=== PATIENT | female | born 1995 | race Caucasian/White ===

== ENCOUNTER 2017-03-30 09:00 | Outpatient (RCR) | payer MEDICAID, SELFPAY ==
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
--- NOTE | 2017-03-30 11:24 | BH.MTP_ITS ---
Master Treatment Plan - Patient Information Program Physician:: Elba Wong Primary Therapist:: Rachele Rehman - Psychiatric Diagnoses Psychiatric Diagnoses:: Bipolar disorder; PTSD; Anxiety unspecified Diagnosis Code(s):: F 31.9 - Estimated LOS Estimated LOS (in weeks):: 6 Problem/Goal #1 - Problem/Goal #1 Stated Goal:: Client will increase mood stability, decrease depressive symptoms , and agitation through Intensive Outpatient Program. Description of Barriers: Client reports low energy and motivation, difficulty concentrating, and anhedonia that impacts client's mood and engagement in activities client once enjoyed. Client reports multiple stressors such as her current living situation, , and unemployment which exacerbate anxiety and depression. Additionally, client is newly sober and reports few social supports-outside of her mother- and lack of transportation. Functional Impact: Client reports her symptoms are interfering with her ability to function at her baseline as client endorses a depressed which has gotten worse over the past month with anhedonia, decreased energy, difficulty concentrating. Client reports she experiences daily irritability and feels like she is in a fog. Client reports passive suicidal thoughts, with the most recent being about two weeks ago. Client endorses anxiety, ruminations, and panic attacks associated with PTSD. Client is currently unemployed and living at [facility]. Goal Relevant Strengths/Supports: Client is currently connected with numerous supports at [facility] and is activity seeking independent housing. 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 Client presents with good insight to warning signs and triggers for depression and brayan. Client identifies her mother as a positive support and protective factor. Client reports someday she would like to return to school to work with animals which demonstrates goal and future orientation. Therapist observed client to be resilient and intelligent. - Objectives Objective #1 Stated Objective: Client will identify and replace 2-3 negative thinking patterns that exacerbate depression. Interventions: Therapist will help client gain awareness of negative thinking patterns by teaching client the common types of cognitive distortions and basics of CBT. Therapist will assist client in challenging and reframing unhelpful thinking patterns to reduce depression. Discharge Criteria: Client will have accomplished this goal when can identify and replace at least 2 negative thinking patterns and report reduced depression. Target Date: 05/11/17 Review Date: 04/27/17 Status: open Objective #2 Stated Objective: Client will identify 2-3 physical warning signs of anger and 3 ways to calm and manage anger. Interventions: Therapist will help client gain awareness of anger warning signs and triggers by exploring physiological and psychological symptoms. Therapist will educate client on the connection between thoughts, emotions, and behaviors. Therapist will teach client coping strategies including thought challenge and calming techniques. Discharge Criteria: Client will have met this goal when can report at least 2 warning signs for anger and 3 coping skills to regulate anger. Target Date: 05/11/17 Review Date: 05/11/17 Status: open Problem/Goal #2 - Problem/Goal #2 Stated Goal:: Client will reduce overall frequency, intensity, and duration of anxiety so that daily functioning is not impaired. Description of Barriers: Client reports low energy and motivation, difficulty concentrating, and anhedonia that impacts client's mood and engagement in activities client once enjoyed. Client reports multiple stressors such as her current living situation, , and unemployment which exacerbate anxiety and depression. Additionally, client is newly sober and reports few social supports-outside of her mother- and lack of transportation. Functional Impact: Client reports her symptoms are interfering with her ability to function at her baseline as client endorses a depressed which has gotten worse over the past month with anhedonia, decreased energy, difficulty concentrating. Client reports she experiences daily irritability and feels like she is in a fog. Client reports passive suicidal thoughts, with the most recent being about two weeks ago. Client endorses anxiety, ruminations, and panic attacks associated with PTSD. Client is currently unemployed and living at [facility]. Goal Relevant Strengths/Supports: Client is currently connected with numerous supports at [facility] and is activity seeking independent housing. 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 Client presents with good insight to warning signs and triggers for depression and brayan. Client identifies her mother as a positive support and protective factor. Client reports someday she would like to return to school to work with animals which demonstrates goal and future orientation. Therapist observed client to be resilient and intelligent. - Objectives Objective #1 Stated Objective: Client will identify 2-3 anxiety triggers and warning signs and 2 coping skills to use when feeling anxious. Interventions: Therapist will encourage client to use self-awareness strategies to gain insight to warning signs and triggers. Therapist will teach client calming, CBT, and solution-focused strategies to reduce anxiety and challenge ruminative thoughts. Discharge Criteria: Client will have met this goal when can identify at least 2 triggers or warning signs and 2 ways to cope with anxiety Target Date: 05/11/17 Review Date: 04/27/17 Status: open
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
--- NOTE | 2017-03-30 15:13 | BH.SGPN ---
Service Group Progress Note - Session Psychotherapy Session #2 Date Open:: 03/30/17 Time Started:: 10:15 Time Stopped:: 11:10 Targeted Problem #:: 1 Type of Group:: Illness Management Goal of Group:: The goal of group was to identify a goal for the weekend, explore the potential barriers to achieving that set goal, and identify strategies to overcome barriers. Eye Contact:: Fair Motor Activity:: Restless Appearance:: Casual Speech:: Appropriate Mood:: Anxious, Irritable, Depressed Affect:: Constricted Thoughts:: Linear, Logical, No evidence of hallucinations/delusions noted Staff Interventions:: Therapist facilitated group activity in which group members identified a goal to work on over the next week. Therapist asked group members to identify barriers to achieving identified goal and strategies to help them achieve their goal. Therapist led group in processing their goal maps, assisting clients with establishing SMART goals. Therapist provided support by using reflective listening. Psychotherapy Session #3 Date Open:: 03/30/17 Time Started:: 11:20 Time Stopped:: 12:15 Targeted Problem #:: 1 Type of Group:: Functional Skills Development Goal of Group:: The goal of group was to identify a goal for the weekend, explore the potential barriers to achieving that set goal, and identify strategies to overcome barriers. Eye Contact:: Fair Motor Activity:: Appropriate Appearance:: Casual Speech:: Appropriate Mood:: Anxious, Irritable, Depressed Affect:: Constricted Thoughts:: Linear, Logical, No evidence of hallucinations/delusions noted Staff Interventions:: Therapist facilitated group activity in which group members identified a goal to work on over the next week. Therapist asked group members to identify barriers to achieving identified goal and strategies to help them achieve their goal. Therapist led group in processing their goal maps, assisting clients with establishing SMART goals. Therapist provided support by using reflective listening.
--- NOTE | 2017-03-31 10:35 | BH.COMM ---
Communication Note - Communication with Client Communication Note: This therapist received a return phone call from client as she no called no showed for IOP today. Client reported she missed group due to client oversleeping and feeling ill. Client stated she will be at [facility] on 03/31/17. Client unable to see [facility] psychiatrist today as client did not show for scheduled session.
--- NOTE | 2017-04-03 15:21 | BH.COMM ---
Communication Note - Communication with Client Communication Note: This therapist received a phone call from client in which client cancelled her IOP appointment today. Client reported she has pneumonia and will be spending the day resting. Client to follow up with therapist later this week to provide updates on client's well-being and scheduling for IOP.
--- NOTE | 2017-04-06 15:22 | BH.COMM ---
Communication Note - Communication with Client Communication Note: This therapist received a phone call from client in which client reported a new stressor which impacts client's treatment and medications. Therapist provided emotional validation and support and encouraged client to attend IOP tomorrow to meet with AC to follow up on medication issues and concerns. Client agreed to attend group on 04/07/17.
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
--- NOTE | 2017-04-07 14:06 | BH.DR.ITP ---
Initial Treatment Plan - Patient Information Visit Information: ADMISSION DATE: EXPECTED LOS: 4-6 weeks Diagnoses:: Bipolar disorder F 31.9 - Problems/Symptoms Symptom:: Mood instability Symptom:: Depression, decreased energy, biologic disruption of sleep and appetite, suicidal ideation Problem #2:: Anxiety Symptom:: Rumination, hypervigilance, intrusive traumatic memories,
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
--- NOTE | 2017-04-10 10:01 | BH.COMM ---
Communication Note - Communication with Client Communication Note: This therapist called client as she no called/no showed for IOP today. Client reported she went out of town this weekend and forgot to call to cancel for today. Client to follow up with therapist tomorrow on scheduling for the week.
--- NOTE | 2017-04-11 12:35 | BH.COMM ---
Communication Note - Communication with Client Communication Note: This therapist spoke with client on the phone to discuss IOP scheduling for the week. Client shared she plans to be back to IOP this and Monday04/13/17 and 04/14/17. Client reported she would like to touch base on community resources when she returns.
[2017-06-16 14:39] VITALS: BP 98/56; PULSE 62; RESP 14; TEMP 36.8
== END 2017-04-12 23:59 ==
LOC: BHIOP 09:00
PROVIDERS: Family Provider Internal Medicine; PCP Internal Medicine; Visit Provider Psychiatry & Neurology Psychiatry
DX: F31.9 Bipolar disorder, unspecified (principal); F43.10 Post-traumatic stress disorder, unspecified; F41.9 Anxiety disorder, unspecified; F11.21 Opioid dependence, in remission; F10.21 Alcohol dependence, in remission; F17.210 Nicotine dependence, cigarettes, uncomplicated; Z79.899 Other long term (current) drug therapy; R45.851 Suicidal ideations
CPT/HCPCS: 99204; H0035; H2012; T1002; 90834

== ENCOUNTER 2017-04-13 09:00 | Outpatient (RCR) | payer MEDICAID, SELFPAY ==
[2016-12-07 12:11] VITALS: BMI 20.4
[2016-12-07 17:06] VITALS: BP 104/66
--- NOTE | 2017-04-13 10:34 | BH.MDN ---
Multi-Disciplinary Note - Note 30-min Individual Time Started:: 10:07 Date: 04/13/17 Purpose of session/treatment goals addressed:: The purpose of this session was to address client's current stressors and provide resources to best support client as client reports multiple stressors. Another goal was to encourage self-determination, address substance use urges, and develop a plan for the week. Eye Contact:: Good Motor Activity:: Restless - Client reports stomach pains due to . Appearance:: Disheveled Speech:: Soft Mood:: Anxious, Irritable, Other - fatigued Affect:: Constricted Thoughts:: Linear, No evidence of hallucinations/delusions noted Staff Interventions:: Therapist used open-ended questions to explore client's current mood, stressors, and concerns. Therapist helped client process and explore ambivalence on decisions for using a pros and cons list and scaling questions. Therapist provided client with community and medical resources for , adaption, and raising a child while encouraging self-determination. Therapist helped client create a plan to manage substance use urges and encouraged client to follow up with her OB for pain concerns. Therapist used active-listening and emotional support as client expressed feeling overwhelmed and frustrated. Client Response:: Client responded well to session, open to meeting with therapist. Client reported she continues to have conflicting feeling about her as client shared I know I have more cons than pros, but I'm getting pressured. Client processed her conflicting emotions with therapist and identified additional supports client can utilize to process emotions such as supports at [facility] who listen to me without judging me. Client was receptive to the resources provided by therapist and stated she has an appointment with her OBGYN on Monday. Client expressed concerns that this is negatively impacting her mental and physical health. Client shared she has been having increased urges to use from the stress and pain. Client reported she has also been in a funk and having nightmares, and feeling agitated as client in unable to take her medications. Client and therapist discussed options for case management, housing, and employment services that may reduce some of clients stress and promote self-efficacy. Client reported she has a meeting with [facility] Monday04/17/17 to follow up with housing. Client explored strategies and supports to help client manage her urges to use substances. Client stated she wants to go to two meetings tomorrow as the meetings help client feel supported and motivated. Risks/Concerns:: Client denies suicidal ideation, plan, and intent as of 04/13/17. Client reports having increased urges to use due to , stress, and pain which presents as a risk for relapse. Client agreed to contact therapist should she have urges to use today. Client to attend an NA meeting tomorrow as well as a recovery meeting at [facility] to promote healthy coping and prevent relapse. Progress Toward Goals/Plan:: Client progress limited as clients current is creating increased anxiety, urges to use, pain, and internal conflict. Client acknowledges it is difficult for client to focus on improving coping skills and mental health during this time as clients main priority is crisis management and basic needs. However, client was receptive to resources provided and agreed to follow up with OB and housing services. Client agreed to call therapist should she get urges to use today and agreed to attend a NA meeting tomorrow. Therapist to contact clients outpatient provider for continuity of care. Time Stopped:: 10:30
--- NOTE | 2017-04-13 11:32 | BH.MDN_ITS ---
Multi-Disciplinary Note - Note 30-min Individual Time Started:: 10:07 Date: 04/13/17 Purpose of session/treatment goals addressed:: The purpose of this session was to address client's current stressors and provide resources to best support client as client reports multiple stressors. Another goal was to encourage self- determination, address substance use urges, and develop a plan for the week. Eye Contact:: Good Motor Activity:: Restless - Client reports stomach pains due to . Appearance:: Disheveled Speech:: Soft Mood:: Anxious, Irritable, Other - fatigued Affect:: Constricted Thoughts:: Linear, No evidence of hallucinations/delusions noted Staff Interventions:: Therapist used open-ended questions to explore client's current mood, stressors, and concerns. Therapist helped client process and explore ambivalence on decisions for using a pros and cons list and scaling questions. Therapist provided client with community and medical resources for , adaption, and raising a child while encouraging self- determination. Therapist helped client create a plan to manage substance use urges and encouraged client to follow up with her OB for pain concerns. Therapist used active-listening and emotional support as client expressed feeling overwhelmed and frustrated. Client Response:: Client responded well to session, open to meeting with therapist. Client reported she continues to have conflicting feeling about her as client shared I know I have more cons than pros, but I'm getting pressured. Client processed her conflicting emotions with therapist and identified additional supports client can utilize to process emotions such as supports at [facility] who listen to me without judging me. Client was receptive to the resources provided by therapist and stated she has an appointment with her OBGYN on Monday. Client expressed concerns that this is negatively impacting her mental and physical health. Client shared she has been having increased urges to use from the stress and pain. Client reported she has also been in a funk and having nightmares, and feeling agitated as client in unable to take her medications. Client and therapist discussed options for case management, housing, and employment services that may reduce some of client?s stress and promote self-efficacy. Client reported she has a meeting with [facility] Monday04/17/17 to follow up with housing. Client explored strategies and supports to help client manage her urges to use substances. Client stated she wants to go to two meetings tomorrow as the meetings help client feel supported and motivated. Risks/Concerns:: Client denies suicidal ideation, plan, and intent as of . Client reports having increased urges to use due to , stress, and pain which presents as a risk for relapse. Client agreed to contact therapist should she have urges to use today. Client to attend an NA meeting tomorrow as well as a recovery meeting at [facility] to promote healthy coping and prevent relapse. Progress Toward Goals/Plan:: Client progress limited as client?s current is creating increased anxiety, urges to use, pain, and internal conflict. Client acknowledges it is difficult for client to focus on improving coping skills and mental health during this time as client?s main priority is crisis management and basic needs. However, client was receptive to resources provided and agreed to follow up with OB and housing services. Client agreed to call therapist should she get urges to use today and agreed to attend a NA meeting tomorrow. Therapist to contact client?s outpatient provider for continuity of care. Time Stopped:: 10:30
--- NOTE | 2017-04-13 14:25 | BH.COMM ---
Communication Note - Communication with Client Communication Note: This therapist attempted to call client's outpatient provider to collaborate on client care and services. Therapist unable to reach outpatient provider and left a message.
--- NOTE | 2017-04-13 14:40 | BH.SGPN ---
Service Group Progress Note - Session Psychotherapy Session #1 Date Open:: 04/13/17 Time Started:: 09:00 Time Stopped:: 10:00 Type of Group:: Process - 5 group members Goal of Group:: The goal of today's group was to check-in with client's mood, stressors, and positives, review homework and introduce topic for the day. Client Response/Progress/Benefit:: Pt provided feedback at times to peers and engaged in group conversations, however declined to check-in. Was attentive during the group. Limited progress noted. Continued treatment to prevent decompensation, decrease depressive symptoms, and stabilize mood. Eye Contact:: Poor Motor Activity:: Appropriate Appearance:: Disheveled Speech:: Appropriate Mood:: Irritable, Depressed Affect:: Flat Thoughts:: Linear, Logical, No evidence of hallucinations/delusions noted Staff Interventions:: Therapist used open-ended questions to elicit information about client's current stressors and mood state. Therapist was supportive by using active listening and reflection
--- NOTE | 2017-04-13 15:47 | BH.SGPN ---
Service Group Progress Note - Session Psychotherapy Session #3 Date Open:: 04/13/17 Time Started:: 11:17 Time Stopped:: 12:07 Targeted Problem #:: 1 Type of Group:: Functional Skills Development - 5 participants Goal of Group:: The goal of group was to increase understanding of the different types of social support. Another goal was to identify one type of support the clients desire and establish one small step towards achieving that support. Client Response/Progress/Benefit:: Client willing to attend session in semi-attentive throughout. At various moments during discussion portion client appearing disengaged her distracted by herself and her own thoughts. Client indicated connecting with discussion reviewing potential barriers to utilizing social supports. She indicated that self judgment and side responsibilities have impacted her ability to utilize resources in the past and therefore makes her hesitant to do so moving forward. She appeared to benefit from identifying various ways to overcome some of these barriers. This was evidenced by client nodding her head and taking notes throughout as well as providing some input to discussion. Client displaying progress in her ability to make connections with treatment concepts discussed and beginning to open up and interact more in group setting. Client continues to struggle with managing her emotions and dealing with current stressors. Ongoing IOP is recommended to continue to work with client on identifying effective means for coping and challenging distorted thinking patterns. Eye Contact:: Fair Motor Activity:: Appropriate Appearance:: Casual Speech:: Appropriate Mood:: Anxious, Dysthymic Affect:: Constricted Thoughts:: Linear, Logical, No evidence of hallucinations/delusions noted Staff Interventions:: Therapist facilitated group discussion on the different types of social support and importance of each type of support. A worksheet titled Plan for Seeking Support, was utilized to give clients direction in identifying which type of support they desired and identifying the first small step towards the desired support. Therapist provided homework for each group member to try and accomplish the one small step each group member identified on the worksheet.
--- NOTE | 2017-04-14 11:18 | BH.COMM ---
Communication Note - Communication with Client Communication Note: Therapist called client as she no called/ no showed for scheduled IOP appointment today. Client cancelled and shared she is sick. Client stated she was unsure what days to schedule for next week. Therapist attempted to contact client this afternoon to follow up, but was unable to reach client. Therapist left a message.
--- NOTE | 2017-04-18 15:53 | BH.SGPN_ITS ---
Service Group Progress Note - Session Psychotherapy Session #3 Date Open:: 04/13/17 Time Started:: 11:17 Time Stopped:: 12:07 Targeted Problem #:: 1 Type of Group:: Functional Skills Development - 5 participants Goal of Group:: The goal of group was to increase understanding of the different types of social support. Another goal was to identify one type of support the client?s desire and establish one small step towards achieving that support. Client Response/Progress/Benefit:: Client willing to attend session in semi- attentive throughout. At various moments during discussion portion client appearing disengaged her distracted by herself and her own thoughts. Client indicated connecting with discussion reviewing potential barriers to utilizing social supports. She indicated that self judgment and side responsibilities have impacted her ability to utilize resources in the past and therefore makes her hesitant to do so moving forward. She appeared to benefit from identifying various ways to overcome some of these barriers. This was evidenced by client nodding her head and taking notes throughout as well as providing some input to discussion. Client displaying progress in her ability to make connections with treatment concepts discussed and beginning to open up and interact more in group setting. Client continues to struggle with managing her emotions and dealing with current stressors. Ongoing IOP is recommended to continue to work with client on identifying effective means for coping and challenging distorted thinking patterns. Eye Contact:: Fair Motor Activity:: Appropriate Appearance:: Casual Speech:: Appropriate Mood:: Anxious, Dysthymic Affect:: Constricted Thoughts:: Linear, Logical, No evidence of hallucinations/delusions noted Staff Interventions:: Therapist facilitated group discussion on the different types of social support and importance of each type of support. A worksheet titled ?Plan for Seeking Support?, was utilized to give clients direction in identifying which type of support they desired and identifying the first small step towards the desired support. Therapist provided homework for each group member to try and accomplish the one small step each group member identified on the worksheet.
--- NOTE | 2017-04-18 16:22 | BH.COMM ---
Communication Note - Communication with Client Communication Note: Therapist spoke with client on the phone to follow up as client has been sick and missed group her last scheduled day, 04/15/17. Client reported she plans to return to group this Monday04/21/17 as client is out of town until . Client agreed to call therapist should her schedule change. Therapist encouraged consistent attendance to promote most effective gains from the program
--- NOTE | 2017-04-21 14:29 | BH.COMM ---
Communication Note - Communication with Client Communication Note: Therapist called client to follow up on client's plan for participation in IOP as client has not been to group since 04/13/17. Client did not answer and therapist left a message explaining protocol for attendance and discharge. Therapist to discharge client Monday04/24/17 if no communication from client by then.
--- NOTE | 2017-04-24 12:10 | BH.MDN ---
Multi-Disciplinary Note - Note 30-min Individual Time Started:: 11:05 Date: 04/24/17 Purpose of session/treatment goals addressed:: The purpose of this session was to address client's current symptoms, stressors, conflicting emotions, and barriers. Another goal was to set small goals for the week to reduce isolation and depressive symptoms. Other topics included: grief and substance use urges. Eye Contact:: Fair Motor Activity:: Restless - playing with a tissue in her hand Appearance:: Casual Speech:: Appropriate Mood:: Irritable, Dysthymic Affect:: Constricted Thoughts:: Linear, No evidence of hallucinations/delusions noted Staff Interventions:: Therapist used active listening and open-ended questions to explore client's current stressors, barriers, and symptoms. Therapist helped client process and verbalize conflicting emotions brought on by current stressors. Therapist assisted client in setting small self-care goals for the week to reduce depression. Therapist assessed risk factors for substance use and encouraged client to continue attending NA meetings. Therapist used strengths perspective to empower client on her positive traits such as resiliency. Client Response:: Client open to meeting with therapist, tearful throughout. Client reported she feels conflicted about her recent . Client stated, I know it was probably the right thing to do, but I just felt so rushed. Client shared she felt pressured by her ex-boyfriend, her mother, and from outside providers as well. Per client's report she was told she could not receive the housing client was applying for if she had a child. Client processed her disappointment, grief, and anger towards her ex-boyfriend and the loss of her baby. Client stated she has been experiencing increased depressive symptoms and isolation. Client shared she is frustrated with being stuck in the [facility]ci all day which increases anxiety and depression. Client reported she has been having urges to use, but so far has been able to successfully manage the urges. Client shared she plans to attend NA meetings this week to gain additional support. Client was receptive to implementing small self-care goals this week as client shared I'm not doing the things I used to. Client and therapist discussed the benefits of self-care and physical regulation. Client agreed to put on makeup daily to increase self-confidence and promote self-care. Client to follow up with therapist on outpatient appointments and scheduling. Risks/Concerns:: Client denies suicidal ideation, plan, and intent as of 04/24/17. Client report her current pain levels are increasing urges to use substances. Client reports she has been able to talk myself out of it and plans to attend a recovery group tomorrow. Progress Toward Goals/Plan:: Client making limited progress towards treatment goals as client has had multiple external stressors, inconsistent attendance, and loss. However, client is demonstrating progress with maintaining sobriety and reaching out to professional supports. Client to continue IOP to prevent decompensation, increase mood stability, and develop social supports. Client to follow up with [facility] for housing and counseling appointments respectfully. Client agreed with plan to work on self-care strategies this week. Time Stopped:: 11:40
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
--- NOTE | 2017-04-26 14:43 | BH.COMM ---
Communication Note - Communication with Client Communication Note: Therapist received a phone call from client as client was feeling increased anxiety over a current housing stressor. Therapist used active-listening and helped client reframe negative thoughts. Client reported plan to attend group tomorrow 04/27/17.
--- NOTE | 2017-04-26 14:46 | BH.COMM_ITS ---
Communication Note - Communication with Client Communication Note: Therapist received a phone call from client as client was feeling increased anxiety over a current housing stressor. Therapist used active -listening and helped client reframe negative thoughts. Client reported plan to attend group tomorrow 04/27/17.
--- NOTE | 2017-04-27 14:36 | BH.TPR ---
Treatment Plan Review Date of Admission:: 03/30/17 Date of Treatment Plan Review:: 04/27/17 Admitting Diagnoses:: Bipolar disorder F31.9; PTSD; Anixety unspecified. Current Diagnoses:: Bipolar disorder F31.9; PTSD; Anixety unspecified. Patient's Response to Treatment:: Client appears to be responding somewhat well to IOP as she has had inconsistent attendance, but reports being in group is really good for me. Client continues to report barriers with implementation of healthy coping skills as well as maintaining changes. Client shared she enjoys meeting individually, but shared it is hard for client to open up during group as client reports belief people will think I'm crazy. Client was during her last appointment with [facility] which hindered client's ability to take medications. Client has demonstrated progress as she continues to show resiliency and determination to better her situation despite multiple hardships. Status of Current Problems and Symptoms: Client's recent psychosocial stressors significantly impacted her engagement in IOP and overall emotional well-being. Client continues to report a depressed mood, anhedonia, agitation, anger, low motivation, poor sleep, and negative thoughts. Client continues to struggle with maladaptive maintenance cycles and maintaining change. Client showing progress with increases communication with supports and utilizing self-care. Most importantly, client continues to demonstrate resiliency despite hardships and has been consistent with communicating to IOP therapist. Problem #1 Problem Name:: Client will increase mood stability and decrease depression Status of Goals:: Client has not yet accomplished this goal as she has had multiple stressors and barriers that have impacted client's ability to attend group, utilize medication, and implement healthy coping skills. Client has demonstrated progress with following up with medical appointments and challenging negative thinking. Client and therapist currently working on processing grief and identifying healthy ways to manage anger. Team Recommendations:: Client to continue working on treatment goal as some of her stressors have resolved which may positively impact client's engagement in treatment. Client showing progress with identifying warning signs and negative thoughts, but can continue to benefit from processing grief. Client encouraged to continue sobriety and attending NA. Client to follow up with outpatient provider and case management services for basic needs and employment. Problem #2 Problem Name:: Client will reduce overall frequency and intensity of anxiety Status of Goals:: Client has shown limited progress towards treatment goals as she continues to report anxiety, but has increased awareness of warning signs. Client reports she has been utilizing healthy coping skills such as self-care and talking to supports which demonstrates progress. Recent stressors have negatively impacted client's ability to implement skills and engage in treatment. Client and therapist currently working on identifying warning signs and implementing healthy coping skills. Team Recommendations:: Client to continue working on treatment goals as she has increased insight to warning signs, but continues to struggle with implementation. Client to continue with outpatient counseling and increase attendance in IOP and AOD support groups. Therapist to help client identify positive supports, coping skills, and warning signs for brayan as well.
--- NOTE | 2017-04-28 10:31 | BH.COMM ---
Communication Note - Communication with Client Communication Note: This therapist called client as she no called/no showed for her scheduled IOP appointment today. Client reported she was unable to get a ride this morning and forgot to cancel. Client was receptive to therapist connecting client to transportation services through the hospital. Client reports plan to attend IOP on 05/03/17.
--- NOTE | 2017-04-30 11:59 | BH.SGPN_ITS ---
Service Group Progress Note - Session Psychotherapy Session #3 Date Open:: 04/27/17 Time Started:: 11:13 Time Stopped:: 12:03 Targeted Problem #:: 1 Type of Group:: Functional Skills Development Goal of Group:: The goal of group was to identify a goal for the weekend, explore the potential barriers to achieving that set goal, and identify strategies to overcome barriers. Client Response/Progress/Benefit:: Pt contributed to discussion and listened attentively to others. Pt identified her goal is to attend AA meetings at least 3 times a wek and read her mediation book daily. Pt identified potential barriers include: not feeling well, negative thoughts, and toxic relationships. Pt identified things that can support her in accomplishing her goal include: calling support people, working the 12 steps, prayer, putting God first, and getitng a sponser. Pt shared this goal is important to her because she wants to maintain her sobriety and have mood stability. Seemed to benefit from identifying specific steps that will help her accomplish her goal. Eye Contact:: Fair Motor Activity:: Appropriate Appearance:: Casual Speech:: Appropriate Mood:: Irritable, Depressed Affect:: Constricted Thoughts:: Linear, Logical, No evidence of hallucinations/delusions noted Staff Interventions:: Therapist facilitated group activity in which group members identified a goal to work on over the next week. Therapist asked group members to identify barriers to achieving identified goal and strategies to help them achieve their goal. Therapist led group in processing their goal maps , assisting clients with establishing SMART goals. Therapist provided support by using reflective listening.
--- NOTE | 2017-05-01 14:29 | BH.COMM ---
Communication Note - Communication with Client Communication Note: This therapist sent client's outpatient provider, Dr. Anne Germain, a fax of client's release of information. Therapist also spoke on the phone with Dr. Germain for continuity of care purposes and to discuss scheduling.
--- NOTE | 2017-05-02 15:50 | BH.COMM ---
Communication Note - Communication with Client Communication Note: This therapist spoke on the phone with client to discuss updates, scheduling, and coordination of care. Client reported to therapist she has been feeling very overwhelmed and is no longer living at [facility]. Client is staying with her mother and reports feeling safe there. Client reported plan to attend group tomorrow 05/03/17 and 05/04/17. Therapist addressed client's treatment concerns as well as attendance for IOP.
--- NOTE | 2017-05-03 14:56 | BH.SGPN_ITS ---
Service Group Progress Note - Session Psychotherapy Session #2 Date Open:: 05/03/17 - 10 group members Time Started:: 10:25 Time Stopped:: 11:19 Targeted Problem #:: 1 Type of Group:: Illness Management Goal of Group:: To increase understanding of what conflict is and increase awareness of how group members manage conflict. Client Response/Progress/Benefit:: Client responded well to session, engaging in discussion occasionally. Client connected with the quote sharing ?there?s always conflict in life.? Client identified she utilizes the aggressive type when dealing with conflict. Client shared she often gets frustrated with people and ?blows up.? Client appeared to have awareness of how this type of style could be harmful to client?s mental health and relationships as she said ?I know I can?t be this way though because I will always have to work with people. ? Client appeared to benefit from increases awareness of ways to appropriately manage conflict. Client progressing as shown by her increased engagement in group, but continues to struggle with consistency in attendance which could hinder progress. Eye Contact:: Fair Motor Activity:: Appropriate Appearance:: Casual Speech:: Appropriate Mood:: Irritable Affect:: Constricted Thoughts:: Linear, No evidence of hallucinations/delusions noted Staff Interventions:: Therapist facilitated discussion about conflict and conflict resolution. Therapist led group in an activity in which group members had to identify their initial response to conflict and how their response changes based on different situations. Therapist assisted clients with connecting the impact current conflict style has on their mental health. Psychotherapy Session #3 Date Open:: 05/03/17 - 9 group members Time Started:: 11:25 Time Stopped:: 12:15 Targeted Problem #:: 1 Type of Group:: Functional Skills Development Goal of Group:: To identify what contributes positively and negatively to conflict and appropriate ways to manage conflict with others. Client Response/Progress/Benefit:: Client responded well to session, active participant in activity. Client reported the group was successful because ?we listened to each other and had a good time.? Client helped the group develop strategies to improve conflict resolution skills. Client stated it is important to know personal warning signs, know when to take a break, and remember to breathe. Client appeared to benefit from increased awareness of ways to effectively manage conflict. Client seems to be progressing with increasing insight to her warning signs and maladaptive coping skills, but can continue to benefit from implementing impulse control strategies to manage anger. Eye Contact:: Good Motor Activity:: Appropriate Appearance:: Casual Speech:: Appropriate Mood:: Euthymic Affect:: Full Thoughts:: Linear, No evidence of hallucinations/delusions noted Staff Interventions:: Therapist facilitated group activity in which group members were provided with materials and had to eliminate certain items with consensus from group. Therapist processed activity, helping clients connect throughout activity strategies each person used to manage conflict. Therapist led discussion about what contributes to conflict in a positive or negative manner. Therapist facilitated discussion about conflict resolution strategies and provided group member with a handout about effective ways to manage conflict.
--- NOTE | 2017-05-04 10:52 | BH.COMM ---
Communication Note - Communication with Client Communication Note: Therapist followed up with client to addressed current stressors and provide resources for case management in the area. Client reported belief case management would be beneficial for her at this time. Therapist also encouraged client to continue attending NA meetings for substance recovery support.
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
--- NOTE | 2017-05-05 12:28 | PCM.PN.BLA ---
Progress Note Patient is seen in follow-up for bipolar disorder of 31.9, PTSD, anxiety unspecified, and substance use by history. History is been obtained per interview with patient, discussion with staff, review of chart. Case discussed with treatment team. Chief complaint-been really depressed and tired. Interim history Status post 2 doses of misoprostol for EAB. Scheduled for D&C this morning for retained products. Increased depression and crying over the past 2 weeks. Port urges for reckless behavior including seeking sexual partners and consumption of alcohol. Irritable. Intermittent passive suicidal thoughts. No suicide plan or intent. Feels able to maintain safety. Remains forward thinking and applying for jobs. No homicidal ideation. No symptoms consistent with psychosis. Sleep disrupted. Sleeping from 3 AM to 8 AM. Appetite normal. Reports constipation. Notes nausea and vomiting associated with misoprostol. None since. Denies ingestion of alcohol. Smoking less than one half pack cigarettes per day. Denies illicit drug use. Has remained on Topamax 200 nightly, gabapentin 600 3 times daily, and clonidine 0.1 mg 3 times daily. Feels gabapentin and clonidine helpful. Uncertain of the effectiveness of Topamax. Reviewed psychiatric history. Side effects to multiple medications. Unable to tolerate Trileptal, lithium, Tegretol, Depakote, Seroquel, Abilify, Latuda, Risperdal, Prozac and Zoloft. Mental status exam Patient is a 22-year-old female who appears her stated age. She is alert and oriented in no acute distress. She is ambulatory with normal gait and station. She is casually dressed and groomed. Good hygiene. Cooperative with the interview. Good eye contact. Mild psychomotor retardation. Mood depressed. Affect congruent. Speech is clear and of regular rate and volume. Language fluent. Thought process organized. Associations logical. Thought content significant for ruminative anxiety. Passive intermittent thoughts of . No suicide plan or intent. Feels able to maintain safety. No homicidal ideation related to detected. No evidence of psychosis related to detected. Immediate recent and remote memory grossly intact. Attention and concentration are fair. Estimated intelligence and fund of knowledge average. Judgment and insight are fair. Diagnosis Bipolar disorder of 31.9 PTSD Anxiety unspecified Opiate use disorder in remission Alcohol use disorder remission Stimulant use disorder history 2014 remission Nicotine use disorder Status post EAB-scheduled for D&C today Plan Continue IOP as the structured setting is necessary to prevent decompensation. Patient has ongoing stressors and will likely benefit from ongoing IOP treatment. Risks benefits alternatives of medications discussed with patient. Patient acknowledges understanding. Start Lamictal 25 mg p.o. daily for 2 weeks increase to 50 mg p.o. daily for 2 weeks then 75 mg p.o. daily. Prescription provided. Continue Topamax 200 nightly. Continue gabapentin 600 mg p.o. 3 times daily. Continue clonidine 0.1 mg 3 times daily. Lab work will be obtained as needed. Encouraged to establish with outpatient psychiatric providers for when IOP complete. 20 minutes of Insight oriented and supportive psychotherapy provided. Allergies understanding and is in agreement with plan. She feels able to maintain safety. She agrees to seek help or emergency care if feeling unsafe to self or others.
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
--- NOTE | 2017-05-09 16:01 | BH.COMM ---
Communication Note - Communication with Client Communication Note: This therapist received a call from one of client's outpatient providers regarding medication management and updates. Therapist informed the provider of recent medication changes.
--- NOTE | 2017-05-10 10:58 | BH.COMM ---
Communication Note - Communication with Client Communication Note: Therapist attempted to contact client's mother to follow up on scheduling as client's phone is shut off. Therapist unable to reach mother and the voicemail was full so therapist could not leave a message.
== END 2017-05-10 23:59 ==
LOC: BHIOP 09:00
PROVIDERS: Family Provider Internal Medicine; PCP Internal Medicine; Visit Provider Psychiatry & Neurology Psychiatry
DX: F31.9 Bipolar disorder, unspecified (principal); F43.10 Post-traumatic stress disorder, unspecified; F41.9 Anxiety disorder, unspecified; F11.23 Opioid dependence with withdrawal; F17.210 Nicotine dependence, cigarettes, uncomplicated
CPT/HCPCS: 90833; 99214; H0035; H2012; 90832

== ENCOUNTER 2017-04-14 17:23 | Emergency (ER) | payer MEDICAID, SELFPAY ==
[2017-04-14 17:25] VITALS: BP 115/68; PULSE 88; RESP 16; TEMP 36.6; O2SAT 100; BMI 19.8
--- NOTE | 2017-04-14 17:54 | ED.DCSUM_ITS ---
- ER Visit Summary Date of Service: 04/14/17 Chief Complaint: [] Weakness History of Present Illness: The patient is a 22 F [] complaining of flulike symptoms during the peak of flu season. Patient reports she is 67 weeks . Patient reports waking from her nap with slight numbness to her face and upper extremities. She reports that feeling has resolved. She reports she is concerned why her flulike symptoms have lasted 3 weeks. Denies fevers. Denies dysuria. Denies vaginal bleeding. Denies abdominal pain. No other complaints at this time. Physical Examination: [] Afebrile, vital signs stable. Young female in no acute distress. Cardiovascular exam is regular rate and rhythm. Lungs are clear to auscultation. Abdomen is soft and nontender. Test Results: [] CBC, BMP reveals a potassium low at 3.2. Otherwise normal. Chest x-ray negative. Emergency Department Course and Treatment: [] Patient was given a KCl tablet for hypokalemia. Her hypokalemia may explain some of her numbness. She was given a short-term prescription for KCl tablets # 10. She was encouraged to follow-up with her PATIENT CASE MANAGER or PCP. Treatment Plan: [] Follow-up with primary care physician. Disposition: [] Discharge, stable. Impression: [] URI Hypokalemia This note was generated with [employer] dictation software. It may contain incorrect words, spelling, and punctuation that were not noted in review of the chart prior to signing ED Disposition - Plan for ED Patient: Chief Complaint: General Illness Referrals: Chantale Uriarte MD [Primary Care Provider] -
--- NOTE | 2017-04-14 18:11 | RAD_ITS ---
STUDY: X-RAY CHEST REASON FOR EXAM: Female, 22 years old. 2 symptoms. 6 week . TECHNIQUE: PA and lateral views of the chest. COMPARISON: November 15, 2013. FINDINGS: The lungs are clear and expanded. There is no demonstrated pleural abnormality. Normal size heart. Normal mediastinum and marjorie. Normal visualized pulmonary arteries. Normal visualized aortic arch and descending thoracic aorta. Normal visualized thoracic spine. Normal visualized ribs, clavicles, and shoulders. There is no demonstrated abnormality of the visualized soft tissue structures of the upper abdomen. RAD/Chest PA and Lateral IMPRESSION: Normal x-ray examination of the chest. There is no interval change. Electronically Signed: Sy Campoverde DO at 18:52 EST Tel [phone], Service support ,
[2017-04-14 18:13] LABS: Absolute Lymphocyte Count 2.33 X10^3/ul (0.83-4.51); Absolute Neutrophil Count 5.8 X10^3/uL (2.0-7.7); Basophil# 0.02 X10^3/uL; Basophil% 0.2 % (0-1); Eosinophil# 0.11 X10^3/uL; Eosinophils% 1.3 % (0-5); Hematocrit 35.1 % (37-47); Hemoglobin 11.9 g/dl (12.0-15.0); Lymphocyte # 2.33 X10^3/ul (4.0); Lymphocyte % 26.6 % (19-41); Mean Corp Hgb Conc 33.9 g/gl (32-36); Mean Corpuscular Hgb 31.6 pg (27.0-32.0); Mean Corpuscular Volume 93.4 fL (81-99); Mean Platelet Vol. 9.5 fl (6.2-12.0); Monocyte# 0.48 X10^3/uL; Monocyte% 5.5 % (0-10); Neutrophil # 5.81 X10^3/uL (2.7-7.7); Neutrophil % 66.2 % (47-70); Platelet Count 212 K/mm3 (150-450); RBC Distribution Width CV 13.2 % (11.6-14.6); RBC Distribution Width SD 44.7 fl (35.1-43.9); Red Blood Count 3.76 M/mm3 (4.2-5.4); White Blood Count 8.8 K/mm3 (4.4-11.0)
[2017-04-14 18:17] LABS: POSITIVE COUNT NO; POSITIVE DIFFERENTIAL NO; POSITIVE MORPHOLOGY NO
[2017-04-14 18:27] LABS: Anion Gap 8 (5-15); BUN 12 mg/dL (7-18); BUN/Creat Ratio 20.1 RATIO (10-20); Calcium,Total 8.5 mg/dL (8.5-10.1); Chloride 110 mmol/L (98-107); EST Glomerular Filtration Rate 131 mL/min (>60); Est Glom Filt Rate - Afr Amer 159 mL/min (>60); Estimated Creatinine Clearance 101.34 ml/min; Glucose 82 mg/dL (74-106); Potassium 3.2 mmol/L (3.5-5.1); Sodium Level 141 mmol/L (136-145)
--- NOTE | 2017-04-14 19:35 | ED.DEP ---
ED Disposition - Plan for ED Patient: Disposition: Home or Assisted Living Chief Complaint: General Illness Instructions: Discharge Instructions for Hypokalemia, ED Diet High Potassium Prescriptions: Potassium Chloride [K-Dur] 20 meq PO BID 10 Days #20 tab Referrals: Chantale Uriarte MD [Primary Care Provider] -
[2017-04-14 19:48] VITALS: BP 95/58; PULSE 75; O2SAT 100
== END 2017-04-14 19:52 | disposition home or self-care (01) ==
PROVIDERS: Emergency Provider Emergency Medicine; Family Provider Internal Medicine; PCP Internal Medicine
DX: O26.891 Other specified pregnancy related conditions, first trimester (principal); J06.9 Acute upper respiratory infection, unspecified; E87.6 Hypokalemia; O99.331 Smoking (tobacco) complicating pregnancy, first trimester; F17.200 Nicotine dependence, unspecified, uncomplicated; Z3A.00 Weeks of gestation of pregnancy not specified; Z90.89 Acquired absence of other organs
CPT/HCPCS: 71046; 80048; 85025; 99283; A4216

== ENCOUNTER 2017-05-04 14:00 | Outpatient (RCR) | payer MEDICAID, SELFPAY ==
--- NOTE | 2017-02-23 14:16 | HP.PTEVAL_ITS ---
Patient's Visit Information GINNY WYNNE is a 22 year old F referred to Physical Therapy by Shad Brown MD with a diagnosis of B shoulder instability, cervical spine strain. Date of Evaluation: 02/22/17 Physical Therapist: Lukas Baer - Visit Plan Frequency: 2-3x /Week Duration: 4-6 Weeks Plan: Start with scapular strengtheing exercises, GH stability exercises, soft tissue to bilateral UT and levator scapulea region, Postural awareness exercises. May use modalities to reduce symptoms. - Subjective Subjective: Pt. is here for her initial evalution with diagnosis of L and R shoulder instability and neck muscle strain. Pt. is a plesant 22 y.o. female who is known to this PT. She was evaluated ~5 months ago for similar symptoms, but had to go out of town. She was hopeful to be treated while there but was unfortunately not able. She continues to have similar issues. Pt. reports symptoms have not worsed, but are still there. She reports increased pain in all positions there is no position of relief. Increased pain: lifting, reaching , shoulder abduction (L side), reading, driving, and most ADLs. Decreases pain: heat, nothing else. Pt. did have recent injection in bilateral shoulders- pt. reports no relief yet. She reports self manipulating cervical spine frequently as well. Pt. denies N/T, but has pain generally throughout bilateral shoulders, UT and cervical spine. She has not had any recent imaging. She does have a history of L shoulder SAD, but reports no relief with this. She reports having grinding in bilateral shoulder with abduction and overhead motions. Pt. is hopeful to reduce symptoms in order to start working again and have improved quality of life. - Pain R shoulder Pain Intensity (Out of 10): 6 Pain Intensity Range: 5, 10 L shoulder Pain Intensity (Out of 10): 6 Pain Intensity Range: 6, 10 cervical spine Pain Intensity (Out of 10): 6 Pain Intensity Range: 6, 10 - Objective POSTURE: Pt. has overall flexed posture while sitting and standing. Pt. has rounded shoulders, protracted scapulea bilaterally. Pt. has symetrical AC joint height. Pt. has FH positioning. PALPATION: Pt. has increased pain with palpation of bilateral UT, bilateral cervical spine erector spinea, bilateral B shoulder subacromial space, bilateral levator scapulea, and along medial boards of scapulea bilaterally. NEUROLOGICAL: Pt. has normal sensation to light and sharp touch of bilateral LEs. Pt. has 2+ biceps and triceps DTR bilaterally. Pt. has no signs of upper limb tension testing. ROM: Pt. has full ROM of bilateral shoulders, but does report increased symptoms with all overhead motions, abd worse than flexion. Pt. does have grinding feeling, but appears to be scapular restriction. Pt. has full cervical spine ROM and did not increase symptoms with testing. MMT: RUE- wrist/elbow 5/5 throughout; shoulder- flexion 4/5, abd 4/5, ER 4/5, IR 4+/5, ext 4+/5. LUE- wrist elbow 5/5 throughout; shoulder- flexion 4/5, abd 4/5, ext 4/5, IR 5-/5, ER 4/5. Pt. had increased symptoms with shoulder ER/flexion/abd testing. CERVICAL SPINE: Pt. ahd 4+/5 cervical isometrics throughout, no increase in symptoms, execpt with resistance to cervical flexion. - Special Tests C/S Radiculapathy - Left Upper limb tension test: Negative C/S Radiculapathy - Right Upper limb tension test: Negative C/S Radiculapathy - Left Spurlings: Negative C/S Radiculapathy - Right Spurlings: Negative C/S Radiculapathy - Left Cervical distraction: Negative C/S Radiculapathy - Right Cervical distraction: Negative C/S Radiculapathy - Left Relief test: Negative C/S Radiculapathy - Right Relief test: Negative Cervical Sitting: Protrusion - Mechanical Response: No effect Cervical Sitting: Protrusion - Symptoms During Testing: No effect Cervical Sitting: Protrusion - Symptoms After Testing: No effect Cervical Sitting: Retraction - Mechanical Response: No effect Cervical Sitting: Retraction - Symptoms During Testing: Increases Cervical Sitting: Retraction - Symptoms After Testing: No worse Cervical Sitting: Retraction-Extension - Mechanical Response: No effect Cerv Sitting: Retraction-Extension - Symptoms During Testing: Increases Cerv Sitting: Retraction-Extension - Symptoms After Testing: No worse Cervical Sitting: Sidebend Right - Mechanical Response: No effect Cervical Sitting: Sidebend Right - Symptoms During Testing: No effect Cervical Sitting: Sidebend Right - Symptoms After Testing: No effect Cervical Sitting: Sidebend Left - Mechanical Response: No effect Cervical Sitting: Sidebend Left - Symptoms During Testing: No effect Cervical Sitting: Sidebend Left - Symptoms After Testing: No effect Cervical Sitting: Rotation Right - Mechanical Response: No effect Cervical Sitting: Rotation Right - Symptoms During Testing: No effect Cervical Sitting: Rotation Right - Symptoms After Testing: No effect Cervical Sitting: Rotation Left - Mechanical Response: No effect Cervical Sitting: Rotation Left - Symptoms During Testing: No effect Cervical Sitting: Rotation Left - Symptoms After Testing: No effect Cervical Sitting: Flexion - Mechanical Response: No effect Cervical Sitting: Flexion - Symptoms During Testing: No effect Cervical Sitting: Flexion - Symptoms After Testing: No effect Cervical Lying: Retraction - Mechanical Response: No effect Cervical Lying: Retraction - Symptoms During Testing: Increases Cervical Lying: Retraction - Symptoms After Testing: No worse R Shoulder External Rotation Lag Test - RC Tear: Negative R Shoulder Lift Off Test - Subscapular Tear: Negative R Shoulder Drop Sign - IS Test: Negative R Shoulder Empty Can - SS: Negative R Shoulder Neer - Impingement: Negative R Shoulder Evans Luis Carlos - Impingement: Negative R Shoulder Biceps Load Test - Labrum: Negative R Shoulder Yeargasons - SLAP: Negative R Shoulder Speeds Test - Labrum/Biceps: Negative L Shoulder External Rotation Lag Test - RC Tear: Negative L Shoulder Supine Impingement Test - RC Tear: Negative L Shoulder Empty Can - SS: Negative L Shoulder Belly Press - SupScap: Negative L Shoulder Neer - Impingement: Negative L Shoulder Evans Luis Carlos - Impingement: Negative L Shoulder Biceps Load Test - Labrum: Negative L Shoulder Yeargasons - SLAP: Negative - Goals Goal 1:: Pt. to be I with HEP. Goal Time Frame: 4-6 Weeks Goal 2:: Pt. to have 0-1/10 pain in bilateral shoulders with all ADLs and recreational activities. Goal Time Frame: 4-6 Weeks Goal 3:: Pt. to have 0-/10 pain in her cervical spine with sleeping and all ADLs. Goal Time Frame: 4-6 Weeks Goal 4:: Pt. to have increased B shoulder and postural strength by 1/2 grade reducing stress applied to cervical spine and B shoulders with all ADLs. Goal Time Frame: 4-6 Weeks Goal 5:: Pt. to demonstrate proper posture throughout therapy session indicating improved postural awareness. Goal Time Frame: 4-6 Weeks - Rehabilitation Potential Physical Therapy Diagnosis: Pt. has signs and symptoms consistent with B shoulder pain, weakness and cervical spine symptoms. She has full ROM of bilateral shoulders and neck, but has increased symptoms with all mobility. She would benefit from PT to increase B shoulder instability, postural strengthening and modalities to allow for increased tolerance to all mobility. Rehabilitation Potential: Good - Anticipated Interventions Patient/Client Instruction: Educate patient on: Condition, Plan of Care, Risk Factors, Benefits of Fitness Program For the Purpose of:: To foster healthy habits, To improve decision making, To facilitate caregiver knowledge, To improve self management, To prevent re-injury , To improve ability to perform tasks related to life management, To improve tolerance to ADL's Therapeutic Exercise to Include: Strength training, Power training, Endurance training, Postural training, Active ROM, Bill Exercises, Scapular Strength/ Stabilization For the Purpose of:: To decrease pain, To increase ROM, To improve nutrient delivery to tissue, To increase oxygenation perfusion, To improve muscle performance and motor function, To improve ability to perform ADL's, To decrease soft tissue restriction, To increase flexibility/ROM Manual Therapy Techniques to Include: Trigger point massage, Massage, Mobilization For the Purpose of:: To decrease pain, To increase ROM, To improve nutrient delivery to tissue, To increase oxygenation perfusion, To improve muscle performance and motor function IF ES: Yes Thermo therapy (hot pack): Yes Ultrasound (thermal/non thermal): Yes For the Purpose of:: To decrease pain, To decrease swelling/inflammation, To increase ROM Thank you for the opportunity to evaluate your patient. For Medicare and Medicare HMO plans, please review the plan of care and approve it. It will need to be FAXED BACK to us at [phone] for Medicare purposes. Please let me know if there are questions or concerns regarding this plan of care. Physician Signature: Date:
--- NOTE | 2017-10-11 18:58 | HP.PTDCNRP_ITS ---
HP - Discharge Summary (1) - Patient Information GINNY WYNNE was seen in my office for initial evaluation on 02/22/17. The following Plan of Care was established for this patient: Initial Frequency: 2-3x /Week Initial Duration: 4-6 Weeks - Anticipated Interventions Patient/Client Instruction: Educate patient on: Condition, Plan of Care, Risk Factors, Benefits of Fitness Program For the Purpose of:: To foster healthy habits, To improve decision making, To facilitate caregiver knowledge, To improve self management, To prevent re-injury , To improve ability to perform tasks related to life management, To improve tolerance to ADL's Therapeutic Exercise to Include: Strength training, Power training, Endurance training, Postural training, Active ROM, Bill Exercises, Scapular Strength/ Stabilization For the Purpose of:: To decrease pain, To increase ROM, To improve nutrient delivery to tissue, To increase oxygenation perfusion, To improve muscle performance and motor function, To improve ability to perform ADL's, To decrease soft tissue restriction, To increase flexibility/ROM Manual Therapy Techniques to Include: Trigger point massage, Massage, Mobilization For the Purpose of:: To decrease pain, To increase ROM, To improve nutrient delivery to tissue, To increase oxygenation perfusion, To improve muscle performance and motor function IF ES: Yes Thermo therapy (hot pack): Yes Ultrasound (thermal/non thermal): Yes For the Purpose of:: To decrease pain, To decrease swelling/inflammation, To increase ROM This patient was last seen in our office 05/04/17. Pertinent comments regarding their Physical therapy will appear below: Pt. was seen fof her neck pain in PT. Pt. reports making little gains with PT. She was on hold and instructed to follow up with physician then back to PT if needed. Pt. has not been seen in ~5 months and will be DC from PT at this point intime. At this point I will be discontinuing this patient from physical therapy. I would be happy to see this patient again in the future if found appropriate by the physician. Thank you! Lukas Baer
== END 2017-05-04 19:00 | disposition home or self-care (01) ==
LOC: PT 14:00
PROVIDERS: Family Provider Internal Medicine; PCP Internal Medicine; Visit Provider Specialist
DX: M25.311 Other instability, right shoulder (principal); M25.312 Other instability, left shoulder; S16.1XXD Strain of muscle, fascia and tendon at neck level, subsequent encounter
CPT/HCPCS: 97035; 97110; 97140; 97162

== ENCOUNTER 2017-05-05 10:56 | Day surgery (SDC) | payer MEDICAID, SELFPAY ==
--- NOTE | 2017-05-05 | POC_PTH ---
PATIENT: GINNY WYNNE LOC: [facility] [place] U#:[id number] AGE/SX: 22/F ROOM: RE05/05/[address]: Dr. Willa Stoddard, MDDOB: 1995 BED: DIS: 05/05/2017 SPEC #: [id number] RECD: 05/05/17 15:08 STATUS: KRISTAN NIKITA #: [id number] TONY: 05/05/17 00:[address]: Willa Stoddard DEPT: SURGICAL PATHOLOGY RECD BY: Oumar Pitts ENTERED: 05/05/17 15:08 SP TYPE: PROD CONC OTHR DR: Dr. Chantale Uriarte MD Tissues: Product of conception, NOS Procedures: Surgery Specimen Level IV HEADER OPERATION: Dilation and curettage, suction for incomplete PRE-OP DIAGNOSIS: Retained products from termination of TISSUE SUBMITTED: Retained products of conception MICROSCOPIC DIAGNOSIS Retained products of conception: Decidua, gestational endometrium and infarcted immature chorionic villi (products of conception). KAREN:alycia 05/08/17 MICROSCOPIC DESCRIPTION Slides are reviewed. GROSS DESCRIPTION Received in fixative is one container labeled with the patient's name and designated retained products of conception. The specimen consists of multiple pieces of pink-nunez soft tissue that in aggregate measure 4 x 4.5 x 1 cm. No tissue is identified. The entire specimen is submitted in four cassettes. / KAREN:alycia 05/05/17 TC:5 CPT: 77446
[2017-05-05 11:23] VITALS: BP 94/58; PULSE 63; RESP 16; TEMP 36.7; O2SAT 100; BMI 21.2
[2017-05-05 11:38] LABS: Hematocrit 34.9 % (37-47); Hemoglobin 11.6 g/dl (12.0-15.0); Mean Corp Hgb Conc 33.2 g/gl (32-36); Mean Corpuscular Hgb 31.6 pg (27.0-32.0); Mean Corpuscular Volume 95.1 fL (81-99); Mean Platelet Vol. 9.2 fl (6.2-12.0); Platelet Count 264 K/mm3 (150-450); RBC Distribution Width CV 12.5 % (11.6-14.6); RBC Distribution Width SD 42.9 fl (35.1-43.9); Red Blood Count 3.67 M/mm3 (4.2-5.4); White Blood Count 7.1 K/mm3 (4.4-11.0)
[2017-05-05 11:43] LABS: Scan Indicated on CBC? Y/N NO
--- NOTE | 2017-05-05 13:27 | PCM.DC.D&C ---
Discharge Diet: No Restrictions Discharge Activity: Return to Normal Activity, May Shower, May Take a Tub Bath - in 2 weeks. Allergies/Adverse Reactions: Allergies nickel [Nickel] Allergy (Verified 05/04/17 08:02) Unknown Penicillins Allergy (Verified 05/04/17 08:02) Shortness of breath doxycycline Adverse Reaction (Verified 05/04/17 08:02) Vomiting metronidazole [From Flagyl] Adverse Reaction (Verified 05/04/17 08:02) Upset Stomach sulfamethoxazole [From Bactrim] Adverse Reaction (Verified 05/04/17 08:02) Upset Stomach trimethoprim [From Bactrim] Adverse Reaction (Verified 05/04/17 08:02) Upset Stomach Medications to take at Discharge Polyethylene Glycol 3350 [Miralax] 17 gm PO DAILY PRN 11/15/13 Topiramate [Topamax] 200 mg PO QHS 09/16/16 Docusate Sodium [Colace] 100 mg PO BID PRN PRN #10 capsule 09/20/16 Acetaminophen [Tylenol Tablet] 650 mg PO Q4H PRN PRN tablet 12/07/16 Clonidine HCl 0.1 mg PO TID PRN PRN 12/07/16 Acyclovir [Zovirax] 400 mg PO BID 04/14/17 Gabapentin [Neurontin] 600 mg PO TIDCM 04/14/17 Pnv No.122/Iron/Folic Acid [ Multi Tablet] 1 each PO DAILY 04/14/17 Potassium Chloride [K-Dur] 20 meq PO BID 10 Days #20 tab 04/14/17 Ibuprofen 600 mg PO TID 05/04/17 Melatonin/Pyridoxine [Melatonin 5 mg Tablet] 2 each PO DAILY 05/04/17 Primary Care Physician: Chantale Uriarte MD [Primary Care Provider] -
--- NOTE | 2017-05-05 13:32 | OP.PCM_ITS ---
Operative Report Date of Procedure: 05/05/17 Surgeon: Dr. Willa Stoddard Pre[employer] Team Lead: None Pre op Diagnosis: retained products of conception after elective termination of Post OP Diagnosis: same Surgery Performed: suction dilation and curettage Findings: normal sized uterus with no adnexal masses on exam. 7mm suction catheter used, moderate amount of tissue expelled. Complications: none EBL: minimal <5cc implantable devices: none Anesthesia: MAC Operative Note: After informed consent was obtained patient was taken to OR and placed in supine position. Anesthesia was given. patient was placed in yellow fin stirrups and prepped and draped in normal sterile fashion. bladder was drained with straight catheter with approximately 75of clear yellow urine expelled. Exam under anesthesia reviewed normal sized uterus with no adnexal masses. Weighted speculum placed in posterior fornix of vaginal, single tooth tenaculum was used to gently grasped anterior lip of cervix. Cervix was then gently dilated in an incremental fashion. Was adequate dilation was achieved the 7mm suction catheter placed and suction started- tissue expelled, once suction tubing free of tissue the catheter was removed. The tissue was then sent to pathology for examination. Uterine cavity intact, no complications. At this time procedure was deemed complete and successful. Tenaculum removed, speculum removed. Good hemostasis appreciated. Vaginal sweep was negative. Instrument and lap count correct x 2. I anticipate normal postoperative course.
[2017-05-05 13:38] VITALS: BP 114/81; BP 94/58; PULSE 82; RESP 16; TEMP 36.4; O2SAT 95
[2017-05-05 13:45] VITALS: BP 94/58; BP 98/46; PULSE 84; RESP 16; O2SAT 95
[2017-05-05 14:00] VITALS: BP 91/59; BP 94/58; PULSE 69; RESP 16; O2SAT 100
[2017-05-05 14:05] VITALS: BP 91/59; BP 94/58; PULSE 63; RESP 16; TEMP 36.1; O2SAT 100
[2017-05-05 14:50] VITALS: BP 94/58
== END 2017-05-05 14:50 | disposition home or self-care (01) ==
LOC: SDC 10:57 → AC 10:59
PROVIDERS: Anesthesiology; Family Provider Internal Medicine; PCP Internal Medicine; Visit Provider Obstetrics & Gynecology
PROC: (CPT 59812; principal; 2017-05-05 12:15)
DX: O03.4 Incomplete spontaneous abortion without complication (principal); K58.9 Irritable bowel syndrome, unspecified; F31.2 Bipolar disorder, current episode manic severe with psychotic features; Z86.19 Personal history of other infectious and parasitic diseases; F17.210 Nicotine dependence, cigarettes, uncomplicated; A60.00 Herpesviral infection of urogenital system, unspecified; Z79.899 Other long term (current) drug therapy; F11.11 Opioid abuse, in remission
CPT/HCPCS: 01965; 59812; 36415; 85027; 86850; 86900; 88305; J7120; J2405

== ENCOUNTER 2017-05-11 09:00 | Outpatient (RCR) | payer MEDICAID, SELFPAY ==
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
--- NOTE | 2017-05-11 16:27 | BH.SGPN ---
Service Group Progress Note - Session Psychotherapy Session #2 Date Open:: 05/11/17 Time Started:: 10:21 Time Stopped:: 11:13 Targeted Problem #:: 1 Type of Group:: Illness Management - 8 participants Psychotherapy Session #3 Date Open:: 05/11/17 Time Started:: 11:24 Time Stopped:: 12:16
--- NOTE | 2017-05-12 15:30 | BH.SGPN ---
Service Group Progress Note - Session Psychotherapy Session #3 Date Open:: 05/12/17 - 9 group members Time Started:: 11:15 Time Stopped:: 12:10 Targeted Problem #:: 1 Type of Group:: Functional Skills Development Goal of Group:: To identify specific barriers to an identified change clients would want to make and identify ways to overcome those barriers. Client Response/Progress/Benefit:: Client responded well to session, active in problem-solving strategies. Client reported change is scary, but it's needed. Client identified her goal for the week as packing and organizing to prepare for her move. Client stated her anxiety, procrastination, and lack of motivation are barriers to client accomplishing this goal. Client helped the group develop strategies to overcome these barriers such as using relaxation coping skills before packing, setting small goals, and setting deadlines for herself. Client appeared to benefit from problem-solving strategies to overcome barriers. Client seems to be progressing as shown by her increased connection with area resources, but continues to struggle with managing anger. Eye Contact:: Good Motor Activity:: Appropriate Appearance:: Casual Speech:: Appropriate Mood:: Euthymic Affect:: Full - smiling and engaging with peers Thoughts:: Linear, No evidence of hallucinations/delusions noted Staff Interventions:: Therapist facilitated discussion about what helped the group overcome challenges that came about during the experiential activity. Therapist utilized the activity as a tool in relating those experiences to ways to overcome barriers with challenges in their life when trying to make change. Therapist group into smaller groups and had them brainstorm ways to overcome certain barriers to their identified change. Therapist provided support by using reflective listening and providing feedback.
--- NOTE | 2017-05-12 15:46 | BH.COMM ---
Communication Note - Communication with Client Communication Note: Therapist briefly touched base with client regarding medication questions and to establish a plan for the weekend. 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
--- NOTE | 2017-05-15 15:31 | BH.COMM ---
Communication Note - Communication with Client Communication Note: Therapist received a call from client in which client canceled her scheduled IOP session today. Client reported she was feeling very sore and tired from moving over the weekend which is why client could not make it today. Client reported plan to be at group 05/17/17.
--- NOTE | 2017-05-17 10:32 | BH.COMM ---
Communication Note - Communication with Client Communication Note: Therapist spoke on the phone with client as she cancelled for her IOP group and individual session today due to conflicting appointments. Client shared I forgot I scheduled with my manager case. Therapist addressed the attendance policy with client and informed client she may be discharged if client cannot attend at least two days a week. Therapist discussed the importance of attendance in maintaining and seeing progress. Client reported she understood the protocol and plans to come 05/19/17. Client shared she will make sure I come two days next week.
--- NOTE | 2017-05-17 10:40 | BH.COMM_ITS ---
Communication Note - Communication with Client Communication Note: Therapist spoke on the phone with client as she cancelled for her IOP group and individual session today due to conflicting appointments. Client shared I forgot I scheduled with my disease case manager. Therapist addressed the attendance policy with client and informed client she may be discharged if client cannot attend at least two days a week. Therapist discussed the importance of attendance in maintaining and seeing progress. Client reported she understood the protocol and plans to come 05/19/17. Client shared she will make sure I come two days next week.
--- NOTE | 2017-05-19 15:33 | BH.COMM ---
Communication Note - Communication with Client Communication Note: Therapist spoke with client on the phone this morning as client no showed/no called for group. Client reported she was up throwing up all night and the cable man was at her apartment this morning which was why client could not make group. Therapist called client back in the afternoon regarding attendance and client's thoughts about the program moving forward. Therapist unable to reach client and left a message asking for client to call back. In the message therapist brought up the topic of potential discharge should client miss any more days.
--- NOTE | 2017-05-22 16:48 | BH.COMM ---
Communication Note - Communication with Client Communication Note: This therapist spoke with client on the phone regarding IOP attendance. Client shared she acknowledges her attendance has been inconsistent. Client appeared frustrated as she reported the medication isn't working and no one is taking me seriously. Therapist validated client's emotions while reminding client of the IOP attendance policy as well as client's contribution to treatment. Therapist discussed discharge due to client's conflicting work schedule and absenteeism. Client agreed to come in on 05/24/17 to create an aftercare plan and discuss continuity of care.
--- NOTE | 2017-05-24 15:50 | BH.COMM_ITS ---
Communication Note - Communication with Client Communication Note: This therapist spoke with client on the phone regarding IOP attendance. Client shared she acknowledges her attendance has been inconsistent. Client appeared frustrated as she reported the medication isn't working and no one is taking me seriously. Therapist validated client's emotions while reminding client of the IOP attendance policy as well as client' s contribution to treatment. Therapist discussed discharge due to client's conflicting work schedule and absenteeism. Client agreed to come in on 05/24/17 to create an aftercare plan and discuss continuity of care.
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
--- NOTE | 2017-05-24 16:01 | BH.COMM ---
Communication Note - Communication with Client Communication Note: Client no called/no showed for her appointment today in which therapist and client were to discuss discharge and aftercare. Client to be discharged from [facility] 05/24/17.
--- NOTE | 2017-05-29 11:03 | BH.COMM_ITS ---
Communication Note - Communication with Client Communication Note: Client no called/no showed for her appointment today in which therapist and client were to discuss discharge and aftercare. Client to be discharged from [facility] 05/24/17.
== END 2017-05-24 14:00 | disposition home or self-care (01) ==
LOC: BHIOP 09:00
PROVIDERS: Family Provider Internal Medicine; PCP Internal Medicine; Visit Provider Psychiatry & Neurology Psychiatry
DX: F31.9 Bipolar disorder, unspecified (principal); F43.10 Post-traumatic stress disorder, unspecified; F41.9 Anxiety disorder, unspecified; F10.21 Alcohol dependence, in remission; F11.21 Opioid dependence, in remission
CPT/HCPCS: H0035; H2012; 90837

== ENCOUNTER 2017-05-22 01:15 | Emergency (ER) | payer MEDICAID, SELFPAY ==
[2017-05-22 01:18] VITALS: BP 128/81; PULSE 61; RESP 17; TEMP 37.2; O2SAT 99; BMI 21.1
--- NOTE | 2017-05-22 01:55 | ED.VISSUMM ---
- ER Visit Summary Date of Service: 05/22/17 Chief Complaint: Pelvic pain History of Present Illness: The patient is a 22 F history of depression and bipolar disorder. Patient recently states that she had a D&C done for elective AB. Since that time has had some intermittent bleeding and foul-smelling discharge and urine. She complains some lower pelvic pain and back pain. She denies any fever. States that the D&C was done by Dr. Mcguire approximately 3 weeks ago. She does have a history of gonorrhea in the past chlamydia and herpes. She is Ab2 with 1 elective AB and the other one being a miscarriage. Physical Examination: Well-appearing young female. Vital signs are stable afebrile. She does not look septic toxic. She is no acute distress. H EENT exam unremarkable. Neck nontender no lymphadenopathy. Lungs clear to auscultation bilaterally. Heart regular rate and rhythm no murmur. Abdomen is soft distended normal bowel sounds no peritoneal signs. Moving all 4 extremities. Neurologically she is awake and alert. Back exam is unremarkable. Test Results: Urinalysis no signs of urinary tract infection. No white cells. No bacteria no nitrates. Urine negative. Emergency Department Course and Treatment: M and urinalysis and urine will be obtained. Treatment Plan: A pelvic exam was done with female nurse present in the room around 0300. External exam is unremarkable. No bleeding or lesions. On speculum exam there was no blood or lesions. There is a small amount of white discharge at the cervix. There were no signs of gonorrhea chlamydia. No signs of bacterial vaginosis. No signs of a yeast infection. She stated she had mild but was very unimpressive uterine tenderness. Had no adnexal tenderness or adnexal masses. No cervical motion tenderness. The very benign-appearing pelvic exam. Patient will be discharged home to follow-up with her primary care physician Dr. Milka Mcguire. Disposition: Discharge Impression: Pelvic pain. Etiology Status post D&C for an elective This note was generated with [employer] dictation software. It may contain incorrect words, spelling, and punctuation that were not noted in review of the chart prior to signing ED Disposition - Plan for ED Patient: Chief Complaint: Female C/O Referrals: Chantale Uriarte MD [Primary Care Provider] -
[2017-05-22 02:29] LABS: Bacteria 0 SEEN /hpf (None Seen); Mucous, Urine 0 SEEN /hpf (<or=2+); Red Blood Cells-Urine 0 SEEN /hpf (0-5); White Blood Cells 0 SEEN /hpf (0-5)
[2017-05-22 02:30] LABS: Color, Urine Yellow (Yellow); Glucose, Dipstick Normal (Normal); Ketone-Dipstick Negative (Negative); Leukocyte Esterase-Dipstick Negative /ul (Negative); Nitrite-Dipstick Negative (Negative); Occult Blood-Urine Negative /ul (Negative); Protein-Dipstick Negative (Negative); Specific Gravity, Urine 1.015 (1.002-1.030); Urine Bilirubin Dipstick Negative (Negative); Urine Clarity Cloudy (Clear); Urine Urobilinogen Normal (Normal)
[2017-05-22 02:32] LABS: Internal QC Validated? YES +Cl - CLEAR BKGD; Pregnancy, Urine Negative Negative
[2017-05-22 02:35] LABS: Amorphous Sediment 3+; Squamous Epithelial Cells - UA 10-25 SEEN /hpf (5-10)
--- NOTE | 2017-05-22 03:06 | ED.DEP ---
ED Disposition - Plan for ED Patient: Disposition: Home or Assisted Living Chief Complaint: Female C/O Instructions: ED Pelvic Pain [facility] Referrals: Milka Mcguire MD [STAFF PHYSICIAN] - 1-2 Weeks Additional Instructions: Tylenol or Motrin for pain. Call and follow-up with Dr. Milka Mcguire for further evaluation. Your tests tonight are unremarkable and there is no specific cause for your pelvic pain.
== END 2017-05-22 03:12 | disposition home or self-care (01) ==
PROVIDERS: Emergency Provider Emergency Medicine; Family Provider Internal Medicine; PCP Internal Medicine
DX: R10.2 Pelvic and perineal pain (principal); Z98.890 Other specified postprocedural states; M54.9 Dorsalgia, unspecified; N89.8 Other specified noninflammatory disorders of vagina; R82.99 Other abnormal findings in urine; N93.9 Abnormal uterine and vaginal bleeding, unspecified; F32.9 Major depressive disorder, single episode, unspecified; F31.9 Bipolar disorder, unspecified; N83.209 Unspecified ovarian cyst, unspecified side; Z86.19 Personal history of other infectious and parasitic diseases; Z90.89 Acquired absence of other organs; Z79.899 Other long term (current) drug therapy; F11.90 Opioid use, unspecified, uncomplicated; Z72.0 Tobacco use
CPT/HCPCS: 81001; 81025; 99282

== ENCOUNTER 2017-07-07 14:18 | Emergency (ER) | payer MEDICAID, SELFPAY ==
[2017-07-07 14:19] VITALS: BP 95/55; PULSE 77; RESP 20; TEMP 37.2; O2SAT 99; BMI 21.0
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
[2017-07-07] MEDS: Diphth,Pertuss(Acell),Tet Vac 0.5 ML Vial IM (15:25)
[2017-07-07] MEDS: HYDROcodone Bitartrate/Apap 5/325 Tablet PO (15:25)
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
[2017-07-07 15:52] VITALS: BP 97/64; PULSE 69; RESP 16; O2SAT 100
== END 2017-07-07 15:54 | disposition home or self-care (01) ==
PROVIDERS: Emergency Provider Emergency Medicine; Family Provider Internal Medicine; PCP Internal Medicine
DX: T20.06XA Burn of unspecified degree of forehead and cheek, initial encounter (principal); T20.04XA Burn of unspecified degree of nose (septum), initial encounter; H53.8 Other visual disturbances; R11.2 Nausea with vomiting, unspecified; X15.8XXA Contact with other hot household appliances, initial encounter; Y93.9 Activity, unspecified; Y92.9 Unspecified place or not applicable; F17.200 Nicotine dependence, unspecified, uncomplicated; Z90.89 Acquired absence of other organs
CPT/HCPCS: 90471; 90715; 99283

== ENCOUNTER 2017-07-08 15:27 | Emergency (ER) | payer MEDICAID, SELFPAY ==
[2017-07-08 15:28] VITALS: BP 99/70; PULSE 81; RESP 14; TEMP 37.1; O2SAT 100; BMI 21.6
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
[2017-07-08 15:55] VITALS: PULSE 78; RESP 18; O2SAT 98
== END 2017-07-08 15:55 | disposition home or self-care (01) ==
LOC: ED 15:49
PROVIDERS: Emergency Provider Emergency Medicine; Family Provider Internal Medicine; PCP Internal Medicine
DX: I89.0 Lymphedema, not elsewhere classified (principal); T20.06XA Burn of unspecified degree of forehead and cheek, initial encounter; T20.04XA Burn of unspecified degree of nose (septum), initial encounter; T20.00XA Burn of unspecified degree of head, face, and neck, unspecified site, initial encounter; X08.8XXA Exposure to other specified smoke, fire and flames, initial encounter; Y93.9 Activity, unspecified; Y92.9 Unspecified place or not applicable; F32.9 Major depressive disorder, single episode, unspecified; Z79.899 Other long term (current) drug therapy; Z72.0 Tobacco use
CPT/HCPCS: 99282

== ENCOUNTER 2017-08-14 12:15 | Emergency (ER) | payer MEDICAID, SELFPAY ==
--- NOTE | 2017-08-14 12:15 | DT_ITS ---
This patient was seen during an EMR downtime August 14, 2017 - August 21, 2017. This patient may have a combination of paper and electronic documentation or all paper documentation. All documentation is viewable within the e-chart portion of [employer] for each patient visit.
[2017-08-17 11:00] LABS: Anion Gap 6 (5-15); BUN 13 mg/dL (7-18); BUN/Creat Ratio 18.1 RATIO (10-20); Calcium,Total 8.9 mg/dL (8.5-10.1); Chloride 105 mmol/L (98-107); Creatinine, Serum 0.72 mg/dL (0.55-1.02); EST Glomerular Filtration Rate 106 mL/min (>60); Est Glom Filt Rate - Afr Amer 128 mL/min (>60); Glucose 85 mg/dL (74-106); Potassium 3.5 mmol/L (3.5-5.1); Sodium Level 142 mmol/L (136-145)
[2017-08-17 11:01] LABS: Alcohol, Blood (Medical)-Serum < 3.0 mg/dL; Amphetamine Urine VISTA POSITIVE (<1000 ng/mL); Pregnancy, Serum, hCG Quali. NEGATIVE Negative (0-9 Nonpreg); Vista UDS pH Range 6
[2017-08-17 11:02] LABS: Barbiturate Urine VISTA POSITIVE (< 200 ng/mL); Benzodiazepine Urine VISTA NEGATIVE (< 200 ng/mL); Cocaine Urine VISTA NEGATIVE (< 300 ng/mL); Ecstacy Urine VISTA NEGATIVE (< 500 ng/mL); Methadone Urine VISTA NEGATIVE (< 300 ng/mL); PCP Urine VISTA NEGATIVE (< 25 ng/mL); THC Urine VISTA NEGATIVE (< 50 ng/mL)
[2017-08-17 16:04] LABS: Absolute Neutrophil Count 6.3 X10^3/uL (2.0-7.7); Basophil% 0.2 % (0-1); Eosinophils% 3.4 % (0-5); Hematocrit 36.8 % (37-47); Hemoglobin 12.1 g/dl (12.0-15.0); Lymphocyte # 2.39 X10^3/ul (4.0); Lymphocyte % 24.9 % (19-41); Mean Corp Hgb Conc 32.9 g/gl (32-36); Mean Corpuscular Hgb 30.4 pg (27.0-32.0); Mean Corpuscular Volume 92.5 fL (81-99); Mean Platelet Vol. 9.4 fl (6.2-12.0); Monocyte% 5.9 % (0-10); Neutrophil # 6.29 X10^3/uL (2.7-7.7); Neutrophil % 65.6 % (47-70); POSITIVE COUNT NO; POSITIVE DIFFERENTIAL NO; POSITIVE MORPHOLOGY NO; Platelet Count 294 K/mm3 (150-450); RBC Distribution Width CV 12.1 % (11.6-14.6); RBC Distribution Width SD 40.1 fl (35.1-43.9); Red Blood Count 3.98 M/mm3 (4.2-5.4); White Blood Count 9.6 K/mm3 (4.4-11.0)
[2017-08-17 16:05] LABS: Absolute Lymphocyte Count 2.39 X10^3/ul (0.83-4.51); Basophil# 0.02 X10^3/uL; Eosinophil# 0.33 X10^3/uL; Monocyte# 0.57 X10^3/uL
[2017-08-17 18:06] LABS: Bacteria 0 SEEN /hpf (None Seen); Mucous, Urine 0 SEEN /hpf (<or=2+); Red Blood Cells-Urine 0 SEEN /hpf (0-5)
[2017-08-17 18:21] LABS: Color, Urine Yellow (Yellow); Glucose, Dipstick NEGATIVE (Normal); Ketone-Dipstick Negative (Negative); Leukocyte Esterase-Dipstick 1+ /ul (Negative); Nitrite-Dipstick Negative (Negative); Occult Blood-Urine Negative /ul (Negative); Protein-Dipstick 30 mg/dl (Negative); Squamous Epithelial Cells - UA 5-10 SEEN /hpf (5-10); Urine Bilirubin Dipstick Negative (Negative); Urine Clarity Sl Cldy (Clear); Urine Urobilinogen Normal (Normal); White Blood Cells 0-5 SEEN /hpf (0-5)
--- NOTE | 2017-09-07 15:38 | ED.VISSUMM ---
- ER Visit Summary Date of Service: 09/07/17 Chief Complaint: [Depression and suicidal ideation] History of Present Illness: The patient is a 22 F [presents the emergency department with complaint of feeling depressed today. Patient states she has not slept the last 24 hours. Patient has been manic for weeks. Patient states that she starting to detox from opiates. Patient denies hallucinations. Patient states that she feels like she gets paranoid. Patient also cut her arms last night but did not do it an attempt to kill herself but rather than just to release stress. Patient has history of bipolar disorder.] Physical Examination: HEENT-PERRLA, EOMI. Cranial nerves II through XII grossly intact. TMs clear. Mucous membranes moist. No adenopathy. Cardiovascular-regular rate and rhythm without murmur or ectopy Lungs-clear to auscultation, chest wall stable without crepitus or subcu emphysema Abdomen-normoactive bowel sounds, soft, nontender, no rebound or rigidity, no peritoneal signs. Extremities-intact ?4, normal range of motion, normal pulses, atraumatic[] Test Results: [CBC with differential showed a white count of 9.6, hemoglobin 12, hematocrit 37, platelets 294. Chemistries unremarkable. Urinalysis was normal. HCG was negative. Toxicology screen was positive for amphetamines, barbiturates, and opiates. Alcohol level was negative.] Emergency Department Course and Treatment: [Patient will be evaluated by crisis] Treatment Plan: [Transfer to psychiatric facility of [facility] for further evaluation and treatment] Disposition: [Transfer] Impression: [Suicidal ideation Narcotic abuse Manic episode] This note was generated with Regalamos dictation software. It may contain incorrect words, spelling, and punctuation that were not noted in review of the chart prior to signing ED Disposition - Plan for ED Patient: Disposition: Psychiatric Hospital or Unit Referrals: Chantale Uriarte MD [Primary Care Provider] -
--- NOTE | 2017-09-07 15:43 | ED.DCSUM_ITS ---
- ER Visit Summary Date of Service: 09/07/17 Chief Complaint: [Depression and suicidal ideation] History of Present Illness: The patient is a 22 F [presents the emergency department with complaint of feeling depressed today. Patient states she has not slept the last 24 hours. Patient has been manic for weeks. Patient states that she starting to detox from opiates. Patient denies hallucinations. Patient states that she feels like she gets paranoid. Patient also cut her arms last night but did not do it an attempt to kill herself but rather than just to release stress. Patient has history of bipolar disorder.] Physical Examination: HEENT-PERRLA, EOMI. Cranial nerves II through XII grossly intact. TMs clear. Mucous membranes moist. No adenopathy. Cardiovascular-regular rate and rhythm without murmur or ectopy Lungs-clear to auscultation, chest wall stable without crepitus or subcu emphysema Abdomen-normoactive bowel sounds, soft, nontender, no rebound or rigidity, no peritoneal signs. Extremities-intact ?4, normal range of motion, normal pulses, atraumatic[] Test Results: [CBC with differential showed a white count of 9.6, hemoglobin 12 , hematocrit 37, platelets 294. Chemistries unremarkable. Urinalysis was normal. HCG was negative. Toxicology screen was positive for amphetamines, barbiturates, and opiates. Alcohol level was negative.] Emergency Department Course and Treatment: [Patient will be evaluated by crisis] Treatment Plan: [Transfer to psychiatric facility of [facility] for further evaluation and treatment] Disposition: [Transfer] Impression: [Suicidal ideation Narcotic abuse Manic episode] This note was generated with HitchedPic dictation software. It may contain incorrect words, spelling, and punctuation that were not noted in review of the chart prior to signing ED Disposition - Plan for ED Patient: Disposition: Psychiatric Hospital or Unit Referrals: Chantale Uriarte MD [Primary Care Provider] -
== END 2017-08-14 20:25 ==
LOC: ED 08-16 12:55
PROVIDERS: Emergency Provider Emergency Medicine; Family Provider Internal Medicine; PCP Internal Medicine
DX: R45.851 Suicidal ideations (principal); F30.9 Manic episode, unspecified; Z72.0 Tobacco use; F19.10 Other psychoactive substance abuse, uncomplicated
CPT/HCPCS: 36415; 80048; 80307; 80320; 81001; 84703; 85025; 93005; 96372; 99284; G0480

== ENCOUNTER 2017-08-29 06:05 | Emergency (ER) | payer MEDICAID, SELFPAY ==
[2017-08-29] VITALS (8 sets, daily range): BP systolic 95–127; BP diastolic 56–90; PULSE 78–121; RESP 14–18; TEMP 36.6; O2SAT 97–100; BMI 19.3
--- NOTE | 2017-08-29 06:14 | EKG12_ITS ---
Test Reason : SUBSTANCE ABUSE Blood Pressure : / mmHG Vent. Rate : 093 BPM Atrial Rate : 093 BPM P-R Int : 118 ms QRS Dur : 082 ms QT Int : 392 ms P-R-T Axes : 023 027 028 degrees QTc Int : 487 ms Normal sinus rhythm Prolonged QT Abnormal ECG Confirmed by CHRISTA FIGUEROA, BOGDAN ([id number]), staff editor YOBANI HURST ([id number]) on 08/31/2017 8:59:11 AM Referred By: MUNIRA Confirmed By:BOGDAN GOODWIN MD
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
[2017-08-29 06:58] LABS: Bacteria 0 SEEN /hpf (None Seen); Mucous, Urine 0 SEEN /hpf (<or=2+)
[2017-08-29 07:02] LABS: Color, Urine Yellow (Yellow); Glucose, Dipstick NEGATIVE (Normal); Ketone-Dipstick Negative (Negative); Leukocyte Esterase-Dipstick 500 /ul (Negative); Nitrite-Dipstick Negative (Negative); Occult Blood-Urine 250 /ul (Negative); Protein-Dipstick Negative (Negative); Urine Bilirubin Dipstick Negative (Negative); Urine Clarity Sl Cldy (Clear); Urine Urobilinogen Normal (Normal)
[2017-08-29 07:04] LABS: Red Blood Cells-Urine 25-50 SEEN /hpf (0-5); Squamous Epithelial Cells - UA 5-10 SEEN /hpf (5-10); White Blood Cells 25-50 SEEN /hpf (0-5)
[2017-08-29] MEDS: LORazepam 2 MG/ML Syringe 1 MG IV (07:04)
[2017-08-29] MEDS: Ondansetron 4 MG/2 ML Vial IV (07:04)
[2017-08-29 07:08] LABS: Absolute Lymphocyte Count 1.91 X10^3/ul (0.83-4.51); Absolute Neutrophil Count 8.7 X10^3/uL (2.0-7.7); Basophil# 0.06 X10^3/uL; Basophil% 0.5 % (0-1); Eosinophil# 0.25 X10^3/uL; Eosinophils% 2.1 % (0-5); Hematocrit 34.1 % (37-47); Hemoglobin 11.9 g/dl (12.0-15.0); Lymphocyte # 1.91 X10^3/ul (4.0); Lymphocyte % 16.2 % (19-41); Mean Corp Hgb Conc 34.9 g/gl (32-36); Mean Corpuscular Hgb 30.4 pg (27.0-32.0); Monocyte# 0.84 X10^3/uL; Monocyte% 7.1 % (0-10); Neutrophil # 8.67 X10^3/uL (2.7-7.7); Neutrophil % 73.8 % (47-70); POSITIVE COUNT NO; POSITIVE DIFFERENTIAL NO; POSITIVE MORPHOLOGY NO; Platelet Count 251 K/mm3 (150-450); RBC Distribution Width CV 11.9 % (11.6-14.6); RBC Distribution Width SD 37.5 fl (35.1-43.9); Red Blood Count 3.92 M/mm3 (4.2-5.4); White Blood Count 11.8 K/mm3 (4.4-11.0)
[2017-08-29 07:23] LABS: ALB/GLOB Ratio 0.9 RATIO (0.9-2.4); AST(SGOT) 19 U/L (15-37); Alanine Aminotransfer ALT/SGPT 24 U/L (13-56); Albumin, Serum 3.3 g/dL (3.2-5.0); Alkaline Phosphatase 64 U/L (45-117); Anion Gap 7 (5-15); BUN 13 mg/dL (7-18); BUN/Creat Ratio 17.3 RATIO (10-20); Calcium,Total 8.5 mg/dL (8.5-10.1); Chloride 103 mmol/L (98-107); Creatinine, Serum 0.75 mg/dL (0.55-1.02); EST Glomerular Filtration Rate 100 mL/min (>60); Est Glom Filt Rate - Afr Amer 121 mL/min (>60); Estimated Creatinine Clearance 81.98 ml/min; Globulin 3.6 g/dL (2.2-4.2); Glucose 96 mg/dL (74-106); Potassium 3.5 mmol/L (3.5-5.1); Protein, Total 6.9 g/dL (6.4-8.2); Sodium Level 137 mmol/L (136-145)
[2017-08-29 07:24] LABS: Amphetamine Urine VISTA POSITIVE (<1000 ng/mL); Barbiturate Urine VISTA NEGATIVE (< 200 ng/mL); Benzodiazepine Urine VISTA NEGATIVE (< 200 ng/mL); Cocaine Urine VISTA NEGATIVE (< 300 ng/mL); Ecstacy Urine VISTA NEGATIVE (< 500 ng/mL); Methadone Urine VISTA POSITIVE (< 300 ng/mL); PCP Urine VISTA NEGATIVE (< 25 ng/mL); THC Urine VISTA NEGATIVE (< 50 ng/mL); Vista UDS pH Range 5
[2017-08-29 07:30] LABS: Pregnancy, Serum, hCG Quali. NEGATIVE Negative (0-9 Nonpreg)
--- NOTE | 2017-08-29 08:43 | NURSING ---
BHUMIKA, CRISIS, CALLED BACK
--- NOTE | 2017-08-29 09:55 | NURSING ---
BHUMIKA , CRISIS, HERE
[2017-08-29] MEDS: LORazepam 2 MG/ML Syringe IM (13:52)
[2017-08-29] MEDS: Haloperidol Lactate 5 MG/ML Vial IM (13:52)
[2017-08-29] MEDS: DiphenhydrAMINE 50 MG/ML Syringe 25 MG IM (13:52)
--- NOTE | 2017-08-29 14:29 | ED.RN ---
pt had negative reaction to geodon. medication not given. alternative medications order by dr rosalba swan.
--- NOTE | 2017-08-29 15:56 | NURSING ---
CALLED [facility] FOR TRANSFER . ETA IS 20 MIN
== END 2017-08-29 16:50 | disposition short-term general hospital (02) ==
PROVIDERS: Emergency Provider Emergency Medicine; Family Provider Internal Medicine; PCP Internal Medicine
DX: F31.9 Bipolar disorder, unspecified (principal); F11.23 Opioid dependence with withdrawal; R45.851 Suicidal ideations; F60.3 Borderline personality disorder; F32.9 Major depressive disorder, single episode, unspecified; F19.10 Other psychoactive substance abuse, uncomplicated; Z79.899 Other long term (current) drug therapy; Z72.0 Tobacco use
CPT/HCPCS: 80053; 80307; 80320; 81001; 84703; 85025; 93005; 96372; 96374; 96375; 99284; G0480; J2405; J3486

== ENCOUNTER 2017-09-28 21:41 | Observation (INO) | payer MEDICAID, SELFPAY ==
[2017-09-28 21:42] VITALS: BP 129/101; PULSE 87; RESP 18; TEMP 36.9; O2SAT 99; BMI 19.8
--- NOTE | 2017-09-28 22:00 | ED.RN ---
pt arrives stating that she had a seizure earlier in the day. states it was witnessed by someone, but that person is not present. she does not know what happened during seizure and states that no one told her what her behaviors/symptoms were. states she has been doing uppers all night and has not been eating. states she has been using cocaine and has a hx of heroin use. pt noticeable agitated and upset.
--- NOTE | 2017-09-28 22:14 | ED.VISSUMM ---
- ER Visit Summary Date of Service: 09/28/17 Chief Complaint: Told I had a seizure History of Present Illness: The patient is a 22 F prior history of drug abuse. States she has been binging on drugs for last 2 days. She has IV cocaine. She is also done heroin in the past. She has been treated here several times for drug abuse. She states she has had very little sleep the last several days. And reportedly 1 of her friends that does drugs told her that she had a seizure today. She denies any headache. She states she has never happened before. She denies any recent head trauma. Physical Examination: Young female no acute distress. Vital signs are stable afebrile. Pulse ox 99% on room air no signs of hypoxia. HEENT exam unremarkable. Neck nontender. No meningismus. No lymphadenopathy. Lungs clear to auscultation bilaterally. Heart regular rhythm no murmur. Chest wall nontender. Abdomen soft nontender. Normal bowel sounds no peritoneal signs. She is moving all 4 extremities. They are neurovascularly intact. She is track stanford in her right antecubital area. There is no abscess or cellulitis. Back is nontender. Neurologically she is awake and alert. Pupils are round reactive light. No facial droop. Normal speech. Equal and symmetrical blueberry grower strength. Dorsi and plantar flexion are intact. Normal range of motion of both upper and lower extremities. Fingertip to nose is within normal limits. Her NIH score is 0. Test Results: A count of 15.7 H&H 12 and 37 no bands. Electrolytes unremarkable potassium of 3.3. Normal gap. Normal creatinine. Serum test is negative. Emergency Department Course and Treatment: Patient reportedly may have had a seizure. Her exam is unremarkable at this time. This may be secondary to sleep deprivation, could be secondary to withdrawal or drug abuse. She has had no head trauma and has a normal neurologic exam I Treatment Plan: Multiple repeat exams. Patient is resting more comfortably currently. She and I discussed and she would like to try detox again. She has been detoxed multiple times in the past. She does have a CIWA score of 25. I will speak to the hospitalist about admission. Disposition: Discharge Impression: Acute reported seizure Drug abuse Requesting detox for acute opiate withdrawal This note was generated with APTwateration software. It may contain incorrect words, spelling, and punctuation that were not noted in review of the chart prior to signing ED Disposition - Plan for ED Patient: Chief Complaint: Seizure Referrals: Chantale Uriarte MD [Primary Care Provider] -
--- NOTE | 2017-09-28 22:17 | ED.DCSUM_ITS ---
- ER Visit Summary Date of Service: 09/28/17 Chief Complaint: Told I had a seizure History of Present Illness: The patient is a 22 F prior history of drug abuse. States she has been binging on drugs for last 2 days. She has IV cocaine. She is also done heroin in the past. She has been treated here several times for drug abuse. She states she has had very little sleep the last several days. And reportedly 1 of her friends that does drugs told her that she had a seizure today. She denies any headache. She states she has never happened before. She denies any recent head trauma. Physical Examination: Young female no acute distress. Vital signs are stable afebrile. Pulse ox 99% on room air no signs of hypoxia. HEENT exam unremarkable. Neck nontender. No meningismus. No lymphadenopathy. Lungs clear to auscultation bilaterally. Heart regular rhythm no murmur. Chest wall nontender. Abdomen soft nontender. Normal bowel sounds no peritoneal signs. She is moving all 4 extremities. They are neurovascularly intact. She is track [place] in her right antecubital area. There is no abscess or cellulitis. Back is nontender. Neurologically she is awake and alert. Pupils are round reactive light. No facial droop. Normal speech. Equal and symmetrical internal consultant strength. Dorsi and plantar flexion are intact. Normal range of motion of both upper and lower extremities. Fingertip to nose is within normal limits. Her NIH score is 0. Test Results: A count of 15.7 H&H 12 and 37 no bands. Electrolytes unremarkable potassium of 3.3. Normal gap. Normal creatinine. Serum test is negative. Emergency Department Course and Treatment: Patient reportedly may have had a seizure. Her exam is unremarkable at this time. This may be secondary to sleep deprivation, could be secondary to withdrawal or drug abuse. She has had no head trauma and has a normal neurologic exam I Treatment Plan: Multiple repeat exams. Patient is resting more comfortably currently. She and I discussed and she would like to try detox again. She has been detoxed multiple times in the past. She does have a CIWA score of 25. I will speak to the hospitalist about admission. Disposition: Discharge Impression: Acute reported seizure Drug abuse Requesting detox for acute opiate withdrawal This note was generated with [employer] software. It may contain incorrect words, spelling, and punctuation that were not noted in review of the chart prior to signing ED Disposition - Plan for ED Patient: Chief Complaint: Seizure Referrals: Chantale Uriarte MD [Primary Care Provider] -
[2017-09-28] MEDS: Ondansetron 8 MG Tablet 4 MG PO (22:58)
[2017-09-28] MEDS: LORazepam 2 MG/ML Syringe 1 MG IM (22:58)
--- NOTE | 2017-09-28 23:01 | ED.RN ---
unable to obtain iv access. dr roy aware. med orders changed. lab called to attempt lab draw w/o iv access.
[2017-09-28 23:19] LABS: Absolute Lymphocyte Count 1.75 X10^3/ul (0.83-4.51); Basophil# 0.04 X10^3/uL; Basophil% 0.3 % (0-1); Eosinophil# 0.13 X10^3/uL; Eosinophils% 0.8 % (0-5); Hemoglobin 12.8 g/dl (12.0-15.0); Lymphocyte # 1.75 X10^3/ul (4.0); Lymphocyte % 11.2 % (19-41); Mean Corp Hgb Conc 34.6 g/gl (32-36); Mean Corpuscular Hgb 29.7 pg (27.0-32.0); Mean Corpuscular Volume 85.8 fL (81-99); Mean Platelet Vol. 9.7 fl (6.2-12.0); Monocyte# 0.75 X10^3/uL; Monocyte% 4.8 % (0-10); Neutrophil # 12.97 X10^3/uL (2.7-7.7); Neutrophil % 82.7 % (47-70); POSITIVE COUNT NO; POSITIVE DIFFERENTIAL NO; POSITIVE MORPHOLOGY NO; Platelet Count 220 K/mm3 (150-450); RBC Distribution Width CV 12.6 % (11.6-14.6); RBC Distribution Width SD 38.7 fl (35.1-43.9); Red Blood Count 4.31 M/mm3 (4.2-5.4); White Blood Count 15.7 K/mm3 (4.4-11.0)
[2017-09-28 23:31] LABS: Anion Gap 8 (5-15); BUN 4 mg/dL (7-18); BUN/Creat Ratio 6.2 RATIO (10-20); Calcium,Total 9.2 mg/dL (8.5-10.1); Chloride 107 mmol/L (98-107); Creatinine, Serum 0.64 mg/dL (0.55-1.02); EST Glomerular Filtration Rate 120 mL/min (>60); Est Glom Filt Rate - Afr Amer 145 mL/min (>60); Estimated Creatinine Clearance 97.36 ml/min; Glucose 85 mg/dL (74-106); Potassium 3.3 mmol/L (3.5-5.1); Sodium Level 140 mmol/L (136-145)
[2017-09-28 23:42] LABS: Pregnancy, Serum, hCG Quali. NEGATIVE Negative (0-9 Nonpreg)
[2017-09-28 23:58] VITALS: PULSE 68; RESP 17; O2SAT 100
[2017-09-29] VITALS (9 sets, daily range): BP systolic 97–130; BP diastolic 50–95; PULSE 54–91; RESP 14–19; TEMP 36.4–37.2; O2SAT 95–99; BMI 19.2
--- NOTE | 2017-09-29 00:07 | HP.PCM_ITS ---
Problem List (1) Borderline personality disorder Status: Chronic (2) Depression Status: Chronic (3) Drug abuse Status: Chronic Comment: heroin and cocaine (4) Bipolar disorder Status: Chronic Qualifiers: (5) Opiate withdrawal Status: Acute History of Present Illness Date of Admission: 09/29/17 Chief Complaint: Drug withdrawal and seizure. The patient is a 22 year old F with a significant history of borderline personality disorder, depression and IV drug use who has attempted multiple drug rehabilitation without success presenting with symptoms of drug withdrawal. The patient reports generalized body pain and restlessness. Also reportedly she had a seizure on the day of her presentation. Reportedly she used both IV cocaine and IV heroin within a day of her admission. Notably, patient was admitted in November of last year [facility] but did not complete the program. Past Medical History Past Medical History (Chronic Problems): Chronic Problems Borderline personality disorder (Chronic) Depression (Chronic) Drug abuse (Chronic) heroin and cocaine Bipolar disorder (Chronic) Allergies nickel [Nickel] Allergy (Verified 09/28/17 21:43) Unknown Penicillins Allergy (Verified 09/28/17 21:43) Shortness of breath doxycycline Adverse Reaction (Verified 09/28/17 21:43) Vomiting metronidazole [From Flagyl] Adverse Reaction (Verified 09/28/17 21:43) Upset Stomach sulfamethoxazole [From Bactrim] Adverse Reaction (Verified 09/28/17 21:43) Upset Stomach trimethoprim [From Bactrim] Adverse Reaction (Verified 09/28/17 21:43) Upset Stomach Home Medications: Ambulatory Orders Medication Instructions Recorded Acetaminophen [Tylenol Tablet] 650 mg PO Q4H PRN PRN tablet 12/07/16 Clonidine HCl 0.1 mg PO TID PRN PRN 12/07/16 Acyclovir [Zovirax] 400 mg PO BID 04/14/17 Ibuprofen 600 mg PO TID 05/04/17 Gabapentin [Neurontin] 600 mg PO TID 05/26/17 Surgical History: noncontributory Psychiatric History: Bipolar - maybe...there is a question zach after BPD on the notes from the counselling center. she carries a definite diagnosis of Borderline personality disorder., Depression ACCESS CONTROL OFFICER History: No pertinent ACCESS CONTROL OFFICER history Smoking Status: Current every day smoker Drugs: Cocaine, Heroin - *Family History Maternal History Items: No pertinent history Paternal History Items: No pertinent history Review of Systems Constitutional: Reports: - - Review of system difficult to obtain due to lack of cooperation from patient. Eyes: Reports: - - Review of system difficult to obtain due to lack of cooperation from patient. HEENT: Reports: - - Review of system difficult to obtain due to lack of cooperation from patient. Cardiovascular: Reports: - - Review of system difficult to obtain due to lack of cooperation from patient. Respiratory: Reports: Shortness of Breath, - Gastrointestinal: Reports: - - Review of system difficult to obtain due to lack of cooperation from patient. Genitourinary: Denies: Dysuria - Review of system difficult to obtain due to lack of cooperation from patient. Musculoskeletal: Reports: - - Generalized body pain Skin: Denies: Rash, Wounds Psychiatric: Reports: -. Denies: Homicidal Ideations, Suicidal Ideations Hematologic/ Lymphatic: Reports: - - Review of system difficult to obtain due to lack of cooperation from patient., - VTE Information - Inpt Only VTE Present on Admission: No VTE Mechan Device Prophylaxis: None VTE Pharm Prophylaxis ordered?: No Reason prophylaxis not ordered:: Treatment Not Indicated - Physical Exam General: Alert, Oriented x3, Cooperative HEENT: Atraumatic, PERRLA, EOMI, Normocephalic Neck: Supple, No JVD, Negative Carotid Bruits Lungs: Clear to auscultation, Normal air movement Cardiovascular: Regular rate, No murmurs Abdomen: Bowel Sounds Present, Soft, Non Tender Extremities: No edema, Capillary Refill Less than 3 Seconds Skin: No breakdown, - - Thorough skin examination could not be done due to uncooperativeness from patient. Musculoskeletal: - - Patient uncooperative for a thorough of musculoskeletal exams. Neurological: - - Uncooperative patient for a thorough exams. Psych/Mental Status: Agitated Vital Signs Temp Pulse Resp BP Pulse Ox 98.4 F 68 17 129/101 H 100 09/28/17 21:42 09/28/17 23:58 09/28/17 23:58 09/28/17 21:42 09/28/17 23:58 Oxygen Delivery Method Room Air Weight: 46.1 kg Body Mass Index (BMI) 19.8 Laboratory Tests Past 24 Hrs 09/28/17 09/28/17 09/28/17 23:08 23:08 23:08 WBC 15.7 H RBC 4.31 Hgb 12.8 Hct 37.0 MCV 85.8 MCH 29.7 MCHC 34.6 RDW 12.6 RDW Differential 38.7 Plt Count 220 MPV 9.7 Immature Gran % (Auto) 0.200 Neut % (Auto) 82.7 H Lymph % (Auto) 11.2 L Dubois % (Auto) 4.8 Eos % (Auto) 0.8 Baso % (Auto) 0.3 Absolute Neuts (auto) 13.0 H Absolute Lymphs (auto) 1.75 Total Counted Not Reportable Sodium 140 Potassium 3.3 L Chloride 107 Carbon Dioxide 25.0 Anion Gap 8 BUN 4 L Creatinine 0.64 Estim Creat Clear Calc 97.36 Est GFR (MDRD) Af Amer 145 Est GFR (MDRD) Non-Af 120 BUN/Creatinine Ratio 6.2 L Glucose 85 Calcium 9.2 Serum , Qual NEGATIVE Assessment/Plan All Active Problems Opiate withdrawal (Acute) Overdose (Resolved) The patient is a 22 year old F with a significant history of borderline personality disorder, depression and IV drug use who has attempted multiple drug rehabilitation without success presenting with symptoms of drug withdrawal and with a reported seizure activity. Acute drug withdrawal Reports seizure activity which may be attributed to drug withdrawal. Drug of choice cocaine and heroine which she uses both intravenously Urine drug screen and ethanol level ordered. Librium scheduled and as needed ordered. Gabapentin continued. Clonidine as needed. Antiemetics ordered as needed Mirapex. Case management consult. DVT prophylaxis Low risk Ambulation. Code Visit Inpatient E&M: 22918 Init Hosp L2
--- NOTE | 2017-09-29 00:07 | ED.RN ---
PT DOES NOT HAVE AN IV SEVERAL RNS WERE UNSUCCESSFUL IN ATTEMPTS TO PLACE ONE. DR. BLANCHARD AWARE AND STATES PT DOES NOT NEED IV FOR ADMISSION.
[2017-09-29] MEDS: chlordiazePOXIDE 25 MG Capsule PO ×2 (01:30→05:58)
[2017-09-29] MEDS: Pramipexole Di-HCl 0.25 MG Tablet PO ×2 (01:31→13:28)
[2017-09-29] MEDS: Ibuprofen 600 MG Tablet PO ×3 (01:31→20:04)
[2017-09-29 01:57] LABS: Mucous, Urine 0 SEEN /hpf (<or=2+); Red Blood Cells-Urine 0 SEEN /hpf (0-5)
[2017-09-29 01:59] LABS: Color, Urine Yellow (Yellow); Glucose, Dipstick Normal (Normal); Ketone-Dipstick Negative (Negative); Leukocyte Esterase-Dipstick Negative /ul (Negative); Nitrite-Dipstick Negative (Negative); Occult Blood-Urine Negative /ul (Negative); Protein-Dipstick Negative (Negative); Urine Bilirubin Dipstick Negative (Negative); Urine Clarity Clear (Clear); Urine Urobilinogen Normal (Normal)
[2017-09-29 02:05] LABS: Bacteria RARE /hpf (None Seen); Squamous Epithelial Cells - UA 0-5 SEEN /hpf (5-10); White Blood Cells 0-5 SEEN /hpf (0-5)
[2017-09-29 02:22] LABS: Amphetamine Urine VISTA NEGATIVE (<1000 ng/mL); Barbiturate Urine VISTA NEGATIVE (< 200 ng/mL); Benzodiazepine Urine VISTA NEGATIVE (< 200 ng/mL); Cocaine Urine VISTA POSITIVE (< 300 ng/mL); Ecstacy Urine VISTA NEGATIVE (< 500 ng/mL); Methadone Urine VISTA NEGATIVE (< 300 ng/mL); PCP Urine VISTA NEGATIVE (< 25 ng/mL); THC Urine VISTA NEGATIVE (< 50 ng/mL); Vista UDS pH Range 7
--- NOTE | 2017-09-29 02:24 | NURSING ---
left message for [facility] to evaluate pt today
[2017-09-29 04:24] LABS: Absolute Neutrophil Count 9.8 X10^3/uL (2.0-7.7); Basophil# 0.04 X10^3/uL; Basophil% 0.3 % (0-1); Eosinophil# 0.33 X10^3/uL; Eosinophils% 2.3 % (0-5); Hematocrit 34.8 % (37-47); Hemoglobin 11.7 g/dl (12.0-15.0); Lymphocyte % 21.8 % (19-41); Mean Corp Hgb Conc 33.6 g/gl (32-36); Mean Corpuscular Hgb 29.5 pg (27.0-32.0); Mean Corpuscular Volume 87.7 fL (81-99); Monocyte# 0.99 X10^3/uL; Monocyte% 6.9 % (0-10); Neutrophil # 9.76 X10^3/uL (2.7-7.7); Neutrophil % 68.5 % (47-70); Platelet Count 229 K/mm3 (150-450); RBC Distribution Width CV 12.5 % (11.6-14.6); RBC Distribution Width SD 39.3 fl (35.1-43.9); Red Blood Count 3.97 M/mm3 (4.2-5.4); White Blood Count 14.3 K/mm3 (4.4-11.0)
[2017-09-29 04:25] LABS: POSITIVE COUNT NO; POSITIVE DIFFERENTIAL NO; POSITIVE MORPHOLOGY NO
[2017-09-29 04:45] LABS: Alcohol, Blood (Medical)-Serum < 3.0 mg/dL
[2017-09-29 04:57] LABS: Anion Gap 8 (5-15); BUN 5 mg/dL (7-18); BUN/Creat Ratio 7.9 RATIO (10-20); Chloride 107 mmol/L (98-107); Creatinine, Serum 0.64 mg/dL (0.55-1.02); EST Glomerular Filtration Rate 121 mL/min (>60); Est Glom Filt Rate - Afr Amer 147 mL/min (>60); Estimated Creatinine Clearance 95.12 ml/min; Glucose 91 mg/dL (74-106); Potassium 3.9 mmol/L (3.5-5.1); Sodium Level 144 mmol/L (136-145)
[2017-09-29] MEDS: Acetaminophen 325 MG Tablet 650 MG PO ×2 (05:57→20:05)
[2017-09-29] MEDS: Ondansetron ODT 4 MG Tablet PO ×2 (05:58→20:05)
[2017-09-29] MEDS: BENZOCAINE/MENTHOL 1 LOZENGE MUCOUS MEM ×3 (05:58→23:19)
[2017-09-29] MEDS: Nicotine Polacrilex 2 MG GUM PO (05:58)
[2017-09-29] MEDS: cloNIDine HCl 0.1 MG Tablet PO ×3 (06:02→22:20)
[2017-09-29] MEDS: Gabapentin 600 MG Tablet PO (06:19)
--- NOTE | 2017-09-29 07:55 | CT_ITS ---
STUDY: CT BRAIN WITHOUT CONTRAST REASON FOR EXAM: Female, 22 years old. New onset of seizures and migraine headaches. RADIATION DOSAGE (If Supplied By Facility): CTDIvol = ( 44.99 ) mGy, DLP = ( 711.75 ) mGycm TECHNIQUE: Transaxial CT imaging of the brain was performed without administration of intravenous contrast material. Individualized dose optimization techniques were used for this CT. COMPARISON: Comparison is made with prior study dated May 06, 2013. FINDINGS: Normal soft tissue structures. Normal calvarium. Normal size ventricles and extra-axial spaces for the patient's age. Normal white matter tracts of the cerebral hemispheres. Normal basal ganglia and thalami. Normal brainstem. Normal cerebellum. There is no intracranial hemorrhage. There are no findings of an acute ischemic infarction. Normal visualized paranasal sinuses. CT/Brain/Head without Contrast IMPRESSION: Normal unenhanced CT scan of the brain. Electronically Signed: Jonathan Galvan MD at 8:46 EDT Tel [phone], Service support ,
--- NOTE | 2017-09-29 07:57 | PCM.PN.BLA ---
Progress Note Patient is a 22-year-old female with a past medical history of polydrug abuse, bipolar disorder, borderline personality disorder, hepatitis B, nicotine dependence and multiple drug overdoses in the past who presented to the emergency department at [facility] on 09/28/2017 that a friend she does drugs with told her she had a seizure. She admitted to using IV heroin and intravenous cocaine in the past few days. She has been in multiple drug rehab programs and failed. On her last admission to my service in November 2016 she left 4-5 hours after being admitted to the hospital. She became very agitated when I explained to her I would not be giving her prescriptions for controlled substances at discharge. Vital signs at presentation to the emergency room were temp 98.4, pulse rate 87, blood pressure 129/101, respiratory rate 18 and she was 99-100% saturated on room air. White blood cell count is elevated at 14.3 with a normal differential. Hemoglobin was 11.7 with normal RBC indices and a normal platelet count. Electrolytes were within normal limits and the BUN was 5 with a creatinine of 0.64. UA was negative for infection. Urine tox screen was positive for opiates and cocaine. No imaging of the head was done for reported seizure. She stated in the ER she wanted to be admitted for controlled withdrawal. She is afebrile, vital signs are stable and the current blood pressure is 119/80. She is 95-100% saturated on room air. She is foul mouthed and acting out. She has NOT been accepted into the [facility] because she was told in the past that she would not be accepted in the program after the last admission in November when the police had to be summoned to her room and escort her out for aggressive behavior....refused lab and medication. Has refused Seroquel today because she does not want to be doped up.......yet uses heroin/fentanyl/cocaine Alert, rude, yelling and profane Moving all extremities not tachypneic and no conversational dyspnea No edema ate the majority of her lunch and has been getting snacks. She has areas on her body where she has been picking and scratching her face is broken out. She looks as though she has been doing methamphetamine in addition to heroin, fentanyl and coke Impressions 1. Ongoing illicit drug use-presented to the emergency room complaining of a seizure and requesting detox 2. Reported seizure - she has no recollection - a friend she abuses drugs with told her she had a seizure 3. Bipolar disorder 4. Borderline personality disorder - she is very manipulative 5. Nicotine dependence 6. hx of Hepatitis B 7. Hx of genital herpes Discontinue benzodiazepines Start Seroquel 50 mg p.o. twice daily to control behavior - she refused. Start Suboxone taper The [facility] rep did assist her in arranging care post DC even though she is not on the [facility] program. CT brain was obtained today because of the reported seizure......it revealed no acute abnormalities She was told that if there is any aggressive behavior or she is verbally abusive and yelling she will be discharged No seizure activity since admission. There is evidence that she bit her tongue but she tells me she bites her tongue when she is sleeping and has nightmares
--- NOTE | 2017-09-29 08:05 | PN_ITS ---
Progress Note Patient is a 22-year-old female with a past medical history of polydrug abuse, bipolar disorder, borderline personality disorder, hepatitis B, nicotine dependence and multiple drug overdoses in the past who presented to the emergency department at [facility] on 09/28/2017 that a friend she does drugs with told her she had a seizure. She admitted to using IV heroin and intravenous cocaine in the past few days. She has been in multiple drug rehab programs and failed. On her last admission to my service in November 2016 she left 4-5 hours after being admitted to the hospital. She became very agitated when I explained to her I would not be giving her prescriptions for controlled substances at discharge. Vital signs at presentation to the emergency room were temp 98.4, pulse rate 87, blood pressure 129/101, respiratory rate 18 and she was 99-100% saturated on room air. White blood cell count is elevated at 14.3 with a normal differential. Hemoglobin was 11.7 with normal RBC indices and a normal platelet count. Electrolytes were within normal limits and the BUN was 5 with a creatinine of 0.64. UA was negative for infection. Urine tox screen was positive for opiates and cocaine. No imaging of the head was done for reported seizure. She stated in the ER she wanted to be admitted for controlled withdrawal. She is afebrile, vital signs are stable and the current blood pressure is 119/ 80. She is 95-100% saturated on room air. She is foul mouthed and acting out. She has NOT been accepted into the [facility] because she was told in the past that she would not be accepted in the program after the last admission in November when the police had to be summoned to her room and escort her out for aggressive behavior....refused lab and medication. Has refused Seroquel today because she does not want to be doped up.......yet uses heroin/fentanyl/ cocaine Alert, rude, yelling and profane Moving all extremities not tachypneic and no conversational dyspnea No edema ate the majority of her lunch and has been getting snacks. She has areas on her body where she has been picking and scratching her face is broken out. She looks as though she has been doing methamphetamine in addition to heroin, fentanyl and coke Impressions 1. Ongoing illicit drug use-presented to the emergency room complaining of a seizure and requesting detox 2. Reported seizure - she has no recollection - a friend she abuses drugs with told her she had a seizure 3. Bipolar disorder 4. Borderline personality disorder - she is very manipulative 5. Nicotine dependence 6. hx of Hepatitis B 7. Hx of genital herpes Discontinue benzodiazepines Start Seroquel 50 mg p.o. twice daily to control behavior - she refused. Start Suboxone taper The [facility] rep did assist her in arranging care post DC even though she is not on the [facility] program. CT brain was obtained today because of the reported seizure......it revealed no acute abnormalities She was told that if there is any aggressive behavior or she is verbally abusive and yelling she will be discharged No seizure activity since admission. There is evidence that she bit her tongue but she tells me she bites her tongue when she is sleeping and has nightmares
[2017-09-29] MEDS: Buprenorphine HCl 2 MG TAB.SUBL SL ×3 (08:32→23:16)
--- NOTE | 2017-09-29 09:32 | CASEMGMT ---
[place] spoke w/Donna from [facility]. It is not certain she will be part of the [facility] program, Donna will assist her however with aftercare plans. L[place]ON remains available for any discharge assistance. WENDY Ramirez, OFFICE MANAGER EXECUTIVE ASSISTANT
[2017-09-29] MEDS: Acyclovir 200 MG Capsule 400 MG PO ×2 (09:52→22:09)
--- NOTE | 2017-09-29 16:36 | CHAPLAIN ---
Type of Pastoral Visit _x__ Initial Visit ___ Follow-up Visit ___ On-call Visit ___ General Patient Visit ___ Spiritual Assessment ___ Family Conference ___ Bereavement ___ Rapid Response ___ Code Blue ___ Other (describe below) Pastoral Care Referral From _x__ Patient ___ Family ___ Nurse ___ Physician ___ Civil Manager ___ [employer] Medic ___ Other (describe below) Sacrament/Intervention _x__ Active listening ___ Anointing ___ Confucianist ___ Bereavement ___ Communion _x__ Stacy exploration ___ _x__ Life review _x__ Prayer ___ Reconciliation ___ Sacrament of Sick _x__ Supportive presence ___ Wedding ___ Other (describe below) Pastoral Comments patient made request to RN for visit by air press operator; gave pt opportunity to talk; pt has some supportive people in her life but has had relapses previously; pt made request for some coloring pages and pencils which I went to get for her and then returned; pt received prayer
[2017-09-29] MEDS: hydrOXYzine PAM 25 MG Capsule 50 MG PO (22:09)
[2017-09-30] MEDS: Pramipexole Di-HCl 0.25 MG Tablet PO ×2 (01:00→19:23)
[2017-09-30 02:00] VITALS: BP 95/58; PULSE 65; RESP 15; TEMP 36.4
[2017-09-30] MEDS: cloNIDine HCl 0.1 MG Tablet PO ×5 (02:55→21:36)
[2017-09-30 06:00] VITALS: RESP 15
[2017-09-30 08:15] VITALS: BP 104/53; PULSE 65; RESP 16; TEMP 36.7; O2SAT 100
[2017-09-30] MEDS: Buprenorphine HCl 2 MG TAB.SUBL SL ×2 (08:19→16:01)
[2017-09-30] MEDS: Ibuprofen 600 MG Tablet PO ×2 (08:29→16:01)
[2017-09-30] MEDS: BENZOCAINE/MENTHOL 1 LOZENGE MUCOUS MEM (08:34)
[2017-09-30] MEDS: Acetaminophen 325 MG Tablet 650 MG PO (10:04)
[2017-09-30] MEDS: Acyclovir 200 MG Capsule 400 MG PO ×2 (10:05→21:36)
--- NOTE | 2017-09-30 10:19 | PCM.PN.HOSP ---
Subjective: Is a 23-year-old female with a history of polysubstance abuse, bipolar borderline personality disorder, hepatitis B and nicotine dependence as well as multiple drug overdoses in the past. She is admitted on 09/28/2017 after she was told by a friend that she uses drugs with that she had a seizure. She admitted to using IV heroin and IV cocaine in the past few days. Urine tox was positive for opiates and cocaine. No imaging was done of the head at time of admission for reported seizure. She has had no seizures since admission. She has been managed for heroin and cocaine withdrawal. Next Patient seen and examined. Patient was agitated because she says she was started on Seroquel which she does not like she thinks he can give her psychotic episode. She was also unhappy with her nurse and did not want to be in the hospital because she said her medications have been changed. She also complained that she was not getting enough of the clonidine and Vistaril and as such was unable to sleep. She is looking forward to going to a rehab facility upon discharge in [place]. She says she is due to be admitted on Monday. Review of systems otherwise negative. Patient also wanted her nurse to be changed because she said the nurse was not being nice to her. Vitals/I&O's: Vital Signs Temp Pulse Resp BP Pulse Ox 98.1 F 65 16 104/53 L 100 09/30/17 08:15 09/30/17 08:15 09/30/17 08:15 09/30/17 08:15 09/30/17 08:15 Oxygen Delivery Method Room Air Weight: 97 lb 15.998 oz Body Mass Index (BMI) 19.2 Intake and Output for Last 24 Hours 09/28/17 09/29/17 09/30/17 23:59 23:59 23:59 Intake Total 1850 / 1850 1000 / 1000 Balance 1850 / 1850 1000 / 1000 General: Alert, Oriented x3, - - Agitated and not very cooperative. HEENT: Atraumatic, PERRLA, EOMI, Normocephalic Oral: Moist Mucosa Neck: Supple, No JVD, Negative Carotid Bruits Lungs: Clear to auscultation, Normal air movement, No rhonchi, No wheeze, No rales Cardiovascular: Regular rate, Regular Rhythm, Normal S1, Normal S2, No murmurs Abdomen: Bowel Sounds Present, Soft, Non Tender, Non-Distended, No Hepato-splenomegaly Extremities: No clubbing, No cyanosis, No edema, Capillary Refill Less than 3 Seconds Skin: - - Resolving scabs over her face Musculoskeletal: No Tenderness to Palpation of Joints or Extremities Lymphatic: No Cervical, Supraclavicular, or Inguinal Adenopathy Neurological: Cranial nerves II-XII grossly intact, Motor Exam 5/5 strength throughout Psych/Mental Status: Agitated, Impulsive, Alert and oriented to time, place, person, mood and affect Current Medications Acetaminophen (Tylenol) 650 mg PO Q4H PRN PRN PRN Reason: Temp>99.1F Last Admin: 09/30/17 10:04 Dose: 650 mg Acyclovir (Zovirax) 400 mg PO BID [facility] Last Admin: 09/30/17 10:05 Dose: 400 mg Bisacodyl (Dulcolax) 5 mg PO DAILY PRN PRN PRN Reason: Constipation Buprenorphine HCl (Buprenorphine Hcl) 2 mg SL Q8H [facility] PRN Reason: Taper Stop: 10/02/17 12:14 Last Admin: 09/30/17 08:19 Dose: 2 mg Clonidine (Catapres) 0.1 mg PO Q2H PRN PRN PRN Reason: Hot/Cold Sweats or Anxiety Last Admin: 09/30/17 10:05 Dose: 0.1 mg Hydroxyzine Pamoate (Vistaril Pamoate Capsule) 50 mg PO Q6H PRN PRN PRN Reason: Mild Anxiety Last Admin: 09/29/17 22:09 Dose: 50 mg Ibuprofen (Motrin) 600 mg PO TID PRN PRN PRN Reason: PAIN Last Admin: 09/30/17 08:29 Dose: 600 mg Magnesium Hydroxide (Milk Of Magnesia) 30 ml PO DAILY PRN PRN PRN Reason: Constipation Nicotine (Nicoderm Cq (Pbkc)) 14 mg TRANSDERM. DAILY [facility] Last Admin: 09/30/17 10:05 Dose: 14 mg Nicotine Polacrilex (Rugby Nicotine (Bkc)) 2 mg PO Q2H PRN PRN PRN Reason: Nicotine Craving Last Admin: 09/29/17 05:58 Dose: 2 mg Nutritional Formula (Lactose Free) (Ensure Clear) 120 ml PO 4X/DAY [facility] Last Admin: 09/30/17 08:35 Dose: 120 mls Ondansetron HCl (Zofran Odt) 4 mg PO Q6H PRN PRN PRN Reason: NAUSEA Last Admin: 09/29/17 20:05 Dose: 4 mg Pramipexole Dihydrochloride (Mirapex) 0.25 mg PO Q12H PRN PRN PRN Reason: Restless Legs Last Admin: 09/30/17 01:00 Dose: 0.25 mg Quetiapine Fumarate (Seroquel) 50 mg PO BID [facility] Last Admin: 09/30/17 08:36 Dose: Not Given Throat Lozenges (Cepacol Sore Throat Lozenge) 1 lozenge MUCOUS MEM Q4H PRN PRN PRN Reason: sore mouth Last Admin: 09/30/17 08:34 Dose: 1 lozenge Medical Necessity - Tobacco Use Smoking Status: Current every day smoker Tobacco Use: Cigarettes Assessment/Plan All Active Problems Opiate withdrawal (Acute) Overdose (Resolved) 22-year-old with history of polysubstance abuse, bipolar disorder, personality disorder, hepatitis B, nicotine dependence and multiple drug overdoses. She was admitted for chemical withdrawal 1. Polysubstance abuse Patient agitated because she was started on Seroquel yesterday she was read as stated. Patient refuses Seroquel. On cocaine and heroin withdrawal protocol per [facility] protocol due to be discharged to a rehab facility in [place] on Monday Benzodiazepines discontinued. On Suboxone taper. Was started on Seroquel 50 mg twice daily to control his behavior. However patient has refused to take it. 2. Reported seizure told by friend she had a seizure; no history of seizures. Has not had any seizures since admission. Will monitor. 3. Bipolar and borderline personality disorder: not currently seeing a psychiatrist as she says she doesnt like her current psychiatrist. Very agitated and aggressive. 4. Nicotine dependence: nicotine patch 5. History of hepatitis B: treatment naive. Counselled on quitting drugs so she can be referred for treatment. 7. DVT prophylaxis: Encourage ambulation Code Visit Inpatient E&M: 37456 Subs Hosp L2
--- NOTE | 2017-09-30 10:27 | PN_ITS ---
Subjective: Is a 23-year-old female with a history of polysubstance abuse, bipolar borderline personality disorder, hepatitis B and nicotine dependence as well as multiple drug overdoses in the past. She is admitted on 09/28/2017 after she was told by a friend that she uses drugs with that she had a seizure. She admitted to using IV heroin and IV cocaine in the past few days. Urine tox was positive for opiates and cocaine. No imaging was done of the head at time of admission for reported seizure. She has had no seizures since admission. She has been managed for heroin and cocaine withdrawal. Next Patient seen and examined. Patient was agitated because she says she was started on Seroquel which she does not like she thinks he can give her psychotic episode. She was also unhappy with her nurse and did not want to be in the hospital because she said her medications have been changed. She also complained that she was not getting enough of the clonidine and Vistaril and as such was unable to sleep. She is looking forward to going to a rehab facility upon discharge in [place]. She says she is due to be admitted on Monday. Review of systems otherwise negative. Patient also wanted her nurse to be changed because she said the nurse was not being nice to her. Vitals/I&O's: Vital Signs Temp Pulse Resp BP Pulse Ox 98.1 F 65 16 104/53 L 100 09/30/17 08:15 09/30/17 08:15 09/30/17 08:15 09/30/17 08:15 09/30/17 08:15 Oxygen Delivery Method Room Air Weight: 97 lb 15.998 oz Body Mass Index (BMI) 19.2 Intake and Output for Last 24 Hours 09/28/17 09/29/17 09/30/17 23:59 23:59 23:59 Intake Total 1850 / 1850 1000 / 1000 Balance 1850 / 1850 1000 / 1000 General: Alert, Oriented x3, - - Agitated and not very cooperative. HEENT: Atraumatic, PERRLA, EOMI, Normocephalic Oral: Moist Mucosa Neck: Supple, No JVD, Negative Carotid Bruits Lungs: Clear to auscultation, Normal air movement, No rhonchi, No wheeze, No rales Cardiovascular: Regular rate, Regular Rhythm, Normal S1, Normal S2, No murmurs Abdomen: Bowel Sounds Present, Soft, Non Tender, Non-Distended, No Hepato- splenomegaly Extremities: No clubbing, No cyanosis, No edema, Capillary Refill Less than 3 Seconds Skin: - - Resolving scabs over her face Musculoskeletal: No Tenderness to Palpation of Joints or Extremities Lymphatic: No Cervical, Supraclavicular, or Inguinal Adenopathy Neurological: Cranial nerves II-XII grossly intact, Motor Exam 5/5 strength throughout Psych/Mental Status: Agitated, Impulsive, Alert and oriented to time, place, person, mood and affect Current Medications Acetaminophen (Tylenol) 650 mg PO Q4H PRN PRN PRN Reason: Temp>99.1F Last Admin: 09/30/17 10:04 Dose: 650 mg Acyclovir (Zovirax) 400 mg PO BID [facility] Last Admin: 09/30/17 10:05 Dose: 400 mg Bisacodyl (Dulcolax) 5 mg PO DAILY PRN PRN PRN Reason: Constipation Buprenorphine HCl (Buprenorphine Hcl) 2 mg SL Q8H [facility] PRN Reason: Taper Stop: 10/02/17 12:14 Last Admin: 09/30/17 08:19 Dose: 2 mg Clonidine (Catapres) 0.1 mg PO Q2H PRN PRN PRN Reason: Hot/Cold Sweats or Anxiety Last Admin: 09/30/17 10:05 Dose: 0.1 mg Hydroxyzine Pamoate (Vistaril Pamoate Capsule) 50 mg PO Q6H PRN PRN PRN Reason: Mild Anxiety Last Admin: 09/29/17 22:09 Dose: 50 mg Ibuprofen (Motrin) 600 mg PO TID PRN PRN PRN Reason: PAIN Last Admin: 09/30/17 08:29 Dose: 600 mg Magnesium Hydroxide (Milk Of Magnesia) 30 ml PO DAILY PRN PRN PRN Reason: Constipation Nicotine (Nicoderm Cq (Pbkc)) 14 mg TRANSDERM. DAILY [facility] Last Admin: 09/30/17 10:05 Dose: 14 mg Nicotine Polacrilex (Rugby Nicotine (Bkc)) 2 mg PO Q2H PRN PRN PRN Reason: Nicotine Craving Last Admin: 09/29/17 05:58 Dose: 2 mg Nutritional Formula (Lactose Free) (Ensure Clear) 120 ml PO 4X/DAY [facility] Last Admin: 09/30/17 08:35 Dose: 120 mls Ondansetron HCl (Zofran Odt) 4 mg PO Q6H PRN PRN PRN Reason: NAUSEA Last Admin: 09/29/17 20:05 Dose: 4 mg Pramipexole Dihydrochloride (Mirapex) 0.25 mg PO Q12H PRN PRN PRN Reason: Restless Legs Last Admin: 09/30/17 01:00 Dose: 0.25 mg Quetiapine Fumarate (Seroquel) 50 mg PO BID [facility] Last Admin: 09/30/17 08:36 Dose: Not Given Throat Lozenges (Cepacol Sore Throat Lozenge) 1 lozenge MUCOUS MEM Q4H PRN PRN PRN Reason: sore mouth Last Admin: 09/30/17 08:34 Dose: 1 lozenge Medical Necessity - Tobacco Use Smoking Status: Current every day smoker Tobacco Use: Cigarettes Assessment/Plan All Active Problems Opiate withdrawal (Acute) Overdose (Resolved) 22-year-old with history of polysubstance abuse, bipolar disorder, personality disorder, hepatitis B, nicotine dependence and multiple drug overdoses. She was admitted for chemical withdrawal 1. Polysubstance abuse * Patient agitated because she was started on Seroquel yesterday she was read as stated. Patient refuses Seroquel. * On cocaine and heroin withdrawal protocol per [facility] protocol * due to be discharged to a rehab facility in [place] on Monday * Benzodiazepines discontinued. On Suboxone taper. Was started on Seroquel 50 mg twice daily to control his behavior. However patient has refused to take it. * 2. Reported seizure * told by friend she had a seizure; no history of seizures. Has not had any seizures since admission. Will monitor. * 3. Bipolar and borderline personality disorder: not currently seeing a psychiatrist as she says she doesnt like her current psychiatrist. Very agitated and aggressive. 4. Nicotine dependence: nicotine patch 5. History of hepatitis B: treatment naive. Counselled on quitting drugs so she can be referred for treatment. 7. DVT prophylaxis: Encourage ambulation Code Visit Inpatient E&M: 24901 [facility] Hosp L2
[2017-09-30 15:58] VITALS: BP 94/50; PULSE 75; RESP 14; TEMP 37
[2017-09-30 21:26] VITALS: BP 106/74; PULSE 71; RESP 16; TEMP 37.1; O2SAT 99
[2017-09-30 21:28] VITALS: BP 106/74; PULSE 71; RESP 16; TEMP 37.1
[2017-09-30] MEDS: Nicotine Polacrilex 2 MG GUM PO (21:36)
[2017-09-30] MEDS: hydrOXYzine PAM 25 MG Capsule 50 MG PO (21:36)
[2017-10-01] VITALS (7 sets, daily range): BP systolic 90–107; BP diastolic 49–68; PULSE 59–87; RESP 16–18; TEMP 36.6–36.9; O2SAT 95–96
[2017-10-01] MEDS: Ondansetron ODT 4 MG Tablet PO ×2 (00:17→12:21)
[2017-10-01] MEDS: Buprenorphine HCl 2 MG TAB.SUBL SL ×2 (00:17→11:57)
--- NOTE | 2017-10-01 09:01 | NURSING ---
This nurse attempted to do withdrawal assessment on pt, when asked what kind of symptoms pt was having and if she needed prn medications so help with anxiety ex, pt became belligerent started yelling curse words, stated the only think i want is clonidine explained to pt that her pulse and bp where to low at this time to take this medication. Pt then refused to take any am pills and then yelled then get the f out of my room.
--- NOTE | 2017-10-01 09:46 | PCM.PN.HOSP ---
Subjective: Is a 23-year-old female with a history of polysubstance abuse, bipolar borderline personality disorder, hepatitis B and nicotine dependence as well as multiple drug overdoses in the past. She is admitted on 09/28/2017 after she was told by a friend that she uses drugs with that she had a seizure. She admitted to using IV heroin and IV cocaine in the past few days. Urine tox was positive for opiates and cocaine. No imaging was done of the head at time of admission for reported seizure. She has had no seizures since admission. She has been managed for heroin and cocaine withdrawal. Patient seen and examined. Patient is very agitated and combative and was very aggressive. She thinks her caries been messed up in a slight her nurse earlier today and now has an S. She now states he does not want to go to the new facility in [place] that she had informed me she has been sent on Monday. Decision was to stay he had completed detox process. She thinks her medications are being messed up and had detox process has not been taken seriously by the staff and threatens to call her direct response consultant because she wants to fire the physician and nurses. According to patient [facility] is messed up to put it mildly, however she wants to stay here to complete her detox and does not want to leave. Vitals/I&O's: Vital Signs Temp Pulse Resp BP Pulse Ox 98.4 F 59 L 18 90/49 L 99 10/01/17 08:48 10/01/17 08:50 10/01/17 08:48 10/01/17 08:48 09/30/17 21:26 Oxygen Delivery Method Room Air Weight: 97 lb 15.998 oz Body Mass Index (BMI) 19.2 Intake and Output for Last 24 Hours 09/29/17 09/30/17 10/01/17 23:59 23:59 23:59 Intake Total 1849 / 0 1360 / 1360 474 / 474 Balance [id number] 1360 / 1360 474 / 474 General: Alert, Oriented x3, Non-Cooperative, - - Very agitated and combative; refuses any physical examination HEENT: PERRLA, EOMI, Normocephalic Psych/Mental Status: Agitated, Irrational Behavior, Manic Impressions Brain CT 09/29/17 07:55 IMPRESSION: Normal unenhanced CT scan of the brain. Electronically Signed: Jonathan Galvan MD at 8:46 EDT Tel [phone], Service support , Current Medications Acetaminophen (Tylenol) 650 mg PO Q4H PRN PRN PRN Reason: Temp>99.1F Last Admin: 09/30/17 10:04 Dose: 650 mg Acyclovir (Zovirax) 400 mg PO BID [facility] Last Admin: 10/01/17 08:55 Dose: Not Given Bisacodyl (Dulcolax) 5 mg PO DAILY PRN PRN PRN Reason: Constipation Buprenorphine HCl (Buprenorphine Hcl) 2 mg SL Q12H [facility] PRN Reason: Taper Stop: 10/02/17 12:14 Last Admin: 10/01/17 00:17 Dose: 2 mg Clonidine (Catapres) 0.1 mg PO Q2H PRN PRN PRN Reason: Hot/Cold Sweats or Anxiety Last Admin: 09/30/17 21:36 Dose: 0.1 mg Hydroxyzine Pamoate (Vistaril Pamoate Capsule) 50 mg PO Q6H PRN PRN PRN Reason: Mild Anxiety Last Admin: 09/30/17 21:36 Dose: 50 mg Ibuprofen (Motrin) 600 mg PO TID PRN PRN PRN Reason: PAIN Last Admin: 09/30/17 16:01 Dose: 600 mg Magnesium Hydroxide (Milk Of Magnesia) 30 ml PO DAILY PRN PRN PRN Reason: Constipation Nicotine (Nicoderm Cq (Pbkc)) 14 mg TRANSDERM. DAILY [facility] Last Admin: 10/01/17 08:54 Dose: Not Given Nicotine Polacrilex (Rugby Nicotine (Bkc)) 2 mg PO Q2H PRN PRN PRN Reason: Nicotine Craving Last Admin: 09/30/17 21:36 Dose: 2 mg Nutritional Formula (Lactose Free) (Ensure Clear) 120 ml PO 4X/DAY [facility] Last Admin: 10/01/17 08:54 Dose: Not Given Ondansetron HCl (Zofran Odt) 4 mg PO Q6H PRN PRN PRN Reason: NAUSEA Last Admin: 10/01/17 00:17 Dose: 4 mg Pramipexole Dihydrochloride (Mirapex) 0.25 mg PO Q12H PRN PRN PRN Reason: Restless Legs Last Admin: 09/30/17 19:23 Dose: 0.25 mg Quetiapine Fumarate (Seroquel) 50 mg PO BID [facility] Last Admin: 10/01/17 08:55 Dose: Not Given Throat Lozenges (Cepacol Sore Throat Lozenge) 1 lozenge MUCOUS MEM Q4H PRN PRN PRN Reason: sore mouth Last Admin: 09/30/17 08:34 Dose: 1 lozenge Medical Necessity - Tobacco Use Smoking Status: Current every day smoker Tobacco Use: Cigarettes Assessment/Plan All Active Problems Opiate withdrawal (Acute) Overdose (Resolved) 22-year-old with history of polysubstance abuse, bipolar disorder, personality disorder, hepatitis B, nicotine dependence and multiple drug overdoses. She was admitted for chemical withdrawal 1. Polysubstance abuse patient is very agitated and combative today. Says she doesnt want to go to the facility at [place], and wants to stay here to complete the inpatient detox. per documentation, patient is not being accepted by [facility], allegedly because of her behaviout. She is therefore to be sent to a new facility in [place] on Monday; patient however refuses to go, and is very aggressive. She fired her nurse this morning, and wants to fire me as well since she says we are not taking her detox seriously. currently on suboxone taper. Refused seroquel which was started because of her aggressive, psychotic behaviour patient counseled that upper caser will be here tomorrow, and will throw more light on the [facility] process and new admission in [place]. 2. Reported seizure told by friend she had a seizure; no history of seizures. Has not had any seizures since admission. Will monitor. CT head was negative. 3. Bipolar and borderline personality disorder: not currently seeing a psychiatrist as she says she doesnt like her current psychiatrist. Very agitated and aggressive. 4. Nicotine dependence: nicotine patch 5. History of hepatitis B: treatment naive. Counselled on quitting drugs so she can be referred for treatment. 7. DVT prophylaxis: Encourage ambulation Code Visit Inpatient E&M: 07842 [facility] Hosp L2
[2017-10-01] MEDS: Ibuprofen 600 MG Tablet PO (12:21)
[2017-10-01] MEDS: cloNIDine HCl 0.1 MG Tablet PO ×3 (12:21→18:58)
[2017-10-01] MEDS: Acyclovir 200 MG Capsule 400 MG PO (12:22)
[2017-10-01] MEDS: BENZOCAINE/MENTHOL 1 LOZENGE MUCOUS MEM (12:30)
[2017-10-01] MEDS: Nicotine Polacrilex 2 MG GUM PO (12:30)
[2017-10-01] MEDS: Pramipexole Di-HCl 0.25 MG Tablet PO (16:28)
[2017-10-01] MEDS: Acetaminophen 325 MG Tablet 650 MG PO (18:58)
[2017-10-01] MEDS: hydrOXYzine PAM 25 MG Capsule 50 MG PO (18:58)
[2017-10-02] MEDS: Acyclovir 200 MG Capsule 400 MG PO ×2 (00:50→09:57)
[2017-10-02] MEDS: hydrOXYzine PAM 25 MG Capsule 50 MG PO (00:51)
[2017-10-02] MEDS: Acetaminophen 325 MG Tablet 650 MG PO (00:51)
[2017-10-02] MEDS: cloNIDine HCl 0.1 MG Tablet PO ×2 (00:51→09:57)
[2017-10-02] MEDS: Buprenorphine HCl 2 MG TAB.SUBL SL (00:51)
[2017-10-02 00:55] VITALS: BP 91/53; PULSE 67; RESP 16; TEMP 36.9
[2017-10-02 00:56] VITALS: BP 91/53; PULSE 67; RESP 16; TEMP 36.9; O2SAT 99
[2017-10-02 07:10] VITALS: O2SAT 98
[2017-10-02] MEDS: Ondansetron ODT 4 MG Tablet PO (09:40)
--- NOTE | 2017-10-02 09:56 | CASEMGMT ---
Pt's mother came to the nurse's station asking to find out the plan for pt, and also expressing concern that pt has been off of her mental meds. She also asked where pt is going after here. SW called Donna, she states she does not have consent from pt to speak w/her mother. SW spoke w/pt, she gave SW permission to let pt's mother know where pt is going. SW did let pt's mother know where pt is going for detox. Dr. Mcnulty spoke w/pt and mother, he is prescribing meds for pt. Donna from [facility] checked with the facility where pt is going, she can be on these meds, she needs to bring them with her in the original bottles. SW let physician know this, he is sending the scripts to the hospital's retail pharmacy so pt can pick them up on her way out. SW let pt know, pt states understanding. SW remains available for any additional needs. WENDY Ramirez, TECHNICAL PROPOSAL WRITER
[2017-10-02 10:00] VITALS: BP 104/68; PULSE 62; RESP 18; TEMP 36.8
--- NOTE | 2017-10-02 10:00 | DCINST_ITS ---
You will use the following diet at home:: No restrictions Your food should be the consistency of: Regular Your liquids should be the consistency of: Regular/Thin Discharge Activity: Return to Normal Activity Weight Bearing Status: Full weight bearing Allergies/Adverse Reactions: Allergies nickel [Nickel] Allergy (Verified 09/28/17 21:43) Unknown Penicillins Allergy (Verified 09/28/17 21:43) Shortness of breath doxycycline Adverse Reaction (Verified 09/28/17 21:43) Vomiting metronidazole [From Flagyl] Adverse Reaction (Verified 09/28/17 21:43) Upset Stomach sulfamethoxazole [From Bactrim] Adverse Reaction (Verified 09/28/17 21:43) Upset Stomach trimethoprim [From Bactrim] Adverse Reaction (Verified 09/28/17 21:43) Upset Stomach Medications to take at Discharge Acetaminophen [Tylenol Tablet] 650 mg PO Q4H PRN PRN #100 tab 10/02/17 Acyclovir [Zovirax] 400 mg PO BID #60 tab 10/02/17 Clonidine HCl 0.05 mg PO TID PRN PRN #45 tab 10/02/17 Escitalopram Oxalate [Lexapro] 10 mg PO DAILY #30 tab 10/02/17 Gabapentin [Neurontin] 600 mg PO TID #90 tab 10/02/17 Ibuprofen 600 mg PO TID #90 tab 10/02/17 Lamotrigine [Lamictal] 25 mg PO DAILY #60 tab 10/02/17 The following prescriptions were given: Acetaminophen [Tylenol Tablet] 650 mg PO Q4H PRN PRN #100 tab PRN Reason: Temp>99.1F Clonidine HCl 0.05 mg PO TID PRN PRN #45 tab PRN Reason: Restlessness Escitalopram Oxalate [Lexapro] 10 mg PO DAILY #30 tab Lamotrigine [Lamictal] 25 mg PO DAILY #60 tab Acyclovir [Zovirax] 400 mg PO BID #60 tab Gabapentin [Neurontin] 600 mg PO TID #90 tab Ibuprofen 600 mg PO TID #90 tab Primary Care Physician: Chantale Uriarte MD [Primary Care Provider] - Please follow up with your Primary Care Physician in: when your detox program is finished Test Results: Test results from this visit will be discussed in further detail at your follow- up appointment, if applicable.
[2017-10-02 11:56] VITALS: BP 104/68; PULSE 62; RESP 18; TEMP 37.2; O2SAT 98
--- NOTE | 2017-10-05 10:29 | PCM.DC.SUM ---
Discharge Date and Diagnosis Date of Admission: 09/29/17 Date of Discharge: 10/02/17 - Primary Discharge Diagnosis #1 acute withdrawal from opiates #2 cocaine abuse #3 opiate abuse #4 bipolar disorder #5 possible seizure secondary to drug withdrawal - Secondary Discharge Diagnosis Chronic Problems Borderline personality disorder (Chronic) Depression (Chronic) Drug abuse (Chronic) heroin and cocaine Bipolar disorder (Chronic) Hospital Course and Treatment Operations: None Procedures: None Summary of Care Provided: The patient is a 22 year old F was seen in the emergency room at [facility] requesting detox from opiates, she had reported that she may have had a seizure at home. Patient also had psychiatric disorders including bipolar disorder and possible borderline personality disorder. Patient was agitated and in the emergency room, she was admitted to [place] [address] and placed on medications including Seroquel which she refused to take. Patient had no major complications during her hospital stay, arrangements were made for her to go to a inpatient drug rehab facility, she was not a medical stabilization patient during this hospital stay however. On 10/02/17, patient was seen and examined, I had a long conversation with her about medications and I decided to place her on several medications for bipolar disorder, patient states that she had been on Lamictal before and had had no problems with this medication. She also requested Lexapro which I agreed to place her on. Patient was discharged on 10/02/17 in stable condition Discharge Activity: Return to Normal Activity Weight Bearing Status: Full weight bearing Home Medications: Medications to take at Discharge Acetaminophen [Tylenol Tablet] 650 mg PO Q4H PRN PRN #100 tab 10/02/17 Acyclovir [Zovirax] 400 mg PO BID #60 tab 10/02/17 Clonidine HCl 0.05 mg PO TID PRN PRN #45 tab 10/02/17 Escitalopram Oxalate [Lexapro] 10 mg PO DAILY #30 tab 10/02/17 Gabapentin [Neurontin] 600 mg PO TID #90 tab 10/02/17 Ibuprofen 600 mg PO TID #90 tab 10/02/17 Lamotrigine [Lamictal] 25 mg PO DAILY #60 tab 10/02/17 Following Prescrptions Were Given to Patient: Acetaminophen [Tylenol Tablet] 650 mg PO Q4H PRN PRN #100 tab PRN Reason: Temp>99.1F Clonidine HCl 0.05 mg PO TID PRN PRN #45 tab PRN Reason: Restlessness Escitalopram Oxalate [Lexapro] 10 mg PO DAILY #30 tab Lamotrigine [Lamictal] 25 mg PO DAILY #60 tab Acyclovir [Zovirax] 400 mg PO BID #60 tab Gabapentin [Neurontin] 600 mg PO TID #90 tab Ibuprofen 600 mg PO TID #90 tab Primary Care Physician: Chantale Uriarte MD [Primary Care Provider] - Please follow up with your Primary Care Physician in: when your detox program is finished Disposition: Inpt Rehab Unit/Facility Minutes spent on discharge:: 32 Patient Condition:: Stable Medical Necessity - Tobacco Use Smoking Status: Current every day smoker Tobacco Use: Cigarettes Meaningful Use Info Meaningful Use Diagnoses (Choose all that apply): None applicable Code Visit Inpatient E&M: 47838 Disch Hosp
--- NOTE | 2017-10-05 10:41 | DS.PCM_ITS ---
Discharge Date and Diagnosis Date of Admission: 09/29/17 Date of Discharge: 10/02/17 - Primary Discharge Diagnosis #1 acute withdrawal from opiates #2 cocaine abuse #3 opiate abuse #4 bipolar disorder #5 possible seizure secondary to drug withdrawal - Secondary Discharge Diagnosis Chronic Problems Borderline personality disorder (Chronic) Depression (Chronic) Drug abuse (Chronic) heroin and cocaine Bipolar disorder (Chronic) Hospital Course and Treatment Operations: None Procedures: None Summary of Care Provided: The patient is a 22 year old F was seen in the emergency room at [facility] requesting detox from opiates, she had reported that she may have had a seizure at home. Patient also had psychiatric disorders including bipolar disorder and possible borderline personality disorder. Patient was agitated and in the emergency room, she was admitted to [place] [address] and placed on medications including Seroquel which she refused to take. Patient had no major complications during her hospital stay, arrangements were made for her to go to a inpatient drug rehab facility, she was not a medical stabilization patient during this hospital stay however. On 10/02/17, patient was seen and examined, I had a long conversation with her about medications and I decided to place her on several medications for bipolar disorder, patient states that she had been on Lamictal before and had had no problems with this medication. She also requested Lexapro which I agreed to place her on. Patient was discharged on in stable condition Discharge Activity: Return to Normal Activity Weight Bearing Status: Full weight bearing Home Medications: Medications to take at Discharge Acetaminophen [Tylenol Tablet] 650 mg PO Q4H PRN PRN #100 tab 10/02/17 Acyclovir [Zovirax] 400 mg PO BID #60 tab 10/02/17 Clonidine HCl 0.05 mg PO TID PRN PRN #45 tab 10/02/17 Escitalopram Oxalate [Lexapro] 10 mg PO DAILY #30 tab 10/02/17 Gabapentin [Neurontin] 600 mg PO TID #90 tab 10/02/17 Ibuprofen 600 mg PO TID #90 tab 10/02/17 Lamotrigine [Lamictal] 25 mg PO DAILY #60 tab 10/02/17 Following Prescrptions Were Given to Patient: Acetaminophen [Tylenol Tablet] 650 mg PO Q4H PRN PRN #100 tab PRN Reason: Temp>99.1F Clonidine HCl 0.05 mg PO TID PRN PRN #45 tab PRN Reason: Restlessness Escitalopram Oxalate [Lexapro] 10 mg PO DAILY #30 tab Lamotrigine [Lamictal] 25 mg PO DAILY #60 tab Acyclovir [Zovirax] 400 mg PO BID #60 tab Gabapentin [Neurontin] 600 mg PO TID #90 tab Ibuprofen 600 mg PO TID #90 tab Primary Care Physician: Chantale Uriarte MD [Primary Care Provider] - Please follow up with your Primary Care Physician in: when your detox program is finished Disposition: Inpt Rehab Unit/Facility Minutes spent on discharge:: 32 Patient Condition:: Stable Medical Necessity - Tobacco Use Smoking Status: Current every day smoker Tobacco Use: Cigarettes Meaningful Use Info Meaningful Use Diagnoses (Choose all that apply): None applicable Code Visit Inpatient E&M: 80183 Disch Hosp
== END 2017-10-02 11:48 | DRG 434 ==
LOC: ED 22:10 → MS2 09-29 06:19
PROVIDERS: Admitting Provider Hospitalist; Emergency Provider Emergency Medicine; Family Provider Internal Medicine; PCP Internal Medicine; Visit Provider Internal Medicine
DX: F11.23 Opioid dependence with withdrawal (principal); R56.9 Unspecified convulsions; F14.10 Cocaine abuse, uncomplicated; Z79.899 Other long term (current) drug therapy; F31.9 Bipolar disorder, unspecified; F60.3 Borderline personality disorder; F17.210 Nicotine dependence, cigarettes, uncomplicated; E87.6 Hypokalemia; D72.829 Elevated white blood cell count, unspecified; A60.00 Herpesviral infection of urogenital system, unspecified; Z22.4 Carrier of infections with a predominantly sexual mode of transmission; Z86.19 Personal history of other infectious and parasitic diseases; R45.1 Restlessness and agitation
CPT/HCPCS: 36415; 70450; 80048; 80307; 80320; 81001; 84703; 85025; 97802; 99218; 99282; G0378; G0480; J2405

== ENCOUNTER 2017-12-13 16:48 | Emergency (ER) | payer MEDICAID, SELFPAY ==
[2017-12-13 16:50] VITALS: BP 135/89; PULSE 111; RESP 18; TEMP 37.7; O2SAT 95; BMI 19.3
--- NOTE | 2017-12-13 18:05 | ED.RN ---
pt standing in hallway, asked pt how i could help. pt began cussing that she needed a new dr. walked with pt back to room to address concerns. pt c/o about dr not doing anything and demanding another dr. explained to pt that was against protocol, and she could not have another dr. pt upset b/c she wasn't having blood work done. pt states she refuses all care if she cannot get the care she wants. pt ambulated out of department without difficulty
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
== END 2017-12-13 18:08 | disposition left against medical advice (07) ==
PROVIDERS: Emergency Provider Emergency Medicine
DX: Z53.21 Procedure and treatment not carried out due to patient leaving prior to being seen by health care provider (principal); R10.2 Pelvic and perineal pain; R30.0 Dysuria; N89.8 Other specified noninflammatory disorders of vagina; L65.9 Nonscarring hair loss, unspecified; J02.9 Acute pharyngitis, unspecified; M79.10 Myalgia, unspecified site; Z86.14 Personal history of Methicillin resistant Staphylococcus aureus infection; Z86.19 Personal history of other infectious and parasitic diseases

== ENCOUNTER 2017-12-16 14:49 | Inpatient (IN) | payer MEDICAID, SELFPAY ==
[2017-12-16] VITALS (20 sets, daily range): BP systolic 105–165; BP diastolic 63–118; PULSE 111–142; RESP 14–23; TEMP 35.9–39.7; O2SAT 97–100; BMI 16.4; BMI 16.7
--- NOTE | 2017-12-16 15:02 | RAD_ITS ---
STUDY: X-RAY CHEST REASON FOR EXAM: Female, 22 years old. Confusion, drug abuse, manic behavior TECHNIQUE: Single S2 AP portable view of the chest. COMPARISON: April 14 2017 chest x-ray FINDINGS: The lungs are clear and expanded. There is no demonstrated pleural abnormality. Normal size heart. Normal mediastinum and marjorie. Normal visualized pulmonary arteries. Normal visualized aortic arch and descending thoracic aorta. Normal visualized thoracic spine. Normal visualized ribs, clavicles, and shoulders. There is no demonstrated abnormality of the visualized soft tissue structures of the upper abdomen. RAD/Chest 1 View (Portable) IMPRESSION: Normal x-ray examination of the chest. Electronically Signed: Leslie Orozco MD at 15:27 EDT Tel , Service support ,
--- NOTE | 2017-12-16 15:02 | EKG12_ITS ---
Test Reason : DYSRHYTHMIA Blood Pressure : / mmHG Vent. Rate : 126 BPM Atrial Rate : 126 BPM P-R Int : 142 ms QRS Dur : 082 ms QT Int : 342 ms P-R-T Axes : 081 068 057 degrees QTc Int : 495 ms Sinus tachycardia Right atrial enlargement Nonspecific ST abnormality Abnormal ECG Confirmed by CHRISTA FIGUEROA, BOGDAN ([id number]), editor at large YOBANI HURST ([id number]) on 12/18/2017 3:11:21 PM Referred By: PRAMOD Confirmed By:BOGDAN GOODWIN MD
--- NOTE | 2017-12-16 15:16 | ED.DCSUM_ITS ---
- ER Visit Summary Date of Service: 12/16/17 Chief Complaint: Triage chief complaint mental health History of Present Illness: The patient is a 22 F who has history of cocaine, heroin (IV drug use) who was brought to the emergency department because of her behavior. She is argumentative, there is paranoid ideation, speech is pressured and her thought process/reasoning is skewed. Patient states that the government wants you to . She was asked what she meant by this and she stated the government wants alcoholics and drug addicts to . Patient was redirected several times because she would refer to prior ER or hospital visits. Unable to obtain if this is secondary to drug use, infectious encephalopathy versus other reasons. She does admit to IV heroin use and has recent injection site right antecubital fossa. Physical Examination: Vital signs are abnormal. Blood pressure is 151/96, heart rate 142, respiratory rate 20 and temperature 101.5. Head is atraumatic normocephalic. There are wounds noted which appear to be self-inflicted i.e. picking. Pupils are dilated. They are reactive. TMs appear normal. Nares patent. Mucosa dry. Uvula midline. Trachea midline. There is no stridor. Heart is rapid and regular unable to determine if there is an obvious murmur since patient will not remain silent. Lungs have symmetric breath sounds with no egophony or increased vocal fremitus. Abdomen is soft. There is no evidence of cellulitis or decubiti. She is alert. She is agitated. She thought processes abnormal. She moves all extremities. DTRs are 2+ symmetric with no clonus. She withdraws when assessing for Babinski sign. Will not cooperate to perform finger-nose to finger. Test Results: EKG reveals a sinus tachycardia 126. There is no ossific ST-T wave changes noted. NM interval is normal. Respirations normal. QT interval is normal. [place] is normal. Portable chest x-ray reveals normal chronic silhouette, mediastinum, lung parenchyma and osseous structures. Repeat chest x-ray after intubation reveals proper position of endotracheal tube and orogastric tube. No interval change. Portable chest x-ray obtained after placement of right subclavian line which reveals no evidence of pneumothorax, hemothorax and proper position of line. White count is elevated 29.2 thousand with 91 segs. Electro lites panel is marked for sodium 133, potassium 2.8 and chloride of 95. Glucose is slightly elevated 126. Lactate is elevated 2.7. Urine is consistent with infection. Emergency Department Course and Treatment: Patient febrile with abnormal vital signs and abnormal thought process. This may represent psychosis secondary to heroin/cocaine use versus infectious encephalopathy. Need to evaluate for bacterial endocarditis. With change in mental status meningitis must be considered. Sepsis workup was undertaken and patient will need admission. 3 blood cultures were obtained. With history Andof IV drug use and patient's allergies recommended antibiotics f or treatment of endocarditis is vancomycin and daptomycin. Because there is concern for meningitis will add gentamicin 5 mg/kg. I was requested to go to radiology suite because patient became hypotensive. The propofol drip was discontinued. She was administered IV ketamine and an IV ketamine drip was ordered. Patient required multiple doses of propofol and ketamine by me since nursing staff is not permitted to give boluses of propofol or ketamine. Because patient was hypotensive she received 30 cc/kg bolus of normal saline. Procedure: 1. Patient was intubated by RSI technique. She was administered 20 mg of etomidate followed by 50 mg of rocuronium. She was administered propofol bolus by me and placed on a propofol drip to facilitate further testing and specifically CAT scan to evaluate for any contraindication performing lumbar puncture. 2. Right external jugular line was placed prior to intubation since patient peripheral line was dislodged and nonfunctional. This was placed by me. 3. Patient required boluses of ketamine. She was administered 200 mg of ketamine prior to placement of right subclavian line. The CMS guidelines were adhered to. The area was prepped draped sterile manner. The vessel was cannulated excessively on the way in on first attempt. Using Seldinger technique a 7.5 Kinyarwanda triple-lumen was placed. Chest x-ray was obtained and confirmed proper position with no evidence of pneumothorax or hemothorax 4. Lumbar puncture was performed. L3-4 interspace was cannulated on third attempt. Fluid was clear and colorless. Opening pressure was 17 cm. Appropriate studies were obtained and Dr. Alarcon will follow the results. 5. Critical care time 76 minutes, this excludes time for procedure i.e. intubation, external jugular line, subclavian and lumbar puncture. Treatment Plan: 1. Encephalopathy 2. Severe sepsis with hypotension 3. Urinary tract infection 4. Evaluate for endocarditis 5. Evaluate for meningitis 6. Hyponatremia 7. Hypokalemia 8. IV drug use, opiates and amphetamines Disposition: [] Impression: [] This note was generated with [employer] dictation software. It may contain incorrect words, spelling, and punctuation that were not noted in review of the chart prior to signing ED Disposition - Plan for ED Patient: Chief Complaint: Mental Health
[2017-12-16] MEDS: Etomidate 20 MG/10 ML Vial IV (15:38)
[2017-12-16] MEDS: Rocuronium Bromide 50 MG/5 ML Vial IV (15:44)
--- NOTE | 2017-12-16 15:48 | CT_ITS ---
STUDY: CT BRAIN WITHOUT CONTRAST REASON FOR EXAM: Female, 22 years old. Altered mental status RADIATION DOSAGE (If Supplied By Facility): CTDIvol = ( 44.99 ) mGy, DLP = ( 1558.47 ) mGycm TECHNIQUE: Transaxial CT imaging of the brain was performed without administration of intravenous contrast material. Individualized dose optimization techniques were used for this CT. COMPARISON: 09/29/2017 FINDINGS: There is no acute bleed or infarct. There are normal white matter tracts. The ventricles are normal in configuration. There is no hydrocephalus. The visualized paranasal sinuses are clear. The mastoid air cells are well aerated. There is no skull fracture. CT/Brain/Head without Contrast IMPRESSION: No acute intracranial abnormality. Electronically Signed: Shad Slade, at 17:21 EDT Tel , Service support ,
[2017-12-16] MEDS: Propofol 200 MG/20 ML Vial 40 MG IV BOLUS (15:50)
[2017-12-16] MEDS: 0.9% Normal Saline 1,000 ML 250 ML IV (15:55)
[2017-12-16] MEDS: Propofol 10MG/Ml 1,000 MG/100 ML Bottle 1.26 MG CONT INF ×3 (15:56→23:04)
--- NOTE | 2017-12-16 15:57 | NURSING ---
BLUE TOP HEMOLIZED
[2017-12-16 15:59] LABS: Absolute Lymphocyte Count 1.75 X10^3/ul (0.83-4.51); Absolute Neutrophil Count 26.5 X10^3/uL (2.0-7.7); Basophil# 0.03 X10^3/uL; Basophil% 0.1 % (0-1); Hematocrit 36.5 % (37-47); Hemoglobin 12.4 g/dl (12.0-15.0); Lymphocyte # 1.75 X10^3/ul (4.0); Mean Corpuscular Hgb 28.8 pg (27.0-32.0); Mean Corpuscular Volume 84.9 fL (81-99); Mean Platelet Vol. 10.1 fl (6.2-12.0); Monocyte# 0.85 X10^3/uL; Monocyte% 2.9 % (0-10); Neutrophil # 26.53 X10^3/uL (2.7-7.7); Neutrophil % 90.8 % (47-70); Platelet Count 293 K/mm3 (150-450); RBC Distribution Width CV 13.7 % (11.6-14.6); RBC Distribution Width SD 42.3 fl (35.1-43.9); White Blood Count 29.2 K/mm3 (4.4-11.0)
--- NOTE | 2017-12-16 16:00 | RAD_ITS ---
STUDY: X-RAY CHEST REASON FOR EXAM: Female, 22 years old. 2 placement TECHNIQUE: Frontal view of the chest COMPARISON: 12/16/2017 FINDINGS: There is an endotracheal tube noted with its tip approximately 1-2 cm above the kj. There is an enteric tube noted with its tip in the stomach. The lungs are clear. There are no pleural effusions. There is no pneumothorax. The heart is normal in size. The visualized osseous structures are within normal limits. RAD/Chest 1 View (Portable) IMPRESSION: Satisfactory position of the support lines and tubes. No acute thoracic pathology. Electronically Signed: Shad Slade, at 16:29 EDT Tel , Service support ,
[2017-12-16 16:01] LABS: Lactic Acid 2.7 mmol/L (0.4-2.0)
[2017-12-16 16:09] LABS: Differential Indicated SCAN CRITERIA MET; POSITIVE COUNT NO; POSITIVE DIFFERENTIAL YES; POSITIVE MORPHOLOGY NO
[2017-12-16 16:10] LABS: BUN 13 mg/dL (7-18); Creatinine, Serum 0.85 mg/dL (0.55-1.02); Estimated Creatinine Clearance 67.67 ml/min; Glucose 126 mg/dL (74-106)
[2017-12-16 16:11] LABS: ALB/GLOB Ratio 0.6 RATIO (0.9-2.4); AST(SGOT) 23 U/L (15-37); Alanine Aminotransfer ALT/SGPT 25 U/L (13-56); Alkaline Phosphatase 78 U/L (45-117); Anion Gap 13 (5-15); BUN/Creat Ratio 15.3 RATIO (10-20); Chloride 95 mmol/L (98-107); EST Glomerular Filtration Rate 87 mL/min (>60); Est Glom Filt Rate - Afr Amer 105 mL/min (>60); Potassium 2.8 mmol/L (3.5-5.1); Sodium Level 133 mmol/L (136-145)
[2017-12-16 16:18] LABS: Differential Comment SCANNED
[2017-12-16 16:26] LABS: Allen Test POS; Base Excess -1 mmol/L (-2 to +2); Bicarbonate 23.6 mmol/L (22-26); Blood Gas Specimen Type ART; FI02 50; Mode A-C; O2 Delivery Device Vent; PEEP 5; PO2 232 mmHG (75-100); RR 14; SITE R Radial; SO2 100 % (95-99); Time Given 1621; Total Carbon Dioxide 25 mmol/L; Vt 400; pCO2 37.3 mmHg (35-45); pH 7.41 (7.35-7.45)
[2017-12-16 16:27] LABS: Mucous, Urine 0 SEEN /hpf (<or=2+)
[2017-12-16 16:28] LABS: Color, Urine Yellow (Yellow); Glucose, Dipstick Normal (Normal); Leukocyte Esterase-Dipstick 500 /ul (Negative); Nitrite-Dipstick Positive (Negative); Occult Blood-Urine 25 /ul (Negative); Protein-Dipstick 100 mg/dl (Negative); Urine Bilirubin Dipstick Negative (Negative); Urine Clarity Sl. Cloudy (Clear); Urine Urobilinogen Normal (Normal)
[2017-12-16 16:31] LABS: Ketone-Dipstick 150 mg/dl (Negative)
--- NOTE | 2017-12-16 16:32 | ED.RN ---
notified urine ketones 150
[2017-12-16 16:34] LABS: White Blood Cells 10-25 SEEN /hpf (0-5)
[2017-12-16 16:35] LABS: Red Blood Cells-Urine 0-5 SEEN /hpf (0-5); Squamous Epithelial Cells - UA 0-5 SEEN /hpf (5-10)
[2017-12-16 16:36] LABS: Bacteria 1+ /hpf (None Seen)
[2017-12-16 16:37] LABS: Trichomonas 0-5 SEEN /hpf (None Seen)
[2017-12-16 16:46] LABS: Pregnancy, Serum, hCG Quali. NEGATIVE Negative (0-9 Nonpreg)
[2017-12-16 16:46] LABS: Amphetamine Urine VISTA POSITIVE (<1000 ng/mL); Barbiturate Urine VISTA NEGATIVE (< 200 ng/mL); Benzodiazepine Urine VISTA NEGATIVE (< 200 ng/mL); Cocaine Urine VISTA NEGATIVE (< 300 ng/mL); Ecstacy Urine VISTA NEGATIVE (< 500 ng/mL); Methadone Urine VISTA NEGATIVE (< 300 ng/mL); PCP Urine VISTA NEGATIVE (< 25 ng/mL); THC Urine VISTA NEGATIVE (< 50 ng/mL); Vista UDS pH Range 6
--- NOTE | 2017-12-16 17:50 | RAD_ITS ---
STUDY: X-RAY CHEST REASON FOR EXAM: Female, 22 years old. Line placement. TECHNIQUE: Frontal view of the chest COMPARISON: 12/16/2017 FINDINGS: There is a right-sided central line with its tip in the superior vena cava. There is an endotracheal tube with its tip approximately 1 cm above the kj. There is an enteric tube noted with its tip in the stomach. The lungs are clear. There are no pleural effusions. There is no pneumothorax. The heart is normal in size. The visualized osseous structures are within normal limits. RAD/CXR for Line Placement IMPRESSION: Satisfactory position of the support lines and tubes. No acute thoracic pathology. Electronically Signed: Shad Slade, at 18:56 EDT Tel , Service support ,
[2017-12-16 18:08] LABS: International Normalized Ratio 1.4; Prothrombin Time (Protime)PT. 17.5 SECONDS (11.7-14.9)
[2017-12-16 18:09] LABS: Partial Thromboplast Time 43.3 Seconds (24.1-36.2)
[2017-12-16] MEDS: 0.9% Normal Saline 1,000 ML 1250 ML IV (18:12)
--- NOTE | 2017-12-16 18:20 | NURSING ---
ICU 4
--- NOTE | 2017-12-16 18:49 | PCM.HP.STD ---
Problem List (1) Severe sepsis Status: Acute (2) UTI (urinary tract infection) Status: Acute (3) Toxic encephalopathy Status: Acute History of Present Illness Date of Admission: 12/16/17 Chief Complaint: confusion The patient is a 22 year old F presents from home with paranoid behavior. Patient was also having pressured speech. Patient was brought in by family to the emergency room and was having some paranoid delusions saying that garment when she did and wants alcoholics and drug addicts to . Patient was verbal and profoundly agitated. Patient was electively intubated this patient was a potential threat to herself as of the as well as others. Patient was put on propofol and then her blood pressure dropped down into the 70s. Patient then was started on ketamine. Patient had a central line placed in the emergency room and a lumbar puncture performed. Patient was having a fever and concern was for sepsis source. Patient was too confused initially to provide any history. [] Past Medical History Past Medical History (Chronic Problems): Chronic Problems Borderline personality disorder (Chronic) Depression (Chronic) Drug abuse (Chronic) heroin and cocaine Bipolar disorder (Chronic) Allergies nickel [Nickel] Allergy (Verified 12/16/17 14:55) Unknown Penicillins Allergy (Verified 12/16/17 14:55) Shortness of breath doxycycline Adverse Reaction (Verified 12/16/17 14:55) Vomiting metronidazole [From Flagyl] Adverse Reaction (Verified 12/16/17 14:55) Upset Stomach sulfamethoxazole [From Bactrim] Adverse Reaction (Verified 12/16/17 14:55) Upset Stomach trimethoprim [From Bactrim] Adverse Reaction (Verified 12/16/17 14:55) Upset Stomach Home Medications: Ambulatory Orders Medication Instructions Recorded Acetaminophen [Tylenol Tablet] 650 mg PO Q4H PRN PRN #100 tab 10/02/17 Acyclovir [Zovirax] 400 mg PO BID #60 tab 10/02/17 Clonidine HCl 0.05 mg PO TID PRN PRN #45 tab 10/02/17 Gabapentin [Neurontin] 600 mg PO TID #90 tab 10/02/17 Ibuprofen 600 mg PO TID #90 tab 10/02/17 Surgical History: noncontributory Psychiatric History: Bipolar - maybe...there is a question zach after BPD on the notes from the counselling center. she carries a definite diagnosis of Borderline personality disorder., Depression [employer] History: No pertinent [employer] history Smoking Status: Current every day smoker Drugs: Cocaine, Heroin - *Family History Maternal History Items: - - Drug abuse Paternal History Items: No pertinent history Review of Systems Unable to obtain accurate/complete ROS d/t: Unable to obtain at this time as patient is intubated and sedated. VTE Information - Inpt Only VTE Present on Admission: No VTE Mechan Device Prophylaxis: SCD's VTE Pharm Prophylaxis ordered?: Yes Patient Problems: Active and Suspected Problems Severe sepsis (Acute) UTI (urinary tract infection) (Acute) Toxic encephalopathy (Acute) - Physical Exam General: - - Debated and sedated. HEENT: Atraumatic, Normocephalic, - - Ecchymosis more prominently on the right. Oral: Moist Mucosa, No Gingival or Mucosal Lesions/ Ulcerations Neck: No Nodes, Thyroid Normal Size and Texture Lungs: Clear to auscultation, Normal air movement, No rhonchi, No wheeze Cardiovascular: Regular rate, Regular Rhythm, Normal S1, Normal S2, No murmurs Abdomen: Bowel Sounds Present, Soft, Non Tender, Non-Distended, No Hepato-splenomegaly Extremities: No edema, No Calf Tenderness Skin: No rashes, No breakdown Musculoskeletal: No Tenderness to Palpation of Joints or Extremities, No Muscle Wasting Neurological: Deep Tendon Reflexes 2+/4 and Symmetrical, - - No clonus. Psych/Mental Status: - - Intubated and sedated. Vital Signs Temp Pulse Resp BP Pulse Ox 35.9 C L 127 H 14 121/99 H 98 12/16/17 18:29 12/16/17 18:29 12/16/17 18:29 12/16/17 18:29 12/16/17 18:29 Oxygen Delivery Method Mechanical Ventilator Weight: 42 kg Body Mass Index (BMI) 16.4 Laboratory Tests Past 24 Hrs 12/16/17 12/16/17 12/16/17 15:15 15:15 15:15 WBC 29.2 H RBC 4.30 Hgb 12.4 Hct 36.5 L MCV 84.9 MCH 28.8 MCHC 34.0 RDW 13.7 RDW Differential 42.3 Plt Count 293 MPV 10.1 Immature Gran % (Auto) 0.200 Neut % (Auto) 90.8 H Lymph % (Auto) 6.0 L Hitchcock % (Auto) 2.9 Eos % (Auto) 0.0 Baso % (Auto) 0.1 Absolute Neuts (auto) 26.5 H Absolute Lymphs (auto) 1.75 Total Counted Not Reportable Differential Comment SCANNED PT Cancelled INR Cancelled APTT Cancelled Specimen Type Sample Site pH Bicarbonate Actual POC Total CO2 Base Excess O2 Saturation O2 % ABG pCO2 ABG pO2 Kevon Test Respiration Rate O2 Delivery Device Minute Volume Vent Mode Tidal Volume POC PEEP Blood Gas Notified Whom Blood Gas Notified Time Sodium 133 L Potassium 2.8 L Chloride 95 L Carbon Dioxide 25.0 Anion Gap 13 BUN 13 Creatinine 0.85 Estim Creat Clear Calc 67.67 Est GFR (MDRD) Af Amer 105 Est GFR (MDRD) Non-Af 87 BUN/Creatinine Ratio 15.3 Glucose 126 H Lactic Acid Calcium 9.0 Total Bilirubin 1.10 H AST 23 ALT 25 Alkaline Phosphatase 78 Total Protein 8.0 Albumin 3.0 L Globulin 5.0 H Albumin/Globulin Ratio 0.6 L Serum , Qual Urine Color Urine Clarity Urine pH Ur Specific [place] Urine Protein Urine Glucose (UA) Urine Ketones Urine Occult Blood Urine Nitrite Urine Bilirubin Urine Urobilinogen Ur Leukocyte Esterase Urine RBC Urine WBC Ur Squamous Epith Cells Urine Bacteria Urine Mucus Urine Trichomonas Urine Opiates Screen Urine Methadone Screen Ur Barbiturates Screen Ur Phencyclidine Scrn Ur Amphetamines Screen U Methamphetamin-MDMA U Benzodiazepines Scrn Urine Cocaine Screen U Cannabinoids Screen Ur Drug Screen Comment Hep Bs Antigen Hep Bs Antibody Hep B Core Total Ab Hepatitis C Ab (EIA) Herpes Simplex Culture HSV I DNA PCR HSV II DNA PCR HSV Final Result 12/16/17 12/16/17 12/16/17 15:15 16:20 16:20 WBC RBC Hgb Hct MCV MCH MCHC RDW RDW Differential Plt Count MPV Immature Gran % (Auto) Neut % (Auto) Lymph % (Auto) Hitchcock % (Auto) Eos % (Auto) Baso % (Auto) Absolute Neuts (auto) Absolute Lymphs (auto) Total Counted Differential Comment PT Cancelled INR Cancelled APTT Cancelled Specimen Type Sample Site pH Bicarbonate Actual POC Total CO2 Base Excess O2 Saturation O2 % ABG pCO2 ABG pO2 Kevon Test Respiration Rate O2 Delivery Device Minute Volume Vent Mode Tidal Volume POC PEEP Blood Gas Notified Whom Blood Gas Notified Time Sodium Potassium Chloride Carbon Dioxide Anion Gap BUN Creatinine Estim Creat Clear Calc Est GFR (MDRD) Af Amer Est GFR (MDRD) Non-Af BUN/Creatinine Ratio Glucose Lactic Acid 2.7 H Calcium Total Bilirubin AST ALT Alkaline Phosphatase Total Protein Albumin Globulin Albumin/Globulin Ratio Serum , Qual NEGATIVE Urine Color Urine Clarity Urine pH Ur Specific [place] Urine Protein Urine Glucose (UA) Urine Ketones Urine Occult Blood Urine Nitrite Urine Bilirubin Urine Urobilinogen Ur Leukocyte Esterase Urine RBC Urine WBC Ur Squamous Epith Cells Urine Bacteria Urine Mucus Urine Trichomonas Urine Opiates Screen Urine Methadone Screen Ur Barbiturates Screen Ur Phencyclidine Scrn Ur Amphetamines Screen U Methamphetamin-MDMA U Benzodiazepines Scrn Urine Cocaine Screen U Cannabinoids Screen Ur Drug Screen Comment Hep Bs Antigen Hep Bs Antibody Hep B Core Total Ab Hepatitis C Ab (EIA) Herpes Simplex Culture HSV I DNA PCR HSV II DNA PCR HSV Final Result 12/16/17 12/16/17 12/16/17 16:20 16:22 16:23 WBC RBC Hgb Hct MCV MCH MCHC RDW RDW Differential Plt Count MPV Immature Gran % (Auto) Neut % (Auto) Lymph % (Auto) Hitchcock % (Auto) Eos % (Auto) Baso % (Auto) Absolute Neuts (auto) Absolute Lymphs (auto) Total Counted Differential Comment PT INR APTT Specimen Type ART Sample Site R Radial pH 7.41 Bicarbonate Actual 23.6 POC Total CO2 25 Base Excess -1 O2 Saturation 100 H O2 % 50 ABG pCO2 37.3 ABG pO2 232 H Kevon Test POS Respiration Rate 14 O2 Delivery Device Vent Minute Volume 9.00 Vent Mode A-C Tidal Volume 400 POC PEEP 5 Blood Gas Notified Whom ED Blood Gas Notified Time 1621 Sodium Potassium Chloride Carbon Dioxide Anion Gap BUN Creatinine Estim Creat Clear Calc Est GFR (MDRD) Af Amer Est GFR (MDRD) Non-Af BUN/Creatinine Ratio Glucose Lactic Acid Calcium Total Bilirubin AST ALT Alkaline Phosphatase Total Protein Albumin Globulin Albumin/Globulin Ratio Serum , Qual Urine Color Yellow Urine Clarity Sl. Cloudy Urine pH 6.0 Ur Specific [place] 1.010 Urine Protein 100 H Urine Glucose (UA) Normal Urine Ketones 150 H Urine Occult Blood 25 H Urine Nitrite Positive H Urine Bilirubin Negative Urine Urobilinogen Normal Ur Leukocyte Esterase 500 H Urine RBC 0-5 SEEN Urine WBC 10-25 SEEN Ur Squamous Epith Cells 0-5 SEEN Urine Bacteria 1+ Urine Mucus 0 SEEN Urine Trichomonas 0-5 SEEN Urine Opiates Screen Urine Methadone Screen Ur Barbiturates Screen Ur Phencyclidine Scrn Ur Amphetamines Screen U Methamphetamin-MDMA U Benzodiazepines Scrn Urine Cocaine Screen U Cannabinoids Screen Ur Drug Screen Comment Hep Bs Antigen Pending Hep Bs Antibody Pending Hep B Core Total Ab Pending Hepatitis C Ab (EIA) Pending Herpes Simplex Culture Pending HSV I DNA PCR Pending HSV II DNA PCR Pending HSV Final Result Pending 12/16/17 12/16/17 16:23 17:50 WBC RBC Hgb Hct MCV MCH MCHC RDW RDW Differential Plt Count MPV Immature Gran % (Auto) Neut % (Auto) Lymph % (Auto) Hitchcock % (Auto) Eos % (Auto) Baso % (Auto) Absolute Neuts (auto) Absolute Lymphs (auto) Total Counted Differential Comment PT 17.5 H INR 1.4 APTT 43.3 H Specimen Type Sample Site pH Bicarbonate Actual POC Total CO2 Base Excess O2 Saturation O2 % ABG pCO2 ABG pO2 Kevon Test Respiration Rate O2 Delivery Device Minute Volume Vent Mode Tidal Volume POC PEEP Blood Gas Notified Whom Blood Gas Notified Time Sodium Potassium Chloride Carbon Dioxide Anion Gap BUN Creatinine Estim Creat Clear Calc Est GFR (MDRD) Af Amer Est GFR (MDRD) Non-Af BUN/Creatinine Ratio Glucose Lactic Acid Calcium Total Bilirubin AST ALT Alkaline Phosphatase Total Protein Albumin Globulin Albumin/Globulin Ratio Serum , Qual Urine Color Urine Clarity Urine pH Ur Specific [place] Urine Protein Urine Glucose (UA) Urine Ketones Urine Occult Blood Urine Nitrite Urine Bilirubin Urine Urobilinogen Ur Leukocyte Esterase Urine RBC Urine WBC Ur Squamous Epith Cells Urine Bacteria Urine Mucus Urine Trichomonas Urine Opiates Screen POSITIVE H Urine Methadone Screen NEGATIVE Ur Barbiturates Screen NEGATIVE Ur Phencyclidine Scrn NEGATIVE Ur Amphetamines Screen POSITIVE H U Methamphetamin-MDMA NEGATIVE U Benzodiazepines Scrn NEGATIVE Urine Cocaine Screen NEGATIVE U Cannabinoids Screen NEGATIVE Ur Drug Screen Comment Hep Bs Antigen Hep Bs Antibody Hep B Core Total Ab Hepatitis C Ab (EIA) Herpes Simplex Culture HSV I DNA PCR HSV II DNA PCR HSV Final Result Clinical Impression(s) from Imaging Studies Chest X-Ray 12/16/17 15:02 IMPRESSION: Normal x-ray examination of the chest. Electronically Signed: Leslie Orozco MD at 15:27 EDT Tel , Service support , Brain CT 12/16/17 15:48 IMPRESSION: No acute intracranial abnormality. Electronically Signed: Shad Slade, at 17:21 EDT Tel , Service support , Chest X-Ray 12/16/17 16:00 IMPRESSION: Satisfactory position of the support lines and tubes. No acute thoracic pathology. Electronically Signed: Shad Slade, at 16:29 EDT Tel , Service support , Assessment/Plan All Active Problems Severe sepsis (Acute) UTI (urinary tract infection) (Acute) Toxic encephalopathy (Acute) Opiate withdrawal (Acute) Overdose (Resolved) 1. Severe sepsis Present on admission Suspected UTI Lumbar puncture performed and preliminary results pending at this time Given there may be a possibility with meningitis with the patient's confusion will continue with vancomycin and ceftriaxone But if lumbar puncture appears negative then would discontinue the vancomycin. Follow-up blood, urine and spinal fluid cultures. IV fluids Reevaluate lactic acid 2. UTI As above 3. Toxic encephalopathy Drug screen positive for opiates and amphetamines Given the bizarre behavior would be concerned about synthetic drugs such as spice or bath salts which can cause paranoia but also not show up in a drug screen Need to rule out other metabolic causes such as meningitis, however. Patient intubated for was inconsolable. Critical care management's and to further facilitate care Continue with ketamine 4. Polysubstance abuse Complicates care Would not be an ideal candidate for Subutex given the patient's prior behavior and her current confusion at this time Patient would be a high risk for diversion of Subutex. 5. DVT prophylaxis with SCDs and Lovenox I attempted lumbar puncture under sterile procedures but was unable to assess any spinal fluid. Procedure was performed by Dr. Landaverde. Please refer to his Neer's note for further details. Opening pressure was around 15 mmHg and fluid was clear. Code Visit Inpatient E&M: 87112 Init Hosp L3
--- NOTE | 2017-12-16 18:53 | HP.PCM_ITS ---
Problem List (1) Severe sepsis Status: Acute (2) UTI (urinary tract infection) Status: Acute (3) Toxic encephalopathy Status: Acute History of Present Illness Date of Admission: 12/16/17 Chief Complaint: confusion The patient is a 22 year old F presents from home with paranoid behavior. Patient was also having pressured speech. Patient was brought in by family to the emergency room and was having some paranoid delusions saying that garment when she did and wants alcoholics and drug addicts to . Patient was verbal and profoundly agitated. Patient was electively intubated this patient was a potential threat to herself as of the as well as others. Patient was put on propofol and then her blood pressure dropped down into the 70s. Patient then was started on ketamine. Patient had a central line placed in the emergency room and a lumbar puncture performed. Patient was having a fever and concern was for sepsis source. Patient was too confused initially to provide any history. [] Past Medical History Past Medical History (Chronic Problems): Chronic Problems Borderline personality disorder (Chronic) Depression (Chronic) Drug abuse (Chronic) heroin and cocaine Bipolar disorder (Chronic) Allergies nickel [Nickel] Allergy (Verified 12/16/17 14:55) Unknown Penicillins Allergy (Verified 12/16/17 14:55) Shortness of breath doxycycline Adverse Reaction (Verified 12/16/17 14:55) Vomiting metronidazole [From Flagyl] Adverse Reaction (Verified 12/16/17 14:55) Upset Stomach sulfamethoxazole [From Bactrim] Adverse Reaction (Verified 12/16/17 14:55) Upset Stomach trimethoprim [From Bactrim] Adverse Reaction (Verified 12/16/17 14:55) Upset Stomach Home Medications: Ambulatory Orders Medication Instructions Recorded Acetaminophen [Tylenol Tablet] 650 mg PO Q4H PRN PRN #100 tab 10/02/17 Acyclovir [Zovirax] 400 mg PO BID #60 tab 10/02/17 Clonidine HCl 0.05 mg PO TID PRN PRN #45 tab 10/02/17 Gabapentin [Neurontin] 600 mg PO TID #90 tab 10/02/17 Ibuprofen 600 mg PO TID #90 tab 10/02/17 Surgical History: noncontributory Psychiatric History: Bipolar - maybe...there is a question zach after BPD on the notes from the counselling center. 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 VTE Information - Inpt Only VTE Present on Admission: No VTE Mechan Device Prophylaxis: SCD's VTE Pharm Prophylaxis ordered?: Yes Patient Problems: Active and Suspected Problems Severe sepsis (Acute) UTI (urinary tract infection) (Acute) Toxic encephalopathy (Acute) - Physical Exam General: - - Debated and sedated. HEENT: Atraumatic, Normocephalic, - - Ecchymosis more prominently on the right. Oral: Moist Mucosa, No Gingival or Mucosal Lesions/ Ulcerations Neck: No Nodes, Thyroid Normal Size and Texture Lungs: Clear to auscultation, Normal air movement, No rhonchi, No wheeze Cardiovascular: Regular rate, Regular Rhythm, Normal S1, Normal S2, No murmurs Abdomen: Bowel Sounds Present, Soft, Non Tender, Non-Distended, No Hepato- splenomegaly Extremities: No edema, No Calf Tenderness Skin: No rashes, No breakdown Musculoskeletal: No Tenderness to Palpation of Joints or Extremities, No Muscle Wasting Neurological: Deep Tendon Reflexes 2+/4 and Symmetrical, - - No clonus. Psych/Mental Status: - - Intubated and sedated. Vital Signs Temp Pulse Resp BP Pulse Ox 35.9 C L 127 H 14 121/99 H 98 12/16/17 18:29 12/16/17 18:29 12/16/17 18:29 12/16/17 18:29 12/16/17 18:29 Oxygen Delivery Method Mechanical Ventilator Weight: 42 kg Body Mass Index (BMI) 16.4 Laboratory Tests Past 24 Hrs 12/16/17 12/16/17 12/16/17 15:15 15:15 15:15 WBC 29.2 H RBC 4.30 Hgb 12.4 Hct 36.5 L MCV 84.9 MCH 28.8 MCHC 34.0 RDW 13.7 RDW Differential 42.3 Plt Count 293 MPV 10.1 Immature Gran % (Auto) 0.200 Neut % (Auto) 90.8 H Lymph % (Auto) 6.0 L [place] % (Auto) 2.9 Eos % (Auto) 0.0 Baso % (Auto) 0.1 Absolute Neuts (auto) 26.5 H Absolute Lymphs (auto) 1.75 Total Counted Not Reportable Differential Comment SCANNED PT Cancelled INR Cancelled APTT Cancelled Specimen Type Sample Site pH Bicarbonate Actual POC Total CO2 Base Excess O2 Saturation O2 % ABG pCO2 ABG pO2 Kevon Test Respiration Rate O2 Delivery Device Minute Volume Vent Mode Tidal Volume POC PEEP Blood Gas Notified Whom Blood Gas Notified Time Sodium 133 L Potassium 2.8 L Chloride 95 L Carbon Dioxide 25.0 Anion Gap 13 BUN 13 Creatinine 0.85 Estim Creat Clear Calc 67.67 Est GFR (MDRD) Af Amer 105 Est GFR (MDRD) Non-Af 87 BUN/Creatinine Ratio 15.3 Glucose 126 H Lactic Acid Calcium 9.0 Total Bilirubin 1.10 H AST 23 ALT 25 Alkaline Phosphatase 78 Total Protein 8.0 Albumin 3.0 L Globulin 5.0 H Albumin/Globulin Ratio 0.6 L Serum , Qual Urine Color Urine Clarity Urine pH Ur Specific [place] Urine Protein Urine Glucose (UA) Urine Ketones Urine Occult Blood Urine Nitrite Urine Bilirubin Urine Urobilinogen Ur Leukocyte Esterase Urine RBC Urine WBC Ur Squamous Epith Cells Urine Bacteria Urine Mucus Urine Trichomonas Urine Opiates Screen Urine Methadone Screen Ur Barbiturates Screen Ur Phencyclidine Scrn Ur Amphetamines Screen U Methamphetamin-MDMA U Benzodiazepines Scrn Urine Cocaine Screen U Cannabinoids Screen Ur Drug Screen Comment Hep Bs Antigen Hep Bs Antibody Hep B Core Total Ab Hepatitis C Ab (EIA) Herpes Simplex Culture HSV I DNA PCR HSV II DNA PCR HSV Final Result 12/16/17 12/16/17 12/16/17 15:15 16:20 16:20 WBC RBC Hgb Hct MCV MCH MCHC RDW RDW Differential Plt Count MPV Immature Gran % (Auto) Neut % (Auto) Lymph % (Auto) [place] % (Auto) Eos % (Auto) Baso % (Auto) Absolute Neuts (auto) Absolute Lymphs (auto) Total Counted Differential Comment PT Cancelled INR Cancelled APTT Cancelled Specimen Type Sample Site pH Bicarbonate Actual POC Total CO2 Base Excess O2 Saturation O2 % ABG pCO2 ABG pO2 Kevon Test Respiration Rate O2 Delivery Device Minute Volume Vent Mode Tidal Volume POC PEEP Blood Gas Notified Whom Blood Gas Notified Time Sodium Potassium Chloride Carbon Dioxide Anion Gap BUN Creatinine Estim Creat Clear Calc Est GFR (MDRD) Af Amer Est GFR (MDRD) Non-Af BUN/Creatinine Ratio Glucose Lactic Acid 2.7 H Calcium Total Bilirubin AST ALT Alkaline Phosphatase Total Protein Albumin Globulin Albumin/Globulin Ratio Serum , Qual NEGATIVE Urine Color Urine Clarity Urine pH Ur Specific [place] Urine Protein Urine Glucose (UA) Urine Ketones Urine Occult Blood Urine Nitrite Urine Bilirubin Urine Urobilinogen Ur Leukocyte Esterase Urine RBC Urine WBC Ur Squamous Epith Cells Urine Bacteria Urine Mucus Urine Trichomonas Urine Opiates Screen Urine Methadone Screen Ur Barbiturates Screen Ur Phencyclidine Scrn Ur Amphetamines Screen U Methamphetamin-MDMA U Benzodiazepines Scrn Urine Cocaine Screen U Cannabinoids Screen Ur Drug Screen Comment Hep Bs Antigen Hep Bs Antibody Hep B Core Total Ab Hepatitis C Ab (EIA) Herpes Simplex Culture HSV I DNA PCR HSV II DNA PCR HSV Final Result 12/16/17 12/16/17 12/16/17 16:20 16:22 16:23 WBC RBC Hgb Hct MCV MCH MCHC RDW RDW Differential Plt Count MPV Immature Gran % (Auto) Neut % (Auto) Lymph % (Auto) [place] % (Auto) Eos % (Auto) Baso % (Auto) Absolute Neuts (auto) Absolute Lymphs (auto) Total Counted Differential Comment PT INR APTT Specimen Type ART Sample Site R Radial pH 7.41 Bicarbonate Actual 23.6 POC Total CO2 25 Base Excess -1 O2 Saturation 100 H O2 % 50 ABG pCO2 37.3 ABG pO2 232 H Kevon Test POS Respiration Rate 14 O2 Delivery Device Vent Minute Volume 9.00 Vent Mode A-C Tidal Volume 400 POC PEEP 5 Blood Gas Notified Whom ED Blood Gas Notified Time 1621 Sodium Potassium Chloride Carbon Dioxide Anion Gap BUN Creatinine Estim Creat Clear Calc Est GFR (MDRD) Af Amer Est GFR (MDRD) Non-Af BUN/Creatinine Ratio Glucose Lactic Acid Calcium Total Bilirubin AST ALT Alkaline Phosphatase Total Protein Albumin Globulin Albumin/Globulin Ratio Serum , Qual Urine Color Yellow Urine Clarity Sl. Cloudy Urine pH 6.0 Ur Specific [place] 1.010 Urine Protein 100 H Urine Glucose (UA) Normal Urine Ketones 150 H Urine Occult Blood 25 H Urine Nitrite Positive H Urine Bilirubin Negative Urine Urobilinogen Normal Ur Leukocyte Esterase 500 H Urine RBC 0-5 SEEN Urine WBC 10-25 SEEN Ur Squamous Epith Cells 0-5 SEEN Urine Bacteria 1+ Urine Mucus 0 SEEN Urine Trichomonas 0-5 SEEN Urine Opiates Screen Urine Methadone Screen Ur Barbiturates Screen Ur Phencyclidine Scrn Ur Amphetamines Screen U Methamphetamin-MDMA U Benzodiazepines Scrn Urine Cocaine Screen U Cannabinoids Screen Ur Drug Screen Comment Hep Bs Antigen Pending Hep Bs Antibody Pending Hep B Core Total Ab Pending Hepatitis C Ab (EIA) Pending Herpes Simplex Culture Pending HSV I DNA PCR Pending HSV II DNA PCR Pending HSV Final Result Pending 12/16/17 12/16/17 16:23 17:50 WBC RBC Hgb Hct MCV MCH MCHC RDW RDW Differential Plt Count MPV Immature Gran % (Auto) Neut % (Auto) Lymph % (Auto) [place] % (Auto) Eos % (Auto) Baso % (Auto) Absolute Neuts (auto) Absolute Lymphs (auto) Total Counted Differential Comment PT 17.5 H INR 1.4 APTT 43.3 H Specimen Type Sample Site pH Bicarbonate Actual POC Total CO2 Base Excess O2 Saturation O2 % ABG pCO2 ABG pO2 Kevon Test Respiration Rate O2 Delivery Device Minute Volume Vent Mode Tidal Volume POC PEEP Blood Gas Notified Whom Blood Gas Notified Time Sodium Potassium Chloride Carbon Dioxide Anion Gap BUN Creatinine Estim Creat Clear Calc Est GFR (MDRD) Af Amer Est GFR (MDRD) Non-Af BUN/Creatinine Ratio Glucose Lactic Acid Calcium Total Bilirubin AST ALT Alkaline Phosphatase Total Protein Albumin Globulin Albumin/Globulin Ratio Serum , Qual Urine Color Urine Clarity Urine pH Ur Specific [place] Urine Protein Urine Glucose (UA) Urine Ketones Urine Occult Blood Urine Nitrite Urine Bilirubin Urine Urobilinogen Ur Leukocyte Esterase Urine RBC Urine WBC Ur Squamous Epith Cells Urine Bacteria Urine Mucus Urine Trichomonas Urine Opiates Screen POSITIVE H Urine Methadone Screen NEGATIVE Ur Barbiturates Screen NEGATIVE Ur Phencyclidine Scrn NEGATIVE Ur Amphetamines Screen POSITIVE H U Methamphetamin-MDMA NEGATIVE U Benzodiazepines Scrn NEGATIVE Urine Cocaine Screen NEGATIVE U Cannabinoids Screen NEGATIVE Ur Drug Screen Comment Hep Bs Antigen Hep Bs Antibody Hep B Core Total Ab Hepatitis C Ab (EIA) Herpes Simplex Culture HSV I DNA PCR HSV II DNA PCR HSV Final Result Clinical Impression(s) from Imaging Studies Chest X-Ray 12/16/17 15:02 IMPRESSION: Normal x-ray examination of the chest. Electronically Signed: Leslie Orozco MD at 15:27 EDT Tel , Service support , Brain CT 12/16/17 15:48 IMPRESSION: No acute intracranial abnormality. Electronically Signed: Shad Slade, at 17:21 EDT Tel , Service support , Chest X-Ray 12/16/17 16:00 IMPRESSION: Satisfactory position of the support lines and tubes. No acute thoracic pathology. Electronically Signed: Shad Slade, at 16:29 EDT Tel , Service support , Assessment/Plan All Active Problems Severe sepsis (Acute) UTI (urinary tract infection) (Acute) Toxic encephalopathy (Acute) Opiate withdrawal (Acute) Overdose (Resolved) 1. Severe sepsis * Present on admission * Suspected UTI * Lumbar puncture performed and preliminary results pending at this time * Given there may be a possibility with meningitis with the patient's confusion will continue with vancomycin and ceftriaxone * But if lumbar puncture appears negative then would discontinue the vancomycin. * Follow-up blood, urine and spinal fluid cultures. * IV fluids * Reevaluate lactic acid 2. UTI * As above 3. Toxic encephalopathy * Drug screen positive for opiates and amphetamines * Given the bizarre behavior would be concerned about synthetic drugs such as spice or bath salts which can cause paranoia but also not show up in a drug screen * Need to rule out other metabolic causes such as meningitis, however. * Patient intubated for was inconsolable. * Critical care management's and to further facilitate care * Continue with ketamine 4. Polysubstance abuse * Complicates care * Would not be an ideal candidate for Subutex given the patient's prior behavior and her current confusion at this time * Patient would be a high risk for diversion of Subutex. 5. DVT prophylaxis with SCDs and Lovenox I attempted lumbar puncture under sterile procedures but was unable to assess any spinal fluid. Procedure was performed by Dr. Landaverde. Please refer to his Neer's note for further details. Opening pressure was around 15 mmHg and fluid was clear. Code Visit Inpatient E&M: 90668 Init Hosp L3
[2017-12-16 19:16] LABS: Total Cell Count CSF 0.001 10^3/uL (0.000-0.000); White Count, CSF 0.001 10^3/uL (0.000-0.000)
[2017-12-16 19:17] LABS: Body Fluid Mononuclear WBC # 0.001 10^3/uL; Glucose Spinal Fluid 70 mg/dL (40-75)
[2017-12-16 19:23] LABS: Appearance CSF (character) CLEAR (Clear); Auto B Fluid Analyzer BKGD Ct COUNTS W/IN LIMITS (W/IN LIMITS); CSF Color COLORLESS (Colorless); RBC Count, Spinal Fluid 0 /mm-3 (None seen); Tested Tube # 4
[2017-12-16 19:28] LABS: Body Fluid QC Type(s) BF1
[2017-12-16] MEDS: 0.9% Normal Saline 1,000 ML 150 ML IV (19:42)
[2017-12-16 19:43] LABS: Reflex Lactate? Y
[2017-12-16] MEDS: fentaNYL drip 100 ML 5 MCG IV ×2 (19:43→23:49)
[2017-12-16 20:00] LABS: HIV - WCH Non-Reactive (Nonreactive)
--- NOTE | 2017-12-16 20:28 | ED.RN ---
pt became agitated and violent. she was placed in point soft restraints and sedated for intubation. she required multiple attempts for a line which delayed her blood cultures and antibiotics being given. EJ established by dr Landaverde and vancomycin was started. propofol was used for sedation. pt became hypotensive in CT. Dr. Landaverde called to CT to manage sedation due to being unable to push IV sedation medications. After scan pt brought back into department and central in was obtain and IV Ketamine drip was interchanged for propofol. Pt required multiple IV pushes of ketamine during wait for pharmacy to send IV drip. 1300 mg of Ketamine Pushed by MD until IV Drip was obtain. Additional antibiotics started after central line was obtained. Lumbar puncture was done short prior to transferred to ICU. Pt required 1:1 nursing care. Family informed of patients well being and given instructions to ICU waiting room. Brie Orozco RN
[2017-12-16 20:56] LABS: Lactic Acid 1.2 mmol/L (0.4-2.0)
[2017-12-16 22:04] LABS: CPK Total, Creatine Kinase 124 U/L (26-192); Triglycerides 79 mg/dL
[2017-12-16] MEDS: Chlorhexidine 15 ML PO (22:50)
[2017-12-16] MEDS: Acyclovir 200 MG Capsule 400 MG NG (22:50)
[2017-12-16] MEDS: Acetaminophen 650 MG/20 ML UDC GT (23:03)
[2017-12-17] VITALS (38 sets, daily range): BP systolic 91–115; BP diastolic 52–80; PULSE 58–124; RESP 14–15; TEMP 35.9–39; O2SAT 98–100
[2017-12-17] MEDS: 0.9% Normal Saline 1,000 ML 150 ML IV ×3 (02:06→20:20)
[2017-12-17] MEDS: 0.9% NaCl Peripheral Flush Adult/Peds IV ×5 (02:08→19:52)
[2017-12-17] MEDS: Propofol 10MG/Ml 1,000 MG/100 ML Bottle 1.26 MG CONT INF ×4 (03:42→23:49)
[2017-12-17 04:51] LABS: Hematocrit 26.7 % (37-47); Hemoglobin 9.1 g/dl (12.0-15.0); Mean Corp Hgb Conc 34.1 g/gl (32-36); Mean Corpuscular Hgb 29.1 pg (27.0-32.0); Mean Corpuscular Volume 85.3 fL (81-99); Mean Platelet Vol. 9.5 fl (6.2-12.0); Platelet Count 193 K/mm3 (150-450); RBC Distribution Width CV 14.1 % (11.6-14.6); RBC Distribution Width SD 44.1 fl (35.1-43.9); Red Blood Count 3.13 M/mm3 (4.2-5.4); White Blood Count 20.6 K/mm3 (4.4-11.0)
[2017-12-17 04:52] LABS: Scan Indicated on CBC? Y/N NO
[2017-12-17] MEDS: Vancomycin IV 500 MG/100 ML BAG 100 MG IV (04:56)
[2017-12-17 05:04] LABS: AST(SGOT) 19 U/L (15-37); Alanine Aminotransfer ALT/SGPT 19 U/L (13-56); Albumin, Serum 1.9 g/dL (3.2-5.0); Alkaline Phosphatase 58 U/L (45-117); Bilirubin, Direct 0.21 mg/dL (0.00-0.30); Globulin 3.5 g/dL (2.2-4.2); Magnesium 1.7 mg/dL (1.6-2.6); Phosphorus 2.1 mg/dL (2.5-4.9); Protein, Total 5.4 g/dL (6.4-8.2)
[2017-12-17 05:21] LABS: Anion Gap 11 (5-15); BUN 9 mg/dL (7-18); BUN/Creat Ratio 16.9 RATIO (10-20); Calcium,Total 6.7 mg/dL (8.5-10.1); Chloride 110 mmol/L (98-107); Creatinine, Serum 0.53 mg/dL (0.55-1.02); EST Glomerular Filtration Rate 149 mL/min (>60); Est Glom Filt Rate - Afr Amer 180 mL/min (>60); Glucose 82 mg/dL (74-106); Potassium 3.2 mmol/L (3.5-5.1); Sodium Level 144 mmol/L (136-145)
[2017-12-17] MEDS: fentaNYL drip 100 ML 5 MCG IV ×4 (06:05→21:24)
[2017-12-17] MEDS: CHLORHEXIDINE GLUC 2% CLOTH 1 EACH TOWELETTE TOPICAL (06:15)
--- NOTE | 2017-12-17 07:03 | CON.PCM_ITS ---
Reason for Consult Date of Consultation: 12/17/17 Reason for Consultation: Respiratory failure History of Present Illness: The patient is a 22-year-old female, with a history as outlined below, who presented to the emergency department on December 16 with altered mentation. Patient has a long-standing history of illicit drug use with exceedingly high medical resource utilization in the past. The patient was also just recently seen in the emergency department on December 13 with a multitude of complaints per documentation including pelvic pain, dysuria, vaginal discharge and hair loss. However, the patient became belligerent with the emergency provider and subsequently fired her, leaving the emergency department without any workup. On presentation to the emergency department, the patient was noted to be afebrile, tachycardic, and tachypneic. Laboratory evaluation revealed elevated white blood cell count to 30,000. Chemistry profile revealed a serum potassium of 2.8 with a chloride of 95. Lactate was elevated 2.7. ALT and AST were within normal limits. test was negative. Urinalysis was positive for nitrites and leukocyte esterase. 1+ urine bacteria was noted with 10-25 urine white blood cells. Toxicology screen was positive for both opiates and amphetamines. HIV and hepatitis panel are currently pending. Due to the patient's irrational behavior and belligerence, she was intubated. A right subclavian central line was also placed. Lumbar puncture was performed. Fluid was colorless with an opening pressure of 17 cm. No organisms were identified. The patient received supplemental IV fluid hydration and was laced on antibiotics. She was subsequently admitted to the medical intensive care unit for ongoing management. Past Medical History Past Medical History (Chronic Problems): Chronic Problems Borderline personality disorder (Chronic) Depression (Chronic) Drug abuse (Chronic) heroin and cocaine Bipolar disorder (Chronic) Allergies nickel [Nickel] Allergy (Verified 12/16/17 14:55) Unknown Penicillins Allergy (Verified 12/16/17 14:55) Shortness of breath doxycycline Adverse Reaction (Verified 12/16/17 14:55) Vomiting metronidazole [From Flagyl] Adverse Reaction (Verified 12/16/17 14:55) Upset Stomach sulfamethoxazole [From Bactrim] Adverse Reaction (Verified 12/16/17 14:55) Upset Stomach trimethoprim [From Bactrim] Adverse Reaction (Verified 12/16/17 14:55) Upset Stomach Home Medications: Ambulatory Orders Medication Instructions Recorded Acetaminophen [Tylenol Tablet] 650 mg PO Q4H PRN PRN #100 tab 10/02/17 Acyclovir [Zovirax] 400 mg PO BID #60 tab 10/02/17 Clonidine HCl 0.05 mg PO TID PRN PRN #45 tab 10/02/17 Gabapentin [Neurontin] 600 mg PO TID #90 tab 10/02/17 Ibuprofen 600 mg PO TID #90 tab 10/02/17 Surgical History: noncontributory Psychiatric History: Bipolar - maybe...there is a question zach after BPD on the notes from the counselling center. 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 Respiratory viral panel is pending. Preliminary CSF Gram stain revealed no organisms. Preliminary anaerobic blood culture revealed gram-negative rods. Urine culture is pending. Hepatitis and HIV panel are pending. CT head was negative. Plain film chest x-ray revealed no acute cardiopulmonary process. - Physical Exam General: - - Currently intubated, sedated and mechanically ventilated. HEENT: Atraumatic, PERRLA, Normocephalic Oral: No Gingival or Mucosal Lesions/ Ulcerations, - - Endotracheal and OG tubes in place Neck: Supple, No Nodes, Trachea Midline, - - Subclavian central venous catheter in place Lungs: No rhonchi, No wheeze, No rales, Diminished Cardiovascular: Regular rate, Regular Rhythm, Normal S1, Normal S2, No murmurs Abdomen: Bowel Sounds Present, Soft, Non Tender Extremities: No clubbing, No cyanosis, No edema Skin: - - No rashes or skin breakdown. Several presumptive needle tracks on forearm. Musculoskeletal: No Muscle Wasting Lymphatic: No Cervical, Supraclavicular, or Inguinal Adenopathy Neurological: - - No focal neurological deficits. Attempts to move extremities spontaneously. Currently sedated with a RASS of -2 Vital Signs Temp Pulse Resp BP Pulse Ox 102.2 F H 82 14 108/66 100 12/17/17 00:00 12/17/17 05:15 12/17/17 05:15 12/17/17 00:00 12/17/17 05:15 Oxygen Delivery Method Mechanical Ventilator Weight: 169 lb 8.568 oz Body Mass Index (BMI) 16.7 Intake and Output for Last 24 Hours 12/15/17 12/16/17 12/17/17 23:59 23:59 23:59 Intake Total 1578 / 1578 1602 / 1602 Output Total 750 / 750 1000 / 1000 Balance 828 / 828 602 / 602 Microbiology Past 72 Hours 12/16/17 16:33 Blood Culture - Preliminary Blood Culture (Wb) - Right Forearm 12/16/17 18:40 Gram Stain - Preliminary Csf, Spinal Fluid Laboratory Tests Past 24 Hrs 12/16/17 12/16/17 12/16/17 15:15 15:15 15:15 WBC 29.2 H RBC 4.30 Hgb 12.4 Hct 36.5 L MCV 84.9 MCH 28.8 MCHC 34.0 RDW 13.7 RDW Differential 42.3 Plt Count 293 MPV 10.1 Immature Gran % (Auto) 0.200 Neut % (Auto) 90.8 H Lymph % (Auto) 6.0 L Gordon % (Auto) 2.9 Eos % (Auto) 0.0 Baso % (Auto) 0.1 Absolute Neuts (auto) 26.5 H Absolute Lymphs (auto) 1.75 Total Counted Not Reportable Differential Comment SCANNED PT Cancelled INR Cancelled APTT Cancelled Specimen Type Sample Site pH Bicarbonate Actual POC Total CO2 Base Excess O2 Saturation O2 % ABG pCO2 ABG pO2 Kevon Test Respiration Rate O2 Delivery Device Minute Volume Vent Mode Tidal Volume POC PEEP Blood Gas Notified Whom Blood Gas Notified Time Sodium 133 L Potassium 2.8 L Chloride 95 L Carbon Dioxide 25.0 Anion Gap 13 BUN 13 Creatinine 0.85 Estim Creat Clear Calc 67.67 Est GFR (MDRD) Af Amer 105 Est GFR (MDRD) Non-Af 87 BUN/Creatinine Ratio 15.3 Glucose 126 H Lactic Acid Calcium 9.0 Phosphorus Magnesium Total Bilirubin 1.10 H Direct Bilirubin AST 23 ALT 25 Alkaline Phosphatase 78 Total Creatine Kinase Total Protein 8.0 Albumin 3.0 L Globulin 5.0 H Albumin/Globulin Ratio 0.6 L Triglycerides Serum , Qual Urine Color Urine Clarity Urine pH Ur Specific Bruning Urine Protein Urine Glucose (UA) Urine Ketones Urine Occult Blood Urine Nitrite Urine Bilirubin Urine Urobilinogen Ur Leukocyte Esterase Urine RBC Urine WBC Ur Squamous Epith Cells Urine Bacteria Urine Mucus Urine Trichomonas Fld Polynuclear WBCs # Fld Polynuclear WBCs % Fluid Mononuclear WBCs Fld Mononuclear WBCs % CSF Appearance CSF Color CSF WBC CSF RBC CSF Cell Count Tube # CSF Total Cell Counted CSF Comment CSF Glucose CSF Total Protein Urine Opiates Screen Urine Methadone Screen Ur Barbiturates Screen Ur Phencyclidine Scrn Ur Amphetamines Screen U Methamphetamin-MDMA U Benzodiazepines Scrn Urine Cocaine Screen U Cannabinoids Screen Ur Drug Screen Comment Hep Bs Antigen Hep Bs Antibody Hep B Core Total Ab Hepatitis C Ab (EIA) Herpes Simplex Culture HSV I DNA PCR HSV II DNA PCR HSV Final Result HIV 1&2 Antibody 12/16/17 12/16/17 12/16/17 15:15 16:20 16:20 WBC RBC Hgb Hct MCV MCH MCHC RDW RDW Differential Plt Count MPV Immature Gran % (Auto) Neut % (Auto) Lymph % (Auto) Gordon % (Auto) Eos % (Auto) Baso % (Auto) Absolute Neuts (auto) Absolute Lymphs (auto) Total Counted Differential Comment PT Cancelled INR Cancelled APTT Cancelled Specimen Type Sample Site pH Bicarbonate Actual POC Total CO2 Base Excess O2 Saturation O2 % ABG pCO2 ABG pO2 Kevon Test Respiration Rate O2 Delivery Device Minute Volume Vent Mode Tidal Volume POC PEEP Blood Gas Notified Whom Blood Gas Notified Time Sodium Potassium Chloride Carbon Dioxide Anion Gap BUN Creatinine Estim Creat Clear Calc Est GFR (MDRD) Af Amer Est GFR (MDRD) Non-Af BUN/Creatinine Ratio Glucose Lactic Acid 2.7 H Calcium Phosphorus Magnesium Total Bilirubin Direct Bilirubin AST ALT Alkaline Phosphatase Total Creatine Kinase Total Protein Albumin Globulin Albumin/Globulin Ratio Triglycerides Serum , Qual NEGATIVE Urine Color Urine Clarity Urine pH Ur Specific Bruning Urine Protein Urine Glucose (UA) Urine Ketones Urine Occult Blood Urine Nitrite Urine Bilirubin Urine Urobilinogen Ur Leukocyte Esterase Urine RBC Urine WBC Ur Squamous Epith Cells Urine Bacteria Urine Mucus Urine Trichomonas Fld Polynuclear WBCs # Fld Polynuclear WBCs % Fluid Mononuclear WBCs Fld Mononuclear WBCs % CSF Appearance CSF Color CSF WBC CSF RBC CSF Cell Count Tube # CSF Total Cell Counted CSF Comment CSF Glucose CSF Total Protein Urine Opiates Screen Urine Methadone Screen Ur Barbiturates Screen Ur Phencyclidine Scrn Ur Amphetamines Screen U Methamphetamin-MDMA U Benzodiazepines Scrn Urine Cocaine Screen U Cannabinoids Screen Ur Drug Screen Comment Hep Bs Antigen Hep Bs Antibody Hep B Core Total Ab Hepatitis C Ab (EIA) Herpes Simplex Culture HSV I DNA PCR HSV II DNA PCR HSV Final Result HIV 1&2 Antibody 12/16/17 12/16/17 12/16/17 16:20 16:20 16:22 WBC RBC Hgb Hct MCV MCH MCHC RDW RDW Differential Plt Count MPV Immature Gran % (Auto) Neut % (Auto) Lymph % (Auto) Gordon % (Auto) Eos % (Auto) Baso % (Auto) Absolute Neuts (auto) Absolute Lymphs (auto) Total Counted Differential Comment PT INR APTT Specimen Type ART Sample Site R Radial pH 7.41 Bicarbonate Actual 23.6 POC Total CO2 25 Base Excess -1 O2 Saturation 100 H O2 % 50 ABG pCO2 37.3 ABG pO2 232 H Kevon Test POS Respiration Rate 14 O2 Delivery Device Vent Minute Volume 9.00 Vent Mode A-C Tidal Volume 400 POC PEEP 5 Blood Gas Notified Whom ED Blood Gas Notified Time 1621 Sodium Potassium Chloride Carbon Dioxide Anion Gap BUN Creatinine Estim Creat Clear Calc Est GFR (MDRD) Af Amer Est GFR (MDRD) Non-Af BUN/Creatinine Ratio Glucose Lactic Acid Calcium Phosphorus Magnesium Total Bilirubin Direct Bilirubin AST ALT Alkaline Phosphatase Total Creatine Kinase Total Protein Albumin Globulin Albumin/Globulin Ratio Triglycerides Serum , Qual Urine Color Urine Clarity Urine pH Ur Specific Bruning Urine Protein Urine Glucose (UA) Urine Ketones Urine Occult Blood Urine Nitrite Urine Bilirubin Urine Urobilinogen Ur Leukocyte Esterase Urine RBC Urine WBC Ur Squamous Epith Cells Urine Bacteria Urine Mucus Urine Trichomonas Fld Polynuclear WBCs # Fld Polynuclear WBCs % Fluid Mononuclear WBCs Fld Mononuclear WBCs % CSF Appearance CSF Color CSF WBC CSF RBC CSF Cell Count Tube # CSF Total Cell Counted CSF Comment CSF Glucose CSF Total Protein Urine Opiates Screen Urine Methadone Screen Ur Barbiturates Screen Ur Phencyclidine Scrn Ur Amphetamines Screen U Methamphetamin-MDMA U Benzodiazepines Scrn Urine Cocaine Screen U Cannabinoids Screen Ur Drug Screen Comment Hep Bs Antigen Pending Hep Bs Antibody Pending Hep B Core Total Ab Pending Hepatitis C Ab (EIA) Pending Herpes Simplex Culture Pending HSV I DNA PCR Pending HSV II DNA PCR Pending HSV Final Result Pending HIV 1&2 Antibody Non-Reactive 12/16/17 12/16/17 12/16/17 16:23 16:23 17:50 WBC RBC Hgb Hct MCV MCH MCHC RDW RDW Differential Plt Count MPV Immature Gran % (Auto) Neut % (Auto) Lymph % (Auto) Gordon % (Auto) Eos % (Auto) Baso % (Auto) Absolute Neuts (auto) Absolute Lymphs (auto) Total Counted Differential Comment PT 17.5 H INR 1.4 APTT 43.3 H Specimen Type Sample Site pH Bicarbonate Actual POC Total CO2 Base Excess O2 Saturation O2 % ABG pCO2 ABG pO2 Kevon Test Respiration Rate O2 Delivery Device Minute Volume Vent Mode Tidal Volume POC PEEP Blood Gas Notified Whom Blood Gas Notified Time Sodium Potassium Chloride Carbon Dioxide Anion Gap BUN Creatinine Estim Creat Clear Calc Est GFR (MDRD) Af Amer Est GFR (MDRD) Non-Af BUN/Creatinine Ratio Glucose Lactic Acid Calcium Phosphorus Magnesium Total Bilirubin Direct Bilirubin AST ALT Alkaline Phosphatase Total Creatine Kinase Total Protein Albumin Globulin Albumin/Globulin Ratio Triglycerides Serum , Qual Urine Color Yellow Urine Clarity Sl. Cloudy Urine pH 6.0 Ur Specific Bruning 1.010 Urine Protein 100 H Urine Glucose (UA) Normal Urine Ketones 150 H Urine Occult Blood 25 H Urine Nitrite Positive H Urine Bilirubin Negative Urine Urobilinogen Normal Ur Leukocyte Esterase 500 H Urine RBC 0-5 SEEN Urine WBC 10-25 SEEN Ur Squamous Epith Cells 0-5 SEEN Urine Bacteria 1+ Urine Mucus 0 SEEN Urine Trichomonas 0-5 SEEN Fld Polynuclear WBCs # Fld Polynuclear WBCs % Fluid Mononuclear WBCs Fld Mononuclear WBCs % CSF Appearance CSF Color CSF WBC CSF RBC CSF Cell Count Tube # CSF Total Cell Counted CSF Comment CSF Glucose CSF Total Protein Urine Opiates Screen POSITIVE H Urine Methadone Screen NEGATIVE Ur Barbiturates Screen NEGATIVE Ur Phencyclidine Scrn NEGATIVE Ur Amphetamines Screen POSITIVE H U Methamphetamin-MDMA NEGATIVE U Benzodiazepines Scrn NEGATIVE Urine Cocaine Screen NEGATIVE U Cannabinoids Screen NEGATIVE Ur Drug Screen Comment Hep Bs Antigen Hep Bs Antibody Hep B Core Total Ab Hepatitis C Ab (EIA) Herpes Simplex Culture HSV I DNA PCR HSV II DNA PCR HSV Final Result HIV 1&2 Antibody 12/16/17 12/16/17 12/16/17 18:40 18:40 18:40 WBC RBC Hgb Hct MCV MCH MCHC RDW RDW Differential Plt Count MPV Immature Gran % (Auto) Neut % (Auto) Lymph % (Auto) Gordon % (Auto) Eos % (Auto) Baso % (Auto) Absolute Neuts (auto) Absolute Lymphs (auto) Total Counted Differential Comment PT INR APTT Specimen Type Sample Site pH Bicarbonate Actual POC Total CO2 Base Excess O2 Saturation O2 % ABG pCO2 ABG pO2 Kevon Test Respiration Rate O2 Delivery Device Minute Volume Vent Mode Tidal Volume POC PEEP Blood Gas Notified Whom Blood Gas Notified Time Sodium Potassium Chloride Carbon Dioxide Anion Gap BUN Creatinine Estim Creat Clear Calc Est GFR (MDRD) Af Amer Est GFR (MDRD) Non-Af BUN/Creatinine Ratio Glucose Lactic Acid Calcium Phosphorus Magnesium Total Bilirubin Direct Bilirubin AST ALT Alkaline Phosphatase Total Creatine Kinase Total Protein Albumin Globulin Albumin/Globulin Ratio Triglycerides Serum , Qual Urine Color Urine Clarity Urine pH Ur Specific Bruning Urine Protein Urine Glucose (UA) Urine Ketones Urine Occult Blood Urine Nitrite Urine Bilirubin Urine Urobilinogen Ur Leukocyte Esterase Urine RBC Urine WBC Ur Squamous Epith Cells Urine Bacteria Urine Mucus Urine Trichomonas Fld Polynuclear WBCs # 0.000 Fld Polynuclear WBCs % 0.0 Fluid Mononuclear WBCs 0.001 Fld Mononuclear WBCs % 100.0 CSF Appearance CLEAR CSF Color COLORLESS CSF WBC 0.001 H CSF RBC 0 CSF Cell Count Tube # 4 CSF Total Cell Counted 0.001 H CSF Comment May follow CSF Glucose 70 CSF Total Protein 23.0 Urine Opiates Screen Urine Methadone Screen Ur Barbiturates Screen Ur Phencyclidine Scrn Ur Amphetamines Screen U Methamphetamin-MDMA U Benzodiazepines Scrn Urine Cocaine Screen U Cannabinoids Screen Ur Drug Screen Comment Hep Bs Antigen Hep Bs Antibody Hep B Core Total Ab Hepatitis C Ab (EIA) Herpes Simplex Culture HSV I DNA PCR HSV II DNA PCR HSV Final Result HIV 1&2 Antibody 12/16/17 12/16/17 12/16/17 20:23 21:36 21:45 WBC RBC Hgb Hct MCV MCH MCHC RDW RDW Differential Plt Count MPV Immature Gran % (Auto) Neut % (Auto) Lymph % (Auto) Gordon % (Auto) Eos % (Auto) Baso % (Auto) Absolute Neuts (auto) Absolute Lymphs (auto) Total Counted Differential Comment PT INR APTT Specimen Type Sample Site pH Bicarbonate Actual POC Total CO2 Base Excess O2 Saturation O2 % ABG pCO2 ABG pO2 Kevon Test Respiration Rate O2 Delivery Device Minute Volume Vent Mode Tidal Volume POC PEEP Blood Gas Notified Whom Blood Gas Notified Time Sodium Potassium Chloride Carbon Dioxide Anion Gap BUN Creatinine Estim Creat Clear Calc Est GFR (MDRD) Af Amer Est GFR (MDRD) Non-Af BUN/Creatinine Ratio Glucose Lactic Acid 1.2 1.0 Calcium Phosphorus Magnesium Total Bilirubin Direct Bilirubin AST ALT Alkaline Phosphatase Total Creatine Kinase 124 Total Protein Albumin Globulin Albumin/Globulin Ratio Triglycerides 79 Serum , Qual Urine Color Urine Clarity Urine pH Ur Specific Bruning Urine Protein Urine Glucose (UA) Urine Ketones Urine Occult Blood Urine Nitrite Urine Bilirubin Urine Urobilinogen Ur Leukocyte Esterase Urine RBC Urine WBC Ur Squamous Epith Cells Urine Bacteria Urine Mucus Urine Trichomonas Fld Polynuclear WBCs # Fld Polynuclear WBCs % Fluid Mononuclear WBCs Fld Mononuclear WBCs % CSF Appearance CSF Color CSF WBC CSF RBC CSF Cell Count Tube # CSF Total Cell Counted CSF Comment CSF Glucose CSF Total Protein Urine Opiates Screen Urine Methadone Screen Ur Barbiturates Screen Ur Phencyclidine Scrn Ur Amphetamines Screen U Methamphetamin-MDMA U Benzodiazepines Scrn Urine Cocaine Screen U Cannabinoids Screen Ur Drug Screen Comment Hep Bs Antigen Hep Bs Antibody Hep B Core Total Ab Hepatitis C Ab (EIA) Herpes Simplex Culture HSV I DNA PCR HSV II DNA PCR HSV Final Result HIV 1&2 Antibody 12/17/17 12/17/17 12/17/17 04:35 04:35 04:35 WBC 20.6 H RBC 3.13 L Hgb 9.1 L Hct 26.7 L MCV 85.3 MCH 29.1 MCHC 34.1 RDW 14.1 RDW Differential 44.1 H Plt Count 193 MPV 9.5 Immature Gran % (Auto) Neut % (Auto) Lymph % (Auto) Gordon % (Auto) Eos % (Auto) Baso % (Auto) Absolute Neuts (auto) Absolute Lymphs (auto) Total Counted Differential Comment PT INR APTT Specimen Type Sample Site pH Bicarbonate Actual POC Total CO2 Base Excess O2 Saturation O2 % ABG pCO2 ABG pO2 Kevon Test Respiration Rate O2 Delivery Device Minute Volume Vent Mode Tidal Volume POC PEEP Blood Gas Notified Whom Blood Gas Notified Time Sodium 144 Potassium 3.2 L Chloride 110 H Carbon Dioxide 23.0 Anion Gap 11 BUN 9 Creatinine 0.53 L Estim Creat Clear Calc 121.70 Est GFR (MDRD) Af Amer 180 Est GFR (MDRD) Non-Af 149 BUN/Creatinine Ratio 16.9 Glucose 82 Lactic Acid Calcium 6.7 L Phosphorus 2.1 L Magnesium 1.7 Total Bilirubin 0.40 Direct Bilirubin 0.21 AST 19 ALT 19 Alkaline Phosphatase 58 Total Creatine Kinase Total Protein 5.4 L Albumin 1.9 L Globulin 3.5 Albumin/Globulin Ratio Triglycerides Serum , Qual Urine Color Urine Clarity Urine pH Ur Specific Bruning Urine Protein Urine Glucose (UA) Urine Ketones Urine Occult Blood Urine Nitrite Urine Bilirubin Urine Urobilinogen Ur Leukocyte Esterase Urine RBC Urine WBC Ur Squamous Epith Cells Urine Bacteria Urine Mucus Urine Trichomonas Fld Polynuclear WBCs # Fld Polynuclear WBCs % Fluid Mononuclear WBCs Fld Mononuclear WBCs % CSF Appearance CSF Color CSF WBC CSF RBC CSF Cell Count Tube # CSF Total Cell Counted CSF Comment CSF Glucose CSF Total Protein Urine Opiates Screen Urine Methadone Screen Ur Barbiturates Screen Ur Phencyclidine Scrn Ur Amphetamines Screen U Methamphetamin-MDMA U Benzodiazepines Scrn Urine Cocaine Screen U Cannabinoids Screen Ur Drug Screen Comment Hep Bs Antigen Hep Bs Antibody Hep B Core Total Ab Hepatitis C Ab (EIA) Herpes Simplex Culture HSV I DNA PCR HSV II DNA PCR HSV Final Result HIV 1&2 Antibody Clinical Impression(s) from Imaging Studies Chest X-Ray 12/16/17 15:02 IMPRESSION: Normal x-ray examination of the chest. Electronically Signed: Leslie Orozco MD at 15:27 EDT Tel , Service support , Brain CT 12/16/17 15:48 IMPRESSION: No acute intracranial abnormality. Electronically Signed: Shad Slade, at 17:21 EDT Tel , Service support , Chest X-Ray 12/16/17 16:00 IMPRESSION: Satisfactory position of the support lines and tubes. No acute thoracic pathology. Electronically Signed: Shad Slade, at 16:29 EDT Tel , Service support , Chest X-Ray 12/16/17 17:50 IMPRESSION: Satisfactory position of the support lines and tubes. No acute thoracic pathology. Electronically Signed: Shad Slade, at 18:56 EDT Tel , Service support , Assessment/Plan Active and Suspected Problems Severe sepsis (Acute) UTI (urinary tract infection) (Acute) Toxic encephalopathy (Acute) RECOMMENDATIONS: 1. Transition from ceftriaxone to Zosyn every 8 hours. 2. Obtain new set of blood cultures today. 3. Check respiratory viral panel 4. Start as needed aerosol treatments 5. Aggressive electrolyte repletion as indicated. 6. Wean the patient from ketamine and continue propofol and fentanyl for sedation. 7. Continue Lovenox and Protonix for ICU prophylaxis 8. Check MRSA screen. 9. Start tube feeds today IMPRESSIONS: 1. Acute respiratory failure The patient was initially intubated in the emergency department due to agitation. No acute underlying pulmonary infectious process was identified on chest imaging studies. Regardless, she will remain on empiric antibiotics, pending a finalized infectious workup. Her ventilator requirements are minimal. Continue propofol and fentanyl for sedation. The patient has been weaned from ketamine completely. Plan for daily paired spontaneous awakening and breathing trials. Obtain and send respiratory viral panel. Tube feeds can be initiated today. 2. Severe sepsis Concern for potential underlying urinary source of infection. The patient's anaerobic blood culture was also noted to have gram-negative rods. She is on appropriate antibiotics at the current time. We will plan to repeat her blood cultures today. She remains hemodynamically stable and has been adequately volume resuscitated. 3. Encephalopathy Likely multifactorial in etiology with underlying infectious process, substance abuse and mental health disorder contributing. Anticipate slow improvement as the patient's infectious process is treated. She will be continued on propofol and fentanyl for sedation. 4. Hypokalemia/hypophosphatemia Electrolyte repletion is underway. Recommend rechecking levels tomorrow morning. 5. History of polysubstance abuse/unspecified mental health disorder Complicates care, management, recovery and prognosis. Will ask social work/case management to assist. These issues will need to be addressed further once the patient has been successfully extubated. TIME: 45 minutes of critical care time, independent of procedures, was spent addressing the patient's acute respiratory failure, severe sepsis, encephalopathy, hypokalemia, hypophosphatemia, review of all data and collaboration with the care team. ([id number]) Code Visit [id number]: [id number] Critical care first hour
--- NOTE | 2017-12-17 07:27 | PN_ITS ---
Patient Problems: Active and Suspected Problems Severe sepsis (Acute) UTI (urinary tract infection) (Acute) Toxic encephalopathy (Acute) Subjective: The patient was admitted yesterday for abnormal behavior, with altered mental status, confusion, pressured speech and paranoid delusion. She has history of polysubstance use. She was very agitated and was electively intubated in ED and was determined to be threat to herself as well as others. Initially patient was put on propofol which was changed to ketamine because of drop in blood pressure. She had a central line placed in ED. LP was done in view of fever and concern for sepsis and unable to get history Currently, she is in ICU intubated, sedated on propofol and fentanyl drip. Vitals/I&O's: Vital Signs Temp Pulse Resp BP Pulse Ox 97 F L 78 14 92/67 100 12/17/17 06:00 12/17/17 06:00 12/17/17 06:00 12/17/17 06:00 12/17/17 06:00 Oxygen Delivery Method Mechanical Ventilator Weight: 169 lb 8.568 oz Body Mass Index (BMI) 16.7 Intake and Output for Last 24 Hours 12/15/17 12/16/17 12/17/17 23:59 23:59 23:59 Intake Total 1578 / 1578 1602 / 1602 Output Total 750 / 750 1000 / 1000 Balance 828 / 828 602 / 602 General: - - Sedated HEENT: - - Mild conjunctival edema Oral: - - ET and OG tube Neck: Supple, No JVD, Negative Carotid Bruits Lungs: Clear to auscultation, - - On vent support Cardiovascular: Regular rate, Regular Rhythm, Normal S1, Normal S2, No murmurs Abdomen: Bowel Sounds Present, Soft, Non Tender, Non-Distended Extremities: No edema, Capillary Refill Less than 3 Seconds Skin: - - Skin track [place] present over both forearms Musculoskeletal: No Tenderness to Palpation of Joints or Extremities Neurological: - - Neuro exam cannot be performed because she is sedated Microbiology Past 72 Hours 12/16/17 16:33 Blood Culture (Wb) - Right Forearm Blood Culture - Preliminary 12/16/17 18:40 Csf, Spinal Fluid Gram Stain - Preliminary Laboratory Results 12/16/17 15:15: WBC 29.2 H, RBC 4.30, Hgb 12.4, Hct 36.5 L, MCV 84.9, MCH 28.8, MCHC 34.0, RDW 13.7, RDW Differential 42.3, Plt Count 293, MPV 10.1, Immature Gran % (Auto) 0.200, Neut % (Auto) 90.8 H, Lymph % (Auto) 6.0 L, [place] % (Auto) 2.9, Eos % (Auto) 0.0, Baso % (Auto) 0.1, Absolute Neuts (auto) 26.5 H, Absolute Lymphs (auto) 1.75, Total Counted Not Reportable, Differential Comment SCANNED 12/16/17 15:15: PT Cancelled, INR Cancelled, APTT Cancelled 12/16/17 15:15: Sodium 133 L, Potassium 2.8 L, Chloride 95 L, Carbon Dioxide 25.0, Anion Gap 13, BUN 13, Creatinine 0.85, Estim Creat Clear Calc 67.67, Est GFR (MDRD) Af Amer 105, Est GFR (MDRD) Non-Af 87, BUN/Creatinine Ratio 15.3, Glucose 126 H, Calcium 9.0, Total Bilirubin 1.10 H, AST 23, ALT 25, Alkaline Phosphatase 78, Total Protein 8.0, Albumin 3.0 L, Globulin 5.0 H, Albumin/Globulin Ratio 0.6 L 12/16/17 15:15: Lactic Acid 2.7 H 12/16/17 16:20: Serum , Qual NEGATIVE 12/16/17 16:20: PT Cancelled, INR Cancelled, APTT Cancelled 12/16/17 16:20: Hep Bs Antigen Pending, Hep Bs Antibody Pending, Hep B Core Total Ab Pending, Hepatitis C Ab (EIA) Pending, Herpes Simplex Culture Pending, HSV I DNA PCR Pending, HSV II DNA PCR Pending, HSV Final Result Pending 12/16/17 16:20: HIV 1&2 Antibody Non-Reactive 12/16/17 16:22: Specimen Type ART, Sample Site R Radial, pH 7.41, Bicarbonate Actual 23.6, POC Total CO2 25, Base Excess -1, O2 Saturation 100 H, O2 % 50, ABG pCO2 37.3, ABG pO2 232 H, Kevon Test POS, Respiration Rate 14, O2 Delivery Device Vent, Minute Volume 9.00, Vent Mode A-C, Tidal Volume 400, POC PEEP 5, Blood Gas Notified Whom ED , Blood Gas Notified Time 1621 12/16/17 16:23: Urine Color Yellow, Urine Clarity Sl. Cloudy, Urine pH 6.0, Ur Specific Noti 1.010, Urine Protein 100 H, Urine Glucose (UA) Normal, Urine Ketones 150 H, Urine Occult Blood 25 H, Urine Nitrite Positive H, Urine Bilirubin Negative, Urine Urobilinogen Normal, Ur Leukocyte Esterase 500 H, Urine RBC 0-5 SEEN, Urine WBC 10-25 SEEN, Ur Squamous Epith Cells 0-5 SEEN, Urine Bacteria 1+, Urine Mucus 0 SEEN, Urine Trichomonas 0-5 SEEN 12/16/17 16:23: Urine Opiates Screen POSITIVE H, Urine Methadone Screen NEGATIVE, Ur Barbiturates Screen NEGATIVE, Ur Phencyclidine Scrn NEGATIVE, Ur Amphetamines Screen POSITIVE H, U Methamphetamin-MDMA NEGATIVE, U Benzodiazepines Scrn NEGATIVE, Urine Cocaine Screen NEGATIVE, U Cannabinoids Screen NEGATIVE, Ur Drug Screen Comment 12/16/17 17:50: PT 17.5 H, INR 1.4, APTT 43.3 H 12/16/17 18:40: CSF Glucose 70 12/16/17 18:40: CSF Total Protein 23.0 12/16/17 18:40: Fld Polynuclear WBCs # 0.000, Fld Polynuclear WBCs % 0.0, Fluid Mononuclear WBCs 0.001, Fld Mononuclear WBCs % 100.0, CSF Appearance CLEAR, CSF Color COLORLESS, CSF WBC 0.001 H, CSF RBC 0, CSF Cell Count Tube # 4, CSF Total Cell Counted 0.001 H, CSF Comment May follow 12/16/17 20:23: Lactic Acid 1.2 12/16/17 21:36: Total Creatine Kinase 124, Triglycerides 79 12/16/17 21:45: Lactic Acid 1.0 12/17/17 04:35: WBC 20.6 H, RBC 3.13 L, Hgb 9.1 L, Hct 26.7 L, MCV 85.3, MCH 29.1, MCHC 34.1, RDW 14.1, RDW Differential 44.1 H, Plt Count 193, MPV 9.5 12/17/17 04:35: Sodium 144, Potassium 3.2 L, Chloride 110 H, Carbon Dioxide 23.0, Anion Gap 11, BUN 9, Creatinine 0.53 L, Estim Creat Clear Calc 121.70, Est GFR (MDRD) Af Amer 180, Est GFR (MDRD) Non-Af 149, BUN/Creatinine Ratio 16.9, Glucose 82, Calcium 6.7 L 12/17/17 04:35: Phosphorus 2.1 L, Magnesium 1.7, Total Bilirubin 0.40, Direct Bilirubin 0.21, AST 19, ALT 19, Alkaline Phosphatase 58, Total Protein 5.4 L, Albumin 1.9 L, Globulin 3.5 Current Medications Acetaminophen (Tylenol Liquid) 650 mg GT Q6H PRN PRN PRN Reason: FEVER Last Admin: 12/16/17 23:03 Dose: 650 mg Acyclovir (Zovirax) 400 mg NG BID [facility] Last Admin: 12/16/17 22:50 Dose: 400 mg Albuterol Sulfate (Ventolin Aerosols) 2.5 mg INHALATION Q2H PRN PRN PRN Reason: SHORTNESS OF BREATH Albuterol Sulfate (Ventolin Aerosols) 2.5 mg INHALATION Q4H.RT [facility] Last Admin: 12/17/17 02:15 Dose: Not Given Chlorhexidine Gluconate () 15 ml PO BID [facility] Last Admin: 12/16/17 22:50 Dose: 15 ml Chlorhexidine Gluconate () 1 each TOPICAL DAILY [facility] Last Admin: 12/17/17 06:15 Dose: 1 each Dexamethasone Sodium Phosphate (Decadron) 6 mg IV Q6 [facility] Stop: 12/20/17 18:01 Last Admin: 12/17/17 06:06 Dose: 6 mg Enoxaparin Sodium (Lovenox) 40 mg SC DAILY@1000 [facility] Ketamine HCl 250 mg/ Sodium (Chloride) 255 mls @ 12.85 mls/hr IV .[id number] [facility] Last Admin: 12/16/17 17:36 Dose: 12.6 mls/hr Sodium Chloride () 1,000 mls @ 150 mls/hr IV .[id number] [facility] Last Admin: 12/17/17 02:06 Dose: 150 mls/hr Fentanyl () 100 mls @ 5 mls/hr IV .Q20H [facility] Last Admin: 12/17/17 06:05 Dose: 5 mls/hr Propofol (Diprivan) 1,000 mg in 100 mls @ 1.26 mls/hr CONT INF .Q12H [facility]; Protocol Last Admin: 12/17/17 03:42 Dose: 1.26 mls/hr Sodium Chloride () 250 mls @ 15 mls/hr IV .[id number] PRN PRN Reason: SALINE FLUSH Pantoprazole Sodium 40 mg/ (Sodium Chloride) 110 mls @ 330 mls/hr IV Q24 [facility] Last Admin: 12/17/17 04:28 Dose: 330 mls/hr Calcium Gluconate 2 gm/ (Dextrose) 120 mls @ 60 mls/hr IV X1 ONE Stop: 12/17/17 08:29 Sodium Phosphate 21 mm/ Sodium (Chloride) 257 mls @ 84 mls/hr IV X1 ONE Stop: 12/17/17 09:33 Piperacillin Sod/Tazobactam Sod (Zosyn) 3.375 gm in 50 mls @ 12.5 mls/hr IV Q8 [facility] Magnesium Hydroxide (Milk Of Magnesia) 30 ml PO DAILY PRN PRN PRN Reason: Constipation Sodium Chloride () 5 - 30 ml IV UD PRN PRN Reason: SALINE FLUSH Last Admin: 12/17/17 04:50 Dose: 20 ml Sodium Chloride () 10 - 40 ml IV UD PRN PRN Reason: MULTILUMEN/HICMAN CATH FLUSH Last Admin: 12/17/17 02:07 Dose: 40 ml Medical Necessity - Tobacco Use Smoking Status: Current every day smoker Assessment/Plan All Active Problems Severe sepsis (Acute) UTI (urinary tract infection) (Acute) Toxic encephalopathy (Acute) Opiate withdrawal (Acute) Overdose (Resolved) This is a 22-year-old female with history of borderline personality disorder, depression probably bipolar disorder, polysubstance use (heroin and cocaine use and dependence) was admitted on 12/16/2017 for paranoid delusion, confusion, agitation altered mental status consistent with acute encephalopathy probably related to polysubstance use. Patient was tachycardic, tachypneic, leukocytosis, lactic acidosis, was hypokalemic. UA was positive for nitrites and LE, 10-25 WBCs per HPF and 1+ bacteria. Patient was intubated on ventilator after sedation in ER. She had LP done. Opening pressure was 17 cm H2O. CSF fluid analysis is negative for bacterial meningitis. Patient has right subclavian central venous catheter. 1. Severe sepsis (tachycardia, tachypnea, leukocytosis with left shift), present on admission, exact etiology unclear suspect UTI: Currently on broad- spectrum antibiotic. Started on vancomycin and ceftriaxone. CSF Gram stain showed no organism. CSF WBC total 1. Glucose 70, total protein 23. Vancomycin was discontinued. Ceftriaxone was changed to Zosyn. On acyclovir. * Leukocytosis improving. Repeat lactic acid normal. * LFT shows hypoalbuminemia, hyperglobulinemia probably consistent with decreased synthetic function due to metabolic liver disease secondary to chronic polysubstance use 2. UTI * Blood cultures x2 was sent in ER. Respiratory panel pending. Urine culture pending. Follow-up cultures. Rest as mentioned above * 3. Toxic encephalopathy * Drug screen positive for opiates and amphetamines. There is concern for other synthetic drugs like spice or bath salts or mixed drug with amphetamine and opioids. CT brain does not show acute intracranial pathology. * [facility] consult when she is extubated later on. Electrolyte imbalance: Patient has hyponatremia, hypokalemia, hypochloremia. Electrolyte replacement and monitoring. 4. Polysubstance abuse * Complicates care * As mentioned above 5. DVT prophylaxis with SCDs and Lovenox Active Medications Acetaminophen (Tylenol Liquid) 650 mg GT Q6H PRN PRN PRN Reason: FEVER Last Admin: 12/16/17 23:03 Dose: 650 mg Acyclovir (Zovirax) 400 mg NG BID [facility] Last Admin: 12/16/17 22:50 Dose: 400 mg Albuterol Sulfate (Ventolin Aerosols) 2.5 mg INHALATION Q2H PRN PRN PRN Reason: SHORTNESS OF BREATH Albuterol Sulfate (Ventolin Aerosols) 2.5 mg INHALATION Q4H.RT [facility] Last Admin: 12/17/17 02:15 Dose: Not Given Chlorhexidine Gluconate () 15 ml PO BID [facility] Last Admin: 12/16/17 22:50 Dose: 15 ml Chlorhexidine Gluconate () 1 each TOPICAL DAILY [facility] Last Admin: 12/17/17 06:15 Dose: 1 each Dexamethasone Sodium Phosphate (Decadron) 6 mg IV Q6 [facility] Stop: 12/20/17 18:01 Last Admin: 12/17/17 06:06 Dose: 6 mg Enoxaparin Sodium (Lovenox) 40 mg SC DAILY@1000 [facility] Ketamine HCl 250 mg/ Sodium (Chloride) 255 mls @ 12.85 mls/hr IV .[id number] [facility] Last Admin: 12/16/17 17:36 Dose: 12.6 mls/hr Sodium Chloride () 1,000 mls @ 150 mls/hr IV .[id number] [facility] Last Admin: 12/17/17 02:06 Dose: 150 mls/hr Fentanyl () 100 mls @ 5 mls/hr IV .Q20H [facility] Last Admin: 12/17/17 06:05 Dose: 5 mls/hr Propofol (Diprivan) 1,000 mg in 100 mls @ 1.26 mls/hr CONT INF .Q12H [facility]; Protocol Last Admin: 12/17/17 03:42 Dose: 1.26 mls/hr Sodium Chloride () 250 mls @ 15 mls/hr IV .[id number] PRN PRN Reason: SALINE FLUSH Last Admin: 12/17/17 07:34 Dose: 15 mls/hr Pantoprazole Sodium 40 mg/ (Sodium Chloride) 110 mls @ 330 mls/hr IV Q24 [facility] Last Admin: 12/17/17 04:28 Dose: 330 mls/hr Sodium Phosphate 21 mm/ Sodium (Chloride) 257 mls @ 84 mls/hr IV X1 ONE Stop: 12/17/17 09:33 Last Admin: 12/17/17 07:33 Dose: 84 mls/hr Piperacillin Sod/Tazobactam Sod (Zosyn) 3.375 gm in 50 mls @ 12.5 mls/hr IV Q8 [facility] Magnesium Hydroxide (Milk Of Magnesia) 30 ml PO DAILY PRN PRN PRN Reason: Constipation Sodium Chloride () 5 - 30 ml IV UD PRN PRN Reason: SALINE FLUSH Last Admin: 12/17/17 04:50 Dose: 20 ml Sodium Chloride () 10 - 40 ml IV UD PRN PRN Reason: MULTILUMEN/HICMAN CATH FLUSH Last Admin: 12/17/17 02:07 Dose: 40 ml Microbiology Past 72 Hours 12/16/17 16:33 Blood Culture (Wb) - Right Forearm Blood Culture - Preliminary 12/16/17 18:40 Csf, Spinal Fluid Gram Stain - Preliminary Laboratory Results 12/16/17 21:45: Lactic Acid 1.0 12/17/17 04:35: WBC 20.6 H, RBC 3.13 L, Hgb 9.1 L, Hct 26.7 L, MCV 85.3, MCH 29.1, MCHC 34.1, RDW 14.1, RDW Differential 44.1 H, Plt Count 193, MPV 9.5 12/17/17 04:35: Sodium 144, Potassium 3.2 L, Chloride 110 H, Carbon Dioxide 23.0, Anion Gap 11, BUN 9, Creatinine 0.53 L, Estim Creat Clear Calc 121.70, Est GFR (MDRD) Af Amer 180, Est GFR (MDRD) Non-Af 149, BUN/Creatinine Ratio 16.9, Glucose 82, Calcium 6.7 L 12/17/17 04:35: Phosphorus 2.1 L, Magnesium 1.7, Total Bilirubin 0.40, Direct Bilirubin 0.21, AST 19, ALT 19, Alkaline Phosphatase 58, Total Protein 5.4 L, Albumin 1.9 L, Globulin 3.5 12/17/17 08:30: MRSA (PCR) Pending Code Visit Inpatient E&M: [id number] Subs Hosp L3
[2017-12-17] MEDS: 0.9% NaCl IVPB Med Flush (250 mL) 15 ML IV (07:34)
[2017-12-17] MEDS: Piperacil/Tazobactam 3.375 GM/50 ML ML IV ×3 (09:24→21:24)
[2017-12-17] MEDS: Enoxaparin 40 MG/0.4 ML Syringe SC (10:15)
[2017-12-17] MEDS: Chlorhexidine 15 ML PO ×2 (10:15→21:25)
[2017-12-17] MEDS: Acyclovir 200 MG Capsule 400 MG NG ×2 (10:16→21:24)
[2017-12-17 12:30] LABS: M R Staph aureus DNA By PCR Negative (Negative); Probe Check PASS; Specimen Processing Control PASS
--- NOTE | 2017-12-17 13:42 | ED.RN ---
pt required multiple IV boluses of Ketamine for sedation. 3 vials pulled. 1300mg used prior to arrival of IV Drip. Medication given by MD. 200 mg of Ketamine wasted in RX destroyer. Witnessed by ANA Mireles. Unable to document in accudose. Pharmacy notified. Brie Orozco RN 12/16/17 Entered in Documentation 12/17/17 [id number]
[2017-12-17 13:49] LABS: Anion Gap 10 (5-15); BUN 9 mg/dL (7-18); BUN/Creat Ratio 20.2 RATIO (10-20); Calcium,Total 7.4 mg/dL (8.5-10.1); Chloride 116 mmol/L (98-107); Creatinine, Serum 0.44 mg/dL (0.55-1.02); EST Glomerular Filtration Rate 183 mL/min (>60); Est Glom Filt Rate - Afr Amer 221 mL/min (>60); Estimated Creatinine Clearance 184.56 ml/min; Glucose 93 mg/dL (74-106); Potassium 3.9 mmol/L (3.5-5.1); Sodium Level 146 mmol/L (136-145)
[2017-12-17 13:50] LABS: Magnesium 1.8 mg/dL (1.6-2.6)
[2017-12-17 14:12] LABS: Phosphorus 3.3 mg/dL (2.5-4.9)
[2017-12-17] MEDS: Vital AF 1.2 Cal Liquid 1,000 ML 20 ML GT (17:05)
[2017-12-17 18:54] LABS: Anion Gap 7 (5-15); BUN 11 mg/dL (7-18); BUN/Creat Ratio 21.5 RATIO (10-20); Calcium,Total 7.3 mg/dL (8.5-10.1); Chloride 118 mmol/L (98-107); Creatinine, Serum 0.51 mg/dL (0.55-1.02); EST Glomerular Filtration Rate 156 mL/min (>60); Est Glom Filt Rate - Afr Amer 189 mL/min (>60); Estimated Creatinine Clearance 125.94 ml/min; Glucose 100 mg/dL (74-106); Sodium Level 146 mmol/L (136-145)
[2017-12-17 18:55] LABS: Magnesium 2.9 mg/dL (1.6-2.6)
[2017-12-17] MEDS: Haloperidol Lactate 5 MG/ML Vial IV (19:52)
[2017-12-18] VITALS (38 sets, daily range): BP systolic 99–116; BP diastolic 56–82; PULSE 55–83; RESP 14–16; TEMP 35.8–37.6; O2SAT 96–100
[2017-12-18] MEDS: fentaNYL drip 100 ML 5 MCG IV ×4 (03:14→20:04)
[2017-12-18] MEDS: 0.9% Normal Saline 1,000 ML 150 ML IV (03:14)
[2017-12-18 04:41] LABS: Absolute Lymphocyte Count 0.92 X10^3/ul (0.83-4.51); Basophil# 0.03 X10^3/uL; Basophil% 0.1 % (0-1); Eosinophil# 0.01 X10^3/uL; Hematocrit 26.7 % (37-47); Hemoglobin 9.1 g/dl (12.0-15.0); Lymphocyte # 0.92 X10^3/ul (4.0); Lymphocyte % 4.1 % (19-41); Mean Corp Hgb Conc 34.1 g/gl (32-36); Mean Corpuscular Hgb 29.7 pg (27.0-32.0); Mean Corpuscular Volume 87.3 fL (81-99); Mean Platelet Vol. 10.4 fl (6.2-12.0); Monocyte# 0.38 X10^3/uL; Monocyte% 1.7 % (0-10); Neutrophil # 20.96 X10^3/uL (2.7-7.7); Neutrophil % 93.7 % (47-70); Platelet Count 278 K/mm3 (150-450); RBC Distribution Width CV 14.7 % (11.6-14.6); RBC Distribution Width SD 45.4 fl (35.1-43.9); Red Blood Count 3.06 M/mm3 (4.2-5.4); White Blood Count 22.4 K/mm3 (4.4-11.0)
[2017-12-18 04:42] LABS: Anion Gap 10 (5-15); BUN 17 mg/dL (7-18); BUN/Creat Ratio 40.7 RATIO (10-20); Calcium,Total 7.3 mg/dL (8.5-10.1); Chloride 118 mmol/L (98-107); Creatinine, Serum 0.42 mg/dL (0.55-1.02); EST Glomerular Filtration Rate 197 mL/min (>60); Est Glom Filt Rate - Afr Amer 238 mL/min (>60); Estimated Creatinine Clearance 152.92 ml/min; Glucose 117 mg/dL (74-106); Magnesium 2.4 mg/dL (1.6-2.6); Phosphorus 2.5 mg/dL (2.5-4.9); Potassium 4.3 mmol/L (3.5-5.1); Sodium Level 148 mmol/L (136-145)
[2017-12-18 04:43] LABS: Differential Indicated SCAN CRITERIA MET; POSITIVE COUNT NO; POSITIVE DIFFERENTIAL YES; POSITIVE MORPHOLOGY NO
[2017-12-18 05:13] LABS: Differential Comment SCANNED
[2017-12-18] MEDS: CHLORHEXIDINE GLUC 2% CLOTH 1 EACH TOWELETTE TOPICAL (05:16)
[2017-12-18] MEDS: Piperacil/Tazobactam 3.375 GM/50 ML ML IV (05:17)
[2017-12-18] MEDS: Propofol 10MG/Ml 1,000 MG/100 ML Bottle 1.26 MG CONT INF ×3 (05:17→19:10)
--- NOTE | 2017-12-18 05:58 | NURSING ---
Patient's RASS will fluctuate between RASS -2 to RASS +3, with patient thrashing in bed, sitting up, very restless and agitated.
--- NOTE | 2017-12-18 06:48 | PN_ITS ---
Subjective: The patient was seen and examined at the bedside this morning. Events from the last 24 hours have been reviewed. The patient is currently afebrile, hemodynamically stable and maintaining appropriate oxygen saturations with an FiO2 requirement of 30%. The patient was noted to be agitated yet again overnight, for which she was administered 1 dose of IV Haldol. This worked well to control her agitation. She failed her spontaneous breathing trial this morning due to agitation and increased respiratory rate. She is currently tolerating tube feeds without issue. The patient is currently overall net +5.2 L for the admission. Objective: The patient's most recent lab work, culture data and imaging studies have all been personally reviewed. Preliminary anaerobic blood culture dated December 16 revealed gram-negative rods. Repeat blood cultures are currently pending. Respiratory viral panel was positive for rhinovirus. CSF Gram stain revealed no organisms. Urine culture was positive for the presence of a gram-negative terence. General: - - Intubated, sedated and mechanically ventilated. HEENT: Atraumatic, PERRLA, Normocephalic Oral: No Gingival or Mucosal Lesions/ Ulcerations, - - Endotracheal and OG tubes remain in place. Neck: Supple, No Nodes, Trachea Midline, - - Subclavian central venous catheter in place Lungs: No rhonchi, No wheeze, No rales, Diminished Cardiovascular: Normal S1, Normal S2, No murmurs, Bradycardic Abdomen: Bowel Sounds Present, Soft, Non Tender, Non-Distended Extremities: No clubbing, No cyanosis, No edema Skin: - - No significant change from previous. Musculoskeletal: No Tenderness to Palpation of Joints or Extremities Lymphatic: No Cervical, Supraclavicular, or Inguinal Adenopathy Neurological: - - No focal neurological deficits. Currently sedated. However, will attempt to move extremities spontaneously. Vital Signs Temp Pulse Resp BP Pulse Ox 96.4 F L 63 14 105/73 100 12/18/17 06:00 12/18/17 06:00 12/18/17 06:00 12/18/17 06:00 12/18/17 06:00 Oxygen Delivery Method Mechanical Ventilator Weight: 108 lb 11.006 oz Body Mass Index (BMI) 16.7 Intake and Output for Last 24 Hours 12/16/17 12/17/17 12/18/17 23:59 23:59 23:59 Intake Total 1578 / 1578 4722 / 4722 2978.3 / 2978.3 Output Total 750 / 750 2500 / 2500 750 / 750 Balance 828 / 828 2222 / 2222 2228.3 / 2228.3 Labs (Last 48 Hours) 12/16/17 12/16/17 12/16/17 15:15 15:15 15:15 WBC 29.2 H RBC 4.30 Hgb 12.4 Hct 36.5 L MCV 84.9 MCH 28.8 MCHC 34.0 RDW 13.7 RDW Differential 42.3 Plt Count 293 MPV 10.1 Immature Gran % (Auto) 0.200 Neut % (Auto) 90.8 H Lymph % (Auto) 6.0 L Edmunds % (Auto) 2.9 Eos % (Auto) 0.0 Baso % (Auto) 0.1 Absolute Neuts (auto) 26.5 H Absolute Lymphs (auto) 1.75 Total Counted Not Reportable Differential Comment SCANNED PT Cancelled INR Cancelled APTT Cancelled Specimen Type Sample Site pH Bicarbonate Actual POC Total CO2 Base Excess O2 Saturation O2 % ABG pCO2 ABG pO2 Kevon Test Respiration Rate O2 Delivery Device Minute Volume Vent Mode Tidal Volume POC PEEP Blood Gas Notified Whom Blood Gas Notified Time Sodium 133 L Potassium 2.8 L Chloride 95 L Carbon Dioxide 25.0 Anion Gap 13 BUN 13 Creatinine 0.85 Estim Creat Clear Calc 67.67 Est GFR (MDRD) Af Amer 105 Est GFR (MDRD) Non-Af 87 BUN/Creatinine Ratio 15.3 Glucose 126 H Lactic Acid Calcium 9.0 Phosphorus Magnesium Total Bilirubin 1.10 H Direct Bilirubin AST 23 ALT 25 Alkaline Phosphatase 78 Total Creatine Kinase Total Protein 8.0 Albumin 3.0 L Globulin 5.0 H Albumin/Globulin Ratio 0.6 L Triglycerides Serum , Qual Urine Color Urine Clarity Urine pH Ur Specific Bradford Urine Protein Urine Glucose (UA) Urine Ketones Urine Occult Blood Urine Nitrite Urine Bilirubin Urine Urobilinogen Ur Leukocyte Esterase Urine RBC Urine WBC Ur Squamous Epith Cells Urine Bacteria Urine Mucus Urine Trichomonas Fld Polynuclear WBCs # Fld Polynuclear WBCs % Fluid Mononuclear WBCs Fld Mononuclear WBCs % CSF Appearance CSF Color CSF WBC CSF RBC CSF Cell Count Tube # CSF Total Cell Counted CSF Comment CSF Glucose CSF Total Protein Urine Opiates Screen Urine Methadone Screen Ur Barbiturates Screen Ur Phencyclidine Scrn Ur Amphetamines Screen U Methamphetamin-MDMA U Benzodiazepines Scrn Urine Cocaine Screen U Cannabinoids Screen Ur Drug Screen Comment Hep Bs Antigen Hep Bs Antibody Hep B Core Total Ab Hepatitis C Ab (EIA) Herpes Simplex Culture HSV I DNA PCR HSV II DNA PCR HSV Final Result HIV 1&2 Antibody MRSA (PCR) 12/16/17 12/16/17 12/16/17 15:15 16:20 16:20 WBC RBC Hgb Hct MCV MCH MCHC RDW RDW Differential Plt Count MPV Immature Gran % (Auto) Neut % (Auto) Lymph % (Auto) Edmunds % (Auto) Eos % (Auto) Baso % (Auto) Absolute Neuts (auto) Absolute Lymphs (auto) Total Counted Differential Comment PT Cancelled INR Cancelled APTT Cancelled Specimen Type Sample Site pH Bicarbonate Actual POC Total CO2 Base Excess O2 Saturation O2 % ABG pCO2 ABG pO2 Kevon Test Respiration Rate O2 Delivery Device Minute Volume Vent Mode Tidal Volume POC PEEP Blood Gas Notified Whom Blood Gas Notified Time Sodium Potassium Chloride Carbon Dioxide Anion Gap BUN Creatinine Estim Creat Clear Calc Est GFR (MDRD) Af Amer Est GFR (MDRD) Non-Af BUN/Creatinine Ratio Glucose Lactic Acid 2.7 H Calcium Phosphorus Magnesium Total Bilirubin Direct Bilirubin AST ALT Alkaline Phosphatase Total Creatine Kinase Total Protein Albumin Globulin Albumin/Globulin Ratio Triglycerides Serum , Qual NEGATIVE Urine Color Urine Clarity Urine pH Ur Specific [place] Urine Protein Urine Glucose (UA) Urine Ketones Urine Occult Blood Urine Nitrite Urine Bilirubin Urine Urobilinogen Ur Leukocyte Esterase Urine RBC Urine WBC Ur Squamous Epith Cells Urine Bacteria Urine Mucus Urine Trichomonas Fld Polynuclear WBCs # Fld Polynuclear WBCs % Fluid Mononuclear WBCs Fld Mononuclear WBCs % CSF Appearance CSF Color CSF WBC CSF RBC CSF Cell Count Tube # CSF Total Cell Counted CSF Comment CSF Glucose CSF Total Protein Urine Opiates Screen Urine Methadone Screen Ur Barbiturates Screen Ur Phencyclidine Scrn Ur Amphetamines Screen U Methamphetamin-MDMA U Benzodiazepines Scrn Urine Cocaine Screen U Cannabinoids Screen Ur Drug Screen Comment Hep Bs Antigen Hep Bs Antibody Hep B Core Total Ab Hepatitis C Ab (EIA) Herpes Simplex Culture HSV I DNA PCR HSV II DNA PCR HSV Final Result HIV 1&2 Antibody MRSA (PCR) 12/16/17 12/16/17 12/16/17 16:20 16:20 16:22 WBC RBC Hgb Hct MCV MCH MCHC RDW RDW Differential Plt Count MPV Immature Gran % (Auto) Neut % (Auto) Lymph % (Auto) Edmunds % (Auto) Eos % (Auto) Baso % (Auto) Absolute Neuts (auto) Absolute Lymphs (auto) Total Counted Differential Comment PT INR APTT Specimen Type ART Sample Site R Radial pH 7.41 Bicarbonate Actual 23.6 POC Total CO2 25 Base Excess -1 O2 Saturation 100 H O2 % 50 ABG pCO2 37.3 ABG pO2 232 H Kevon Test POS Respiration Rate 14 O2 Delivery Device Vent Minute Volume 9.00 Vent Mode A-C Tidal Volume 400 POC PEEP 5 Blood Gas Notified Whom ED Blood Gas Notified Time 1621 Sodium Potassium Chloride Carbon Dioxide Anion Gap BUN Creatinine Estim Creat Clear Calc Est GFR (MDRD) Af Amer Est GFR (MDRD) Non-Af BUN/Creatinine Ratio Glucose Lactic Acid Calcium Phosphorus Magnesium Total Bilirubin Direct Bilirubin AST ALT Alkaline Phosphatase Total Creatine Kinase Total Protein Albumin Globulin Albumin/Globulin Ratio Triglycerides Serum , Qual Urine Color Urine Clarity Urine pH Ur Specific [place] Urine Protein Urine Glucose (UA) Urine Ketones Urine Occult Blood Urine Nitrite Urine Bilirubin Urine Urobilinogen Ur Leukocyte Esterase Urine RBC Urine WBC Ur Squamous Epith Cells Urine Bacteria Urine Mucus Urine Trichomonas Fld Polynuclear WBCs # Fld Polynuclear WBCs % Fluid Mononuclear WBCs Fld Mononuclear WBCs % CSF Appearance CSF Color CSF WBC CSF RBC CSF Cell Count Tube # CSF Total Cell Counted CSF Comment CSF Glucose CSF Total Protein Urine Opiates Screen Urine Methadone Screen Ur Barbiturates Screen Ur Phencyclidine Scrn Ur Amphetamines Screen U Methamphetamin-MDMA U Benzodiazepines Scrn Urine Cocaine Screen U Cannabinoids Screen Ur Drug Screen Comment Hep Bs Antigen Pending Hep Bs Antibody Pending Hep B Core Total Ab Pending Hepatitis C Ab (EIA) Pending Herpes Simplex Culture Pending HSV I DNA PCR Pending HSV II DNA PCR Pending HSV Final Result Pending HIV 1&2 Antibody Non-Reactive MRSA (PCR) 12/16/17 12/16/17 12/16/17 16:23 16:23 17:50 WBC RBC Hgb Hct MCV MCH MCHC RDW RDW Differential Plt Count MPV Immature Gran % (Auto) Neut % (Auto) Lymph % (Auto) Edmunds % (Auto) Eos % (Auto) Baso % (Auto) Absolute Neuts (auto) Absolute Lymphs (auto) Total Counted Differential Comment PT 17.5 H INR 1.4 APTT 43.3 H Specimen Type Sample Site pH Bicarbonate Actual POC Total CO2 Base Excess O2 Saturation O2 % ABG pCO2 ABG pO2 Kevon Test Respiration Rate O2 Delivery Device Minute Volume Vent Mode Tidal Volume POC PEEP Blood Gas Notified Whom Blood Gas Notified Time Sodium Potassium Chloride Carbon Dioxide Anion Gap BUN Creatinine Estim Creat Clear Calc Est GFR (MDRD) Af Amer Est GFR (MDRD) Non-Af BUN/Creatinine Ratio Glucose Lactic Acid Calcium Phosphorus Magnesium Total Bilirubin Direct Bilirubin AST ALT Alkaline Phosphatase Total Creatine Kinase Total Protein Albumin Globulin Albumin/Globulin Ratio Triglycerides Serum , Qual Urine Color Yellow Urine Clarity Sl. Cloudy Urine pH 6.0 Ur Specific Bradford 1.010 Urine Protein 100 H Urine Glucose (UA) Normal Urine Ketones 150 H Urine Occult Blood 25 H Urine Nitrite Positive H Urine Bilirubin Negative Urine Urobilinogen Normal Ur Leukocyte Esterase 500 H Urine RBC 0-5 SEEN Urine WBC 10-25 SEEN Ur Squamous Epith Cells 0-5 SEEN Urine Bacteria 1+ Urine Mucus 0 SEEN Urine Trichomonas 0-5 SEEN Fld Polynuclear WBCs # Fld Polynuclear WBCs % Fluid Mononuclear WBCs Fld Mononuclear WBCs % CSF Appearance CSF Color CSF WBC CSF RBC CSF Cell Count Tube # CSF Total Cell Counted CSF Comment CSF Glucose CSF Total Protein Urine Opiates Screen POSITIVE H Urine Methadone Screen NEGATIVE Ur Barbiturates Screen NEGATIVE Ur Phencyclidine Scrn NEGATIVE Ur Amphetamines Screen POSITIVE H U Methamphetamin-MDMA NEGATIVE U Benzodiazepines Scrn NEGATIVE Urine Cocaine Screen NEGATIVE U Cannabinoids Screen NEGATIVE Ur Drug Screen Comment Hep Bs Antigen Hep Bs Antibody Hep B Core Total Ab Hepatitis C Ab (EIA) Herpes Simplex Culture HSV I DNA PCR HSV II DNA PCR HSV Final Result HIV 1&2 Antibody MRSA (PCR) 12/16/17 12/16/17 12/16/17 18:40 18:40 18:40 WBC RBC Hgb Hct MCV MCH MCHC RDW RDW Differential Plt Count MPV Immature Gran % (Auto) Neut % (Auto) Lymph % (Auto) Edmunds % (Auto) Eos % (Auto) Baso % (Auto) Absolute Neuts (auto) Absolute Lymphs (auto) Total Counted Differential Comment PT INR APTT Specimen Type Sample Site pH Bicarbonate Actual POC Total CO2 Base Excess O2 Saturation O2 % ABG pCO2 ABG pO2 Kevon Test Respiration Rate O2 Delivery Device Minute Volume Vent Mode Tidal Volume POC PEEP Blood Gas Notified Whom Blood Gas Notified Time Sodium Potassium Chloride Carbon Dioxide Anion Gap BUN Creatinine Estim Creat Clear Calc Est GFR (MDRD) Af Amer Est GFR (MDRD) Non-Af BUN/Creatinine Ratio Glucose Lactic Acid Calcium Phosphorus Magnesium Total Bilirubin Direct Bilirubin AST ALT Alkaline Phosphatase Total Creatine Kinase Total Protein Albumin Globulin Albumin/Globulin Ratio Triglycerides Serum , Qual Urine Color Urine Clarity Urine pH Ur Specific [place] Urine Protein Urine Glucose (UA) Urine Ketones Urine Occult Blood Urine Nitrite Urine Bilirubin Urine Urobilinogen Ur Leukocyte Esterase Urine RBC Urine WBC Ur Squamous Epith Cells Urine Bacteria Urine Mucus Urine Trichomonas Fld Polynuclear WBCs # 0.000 Fld Polynuclear WBCs % 0.0 Fluid Mononuclear WBCs 0.001 Fld Mononuclear WBCs % 100.0 CSF Appearance CLEAR CSF Color COLORLESS CSF WBC 0.001 H CSF RBC 0 CSF Cell Count Tube # 4 CSF Total Cell Counted 0.001 H CSF Comment May follow CSF Glucose 70 CSF Total Protein 23.0 Urine Opiates Screen Urine Methadone Screen Ur Barbiturates Screen Ur Phencyclidine Scrn Ur Amphetamines Screen U Methamphetamin-MDMA U Benzodiazepines Scrn Urine Cocaine Screen U Cannabinoids Screen Ur Drug Screen Comment Hep Bs Antigen Hep Bs Antibody Hep B Core Total Ab Hepatitis C Ab (EIA) Herpes Simplex Culture HSV I DNA PCR HSV II DNA PCR HSV Final Result HIV 1&2 Antibody MRSA (PCR) 12/16/17 12/16/17 12/16/17 20:23 21:36 21:45 WBC RBC Hgb Hct MCV MCH MCHC RDW RDW Differential Plt Count MPV Immature Gran % (Auto) Neut % (Auto) Lymph % (Auto) Edmunds % (Auto) Eos % (Auto) Baso % (Auto) Absolute Neuts (auto) Absolute Lymphs (auto) Total Counted Differential Comment PT INR APTT Specimen Type Sample Site pH Bicarbonate Actual POC Total CO2 Base Excess O2 Saturation O2 % ABG pCO2 ABG pO2 Kevon Test Respiration Rate O2 Delivery Device Minute Volume Vent Mode Tidal Volume POC PEEP Blood Gas Notified Whom Blood Gas Notified Time Sodium Potassium Chloride Carbon Dioxide Anion Gap BUN Creatinine Estim Creat Clear Calc Est GFR (MDRD) Af Amer Est GFR (MDRD) Non-Af BUN/Creatinine Ratio Glucose Lactic Acid 1.2 1.0 Calcium Phosphorus Magnesium Total Bilirubin Direct Bilirubin AST ALT Alkaline Phosphatase Total Creatine Kinase 124 Total Protein Albumin Globulin Albumin/Globulin Ratio Triglycerides 79 Serum , Qual Urine Color Urine Clarity Urine pH Ur Specific [place] Urine Protein Urine Glucose (UA) Urine Ketones Urine Occult Blood Urine Nitrite Urine Bilirubin Urine Urobilinogen Ur Leukocyte Esterase Urine RBC Urine WBC Ur Squamous Epith Cells Urine Bacteria Urine Mucus Urine Trichomonas Fld Polynuclear WBCs # Fld Polynuclear WBCs % Fluid Mononuclear WBCs Fld Mononuclear WBCs % CSF Appearance CSF Color CSF WBC CSF RBC CSF Cell Count Tube # CSF Total Cell Counted CSF Comment CSF Glucose CSF Total Protein Urine Opiates Screen Urine Methadone Screen Ur Barbiturates Screen Ur Phencyclidine Scrn Ur Amphetamines Screen U Methamphetamin-MDMA U Benzodiazepines Scrn Urine Cocaine Screen U Cannabinoids Screen Ur Drug Screen Comment Hep Bs Antigen Hep Bs Antibody Hep B Core Total Ab Hepatitis C Ab (EIA) Herpes Simplex Culture HSV I DNA PCR HSV II DNA PCR HSV Final Result HIV 1&2 Antibody MRSA (PCR) 12/17/17 12/17/17 12/17/17 04:35 04:35 04:35 WBC 20.6 H RBC 3.13 L Hgb 9.1 L Hct 26.7 L MCV 85.3 MCH 29.1 MCHC 34.1 RDW 14.1 RDW Differential 44.1 H Plt Count 193 MPV 9.5 Immature Gran % (Auto) Neut % (Auto) Lymph % (Auto) Edmunds % (Auto) Eos % (Auto) Baso % (Auto) Absolute Neuts (auto) Absolute Lymphs (auto) Total Counted Differential Comment PT INR APTT Specimen Type Sample Site pH Bicarbonate Actual POC Total CO2 Base Excess O2 Saturation O2 % ABG pCO2 ABG pO2 Kevon Test Respiration Rate O2 Delivery Device Minute Volume Vent Mode Tidal Volume POC PEEP Blood Gas Notified Whom Blood Gas Notified Time Sodium 144 Potassium 3.2 L Chloride 110 H Carbon Dioxide 23.0 Anion Gap 11 BUN 9 Creatinine 0.53 L Estim Creat Clear Calc 121.70 Est GFR (MDRD) Af Amer 180 Est GFR (MDRD) Non-Af 149 BUN/Creatinine Ratio 16.9 Glucose 82 Lactic Acid Calcium 6.7 L Phosphorus 2.1 L Magnesium 1.7 Total Bilirubin 0.40 Direct Bilirubin 0.21 AST 19 ALT 19 Alkaline Phosphatase 58 Total Creatine Kinase Total Protein 5.4 L Albumin 1.9 L Globulin 3.5 Albumin/Globulin Ratio Triglycerides Serum , Qual Urine Color Urine Clarity Urine pH Ur Specific [place] Urine Protein Urine Glucose (UA) Urine Ketones Urine Occult Blood Urine Nitrite Urine Bilirubin Urine Urobilinogen Ur Leukocyte Esterase Urine RBC Urine WBC Ur Squamous Epith Cells Urine Bacteria Urine Mucus Urine Trichomonas Fld Polynuclear WBCs # Fld Polynuclear WBCs % Fluid Mononuclear WBCs Fld Mononuclear WBCs % CSF Appearance CSF Color CSF WBC CSF RBC CSF Cell Count Tube # CSF Total Cell Counted CSF Comment CSF Glucose CSF Total Protein Urine Opiates Screen Urine Methadone Screen Ur Barbiturates Screen Ur Phencyclidine Scrn Ur Amphetamines Screen U Methamphetamin-MDMA U Benzodiazepines Scrn Urine Cocaine Screen U Cannabinoids Screen Ur Drug Screen Comment Hep Bs Antigen Hep Bs Antibody Hep B Core Total Ab Hepatitis C Ab (EIA) Herpes Simplex Culture HSV I DNA PCR HSV II DNA PCR HSV Final Result HIV 1&2 Antibody MRSA (PCR) 12/17/17 12/17/17 12/17/17 08:30 13:00 13:00 WBC RBC Hgb Hct MCV MCH MCHC RDW RDW Differential Plt Count MPV Immature Gran % (Auto) Neut % (Auto) Lymph % (Auto) Edmunds % (Auto) Eos % (Auto) Baso % (Auto) Absolute Neuts (auto) Absolute Lymphs (auto) Total Counted Differential Comment PT INR APTT Specimen Type Sample Site pH Bicarbonate Actual POC Total CO2 Base Excess O2 Saturation O2 % ABG pCO2 ABG pO2 Kevon Test Respiration Rate O2 Delivery Device Minute Volume Vent Mode Tidal Volume POC PEEP Blood Gas Notified Whom Blood Gas Notified Time Sodium 146 H Potassium 3.9 Chloride 116 H Carbon Dioxide 20.0 L Anion Gap 10 BUN 9 Creatinine 0.44 L Estim Creat Clear Calc 184.56 Est GFR (MDRD) Af Amer 221 Est GFR (MDRD) Non-Af 183 BUN/Creatinine Ratio 20.2 H Glucose 93 Lactic Acid Calcium 7.4 L Phosphorus Magnesium 1.8 Total Bilirubin Direct Bilirubin AST ALT Alkaline Phosphatase Total Creatine Kinase Total Protein Albumin Globulin Albumin/Globulin Ratio Triglycerides Serum , Qual Urine Color Urine Clarity Urine pH Ur Specific [place] Urine Protein Urine Glucose (UA) Urine Ketones Urine Occult Blood Urine Nitrite Urine Bilirubin Urine Urobilinogen Ur Leukocyte Esterase Urine RBC Urine WBC Ur Squamous Epith Cells Urine Bacteria Urine Mucus Urine Trichomonas Fld Polynuclear WBCs # Fld Polynuclear WBCs % Fluid Mononuclear WBCs Fld Mononuclear WBCs % CSF Appearance CSF Color CSF WBC CSF RBC CSF Cell Count Tube # CSF Total Cell Counted CSF Comment CSF Glucose CSF Total Protein Urine Opiates Screen Urine Methadone Screen Ur Barbiturates Screen Ur Phencyclidine Scrn Ur Amphetamines Screen U Methamphetamin-MDMA U Benzodiazepines Scrn Urine Cocaine Screen U Cannabinoids Screen Ur Drug Screen Comment Hep Bs Antigen Hep Bs Antibody Hep B Core Total Ab Hepatitis C Ab (EIA) Herpes Simplex Culture HSV I DNA PCR HSV II DNA PCR HSV Final Result HIV 1&2 Antibody MRSA (PCR) Negative 12/17/17 12/17/17 12/17/17 13:00 18:30 18:30 WBC RBC Hgb Hct MCV MCH MCHC RDW RDW Differential Plt Count MPV Immature Gran % (Auto) Neut % (Auto) Lymph % (Auto) Edmunds % (Auto) Eos % (Auto) Baso % (Auto) Absolute Neuts (auto) Absolute Lymphs (auto) Total Counted Differential Comment PT INR APTT Specimen Type Sample Site pH Bicarbonate Actual POC Total CO2 Base Excess O2 Saturation O2 % ABG pCO2 ABG pO2 Kevon Test Respiration Rate O2 Delivery Device Minute Volume Vent Mode Tidal Volume POC PEEP Blood Gas Notified Whom Blood Gas Notified Time Sodium 146 H Potassium 5.0 Chloride 118 H Carbon Dioxide 21.0 Anion Gap 7 BUN 11 Creatinine 0.51 L Estim Creat Clear Calc 125.94 Est GFR (MDRD) Af Amer 189 Est GFR (MDRD) Non-Af 156 BUN/Creatinine Ratio 21.5 H Glucose 100 Lactic Acid Calcium 7.3 L Phosphorus 3.3 Magnesium 2.9 H Total Bilirubin Direct Bilirubin AST ALT Alkaline Phosphatase Total Creatine Kinase Total Protein Albumin Globulin Albumin/Globulin Ratio Triglycerides Serum , Qual Urine Color Urine Clarity Urine pH Ur Specific [place] Urine Protein Urine Glucose (UA) Urine Ketones Urine Occult Blood Urine Nitrite Urine Bilirubin Urine Urobilinogen Ur Leukocyte Esterase Urine RBC Urine WBC Ur Squamous Epith Cells Urine Bacteria Urine Mucus Urine Trichomonas Fld Polynuclear WBCs # Fld Polynuclear WBCs % Fluid Mononuclear WBCs Fld Mononuclear WBCs % CSF Appearance CSF Color CSF WBC CSF RBC CSF Cell Count Tube # CSF Total Cell Counted CSF Comment CSF Glucose CSF Total Protein Urine Opiates Screen Urine Methadone Screen Ur Barbiturates Screen Ur Phencyclidine Scrn Ur Amphetamines Screen U Methamphetamin-MDMA U Benzodiazepines Scrn Urine Cocaine Screen U Cannabinoids Screen Ur Drug Screen Comment Hep Bs Antigen Hep Bs Antibody Hep B Core Total Ab Hepatitis C Ab (EIA) Herpes Simplex Culture HSV I DNA PCR HSV II DNA PCR HSV Final Result HIV 1&2 Antibody MRSA (PCR) 12/18/17 12/18/17 04:05 04:05 WBC 22.4 H RBC 3.06 L Hgb 9.1 L Hct 26.7 L MCV 87.3 MCH 29.7 MCHC 34.1 RDW 14.7 H RDW Differential 45.4 H Plt Count 278 MPV 10.4 Immature Gran % (Auto) 0.400 Neut % (Auto) 93.7 H Lymph % (Auto) 4.1 L Edmunds % (Auto) 1.7 Eos % (Auto) 0.0 Baso % (Auto) 0.1 Absolute Neuts (auto) 21.0 H Absolute Lymphs (auto) 0.92 Total Counted Not Reportable Differential Comment SCANNED PT INR APTT Specimen Type Sample Site pH Bicarbonate Actual POC Total CO2 Base Excess O2 Saturation O2 % ABG pCO2 ABG pO2 Kevon Test Respiration Rate O2 Delivery Device Minute Volume Vent Mode Tidal Volume POC PEEP Blood Gas Notified Whom Blood Gas Notified Time Sodium 148 H Potassium 4.3 Chloride 118 H Carbon Dioxide 20.0 L Anion Gap 10 BUN 17 Creatinine 0.42 L Estim Creat Clear Calc 152.92 Est GFR (MDRD) Af Amer 238 Est GFR (MDRD) Non-Af 197 BUN/Creatinine Ratio 40.7 H Glucose 117 H Lactic Acid Calcium 7.3 L Phosphorus 2.5 Magnesium 2.4 Total Bilirubin Direct Bilirubin AST ALT Alkaline Phosphatase Total Creatine Kinase Total Protein Albumin Globulin Albumin/Globulin Ratio Triglycerides Serum , Qual Urine Color Urine Clarity Urine pH Ur Specific [place] Urine Protein Urine Glucose (UA) Urine Ketones Urine Occult Blood Urine Nitrite Urine Bilirubin Urine Urobilinogen Ur Leukocyte Esterase Urine RBC Urine WBC Ur Squamous Epith Cells Urine Bacteria Urine Mucus Urine Trichomonas Fld Polynuclear WBCs # Fld Polynuclear WBCs % Fluid Mononuclear WBCs Fld Mononuclear WBCs % CSF Appearance CSF Color CSF WBC CSF RBC CSF Cell Count Tube # CSF Total Cell Counted CSF Comment CSF Glucose CSF Total Protein Urine Opiates Screen Urine Methadone Screen Ur Barbiturates Screen Ur Phencyclidine Scrn Ur Amphetamines Screen U Methamphetamin-MDMA U Benzodiazepines Scrn Urine Cocaine Screen U Cannabinoids Screen Ur Drug Screen Comment Hep Bs Antigen Hep Bs Antibody Hep B Core Total Ab Hepatitis C Ab (EIA) Herpes Simplex Culture HSV I DNA PCR HSV II DNA PCR HSV Final Result HIV 1&2 Antibody MRSA (PCR) Microbiology 12/16/17 18:40 Csf, Spinal Fluid Gram Stain - Final 12/16/17 18:40 Csf, Spinal Fluid CSF Culture - Preliminary No growth in 24 hours. Final to follow. 12/17/17 06:50 Mucosa - Nose Respiratory Panel (PCR) - Final Rhinovirus 12/16/17 16:23 Urine Catheter - Catheter Urine Culture - Preliminary Gram negative terence 12/16/17 16:33 Blood Culture (Wb) - Right Forearm Blood Culture - Preliminary Clinical Impression(s) from Imaging Studies Chest X-Ray 12/16/17 15:02 IMPRESSION: Normal x-ray examination of the chest. Electronically Signed: Leslie Orozco MD at 15:27 EDT Tel , Service support , Brain CT 12/16/17 15:48 IMPRESSION: No acute intracranial abnormality. Electronically Signed: Shad Slade, at 17:21 EDT Tel , Service support , Chest X-Ray 12/16/17 16:00 IMPRESSION: Satisfactory position of the support lines and tubes. No acute thoracic pathology. Electronically Signed: Shad Slade, at 16:29 EDT Tel , Service support , Chest X-Ray 12/16/17 17:50 IMPRESSION: Satisfactory position of the support lines and tubes. No acute thoracic pathology. Electronically Signed: Shad Slade, at 18:56 EDT Tel , Service support , Medical Necessity - Tobacco Use Smoking Status: Current every day smoker Assessment/Plan All Active Problems Severe sepsis (Acute) UTI (urinary tract infection) (Acute) Toxic encephalopathy (Acute) Opiate withdrawal (Acute) Overdose (Resolved) RECOMMENDATIONS: 1. Continue antibiotics 2. Continue as needed aerosol treatments 3. Continue propofol and fentanyl for sedation. 4. Continue Lovenox and Protonix for ICU prophylaxis 5. Continue tube feeds as ordered. 6. Discontinue acyclovir and dexamethasone. 7. Consider starting scheduled Seroquel twice daily. IMPRESSIONS: 1. Acute respiratory failure The patient was initially intubated in the emergency department due to agitation. No acute underlying pulmonary infectious process was identified on chest imaging studies. Her ventilator requirements are minimal. Continue propofol and fentanyl for sedation. Her significant agitation will be a barrier to successful liberation from mechanical ventilation. She will be continued on propofol and fentanyl for now. We will also plan to add scheduled Seroquel to her regimen. Plan for daily paired spontaneous awakening and breathing trials. Continue tube feeds as ordered. 2. Severe sepsis secondary to E. coli cystitis and bacteremia Antibiotics can be de-escalated at this time. She remains hemodynamically stable. Repeat blood cultures are currently pending. 3. Encephalopathy Likely multifactorial in etiology with underlying infectious process, substance abuse and mental health disorder contributing. Anticipate slow improvement as the patient's infectious process is treated. She will be continued on propofol and fentanyl for sedation. 4. History of polysubstance abuse/unspecified mental health disorder Complicates care, management, recovery and prognosis. Will ask social work/case management to assist. These issues will need to be addressed further once the patient has been successfully extubated. TIME: 38 minutes of critical care time, independent of procedures, was spent addressing the patient's acute respiratory failure, severe sepsis, encephalopathy, review of all data and collaboration with the care team. (0700- 0800) Code Visit [id number]: [id number] Critical care first hour
--- NOTE | 2017-12-18 07:25 | PCM.PN.HOSP ---
Patient Problems: Active and Suspected Problems Severe sepsis (Acute) UTI (urinary tract infection) (Acute) Toxic encephalopathy (Acute) Subjective: Patient is a 22-year-old lady with history of polysubstance abuse who presented with altered mental status, paranoid delusions and agitation. An assessment of severe sepsis secondary to cystitis was made. Patient had to be intubated as a result of agitation Patient seen remains sedated on the vent blood cultures so far positive for gram-negative rods. She was also positive for rhinovirus Objective: GENERAL: Sedated on the vent HEENT: Atraumatic; EYES; Anicteric, Normal Conjunctiva NECK; supple, normal thyroid, no distended JVD. RESPIRATORY: Diminished to auscultation bilaterally, CARDIOVASCULAR: Regular S1 S2, no audible murmurs GI: soft, non-tender, normoactive bowel sounds, : No Renal angle tenderness; EXTREMITIES: No edema, no clubbing, no cyanosis. MUSCULOSKELTAL: No Joint Tenderness; no muscle waisting NEURO: Sedated on the vent SKIN: No Rash PSYCH;Sedated on the vent Vitals/I&O's: Vital Signs Temp Pulse Resp BP Pulse Ox 96.4 F L 55 L 14 108/76 100 12/18/17 07:00 12/18/17 07:00 12/18/17 07:00 12/18/17 07:00 12/18/17 07:00 Oxygen Delivery Method Mechanical Ventilator Weight: 49.3 kg Body Mass Index (BMI) 16.7 Intake and Output for Last 24 Hours 12/16/17 12/17/17 12/18/17 23:59 23:59 23:59 Intake Total 1578 / 1578 4722 / 4722 2978.3 / 2978.3 Output Total 750 / 750 2500 / 2500 750 / 750 Balance 828 / 828 2222 / 2222 2228.3 / 2228.3 Microbiology Past 72 Hours 12/16/17 18:40 Csf, Spinal Fluid Gram Stain - Final 12/16/17 18:40 Csf, Spinal Fluid CSF Culture - Preliminary No growth in 24 hours. Final to follow. 12/17/17 06:50 Mucosa - Nose Respiratory Panel (PCR) - Final Rhinovirus 12/16/17 16:23 Urine Catheter - Catheter Urine Culture - Preliminary Gram negative terence 12/16/17 16:33 Blood Culture (Wb) - Right Forearm Blood Culture - Preliminary Laboratory Results 12/17/17 08:30: MRSA (PCR) Negative 12/17/17 13:00: Sodium 146 H, Potassium 3.9, Chloride 116 H, Carbon Dioxide 20.0 L, Anion Gap 10, BUN 9, Creatinine 0.44 L, Estim Creat Clear Calc 184.56, Est GFR (MDRD) Af Amer 221, Est GFR (MDRD) Non-Af 183, BUN/Creatinine Ratio 20.2 H, Glucose 93, Calcium 7.4 L 12/17/17 13:00: Magnesium 1.8 12/17/17 13:00: Phosphorus 3.3 12/17/17 18:30: Sodium 146 H, Potassium 5.0, Chloride 118 H, Carbon Dioxide 21.0, Anion Gap 7, BUN 11, Creatinine 0.51 L, Estim Creat Clear Calc 125.94, Est GFR (MDRD) Af Amer 189, Est GFR (MDRD) Non-Af 156, BUN/Creatinine Ratio 21.5 H, Glucose 100, Calcium 7.3 L 12/17/17 18:30: Magnesium 2.9 H 12/18/17 04:05: Sodium 148 H, Potassium 4.3, Chloride 118 H, Carbon Dioxide 20.0 L, Anion Gap 10, BUN 17, Creatinine 0.42 L, Estim Creat Clear Calc 152.92, Est GFR (MDRD) Af Amer 238, Est GFR (MDRD) Non-Af 197, BUN/Creatinine Ratio 40.7 H, Glucose 117 H, Calcium 7.3 L, Phosphorus 2.5, Magnesium 2.4 12/18/17 04:05: WBC 22.4 H, RBC 3.06 L, Hgb 9.1 L, Hct 26.7 L, MCV 87.3, MCH 29.7, MCHC 34.1, RDW 14.7 H, RDW Differential 45.4 H, Plt Count 278, MPV 10.4, Immature Gran % (Auto) 0.400, Neut % (Auto) 93.7 H, Lymph % (Auto) 4.1 L, Cochran % (Auto) 1.7, Eos % (Auto) 0.0, Baso % (Auto) 0.1, Absolute Neuts (auto) 21.0 H, Absolute Lymphs (auto) 0.92, Total Counted Not Reportable, Differential Comment SCANNED Current Medications Acetaminophen (Tylenol Liquid) 650 mg GT Q6H PRN PRN PRN Reason: FEVER Last Admin: 12/16/17 23:03 Dose: 650 mg Acyclovir (Zovirax) 400 mg NG BID [facility] Last Admin: 12/17/17 21:24 Dose: 400 mg Albuterol Sulfate (Ventolin Aerosols) 2.5 mg INHALATION Q2H PRN PRN PRN Reason: SHORTNESS OF BREATH Chlorhexidine Gluconate () 15 ml PO BID [facility] Last Admin: 12/17/17 21:25 Dose: 15 ml Chlorhexidine Gluconate () 1 each TOPICAL DAILY [facility] Last Admin: 12/18/17 05:16 Dose: 1 each Dexamethasone Sodium Phosphate (Decadron) 6 mg IV Q6 [facility] Stop: 12/20/17 18:01 Last Admin: 12/18/17 05:16 Dose: 6 mg Enoxaparin Sodium (Lovenox) 40 mg SC DAILY@1000 [facility] Last Admin: 12/17/17 10:15 Dose: 40 mg Sodium Chloride () 1,000 mls @ 150 mls/hr IV .Q6H40M [facility] Last Admin: 12/18/17 03:14 Dose: 150 mls/hr Fentanyl () 100 mls @ 5 mls/hr IV .Q20H [facility] Last Admin: 12/18/17 03:14 Dose: 5 mls/hr Propofol (Diprivan) 1,000 mg in 100 mls @ 1.26 mls/hr CONT INF .Q12H [facility]; Protocol Last Admin: 12/18/17 05:17 Dose: 1.26 mls/hr Sodium Chloride () 250 mls @ 15 mls/hr IV .[id number] PRN PRN Reason: SALINE FLUSH Last Admin: 12/17/17 07:34 Dose: 15 mls/hr Pantoprazole Sodium 40 mg/ (Sodium Chloride) 110 mls @ 330 mls/hr IV Q24 [facility] Last Admin: 12/17/17 04:28 Dose: 330 mls/hr Piperacillin Sod/Tazobactam Sod (Zosyn) 3.375 gm in 50 mls @ 12.5 mls/hr IV Q8 [facility] Last Admin: 12/18/17 05:17 Dose: 12.5 mls/hr Enteral Nutritional Formula (Vital Af 1.2 Tony Liquid) 1,000 mls @ 20 mls/hr GT .Q48H [facility]; Protocol Last Admin: 12/17/17 17:05 Dose: 20 mls/hr Sodium Phosphate 30 mm/ Sodium (Chloride) 260 mls @ 62.5 mls/hr IV X1 ONE Stop: 12/18/17 09:01 Last Admin: 12/18/17 05:17 Dose: 62.5 mls/hr Magnesium Hydroxide (Milk Of Magnesia) 30 ml PO DAILY PRN PRN PRN Reason: Constipation Sodium Chloride () 5 - 30 ml IV UD PRN PRN Reason: SALINE FLUSH Last Admin: 12/17/17 19:52 Dose: 10 ml Sodium Chloride () 10 - 40 ml IV UD PRN PRN Reason: MULTILUMEN/HICMAN CATH FLUSH Last Admin: 12/17/17 02:07 Dose: 40 ml Medical Necessity - Tobacco Use Smoking Status: Current every day smoker Assessment/Plan All Active Problems Severe sepsis (Acute) UTI (urinary tract infection) (Acute) Toxic encephalopathy (Acute) Opiate withdrawal (Acute) Overdose (Resolved) Patient is a 22-year-old lady with history of polysubstance abuse who presented with altered mental status, paranoid delusions and agitation. An assessment of severe sepsis secondary to cystitis was made. Patient had to be intubated as a result of agitation 1. Severe sepsis with gram-negative bacteremia from UTI. Patient was initially managed with vancomycin and ceftriaxone discontinued after meningitis was ruled out subsequently started on Zosyn 2. Acute hypoxic respiratory failure following patient severe sepsis and agitation had to be electively vent vent management deferred to pulmonary/critical care 3. Acute cystitis cultures pending on Zosyn 4. Toxic encephalopathy secondary to polysubstance use including opiates and amphetamines 5. Hypernatremia: Adjusted patient IV fluids 6. Hypokalemia corrected per protocol 7. Polysubstance abuse do plan to credit support counselor patient on cessation once she is weaned off the vent 8. DVT prophylaxis SCDs and Lovenox Code Visit Inpatient E&M: [id number] [facility] Hosp L3
[2017-12-18] MEDS: 0.9% NaCl Peripheral Flush Adult/Peds IV ×2 (07:57→08:06)
[2017-12-18] MEDS: Dext 5%-0.45% NS 1,000 ML 150 ML IV (08:07)
[2017-12-18] MEDS: Polyethylene Glycol 3350 17 GM PACKET GT ×2 (10:17→21:22)
[2017-12-18] MEDS: QUEtiapine 25 MG Tablet 50 MG GT ×2 (10:17→22:39)
[2017-12-18] MEDS: Senna/Docusate Sodium 1 Tablet 2 TABLET GT ×2 (10:17→21:22)
[2017-12-18] MEDS: Ciprofloxacin 400 MG/200 ML BAG 200 MG IV ×2 (10:18→21:22)
[2017-12-18] MEDS: Enoxaparin 40 MG/0.4 ML Syringe SC (10:18)
[2017-12-18] MEDS: Chlorhexidine 15 ML PO ×2 (10:18→21:23)
[2017-12-18 12:40] LABS: Bedside Glucose 179 mg/dL (70-110)
[2017-12-18 12:51] LABS: Pathologist Review Reviewed
[2017-12-18 12:52] LABS: Pathologist Review Reviewed
[2017-12-18] MEDS: Insulin Lispro 100 UNIT/ML INSULN.PEN SC (13:20)
[2017-12-18 18:50] LABS: Bedside Glucose 121 mg/dL (70-110)
[2017-12-18] MEDS: Vital AF 1.2 Cal Liquid 1,000 ML 20 ML GT (22:28)
[2017-12-18 23:45] LABS: Bedside Glucose 124 mg/dL (70-110)
[2017-12-19] VITALS (19 sets, daily range): BP systolic 108–146; BP diastolic 62–101; PULSE 60–122; RESP 13–20; TEMP 36.7–37.8; O2SAT 96–100
[2017-12-19] MEDS: fentaNYL drip 100 ML 5 MCG IV (01:40)
[2017-12-19] MEDS: Propofol 10MG/Ml 1,000 MG/100 ML Bottle 1.26 MG CONT INF (02:04)
[2017-12-19 04:26] LABS: Calcium,Total 7.6 mg/dL (8.5-10.1); Magnesium 2.1 mg/dL (1.6-2.6); Phosphorus 1.6 mg/dL (2.5-4.9)
[2017-12-19 06:26] LABS: Bedside Glucose 115 mg/dL (70-110)
[2017-12-19 06:51] LABS: Absolute Lymphocyte Count 3.19 X10^3/ul (0.83-4.51); Basophil# 0.08 X10^3/uL; Basophil% 0.4 % (0-1); Eosinophil# 0.02 X10^3/uL; Eosinophils% 0.1 % (0-5); Hematocrit 30.5 % (37-47); Hemoglobin 10.1 g/dl (12.0-15.0); Lymphocyte # 3.19 X10^3/ul (4.0); Lymphocyte % 16.8 % (19-41); Mean Corp Hgb Conc 33.1 g/gl (32-36); Mean Corpuscular Hgb 29.1 pg (27.0-32.0); Mean Corpuscular Volume 87.9 fL (81-99); Mean Platelet Vol. 9.6 fl (6.2-12.0); Monocyte# 1.19 X10^3/uL; Monocyte% 6.3 % (0-10); Neutrophil # 13.97 X10^3/uL (2.7-7.7); Neutrophil % 73.7 % (47-70); Platelet Count 365 K/mm3 (150-450); RBC Distribution Width CV 15.2 % (11.6-14.6); RBC Distribution Width SD 48.1 fl (35.1-43.9); Red Blood Count 3.47 M/mm3 (4.2-5.4)
[2017-12-19 06:55] LABS: Differential Indicated SCAN CRITERIA MET; POSITIVE COUNT YES; POSITIVE DIFFERENTIAL NO; POSITIVE MORPHOLOGY YES
--- NOTE | 2017-12-19 06:56 | PN_ITS ---
Subjective: The patient was seen and examined at the bedside this morning. Events from the last 24 hours have been reviewed. The patient is currently febrile with a T-max of 100.1 ?F. She remains hemodynamically stable with minimal ventilatory requirements. She did pass her spontaneous breathing trial this morning. Her sedation has been on hold for several hours, as have her tube feeds. The patient is alert, cooperative and following commands appropriately. Objective: The patient's most recent lab work, culture data and imaging studies have all been personally reviewed. Blood culture x1 along with urine culture dated December 16 were positive for E. coli. Respiratory viral panel was positive for rhinovirus. Repeat blood cultures and CSF culture have not shown any growth to date. General: - - Remains intubated and mechanically ventilated. Currently tolerating CPAP mode mechanical ventilation without issue. HEENT: Atraumatic, PERRLA, Normocephalic Oral: No Gingival or Mucosal Lesions/ Ulcerations, - - Endotracheal and OG tubes remain in place. Neck: Supple, No Nodes, Trachea Midline Lungs: No rhonchi, No wheeze, No rales, Diminished Cardiovascular: Regular rate, Regular Rhythm, Normal S1, Normal S2, No murmurs Abdomen: Bowel Sounds Present, Soft, Non Tender, Non-Distended Extremities: No clubbing, No cyanosis, No edema Skin: No breakdown Musculoskeletal: No Tenderness to Palpation of Joints or Extremities Lymphatic: No Cervical, Supraclavicular, or Inguinal Adenopathy Neurological: Neuro grossly intact, - - The patient is alert, cooperative and following simple commands appropriately. Vital Signs Temp Pulse Resp BP Pulse Ox 100.1 F H 96 13 146/98 H 99 12/19/17 06:00 12/19/17 06:00 12/19/17 06:00 12/19/17 06:00 12/19/17 06:00 Oxygen Flow Rate (L/min) 30 Oxygen Delivery Method Mechanical Ventilator Weight: 114 lb 3.191 oz Body Mass Index (BMI) 16.7 Intake and Output for Last 24 Hours 12/17/17 12/18/17 12/19/17 23:59 23:59 23:59 Intake Total 4722 / 4722 7220.9 / 7220.9 687.5 / 687.5 Output Total 2500 / 2500 1800 / 1800 450 / 450 Balance 2222 / 2222 5420.9 / 5420.9 237.5 / 237.5 Labs (Last 48 Hours) 12/16/17 12/16/17 12/17/17 15:15 18:40 08:30 WBC RBC Hgb Hct MCV MCH MCHC RDW RDW Differential Plt Count MPV Immature Gran % (Auto) Neut % (Auto) Lymph % (Auto) Grayson % (Auto) Eos % (Auto) Baso % (Auto) Absolute Neuts (auto) Absolute Lymphs (auto) Total Counted Differential Comment Diff Path Review Reviewed Sodium Potassium Chloride Carbon Dioxide Anion Gap BUN Creatinine Estim Creat Clear Calc Est GFR (MDRD) Af Amer Est GFR (MDRD) Non-Af BUN/Creatinine Ratio Glucose Calcium Phosphorus Magnesium CSF Comment Reviewed MRSA (PCR) Negative POC Glucose 12/17/17 12/17/17 12/17/17 13:00 13:00 13:00 WBC RBC Hgb Hct MCV MCH MCHC RDW RDW Differential Plt Count MPV Immature Gran % (Auto) Neut % (Auto) Lymph % (Auto) Grayson % (Auto) Eos % (Auto) Baso % (Auto) Absolute Neuts (auto) Absolute Lymphs (auto) Total Counted Differential Comment Diff Path Review Sodium 146 H Potassium 3.9 Chloride 116 H Carbon Dioxide 20.0 L Anion Gap 10 BUN 9 Creatinine 0.44 L Estim Creat Clear Calc 184.56 Est GFR (MDRD) Af Amer 221 Est GFR (MDRD) Non-Af 183 BUN/Creatinine Ratio 20.2 H Glucose 93 Calcium 7.4 L Phosphorus 3.3 Magnesium 1.8 CSF Comment MRSA (PCR) POC Glucose 12/17/17 12/17/17 12/18/17 18:30 18:30 04:05 WBC RBC Hgb Hct MCV MCH MCHC RDW RDW Differential Plt Count MPV Immature Gran % (Auto) Neut % (Auto) Lymph % (Auto) Grayson % (Auto) Eos % (Auto) Baso % (Auto) Absolute Neuts (auto) Absolute Lymphs (auto) Total Counted Differential Comment Diff Path Review Sodium 146 H 148 H Potassium 5.0 4.3 Chloride 118 H 118 H Carbon Dioxide 21.0 20.0 L Anion Gap 7 10 BUN 11 17 Creatinine 0.51 L 0.42 L Estim Creat Clear Calc 125.94 152.92 Est GFR (MDRD) Af Amer 189 238 Est GFR (MDRD) Non-Af 156 197 BUN/Creatinine Ratio 21.5 H 40.7 H Glucose 100 117 H Calcium 7.3 L 7.3 L Phosphorus 2.5 Magnesium 2.9 H 2.4 CSF Comment MRSA (PCR) POC Glucose 12/18/17 12/18/17 12/18/17 04:05 12:35 18:29 WBC 22.4 H RBC 3.06 L Hgb 9.1 L Hct 26.7 L MCV 87.3 MCH 29.7 MCHC 34.1 RDW 14.7 H RDW Differential 45.4 H Plt Count 278 MPV 10.4 Immature Gran % (Auto) 0.400 Neut % (Auto) 93.7 H Lymph % (Auto) 4.1 L Grayson % (Auto) 1.7 Eos % (Auto) 0.0 Baso % (Auto) 0.1 Absolute Neuts (auto) 21.0 H Absolute Lymphs (auto) 0.92 Total Counted Not Reportable Differential Comment SCANNED Diff Path Review Sodium Potassium Chloride Carbon Dioxide Anion Gap BUN Creatinine Estim Creat Clear Calc Est GFR (MDRD) Af Amer Est GFR (MDRD) Non-Af BUN/Creatinine Ratio Glucose Calcium Phosphorus Magnesium CSF Comment MRSA (PCR) POC Glucose 179 H 121 H 12/18/17 12/19/17 12/19/17 23:39 04:00 04:00 WBC RBC Hgb Hct MCV MCH MCHC RDW RDW Differential Plt Count MPV Immature Gran % (Auto) Neut % (Auto) Lymph % (Auto) Grayson % (Auto) Eos % (Auto) Baso % (Auto) Absolute Neuts (auto) Absolute Lymphs (auto) Total Counted Differential Comment Diff Path Review Sodium Pending Potassium Pending Chloride Pending Carbon Dioxide Pending Anion Gap Pending BUN Pending Creatinine Pending Estim Creat Clear Calc Est GFR (MDRD) Af Amer Pending Est GFR (MDRD) Non-Af Pending BUN/Creatinine Ratio Pending Glucose Pending Calcium 7.6 L Pending Phosphorus 1.6 L Magnesium 2.1 CSF Comment MRSA (PCR) POC Glucose 124 H 12/19/17 12/19/17 05:12 06:40 WBC Pending RBC Pending Hgb Pending Hct Pending MCV Pending MCH Pending MCHC Pending RDW Pending RDW Differential Pending Plt Count Pending MPV Immature Gran % (Auto) Neut % (Auto) Pending Lymph % (Auto) Grayson % (Auto) Eos % (Auto) Baso % (Auto) Absolute Neuts (auto) Pending Absolute Lymphs (auto) Total Counted Pending Differential Comment Diff Path Review Sodium Potassium Chloride Carbon Dioxide Anion Gap BUN Creatinine Estim Creat Clear Calc Est GFR (MDRD) Af Amer Est GFR (MDRD) Non-Af BUN/Creatinine Ratio Glucose Calcium Phosphorus Magnesium CSF Comment MRSA (PCR) POC Glucose 115 H Microbiology 12/16/17 18:40 Csf, Spinal Fluid Gram Stain - Final 12/16/17 18:40 Csf, Spinal Fluid CSF Culture - Preliminary No growth in 48 hours. 12/16/17 16:23 Urine Catheter - Catheter Urine Culture - Final Escherichia coli 12/16/17 16:33 Blood Culture (Wb) - Right Forearm Blood Culture - Preliminary Escherichia coli 12/17/17 06:50 Mucosa - Nose Respiratory Panel (PCR) - Final Rhinovirus Medical Necessity - Tobacco Use Smoking Status: Current every day smoker Assessment/Plan All Active Problems Severe sepsis (Acute) UTI (urinary tract infection) (Acute) Toxic encephalopathy (Acute) Opiate withdrawal (Acute) Overdose (Resolved) RECOMMENDATIONS: 1. Continue antibiotics 2. Continue as needed aerosol treatments 3. Continue Lovenox and Protonix for ICU prophylaxis 4. Proceed with a trial of extubation this morning. 5. Once extubated, a bedside swallow evaluation can be completed and diet advanced accordingly. 6. Wean supplemental oxygen to maintain saturations at or above 90%. Encourage incentive spirometer use and mobilize patient as tolerated. IMPRESSIONS: 1. Acute respiratory failure The patient was initially intubated in the emergency department due to agitation. No acute underlying pulmonary infectious process was identified on chest imaging studies. Her ventilator requirements are minimal. The patient passed her spontaneous breathing trial this morning and is therefore appropriate for a trial of extubation. Once extubated, a bedside swallow evaluation can be completed and her diet advanced accordingly. Encourage incentive spirometer use and mobilize patient as tolerated. 2. Severe sepsis secondary to E. coli cystitis and bacteremia Continue antibiotics as ordered to complete treatment course. She remains hemodynamically stable. 3. Encephalopathy Resolved at this time. Likely multifactorial in etiology with underlying infectious process, substance abuse and mental health disorder contributing. 4. History of polysubstance abuse/unspecified mental health disorder Complicates care, management, recovery and prognosis. Will ask social work/case management to assist. These issues will need to be addressed further once the patient has been successfully extubated. TIME: 38 minutes of critical care time, independent of procedures, was spent addressing the patient's acute respiratory failure, severe sepsis, encephalopathy, review of all data and collaboration with the care team. (0700- 0800) Code Visit 9xxxx: [id number] Critical care first hour
[2017-12-19 06:58] LABS: Anion Gap 7 (5-15); BUN 19 mg/dL (7-18); BUN/Creat Ratio 37.2 RATIO (10-20); Calcium,Total 7.7 mg/dL (8.5-10.1); Chloride 114 mmol/L (98-107); Creatinine, Serum 0.51 mg/dL (0.55-1.02); EST Glomerular Filtration Rate 156 mL/min (>60); Est Glom Filt Rate - Afr Amer 189 mL/min (>60); Estimated Creatinine Clearance 139.09 ml/min; Glucose 108 mg/dL (74-106); Potassium 3.7 mmol/L (3.5-5.1); Sodium Level 145 mmol/L (136-145)
--- NOTE | 2017-12-19 07:13 | NURSING ---
Patient extubated at 0650 via respiratory therapist with this RN at bedside, restraints, propofol, fentanyl, and tube feed discontinued. Patient tolerated well.
--- NOTE | 2017-12-19 07:32 | PCM.PN.HOSP ---
Patient Problems: Active and Suspected Problems Severe sepsis (Acute) UTI (urinary tract infection) (Acute) Toxic encephalopathy (Acute) Subjective: Patient was weaned and extubated on the vent this a.m. Her urine and blood cultures came back positive for E. coli currently on appropriate antibiotic therapy Objective: GENERAL: In no distress HEENT: Atraumatic; EYES; Anicteric, Normal Conjunctiva NECK; supple, normal thyroid, no distended JVD. RESPIRATORY: Diminished to auscultation bilaterally, CARDIOVASCULAR: Regular S1 S2, no audible murmurs GI: soft, non-tender, normoactive bowel sounds, : No Renal angle tenderness; EXTREMITIES: No edema, no clubbing, no cyanosis. MUSCULOSKELTAL: No Joint Tenderness; no muscle waisting NEURO: Awake, no lateralizing signs SKIN: No Rash PSYCH; appropriate affect Vitals/I&O's: Vital Signs Temp Pulse Resp BP Pulse Ox 100.1 F H 122 H 18 146/98 H 96 12/19/17 06:00 12/19/17 06:50 12/19/17 06:50 12/19/17 06:00 12/19/17 06:50 Oxygen Flow Rate (L/min) 2 Oxygen Delivery Method Nasal Cannula Weight: 51.8 kg Body Mass Index (BMI) 16.7 Intake and Output for Last 24 Hours 12/17/17 12/18/17 12/19/17 23:59 23:59 23:59 Intake Total 4722 / 4722 7220.9 / 7220.9 687.5 / 687.5 Output Total 2500 / 2500 1800 / 1800 450 / 450 Balance 2222 / 2222 5420.9 / 5420.9 237.5 / 237.5 Microbiology Past 72 Hours 12/16/17 18:40 Csf, Spinal Fluid Gram Stain - Final 12/16/17 18:40 Csf, Spinal Fluid CSF Culture - Preliminary No growth in 48 hours. 12/16/17 16:23 Urine Catheter - Catheter Urine Culture - Final Escherichia coli 12/16/17 16:33 Blood Culture (Wb) - Right Forearm Blood Culture - Preliminary Escherichia coli 12/17/17 06:50 Mucosa - Nose Respiratory Panel (PCR) - Final Rhinovirus Laboratory Results 12/16/17 15:15: Diff Path Review Reviewed 12/16/17 18:40: CSF Comment Reviewed 12/18/17 12:35: POC Glucose 179 H 12/18/17 18:29: POC Glucose 121 H 12/18/17 23:39: POC Glucose 124 H 12/19/17 04:00: Calcium 7.6 L, Phosphorus 1.6 L, Magnesium 2.1 12/19/17 04:00: Sodium 145, Potassium 3.7, Chloride 114 H, Carbon Dioxide 24.0, Anion Gap 7, BUN 19 H, Creatinine 0.51 L, Estim Creat Clear Calc 139.09, Est GFR (MDRD) Af Amer 189, Est GFR (MDRD) Non-Af 156, BUN/Creatinine Ratio 37.2 H, Glucose 108 H, Calcium 7.7 L 12/19/17 05:12: POC Glucose 115 H 12/19/17 06:40: WBC 19.0 H, RBC 3.47 L, Hgb 10.1 L, Hct 30.5 L, MCV 87.9, MCH 29.1, MCHC 33.1, RDW 15.2 H, RDW Differential 48.1 H, Plt Count 365, MPV 9.6, Immature Gran % (Auto) 2.700 H, Neut % (Auto) 73.7 H, Lymph % (Auto) 16.8 L, Butler % (Auto) 6.3, Eos % (Auto) 0.1, Baso % (Auto) 0.4, Absolute Neuts (auto) 14.0 H, Absolute Lymphs (auto) 3.19, Total Counted Not Reportable, Diff Path Review May foll Current Medications Acetaminophen (Tylenol Liquid) 650 mg GT Q6H PRN PRN PRN Reason: FEVER Last Admin: 12/16/17 23:03 Dose: 650 mg Albuterol Sulfate (Ventolin Aerosols) 2.5 mg INHALATION Q2H PRN PRN PRN Reason: SHORTNESS OF BREATH Chlorhexidine Gluconate () 15 ml PO BID [facility] Last Admin: 12/18/17 21:23 Dose: 15 ml Chlorhexidine Gluconate () 1 each TOPICAL DAILY [facility] Last Admin: 12/18/17 05:16 Dose: 1 each Enoxaparin Sodium (Lovenox) 40 mg SC DAILY@1000 [facility] Last Admin: 12/18/17 10:18 Dose: 40 mg Sodium Chloride () 250 mls @ 15 mls/hr IV .[id number] PRN PRN Reason: SALINE FLUSH Last Admin: 12/17/17 07:34 Dose: 15 mls/hr Pantoprazole Sodium 40 mg/ (Sodium Chloride) 110 mls @ 330 mls/hr IV Q24 [facility] Last Admin: 12/18/17 10:23 Dose: 330 mls/hr Ciprofloxacin (Cipro) 400 mg in 200 mls @ 200 mls/hr IV Q12 [facility] Last Admin: 12/18/17 21:22 Dose: 200 mls/hr Insulin Human Lispro (Humalog Kwikpen (Bkc)) 0 unit SC Q6 [facility]; Protocol Last Admin: 12/19/17 05:13 Dose: Not Given Magnesium Hydroxide (Milk Of Magnesia) 30 ml PO DAILY PRN PRN PRN Reason: Constipation Polyethylene Glycol (Miralax) 17 gm GT BID [facility] Last Admin: 12/18/17 21:22 Dose: 17 gm Senna/Docusate Sodium (Senokot-S, Ines-Colace) 2 tablet GT BID [facility] Last Admin: 12/18/17 21:22 Dose: 2 tablet Sodium Chloride () 5 - 30 ml IV UD PRN PRN Reason: SALINE FLUSH Last Admin: 12/18/17 08:06 Dose: 20 ml Sodium Chloride () 10 - 40 ml IV UD PRN PRN Reason: MULTILUMEN/HICMAN CATH FLUSH Last Admin: 12/17/17 02:07 Dose: 40 ml Medical Necessity - Tobacco Use Smoking Status: Current every day smoker Assessment/Plan All Active Problems Severe sepsis (Acute) UTI (urinary tract infection) (Acute) Toxic encephalopathy (Acute) Opiate withdrawal (Acute) Overdose (Resolved) Patient is a 22-year-old lady with history of polysubstance abuse who presented with altered mental status, paranoid delusions and agitation. An assessment of severe sepsis secondary to cystitis was made. Patient had to be intubated as a result of agitation 1. Severe sepsis secondary to acute cystitis with E. coli with bacteremia. Patient was initially managed with vancomycin and ceftriaxone discontinued after meningitis was ruled out subsequently started on Zosyn patient antibiotics switched to p.o. ciprofloxacin 2. Acute hypoxic respiratory failure following patient severe sepsis and agitation had to be electively vent vent management deferred to pulmonary/critical care. Patient was weaned off the vent on 12/19/2017 3. Acute cystitis cultures pending on Zosyn; management as discussed above 4. Toxic encephalopathy secondary to polysubstance use including opiates and amphetamines 5. Hypernatremia: Adjusted patient IV fluids; improving 6. Hypokalemia corrected per protocol 7. Polysubstance abuse counseled on cessation 8. DVT prophylaxis SCDs and Lovenox Code Visit Inpatient E&M: [id number] Subs Hosp L3
--- NOTE | 2017-12-19 09:30 | CASEMGMT ---
SW spoke with patient after rounds. Her mom was also present. Her mom started off conversation by telling SW about patient's past involvement with [facility] and how she was in a long term. SW then talked directly to patient and asked her if she needed re-connected with mental health services. She was open to talking with someone from [facility] as long as it was a specific counselor she had previously. She could not remember her name, but she had long brown hair. SW asked patient if she was still at the long term. She then argued with her mom asking her why she had to bring up that past information. She said she is not at a long term, that was last year. She and her mom argued back and forth. SW then asked patient if she needed resources for drug treatment. She said she was confused and did not want to talk with SW anymore. She told her mom she ruined it. She told her mom she shouldn't have done that. LONDON told patient SW will check with Behavioral Health and get back with her later. LONDON will talk with patient a little later and if her mom is present SW will ask her to leave so SW can speak with patient alone. SW will also check with Behavioral Health. Blanca LYNCH MSW
[2017-12-19] MEDS: CHLORHEXIDINE GLUC 2% CLOTH 1 EACH TOWELETTE TOPICAL (10:16)
[2017-12-19] MEDS: Gabapentin 600 MG Tablet PO ×3 (10:16→22:12)
[2017-12-19] MEDS: cloNIDine HCl 0.1 MG Tablet PO ×3 (10:16→22:12)
[2017-12-19] MEDS: Ciprofloxacin 400 MG/200 ML BAG 200 MG IV (10:17)
--- NOTE | 2017-12-19 13:21 | CASEMGMT ---
SW called Arnol at [facility] and he said patient is probably talking about Rachele. He said he will see if Rachele can come and talk with patient. SW went to room to see patient, but she was sleeping and did not wake to SW calling her name. LONDON spoke with SW on MS3 and explained conversation SW had with patient earlier. SW told her about Rachele from [facility] coming to see patient. SW also told her SW was going to ask patient if she needed resources for substance abuse. Blanca LYNCH [employer]ATION [employer]
[2017-12-19] MEDS: proMETHazine 25 MG/ML Syringe 12.5 MG IM (17:25)
[2017-12-19] MEDS: Acetaminophen 325 MG Tablet 650 MG PO ×2 (17:26→22:12)
[2017-12-19] MEDS: Ciprofloxacin 500 MG Tablet PO (22:12)
[2017-12-19] MEDS: hydrOXYzine PAM 25 MG Capsule 50 MG PO (23:20)
[2017-12-19] MEDS: Pramipexole Di-HCl 0.125 MG Tablet PO (23:21)
[2017-12-20 04:02] VITALS: BP 110/75; PULSE 66; RESP 14; TEMP 36.8; O2SAT 98
[2017-12-20] MEDS: Acetaminophen 325 MG Tablet 650 MG PO ×2 (05:15→13:24)
[2017-12-20] MEDS: cloNIDine HCl 0.1 MG Tablet PO ×2 (05:15→13:23)
[2017-12-20] MEDS: Gabapentin 600 MG Tablet PO ×2 (05:15→13:23)
[2017-12-20] MEDS: LORazepam 1 MG Tablet PO (05:55)
[2017-12-20] MEDS: 0.9% NaCl Peripheral Flush Adult/Peds IV ×2 (06:12→13:23)
[2017-12-20 06:31] LABS: Hematocrit 29.9 % (37-47); Mean Corp Hgb Conc 33.4 g/gl (32-36); Mean Corpuscular Hgb 29.1 pg (27.0-32.0); Mean Corpuscular Volume 86.9 fL (81-99); Mean Platelet Vol. 9.5 fl (6.2-12.0); Platelet Count 377 K/mm3 (150-450); RBC Distribution Width CV 14.1 % (11.6-14.6); RBC Distribution Width SD 43.9 fl (35.1-43.9); Red Blood Count 3.44 M/mm3 (4.2-5.4); White Blood Count 12.9 K/mm3 (4.4-11.0)
[2017-12-20 06:35] LABS: Scan Indicated on CBC? Y/N NO
[2017-12-20 06:54] LABS: Anion Gap 9 (5-15); BUN 8 mg/dL (7-18); BUN/Creat Ratio 15.7 RATIO (10-20); Calcium,Total 8.4 mg/dL (8.5-10.1); Chloride 102 mmol/L (98-107); Creatinine, Serum 0.51 mg/dL (0.55-1.02); EST Glomerular Filtration Rate 156 mL/min (>60); Est Glom Filt Rate - Afr Amer 189 mL/min (>60); Estimated Creatinine Clearance 119.49 ml/min; Glucose 117 mg/dL (74-106); Magnesium 1.4 mg/dL (1.6-2.6); Phosphorus 3.8 mg/dL (2.5-4.9); Potassium 2.9 mmol/L (3.5-5.1); Sodium Level 143 mmol/L (136-145)
[2017-12-20 08:16] VITALS: O2SAT 96
--- NOTE | 2017-12-20 08:26 | DCINST_ITS ---
- Discharge Diagnoses Current Active Problems: Current Active and Chronic Problems Severe sepsis (Acute) UTI (urinary tract infection) (Acute) Toxic encephalopathy (Acute) You will use the following diet at home:: No restrictions Discharge Activity: Return to Normal Activity, May not drive while taking narcotic pain medications. Allergies/Adverse Reactions: Allergies nickel [Nickel] Allergy (Verified 12/16/17 14:55) Unknown Penicillins Allergy (Verified 12/16/17 14:55) Shortness of breath doxycycline Adverse Reaction (Verified 12/16/17 14:55) Vomiting metronidazole [From Flagyl] Adverse Reaction (Verified 12/16/17 14:55) Upset Stomach sulfamethoxazole [From Bactrim] Adverse Reaction (Verified 12/16/17 14:55) Upset Stomach trimethoprim [From Bactrim] Adverse Reaction (Verified 12/16/17 14:55) Upset Stomach Medications to take at Discharge Acetaminophen [Tylenol Tablet] 650 mg PO Q4H PRN PRN #100 tab 10/02/17 Clonidine HCl 0.05 mg PO TID PRN PRN #45 tab 10/02/17 Gabapentin [Neurontin] 600 mg PO TID #90 tab 10/02/17 Ibuprofen 600 mg PO TID #90 tab 18 Ciprofloxacin [Cipro] 500 mg PO BID #20 tablet 12/20/17 Magnesium Oxide [Mag-Ox 400] 400 mg PO BIDCM #20 tablet 12/20/17 Potassium Chloride [K-Dur] 40 meq PO BIDCM #28 tablet 12/20/17 The following prescriptions were given: Ciprofloxacin [Cipro] 500 mg PO BID #20 tablet Magnesium Oxide [Mag-Ox 400] 400 mg PO BIDCM #20 tablet Potassium Chloride [K-Dur] 40 meq PO BIDCM #28 tablet Primary Care Physician: Care Physician,No Primary [Primary Care Provider] - Please follow up with your Primary Care Physician in: in 5-7 days Test Results: Test results from this visit will be discussed in further detail at your follow- up appointment, if applicable. Proposed Discharge Date: 12/20/17
--- NOTE | 2017-12-20 08:27 | PCM.DC.SUM ---
Discharge Date and Diagnosis - Problem List Patient Problems: Active and Suspected Problems Severe sepsis (Acute) UTI (urinary tract infection) (Acute) Toxic encephalopathy (Acute) Date of Admission: 12/16/17 Date of Discharge: 12/20/17 - Primary Discharge Diagnosis Active and Suspected Problems Severe sepsis (Acute) UTI (urinary tract infection) (Acute) Toxic encephalopathy (Acute) - Secondary Discharge Diagnosis Chronic Problems Borderline personality disorder (Chronic) Depression (Chronic) Drug abuse (Chronic) heroin and cocaine Bipolar disorder (Chronic) Hospital Course and Treatment Imaging Results: Clinical Impression(s) from Imaging Studies Chest X-Ray 12/16/17 15:02 IMPRESSION: Normal x-ray examination of the chest. Electronically Signed: Leslie Orozco MD at 15:27 EDT Tel , Service support , Brain CT 12/16/17 15:48 IMPRESSION: No acute intracranial abnormality. Electronically Signed: Shad Slade, at 17:21 EDT Tel , Service support , Chest X-Ray 12/16/17 16:00 IMPRESSION: Satisfactory position of the support lines and tubes. No acute thoracic pathology. Electronically Signed: Shad Slade, at 16:29 EDT Tel , Service support , Chest X-Ray 12/16/17 17:50 IMPRESSION: Satisfactory position of the support lines and tubes. No acute thoracic pathology. Electronically Signed: Shad Slade, at 18:56 EDT Tel , Service support , Microbiology 12/16/17 18:40 Csf, Spinal Fluid Gram Stain - Final 12/16/17 18:40 Csf, Spinal Fluid CSF Culture - Final No growth in 72 hours. 12/16/17 15:15 Blood Culture (Wb)#3 - Right Forearm Blood Culture - Preliminary No growth in 48 hours. 12/16/17 16:23 Urine Catheter - Catheter Urine Culture - Final Escherichia coli 12/16/17 16:33 Blood Culture (Wb) - Right Forearm Blood Culture - Preliminary Escherichia coli 12/17/17 06:50 Mucosa - Nose Respiratory Panel (PCR) - Final Rhinovirus Operations: None Summary of Care Provided: Patient is a 22-year-old lady with history of polysubstance abuse who presented with altered mental status, paranoid delusions and agitation. An assessment of severe sepsis secondary to cystitis was made. Patient had to be intubated as a result of agitation 1. Severe sepsis secondary to acute cystitis with E. coli with bacteremia. Patient was initially managed with vancomycin and ceftriaxone discontinued after meningitis was ruled out subsequently started on Zosyn patient antibiotics switched to p.o. ciprofloxacin 2. Acute hypoxic respiratory failure following patient severe sepsis and agitation had to be electively vent vent management deferred to pulmonary/critical care. Patient was weaned off the vent on 12/19/2017 3. Acute cystitis cultures pending on Zosyn; management as discussed above 4. Toxic encephalopathy secondary to polysubstance use including opiates and amphetamines patient was counseled on cessation 5. Hypernatremia: Adjusted patient IV fluids; improving 6. Hypokalemia corrected per protocol 7. Polysubstance abuse counseled on cessation 8. DVT prophylaxis SCDs and Lovenox Patient Problems: Active and Suspected Problems Severe sepsis (Acute) UTI (urinary tract infection) (Acute) Toxic encephalopathy (Acute) - Physical Exam General: Alert HEENT: Atraumatic Oral: Moist Mucosa Neck: Supple Lungs: Clear to auscultation Cardiovascular: Regular rate Neurological: Neuro grossly intact Psych/Mental Status: Normal Affect Vital Signs Temp Pulse Resp BP Pulse Ox 98.3 F 66 14 110/75 96 12/20/17 04:02 12/20/17 04:02 12/20/17 04:02 12/20/17 04:02 12/20/17 08:16 Oxygen Flow Rate (L/min) 2 Oxygen Delivery Method Room Air Weight: 44.5 kg Body Mass Index (BMI) 16.7 Intake and Output for Last 24 Hours 12/18/17 12/19/17 12/20/17 23:59 23:59 23:59 Intake Total 7220.9 / 7220.9 1586.5 / 1586.5 440 / 440 Output Total 1800 / 1800 650 / 650 Balance 5420.9 / 5420.9 936.5 / 936.5 440 / 440 Microbiology Past 72 Hours 12/16/17 18:40 Gram Stain - Final Csf, Spinal Fluid CSF Culture - Final No growth in 72 hours. 12/16/17 15:15 Blood Culture - Preliminary Blood Culture (Wb)#3 - Right Forearm No growth in 48 hours. 12/16/17 16:23 Urine Culture - Final Urine Catheter - Catheter Escherichia coli 12/16/17 16:33 Blood Culture - Preliminary Blood Culture (Wb) - Right Forearm Escherichia coli 12/17/17 06:50 Respiratory Panel (PCR) - Final Mucosa - Nose Rhinovirus Laboratory Tests Past 24 Hrs 12/20/17 12/20/17 06:11 06:11 WBC 12.9 H RBC 3.44 L Hgb 10.0 L Hct 29.9 L MCV 86.9 MCH 29.1 MCHC 33.4 RDW 14.1 RDW Differential 43.9 Plt Count 377 MPV 9.5 Sodium 143 Potassium 2.9 L Chloride 102 Carbon Dioxide 32.0 Anion Gap 9 BUN 8 Creatinine 0.51 L Estim Creat Clear Calc 119.49 Est GFR (MDRD) Af Amer 189 Est GFR (MDRD) Non-Af 156 BUN/Creatinine Ratio 15.7 Glucose 117 H Calcium 8.4 L Phosphorus 3.8 Magnesium 1.4 L Discharge Diet: No Restrictions Discharge Activity: Return to Normal Activity, May not drive while taking narcotic pain medications. Home Medications: Medications to take at Discharge Acetaminophen [Tylenol Tablet] 650 mg PO Q4H PRN PRN #100 tab 10/02/17 Clonidine HCl 0.05 mg PO TID PRN PRN #45 tab 10/02/17 Gabapentin [Neurontin] 600 mg PO TID #90 tab 10/02/17 Ibuprofen 600 mg PO TID #90 tab 10/02/17 Ciprofloxacin [Cipro] 500 mg PO BID #20 tablet 12/20/17 Magnesium Oxide [Mag-Ox 400] 400 mg PO BIDCM #20 tablet 12/20/17 Potassium Chloride [K-Dur] 40 meq PO BIDCM #28 tablet 12/20/17 Following Prescrptions Were Given to Patient: Ciprofloxacin [Cipro] 500 mg PO BID #20 tablet Magnesium Oxide [Mag-Ox 400] 400 mg PO BIDCM #20 tablet Potassium Chloride [K-Dur] 40 meq PO BIDCM #28 tablet Primary Care Physician: Care Physician,No Primary [Primary Care Provider] - Please follow up with your Primary Care Physician in: in 5-7 days Disposition: Home Minutes spent on discharge:: 36 Patient Condition:: Stable Medical Necessity - Tobacco Use Smoking Status: Current every day smoker Meaningful Use Info Meaningful Use Diagnoses (Choose all that apply): None applicable Code Visit Inpatient E&M: 35597 Disch Hosp
--- NOTE | 2017-12-20 08:59 | CASEMGMT ---
Social Work Note SW met with pt to follow up on conversation pt had yesterday with SW on ICU. SW informed pt that Rachele from with be coming to talk to pt today. Pt states understanding. SW provided pt with additional mental health/substance abuse resources. Pt denied additional needs or concerns at this time. Lamar Jones [employer], CATTLE MANAGER
[2017-12-20 09:13] LABS: Pathologist Review Reviewed
[2017-12-20 10:04] VITALS: BP 127/77; PULSE 89; RESP 16; TEMP 36.7; O2SAT 99
[2017-12-20] MEDS: Ciprofloxacin 500 MG Tablet PO ×2 (10:17→10:21)
[2017-12-20] MEDS: Magnesium Oxide 400 MG Tablet PO (11:09)
[2017-12-20] MEDS: LORazepam 0.5 MG Tablet PO (11:09)
--- NOTE | 2017-12-20 12:21 | PCM.PROGNOTE ---
Patient Problems: Active and Suspected Problems Severe sepsis (Acute) UTI (urinary tract infection) (Acute) Toxic encephalopathy (Acute) Subjective: The patient was seen and examined at the bedside this morning. Events from the last 24 hours have been reviewed. The patient is currently afebrile, hemodynamically stable and maintaining appropriate oxygen saturations on room air. The patient has done well clinically following her transfer out of the intensive care unit yesterday. Objective: The patient's most recent lab work, culture data and imaging studies have all been personally reviewed. Blood culture x1 along with urine culture dated December 16 were positive for E. coli. Respiratory viral panel was positive for rhinovirus. Repeat blood cultures and CSF culture have not shown any growth to date. - Physical Exam General: Alert, Cooperative, No apparent distress HEENT: Atraumatic, PERRLA, Normocephalic Oral: No Gingival or Mucosal Lesions/ Ulcerations Neck: Supple, No Nodes, Trachea Midline Lungs: No rhonchi, No wheeze, No rales, Diminished Cardiovascular: Regular rate, Regular Rhythm, Normal S1, Normal S2, No murmurs Abdomen: Bowel Sounds Present, Soft, Non Tender Extremities: No clubbing, No cyanosis, No edema Skin: - - No significant change from previous. Musculoskeletal: No Tenderness to Palpation of Joints or Extremities Lymphatic: No Cervical, Supraclavicular, or Inguinal Adenopathy Neurological: Cranial nerves II-XII grossly intact, Neuro grossly intact Psych/Mental Status: Normal Affect, Appropriate Vital Signs Temp Pulse Resp BP Pulse Ox 98.0 F 89 16 127/77 H 99 12/20/17 10:04 12/20/17 10:04 12/20/17 10:04 12/20/17 10:04 12/20/17 10:04 Oxygen Flow Rate (L/min) 2 Oxygen Delivery Method Room Air Weight: 98 lb 1.691 oz Body Mass Index (BMI) 16.7 Intake and Output for Last 24 Hours 12/18/17 12/19/17 12/20/17 23:59 23:59 23:59 Intake Total 7220.9 / 7220.9 1586.5 / 1586.5 440 / 440 Output Total 1800 / 1800 650 / 650 Balance 5420.9 / 5420.9 936.5 / 936.5 440 / 440 Microbiology Past 72 Hours 12/16/17 18:40 Gram Stain - Final Csf, Spinal Fluid CSF Culture - Final No growth in 72 hours. 12/16/17 15:15 Blood Culture - Preliminary Blood Culture (Wb)#3 - Right Forearm No growth in 48 hours. 12/16/17 16:23 Urine Culture - Final Urine Catheter - Catheter Escherichia coli 12/16/17 16:33 Blood Culture - Preliminary Blood Culture (Wb) - Right Forearm Escherichia coli 12/17/17 06:50 Respiratory Panel (PCR) - Final Mucosa - Nose Rhinovirus Laboratory Tests Past 24 Hrs 12/19/17 12/20/17 12/20/17 06:40 06:11 06:11 WBC 12.9 H RBC 3.44 L Hgb 10.0 L Hct 29.9 L MCV 86.9 MCH 29.1 MCHC 33.4 RDW 14.1 RDW Differential 43.9 Plt Count 377 MPV 9.5 Diff Path Review Reviewed Sodium 143 Potassium 2.9 L Chloride 102 Carbon Dioxide 32.0 Anion Gap 9 BUN 8 Creatinine 0.51 L Estim Creat Clear Calc 119.49 Est GFR (MDRD) Af Amer 189 Est GFR (MDRD) Non-Af 156 BUN/Creatinine Ratio 15.7 Glucose 117 H Calcium 8.4 L Phosphorus 3.8 Magnesium 1.4 L Clinical Impression(s) from Imaging Studies Chest X-Ray 12/16/17 15:02 IMPRESSION: Normal x-ray examination of the chest. Electronically Signed: Leslie Orozco MD at 15:27 EDT Tel , Service support , Brain CT 12/16/17 15:48 IMPRESSION: No acute intracranial abnormality. Electronically Signed: Shad Slade, at 17:21 EDT Tel , Service support , Chest X-Ray 12/16/17 16:00 IMPRESSION: Satisfactory position of the support lines and tubes. No acute thoracic pathology. Electronically Signed: Shad Slade, at 16:29 EDT Tel , Service support , Chest X-Ray 12/16/17 17:50 IMPRESSION: Satisfactory position of the support lines and tubes. No acute thoracic pathology. Electronically Signed: Shad Slade, at 18:56 EDT Tel , Service support , Medical Necessity - Tobacco Use Smoking Status: Current every day smoker Assessment/Plan All Active Problems Severe sepsis (Acute) UTI (urinary tract infection) (Acute) Toxic encephalopathy (Acute) Opiate withdrawal (Acute) Overdose (Resolved) RECOMMENDATIONS: 1. Continue antibiotics 2. Continue as needed aerosol treatments 3. Encourage incentive spirometer use and mobilize patient as tolerated. IMPRESSIONS: 1. Acute respiratory failure The patient was initially intubated in the emergency department due to agitation. No acute underlying pulmonary infectious process was identified on chest imaging studies. The patient was able to be successfully extubated without any residual pulmonary sequelae. She is currently maintaining appropriate oxygen saturations on room air. Continue to encourage incentive spirometer use and mobilize patient as tolerated. 2. Severe sepsis secondary to E. coli cystitis and bacteremia Continue antibiotics as ordered to complete treatment course. She remains hemodynamically stable. 3. Encephalopathy Resolved at this time. Likely multifactorial in etiology with underlying infectious process, substance abuse and mental health disorder contributing. 4. History of polysubstance abuse/unspecified mental health disorder Complicates care, management, recovery and prognosis. This note was generated with [employer] dictation software. It may contain incorrect words, spelling, and punctuation that were not noted in checking the note before signing. DISPOSITION: Given the lack of ongoing ICU/pulmonary needs, will sign off. Please call with any additional questions. Code Visit Inpatient E&M: 26127 Subs Hosp L2
--- NOTE | 2017-12-20 12:24 | PN_ITS ---
Patient Problems: Active and Suspected Problems Severe sepsis (Acute) UTI (urinary tract infection) (Acute) Toxic encephalopathy (Acute) Subjective: The patient was seen and examined at the bedside this morning. Events from the last 24 hours have been reviewed. The patient is currently afebrile, hemodynamically stable and maintaining appropriate oxygen saturations on room air. The patient has done well clinically following her transfer out of the intensive care unit yesterday. Objective: The patient's most recent lab work, culture data and imaging studies have all been personally reviewed. Blood culture x1 along with urine culture dated December 16 were positive for E. coli. Respiratory viral panel was positive for rhinovirus. Repeat blood cultures and CSF culture have not shown any growth to date. - Physical Exam General: Alert, Cooperative, No apparent distress HEENT: Atraumatic, PERRLA, Normocephalic Oral: No Gingival or Mucosal Lesions/ Ulcerations Neck: Supple, No Nodes, Trachea Midline Lungs: No rhonchi, No wheeze, No rales, Diminished Cardiovascular: Regular rate, Regular Rhythm, Normal S1, Normal S2, No murmurs Abdomen: Bowel Sounds Present, Soft, Non Tender Extremities: No clubbing, No cyanosis, No edema Skin: - - No significant change from previous. Musculoskeletal: No Tenderness to Palpation of Joints or Extremities Lymphatic: No Cervical, Supraclavicular, or Inguinal Adenopathy Neurological: Cranial nerves II-XII grossly intact, Neuro grossly intact Psych/Mental Status: Normal Affect, Appropriate Vital Signs Temp Pulse Resp BP Pulse Ox 98.0 F 89 16 127/77 H 99 12/20/17 10:04 12/20/17 10:04 12/20/17 10:04 12/20/17 10:04 12/20/17 10:04 Oxygen Flow Rate (L/min) 2 Oxygen Delivery Method Room Air Weight: 98 lb 1.691 oz Body Mass Index (BMI) 16.7 Intake and Output for Last 24 Hours 12/18/17 12/19/17 12/20/17 23:59 23:59 23:59 Intake Total 7220.9 / 7220.9 1586.5 / 1586.5 440 / 440 Output Total 1800 / 1800 650 / 650 Balance 5420.9 / 5420.9 936.5 / 936.5 440 / 440 Microbiology Past 72 Hours 12/16/17 18:40 Gram Stain - Final Csf, Spinal Fluid CSF Culture - Final No growth in 72 hours. 12/16/17 15:15 Blood Culture - Preliminary Blood Culture (Wb)#3 - Right Forearm No growth in 48 hours. 12/16/17 16:23 Urine Culture - Final Urine Catheter - Catheter Escherichia coli 12/16/17 16:33 Blood Culture - Preliminary Blood Culture (Wb) - Right Forearm Escherichia coli 12/17/17 06:50 Respiratory Panel (PCR) - Final Mucosa - Nose Rhinovirus Laboratory Tests Past 24 Hrs 12/19/17 12/20/17 12/20/17 06:40 06:11 06:11 WBC 12.9 H RBC 3.44 L Hgb 10.0 L Hct 29.9 L MCV 86.9 MCH 29.1 MCHC 33.4 RDW 14.1 RDW Differential 43.9 Plt Count 377 MPV 9.5 Diff Path Review Reviewed Sodium 143 Potassium 2.9 L Chloride 102 Carbon Dioxide 32.0 Anion Gap 9 BUN 8 Creatinine 0.51 L Estim Creat Clear Calc 119.49 Est GFR (MDRD) Af Amer 189 Est GFR (MDRD) Non-Af 156 BUN/Creatinine Ratio 15.7 Glucose 117 H Calcium 8.4 L Phosphorus 3.8 Magnesium 1.4 L Clinical Impression(s) from Imaging Studies Chest X-Ray 12/16/17 15:02 IMPRESSION: Normal x-ray examination of the chest. Electronically Signed: Leslie Orozco MD at 15:27 EDT Tel , Service support , Brain CT 12/16/17 15:48 IMPRESSION: No acute intracranial abnormality. Electronically Signed: Shad Slade, at 17:21 EDT Tel , Service support , Chest X-Ray 12/16/17 16:00 IMPRESSION: Satisfactory position of the support lines and tubes. No acute thoracic pathology. Electronically Signed: Shad Slade, at 16:29 EDT Tel , Service support , Chest X-Ray 12/16/17 17:50 IMPRESSION: Satisfactory position of the support lines and tubes. No acute thoracic pathology. Electronically Signed: Shad Slade, at 18:56 EDT Tel , Service support , Medical Necessity - Tobacco Use Smoking Status: Current every day smoker Assessment/Plan All Active Problems Severe sepsis (Acute) UTI (urinary tract infection) (Acute) Toxic encephalopathy (Acute) Opiate withdrawal (Acute) Overdose (Resolved) RECOMMENDATIONS: 1. Continue antibiotics 2. Continue as needed aerosol treatments 3. Encourage incentive spirometer use and mobilize patient as tolerated. IMPRESSIONS: 1. Acute respiratory failure The patient was initially intubated in the emergency department due to agitation. No acute underlying pulmonary infectious process was identified on chest imaging studies. The patient was able to be successfully extubated without any residual pulmonary sequelae. She is currently maintaining appropriate oxygen saturations on room air. Continue to encourage incentive spirometer use and mobilize patient as tolerated. 2. Severe sepsis secondary to E. coli cystitis and bacteremia Continue antibiotics as ordered to complete treatment course. She remains hemodynamically stable. 3. Encephalopathy Resolved at this time. Likely multifactorial in etiology with underlying infectious process, substance abuse and mental health disorder contributing. 4. History of polysubstance abuse/unspecified mental health disorder Complicates care, management, recovery and prognosis. This note was generated with [employer] dictation software. It may contain incorrect words, spelling, and punctuation that were not noted in checking the note before signing. DISPOSITION: Given the lack of ongoing ICU/pulmonary needs, will sign off. Please call with any additional questions. Code Visit Inpatient E&M: 07450 Subs Hosp L2
[2017-12-20] MEDS: proMETHazine 25 MG/ML Syringe 12.5 MG IM (13:23)
--- NOTE | 2017-12-20 14:16 | BH.NOTE ---
BH: Inpatient Note - Notes Behavioral Health Inpatient Note: 12/20/17 14:16 Patient was alert and oriented x3. No evidence of psychosis or delusions. Referral to [facility] behavioral health due to history of mental health. Patient requested this therapist as patient was previously in [facility] IOP program. Patient was drowsy, reported not feeling well, and declined to provide detailed information. Patient declined to further discuss behavioral health recommendations as she reported feeling too tired and exhausted to talk about mental health and substance use. Patient remarked that she is no longer linked with [facility] for psychiatry due to conflicts which patient did not further discuss. Patient reported previously being linked with [facility] for counseling and case management, but she has not returned in over a month. Patient was vague about substance use, however, after reviewing patient's chart and discussing with social scientist it appears that patient is actively using as evidenced by patients drug screen at admission. Therapist discussed returning to behavioral health IOP program, however, due to active substance abuse patient is not appropriate for behavioral health IOP at this time. Patient would benefit more from a substance abuse IOP program to maintain sobriety. Patient receptive to referrals to [facility] in [place] for psychiatry and counseling as well as [facility] in [place]. Patient declined services from [facility]. Patient recommended to follow up with her outpatient counselor at [facility] for ongoing mental health treatment and case management services. Consulted with social scientist regarding assessment and recommendations. 12/20/17 14:26
--- NOTE | 2017-12-20 16:21 | NURSING ---
CENTERAL LINE D/C - NO SIGNS OF INFECTION- 17 CM OF LINE REMOVED- GAUZE WITH PETROLUM APPLIED WITH BRUCE AND OPSITE TO COVER - SITE HELD FOR 10 MIN- NO SIGNS OF BLEEDING AND PT INSTRUCTED TO LAY FLAT FOR 30 MIN- PT TOLERATED WELL
[2017-12-20 18:10] VITALS: BP 120/68; PULSE 90; RESP 16; TEMP 36.7; O2SAT 98
[2017-12-20 20:07] LABS: HEPATITIS B SURFACE AG Negative (Negative); HSV 1 By PCR Negative (Negative)
[2017-12-22 08:11] LABS: HSV 2 By PCR Negative (Negative); Hep B Surface Antibodies Reactive (.); Hep C Antibodies <0.1 s/co ratio (0.0-0.9); Hepatitis B Core Ab Total Positive (Negative)
== END 2017-12-20 18:00 | disposition home or self-care (01) | DRG 415 ==
LOC: ED 15:33 → ICU 18:06 → MS3 12-19 11:11
PROVIDERS: Family Medicine; Hospitalist; Internal Medicine Critical Care Medicine; Emergency Provider Emergency Medicine; Visit Provider Internal Medicine
DX: A41.51 Sepsis due to Escherichia coli [E. coli] (principal); N30.00 Acute cystitis without hematuria; J96.01 Acute respiratory failure with hypoxia; G92 Toxic encephalopathy; E87.0 Hyperosmolality and hypernatremia; E87.1 Hypo-osmolality and hyponatremia; R65.20 Severe sepsis without septic shock; F31.9 Bipolar disorder, unspecified; E87.6 Hypokalemia; F17.200 Nicotine dependence, unspecified, uncomplicated; F60.3 Borderline personality disorder; F19.10 Other psychoactive substance abuse, uncomplicated
CPT/HCPCS: 31500; 31720; 36556; 36600; 51702; 62270; 70450; 71045; 80048; 80053; 80076; 80307; 81001; 82310; 82550; 82803; 82945; 82962; 83605; 83735; 84100; 84157; 84478; 84703; 85025; 85027; 85610; 85730; 86703; 86704; 86706; 86803; 87040; 87070; 87077; 87086; 87088; 87186; 87205; 87340; 87529; 87633; 87641; 89050; 89051; 93005; 94002; 94003; 94660; 95831; 97161; 97166; 97802; 97803; 99251; 99285; J0878; J7030; J7040; J7050; A4216; C1751; G0463; J0610; J0696; J0744; J3490; J7799

== ENCOUNTER → 2018-02-21 15:26 | Outpatient (CLI) | payer MEDICAID, SELFPAY ==
[2018-02-21 15:26] VITALS: BMI 19.8
[2018-02-21 17:35] LABS: Absolute Lymphocyte Count 2.19 X10^3/ul (0.83-4.51); Basophil# 0.04 X10^3/uL; Basophil% 0.6 % (0-1); Eosinophil# 0.14 X10^3/uL; Hematocrit 38.8 % (37-47); Hemoglobin 12.8 g/dl (12.0-15.0); Lymphocyte # 2.19 X10^3/ul (4.0); Mean Corpuscular Hgb 29.8 pg (27.0-32.0); Mean Corpuscular Volume 90.4 fL (81-99); Mean Platelet Vol. 9.9 fl (6.2-12.0); Monocyte% 7.3 % (0-10); Neutrophil # 3.95 X10^3/uL (2.7-7.7); Neutrophil % 57.7 % (47-70); Platelet Count 324 K/mm3 (150-450); RBC Distribution Width CV 13.7 % (11.6-14.6); RBC Distribution Width SD 44.7 fl (35.1-43.9); Red Blood Count 4.29 M/mm3 (4.2-5.4); White Blood Count 6.9 K/mm3 (4.4-11.0)
[2018-02-21 17:37] LABS: POSITIVE COUNT NO; POSITIVE DIFFERENTIAL NO; POSITIVE MORPHOLOGY NO
[2018-02-21 17:55] LABS: ALB/GLOB Ratio 1.1 RATIO (0.9-2.4); AST(SGOT) 13 U/L (15-37); Alanine Aminotransfer ALT/SGPT 24 U/L (13-56); Albumin, Serum 3.6 g/dL (3.2-5.0); Alkaline Phosphatase 52 U/L (45-117); Anion Gap 9 (5-15); BUN 11 mg/dL (7-18); BUN/Creat Ratio 13.8 RATIO (10-20); CRP < 2.90 mg/L (0.0-3.0); Calcium,Total 8.7 mg/dL (8.5-10.1); Chloride 105 mmol/L (98-107); EST Glomerular Filtration Rate 93 mL/min (>60); Est Glom Filt Rate - Afr Amer 112 mL/min (>60); Globulin 3.4 g/dL (2.2-4.2); Glucose 85 mg/dL (74-106); Sodium Level 139 mmol/L (136-145); Thyroid Stim Hormone (TSH) 1.27 uIU/mL (0.358-3.74)
[2018-02-21 18:40] LABS: Amphetamine Urine VISTA NEGATIVE (<1000 ng/mL); Barbiturate Urine VISTA NEGATIVE (< 200 ng/mL); Benzodiazepine Urine VISTA NEGATIVE (< 200 ng/mL); Cocaine Urine VISTA NEGATIVE (< 300 ng/mL); Ecstacy Urine VISTA NEGATIVE (< 500 ng/mL); Methadone Urine VISTA POSITIVE (< 300 ng/mL); PCP Urine VISTA NEGATIVE (< 25 ng/mL); THC Urine VISTA NEGATIVE (< 50 ng/mL); Vista UDS pH Range 5
[2018-02-28 12:44] LABS: ANTINUCLEAR ANTIBODIES DIRECT NEGATIVE
--- OUTSIDE RECORDS SUMMARY | 2018-04-09 20:58 | XMS RPT_ITS ---
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 kidney. There is no dilatation of the collecting system in the left kidney. The stomach is unremarkable. The small bowel is unremarkable. The colon is unremarkable. There is non-visualization of the appendix. The aorta and branch vessels are unremarkable. The inferior vena cava is unremarkable. The retroperitoneum is unremarkable. There is no free fluid in the abdomen. The bladder is small with wall thickening. The uterus is normal in appearance. There are follicles in both ovaries. The soft tissues of the abdominal wall are unremarkable. The visualized bones are unremarkable. CT/Abdomen/Pelvis WITH Contrast IMPRESSION: There is subtle heterogeneity in the cortices of both kidneys, left more than right. This can be seen with pyelonephritis. Correlate clinically. There is no hydronephrosis bilaterally. The bladder is small with wall thickening, and cystitis cannot be excluded. There is heterogeneous enhancement of the spleen without a discrete mass. The spleen is normal in size. This is likely related to phase of contrast. There are no acute bowel abnormalities. There is no ascites, free air or significant lymphadenopathy. Electronically Signed: Neeru Woodruff MD at 18:34 EST Tel Direct: [phone], Service support , CC: Neeru Peters MD; Mayte Mann MD Cadet Deck: Signed URINE DRUG SCREEN Collected: 02/21/2018 Status: P Source: [place] (VISTA) 3:28 PM [facility] REPOSITORY Order Comment: List of Drugs Taken or Suspected? UNK TYPE CODE TESTS RESULT OUT OF RANGE REFERENCE UNITS LAB L505.0075 TO BE Normal CONFIRMED Result Comment: CONFIRMATORY TESTING FOR ALL POSITIVE URINE DRUG SCREEN RESULTS WILL ONLY BE SENT OUT UPON PHYSICIAN ORDER. VISTA Urine Drug Screen methods provide only preliminary analytical test results. A more specific alternate chemical method must be used in order to obtain a confirmed analytical result. Gas chromatography/mass spectrometery (GC/MS) is the preferred confirmatory method. Clinical consideration and professional judgement should be applied to any drug of abuse test result, particularly when preliminary positive results are used. URINE TCA TESTING MUST BE ORDERED SEPARATELY. USE TEST MNEMONIC: [facility] Performed By: #### L505.5000 #### [facility] [place], [address] CBC W/DIFF, AUTOMATED Collected: 02/21/2018 Status: F Source: [place] 3:28 PM [facility] REPOSITORY TYPE CODE TESTS RESULT OUT OF RANGE REFERENCE UNITS LAB L100.1000 4.4-11.0 K/mm3 Normal WBC 6.9 LAB L100.1200 4.2-5.4 M/mm3 Normal RBC 4.29 LAB L100.1300 12.0-15.0 g/dl Normal HGB 12.8 LAB L100.1400 37-47 % Normal HCT 38.8 LAB L100.1500 81-99 fL Normal MCV 90.4 LAB L100.1600 27.0-32.0 pg Normal MCH 29.8 LAB L100.1700 32-36 g/gl Normal MCHC 33.0 LAB L100.1810 11.6-14.6 % Normal RDW CV 13.7 LAB L100.1820 35.1-43.9 fl High RDW SD 44.7 LAB L100.1900 150-450 K/mm3 Normal PLT 324 LAB L100.2000 6.2-12.0 fl Normal MPV 9.9 LAB L100.2100 47-70 % Normal NEUT% 57.7 LAB L100.2200 19-41 % Normal LY% 32.0 LAB L100.2300 0-10 % Normal MONO% 7.3 LAB L100.2400 0-5 % Normal EO% 2.0 LAB L100.2500 0-1 % Normal BASO% 0.6 LAB L100.2550 0.0-0.9 % Normal IM GRAN % 0.400 Result Comment: IG% - Immature Granulocytes (promyelocytes, myelocytes and metamyelocytes) > 1% indicates that a LEFT SHIFT is Present. LAB L100.2620 2.0-7.7 X10 3/uL Normal Absolute Neut 4.0 LAB L100.2720 0.83-4.51 X10 3/ul Normal Absolute Lymph 2.19 Performed By: #### L100.0100, L500.4050, L501.9520 #### [facility] [address] [place], [place], [address] #### L3100.5475 #### [facility] (refer to report for specific site) refer to report for address and phone number COMPREHENSIVE METABOLIC Collected: 02/21/2018 Status: F Source: [facility] 3:28 PM [facility] REPOSITORY TYPE CODE TESTS RESULT OUT OF RANGE REFERENCE UNITS LAB L501.0100 74-106 mg/dL Normal GLU 85 Result Comment: Please note revised GLUCOSE reference range effective 2017. LAB L501.1000 7-18 mg/dL Normal BUN 11 LAB L501.1100 0.55-1.02 mg/dL Normal CREAT,SERUM 0.80 Result Comment: The validity of the calculated GFR AND GFRAA in patients over 70 years has not been determined. Clinical correlation is essential. LAB L501.1110 >60 mL/min Normal EST GFR 93 Result Comment: Non- GFR Calc LAB L501.1115 >60 mL/min Normal EST GFR - AA 112 Result Comment: GFR Calc LAB L501.1300 10-20 RATIO Normal BUN/CRE 13.8 LAB L501.1500 6.4-8.2 g/dL T Normal PROT 7.0 LAB L501.1800 3.2-5.0 g/dL Normal ALB 3.6 LAB L501.1950 2.2-4.2 g/dL Normal GLOB 3.4 LAB L501.2000 0.9-2.4 RATIO Normal A/G 1.1 LAB L501.2200 8.5-10.1 mg/dL CA Normal 8.7 LAB L501.4100 15-37 U/L Low AST 13 LAB L501.4305 45-117 U/L Normal ALK P 52 LAB L501.4405 13-56 U/L Normal ALT 24 LAB L501.4600 0.20-1.00 mg/dL T Normal BILI 0.60 LAB L501.5300 136-145 mmol/L NA Normal 139 LAB L501.5600 3.5-5.1 mmol/L K Normal 4.0 LAB L501.5900 98-107 mmol/L CL Normal 105 LAB L501.6100 21.0-32.0 mmol/L Normal CO2 25.0 LAB L501.6200 5-15 Normal GAP 9 Performed By: #### L100.0100, L500.4050, L501.9520 #### [facility] [address] [place], [address] #### L3100.5475 #### [facility] (refer to report for specific site) refer to report for address and phone number THYROID STIM HORMONE Collected: 02/21/2018 Status: F Source: [place] ([place]) 3:28 PM [facility] REPOSITORY TYPE CODE TESTS RESULT OUT OF RANGE REFERENCE UNITS LAB L501.9520 0.358-3.74 uIU/mL Normal TSH 1.27 Performed By: #### L100.0100, L500.4050, L501.9520 #### [facility] [address] [place], [address] #### L3100.5475 #### [facility] (refer to report for specific site) refer to report for address and phone number ANTINUCLEAR ANTIBODIES Collected: 02/21/2018 Status: F Source: [place] 3:28 PM [facility] REPOSITORY Order Comment: List of Drugs Taken or Suspected? UNK TYPE CODE TESTS RESULT OUT OF RANGE REFERENCE UNITS LAB L3100.5475 Normal NEGATIVE LUIS-DIRECT Result Comment: TEST RESULT UNITS REFERENCE INTERVAL NEGATIVE Performed By: #### L100.0100, L500.4050, L501.9520 #### [facility] [address] [place], [address] #### L3100.5475 #### [facility] (refer to report for specific site) refer to report for address and phone number CRP Collected: 02/21/2018 Status: F Source: [place] 3:28 PM [facility] REPOSITORY TYPE CODE TESTS RESULT OUT OF RANGE REFERENCE UNITS LAB L501.6710 0.0-3.0 mg/L Normal < 2.90 C-REACTIVE PROT Result Comment: C-Reactive Protein (CRP) provides useful information for the diagnosis, therapy and monitoring of inflammatory processes and associated diseases. For the evaluation of Relative Risk for Cardiovascular Disease, a High Sensitivity CRP (HSCRP) should be ordered. Performed By: #### L501.6710 #### [facility] [address] [place], [place], [address] URINE DRUG SCREEN Collected: 02/21/2018 Status: F Source: [place] ([place]IST[place]) 3:28 PM [facility] REPOSITORY Order Comment: List of Drugs Taken or Suspected? UNK TYPE CODE TESTS RESULT OUT OF RANGE REFERENCE UNITS LAB L505.0075 TO BE Normal CONFIRMED Result Comment: CONFIRMATORY TESTING FOR ALL POSITIVE URINE DRUG SCREEN RESULTS WILL ONLY BE SENT OUT UPON PHYSICIAN ORDER. VISTA Urine Drug Screen methods provide only preliminary analytical test results. A more specific alternate chemical method must be used in order to obtain a confirmed analytical result. Gas chromatography/mass spectrometery (GC/MS) is the preferred confirmatory method. Clinical consideration and professional judgement should be applied to any drug of abuse test result, particularly when preliminary positive results are used. URINE TCA TESTING MUST BE ORDERED SEPARATELY. USE TEST MNEMONIC: [facility] LAB L505.5005 VISTA UDS PH 5 Normal LAB L505.5015 <1000 ng/mL AMPHETAMINES Normal NEGATIVE LAB L505.5025 < 200 ng/mL BARBITIURATES Normal NEGATIVE LAB L505.5035 < 200 ng/mL BENZODIAZIPINE Normal NEGATIVE LAB L505.5045 < 300 ng/mL COCAINE Normal NEGATIVE LAB L505.5055 < 500 ng/mL ECSTACY Normal NEGATIVE LAB L505.5065 < 300 High ng/mL METHADONE POSITIVE LAB L505.5075 < 300 ng/mL OPIATES Normal NEGATIVE LAB L505.5085 < 25 ng/mL PCP Normal NEGATIVE LAB L505.5095 < 50 ng/mL THC Normal NEGATIVE Performed By: #### L505.5000 #### [facility] [address] [place], [address] Observed: 02/21/2018 Status: F Source: [place] CULTURE, URINE 3:28 PM [facility] REPOSITORY Urine Culture Culture exhibits no growth. Performed By: #### M100.0650 #### [facility] [address] [place], [address] METHADONE, UR CONF Collected: 02/21/2018 Status: F Source: [place] 3:28 PM [facility] REPOSITORY Order Comment: List of Drugs Taken or Suspected? UNK TYPE CODE TESTS RESULT OUT OF RANGE REFERENCE UNITS LAB L3391.0100 Normal METHADONE POSITIVE Result Comment: TEST RESULT UNITS REFERENCE INTERVAL METHADONE GC.MS CONF 2948 ug/mL cutoff = 100 TESTING PERFORMED AT [facility]. ORIGINAL REPORT ON FILE IN LAB CONTAINS ADDITIONAL TEST SITE INFORMATION. Performed By: #### L3391.0000 #### [facility] (refer to report for specific site) refer to report for address and phone number Observed: 02/20/2018 Status: F Source: [place] URINE CULTURE 11:[address] [facility] REPOSITORY Sp. Request/Comment: - Specimen received in preservative Culture Result - No growth (<1,000 CFU/ml) Performed By: #### URCUL #### [facility] [address] [place], [place] [address] PROGRESS Observed: 02/20/2018 Status: COMPLETED Source: [place] 11:[address] [facility] REPOSITORY HNO ID: [id number] Author: Leslie (Electrical Electronics Technician) Rolando Service: (none) Author Type: Nurse Specialist Type: Progress Notes Filed: 02/20/2018 1:06 PM Note Text: OUTPATIENT VISIT DATE February 20, 2018 OUTPATIENT VISIT TYPE ESTABLISHED PRIMARY CARE PHYSICIAN: No primary care provider on file. CHIEF COMPLAINT: Patient presents with: UTI History of Present Illness: Maria T Dallas is a 23 year old female who was last seen 11/2017. She has been seen in the past for ACTIVE PROBLEM LIST Contact Dermatitis and Other Eczema Due to Other Specified Agent EXCORIATION///SUPERFICIAL INJURY NEC XEROSIS///SEBACEOUS GLAND DIS NEC Rash and Other Nonspecific Skin Eruption Other Atopic Dermatitis and Related Conditions Genital Herpes Migraines Anxiety Back Ache Bipolar Affective Disorder (Hcc) Opioid Dependence With Withdrawal (Hcc) Fissure in Ano Opioid Abuse (Hcc) TMJ (Dislocation of Temporomandibular Joint) Axillary Abscess Unplanned Tobacco Use in History of Suicidal Ideation History of Herpes Genitalis Pelvic Pain in History of Drug Abuse Patient Requested Diagnostic Testing Review of outside records show admission to [facility] December 16 through December 20 for urinary tract infection, sepsis, toxic encephalopathy. See care everywhere for further details of this admission. Presents today with report of UTI symptoms.. Reports possible UTI, increased urgency, increased frequency, burning or discomfort with urination, suprapubic pain and back pain for several days. She reports recurrent UTIs since hospital admission December 2017. No current fever. S/P DISTANCE LEARNING PROGRAM COORDINATOR procedure earlier this year. No report of fever. She would like to resume gabapentin for RLS. Sleep study did not reveal, however has reported. History of polysubstance, bipolar has been advised at previous visits no further refills gabapentin. May consider alternate, consider discussion of symptoms of RLS with sleep medicine specialist who may have other recommendations. Has been referred to psychiatry, unclear if has appt upcoming at this time No recent hospital or ED visits. No new medical problems or medications. Able to obtain medications. No problems with taking medications or note side effects. PAST MEDICAL HISTORY Diagnosis Date - Axillary abscess - Bipolar I disorder, most recent episode (or current) manic, severe, specified as with psychotic behavior 03/13/08 Dr Coronado - Body piercing lower lip - Chlamydia age 14 and 15 - Constipation - Genital herpes 07/17/2012 - Hepatitis B - Infertility, female - Opioid abuse (HCC) Oxycodone/Roxicet. Pt states will have withdrawal if stops but only admits to two per day. - PID (acute pelvic inflammatory disease) - PMH - PAST MEDICAL HISTORY OF 07/11 23 hour observation for closed head injury - PMH - PAST MEDICAL HISTORY OF right eye - lazy eye - PMH - PAST MEDICAL HISTORY OF 08/2006 hospitalized [facility] for overdose - PMH - PAST MEDICAL HISTORY OF normal color vision - Restless leg - TMJ (dislocation of temporomandibular joint) - Varicella without mention of complication at age 2-3 years per mother PAST SURGICAL HISTORY Procedure Laterality Date - APPENDECTOMY 07/13 [facility] Colonoscopy - DANDC, DIAG AND/OR THERAPEUTIC 05/05/2017 Suction DANDC for Incomplete - EGD 01/2012 - PAST SURGICAL HISTORY OF Left shoulder surgery FAMILY HISTORY Problem Relation Age of Onset - None Mother - None Father - Allergies Paternal Grandmother allergic to Pcn - Diabetes Paternal Grandmother Also P-Aunts and Uncles - Hypertension Paternal Grandfather - Allergies Maternal Grandmother reaction to sugar in alcoholic beverages Social History Substance Use Topics - Smoking status: Current Every Day Smoker Packs/day: 1.00 Years: 2.00 Types: Cigarettes - Smokeless tobacco: Never Used - Alcohol use No ALLERGIES: ALLERGIES Allergen Reactions - Fragrance Mix [Othe* Rash - Amoxicillin Rash - Doxycycline GI Upset - Flagyl [Metronidazo* GI Upset Nausea - Metal [Other] Rash - Naproxen GI Upset Headache/GI upset - Trish [Other] Rash - Penicillins Hives - Ultram [Tramadol Hc* Other: See Comments Headache MEDICATIONS cloNIDine HCl (CATAPRES) 0.1 mg tablet Take 1 tablet by mouth three times daily as needed. gabapentin (NEURONTIN) 400 mg capsule 600 mg three times daily. ibuprofen (MOTRIN) 200 mg tablet Take 200 mg by mouth every 6 hours as needed. polyethylene glycol 3350 (MIRALAX, GLYCOLAX) 17 gram/dose powder Take 17 g by mouth once daily. acetaminophen (MAPAP) 325 mg tablet EVERY 4 HOURS NEEDED acyclovir (ZOVIRAX) 400 mg tablet take 1 tablet by mouth twice a day ciprofloxacin HCl (CIPRO) 500 mg tablet Take 1 tablet by mouth twice daily for 10 days. ibuprofen (MOTRIN) 600 mg tablet Take 1 tablet by mouth every 6 hours as needed. lamoTRIgine (LAMICTAL) 25 mg tablet topiramate (TOPAMAX) 200 mg tablet Take 1 tablet by mouth twice daily. REVIEW OF SYSTEMS: GENERAL: Negative for: Weight loss or gain, Fever or Chills, Weakness and Sleep difficulties. Physical Examination: BP 108/68 Pulse 68 Temp 99 Resp 16 Wt 105 lb (47.6kg) BP w/Orthostatic Vitals Date and Time Orthostatic BP Orthostatic Pulse BP Pulse BP Position BP Site BP Cuff Size 02/20/18 1135 -- -- 108/68 68 Sitting Right Arm Regular Adult Peak Flow Date and Time PF Resp 02/20/18 1135 -- 16 General appearance: Well appearing, alert, in no acute distress, well-hydrated, well nourished. Skin: Skin color, texture, turgor normal, no suspicious rashes or lesions Neuro: Gait normal. Sensation grossly intact. Reviewed chart, outside records, tests I personally interviewed, confirmed and edited the above information if obtained by others. TESTING: Glucose (mg/dL) Date Value 02/25/2015 79 Potassium (mmol/L) Date Value 02/25/2015 3.7 Sodium (mmol/L) Date Value 02/25/2015 139 Chloride (mmol/L) Date Value 02/25/2015 105 CO2 (mmol/L) Date Value 02/25/2015 20 Creatinine (mg/dL) Date Value 02/25/2015 0.85 BUN (mg/dL) Date Value 02/25/2015 9 Anion Gap (mmol/L) Date Value 02/25/2015 14 Calcium (mg/dL) Date Value 02/25/2015 9.5 Glucose (mg/dL) Date Value 02/25/2015 79 Potassium (mmol/L) Date Value 02/25/2015 3.7 Sodium (mmol/L) Date Value 02/25/2015 139 Chloride (mmol/L) Date Value 02/25/2015 105 CO2 (mmol/L) Date Value 02/25/2015 20 Creatinine (mg/dL) Date Value 02/25/2015 0.85 BUN (mg/dL) Date Value 02/25/2015 9 Anion Gap (mmol/L) Date Value 02/25/2015 14 Calcium (mg/dL) Date Value 02/25/2015 9.5 Protein, Total (g/dL) Date Value 02/25/2015 7.5 Albumin (g/dL) Date Value 02/25/2015 4.7 Bilirubin, Total (mg/dL) Date Value 02/25/2015 0.6 Alkaline Phosphatase (U/L) Date Value 02/25/2015 58 AST (U/L) Date Value 02/25/2015 16 ALT (U/L) Date Value 02/25/2015 8 Hemoglobin (g/dL) Date Value 04/26/2017 12.2 Hematocrit (%) Date Value 04/26/2017 36.9 WBC (k/uL) Date Value 04/26/2017 13.56 Cholesterol, Total (mg/dL) Date Value 08/22/2013 193 HDL Cholesterol (mg/dL) Date Value 08/22/2013 55 LDL Cholesterol (mg/dL) Date Value 08/22/2013 124 Triglyceride (mg/dL) Date Value 08/22/2013 70 No results found for: HBA1C Ejection Fraction: No results found IMPRESSION: Ms. Dallas is a 23 year old woman with history of of polysubstance and bipolar who presents with report recurrent UTI symptoms and concern about symptoms of restless leg After my examination and review of data, I make the following recommendations. PLAN AND RECOMMENDATIONS: 1. UTI symptoms - ICD9: 788.99, ICD10: R39.9 (primary diagnosis) - UA DIP B/O - URINE CULTURE - CONSULT TO UROLOGY - CIPROFLOXACIN 500 MG TABLET 2. Restless leg - ICD9: 333.94, ICD10: G25.81 Had taken gabapentin in the past Not documented on previous sleep study but reported symptom Would like discussion of options / further recommendations or evaluations that may help elucidate, relieve symptoms - CONSULT TO SLEEP MEDICINE - ADULT Offer of referral to psychiatry, deferred today Advised to go to ER if develops chest pain, shortness of breath, or severe worsening of symptoms. Discussed risks, benefits, alternatives, and potential side effects of medications. Ms. Dallas expressed understanding and agreed with the plan. Leslie Marshall APRN.POLARITY TESTER CNOV Observed: 02/20/2018 Status: COMPLETED Source: [place] 11:20 AM [facility] REPOSITORY Office Visit (INTMWS) MARIA T DALLAS ([id number]) 1995 F Date Time Provider Department 02/20/18 11:20 AM LESLIE MARSHALL (PIA) INTMWS During your visit today, we recorded the following information about you: Temperature Pulse Respiration Blood pressure 99 degrees 68/minute 16/minute 108/68 Weight 47.6 kg Leslie Marshall APRN.POLARITY TESTER 02/20/2018 1:06 PM Signed OUTPATIENT VISIT DATE February 20, 2018 OUTPATIENT VISIT TYPE ESTABLISHED PRIMARY CARE PHYSICIAN: No primary care provider on file. CHIEF COMPLAINT: Patient presents with: UTI History of Present Illness: Maria T Dallas is a 23 year old female who was last seen 11/2017. She has been seen in the past for ACTIVE PROBLEM LIST Contact Dermatitis and Other Eczema Due to Other Specified Agent EXCORIATION///SUPERFICIAL INJURY NEC XEROSIS///SEBACEOUS GLAND DIS NEC Rash and Other Nonspecific Skin Eruption Other Atopic Dermatitis and Related Conditions Genital Herpes Migraines Anxiety Back Ache Bipolar Affective Disorder (Hcc) Opioid Dependence With Withdrawal (Hcc) Fissure in Ano Opioid Abuse (Hcc) TMJ (Dislocation of Temporomandibular Joint) Axillary Abscess Unplanned Tobacco Use in History of Suicidal Ideation History of Herpes Genitalis Pelvic Pain in History of Drug Abuse Patient Requested Diagnostic Testing Review of outside records show admission to [facility] December 16 through December 20 for urinary tract infection, sepsis, toxic encephalopathy. See care everywhere for further details of this admission. Presents today with report of UTI symptoms.. Reports possible UTI, increased urgency, increased frequency, burning or discomfort with urination, suprapubic pain and back pain for several days. She reports recurrent UTIs since hospital admission December 2017. No current fever. S/P DISTANCE LEARNING PROGRAM COORDINATOR procedure earlier this year. No report of fever. She would like to resume gabapentin for RLS. Sleep study did not reveal, however has reported. History of polysubstance, bipolar has been advised at previous visits no further refills gabapentin. May consider alternate, consider discussion of symptoms of RLS with sleep medicine specialist who may have other recommendations. Has been referred to psychiatry, unclear if has appt upcoming at this time No recent hospital or ED visits. No new medical problems or medications. Able to obtain medications. No problems with taking medications or note side effects. PAST MEDICAL HISTORY Diagnosis Date - Axillary abscess - Bipolar I disorder, most recent episode (or current) manic, severe, specified as with psychotic behavior 03/13/08 Dr Coronado - Body piercing lower lip - Chlamydia age 14 and 15 - Constipation - Genital herpes 07/17/2012 - Hepatitis B - Infertility, female - Opioid abuse (HCC) Oxycodone/Roxicet. Pt states will have withdrawal if stops but only admits to two per day. - PID (acute pelvic inflammatory disease) - PMH - PAST MEDICAL HISTORY OF 07/11 23 hour observation for closed head injury - PMH - PAST MEDICAL HISTORY OF right eye - lazy eye - PMH - PAST MEDICAL HISTORY OF 08/2006 hospitalized [facility] for overdose - PMH - PAST MEDICAL HISTORY OF normal color vision - Restless leg - TMJ (dislocation of temporomandibular joint) - Varicella without mention of complication at age 2-3 years per mother PAST SURGICAL HISTORY Procedure Laterality Date - APPENDECTOMY 07/13 - COLONOSCOP W/ OR W/O [facility] SPEC 04/04/12 Colonoscopy - DANDC, DIAG AND/OR THERAPEUTIC 05/05/2017 Suction DANDC for Incomplete - EGD 01/2012 - PAST SURGICAL HISTORY OF Left shoulder surgery FAMILY HISTORY Problem Relation Age of Onset - None Mother - None Father - Allergies Paternal Grandmother allergic to Pcn - Diabetes Paternal Grandmother Also P-Aunts and Uncles - Hypertension Paternal Grandfather - Allergies Maternal Grandmother reaction to sugar in alcoholic beverages Social History Substance Use Topics - Smoking status: Current Every Day Smoker Packs/day: 1.00 Years: 2.00 Types: Cigarettes - Smokeless tobacco: Never Used - Alcohol use No ALLERGIES: ALLERGIES Allergen Reactions - Fragrance Mix [Othe* Rash - Amoxicillin Rash - Doxycycline GI Upset - Flagyl [Metronidazo* GI Upset Nausea - Metal [Other] Rash - Naproxen GI Upset Headache/GI upset - Trish [Other] Rash - Penicillins Hives - Ultram [Tramadol Hc* Other: See Comments Headache MEDICATIONS cloNIDine HCl (CATAPRES) 0.1 mg tablet Take 1 tablet by mouth three times daily as needed. gabapentin (NEURONTIN) 400 mg capsule 600 mg three times daily. ibuprofen (MOTRIN) 200 mg tablet Take 200 mg by mouth every 6 hours as needed. polyethylene glycol 3350 (MIRALAX, GLYCOLAX) 17 gram/dose powder Take 17 g by mouth once daily. acetaminophen (MAPAP) 325 mg tablet EVERY 4 HOURS NEEDED acyclovir (ZOVIRAX) 400 mg tablet take 1 tablet by mouth twice a day ciprofloxacin HCl (CIPRO) 500 mg tablet Take 1 tablet by mouth twice daily for 10 days. ibuprofen (MOTRIN) 600 mg tablet Take 1 tablet by mouth every 6 hours as needed. lamoTRIgine (LAMICTAL) 25 mg tablet topiramate (TOPAMAX) 200 mg tablet Take 1 tablet by mouth twice daily. REVIEW OF SYSTEMS: GENERAL: Negative for: Weight loss or gain, Fever or Chills, Weakness and Sleep difficulties. Physical Examination: BP 108/68 Pulse 68 Temp 99 Resp 16 Wt 105 lb (47.6kg) BP w/Orthostatic Vitals Date and Time Orthostatic BP Orthostatic Pulse BP Pulse BP Position BP Site BP Cuff Size 02/20/18 1135 -- -- 108/68 68 Sitting Right Arm Regular Adult Peak Flow Date and Time PF Resp 02/20/18 1135 -- 16 General appearance: Well appearing, alert, in no acute distress, well-hydrated, well nourished. Skin: Skin color, texture, turgor normal, no suspicious rashes or lesions Neuro: Gait normal. Sensation grossly intact. Reviewed chart, outside records, tests I personally interviewed, confirmed and edited the above information if obtained by others. TESTING: Glucose (mg/dL) Date Value 02/25/2015 79 Potassium (mmol/L) Date Value 02/25/2015 3.7 Sodium (mmol/L) Date Value 02/25/2015 139 Chloride (mmol/L) Date Value 02/25/2015 105 CO2 (mmol/L) Date Value 02/25/2015 20 Creatinine (mg/dL) Date Value 02/25/2015 0.85 BUN (mg/dL) Date Value 02/25/2015 9 Anion Gap (mmol/L) Date Value 02/25/2015 14 Calcium (mg/dL) Date Value 02/25/2015 9.5 Glucose (mg/dL) Date Value 02/25/2015 79 Potassium (mmol/L) Date Value 02/25/2015 3.7 Sodium (mmol/L) Date Value 02/25/2015 139 Chloride (mmol/L) Date Value 02/25/2015 105 CO2 (mmol/L) Date Value 02/25/2015 20 Creatinine (mg/dL) Date Value 02/25/2015 0.85 BUN (mg/dL) Date Value 02/25/2015 9 Anion Gap (mmol/L) Date Value 02/25/2015 14 Calcium (mg/dL) Date Value 02/25/2015 9.5 Protein, Total (g/dL) Date Value 02/25/2015 7.5 Albumin (g/dL) Date Value 02/25/2015 4.7 Bilirubin, Total (mg/dL) Date Value 02/25/2015 0.6 Alkaline Phosphatase (U/L) Date Value 02/25/2015 58 AST (U/L) Date Value 02/25/2015 16 ALT (U/L) Date Value 02/25/2015 8 Hemoglobin (g/dL) Date Value 04/26/2017 12.2 Hematocrit (%) Date Value 04/26/2017 36.9 WBC (k/uL) Date Value 04/26/2017 13.56 Cholesterol, Total (mg/dL) Date Value 08/22/2013 193 HDL Cholesterol (mg/dL) Date Value 08/22/2013 55 LDL Cholesterol (mg/dL) Date Value 08/22/2013 124 Triglyceride (mg/dL) Date Value 08/22/2013 70 No results found for: HBA1C Ejection Fraction: No results found IMPRESSION: Ms. Dallas is a 23 year old woman with history of of polysubstance and bipolar who presents with report recurrent UTI symptoms and concern about symptoms of restless leg After my examination and review of data, I make the following recommendations. PLAN AND RECOMMENDATIONS: 1. UTI symptoms - ICD9: 788.99, ICD10: R39.9 (primary diagnosis) - UA DIP B/O - URINE CULTURE - CONSULT TO UROLOGY - CIPROFLOXACIN 500 MG TABLET 2. Restless leg - ICD9: 333.94, ICD10: G25.81 Had taken gabapentin in the past Not documented on previous sleep study but reported symptom Would like discussion of options / further recommendations or evaluations that may help elucidate, relieve symptoms - CONSULT TO SLEEP MEDICINE - ADULT Offer of referral to psychiatry, deferred today Advised to go to ER if develops chest pain, shortness of breath, or severe worsening of symptoms. Discussed risks, benefits, alternatives, and potential side effects of medications. Ms. Dallas expressed understanding and agreed with the plan. Leslie Marshall APRN.POLARITY TESTER Leslie Marshall APRN.CNS 02/20/2018 12:06 PM Signed Take Cipro twice daily with food Make an appointment with urology for further workup for recurrent urinary tract infections Make an appointment with sleep medicine Dr. Damon Referring Provider: SELF [[id number]] Allergies As of Date: 02/20/2018 Noted Allergy Reaction fragrance mix [Other] 12/14/2007 2 - Rash AMOXICILLIN 04/06/2005 2 - Rash DOXYCYCLINE 06/25/2009 8 - GI Upset FLAGYL (METRONIDAZOLE HCL) 10/10/2011 8 - GI Upset Comments: Nausea metal [Other] 04/06/2005 2 - Rash NAPROXEN 01/31/2012 8 - GI Upset Comments: Headache/GI upset Trish [Other] 04/06/2005 2 - Rash PENICILLINS 04/06/2005 4 - Hives ULTRAM (TRAMADOL HCL) 10/10/2011 14 - Other: See Comments Comments: Headache Date Reviewed: 02/20/2018 Reviewed by: Leslie Newell LPN - Fully Assessed Reason for Visit: UTI [116] Primary Visit Diagnosis:UTI symptoms [R39.9] Other Visit Diagnosis:Restless leg [G25.81] Comment:reported symptom Order(s):UA DIP B/O [8627660] Order #: [id number] URINE CULTURE [SQURCUL] Order #: [id number] CONSULT TO UROLOGY [9071] Order #: [id number]: 1 ciprofloxacin HCl (CIPRO) 500 mg tabletTake 1 tablet by mouth twice daily for 10 days.Disp: 20 tabletRfl: 0 cloNIDine HCl (CATAPRES) 0.1 mg tabletTake 1 tablet by mouth three times daily as needed.Disp: 90 tabletRfl: 2 CONSULT TO SLEEP MEDICINE - ADULT [4330840] Order #: [id number]: 1 UA DIP, URINE (POC) [2417259] Order #: [id number]. #:[id number] Prescriptions as of 02/20/2018 Sig: CLONIDINE HCL 0.1 MG TABLET Take 1 tablet by mouth three * GABAPENTIN 400 MG CAPSULE 600 mg three times daily. IBUPROFEN 200 MG TABLET Take 200 mg by mouth every 6 * POLYETHYLENE GLYCOL 3350 17 G* Take 17 g by mouth once daily. 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] INVALID FOR*04/17/2017 Contact dermatitis and other eczema, due to uns*INVALID FOR*04/17/2017 Unspecified pruritic disorder [L29.9] INVALID FOR*04/17/2017 EXCORIATION///SUPERFICIAL INJURY NEC [T07.XXXA] INVALID FOR* XEROSIS///SEBACEOUS GLAND DIS NEC [L73.8] INVALID FOR* Insect bite NEC [W57.XXXA] INVALID FOR*03/03/2011 Scabies [B86] INVALID FOR*03/03/2011 NONSPECIF SKIN ERUPT NEC [R21] INVALID FOR* OTHER ATOPIC DERMATITIS [L20.89] INVALID FOR* Seborrheic dermatitis, unspecified [L21.9] INVALID FOR*12/16/2014 Ganglion, unspecified [M67.40] INVALID FOR*04/17/2017 Bipolar disorder, unspecified (HCC) [F31.9] INVALID FOR*04/17/2017 Genital herpes [A60.00] INVALID FOR* Migraines [G43.909] INVALID FOR* More... Anxiety [F41.9] INVALID FOR* More... Back ache [M54.9] INVALID FOR* Bipolar affective disorder (HCC) [F31.9] INVALID FOR* Opioid dependence with withdrawal (HCC) [F11.23]INVALID FOR* Fissure in ano [K60.2] INVALID FOR* Opioid abuse [F11.10] INVALID FOR* TMJ (dislocation of temporomandibular joint) [S*INVALID FOR* Axillary abscess [L02.419] INVALID FOR* Unplanned [Z34.90] INVALID FOR* More... Tobacco use in [O99.330] INVALID FOR* More... History of suicidal ideation [Z86.59] INVALID FOR* More... History of herpes genitalis [Z86.19] INVALID FOR* More... Pelvic pain in [O26.899, R10.2] INVALID FOR* More... History of drug abuse [Z87.898] INVALID FOR* More... Patient requested diagnostic testing [Z01.89] INVALID FOR* More... Other instructions from your clinician: Take Cipro twice daily with food Make an appointment with urology for further workup for recurrent urinary tract infections Make an appointment with sleep medicine Dr. Damon Prescriptions ordered this encounter Disp Refills Start End CIPROFLOXACIN 500 MG TABLET 20 t* 0 02/20/2018 03/02/2018 Route: ORAL Sig: Take 1 tablet by mouth twice daily for 10 days. CLONIDINE HCL 0.1 MG TABLET 90 t* 2 02/20/2018 Route: ORAL Sig: Take 1 tablet by mouth three times daily as needed. Medications Discontinued During This Encounter cloNIDine HCl (CATAPRES) 0.1 mg tabl* 90 t* 2 11/17/2017 02/20/2018 Route: ORAL Sig: Take 1 tablet by mouth three times daily as needed. Disc: Reason for discontinue is not on file. Follow-up and Disposition History Recorded Encounter Status:Closed by LESLIE MEREDITH on 02/20/18 CBC Collected: 01/20/2018 Status: F Source: [facility] 9:42 PM [facility] REPOSITORY TYPE CODE TESTS RESULT OUT OF REFERENCE UNITS RANGE LAB WBC(LOINC) 4.50-10.80 10 3/mcL WBC 7.10 LAB RBCCT(LOINC 4.10-5.30 10 6/mcL ) RBC 4.46 LAB HGB(LOINC) 12.0-16.0 G/dL Hgb 13.3 LAB HCT(LOINC) 34.0-46.0 % Hct 38.7 LAB MCV(LOINC) 80.0-99.0 fL MCV 86.8 LAB MCH(LOINC) 27.0-33.0 pg MCH 29.8 LAB MCHC(LOINC) 32.0-36.0 G/dL MCHC 34.3 LAB RDW(LOINC) 11.5-15.5 % RDW 14.4 LAB PLT(LOINC) 150-450 10 3/mcL Platelet 251 LAB MPV(LOINC) 6.6-10.5 fL MPV 7.1 Performed By: #### CBC, ADIFF, ANEU, BMP, GFR #### [place] [address] .AUTO DIFF Collected: 01/20/2018 Status: F Source: [facility] 9:42 [facility] REPOSITORY TYPE CODE TESTS RESULT OUT OF REFERENCE UNITS RANGE LAB KATIA(LOINC) 50.0-75.0 % Neutrophil % 51.7 LAB LYM(LOINC) 20.0-40.0 % Lymphocyte % 37.8 LAB MON(LOINC) 2.0-13.0 % Monocyte % 5.9 LAB EO(LOINC) 0.0-6.0 % Eosinophil % 4.1 LAB BAS(LOINC) 0.0-2.5 % Basophil % 0.5 LAB ABLYM(LOIN 0.90-4.32 10 3/mcL C) Lymphocyte, 2.70 Absolute LAB TAMMY(LOINC 0.09-1.40 10 3/mcL ) Monocyte, 0.40 Absolute LAB AEOS(LOINC 0.00-0.65 10 3/mcL ) Eosinophil, 0.30 Absolute LAB ABAS(LOINC 0.00-0.27 10 3/mcL ) Basophil, 0.00 Absolute Performed By: #### CBC, ADIFF, ANEU, BMP, GFR #### [address] [address] .NEUABS Collected: 01/20/2018 Status: F Source: [facility] 9:42 PM [facility] REPOSITORY TYPE CODE TESTS RESULT OUT OF REFERENCE UNITS RANGE LAB ANEU(LOINC) 2.25-8.10 10 3/mcL Neutrophil, 3.70 Absolute Performed By: #### CBC, ADIFF, ANEU, BMP, GFR #### [place] [address] BMP Collected: 01/20/2018 Status: F Source: [facility] 9:42 PM [facility] REPOSITORY TYPE CODE TESTS RESULT OUT OF REFERENCE UNITS RANGE LAB GLU(LOINC) 70-110 mg/dL Glucose Level 86 LAB NA(LOINC) 136-145 mEq/L Sodium Level 142 LAB K(LOINC) 3.5-5.0 mEq/L Potassium Level 4.1 LAB CL(LOINC) 98-110 mEq/L Chloride 105 LAB CO2(LOINC) 22-32 mEq/L CO2 30 LAB EBAL(LOINC 4.0-15.0 mEq/L ) Electrolyte Balance 7.0 LAB BUN(LOINC) 8.0-22.0 mg/dL BUN 12.0 LAB CRE(LOINC) 0.50-1.20 mg/dL Creatinine Lvl (s) 1.02 LAB BC(LOINC) 10.0-22.0 ratio BUN/Creatinine 11.8 Ratio LAB CA(LOINC) 8.4-10.1 mg/dL Calcium Lvl 8.6 Performed By: #### CBC, ADIFF, ANEU, BMP, GFR #### [address] [address] .GFR Collected: 01/20/2018 Status: F Source: [facility] 9:42 PM [facility] REPOSITORY TYPE CODE TESTS RESULT OUT OF REFERENCE UNITS RANGE LAB GFRAA(LOINC ml/min/1.73 ) sqm GFR >60 [place] Result Comment: GFR Population mean for , Non- Americans Ages 20-29 = 116 mL/min/1.73 sq.m. Ages 30-39 = 107 mL/min/1.73 sq.m. Ages 40-49 = 99 mL/min/1.73 sq.m. Ages 50-59 = 93 mL/min/1.73 sq.m. Ages 60-69 = 85 mL/min/1.73 sq.m. Ages 70+ = 75 mL/min/1.73 sq.m. Chronic Kidney Disease: Less than 60 mL/min/1.73 square meters End Stage Renal Disease: Less than 15 mL/min/1.73 square meters LAB GFRNO(LOINC) ml/min/1.73sqm GFR Non- >60 Result Comment: GFR Population mean for , Non- Americans Ages 20-29 = 116 mL/min/1.73 sq.m. Ages 30-39 = 107 mL/min/1.73 sq.m. Ages 40-49 = 99 mL/min/1.73 sq.m. Ages 50-59 = 93 mL/min/1.73 sq.m. Ages 60-69 = 85 mL/min/1.73 sq.m. Ages 70+ = 75 mL/min/1.73 sq.m. Chronic Kidney Disease: Less than 60 mL/min/1.73 square meters End Stage Renal Disease: Less than 15 mL/min/1.73 square meters Performed By: #### CBC, ADIFF, ANEU, BMP, GFR #### [address] [address] MG Collected: 01/20/2018 Status: F Source: [facility] 9:42 PM [facility] REPOSITORY TYPE CODE TESTS RESULT OUT OF REFERENCE UNITS RANGE LAB MG(LOINC) 1.6-2.4 mg/dL Magnesium Lvl 2.0 Performed By: #### MG #### [address] [address] UA Collected: 01/20/2018 Status: F Source: [facility] 8:21 PM [facility] REPOSITORY TYPE CODE TESTS RESULT OUT OF RANGE REFERENCE UNITS LAB SPCUA(ELLYN NC) UA Specimen Type Clean Catch LAB CLRUA(ELLYN NC) UA Color Yellow LAB APPUA(ELLYN NC) UA Appear Unknown Hazy LAB SGUA(LOIN C) UA Spec Grav 1.020 LAB GLUA(LOIN Negative mg/dL C) UA Glucose Negative LAB BILUA(ELLYN Neg-Trace NC) UA Bili Negative LAB KETUA(ELLYN Neg-Trace mg/dL NC) UA Ketones Negative LAB BLDUA(ELLYN Neg-Trace NC) UA Blood Negative LAB PHUA(LOIN 5.0 - 8.0 C) UA pH 7.0 LAB PROUA(ELLYN Negative mg/dL NC) UA Protein Negative LAB UROUA(ELLYN E.U./dL NC) UA Urobilinogen 0.2 LAB NITUA(ELLYN Negative NC) UA Nitrite Negative LAB LEUUA(LELYN Negative NC) UA Leuk Est Unknown Small Performed By: #### UA, UAMIC #### [place] [address] UAMIC Collected: 01/20/2018 Status: F Source: [facility] 8:21 PM [facility] REPOSITORY TYPE CODE TESTS RESULT OUT OF RANGE REFERENCE UNITS LAB RBCUA(LOIN 0-2 /hpf C) UA RBC Negative LAB WBCUA(LOIN 0-5 /hpf C) UA WBC 3-5 LAB EPIUA(LOIN 0-20 /hpf C) UA Squam Epithelial 3-5 LAB BACUA(LOIN Negative /hpf C) UA Unknown Bacteria 1+ Performed By: #### UA, UAMIC #### [place] [address] Observed: 01/20/2018 Status: F Source: [facility] 8:21 PM [facility] REPOSITORY . MICRO - Microbiology PROCEDURE: Urine Culture [*1] SOURCE: Urine, Clean Catch BODY SITE: COLLECTED DATE/TIME: 01/20/2018 20:21 EST RECEIVED DATE/TIME: 01/20/2018 22:28 EST START DATE/TIME: 01/20/2018 22:28 EST FREE TEXT SOURCE: FINAL REPORTS Final Report [] Verified Date/Time/Personnel: 01/22/2018 07:56 EST No growth at 48 hours. PRELIMINARY REPORTS Preliminary Report [] Verified Date/Time/Personnel: 2018 07:55 EST No growth to date Performing Locations *1: This test was performed at: [address], [facility] , [facility] Performed By: #### CUR #### [address], [place] [address] XR ABDOMEN SERIES Observed: 01/20/2018 Status: F Source: [facility] W/CHEST 1 VIEW 8:01 PM [facility] REPOSITORY ORIGINAL UPRIGHT AND SUPINE VIEWS OF THE ABDOMEN, 1 VIEW OF THE CHEST CLINICAL STATEMENT: Abdominal pain, constipation, recent appendectomy. COMPARISON: None FINDINGS: The cardiac silhouette is within normal limits. There is no pleural effusion, focal consolidation or vascular congestion. There is no pneumothorax seen. There is no evidence of pneumoperitoneum. There is a nonobstructive bowel gas pattern. There is a large amount stool throughout the colon. There are no air-fluid levels identified. There are no calculi referable to the urinary tract. There is no acute osseous finding. A well circumscribed 3 mm sclerotic focus in the T7 vertebral body is likely a bone island. IMPRESSION: There is a large amount stool throughout the colon consistent with constipation or possibly fecal impaction. REPORT CORRECTION CORRECTION: There is a large amount stool throughout the colon consistent with constipation or possibly fecal impaction. SPOKE TO EDGARDO NEGRON TIME: 10:22 pm I have personally reviewed the images of this examination and edited the preliminary report. Interpreted By: Phuc Pelayo MD Preliminary Report By: Jose Sanchez MD Electronically Signed By: Phuc Pelayo MD Dictated Date: 01/20/2018 10:15:06 PM Prelim Date: 01/20/2018 10:19:03 PM Sign Date: 01/20/2018 10:23:26 PM DISCHARGE SUMMARY Observed: 12/20/2017 Status: F Source: [place] 10:10 AM [facility] REPOSITORY [facility] Medical Records Department [address] [place] [address] Discharge Summary 12/20/17 0827 MR#: [id number] Acct: [id number] Name: SHERRELLMARIA T S Rep #: [id number] : 1995 22 From: Michael Hdez MD PCP: Care Physician, No Primary Status: ADM IN Location: [place] [address] Discharge Date and Diagnosis - Problem List Patient Problems: Active and Suspected Problems Severe sepsis (Acute) UTI (urinary tract infection) (Acute) Toxic encephalopathy (Acute) Date of Admission: 12/16/17 Date of Discharge: 12/20/17 - Primary Discharge Diagnosis Active and Suspected Problems Severe sepsis (Acute) UTI (urinary tract infection) (Acute) Toxic encephalopathy (Acute) - Secondary Discharge Diagnosis Chronic Problems Borderline personality disorder (Chronic) Depression (Chronic) Drug abuse (Chronic) heroin and cocaine Bipolar disorder (Chronic) Hospital Course and Treatment Imaging Results: Clinical Impression(s) from Imaging Studies Chest X-Ray 12/16/17 15:02 IMPRESSION: Normal x-ray examination of the chest. Electronically Signed: Leslie Orozco MD at 15:27 EDT Tel , Service support , Brain CT 12/16/17 15:48 IMPRESSION: No acute intracranial abnormality. Electronically Signed: Shad Slade, at 17:21 EDT Tel , Service support , Chest X-Ray 12/16/17 16:00 IMPRESSION: Satisfactory position of the support lines and tubes. No acute thoracic pathology. Electronically Signed: Shad Slade, at 16:29 EDT Tel , Service support , Chest X-Ray 12/16/17 17:50 IMPRESSION: Satisfactory position of the support lines and tubes. No acute thoracic pathology. Electronically Signed: Shad Slade, at 18:56 EDT Tel , Service support , Microbiology 12/16/17 18:40 Csf, Spinal Fluid Gram Stain - Final 12/16/17 18:40 Csf, Spinal Fluid CSF Culture - Final No growth in 72 hours. 12/16/17 15:15 Blood Culture (Wb)#3 - Right Forearm Blood Culture - Preliminary No growth in 48 hours. 12/16/17 16:23 Urine Catheter - Catheter Urine Culture - Final Escherichia coli 12/16/17 16:33 Blood Culture (Wb) - Right Forearm Blood Culture - Preliminary Escherichia coli 12/17/17 06:50 Mucosa - Nose Respiratory Panel (PCR) - Final Rhinovirus Operations: None Summary of Care Provided: Patient is a 22-year-old lady with history of polysubstance abuse who presented with altered mental status, paranoid delusions and agitation. An assessment of severe sepsis secondary to cystitis was made. Patient had to be intubated as a result of agitation 1. Severe sepsis secondary to acute cystitis with E. coli with bacteremia. Patient was initially managed with vancomycin and ceftriaxone discontinued after meningitis was ruled out subsequently started on Zosyn patient antibiotics switched to p.o. ciprofloxacin 2. Acute hypoxic respiratory failure following patient severe sepsis and agitation had to be electively vent vent management deferred to pulmonary/critical care. Patient was weaned off the vent on 12/19/2017 3. Acute cystitis cultures pending on Zosyn; management as discussed above 4. Toxic encephalopathy secondary to polysubstance use including opiates and amphetamines patient was counseled on cessation 5. Hypernatremia: Adjusted patient IV fluids; improving 6. Hypokalemia corrected per protocol 7. Polysubstance abuse counseled on cessation 8. DVT prophylaxis SCDs and Lovenox Patient Problems: Active and Suspected Problems Severe sepsis (Acute) UTI (urinary tract infection) (Acute) Toxic encephalopathy (Acute) - Physical Exam General: Alert HEENT: Atraumatic Oral: Moist Mucosa Neck: Supple Lungs: Clear to auscultation Cardiovascular: Regular rate Neurological: Neuro grossly intact Psych/Mental Status: Normal Affect Vital Signs Temp Pulse Resp BP Pulse Ox 98.3 F 66 14 110/75 96 12/20/17 04:02 12/20/17 04:02 12/20/17 04:02 12/20/17 04:02 12/20/17 08:16 Oxygen Flow Rate (L/min) 2 Oxygen Delivery Method Room Air Weight: 44.5 kg Body Mass Index (BMI) 16.7 Intake and Output for Last 24 Hours Intake Total 7220.9 / 7220.9 1586.5 / 1586.5 440 / 440 Output Total 1800 / 1800 650 / 650 Balance 5420.9 / 5420.9 936.5 / 936.5 440 / 440 Microbiology Past 72 Hours 12/16/17 18:40 Gram Stain - Final Csf, Spinal Fluid CSF Culture - Final Laboratory Tests Past 24 Hrs WBC 12.9 H RBC 3.44 L Hgb 10.0 L Hct 29.9 L MCV 86.9 MCH 29.1 MCHC 33.4 Discharge Diet: No Restrictions Discharge Activity: Return to Normal Activity, May not drive while taking narcotic pain medications. Home Medications: Medications to take at Discharge Acetaminophen [Tylenol Tablet] 650 mg PO Q4H PRN PRN #100 tab 10/02/17 Clonidine HCl 0.05 mg PO TID PRN PRN #45 tab 10/02/17 Gabapentin [Neurontin] 600 mg PO TID #90 tab 10/02/17 Ibuprofen 600 mg PO TID #90 tab 10/02/17 Ciprofloxacin [Cipro] 500 mg PO BID #20 tablet 12/20/17 Magnesium Oxide [Mag-Ox 400] 400 mg PO BIDCM #20 tablet 12/20/17 Potassium Chloride [K-Dur] 40 meq PO BIDCM #28 tablet 12/20/17 Following Prescrptions Were Given to Patient: Ciprofloxacin [Cipro] 500 mg PO BID #20 tablet Magnesium Oxide [Mag-Ox 400] 400 mg PO BIDCM #20 tablet Potassium Chloride [K-Dur] 40 meq PO BIDCM #28 tablet Primary Care Physician: Care Physician,No Primary [Primary Care Provider] - Please follow up with your Primary Care Physician in: in 5- 7 days Disposition: Home Minutes spent on discharge:: 36 Patient Condition:: Stable Medical Necessity - Tobacco Use Smoking Status: Current every day smoker Meaningful Use Info Meaningful Use Diagnoses (Choose all that apply): None applicable Code Visit Inpatient E AND M: 89961 Disch Hosp 12/20/17 1010 <Electronically signed by Michael Hdez MD> Date Michael Hdez MD Cosigner Signature (if applicable): Date CC: No Primary Care Physician; Michael Hdez MD Signed DISCHARGE INSTRUCTION Observed: 12/20/2017 Status: F Source: [place] 8:26 AM [facility] REPOSITORY [facility] Medical Records Department [address] [place] [address] Instructions for Home/Discharge Instructions 12/20/17 0825 MR#: [id number] Acct: [id number] Name: MARIA T DALLAS Rep #: [id number] : 1995 22 From: Michael Hdez MD PCP: Care Physician, No Primary Status: ADM IN - Discharge Diagnoses Current Active Problems: Current Active and Chronic Problems Severe sepsis (Acute) UTI (urinary tract infection) (Acute) Toxic encephalopathy (Acute) You will use the following diet at home:: No restrictions Discharge Activity: Return to Normal Activity, May not drive while taking narcotic pain medications. Allergies/Adverse Reactions: Allergies nickel [Nickel] Allergy (Verified 12/16/17 14:55) Unknown Penicillins Allergy (Verified 12/16/17 14:55) Shortness of breath doxycycline Adverse Reaction (Verified 12/16/17 14:55) Vomiting metronidazole [From Flagyl] Adverse Reaction (Verified 12/16/17 14:55) Upset Stomach sulfamethoxazole [From Bactrim] Adverse Reaction (Verified 12/16/17 14:55) Upset Stomach trimethoprim [From Bactrim] Adverse Reaction (Verified 12/16/17 14:55) Upset Stomach Medications to take at Discharge Acetaminophen [Tylenol Tablet] 650 mg PO Q4H PRN PRN #100 tab 10/02/17 Clonidine HCl 0.05 mg PO TID PRN PRN #45 tab 10/02/17 Gabapentin [Neurontin] 600 mg PO TID #90 tab 10/02/17 Ibuprofen 600 mg PO TID #90 tab 10/02/17 Ciprofloxacin [Cipro] 500 mg PO BID #20 tablet 12/20/17 Magnesium Oxide [Mag-Ox 400] 400 mg PO BIDCM #20 tablet 12/20/17 Potassium Chloride [K-Dur] 40 meq PO BIDCM #28 tablet 12/20/17 The following prescriptions were given: Ciprofloxacin [Cipro] 500 mg PO BID #20 tablet Magnesium Oxide [Mag-Ox 400] 400 mg PO BIDCM #20 tablet Potassium Chloride [K-Dur] 40 meq PO BIDCM #28 tablet Primary Care Physician: Care Physician,No Primary [Primary Care Provider] - Please follow up with your Primary Care Physician in: in 5- 7 days Test Results: Test results from this visit will be discussed in further detail at your follow-up appointment, if applicable. Proposed Discharge Date: 12/20/17 12/20/17 08 <Electronically signed by Michael Hdez MD> Date Michael Hdez MD CC: No Primary Care Physician; Kevin Chacko D.O. CBC-COMPLETE BLOOD CNT Collected: 12/20/2017 Status: F Source: [facility] NO DIFF 6:11 AM [facility] REPOSITORY Order Comment: SPECIMEN OBTAINED FROM LINE DRAW TYPE CODE TESTS RESULT OUT OF RANGE REFERENCE UNITS LAB L100.1000 4.4-11.0 K/mm3 High WBC 12.9 LAB L100.1200 4.2-5.4 M/mm3 Low RBC 3.44 LAB L100.1300 12.0-15.0 g/dl Low HGB 10.0 LAB L100.1400 37-47 % Low HCT 29.9 LAB L100.1500 81-99 fL Normal MCV 86.9 LAB L100.1600 27.0-32.0 pg Normal MCH 29.1 LAB L100.1700 32-36 g/gl Normal MCHC 33.4 LAB L100.1810 11.6-14.6 % Normal RDW CV 14.1 LAB L100.1820 35.1-43.9 fl Normal RDW SD 43.9 LAB L100.1900 150-450 K/mm3 Normal PLT 377 LAB L100.2000 6.2-12.0 fl Normal MPV 9.5 Performed By: #### L100.0500 #### [facility] [address] [place] [place], [address] BASIC METABOLIC Collected: 12/20/2017 Status: F Source: [place] PROFILE (BMP) 6:11 AM [facility] REPOSITORY Order Comment: SPECIMEN OBTAINED FROM LINE DRAW TYPE CODE TESTS RESULT OUT OF RANGE REFERENCE UNITS LAB L501.0100 74-106 mg/dL High GLU 117 Result Comment: Fasting Glucose result from 100 to 125 mg/dL suggests IMPAIRED HOMEOSTASIS per A.D.A. criteria. Please note revised GLUCOSE reference range effective 2017. LAB L501.1000 7-18 mg/dL Normal BUN 8 LAB L501.1100 0.55-1.02 mg/dL Low CREAT,SERUM 0.51 Result Comment: The validity of the calculated GFR AND GFRAA in patients over 70 years has not been determined. Clinical correlation is essential. LAB L501.1110 >60 mL/min Normal EST GFR 156 Result Comment: Non- GFR Calc LAB L501.1115 >60 mL/min Normal EST GFR - AA 189 Result Comment: GFR Calc LAB L501.1255 ml/min Normal Estimated CRCL 119.49 LAB L501.1300 10-20 RATIO BUN/CRE Normal 15.7 LAB L501.2200 8.5-10 mg/dL Low .1 CA 8.4 LAB L501.5300 136-14 mmol/L 5 NA Normal 143 LAB L501.5600 3.5-5. mmol/L Low 1 K 2.9 LAB L501.5900 98-107 mmol/L CL Normal 102 LAB L501.6100 21.0-3 mmol/L 2.0 CO2 Normal 32.0 LAB L501.6200 5-15 GAP Normal 9 Performed By: #### L500.2500, L501.2300, L501.5200 #### [facility] [address] [place], [place], [id number] PHOSPHORUS Collected: 12/20/2017 Status: F Source: [place] 6:11 AM [facility] REPOSITORY Order Comment: SPECIMEN OBTAINED FROM LINE DRAW TYPE CODE TESTS RESULT OUT OF RANGE REFERENCE UNITS LAB L501.2300 2.5-4.9 mg/dL Normal PHOS 3.8 Performed By: #### L500.2500, L501.2300, L501.5200 #### [facility] [address] [place], [place], [id number] MAGNESIUM Collected: 12/20/2017 Status: F Source: [place] 6:11 AM [facility] REPOSITORY Order Comment: SPECIMEN OBTAINED FROM LINE DRAW TYPE CODE TESTS RESULT OUT OF RANGE REFERENCE UNITS LAB L501.5200 1.6-2.6 mg/dL Low MG 1.4 Performed By: #### L500.2500, L501.2300, L501.5200 #### [facility] [place], [address] CBC W/DIFF, AUTOMATED Collected: 12/19/2017 Status: C Source: [place] 6:40 AM [facility] REPOSITORY TYPE CODE TESTS RESULT OUT OF RANGE REFERENCE UNITS LAB L100.1000 4.4-11.0 K/mm3 High WBC 19.0 LAB L100.1200 4.2-5.4 M/mm3 Low RBC 3.47 LAB L100.1300 12.0-15.0 g/dl Low HGB 10.1 LAB L100.1400 37-47 % Low HCT 30.5 LAB L100.1500 81-99 fL Normal MCV 87.9 LAB L100.1600 27.0-32.0 pg Normal MCH 29.1 LAB L100.1700 32-36 g/gl Normal MCHC 33.1 LAB L100.1810 11.6-14.6 % High RDW CV 15.2 LAB L100.1820 35.1-43.9 fl High RDW SD 48.1 LAB L100.1900 150-450 K/mm3 Normal PLT 365 LAB L100.2000 6.2-12.0 fl Normal MPV 9.6 LAB L100.2100 47-70 % High NEUT% 73.7 LAB L100.2200 19-41 % Low LY% 16.8 LAB L100.2300 0-10 % Normal MONO% 6.3 LAB L100.2400 0-5 % Normal EO% 0.1 LAB L100.2500 0-1 % Normal BASO% 0.4 LAB L100.2550 0.0-0.9 % High IM GRAN % 2.700 Result Comment: IG% - Immature Granulocytes (promyelocytes, myelocytes and metamyelocytes) > 1% indicates that a LEFT SHIFT is Present. LAB L100.2620 2.0-7.7 X10 3/uL High Absolute Neut 14.0 LAB L100.2720 0.83-4.51 X10 3/ul Normal Absolute Lymph 3.19 LAB L100.9900 Normal PATH REV Reviewed Result Comment: Neutrophilic leukocytosis with left shift. Normocytic anemia. Clinical correlation necessary. Carlos Malave M.D. 12/20/17 AMENDED REPORT 12/20/17912 PATH REV previously reported as: July Performed By: #### L100.0100 #### [facility] [address] [place], [address] BEDSIDE GLUCOSE Collected: 12/19/2017 Status: F Source: [place] 5:12 AM [facility] REPOSITORY TYPE CODE TESTS RESULT OUT OF REFERENCE UNITS RANGE LAB L501.080 70-110 mg/dL High BEDSIDE GLU 115 Result Comment: MANAGEMENT OF PATIENT CARE PER NURSING PROTOCOL Performed By: #### L501.080 #### [facility] Point of Care [address] [place] [address] CALCIUM,TOTAL Collected: 12/19/2017 Status: F Source: [place] 4:00 AM [facility] REPOSITORY TYPE CODE TESTS RESULT OUT OF RANGE REFERENCE UNITS LAB L501.2200 8.5-10.1 mg/dL Low CA 7.6 Performed By: #### L501.2200, L501.2300, L501.5200 #### [facility] [address] [place], [address] PHOSPHORUS Collected: 12/19/2017 Status: F Source: [place] 4:00 AM [facility] REPOSITORY TYPE CODE TESTS RESULT OUT OF RANGE REFERENCE UNITS LAB L501.2300 2.5-4.9 mg/dL Low PHOS 1.6 Performed By: #### L501.2200, L501.2300, L501.5200 #### [facility] [address] [place], [address] MAGNESIUM Collected: 12/19/2017 Status: F Source: [place] 4:00 AM [facility] REPOSITORY TYPE CODE TESTS RESULT OUT OF RANGE REFERENCE UNITS LAB L501.5200 1.6-2.6 mg/dL Normal MG 2.1 Performed By: #### L501.2200, L501.2300, L501.5200 #### [facility] [address] [place], [address] BASIC METABOLIC Collected: 12/19/2017 Status: F Source: [place] PROFILE (BMP) 4:00 AM [facility] REPOSITORY TYPE CODE TESTS RESULT OUT OF RANGE REFERENCE UNITS LAB L501.0100 74-106 mg/dL High GLU 108 Result Comment: Fasting Glucose result from 100 to 125 mg/dL suggests IMPAIRED HOMEOSTASIS per A.D.A. criteria. Please note revised GLUCOSE reference range effective 2017. LAB L501.1000 7-18 mg/dL High BUN 19 LAB L501.1100 0.55-1.02 mg/dL Low CREAT,SERUM 0.51 Result Comment: The validity of the calculated GFR AND GFRAA in patients over 70 years has not been determined. Clinical correlation is essential. LAB L501.1110 >60 mL/min Normal EST GFR 156 Result Comment: Non- GFR Calc LAB L501.1115 >60 mL/min Normal EST GFR - AA 189 Result Comment: GFR Calc LAB L501.1255 ml/min Normal Estimated CRCL 139.09 LAB L501.1300 10-20 RATIO High BUN/CRE 37.2 LAB L501.2200 8.5-10 mg/dL Low .1 CA 7.7 LAB L501.5300 136-14 mmol/L 5 NA Normal 145 LAB L501.5600 3.5-5. mmol/L 1 K Normal 3.7 LAB L501.5900 98-107 mmol/L High CL 114 LAB L501.6100 21.0-3 mmol/L 2.0 CO2 Normal 24.0 LAB L501.6200 5-15 GAP Normal 7 Performed By: #### L500.2500 #### [facility] [address] [place], [place], [address] BEDSIDE GLUCOSE Collected: 12/18/2017 Status: F Source: [place] 11:39 PM [facility] REPOSITORY TYPE CODE TESTS RESULT OUT OF REFERENCE UNITS RANGE LAB L501.080 70-110 mg/dL High BEDSIDE GLU 124 Result Comment: MANAGEMENT OF PATIENT CARE PER NURSING PROTOCOL Performed By: #### L501.080 #### [facility] Point of Care [address] [place], [place] [address] BEDSIDE GLUCOSE Collected: 12/18/2017 Status: F Source: [place] 6:29 PM [facility] REPOSITORY TYPE CODE TESTS RESULT OUT OF REFERENCE UNITS RANGE LAB L501.080 70-110 mg/dL High BEDSIDE GLU 121 Result Comment: MANAGEMENT OF PATIENT CARE PER NURSING PROTOCOL Performed By: #### L501.080 #### [facility] Point of Care [address] [place] [address] 12 LEAD ELECTROCARDIOGRAM Observed: 12/18/2017 Status: F Source: [place] 3:11 PM [facility] REPOSITORY [facility] Cardiovascular Services [address] [place] [address] 12 Lead EKG 12/16/17 1559 MR#: [id number] Acct: [id number] Name: MARIA T DALLAS Rep #: [id number] : 1995 22 From: Edu Wolfe MD Attending Dr: Michael Hdez MD Status: ADM IN Ordering Dr: Toby Landaverde MD Date: 12/16/17 Location: ICU Sex: F C Admitted: 12/16/17 Test Reason : DYSRHYTHMIA Blood Pressure : / mmHG Vent. Rate : 126 BPM Atrial Rate : 126 BPM P-R Int : 142 ms QRS Dur : 082 ms QT Int : 342 ms P-R-T Axes : 081 068 057 degrees QTc Int : 495 ms Sinus tachycardia Right atrial enlargement Nonspecific ST abnormality Abnormal ECG Confirmed by CHRISTA FIGUEROA, EDU ([id number]), research editor YOBANI HURST ([id number]) on 12/18/2017 3:11:21 PM Referred By: PRAMOD Confirmed By:EDU WOLFE MD 12/18/17 1511 Date Edu Wolfe MD CC: No Primary Care Physician; Michael Hdez MD; Toby Landaverde MD Signed BEDSIDE GLUCOSE Collected: 12/18/2017 Status: F Source: [place] 12:35 PM [facility] REPOSITORY TYPE CODE TESTS RESULT OUT OF REFERENCE UNITS RANGE LAB L501.080 70-110 mg/dL High BEDSIDE GLU 179 Result Comment: Orders Followed MANAGEMENT OF PATIENT CARE PER NURSING PROTOCOL Performed By: #### L501.080 #### [facility] Point of Care [address] [place] [address] CONSULTATION Observed: 12/18/2017 Status: F Source: [place] 6:43 AM [facility] REPOSITORY [facility] Medical Records Department [address] [place] [address] Consultation 12/17/17 0655 MR#: [id number] Acct: [id number] Name: MARIA T DALLAS Rep #: [id number] : 1995 22 From: Kevin Chacko DO PCP: Care Physician, No Primary Status: ADM IN Y Location: ICU ICU01-1 Reason for Consult Date of Consultation: 12/17/17 Reason for Consultation: Respiratory failure History of Present Illness: The patient is a 22-year-old female, with a history as outlined below, who presented to the emergency department on December 16 with altered mentation. Patient has a long-standing history of illicit drug use with exceedingly high medical resource utilization in the past. The patient was also just recently seen in the emergency department on December 13 with a multitude of complaints per documentation including pelvic pain, dysuria, vaginal discharge and hair loss. However, the patient became belligerent with the emergency provider and subsequently fired her, leaving the emergency department without any workup. On presentation to the emergency department, the patient was noted to be afebrile, tachycardic, and tachypneic. Laboratory evaluation revealed elevated white blood cell count to 30,000. Chemistry profile revealed a serum potassium of 2.8 with a chloride of 95. Lactate was elevated 2.7. ALT and AST were within normal limits. test was negative. Urinalysis was positive for nitrites and leukocyte esterase. 1+ urine bacteria was noted with 10-25 urine white blood cells. Toxicology screen was positive for both opiates and amphetamines. HIV and hepatitis panel are currently pending. Due to the patient's irrational behavior and belligerence, she was intubated. A right subclavian central line was also placed. Lumbar puncture was performed. Fluid was colorless with an opening pressure of 17 cm. No organisms were identified. The patient received supplemental IV fluid hydration and was laced on antibiotics. She was subsequently admitted to the medical intensive care unit for ongoing management. Past Medical History Past Medical History (Chronic Problems): Chronic Problems Borderline personality disorder (Chronic) Depression (Chronic) Drug abuse (Chronic) heroin and cocaine Bipolar disorder (Chronic) Allergies nickel [Nickel] Allergy (Verified 12/16/17 14:55) Unknown Penicillins Allergy (Verified 12/16/17 14:55) Shortness of breath doxycycline Adverse Reaction (Verified 12/16/17 14:55) Vomiting metronidazole [From Flagyl] Adverse Reaction (Verified 12/16/17 14:55) Upset Stomach sulfamethoxazole [From Bactrim] Adverse Reaction (Verified 12/16/17 14:55) Upset Stomach trimethoprim [From Bactrim] Adverse Reaction (Verified 12/16/17 14:55) Upset Stomach Home Medications: Ambulatory Orders Medication Instructions Recorded Acetaminophen [Tylenol Tablet] 650 mg PO Q4H PRN PRN #100 tab 10/02/17 Acyclovir [Zovirax] 400 mg PO BID #60 tab 10/02/17 Surgical History: noncontributory Psychiatric History: Bipolar - maybe...there is a question talon after BPD on the notes from the counselling center. 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 Respiratory viral panel is pending. Preliminary CSF Gram stain revealed no organisms. Preliminary anaerobic blood culture revealed gram- negative rods. Urine culture is pending. Hepatitis and HIV panel are pending. CT head was negative. Plain film chest x-ray revealed no acute cardiopulmonary process. - Physical Exam General: - - Currently intubated, sedated and mechanically ventilated. HEENT: Atraumatic, PERRLA, Normocephalic Oral: No Gingival or Mucosal Lesions/ Ulcerations, - - Endotracheal and OG tubes in place Neck: Supple, No Nodes, Trachea Midline, - - Subclavian central venous catheter in place Lungs: No rhonchi, No wheeze, No rales, Diminished Cardiovascular: Regular rate, Regular Rhythm, Normal S1, Normal S2, No murmurs Abdomen: Bowel Sounds Present, Soft, Non Tender Extremities: No clubbing, No cyanosis, No edema Skin: - - No rashes or skin breakdown. Several presumptive needle tracks on forearm. Musculoskeletal: No Muscle Wasting Lymphatic: No Cervical, Supraclavicular, or Inguinal Adenopathy Neurological: - - No focal neurological deficits. Attempts to move extremities spontaneously. Currently sedated with a RASS of -2 Vital Signs Temp Pulse Resp BP Pulse Ox 102.2 F H 82 14 108/66 100 12/17/17 00:00 12/17/17 05:15 12/17/17 05:15 12/17/17 00:00 12/17/17 05:15 Oxygen Delivery Method Mechanical Ventilator Weight: 169 lb 8.568 oz Body Mass Index (BMI) 16.7 Intake and Output for Last 24 Hours Intake Total 1578 / 1578 1602 / 1602 Output Total 750 / 750 1000 / 1000 Balance 828 / 828 602 / 602 Microbiology Past 72 Hours 12/16/17 16:33 Blood Culture - Preliminary Blood Culture (Wb) - Right Forearm 12/16/17 18:40 Gram Stain - Preliminary Csf, Spinal Fluid Laboratory Tests Past 24 Hrs WBC 29.2 H RBC 4.30 WBC RBC WBC RBC Hgb Hct MCV MCH MCHC RDW RDW Differential Plt Count MPV Immature Gran % (Auto) WBC WBC RBC Hgb Hct MCV WBC 20.6 H RBC 3.13 L Hgb 9.1 L Hct 26.7 L MCV 85.3 MCH 29.1 MCHC 34.1 RDW 14.1 RDW Differential 44.1 H Clinical Impression(s) from Imaging Studies Chest X-Ray 12/16/17 15:02 IMPRESSION: Normal x-ray examination of the chest. Electronically Signed: Leslie Orozco MD at 15:27 EDT Tel , Service support , Brain CT 12/16/17 15:48 IMPRESSION: No acute intracranial abnormality. Electronically Signed: Shad Slade at 17:21 EDT Tel , Service support , Chest X-Ray 12/16/17 16:00 IMPRESSION: Satisfactory position of the support lines and tubes. No acute thoracic pathology. Electronically Signed: Shad Slade, at 16:29 EDT Tel , Service support , Chest X-Ray 12/16/17 17:50 IMPRESSION: Satisfactory position of the support lines and tubes. No acute thoracic pathology. Electronically Signed: Shad Slade, at 18:56 EDT Tel , Service support , Assessment/Plan Active and Suspected Problems Severe sepsis (Acute) UTI (urinary tract infection) (Acute) Toxic encephalopathy (Acute) RECOMMENDATIONS: 1. Transition from ceftriaxone to Zosyn every 8 hours. 2. Obtain new set of blood cultures today. 3. Check respiratory viral panel 4. Start as needed aerosol treatments 5. Aggressive electrolyte repletion as indicated. 6. Wean the patient from ketamine and continue propofol and fentanyl for sedation. 7. Continue Lovenox and Protonix for ICU prophylaxis 8. Check MRSA screen. 9. Start tube feeds today IMPRESSIONS: 1. Acute respiratory failure The patient was initially intubated in the emergency department due to agitation. No acute underlying pulmonary infectious process was identified on chest imaging studies. Regardless, she will remain on empiric antibiotics, pending a finalized infectious workup. Her ventilator requirements are minimal. Continue propofol and fentanyl for sedation. The patient has been weaned from ketamine completely. Plan for daily paired spontaneous awakening and breathing trials. Obtain and send respiratory viral panel. Tube feeds can be initiated today. 2. Severe sepsis Concern for potential underlying urinary source of infection. The patient's anaerobic blood culture was also noted to have gram-negative rods. She is on appropriate antibiotics at the current time. We will plan to repeat her blood cultures today. She remains hemodynamically stable and has been adequately volume resuscitated. 3. Encephalopathy Likely multifactorial in etiology with underlying infectious process, substance abuse and mental health disorder contributing. Anticipate slow improvement as the patient's infectious process is treated. She will be continued on propofol and fentanyl for sedation. 4. Hypokalemia/hypophosphatemia Electrolyte repletion is underway. Recommend rechecking levels tomorrow morning. 5. History of polysubstance abuse/unspecified mental health disorder Complicates care, management, recovery and prognosis. Will ask social work/case management to assist. These issues will need to be addressed further once the patient has been successfully extubated. TIME: 45 minutes of critical care time, independent of procedures, was spent addressing the patient's acute respiratory failure, severe sepsis, encephalopathy, hypokalemia, hypophosphatemia, review of all data and collaboration with the care team. ([id number]) Code Visit 9xxxx: [id number] Critical care first hour 12/18/17 0643 <Electronically signed by Kevin Chacko DO> Date Kevin Chacko DO Cosigner Signature (if applicable): Date CC: No Primary Care Physician; Kevin Chacko D.O. Signed BASIC METABOLIC Collected: 12/18/2017 Status: F Source: [place] PROFILE (BMP) 4:05 AM [facility] REPOSITORY TYPE CODE TESTS RESULT OUT OF RANGE REFERENCE UNITS LAB L501.0100 74-106 mg/dL High GLU 117 Result Comment: Fasting Glucose result from 100 to 125 mg/dL suggests IMPAIRED HOMEOSTASIS per A.D.A. criteria. Please note revised GLUCOSE reference range effective 2017. LAB L501.1000 7-18 mg/dL Normal BUN 17 LAB L501.1100 0.55-1.02 mg/dL Low CREAT,SERUM 0.42 Result Comment: The validity of the calculated GFR AND GFRAA in patients over 70 years has not been determined. Clinical correlation is essential. LAB L501.1110 >60 mL/min Normal EST GFR 197 Result Comment: Non- GFR Calc LAB L501.1115 >60 mL/min Normal EST GFR - AA 238 Result Comment: GFR Calc LAB L501.1255 ml/min Normal Estimated CRCL 152.92 LAB L501.1300 10-20 RATIO High BUN/CRE 40.7 LAB L501.2200 8.5-10 mg/dL Low .1 CA 7.3 LAB L501.5300 136-14 mmol/L High 5 NA 148 LAB L501.5600 3.5-5. mmol/L 1 K Normal 4.3 LAB L501.5900 98-107 mmol/L High CL 118 LAB L501.6100 21.0-3 mmol/L Low 2.0 CO2 20.0 LAB L501.6200 5-15 GAP Normal 10 Performed By: #### L500.2500, L501.2300, L501.5200 #### [facility] [address] [place], [place], [id number] PHOSPHORUS Collected: 12/18/2017 Status: F Source: [place] 4:05 AM [facility] REPOSITORY TYPE CODE TESTS RESULT OUT OF RANGE REFERENCE UNITS LAB L501.2300 2.5-4.9 mg/dL Normal PHOS 2.5 Performed By: #### L500.2500, L501.2300, L501.5200 #### [facility] [address] [place], [place], [address] MAGNESIUM Collected: 12/18/2017 Status: F Source: [place] 4:05 AM [facility] REPOSITORY TYPE CODE TESTS RESULT OUT OF RANGE REFERENCE UNITS LAB L501.5200 1.6-2.6 mg/dL Normal MG 2.4 Performed By: #### L500.2500, L501.2300, L501.5200 #### [facility] [address] [place], [place], [address] CBC W/DIFF, AUTOMATED Collected: 12/18/2017 Status: F Source: [place] 4:05 AM [facility] REPOSITORY TYPE CODE TESTS RESULT OUT OF RANGE REFERENCE UNITS LAB L100.1000 4.4-11.0 K/mm3 High WBC 22.4 LAB L100.1200 4.2-5.4 M/mm3 Low RBC 3.06 LAB L100.1300 12.0-15.0 g/dl Low HGB 9.1 LAB L100.1400 37-47 % Low HCT 26.7 LAB L100.1500 81-99 fL Normal MCV 87.3 LAB L100.1600 27.0-32.0 pg Normal MCH 29.7 LAB L100.1700 32-36 g/gl Normal MCHC 34.1 LAB L100.1810 11.6-14.6 % High RDW CV 14.7 LAB L100.1820 35.1-43.9 fl High RDW SD 45.4 LAB L100.1900 150-450 K/mm3 Normal PLT 278 LAB L100.2000 6.2-12.0 fl Normal MPV 10.4 LAB L100.2100 47-70 % High NEUT% 93.7 LAB L100.2200 19-41 % Low LY% 4.1 LAB L100.2300 0-10 % Normal MONO% 1.7 LAB L100.2400 0-5 % Normal EO% 0.0 LAB L100.2500 0-1 % Normal BASO% 0.1 LAB L100.2550 0.0-0.9 % Normal IM GRAN % 0.400 Result Comment: IG% - Immature Granulocytes (promyelocytes, myelocytes and metamyelocytes) > 1% indicates that a LEFT SHIFT is Present. LAB L100.2620 2.0-7.7 X10 3/uL High Absolute Neut 21.0 LAB L100.2720 0.83-4.51 X10 3/ul Normal Absolute Lymph 0.92 LAB L100.4500 Normal SMEAR COMMENT SCANNED Result Comment: NEUTROPHILIA NOTED Performed By: #### L100.0100 #### [facility] [address] [place], [place], [address] BASIC METABOLIC Collected: 12/17/2017 Status: F Source: [place] PROFILE (BMP) 6:30 PM [facility] REPOSITORY TYPE CODE TESTS RESULT OUT OF RANGE REFERENCE UNITS LAB L501.0100 74-106 mg/dL Normal GLU 100 Result Comment: Fasting Glucose result from 100 to 125 mg/dL suggests IMPAIRED HOMEOSTASIS per A.D.A. criteria. Please note revised GLUCOSE reference range effective 2017. LAB L501.1000 7-18 mg/dL Normal BUN 11 LAB L501.1100 0.55-1.02 mg/dL Low CREAT,SERUM 0.51 Result Comment: The validity of the calculated GFR AND GFRAA in patients over 70 years has not been determined. Clinical correlation is essential. LAB L501.1110 >60 mL/min Normal EST GFR 156 Result Comment: Non- GFR Calc LAB L501.1115 >60 mL/min Normal EST GFR - AA 189 Result Comment: GFR Calc LAB L501.1255 ml/min Normal Estimated CRCL 125.94 LAB L501.1300 10-20 RATIO High BUN/CRE 21.5 LAB L501.2200 8.5-10 mg/dL Low .1 CA 7.3 LAB L501.5300 136-14 mmol/L High 5 NA 146 LAB L501.5600 3.5-5. mmol/L 1 K Normal 5.0 LAB L501.5900 98-107 mmol/L High CL 118 LAB L501.6100 21.0-3 mmol/L 2.0 CO2 Normal 21.0 LAB L501.6200 5-15 GAP Normal 7 Performed By: #### L500.2500 #### [facility] [address] [place], [address] MAGNESIUM Collected: 12/17/2017 Status: F Source: [place] 6:30 PM [facility] REPOSITORY TYPE CODE TESTS RESULT OUT OF RANGE REFERENCE UNITS LAB L501.5200 1.6-2.6 mg/dL High MG 2.9 Performed By: #### L501.5200 #### [facility] [address] [place], [address] BASIC METABOLIC Collected: 12/17/2017 Status: F Source: [place] PROFILE (BMP) 1:00 PM [facility] REPOSITORY TYPE CODE TESTS RESULT OUT OF RANGE REFERENCE UNITS LAB L501.0100 74-106 mg/dL Normal GLU 93 Result Comment: Please note revised GLUCOSE reference range effective 2017. LAB L501.1000 7-18 mg/dL Normal BUN 9 LAB L501.1100 0.55-1.02 mg/dL Low CREAT,SERUM 0.44 Result Comment: The validity of the calculated GFR AND GFRAA in patients over 70 years has not been determined. Clinical correlation is essential. LAB L501.1110 >60 mL/min Normal EST GFR 183 Result Comment: Non- GFR Calc LAB L501.1115 >60 mL/min Normal EST GFR - AA 221 Result Comment: GFR Calc LAB L501.1255 ml/min Normal Estimated CRCL 184.56 LAB L501.1300 10-20 RATIO High BUN/CRE 20.2 LAB L501.2200 8.5-10 mg/dL Low .1 CA 7.4 LAB L501.5300 136-14 mmol/L High 5 NA 146 LAB L501.5600 3.5-5. mmol/L 1 K Normal 3.9 LAB L501.5900 98-107 mmol/L High CL 116 LAB L501.6100 21.0-3 mmol/L Low 2.0 CO2 20.0 LAB L501.6200 5-15 GAP Normal 10 Performed By: #### L500.2500 #### [facility] [address] [place], [address] MAGNESIUM Collected: 12/17/2017 Status: F Source: [place] 1:00 PM [facility] REPOSITORY TYPE CODE TESTS RESULT OUT OF RANGE REFERENCE UNITS LAB L501.5200 1.6-2.6 mg/dL Normal MG 1.8 Performed By: #### L501.5200, L501.2300 #### [facility] [address] [place], [address] PHOSPHORUS Collected: 12/17/2017 Status: F Source: LIA 1:00 PM [facility] REPOSITORY TYPE CODE TESTS RESULT OUT OF RANGE REFERENCE UNITS LAB L501.2300 2.5-4.9 mg/dL Normal PHOS 3.3 Performed By: #### L501.5200, L501.2300 #### [facility] [address] [place], [address] Observed: 12/17/2017 Status: F Source: LIA CULTURE, BLOOD (WB) 9:40 AM [facility] REPOSITORY Has pt arrived? Y BC No growth in 5 days. Performed By: #### M200.1000 #### [facility] [address] [place], [address] Observed: 12/17/2017 Status: F Source: LIA CULTURE, BLOOD (WB) 9:35 AM [facility] REPOSITORY Has pt arrived? Y BC No growth in 5 days. Performed By: #### M200.1000 #### [facility] [address] [facility]. [place], [place], [address] M R STAPH AUREUS Collected: 12/17/2017 Status: F Source: LIA DNA BY PCR 8:30 AM [facility] REPOSITORY TYPE CODE TESTS RESULT OUT OF RANGE REFERENCE UNITS LAB L8200.1100 Negative Normal MRSA Negative RESULT Performed By: #### L8200.1000 #### [facility] [address] [facility]. [place], [place], [address] Observed: 12/17/2017 Status: F Source: LIA RESPIRATORY PANEL 6:50 AM [facility] MOLECULAR REPOSITORY RP PANEL Normal Reference Range = Not Detected RESULTS CALLED TO ASHA/ICU 12/17/17 1211 Celestina Trejo. Copy of report sent to Infection Control Printer MS#[id number] 12/17/17 1212 DCANNON. ADENOVIRUS Not Detected HUMAN METAPHNEUMO Not Detected INFLUENZA A Not Detected INFLUENZA A (SUBTYPE H1) Not Detected INFLUENZA A (SUBTYPE H3) Not Detected INFLUENZA B Not Detected PARAINFLUENZA 1 Not Detected PARAINFLUENZA 2 Not Detected PARAINFLUENZA 3 Not Detected PARAINFLUENZA 4 Not Detected RHINOVIRUS Positive for RHINOVIRUS by NAAT technology RSV A Not Detected RSV B Not Detected NAAT METHOD Testing was performed using nucleic acid amplification ORGANISM 1: RHINOVIRUS Performed By: #### M100.638 #### [facility] [facility]. [place], [place], [address] CBC-COMPLETE BLOOD CNT Collected: 12/17/2017 Status: F Source: LIA NO DIFF 4:35 AM [facility] REPOSITORY TYPE CODE TESTS RESULT OUT OF RANGE REFERENCE UNITS LAB L100.1000 4.4-11.0 K/mm3 High WBC 20.6 LAB L100.1200 4.2-5.4 M/mm3 Low RBC 3.13 LAB L100.1300 12.0-15.0 g/dl Low HGB 9.1 LAB L100.1400 37-47 % Low HCT 26.7 LAB L100.1500 81-99 fL Normal MCV 85.3 LAB L100.1600 27.0-32.0 pg Normal MCH 29.1 LAB L100.1700 32-36 g/gl Normal MCHC 34.1 LAB L100.1810 11.6-14.6 % Normal RDW CV 14.1 LAB L100.1820 35.1-43.9 fl High RDW SD 44.1 LAB L100.1900 150-450 K/mm3 Normal PLT 193 LAB L100.2000 6.2-12.0 fl Normal MPV 9.5 Performed By: #### L100.0500 #### [facility] [address] [facility]. [place], [place], [id number] LIVER PROFILE Collected: 12/17/2017 Status: F Source: [place] 4:35 AM [facility] REPOSITORY TYPE CODE TESTS RESULT OUT OF RANGE REFERENCE UNITS LAB L501.1500 6.4-8.2 g/dL Low T PROT 5.4 LAB L501.1800 3.2-5.0 g/dL Low ALB 1.9 LAB L501.1950 2.2-4.2 g/dL Normal GLOB 3.5 LAB L501.4100 15-37 U/L Normal AST 19 LAB L501.4305 45-117 U/L Normal ALK P 58 LAB L501.4405 13-56 U/L Normal ALT 19 LAB L501.4600 0.20-1.00 mg/dL Normal T BILI 0.40 LAB L501.4700 0.00-0.30 mg/dL Normal D BILI 0.21 Performed By: #### L500.3400, L501.2300, L501.5200 #### [facility] [address] [place], [place], [address] PHOSPHORUS Collected: 12/17/2017 Status: F Source: [place] 4:35 AM [facility] REPOSITORY TYPE CODE TESTS RESULT OUT OF RANGE REFERENCE UNITS LAB L501.2300 2.5-4.9 mg/dL Low PHOS 2.1 Performed By: #### L500.3400, L501.2300, L501.5200 #### [facility] [address] [place], [address] MAGNESIUM Collected: 12/17/2017 Status: F Source: LIA 4:35 AM [facility] REPOSITORY TYPE CODE TESTS RESULT OUT OF RANGE REFERENCE UNITS LAB L501.5200 1.6-2.6 mg/dL Normal MG 1.7 Performed By: #### L500.3400, L501.2300, L501.5200 #### [facility] [address] [place], [address] BASIC METABOLIC Collected: 12/17/2017 Status: F Source: LIA PROFILE (BMP) 4:35 AM [facility] REPOSITORY TYPE CODE TESTS RESULT OUT OF RANGE REFERENCE UNITS LAB L501.0100 74-106 mg/dL Normal GLU 82 Result Comment: Please note revised GLUCOSE reference range effective 2017. LAB L501.1000 7-18 mg/dL Normal BUN 9 LAB L501.1100 0.55-1.02 mg/dL Low CREAT,SERUM 0.53 Result Comment: The validity of the calculated GFR AND GFRAA in patients over 70 years has not been determined. Clinical correlation is essential. LAB L501.1110 >60 mL/min Normal EST GFR 149 Result Comment: Non- GFR Calc LAB L501.1115 >60 mL/min Normal EST GFR - AA 180 Result Comment: GFR Calc LAB L501.1255 ml/min Normal Estimated CRCL 121.70 LAB L501.1300 10-20 RATIO BUN/CRE Normal 16.9 LAB L501.2200 8.5-10 mg/dL Low .1 CA 6.7 LAB L501.5300 136-14 mmol/L 5 NA Normal 144 LAB L501.5600 3.5-5. mmol/L Low 1 K 3.2 LAB L501.5900 98-107 mmol/L High CL 110 LAB L501.6100 21.0-3 mmol/L 2.0 CO2 Normal 23.0 LAB L501.6200 5-15 GAP Normal 11 Performed By: #### L500.2500 #### [facility] [address] [place], [address] LACTIC ACID Collected: 12/16/2017 Status: F Source: [place] 9:45 PM [facility] REPOSITORY Order Comment: Yes/No query for Sepsis Lactate Rule Y TYPE CODE TESTS RESULT OUT OF RANGE REFERENCE UNITS LAB L503.6005 0.4-2.0 mmol/L Normal LACTIC ACID 1.0 Performed By: #### L503.6005 #### [facility] [address] [place], [address] CPK TOTAL, CREATINE Collected: 12/16/2017 Status: F Source: LIA KINASE 9:36 PM [facility] REPOSITORY Order Comment: Comments: DC when propofol is d/c'd Comments: DC when propofol is d/c'd TYPE CODE TESTS RESULT OUT OF RANGE REFERENCE UNITS LAB L501.3620 26-192 U/L Normal CPK TOTAL 124 Performed By: #### L501.3620, L501.5000 #### [facility] [address] [place], [address] TRIGLYCERIDES Collected: 12/16/2017 Status: F Source: [place]IA 9:36 PM [facility] REPOSITORY Order Comment: Comments: DC when propofol is d/c'd Comments: DC when propofol is d/c'd TYPE CODE TESTS RESULT OUT OF RANGE REFERENCE UNITS LAB L501.5000 mg/dL Normal TRIG 79 Result Comment: The drugs N-Acetylcysteine and Metamizole may falsely depress this assay. Serum Triglycerides Reference Interval Normal <150 mg/dL Borderline high 150 - 199 mg/dL High 200 - 499 mg/dL Very High > or = 500 mg/dL Performed By: #### L501.3620, L501.5000 #### [facility] [address] [place], [address] LACTIC ACID Collected: 12/16/2017 Status: F Source: LIA 8:23 PM [facility] REPOSITORY TYPE CODE TESTS RESULT OUT OF RANGE REFERENCE UNITS LAB L503.6005 0.4-2.0 mmol/L Normal LACTIC ACID 1.2 Performed By: #### L503.6005 #### [facility] [address] [place], [address] HISTORY AND PHYSICAL Observed: 12/16/2017 Status: F Source: [place] EXAM 6:58 PM [facility] REPOSITORY [facility] Medical Records Department [address] [place] [address] History and Physical 12/16/17 1849 MR#: [id number] Acct: [id number] Name: MARIA T DALLAS Rep #: [id number] : 1995 22 From: Cody Corey DO PCP: Care Physician, No Primary Status: ADM IN Y Location: ICU ICU-1 Problem List (1) Severe sepsis Status: Acute (2) UTI (urinary tract infection) Status: Acute (3) Toxic encephalopathy Status: Acute History of Present Illness Date of Admission: 12/16/17 Chief Complaint: confusion The patient is a 22 year old F presents from home with paranoid behavior. Patient was also having pressured speech. Patient was brought in by family to the emergency room and was having some paranoid delusions saying that garment when she did and wants alcoholics and drug addicts to . Patient was verbal and profoundly agitated. Patient was electively intubated this patient was a potential threat to herself as of the as well as others. Patient was put on propofol and then her blood pressure dropped down into the 70s. Patient then was started on ketamine. Patient had a central line placed in the emergency room and a lumbar puncture performed. Patient was having a fever and concern was for sepsis source. Patient was too confused initially to provide any history. [] Past Medical History Past Medical History (Chronic Problems): Chronic Problems Borderline personality disorder (Chronic) Depression (Chronic) Drug abuse (Chronic) heroin and cocaine Bipolar disorder (Chronic) Allergies nickel [Nickel] Allergy (Verified 12/16/17 14:55) Unknown Penicillins Allergy (Verified 12/16/17 14:55) Shortness of breath doxycycline Adverse Reaction (Verified 12/16/17 14:55) Vomiting metronidazole [From Flagyl] Adverse Reaction (Verified 12/16/17 14:55) Upset Stomach sulfamethoxazole [From Bactrim] Adverse Reaction (Verified 12/16/17 14:55) Upset Stomach trimethoprim [From Bactrim] Adverse Reaction (Verified 12/16/17 14:55) Upset Stomach Home Medications: Ambulatory Orders Medication Instructions Recorded Acetaminophen [Tylenol Tablet] 650 mg PO Q4H PRN PRN #100 tab 10/02/17 Acyclovir [Zovirax] 400 mg PO BID #60 tab 10/02/17 Surgical History: noncontributory Psychiatric History: Bipolar - maybe...there is a question talon after BPD on the notes from the counselling center. she carries a definite diagnosis of Borderline personality disorder., Depression DISTANCE LEARNING PROGRAM COORDINATOR History: No pertinent DISTANCE LEARNING PROGRAM COORDINATOR history Smoking Status: Current every day smoker Drugs: Cocaine, Heroin - *Family History Maternal History Items: - - Drug abuse Paternal History Items: No pertinent history Review of Systems Unable to obtain accurate/complete ROS d/t: Unable to obtain at this time as patient is intubated and sedated. VTE Information - Inpt Only VTE Present on Admission: No VTE Mechan Device Prophylaxis: SCD's VTE Pharm Prophylaxis ordered?: Yes Patient Problems: Active and Suspected Problems Severe sepsis (Acute) UTI (urinary tract infection) (Acute) Toxic encephalopathy (Acute) - Physical Exam General: - - Debated and sedated. HEENT: Atraumatic, Normocephalic, - - Ecchymosis more prominently on the right. Oral: Moist Mucosa, No Gingival or Mucosal Lesions/ Ulcerations Neck: No Nodes, Thyroid Normal Size and Texture Lungs: Clear to auscultation, Normal air movement, No rhonchi, No wheeze Cardiovascular: Regular rate, Regular Rhythm, Normal S1, Normal S2, No murmurs Abdomen: Bowel Sounds Present, Soft, Non Tender, Non-Distended, No Hepato-splenomegaly Extremities: No edema, No Calf Tenderness Skin: No rashes, No breakdown Musculoskeletal: No Tenderness to Palpation of Joints or Extremities, No Muscle Wasting Neurological: Deep Tendon Reflexes 2+/4 and Symmetrical, - - No clonus. Psych/Mental Status: - - Intubated and sedated. Vital Signs Temp Pulse Resp BP Pulse Ox 35.9 C L 127 H 14 121/99 H 98 12/16/17 18:29 12/16/17 18:29 12/16/17 18:29 12/16/17 18:29 12/16/17 18:29 Oxygen Delivery Method Mechanical Ventilator Weight: 42 kg Body Mass Index (BMI) 16.4 Laboratory Tests Past 24 Hrs WBC 29.2 H WBC WBC RBC Hgb Hct MCV WBC RBC Hgb Hct MCV MCH MCHC RDW RDW Differential Plt Count MPV Immature Gran % (Auto) Neut % (Auto) Lymph % (Auto) Clinical Impression(s) from Imaging Studies Chest X-Ray 12/16/17 15:02 IMPRESSION: Normal x-ray examination of the chest. Electronically Signed: Leslie Orozco MD at 15:27 EDT Tel , Service support , Brain CT 12/16/17 15:48 IMPRESSION: No acute intracranial abnormality. Electronically Signed: Shad Slade, at 17:21 EDT Tel , Service support , Chest X-Ray 12/16/17 16:00 IMPRESSION: Satisfactory position of the support lines and tubes. No acute thoracic pathology. Electronically Signed: Shad Slade, at 16:29 EDT Tel , Service support , Assessment/Plan All Active Problems Severe sepsis (Acute) UTI (urinary tract infection) (Acute) Toxic encephalopathy (Acute) Opiate withdrawal (Acute) Overdose (Resolved) 1. Severe sepsis * Present on admission * Suspected UTI * Lumbar puncture performed and preliminary results pending at this time * Given there may be a possibility with meningitis with the patient's confusion will continue with vancomycin and ceftriaxone * But if lumbar puncture appears negative then would discontinue the vancomycin. * Follow-up blood, urine and spinal fluid cultures. * IV fluids * Reevaluate lactic acid 2. UTI * As above 3. Toxic encephalopathy * Drug screen positive for opiates and amphetamines * Given the bizarre behavior would be concerned about synthetic drugs such as spice or bath salts which can cause paranoia but also not show up in a drug screen * Need to rule out other metabolic causes such as meningitis, however. * Patient intubated for was inconsolable. * Critical care management's and to further facilitate care * Continue with ketamine 4. Polysubstance abuse * Complicates care * Would not be an ideal candidate for Subutex given the patient's prior behavior and her current confusion at this time * Patient would be a high risk for diversion of Subutex. 5. DVT prophylaxis with SCDs and Lovenox I attempted lumbar puncture under sterile procedures but was unable to assess any spinal fluid. Procedure was performed by Dr. Landaverde. Please refer to his Neer's note for further details. Opening pressure was around 15 mmHg and fluid was clear. Code Visit Inpatient E AND M: [id number] Init Hosp L3 12/16/17 6828 <Electronically signed by Cody Corey DO> Date Cody Corey DO Cosigner Signature: Date (if applicable) CC: No Primary Care Physician; Cody Corey DO Signed SPINAL FLUID CELL Collected: 12/16/2017 Status: C Source: LIA COUNT+DIFF 6:40 PM [facility] REPOSITORY Order Comment: Order Date: 12/16/17 Specimen Source? Tube #1 Has pt arrived? Y TYPE CODE TESTS RESULT OUT OF RANGE REFERENCE UNITS LAB L200.2695 0.000-0.000 10 3/uL High TC CSF 0.001 Result Comment: This is the Total Number of Nucleated Cell Types in the Body Fluid. LAB L200.2750 0.000-0.000 10 3/uL High WBC,CSF 0.001 LAB L200.3000 Normal PATH REV Reviewed Result Comment: Acellular specimen. Carlos Malave M.D. 12/18/17 AMENDED REPORT 12/18/17 1250 PATH REV previously reported as: May follow LAB L200.3510 % BF Normal PMN WBC% 0.0 LAB L200.3515 % BF MN Normal WBC% 100.0 LAB L200.3520 10 3/uL BF MN Normal WBC# 0.001 LAB L200.3525 10 3/uL BF Normal PMN WBC# 0.000 LAB L200.2500 4 Normal TESTED TUBE # LAB L200.2600 Colorless CSF Normal Color COLORLESS LAB L200.2650 Clear Normal APPEARANCE CSF CLEAR LAB L200.2700 None seen /mm-3 0 Normal RBC,CSF Performed By: #### L200.0100 #### [facility] [address] [facility] [place], [address] GLUCOSE SPINAL FLUID Collected: 12/16/2017 Status: F Source: [place] 6:40 PM [facility] REPOSITORY Order Comment: Order Date: 12/16/17 Comments: Tube #2 Has pt arrived? Y TYPE CODE TESTS RESULT OUT OF RANGE REFERENCE UNITS LAB L501.0400 40-75 mg/dL Normal GLU SPINAL 70 FLD Performed By: #### L501.0400 #### [facility] [address] [facility] [place], [address] PROTEIN SPINAL FLUID Collected: 12/16/2017 Status: F Source: [place]IA 6:40 PM [facility] REPOSITORY Order Comment: Order Date: 12/16/17 Has pt arrived? Y Comments: Tube #2 TYPE CODE TESTS RESULT OUT OF RANGE REFERENCE UNITS LAB L501.1600 15.0-45.0 mg/dL Normal PROTEIN CSF 23.0 Performed By: #### L501.1600 #### [facility] [address] [facility] [place], [address] Observed: 12/16/2017 Status: F Source: LIA CULTURE, CSF 6:40 PM [facility] REPOSITORY Order Date: 12/16/17 Has pt arrived? Y Comments: Tube #3 Gram Stain Centrifuged Specimen? Culture performed on centrifuged specimen Gram Stain No organisms seen Rare White Blood Cells CSF Culture No growth in 72 hours. Performed By: #### M100.0700 #### [facility] [address] [facility] [place], [address] EMERGENCY DEPARTMENT Observed: 12/16/2017 Status: F Source: LIA SUMMARY 6:37 PM [facility] REPOSITORY [facility] Medical Records Department [address] [place] [id number] Emergency Department Summary 12/16/17 1509 MR#: [id number] Acct: [id number] Name: MARIA T DALLAS Rep #: [id number] : 1995 22 From: Toby Landaverde MD PCP: Care Physician, No Primary Status: ADM IN - ER Visit Summary Date of Service: 12/16/17 Chief Complaint: Triage chief complaint mental health History of Present Illness: The patient is a 22 F who has history of cocaine, heroin (IV drug use) who was brought to the emergency department because of her behavior. She is argumentative, there is paranoid ideation, speech is pressured and her thought process/reasoning is skewed. Patient states that the government wants you to . She was asked what she meant by this and she stated the government wants alcoholics and drug addicts to . Patient was redirected several times because she would refer to prior ER or hospital visits. Unable to obtain if this is secondary to drug use, infectious encephalopathy versus other reasons. She does admit to IV heroin use and has recent injection site right antecubital fossa. Physical Examination: Vital signs are abnormal. Blood pressure is 151/96, heart rate 142, respiratory rate 20 and temperature 101.5. Head is atraumatic normocephalic. There are wounds noted which appear to be self-inflicted i.e. picking. Pupils are dilated. They are reactive. TMs appear normal. Nares patent. Mucosa dry. Uvula midline. Trachea midline. There is no stridor. Heart is rapid and regular unable to determine if there is an obvious murmur since patient will not remain silent. Lungs have symmetric breath sounds with no egophony or increased vocal fremitus. Abdomen is soft. There is no evidence of cellulitis or decubiti. She is alert. She is agitated. She thought processes abnormal. She moves all extremities. DTRs are 2+ symmetric with no clonus. She withdraws when assessing for Babinski sign. Will not cooperate to perform finger-nose to finger. Test Results: EKG reveals a sinus tachycardia 126. There is no ossific ST-T wave changes noted. [place] interval is normal. Respirations normal. QT interval is normal. Poneto is normal. Portable chest x-ray reveals normal chronic silhouette, mediastinum, lung parenchyma and osseous structures. Repeat chest x-ray after intubation reveals proper position of endotracheal tube and orogastric tube. No interval change. Portable chest x-ray obtained after placement of right subclavian line which reveals no evidence of pneumothorax, hemothorax and proper position of line. White count is elevated 29.2 thousand with 91 segs. Electro lites panel is marked for sodium 133, potassium 2.8 and chloride of 95. Glucose is slightly elevated 126. Lactate is elevated 2.7. Urine is consistent with infection. Emergency Department Course and Treatment: Patient febrile with abnormal vital signs and abnormal thought process. This may represent psychosis secondary to heroin/cocaine use versus infectious encephalopathy. Need to evaluate for bacterial endocarditis. With change in mental status meningitis must be considered. Sepsis workup was undertaken and patient will need admission. 3 blood cultures were obtained. With history Andof IV drug use and patient's allergies recommended antibiotics for treatment of endocarditis is vancomycin and daptomycin. Because there is concern for meningitis will add gentamicin 5 mg/kg. I was requested to go to radiology suite because patient became hypotensive. The propofol drip was discontinued. She was administered IV ketamine and an IV ketamine drip was ordered. Patient required multiple doses of propofol and ketamine by me since nursing staff is not permitted to give boluses of propofol or ketamine. Because patient was hypotensive she received 30 cc/kg bolus of normal saline. Procedure: 1. Patient was intubated by RSI technique. She was administered 20 mg of etomidate followed by 50 mg of rocuronium. She was administered propofol bolus by me and placed on a propofol drip to facilitate further testing and specifically CAT scan to evaluate for any contraindication performing lumbar puncture. 2. Right external jugular line was placed prior to intubation since patient peripheral line was dislodged and nonfunctional. This was placed by me. 3. Patient required boluses of ketamine. She was administered 200 mg of ketamine prior to placement of right subclavian line. The CMS guidelines were adhered to. The area was prepped draped sterile manner. The vessel was cannulated excessively on the way in on first attempt. Using Seldinger technique a 7.5 [place] triple-lumen was placed. Chest x-ray was obtained and confirmed proper position with no evidence of pneumothorax or hemothorax 4. Lumbar puncture was performed. L3-4 interspace was cannulated on third attempt. Fluid was clear and colorless. Opening pressure was 17 cm. Appropriate studies were obtained and Dr. Alarcon will follow the results. 5. Critical care time 76 minutes, this excludes time for procedure i.e. intubation, external jugular line, subclavian and lumbar puncture. Treatment Plan: 1. Encephalopathy 2. Severe sepsis with hypotension 3. Urinary tract infection 4. Evaluate for endocarditis 5. Evaluate for meningitis 6. Hyponatremia 7. Hypokalemia 8. IV drug use, opiates and amphetamines Disposition: [] Impression: [] This note was generated with [employer] dictation software. It may contain incorrect words, spelling, and punctuation that were not noted in review of the chart prior to signing ED Disposition - Plan for ED Patient: Chief Complaint: Mental Health What to do if you have Problems For any increased pain, shortness of breath, bleeding, nausea or vomiting, chest pain, or any unexpected problems, contact your Primary Care Provider. Call [facility] ([phone]) or report to the closest Emergency Room. Call 911 if necessary. 12/16/171836 <Electronically signed by Toby Landaverde MD> Date Toby Landaverde MD Cosigner Signature (If Indicated): Date CC: No Primary Care Physician PROTHROMBIN TIME W/INR Collected: 12/16/2017 Status: F Source: [place] 5:50 PM [facility] REPOSITORY Order Comment: REDRAW. PREVIOUS SPECIMEN REJECTED DUE TO HEMOLYZED FOR SECOND TIME. 12/16/17 1631 TYPE CODE TESTS RESULT OUT OF RANGE REFERENCE UNITS LAB L300.4150 11.7-14.9 SECONDS High PROTIME 17.5 LAB L300.4200 Normal INR 1.4 Performed By: #### L300.3900, L300.4310 #### [facility] [address] [place], [place], [address] PARTIAL THROMBOPLAST Collected: 12/16/2017 Status: F Source: [place] TIME 5:50 PM [facility] REPOSITORY Order Comment: REDRAW. PREVIOUS SPECIMEN REJECTED DUE TO HEMOLYZED FOR SECOND TIME. 12/16/17 1631 TYPE CODE TESTS RESULT OUT OF REFERENCE UNITS RANGE LAB L300.4310 24.1-36.2 Seconds High PTT 43.3 Performed By: #### L300.3900, L300.4310 #### [facility] [address] [place], [address] CXR FOR LINE PLACEMENT Observed: 12/16/2017 Status: F Source: [place] 5:21 PM [facility] REPOSITORY [facility] Imaging Services [address] [place] [address] CXR for Line Placement MR#: [id number] Acct: [id number] Name: MARIA T DALLAS Rep #: [id number] : 1995 F 22 From: Shad Slade MD PCP: Care Physician, No Primary Status: ADM IN Study: CXR for Line Placement Date of Exam: 12/16/17 Exam# [id number] Ordering Dr: Toby Landaverde MD STUDY: X-RAY CHEST REASON FOR EXAM: Female, 22 years old. Line placement. TECHNIQUE: Frontal view of the chest COMPARISON: 12/16/2017 FINDINGS: There is a right-sided central line with its tip in the superior vena cava. There is an endotracheal tube with its tip approximately 1 cm above the kj. There is an enteric tube noted with its tip in the stomach. The lungs are clear. There are no pleural effusions. There is no pneumothorax. The heart is normal in size. The visualized osseous structures are within normal limits. RAD/CXR for Line Placement IMPRESSION: Satisfactory position of the support lines and tubes. No acute thoracic pathology. Electronically Signed: Shad Slade, at 18:56 EDT Tel , Service support , CC: No Primary Care Physician; Toby Landaverde MD Cadet Deck: Signed Observed: 12/16/2017 Status: C Source: [place] CULTURE, BLOOD (WB) 4:33 PM [facility] REPOSITORY BC ANAEROBIC BOTTLE GRAM STAIN= GRAM NEGATIVE RODS RESULTS CALLED TO ANA FERNANDEZ ICU 12/17/17 0415 Ayesha Evans. REPORT READ BACK BY SAME. ORGANISM 1: Escherichia coli Amount Growth Growth Escherichia coli: REACTION Amoxacillin/Clavulanic Acid $ >=32 R Ampicillin $ >=32 R Ampicillin/Sulbactam $ >=32 R Cefazolin $ <=4 S Cefepime $ <=1 S Ceftriaxone $ <=1 S Ciprofloxacin $ <=0.25 S ESBL - Ertapenim $$$ <=0.5 S Gentamicin $ <=1 S Imipenem *NF <=0.25 S Levofloxacin $ <=0.12 S Piperacillin/Tazobactam $$ 8 S Tobramycin $ <=1 S Trimethoprim/Sulfametho $ >=320 R (NF) indicates non-formulary drug at [facility]. Approval by Infectious Disease Specialist required before non-formulary drugs may be ordered and/or dispensed. Performed By: #### M200.1000 #### [facility] [address] [place], [address] URINE DRUG SCREEN Collected: 12/16/2017 Status: F Source: LIA (MUNA) 4:23 PM [facility] REPOSITORY Order Comment: Order Date: 12/16/17 Has pt arrived? Y TYPE CODE TESTS RESULT OUT OF RANGE REFERENCE UNITS LAB L505.0075 TO BE Normal CONFIRMED Result Comment: CONFIRMATORY TESTING FOR ALL POSITIVE URINE DRUG SCREEN RESULTS WILL ONLY BE SENT OUT UPON PHYSICIAN ORDER. [facility] Screen methods provide only preliminary analytical test results. A more specific alternate chemical method must be used in order to obtain a confirmed analytical result. Gas chromatography/mass spectrometery (GC/MS) is the preferred confirmatory method. Clinical consideration and professional judgement should be applied to any drug of abuse test result, particularly when preliminary positive results are used. URINE TCA TESTING MUST BE ORDERED SEPARATELY. USE TEST MNEMONIC: [facility] LAB L505.5005 VISTA UDS PH 6 Normal LAB L505.5015 <1000 High ng/mL AMPHETAMINES POSITIVE LAB L505.5025 < 200 ng/mL BARBITIURATES Normal NEGATIVE LAB L505.5035 < 200 ng/mL BENZODIAZIPINE Normal NEGATIVE LAB L505.5045 < 300 ng/mL COCAINE Normal NEGATIVE LAB L505.5055 < 500 ng/mL ECSTACY Normal NEGATIVE LAB L505.5065 < 300 ng/mL METHADONE Normal NEGATIVE LAB L505.5075 < 300 High ng/mL OPIATES POSITIVE LAB L505.5085 < 25 ng/mL PCP Normal NEGATIVE LAB L505.5095 < 50 ng/mL THC Normal NEGATIVE Performed By: #### L505.5000 #### [facility] [address] [place], [address] URINALYSIS, COMPLETE Collected: 12/16/2017 Status: F Source: [place] 4:23 PM [facility] REPOSITORY Order Comment: Order Date: 12/16/17 Has pt arrived? Y How was Urine Obtained? PANEL EDGE SEALER TO SPECIFY TYPE CODE TESTS RESULT OUT OF RANGE REFERENCE UNITS LAB L400.3000 Yellow COLOR Normal Yellow LAB L400.3050 Clear Normal CLARITY Sl. Cloudy LAB L400.3200 Normal mg/dl Normal GLUCOSE, UR Normal LAB L400.3300 Negative mg/dL Normal BILIRUBIN URINE Negative LAB L400.3400 Negative mg/dl High KETONE UR 150 Result Comment: CRITICAL VALUE *H RESULTS CALLED TO ESPERANZA 12/16/17 Dayne Gates. REPORT READ BACK BY SAME. LAB L400.3465 1.002-1.030 SP.GR. Normal DIPSTX 1.010 LAB L400.3550 5.0 - 8.0 pH UR Normal 6.0 LAB L400.3600 Negative mg/dl PROT High DIPSTX 100 LAB L400.3700 Normal mg/dl UROBILI Normal Normal LAB L400.3750 Negative NITRITE High UR Positive LAB L400.3780 Negative /ul OCCULT High BLOOD-UR 25 LAB L400.3800 Negative /ul LEUK High ESTERASE 500 LAB L400.4050 0-5 /hpf WBC Normal 10-25 SEEN LAB L400.4100 0-5 /hpf RBC-UA Normal 0-5 SEEN LAB L400.4150 5-10 /hpf SQUAM Normal EPI 0-5 SEEN LAB L400.4300 None Seen /hpf BACTERIA Normal 1+ LAB L400.4350 <or=2+ /hpf MUCUS, Normal URINE 0 SEEN LAB L400.5100 None Seen /hpf Normal TRICHOMONAS 0-5 SEEN Performed By: #### L400.0001 #### [facility] [address] [place], [address] Observed: 12/16/2017 Status: F Source: [place]IA CULTURE, URINE 4:23 PM [facility] REPOSITORY Order Date: 12/16/17 Has pt arrived? Y Urine Culture ORGANISM 1: Escherichia coli Celeste Count >100,000 Escherichia coli: REACTION Amoxacillin/Clavulanic Acid $ >=32 R Ampicillin $ >=32 R Ampicillin/Sulbactam $ >=32 R Cefazolin $ <=4 S Cefepime $ <=1 S Ceftriaxone $ <=1 S Ciprofloxacin $ <=0.25 S ESBL - Ertapenim $$$ <=0.5 S Gentamicin $ <=1 S Imipenem *NF <=0.25 S Levofloxacin $ <=0.12 S Nitrofurantoin $ <=16 S Piperacillin/Tazobactam $$ 8 S Tobramycin $ <=1 S Trimethoprim/Sulfametho $ >=320 R (NF) indicates non-formulary drug at [facility]. Approval by Infectious Disease Specialist required before non-formulary drugs may be ordered and/or dispensed. Performed By: #### M100.0650 #### [facility] [address] [place], [address] BLOOD GASES BY CPS Collected: 12/16/2017 Status: F Source: [place] 4:22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 3350 (MIRALAX, GLYCOLAX) 17 gram/dose powder Take 17 g by mouth once daily. gabapentin (NEURONTIN) 400 mg capsule 600 mg three times daily. topiramate (TOPAMAX) 200 mg tablet lamoTRIgine (LAMICTAL) 25 mg tablet cloNIDine-chlorthalidone (CLORPRES) 0.1-15 mg per tablet Take 1 tablet by mouth twice daily. FAMILY HISTORY Problem Relation Age of Onset - None Mother - None Father - Allergies Paternal Grandmother allergic to Pcn - Diabetes Paternal Grandmother Also P-Aunts and Uncles - Hypertension Paternal Grandfather - Allergies Maternal Grandmother reaction to sugar in alcoholic beverages Social History Substance Use Topics - Smoking status: Current Every Day Smoker Packs/day: 1.00 Years: 2.00 Types: Cigarettes - Smokeless tobacco: Never Used - Alcohol use No PHYSICAL EXAM BP 100/80 Pulse 86 Temp 36.8 ?C (98.3 ?F) (Temporal Artery) Wt 46.4 kg (102 lb 6.4 oz) SpO2 100% BMI 20.51 kg/m? Appearance: tense posture Mood: angry Affect: hostile Insight: poor Judgment: poor ASSESSMENT/PLAN: 1. Bipolar affective disorder, remission status unspecified (HCC) - ICD9: 296.80, ICD10: F31.9 (primary diagnosis) History of drug abuse and extensive psychiatric issues. Refills on Gabapentin and topamax have been managed by psychiatry who patient refuses to see any longer. Discussed refills with patient's PCP, advised will not refill Gabapentin and needs to come from psychiatry. Will refill Topamax and Clonidine for short term until patient finds psychiatrist. Patient initially patient was pleasant and cooperative, when she was advised that we would not be filling gabapentin she became irate and verbally abusive, using foul language. Explained to patient numerous times what the plan was and why, continues to argue about Gabapentin. Given list of names of psychiatrists, patient says they are all to far away. States she will just get the Gabapentin off the streets. Topamax and Clonidine refilled. Patient left the room, cussing and yelling. Proceeded to PSR desk and continued to be verbally abusive. Requested Ganta to be removed as her PCP. 2. Opioid abuse (HCC) - ICD9: 305.50, ICD10: F11.10 As above Prescription instructions reviewed with patient as applicable. Potential red flag symptoms discussed with the patient. Reviewed appropriate action plan to take if red flag symptoms occur. Patient agreeable to treatment plan. During this patient visit I have spent approximately 30 minutes in counseling regarding treatment options and medications. Aye Naylor APRN.QUALITY CHECKER Referring Provider: SELF [200] Allergies As of Date: 11/17/2017 Noted Allergy Reaction fragrance mix [Other] 12/14/2007 2 - Rash AMOXICILLIN 04/06/2005 2 - Rash DOXYCYCLINE 06/25/2009 8 - GI Upset FLAGYL (METRONIDAZOLE HCL) 10/10/2011 8 - GI Upset Comments: Nausea metal [Other] 04/06/2005 2 - Rash NAPROXEN 01/31/2012 8 - GI Upset Comments: Headache/GI upset Trish [Other] 04/06/2005 2 - Rash PENICILLINS 04/06/2005 4 - Hives ULTRAM (TRAMADOL HCL) 10/10/2011 14 - Other: See Comments Comments: Headache Date Reviewed: 11/17/2017 Reviewed by: Marla Solis Certified Hand Therapist - Fully Assessed Reason for Visit: Rx Refills [128] Reason For Visit History Recorded Primary Visit Diagnosis:Bipolar affective disorder, remission status unspecified (HCC) [F31.9] Other Visit Diagnosis:Opioid abuse (HCC) [F11.10] Order(s):polyethylene glycol 3350 (MIRALAX, GLYCOLAX) 17 gram/dose powderTake 17 g by mouth once daily.Disp: 1 BottleRfl: 0 cloNIDine HCl (CATAPRES) 0.1 mg tabletTake 1 tablet by mouth three times daily as needed.Disp: 90 tabletRfl: 2 topiramate (TOPAMAX) 200 mg tabletTake 1 tablet by mouth twice daily.Disp: 30 tabletRfl: 2 Prescriptions as of 11/17/2017 Sig: CLONIDINE HCL 0.1 MG TABLET Take 1 tablet by mouth three * IBUPROFEN 600 MG TABLET Take 1 tablet by mouth every * ACETAMINOPHEN 325 MG TABLET EVERY 4 HOURS NEEDED ACYCLOVIR 400 MG TABLET Take 1 tablet by mouth twice * GABAPENTIN 400 MG CAPSULE 600 mg three times daily. POLYETHYLENE GLYCOL 3350 17 G* Take 17 g by mouth once daily. 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] INVALID FOR*04/17/2017 Contact dermatitis and other eczema, due to uns*INVALID FOR*04/17/2017 Unspecified pruritic disorder [L29.9] INVALID FOR*04/17/2017 EXCORIATION///SUPERFICIAL INJURY NEC [T07.XXXA] INVALID FOR* XEROSIS///SEBACEOUS GLAND DIS NEC [L73.8] INVALID FOR* Insect bite NEC [W57.XXXA] INVALID FOR*03/03/2011 Scabies [B86] INVALID FOR*03/03/2011 NONSPECIF SKIN ERUPT NEC [R21] INVALID FOR* OTHER ATOPIC DERMATITIS [L20.89] INVALID FOR* Seborrheic dermatitis, unspecified [L21.9] INVALID FOR*12/16/2014 Ganglion, unspecified [M67.40] INVALID FOR*04/17/2017 Bipolar disorder, unspecified (HCC) [F31.9] INVALID FOR*04/17/2017 Genital herpes [A60.00] INVALID FOR* Migraines [G43.909] INVALID FOR* More... Anxiety [F41.9] INVALID FOR* More... Back ache [M54.9] INVALID FOR* Bipolar affective disorder (HCC) [F31.9] INVALID FOR* Opioid dependence with withdrawal (HCC) [F11.23]INVALID FOR* Fissure in ano [K60.2] INVALID FOR* Opioid abuse [F11.10] INVALID FOR* TMJ (dislocation of temporomandibular joint) [S*INVALID FOR* Axillary abscess [L02.419] INVALID FOR* Unplanned [Z34.90] INVALID FOR* More... Tobacco use in [O99.330] INVALID FOR* More... History of suicidal ideation [Z86.59] INVALID FOR* More... History of herpes genitalis [Z86.19] INVALID FOR* More... Pelvic pain in [O26.899, R10.2] INVALID FOR* More... History of drug abuse [Z87.898] INVALID FOR* More... Patient requested diagnostic testing [Z01.89] INVALID FOR* More... Prescriptions ordered this encounter Disp Refills Start End POLYETHYLENE GLYCOL 3350 17 GRAM/DOS* 1 Kalia* 0 11/17/2017 Route: ORAL Sig: Take 17 g by mouth once daily. CLONIDINE HCL 0.1 MG TABLET 90 t* 2 11/17/2017 Route: ORAL Sig: Take 1 tablet by mouth three times daily as needed. TOPIRAMATE 200 MG TABLET 30 t* 2 11/17/2017 Route: ORAL Sig: Take 1 tablet by mouth twice daily. Medications Discontinued During This Encounter prochlorperazine (COMPAZINE) 10 mg t* 30 t* 1 04/17/2017 11/17/2017 Route: ORAL Sig: Take 1 tablet by mouth every 6 hours as needed (nausea). Patient not taking: Reported on 09/11/2017 Disc: Discontinued by Patient Oyltvkik-Nh-Csl-Fe-FA (PREN* 30 t* 12 04/17/2017 11/17/2017 Route: ORAL Sig: Take 1 tablet by mouth once daily. Patient not taking: Reported on 09/11/2017 Disc: Discontinued by Patient Melatonin 5 mg cap 11/17/2017 Class: Historical Med Route: ORAL Sig: Take by mouth. Disc: Discontinued by Patient LYSINE ORAL 11/17/2017 Class: Historical Med Route: ORAL Sig: Take by mouth. Disc: Discontinued by Patient docusate sodium (COLACE) 100 mg caps* 30 c* 3 04/07/2017 11/17/2017 Route: ORAL Sig: Take 1 capsule by mouth once daily. Disc: Discontinued by Patient topiramate (TOPAMAX) 200 mg tablet 07/13/2015 11/17/2017 Class: Historical Med Sig: Disc: Reason for discontinue is not on file. cloNIDine-chlorthalidone (CLORPRES) * 11/17/2017 Class: Historical Med Route: ORAL Sig: Take 1 tablet by mouth twice daily. Disc: Reason for discontinue is not on file. polyethylene glycol 3350 (MIRALAX, G* 1 Kalia* 0 04/07/2017 11/17/2017 Route: ORAL Sig: Take 17 g by mouth once daily. Disc: Reason for discontinue is not on file. cloNIDine HCl (CATAPRES) 0.1 mg tabl* 90 t* 2 09/09/2017 11/17/2017 Route: ORAL Sig: Take 1 tablet by mouth three times daily as needed. Disc: Reason for discontinue is not on file. Encounter Status:Closed by AYE NAYLOR CNP on 11/20/17 DISCHARGE SUMMARY Observed: 10/05/2017 Status: F Source: [place] 10:41 AM [facility] REPOSITORY [facility] Medical Records Department [address] [place] [address] Discharge Summary 10/05/17 1029 MR#: [id number] Acct: [id number] Name: MARIA T DALLAS Rep #: [id number] : 1995 22 From: Talon Mcnulty DO PCP: Sean Franz MD Status: DIS IN Y [place] [facility] [id number] Discharge Date and Diagnosis Date of Admission: 09/29/17 Date of Discharge: 10/02/17 - Primary Discharge Diagnosis #1 acute withdrawal from opiates #2 cocaine abuse #3 opiate abuse #4 bipolar disorder #5 possible seizure secondary to drug withdrawal - Secondary Discharge Diagnosis Chronic Problems Borderline personality disorder (Chronic) Depression (Chronic) Drug abuse (Chronic) heroin and cocaine Bipolar disorder (Chronic) Hospital Course and Treatment Operations: None Procedures: None Summary of Care Provided: The patient is a 22 year old F was seen in the emergency room at [facility] requesting detox from opiates, she had reported that she may have had a seizure at home. Patient also had psychiatric disorders including bipolar disorder and possible borderline personality disorder. Patient was agitated and in the emergency room, she was admitted to [place] [address] and placed on medications including Seroquel which she refused to take. Patient had no major complications during her hospital stay, arrangements were made for her to go to a inpatient drug rehab facility, she was not a medical stabilization patient during this hospital stay however. On 10/02/17, patient was seen and examined, I had a long conversation with her about medications and I decided to place her on several medications for bipolar disorder, patient states that she had been on Lamictal before and had had no problems with this medication. She also requested Lexapro which I agreed to place her on. Patient was discharged on 10/02/17 in stable condition Discharge Activity: Return to Normal Activity Weight Bearing Status: Full weight bearing Home Medications: Medications to take at Discharge Acetaminophen [Tylenol Tablet] 650 mg PO Q4H PRN PRN #100 tab 10/02/17 Acyclovir [Zovirax] 400 mg PO BID #60 tab 10/02/17 Clonidine HCl 0.05 mg PO TID PRN PRN #45 tab 10/02/17 Escitalopram Oxalate [Lexapro] 10 mg PO DAILY #30 tab 10/02/17 Gabapentin [Neurontin] 600 mg PO TID #90 tab 10/02/17 Ibuprofen 600 mg PO TID #90 tab 10/02/17 Lamotrigine [Lamictal] 25 mg PO DAILY #60 tab 10/02/17 Following Prescrptions Were Given to Patient: Acetaminophen [Tylenol Tablet] 650 mg PO Q4H PRN PRN #100 tab PRN Reason: Temp>99.1F Clonidine HCl 0.05 mg PO TID PRN PRN #45 tab PRN Reason: Restlessness Escitalopram Oxalate [Lexapro] 10 mg PO DAILY #30 tab Lamotrigine [Lamictal] 25 mg PO DAILY #60 tab Acyclovir [Zovirax] 400 mg PO BID #60 tab Gabapentin [Neurontin] 600 mg PO TID #90 tab Ibuprofen 600 mg PO TID #90 tab Primary Care Physician: Sean Franz MD [Primary Care Provider] - Please follow up with your Primary Care Physician in: when your detox program is finished Disposition: Inpt Rehab Unit/Facility Minutes spent on discharge:: 32 Patient Condition:: Stable Medical Necessity - Tobacco Use Smoking Status: Current every day smoker Tobacco Use: Cigarettes Meaningful Use Info Meaningful Use Diagnoses (Choose all that apply): None applicable Code Visit Inpatient E AND M: 10935 Disch Hosp 10/05/17 1041 <Electronically signed by Talon Mcnulty DO> Date Talon Mcnulty DO Cosigner Signature (if applicable): Date CC: Sean Franz MD; Talon Mcnulty DO Signed DISCHARGE INSTRUCTION Observed: 10/02/2017 Status: F Source: [place] 10:00 AM [facility] REPOSITORY [facility] Medical Records Department [address] [place] [address] Instructions for Home/Discharge Instructions 10/02/17 0958 MR#: [id number] Acct: [id number] Name: MARIA T DALLAS Rep #: [id number] : 1995 22 From: Talon Mcnulty DO PCP: Sean Franz MD Status: ADM IN You will use the following diet at home:: No restrictions Your food should be the consistency of: Regular Your liquids should be the consistency of: Regular/Thin Discharge Activity: Return to Normal Activity Weight Bearing Status: Full weight bearing Allergies/Adverse Reactions: Allergies nickel [Nickel] Allergy (Verified 09/28/17 21:43) Unknown Penicillins Allergy (Verified 09/28/17 21:43) Shortness of breath doxycycline Adverse Reaction (Verified 09/28/17 21:43) Vomiting metronidazole [From Flagyl] Adverse Reaction (Verified 09/28/17 21:43) Upset Stomach sulfamethoxazole [From Bactrim] Adverse Reaction (Verified 09/28/17 21:43) Upset Stomach trimethoprim [From Bactrim] Adverse Reaction (Verified 09/28/17 21:43) Upset Stomach Medications to take at Discharge Acetaminophen [Tylenol Tablet] 650 mg PO Q4H PRN PRN #100 tab 10/02/17 Acyclovir [Zovirax] 400 mg PO BID #60 tab 10/02/17 Clonidine HCl 0.05 mg PO TID PRN PRN #45 tab 10/02/17 Escitalopram Oxalate [Lexapro] 10 mg PO DAILY #30 tab 10/02/17 Gabapentin [Neurontin] 600 mg PO TID #90 tab 10/02/17 Ibuprofen 600 mg PO TID #90 tab 10/02/17 Lamotrigine [Lamictal] 25 mg PO DAILY #60 tab 10/02/17 The following prescriptions were given: Acetaminophen [Tylenol Tablet] 650 mg PO Q4H PRN PRN #100 tab PRN Reason: Temp>99.1F Clonidine HCl 0.05 mg PO TID PRN PRN #45 tab PRN Reason: Restlessness Escitalopram Oxalate [Lexapro] 10 mg PO DAILY #30 tab Lamotrigine [Lamictal] 25 mg PO DAILY #60 tab Acyclovir [Zovirax] 400 mg PO BID #60 tab Gabapentin [Neurontin] 600 mg PO TID #90 tab Ibuprofen 600 mg PO TID #90 tab Primary Care Physician: Sean Franz MD [Primary Care Provider] - Please follow up with your Primary Care Physician in: when your detox program is finished Test Results: Test results from this visit will be discussed in further detail at your follow-up appointment, if applicable. 10/02/17 1000 <Electronically signed by Talon Mcnulty DO> Date Talon Mcnulty DO CC: Sean Franz MD BRAIN/HEAD WITHOUT Observed: 09/29/2017 Status: F Source: [place] CONTRAST 7:57 AM [facility] REPOSITORY [facility] Imaging Services [address] [place] [address] Brain/Head without Contrast MR#: [id number] Acct: [id number] Name: MARIA T DALLAS Rep #: [id number] : 1995 F 22 From: Jonathan Galvan MD PCP: Sean Franz MD Status: ADM IN Study: Brain/Head without Contrast Date of Exam: 09/29/17 Exam# [id number] Ordering Dr: Kalee Green DO STUDY: CT BRAIN WITHOUT CONTRAST REASON FOR EXAM: Female, 22 years old. New onset of seizures and migraine headaches. RADIATION DOSAGE (If Supplied By Facility): CTDIvol = ( 44.99 ) mGy, DLP = ( 711.75 ) mGycm TECHNIQUE: Transaxial CT imaging of the brain was performed without administration of intravenous contrast material. Individualized dose optimization techniques were used for this CT. COMPARISON: Comparison is made with prior study dated May 06, 2013. FINDINGS: Normal soft tissue structures. Normal calvarium. Normal size ventricles and extra-axial spaces for the patient's age. Normal white matter tracts of the cerebral hemispheres. Normal basal ganglia and thalami. Normal brainstem. Normal cerebellum. There is no intracranial hemorrhage. There are no findings of an acute ischemic infarction. Normal visualized paranasal sinuses. CT/Brain/Head without Contrast IMPRESSION: Normal unenhanced CT scan of the brain. Electronically Signed: Jonathan Galvan MD at 8:46 EDT Tel [phone], Service support , CC: Eugenia Green; Sean Franz MD Cadet Deck: Signed HISTORY AND PHYSICAL Observed: 09/29/2017 Status: F Source: [place] EXAM 5:10 AM [facility] REPOSITORY [facility] Medical Records Department [address] [place] [address] History and Physical 09/29/17 0007 MR#: [id number] Acct: [id number] Name: MARIA T DALLAS Rep #: [id number] : 1995 22 From: Kevon Gates MD PCP: Sean Franz MD Status: ADM IN [place] [facility] [id number] ADDENDUM by Kevon Gates MD on 09/29/17 at 0509 Code Visit Tobaaco abuse: Counselled Nicotine gum and nicotine patch ordered. Cepacol for sore tongue that patient attributes to biting tongue with seizure activity. 09/29/17 0510 <Electronically signed by Kevon Gates MD> Date Kevon Gates MD cc: Sean Franz MD; Kevon Gates MD * Signed ADDENDUM by Kevon Gates MD on 09/29/17 at 0139 Code Visit Her CIWA score at the emergency department was 25. 09/29/17 0139 <Electronically signed by Kevon Gates MD> Date Kevon Gates MD cc: Sena Franz MD; Kevon Gates MD * Signed ADDENDUM by Kevon Gates MD on 09/29/17 at 0111 Code Visit Hypokalemia Replaced. BMP in a.m. Leukocytosis- likely reactive. Urinalysis ordered. 09/29/17 0111 <Electronically signed by Kevon Gates MD> Date Kevon Gates MD cc: Sean Franz MD; Kevon Gates MD * Signed Problem List (1) Borderline personality disorder Status: Chronic (2) Depression Status: Chronic (3) Drug abuse Status: Chronic Comment: heroin and cocaine (4) Bipolar disorder Status: Chronic Qualifiers: (5) Opiate withdrawal Status: Acute History of Present Illness Date of Admission: 09/29/17 Chief Complaint: Drug withdrawal and seizure. The patient is a 22 year old F with a significant history of borderline personality disorder, depression and IV drug use who has attempted multiple drug rehabilitation without success presenting with symptoms of drug withdrawal. The patient reports generalized body pain and restlessness. Also reportedly she had a seizure on the day of her presentation. Reportedly she used both IV cocaine and IV heroin within a day of her admission. Notably, patient was admitted in November of last year under the new vision program but did not complete the program. Past Medical History Past Medical History (Chronic Problems): Chronic Problems Borderline personality disorder (Chronic) Depression (Chronic) Drug abuse (Chronic) heroin and cocaine Bipolar disorder (Chronic) Allergies nickel [Nickel] Allergy (Verified 09/28/17 21:43) Unknown Penicillins Allergy (Verified 09/28/17 21:43) Shortness of breath doxycycline Adverse Reaction (Verified 09/28/17 21:43) Vomiting metronidazole [From Flagyl] Adverse Reaction (Verified 09/28/17 21:43) Upset Stomach sulfamethoxazole [From Bactrim] Adverse Reaction (Verified 09/28/17 21:43) Upset Stomach trimethoprim [From Bactrim] Adverse Reaction (Verified 09/28/17 21:43) Upset Stomach Home Medications: Ambulatory Orders Medication Instructions Recorded Acetaminophen [Tylenol Tablet] 650 mg PO Q4H PRN PRN tablet 12/07/16 Surgical History: noncontributory Psychiatric History: Bipolar - maybe...there is a question talon after BPD on the notes from the counselling center. she carries a definite diagnosis of Borderline personality disorder., Depression DISTANCE LEARNING PROGRAM COORDINATOR History: No pertinent DISTANCE LEARNING PROGRAM COORDINATOR history Smoking Status: Current every day smoker Drugs: Cocaine, Heroin - *Family History Maternal History Items: No pertinent history Paternal History Items: No pertinent history Review of Systems Constitutional: Reports: - - Review of system difficult to obtain due to lack of cooperation from patient. Eyes: Reports: - - Review of system difficult to obtain due to lack of cooperation from patient. HEENT: Reports: - - Review of system difficult to obtain due to lack of cooperation from patient. Cardiovascular: Reports: - - Review of system difficult to obtain due to lack of cooperation from patient. Respiratory: Reports: Shortness of Breath, - Gastrointestinal: Reports: - - Review of system difficult to obtain due to lack of cooperation from patient. Genitourinary: Denies: Dysuria - Review of system difficult to obtain due to lack of cooperation from patient. Musculoskeletal: Reports: - - Generalized body pain Skin: Denies: Rash, Wounds Psychiatric: Reports: -. Denies: Homicidal Ideations, Suicidal Ideations Hematologic/ Lymphatic: Reports: - - Review of system difficult to obtain due to lack of cooperation from patient., - VTE Information - Inpt Only VTE Present on Admission: No VTE Mechan Device Prophylaxis: None VTE Pharm Prophylaxis ordered?: No Reason prophylaxis not ordered:: Treatment Not Indicated - Physical Exam General: Alert, Oriented x3, Cooperative HEENT: Atraumatic, PERRLA, EOMI, Normocephalic Neck: Supple, No JVD, Negative Carotid Bruits Lungs: Clear to auscultation, Normal air movement Cardiovascular: Regular rate, No murmurs Abdomen: Bowel Sounds Present, Soft, Non Tender Extremities: No edema, Capillary Refill Less than 3 Seconds Skin: No breakdown, - - Thorough skin examination could not be done due to uncooperativeness from patient. Musculoskeletal: - - Patient uncooperative for a thorough of musculoskeletal exams. Neurological: - - Uncooperative patient for a thorough exams. Psych/Mental Status: Agitated Vital Signs Temp Pulse Resp BP Pulse Ox 98.4 F 68 17 129/101 H 100 09/28/17 21:42 09/28/17 23:58 09/28/17 23:58 09/28/17 21:42 09/28/17 23:58 Oxygen Delivery Method Room Air Weight: 46.1 kg Body Mass Index (BMI) 19.8 Laboratory Tests Past 24 Hrs Assessment/Plan All Active Problems Opiate withdrawal (Acute) Overdose (Resolved) The patient is a 22 year old F with a significant history of borderline personality disorder, depression and IV drug use who has attempted multiple drug rehabilitation without success presenting with symptoms of drug withdrawal and with a reported seizure activity. Acute drug withdrawal Reports seizure activity which may be attributed to drug withdrawal. Drug of choice cocaine and heroine which she uses both intravenously Urine drug screen and ethanol level ordered. Librium scheduled and as needed ordered. Gabapentin continued. Clonidine as needed. Antiemetics ordered as needed Mirapex. Case management consult. DVT prophylaxis Low risk Ambulation. Code Visit Inpatient E AND M: 11752 Init Hosp L2 09/29/17 0107 <Electronically signed by Kevon Gates MD> Date Kevon Gates MD Cosigner Signature: Date (if applicable) CC: Sean Franz MD; Kevon Gates MD Signed CBC W/DIFF, AUTOMATED Collected: 09/29/2017 Status: F Source: [place]IA 4:03 AM [facility] REPOSITORY TYPE CODE TESTS RESULT OUT OF RANGE REFERENCE UNITS LAB L100.1000 4.4-11.0 K/mm3 High WBC 14.3 LAB L100.1200 4.2-5.4 M/mm3 Low RBC 3.97 LAB L100.1300 12.0-15.0 g/dl Low HGB 11.7 LAB L100.1400 37-47 % Low HCT 34.8 LAB L100.1500 81-99 fL Normal MCV 87.7 LAB L100.1600 27.0-32.0 pg Normal MCH 29.5 LAB L100.1700 32-36 g/gl Normal MCHC 33.6 LAB L100.1810 11.6-14.6 % Normal RDW CV 12.5 LAB L100.1820 35.1-43.9 fl Normal RDW SD 39.3 LAB L100.1900 150-450 K/mm3 Normal PLT 229 LAB L100.2000 6.2-12.0 fl Normal MPV 10.0 LAB L100.2100 47-70 % Normal NEUT% 68.5 LAB L100.2200 19-41 % Normal LY% 21.8 LAB L100.2300 0-10 % Normal MONO% 6.9 LAB L100.2400 0-5 % Normal EO% 2.3 LAB L100.2500 0-1 % Normal BASO% 0.3 LAB L100.2550 0.0-0.9 % Normal IM GRAN % 0.200 Result Comment: IG% - Immature Granulocytes (promyelocytes, myelocytes and metamyelocytes) > 1% indicates that a LEFT SHIFT is Present. LAB L100.2620 2.0-7.7 X10 3/uL High Absolute Neut 9.8 LAB L100.2720 0.83-4.51 X10 3/ul Normal Absolute Lymph 3.10 Performed By: #### L100.0100 #### [facility] [address] [place], [address] ALCOHOL, BLOOD Collected: 09/29/2017 Status: F Source: LIA (MEDICAL)-SERUM 4:03 AM [facility] REPOSITORY TYPE CODE TESTS RESULT OUT OF RANGE REFERENCE UNITS LAB L501.9100 mg/dL Normal SERUM < 3.0 ETOH Result Comment: The serum:whole blood ethanol ratio is approximately 1.14 and varies slightly with hematocrit. Medical Alcohol reference interval and critical value in non-tolerant individuals; 50 - 100 Impairment 100 Intoxication 100 - 250 Severe Poisoning 250 - 400 Deep/possible fatal coma Performed By: #### L501.9100 #### [facility] [address] [place], [place], [id number] BASIC METABOLIC Collected: 09/29/2017 Status: F Source: LIA PROFILE (BMP) 4:03 AM [facility] REPOSITORY TYPE CODE TESTS RESULT OUT OF RANGE REFERENCE UNITS LAB L501.0100 74-106 mg/dL Normal GLU 91 Result Comment: Please note revised GLUCOSE reference range effective 2017. LAB L501.1000 7-18 mg/dL Low BUN 5 LAB L501.1100 0.55-1.02 mg/dL Normal CREAT,SERUM 0.64 Result Comment: The validity of the calculated GFR AND GFRAA in patients over 70 years has not been determined. Clinical correlation is essential. LAB L501.1110 >60 mL/min Normal EST GFR 121 Result Comment: Non- GFR Calc LAB L501.1115 >60 mL/min Normal EST GFR - AA 147 Result Comment: GFR Calc LAB L501.1255 ml/min Normal Estimated CRCL 95.12 LAB L501.1300 10-20 RATIO Low BUN/CRE 7.9 LAB L501.2200 8.5-10 mg/dL Normal .1 CA 9.0 LAB L501.5300 136-14 mmol/L Normal 5 NA 144 LAB L501.5600 3.5-5. mmol/L Normal 1 K 3.9 LAB L501.5900 98-107 mmol/L Normal CL 107 LAB L501.6100 21.0-3 mmol/L Normal 2.0 CO2 29.0 LAB L501.6200 5-15 Normal GAP 8 Performed By: #### L500.2500 #### [facility] [address] [place], [place], [id number] URINE DRUG SCREEN Collected: 09/29/2017 Status: F Source: LIA (VISTA) 1:40 AM [facility] REPOSITORY Order Comment: List of Drugs Taken or Suspected? ? TYPE CODE TESTS RESULT OUT OF RANGE REFERENCE UNITS LAB L505.0075 TO BE Normal CONFIRMED Result Comment: CONFIRMATORY TESTING FOR ALL POSITIVE URINE DRUG SCREEN RESULTS WILL ONLY BE SENT OUT UPON PHYSICIAN ORDER. VISTA Urine Drug Screen methods provide only preliminary analytical test results. A more specific alternate chemical method must be used in order to obtain a confirmed analytical result. Gas chromatography/mass spectrometery (GC/MS) is the preferred confirmatory method. Clinical consideration and professional judgement should be applied to any drug of abuse test result, particularly when preliminary positive results are used. URINE TCA TESTING MUST BE ORDERED SEPARATELY. USE TEST MNEMONIC: [facility] LAB L505.5005 VISTA UDS PH 7 Normal LAB L505.5015 <1000 ng/mL AMPHETAMINES Normal NEGATIVE LAB L505.5025 < 200 ng/mL BARBITIURATES Normal NEGATIVE LAB L505.5035 < 200 ng/mL BENZODIAZIPINE Normal NEGATIVE LAB L505.5045 < 300 High ng/mL COCAINE POSITIVE LAB L505.5055 < 500 ng/mL ECSTACY Normal NEGATIVE LAB L505.5065 < 300 ng/mL METHADONE Normal NEGATIVE LAB L505.5075 < 300 High ng/mL OPIATES POSITIVE LAB L505.5085 < 25 ng/mL PCP Normal NEGATIVE LAB L505.5095 < 50 ng/mL THC Normal NEGATIVE Performed By: #### L505.5000 #### [facility] [place], [address] URINALYSIS, COMPLETE Collected: 09/29/2017 Status: F Source: LIA 1:40 AM [facility] REPOSITORY Order Comment: How was Urine Obtained? CLEAN CATCH TYPE CODE TESTS RESULT OUT OF RANGE REFERENCE UNITS LAB L400.3000 Yellow COLOR Normal Yellow LAB L400.3050 Clear Normal CLARITY Clear LAB L400.3200 Normal mg/dl Normal GLUCOSE, UR Normal LAB L400.3300 Negative mg/dL Normal BILIRUBIN URINE Negative LAB L400.3400 Negative mg/dl Normal KETONE UR Negative LAB L400.3465 1.002-1.030 Normal SP.GR. DIPSTX 1.010 LAB L400.3550 5.0 - 8.0 pH UR Normal 8.0 LAB L400.3600 Negative mg/dl PROT Normal DIPSTX Negative LAB L400.3700 Normal mg/dl Normal UROBILI Normal LAB L400.3750 Negative Normal NITRITE UR Negative LAB L400.3780 Negative /ul Normal OCCULT BLOOD-UR Negative LAB L400.3800 Negative /ul LEUK Normal ESTERASE Negative LAB L400.4050 0-5 /hpf WBC Normal 0-5 SEEN LAB L400.4100 0-5 /hpf 0 Normal RBC-UA SEEN LAB L400.4150 5-10 /hpf SQUAM Normal EPI 0-5 SEEN LAB L400.4300 None Seen /hpf Normal BACTERIA RARE LAB L400.4350 <or=2+ /hpf 0 Normal MUCUS, URINE SEEN Performed By: #### L400.0001 #### [facility] [address] [place], [address] EMERGENCY DEPARTMENT Observed: 09/29/2017 Status: F Source: [place] SUMMARY 12:06 AM [facility] REPOSITORY [facility] Medical Records Department [address] [facility] [place] [address] Emergency Department Summary 09/28/17 2214 MR#: [id number] Acct: [id number] Name: MARIA T DALLAS Rep #: [id number] : 1995 22 From: Dorian Paul MD PCP: Sean Franz MD Status: REG ER - ER Visit Summary Date of Service: 09/28/17 Chief Complaint: Told I had a seizure History of Present Illness: The patient is a 22 F prior history of drug abuse. States she has been binging on drugs for last 2 days. She has IV cocaine. She is also done heroin in the past. She has been treated here several times for drug abuse. She states she has had very little sleep the last several days. And reportedly 1 of her friends that does drugs told her that she had a seizure today. She denies any headache. She states she has never happened before. She denies any recent head trauma. Physical Examination: Young female no acute distress. Vital signs are stable afebrile. Pulse ox 99% on room air no signs of hypoxia. HEENT exam unremarkable. Neck nontender. No meningismus. No lymphadenopathy. Lungs clear to auscultation bilaterally. Heart regular rhythm no murmur. Chest wall nontender. Abdomen soft nontender. Normal bowel sounds no peritoneal signs. She is moving all 4 extremities. They are neurovascularly intact. She is track stanford in her right antecubital area. There is no abscess or cellulitis. Back is nontender. Neurologically she is awake and alert. Pupils are round reactive light. No facial droop. Normal speech. Equal and symmetrical caser strength. Dorsi and plantar flexion are intact. Normal range of motion of both upper and lower extremities. Fingertip to nose is within normal limits. Her NIH score is 0. Test Results: A count of 15.7 H AND H 12 and 37 no bands. Electrolytes unremarkable potassium of 3.3. Normal gap. Normal creatinine. Serum test is negative. Emergency Department Course and Treatment: Patient reportedly may have had a seizure. Her exam is unremarkable at this time. This may be secondary to sleep deprivation, could be secondary to withdrawal or drug abuse. She has had no head trauma and has a normal neurologic exam I Treatment Plan: Multiple repeat exams. Patient is resting more comfortably currently. She and I discussed and she would like to try detox again. She has been detoxed multiple times in the past. She does have a CIWA score of 25. I will speak to the hospitalist about admission. Disposition: Discharge Impression: Acute reported seizure Drug abuse Requesting detox for acute opiate withdrawal This note was generated with [employer] dictation software. It may contain incorrect words, spelling, and punctuation that were not noted in review of the chart prior to signing ED Disposition - Plan for ED Patient: Chief Complaint: Seizure Referrals: Sean Franz MD [Primary Care Provider] - What to do if you have Problems For any increased pain, shortness of breath, bleeding, nausea or vomiting, chest pain, or any unexpected problems, contact your Primary Care Provider. Call [facility] ([phone]) or report to the closest Emergency Room. Call 911 if necessary. 09/29/17 0006 <Electronically signed by Dorian Paul MD> Date Dorian Paul MD Cosigner Signature (If Indicated): Date CC: Sean Franz MD CBC W/DIFF, AUTOMATED Collected: 09/28/2017 Status: F Source: LIA 11:08 PM [facility] REPOSITORY TYPE CODE TESTS RESULT OUT OF RANGE REFERENCE UNITS LAB L100.1000 4.4-11.0 K/mm3 High WBC 15.7 LAB L100.1200 4.2-5.4 M/mm3 Normal RBC 4.31 LAB L100.1300 12.0-15.0 g/dl Normal HGB 12.8 LAB L100.1400 37-47 % Normal HCT 37.0 LAB L100.1500 81-99 fL Normal MCV 85.8 LAB L100.1600 27.0-32.0 pg Normal MCH 29.7 LAB L100.1700 32-36 g/gl Normal MCHC 34.6 LAB L100.1810 11.6-14.6 % Normal RDW CV 12.6 LAB L100.1820 35.1-43.9 fl Normal RDW SD 38.7 LAB L100.1900 150-450 K/mm3 Normal PLT 220 LAB L100.2000 6.2-12.0 fl Normal MPV 9.7 LAB L100.2100 47-70 % High NEUT% 82.7 LAB L100.2200 19-41 % Low LY% 11.2 LAB L100.2300 0-10 % Normal MONO% 4.8 LAB L100.2400 0-5 % Normal EO% 0.8 LAB L100.2500 0-1 % Normal BASO% 0.3 LAB L100.2550 0.0-0.9 % Normal IM GRAN % 0.200 Result Comment: IG% - Immature Granulocytes (promyelocytes, myelocytes and metamyelocytes) > 1% indicates that a LEFT SHIFT is Present. LAB L100.2620 2.0-7.7 X10 3/uL High Absolute Neut 13.0 LAB L100.2720 0.83-4.51 X10 3/ul Normal Absolute Lymph 1.75 Performed By: #### L100.0100 #### [facility] [place], [address] BASIC METABOLIC Collected: 09/28/2017 Status: F Source: LIA PROFILE (BMP) 11:08 PM [facility] REPOSITORY TYPE CODE TESTS RESULT OUT OF RANGE REFERENCE UNITS LAB L501.0100 74-106 mg/dL Normal GLU 85 Result Comment: Please note revised GLUCOSE reference range effective 2017. LAB L501.1000 7-18 mg/dL Low BUN 4 LAB L501.1100 0.55-1.02 mg/dL Normal CREAT,SERUM 0.64 Result Comment: The validity of the calculated GFR AND GFRAA in patients over 70 years has not been determined. Clinical correlation is essential. LAB L501.1110 >60 mL/min Normal EST GFR 120 Result Comment: Non- GFR Calc LAB L501.1115 >60 mL/min Normal EST GFR - AA 145 Result Comment: GFR Calc LAB L501.1255 ml/min Normal Estimated CRCL 97.36 LAB L501.1300 10-20 RATIO Low BUN/CRE 6.2 LAB L501.2200 8.5-10 mg/dL Normal .1 CA 9.2 LAB L501.5300 136-14 mmol/L Normal 5 NA 140 LAB L501.5600 3.5-5. mmol/L Low 1 K 3.3 LAB L501.5900 98-107 mmol/L Normal CL 107 LAB L501.6100 21.0-3 mmol/L Normal 2.0 CO2 25.0 LAB L501.6200 5-15 Normal GAP 8 Performed By: #### L500.2500 #### [facility] [address] [place], [place], [address] ,SERUM,HCG QUALI. Collected: Status: F Source: LIA 09/28/2017 11:08 PM [facility] REPOSITORY TYPE CODE TESTS RESULT OUT OF REFERENCE UNITS RANGE LAB L700.7000 0-9 Nonpreg Negative Normal HCGSQUAL NEGATIVE LAB L700.6700 =>Qualitative mIU/mL Normal HCG Qual < 1 triggr Performed By: #### L700.6800 #### [facility] [address] [place], [address] CNCO Observed: 09/15/2017 Status: COMPLETED Source: [place] 12:[address] [facility] REPOSITORY Letter Text . THE [facility] AUTHORIZATION FOR THE RELEASE OF MEDICAL INFORMATION FROM OTHER HEALTHCARE FACILITIES [facility] [address] [place], [place] [address] Name: Maria T Dallas Date of : 1995 [address] [facility] [place] [address] (home) Reason for Disclosure: Continuity of Care. Release Information From: Name of Provider/Facility: [facility] Street: City: State: Zip: Fax: Phone: Release Information To: Office Receiving: Aye Naylor APRN.CNP PLEASE FAX TO: [phone] I hereby authorize to release the health information indicated below that is contained in my patient records to the Recipient named above. I understand and acknowledge that this may include treatment for physical and mental illness, alcohol/drug abuse and or HIV/AIDS test results or diagnosis. This authorization does not include permission to release outpatient Psychotherapy Notes* as defined below. The release of Psychotherapy Notes requires a separate authorization. REPORTS REQUESTED: Recent hospital visit. Discharge summary, lab, imaging, etc This consent is subject to revocation at any time except to the extent the action has been taken thereon. This authorization and consent will in one year from the date of authorization written below. Your health care (or payment for care) will not be affected by whether or not you sign this authorization. Once your health care information is released, re-disclosure of your health care information by the Recipient my no longer be protected by law. Signature of Patient/Legal Guardian Printed Name Date Signed: ____/ / Relationship if not Patient If other than patient?s signature, a copy of the legal papers verifying authority (e.g. Power of Elevator Supervisor or Certificate) MUST accompany the authorization when presented. Exception: parent if signing for patient under age 18. *Psychotherapy Notes defined as notes that document private, joint, group or family counseling sessions that are from the rest of a patient?s medical record. PROGRESS Observed: 09/11/2017 Status: COMPLETED Source: [place] 1:39 PM [facility] REPOSITORY O ID: [id number] Author: Izzy Jean (Pa) Service: (none) Author Type: Physician Toe Laster Type: Progress Notes Filed: 09/11/2017 2:00 PM Note Text: Patient on phone upon entering exam room, after hanging up phone stated that we better give her something for pain today for her abscess and that no one is touching this, pointing to approximately 3.5 cm abscess right axilla, until she received something for pain. I discussed with patient that we utilize local anesthetic and then open and drain the abscess, removing pressure and this usually significantly relieves discomfort. Patient became extremely angry and then inquired as to what pain medication would be given after the procedure. I discussed that we have patients use conservative measures such as ice [id number] anti-inflammatories. Patient became even more irate at that point and stated that this is golf ball sized and I'm going to be in pain and again stated that she would not even let anyone touch the abscess without first receiving something for pain. She also stated you can at least write for tramadol after the procedure. Discussed again that we do not have capability for sedation in this office and that most patients tolerate the procedure well with local anesthetic and conservative measures following procedure. Patient then stated she no longer and wanted to see me and wanted to see a different provider in the office. Discussed case with Dr. Jackson. Patient was offered an appointment with Dr. Jackson by nursing staff, again it was discussed with patient that procedure regardless of provider is done only with local anesthesia, no sedation, and typically no prescription pain medication is given following this except in very rare cases and patients typically tolerate the procedure well. Patient declined appointment with Dr. Jacksno and left office. JENELLE Observed: 09/11/2017 Status: COMPLETED Source: [place] 1:00 PM [facility] REPOSITORY Office Visit (GENSWS) MARIA T DALLAS ([id number]) 1995 F Date Time Provider Department 09/11/17 1:00 PM IZZY JEAN) GENSWS During your visit today, we recorded the following information about you: Temperature Pulse Blood pressure Weight 98.3 degrees 90/minute 100/64 48.1 kg Donna Austin RN 09/11/2017 1:39 PM Signed I spoke with the patient and informed her that neither Izzy Jean or Dr. Jackson would give her pain medication prior to or after draining her axillary abscess. She became very angry and left the office cursing because she knew she would need pain medicine and this was ridiculous. We offered to drain the abscess as we would for any other patient but this was not acceptable to her. Donna Jean PA-C 09/11/2017 2:00 PM Signed Patient on phone upon entering exam room, after hanging up phone stated that we better give her something for pain today for her abscess and that no one is touching this, pointing to approximately 3.5 cm abscess right axilla, until she received something for pain. I discussed with patient that we utilize local anesthetic and then open and drain the abscess, removing pressure and this usually significantly relieves discomfort. Patient became extremely angry and then inquired as to what pain medication would be given after the procedure. I discussed that we have patients use conservative measures such as ice [id number]-[id number] anti-inflammatories. Patient became even more irate at that point and stated that this is golf ball sized and I'm going to be in pain and again stated that she would not even let anyone touch the abscess without first receiving something for pain. She also stated you can at least write for tramadol after the procedure. Discussed again that we do not have capability for sedation in this office and that most patients tolerate the procedure well with local anesthetic and conservative measures following procedure. Patient then stated she no longer and wanted to see me and wanted to see a different provider in the office. Discussed case with Dr. Jackson. Patient was offered an appointment with Dr. Jackson by nursing staff, again it was discussed with patient that procedure regardless of provider is done only with local anesthesia, no sedation, and typically no prescription pain medication is given following this except in very rare cases and patients typically tolerate the procedure well. Patient declined appointment with Dr. Jackson and left office. Donna Austin RN 09/11/2017 1:44 PM Signed REVIEW OF SYSTEMS: General: The patient denies fatigue, denies weight loss, denies weight gain, NOTES feeling hot, and NOTES feelings of cold. Eyes: The patient denies glaucoma, denies eye injury/surgery, wears glasses or contacts. Ear/Nose/Throat: The patient NOTES allergies, denies hayfever, denies ear infections, and denies bloody noses. Cardiovascular: The patient denies chest pain, denies heart disease, denies high blood pressure,denies cardiac stent, denies prior heart attack, denies irregular heart beat, denies high cholesterol, denies poor circulation, denies heart failure, other cardiac issues, denies claudication, denies cold feet, denies peripheral arterial stent. Respiratory: The patient denies tuberculosis, denies pneumonia, denies frequent cough, denies pulmonary embolism, denies shortness of breath, and denies coughing up blood. Gastrointestinal: The patient denies difficulty swallowing, NOTES acid reflux, denies ulcers, denies vomiting, denies jaundice/hepatitis, denies gallbladder problems, denies black or tarry stools, denies hemorrhoids, denies bleeding from rectum, denies diverticulitis, NOTES constipation, NOTES diarrhea, denies loss of stool control, and denies hernias. Kidney/Bladder: The patient denies kidney stones, denies urine infections, and denies bloody urine. Skin: The patient denies a history of skin cancer, denies bleeding/changing moles, and NOTES a history of skin rash. Neurologic: The patient denies a history of epilepsy/convulsions, NOTES headaches, denies head/spinal injuries, and denies stroke/TIA. Psychiatric: The patient denies psychiatric medications, NOTES depression, and denies voices, denies substance abuse. Endocrine: The patient denies thyroid disorders, denies diabetes, and denies hormonal problems. Hematologic: The patient denies a history of bruising, denies bleeding, and denies anemia, denies blood clots. Infections: The patient denies a history of measles and mumps, denies rheumatic fever, and denies sexually transmitted diseases. Musculoskeletal: The patient notes back pain/injury, NOTES back problems, denies sciatica, denies knee/foot trouble, denies arthritis, or denies gout. When was patient's last Mammogram screening? N/A Last Colonoscopy: no Donna Austin RN Referring Provider: SELF [200] Allergies As of Date: 09/11/2017 Noted Allergy Reaction fragrance mix [Other] 12/14/2007 2 - Rash AMOXICILLIN 04/06/2005 2 - Rash DOXYCYCLINE 06/25/2009 8 - GI Upset FLAGYL (METRONIDAZOLE HCL) 10/10/2011 8 - GI Upset Comments: Nausea metal [Other] 04/06/2005 2 - Rash NAPROXEN 01/31/2012 8 - GI Upset Comments: Headache/GI upset Trish [Other] 04/06/2005 2 - Rash PENICILLINS 04/06/2005 4 - Hives ULTRAM (TRAMADOL HCL) 10/10/2011 14 - Other: See Comments Comments: Headache Date Reviewed: 09/11/2017 Reviewed by: Izzy Randolph) - Fully Assessed Reason for Visit: Consult [173] Cmt: abscess Primary Visit Diagnosis:Patient left before treatment completed [Z91.19] Prescriptions as of 09/11/2017 Sig: CLONIDINE HCL 0.1 MG TABLET Take 1 tablet by mouth three * LAMOTRIGINE 25 MG TABLET IBUPROFEN 600 MG TABLET Take 1 tablet by mouth every * ACETAMINOPHEN 325 MG TABLET EVERY 4 HOURS NEEDED ACYCLOVIR 400 MG TABLET Take 1 tablet by mouth twice * POLYETHYLENE GLYCOL 3350 17 G* Take 17 g by mouth once daily. MELATONIN 5 MG CAPSULE Take by mouth. GABAPENTIN 400 MG CAPSULE 600 mg three times daily. PROCHLORPERAZINE MALEATE 10 M* Take 1 tablet by mouth every * Patient not taking: Reported on 09/11/2017 VITAMIN,CALCIUM,MINE* Take 1 tablet by mouth once d* Patient not taking: Reported on 09/11/2017 DOCUSATE SODIUM 100 MG CAPSULE Take 1 capsule by mouth once * Patient not taking: Reported on 09/11/2017 LYSINE ORAL Take by mouth. 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] INVALID FOR*04/17/2017 Contact dermatitis and other eczema, due to uns*INVALID FOR*04/17/2017 Unspecified pruritic disorder [L29.9] INVALID FOR*04/17/2017 EXCORIATION///SUPERFICIAL INJURY NEC [T07.XXXA] INVALID FOR* XEROSIS///SEBACEOUS GLAND DIS NEC [L73.8] INVALID FOR* Insect bite NEC [W57.XXXA] INVALID FOR*03/03/2011 Scabies [B86] INVALID FOR*03/03/2011 NONSPECIF SKIN ERUPT NEC [R21] INVALID FOR* OTHER ATOPIC DERMATITIS [L20.89] INVALID FOR* Seborrheic dermatitis, unspecified [L21.9] INVALID FOR*12/16/2014 Ganglion, unspecified [M67.40] INVALID FOR*04/17/2017 Bipolar disorder, unspecified (HCC) [F31.9] INVALID FOR*04/17/2017 Genital herpes [A60.00] INVALID FOR* Migraines [G43.909] INVALID FOR* More... Anxiety [F41.9] INVALID FOR* More... Back ache [M54.9] INVALID FOR* Bipolar affective disorder (HCC) [F31.9] INVALID FOR* Opioid dependence with withdrawal (HCC) [F11.23]INVALID FOR* Fissure in ano [K60.2] INVALID FOR* Opioid abuse [F11.10] INVALID FOR* TMJ (dislocation of temporomandibular joint) [S*INVALID FOR* Axillary abscess [L02.419] INVALID FOR* Unplanned [Z34.90] INVALID FOR* More... Tobacco use in [O99.330] INVALID FOR* More... History of suicidal ideation [Z86.59] INVALID FOR* More... History of herpes genitalis [Z86.19] INVALID FOR* More... Pelvic pain in [O26.899, R10.2] INVALID FOR* More... History of drug abuse [Z87.898] INVALID FOR* More... Patient requested diagnostic testing [Z01.89] INVALID FOR* More... Visit Notes: >> Donna Austin RN MonSep 11, 2017 1:36 PM Status: Signed I spoke with the patient and informed her that neither Izzy Jean or Dr. Jackson would give her pain medication prior to or after draining her axillary abscess. She became very angry and left the office cursing because she knew she would need pain medicine and this was ridiculous. We offered to drain the abscess as we would for any other patient but this was not acceptable to her. Donna Austin RN >> Donna Austin RN MonSep 11, 2017 1:41 PM Status: Signed REVIEW OF SYSTEMS: General: The patient denies fatigue, denies weight loss, denies weight gain, NOTES feeling hot, and NOTES feelings of cold. Eyes: The patient denies glaucoma, denies eye injury/surgery, wears glasses or contacts. Ear/Nose/Throat: The patient NOTES allergies, denies hayfever, denies ear infections, and denies bloody noses. Cardiovascular: The patient denies chest pain, denies heart disease, denies high blood pressure,denies cardiac stent, denies prior heart attack, denies irregular heart beat, denies high cholesterol, denies poor circulation, denies heart failure, other cardiac issues, denies claudication, denies cold feet, denies peripheral arterial stent. Respiratory: The patient denies tuberculosis, denies pneumonia, denies frequent cough, denies pulmonary embolism, denies shortness of breath, and denies coughing up blood. Gastrointestinal: The patient denies difficulty swallowing, NOTES acid reflux, denies ulcers, denies vomiting, denies jaundice/hepatitis, denies gallbladder problems, denies black or tarry stools, denies hemorrhoids, denies bleeding from rectum, denies diverticulitis, NOTES constipation, NOTES diarrhea, denies loss of stool control, and denies hernias. Kidney/Bladder: The patient denies kidney stones, denies urine infections, and denies bloody urine. Skin: The patient denies a history of skin cancer, denies bleeding/changing moles, and NOTES a history of skin rash. Neurologic: The patient denies a history of epilepsy/convulsions, NOTES headaches, denies head/spinal injuries, and denies stroke/TIA. Psychiatric: The patient denies psychiatric medications, NOTES depression, and denies voices, denies substance abuse. Endocrine: The patient denies thyroid disorders, denies diabetes, and denies hormonal problems. Hematologic: The patient denies a history of bruising, denies bleeding, and denies anemia, denies blood clots. Infections: The patient denies a history of measles and mumps, denies rheumatic fever, and denies sexually transmitted diseases. Musculoskeletal: The patient notes back pain/injury, NOTES back problems, denies sciatica, denies knee/foot trouble, denies arthritis, or denies gout. When was patient's last Mammogram screening? N/A Last Colonoscopy: no Donna Austin RN Follow-up and Disposition History Recorded Encounter Status:Closed by IZZY JEAN PA-C on 09/11/17 [place] Observed: 09/08/2017 Status: COMPLETED Source: [place] 12:00 AM [facility] REPOSITORY Telephone [facility] MARIA T DALLAS ([id number]) 1995 F Date Time Provider Department 09/08/17 SEAN FRANZ During your visit today, we recorded the following information about you: Leonid Rmaos Ma 09/08/2017 1:48 PM Addendum Patient came to office today and was told she had an appointment for her f/u from [facility] with A[facility]. However triage nurse mistold her appt. Date which was documented wrong in TE and date patient is really scheduled for is next Friday 09/15 with [employer] [employer]. No available openings today for patient to be booked. Patient is in need of medication refills. Patient requests an increase in Gabapentin 600 mg from TID to QID d/t difficulty with restless legs at night and worse during menses. Patient also states she's getting a boil under her right arm and it's getting worse. Pended medications. Pharmacy verified. Dr. Franz please review and advise of the above. SEAN FRANZ MD 09/09/2017 1:33 PM Signed Cannot increase gabapentin, refilled clonidine Patient's request for medication is as follows: Pending Prescriptions Disp Refills GABAPENTIN 600 MG TABLET Sig: Take 1 tablet by mouth three times daily. Signed Prescriptions Disp Refills cloNIDine HCl (CATAPRES) 0.1 mg tablet 90 tablet 2 Sig: Take 1 tablet by mouth three times daily as needed. CONOR: No Authorizing Provider: ESAN FRANZ Prescription(s) as above. Please process accordingly. MD Leonid MARTIN Ma 09/11/2017 11:54 AM Signed The following approved medication requests have been transmitted electronically. Signed Prescriptions Disp Refills cloNIDine HCl (CATAPRES) 0.1 mg tablet 90 tablet 2 Sig: Take 1 tablet by mouth three times daily as needed. CONOR: No Authorizing Provider: SEAN FRANZ Ma Allergies As of Date: 09/08/2017 Noted Allergy Reaction fragrance mix [Other] 12/14/2007 2 - Rash AMOXICILLIN 04/06/2005 2 - Rash DOXYCYCLINE 06/25/2009 8 - GI Upset FLAGYL (METRONIDAZOLE HCL) 10/10/2011 8 - GI Upset Comments: Nausea metal [Other] 04/06/2005 2 - Rash NAPROXEN 01/31/2012 8 - GI Upset Comments: Headache/GI upset Trish [Other] 04/06/2005 2 - Rash PENICILLINS 04/06/2005 4 - Hives ULTRAM (TRAMADOL HCL) 10/10/2011 14 - Other: See Comments Comments: Headache Date Reviewed: 05/26/2017 Reviewed by: Naomi Gutierrez Ma - Fully Assessed Reason for Visit: Medication Request [138] Order(s):cloNIDine HCl (CATAPRES) 0.1 mg tabletTake 1 tablet by mouth three times daily as needed.Disp: 90 tabletRfl: 2 Prescriptions as of 09/08/2017 Sig: CLONIDINE HCL 0.1 MG TABLET Take 1 tablet by mouth three * LAMOTRIGINE 25 MG TABLET IBUPROFEN 600 MG TABLET Take 1 tablet by mouth every * ACETAMINOPHEN 325 MG TABLET EVERY 4 HOURS NEEDED PROCHLORPERAZINE MALEATE 10 M* Take 1 tablet by mouth every * VITAMIN,CALCIUM,MINE* Take 1 tablet by mouth once d* ACYCLOVIR 400 MG TABLET Take 1 tablet by mouth twice * POLYETHYLENE GLYCOL 3350 17 G* Take 17 g by mouth once daily. DOCUSATE SODIUM 100 MG CAPSULE Take 1 capsule by mouth once * MELATONIN 5 MG CAPSULE Take by mouth. LYSINE ORAL Take by mouth. CLONIDINE 0.1 MG-CHLORTHALIDO* Take 1 tablet by mouth twice * GABAPENTIN 400 MG CAPSULE 600 mg three times daily. 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] INVALID FOR*04/17/2017 Contact dermatitis and other eczema, due to uns*INVALID FOR*04/17/2017 Unspecified pruritic disorder [L29.9] INVALID FOR*04/17/2017 EXCORIATION///SUPERFICIAL INJURY NEC [T07.XXXA] INVALID FOR* XEROSIS///SEBACEOUS GLAND DIS NEC [L73.8] INVALID FOR* Insect bite NEC [W57.XXXA] INVALID FOR*03/03/2011 Scabies [B86] INVALID FOR*03/03/2011 NONSPECIF SKIN ERUPT NEC [R21] INVALID FOR* OTHER ATOPIC DERMATITIS [L20.89] INVALID FOR* Seborrheic dermatitis, unspecified [L21.9] INVALID FOR*12/16/2014 Ganglion, unspecified [M67.40] INVALID FOR*04/17/2017 Bipolar disorder, unspecified (HCC) [F31.9] INVALID FOR*04/17/2017 Genital herpes [A60.00] INVALID FOR* Migraines [G43.909] INVALID FOR* More... Anxiety [F41.9] INVALID FOR* More... Back ache [M54.9] INVALID FOR* Bipolar affective disorder (HCC) [F31.9] INVALID FOR* Opioid dependence with withdrawal (HCC) [F11.23]INVALID FOR* Fissure in ano [K60.2] INVALID FOR* Opioid abuse [F11.10] INVALID FOR* TMJ (dislocation of temporomandibular joint) [S*INVALID FOR* Axillary abscess [L02.419] INVALID FOR* Unplanned [Z34.90] INVALID FOR* More... Tobacco use in [O99.330] INVALID FOR* More... History of suicidal ideation [Z86.59] INVALID FOR* More... History of herpes genitalis [Z86.19] INVALID FOR* More... Pelvic pain in [O26.899, R10.2] INVALID FOR* More... History of drug abuse [Z87.898] INVALID FOR* More... Patient requested diagnostic testing [Z01.89] INVALID FOR* More... Prescriptions ordered this encounter Disp Refills Start End CLONIDINE HCL 0.1 MG TABLET 90 t* 2 09/09/2017 Route: ORAL Sig: Take 1 tablet by mouth three times daily as needed. Medications Discontinued During This Encounter cloNIDine HCl (CATAPRES) 0.1 mg tabl* 0 03/23/2017 09/09/2017 Class: Historical Med Route: ORAL Sig: Take 0.1 mg by mouth three times daily as needed. Disc: Reason for discontinue is not on file. Encounter Status:Closed by LEONID RAMOS MA on 09/11/17 EMERGENCY DEPARTMENT Observed: 09/07/2017 Status: F Source: [place] SUMMARY 3:43 PM [facility] REPOSITORY [facility] Medical Records Department [address] [facility] [place] [address] Emergency Department Summary 09/07/17 1538 MR#: [id number] Acct: [id number] Name: MARIA T DALLAS Rep #: [id number] : 1995 22 From: Rd Reece DO PCP: Sean Franz MD Status: DEP ER - ER Visit Summary Date of Service: 09/07/17 Chief Complaint: [Depression and suicidal ideation] History of Present Illness: The patient is a 22 F [presents the emergency department with complaint of feeling depressed today. Patient states she has not slept the last 24 hours. Patient has been manic for weeks. Patient states that she starting to detox from opiates. Patient denies hallucinations. Patient states that she feels like she gets paranoid. Patient also cut her arms last night but did not do it an attempt to kill herself but rather than just to release stress. Patient has history of bipolar disorder.] Physical Examination: HEENT-PERRLA, EOMI. Cranial nerves II through XII grossly intact. TMs clear. Mucous membranes moist. No adenopathy. Cardiovascular-regular rate and rhythm without murmur or ectopy Lungs-clear to auscultation, chest wall stable without crepitus or subcu emphysema Abdomen-normoactive bowel sounds, soft, nontender, no rebound or rigidity, no peritoneal signs. Extremities-intact 4, normal range of motion, normal pulses, atraumatic[] Test Results: [CBC with differential showed a white count of 9.6, hemoglobin 12, hematocrit 37, platelets 294. Chemistries unremarkable. Urinalysis was normal. HCG was negative. Toxicology screen was positive for amphetamines, barbiturates, and opiates. Alcohol level was negative.] Emergency Department Course and Treatment: [Patient will be evaluated by crisis] Treatment Plan: [Transfer to psychiatric facility of [facility] for further evaluation and treatment] Disposition: [Transfer] Impression: [Suicidal ideation Narcotic abuse Manic episode] This note was generated with [employer] dictation software. It may contain incorrect words, spelling, and punctuation that were not noted in review of the chart prior to signing ED Disposition - Plan for ED Patient: Disposition: Psychiatric Hospital or Unit Referrals: Sean Franz MD [Primary Care Provider] - What to do if you have Problems For any increased pain, shortness of breath, bleeding, nausea or vomiting, chest pain, or any unexpected problems, contact your Primary Care Provider. Call [facility] ([phone]) or report to the closest Emergency Room. Call 911 if necessary. 09/07/17 1543 <Electronically signed by Rd Reece DO> Date Rd Reece DO Cosigner Signature (If Indicated): Date CC: Sean Franz MD 12 LEAD ELECTROCARDIOGRAM Observed: 08/31/2017 Status: F Source: [place] 8:59 AM [facility] Cardiovascular Services [address] [place] [id number] 12 Lead EKG 08/29/17 0657 MR#: [id number] Acct: [id number] Name: MARIA T DALLAS Rep #: [id number] : 1995 22 From: Edu Wolfe MD Attending Dr: Status: DEP ER Ordering Dr: Smith Garcia MD Date: 08/29/17 Location: ED Sex: F C Admitted: Test Reason : SUBSTANCE ABUSE Blood Pressure : / mmHG Vent. Rate : 093 BPM Atrial Rate : 093 BPM P-R Int : 118 ms QRS Dur : 082 ms QT Int : 392 ms P-R-T Axes : 023 027 028 degrees QTc Int : 487 ms Normal sinus rhythm Prolonged QT Abnormal ECG Confirmed by EDU WOLFE MD ([id number]), research editor YOBANI HURST ([id number]) on 08/31/2017 8:59:11 AM Referred By: MUNIRA Confirmed By:EDU WOLFE MD 08/31/17 0859 Date Edu Wolfe MD CC: Sean Franz MD; Smith Garcia MD Signed HEMOGLOBIN A1C Collected: 08/31/2017 Status: F Source: [facility] 6:59 AM SYSTEM REPOSITORY TYPE CODE TESTS RESULT OUT OF RANGE REFERENCE UNITS LAB A1C2 4.0-5.7 % Normal Hemoglobin A1C 5.1 Result Comment: --HgbA1C levels may not be accurate in patients who have renal disease, received recent blood transfusions, are anemic, or who have dyshemoglobinemia. LAB EAG2 mg/dL Estimated Avg Glucose 100 Performed By: #### HA1C2, LIPD2 #### [facility] [address] [place] [id number] LIPID PANEL Collected: 08/31/2017 Status: F Source: [facility] 6:59 AM SYSTEM REPOSITORY TYPE CODE TESTS RESULT OUT OF RANGE REFERENCE UNITS LAB 3CHOL < 200 mg/dL Normal Cholesterol 156 LAB 3TRIG <150 mg/dL Normal Triglyceride 118 LAB HDLC 40-60 mg/dL Low HDL Cholesterol 27 LAB LDL4 <100 mg/dL Low Density Abnormal Lipoprotein 105 LAB CHLHD NA Chol/HDL 6 Result Comment: Ref Range: < 3 Low Risk for CHD 3-6 Mod Risk for CHD > 6 High Risk for CHD Performed By: #### HA1C2, LIPD2 #### [facility] [address] [place] [phone] DOWNTIME REPORT Observed: 08/30/2017 Status: F Source: [place] 2:56 PM [facility] Medical Records Department [address] [place] [address] Downtime Report MR#: [id number] Acct: [id number] Name: MARIA T DALLAS Rep #: [id number] : 1995 22 From: Emmett Hurst MD PCP: Sean Franz MD Status: DEP ER This patient was seen during an EMR downtime August 14, 2017 - August 21, 2017. This patient may have a combination of paper and electronic documentation or all paper documentation. All documentation is viewable within the e-chart portion of [employer] for each patient visit. EMERGENCY DEPARTMENT Observed: 08/29/2017 Status: F Source: [place] SUMMARY 3:46 PM [facility] REPOSITORY [facility] Medical Records Department [address] [place] [address] Emergency Department Summary 08/29/17 0656 MR#: [id number] Acct: [id number] Name: MARIA T DALLAS Rep #: [id number] : 1995 22 From: Smith Garcia MD PCP: Sean Franz MD Status: REG ER ADDENDUM by Eugenio Barajas MD on 08/29/17 at 1546 Patient's labs have returned. Her CBC is more for white count 11.8 with 74 segmented neutrophils and 16 lymphocytes. H AND H 11 point and 34.1. Chem-7 is normal. LFTs are normal. UA is contaminated. test is negative. Alcohol level is negative. Tox screen shows opiates, methadone, and amphetamines. The patient was seen by the counseling center in the emergency department and she reports that she is worse off from a psychiatric perspective than she was previously. They contacted the patient's mother reports patient reported that she was suicidal multiple times this morning. Patient is not safe to go home. When we discussed this with her and she was pink slip she became combative and tried to leave. Patient was placed in four-point restraints for her own as well as staff safety. She was given Benadryl, Ativan, and Haldol IM. The counseling center has arranged for her to be admitted at [facility] where she will be transferred for further evaluation and treatment. Impression: 1. Bipolar disorder. 2. Suicidal ideation. Date Eugenio Barajas MD cc: Sean Franz MD * Signed - ER Visit Summary Date of Service: 08/29/17 Chief Complaint: Manic behavior History of Present Illness: The patient is a 22 F with abnormal behavior. She has a history of bipolar disorder and borderline personality. She has not been taking any of her medications. She does use opioids. She believes she might be withdrawing from opioids. She is not sleeping. She is restless and agitated. No suicidal or homicidal thoughts. No medical complaints. She was brought in by law enforcement for abnormal behavior. Physical Examination: Afebrile. Tachycardic. Patient is restless and mildly agitated. Labile affect. She has scabs on her face and is picking at her feet. Heart is tachycardic but regular. Lungs are clear. Abdomen soft. No focal or lateralizing neurologic abnormalities grossly. Test Results: EKG, laboratory studies, urinalysis, test, tox screen, and alcohol levels pending. Emergency Department Course and Treatment: Patient had psychiatric precautions. Patient has history of untreated bipolar disorder as well as polysubstance abuse. She was treated with Ativan and Zofran while awaiting results. I believe she will need inpatient care for brayan. The oncoming physician will check the results, and the patient will need evaluation by the crisis counselor. Treatment Plan: Medical clearance and then crisis evaluation. Disposition: Pending crisis evaluation Impression: 1. Bipolar disorder, manic episode 2. Opioid withdrawal This note was generated with [employer] dictation software. It may contain incorrect words, spelling, and punctuation that were not noted in review of the chart prior to signing ED Disposition - Plan for ED Patient: Chief Complaint: Substance Abuse Referrals: Sean Franz MD [Primary Care Provider] - What to do if you have Problems For any increased pain, shortness of breath, bleeding, nausea or vomiting, chest pain, or any unexpected problems, contact your Primary Care Provider. Call [facility] ([phone]) or report to the closest Emergency Room. Call 911 if necessary. 08/29/17 0731 <Electronically signed by Smith Garcia MD> Date Smith Garcia MD Cosigner Signature (If Indicated): Date CC: Sean Franz MD CBC W/DIFF, AUTOMATED Collected: 08/29/2017 Status: F Source: [place] 6:56 AM [facility] REPOSITORY TYPE CODE TESTS RESULT OUT OF RANGE REFERENCE UNITS LAB L100.1000 4.4-11.0 K/mm3 High WBC 11.8 LAB L100.1200 4.2-5.4 M/mm3 Low RBC 3.92 LAB L100.1300 12.0-15.0 g/dl Low HGB 11.9 LAB L100.1400 37-47 % Low HCT 34.1 LAB L100.1500 81-99 fL Normal MCV 87.0 LAB L100.1600 27.0-32.0 pg Normal MCH 30.4 LAB L100.1700 32-36 g/gl Normal MCHC 34.9 LAB L100.1810 11.6-14.6 % Normal RDW CV 11.9 LAB L100.1820 35.1-43.9 fl Normal RDW SD 37.5 LAB L100.1900 150-450 K/mm3 Normal PLT 251 LAB L100.2000 6.2-12.0 fl Normal MPV 9.0 LAB L100.2100 47-70 % High NEUT% 73.8 LAB L100.2200 19-41 % Low LY% 16.2 LAB L100.2300 0-10 % Normal MONO% 7.1 LAB L100.2400 0-5 % Normal EO% 2.1 LAB L100.2500 0-1 % Normal BASO% 0.5 LAB L100.2550 0.0-0.9 % Normal IM GRAN % 0.300 Result Comment: IG% - Immature Granulocytes (promyelocytes, myelocytes and metamyelocytes) > 1% indicates that a LEFT SHIFT is Present. LAB L100.2620 2.0-7.7 X10 3/uL High Absolute Neut 8.7 LAB L100.2720 0.83-4.51 X10 3/ul Normal Absolute Lymph 1.91 Performed By: #### L100.0100 #### [facility] [address] [place], [address] COMPREHENSIVE METABOLIC Collected: 08/29/2017 Status: F Source: [facility] 6:56 AM [facility] REPOSITORY TYPE CODE TESTS RESULT OUT OF RANGE REFERENCE UNITS LAB L501.0100 74-106 mg/dL Normal GLU 96 Result Comment: Please note revised GLUCOSE reference range effective 2017. LAB L501.1000 7-18 mg/dL Normal BUN 13 LAB L501.1100 0.55-1.02 mg/dL Normal CREAT,SERUM 0.75 Result Comment: The validity of the calculated GFR AND GFRAA in patients over 70 years has not been determined. Clinical correlation is essential. LAB L501.1110 >60 mL/min Normal EST GFR 100 Result Comment: Non- GFR Calc LAB L501.1115 >60 mL/min Normal EST GFR - AA 121 Result Comment: GFR Calc LAB L501.1255 ml/min Normal Estimated CRCL 81.98 LAB L501.1300 10-20 RATIO Normal BUN/CRE 17.3 LAB L501.1500 6.4-8. g/dL Normal 2 T PROT 6.9 LAB L501.1800 3.2-5. g/dL Normal 0 ALB 3.3 LAB L501.1950 2.2-4. g/dL Normal 2 GLOB 3.6 LAB L501.2000 0.9-2. RATIO Normal 4 A/G 0.9 LAB L501.2200 8.5-10 mg/dL Normal .1 CA 8.5 LAB L501.4100 15-37 U/L Normal AST 19 LAB L501.4305 45-117 U/L Normal ALK P 64 LAB L501.4405 13-56 U/L Normal ALT 24 LAB L501.4600 0.20-1 mg/dL Normal .00 T BILI 0.60 LAB L501.5300 136-14 mmol/L Normal 5 NA 137 LAB L501.5600 3.5-5. mmol/L Normal 1 K 3.5 LAB L501.5900 98-107 mmol/L Normal CL 103 LAB L501.6100 21.0-3 mmol/L Normal 2.0 CO2 27.0 LAB L501.6200 5-15 Normal GAP 7 Performed By: #### L500.4050 #### [facility] [address]. [place], [place], [address] ,SERUM,HCG QUALI. Collected: Status: F Source: [place] 08/29/2017 6:56 AM [facility] REPOSITORY TYPE CODE TESTS RESULT OUT OF REFERENCE UNITS RANGE LAB L700.6700 =>Qualitative mIU/mL Normal HCG Qual < 1 triggr LAB L700.7000 0-9 Nonpreg Negative Normal HCGSQUAL NEGATIVE Performed By: #### L700.6800 #### [facility] [address] [place], [address] ALCOHOL, BLOOD Collected: 08/29/2017 Status: F Source: [place] (MEDICAL)-SERUM 6:56 AM [facility] REPOSITORY TYPE CODE TESTS RESULT OUT OF RANGE REFERENCE UNITS LAB L501.9100 mg/dL Normal SERUM 5.0 ETOH Result Comment: The serum:whole blood ethanol ratio is approximately 1.14 and varies slightly with hematocrit. Medical Alcohol reference interval and critical value in non-tolerant individuals; 50 - 100 Impairment 100 Intoxication 100 - 250 Severe Poisoning 250 - 400 Deep/possible fatal coma Performed By: #### L501.9100 #### [facility] [address] [place], [address] URINE DRUG SCREEN Collected: 08/29/2017 Status: F Source: [place] (VISTA) 6:47 AM [facility] REPOSITORY TYPE CODE TESTS RESULT OUT OF RANGE REFERENCE UNITS LAB L505.0075 TO BE Normal CONFIRMED Result Comment: CONFIRMATORY TESTING FOR ALL POSITIVE URINE DRUG SCREEN RESULTS WILL ONLY BE SENT OUT UPON PHYSICIAN ORDER. VISTA Urine Drug Screen methods provide only preliminary analytical test results. A more specific alternate chemical method must be used in order to obtain a confirmed analytical result. Gas chromatography/mass spectrometery (GC/MS) is the preferred confirmatory method. Clinical consideration and professional judgement should be applied to any drug of abuse test result, particularly when preliminary positive results are used. URINE TCA TESTING MUST BE ORDERED SEPARATELY. USE TEST MNEMONIC: UTCA LAB L505.5005 VISTA UDS PH 5 Normal LAB L505.5015 <1000 High ng/mL AMPHETAMINES POSITIVE LAB L505.5025 < 200 ng/mL BARBITIURATES Normal NEGATIVE LAB L505.5035 < 200 ng/mL BENZODIAZIPINE Normal NEGATIVE LAB L505.5045 < 300 ng/mL COCAINE Normal NEGATIVE LAB L505.5055 < 500 ng/mL ECSTACY Normal NEGATIVE LAB L505.5065 < 300 High ng/mL METHADONE POSITIVE LAB L505.5075 < 300 High ng/mL OPIATES POSITIVE LAB L505.5085 < 25 ng/mL PCP Normal NEGATIVE LAB L505.5095 < 50 ng/mL THC Normal NEGATIVE Performed By: #### L505.5000 #### [facility] [address]. [place], [place], [address] URINALYSIS, COMPLETE Collected: 08/29/2017 Status: F Source: [place] 6:47 AM [facility] REPOSITORY Order Comment: Order Date: 08/29/17 How was Urine Obtained? CLEAN CATCH TYPE CODE TESTS RESULT OUT OF RANGE REFERENCE UNITS LAB L400.3000 Yellow COLOR Normal Yellow LAB L400.3050 Clear Sl Normal CLARITY Cldy LAB L400.3200 Normal mg/dl Normal GLUCOSE, UR NEGATIVE LAB L400.3300 Negative mg/dL Normal BILIRUBIN URINE Negative LAB L400.3400 Negative mg/dl Normal KETONE UR Negative LAB L400.3465 1.002-1.030 Normal SP.GR. DIPSTX 1.020 LAB L400.3550 5.0 - 8.0 pH UR Normal 5.0 LAB L400.3600 Negative mg/dl PROT Normal DIPSTX Negative LAB L400.3700 Normal mg/dl Normal UROBILI Normal LAB L400.3750 Negative Normal NITRITE UR Negative LAB L400.3780 Negative /ul High OCCULT BLOOD-UR 250 LAB L400.3800 Negative /ul High LEUK ESTERASE 500 LAB L400.4050 0-5 /hpf WBC Normal 25-50 SEEN LAB L400.4100 0-5 /hpf Normal RBC-UA 25-50 SEEN LAB L400.4150 5-10 /hpf SQUAM Normal EPI 5-10 SEEN LAB L400.4300 None Seen /hpf 0 Normal BACTERIA SEEN LAB L400.4350 <or=2+ /hpf 0 Normal MUCUS, URINE SEEN Performed By: #### L400.0001 #### [facility] [place], [address] BASIC METABOLIC Collected: 08/14/2017 Status: F Source: [place] PRO[place] (BMP) 12:50 PM [facility] REPOSITORY Order Comment: RESULT(S) PREVIOUSLY REPORTED ON MANUAL REQUISITION DURING DOWNTIME. TYPE CODE TESTS RESULT OUT OF RANGE REFERENCE UNITS LAB L501.0100 74-106 mg/dL Normal GLU 85 Result Comment: Please note revised GLUCOSE reference range effective 2017. LAB L501.1000 7-18 mg/dL Normal BUN 13 LAB L501.1100 0.55-1.02 mg/dL Normal CREAT,SERUM 0.72 Result Comment: The validity of the calculated GFR AND GFRAA in patients over 70 years has not been determined. Clinical correlation is essential. LAB L501.1110 >60 mL/min Normal EST GFR 106 LAB L501.1115 >60 mL/min Normal EST GFR - AA 128 LAB L501.1300 10-20 RATIO Normal BUN/CRE 18.1 LAB L501.2200 8.5-10.1 mg/dL Normal CA 8.9 LAB L501.5300 136-145 mmol/L Normal NA 142 LAB L501.5600 3.5-5.1 mmol/L Normal K 3.5 LAB L501.5900 98-107 mmol/L Normal CL 105 LAB L501.6100 21.0-32.0 mmol/L Normal CO2 31.0 LAB L501.6200 5-15 Normal GAP 6 Performed By: #### L500.2500 #### [facility] [address]. [place], [place], [address] ALCOHOL, BLOOD Collected: 08/14/2017 Status: F Source: [place] (MEDICAL)-SERUM 12:50 PM [facility] REPOSITORY Order Comment: RESULT(S) PREVIOUSLY REPORTED ON MANUAL REQUISITION DURING DOWNTIME. TYPE CODE TESTS RESULT OUT OF RANGE REFERENCE UNITS LAB L501.9100 mg/dL Normal SERUM < 3.0 ETOH Result Comment: The serum:whole blood ethanol ratio is approximately 1.14 and varies slightly with hematocrit. Medical Alcohol reference interval and critical value in non-tolerant individuals; 50 - 100 Impairment 100 Intoxication 100 - 250 Severe Poisoning 250 - 400 Deep/possible fatal coma Performed By: #### L501.9100 #### [facility] [address] [place], [place], [address] ,SERUM,HCG QUALI. Collected: Status: F Source: [place] 08/14/2017 12:50 PM [facility] REPOSITORY Order Comment: RESULT(S) PREVIOUSLY REPORTED ON MANUAL REQUISITION DURING DOWNTIME. TYPE CODE TESTS RESULT OUT OF REFERENCE UNITS RANGE LAB L700.6700 =>Qualitative mIU/mL Normal HCG Qual < 1 triggr LAB L700.7000 0-9 Nonpreg Negative Normal HCGSQUAL NEGATIVE Performed By: #### L700.6800 #### [facility] [address] [place], [address] URINE DRUG SCREEN Collected: 08/14/2017 Status: F Source: [place] (MUNA) 12:50 PM [facility] REPOSITORY Order Comment: RESULT(S) PREVIOUSLY REPORTED ON MANUAL REQUISITION DURING DOWNTIME. List of Drugs Taken or Suspected? . TYPE CODE TESTS RESULT OUT OF RANGE REFERENCE UNITS LAB L505.0075 TO BE Normal CONFIRMED Result Comment: CONFIRMATORY TESTING FOR ALL POSITIVE URINE DRUG SCREEN RESULTS WILL ONLY BE SENT OUT UPON PHYSICIAN ORDER. VISTA Urine Drug Screen methods provide only preliminary analytical test results. A more specific alternate chemical method must be used in order to obtain a confirmed analytical result. Gas chromatography/mass spectrometery (GC/MS) is the preferred confirmatory method. Clinical consideration and professional judgement should be applied to any drug of abuse test result, particularly when preliminary positive results are used. URINE TCA TESTING MUST BE ORDERED SEPARATELY. USE TEST MNEMONIC: UTCA LAB L505.5005 VISTA UDS PH 6 Normal LAB L505.5015 <1000 High ng/mL AMPHETAMINES POSITIVE LAB L505.5025 < 200 High ng/mL BARBITIURATES POSITIVE LAB L505.5035 < 200 ng/mL BENZODIAZIPINE Normal NEGATIVE LAB L505.5045 < 300 ng/mL COCAINE Normal NEGATIVE LAB L505.5055 < 500 ng/mL ECSTACY Normal NEGATIVE LAB L505.5065 < 300 ng/mL METHADONE Normal NEGATIVE LAB L505.5075 < 300 High ng/mL OPIATES POSITIVE LAB L505.5085 < 25 ng/mL PCP Normal NEGATIVE LAB L505.5095 < 50 ng/mL THC Normal NEGATIVE Performed By: #### L505.5000 #### [facility] [address] [place], [address] CBC W/DIFF, AUTOMATED Collected: 08/14/2017 Status: F Source: [place] 12:50 PM [facility] REPOSITORY Order Comment: RESULT(S) PREVIOUSLY REPORTED ON MANUAL REQUISITION DURING DOWNTIME. [facility]. TYPE CODE TESTS RESULT OUT OF RANGE REFERENCE UNITS LAB L100.1000 4.4-11.0 K/mm3 9.6 Normal WBC LAB L100.1200 4.2-5.4 M/mm3 Low 3.98 RBC LAB L100.1300 12.0-15.0 g/dl 12.1 Normal HGB LAB L100.1400 37-47 % Low 36.8 HCT LAB L100.1500 81-99 fL 92.5 Normal MCV LAB L100.1600 27.0-32.0 pg 30.4 Normal MCH LAB L100.1700 32-36 g/gl 32.9 Normal MCHC LAB L100.1810 11.6-14.6 % 12.1 Normal RDW CV LAB L100.1820 35.1-43.9 fl 40.1 Normal RDW SD LAB L100.1900 150-450 K/mm3 294 Normal PLT LAB L100.2000 6.2-12.0 fl 9.4 Normal MPV LAB L100.2100 47-70 % 65.6 Normal NEUT% LAB L100.2200 19-41 % 24.9 Normal LY% LAB L100.2300 0-10 % 5.9 Normal MONO% LAB L100.2400 0-5 % 3.4 Normal EO% LAB L100.2500 0-1 % 0.2 Normal BASO% LAB L100.2550 0.0-0.9 %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 age 14 and 15 - Constipation - Genital herpes 07/17/2012 - Hepatitis B - Infertility, female - Opioid abuse Oxycodone/Roxicet. Pt states will have withdrawal if stops but only admits to two per day. - PID (acute pelvic inflammatory disease) - PMH - PAST MEDICAL HISTORY OF 07/11 23 hour observation for closed head injury - PMH - PAST MEDICAL HISTORY OF right eye - lazy eye - PMH - PAST MEDICAL HISTORY OF 08/2006 hospitalized [facility] for overdose - PMH - PAST MEDICAL HISTORY OF normal color vision - Restless leg - TMJ (dislocation of temporomandibular joint) - Varicella without mention of complication at age 2-3 years per mother PAST SURGICAL HISTORY Procedure Laterality Date - APPENDECTOMY 07/13 - COLONOSCOP W/ OR W/O BRSH SPEC 04/04/12 Colonoscopy - DANDC, DIAG AND/OR THERAPEUTIC 05/05/2017 Suction DANDC for Incomplete - EGD 01/2012 - PAST SURGICAL HISTORY OF Left shoulder surgery FAMILY HISTORY Problem Relation Age of Onset - None Mother - None Father - Allergies Paternal Grandmother allergic to Pcn - Diabetes Paternal Grandmother Also P-Aunts and Uncles - Hypertension Paternal Grandfather - Allergies Maternal Grandmother reaction to sugar in alcoholic beverages Social History Marital status: Single Spouse name: Years of education: 13 Number of children: 0 Occupational History Occupation Employer Comment unemployed Social History Main Topics Smoking status: Current Every Day Smoker Packs/day: 1.00 Years: 2.00 Types: Cigarettes Smokeless status: Never Used Alcohol use: No Drug use: No Comment: former opioid user sober 01/11/15 Sexual activity: Yes Partners with: Male control/protection: Condom Current Outpatient Prescriptions: lamoTRIgine (LAMICTAL) 25 mg tablet ibuprofen (MOTRIN) 600 mg tablet Take 1 tablet by mouth every 6 hours as needed. acetaminophen (MAPAP) 325 mg tablet EVERY 4 HOURS NEEDED cloNIDine HCl (CATAPRES) 0.1 mg tablet Take 0.1 mg by mouth three times daily as needed. prochlorperazine (COMPAZINE) 10 mg tablet Take 1 tablet by mouth every 6 hours as needed (nausea). Cdleeyit-Ad-Ssq-Fe-FA ( VITAMIN) tab Take 1 tablet by mouth once daily. acyclovir (ZOVIRAX) 400 mg tablet Take 1 tablet by mouth twice daily. polyethylene glycol 3350 (MIRALAX, GLYCOLAX) 17 gram/dose powder Take 17 g by mouth once daily. docusate sodium (COLACE) 100 mg capsule Take 1 capsule by mouth once daily. Melatonin 5 mg cap Take by mouth. LYSINE ORAL Take by mouth. cloNIDine-chlorthalidone (CLORPRES) 0.1-15 mg per tablet Take 1 tablet by mouth twice daily. gabapentin (NEURONTIN) 400 mg capsule 600 mg three times daily. topiramate (TOPAMAX) 200 mg tablet No current facility-administered medications for this visit. Allergies As of Date: 05/26/2017 Allergen Noted Reaction FRAGRANCE MIX [OTHER] 12/14/2007 Rash AMOXICILLIN 04/06/2005 Rash DOXYCYCLINE 06/25/2009 GI Upset FLAGYL [METRONIDAZOLE HCL] 10/10/2011 GI Upset NAPROXEN 01/31/2012 GI Upset TRISH [OTHER] 04/06/2005 Rash PENICILLINS 04/06/2005 Hives ULTRAM [TRAMADOL HCL] 10/10/2011 Other: See Comments METAL [OTHER] 04/06/2005 Rash Fully Assessed 05/26/2017 REVIEW OF SYSTEMS Abdomen: No bloating, early satiety, indigestion, or increased flatulence. No abdominal pain, nausea, vomiting, diarrhea, or constipation. Bladder: No dysuria, gross hematuria, urinary frequency, urinary urgency, or incontinence. Breast: No breast lumps, nipple d/c, overlying skin changes, redness or skin retraction. Expanded ROS: N/A Allergies and current medication updated:Yes EXAM: BP 94/60 Wt 102 lb (46.3kg) GENERAL: pleasant, female in no apparent distress HEENT: Normocephalic and atraumatic NECK: Supple and full range of motion DERMATOLOGY: Normal and without lesions ABDOMEN: soft, non-tender and no masses PELVIC: external genitalia normal, normal Bartholin's glands, urethra, [place]'s glands, no vulvar lesions, no cervical lesions, good vaginal support, physiologic discharge present, normal appearing perineal body and perianal region BIMANUAL: uterus normal size, shape and consistency, no adnexal masses and non-tender NEURO: alert and oriented x3,exam grossly non-focal EXTREMITIES: normal ASSESSMENT AND PLAN: 1. High risk sexual behavior - ICD9: V69.2, ICD10: Z72.51 (primary diagnosis) - TRICHOMONAS PREP - GC/CHLAMYDIA DNA DET - HCG QUANTITATIVE - HIV 1,2 COMBO (AG/AB) - HCV QUANT RNA BY PCR - HEP B SURF AG SCRN - SYPHILIS IGG WITH CONF 2. Vaginal odor - ICD9: 625.8, ICD10: N89.8 - BACT/YANG VAG GRAM STAIN - GC/CHLAMYDIA DNA DET 3. Pelvic pain in female - ICD9: 625.9, ICD10: R10.2 - TRICHOMONAS PREP - GC/CHLAMYDIA DNA DET Savannah Sanchez APRN.CNM CNOV Observed: 05/26/2017 Status: COMPLETED Source: [place] 4:15 PM [facility] REPOSITORY Office Visit (WOOB) MARIA T DALLAS ([id number]) 1995 F Date Time Provider Department 05/26/17 4:15 PM SAVANNAH SANCHEZ (MARTINA) WOOB During your visit today, we recorded the following information about you: Blood pressure Weight 94/60 46.3 kg Savannah Sanchez APRN.CNM, APRN.CNM 06/05/2017 6:32 PM Signed Control Panel Builder offered: Patient declines. Maria T Leon Sandyjosue is a 22 year old female who presents for problem visit Pelvic pain HPI: Patient presents today for pain following DANDamp;C. Was instructed to not having intercourse following DANDamp;C and had intercourse with new partner. Denies any increased vaginal discharge or bleeding. Strong vaginal odor. Rating pain 7/10. Nothing effective for pain. PAST MEDICAL HISTORY Diagnosis Date - Axillary abscess - Bipolar I disorder, most recent episode (or current) manic, severe, specified as with psychotic behavior 03/13/08 Dr Coronado - Body piercing lower lip - Chlamydia age 14 and 15 - Constipation - Genital herpes 07/17/2012 - Hepatitis B - Infertility, female - Opioid abuse Oxycodone/Roxicet. Pt states will have withdrawal if stops but only admits to two per day. - PID (acute pelvic inflammatory disease) - PMH - PAST MEDICAL HISTORY OF 07/11 23 hour observation for closed head injury - PMH - PAST MEDICAL HISTORY OF right eye - lazy eye - PMH - PAST MEDICAL HISTORY OF 08/2006 hospitalized [facility] for overdose - PMH - PAST MEDICAL HISTORY OF normal color vision - Restless leg - TMJ (dislocation of temporomandibular joint) - Varicella without mention of complication at age 2-3 years per mother PAST SURGICAL HISTORY Procedure Laterality Date - APPENDECTOMY 07/13 - COLONOSCOP W/ OR W/O BRSH SPEC 04/04/12 Colonoscopy - DANDamp;C, DIAG AND/OR THERAPEUTIC 05/05/2017 Suction DANDamp;C for Incomplete - EGD 01/2012 - PAST SURGICAL HISTORY OF Left shoulder surgery FAMILY HISTORY Problem Relation Age of Onset - None Mother - None Father - Allergies Paternal Grandmother allergic to Pcn - Diabetes Paternal Grandmother Also P-Aunts and Uncles - Hypertension Paternal Grandfather - Allergies Maternal Grandmother reaction to sugar in alcoholic beverages Social History Marital status: Single Spouse name: Years of education: 13 Number of children: 0 Occupational History Occupation Employer Comment unemployed Social History Main Topics Smoking status: Current Every Day Smoker Packs/day: 1.00 Years: 2.00 Types: Cigarettes Smokeless status: Never Used Alcohol use: No Drug use: No Comment: former opioid user sober 01/11/15 Sexual activity: Yes Partners with: Male control/protection: Condom Current Outpatient Prescriptions: lamoTRIgine (LAMICTAL) 25 mg tablet ibuprofen (MOTRIN) 600 mg tablet Take 1 tablet by mouth every 6 hours as needed. acetaminophen (MAPAP) 325 mg tablet EVERY 4 HOURS NEEDED cloNIDine HCl (CATAPRES) 0.1 mg tablet Take 0.1 mg by mouth three times daily as needed. prochlorperazine (COMPAZINE) 10 mg tablet Take 1 tablet by mouth every 6 hours as needed (nausea). Erokijtq-Vk-Cug-Fe-FA ( VITAMIN) tab Take 1 tablet by mouth once daily. acyclovir (ZOVIRAX) 400 mg tablet Take 1 tablet by mouth twice daily. polyethylene glycol 3350 (MIRALAX, GLYCOLAX) 17 gram/dose powder Take 17 g by mouth once daily. docusate sodium (COLACE) 100 mg capsule Take 1 capsule by mouth once daily. Melatonin 5 mg cap Take by mouth. LYSINE ORAL Take by mouth. cloNIDine-chlorthalidone (CLORPRES) 0.1-15 mg per tablet Take 1 tablet by mouth twice daily. gabapentin (NEURONTIN) 400 mg capsule 600 mg three times daily. topiramate (TOPAMAX) 200 mg tablet No current facility-administered medications for this visit. Allergies As of Date: 05/26/2017 Allergen Noted Reaction FRAGRANCE MIX [OTHER] 12/14/2007 Rash AMOXICILLIN 04/06/2005 Rash DOXYCYCLINE 06/25/2009 GI Upset FLAGYL [METRONIDAZOLE HCL] 10/10/2011 GI Upset NAPROXEN 01/31/2012 GI Upset TRISH [OTHER] 04/06/2005 Rash PENICILLINS 04/06/2005 Hives ULTRAM [TRAMADOL HCL] 10/10/2011 Other: See Comments METAL [OTHER] 04/06/2005 Rash Fully Assessed 05/26/2017 REVIEW OF SYSTEMS Abdomen: No bloating, early satiety, indigestion, or increased flatulence. No abdominal pain, nausea, vomiting, diarrhea, or constipation. Bladder: No dysuria, gross hematuria, urinary frequency, urinary urgency, or incontinence. Breast: No breast lumps, nipple d/c, overlying skin changes, redness or skin retraction. Expanded ROS: N/A Allergies and current medication updated:Yes EXAM: BP 94/60 Wt 102 lb (46.3kg) GENERAL: pleasant, female in no apparent distress HEENT: Normocephalic and atraumatic NECK: Supple and full range of motion DERMATOLOGY: Normal and without lesions ABDOMEN: soft, non-tender and no masses PELVIC: external genitalia normal, normal Bartholin's glands, urethra, [place]'s glands, no vulvar lesions, no cervical lesions, good vaginal support, physiologic discharge present, normal appearing perineal body and perianal region BIMANUAL: uterus normal size, shape and consistency, no adnexal masses and non-tender NEURO: alert and oriented x3,exam grossly non-focal EXTREMITIES: normal ASSESSMENT AND PLAN: 1. High risk sexual behavior - ICD9: V69.2, ICD10: Z72.51 (primary diagnosis) - TRICHOMONAS PREP - GC/CHLAMYDIA DNA DET - HCG QUANTITATIVE - HIV 1,2 COMBO (AG/AB) - HCV QUANT RNA BY PCR - HEP B SURF AG SCRN - SYPHILIS IGG WITH CONF 2. Vaginal odor - ICD9: 625.8, ICD10: N89.8 - BACT/YANG VAG GRAM STAIN - GC/CHLAMYDIA DNA DET 3. Pelvic pain in female - ICD9: 625.9, ICD10: R10.2 - TRICHOMONAS PREP - GC/CHLAMYDIA DNA DET Savannah Sanchez APRN.CNM Referring Provider: SELF [200] Allergies As of Date: 05/26/2017 Noted Allergy Reaction fragrance mix [Other] 12/14/2007 2 - Rash AMOXICILLIN 04/06/2005 2 - Rash DOXYCYCLINE 06/25/2009 8 - GI Upset FLAGYL (METRONIDAZOLE HCL) 10/10/2011 8 - GI Upset Comments: Nausea NAPROXEN 01/31/2012 8 - GI Upset Comments: Headache/GI upset Trish [Other] 04/06/2005 2 - Rash PENICILLINS 04/06/2005 4 - Hives ULTRAM (TRAMADOL HCL) 10/10/2011 14 - Other: See Comments Comments: Headache metal [Other] 04/06/2005 2 - Rash Date Reviewed: 05/26/2017 Reviewed by: Naomi Gutierrez Ma - Fully Assessed Reason for Visit: Vaginal Problem [117] Cmt: Discharge and Pain Primary Visit Diagnosis:High risk sexual behavior [Z72.51] Other Visit Diagnoses:Vaginal odor [N89.8] Pelvic pain in female [R10.2] Order(s):BACT/YANG VAG GRAM STAIN [SQBVCNSM] Order #: [id number] FUTURE TRICHOMONAS PREP [SQTRICHO] Order #: [id number]. #:[id number] GC/CHLAMYDIA DNA DET [SQGCCAMP] Order #: [id number]. #:[id number] HCG QUANTITATIVE [SQHCGQT] Order #: [id number] FUTURE HIV 1,2 COMBO (AG/AB) [SQHIV12] Order #: [id number] FUTURE HCV QUANT RNA BY PCR [SQHCQPCR] Order #: [id number] FUTURE HEP B SURF AG SCRN [SQHBSAG] Order #: [id number] FUTURE SYPHILIS IGG WITH CONF [SQSYPHGX] Order #: [id number] FUTURE BACT/YANG VAG GRAM STAIN [SQBVCNSM] Order #: [id number]. #:[id number] Prescriptions as of 05/26/2017 Sig: LAMOTRIGINE 25 MG TABLET IBUPROFEN 600 MG TABLET Take 1 tablet by mouth every * ACETAMINOPHEN 325 MG TABLET EVERY 4 HOURS NEEDED CLONIDINE HCL 0.1 MG TABLET Take 0.1 mg by mouth three ti* PROCHLORPERAZINE MALEATE 10 M* Take 1 tablet by mouth every * VITAMIN,CALCIUM,MINE* Take 1 tablet by mouth once d* ACYCLOVIR 400 MG TABLET Take 1 tablet by mouth twice * POLYETHYLENE GLYCOL 3350 17 G* Take 17 g by mouth once daily. DOCUSATE SODIUM 100 MG CAPSULE Take 1 capsule by mouth once * MELATONIN 5 MG CAPSULE Take by mouth. LYSINE ORAL Take by mouth. CLONIDINE 0.1 MG-CHLORTHALIDO* Take 1 tablet by mouth twice * GABAPENTIN 400 MG CAPSULE 600 mg three times daily. 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] INVALID FOR*04/17/2017 Contact dermatitis and other eczema, due to uns*INVALID FOR*04/17/2017 Unspecified pruritic disorder [L29.9] INVALID FOR*04/17/2017 EXCORIATION///SUPERFICIAL INJURY NEC [T07.XXXA] INVALID FOR* XEROSIS///SEBACEOUS GLAND DIS NEC [L73.8] INVALID FOR* Insect bite NEC [W57.XXXA] INVALID FOR*03/03/2011 Scabies [B86] INVALID FOR*03/03/2011 NONSPECIF SKIN ERUPT NEC [R21] INVALID FOR* OTHER ATOPIC DERMATITIS [L20.89] INVALID FOR* Seborrheic dermatitis, unspecified [L21.9] INVALID FOR*12/16/2014 Ganglion, unspecified [M67.40] INVALID FOR*04/17/2017 Bipolar disorder, unspecified (HCC) [F31.9] INVALID FOR*04/17/2017 Genital herpes [A60.00] INVALID FOR* Migraines [G43.909] INVALID FOR* More... Anxiety [F41.9] INVALID FOR* More... Back ache [M54.9] INVALID FOR* Bipolar affective disorder (HCC) [F31.9] INVALID FOR* Opioid dependence with withdrawal (HCC) [F11.23]INVALID FOR* Fissure in ano [K60.2] INVALID FOR* Opioid abuse [F11.10] INVALID FOR* TMJ (dislocation of temporomandibular joint) [S*INVALID FOR* Axillary abscess [L02.419] INVALID FOR* Unplanned [Z34.90] INVALID FOR* More... Tobacco use in [O99.330] INVALID FOR* More... History of suicidal ideation [Z86.59] INVALID FOR* More... History of herpes genitalis [Z86.19] INVALID FOR* More... Pelvic pain in [O26.899, R10.2] INVALID FOR* More... History of drug abuse [Z87.898] INVALID FOR* More... Patient requested diagnostic testing [Z01.89] INVALID FOR* More... Disposition: Return if symptoms worsen or fail to improve. Follow-up and Disposition History Recorded Encounter Status:Closed by SAVANNAH SANCHEZ on 06/05/17 EMERGENCY DEPARTMENT Observed: 05/22/2017 Status: F Source: [place] SUMMARY 3:56 AM [facility] REPOSITORY [facility] Medical Records Department [address] [place] [id number] Emergency Department Summary 05/22/17 0155 MR#: [id number] Acct: [id number] Name: MARIA T DALLAS Rep #: [id number] : 1995 22 From: Dorian Paul MD PCP: Sean Franz MD Status: DEP ER - ER Visit Summary Date of Service: 05/22/17 Chief Complaint: Pelvic pain History of Present Illness: The patient is a 22 F history of depression and bipolar disorder. Patient recently states that she had a D AND C done for elective AB. Since that time has had some intermittent bleeding and foul-smelling discharge and urine. She complains some lower pelvic pain and back pain. She denies any fever. States that the D AND C was done by Dr. Rojas approximately 3 weeks ago. She does have a history of gonorrhea in the past chlamydia and herpes. She is Ab2 with 1 elective AB and the other one being a miscarriage. Physical Examination: Well-appearing young female. Vital signs are stable afebrile. She does not look septic toxic. She is no acute distress. H EENT exam unremarkable. Neck nontender no lymphadenopathy. Lungs clear to auscultation bilaterally. Heart regular rate and rhythm no murmur. Abdomen is soft distended normal bowel sounds no peritoneal signs. Moving all 4 extremities. Neurologically she is awake and alert. Back exam is unremarkable. Test Results: Urinalysis no signs of urinary tract infection. No white cells. No bacteria no nitrates. Urine negative. Emergency Department Course and Treatment: M and urinalysis and urine will be obtained. Treatment Plan: A pelvic exam was done with female nurse present in the room around 0300. External exam is unremarkable. No bleeding or lesions. On speculum exam there was no blood or lesions. There is a small amount of white discharge at the cervix. There were no signs of gonorrhea chlamydia. No signs of bacterial vaginosis. No signs of a yeast infection. She stated she had mild but was very unimpressive uterine tenderness. Had no adnexal tenderness or adnexal masses. No cervical motion tenderness. The very benign-appearing pelvic exam. Patient will be discharged home to follow-up with her primary care physician Dr. Francisco Rojas. Disposition: Discharge Impression: Pelvic pain. Etiology Status post D AND C for an elective This note was generated with [employer] dictation software. It may contain incorrect words, spelling, and punctuation that were not noted in review of the chart prior to signing ED Disposition - Plan for ED Patient: Chief Complaint: Female C/O Referrals: Sean Franz MD [Primary Care Provider] - What to do if you have Problems For any increased pain, shortness of breath, bleeding, nausea or vomiting, chest pain, or any unexpected problems, contact your Primary Care Provider. Call [facility] ([phone]) or report to the closest Emergency Room. Call 911 if necessary. 05/22/17 0354 <Electronically signed by Dorian Paul MD> Date Dorian Paul MD Cosigner Signature (If Indicated): Date CC: Sean Franz MD ,URINE Collected: 05/22/2017 Status: F Source: [place] 2:20 AM [facility] REPOSITORY TYPE CODE TESTS RESULT OUT OF REFERENCE UNITS RANGE LAB L400.8000 Negative Normal HCGUQUAL Negative Result Comment: Very dilute urine specimens, as indicated by a low specific gravity, may not contain wholesale representative levels of hCG. If is still suspected, a first morning urine specimen should be collected 48 hours later and tested. Performed By: #### L400.7600 #### [facility] [address] [place], [address] URINALYSIS, COMPLETE Collected: 05/22/2017 Status: F Source: [place] 2:20 AM [facility] REPOSITORY Order Comment: How was Urine Obtained? PANEL EDGE SEALER TO SPECIFY TYPE CODE TESTS RESULT OUT OF RANGE REFERENCE UNITS LAB L400.3000 Yellow COLOR Normal Yellow LAB L400.3050 Clear Normal CLARITY Cloudy LAB L400.3200 Normal mg/dl Normal GLUCOSE, UR Normal LAB L400.3300 Negative mg/dL Normal BILIRUBIN URINE Negative LAB L400.3400 Negative mg/dl Normal KETONE UR Negative LAB L400.3465 1.002-1.030 Normal SP.GR. DIPSTX 1.015 LAB L400.3550 5.0 - 8.0 pH UR Normal 7.0 LAB L400.3600 Negative mg/dl PROT Normal DIPSTX Negative LAB L400.3700 Normal mg/dl Normal UROBILI Normal LAB L400.3750 Negative Normal NITRITE UR Negative LAB L400.3780 Negative /ul Normal OCCULT BLOOD-UR Negative LAB L400.3800 Negative /ul LEUK Normal ESTERASE Negative LAB L400.4050 0-5 /hpf WBC 0 Normal SEEN LAB L400.4100 0-5 /hpf 0 Normal RBC-UA SEEN LAB L400.4150 5-10 /hpf SQUAM Normal EPI 10-25 SEEN LAB L400.4300 None Seen /hpf 0 Normal BACTERIA SEEN LAB L400.4350 <or=2+ /hpf 0 Normal MUCUS, URINE SEEN LAB L400.4900 3+ Normal AMORPHOUS Performed By: #### L400.0001 #### [facility] [address] [place], [address] OPERATIVE REPORT Observed: 05/05/2017 Status: F Source: [place] 1:32 PM [facility] REPOSITORY [facility] Medical Records Department [address] [place] [address] Operative Report 05/05/17 1328 MR#: [id number] Acct: [id number] Name: MARIA T DALLAS Rep #: [id number] : 1995 22 From: Willa Toledo MD PCP: Sean Franz MD Status: REG [facility] Y Location: [place] [address] Operative Report Date of Procedure: 05/05/17 Surgeon: Dr. Willa Stoddard Toe Laster: None Pre op Diagnosis: retained products of conception after elective termination of Post OP Diagnosis: same Surgery Performed: suction dilation and curettage Findings: normal sized uterus with no adnexal masses on exam. 7mm suction catheter used, moderate amount of tissue expelled. Complications: none EBL: minimal <5cc implantable devices: none Anesthesia: MAC Operative Note: After informed consent was obtained patient was taken to OR and placed in supine position. Anesthesia was given. patient was placed in yellow [facility] stirrups and prepped and draped in normal sterile fashion. bladder was drained with straight catheter with approximately 75of clear yellow urine expelled. Exam under anesthesia reviewed normal sized uterus with no adnexal masses. Weighted speculum placed in posterior fornix of vaginal, single tooth tenaculum was used to gently grasped anterior lip of cervix. Cervix was then gently dilated in an incremental fashion. Was adequate dilation was achieved the 7mm suction catheter placed and suction started- tissue expelled, once suction tubing free of tissue the catheter was removed. The tissue was then sent to pathology for examination. Uterine cavity intact, no complications. At this time procedure was deemed complete and successful. Tenaculum removed, speculum removed. Good hemostasis appreciated. Vaginal sweep was negative. Instrument and lap count correct x 2. I anticipate normal postoperative course. 05/05/17 1332 <Electronically signed by Willa Toledo MD> Date Willa Stoddard MD CC: Sean Franz MD; Willa Stoddard MD Signed DISCHARGE INSTRUCTION Observed: 05/05/2017 Status: F Source: [place] 1:28 PM [facility] REPOSITORY [facility] Medical Records Department [address] [place] [address] [place] [address] Instructions for Home/Discharge Instructions 05/05/17 1327 MR#: [id number] Acct: [id number] Name: MARIA T DALLAS Rep #: [id number] : 1995 22 From: Willa Toledo MD PCP: Sean Franz MD Status: REG SDC Discharge Diet: No Restrictions Discharge Activity: Return to Normal Activity, May Shower, May Take a Tub Bath - in 2 weeks. Allergies/Adverse Reactions: Allergies nickel [Nickel] Allergy (Verified 05/04/17 08:02) Unknown Penicillins Allergy (Verified 05/04/17 08:02) Shortness of breath doxycycline Adverse Reaction (Verified 05/04/17 08:02) Vomiting metronidazole [From Flagyl] Adverse Reaction (Verified 05/04/17 08:02) Upset Stomach sulfamethoxazole [From Bactrim] Adverse Reaction (Verified 05/04/17 08:02) Upset Stomach trimethoprim [From Bactrim] Adverse Reaction (Verified 05/04/17 08:02) Upset Stomach Medications to take at Discharge Polyethylene Glycol 3350 [Miralax] 17 gm PO DAILY PRN 11/15/13 Topiramate [Topamax] 200 mg PO QHS 09/16/16 Docusate Sodium [Colace] 100 mg PO BID PRN PRN #10 capsule 09/20/16 Acetaminophen [Tylenol Tablet] 650 mg PO Q4H PRN PRN tablet 12/07/16 Clonidine HCl 0.1 mg PO TID PRN PRN 12/07/16 Acyclovir [Zovirax] 400 mg PO BID 04/14/17 Gabapentin [Neurontin] 600 mg PO TIDCM 04/14/17 Pnv No.122/Iron/Folic Acid [ Multi Tablet] 1 each PO DAILY 04/14/17 Potassium Chloride [K-Dur] 20 meq PO BID 10 Days #20 tab 04/14/17 Ibuprofen 600 mg PO TID 05/04/17 Melatonin/Pyridoxine [Melatonin 5 mg Tablet] 2 each PO DAILY 05/04/17 Primary Care Physician: Sean Franz MD [Primary Care Provider] - 05/05/17 5667 <Electronically signed by Willa Toledo MD> Date Willa Stoddard MD CC: Sean Franz MD CBC-COMPLETE BLOOD CNT Collected: 05/05/2017 Status: F Source: [place] NO DIFF 11:20 AM [facility] REPOSITORY TYPE CODE TESTS RESULT OUT OF RANGE REFERENCE UNITS LAB L100.1000 4.4-11.0 K/mm3 Normal WBC 7.1 LAB L100.1200 4.2-5.4 M/mm3 Low RBC 3.67 LAB L100.1300 12.0-15.0 g/dl Low HGB 11.6 LAB L100.1400 37-47 % Low HCT 34.9 LAB L100.1500 81-99 fL Normal MCV 95.1 LAB L100.1600 27.0-32.0 pg Normal MCH 31.6 LAB L100.1700 32-36 g/gl Normal MCHC 33.2 LAB L100.1810 11.6-14.6 % Normal RDW CV 12.5 LAB L100.1820 35.1-43.9 fl Normal RDW SD 42.9 LAB L100.1900 150-450 K/mm3 Normal PLT 264 LAB L100.2000 6.2-12.0 fl Normal MPV 9.2 Performed By: #### L100.0500, B101.7450 #### [facility] [address] [place], [address] TYPE AND SCREEN Collected: 05/05/2017 Status: F Source: [place] 11:20 AM [facility] REPOSITORY Order Comment: Reason for Type AND Screen/Red Cells: SURGERY TYPE CODE TESTS RESULT OUT OF RANGE REFERENCE UNITS LAB B10.0800 O Normal BLOOD TYPE GEL POSITIVE LAB B100.4000 Normal Antibody NEGATIVE Screen Performed By: #### L100.0500, B101.7450 #### [facility] [address] [place], [address] PRODUCTS OF CONCEPTION Observed: 05/05/2017 Status: F Source: [place] 12:00 AM [facility] REPOSITORY Patient: MARIA T DALLAS : 1995 () Acct Num: [id number] Phys: Richi FIGUEROA,Willa Unit Num: [id number] Loc: [facility] Specimen: [id number] Received: 05/05/17 - 1508 Spec Type: PROD CONC TISSUES TISSUES: Product of conception, NOS GROSS DESCRIPTION Received in fixative is one container labeled with the patient's name and designated retained products of conception. The specimen consists of multiple pieces of pink-nunez soft tissue that in aggregate measure 4 x 4.5 x 1 cm. No tissue is identified. The entire specimen is submitted in four cassettes. / KAREN:alycia 05/05/17 TC:5 CPT: 86631 HEADER OPERATION: Dilation and curettage, suction for incomplete PRE-OP DIAGNOSIS: Retained products from termination of TISSUE SUBMITTED: Retained products of conception MICROSCOPIC DESCRIPTION Slides are reviewed. MICROSCOPIC DIAGNOSIS Retained products of conception: [place]id[place], gestational endometrium and infarcted immature chorionic villi ( products of conception). KAREN:alycia 05/08/17 Signed Carlos Malave 05/08/17 <signature on file> Performed By: #### PPOC #### [facility] [address] [place], [address] PROGRESS Observed: 05/02/2017 Status: COMPLETED Source: [place] 11:[address] [facility] REPOSITORY O ID: [id number] Author: Willa Toledo Service: (none) Author Type: Physician Type: Progress Notes Filed: 05/02/2017 12:09 PM Note Text: Control Panel Builder offered: Patient declines. HISTORY and PHYSICAL: Maria T Dallas is a 22 year old female who presents for follow up for incomplete termination of . Pt had Misoprostol given by PP in [facility], last week was seen by [facility] and has U/S which showed Retained POC. Pt was given second dose of cytotec without any bleeding or passage of tissue/clots. Pt reports minimal bleeding now but still with back pain. Pt denies fevers. Pt reports increased depression but denies SI or HI. Pt reports does see multiple counselors but feels like no one is taking her seriously. PAST MEDICAL HISTORY Diagnosis Date - Axillary abscess - Bipolar I disorder, most recent episode (or current) manic, severe, specified as with psychotic behavior 03/13/08 Dr Coronado - Body piercing lower lip - Chlamydia age 14 and 15 - Constipation - Genital herpes 07/17/2012 - Hepatitis B - Infertility, female - Opioid abuse Oxycodone/Roxicet. Pt states will have withdrawal if stops but only admits to two per day. - PID (acute pelvic inflammatory disease) - PMH - PAST MEDICAL HISTORY OF 07/11 23 hour observation for closed head injury - PMH - PAST MEDICAL HISTORY OF right eye - lazy eye - PMH - PAST MEDICAL HISTORY OF 08/2006 hospitalized [facility] for overdose - PMH - PAST MEDICAL HISTORY OF normal color vision - Restless leg - TMJ (dislocation of temporomandibular joint) - Varicella without mention of complication at age 2-3 years per mother PAST SURGICAL HISTORY Procedure Laterality Date - APPENDECTOMY 07/13 - COLONOSCOP W/ OR W/O [facility] SPEC 04/04/12 Colonoscopy - EGD 01/2012 - PAST SURGICAL HISTORY OF Left shoulder surgery FAMILY HISTORY Problem Relation Age of Onset - None Mother - None Father - Allergies Paternal Grandmother allergic to Pcn - Diabetes Paternal Grandmother Also P-Aunts and Uncles - Hypertension Paternal Grandfather - Allergies Maternal Grandmother reaction to sugar in alcoholic beverages Social History Marital status: Single Spouse name: Years of education: 13 Number of children: 0 Occupational History Occupation Employer Comment unemployed Social History Main Topics Smoking status: Current Every Day Smoker Packs/day: 1.00 Years: 2.00 Types: Cigarettes Smokeless status: Never Used Alcohol use: No Drug use: No Comment: former opioid user sober 01/11/15 Sexual activity: Yes Partners with: Male control/protection: Condom Current Outpatient Prescriptions: acetaminophen (MAPAP) 325 mg tablet EVERY 4 HOURS NEEDED cloNIDine HCl (CATAPRES) 0.1 mg tablet Take 0.1 mg by mouth three times daily as needed. prochlorperazine (COMPAZINE) 10 mg tablet Take 1 tablet by mouth every 6 hours as needed (nausea). Jeyzhekd-Ky-Esc-Fe-FA ( VITAMIN) tab Take 1 tablet by mouth once daily. acyclovir (ZOVIRAX) 400 mg tablet Take 1 tablet by mouth twice daily. polyethylene glycol 3350 (MIRALAX, GLYCOLAX) 17 gram/dose powder Take 17 g by mouth once daily. docusate sodium (COLACE) 100 mg capsule Take 1 capsule by mouth once daily. Melatonin 5 mg cap Take by mouth. LYSINE ORAL Take by mouth. cloNIDine-chlorthalidone (CLORPRES) 0.1-15 mg per tablet Take 1 tablet by mouth twice daily. gabapentin (NEURONTIN) 400 mg capsule 600 mg three times daily. topiramate (TOPAMAX) 200 mg tablet No current facility-administered medications for this visit. Allergies As of Date: 05/02/2017 Allergen Noted Reaction FRAGRANCE MIX [OTHER] 12/14/2007 Rash AMOXICILLIN 04/06/2005 Rash DOXYCYCLINE 06/25/2009 GI Upset FLAGYL [METRONIDAZOLE HCL] 10/10/2011 GI Upset NAPROXEN 01/31/2012 GI Upset TRISH [OTHER] 04/06/2005 Rash PENICILLINS 04/06/2005 Hives ULTRAM [TRAMADOL HCL] 10/10/2011 Other: See Comments METAL [OTHER] 04/06/2005 Rash Fully Assessed 05/02/2017 REVIEW OF SYSTEMS Abdomen: No abdominal pain, nausea, vomiting, diarrhea, or constipation. Bladder: no dysuria .. Expanded ROS: GENERAL: No weight loss, malaise or fevers Allergies and current medication updated:Yes EXAM: BP 98/60 Wt 101 lb (45.8kg) GENERAL: pleasant, female in no apparent distress HEENT: Normocephalic, mucus membranes moist and no lesions ABDOMEN: soft, non-tender and no masses PELVIC: external genitalia normal, normal Bartholin's glands, urethra, [place]'s glands, no vulvar lesions, no cervical lesions, good vaginal support, normal appearing perineal body and perianal region, minimal brown blood in vault, cervix closed. BIMANUAL: uterus normal size, shape and consistency, no adnexal masses and non-tender NEURO: alert and oriented x3,exam grossly non-focal EXTREMITIES: normal Limited TV US: lining 1.6cm still with Retained POC. ASSESSMENT AND PLAN: 22yo with retained POC after Termination of 1) Repeat cytotec reviewed but recommend Suction DANDC at this time based on trial of cytotec recently. 2) blood type O+ from previous labs studies with [facility] 3) PRE OP TODAY- consent was obtained- pt was counseled on risks and benefits of surgery including but not limited to bleeding, infection, injury to pelvic structures. 4) ROSALIE to be placed At 4 wks post op Willa Stoddard MD CBC AND DIFFERENTIAL Collected: 04/26/2017 Status: F Source: [place] 4:[address] [facility] REPOSITORY TYPE CODE TESTS RESULT OUT OF REFERENCE UNITS RANGE LAB WBC 3.70-11.00 k/uL WBC High 13.56 LAB RBC 3.90-5.20 m/uL Low RBC 3.83 LAB HGB 11.5-15.5 g/dL Hemoglobin 12.2 LAB HCT 36.0-46.0 % Hematocrit 36.9 LAB MCV 80.0-100.0 fL MCV 96.3 LAB MCH 26.0-34.0 pG MCH 31.9 LAB MCHC 30.5-36.0 g/dL MCHC 33.1 LAB RDWCV 11.5-15.0 % RDW-CV 12.4 LAB PLTCT 150-400 k/uL Platelet Count 264 LAB MPV 9.0-12.7 fL MPV 10.6 LAB ANEUT % Neut% 70.4 LAB AANEUT 1.45-7.50 k/uL Abs Neut High 9.55 LAB ALYMP % Lymph% 21.4 LAB AALYMP 1.00-4.00 k/uL Abs Lymph 2.90 LAB AMONO % Rhea% 6.0 LAB AAMONO <0.87 k/uL Abs Rhea 0.81 LAB AEOS % Eosin% 1.5 LAB AAEOS <0.46 k/uL Abs Eosin 0.21 LAB ABASO % Baso% 0.7 LAB AABASO <0.11 k/uL Abs Baso 0.09 LAB AUNRBC 0 /100 WBC NRBCs 0.0 LAB ABNRBC <0.01 k/uL Absolute nRBC <0.01 LAB DTYP DTYPE Auto Diff Performed By: #### CBCDIF, HCGQT #### [facility] [address] [place], [place] [address] HCG, QUANTITATIVE BL Collected: 04/26/2017 Status: F Source: [place] 4:12 PM [facility] REPOSITORY TYPE CODE TESTS RESULT OUT OF REFERENCE UNITS RANGE LAB HCGQT <5.0 mU/mL HCG, High Quantitative Bl 2719.0 Result Comment: QUANTITATIVE HCG NORMAL RANGES Weeks of Gestation (Weeks Since LMP) 3 Weeks (5.8-71.2 mIU/mL) 4 Weeks (9.5-750 mIU/mL) 5 Weeks (217-7138 mIU/mL) 6 Weeks (158-36648 mIU/mL) 7 Weeks (3697-487929 mIU/mL) 8 Weeks (82334-045389 mIU/mL) 9 Weeks (14105-674624 mIU/mL) 10 Weeks (14684-693201 mIU/mL) 12 Weeks (08749-755417 mIU/mL) Referenced to 4th IS of [facility] Performed By: #### CBCDIF, HCGQT #### [facility] [address] [place], [place] [address] PROGRESS Observed: 04/24/2017 Status: COMPLETED Source: [place] 10:15 AM [facility] REPOSITORY HNO ID: [id number] Author: Savannah Sanchez Service: (none) Author Type: Business Computers Teacher Type: Progress Notes Filed: 04/24/2017 4:06 PM Note Text: Maria T Dallas is a 22 year old female who presents for problem visit. HPI: Was seen in [place], [place] at [facility] for induced .Took Misoprostol on 04/20/17 at 7w5d EGA, passed tissue the next day. Complaint of increased pain, pain on left side and radiating down left leg. Changing pads every 1-2 hours. LMP 02/24/17, Took [place] on 04/21/17, was given 4 tablets. Taking Ibuprofen 800mg PO q8hr. Patient is upset due to increased pain and discomfort. No new sexual partners. PAST MEDICAL HISTORY Diagnosis Date - Axillary abscess - Bipolar I disorder, most recent episode (or current) manic, severe, specified as with psychotic behavior 03/13/08 Dr Coronado - Body piercing lower lip - Chlamydia age 14 and 15 - Constipation - Genital herpes 07/17/2012 - Hepatitis B - Infertility, female - Opioid abuse Oxycodone/Roxicet. Pt states will have withdrawal if stops but only admits to two per day. - PID (acute pelvic inflammatory disease) - PMH - PAST MEDICAL HISTORY OF 07/11 23 hour observation for closed head injury - PMH - PAST MEDICAL HISTORY OF right eye - lazy eye - PMH - PAST MEDICAL HISTORY OF 08/2006 hospitalized [facility] for overdose - PMH - PAST MEDICAL HISTORY OF normal color vision - Restless leg - TMJ (dislocation of temporomandibular joint) - Varicella without mention of complication at age 2-3 years per mother PAST SURGICAL HISTORY Procedure Laterality Date - APPENDECTOMY 07/13 [facility]12 Colonoscopy - EGD 01/2012 - PAST SURGICAL HISTORY OF Left shoulder surgery FAMILY HISTORY Problem Relation Age of Onset - None Mother - None Father - Allergies Paternal Grandmother allergic to Pcn - Diabetes Paternal Grandmother Also P-Aunts and Uncles - Hypertension Paternal Grandfather - Allergies Maternal Grandmother reaction to sugar in alcoholic beverages Social History Marital status: Single Spouse name: Years of education: 13 Number of children: 0 Occupational History Occupation Employer Comment unemployed Social History Main Topics Smoking status: Current Every Day Smoker Packs/day: 1.00 Years: 2.00 Types: Cigarettes Smokeless status: Never Used Alcohol use: No Drug use: No Comment: former opioid user sober 01/11/15 Sexual activity: Yes Partners with: Male control/protection: Condom Current Outpatient Prescriptions: acetaminophen (MAPAP) 325 mg tablet EVERY 4 HOURS NEEDED cloNIDine HCl (CATAPRES) 0.1 mg tablet Take 0.1 mg by mouth three times daily as needed. prochlorperazine (COMPAZINE) 10 mg tablet Take 1 tablet by mouth every 6 hours as needed (nausea). Tpfdvpiq-Be-Ika-Fe-FA ( VITAMIN) tab Take 1 tablet by mouth once daily. acyclovir (ZOVIRAX) 400 mg tablet Take 1 tablet by mouth twice daily. polyethylene glycol 3350 (MIRALAX, GLYCOLAX) 17 gram/dose powder Take 17 g by mouth once daily. docusate sodium (COLACE) 100 mg capsule Take 1 capsule by mouth once daily. Melatonin 5 mg cap Take by mouth. LYSINE ORAL Take by mouth. cloNIDine-chlorthalidone (CLORPRES) 0.1-15 mg per tablet Take 1 tablet by mouth twice daily. gabapentin (NEURONTIN) 400 mg capsule 600 mg three times daily. topiramate (TOPAMAX) 200 mg tablet No current facility-administered medications for this visit. Allergies As of Date: 04/24/2017 Allergen Noted Reaction FRAGRANCE MIX [OTHER] 12/14/2007 Rash AMOXICILLIN 04/06/2005 Rash DOXYCYCLINE 06/25/2009 GI Upset FLAGYL [METRONIDAZOLE HCL] 10/10/2011 GI Upset NAPROXEN 01/31/2012 GI Upset TRISH [OTHER] 04/06/2005 Rash PENICILLINS 04/06/2005 Hives ULTRAM [TRAMADOL HCL] 10/10/2011 Other: See Comments METAL [OTHER] 04/06/2005 Rash Fully Assessed 04/24/2017 REVIEW OF SYSTEMS Abdomen: No bloating, early satiety, indigestion, or increased flatulence. No nausea, vomiting, diarrhea, or constipation. Bladder: No dysuria, gross hematuria, urinary frequency, urinary urgency, or incontinence. Breast: No breast lumps, nipple d/c, overlying skin changes, redness or skin retraction. Expanded ROS: N/A Allergies and current medication updated:Yes EXAM: BP 94/52 Wt 105 lb (47.6kg) GENERAL: pleasant, female in no apparent distress, in mild distress HEENT: Normocephalic and atraumatic NECK: Supple and full range of motion CHEST: Clear to auscultation Normal inspiratory effort Regular rate and rhythm No murmurs, clicks, rubs or gallops ABDOMEN: soft, non-tender and no masses PELVIC: external genitalia normal, normal Bartholin's glands, urethra, [place]'s glands, no vulvar lesions, no cervical lesions, good vaginal support, Small amount of vaginal bleeding present, normal appearing perineal body and perianal region BIMANUAL: uterus normal size, shape and consistency, no adnexal masses and non-tender NEURO: alert and oriented x3,exam grossly non-focal EXTREMITIES: normal U/S today showed thickened endometrium 16mm and left ovarian cyst 3cm, preliminary report ASSESSMENT AND PLAN: 1. in first trimester - ICD9: 637.90, ICD10: Z33.2 -Consulted due to Induced AB. Agrees with plan and would like to see patient back in 48hrs. - PELVIC US WHI - CBC + DIFF - HCG QUANTITATIVE -Cytotec 800mcg intravaginally once. - Ibuprofen for pain -Bleeding precautions given and when to call. Savannah Sanchez CNM Observed: 04/17/2017 Status: F Source: [place] URINE CULTURE 4:04 PM [facility] REPOSITORY Sp. Request/Comment: - Specimen received in preservative Culture Result - 10,000 - <50,000 CFU/ml Normal urogenital lev Performed By: #### URCUL #### [facility] [address] [id number] GC/CHLAMYDIA AMPLIF Collected: 04/17/2017 Status: F Source: [place] 2:56 PM [facility] REPOSITORY TYPE CODE TESTS RESULT OUT OF REFERENCE UNITS RANGE LAB GCCTSR GC/Chlam Amp Cervix Source LAB GCAMPL GC Negative Amplification for Neisseria gonorrhoeae by amplification. LAB CLAMPL Chlamydia Negative Amplif for Chlamydia trachomatis by amplification. Performed By: #### GCCT #### [facility] [address] [place], [place] [address] PROGRESS Observed: 04/17/2017 Status: COMPLETED Source: [place] 2:09 PM [facility] REPOSITORY HNO ID: [id number] Author: Francisco Rojas Service: (none) Author Type: Physician Type: Progress Notes Filed: 04/17/2017 5:25 PM Note Text: INITIAL OB ASSESSMENT OB Provider: Salma Reeves Ma HPI: Maria T Dallas is a 22 year old female here to establish Obstetrical Care. Patient's last menstrual period was 02/24/2017 (exact date). from OB Dating Form. Cycle length: 28-30 days Complaints: pelvic pain, states she has had flu and viral illness, pelvic pain since finding out she is was unplanned, mixed feelings. Obstetric History T0 L0 SAB1 TAB0 Ectopic0 Multiple0 Live Births0 Prior : never History of 4th degree laceration: No Patient's Risk Screening for delivery: Marital Status:Single Partner: Name: n/a PAST MEDICAL HISTORY Diagnosis Date - Axillary abscess - Bipolar I disorder, most recent episode (or current) manic, severe, specified as with psychotic behavior 03/13/08 Dr Coronado - Body piercing lower lip - Chlamydia age 14 and 15 - Constipation - Genital herpes 07/17/2012 - Hepatitis B - Infertility, female - Opioid abuse Oxycodone/Roxicet. Pt states will have withdrawal if stops but only admits to two per day. - PID (acute pelvic inflammatory disease) - PMH - PAST MEDICAL HISTORY OF 07/11 23 hour observation for closed head injury - PMH - PAST MEDICAL HISTORY OF right eye - lazy eye - PMH - PAST MEDICAL HISTORY OF 08/2006 hospitalized Ach for overdose - PMH - PAST MEDICAL HISTORY OF normal color vision - Restless leg - TMJ (dislocation of temporomandibular joint) - Varicella without mention of complication at age 2-3 years per mother PAST SURGICAL HISTORY Procedure Laterality Date - APPENDECTOMY 07/13 - COLONOSCOP W/ OR W/O [facility] SPEC 04/04/12 Colonoscopy - EGD 01/2012 - PAST SURGICAL HISTORY OF Left shoulder surgery Current Outpatient Prescriptions on File Prior to Visit: polyethylene glycol 3350 (MIRALAX, GLYCOLAX) 17 gram/dose powder Take 17 g by mouth once daily. docusate sodium (COLACE) 100 mg capsule Take 1 capsule by mouth once daily. Melatonin 5 mg cap Take by mouth. LYSINE ORAL Take by mouth. cloNIDine-chlorthalidone (CLORPRES) 0.1-15 mg per tablet Take 1 tablet by mouth twice daily. gabapentin (NEURONTIN) 400 mg capsule 600 mg three times daily. topiramate (TOPAMAX) 200 mg tablet nystatin (MYCOSTATIN) 100,000 unit/mL suspension Take 5 mL by mouth four times daily. 1tsp swish in mouth for several minutes, then swallow (or expectorate) 4 times daily until gone. Erythromycin-Benzoyl Peroxide gel ketoconazole (NIZORAL) 2 % cream lithium carbonate 300 mg tablet Take 300 mg by mouth three times daily. traMADol (ULTRAM) 50 mg tablet Take 50 mg by mouth every 6 hours as needed. acyclovir (ZOVIRAX) 400 mg tablet take 1 tablet by mouth three times a day for 10 days fluticasone (FLONASE) 50 mcg/actuation nasal spray Use 2 Sprays in each nostril once daily. Rinse mouth after use. hydrOXYzine pamoate (VISTARIL) 50 mg capsule Take 100 mg by mouth once daily. Pt is taking 2 capsules at bedtime. lidocaine (XYLOCAINE) 2 % jelly Apply 1 application to affected area as needed. No current facility-administered medications on file prior to visit. Review of Systems: GENERAL: intermittent HEENT: Negative for: Headache, Impaired Vision, Ringing in Ears, Nosebleeds NECK: Negative for: Swelling, Pain, Stiffness RESPIRATORY: intermittently GASTROINTESTINAL: Positive for: Constipation MUSCULOSKELETAL: Negative for: Muscle or joint pain, stiffness, Joint swelling NEUROLOGIC/PSYCHIATRIC: Negative for: Weakness, Paralysis, Numbness, Tingling, Tremor, Anxiety, Depression, Memory loss SKIN: Negative for: Rash, Itching GENITOURINARY: Negative for: vaginal itching, vaginal discharge, hematuria or dysuria PHYSICAL EXAM: LMP 02/24/2017 GENERAL: pleasant female in no apparent distress DERMATOLOGY: Normal, without lesions, non-icteric and non-hirsute NECK: Supple, full range of motion, no adenopathy and thyroid normal CHEST: Normal inspiratory effort BREAST: soft, non-tender, symmetric, no dominant mass, normal nipple-areolar complex, no lymphadenopathy and no nipple discharge ABDOMEN: soft, non-tender and no masses NEURO: alert and oriented x3,exam grossly non-focal PELVIS: External genitalia normal without lesions. Perineal body intact. No vaginal or cervical lesions. Cervix closed. No adnexal masses or tenderness. Clinical Pelvimetry: Pelvimetry clinically assessed as adequate Limited OB ultrasound exam: single intrauterine , positive cardiac activity and normal bilateral adnexa ASSESSMENT: 22 year old at 7w3d wks gestational age PLAN: 1) Patient oriented to practice. Discussed nutrition, folic acid supplementation, dietary guidelines, exercise, smoking, alcohol, caffeine, and drug use. Discussed routine OB labs including STD/HIV. Discussed aneuploidy screening options including serum screening and nuchal translucency. CF carrier screening discussed and declined. uncertain of if she is keeping d/w her if she does, we can discuss options for treating her bipolar w/ her psychiatrist pelvic pain- reassured Intermittent viral illnesses, patient does not appear ill today, no congestion or cough Follow up in 3 weeks or sooner prn. Francisco Rojas MD TOXICOLOGY SCREEN,UR Collected: 04/17/2017 Status: F Source: [place] 9:35 AM [facility] REPOSITORY TYPE CODE TESTS RESULT OUT OF REFERENCE UNITS RANGE LAB UPCP2 Negative Negative Phencyclidin e, Urine Result Comment: Cutoff threshold at 25 ng/mL. Cross reactivity with other substances can occur with immunoassay screening. In house validation testing showed 80% of preliminary positive samples were confirmed by mass spectrometry (high specificity, quantitative) testing. Greater than 99% of negative screen results were confirmed by mass spectrometry (high specificity, quantitative) testing. LAB UBENZ2 Negative Benzodiazepines, Ur Negative Result Comment: Cutoff threshold at 200 ng/mL. Cross reactivity with other substances can occur with immunoassay screening. In house validation testing showed 90% of preliminary positive samples were confirmed by mass spectrometry (high specificity, quantitative) testing. 80% of negative screen results were confirmed by mass spectrometry (high specificity, quantitative) testing. LAB UCOC2 Negative Cocaine, Negative Urine Result Comment: Cutoff threshold at 300 ng/mL. Cross reactivity with other substances can occur with immunoassay screening. In house validation testing showed greater than 99% of preliminary positive samples were confirmed by mass spectrometry (high specificity, quantitative) testing. Greater than 99% of negative screen results were confirmed by mass spectrometry (high specificity, quantitative) testing. LAB UAMPH2 Negative Amphetamines, Urine Negative Result Comment: Cutoff threshold at 1000 ng/mL. Cross reactivity with other substances can occur with immunoassay screening. In house validation testing showed 70% of preliminary positive samples were confirmed by mass spectrometry (high specificity, quantitative) testing. Greater than 99% of negative screen results were confirmed by mass spectrometry (high specificity, quantitative) testing. LAB UTHC2 Negative Cannabinoids, Urine Negative Result Comment: Cutoff threshold at 50 ng/mL. Cross reactivity with other substances can occur wtih immunoassay screening. In house validation testing showed 80% of preliminary positive samples were confirmed by mass spectrometry (high specificity, quantitative) testing. Greater than 99% of negative screen results were confirmed by mass spectrometry (high specificity, quantitative) testing. LAB UOPI2 Negative Opiates, Negative Urine Result Comment: Cutoff threshold at 300 ng/mL. Cross reactivity with other substances can occur wtih immunoassay screening. In house validation testing showed greater than 99% of preliminary positive samples were confirmed by mass spectrometry (high specificity, quantitative) testing. 90% of negative screen results were confirmed by mass spectrometry (high specificity, quantitative) testing. LAB UBARB2 Negative Barbiturates, Urine Negative Result Comment: Cutoff threshold at 200 ng/mL. Cross reactivity with other substances can occur with immunoassay screening. In house validation testing showed greater than 99% of preliminary positive samples were confirmed by mass spectrometry (high specificity, quantitative) testing. Greater than 99% of negative screen results were confirmed by mass spectrometry (high specificity, quantitative) testing. LAB UETOH <11 mg/dL <11 Ethanol, Urine LAB UOXYC Negative Oxycodone, Negative Urine Result Comment: Cutoff threshold at 100 ng/mL. Cross reactivity with other substances can occur with immunoassay screening. In house validation testing showed greater than 99% of preliminary positive samples were confirmed by mass spectrometry (high specificity, quantitative) testing. Greater than 99% of negative screen results were confirmed by mass spectrometry (high specificity, quantitative) testing. Comment: Immunoassay screen only. Detection of any drug(s) in this urine toxicology panel is presumptive only. Intended use is for evaluation of suspected acute overdose. These tests are for medical purposes onl y and should not be used for compliance monitoring, legal, or forensic use. If clinically indicated, confirmation by high specificity, quantitative methodology may be requested on the same specimen through Client Services ([phone]) if contacted within 48 hours of initial testing. These tests were developed and their performance characteristics determined by [facility]'s [facility] [place] ([facility]). They have not been cleared or a pproved by the FDA. [facility] is regulated under CLIA as qualified to perform high complexity testing. These tests are used for clinical purposes. They should not be regarded as investigational or for research. Performed By: #### UTOX2 #### [facility] [address] [place], [place] [address] EMERGENCY DEPARTMENT Observed: 04/14/2017 Status: F Source: [place] SUMMARY 10:34 PM [facility] REPOSITORY [facility] Medical Records Department [address] [place] [address] Emergency Department Summary 04/14/17 1753 MR#: [id number] Acct: [id number] Name: MARIA T DALLAS Rep #: [id number] : 1995 22 From: Ramesh Spicer DO PCP: Sean Franz MD Status: DEP ER - ER Visit Summary Date of Service: 04/14/17 Chief Complaint: [] Weakness History of Present Illness: The patient is a 22 F [] complaining of flulike symptoms during the peak of flu season. Patient reports she is 67 weeks . Patient reports waking from her nap with slight numbness to her face and upper extremities. She reports that feeling has resolved. She reports she is concerned why her flulike symptoms have lasted 3 weeks. Denies fevers. Denies dysuria. Denies vaginal bleeding. Denies abdominal pain. No other complaints at this time. Physical Examination: [] Afebrile, vital signs stable. Young female in no acute distress. Cardiovascular exam is regular rate and rhythm. Lungs are clear to auscultation. Abdomen is soft and nontender. Test Results: [] CBC, BMP reveals a potassium low at 3.2. Otherwise normal. Chest x-ray negative. Emergency Department Course and Treatment: [] Patient was given a KCl tablet for hypokalemia. Her hypokalemia may explain some of her numbness. She was given a short-term prescription for KCl tablets #10. She was encouraged to follow-up with her [facility] or PCP. Treatment Plan: [] Follow-up with primary care physician. Disposition: [] Discharge, stable. Impression: [] URI Hypokalemia This note was generated with [employer] dictation software. It may contain incorrect words, spelling, and punctuation that were not noted in review of the chart prior to signing ED Disposition - Plan for ED Patient: Chief Complaint: General Illness Referrals: Sean Franz MD [Primary Care Provider] - What to do if you have Problems For any increased pain, shortness of breath, bleeding, nausea or vomiting, chest pain, or any unexpected problems, contact your Primary Care Provider. Call [facility] ([phone]) or report to the closest Emergency Room. Call 911 if necessary. 04/14/172233 <Electronically signed by Ramesh Spicer DO> Date Ramesh Spicer DO Cosigner Signature (If Indicated): Date CC: Sean Franz MD DISCHARGE INSTRUCTION Observed: 04/14/2017 Status: F Source: [place] 7:37 PM [facility] REPOSITORY [facility] Medical Records Department [address] [place] [address] Discharge Instruction 04/14/171934 MR#: [id number] Acct: [id number] Name: MARIA T DALLAS Rep #: [id number] : 1995 22 From: Ramesh Spicer DO PCP: Sean Franz MD Status: REG ER ED Disposition - Plan for ED Patient: Disposition: Home or Assisted Living Chief Complaint: General Illness Instructions: Discharge Instructions for Hypokalemia, ED Diet High Potassium Prescriptions: Potassium Chloride [K-Dur] 20 meq PO BID 10 Days #20 tab Referrals: Sean Franz MD [Primary Care Provider] - What to do if you have Problems For any increased pain, shortness of breath, bleeding, nausea or vomiting, chest pain, or any unexpected problems, contact your Primary Care Provider. Call [facility] ([phone]) or report to the closest Emergency Room. Call 911 if necessary. 04/14/171936 <Electronically signed by Ramesh Spicer DO> Date Ramesh Spicer DO Cosigner Signature (If Indicated): Date CC: Sean Franz MD CBC W/DIFF, AUTOMATED Collected: 04/14/2017 Status: F Source: [place] 6:05 PM [facility] REPOSITORY TYPE CODE TESTS RESULT OUT OF RANGE REFERENCE UNITS LAB L100.1000 4.4-11.0 K/mm3 Normal WBC 8.8 LAB L100.1200 4.2-5.4 M/mm3 Low RBC 3.76 LAB L100.1300 12.0-15.0 g/dl Low HGB 11.9 LAB L100.1400 37-47 % Low HCT 35.1 LAB L100.1500 81-99 fL Normal MCV 93.4 LAB L100.1600 27.0-32.0 pg Normal MCH 31.6 LAB L100.1700 32-36 g/gl Normal MCHC 33.9 LAB L100.1810 11.6-14.6 % Normal RDW CV 13.2 LAB L100.1820 35.1-43.9 fl High RDW SD 44.7 LAB L100.1900 150-450 K/mm3 Normal PLT 212 LAB L100.2000 6.2-12.0 fl Normal MPV 9.5 LAB L100.2100 47-70 % Normal NEUT% 66.2 LAB L100.2200 19-41 % Normal LY% 26.6 LAB L100.2300 0-10 % Normal MONO% 5.5 LAB L100.2400 0-5 % Normal EO% 1.3 LAB L100.2500 0-1 % Normal BASO% 0.2 LAB L100.2550 0.0-0.9 % Normal IM GRAN % 0.200 Result Comment: IG% - Immature Granulocytes (promyelocytes, myelocytes and metamyelocytes) > 1% indicates that a LEFT SHIFT is Present. LAB L100.2620 2.0-7.7 X10 3/uL Normal Absolute Neut 5.8 LAB L100.2720 0.83-4.51 X10 3/ul Normal Absolute Lymph 2.33 Performed By: #### L100.0100 #### [facility] [address] [place], [place], [id number] BASIC METABOLIC Collected: 04/14/2017 Status: F Source: [place] PROFILE (BMP) 6:05 PM [facility] REPOSITORY TYPE CODE TESTS RESULT OUT OF RANGE REFERENCE UNITS LAB L501.0100 74-106 mg/dL Normal GLU 82 LAB L501.1000 7-18 mg/dL Normal BUN 12 LAB L501.1100 0.55-1.02 mg/dL Normal 0.60 CREAT,SERUM Result Comment: The validity of the calculated GFR AND GFRAA in patients over 70 years has not been determined. Clinical correlation is essential. LAB L501.1110 >60 mL/min Normal EST GFR 131 Result Comment: Non- GFR Calc LAB L501.1115 >60 mL/min Normal EST GFR - AA 159 Result Comment: GFR Calc LAB L501.1255 ml/min Normal Estimated CRCL 101.34 LAB L501.1300 10-20 RATIO High BUN/CRE 20.1 LAB L501.2200 8.5-10 mg/dL .1 CA Normal 8.5 LAB L501.5300 136-14 mmol/L 5 NA Normal 141 LAB L501.5600 3.5-5. mmol/L Low 1 K 3.2 LAB L501.5900 98-107 mmol/L High CL 110 LAB L501.6100 21.0-3 mmol/L 2.0 CO2 Normal 23.0 LAB L501.6200 5-15 GAP Normal 8 Performed By: #### L500.2500 #### [facility] [address] [place], [place], [address] CHEST PA AND LATERAL Observed: 04/14/2017 Status: F Source: [place] 5:53 PM [facility] REPOSITORY [facility] Imaging Services [address] [address] Chest PA and Lateral MR#: [id number] Acct: [id number] Name: MARIA T DALLAS Rep #: [id number] : 1995 F 22 From: Sy Campoverde DO PCP: Sean Franz MD Status: REG ER Study: Chest PA and Lateral Date of Exam: 04/14/17 Exam# [id number] Ordering Dr: Ramesh Spicer DO STUDY: X-RAY CHEST REASON FOR EXAM: Female, 22 years old. 2 symptoms. 6 week . TECHNIQUE: PA and lateral views of the chest. COMPARISON: November 15, 2013. FINDINGS: The lungs are clear and expanded. There is no demonstrated pleural abnormality. Normal size heart. Normal mediastinum and marjorie. Normal visualized pulmonary arteries. Normal visualized aortic arch and descending thoracic aorta. Normal visualized thoracic spine. Normal visualized ribs, clavicles, and shoulders. There is no demonstrated abnormality of the visualized soft tissue structures of the upper abdomen. RAD/Chest PA and Lateral IMPRESSION: Normal x-ray examination of the chest. There is no interval change. Electronically Signed: Sy Campoverde DO at 18:52 EST Tel [phone], Service support , CC: Sean Franz MD; Ramesh Spicer DO Cadet Deck: Signed HCG, QUANTITATIVE BL Collected: 04/13/2017 Status: F Source: [place] 12:[address] [facility] REPOSITORY TYPE CODE TESTS RESULT OUT OF REFERENCE UNITS RANGE LAB HCGQT <5.0 mU/mL [place], [place] [address].0 Result Comment: QUANTITATIVE HCG NORMAL RANGES Weeks of Gestation (Weeks Since LMP) 3 Weeks (5.8-71.2 mIU/mL) 4 Weeks (9.5-750 mIU/mL) 5 Weeks (217-7138 mIU/mL) 6 Weeks (158-60057 mIU/mL) 7 Weeks (3697-465338 mIU/mL) 8 Weeks (37679-726651 mIU/mL) 9 Weeks (97558-133689 mIU/mL) 10 Weeks (27840-254685 mIU/mL) 12 Weeks (24147-589718 mIU/mL) Referenced to 4th IS of [facility] Performed By: #### HCGQT #### [facility] [address] [place], [place] [address] OBSOLETE Observed: 04/07/2017 Status: COMPLETED Source: [place] 12:00 AM [facility] REPOSITORY Refill (INTMWS) MARIA T DALLAS Edward ([id number]) 1995 F Date Time Provider Department 04/07/17 SEAN FRANZ INTKaleeWS During your visit today, we recorded the following information about you: Marcio Almodovar LPN 04/07/2017 12:31 PM Signed Patient walked into [facility] today. Patient stated that she is and is c/o severe constipation. Patient stated that she seen the [facility] nurse yesterday. She was given the list of meds that she is able to take while . Advised patient that she needs to go by that list. Patient stated that the list said she can take Miralax. Patient was on this in the past and is needing a refill. Med is pending. Please review and advise. Marcio Almodovar LPN 04/07/2017 2:41 PM Signed The following approved medication requests have been transmitted electronically. Signed Prescriptions Disp Refills polyethylene glycol 3350 (MIRALAX, GLYCOLAX) 17 gram/dose powder 1 Bottle 0 Sig: Take 17 g by mouth once daily. CONOR: No Authorizing Provider: SEAN FRANZ LPN Allergies As of Date: 04/07/2017 Noted Allergy Reaction fragrance mix [Other] 12/14/2007 2 - Rash AMOXICILLIN 04/06/2005 2 - Rash DOXYCYCLINE 06/25/2009 8 - GI Upset FLAGYL (METRONIDAZOLE HCL) 10/10/2011 8 - GI Upset Comments: Nausea NAPROXEN 01/31/2012 8 - GI Upset Comments: Headache/GI upset Trish [Other] 04/06/2005 2 - Rash PENICILLINS 04/06/2005 4 - Hives ULTRAM (TRAMADOL HCL) 10/10/2011 14 - Other: See Comments Comments: Headache metal [Other] 04/06/2005 2 - Rash Date Reviewed: 04/06/2017 Reviewed by: Deirdre Johnson RN - Fully Assessed Reason for Visit: Refill Request [94] Cmt: miralax Visit Diagnosis:Constipation, unspecified constipation type [K59.00] Order(s):polyethylene glycol 3350 (MIRALAX, GLYCOLAX) 17 gram/dose powderTake 17 g by mouth once daily.Disp: 1 BottleRfl: 0 Prescriptions as of 04/07/2017 Sig: POLYETHYLENE GLYCOL 3350 17 G* Take 17 g by mouth once daily. MELATONIN 5 MG CAPSULE Take by mouth. LYSINE ORAL Take by mouth. AZITHROMYCIN 250 MG TABLET Take 2 tablets day one, then,* NYSTATIN 100,000 UNIT/ML ORAL* Take 5 mL by mouth four times* ERYTHROMYCIN-BENZOYL PEROXIDE* KETOCONAZOLE 2 % TOPICAL CREAM LITHIUM CARBONATE 300 MG TABL* Take 300 mg by mouth three ti* TRAMADOL 50 MG TABLET Take 50 mg by mouth every 6 h* CLONIDINE 0.1 MG-CHLORTHALIDO* Take 1 tablet by mouth twice * ACYCLOVIR 400 MG TABLET take 1 tablet by mouth three * FLUTICASONE 50 MCG/ACTUATION * Use 2 Sprays in each nostril * HYDROXYZINE PAMOATE 50 MG CAP* Take 100 mg by mouth once cliff* GABAPENTIN 400 MG CAPSULE 600 mg three times daily. LIDOCAINE 2 % MUCOSAL JELLY Apply 1 application to affect* TOPIRAMATE 200 MG TABLET Problem List As Of Date 04/07/2017 Noted Resolved DERMATITIS NEC [L25.8] INVALID FOR* DERMATITIS DUE TO METALS [L23.0] INVALID FOR* DERMATITIS NOS [L25.9] INVALID FOR* PRURITIC DISORDER NOS [L29.9] INVALID FOR* EXCORIATION///SUPERFICIAL INJURY NEC [T07.XXXA] INVALID FOR* XEROSIS///SEBACEOUS GLAND DIS NEC [L73.8] INVALID FOR* Insect bite NEC [W57.XXXA] INVALID FOR*03/03/2011 Scabies [B86] INVALID FOR*03/03/2011 NONSPECIF SKIN ERUPT NEC [R21] INVALID FOR* OTHER ATOPIC DERMATITIS [L20.89] INVALID FOR* Seborrheic dermatitis, unspecified [L21.9] INVALID FOR*12/16/2014 GANGLION NOS [M67.40] INVALID FOR* BIPOLAR DISORDER NOS [F31.9] INVALID FOR* Genital herpes [A60.00] INVALID FOR* Migraines [G43.909] INVALID FOR* More... Anxiety [F41.9] INVALID FOR* More... Back ache [M54.9] INVALID FOR* Bipolar affective disorder (HCC) [F31.9] INVALID FOR* Opioid dependence with withdrawal (HCC) [F11.23]INVALID FOR* Fissure in ano [K60.2] INVALID FOR* Opioid abuse [F11.10] INVALID FOR* TMJ (dislocation of temporomandibular joint) [S*INVALID FOR* Axillary abscess [L02.419] INVALID FOR* Unplanned [Z34.90] INVALID FOR* More... Tobacco use in [O99.330] INVALID FOR* More... History of suicidal ideation [Z86.59] INVALID FOR* More... History of herpes genitalis [Z86.19] INVALID FOR* More... Pelvic pain in [O26.899, R10.2] INVALID FOR* More... History of drug abuse [Z87.898] INVALID FOR* More... Patient requested diagnostic testing [Z01.89] INVALID FOR* More... Prescriptions ordered this encounter Disp Refills Start End POLYETHYLENE GLYCOL 3350 17 GRAM/DOS* 1 Kalia* 0 04/07/2017 Route: ORAL Sig: Take 17 g by mouth once daily. Medications Discontinued During This Encounter polyethylene glycol 3350 (MIRALAX, G* 1 Kalia* 0 07/27/2016 04/07/2017 Route: ORAL Sig: Take 17 g by mouth once daily. Disc: Reason for discontinue is not on file. Encounter Status:Closed by MARCIO ALMODOVAR LPN on 04/07/17 PROGRESS Observed: 04/06/2017 Status: COMPLETED Source: [place] 5:[address] [facility] REPOSITORY [facility] ID: [id number] Author: Deirdre Johnson RN Service: (none) Author Type: (none) Type: Progress Notes Filed: 04/06/2017 5:17 PM Note Text: #: 1, Date: 02/25/11, Sex: None, Weight: None, GA: None, Delivery: None, Apgar1: None, Apgar5: None, Living: None, Comments: None #: 2, Date: None, Sex: None, Weight: None, GA: None, Delivery: None, Apgar1: None, Apgar5: None, Living: None, Comments: None HCG, QUANTITATIVE BL Collected: 04/06/2017 Status: F Source: [place] 10:59 AM [facility] REPOSITORY TYPE CODE TESTS RESULT OUT OF REFERENCE UNITS RANGE LAB HCGQT <5.0 mU/mL [place], [place] 24376.0 Result Comment: QUANTITATIVE HCG NORMAL RANGES Weeks of Gestation (Weeks Since LMP) 3 Weeks (5.8-71.2 mIU/mL) 4 Weeks (9.5-750 mIU/mL) 5 Weeks (217-7138 mIU/mL) 6 Weeks (158-01407 mIU/mL) 7 Weeks (3697-429182 mIU/mL) 8 Weeks (54456-780107 mIU/mL) 9 Weeks (26601-743773 mIU/mL) 10 Weeks (72152-621292 mIU/mL) 12 Weeks (40184-969628 mIU/mL) Referenced to 4th IS of [facility] Performed By: #### HCGQT #### [facility] [address] [place] [address] CNNURSE Observed: 04/06/2017 Status: COMPLETED Source: [place] 9:30 AM [facility] REPOSITORY Nurse Visit (WOOB) MARIA T DALLAS ([id number]) 1995 F Date Time Provider Department 04/06/17 9:30 AM NURSE PNOB [facility] WOOB During your visit today, we recorded the following information about you: Last Period 02/24/17 Deirdre Johnson RN 04/06/2017 10:23 AM Signed SEQUENTIAL SCREENINGS The [facility] offers sequential screenings for women who are interested in screenings for chromosomal abnormalities and certain defects during a . The sequential screen combines ultrasound and blood tests to determine the risk of chromosomal abnormalities, including Down's Syndrome (Trisomy 21) and Trisomy 18, as well as open neural tube defects including spina bifida. Ultrasound examination is performed between 11 weeks and 13 weeks gestational age. Blood tests are drawn after the ultrasound and again later in the between 15 and 21 weeks gestational age. Please let your physician know if you are interested in this testing. It will require an appointment with our switch technician. This is not an ultrasound performed by a physician in our office during a routine visit. SIGNS AND SYMPTOMS OF LABOR 1. Contractions every 10 minutes or more often 2. Clear, pink, or brownish fluid (water) leaking from vagina 3. Feeling that baby is pushing down, pressure 4. Low, dull backache 5. Cramps that feel like a period 6. Cramps with or without diarrhea If you notice any of the above symptoms, contact our office at [phone] and ask to speak with a nurse. After hours, you can call doctors registry at [phone] OR call [facility] at [phone] and ask to have the doctor auction clerk paged. If you consider this an emergency, dial 9-1-1 or go to your nearest emergency department. Cord-Blood Banking Up until recently, the umbilical cord--along with the blood that remained in it after a baby was born and the cord cut--was simply discarded by the hospital. Then, in the late 1980s, researchers discovered that cord blood possessed unusual properties that made it useful in the treatment of patients with some cancers and other illnesses. While the actual process of collecting cord blood is straightforward, many parents are not even aware that this option now exists, much less familiar with all the issues involved. The case for saving your baby's cord blood The blood running back and forth between your baby and the placenta is full of immature cells called stem cells. Unlike embryonic stem cells, which have the ability to develop into any type of body cell, cord-blood stem cells already are locked into a certain, vital function: making all the different components of the blood, such as platelets, white blood cells, and red blood cells-serving, in effect, like bone marrow. When transfused into a patient whose own blood cells have faulty genetic coding or have been destroyed by chemotherapy or other cancer treatments, the cord-blood cells can implant themselves in the bone marrow and generate legions of new, healthy cells. These days, cord-blood transplants most commonly are used in cancer patients when a donor can't be found for a bone-marrow transplant. The treatment is particularly effective in young patients-the [facility] reports a 70 percent success rate in children, but only 20 to 40 percent in adults. Researchers envision improving those odds and see many future applications as well, such as curing sickle cell disease and other blood-related genetic illnesses. So there is a possibility that your child, or someone else, may need these super-healthy and versatile cells one day. The drawbacks Aside from not knowing about this medical option, the main reason most people do not save their baby's stem cells is cost. In a private blood bank, the initial costs run from $275 to $1,500. Most also charge a yearly storage fee of $50 to $95. The advantage of using a private bank is that your sample is saved for only you to use. An alternative to private banking Public cord-blood aaron are an alternative. These cost no money to use, but your sample is not specifically saved for you. Another person with a more immediate need may use it. If the time should come that you need stem cells, yours may still be available, or you may use donations from other people without charge. You also can direct your sample to go to a relative with an immediate need if the blood type matches. Anyone else needing to use stem cells from a public bank who has not been a donor must pay for it, sometimes tens of thousands of dollars. Will my family benefit from saving stem cells? Right now, situations in which stem cells would be helpful are quite rare. As mentioned earlier, stem-cell transplants are most commonly used for rare genetic conditions and for some types of cancer, including leukemia and lymphoma. And even with these present uses, many questions remain. In cancer treatment, for example, some researchers are concerned about the wisdom of transplanting back into the child the same cells that already showed a propensity to become malignant. Doctors also aren't sure if the number of cells taken at the time of would be enough to treat a full-grown 16-year-old. It is also not completely clear how active the cells would be after years of being stored. The treatment is so new and rare, we just don't have the data yet to resolve these important issues. What do the experts say? The [employer] encourages philanthropic blood banking in public aaron, but only for families with a current or potential need. Blood-bank proponents encourage any kind of banking, pointing out that research is getting closer and closer to many diverse, live-saving applications. How do I decide? Each family must weigh the pros and cons for themselves. Some families say that any cost is worth their peace of mind. Others say that in the face of uncertainty about the effectiveness of the treatment, they will use their resources elsewhere. Some choose the middle ground of donating publicly, knowing that their sample might benefit another family, if not themselves. For more information, ask your doctor or nurse, and be sure to check out our article on the technical aspects of cord-blood banking. Technical Aspects of Cord-Blood Banking If you are interested in storing your baby's umbilical-cord blood because of its possible use in emerging medical treatments, you must make arrangements with a blood bank before your child is born. The collection procedure is quite simple: After delivery of the baby, the umbilical cord is clamped and cut in the usual way. The blood that remains in the umbilical-cord vessels is then collected in sterile containers. The blood may be removed from the cord with a large needle or allowed to flow freely, depending on the company's collection system. The containers may look like large test tubes or like the plastic bags used in a blood bank. It does not cause the mother or the baby any pain to collect the blood, and no blood is taken that the baby needs at the moment. The nurse, greige goods marker, or physician will then label the samples, check them over with you, and package them for a special pickup arranged with a commercial carrier. When the blood arrives at the blood-bank facility, it is processed and the parents are notified. It is then kept in an advanced storage system for years. How do I know that my sample is safe? Power outages and bankruptcies potentially could threaten any organization, but so far none have been reported. It is to be hoped that the scientists in these aaron would arrange for safe transfer to another facility if the need arose. YOU MUST MAKE ARRANGEMENTS AHEAD OF TIME! Public cord-blood aaron--DONATION: [employer] [phone] [facility]'s Placental Blood Program, [facility] Umbilical Cord Blood Bank, Private cord-blood aaron--SAVING FOR YOUR OWN USE: [employer], (I think this is the least expensive) [employer] [phone] [employer], ([phone]) [employer] [place] [facility], [phone]-CORD Cells, [phone] [place] [facility], Cord Blood Registry, (234) C[employer]BLOOD [employer], An Internet search may provide you with additional listings. Deirdre Johnson RN 04/06/2017 5:17 PM Signed #: 1, Date: [birth year], Sex: None, Weight: None, GA: None, Delivery: None, Apgar1: None, Apgar5: None, Living: None, Comments: None #: 2, Date: None, Sex: None, Weight: None, GA: None, Delivery: None, Apgar1: None, Apgar5: None, Living: None, Comments: None Referring Provider: SELF [200] Allergies As of Date: 04/06/2017 Noted Allergy Reaction fragrance mix [Other] 12/14/2007 2 - Rash AMOXICILLIN 04/06/2005 2 - Rash DOXYCYCLINE 06/25/2009 8 - GI Upset FLAGYL (METRONIDAZOLE HCL) 10/10/2011 8 - GI Upset Comments: Nausea NAPROXEN 01/31/2012 8 - GI Upset Comments: Headache/GI upset Trish [Other] 04/06/2005 2 - Rash PENICILLINS 04/06/2005 4 - Hives ULTRAM (TRAMADOL HCL) 10/10/2011 14 - Other: See Comments Comments: Headache metal [Other] 04/06/2005 2 - Rash Date Reviewed: 04/06/2017 Reviewed by: Deirdre Johnson RN - Fully Assessed Reason for Visit: Care [86] Cmt: Pre-New OB Primary Visit Diagnosis:High risk , antepartum [O09.90] Other Visit Diagnoses:Unplanned [Z34.90] Tobacco use during , antepartum [O99.330] History of suicidal ideation [Z86.59] History of herpes genitalis [Z86.19] Pelvic pain in [O26.899, R10.2] History of drug abuse [Z87.898] Patient requested diagnostic testing [Z01.89] Prescriptions as of 04/06/2017 Sig: MELATONIN 5 MG CAPSULE Take by mouth. LYSINE ORAL Take by mouth. AZITHROMYCIN 250 MG TABLET Take 2 tablets day one, then,* CLONIDINE 0.1 MG-CHLORTHALIDO* Take 1 tablet by mouth twice * ACYCLOVIR 400 MG TABLET take 1 tablet by mouth three * POLYETHYLENE GLYCOL 3350 17 G* Take 17 g by mouth once daily. GABAPENTIN 400 MG CAPSULE 600 mg three times daily. TOPIRAMATE 200 MG TABLET NYSTATIN 100,000 UNIT/ML ORAL* Take 5 mL by mouth four times* ERYTHROMYCIN-BENZOYL PEROXIDE* KETOCONAZOLE 2 % TOPICAL CREAM LITHIUM CARBONATE 300 MG TABL* Take 300 mg by mouth three ti* TRAMADOL 50 MG TABLET Take 50 mg by mouth every 6 h* FLUTICASONE 50 MCG/ACTUATION * Use 2 Sprays in each nostril * HYDROXYZINE PAMOATE 50 MG CAP* Take 100 mg by mouth once cliff* LIDOCAINE 2 % MUCOSAL JELLY Apply 1 application to affect* Medication notes this encounter NYSTATIN 100,000 UNIT/ML ORAL SUSPENSION >> Deirdre Johnson RN 04/06/2017 10:04 AM >> DEIRDRE JOHNSON RN [facility] Apr 06, 2017 10:04 AM Pt no longer using ERYTHROMYCIN-BENZOYL PEROXIDE 3 %-5 % TOPICAL GEL >> Deirdre Johnson RN 04/06/2017 10:01 AM >> DEIRDRE JOHNSON RN [facility] Apr 06, 2017 10:01 AM Pt no longer using KETOCONAZOLE 2 % TOPICAL CREAM >> Deirdre Johnson RN 04/06/2017 10:04 AM >> DEIRDRE JOHNSON RN [facility] Apr 06, 2017 10:04 AM Pt no longer using FLUTICASONE 50 MCG/ACTUATION NASAL SPRAY,SUSPENSION >> Deirdre Johnson RN 04/06/2017 10:01 AM >> DEIRDRE JOHNSON RN [facility] Apr 06, 2017 10:01 AM Pt no longer using HYDROXYZINE PAMOATE 50 MG CAPSULE >> Deirdre Johnson RN 04/06/2017 10:03 AM >> DEIRDRE JOHNSON RN [facility] Apr 06, 2017 10:03 AM Pt no longer using LIDOCAINE 2 % MUCOSAL JELLY >> Deirdre Johnson RN 04/06/2017 10:04 AM >> DEIRDRE JOHNSON RN [facility] Apr 06, 2017 10:04 AM Pt no longer using Problem List As Of Date 04/06/2017 Noted Resolved DERMATITIS NEC [L25.8] INVALID FOR* DERMATITIS DUE TO METALS [L23.0] INVALID FOR* DERMATITIS NOS [L25.9] INVALID FOR* PRURITIC DISORDER NOS [L29.9] INVALID FOR* EXCORIATION///SUPERFICIAL INJURY NEC [T07.XXXA] INVALID FOR* XEROSIS///SEBACEOUS GLAND DIS NEC [L73.8] INVALID FOR* Insect bite NEC [W57.XXXA] INVALID FOR*03/03/2011 Scabies [B86] INVALID FOR*03/03/2011 NONSPECIF SKIN ERUPT NEC [R21] INVALID FOR* OTHER ATOPIC DERMATITIS [L20.89] INVALID FOR* Seborrheic dermatitis, unspecified [L21.9] INVALID FOR*12/16/2014 GANGLION NOS [M67.40] INVALID FOR* BIPOLAR DISORDER NOS [F31.9] INVALID FOR* Genital herpes [A60.00] INVALID FOR* Migraines [G43.909] INVALID FOR* More... Anxiety [F41.9] INVALID FOR* More... Back ache [M54.9] INVALID FOR* Bipolar affective disorder (HCC) [F31.9] INVALID FOR* Opioid dependence with withdrawal (HCC) [F11.23]INVALID FOR* Fissure in ano [K60.2] INVALID FOR* Opioid abuse [F11.10] INVALID FOR* TMJ (dislocation of temporomandibular joint) [S*INVALID FOR* Axillary abscess [L02.419] INVALID FOR* Unplanned [Z34.90] INVALID FOR* More... Tobacco use in [O99.330] INVALID FOR* More... History of suicidal ideation [Z86.59] INVALID FOR* More... History of herpes genitalis [Z86.19] INVALID FOR* More... Pelvic pain in [O26.899, R10.2] INVALID FOR* More... History of drug abuse [Z87.898] INVALID FOR* More... Patient requested diagnostic testing [Z01.89] INVALID FOR* More... Other instructions from your clinician: SEQUENTIAL SCREENINGS The [facility] offers sequential screenings for women who are interested in screenings for chromosomal abnormalities and certain defects during a . The sequential screen combines ultrasound and blood tests to determine the risk of chromosomal abnormalities, including Down's Syndrome (Trisomy 21) and Trisomy 18, as well as open neural tube defects including spina bifida. Ultrasound examination is performed between 11 weeks and 13 weeks gestational age. Blood tests are drawn after the ultrasound and again later in the between 15 and 21 weeks gestational age. Please let your physician know if you are interested in this testing. It will require an appointment with our switch technician. This is not an ultrasound performed by a physician in our office during a routine visit. SIGNS AND SYMPTOMS OF LABOR 1. Contractions every 10 minutes or more often 2. Clear, pink, or brownish fluid (water) leaking from vagina 3. Feeling that baby is pushing down, pressure 4. Low, dull backache 5. Cramps that feel like a period 6. Cramps with or without diarrhea If you notice any of the above symptoms, contact our office at [phone] and ask to speak with a nurse. After hours, you can call doctors registry at [phone] OR call [facility] at [phone] and ask to have the doctor auction clerk paged. If you consider this an emergency, dial 9-1-1 or go to your nearest emergency department. Cord-Blood Banking Up until recently, the umbilical cord--along with the blood that remained in it after a baby was born and the cord cut--was simply discarded by the hospital. Then, in the late , researchers discovered that cord blood possessed unusual properties that made it useful in the treatment of patients with some cancers and other illnesses. While the actual process of collecting cord blood is straightforward, many parents are not even aware that this option now exists, much less familiar with all the issues involved. The case for saving your baby's cord blood The blood running back and forth between your baby and the placenta is full of immature cells called stem cells. Unlike embryonic stem cells, which have the ability to develop into any type of body cell, cord-blood stem cells already are locked into a certain, vital function: making all the different components of the blood, such as platelets, white blood cells, and red blood cells-serving, in effect, like bone marrow. When transfused into a patient whose own blood cells have faulty genetic coding or have been destroyed by chemotherapy or other cancer treatments, the cord-blood cells can implant themselves in the bone marrow and generate legions of new, healthy cells. These days, cord-blood transplants most commonly are used in cancer patients when a donor can't be found for a bone-marrow transplant. The treatment is particularly effective in young patients- the [facility] reports a 70 percent success rate in children, but only 20 to 40 percent in adults. Researchers envision improving those odds and see many future applications as well, such as curing sickle cell disease and other blood-related genetic illnesses. So there is a possibility that your child, or someone else, may need these super-healthy and versatile cells one day. The drawbacks Aside from not knowing about this medical option, the main reason most people do not save their baby's stem cells is cost. In a private blood bank, the initial costs run from $275 to $1,500. Most also charge a yearly storage fee of $50 to $95. The advantage of using a private bank is that your sample is saved for only you to use. An alternative to private banking Public cord-blood aaron are an alternative. These cost no money to use, but your sample is not specifically saved for you. Another person with a more immediate need may use it. If the time should come that you need stem cells, yours may still be available, or you may use donations from other people without charge. You also can direct your sample to go to a relative with an immediate need if the blood type matches. Anyone else needing to use stem cells from a public bank who has not been a donor must pay for it, sometimes tens of thousands of dollars. Will my family benefit from saving stem cells? Right now, situations in which stem cells would be helpful are quite rare. As mentioned earlier, stem-cell transplants are most commonly used for rare genetic conditions and for some types of cancer, including leukemia and lymphoma. And even with these present uses, many questions remain. In cancer treatment, for example, some researchers are concerned about the wisdom of transplanting back into the child the same cells that already showed a propensity to become malignant. Doctors also aren't sure if the number of cells taken at the time of would be enough to treat a full-grown 16-year-old. It is also not completely clear how active the cells would be after years of being stored. The treatment is so new and rare, we just don't have the data yet to resolve these important issues. What do the experts say? The [employer] encourages philanthropic blood banking in public aaron, but only for families with a current or potential need. Blood-bank proponents encourage any kind of banking, pointing out that research is getting closer and closer to many diverse, live-saving applications. How do I decide? Each family must weigh the pros and cons for themselves. Some families say that any cost is worth their peace of mind. Others say that in the face of uncertainty about the effectiveness of the treatment, they will use their resources elsewhere. Some choose the middle ground of donating publicly, knowing that their sample might benefit another family, if not themselves. For more information, ask your doctor or nurse, and be sure to check out our article on the technical aspects of cord-blood banking. Technical Aspects of Cord-Blood Banking If you are interested in storing your baby's umbilical- cord blood because of its possible use in emerging medical treatments, you must make arrangements with a blood bank before your child is born. The collection procedure is quite simple: After delivery of the baby, the umbilical cord is clamped and cut in the usual way. The blood that remains in the umbilical-cord vessels is then collected in sterile containers. The blood may be removed from the cord with a large needle or allowed to flow freely, depending on the company's collection system. The containers may look like large test tubes or like the plastic bags used in a blood bank. It does not cause the mother or the baby any pain to collect the blood, and no blood is taken that the baby needs at the moment. The nurse, greige goods marker, or physician will then label the samples, check them over with you, and package them for a special pickup arranged with a commercial carrier. When the blood arrives at the blood- bank facility, it is processed and the parents are notified. It is then kept in an advanced storage system for years. How do I know that my sample is safe? Power outages and bankruptcies potentially could threaten any organization, but so far none have been reported. It is to be hoped that the scientists in these aaron would arrange for safe transfer to another facility if the need arose. YOU MUST MAKE ARRANGEMENTS AHEAD OF TIME! Public cord-blood aaron--DONATION: [employer] [phone] [facility]'s Placental Blood Program, [facility] Umbilical Cord Blood Bank, Private cord-blood aaron--SAVING FOR YOUR OWN USE: [employer], (I think this is the least expensive) [employer] [phone] [employer], (307) [employer] [place] [facility], [phone] 700-CORD Cells, [phone] [place] [facility], Cord Blood Registry, (019) C[employer]OOD [employer], An Internet search may provide you with additional listings. Disposition: Return in 11 days (on 04/17/2017) for New OB with Dr Rojas. Follow-up and Disposition History Recorded Letter Text Dear Maria T Dallas: How to activate your [facility] rumr Account 1. Visit the rumr Signup page at [email or web address] 2. Identify yourself using your one-time use activation code: [email or web address] 3. Follow the on-screen prompts to choose your own secure username and password The following information will be necessary to access your account for the first time: Information needed for sign-up: Your custom activation code used one-time only for the initial account set-up. Your date of The last 4 digits of your social security number What to do next: Fill in the requested information on the Identify Yourself Form at [email or web address] , click Next. Create your login and password, choose a rumr ID and password that will be easy for you to use, but impossible for anyone else to guess. Pick a security question that will assist you in the event you forget your password the next time you log-on. If you have difficulty activating your account, please call our rumr helpline at [phone] or toll free at . We hope you enjoy using MyChart! Kindest Regards, [facility] MyChart Team Encounter Status:Closed by DEIRDRE JOHNSON RN on 04/06/17 ALLERGIES ALLERGIES DATE TYPE / CODE NAME / CODE REACTION SEVERITY SOURCE Drug Penicillins/[id number] Shortness of Unknown [place] 8 Allergy/[id number]( 0476(RXNORM) breath [facility] Repository Drug doxycycline/M58246 Vomiting Unknown [place] 8 Allergy/690985755( 2748(RXNORM) [facility] Repository Drug sulfamethoxazole/F Upset Stomach Unknown [place] 8 Allergy/658827035( [id number](RXNORM) [facility] Repository Drug trimethoprim/F0060 Upset Stomach Unknown [place] 8 Allergy/791884482( 63177(RXNORM) [facility] Repository Drug metronidazole/F006 Upset Stomach Unknown [place] 8 Allergy/560857102( 688819(RXNORM) [facility] Repository Drug nickel/[id number]( Unknown Unknown [place] 8 Allergy/991372731( RXNORM) [facility] Hospital Repository DRUG/[id number](SNO SULFAMETHOXAZOLE-T [place] [address]) [facility] DR[facility] DOXYCYCLINE [place] 8 INGREDI/[id number]( [facility] Repository DRUG/[id number](SNO METRONIDAZOLE [place] [address]) [facility] PENICILLINS Patient states [place] 8 Class/[id number](SN she gets [facility] OMED CT) [facility] Repository DRUG NAPROXEN GI UPSET [place] 2 INGREDI/[id number]( Clinic Main SNOMED CT) [place] Repository DRUG METRONIDAZOLE HCL GI UPSET [place] 2 INGREDI/[id number]( [facility] Main SNOMED CT) [place] Repository DRUG TRAMADOL HCL OTHER: SEE C [place] 2 INGREDI/624261169( [facility] Main SNOMED CT) [place] Repository DRUG DOXYCYCLINE GI UPSET [place] 0 INGREDI/705190465( Clinic Main SNOMED CT) [place] Repository Miscellaneous OTHER RASH [place] 8 Allergy/[id number]( Clinic Main SNOMED CT) [place] Repository DRUG AMOXICILLIN RASH [place] 6 INGREDI/124006117( Clinic Main SNOMED CT) [place] Repository Miscellaneous OTHER RASH [place] 6 Allergy/132032815( Clinic Main SNOMED CT) [place] Repository Drug PENICILLINS HIVES [place] 6 Class/971464980(SN [facility] Main OMED CT) [place] Repository ENCOUNTERS ENCOUNTERS ADMIT/DISCHARGE ACCOUNT NUMBER ADMITTING ENCOUNTER LOCATION SOURCE CLASS 02/23/2018/02/24/20 [id number] Emergency [address] ding:ED Repository 02/21/2018 [id number] Ambulatory [facility] ding:MFPLAB Repository 02/20/2018/02/22/20 [id number] Ambulatory [address] [place] Repository 01/20/2018/01/21/20 [id number] Emergency ABuilding:ER [address] Repository 12/16/2017 [id number] Ambulatory [facility] ding:ED Repository 12/16/2017/12/21/19 [id number] Madhav Inpatient [address] ding:SC1Fjoz Repository : EQ531Ibj: 1 12/16/2017 [id number] Madhav Ambulatory BMSBuilding: Lia Cody BMS.[facility] Repository 12/16/2017 [id number] Madhav Ambulatory BMSBuilding: [place] Cody BMS.[facility] Repository 12/16/2017 [id number] Madhav Ambulatory BMSBuilding[facility] [place] [facility] 12/16/2017 [id number] Madhav Ambulatory BMSBuilding: [place] BMS.[facility] Repository 12/16/2017 [id number] Madhav Ambulatory BMSBuilding: [place] Coyd BMS.CF.[facility] Repository 12/16/2017 [id number] Jopperi, Ambulatory BMSBuilding: [place] Cody BMS.[facility] Repository 12/16/2017 [id number] Madhav Ambulatory BMSBuilding: [place] BMS.[facility] Repository 12/16/2017 [id number] Madhav, Ambulatory BMSBuilding: [place] Cody BMS.[facility] Repository 12/16/2017 [id number] Madhav Ambulatory BMSBuilding: [place] Cody BMS.CF.[facility] Repository 12/13/2017/12/14/19 [id number] Emergency [address] ding:ED Repository 11/17/2017/11/22/19 [id number] Ambulatory [address] Repository 09/29/2017/10/03/19 [id number] Agbinag, Ambulatory [address] ding:LN1Lgnp Repository : SY533Ghk: 1 09/29/2017 [id number] Agyelinetteg, Ambulatory BMSBuilding: Lia Kevon BMS.[facility] Repository 09/29/2017/10/03/19 [id number] Ambulatory BMSBuilding: [place] [facility] Repository 09/29/2017 [id number] Agyearya, Ambulatory BMSBuilding: Lia Kevon BMS.[facility] Repository 09/11/2017 [id number] Ambulatory [facility] Repository 08/29/2017/08/30/19 [id number] Emergency [address] ding:ED Repository 08/14/2017/08/15/19 [id number] Emergency [address] ding:ED Repository 08/04/2017/08/06/19 [id number] Emergency ABuilding:[address] Repository 07/19/2017/07/20/19 [id number] Ambulatory Building:OUT [place] [address] PATIENT BURN [facility] Repository 07/14/2017/07/15/19 [id number] Ambulatory Building:OUT [place] [address] PATIENT BURN [facility] Repository 07/10/2017/07/11/19 [id number] Ambulatory Building:OUT [place] 18 PATIENT BURN [facility] Hospital Repository 07/08/2017/07/09/19 [id number] Emergency Lia [place] 18 [facility] ding:ED Repository 07/07/2017/07/08/19 [id number] Emergency [place] Lia 18 [facility] ding:ED Repository 05/26/2017/06/07/19 [id number] Ambulatory [address] Repository 05/22/2017/05/23/19 [id number] Emergency Lia [place] 18 [facility] ding:ED Repository 05/11/2017/05/25/19 [id number] Ambulatory Lia Lia 18 [facility] ding:BHIOP Repository 05/05/2017/05/05/19 [id number] Ambulatory [place] Lia 18 [facility] ding:SDC Repository 05/04/2017/05/04/19 [id number] Ambulatory [place] Lia 18 [facility] ding:PT Repository 05/02/2017/05/02/19 [id number] Ambulatory [address] Repository 04/26/2017 [id number] Ambulatory [facility] Repository 04/24/2017/01/27/20 [id number] Ambulatory [address] Repository 04/24/2017/04/25/19 [id number] Ambulatory [address] Repository 04/17/2017/04/18/19 [id number] Ambulatory [address] Repository 04/14/2017/04/14/19 [id number] Emergency Lia [place] 18 [facility] ding:ED Repository 04/13/2017/04/13/19 [id number] Ambulatory [address] Repository 04/13/2017/05/10/19 [id number] Ambulatory [place] [address] [place] [address] ding:BHIOP Repository 04/06/2017/04/06/19 [id number] Ambulatory [address] Repository 04/06/2017/04/07/19 [id number] Ambulatory [address] Repository PAYERS PAYERS ENCOUNTER GUARANTOR PAYER SUBSCRIBER SOURCE 02/23/2018 MARIA T Leon Primary MARIA T [id number] Insurance:CARESOURCE SPEEGLEDOB: Community [place] Policy Number: [id number] Hospital RDAPT [id number], [id number] [place]ository [place] [address]Qxw: (330) Date:2018-02-23P O [phone] () [address]ATTN: [place] [address]UJ: 02/23/2018 Secondary NOT GIVENUNK Lia Insurance:SELF PAY [facility] Number: Effective Repository Date:2018-02-23 02/21/2018 MARIA T S Primary NOT GIVENUNK Lia [id number] Insurance:SELF PAY [facility] RD[address] [id number], Number: [place]ository [place] [address]Fjf: (330) Date:2018-02-21 [phone] () 01/20/2018 MARIA T S Primary MARIA T S [facility] SPEEGLEDOB: Insurance:CARESOURCE SPEEGLEDOB: [facility] [id number] MEDICAIDPolicy [id number] [address]ository [place] [address] Number: [facility] [address], [place] [id number] [address] [address]Bzk: ([phone]) Date:2018-01-20 36015Uao: () [phone] [phone] ()Tel: Name:[address] [place] [address] () [address]HY: 12/16/2017 TELSA S Primary NOT GIVENUNK Lia [id number] [place] Insurance:SELF PAY [facility]ATHLE[address] [facility] [address]Ywj: NONE Number: Effective Repository (HP) Date:2017-12-16 12/16/2017 MARIA T S Primary MARIA T S [place] [id number] [place] Insurance:CARESOURCE SPEEGLEDOB: [facility] [address]ATH[address] Policy Number: [id number] Hospital [address]Okk: . () [id number] Repository Date:2017-12-16 [address]ATTN: [place] [address]PW: 12/16/2017 Secondary NOT GIVENUNK [place] Insurance:SELF PAY [facility] Number: Effective Repository Date:2017-12-16 12/16/2017 TELSA S Primary TELSA S Lia [id number] [place] Insurance:CARESOURCE SPEEGLEDOB: Community [address] [facility] Policy Number: [id number] Hospital [address]Kej: NONE [id number] Repository (HP) Date:2017-12-16 [address]ATTN: [place] [address]RO: 12/16/2017 Secondary NOT GIVENUNK [place] Insurance:SELF PAY [facility] Number: Effective Repository Date:2017-12-16 12/16/2017 TELSA S Primary TELSA S [place] [id number] [place] Insurance:CARESOURCE SPEEGLEDOB: Community [address] [place] [address] Policy Number: [id number] Hospital [address]Qbv: NONE [id number] Repository (HP) Date:2017-12-16 [address]ATTN: [place] [address]TM: 12/16/2017 Secondary NOT GIVENUNK [place] Insurance:SELF PAY [facility] Number: Effective Repository Date:2017-12-16 12/16/2017 TELSA S Primary TELSA S [place] [id number] [place] Insurance:CARESOURCE SPEEGLEDOB: Community [address] [facility] Policy Number: [id number] Hospital [address]Tmx: NONE [id number] Repository (HP) Date:2017-12-16 [address]ATTN: [place] [address]DI: 12/16/2017 Secondary NOT GIVENUNK Lia Insurance:SELF PAY [facility] Number: Effective Repository Date:2017-12-16 12/16/2017 TELSA S Primary TELSA S [place] [id number] [place] Insurance:CARESOURCE SPEEGLEDOB: Community [address] Policy Number: [id number] Hospital [address]Hjt: NONE [id number] Repository () Date:2017-12-16 [address]ATTN: [place] [address]FP: 12/16/2017 Secondary NOT GIVENUNK Lia Insurance:SELF PAY [facility] Number: Effective Repository Date:2017-12-16 12/16/2017 TELSA S Primary TELSA S [place] [id number] [place] Insurance:CARESOURCE SPEEGLEDOB: Community [address] Policy Number: [id number] Hospital [address]Ufw: NONE [id number] Repository () Date:2017-12-16P [address]ATTN: [place] [address]KJ: 12/16/2017 Secondary NOT GIVENUNK Lia Insurance:SELF PAY [facility] Number: Effective Repository Date:2017-12-16 12/16/2017 MARIA T S Primary MARIA T S Lia [id number] [place] Insurance:CARESOURCE SPEEGLEDOB: Community [address] Policy Number: [id number] Hospital [address]Fxi: . () [id number] Repository Date:2017-12-16 [address]ATTN: [place] [address]GN: 12/16/2017 Secondary NOT GIVENUNK [place] Insurance:SELF PAY [facility] Number: Effective Repository Date:2017-12-16 12/16/2017 MARIA T S Primary MARIA T S [place] [id number] [place] Insurance:CARESOURCE SPEEGLEDOB: Community [address] Policy Number: [id number] Hospital [address]Suz: . () [id number] Repository Date:2017-12-16 [address]ATTN: [place] [address]YA: 12/16/2017 Secondary NOT GIVENUNK [place] Insurance:SELF PAY [facility] Number: Effective Repository Date:2017-12-16 12/16/2017 MARIA T S Primary MARIA T S [place] [id number] [facility] Insurance:CARESOURCE SPEEGLEDOB: Community [address] Policy Number: [id number] Hospital [address]Kih: . () [id number] Repository Date:2017-12-16P [address]ATTN: [place] [address]TO: 12/16/2017 Secondary NOT GIVENUNK Lia Insurance:SELF PAY [facility] Number: Effective Repository Date:2017-12-16 12/16/2017 MARIA T S Primary MARIA T S Lia [id number] [facility] Insurance:CARESOURCE SPEEGLEDOB: [facility] [address] Policy Number: [id number] Hospital 112[address]Xpg: . () [id number] Repository Date:2017-12-[address]ATTN: [place] [address]IR: 12/16/2017 Secondary NOT GIVENUNK [place] Insurance:SELF PAY [facility] Number: Effective Repository Date:2017-12-16 12/13/2017 Maria T S Primary Maria T S [place] Speegle.LIA, Insurance:CARESOURCE SpeegleDOB: [facility] [address]Twc: NONE Policy Number: [id number] Hospital () [id number] Repository Date:2017-12-13P [address]ATTN: [place] [address]HE: 12/13/2017 Secondary NOT GIVENUNK Lia Insurance:SELF PAY [facility] Number: Effective Repository Date:2017-12-13 09/29/2017 MARIA T S Primary MARIA T S Lia [id number] Insurance:CARESOURCE SPEEGLEDOB: [facility] Policy Number: [id number] Hospital RD[address] [id number], [id number] [place]ository [place] [address]Doi: (330) Date:2017-09-28 O [phone] (HP) [address]ATTN: [place] [address]EK: 09/29/2017 Secondary NOT GIVENUNK [place] Insurance:SELF PAY [facility] Number: Effective Repository Date:2017-09-28 09/29/2017 Maria T S Primary Maria T S [place] [id number] [place] Insurance:CARESOURCE SpeegleDOB: Community [id number], Policy Number: [id number] [facility] [place] [address]Rno: NONE [id number] Repository (HP) Date:2017-09-28 [address]ATTN: [place] [address]CS: 09/29/2017 Secondary NOT GIVENUNK Lia Insurance:SELF PAY [facility] Number: Effective Repository Date:2017-09-29 09/29/2017 Maria T S Primary Maria T S [place] [id number] [place] Insurance:CARESOURCE SpeegleDOB: Community [address] [id number], Policy Number: [id number] Hospital of [facility] [place] [address]Tnw: NONE [id number] Repository (HP) Date:2017-09-28 [address]ATTN: [place] [address]LK: 09/29/2017 Secondary NOT GIVENUNK [place] Insurance:SELF PAY [facility] Number: Effective Repository Date:2017-09-29 09/29/2017 Maria T S Primary Maria T S Lia [id number] [place] Insurance:CARESOURCE SpeegleDOB: Community [address] [id number], Policy Number: [id number] Hospital of [facility] [place] [address]Hdw: NONE [id number] Repository (HP) Date:2017-09-28 [address]ATTN: [place] [address]AT: 09/29/2017 Secondary NOT GIVENUNK Lia Insurance:SELF PAY [facility] Number: Effective Repository Date:2017-09-29 08/29/2017 Maria T Leon Primary Maria T Leon Lia [id number] [facility] Insurance:CARESOURCE SpeegleDOB: Community [address] [id number], Policy Number: [id number] Hospital of [facility] [place] [address]Phf: NONE [id number] Repository () Date:2017-08-29P [address]ATTN: [place] [address]XN: 08/29/2017 Secondary NOT GIVENUNK Lia Insurance:SELF PAY [facility] Number: Effective Repository Date:2017-08-29 08/14/2017 Maria T S Primary Maria T Leon Lia [id number] [facility] Insurance:CARESOURCE SpeegleDOB: Community [address] [id number], Policy Number: [id number] Hospital of [facility] [place] [address]Hxr: NONE [id number] Repository () Date:2017-08-14P [address]ATTN: [place] [address]QQ: 08/14/2017 Secondary NOT GIVENUNK [place] Insurance:SELF PAY [facility] Number: Effective Repository Date:2017-08-14 08/04/2017 MARIA T [facility] MARIA T Leon [facility] SPEEGLEDOB: Insurance:CARESOURCE SPEEGLEDOB: [facility] [id number] MEDICAIDPolicy [id number] Repository [facility] Number: [place] [address]GJNHD[address], [place] [id number] [address]AIXMPFD, [place] [address]Gbi: (330) Date:2017-08-04 938[address]Uzl: () [phone] [phone] ()Tel: Name:FABIANOO Alfred [address] [place] [address] () [address]FD: 07/19/2017 [facility] Hospitalron SPEEGLEDOB: Insurance:CARESOURCE SPEEGLEDOB: Children's Policy Number: [id number] [facility] [id number] [facility] Repository [id number], [place] Date: [address]UDNCYUF, [place] [address]Jsh: [phone] (HP) 07/14/2017 MARIA T MEENAKSHI Primary MARIA T Pleitez SPEEGLEDOB: Insurance:CARESOURCE SPEEGLEDOB: Children's Policy Number: [id number] [facility] [id number] [facility] Repository [id number], [place] Date: [address]BNZSUNH, [place] [address]Prq: [phone]) [phone] (HP) 07/10/2017 MARIA T MEENAKSHI Primary MARIA T Pleitez SPEEGLEDOB: Insurance:CARESOURCE SPEEGLEDOB: Children's Policy Number: [id number] [facility] [id number] [address] Repository [address]OWKXFX[address], [place] Date: [address]1VAQSDZL, [place] [address]Aec: [phone]) [phone] (HP) 07/08/2017 Maria T S Primary Maria T S [place] [id number] [facility] Insurance:CARESOURCE SpeegleDOB: Community [address] [id number], Policy Number: [id number] [facility] [place] [address]Gpz: NONE [id number] Repository (HP) Date:2017-07-08 [address]ATTN: [place] [address]UW: 07/08/2017 Secondary NOT GIVENUNK Lia Insurance:SELF PAY Community [facility] Number: Effective Repository Date:2017-07-08 07/07/2017 Maria T S Primary Maria T S Lia [id number] [facility] Insurance:CARESOURCE SpeegleDOB: Community [address] [id number], Policy Number: [id number] [facility] [place] [address]Tle: NONE [id number] Repository (HP) Date:2017-07-07P [address]ATTN: [place] [address]IN: 07/07/2017 Secondary NOT GIVENUNK [place] Insurance:SELF PAY [facility] Number: Effective Repository Date:2017-07-07 05/22/2017 Maria T S Primary Maria T S [place] [id number] [place] Insurance:CARESOURCE SpeegleDOB: Community [address] [id number], Policy Number: [id number] Hospital of Southern [place] [address]Jdh: NONE [id number] Repository (HP) Date:2017-05-22 [address]ATTN: [place] [address]OB: 05/22/2017 Secondary NOT GIVENUNK Lia Insurance:SELF PAY [facility] Number: Effective Repository Date:2017-05-22 05/11/2017 Maria T S Primary Maria T S Lia [id number] [place] Insurance:CARESOURCE SpeegleDOB: Community [address] [place] Policy Number: [id number] Hospital [address]Wxl: (393) [id number] Repository [phone] () Date:2017-03-28P [address]ATTN: [place] [address]KY: 05/11/2017 Secondary Maria T S [place] Insurance:MEDICAIDPo SpeegleDOB: [facility] Number: [id number] Hospital Effective Repository Date:2017-05-11 05/11/2017 Tertiary NOT GIVENUNK Lia Insurance:SELF PAY [facility] Number: Effective Repository Date:2017-05-11 05/05/2017 Maria T S Primary Maria T S Lia [id number] Insurance:CARESOURCE SpeegleDOB: Community [place] [address], Policy Number: [id number] Hospital of Southern [place] [address]Jtw: (130) [id number] Repository [phone] (HP) Date:2017-05-02P [address]ATTN: [place] [address]OS: 05/05/2017 Secondary NOT GIVENUNK Lia Insurance:SELF PAY [facility] Number: Effective Repository Date:2017-05-02 05/04/2017 Maria T S Primary Maria T S [place] SpeegleEVERY Insurance:CARESOURCE SpeegleDOB: Community WOMENS Policy Number: [id number] [id number] Repository [address]Kis: (234) Date:2017-01-11P O [phone] () [address]ATTN: [place] [address]AE: 05/04/2017 Secondary NOT GIVENUNK Lia Insurance:SELF PAY [facility] Number: Effective Repository Date:2017-02-22 04/14/2017 Maria T S Primary Maria T S Lia [id number] [place] Insurance:CARESOURCE SpeegleDOB: Community [address] [id number], Policy Number: [id number] Hospital of [facility] [place] [address]Ftm: NONE [id number] Repository () Date:2017-04-14P [address]ATTN: [place] [address]KL: 04/14/2017 Secondary NOT GIVENUNK [place] Insurance:SELF PAY [facility] Number: Effective Repository Date:2017-04-14 04/13/2017 Maria T S Primary Maria T S Lia [id number] [place] Insurance:CARESOURCE SpeegleDOB: Community [address] Policy Number: [id number] Hospital [address]Flo: (605) [id number] Repository [phone] () Date:2017-03-28P [address]ATTN: [place] [address]NJ: 04/13/2017 Secondary Maria T S Lia Insurance:MEDICAIDPo SpeegleDOB: Community licy Number: [id number] Hospital Effective Repository Date:2017-04-13 04/13/2017 Tertiary NOT GIVENUNK Lia Insurance:SELF PAY [facility] Number: Effective Repository Date:2017-04-13
== END ==
PROVIDERS: Family Provider Family Medicine; PCP Family Medicine; Visit Provider Family Medicine
DX: Z02.9 Encounter for administrative examinations, unspecified (principal); G89.4 Chronic pain syndrome; A41.9 Sepsis, unspecified organism; F31.9 Bipolar disorder, unspecified; N39.0 Urinary tract infection, site not specified; Z87.898 Personal history of other specified conditions
CPT/HCPCS: 36415; 80053; 80307; 84443; 85025; 86038; 86140; 87086; G0480

== ENCOUNTER 2018-02-23 14:20 | Emergency (ER) | payer MEDICAID, SELFPAY ==
[2018-02-21 15:26] VITALS: BMI 19.8
[2018-02-23 14:21] VITALS: BP 98/68; PULSE 87; RESP 14; TEMP 36.8; O2SAT 99; BMI 21.2
--- NOTE | 2018-02-23 15:12 | CT_ITS ---
STUDY: CT BRAIN WITHOUT CONTRAST REASON FOR EXAM: Female, 23 years old. Migraine headaches, falls fever RADIATION DOSAGE (If Supplied By Facility): CTDIvol = ( 44.99 ) mGy, DLP = ( 745.49 ) mGycm TECHNIQUE: Transaxial CT imaging of the brain was performed without administration of intravenous contrast material. Individualized dose optimization techniques were used for this CT. COMPARISON: April 18, 2017 CT head FINDINGS: Normal soft tissue structures. Normal calvarium. Normal size ventricles and extra-axial spaces for the patient's age. Normal white matter tracts of the cerebral hemispheres. Normal basal ganglia and thalami. Normal brainstem. Normal cerebellum. There is no intracranial hemorrhage. There are no findings of an acute ischemic infarction. Normal visualized paranasal sinuses. CT/Brain/Head without Contrast IMPRESSION: Normal unenhanced CT scan of the brain. Electronically Signed: Leslie Orozco MD at 17:46 EST Tel , Service support ,
--- NOTE | 2018-02-23 15:12 | CT_ITS ---
STUDY: CT ABDOMEN AND PELVIS WITH CONTRAST REASON FOR EXAM: Female, 23 years old. Abdominal pain, fever RADIATION DOSAGE (If Supplied By Facility): CTDIvol = ( 9.63 ) mGy, DLP = ( 309.65 ) mGycm TECHNIQUE: Transaxial images were obtained from the lower chest to the upper thighs with oral contrast. 100 ml of Isovue 300 contrast was administered. Sagittal and coronal images were reconstructed. Individualized dose optimization techniques were used for this CT. COMPARISON: None. FINDINGS: The visualized lung bases are unremarkable. There is no pleural effusion. The heart is normal in size. The liver is unremarkable. The gallbladder is contracted. The spleen is diffusely heterogeneous without a discrete mass. The spleen measures about 10 cm in the sagittal plane. The pancreas is unremarkable. The adrenal glands are unremarkable. There is subtle heterogeneity in the cortex of the right kidney. There is no dilatation of the collecting system in the right kidney. There is subtle heterogeneity in the cortex of the left kidney. There is no dilatation of the collecting system in the left kidney. The stomach is unremarkable. The small bowel is unremarkable. The colon is unremarkable. There is non-visualization of the appendix. The aorta and branch vessels are unremarkable. The inferior vena cava is unremarkable. The retroperitoneum is unremarkable. There is no free fluid in the abdomen. The bladder is small with wall thickening. The uterus is normal in appearance. There are follicles in both ovaries. The soft tissues of the abdominal wall are unremarkable. The visualized bones are unremarkable. CT/Abdomen/Pelvis WITH Contrast IMPRESSION: There is subtle heterogeneity in the cortices of both kidneys, left more than right. This can be seen with pyelonephritis. Correlate clinically. There is no hydronephrosis bilaterally. The bladder is small with wall thickening, and cystitis cannot be excluded. There is heterogeneous enhancement of the spleen without a discrete mass. The spleen is normal in size. This is likely related to phase of contrast. There are no acute bowel abnormalities. There is no ascites, free air or significant lymphadenopathy. Electronically Signed: Neeru Woodruff MD at 18:34 EST Tel Direct: [phone], Service support ,
--- NOTE | 2018-02-23 15:18 | ED.VISSUMM ---
- ER Visit Summary Date of Service: 02/23/18 Chief Complaint: Abdominal pain and migraine History of Present Illness: The patient is a 23 F admitted in December with E. coli sepsis. The patient presents today with continued abdominal pain and abdominal bloating. She states she has been told that she still has a UTI and has been on 4 different courses of antibiotics. She was seen by PCP 2 days ago and had blood and urine test done but has not received any results. She also reports having migraines for the past 4 months. Physical Examination: Vital signs are unremarkable. Patient is afebrile. Patient sitting upright in bed no acute distress. She is nontoxic appearing. Head neck examination reveals a few scabs on her forehead with no sign of secondary infection. Heart is regular rate and rhythm. Lungs sounds are clear. Abdomen is soft and mildly distended. There is no focal tenderness. Active bowel sounds are noted throughout. Test Results: CBC and chemistry studies normal. LFTs normal. Urinalysis shows no bacteria. There is 0-5 white cells and 0-5 epithelial cells. Patency test is negative. Tox screen is negative. CT head is normal. CT abdomen pelvis shows stable heterogeneity of the cortices of both kidneys, left greater than right. There is no evidence of hydronephrosis. The bladder is small with wall thickening. Emergency Department Course and Treatment: Patient was given Toradol, Reglan, Benadryl, and IV. Test results were discussed with her. At this time I see no sign of acute urinary infection. Urine and blood cultures were sent. She is to follow-up with her primary care physician for the remainder of her test results. I also referred her to nephrology for follow-up to ensure her kidneys heal from her previous severe infection. Treatment Plan: [] Disposition: Discharge Impression: 1. Migraine, improved 2. Myalgias This note was generated with [employer] dictation software. It may contain incorrect words, spelling, and punctuation that were not noted in review of the chart prior to signing ED Disposition - Plan for ED Patient: Disposition: Home or Assisted Living Chief Complaint: Abd Pain Instructions: ED Headache Migraine, ED Muscle Aching Prescriptions: DiphenhydrAMINE [Benadryl] 25 mg PO TID PRN PRN #14 capsule PRN Reason: Headache Ketorolac [Toradol] 10 mg PO Q6H PRN #14 tablet PRN Reason: Pain Metoclopramide [Reglan] 10 mg PO 4X/DAY PRN #20 tablet PRN Reason: Headache Referrals: Avelina Morris DO [STAFF PHYSICIAN] - As Needed Skinny Mann MD [Primary Care Provider] - Keep Chip appointment
[2018-02-23 16:04] LABS: Bacteria 0 SEEN /hpf (None Seen); Mucous, Urine 0 SEEN /hpf (<or=2+); Red Blood Cells-Urine 0 SEEN /hpf (0-5)
[2018-02-23] MEDS: Ketorolac 30 MG/ML Syringe IV (16:07)
[2018-02-23] MEDS: 0.9% Normal Saline 1,000 ML 150 ML IV (16:07)
[2018-02-23] MEDS: Metoclopramide 10 MG/2 ML Vial 5 MG IV (16:08)
[2018-02-23] MEDS: DiphenhydrAMINE 50 MG/ML Syringe 12.5 MG IV (16:08)
[2018-02-23 16:24] LABS: Amphetamine Urine VISTA NEGATIVE (<1000 ng/mL); Barbiturate Urine VISTA NEGATIVE (< 200 ng/mL); Benzodiazepine Urine VISTA NEGATIVE (< 200 ng/mL); Cocaine Urine VISTA NEGATIVE (< 300 ng/mL); Ecstacy Urine VISTA NEGATIVE (< 500 ng/mL); Methadone Urine VISTA NEGATIVE (< 300 ng/mL); PCP Urine VISTA NEGATIVE (< 25 ng/mL); THC Urine VISTA NEGATIVE (< 50 ng/mL); Vista UDS pH Range 6
[2018-02-23 16:29] LABS: Color, Urine Yellow (Yellow); Glucose, Dipstick Normal (Normal); Ketone-Dipstick Negative (Negative); Leukocyte Esterase-Dipstick 25 /ul (Negative); Nitrite-Dipstick Negative (Negative); Occult Blood-Urine Negative /ul (Negative); Protein-Dipstick Negative (Negative); Urine Bilirubin Dipstick Negative (Negative); Urine Clarity Sl. Cloudy (Clear); Urine Urobilinogen Normal (Normal)
[2018-02-23 16:32] VITALS: BP 94/56; PULSE 70; RESP 14
[2018-02-23 16:34] LABS: Absolute Lymphocyte Count 2.14 X10^3/ul (0.83-4.51); Basophil# 0.03 X10^3/uL; Basophil% 0.4 % (0-1); Eosinophil# 0.14 X10^3/uL; Hematocrit 40.9 % (37-47); Hemoglobin 13.5 g/dl (12.0-15.0); Lymphocyte # 2.14 X10^3/ul (4.0); Lymphocyte % 31.2 % (19-41); Mean Corpuscular Hgb 29.9 pg (27.0-32.0); Mean Corpuscular Volume 90.7 fL (81-99); Mean Platelet Vol. 9.3 fl (6.2-12.0); Monocyte# 0.53 X10^3/uL; Monocyte% 7.7 % (0-10); Neutrophil # 3.99 X10^3/uL (2.7-7.7); Neutrophil % 58.4 % (47-70); POSITIVE COUNT NO; POSITIVE DIFFERENTIAL NO; POSITIVE MORPHOLOGY NO; Platelet Count 291 K/mm3 (150-450); RBC Distribution Width CV 13.6 % (11.6-14.6); RBC Distribution Width SD 45.2 fl (35.1-43.9); Red Blood Count 4.51 M/mm3 (4.2-5.4); White Blood Count 6.9 K/mm3 (4.4-11.0)
[2018-02-23 16:42] LABS: Squamous Epithelial Cells - UA 0-5 SEEN /hpf (5-10); White Blood Cells 0-5 SEEN /hpf (0-5)
[2018-02-23 16:52] LABS: AST(SGOT) 12 U/L (15-37); Alanine Aminotransfer ALT/SGPT 19 U/L (13-56); Albumin, Serum 3.6 g/dL (3.2-5.0); Alkaline Phosphatase 57 U/L (45-117); Anion Gap 7 (5-15); BUN 9 mg/dL (7-18); BUN/Creat Ratio 11.8 RATIO (10-20); Calcium,Total 8.4 mg/dL (8.5-10.1); Chloride 105 mmol/L (98-107); Creatinine, Serum 0.76 mg/dL (0.55-1.02); EST Glomerular Filtration Rate 98 mL/min (>60); Est Glom Filt Rate - Afr Amer 118 mL/min (>60); Estimated Creatinine Clearance 85.08 ml/min; Globulin 3.4 g/dL (2.2-4.2); Glucose 82 mg/dL (74-106); Potassium 3.5 mmol/L (3.5-5.1); Sodium Level 141 mmol/L (136-145)
[2018-02-23 17:13] LABS: Pregnancy, Serum, hCG Quali. NEGATIVE Negative (0-9 Nonpreg)
--- NOTE | 2018-02-23 18:53 | ED.DEP ---
ED Disposition - Plan for ED Patient: Disposition: Home or Assisted Living Chief Complaint: Abd Pain Instructions: ED Muscle Aching, ED Headache Migraine Prescriptions: DiphenhydrAMINE [Benadryl] 25 mg PO TID PRN PRN #14 capsule PRN Reason: Headache Ketorolac [Toradol] 10 mg PO Q6H PRN #14 tablet PRN Reason: Pain Metoclopramide [Reglan] 10 mg PO 4X/DAY PRN #20 tablet PRN Reason: Headache Referrals: Skinny Mann MD [Primary Care Provider] - Keep Chip appointment Avelina Morris DO [STAFF PHYSICIAN] - As Needed
[2018-02-23 19:16] VITALS: BP 118/67; PULSE 77; O2SAT 99
--- OUTSIDE RECORDS SUMMARY | 2018-05-30 06:23 | XMS RPT_ITS ---
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 for Home/Discharge Instructions 12/20/17 0825 MR#: [id number] Acct: [id number] Name: MARIA T DALLAS Rep #: [id number] : 1995 22 From: Michael Hdez MD [...] F Source: [place] NO DIFF 6:11 AM [facility] Order Comment: SPECIMEN OBTAINED FROM LINE [...] MPV 9.5 Performed By: #### L100.0500 #### [facility] [address] [place], [address] BASIC METABOLIC Collected: 12/20/2017 Status: F Source: [place] PROFILE (BMP) 6:11 AM [facility] Order Comment: SPECIMEN OBTAINED FROM LINE [...] Performed By: #### L500.2500, L501.2300, L501.5200 #### [facility] [address], [place], [id number] PHOSPHORUS Collected: 12/20/2017 Status: F Source: [place] 6:11 AM [facility] Order Comment: SPECIMEN OBTAINED FROM LINE DRAW TYPE CODE TESTS RESULT OUT OF RANGE REFERENCE UNITS LAB L501.2300 2.5-4.9 mg/dL Normal PHOS 3.8 Performed By: #### L500.2500, L501.2300, L501.5200 #### [facility] [address] [facility] [address] [facility] [address] [place], [place], [id number] MAGNESIUM Collected: 12/20/2017 Status: F Source: [place] 6:11 AM [facility] Order Comment: SPECIMEN OBTAINED FROM LINE DRAW TYPE CODE TESTS RESULT OUT OF RANGE REFERENCE UNITS LAB L501.5200 1.6-2.6 mg/dL Low MG 1.4 Performed By: #### L500.2500, L501.2300, L501.5200 #### [facility] [place], [address] CBC W/DIFF, AUTOMATED Collected: 12/19/2017 Status: C Source: [place] 6:40 AM [facility] TYPE CODE TESTS RESULT OUT OF [...] as: July Performed By: #### L100.0100 #### [facility] [address] [place], [address] BEDSIDE GLUCOSE Collected: 12/19/2017 Status: F Source: [place] 5:12 AM [facility] TYPE CODE TESTS RESULT OUT OF REFERENCE UNITS RANGE LAB L501.080 70-110 mg/dL High BEDSIDE GLU 115 Result Comment: MANAGEMENT OF PATIENT CARE PER NURSING PROTOCOL Performed By: #### L501.080 #### [facility] Point of Care [address] [place] [address] CALCIUM,TOTAL Collected: 12/19/2017 Status: F Source: [place] 4:00 AM [facility] TYPE CODE TESTS RESULT OUT OF RANGE REFERENCE UNITS LAB L501.2200 8.5-10.1 mg/dL Low CA 7.6 Performed By: #### L501.2200, L501.2300, L501.5200 #### [facility] [address] [place], [address] PHOSPHORUS Collected: 12/19/2017 Status: F Source: [place] 4:00 AM [facility] TYPE CODE TESTS RESULT OUT OF RANGE REFERENCE UNITS LAB L501.2300 2.5-4.9 mg/dL Low PHOS 1.6 Performed By: #### L501.2200, L501.2300, L501.5200 #### [facility] [address] [place], [address] MAGNESIUM Collected: 12/19/2017 Status: F Source: [place] 4:00 AM [facility] TYPE CODE TESTS RESULT OUT OF RANGE REFERENCE UNITS LAB L501.5200 1.6-2.6 mg/dL Normal MG 2.1 Performed By: #### L501.2200, L501.2300, L501.5200 #### [facility] [address] [place], [address] BASIC METABOLIC Collected: 12/19/2017 Status: F Source: [place] PROFILE (BMP) 4:00 AM [facility] TYPE CODE TESTS RESULT OUT OF [...] Normal 7 Performed By: #### L500.2500 #### [facility] [address] [place], [place], [address] BEDSIDE GLUCOSE Collected: 12/18/2017 Status: F Source: [place] 11:39 PM [facility] TYPE CODE TESTS RESULT OUT OF REFERENCE UNITS RANGE LAB L501.080 70-110 mg/dL High BEDSIDE GLU 124 Result Comment: MANAGEMENT OF PATIENT CARE PER NURSING PROTOCOL Performed By: #### L501.080 #### [facility] Point of Care [address] [place], [place] [address] BEDSIDE GLUCOSE Collected: 12/18/2017 Status: F Source: [place] 6:29 PM [facility] TYPE CODE TESTS RESULT OUT OF REFERENCE UNITS RANGE LAB L501.080 70-110 mg/dL High BEDSIDE GLU 121 Result Comment: MANAGEMENT OF PATIENT CARE PER NURSING PROTOCOL Performed By: #### L501.080 #### [facility] Point of Care [address] [place] [address] 12 LEAD ELECTROCARDIOGRAM Observed: 12/18/2017 Status: F Source: [place] 3:11 PM [facility] Cardiovascular Services [address] [place] [address] 12 Lead EKG 12/16/17 1559 MR#: [id number] Acct: [id number] Name: MARIA T DALLAS Rep #: [id number] : 1995 22 From: Edu Wolfe MD [...] ECG Confirmed by CHRISTA FIGUEROA, EDU ([id number]), dictionary editor YOBANI HURST ([id number]) on 12/18/2017 3:11:21 PM Referred By: PRAMOD Confirmed By:EDU WOLFE MD 12/18/17 1511 Date Edu Wolfe MD CC: No Primary Care Physician; Michael Hdez MD; Toby Landaverde MD Signed BEDSIDE GLUCOSE Collected: 12/18/2017 Status: F Source: [place] 12:35 PM [facility] TYPE CODE TESTS RESULT OUT OF REFERENCE UNITS RANGE LAB L501.080 70-110 mg/dL High BEDSIDE GLU 179 Result Comment: Orders Followed MANAGEMENT OF PATIENT CARE PER NURSING PROTOCOL Performed By: #### L501.080 #### [facility] Point of Care [address] 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 ([id number]) Code Visit 9xxxx: [id number] Critical care first hour 12/18/17 0643 <Electronically signed by Kevin Chacko DO> Date Kevin Chacko DO Cosigner Signature (if applicable): Date CC: No Primary Care Physician; Kevin Chacko D.O. Signed BASIC METABOLIC Collected: 12/18/2017 Status: F Source: [place] PROFILE (BMP) 4:05 AM [facility] TYPE CODE TESTS RESULT OUT OF [...] Performed By: #### L500.2500, L501.2300, L501.5200 #### [facility] [address] [facility] [address] [place], [place], [id number] PHOSPHORUS Collected: 12/18/2017 Status: F Source: [place] 4:05 AM [facility] TYPE CODE TESTS RESULT OUT OF RANGE REFERENCE UNITS LAB L501.2300 2.5-4.9 mg/dL Normal PHOS 2.5 Performed By: #### L500.2500, L501.2300, L501.5200 #### [facility] [address] [place], [place], [address] MAGNESIUM Collected: 12/18/2017 Status: F Source: [place] 4:05 AM [facility] TYPE CODE TESTS RESULT OUT OF RANGE REFERENCE UNITS LAB L501.5200 1.6-2.6 mg/dL Normal MG 2.4 Performed By: #### L500.2500, L501.2300, L501.5200 #### [facility] [address] [place], [place], [address] CBC W/DIFF, AUTOMATED Collected: 12/18/2017 Status: F Source: [place] 4:05 AM [facility] TYPE CODE TESTS RESULT OUT OF [...] NEUTROPHILIA NOTED Performed By: #### L100.0100 #### [facility] [address] [place], [place], [address] BASIC METABOLIC Collected: 12/17/2017 Status: F Source: [place] PROFILE (BMP) 6:30 PM [facility] TYPE CODE TESTS RESULT OUT OF [...] Normal 7 Performed By: #### L500.2500 #### [facility] [address] [facility] [place], [address] MAGNESIUM Collected: 12/17/2017 Status: F Source: [place] 6:30 PM [facility] TYPE CODE TESTS RESULT OUT OF RANGE REFERENCE UNITS LAB L501.5200 1.6-2.6 mg/dL High MG 2.9 Performed By: #### L501.5200 #### [facility] [address] [facility] [place], [address] BASIC METABOLIC Collected: 12/17/2017 Status: F Source: [place] PROFILE (BMP) 1:00 PM [facility] TYPE CODE TESTS RESULT OUT OF [...] Normal 10 Performed By: #### L500.2500 #### [facility] [address] [facility] [place], [address] MAGNESIUM Collected: 12/17/2017 Status: F Source: [place] 1:00 PM [facility] TYPE CODE TESTS RESULT OUT OF RANGE REFERENCE UNITS LAB L501.5200 1.6-2.6 mg/dL Normal MG 1.8 Performed By: #### L501.5200, L501.2300 #### [facility] [address] [place], [address] PHOSPHORUS Collected: 12/17/2017 Status: F Source: [place] 1:00 PM [facility] TYPE CODE TESTS RESULT OUT OF RANGE REFERENCE UNITS LAB L501.2300 2.5-4.9 mg/dL Normal PHOS 3.3 Performed By: #### L501.5200, L501.2300 #### [facility] [address] [place], [address] Observed: 12/17/2017 Status: F Source: [place] CULTURE, BLOOD (WB) 9:40 AM [facility] Has pt arrived? Y BC No growth in 5 days. Performed By: #### M200.1000 #### [facility] [address] [place], [address] Observed: 12/17/2017 Status: F Source: [place] CULTURE, BLOOD (WB) 9:35 AM [facility] Has pt arrived? Y BC No growth in 5 days. Performed By: #### M200.1000 #### [facility] [address] [facility] [place], [place], [address] M R STAPH AUREUS Collected: 12/17/2017 Status: F Source: [place] DNA BY PCR 8:30 AM [facility] TYPE CODE TESTS RESULT OUT OF RANGE REFERENCE UNITS LAB L8200.1100 Negative Normal MRSA Negative RESULT Performed By: #### L8200.1000 #### [facility] [address] [facility] [place], [place], [address] Observed: 12/17/2017 Status: F Source: [place] RESPIRATORY PANEL 6:50 AM [facility] RP PANEL Normal Reference Range = Not Detected RESULTS CALLED TO ASHA/ICU 12/17/17 1211 eClestina Trejo. Copy of report sent to Infection [...] 1: RHINOVIRUS Performed By: #### M100.638 #### [facility] [place], [place], [address] CBC-COMPLETE BLOOD CNT Collected: 12/17/2017 Status: F Source: [place] NO DIFF 4:35 AM [facility] TYPE CODE TESTS RESULT OUT OF [...] MPV 9.5 Performed By: #### L100.0500 #### [facility] [address] [facility] [place], [place], [address] LIVER PROFILE Collected: 12/17/2017 Status: F Source: [place] 4:35 AM [facility] TYPE CODE TESTS RESULT OUT OF [...] Performed By: #### L500.3400, L501.2300, L501.5200 #### [facility] [address] [place], [place], [address] PHOSPHORUS Collected: 12/17/2017 Status: F Source: [place] 4:35 AM [facility] TYPE CODE TESTS RESULT OUT OF RANGE REFERENCE UNITS LAB L501.2300 2.5-4.9 mg/dL Low PHOS 2.1 Performed By: #### L500.3400, L501.2300, L501.5200 #### [facility] [address] [place], [address] MAGNESIUM Collected: 12/17/2017 Status: F Source: [place] 4:35 AM [facility] TYPE CODE TESTS RESULT OUT OF RANGE REFERENCE UNITS LAB L501.5200 1.6-2.6 mg/dL Normal MG 1.7 Performed By: #### L500.3400, L501.2300, L501.5200 #### [facility] [address] [place], [address] BASIC METABOLIC Collected: 12/17/2017 Status: F Source: [place] PROFILE (BMP) 4:35 AM [facility] TYPE CODE TESTS RESULT OUT OF [...] Normal 11 Performed By: #### L500.2500 #### [facility] [address] [place], [address] LACTIC ACID Collected: 12/16/2017 Status: F Source: [place] 9:45 PM [facility] Order Comment: Yes/No query for Sepsis Lactate Rule Y TYPE CODE TESTS RESULT OUT OF RANGE REFERENCE UNITS LAB L503.6005 0.4-2.0 mmol/L Normal LACTIC ACID 1.0 Performed By: #### L503.6005 #### [facility] [address] [place], [address] CPK TOTAL, CREATINE Collected: 12/16/2017 Status: F Source: [place] KINASE 9:36 PM [facility] Order Comment: Comments: DC when propofol is d/c'd Comments: DC when propofol is d/c'd TYPE CODE TESTS RESULT OUT OF RANGE REFERENCE UNITS LAB L501.3620 26-192 U/L Normal CPK TOTAL 124 Performed By: #### L501.3620, L501.5000 #### [facility] [address] [facility] [place], [address] TRIGLYCERIDES Collected: 12/16/2017 Status: F Source: [place] 9:36 PM [facility] Order Comment: Comments: DC when propofol [...] mg/dL Performed By: #### L501.3620, L501.5000 #### [facility] [address] [place], [address] LACTIC ACID Collected: 12/16/2017 Status: F Source: [place] 8:23 PM [facility] TYPE CODE TESTS RESULT OUT OF RANGE REFERENCE UNITS LAB L503.6005 0.4-2.0 mmol/L Normal LACTIC ACID 1.2 Performed By: #### L503.6005 #### [facility] [address] 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 Code Visit Inpatient E AND M: 22709 Init Hosp L3 12/16/17 9768 <Electronically signed by Cody Corey DO> Date Cody Corey DO Cosigner Signature: Date (if applicable) CC: No Primary Care Physician; Cody Corey DO Signed SPINAL FLUID CELL Collected: 12/16/2017 Status: C Source: [place] COUNT+DIFF 6:40 PM [facility] Order Comment: Order Date: 12/16/17 Specimen [...] Normal RBC,CSF Performed By: #### L200.0100 #### [facility] [address] [facility] [place], [address] GLUCOSE SPINAL FLUID Collected: 12/16/2017 Status: F Source: [place] 6:40 PM [facility] Order Comment: Order Date: 12/16/17 Comments: Tube #2 Has pt arrived? Y TYPE CODE TESTS RESULT OUT OF RANGE REFERENCE UNITS LAB L501.0400 40-75 mg/dL Normal GLU SPINAL 70 FLD Performed By: #### L501.0400 #### [facility] [address] [facility] [place], [address] PROTEIN SPINAL FLUID Collected: 12/16/2017 Status: F Source: [place] 6:40 PM [facility] Order Comment: Order Date: 12/16/17 Has pt arrived? Y Comments: Tube #2 TYPE CODE TESTS RESULT OUT OF RANGE REFERENCE UNITS LAB L501.1600 15.0-45.0 mg/dL Normal PROTEIN CSF 23.0 Performed By: #### L501.1600 #### [facility] [address] [facility] [place], [address] Observed: 12/16/2017 Status: F Source: [place] CULTURE, CSF 6:40 PM [facility] Order Date: 12/16/17 Has pt arrived? Y Comments: Tube #3 Gram Stain Centrifuged Specimen? Culture performed on centrifuged specimen Gram Stain No organisms seen Rare White Blood Cells CSF Culture No growth in 72 hours. Performed By: #### M100.0700 #### [facility] [address] [facility] [place], [address] EMERGENCY DEPARTMENT Observed: 12/16/2017 Status: F Source: [place] SUMMARY 6:37 PM [facility] Medical Records Department [address] [place] [address] Emergency Department Summary 12/16/17 1509 MR#: [id number] Acct: [id number] Name: MARIA T DALLAS Rep #: [id number] : 1995 22 From: Toby Landaverde MD [...] is no ossific ST-T wave changes noted. ND interval is normal. Respirations normal. QT interval is normal. [place] is normal. Portable chest x-ray reveals normal [...] first attempt. Using Seldinger technique a 7.5 Argentine triple-lumen was placed. Chest x-ray was obtained [...] Impression: [] This note was generated with Central Desktop dictation software. It may contain incorrect words, [...] your Primary Care Provider. Call [facility] ([phone]) or report to the closest Emergency Room. Call 911 if necessary. 12/16/171836 <Electronically signed by Toby Landaverde MD> Date Toby Landaverde MD Cosigner Signature (If Indicated): Date CC: No Primary Care Physician PROTHROMBIN TIME W/INR Collected: 12/16/2017 Status: F Source: [place] 5:50 PM [facility] Order Comment: REDRAW. PREVIOUS SPECIMEN REJECTED DUE TO HEMOLYZED FOR SECOND TIME. 12/16/17 1631 TYPE CODE TESTS RESULT OUT OF RANGE REFERENCE UNITS LAB L300.4150 11.7-14.9 SECONDS High PROTIME 17.5 LAB L300.4200 Normal INR 1.4 Performed By: #### L300.3900, L300.4310 #### [facility] [address] [place], [place], [address] PARTIAL THROMBOPLAST Collected: 12/16/2017 Status: F Source: [place] TIME 5:50 PM [facility] Order Comment: REDRAW. PREVIOUS SPECIMEN REJECTED DUE TO HEMOLYZED FOR SECOND TIME. 12/16/17 1631 TYPE CODE TESTS RESULT OUT OF REFERENCE UNITS RANGE LAB L300.4310 24.1-36.2 Seconds High PTT 43.3 Performed By: #### L300.3900, L300.4310 #### [facility] [address] [place], [address] CXR FOR LINE PLACEMENT Observed: 12/16/2017 Status: F Source: [place] 5:21 PM [facility] Imaging Services [address] [place] [address] CXR for Line Placement MR#: [id number] Acct: [id number] Name: MARIA T DALLAS Rep #: [id number] : 1995 F 22 From: Shad Slade MD PCP: Care Physician, No Primary Status: ADM IN Study: CXR for Line Placement Date of Exam: 12/16/17 Exam# [id number] Ordering Dr: Toby Landaverde MD STUDY: X-RAY [...] No Primary Care Physician; Toby Landaverde MD Vulnerability Assessment Analyst: Signed Observed: 12/16/2017 Status: C Source: [place] CULTURE, BLOOD (WB) 4:33 PM [facility] BC ANAEROBIC BOTTLE GRAM STAIN= GRAM [...] >=320 R (NF) indicates non-formulary drug at [facility]. Approval by Infectious Disease Specialist required before non-formulary drugs may be ordered and/or dispensed. Performed By: #### M200.1000 #### [facility] [address] [place], [address] URINE DRUG SCREEN Collected: 12/16/2017 Status: F Source: LIA (MUNA) 4:23 PM [facility] Order Comment: Order Date: 12/16/17 Has pt arrived? Y TYPE CODE TESTS RESULT OUT OF RANGE REFERENCE UNITS LAB L505.0075 TO BE Normal CONFIRMED Result Comment: CONFIRMATORY TESTING FOR ALL POSITIVE URINE DRUG SCREEN RESULTS WILL ONLY BE SENT OUT UPON PHYSICIAN ORDER. [facility] methods provide [...] Normal NEGATIVE Performed By: #### L505.5000 #### [facility] [address] [place], [address] URINALYSIS, COMPLETE Collected: 12/16/2017 Status: F Source: [place] 4:23 PM [facility] Order Comment: Order Date: 12/16/17 Has pt arrived? Y How was Urine Obtained? VERIFIER OPERATOR TO SPECIFY TYPE CODE TESTS RESULT OUT [...] 0-5 SEEN Performed By: #### L400.0001 #### [facility] [address] [place], [address] Observed: 12/16/2017 Status: F Source: [place] CULTURE, URINE 4:23 PM [facility] Order Date: 12/16/17 Has pt arrived? Y Urine Culture ORGANISM 1: Escherichia coli [place] Count >100,000 Escherichia coli: REACTION Amoxacillin/Clavulanic Acid [...] >=320 R (NF) indicates non-formulary drug at [facility]. Approval by Infectious Disease Specialist required before non-formulary drugs may be ordered and/or dispensed. Performed By: #### M100.0650 #### [facility] [address] [place], [address] BLOOD GASES BY CPS Collected: 12/16/2017 Status: F Source: [place] 4:22 PM [facility] TYPE CODE TESTS RESULT OUT OF [...] ISTAT 100 Performed By: #### L9000.0800 #### [facility] Point of Care [address] [facility] [place] [place] [address] ,SERUM,HCG QUALI. Collected: Status: F Source: [place] 12/16/2017 4:20 PM [facility] TYPE CODE TESTS RESULT OUT OF REFERENCE UNITS RANGE LAB L700.7000 0-9 Nonpreg Negative Normal HCGSQUAL NEGATIVE LAB L700.6700 =>Qualitative mIU/mL Normal HCG Qual < 1 triggr Performed By: #### L700.6800 #### [facility] [facility] [place] [place], [address] HIV - [facility] Collected: 12/16/2017 Status: F Source: [place] 4:20 PM [facility] Order Comment: Has pt arrived? Y TYPE CODE TESTS RESULT OUT OF RANGE REFERENCE UNITS LAB L3890.6005 Nonreactive Normal HIV - [facility] Non-Reactive Performed By: #### L3890.6005 #### [facility] [address] [place] [address], [address] HEPATITIS B SURFACE Collected: 12/16/2017 Status: F Source: [place] AG 4:20 PM [facility] Order Comment: Has pt arrived? Y [...] Status: F Source: [place] TOTAL 4:20 PM [facility] Order Comment: Has pt arrived? Y Has pt arrived? Y Has pt arrived? Y Has pt arrived? Y TYPE CODE TESTS RESULT OUT OF REFERENCE UNITS RANGE LAB L3100.0460 Negative High HEP B Positive CORE,TOT Result Comment: Performed at: - [facility] [address] [id number] Mechanical Specialist: Jayce Jin MD, Phone: [phone] Performed at: - [facility] [address] [id number] Mechanical Specialist: Tony Nguyen PhD, Phone: [phone] Performed By: #### L3100.0390, L3100.0460, L3100.0528, L3100.0625, L3400.1645 #### [facility] (refer to report for specific site) refer to report for address and phone number HEP B SURFACE Collected: 12/16/2017 Status: F Source: [place] ANTIBODIES 4:20 PM [facility] Order Comment: Has pt arrived? Y [...] 12/16/2017 Status: F Source: [place] 4:20 PM [facility] Order Comment: Has pt arrived? Y [...] with a HCV Nucleic Acid Amplification test (010145). Performed By: #### L3100.0390, L3100.0460, L3100.0528, L3100.0625, L3400.1645 #### [facility] (refer to report for specific site) refer to report for address and phone number HSV 1/2 BY PCR Collected: 12/16/2017 Status: F Source: [place] 4:20 PM [facility] Order Comment: Has pt arrived? Y Has pt arrived? Y Has pt arrived? Y Has pt arrived? Y TYPE CODE TESTS RESULT OUT OF RANGE REFERENCE UNITS LAB L3400.1650 Negative Normal HSV 1 Negative BY PCR LAB L3400.1655 Negative Normal HSV 2 Negative BY PCR Result Comment: This test was developed and its performance characteristics determined by [employer]. It has not been cleared or approved [...] 1 VIEW Observed: 12/16/2017 Status: F Source: [place] (PORTABLE) 3:49 PM [facility] Imaging Services [address] [place] [address] Chest 1 View (Portable) MR#: [id number] Acct: [id number] Name: MARIA T DALLAS Rep #: [id number] : 1995 F 22 From: Shad Slade MD PCP: Care Physician, No Primary Status: REG ER Study: Chest 1 View (Portable) Date of Exam: 12/16/17 Exam# [id number] Ordering Dr: Toby Landaverde MD STUDY: X-RAY [...] No Primary Care Physician; Toby Landaverde MD Vulnerability Assessment Analyst: Signed BRAIN/HEAD WITHOUT Observed: 12/16/2017 Status: F Source: [place] CONTRAST 3:49 PM [facility] Imaging Services [address] [place] [address] Brain/Head without Contrast MR#: [id number] Acct: [id number] Name: MARIA T DALLAS Rep #: [id number] : 1995 F 22 From: Shad Slade MD PCP: Care Physician, No Primary Status: REG ER Study: Brain/Head without Contrast Date of Exam: 12/16/17 Exam# [id number] Ordering Dr: Toby Landaverde MD STUDY: CT [...] No Primary Care Physician; Toby Landaverde MD Vulnerability Assessment Analyst: Signed LACTIC ACID Collected: 12/16/2017 Status: F Source: [place] 3:15 PM [facility] Order Comment: Yes/No query for Sepsis Lactate Rule Y TYPE CODE TESTS RESULT OUT OF REFERENCE UNITS RANGE LAB L503.6005 0.4-2.0 mmol/L High LACTIC ACID 2.7 Result Comment: Critical Result(s) Called at: 16:00:19 12/16/2017 by: LAYA GONZALES Performed By: #### L503.6005 #### [facility] [address] [facility] [place], [address] CBC W/DIFF, AUTOMATED Collected: 12/16/2017 Status: F Source: [place] 3:15 PM [facility] TYPE CODE TESTS RESULT OUT OF [...] M.D. 12/18/17 Performed By: #### L100.0100 #### [facility] [place], [address] COMPREHENSIVE METABOLIC Collected: 12/16/2017 Status: F Source: [facility] 3:15 PM [facility] TYPE CODE TESTS RESULT OUT OF [...] GAP 13 Performed By: #### L500.4050 #### [facility] [address] [place], [address] Observed: 12/16/2017 Status: F Source: [place] CULTURE, BLOOD (WB) 3:15 PM [facility] BC No growth in 5 days. Performed By: #### M200.1000 #### [facility] [address] [place], [address] CHEST 1 VIEW Observed: 12/16/2017 Status: F Source: [place] (PORTABLE) 3:05 PM [facility] Imaging Services [address] [place] [address] Chest 1 View (Portable) MR#: [id number] Acct: [id number] Name: MARIA T DALLAS Rep #: [id number] : 1995 F 22 From: Leslie Orozco MD PCP: Care Physician, No Primary Status: PRE ER Study: Chest 1 View (Portable) Date of Exam: 12/16/17 Exam# [id number] Ordering Dr: Toby Landaverde MD STUDY: X-RAY [...] No Primary Care Physician; Toby Landaverde MD Vulnerability Assessment Analyst: Signed EMERGENCY DEPARTMENT Observed: 12/14/2017 Status: F Source: [place] SUMMARY 12:25 AM [facility] Medical Records Department [address] [place] [address] Emergency Department Summary 12/13/17 1830 MR#: [id number] Acct: [id number] Name: MARIA T DALLAS Rep #: [id number] : 1995 22 From: Cori Medel MD [...] Impression: eloped This note was generated with Central Desktop dictation software. It may contain incorrect words, [...] your Primary Care Provider. Call [facility] ([phone]) or report to the closest Emergency Room. Call 911 if necessary. 12/14/17 0025 <Electronically signed by Cori Medel MD> Date Cori Medel MD Cosigner Signature (If Indicated): Date CC: No Primary Care Physician PROGRESS Observed: 11/17/2017 Status: COMPLETED Source: [place] 2:50 PM [facility] [place] REPOSITORY [facility] ID: [id number] Author: Aye (Scar) Older Service: (none) Author [...] under the care of psychiatry at [facility] who were managing these medications. She stopped [...] APRN.SCAR ALMANZAR Observed: 11/17/2017 Status: COMPLETED Source: [place] 2:40 PM [facility] REPOSITORY Office Visit (INTMWS) MARIA T DALLAS ([id number]) 1995 F Date Time Provider Department 11/17/17 2:40 PM AYE NAYLOR (SCAR) INTMWS During your visit today, we recorded the following information about you: Temperature Pulse Blood pressure Weight 98.3 degrees 86/minute 100/80 46.4 kg Aye Naylor, COUNTER WEIGHER.SCAR 11/20/2017 7:13 AM Signed CC: Patient presents with: Rx Refills HPI Maria T Dallas is a 22 year old female who presents today for medication refills. Requesting refills on Clonidine, Gabapentin and Topamax which she takes for psychiatric illness. Patient has an extensive history of drug abuse, suicide attempts and psychiatric hospital admissions. She was under the care of psychiatry at [facility] who were managing these medications. She stopped seeing psychiatry a few months ago and won't go back because they tried to kill me with medications. Has not been able to find a new psychiatrist close to her. REVIEW OF SYSTEMS See [facility] PAST MEDICAL HISTORY Diagnosis Date [...] OR W/O BRSH SPEC 04/04/12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 hours as needed (nausea). [place]-Zq-Wdl-Fe-FA ( VITAMIN) tab Take 1 tablet by [...] external genitalia normal, normal Bartholin's glands, urethra, [place]'s glands, no vulvar lesions, no cervical lesions, [...] Order(s):BACT/YANG VAG GRAM STAIN [SQBVCNSM] Order #: [id number] FUTURE TRICHOMONAS PREP [SQTRICHO] Order #: [id number]. #:[id number] GC/CHLAMYDIA DNA DET [SQGCCAMP] Order #: [id number]. #:[id number] HCG QUANTITATIVE [SQHCGQT] Order #: [id number] FUTURE HIV 1,2 COMBO (AG/AB) [SQHIV12] Order #: [id number] FUTURE HCV QUANT RNA BY PCR [SQHCQPCR] Order #: [id number] FUTURE HEP B SURF AG SCRN [SQHBSAG] Order #: [id number] FUTURE SYPHILIS IGG WITH CONF [SQSYPHGX] Order #: [id number] FUTURE BACT/YANG VAG GRAM STAIN [SQBVCNSM] Order #: [id number]. #:[id number] Prescriptions as of 05/26/2017 Sig: LAMOTRIGINE 25 [...] EMERGENCY DEPARTMENT Observed: 05/22/2017 Status: F Source: [place] SUMMARY 3:56 AM [facility] Medical Records Department [address] [place] [address] Emergency Department Summary 05/22/17 0155 MR#: [id number] Acct: [id number] Name: MARIA T DALLAS Rep #: [id number] : 1995 22 From: Dorian Paul MD [...] an elective This note was generated with Central Desktop dictation software. It may contain incorrect words, [...] problems, contact your Primary Care Provider. Call [employer] [facility] ([phone]) or report to the closest Emergency Room. Call 911 if necessary. 05/22/17 0354 <Electronically signed by Dorian Paul MD> Date Dorian Paul MD Cosigner Signature (If Indicated): Date CC: Sean Franz MD ,URINE Collected: 05/22/2017 Status: F Source: [place] 2:20 AM [facility] TYPE CODE TESTS RESULT OUT OF REFERENCE UNITS RANGE LAB L400.8000 Negative Normal HCGUQUAL Negative Result Comment: Very dilute urine specimens, as indicated by a low specific gravity, may not contain medical device sales representative levels of hCG. If is still suspected, a first morning urine specimen should be collected 48 hours later and tested. Performed By: #### L400.7600 #### [facility] [address] [place], [address] URINALYSIS, COMPLETE Collected: 05/22/2017 Status: F Source: [place] 2:20 AM [facility] Order Comment: How was Urine Obtained? VERIFIER OPERATOR TO SPECIFY TYPE CODE TESTS RESULT OUT [...] Normal AMORPHOUS Performed By: #### L400.0001 #### [facility] [address] [place], [address] OPERATIVE REPORT Observed: 05/05/2017 Status: F Source: [place] 1:32 PM [facility] Medical Records Department [address] [place] [address] Operative Report 05/05/17 1328 MR#: [id number] Acct: [id number] Name: MARIA T DALLAS Rep #: [id number] : 1995 22 From: Willa Lau MD PCP: Sean Franz MD Status: REG [facility] Y Location: [place] [address] Operative Report Date of Procedure: 05/05/17 Surgeon: Dr. Willa Stoddard Tester Compressed Gases: None Pre op Diagnosis: retained products of [...] was given. patient was placed in yellow [facility] stirrups and prepped and draped in normal [...] course. 05/05/17 1332 <Electronically signed by Willa Lau MD> Date Willa Stoddard MD CC: Sean Franz MD; Willa Stoddard MD Signed DISCHARGE INSTRUCTION Observed: 05/05/2017 Status: F Source: [place] 1:28 PM [facility] Medical Records Department [address] [place] [address] [place] [address] Instructions for Home/Discharge Instructions 05/05/17 1327 MR#: [id number] Acct: [id number] Name: MARIA T DALLAS Rep #: [id number] : 1995 22 From: Willa Lau MD PCP: Sean Franz MD Status: REG [...] Franz MD [Primary Care Provider] - 05/05/17 4024 <Electronically signed by Willa Lau MD> Date Willa Stoddard MD CC: Sean Franz MD CBC-COMPLETE BLOOD CNT Collected: 05/05/2017 Status: F Source: [place] NO DIFF 11:20 AM [facility] TYPE CODE TESTS RESULT OUT OF [...] 9.2 Performed By: #### L100.0500, B101.7450 #### [facility] [address] [place], [address] TYPE AND SCREEN Collected: 05/05/2017 Status: F Source: [place] 11:20 AM [facility] Order Comment: Reason for Type AND Screen/Red Cells: SURGERY TYPE CODE TESTS RESULT OUT OF RANGE REFERENCE UNITS LAB B10.0800 O Normal BLOOD TYPE GEL POSITIVE LAB B100.4000 Normal Antibody NEGATIVE Screen Performed By: #### L100.0500, B101.7450 #### [facility] [address] [place], [address] PRODUCTS OF CONCEPTION Observed: 05/05/2017 Status: F Source: [place] 12:00 AM [facility] Patient: MARIA T DALLAS : 1995 () Acct Num: [id number] Phys: Richi FIGUEROA,Willa Unit Num: [id number] Loc: [facility] Specimen: [id number] Received: 05/05/17 - 1508 Spec [...] four cassettes. / KAREN:alycia 05/05/17 TC:5 CPT: 17915 HEADER OPERATION: Dilation and curettage, suction for incomplete PRE-OP DIAGNOSIS: Retained products from termination of TISSUE SUBMITTED: Retained products of conception MICROSCOPIC DESCRIPTION Slides are reviewed. MICROSCOPIC DIAGNOSIS Retained products of conception: [place]id[place], gestational endometrium and infarcted immature chorionic villi ( products of conception). KAREN:alycia 05/08/17 Signed Carlos Malave 05/08/17 <signature on file> Performed By: #### PPOC #### [facility] [address] [place], [address] PROGRESS Observed: 05/02/2017 Status: COMPLETED Source: [place] 11:14 AM [facility] REPOSITORY O ID: [id number] Author: Willa Lau Service: (none) Author Type: Physician Type: Progress Notes Filed: 05/02/2017 12:09 PM Note Text: Flasher Adjuster offered: Patient declines. HISTORY and PHYSICAL: Maria T Dallas is a 22 year old female who presents for follow up for incomplete termination of . Pt had Misoprostol given by PP in [facility], last week was seen by CC[facility] [...] - PAST MEDICAL HISTORY OF 08/2006 hospitalized [facility] for overdose - PMH - PAST MEDICAL HISTORY OF normal color vision - Restless leg - TMJ (dislocation of temporomandibular joint) - Varicella without mention of complication at age 2-3 years per mother PAST SURGICAL HISTORY Procedure Laterality Date - APPENDECTOMY 07/13 - COLONOSCOP W/ OR W/O [facility] SPEC 04/04/12 Colonoscopy - EGD 01/2012 [...] mouth every 6 hours as needed (nausea). Ffbdvrdk-Wi-Ibw-Fe-FA ( VITAMIN) tab Take 1 tablet by [...] 10/10/2011 GI Upset NAPROXEN 01/31/2012 GI Upset RTISH [OTHER] 04/06/2005 Rash PENICILLINS 04/06/2005 Hives ULTRAM [...] external genitalia normal, normal Bartholin's glands, urethra, [place]'s glands, no vulvar lesions, no cervical lesions, [...] AND DIFFERENTIAL Collected: 04/26/2017 Status: F Source: [place] 4:12 PM [facility] REPOSITORY TYPE CODE TESTS [...] k/uL Abs Lymph 2.90 LAB AMONO % [place]% 6.0 LAB AAMONO <0.87 k/uL Abs [place] 0.81 LAB AEOS % Eosin% 1.5 LAB AAEOS <0.46 k/uL Abs Eosin 0.21 LAB ABASO % Baso% 0.7 LAB AABASO <0.11 k/uL Abs Baso 0.09 LAB AUNRBC 0 /100 WBC NRBCs 0.0 LAB ABNRBC <0.01 k/uL Absolute nRBC <0.01 LAB DTYP DTYPE Auto Diff Performed By: #### CBCDIF, HCGQT #### [facility] [address] [place], [place] [address] HCG, QUANTITATIVE BL Collected: 04/26/2017 Status: F Source: [place] 4:12 PM [facility] REPOSITORY TYPE CODE TESTS RESULT OUT OF REFERENCE UNITS RANGE LAB HCGQT <5.0 mU/mL HCG, High Quantitative Bl 2719.0 Result Comment: QUANTITATIVE HCG NORMAL RANGES Weeks of Gestation (Weeks Since LMP) 3 Weeks (5.8-71.2 mIU/mL) 4 Weeks (9.5-750 mIU/mL) 5 Weeks (217-7138 mIU/mL) 6 Weeks (158-83603 mIU/mL) 7 Weeks (3697-562506 mIU/mL) 8 Weeks (06011-567058 mIU/mL) 9 Weeks (83064-841199 mIU/mL) 10 Weeks (42179-689808 mIU/mL) 12 Weeks (72735-244755 mIU/mL) Referenced to 4th IS of [facility] Performed By: #### CBCDIF, HCGQT #### [facility] [address] [place], [place] [address] PROGRESS Observed: 04/24/2017 Status: COMPLETED Source: [place] 10:15 AM [facility] REPOSITORY HNO ID: [id number] Author: Savannah Sanchez Service: (none) Author Type: Principal Military Analyst Type: Progress Notes Filed: 04/24/2017 4:06 PM Note Text: Maria T Dallas is a 22 year old female who presents for problem visit. HPI: Was seen in [place] [place] at [facility] for induced .Took Misoprostol on 04/20/17 at 7w5d EGA, passed tissue the next day. Complaint of increased pain, pain on left side and radiating down left leg. Changing pads every 1-2 hours. LMP 02/24/17, Took Sandy on 04/21/17, was given 4 tablets. Taking [...] - PAST MEDICAL HISTORY OF 08/2006 hospitalized [facility] for overdose - PMH - PAST MEDICAL HISTORY OF normal color vision - Restless leg - TMJ (dislocation of temporomandibular joint) - Varicella without mention of complication at age 2-3 years per mother PAST SURGICAL HISTORY Procedure Laterality Date - APPENDECTOMY 07/13 - [facility] 04/04[facility]12 Colonoscopy - EGD 01/2012 [...] mouth every 6 hours as needed (nausea). Uahsfeiv-Ll-Nys-Fe-FA ( VITAMIN) tab Take 1 tablet by [...] external genitalia normal, normal Bartholin's glands, urethra, [place]'s glands, no vulvar lesions, no cervical lesions, [...] Sanchez CNM Observed: 04/17/2017 Status: F Source: [place] URINE CULTURE 4:04 PM [facility] REPOSITORY Sp. Request/Comment: - Specimen received in preservative Culture Result - 10,000 - <50,000 CFU/ml Normal urogenital lev Performed By: #### URCUL #### [facility] [address] [place] [place] [id number] GC/CHLAMYDIA AMPLIF Collected: 04/17/2017 Status: F Source: [place] 2:56 PM [facility] REPOSITORY TYPE CODE TESTS RESULT OUT OF REFERENCE UNITS RANGE LAB GCCTSR GC/Chlam Amp Cervix Source LAB GCAMPL GC Negative Amplification for Neisseria gonorrhoeae by amplification. LAB CLAMPL Chlamydia Negative Amplif for Chlamydia trachomatis by amplification. Performed By: #### GCCT #### [facility] [address] [place], [place] [address] PROGRESS Observed: 04/17/2017 Status: COMPLETED Source: [place] 2:09 PM [facility] REPOSITORY HNO ID: [id number] Author: Francisco Rojas Service: (none) Author Type: [...] APPENDECTOMY 07/13 - COLONOSCOP W/ OR W/O [facility] SPEC 04/04/12 Colonoscopy - EGD 01/2012 [...] TOXICOLOGY SCREEN,UR Collected: 04/17/2017 Status: F Source: [place] 9:35 AM [facility] REPOSITORY TYPE CODE TESTS RESULT [...] on the same specimen through Client Services ([phone]) if contacted within 48 hours of initial testing. These tests were developed and their performance characteristics determined by [facility] ([facility]). They have not been cleared or a pproved by the FDA. [facility] is regulated under CLIA as qualified to perform high complexity testing. These tests are used for clinical purposes. They should not be regarded as investigational or for research. Performed By: #### UTOX2 #### [facility] [address] [place], [place] [address] EMERGENCY DEPARTMENT Observed: 04/14/2017 Status: F Source: [place] SUMMARY 10:34 PM [facility] [facility] Medical Records Department [address] [place] [address] Emergency Department Summary 04/14/17 1753 MR#: [id number] Acct: [id number] Name: MARIA T DALLAS Rep #: [id number] : 1995 22 From: Ramesh Spicer DO [...] She was encouraged to follow-up with her BILINGUAL MANAGER or PCP. Treatment Plan: [] Follow-up with primary care physician. Disposition: [] Discharge, stable. Impression: [] URI Hypokalemia This note was generated with Central Desktop dictation software. It may contain incorrect words, [...] your Primary Care Provider. Call Doctors Registry ([phone]) or report to the closest Emergency Room. Call 911 if necessary. 04/14/172233 <Electronically signed by Ramesh Spicer DO> Date Ramesh Spicer DO Cosigner Signature (If Indicated): Date CC: Sean Franz MD DISCHARGE INSTRUCTION Observed: 04/14/2017 Status: F Source: [place] 7:37 PM [facility] [place] [facility] Medical Records Department [address] [place] [address] Discharge Instruction 04/14/171934 MR#: [id number] Acct: [id number] Name: MARIA T DALLAS Rep #: [id number] : 1995 22 From: Ramesh Spicer DO [...] your Primary Care Provider. Call [facility] ([phone]) or report to the closest Emergency Room. Call 911 if necessary. 04/14/171936 <Electronically signed by Ramesh Spicer DO> Date Ramesh Spicer DO Cosigner Signature (If Indicated): Date CC: Sean Franz MD CBC W/DIFF, AUTOMATED Collected: 04/14/2017 Status: F Source: [place] 6:05 PM [facility] [place] TYPE CODE TESTS RESULT OUT OF [...] Lymph 2.33 Performed By: #### L100.0100 #### [facility] [address] [place], [place], [id number] BASIC METABOLIC Collected: 04/14/2017 Status: F Source: LIA PROFILE (BMP) 6:05 PM [facility] [place] TYPE CODE TESTS RESULT OUT OF [...] Normal 8 Performed By: #### L500.2500 #### [facility] [address] [facility] [facility] [place], [place], [address] CHEST PA AND LATERAL Observed: 04/14/2017 Status: F Source: LIA 5:53 PM [facility] [place] [facility] Imaging Services [address] [facility] [address] Chest PA and Lateral MR#: [id number] Acct: [id number] Name: MARIA T DALLAS Rep #: [id number] : 1995 F 22 From: Sy Campoverde DO PCP: Sean Franz MD Status: REG ER Study: Chest PA and Lateral Date of Exam: 04/14/17 Exam# [id number] Ordering Dr: Ramesh Spicer DO STUDY: X-RAY [...] Sy Campoverde DO at 18:52 EST Tel [phone], Service support , CC: Sean Franz MD; Ramesh Spicer DO Vulnerability Assessment Analyst: Signed HCG, QUANTITATIVE BL Collected: 04/13/2017 Status: F Source: [place] 12:37 PM [facility] REPOSITORY TYPE CODE TESTS RESULT OUT OF REFERENCE UNITS RANGE LAB HCGQT <5.0 mU/mL HCG, High Quantitative Bl 41905.0 Result Comment: QUANTITATIVE HCG NORMAL RANGES Weeks of Gestation (Weeks Since LMP) 3 Weeks (5.8-71.2 mIU/mL) 4 Weeks (9.5-750 mIU/mL) 5 Weeks (217-7138 mIU/mL) 6 Weeks (158-24853 mIU/mL) 7 Weeks (3697-046143 mIU/mL) 8 Weeks (16392-607059 mIU/mL) 9 Weeks (33830-877152 mIU/mL) 10 Weeks (08572-829475 mIU/mL) 12 Weeks (45611-231490 mIU/mL) Referenced to 4th IS of [facility] Performed By: #### HCGQT #### [facility] [address] [place], [place] [address] OBSOLETE Observed: 04/07/2017 Status: COMPLETED Source: [place] 12:00 AM [facility] REPOSITORY Refill (INTMWS) MARIA T DALLAS Edward ([id number]) 1995 F Date Time Provider Department 04/07/17 SEAN FRANZ INTKaleeWS During your visit today, we recorded the following information about you: Marcio Almodovar LPN 04/07/2017 12:31 PM Signed Patient walked into [email or web address] today. Patient stated that she is and [...] 04/07/17 PROGRESS Observed: 04/06/2017 Status: COMPLETED Source: [place] 5:16 PM [facility] [place] REPOSITORY [facility] ID: [id number] Author: Deirdre Johnson RN Service: (none) Author [...] QUANTITATIVE BL Collected: 04/06/2017 Status: F Source: [place] 10:59 AM [facility] REPOSITORY TYPE CODE TESTS RESULT OUT OF REFERENCE UNITS RANGE LAB HCGQT <5.0 mU/mL HCG, [place] [address]14.0 Result Comment: QUANTITATIVE HCG NORMAL RANGES Weeks of Gestation (Weeks Since LMP) 3 Weeks (5.8-71.2 mIU/mL) 4 Weeks (9.5-750 mIU/mL) 5 Weeks (217-7138 mIU/mL) 6 Weeks (158-29188 mIU/mL) 7 Weeks (3697-370293 mIU/mL) 8 Weeks (82466-787284 mIU/mL) 9 Weeks (79967-696297 mIU/mL) 10 Weeks (04098-506822 mIU/mL) 12 Weeks (02076-587264 mIU/mL) Referenced to 4th IS of [facility] Performed By: #### HCGQT #### [facility] [address] [place] [address] CNNURSE Observed: 04/06/2017 Status: COMPLETED Source: [place] 9:30 AM [facility] REPOSITORY Nurse Visit (WOOB) MARIA T DALLAS ([id number]) 1995 F Date Time Provider Department 04/06/17 9:30 AM NURSE PNOB [facility] WSTR WOOB During your visit today, we recorded the following information about you: Last Period 02/24/17 Deirdre Johnson RN 04/06/2017 10:23 AM Signed SEQUENTIAL SCREENINGS The [facility] offers sequential screenings for women who are [...] It will require an appointment with our control technician. This is not an ultrasound performed [...] the above symptoms, contact our office at [phone] and ask to speak with a nurse. After hours, you can call doctors registry at [phone] OR call [facility] at [phone] and ask to have the doctor field identification specialist paged. If you consider this an emergency, [...] treatment is particularly effective in young patients-the [facility] Cord Blood Bank reports a 70 percent [...] issues. What do the experts say? The [employer] [employer] encourages philanthropic blood banking [...] baby needs at the moment. The nurse, animal care attendant, or physician will then label the samples, [...] AHEAD OF TIME! Public cord-blood aaron--DONATION: [employer] [phone] [facility]'s Placental Blood Program, [facility] Umbilical Cord Blood Bank, Private cord-blood aaron--SAVING FOR YOUR OWN USE: [employer], (I think this is the least expensive) [employer] [phone] [employer], (616) [employer] [place] Cord Blood Bank, [phone]) 700-CORD Cells, [phone]-BABY [place] Cry[employer], Cord Blood Registry, (638) CORDBLOOD [employer], An Internet search may provide [...] 04/06/2017 10:04 AM >> DEIRDRE JOHNSON RN [facility] Apr 06, 2017 10:04 AM Pt no longer using ERYTHROMYCIN-BENZOYL PEROXIDE 3 %-5 % TOPICAL GEL >> Deirdre Johnson RN 04/06/2017 10:01 AM >> DEIRDRE JOHNSON RN [facility] Apr 06, 2017 10:01 AM Pt no longer using KETOCONAZOLE 2 % TOPICAL CREAM >> Deirdre Johnson RN 04/06/2017 10:04 AM >> DEIRDRE JOHNSON RN [facility] Apr 06, 2017 10:04 AM Pt no longer using FLUTICASONE 50 MCG/ACTUATION NASAL SPRAY,SUSPENSION >> Deirdre Johnson RN 04/06/2017 10:01 AM >> DEIRDRE JOHNSON RN [facility] Apr 06, 2017 10:01 AM Pt no longer using HYDROXYZINE PAMOATE 50 MG CAPSULE >> Deirdre Johnson RN 04/06/2017 10:03 AM >> DEIRDRE JOHNSON RN [facility] Apr 06, 2017 10:03 AM Pt no longer using LIDOCAINE 2 % MUCOSAL JELLY >> Deirdre Johnson RN 04/06/2017 10:04 AM >> DEIRDRE JOHNSON RN [facility] Apr 06, 2017 10:04 AM Pt [...] instructions from your clinician: SEQUENTIAL SCREENINGS The [facility] offers sequential screenings for women who are [...] It will require an appointment with our control technician. This is not an ultrasound performed [...] the above symptoms, contact our office at [phone] and ask to speak with a nurse. After hours, you can call doctors registry at [phone] OR call [facility] at [phone] and ask to have the doctor field identification specialist paged. If you consider this an emergency, [...] is particularly effective in young patients- the [facility] Cord Blood Bank reports a 70 percent [...] issues. What do the experts say? The [employer] encourages philanthropic blood banking [...] baby needs at the moment. The nurse, animal care attendant, or physician will then label the samples, [...] AHEAD OF TIME! Public cord-blood aaron--DONATION: [employer] [phone] [facility]'s Placental Blood Program, [facility] Umbilical Cord Blood Bank, Private cord-blood aaron--SAVING FOR YOUR OWN USE: [employer], (I think this is the least expensive) [employer] [phone] [employer], (538) [employer] [place] Cord Blood Bank, (251) 700-CORD Cells, [phone] 162-BABY [place] [employer], Cord Blood Registry, (010) CORDBLOOD [employer], An Internet search may provide you with additional listings. Disposition: Return in 11 days (on 04/17/2017) for New OB with Dr Rojas. Follow-up and Disposition History Recorded Letter Text Dear Maria T Dallas: How to activate your [facility]EL Account 1. Visit the VONTRAVEL Signup page at [email or web address] 2. Identify yourself using your one-time use activation code: [email or web address] 3. Follow the on-screen prompts to choose [...] information on the Identify Yourself Form at [email or web address] , click Next. Create your login and password, choose a VONTRAVEL ID and password that will be easy for you to use, but impossible for anyone else to guess. Pick a security question that will assist you in the event you forget your password the next time you log-on. If you have difficulty activating your account, please call our VONTRAVEL helpline at [phone] or toll free at . We hope you enjoy using MyChart! Kindest Regards, [facility] MyChart Team Encounter Status:Closed by DEIRDRE JOHNSON RN on 04/06/17 ALLERGIES ALLERGIES DATE TYPE / CODE NAME / CODE REACTION SEVERITY SOURCE Drug Penicillins/T73837 Shortness of Unknown Tow 8 Allergy/108210779( 0476(RXNORM) breath [facility] SNOM[facility]) Hospital Repository Drug doxycycline/U71301 Vomiting Unknown Lia 8 Allergy/096848084( 2748(RXNORM) Community SNOMED CT) Hospital Repository Drug sulfamethoxazole/F Upset Stomach Unknown Lia 8 Allergy/448341997( 456810170(RXNORM) Community SN[facility]) Hospital Repository Drug trimethoprim/F0060 Upset Stomach Unknown Tow 8 Allergy/589188285( 58360(RXNORM) Community SNOM[facility]) Hospital Repository Drug metronidazole/F006 Upset Stomach Unknown Lia 8 Allergy/353131136( 609299(RXNORM) Community [facility]) Hospital Repository Drug nickel/N765387434( Unknown Unknown Lia 8 Allergy/321331381( RXNORM) Community [facility]) Hospital Repository DRUG/968738052(SNO SULFAMETHOXAZOLE-T [place] [address]) RIMETHOPRIM [facility] Repository DRUG DOXYCYCLINE [place] 8 INGREDI/967078467( Children's SNOMED [facility]) Hospital Repository DRUG/808879527(SNO METRONIDAZOLE [place] [address]) [facility] Repository Drug PENICILLINS Patient states [place] 8 Class/831865363(SN she gets Children's OMED CT) [facility] [place] Repository DRUG NAPROXEN GI UPSET [place] INGREDI/527858712( Clinic Main SNOMED CT) [place] Repository DRUG METRONIDAZOLE HCL GI UPSET [place] INGREDI/158954467( [facility] Main SNOMED CT) [place] Repository DRUG TRAMADOL HCL OTHER: SEE C [place] 2 INGREDI/727583040( [facility] Main SNOMED CT) [place] Repository DRUG DOXYCYCLINE GI UPSET [place] 0 INGREDI/549319569( Clinic Main SNOMED CT) [place] Repository Miscellaneous OTHER RASH [place] 8 Allergy/804838992( Clinic Main SNOMED CT) [place] Repository DRUG AMOXICILLIN RASH [place] 6 INGREDI/215953433( Clinic Main SNOMED CT) [place] Repository Miscellaneous OTHER RASH [place] 6 Allergy/565141721( Clinic Main SNOMED CT) [place] Repository Drug PENICILLINS HIVES [place] 6 Class/800676488(SN [facility] Main OMED CT) [place] Repository ENCOUNTERS ENCOUNTERS ADMIT/DISCHARGE ACCOUNT NUMBER ADMITTING ENCOUNTER LOCATION SOURCE CLASS 02/23/2018/02/24/20 [id number] Emergency [address] ding:ED Repository 02/21/2018 [id number] Ambulatory [facility] ding:MFPLAB Repository 02/20/2018/02/22/20 [id number] Ambulatory [address] [place] Repository 01/20/2018/01/21/20 [id number] Emergency ABuilding:[address] Repository 12/16/2017 [id number] Ambulatory [facility] ding:ED Repository 12/16/2017 [id number] Madhav Ambulatory BMSBuilding: Tow [place] [facility] [place] 12/16/2017 [id number] Madhav Ambulatory BMSBuilding: [place] [facility] [place] 12/16/2017 [id number] Madhav Ambulatory BMSBuilding: [place] BMS.formerly [facility] Repository 12/16/2017 [id number] Madhav Ambulatory BMSBuilding: [place] BMS.[facility] [place] 12/16/2017 [id number] Madhav Ambulatory BMSBuilding: Lia [place] BMS.formerly [facility] Repository 12/16/2017 [id number] Madhav Ambulatory BMSBuilding: Lia [place] BMS.formerly [facility] Repository 12/16/2017/12/21/19 [id number] Madhav Inpatient Tow [place] [address] [facility] ding:[id number] Repository : FJ356Ykr: 1 12/16/2017 [id number] Madhav Ambulatory BMSBuilding: Tow [place] BMS.formerly [facility] Repository 12/16/2017 [id number] Madhav Ambulatory BMSBuilding: Lia [place] BMS..[facility] [place] 12/16/2017 [id number] Madhav Ambulatory BMSBuilding: Lia [place] BMS.formerly [facility] Repository 12/13/2017/12/14/19 [id number] Emergency [address] ding:ED Repository 11/17/2017/11/22/19 [id number] Ambulatory [address] Repository 09/29/2017 [id number] Agyelinetteg, Ambulatory BMSBuilding: Tow [place] BMS.formerly [facility] Repository 09/29/2017/10/03/19 [id number] Ambulatory BMSBuilding: Tow [facility] Repository 09/29/2017 [id number] Agyelinetteg, Ambulatory BMSBuilding: Lia [place] BMS.formerly [facility] Repository 09/29/2017/10/03/19 [id number] Agyelinetteg, Ambulatory [address] ding:RX2Icrz Repository : RN614Vfe: 1 09/11/2017 [id number] Ambulatory [facility] Repository 08/29/2017/08/30/19 [id number] Emergency [address] ding:ED Repository 08/14/2017/08/15/19 [id number] Emergency [address] ding:ED Repository 08/04/2017/08/06/19 [id number] Emergency ABuilding:[address] Repository 07/19/2017/07/20/19 [id number] Ambulatory Building:[place] [address] PATIENT BURN [facility] Repository 07/14/2017/07/15/19 [id number] Ambulatory Building:OUT [place] [address] PATIENT BURN [facility] Repository 07/10/2017/07/11/19 [id number] Ambulatory Building:OUT [place] 18 PATIENT BURN [facility] Hospital Repository 07/08/2017/07/09/19 [id number] Emergency Lia Tow [address] Hospital ding:ED Repository 07/07/2017/07/08/19 [id number] Emergency Tow Lia [address] Hospital ding:ED Repository 05/26/2017/06/07/19 [id number] Ambulatory [address] Repository 05/22/2017/05/23/19 [id number] Emergency Lia Tow [address] Hospital ding:ED Repository 05/11/2017/05/25/19 [id number] Ambulatory Lia Lia [address] Hospital ding:BHIOP Repository 05/05/2017/05/05/19 [id number] Ambulatory Tow Lia [address] Hospital ding:SDC Repository 05/04/2017/05/04/19 [id number] Ambulatory Tow Lia [address] Hospital ding:PT Repository 05/02/2017/05/02/19 [id number] Ambulatory [address] Repository 04/26/2017 [id number] Ambulatory [facility] Repository 04/24/2017/01/27/20 [id number] Ambulatory [address] Repository 04/24/2017/04/25/19 [id number] Ambulatory [address] Repository 04/17/2017/04/18/19 [id number] Ambulatory [address] Repository 04/14/2017/04/14/19 [id number] Emergency Lia Tow [address] Hospital ding:ED Repository 04/13/2017/04/13/19 [id number] Ambulatory [address] Repository 04/13/2017/05/10/19 [id number] Ambulatory Tow Tow [address] [place] [address] ding:BHIOP Repository 04/06/2017/04/06/19 [id number] Ambulatory [address] Repository 04/06/2017/04/07/19 [id number] Ambulatory [address] Repository PAYERS PAYERS ENCOUNTER GUARANTOR PAYER SUBSCRIBER SOURCE 02/23/2018 MARIA T Leon Primary MARIA T [id number] Insurance:CARESOURCE SPEEGLEDOB: Community [place] Policy Number: [id number] Hospital RDAPT [id number], [id number] Repository [place] [address]Duy: (330) Date:2018-02-23P O [phone] () [address]ATTN: [place]S [place] [address]NN: 02/23/2018 Secondary NOT GIVENUNK Lia Insurance:SELF PAY [facility] Number: Effective Repository Date:2018-02-23 02/21/2018 MARIA T S Primary NOT GIVENUNK Lia [id number] Insurance:SELF PAY [facility] [place] [address] [id number], Number: Effective Repository [place] [address]Isd: (330) Date:2018-02-21 [phone] () 01/20/2018 MARIA T S Primary MARIA T S [facility] SPEEGLEDOB: Insurance:CARESOURCE SPEEGLEDOB: [facility] [id number] MEDICAIDPolicy [id number] Repository [address] [address] Number: [facility] [address], [place] [id number] [address] [address]Bly: (770) Date:2018-01-20 72500Eih: () [phone] [phone] ()Tel: Name:[address] [place] [address] () [address]GG: 12/16/2017 TELSA S Primary NOT GIVENUNK Lia [id number] [place] Insurance:SELF PAY [facility] DRCATHLEEN 3WBURKEShriners Children's [address]Cmy: NONE Number: Effective Repository (HP) Date:2017-12-16 12/16/2017 MARIA T S Primary MARIA T S Tow [id number] [place] Insurance:CARESOURCE SPEEGLEDOB: [facility] [address]ATHLE[address], [place] Policy Number: [id number] Hospital [address]Zii: . () [id number] Repository Date:2017-12-16 [address]ATTN: [place] [address]ZW: 12/16/2017 Secondary NOT GIVENUNK Tow Insurance:SELF PAY [facility] Number: Effective Repository Date:2017-12-16 12/16/2017 MARIA T S Primary MARIA T S Lia [id number] [place] Insurance:CARESOURCE SPEEGLEDOB: Community [address] [place] [address] Policy Number: [id number] Hospital [address]Koe: . () [id number] Repository Date:2017-12-16 [address]ATTN: [place] [address]FX: 12/16/2017 Secondary NOT GIVENUNK Lia Insurance:SELF PAY [facility] Number: Effective Repository Date:2017-12-16 12/16/2017 MARIA T S Primary MARIA T S Tow [id number] [place] Insurance:CARESOURCE SPEEGLEDOB: Community [address] [place] [address] Policy Number: [id number] Hospital [address]Nue: . () [id number] Repository Date:2017-12-16 [address]ATTN: [place] [address]CD: 12/16/2017 Secondary NOT GIVENUNK Tow Insurance:SELF PAY [facility] Number: Effective Repository Date:2017-12-16 12/16/2017 TELSA S Primary TELSA S Lia [id number] [place] Insurance:CARESOURCE SPEEGLEDOB: Community [address] Policy Number: [id number] Hospital [address]Rch: NONE [id number] Repository () Date:2017-12-16 [address]ATTN: [place] [address]VJ: 12/16/2017 Secondary NOT GIVENUNK Tow Insurance:SELF PAY [facility] Number: Effective Repository Date:2017-12-16 12/16/2017 TELSA S Primary TELSA S Lia [id number] [place] Insurance:CARESOURCE SPEEGLEDOB: Community [address] Policy Number: [id number] Hospital [address]Mlv: NONE [id number] Repository (HP) Date:2017-12-16 [address]ATTN: [place] [address]MP: 12/16/2017 Secondary NOT GIVENUNK Lia Insurance:SELF PAY [facility] Number: Effective Repository Date:2017-12-16 12/16/2017 TELSA S Primary TELSA S Tow [id number] [place] Insurance:CARESOURCE SPEEGLEDOB: Community [address], [place] Policy Number: [id number] Hospital [address]Xzu: NONE [id number] Repository (HP) Date:2017-12-16 [address]ATTN: [place] [address]EU: 12/16/2017 Secondary NOT GIVENUNK Tow Insurance:SELF PAY [facility] Number: Effective Repository Date:2017-12-16 12/16/2017 MARIA T S Primary MARIA T S Lia [id number] [place] Insurance:CARESOURCE SPEEGLEDOB: Community [address], [place] Policy Number: [id number] Hospital [address]Tjz: . (HP) [id number] Repository Date:2017-12-16 [address]ATTN: [place] [address]HW: 12/16/2017 Secondary NOT GIVENUNK Lia Insurance:SELF PAY [facility] Number: Effective Repository Date:2017-12-16 12/16/2017 TELSA S Primary TELSA S Lia [id number] [place] Insurance:CARESOURCE SPEEGLEDOB: Community [address] Policy Number: [id number] Hospital [address]Hsv: NONE [id number] Repository (HP) Date:2017-12-16 [address]ATTN: [place] [address]RM: 12/16/2017 Secondary NOT GIVENUNK Tow Insurance:SELF PAY [facility] Hospital Number: Effective Repository Date:2017-12-16 12/16/2017 TELSA S Primary TELSA S Tow [id number] [place] Insurance:CARESOURCE SPEEGLEDOB: Community [address] Policy Number: [id number] Hospital [address]Diz: NONE [id number] Repository () Date:2017-12-16P [address]ATTN: [place] [address]QP: 12/16/2017 Secondary NOT GIVENUNK Lia Insurance:SELF PAY [facility] Number: Effective Repository Date:2017-12-16 12/16/2017 MARIA T S Primary MARIA T S Lia [id number] [place] Insurance:CARESOURCE SPEEGLEDOB: Community [address] [place] Policy Number: [id number] Hospital [address]Itf: . () [id number] Repository Date:2017-12-16 [address]ATTN: [place] [address]IN: 12/16/2017 Secondary NOT GIVENUNK Tow Insurance:SELF PAY [facility] Number: Effective Repository Date:2017-12-16 12/13/2017 Maria T S Primary Maria T S Tow [place]IA, Insurance:CARESOURCE SpeegleDOB: Community [place] [address]Nzl: NONE Policy Number: [id number] Hospital () [id number] Repository Date:2017-12-13P [address]ATTN: [place] [address]XB: 12/13/2017 Secondary NOT GIVENUNK Lia Insurance:SELF PAY [facility] Number: Effective Repository Date:2017-12-13 09/29/2017 Maria T S Primary Maria T S Lia [id number] [place] Insurance:CARESOURCE SpeegleDOB: Community [address] [id number], Policy Number: [id number] [address]Dun: NONE [id number] Repository (HP) Date:2017-09-28 [address]ATTN: [place] [address]AN: 09/29/2017 Secondary NOT GIVENUNK Lia Insurance:SELF PAY [facility] Number: Effective Repository Date:2017-09-29 09/29/2017 Maria T S Primary Maria T S Lia [id number] BEND Insurance:CARESOURCE SpeegleDOB: Community [address] [id number], Policy Number: [id number] [address]Nuw: NONE [id number] Repository (HP) Date:2017-09-28 [address]ATTN: [place] [address]XQ: 09/29/2017 Secondary NOT GIVENUNK Lia Insurance:SELF PAY [facility] Number: Effective Repository Date:2017-09-29 09/29/2017 Maria T S Primary Maria T S Tow [id number] BEND Insurance:CARESOURCE SpeegleDOB: Community [address] [id number], Policy Number: [id number] General Hospital [address]Nht: NONE [id number] Repository (HP) Date:2017-09-28 [address]ATTN: [place] [address]GL: 09/29/2017 Secondary NOT GIVENUNK Tow Insurance:SELF PAY [facility] Number: Effective Repository Date:2017-09-29 09/29/2017 MARIA T S Primary MARIA T S Lia [id number] Insurance:CARESOURCE SPEEGLEDOB: [facility] Policy Number: [id number] Hospital RDAPT [id number], [id number] [place]ository [place] [address]Yqa: [phone] Date:2017-09-28 O [phone] () [address]ATTN[place] [address]AS: 09/29/2017 Secondary NOT GIVENUNK Lia Insurance:SELF PAY [facility] Number: Effective Repository Date:2017-09-28 08/29/2017 Maria T Leon Primary Maria T Leon Lia [id number] [facility] Insurance:CARESOURCE SpeegleDOB: Community DRAPT [id number], Policy Number: [id number] General Hospital [address]Ymc: NONE [id number] Repository () Date:2017-08-29P [address]ATTN: [place] [address]IJ: 08/29/2017 Secondary NOT GIVENUNK Lia Insurance:SELF PAY [facility]: Effective Repository Date:2017-08-29 08/14/2017 Maria T S Primary Maria T Leon Lia [id number] [facility] Insurance:CARESOURCE SpeegleDOB: Community DRAPT [id number], Policy Number: [id number] General Hospital [address]Tbd: NONE [id number] Repository () Date:2017-08-14P [address]ATTN: [place] [address]FZ: 08/14/2017 Secondary NOT GIVENUNK Tow Insurance:SELF PAY [facility] Number: Effective Repository Date:2017-08-14 08/04/2017 MARIA T [facility] MARIA T Leon [facility] SPEEGLEDOB: Insurance:CARESOURCE SPEEGLEDOB: [facility] [id number] MEDICAIDPolicy [id number] Repository [facility] Number: [id number], [place] [id number] [id number], [place] [address]Las: [phone]) Date:2017-08-04 [id number]: () [id number] [phone] ()Tel: Name:FABIANOO Alfred [address] [place] [address] () [address]LM: 07/19/2017 [facility] SPEEGLEDOB: Insurance:CARESOURCE SPEEGLEDOB: Children's Policy Number: [id number] [facility] [id number] [facility] Repository [id number], [place] Date: [id number], [place] [address]Zwl: [phone] (HP) 07/14/2017 MARIA T MEENAKSHI Primary MARIA T Pleitez SPEEGLEDOB: Insurance:CARESOURCE SPEEGLEDOB: Children's Policy Number: [id number] [facility] [id number] [facility] Repository [id number], [place] Date: [id number], [place] [address]Aub: [phone] (HP) 07/10/2017 MARIA T MEENAKSHI Primary MARIA T Pleitez SPEEGLEDOB: Insurance:CARESOURCE SPEEGLEDOB: Children's Policy Number: [id number] [facility] [id number] Repository [id number], [place] Date: [id number], [place] [address]Owy: [phone] (HP) 07/08/2017 Maria T S Primary Maria T S Tow [id number] [facility] Insurance:CARESOURCE SpeegleDOB: Community DRAPT [id number], Policy Number: [id number] [facility] [place] [address]Qla: NONE [id number] Repository (HP) Date:2017-07-08 [address]ATTN: [place] [address]TQ: 07/08/2017 Secondary NOT GIVENUNK Lia Insurance:SELF PAY [facility] Number: Effective Repository Date:2017-07-08 07/07/2017 Maria T S Primary Maria T S Lia [id number] [facility] Insurance:CARESOURCE SpeegleDOB: Community DRAPT [id number], Policy Number: [id number] [facility] [place] [address]Hdz: NONE [id number] Repository (HP) Date:2017-07-07P [address]ATTN: [place] [address]YA: 07/07/2017 Secondary NOT GIVENUNK Tow Insurance:SELF PAY [facility] Number: Effective Repository Date:2017-07-07 05/22/2017 Maria T S Primary Maria T S Tow [id number] [place] Insurance:CARESOURCE SpeegleDOB: Community DRAPT [id number], Policy Number: [id number] General Hospital [address]Irp: NONE [id number] Repository (HP) Date:2017-05-22 [address]ATTN: [place] [address]VS: 05/22/2017 Secondary NOT GIVENUNK Lia Insurance:SELF PAY [facility] Number: Effective Repository Date:2017-05-22 05/11/2017 Maria T S Primary Maria T S Lia [id number] [place] Insurance:CARESOURCE SpeegleDOB: [place] [address] Policy Number: [id number] Hospital [address]Rul: [phone] [id number] Repository [phone] () Date:2017-03-28P [address]ATTN: [place] [address]YP: 05/11/2017 Secondary Maria T S Tow Insurance:MEDICAIDPo SpeegleDOB: [facility] Number: [id number] [facility] Effective Repository Date:2017-05-11 05/11/2017 Tertiary NOT GIVENUNK Lia Insurance:SELF PAY [facility] Number: Effective Repository Date:2017-05-11 05/05/2017 Maria T S Primary Maria T S Lia [id number] Insurance:CARESOURCE SpeegleDOB: Community [address], Policy Number: [id number] General Hospital [address]Pxy: [phone] [id number] Repository [phone] (HP) Date:2017-05-02P [address]ATTN: [place] [address]KB: 05/05/2017 Secondary NOT GIVENUNK Lia Insurance:SELF PAY [facility] Number: Effective Repository Date:2017-05-02 05/04/2017 Maria T S Primary Maria T S Tow SpeegleEVERY Insurance:CARESOURCE SpeegleDOB: Community WOMENS Policy [place]: [id number] [id number] Repository [address]Kwo: [phone]) Date:2017-01-11P O [phone] () [address]ATTN: [place] [address]IU: 05/04/2017 Secondary NOT GIVENUNK Lia Insurance:SELF PAY [facility] Number: Effective Repository Date:2017-02-22 04/14/2017 Maria T S Primary Maria T S Lia [id number] [place] Insurance:CARESOURCE SpeegleDOB: Community DRAPT [id number], Policy Number: [id number] General Hospital [address]Bkd: NONE [id number] Repository () Date:2017-04-14P [address]ATTN: [place] [address]BI: 04/14/2017 Secondary NOT GIVENUNK Tow Insurance:SELF PAY [facility] Number: Effective Repository Date:2017-04-14 04/13/2017 Maria T S Primary Maria T S Lia [id number] [place] Insurance:CARESOURCE SpeegleDOB: [place] [address] [place] Policy Number: [id number] [address]Laa: [phone] [id number] Repository [phone] () Date:2017-03-28P [address]ATTN: [place] [address]XB: 04/13/2017 Secondary Maria T S Lia Insurance:MEDICAIDPo SpeegleDOB: Community licy Number: [id number] Hospital Effective Repository Date:2017-04-13 04/13/2017 Tertiary NOT GIVENUNK Lia Insurance:SELF PAY [facility] Number: Effective Repository Date:2017-04-13
== END 2018-02-23 19:16 | disposition home or self-care (01) ==
PROVIDERS: Emergency Provider Emergency Medicine; Family Provider Family Medicine; PCP Family Medicine
DX: G43.909 Migraine, unspecified, not intractable, without status migrainosus (principal); M79.10 Myalgia, unspecified site; R10.9 Unspecified abdominal pain; R14.0 Abdominal distension (gaseous); R30.0 Dysuria; R68.83 Chills (without fever); R23.4 Changes in skin texture; F31.9 Bipolar disorder, unspecified; Z86.19 Personal history of other infectious and parasitic diseases; Z79.899 Other long term (current) drug therapy; Z72.0 Tobacco use
CPT/HCPCS: 36415; 70450; 74177; 80048; 80076; 80307; 81001; 84703; 85025; 87040; 87086; 96361; 96374; 96375; 99283; J7030; Q9967

== ENCOUNTER 2018-04-07 22:00 | Emergency (ER) | payer MEDICAID, SELFPAY ==
[2018-04-07 22:01] VITALS: BP 128/91; PULSE 104; RESP 14; TEMP 36.9; O2SAT 100; BMI 19.8
--- NOTE | 2018-04-07 22:49 | ED.RN ---
pt refused tylenol order. pt states she has nausea. dr. hernandez notified.
[2018-04-07] MEDS: Ondansetron ODT 4 MG Tablet PO (22:54)
--- NOTE | 2018-04-07 23:14 | ED.VISSUMM ---
- ER Visit Summary Date of Service: 04/07/18 Chief Complaint: Opiate overdose History of Present Illness: The patient is a 23 F presenting secondary to an opiate overdose. Patient reports that she was starting to feel sick from withdrawal so she took both oral and injection opiates as well as clonidine. Patient's mom states that she collapsed and she only responded after 8 mg of Narcan were administered. Patient denies being suicidal. Physical Examination: Vital signs are within normal limits, patient is afebrile. General: Patient is well-nourished well-developed and in no acute distress. Head: Normocephalic, atraumatic Eyes: Pupils equal round and reactive bilaterally, extra occular motion intact bialterally ENT: Moist mucous membranes Neck: Supple, no lymphadenopathy, no JVD, no meningismus CVS: Heart regular rate and rhythm, no murmurs, rubs or gallops, radial pulses 2+ bilaterally Resp: Respirations nondistressed, lung sounds clear bilaterally Abdomen: Soft, nontender, nondistended, no palpable masses, normal bowel sounds Back: Nontender Extremities: Nontender, atraumatic, active full range of motion, no peripheral edema Skin: warm, no rashes, no petechia Neuro: Alert and oriented x 4, CN 2-12 intact, no lateralizing neurological defecits Psyc: Normal affect Test Results: None indicated Emergency Department Course and Treatment: Patient presented secondary to an opiate overdose. I informed the patient that she needs to seek help otherwise she will kill herself from her addiction. She voiced understanding of this. Patient was observed for 90 minutes, did not have any desaturation on room air, and the patient was discharged in stable condition. Disposition: Discharge Impression: 1. Accidental opiate overdose This note was generated with [employer] dictation software. It may contain incorrect words, spelling, and punctuation that were not noted in review of the chart prior to signing ED Disposition - Plan for ED Patient: Disposition: Home or Assisted Living Chief Complaint: Overdose Diagnosis: Opiate overdose Instructions: ED Overdose Opiate Referrals: Skinny Mann MD [Primary Care Provider] -
[2018-04-07 23:35] VITALS: BP 104/78; PULSE 89; RESP 16; O2SAT 100
== END 2018-04-07 23:36 | disposition home or self-care (01) ==
PROVIDERS: Emergency Provider Emergency Medicine; Family Provider Family Medicine; PCP Family Medicine
DX: T40.601A Poisoning by unspecified narcotics, accidental (unintentional), initial encounter (principal); Y92.9 Unspecified place or not applicable
CPT/HCPCS: 99284

== ENCOUNTER → 2018-06-27 10:21 | Outpatient (CLI) | payer MEDICAID, SELFPAY ==
--- NOTE | 2018-06-27 10:27 | RAD_ITS ---
STUDY: X-RAY - LUMBAR SPINE REASON FOR EXAM: Female, 23 years old. Pain TECHNIQUE: 3 view(s) of the lumbar spine were obtained. COMPARISON: 2012 FINDINGS: Normal lumbar lordosis. There is no substantial scoliosis. There is a normal alignment of the vertebrae. Normal vertebral bodies and endplates. Normal disc space heights. The soft tissue structures are unremarkable. RAD/Lumbar Spine 2 or 3 Views IMPRESSION: Normal x-ray examination of the lumbar spine. Electronically Signed: Per Govea MD at 15:56 EDT , Service support ,
--- NOTE | 2018-06-27 10:33 | RAD_ITS ---
STUDY: X-RAY - CERVICAL SPINE REASON FOR EXAM: Female, 23 years old. pain. TECHNIQUE: 3 view(s) of the cervical spine were obtained. COMPARISON: None FINDINGS: Normal anterior atlantoaxial articulation. Normal odontoid process. Normal cervical lordosis. Normal vertebral bodies and endplates. Normal disc space heights. Normal visualized intervertebral neuroforamina. The soft tissue structures are unremarkable. RAD/Cerv Spine 2 or 3 Views IMPRESSION: Normal x-ray examination of the visualized cervical spine. Electronically Signed: René Winters MD at 8:38 EDT Tel , Service support ,
== END ==
PROVIDERS: Family Provider Physician Assistant; PCP Physician Assistant; Referring Provider Anesthesiology Pain Medicine; Visit Provider Anesthesiology Pain Medicine
DX: M54.2 Cervicalgia (principal); M54.9 Dorsalgia, unspecified
CPT/HCPCS: 72040; 72100

== ENCOUNTER 2018-07-22 14:12 | Emergency (ER) | payer MEDICAID, SELFPAY ==
[2018-07-22 14:14] VITALS: BP 110/80; PULSE 104; RESP 18; TEMP 36.4; O2SAT 97; BMI 21.4
[2018-07-22 14:50] LABS: Color, Urine Yellow (Yellow); Glucose, Dipstick Normal (Normal); Ketone-Dipstick 5 mg/dl (Negative); Leukocyte Esterase-Dipstick 500 /ul (Negative); Nitrite-Dipstick Negative (Negative); Occult Blood-Urine 10 /ul (Negative); Protein-Dipstick 30 mg/dl (Negative); Urine Bilirubin Dipstick Negative (Negative); Urine Clarity Cloudy (Clear); Urine Urobilinogen 1 mg/dl (Normal)
[2018-07-22 14:51] LABS: Internal QC Validated? YES +Cl - CLEAR BKGD
[2018-07-22 14:52] LABS: Pregnancy, Urine Negative Negative
[2018-07-22 14:56] LABS: Bacteria 1+ /hpf (None Seen); Mucous, Urine 2+ /hpf (<or=2+); Red Blood Cells-Urine 0-5 SEEN /hpf (0-5); Squamous Epithelial Cells - UA 5-10 SEEN /hpf (5-10); Trichomonas 0-5 SEEN /hpf (None Seen); White Blood Cells 10-25 SEEN /hpf (0-5)
--- NOTE | 2018-07-22 15:30 | RAD_ITS ---
STUDY: X-RAY CHEST REASON FOR EXAM: Female, 23 years old. Cough TECHNIQUE: Frontal and lateral views of the chest COMPARISON: 12/16/2017. FINDINGS: The lungs are clear. There are no pleural effusions. There is no pneumothorax. The heart is normal in size. The visualized osseous structures are within normal limits. RAD/Chest PA and Lateral IMPRESSION: No acute thoracic pathology. Electronically Signed: Shad Slade, at 16:33 EDT Tel , Service support ,
--- NOTE | 2018-07-22 16:43 | ED.DEP ---
ED Disposition - Plan for ED Patient: Instructions: ED UTI Cystitis Female Prescriptions: Nitrofurantoin Macrocrystals [Macrobid] 100 mg PO Q12 #14 capsule Referrals: Care Physician,No Primary [Primary Care Provider] - Dorian Davies MD [NON-STAFF] -
[2018-07-22] MEDS: Nitrofurantoin Macrocrystals 100 MG Capsule PO (16:52)
[2018-07-22 16:53] VITALS: BP 118/68; PULSE 76; RESP 16; O2SAT 98
--- NOTE | 2018-07-22 17:47 | ED.VISSUMM ---
- ER Visit Summary Date of Service: 07/22/18 Chief Complaint: Dysuria History of Present Illness: The patient is a 23 F presenting with dysuria. Patient states this has been ongoing for months. She states that she has been treated with several rounds of antibiotics. She has not had antibiotics in the last couple of months. She says her last courses of treatment were with Diflucan. She had antibiotics prior to that. She has been seeing [facility]. She is waiting to see a primary care physician. She complains of intermittent low back pain. She has had subjective fever at home. She denies abdominal pain, nausea, vomiting. Denies vaginal itching or discharge. Denies possibility of . She also complains of cough. She states this has been ongoing for quite awhile as well. Physical Examination: Vitals are stable. Patient is afebrile. Alert no acute distress. Nontoxic-appearing HEENT exam is unremarkable. Neck is supple. Lungs are clear and equal bilaterally. Heart is regular rate and rhythm. Abdomen is soft nontender nondistended. No guarding or rebound Back is nontender Extremities are unremarkable. Skin is warm and dry. No focal neurologic deficit. Remainder of exam is unremarkable. Emergency Department Course and Treatment: Chest x-ray shows no acute process. Urinalysis shows 10-25 white blood cells, 0-5 red blood cells, 5-10 epithelial cells, 1+ bacteria. hCG negative. Urine culture was sent. Patient is concerned because she has history of previous urosepsis. Her urine is contaminated therefore urine culture was sent. She was started on Macrobid due to multiple allergies. She is advised to follow-up with her primary care physician. Advised return ED if worsening complaints. Disposition: Discharge home Impression: UTI This note was generated with [employer] dictation software. It may contain incorrect words, spelling, and punctuation that were not noted in review of the chart prior to signing ED Disposition - Plan for ED Patient: Instructions: ED UTI Cystitis Female Prescriptions: Nitrofurantoin Macrocrystals [Macrobid] 100 mg PO Q12 #14 capsule Referrals: Marla Hwang MD [STAFF PHYSICIAN] - Dorian Davies MD [NON-STAFF] -
--- NOTE | 2018-07-22 17:51 | ED.DCSUM_ITS ---
- ER Visit Summary Date of Service: 07/22/18 Chief Complaint: Dysuria History of Present Illness: The patient is a 23 F presenting with dysuria. Patient states this has been ongoing for months. She states that she has been treated with several rounds of antibiotics. She has not had antibiotics in the last couple of months. She says her last courses of treatment were with Diflucan. She had antibiotics prior to that. She has been seeing [facility]. She is waiting to see a primary care physician. She complains of intermittent low back pain. She has had subjective fever at home. She denies abdominal pain, nausea, vomiting. Denies vaginal itching or discharge. Denies possibility of . She also complains of cough. She states this has been ongoing for quite awhile as well. Physical Examination: Vitals are stable. Patient is afebrile. Alert no acute distress. Nontoxic-appearing HEENT exam is unremarkable. Neck is supple. Lungs are clear and equal bilaterally. Heart is regular rate and rhythm. Abdomen is soft nontender nondistended. No guarding or rebound Back is nontender Extremities are unremarkable. Skin is warm and dry. No focal neurologic deficit. Remainder of exam is unremarkable. Emergency Department Course and Treatment: Chest x-ray shows no acute process. Urinalysis shows 10-25 white blood cells, 0-5 red blood cells, 5-10 epithelial cells, 1+ bacteria. hCG negative. Urine culture was sent. Patient is concerned because she has history of previous urosepsis. Her urine is contaminated therefore urine culture was sent. She was started on Macrobid due to multiple allergies. She is advised to follow-up with her primary care physician. Advised return ED if worsening complaints. Disposition: Discharge home Impression: UTI This note was generated with [employer] dictation software. It may contain incorrect words, spelling, and punctuation that were not noted in review of the chart prior to signing ED Disposition - Plan for ED Patient: Instructions: ED UTI Cystitis Female Prescriptions: Nitrofurantoin Macrocrystals [Macrobid] 100 mg PO Q12 #14 capsule Referrals: Marla Hwang MD [STAFF PHYSICIAN] - Dorian Davies MD [NON-STAFF] -
[2018-07-22 17:52] VITALS: BP 117/72; PULSE 68; RESP 16; O2SAT 98
--- NOTE | 2018-07-22 17:53 | ED.DEP ---
ED Disposition - Plan for ED Patient: Instructions: ED UTI Cystitis Female Prescriptions: Nitrofurantoin Macrocrystals [Macrobid] 100 mg PO Q12 #14 capsule Referrals: Dorian Davies MD [NON-STAFF] - Marla Hwang MD [STAFF PHYSICIAN] -
== END 2018-07-22 18:05 | disposition home or self-care (01) ==
PROVIDERS: Emergency Provider Emergency Medicine
DX: N39.0 Urinary tract infection, site not specified (principal); R05 Cough; M79.7 Fibromyalgia; Z79.899 Other long term (current) drug therapy; Z72.0 Tobacco use
CPT/HCPCS: 71046; 81001; 81025; 87086; 87088; 99283

== ENCOUNTER → 2018-07-31 | Outpatient (CLI) | payer MEDICAID, SELFPAY ==
[2018-07-22 14:14] VITALS: BMI 21.4
[2018-07-31 15:45] LABS: Color, Urine Yellow (Yellow); Glucose, Dipstick Normal (Normal); Ketone-Dipstick 5 mg/dl (Negative); Leukocyte Esterase-Dipstick 500 /ul (Negative); Nitrite-Dipstick Negative (Negative); Occult Blood-Urine 10 /ul (Negative); Protein-Dipstick 15 mg/dl (Negative); Urine Bilirubin Dipstick Negative (Negative); Urine Clarity Sl. Cloudy (Clear); Urine Urobilinogen Normal (Normal)
== END | disposition home or self-care (01) ==
PROVIDERS: Referring Provider Urology; Visit Provider Urology
DX: N39.0 Urinary tract infection, site not specified (principal)
CPT/HCPCS: 81002; 87086

== ENCOUNTER → 2018-08-01 | Outpatient (CLI) | payer MEDICAID, SELFPAY ==
[2018-07-22 14:14] VITALS: BMI 21.4
--- NOTE | 2018-08-01 16:31 | US_ITS ---
STUDY: RENAL ULTRASOUND - COMPLETE REASON FOR EXAM: Female, 23 years old. Recurring urinary tract infections TECHNIQUE: Ultrasound evaluation of the kidneys was performed with real-time and static piaz-scale imaging. COMPARISON: None. FINDINGS: RIGHT KIDNEY: Normal location of the right kidney, which is normal in size. The right kidney measures 10.2 x 4.5 x 4.5 cm. There is a normal cortex of the right kidney. The renal cortex measures 1.3 cm. There is no right renal mass or cyst. There are no right renal calculi. There is no right hydronephrosis. DISTAL RIGHT URETER: There is non-visualization of the distal right ureter. There is no demonstrated right ureterovesical junction calculus. There is a visualized right ureteral jet. LEFT KIDNEY: Normal location of the left kidney, which is normal in size. The left kidney measures 10.1 x 4.5 x 4.1 cm. There is a normal cortex of the left kidney. The renal cortex measures 1.2 cm. There is no left renal mass or cyst. There are no left renal calculi. There is no left hydronephrosis. DISTAL LEFT URETER: There is non-visualization of the distal left ureter. There is no demonstrated left ureterovesical junction calculus. There is a visualized left ureteral jet. BLADDER: The distended urinary bladder has a volume of 46 ml. The empty urinary bladder has a volume of 8 ml. There is a normal wall thickness of the distended urinary bladder. There is no demonstrated mass within the urinary bladder. There are no demonstrated bladder calculi. US/Kidney and Bladder IMPRESSION: Normal ultrasound of the kidneys and urinary bladder. Electronically Signed: Oumar Andrews MD at 4:10 EDT Tel , Service support ,
== END | disposition home or self-care (01) ==
LOC: US 16:21
PROVIDERS: Referring Provider Urology; Visit Provider Urology
DX: Z87.440 Personal history of urinary (tract) infections (principal)
CPT/HCPCS: 76770

== ENCOUNTER 2018-12-17 16:13 | Emergency (ER) | payer MEDICAID, SELFPAY ==
[2018-12-17 16:15] VITALS: BP 129/88; PULSE 88; RESP 18; TEMP 35.5; O2SAT 97; BMI 23.6
--- NOTE | 2018-12-17 16:39 | RAD_ITS ---
STUDY: X-RAY - THORACIC SPINE REASON FOR EXAM: Female, 23 years old. Injury. TECHNIQUE: 3 view(s) of the thoracic spine were obtained. COMPARISON: None. FINDINGS: Normal kyphosis of the thoracic spine. There is no substantial scoliosis. Normal thoracic vertebrae and endplates. Normal disc space heights. No fractures. No dislocations. The soft tissue structures are unremarkable. RAD/Thoracic Spine 3 Views IMPRESSION: Normal x-ray examination of the thoracic spine. Electronically Signed: Yared Chaudhary MD at 17:01 EDT , Service support ,
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
--- NOTE | 2018-12-17 17:25 | ED.RN ---
DISCHARGE INSTRUCTIONS GIVEN TO AND REVIEWED WITH PATIENT, PATIENT DENIES QUESTIONS OR CONCERNS AND VOICES UNDERSTANDING OF DISCHARGE INSTRUCTIONS. PT AMBULATES OUT OF ROOM WITHOUT DIFFICULTY.
== END 2018-12-17 17:25 | disposition home or self-care (01) ==
PROVIDERS: Emergency Provider Emergency Medicine; Family Provider Family Medicine; PCP Family Medicine
DX: S20.212A Contusion of left front wall of thorax, initial encounter (principal); S20.222A Contusion of left back wall of thorax, initial encounter; S50.312A Abrasion of left elbow, initial encounter; S50.311A Abrasion of right elbow, initial encounter; S80.211A Abrasion, right knee, initial encounter; Y08.89XA Assault by other specified means, initial encounter; Y93.9 Activity, unspecified; Y92.9 Unspecified place or not applicable; F17.200 Nicotine dependence, unspecified, uncomplicated
CPT/HCPCS: 71046; 72072; 99282

== ENCOUNTER 2019-01-10 15:26 | Emergency (ER) | payer MEDICAID, SELFPAY ==
[2019-01-10 15:27] VITALS: BP 132/91; PULSE 97; RESP 17; TEMP 36.9; O2SAT 100; BMI 24.0
--- NOTE | 2019-01-10 15:51 | ED.DCSUM_ITS ---
- ER Visit Summary Date of Service: 01/10/19 Chief Complaint: Fever History of Present Illness: The patient is a 23 F who presents with a fever that his been waxing and waning over the past week. Patient states her thermometer is broken at home and she has not been able to check her temperature. Patient s tates she has just felt warm. Patient admits to some blurred vision and bilateral eye pain. Patient also admits to some nausea and vomiting. Patient admits to some cough and some shortness of breath. Patient also admits to some dysuria. Patient states she is concerned because she has a history of sepsis from urinary tract infection. Patient states she is also been feeling lightheaded and fatigued over the past week. Patient states that today while she was at work she went outside and felt tingly all over and then passed out. Physical Examination: Vital signs are stable. Patient is afebrile here. Patient is in no acute distress. Tympanic membranes are clear bilaterally. Oral mucosa is pink and moist. Oropharynx is clear. Neck is supple. Trachea is midline. There is no JVD noted. Heart was regular rate and rhythm. Lungs are clear and equal bilaterally. Abdomen is soft. Bowel sounds are normal. There is mild lower abdominal tenderness. There is no rebound or guarding noted. Patient was able to sit up and lie flat without assistance without difficulty. Cranial nerves II through XII are intact. There are no focal motor or sensory deficits noted. Test Results: CBC, basic metabolic profile, urinalysis, hCG were obtained and were all within normal limits. Orthostatic vital signs were obtained and were normal. Emergency Department Course and Treatment: Patient was given IV fluids. Patient was feeling better on reevaluation. Patient was instructed to follow-up with her primary care physician in 5 to 7 days. Patient was instructed to drink plenty of fluids. Patient understood and was agreeable with the plan. All questions were answered. Disposition: Discharge home Impression: Viral syndrome This note was generated with [employer] dictation software. It may contain incorrect words, spelling, and punctuation that were not noted in review of the chart prior to signing ED Disposition - Plan for ED Patient: Disposition: Home or Assisted Living Diagnosis: Viral syndrome Instructions: VIRAL SYNDROME (Adult) Prescriptions: Ondansetron [Zofran Odt] 4 mg PO Q8H PRN PRN #10 tab PRN Reason: Nausea Prescription Printed Referrals: Antione Carney MD [Primary Care Provider] -
[2019-01-10 16:05] LABS: Absolute Lymphocyte Count 2.99 X10^3/uL (0.83-4.51); Basophil# 0.03 X10^3/uL; Basophil% 0.4 % (0-1); Eosinophil# 0.18 X10^3/uL; Eosinophils% 2.3 % (0-5); Hematocrit 46.4 % (37-47); Hemoglobin 15.5 g/dL (12.0-15.0); Lymphocyte # 2.99 X10^3/ul (4.0); Lymphocyte % 38.4 % (19-41); Mean Corp Hgb Conc 33.4 g/dL (32-36); Mean Corpuscular Hgb 30.4 pg (27.0-32.0); Mean Platelet Vol. 9.5 fl (6.2-12.0); Monocyte# 0.53 X10^3/uL; Monocyte% 6.8 % (0-10); NRBC Flagged by Analyzer 0 % (0-5); Neutrophil # 4.02 X10^3/uL (2.7-7.7); Neutrophil % 51.7 % (47-70); Platelet Count 247 K/mm3 (150-450); RBC Distribution Width CV 12.2 % (11.6-14.6); RBC Distribution Width SD 40.7 fl (35.1-43.9); White Blood Count 7.8 K/mm3 (4.4-11.0)
[2019-01-10 16:28] LABS: Anion Gap 9 (5-15); BUN 11 mg/dL (7-18); BUN/Creat Ratio 15.2 RATIO (10-20); Calcium,Total 8.7 mg/dL (8.5-10.1); Chloride 106 mmol/L (98-107); Creatinine, Serum 0.72 mg/dL (0.55-1.02); EST Glomerular Filtration Rate 104 mL/min (>60); Est Glom Filt Rate - Afr Amer 126 mL/min (>60); Estimated Creatinine Clearance 102.01 ml/min; Glucose 83 mg/dL (74-106); Potassium 3.6 mmol/L (3.5-5.1); Sodium Level 142 mmol/L (136-145)
[2019-01-10 16:29] VITALS: BP 115/80; BP 119/97; PULSE 81; PULSE 85
--- NOTE | 2019-01-10 16:35 | RAD_ITS ---
STUDY: X-RAY CHEST REASON FOR EXAM: Female, 23 years old. Fever, headache and nausea x1 week TECHNIQUE: PA and lateral views of the chest. COMPARISON: None. FINDINGS: The lungs are clear and expanded. There is no demonstrated pleural abnormality. Normal size heart. Normal mediastinum and marjorie. Normal visualized pulmonary arteries. Normal visualized aortic arch and descending thoracic aorta. Normal visualized thoracic spine. Normal visualized ribs, clavicles, and shoulders. There is no demonstrated abnormality of the visualized soft tissue structures of the upper abdomen. RAD/Chest PA and Lateral IMPRESSION: Normal x-ray examination of the chest. Electronically Signed: Chai John DO at 16:53 EDT Tel , Service support ,
[2019-01-10 16:46] LABS: Internal QC Validated? YES +Cl - CLEAR BKGD; Pregnancy, Serum, hCG Quali. NEGATIVE Negative
[2019-01-10 17:06] LABS: Mucous, Urine 0 SEEN /hpf (<or=2+); Red Blood Cells-Urine 0 SEEN /hpf (0-5); White Blood Cells 0 SEEN /hpf (0-5)
[2019-01-10 17:15] LABS: Color, Urine Yellow (Yellow); Glucose, Dipstick Normal (Normal); Ketone-Dipstick Negative (Negative); Leukocyte Esterase-Dipstick Negative /ul (Negative); Nitrite-Dipstick Negative (Negative); Occult Blood-Urine 10 /ul (Negative); Protein-Dipstick Negative (Negative); Specific Gravity, Urine 1.015 (1.002-1.030); Urine Bilirubin Dipstick Negative (Negative); Urine Clarity Clear (Clear); Urine Urobilinogen Normal (Normal); Urine pH 6.5 (5.0 - 8.0)
[2019-01-10 17:44] LABS: Bacteria RARE /hpf (None Seen); Squamous Epithelial Cells - UA 0-5 SEEN /hpf (5-10)
[2019-01-10 18:08] VITALS: RESP 16
[2019-01-10 19:37] VITALS: PULSE 74; RESP 16; O2SAT 97
== END 2019-01-10 19:38 | disposition home or self-care (01) ==
PROVIDERS: Emergency Provider Emergency Medicine; Family Provider Family Medicine; PCP Family Medicine
DX: B34.9 Viral infection, unspecified (principal); R55 Syncope and collapse; H57.13 Ocular pain, bilateral; R30.0 Dysuria; R05 Cough; R06.00 Dyspnea, unspecified; R53.83 Other fatigue; M54.2 Cervicalgia; M54.9 Dorsalgia, unspecified; R10.30 Lower abdominal pain, unspecified; R51 Headache; M79.7 Fibromyalgia; Z86.19 Personal history of other infectious and parasitic diseases; Z87.440 Personal history of urinary (tract) infections; Z79.899 Other long term (current) drug therapy; Z72.0 Tobacco use
CPT/HCPCS: 71046; 80048; 81001; 84703; 85025; 99284

== ENCOUNTER → 2019-01-28 11:26 | Outpatient (CLI) | payer MEDICAID, SELFPAY ==
[2019-01-11 13:31] VITALS: BMI 24.0
--- NOTE | 2019-01-28 11:29 | US_ITS ---
STUDY: ULTRASOUND OF THE FEMALE PELVIS - COMPLETE REASON FOR EXAM: Female, 24 years old. Pelvic pain and bloating. LMP: Unknown. TECHNIQUE: Transabdominal and Transvaginal TECHNICAL QUALITY: Adequate. COMPARISON: CT dated 02/23/2018. FINDINGS: The uterus is anteverted and is tilted to the left side of the pelvis. The uterus measures 5.6 x 3.8 x 2.1 cm. Normal uterine cervix. The endometrium measures 5.0 mm in thickness, and is hyperechoic. There is no demonstrated endometrial mass. There is no demonstrated myometrial mass. I.U.D. - The patient does not have an I.U.D. The right ovary is visualized. The right ovary measures 3.6 x 2.8 x 3.0 cm. There are multiple follicles of the right ovary without a dominant cyst. There is no visualized right adnexal mass or complex lesion. There is normal arterial and normal venous vascularity. The left ovary is visualized. The left ovary measures 2.5 x 2.2 x 1.2 cm. There are multiple follicles of the left ovary without a dominant cyst. There is no visualized left adnexal mass or complex lesion. There is normal arterial and normal venous vascularity. There is mild to moderate fluid in the cul-de-sac. The volume of the bladder was 100.7 ml. Polycystic ovary disease: No. US/Pelvic (Non ) IMPRESSION: Unremarkable female pelvis ultrasound. Electronically Signed: Ml Prieto MD at 5:36 EST , Service support ,
--- NOTE | 2019-01-28 11:50 | US_ITS ---
STUDY: ULTRASOUND OF THE FEMALE PELVIS - COMPLETE REASON FOR EXAM: Female, 24 years old. Pelvic pain and bloating. LMP: Unknown. TECHNIQUE: Transabdominal and Transvaginal TECHNICAL QUALITY: Adequate. COMPARISON: CT dated 02/23/2018. FINDINGS: The uterus is anteverted and is tilted to the left side of the pelvis. The uterus measures 5.6 x 3.8 x 2.1 cm. Normal uterine cervix. The endometrium measures 5.0 mm in thickness, and is hyperechoic. There is no demonstrated endometrial mass. There is no demonstrated myometrial mass. I.U.D. - The patient does not have an I.U.D. The right ovary is visualized. The right ovary measures 3.6 x 2.8 x 3.0 cm. There are multiple follicles of the right ovary without a dominant cyst. There is no visualized right adnexal mass or complex lesion. There is normal arterial and normal venous vascularity. The left ovary is visualized. The left ovary measures 2.5 x 2.2 x 1.2 cm. There are multiple follicles of the left ovary without a dominant cyst. There is no visualized left adnexal mass or complex lesion. There is normal arterial and normal venous vascularity. There is mild to moderate fluid in the cul-de-sac. The volume of the bladder was 100.7 ml. Polycystic ovary disease: No. US/Transvaginal Non- IMPRESSION: Unremarkable female pelvis ultrasound. Electronically Signed: Ml Prieto MD at 5:36 EST , Service support ,
== END ==
PROVIDERS: Referring Provider Urology; Visit Provider Urology
DX: R10.2 Pelvic and perineal pain (principal); N94.10 Unspecified dyspareunia; G89.4 Chronic pain syndrome; M54.2 Cervicalgia
CPT/HCPCS: 76830; 76856; 93976; 97161

== ENCOUNTER → 2019-02-01 16:04 | Outpatient (CLI) | payer MEDICAID, SELFPAY ==
[2019-01-11 13:31] VITALS: BMI 24.0
[2019-02-01 17:03] LABS: Hematocrit 43.8 % (37-47); Hemoglobin 14.6 g/dL (12.0-15.0); Mean Corp Hgb Conc 33.3 g/dL (32-36); Mean Corpuscular Hgb 29.6 pg (27.0-32.0); Mean Corpuscular Volume 88.7 fL (81-99); Mean Platelet Vol. 9.8 fl (6.2-12.0); Platelet Count 313 K/mm3 (150-450); RBC Distribution Width CV 12.4 % (11.6-14.6); RBC Distribution Width SD 40.2 fl (35.1-43.9); Red Blood Count 4.94 M/mm3 (4.2-5.4); White Blood Count 10.3 K/mm3 (4.4-11.0)
[2019-02-01 17:43] LABS: AST(SGOT) 39 U/L (15-37); Alanine Aminotransfer ALT/SGPT 66 U/L (13-56); Albumin, Serum 3.6 g/dL (3.2-5.0); Alkaline Phosphatase 70 U/L (45-117); Anion Gap 7 (5-15); BUN 8 mg/dL (7-18); Calcium,Total 8.9 mg/dL (8.5-10.1); Chloride 104 mmol/L (98-107); Creatinine, Serum 0.72 mg/dL (0.55-1.02); EST Glomerular Filtration Rate 103 mL/min (>60); Est Glom Filt Rate - Afr Amer 125 mL/min (>60); Globulin 3.6 g/dL (2.2-4.2); Glucose 69 mg/dL (74-106); Potassium 3.8 mmol/L (3.5-5.1); Protein, Total 7.2 g/dL (6.4-8.2); Sodium Level 138 mmol/L (136-145); Thyroid Stim Hormone (TSH) 0.77 uIU/mL (0.358-3.74); Vitamin B12 398 pg/mL (211-911); Vitamin D,25 Hydroxy 43.7 ng/mL (29.95-100.01)
== END ==
PROVIDERS: Referring Provider Family Medicine; Visit Provider Family Medicine
DX: R53.82 Chronic fatigue, unspecified (principal); E55.9 Vitamin D deficiency, unspecified
CPT/HCPCS: 36415; 80053; 82306; 82607; 84443; 85027

== ENCOUNTER 2019-02-22 11:30 | Outpatient (RCR) | payer MEDICAID, SELFPAY ==
[2019-01-11 13:31] VITALS: BMI 24.0
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
== END 2019-02-22 19:00 | disposition home or self-care (01) ==
LOC: PT 11:30
DX: G89.4 Chronic pain syndrome (principal); M54.2 Cervicalgia
CPT/HCPCS: 97113; 97161; 97164

== ENCOUNTER → 2019-02-28 09:19 | Outpatient (CLI) | payer MEDICAID, SELFPAY ==
[2019-02-14 10:01] VITALS: BMI 24.0
[2019-02-26 13:39] VITALS: BMI 25.2
--- NOTE | 2019-02-28 09:22 | BI_ITS ---
MAMMOGRAPHY - BILATERAL DIAGNOSTIC REASON FOR EXAM: Female, 24 years old. Bilateral breast pain worse along the lateral aspect of the left breast. PERTINENT HISTORY: Non-contributory. TECHNIQUE: Digital bilateral breast jasmin (3D mammographic acquisition) in the CC and MLO projections. 2-D mediolateral oblique (MLO) and craniocaudad (CC) views of both breasts were obtained. CAD: Full Field Digital Mammography with Computer Added Detection was performed. COMPARISON: None. Baseline examination. FINDINGS: Breast Composition: The breasts are extremely dense, which lowers the sensitivity of mammography. There are no dominant masses or suspicious calcifications. Small benign-appearing bilateral axillary lymph nodes. Metallic piercing is seen in the region of the cleavage. No other significant abnormalities are identified. BI/DIAG MAMM W/CAD, BILAT IMPRESSION: Negative diagnostic mammogram. With the patient''s history of left lateral breast pain, correlation with ultrasound is recommended. ASSESSMENT CATEGORY: BIRADS Category 0: Incomplete. Need additional imaging evaluation. A letter regarding these results will be sent to the patient by the facility within 30 days. Approximately 10% of breast cancers are not detected by mammography. A normal mammogram should not delay biopsy of a clinically suspicious abnormality. Electronically Signed: Jonathan Galvan, at 12:31 EST , Service support ,
--- NOTE | 2019-02-28 09:22 | US_ITS ---
STUDY: ULTRASOUND BREAST - LEFT REASON FOR EXAM: Female, 24 years old. Pain in the left breast. TECHNIQUE: Axial and longitudinal images of the LEFT breast were performed with a high resolution ultrasound transducer. # OF IMAGES: 59 COMPARISON: Comparison is made with prior mammogram done earlier in the day. FINDINGS: LEFT Breast: The entire left breast was examined by ultrasound. There is a 4 mm x 4 mm x 2 mm cyst at the 2:00 position of the breast at 2 cm from nipple. A 4 mm x 3 mm x 2 mm cyst is also seen at the 2:00 position of the breast at 3 cm from the nipple. US/Breast Complete Unilateral IMPRESSION: 2 small cysts are seen at the 2:00 radiant. ASSESSMENT CATEGORY: BIRADS Category 2: Benign. A letter regarding these results will be sent to the patient by the facility within 30 days. Electronically Signed: Jonathan Galvan, at 10:48 EST , Service support ,
== END ==
PROVIDERS: Referring Provider Nurse Practitioner Family; Visit Provider Nurse Practitioner Family
DX: N64.4 Mastodynia (principal)
CPT/HCPCS: 76641; 77062; 77066; G0279

== ENCOUNTER 2019-03-02 18:17 | Emergency (ER) | payer MEDICAID, SELFPAY ==
[2019-02-26 13:39] VITALS: BMI 25.2
[2019-03-02 18:17] VITALS: BP 127/82; PULSE 99; RESP 16; TEMP 36.6; O2SAT 96; BMI 25.2
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
[2019-03-02 18:34] VITALS: RESP 18
--- NOTE | 2019-03-02 18:35 | ED.DCSUM_ITS ---
History of Present Illness Chief Complaint: Fall Detail of Chief Complaint: Back and abdominal pain Informant: Patient Onset: Today Context: Sudden Onset Current Severity: Severe Maximum Severity: Severe Narrative: Patient presents after a fall at work. She presents for evaluation at 6:30 PM and states that she fell sometime between 3 and 4 PM. 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 She states she walked into the dish room and fell on a wet floor, landing on her buttocks. She states she somehow struck the front of her right lower leg. She is complaining of pain throughout her back and abdomen. She states she was forced to stay and finish her shift before going to the nurse. She states that the nurse did collect a urine sample for drug screen and patient noted hematuria. - Past Medical History (1) Fibromyalgia Status: Chronic (2) Seizures Status: Chronic (3) Neuropathy Status: Chronic (4) Arthritis Status: Chronic (5) Borderline personality disorder Status: Chronic (6) Depression Status: Chronic (7) Bipolar disorder Status: Chronic Past Medical History - Allergies and Home Meds Allergies/Adverse Reactions: Allergies nickel [Nickel] Allergy (Verified 03/02/19 18:18) Unknown Penicillins Allergy (Verified 03/02/19 18:18) Shortness of breath doxycycline Adverse Reaction (Verified 03/02/19 18:18) Vomiting metronidazole [From Flagyl] Adverse Reaction (Verified 03/02/19 18:18) Upset Stomach sulfamethoxazole [From Bactrim] Adverse Reaction (Verified 03/02/19 18:18) Upset Stomach trimethoprim [From Bactrim] Adverse Reaction (Verified 03/02/19 18:18) Upset Stomach Primary Care Physician: [facility] [GROUP OF PHYSICIANS] - 3-5 Days Surgical History: noncontributory Smoking Status: Current every day smoker - Family History Maternal Family History: Family History (Last Reviewed 02/26/19 @ 14:09 by Chayito Andrea) Father Diabetes Grandfather Diabetes Grandmother Diabetes Other Alcoholism Allergies Anxiety Anxiety and depression Arthritis Asthma defect Bowel disease CVA (cerebral vascular accident) Heart disease High cholesterol Hypertension Kidney disease Liver disease Mental disorder Myocardial infarction Psychiatric care Family History: Reports: - - Drug abuse Paternal Family History: Family History (Last Reviewed 02/26/19 @ 14:09 by Chayito Andrea) Father Diabetes Grandfather Diabetes Grandmother Diabetes Other Alcoholism Allergies Anxiety Anxiety and depression Arthritis Asthma defect Bowel disease CVA (cerebral vascular accident) Heart disease High cholesterol Hypertension Kidney disease Liver disease Mental disorder Myocardial infarction Psychiatric care Family History: Reports: No pertinent history Review of Systems General: Denies: Chills, Fever Eyes: Denies: Visual changes - bilaterally ENT: Denies: Bilateral ear pain Cardiovascular: Denies: Chest pain Respiratory: Denies: Dyspnea, Cough Gastrointestinal: Reports: Abdominal pain. Denies: Vomiting, Diarrhea Genitourinary: Reports: Hematuria Musculoskeletal: Reports: Back pain, Extremity Pain Skin: Denies: Rash Neurological: Denies: Headache Allergy: Denies: Uticaria Physical Exam Vital Signs/Narrative: Vital Signs Temp Pulse Resp BP Pulse Ox 03/02/19 18:17 97.9 F 99 16 127/82 H 96 Inital Vital Signs reviewed: Yes General: Well nourished, Well developed Head: Normocephalic ENT: Moist mucous membranes Neck: Supple Cardiovascular: Tachycardia Respiratory: No distress, CTA bilaterally Abdomen: Soft, Tender - Mild diffuse tenderness palpation.. Negative for: Guarding, Rebound tenderness Back: - - Tenderness throughout the lumbar paraspinal region. Extremities: Tenderness - Mild tenderness over the anterior right lower leg. Full range of motion. Skin: Normal color Neurological: Alert, Oriented x3 Psychological: Tearful Diagnostic/Tx/Re-eval Impressions Abdomen/Pelvis CT 03/02/19 18:33 IMPRESSION: No acute abdominal or pelvic abnormality. Normal lumbar spine, pelvis, hips, sacrum and coccyx. Negative for soft tissue hematoma. Electronically Signed: Maricruz Lnadis MD at 20:07 EST , Service support , 03/02/19 18:33 Abdomen/Pelvis W IV Cont ONLY [CT] Stat Laboratory Results 03/02/19 03/02/19 03/02/19 19:10 19:10 19:10 WBC 9.5 RBC 4.27 Hgb 12.9 Hct 37.7 MCV 88.3 MCH 30.2 MCHC 34.2 RDW Std Deviation 39.9 RDW Coeff of [place] 12.4 Plt Count 290 MPV 9.6 Immature Gran % (Auto) 0.300 Neut % (Auto) 62.2 Lymph % (Auto) 28.6 [place] % (Auto) 7.2 Eos % (Auto) 1.2 Baso % (Auto) 0.5 Absolute Neuts (auto) 5.9 Absolute Lymphs (auto) 2.71 Nucleated RBC % 0 Sodium 139 Potassium 4.0 Chloride 110 H Carbon Dioxide 22.0 Anion Gap 7 BUN 25 H Creatinine 0.81 Estim Creat Clear Calc 94.04 Est GFR (MDRD) Af Amer 109 Est GFR (MDRD) Non-Af 90 BUN/Creatinine Ratio 30.8 H Glucose 95 Calcium 8.9 Serum , Qual NEGATIVE Urine Color Urine Clarity Urine pH Ur Specific [place] Urine Protein Urine Glucose (UA) Urine Ketones Urine Occult Blood Urine Nitrite Urine Bilirubin Urine Urobilinogen Ur Leukocyte Esterase Urine RBC Urine WBC Ur Squamous Epith Cells Urine Bacteria Urine Mucus 03/02/19 20:30 WBC RBC Hgb Hct MCV MCH MCHC RDW Std Deviation RDW Coeff of [place] Plt Count MPV Immature Gran % (Auto) Neut % (Auto) Lymph % (Auto) [place] % (Auto) Eos % (Auto) Baso % (Auto) Absolute Neuts (auto) Absolute Lymphs (auto) Nucleated RBC % Sodium Potassium Chloride Carbon Dioxide Anion Gap BUN Creatinine Estim Creat Clear Calc Est GFR (MDRD) Af Amer Est GFR (MDRD) Non-Af BUN/Creatinine Ratio Glucose Calcium Serum , Qual Urine Color Yellow Urine Clarity Sl. Cloudy Urine pH 6.0 Ur Specific [place] 1.015 Urine Protein Negative Urine Glucose (UA) Normal Urine Ketones Negative Urine Occult Blood Negative Urine Nitrite Negative Urine Bilirubin Negative Urine Urobilinogen Normal Ur Leukocyte Esterase Negative Urine RBC 0 SEEN Urine WBC 0 SEEN Ur Squamous Epith Cells 0-5 SEEN Urine Bacteria 0 SEEN Urine Mucus 0 SEEN - Medical Decision Making Patient was initially ordered morphine and Zofran but did tell nursing staff that she is currently on Suboxone. This was canceled and patient was given a dose of Toradol. Because the patient reports falling directly on her buttocks and having severe back pain with blood in her urine a CT was obtained. This reveals no acute abnormalities. Blood counts are normal and there is no blood in her urine on urinalysis here. Patient will be discharged to take anti- inflammatories or Tylenol. ED Disposition - Plan for ED Patient: Disposition: Home or Assisted Living Diagnosis: Fall, Back strain Instructions: FALL, Mechanical Referrals: [facility] [GROUP OF PHYSICIANS] - 3-5 Days
[2019-03-02] MEDS: 0.9% Normal Saline 1,000 ML 150 ML IV (19:13)
[2019-03-02 19:19] LABS: Absolute Lymphocyte Count 2.71 X10^3/uL (0.83-4.51); Absolute Neutrophil Count 5.9 X10^3/uL (2.0-7.7); Basophil# 0.05 X10^3/uL; Basophil% 0.5 % (0-1); Eosinophil# 0.11 X10^3/uL; Eosinophils% 1.2 % (0-5); Hematocrit 37.7 % (37-47); Hemoglobin 12.9 g/dL (12.0-15.0); Lymphocyte # 2.71 X10^3/ul (4.0); Lymphocyte % 28.6 % (19-41); Mean Corp Hgb Conc 34.2 g/dL (32-36); Mean Corpuscular Hgb 30.2 pg (27.0-32.0); Mean Corpuscular Volume 88.3 fL (81-99); Mean Platelet Vol. 9.6 fl (6.2-12.0); Monocyte# 0.68 X10^3/uL; Monocyte% 7.2 % (0-10); NRBC Flagged by Analyzer 0 % (0-5); Neutrophil % 62.2 % (47-70); Platelet Count 290 K/mm3 (150-450); RBC Distribution Width CV 12.4 % (11.6-14.6); RBC Distribution Width SD 39.9 fl (35.1-43.9); Red Blood Count 4.27 M/mm3 (4.2-5.4); White Blood Count 9.5 K/mm3 (4.4-11.0)
[2019-03-02 19:31] LABS: Internal QC Validated? YES +Cl - CLEAR BKGD; Pregnancy, Serum, hCG Quali. NEGATIVE Negative
[2019-03-02 19:35] LABS: Anion Gap 7 (5-15); BUN 25 mg/dL (7-18); BUN/Creat Ratio 30.8 RATIO (10-20); Calcium,Total 8.9 mg/dL (8.5-10.1); Chloride 110 mmol/L (98-107); Creatinine, Serum 0.81 mg/dL (0.55-1.02); EST Glomerular Filtration Rate 90 mL/min (>60); Est Glom Filt Rate - Afr Amer 109 mL/min (>60); Estimated Creatinine Clearance 94.04 ml/min; Glucose 95 mg/dL (74-106); Sodium Level 139 mmol/L (136-145)
[2019-03-02 20:37] LABS: Bacteria 0 SEEN /hpf (None Seen); Mucous, Urine 0 SEEN /hpf (<or=2+); Red Blood Cells-Urine 0 SEEN /hpf (0-5); White Blood Cells 0 SEEN /hpf (0-5)
[2019-03-02] MEDS: Ketorolac 30 MG/ML Syringe IV (20:41)
[2019-03-02 20:44] VITALS: BP 148/98; PULSE 87; RESP 18; O2SAT 97
[2019-03-02 20:47] LABS: Color, Urine Yellow (Yellow); Glucose, Dipstick Normal (Normal); Ketone-Dipstick Negative (Negative); Leukocyte Esterase-Dipstick Negative /ul (Negative); Nitrite-Dipstick Negative (Negative); Occult Blood-Urine Negative /ul (Negative); Protein-Dipstick Negative (Negative); Specific Gravity, Urine 1.015 (1.002-1.030); Urine Bilirubin Dipstick Negative (Negative); Urine Clarity Sl. Cloudy (Clear); Urine Urobilinogen Normal (Normal)
[2019-03-02 20:48] LABS: Squamous Epithelial Cells - UA 0-5 SEEN /hpf (5-10)
== END 2019-03-02 21:17 | disposition home or self-care (01) ==
PROVIDERS: Emergency Provider Emergency Medicine
DX: S39.012A Strain of muscle, fascia and tendon of lower back, initial encounter (principal); R31.9 Hematuria, unspecified; W01.0XXA Fall on same level from slipping, tripping and stumbling without subsequent striking against object, initial encounter; Y93.01 Activity, walking, marching and hiking; Y92.9 Unspecified place or not applicable; M79.7 Fibromyalgia; G40.909 Epilepsy, unspecified, not intractable, without status epilepticus; G62.9 Polyneuropathy, unspecified; M19.90 Unspecified osteoarthritis, unspecified site; F60.3 Borderline personality disorder; F31.9 Bipolar disorder, unspecified; Z79.899 Other long term (current) drug therapy; F17.200 Nicotine dependence, unspecified, uncomplicated
CPT/HCPCS: 74177; 80048; 81001; 84703; 85025; 96361; 96374; 99283; J7030; Q9967; A4216

== ENCOUNTER → 2019-03-04 10:59 | Outpatient (CLI) | payer MEDICAID, SELFPAY ==
[2019-03-02 18:17] VITALS: BMI 25.2
--- NOTE | 2019-03-04 10:59 | RAD_ITS ---
STUDY: X-RAY - RIGHT KNEE REASON FOR EXAM: Female, 24 years old. RECENT FALL, PAIN TECHNIQUE: 4 view(s) of the knee. COMPARISON: None. FINDINGS: Normal visualized distal femur. Normal visualized proximal tibia and fibula. Normal proximal tibiofibular articulation. There is no demonstrated fracture. Normal medial femorotibial compartment. Normal lateral femorotibial compartment. Normal patellofemoral articulation. There is no demonstrated joint effusion. The soft tissue structures are unremarkable. RAD/Knee 4 or More Views IMPRESSION: Normal x-ray examination of the knee. Electronically Signed: Ml Prieto MD at 1:38 EST , Service support ,
--- NOTE | 2019-03-04 10:59 | RAD_ITS ---
STUDY: X-RAY - LUMBAR SPINE REASON FOR EXAM: Female, 24 years old. RECENT FALL, PAIN TECHNIQUE: 3 view(s) of the lumbar spine were obtained. COMPARISON: None FINDINGS: Normal lumbar lordosis. There is no substantial scoliosis. There is a normal alignment of the vertebrae. Normal vertebral bodies and endplates. Normal disc space heights. There is no demonstrated fracture. The soft tissue structures are unremarkable. RAD/Lumbar Spine 2 or 3 Views IMPRESSION: Normal x-ray examination of the lumbar spine. Electronically Signed: Ml Prieto MD at 1:41 EST , Service support ,
--- NOTE | 2019-03-04 10:59 | RAD_ITS ---
STUDY: X-RAY CHEST REASON FOR EXAM: Female, 24 years old. RECENT FALL, PAIN ANTERIOR RADIATES INTO BILAT RIBS. PT HAS A DERMAL PIERCING WHICH COULDN''T BE REMOVED FOR XRAYS TECHNIQUE: PA and lateral views of the chest. COMPARISON: 01/10/2019. FINDINGS: The lungs are clear and expanded. There is no demonstrated pleural abnormality. Normal size heart. Normal mediastinum and marjorie. Normal visualized pulmonary arteries. Normal visualized aortic arch and descending thoracic aorta. Normal visualized thoracic spine. Normal visualized ribs, clavicles, and shoulders. There is no demonstrated abnormality of the visualized soft tissue structures of the upper abdomen. RAD/Chest PA and Lateral IMPRESSION: Normal x-ray examination of the chest. Electronically Signed: Ml Prieto MD at 0:58 EST , Service support ,
== END ==
PROVIDERS: Referring Provider Physician Assistant; Visit Provider Physician Assistant
DX: M54.5 Low back pain (principal); M25.561 Pain in right knee; R07.9 Chest pain, unspecified
CPT/HCPCS: 71046; 72100; 73564

== ENCOUNTER → 2019-03-19 14:36 | Outpatient (CLI) | payer OTHER, MEDICAID, SELFPAY ==
[2019-03-19 13:53] VITALS: BMI 25.2
--- NOTE | 2019-03-19 14:37 | RAD_ITS ---
STUDY: X-RAY - LUMBAR SPINE REASON FOR EXAM: Female, 24 years old. Low back pain. TECHNIQUE: 4 view(s) of the lumbar spine including lateral flexion and extension views were obtained. COMPARISON: March 04, 2019 FINDINGS: Normal lumbar lordosis. There is no substantial scoliosis. There is a normal alignment of the vertebrae. Limited flexion and extension with no abnormal motion. Normal vertebral bodies and endplates. Normal disc space heights. The soft tissue structures are unremarkable. RAD/Lumbar Spine 2 or 3 Views IMPRESSION: Limited flexion and extension with no abnormal motion. Otherwise normal lumbar spine. Electronically Signed: Feliz Joseph MD at 14:19 EST , Service support ,
== END ==
PROVIDERS: PCP Internal Medicine; Referring Provider Orthopaedic Surgery; Visit Provider Orthopaedic Surgery
DX: S39.012A Strain of muscle, fascia and tendon of lower back, initial encounter (principal); X58.XXXA Exposure to other specified factors, initial encounter; Y93.9 Activity, unspecified; Y92.9 Unspecified place or not applicable; Y99.9 Unspecified external cause status
CPT/HCPCS: 72100

== ENCOUNTER → 2019-04-10 10:03 | Outpatient (CLI) | payer MEDICAID, SELFPAY ==
[2019-01-11 13:31] VITALS: BMI 24.0
[2019-03-29 08:37] VITALS: BMI 25.2
--- NOTE | 2019-04-10 13:03 | NEURO ---
NCS and/or EMG Patient Report Ordering Doctor: Gilmer Lee DATE OF SERVICE: 04/10/19 Maria T Dallas is a 24-year-old female presents for electrodiagnostic testing of the upper limbs. She reports numbness and tingling in both hands. She reports neck pain. Electrodiagnostic findings: Median motor nerve demonstrates normal distal latency, amplitude and conduction velocity bilaterally. Normal ulnar motor response bilaterally. Normal median ulnar F waves. Sensory responses are within normal limits. On needle EMG, all muscles tested in the upper limb showed no evidence of denervation with normal motor unit action potentials. Electrodiagnostic impression: This is a normal electrodiagnostic study of the upper limbs. There is no electrodiagnostic evidence for peripheral neuropathy or cervical radiculopathy. If there are any further questions, please do not hesitate to contact me.
== END ==
PROVIDERS: Family Provider Family Medicine; Referring Provider Physician Assistant; Visit Provider Physician Assistant
DX: M54.12 Radiculopathy, cervical region (principal)
CPT/HCPCS: 95886; 95912

== ENCOUNTER 2019-04-24 13:00 | Outpatient (RCR) | payer MEDICAID, SELFPAY ==
[2019-03-29 08:37] VITALS: BMI 25.2
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
--- NOTE | 2019-04-25 10:25 | HP.PT.NRP ---
HP - Discharge Summary (1) - Patient Information GINNY WYNNE was seen in my office for initial evaluation on 04/18/19. The following Plan of Care was established for this patient: Initial Frequency: 2x /Week Initial Duration: 4-6 Weeks - Anticipated Interventions Patient/Client Instruction: Educate patient on: Condition, Plan of Care For the Purpose of:: To decrease pain, To improve muscle performance and motor function, To increase tolerance to activity/condition/position, To improve ability of physical actions for home/community/work/leisure Therapeutic Exercise to Include: Strength training, Flexibilty training For the Purpose of:: To decrease pain, To improve muscle performance and motor function, To increase tolerance to activity/condition/position Manual Therapy Techniques to Include: Soft tissue mobilization For the Purpose of:: To decrease pain, To improve muscle performance and motor function, To increase tolerance to activity/condition/position This patient was last seen in our office 04/24/19. Pertinent comments regarding their Physical therapy will appear below: Pt seen eval and one treatment. she has now stated that she does not wish to continue her treatment here. She cancelled all visits adn I will discontinue her from my care. At this point I will be discontinuing this patient from physical therapy. I would be happy to see this patient again in the future if found appropriate by the physician. Thank you! Cody Dee, DPT, OCS, CSCS
== END 2019-04-24 19:00 | disposition home or self-care (01) ==
LOC: PT 13:00
PROVIDERS: Visit Provider Nurse Practitioner Family
DX: M54.2 Cervicalgia (principal); M54.12 Radiculopathy, cervical region; M25.519 Pain in unspecified shoulder
CPT/HCPCS: 97110; 97140; 97162

== ENCOUNTER → 2019-05-17 15:19 | Outpatient (CLI) | payer MEDICAID, SELFPAY ==
[2019-04-30 09:24] VITALS: BMI 25.2
== END ==
PROVIDERS: Referring Provider Urology; Visit Provider Urology
DX: R30.0 Dysuria (principal)
CPT/HCPCS: 87086

== ENCOUNTER 2019-09-18 14:22 | Emergency (ER) | payer MEDICAID, SELFPAY ==
[2019-07-10 13:53] VITALS: BMI 25.2
[2019-09-18 14:24] VITALS: BP 118/79; PULSE 82; RESP 16; TEMP 36.7; O2SAT 96; BMI 29.5
--- NOTE | 2019-09-18 15:03 | ED.RN ---
pt walked out of room and stated that she couldnt be here
--- NOTE | 2019-09-18 17:18 | ED.VISSUMM ---
- ER Visit Summary Date of Service: 09/18/19 Chief Complaint: Dysuria and urinary frequency History of Present Illness: The patient is a 24 F who presents with dysuria and urinary frequency that has been constant for the past 1 to 2 months. Patient states she has some aching in her low back. Patient states this is worse when she sits or lays flat. Patient admits to subjective fevers and chills. Patient also admits to a sore throat. Patient admits to some nausea and vomiting. Patient states the pain radiates into her low back. Patient states she is having difficulty sitting on her tailbone due to the pain. Physical Examination: Vital signs are stable. Patient is afebrile. Patient is in no acute distress. Oral mucosa is pink and moist. Neck is supple. Trachea is midline. There is no JVD. Heart was regular rate and rhythm. Lungs are clear and equal bilaterally. Abdomen is soft. Bowel sounds are normal. There is some mild suprapubic tenderness. There is no rebound or guarding noted. Extremities are intact. There is no calf tenderness or edema. Cranial nerves II through XII are intact. There are no focal motor or sensory deficits noted. Emergency Department Course and Treatment: Labs were ordered. Patient did not want to have lab testing done. Patient left prior to completing treatment. Patient did not sign AGAINST MEDICAL ADVICE. Disposition: Eloped Impression: 1. Dysuria This note was generated with [employer] dictation software. It may contain incorrect words, spelling, and punctuation that were not noted in review of the chart prior to signing ED Disposition - Plan for ED Patient: Disposition: Home or Assisted Living Diagnosis: Dysuria Referrals: Care Physician,No Primary [Primary Care Provider] -
== END 2019-09-18 15:36 | disposition home or self-care (01) ==
LOC: ED 15:33
PROVIDERS: Emergency Provider Emergency Medicine
DX: R30.0 Dysuria (principal); R35.0 Frequency of micturition; J02.9 Acute pharyngitis, unspecified; R11.2 Nausea with vomiting, unspecified; R05 Cough; R51 Headache; Z72.0 Tobacco use
CPT/HCPCS: 99281

== ENCOUNTER → 2019-10-08 16:35 | Outpatient (CLI) | payer MEDICAID, SELFPAY ==
[2019-09-18 14:24] VITALS: BMI 29.5
--- NOTE | 2019-10-08 17:06 | US_ITS ---
STUDY: RENAL ULTRASOUND - COMPLETE REASON FOR EXAM: Female, 24 years old. FLANK PAIN,PROTEINURIA TECHNIQUE: Ultrasound evaluation of the kidneys was performed with real-time and static paiz-scale imaging. COMPARISON: CT abdomen and pelvis 03/02/2019 and renal ultrasound 08/01/2018 FINDINGS: RIGHT KIDNEY: Normal location of the right kidney, which is normal in size. The right kidney measures 9.5 cm. There is a normal cortex of the right kidney. The renal cortex measures 1.6 cm. There is no right renal mass or cyst. There are no right renal calculi. There is no right hydronephrosis. DISTAL RIGHT URETER: There is non-visualization of the distal right ureter. There is no demonstrated right ureterovesical junction calculus. There is a visualized right ureteral jet. LEFT KIDNEY: Normal location of the left kidney, which is normal in size. The left kidney measures 10.6 cm. There is a normal cortex of the left kidney. The renal cortex measures 1.6 cm. There is no left renal mass or cyst. There are no left renal calculi. There is no left hydronephrosis. DISTAL LEFT URETER: There is non-visualization of the distal left ureter. There is no demonstrated left ureterovesical junction calculus. There is a visualized left ureteral jet. There is no demonstrated aneurysm.. I.V.C.: The IVC is patent. BLADDER: There is a normal wall thickness of the distended urinary bladder. There is no demonstrated mass within the urinary bladder. There are no demonstrated bladder calculi. US/Kidney and Bladder IMPRESSION: Normal ultrasound of the kidneys and urinary bladder. Electronically Signed: Delmar Vega MD at 19:07 EDT , Service support ,
== END ==
PROVIDERS: Referring Provider Urology; Visit Provider Urology
DX: R10.9 Unspecified abdominal pain (principal); R80.9 Proteinuria, unspecified
CPT/HCPCS: 76770

== ENCOUNTER → 2019-10-10 14:15 | Outpatient (CLI) | payer MEDICAID, SELFPAY ==
[2019-09-18 14:24] VITALS: BMI 29.5
[2019-10-10 18:23] LABS: Anion Gap 4 (5-15); BUN 7 mg/dL (7-18); BUN/Creat Ratio 8.3 RATIO (10-20); Calcium,Total 9.3 mg/dL (8.5-10.1); Chloride 111 mmol/L (98-107); Creatinine, Serum 0.84 mg/dL (0.55-1.02); EST Glomerular Filtration Rate 86 mL/min (>60); Est Glom Filt Rate - Afr Amer 104 mL/min (>60); Glucose 106 mg/dL (74-106); Potassium 4.2 mmol/L (3.5-5.1); Sodium Level 140 mmol/L (136-145)
== END ==
PROVIDERS: Referring Provider Urology; Visit Provider Urology
DX: R10.9 Unspecified abdominal pain (principal); R80.9 Proteinuria, unspecified
CPT/HCPCS: 36415; 80048

== ENCOUNTER 2020-04-15 08:22 | Inpatient (IN) | payer MEDICAID, SELFPAY ==
[2020-04-15 08:23] VITALS: BP 157/99; PULSE 97; RESP 19; TEMP 36.4; O2SAT 98; BMI 26.2
--- NOTE | 2020-04-15 08:55 | ED.VIS.GEN ---
History of Present Illness Chief Complaint: Substance Abuse Informant: Patient Narrative: 25-year-old female states that she would like to get detox from heroin, methamphetamines, and Suboxone. She tells me she was going to call the ambulance earlier because she is dying. Tells me she cannot breathe, her hands are tingling and her stomach hurts. I asked her what makes today the day that she would like to get clean and she cannot provide any answer. She tells me that she is a drug addict because the hospital sent her home on Suboxone. She cannot clarify more of that. The patient moans screams and yells continuously but she can stop and speak normally when she chooses. I think this is in large part due to her personality disorder. 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 (2) Borderline personality disorder Status: Chronic (3) Chronic bronchitis Status: Chronic (4) Fibromyalgia Status: Chronic (5) Neuropathy Status: Chronic (6) Seizures Status: Chronic Past Medical History - Allergies and Home Meds Allergies/Adverse Reactions: Allergies clindamycin Allergy (Mild, Verified 04/15/20 08:23) Unknown nickel [Nickel] Allergy (Verified 04/15/20 08:23) Unknown Penicillins Allergy (Verified 04/15/20 08:23) Shortness of breath doxycycline Adverse Reaction (Verified 04/15/20 08:23) Vomiting metronidazole [From Flagyl] Adverse Reaction (Verified 04/15/20 08:23) Upset Stomach sulfamethoxazole [From Bactrim] Adverse Reaction (Verified 04/15/20 08:23) Upset Stomach trimethoprim [From Bactrim] Adverse Reaction (Verified 04/15/20 08:23) Upset Stomach Primary Care Physician: Care Physician,No Primary [Primary Care Provider] - Surgical History: noncontributory Smoking Status: Current every day smoker Alcohol: Occasional Drugs: Heroin, - - Methamphetamines - Family History Maternal Family History: Family History (Last Reviewed 07/10/19 @ 13:[address] Smith Magdaleno MD) Father Diabetes Grandfather Diabetes Grandmother Diabetes Other Alcoholism Allergies Anxiety Anxiety and depression Arthritis Asthma defect Bowel disease CVA (cerebral vascular accident) Heart disease High cholesterol Hypertension Kidney disease Liver disease Mental disorder Myocardial infarction Psychiatric care Family History: Reports: - - Drug abuse Paternal Family History: Family History (Last Reviewed 07/10/19 @ 13:[address] Smith Magdaleno MD) Father Diabetes Grandfather Diabetes Grandmother Diabetes Other Alcoholism Allergies Anxiety Anxiety and depression Arthritis Asthma defect Bowel disease CVA (cerebral vascular accident) Heart disease High cholesterol Hypertension Kidney disease Liver disease Mental disorder Myocardial infarction Psychiatric care Family History: Reports: No pertinent history Review of Systems General: Reports: Malaise. Denies: Chills, Fever, Sweats Eyes: Denies: Visual changes - bilaterally, Diplopia ENT: Denies: Rhinorrhea, Sore throat Cardiovascular: Denies: Chest pain, Palpitations Respiratory: Denies: Dyspnea, Cough, Dyspnea on exertion Gastrointestinal: Reports: Abdominal pain, Nausea. Denies: Vomiting, Diarrhea, Melena, Hematochezia Genitourinary: Denies: Dysuria, Hematuria, Frequency Musculoskeletal: Reports: Myalgias, Arthralgias. Denies: Back pain, Extremity Pain Skin: Denies: Rash, Wounds Neurological: Reports: Headache, Parasthesia. Denies: Weakness, Numbness Physical Exam Vital Signs/Narrative: Vital Signs Temp Pulse Resp BP Pulse Ox 04/15/20 08:23 97.6 F L 97 19 H 157/99 H 98 Inital Vital Signs reviewed: Yes General: Well nourished, Well developed, - - Patient is lying in the bed holding her stomach rocking back and forth flailing around. She can stop and speak when she chooses. Head: Normocephalic, Atraumatic Eyes: Perrl, EOMI ENT: Moist mucous membranes, No rhinorrhea Neck: Supple, Nontender Cardiovascular: Regular rate, Regular rhythm, No murmurs Respiratory: No distress, CTA bilaterally, Chest nontender Abdomen: Soft, Nondistended, Normal bowel sounds, Tender - Out of proportion to examination Back: Nontender, Normal Inspection Extremities: Nontender, No edema Skin: Normal color, No rash Neurological: Alert, Oriented x3, Cranial nerves II-XII grossly intact, Normal Strength, Normal Sensation Psychological: Agitated Diagnostic/Tx/Re-eval - Medical Decision Making Addiction order set was ordered. Patient received Zofran and Bentyl. She does not understand why she is not receiving something stronger for pain. The patient states that she is agreeable to the rules of the program. I will contact the hospitalist. ED Disposition - Plan for ED Patient: Disposition: Acute Care Hospital [facility] Diagnosis: Opiate withdrawal, Borderline personality disorder, Methamphetamine abuse Referrals: Care Physician,No Primary [Primary Care Provider] -
[2020-04-15] MEDS: Dicyclomine 20 MG/2 ML Vial IM (09:04)
--- NOTE | 2020-04-15 09:27 | NURSING ---
DR BOSS FOR DR DENISE
--- NOTE | 2020-04-15 09:29 | ED.RN ---
pt states she is unable to be at this time. PT CONTNUES TO REQUEST PAIN MEDICINE. PT CONINUES TO FLAIL AROUND THE BED. PT REQUEST PAIN MEDS OR DETOX MEDS FOR THE PAIN.
[2020-04-15] MEDS: Ondansetron ODT 4 MG Tablet PO (09:35)
--- NOTE | 2020-04-15 09:35 | NURSING ---
MED SURG BENS OPIATE WITHDRAWAL
--- NOTE | 2020-04-15 09:35 | NURSING ---
DR BOSS IN ER
[2020-04-15 09:43] VITALS: BP 143/70; PULSE 90; RESP 19; TEMP 36.2; O2SAT 96
[2020-04-15 10:10] LABS: Absolute Lymphocyte Count 2.42 X10^3/uL (0.83-4.51); Absolute Neutrophil Count 7.8 X10^3/uL (2.0-7.7); Basophil# 0.06 X10^3/uL; Basophil% 0.5 % (0-1); Eosinophil# 0.03 X10^3/uL; Eosinophils% 0.3 % (0-5); Hematocrit 43.9 % (37-47); Hemoglobin 15.5 g/dL (12.0-15.0); Lymphocyte # 2.42 X10^3/ul (4.0); Lymphocyte % 21.5 % (19-41); Mean Corp Hgb Conc 35.3 g/dL (32-36); Mean Corpuscular Hgb 29.2 pg (27.0-32.0); Mean Corpuscular Volume 82.7 fL (81-99); Mean Platelet Vol. 9.8 fl (6.2-12.0); Monocyte# 0.93 X10^3/uL; Monocyte% 8.2 % (0-10); NRBC Flagged by Analyzer 0 % (0-5); Neutrophil # 7.79 X10^3/uL (2.7-7.7); Neutrophil % 69.1 % (47-70); Platelet Count 296 K/mm3 (150-450); RBC Distribution Width CV 11.9 % (11.6-14.6); RBC Distribution Width SD 35.8 fl (35.1-43.9); Red Blood Count 5.31 M/mm3 (4.2-5.4); White Blood Count 11.3 K/mm3 (4.4-11.0)
--- NOTE | 2020-04-15 10:20 | PCM.HP.STD ---
History of Present Illness Date of Admission: 04/15/20 Chief Complaint: Opiate detox The patient is a 25 year old F with a PMH as below who presents to the hospital requesting opiate detox. She says that she is gone through detox so many times and she cannot remember how many times that is been. When she presented to the ER she felt like she could not breathe and that she was dying per the report despite vital signs being normal. She goes from periods of thrashing on the bed and screaming to periods of having completely normal speech and normal behavior and then she returns to thrashing and screaming. She states that she had been addicted to Suboxone that she was discharged from the hospital on previously though the last time she was in this hospital for detox was about 6 years ago and she left [facility]. Past Medical History Past Medical History (Chronic Problems): Chronic Problems (Last Reviewed 07/10/19 @ 13:[address] Smith Magdaleno MD) HPV (human papilloma virus) infection (Chronic) Fibromyalgia (Chronic) Hypotension (Chronic) Low potassium syndrome (Chronic) Vitamin deficiency (Chronic) Vision problem (Chronic) Seizures (Chronic) Neuropathy (Chronic) Frequent headaches (Chronic) Gastrointestinal problem (Chronic) Chronic bronchitis (Chronic) Back problem (Chronic) Arthritis (Chronic) Seasonal allergies (Chronic) Borderline personality disorder (Chronic) Depression (Chronic) Drug abuse (Chronic) heroin and cocaine Bipolar disorder (Chronic) Medical History: Medical History (Last Reviewed 07/10/19 @ 13:[address] Smith Magdaleno MD) HPV (human papilloma virus) infection (Chronic) B97.7 Fibromyalgia (Chronic) M79.7 Bursitis of shoulder, left (Acute) M75.52 Hypotension (Chronic) I95.9 Low potassium syndrome (Chronic) E87.6 Vitamin deficiency (Chronic) E56.9 Vision problem (Chronic) H54.7 Seizures (Chronic) R56.9 Neuropathy (Chronic) G62.9 Recurrent infections (Resolved) B99.9 Hives (Resolved) L50.9 Frequent headaches (Chronic) R51 Gastrointestinal problem (Chronic) R19.8 Drug abuse (Acute) F19.10 Chronic bronchitis (Chronic) J42 Carpal tunnel syndrome (Acute) G56.00 UTI (urinary tract infection) (Resolved) N39.0 Severe Septis Ecoli & UTI Back problem (Chronic) M53.9 Arthritis (Chronic) M19.90 Seasonal allergies (Chronic) J30.2 Allergies clindamycin Allergy (Mild, Verified 04/15/20 08:23) Unknown nickel [Nickel] Allergy (Verified 04/15/20 08:23) Unknown Penicillins Allergy (Verified 04/15/20 08:23) Shortness of breath doxycycline Adverse Reaction (Verified 04/15/20 08:23) Vomiting metronidazole [From Flagyl] Adverse Reaction (Verified 04/15/20 08:23) Upset Stomach sulfamethoxazole [From Bactrim] Adverse Reaction (Verified 04/15/20 08:23) Upset Stomach trimethoprim [From Bactrim] Adverse Reaction (Verified 04/15/20 08:23) Upset Stomach Home Medications: Ambulatory Orders Medication Instructions Recorded Clonidine HCl 0.1 mg PO TID PRN PRN 04/07/18 acetaminophen 650 mg 650 mg PO ONCE 02/26/19 tablet,extended release acyclovir 400 mg tablet 400 mg PO BID PRN 02/26/19 lactulose PO HS 02/26/19 norethindrone 1 mg-ethinyl 1 tab PO DAILY 02/26/19 estradiol 20 mcg (24)-iron 75 mg (4) tablet polyethylene glycol 3350 17 17 g PO BID 02/26/19 gram/dose oral powder albuterol sulfate 90 mcg/actuation 1 - 2 puff INHALATION Q6H PRN #8.5 03/07/19 aerosol inhaler g buprenorphine 2 mg-naloxone 0.5 mg 1 tab SUBLINGUAL DAILY 03/29/19 sublingual tablet Surgical History: Surgical History (Last Reviewed 07/10/19 @ 13:[address] Smith Magdaleno MD) HISTORY NECK INJECTIONS History of Z87.59 2017 - d & c History of appendectomy Z90.49 1999 History of colonoscopy Z98.890 History of shoulder surgery Z98.890 2016 Surgical History: noncontributory Psychiatric History: Bipolar - maybe...there is a question zach after BPD on the notes from the counselling center. 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 Smith Magdaleno MD) Father Diabetes Grandfather Diabetes Grandmother Diabetes Other Alcoholism Allergies Anxiety Anxiety and depression Arthritis Asthma defect Bowel disease CVA (cerebral vascular accident) Heart disease High cholesterol Hypertension Kidney disease Liver disease Mental disorder Myocardial infarction Psychiatric care History Items: - - Drug abuse Paternal Family History: Family History (Last Reviewed 07/10/19 @ 13:[address] Smith Magdaleno MD) Father Diabetes Grandfather Diabetes Grandmother Diabetes Other Alcoholism Allergies Anxiety Anxiety and depression Arthritis Asthma defect Bowel disease CVA (cerebral vascular accident) Heart disease High cholesterol Hypertension Kidney disease Liver disease Mental disorder Myocardial infarction Psychiatric care History Items: No pertinent history Review of Systems Constitutional: Reports: Malaise. Denies: Chills, Fever, Weight Change HEENT: Denies: Head Aches, Sinus Congestion, Sinus Drainage Cardiovascular: Denies: Chest Pain, Palpitations Respiratory: Denies: Cough, Shortness of breath at rest, Sputum production Gastrointestinal: Reports: Abdominal Pain, Nausea. Denies: Vomiting Genitourinary: Denies: Dysuria Musculoskeletal: Reports: Muscle pain. Denies: Joint Pain, Joint Tenderness Skin: Denies: Rash, Wounds Neurological: Denies: Numbness, Tingling, Focal weakness Psychiatric: Denies: Anxiety, Depression Hematologic/ Lymphatic: Denies: Easy Bruising, Easy Bleeding VTE Information - Inpt Only VTE Present on Admission: No Patient Problems: Active and Suspected Problems (Last Reviewed 07/10/19 @ 13:[address] Smith Magdaleno MD) Methamphetamine abuse (Acute) Opiate withdrawal (Acute) - Physical Exam Vitals/I&O's: Vital Signs Temp Pulse Resp BP Pulse Ox 97.1 F L 90 19 H 143/70 H 96 04/15/20 09:43 04/15/20 09:43 04/15/20 09:43 04/15/20 09:43 04/15/20 09:43 Oxygen Delivery Method Room Air Weight: 130 lb Body Mass Index (BMI) 26.2 General: Alert, Oriented x3, Cooperative, No apparent distress, - - Except for times where she is purposely thrashing HEENT: Atraumatic, PERRLA, EOMI, Normocephalic Oral: Moist Mucosa Neck: Supple, No JVD Lungs: Clear to auscultation, Normal air movement, No rhonchi, No wheeze, No rales Cardiovascular: Regular rate, Regular Rhythm, Normal S1, Normal S2, No murmurs Abdomen: Soft, Non Tender, Non-Distended, No Hepato-splenomegaly Extremities: No edema, Capillary Refill Less than 3 Seconds Skin: No rashes, No breakdown Neurological: Neuro grossly intact, Sensory exam intact to light touch and pain Psych/Mental Status: Agitated, Impulsive, Irrational Behavior, Restless Laboratory Results 04/15/20 10:00: WBC 11.3 H, RBC 5.31, Hgb 15.5 H, Hct 43.9, MCV 82.7, MCH 29.2, MCHC 35.3, RDW Std Deviation 35.8, RDW Coeff of [place] 11.9, Plt Count 296, MPV 9.8, Immature Gran % (Auto) 0.400, Neut % (Auto) 69.1, Lymph % (Auto) 21.5, Reagan % (Auto) 8.2, Eos % (Auto) 0.3, Baso % (Auto) 0.5, Absolute Neuts (auto) 7.8 H, Absolute Lymphs (auto) 2.42, Nucleated RBC % 0 04/15/20 10:00: Sodium Pending, Potassium Pending, Chloride Pending, Carbon Dioxide Pending, Anion Gap Pending, BUN Pending, Creatinine Pending, Est GFR (MDRD) Af Amer Pending, Est GFR (MDRD) Non-Af Pending, BUN/Creatinine Ratio Pending, Glucose Pending, Calcium Pending, Total Bilirubin Pending, AST Pending, ALT Pending, Alkaline Phosphatase Pending, Total Protein Pending, Albumin Pending 04/15/20 10:00: Ethyl Alcohol Pending 04/15/20 10:00: Serum , Qual Pending Current Medications Buprenorphine HCl (Buprenorphine Hcl 2 Mg Tab.Subl) 0 mg SL Q8H AUSTYN; Taper Stop: 04/18/20 10:15 Clonidine (Clonidine Hcl 0.1 Mg Tablet) 0.1 mg PO Q8H PRN PRN PRN Reason: RESTLESSNESS Dicyclomine HCl (Dicyclomine 10 Mg Capsule) 20 mg PO Q6H PRN PRN PRN Reason: Abdominal Discomfort Gabapentin (Gabapentin 300 Mg Capsule) 300 mg PO Q8H PRN PRN PRN Reason: moderate to severe anxiety Hydroxyzine Pamoate (Hydroxyzine Elizabeth 25 Mg Capsule) 50 mg PO Q6H PRN PRN PRN Reason: mild anxiety Loperamide HCl (Loperamide 2 Mg Capsule) 2 mg PO Q4H PRN PRN PRN Reason: LOOSE STOOLS Melatonin (Melatonin 3 Mg Tablet) 3 mg PO QHS PRN PRN PRN Reason: INSOMNIA Methocarbamol (Methocarbamol 750 Mg Tablet) 1,500 mg PO Q6H PRN PRN PRN Reason: MUSCLE SPASM Ondansetron HCl (Ondansetron 8 Mg Tablet) 8 mg PO Q8H PRN PRN PRN Reason: NAUSEA Ondansetron HCl (Ondansetron 4 Mg/2 Ml Vial) 4 mg IV Q8H PRN PRN PRN Reason: NAUSEA/VOMITING Trazodone HCl (Trazodone 100 Mg Tablet) 100 mg PO QHS PRN PRN PRN Reason: INSOMNIA Assessment/Plan All Active Problems (Last Reviewed 07/10/19 @ 13:[address] Smith Magdaleno MD) Methamphetamine abuse (Acute) Bursitis of shoulder, left (Acute) Recurrent infections (Resolved) Hives (Resolved) Drug abuse (Acute) Carpal tunnel syndrome (Acute) UTI (urinary tract infection) (Resolved) Severe sepsis (Acute) UTI (urinary tract infection) (Acute) Toxic encephalopathy (Acute) Opiate withdrawal (Acute) Overdose (Resolved) 1. 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, meth and Suboxone/borderline personality disorder -We will continue with the opiate withdrawal protocol -She did agree to the rules of the program therefore she will be admitted and have outpatient follow-up with 180 -She will likely need to follow-up as an outpatient with psychiatry for her personality disorder as this is a significant barrier to appropriate care -We will continue to monitor however vital signs are stable and there is no indication that she has anything more going on other than detox in her personality disorder DVT: Low risk Inpatient E&M: 60364 Init Hosp L2
--- NOTE | 2020-04-15 10:40 | NURSING ---
Patient states I want to kill myself. Dr. Nunez notifed. Room cleared of potential items that may assist suicide and sitter placed at bedside.
[2020-04-15 10:42] LABS: Alcohol, Blood (Medical)-Serum < 3.0 mg/dL
[2020-04-15 10:45] LABS: ALB/GLOB Ratio 1.1 RATIO (0.9-2.4); AST(SGOT) 85 U/L (15-37); Alanine Aminotransfer ALT/SGPT 125 U/L (13-56); Albumin, Serum 4.2 g/dL (3.2-5.0); Alkaline Phosphatase 92 U/L (45-117); Anion Gap 14 (5-15); BUN 13 mg/dL (7-18); BUN/Creat Ratio 19.6 RATIO (10-20); Calcium,Total 9.9 mg/dL (8.5-10.1); Chloride 103 mmol/L (98-107); Creatinine, Serum 0.66 mg/dL (0.55-1.02); EST Glomerular Filtration Rate 113 mL/min (>60); Est Glom Filt Rate - Afr Amer 137 mL/min (>60); Estimated Creatinine Clearance 119.19 ml/min; Globulin 3.9 g/dL (2.2-4.2); Glucose 65 mg/dL (74-106); Potassium 3.4 mmol/L (3.5-5.1); Protein, Total 8.1 g/dL (6.4-8.2); Sodium Level 137 mmol/L (136-145)
[2020-04-15 10:46] LABS: Internal QC Validated? YES +Cl - CLEAR BKGD; Pregnancy, Serum, hCG Quali. NEGATIVE Negative
[2020-04-15 10:57] VITALS: BP 141/120; PULSE 105; RESP 16; TEMP 36.3; O2SAT 100
[2020-04-15 11:08] VITALS: BMI 21.9
[2020-04-15 11:21] VITALS: BMI 21.9
[2020-04-15] MEDS: Buprenorphine HCl 2 MG TAB.SUBL SL ×2 (11:25→22:39)
[2020-04-15] MEDS: hydrOXYzine PAM 25 MG Capsule 50 MG PO (11:26)
--- NOTE | 2020-04-15 11:32 | CASEMGMT ---
[place] called Neeru López with [facility] to make her aware of pt's admission for the [facility] program. She will come see pt tomorrow. WENDY Ramirez
[2020-04-15] MEDS: Methocarbamol 750 MG Tablet 1500 MG PO ×2 (12:12→22:39)
[2020-04-15] MEDS: Gabapentin 300 MG Capsule PO ×2 (12:12→22:39)
[2020-04-15 15:05] VITALS: BP 131/70; PULSE 97; RESP 16; TEMP 36.1; O2SAT 99
[2020-04-15] MEDS: Ondansetron 8 MG Tablet PO (15:18)
[2020-04-15 18:57] VITALS: BP 120/92; PULSE 108; RESP 20; TEMP 36.3; O2SAT 100
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
[2020-04-15] MEDS: cloNIDine HCl 0.1 MG Tablet PO (22:39)
[2020-04-15 23:00] VITALS: BP 95/67; PULSE 72; RESP 18; TEMP 37.1; O2SAT 96
[2020-04-16] MEDS: Acetaminophen 500 MG Tablet PO ×2 (00:40→23:20)
[2020-04-16] MEDS: Nicotine Polacrilex 2 MG GUM PO ×2 (00:40→03:32)
--- NOTE | 2020-04-16 01:06 | PCS.PANDOC ---
PANDEMIC DOCUMENTATION INITIATED: Date: 04/15/20 Time: 1024
[2020-04-16 01:57] LABS: Bacteria 0 SEEN /hpf (None Seen); Mucous, Urine 0 SEEN /hpf (<or=2+)
[2020-04-16 02:00] LABS: Color, Urine Yellow (Yellow); Glucose, Dipstick Normal (Normal); Leukocyte Esterase-Dipstick 25 /ul (Negative); Nitrite-Dipstick Positive (Negative); Occult Blood-Urine 250 /ul (Negative); Protein-Dipstick 30 mg/dl (Negative); Specific Gravity, Urine 1.025 (1.002-1.030); Urine Clarity Cloudy (Clear); Urine Urobilinogen 1 mg/dl (Normal)
[2020-04-16 02:01] LABS: Urine Bilirubin Dipstick 1 mg/dL (Negative)
[2020-04-16 02:02] LABS: Ketone-Dipstick 150 mg/dl (Negative)
[2020-04-16 02:06] LABS: Red Blood Cells-Urine 10-25 SEEN /hpf (0-5); Squamous Epithelial Cells - UA 0-5 SEEN /hpf (5-10); White Blood Cells 5-10 SEEN /hpf (0-5)
--- NOTE | 2020-04-16 02:09 | PCM.PN.BLA ---
Progress Note Urinalysis is abnormal. Because of multiple allergies will start on Macrodantin. STROKE Vital Signs/Narrative: Vital Signs Temp Pulse Resp BP Pulse Ox 04/15/20 23:00 98.7 F 72 18 95/67 96
[2020-04-16 02:32] LABS: Amphetamine Urine VISTA POSITIVE (<1000 ng/mL); Barbiturate Urine VISTA NEGATIVE (< 200 ng/mL); Benzodiazepine Urine VISTA POSITIVE (< 200 ng/mL); Cocaine Urine VISTA NEGATIVE (< 300 ng/mL); Ecstacy Urine VISTA POSITIVE (< 500 ng/mL); Methadone Urine VISTA NEGATIVE (< 300 ng/mL); PCP Urine VISTA NEGATIVE (< 25 ng/mL); THC Urine VISTA NEGATIVE (< 50 ng/mL); Vista UDS pH Range 6
--- NOTE | 2020-04-16 02:40 | NURSING ---
Pt. offered prn medications through most of shift. Pt. continues to refuse most stating they wont work or that she does not want to take all these different medications because they will hurt my body. or that she has been taking them all day and they do not work. Pt. educated that she has only taken several medications in the morning of 04/15/19 but pt. refuses to listen to response. Pt. has been offered other nonpharmacological methods to help with back pain but patient refuses.
[2020-04-16] MEDS: Buprenorphine HCl 2 MG TAB.SUBL SL ×3 (03:28→20:52)
[2020-04-16] MEDS: hydrOXYzine PAM 25 MG Capsule 50 MG PO ×3 (03:28→23:20)
[2020-04-16] MEDS: Nitrofurantoin Macrocrystals 100 MG Capsule PO ×2 (03:28→12:58)
[2020-04-16] MEDS: Ibuprofen 400 MG Tablet PO ×2 (03:29→12:58)
[2020-04-16] MEDS: Ondansetron 8 MG Tablet PO ×2 (03:32→13:28)
[2020-04-16 03:54] VITALS: BP 95/49; PULSE 117; RESP 18; TEMP 36.8; O2SAT 100
[2020-04-16] MEDS: Methocarbamol 750 MG Tablet 1500 MG PO ×3 (04:47→23:20)
[2020-04-16] MEDS: Gabapentin 300 MG Capsule PO ×3 (06:40→23:21)
[2020-04-16] MEDS: cloNIDine HCl 0.1 MG Tablet PO ×3 (06:40→23:20)
--- NOTE | 2020-04-16 08:22 | NURSING ---
This RN spoke with crisis claims service representative and was told they are unable to evaluate patient until no longer receiving withdrawl treatment. I then reached out to our in house behavioral health department and spoke with Rachele. She stated that unfortunately due to staff availablility no one would be able to come over until tomorrow.
[2020-04-16 09:35] VITALS: BP 124/62; PULSE 109; RESP 18; TEMP 36.6; O2SAT 99
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
--- NOTE | 2020-04-16 11:36 | PCM.PN.HOSP ---
Patient Problems: Active and Suspected Problems (Last Reviewed 07/10/19 @ 13:[address] Smith Magdaleno MD) Methamphetamine abuse (Acute) Opiate withdrawal (Acute) Subjective: Continues with her erratic behavior overnight. This morning she was evaluated in resting comfortably Vitals/I&O's: Vital Signs Temp Pulse Resp BP Pulse Ox 97.9 F 109 H 18 124/62 H 99 04/16/20 09:35 04/16/20 09:35 04/16/20 09:35 04/16/20 09:35 04/16/20 09:35 Oxygen Delivery Method Room Air Weight: 108 lb 11.006 oz Body Mass Index (BMI) 21.9 Intake and Output for Last 24 Hours 04/14/20 04/15/20 04/16/20 23:59 23:59 23:59 Intake Total 240 / 240 480 / 480 Balance 240 / 240 480 / 480 General: Alert, Oriented x3, Cooperative, No apparent distress HEENT: Atraumatic, PERRLA, EOMI, Normocephalic Oral: Moist Mucosa Neck: Supple, No JVD Lungs: Clear to auscultation, Normal air movement, No rhonchi, No wheeze, No rales Cardiovascular: Regular rate, Regular Rhythm, Normal S1, Normal S2, No murmurs Abdomen: Soft, Non Tender, Non-Distended, No Hepato-splenomegaly Extremities: No edema, Capillary Refill Less than 3 Seconds Skin: No rashes, No breakdown Neurological: Neuro grossly intact, Sensory exam intact to light touch and pain Psych/Mental Status: Agitated, Impulsive, Irrational Behavior, Restless Laboratory Results 04/16/20 00:30: Urine Opiates Screen NEGATIVE, Urine Methadone Screen NEGATIVE, Ur Barbiturates Screen NEGATIVE, Ur Phencyclidine Scrn NEGATIVE, Ur Amphetamines Screen POSITIVE H, U Methamphetamin-MDMA POSITIVE H, U Benzodiazepines Scrn POSITIVE H, Urine Cocaine Screen NEGATIVE, U Cannabinoids Screen NEGATIVE, Ur Drug Screen Comment 04/16/20 00:30: Urine Color Yellow, Urine Clarity Cloudy, Urine pH 6.0, Ur Specific [place] 1.025, Urine Protein 30 H, Urine Glucose (UA) Normal, Urine Ketones 150 H, Urine Occult Blood 250 H, Urine Nitrite Positive H, Urine Bilirubin 1 H, Urine Urobilinogen 1 H, Ur Leukocyte Esterase 25 H, Urine RBC 10-25 SEEN, Urine WBC 5-10 SEEN, Ur Squamous Epith Cells 0-5 SEEN, Urine Bacteria 0 SEEN, Urine Mucus 0 SEEN 04/16/20 09:45: Hepatitis A IgM Ab Pending, Hepatitis A Ab Total Pending, Hep Bs Antigen Pending, Hep B Core Total Ab Pending, Hep B Core IgM Ab Pending Current Medications Acetaminophen (Acetaminophen 500 Mg Tablet) 500 mg PO Q6H PRN PRN PRN Reason: pain 1-10/fever >=100.4F Last Admin: 04/16/20 00:40 Dose: 500 mg Documented by: Buprenorphine HCl (Buprenorphine Hcl 2 Mg Tab.Subl) 4 mg SL Q8H AUSTYN; Taper Stop: 04/18/20 11:59 Last Admin: 04/16/20 03:28 Dose: 4 mg Documented by: Clonidine (Clonidine Hcl 0.1 Mg Tablet) 0.1 mg PO Q8H PRN PRN PRN Reason: RESTLESSNESS Last Admin: 04/16/20 06:40 Dose: 0.1 mg Documented by: Dicyclomine HCl (Dicyclomine 10 Mg Capsule) 20 mg PO Q6H PRN PRN PRN Reason: Abdominal Discomfort Gabapentin (Gabapentin 300 Mg Capsule) 300 mg PO Q8H PRN PRN PRN Reason: moderate to severe anxiety Last Admin: 04/16/20 06:40 Dose: 300 mg Documented by: Hydroxyzine Pamoate (Hydroxyzine Elizabeth 25 Mg Capsule) 50 mg PO Q6H PRN PRN PRN Reason: mild anxiety Last Admin: 04/16/20 03:28 Dose: 50 mg Documented by: Ibuprofen (Ibuprofen 400 Mg Tablet) 400 mg PO Q6H PRN PRN PRN Reason: Pain 1-10 or Fever Last Admin: 04/16/20 03:29 Dose: 400 mg Documented by: Loperamide HCl (Loperamide 2 Mg Capsule) 2 mg PO Q4H PRN PRN PRN Reason: LOOSE STOOLS Melatonin (Melatonin 3 Mg Tablet) 3 mg PO QHS PRN PRN PRN Reason: INSOMNIA Methocarbamol (Methocarbamol 750 Mg Tablet) 1,500 mg PO Q6H PRN PRN PRN Reason: MUSCLE SPASM Last Admin: 04/16/20 04:47 Dose: 1,500 mg Documented by: Nicotine (Nicotine 21 Mg Patch) 21 mg TD DAILY AUSTYN Last Admin: 04/16/20 04:47 Dose: 21 mg Documented by: Nitrofurantoin Macrocrystals (Nitrofurantoin Macrocrystals 100 Mg Capsule) 100 mg PO BID [facility] Last Admin: 04/16/20 03:28 Dose: 100 mg Documented by: Ondansetron HCl (Ondansetron 8 Mg Tablet) 8 mg PO Q8H PRN PRN PRN Reason: NAUSEA Last Admin: 04/16/20 03:32 Dose: 8 mg Documented by: Ondansetron HCl (Ondansetron 4 Mg/2 Ml Vial) 4 mg IV Q8H PRN PRN PRN Reason: NAUSEA/VOMITING Sodium Chloride (0.9% Saline Lock 10 Ml Syringe) 10 - 40 ml IV UD PRN PRN Reason: SALINE FLUSH Trazodone HCl (Trazodone 100 Mg Tablet) 100 mg PO QHS PRN PRN PRN Reason: INSOMNIA STROKE Vital Signs/Narrative: Vital Signs Temp Pulse Resp BP Pulse Ox 04/16/20 09:35 97.9 F 109 H 18 124/62 H 99 Medical Necessity - Tobacco Use Smoking Status: Current every day smoker Tobacco Use: Cigarettes Assessment/Plan All Active Problems (Last Reviewed 07/10/19 @ 13:[address] Smith Magdaleno MD) Methamphetamine abuse (Acute) Bursitis of shoulder, left (Acute) Recurrent infections (Resolved) Hives (Resolved) Drug abuse (Acute) Carpal tunnel syndrome (Acute) UTI (urinary tract infection) (Resolved) Severe sepsis (Acute) UTI (urinary tract infection) (Acute) Toxic encephalopathy (Acute) Opiate withdrawal (Acute) Overdose (Resolved) 1. 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, meth and Suboxone/borderline personality disorder -We will continue with the opiate withdrawal protocol -She did agree to the rules of the program therefore she will be admitted and have outpatient follow-up with 180 -She will likely need to follow-up as an outpatient with psychiatry for her personality disorder as this is a significant barrier to appropriate care -We will continue to monitor however vital signs are stable and there is no indication that she has anything more going on other than detox in her personality disorder -UA with no bacteria, 25 leukocyte esterase and positive nitrates. She was started on Macrobid overnight by the night physician. We will continue and monitor urine culture. Remains afebrile -She was cleared of her suicidal ideation today by social work DVT: Low risk Inpatient E&M: 42539 Subs Hosp L2
[2020-04-16 15:01] VITALS: BP 100/49; PULSE 98; RESP 16; TEMP 36.6; O2SAT 98
[2020-04-16 20:48] VITALS: BP 100/60; PULSE 78; RESP 18; TEMP 36.6; O2SAT 98
[2020-04-16] MEDS: Polyethylene Glycol 3350 17 GM PACKET PO (23:21)
[2020-04-16 23:33] VITALS: BP 94/59; PULSE 77; RESP 18; TEMP 36.6; O2SAT 100
[2020-04-17] MEDS: Nitrofurantoin Macrocrystals 100 MG Capsule PO ×3 (00:05→22:25)
[2020-04-17] MEDS: Ibuprofen 400 MG Tablet PO ×3 (04:05→17:12)
[2020-04-17] MEDS: Buprenorphine HCl 2 MG TAB.SUBL SL ×3 (04:05→23:34)
[2020-04-17 04:24] VITALS: BP 97/56; PULSE 76; RESP 16; TEMP 36.4; O2SAT 98
[2020-04-17 08:09] LABS: HEPATITIS B SURFACE AG Negative (Negative); Hepatitis A AB, Total Positive (Negative); Hepatitis B Core AB IgM Negative (Negative); Hepatitis C Ab >11.0 s/co ratio (0.0-0.9)
[2020-04-17 09:05] VITALS: BP 115/48; PULSE 62; RESP 18; TEMP 36.7; O2SAT 95
[2020-04-17] MEDS: Polyethylene Glycol 3350 17 GM PACKET PO ×2 (09:29→22:24)
[2020-04-17] MEDS: Acyclovir 200 MG Capsule 400 MG PO ×2 (09:30→22:24)
[2020-04-17] MEDS: cloNIDine HCl 0.1 MG Tablet PO (09:31)
[2020-04-17] MEDS: Gabapentin 300 MG Capsule PO ×2 (09:31→22:33)
[2020-04-17] MEDS: Acetaminophen 500 MG Tablet PO ×2 (09:31→22:33)
[2020-04-17 09:55] LABS: Absolute Neutrophil Count 2.6 X10^3/uL (2.0-7.7); Basophil# 0.07 X10^3/uL; Basophil% 0.9 % (0-1); Eosinophil# 0.31 X10^3/uL; Eosinophils% 4.1 % (0-5); Hematocrit 45.6 % (37-47); Hemoglobin 14.7 g/dL (12.0-15.0); Lymphocyte % 53.4 % (19-41); Mean Corp Hgb Conc 32.2 g/dL (32-36); Mean Corpuscular Hgb 28.4 pg (27.0-32.0); Mean Corpuscular Volume 88.2 fL (81-99); Mean Platelet Vol. 9.6 fl (6.2-12.0); Monocyte# 0.54 X10^3/uL; Monocyte% 7.2 % (0-10); NRBC Flagged by Analyzer 0 % (0-5); Neutrophil # 2.55 X10^3/uL (2.7-7.7); Neutrophil % 34.1 % (47-70); Platelet Count 275 K/mm3 (150-450); RBC Distribution Width CV 12.6 % (11.6-14.6); RBC Distribution Width SD 41.3 fl (35.1-43.9); Red Blood Count 5.17 M/mm3 (4.2-5.4); White Blood Count 7.5 K/mm3 (4.4-11.0)
[2020-04-17 10:25] LABS: ALB/GLOB Ratio 1.1 RATIO (0.9-2.4); AST(SGOT) 46 U/L (15-37); Alanine Aminotransfer ALT/SGPT 91 U/L (13-56); Albumin, Serum 3.5 g/dL (3.2-5.0); Alkaline Phosphatase 76 U/L (45-117); Anion Gap 11 (5-15); BUN 16 mg/dL (7-18); BUN/Creat Ratio 15.2 RATIO (10-20); Chloride 102 mmol/L (98-107); Creatinine, Serum 1.05 mg/dL (0.55-1.02); EST Glomerular Filtration Rate 67 mL/min (>60); Est Glom Filt Rate - Afr Amer 81 mL/min (>60); Estimated Creatinine Clearance 62.64 ml/min; Globulin 3.3 g/dL (2.2-4.2); Glucose 126 mg/dL (74-106); Potassium 3.4 mmol/L (3.5-5.1); Protein, Total 6.8 g/dL (6.4-8.2); Sodium Level 138 mmol/L (136-145)
[2020-04-17] MEDS: hydrOXYzine PAM 25 MG Capsule 50 MG PO ×2 (10:27→22:33)
[2020-04-17] MEDS: Methocarbamol 750 MG Tablet 1500 MG PO ×2 (10:27→17:12)
--- NOTE | 2020-04-17 11:19 | PCM.PN.HOSP ---
Patient Problems: Active and Suspected Problems (Last Reviewed 07/10/19 @ 13:[address] Smith Magdaleno MD) Methamphetamine abuse (Acute) Opiate withdrawal (Acute) Subjective: No issues overnight, seems to be little more compliant with the withdrawal regimen. She will meet with one eighty today as she has been cleared from her suicidal ideation by social work. Vitals/I&O's: Vital Signs Temp Pulse Resp BP Pulse Ox 98.1 F 62 18 115/48 L 95 04/17/20 09:05 04/17/20 09:05 04/17/20 09:05 04/17/20 09:05 04/17/20 09:05 Oxygen Delivery Method Room Air Weight: 108 lb 11.006 oz Body Mass Index (BMI) 21.9 Intake and Output for Last 24 Hours 04/15/20 04/16/20 04/17/20 23:59 23:59 23:59 Intake Total 240 / 240 480 / 960 720 / 720 Output Total 0 / 0 Balance 240 / 240 480 / 960 720 / 720 General: Alert, Oriented x3, Cooperative, No apparent distress HEENT: Atraumatic, PERRLA, EOMI, Normocephalic Oral: Moist Mucosa Neck: Supple, No JVD Lungs: Clear to auscultation, Normal air movement, No rhonchi, No wheeze, No rales Cardiovascular: Regular rate, Regular Rhythm, Normal S1, Normal S2, No murmurs Abdomen: Soft, Non Tender, Non-Distended, No Hepato-splenomegaly Extremities: No edema, Capillary Refill Less than 3 Seconds Skin: No rashes, No breakdown Neurological: Neuro grossly intact, Sensory exam intact to light touch and pain Psych/Mental Status: Irrational Behavior Laboratory Results 04/17/20 09:45: WBC 7.5, RBC 5.17, Hgb 14.7, Hct 45.6, MCV 88.2 D, MCH 28.4, MCHC 32.2 D, RDW Std Deviation 41.3, RDW Coeff of [place] 12.6, Plt Count 275, MPV 9.6, Immature Gran % (Auto) 0.300, Neut % (Auto) 34.1 L, Lymph % (Auto) 53.4 H, Coos % (Auto) 7.2, Eos % (Auto) 4.1, Baso % (Auto) 0.9, Absolute Neuts (auto) 2.6, Absolute Lymphs (auto) 4.00, Nucleated RBC % 0 04/17/20 09:45: Sodium 138, Potassium 3.4 L, Chloride 102, Carbon Dioxide 25.0, Anion Gap 11, BUN 16, Creatinine 1.05 H, Estim Creat Clear Calc 62.64, Est GFR (MDRD) Af Amer 81, Est GFR (MDRD) Non-Af 67, BUN/Creatinine Ratio 15.2, Glucose 126 H, Calcium 9.0, Total Bilirubin 0.60, AST 46 H, ALT 91 H, Alkaline Phosphatase 76, Total Protein 6.8, Albumin 3.5, Globulin 3.3, Albumin/Globulin Ratio 1.1 Current Medications Acetaminophen (Acetaminophen 500 Mg Tablet) 500 mg PO Q6H PRN PRN PRN Reason: pain 1-10/fever >=100.4F Last Admin: 04/17/20 09:31 Dose: 500 mg Documented by: Acyclovir (Acyclovir 200 Mg Capsule) 400 mg PO BID AUSTYN Last Admin: 04/17/20 09:30 Dose: 400 mg Documented by: Buprenorphine HCl (Buprenorphine Hcl 2 Mg Tab.Subl) 2 mg SL Q8H AUSTYN; Taper Stop: 04/18/20 11:59 Last Admin: 04/17/20 04:05 Dose: 2 mg Documented by: Clonidine (Clonidine Hcl 0.1 Mg Tablet) 0.1 mg PO Q8H PRN PRN PRN Reason: RESTLESSNESS Last Admin: 04/17/20 09:31 Dose: 0.1 mg Documented by: Dicyclomine HCl (Dicyclomine 10 Mg Capsule) 20 mg PO Q6H PRN PRN PRN Reason: Abdominal Discomfort Gabapentin (Gabapentin 300 Mg Capsule) 300 mg PO Q8H PRN PRN PRN Reason: moderate to severe anxiety Last Admin: 04/17/20 09:31 Dose: 300 mg Documented by: Hydroxyzine Pamoate (Hydroxyzine Elizabeth 25 Mg Capsule) 50 mg PO Q6H PRN PRN PRN Reason: mild anxiety Last Admin: 04/16/20 23:20 Dose: 50 mg Documented by: Ibuprofen (Ibuprofen 400 Mg Tablet) 400 mg PO Q6H PRN PRN PRN Reason: Pain 1-10 or Fever Last Admin: 04/17/20 04:05 Dose: 400 mg Documented by: Loperamide HCl (Loperamide 2 Mg Capsule) 2 mg PO Q4H PRN PRN PRN Reason: LOOSE STOOLS Melatonin (Melatonin 3 Mg Tablet) 3 mg PO QHS PRN PRN PRN Reason: INSOMNIA Methocarbamol (Methocarbamol 750 Mg Tablet) 1,500 mg PO Q6H PRN PRN PRN Reason: MUSCLE SPASM Last Admin: 04/17/20 10:27 Dose: 1,500 mg Documented by: Nicotine (Nicotine 21 Mg Patch) 21 mg TD DAILY [facility] Last Admin: 04/17/20 09:31 Dose: 21 mg Documented by: Nitrofurantoin Macrocrystals (Nitrofurantoin Macrocrystals 100 Mg Capsule) 100 mg PO BID [facility] Last Admin: 04/17/20 09:29 Dose: 100 mg Documented by: Ondansetron HCl (Ondansetron 8 Mg Tablet) 8 mg PO Q8H PRN PRN PRN Reason: NAUSEA Last Admin: 04/16/20 13:28 Dose: 8 mg Documented by: Ondansetron HCl (Ondansetron 4 Mg/2 Ml Vial) 4 mg IV Q8H PRN PRN PRN Reason: NAUSEA/VOMITING Polyethylene Glycol (Polyethylene Glycol 3350 17 Gm Packet) 17 gm PO BID [facility] Last Admin: 04/17/20 09:29 Dose: 17 gm Documented by: Sodium Chloride (0.9% Saline Lock 10 Ml Syringe) 10 - 40 ml IV UD PRN PRN Reason: SALINE FLUSH Trazodone HCl (Trazodone 100 Mg Tablet) 100 mg PO QHS PRN PRN PRN Reason: INSOMNIA STROKE Vital Signs/Narrative: Vital Signs Temp Pulse Resp BP Pulse Ox 04/17/20 09:05 98.1 F 62 18 115/48 L 95 Medical Necessity - Tobacco Use Smoking Status: Current every day smoker Tobacco Use: Cigarettes Assessment/Plan All Active Problems (Last Reviewed 07/10/19 @ 13:[address] Smith Magdaleno MD) Methamphetamine abuse (Acute) Bursitis of shoulder, left (Acute) Recurrent infections (Resolved) Hives (Resolved) Drug abuse (Acute) Carpal tunnel syndrome (Acute) UTI (urinary tract infection) (Resolved) Severe sepsis (Acute) UTI (urinary tract infection) (Acute) Toxic encephalopathy (Acute) Opiate withdrawal (Acute) Overdose (Resolved) 1. 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, meth and Suboxone/borderline personality disorder -We will continue with the opiate withdrawal protocol, will meet with one eighty today -She did agree to the rules of the program -She will likely need to follow-up as an outpatient with psychiatry for her personality disorder as this is a significant barrier to appropriate care -We will continue to monitor however vital signs are stable and there is no indication that she has anything more going on other than detox in her personality disorder -UA with no bacteria, 25 leukocyte esterase and positive nitrates. She was started on Macrobid overnight by the night physician. We will continue and monitor urine culture. Remains afebrile -She was cleared of her suicidal ideation by social work DVT: Low risk Inpatient E&M: 11686 Subs Hosp L2
[2020-04-17 12:44] LABS: Hep B Surface Antibodies Reactive (.); Hepatitis B Core Ab Total Positive (Negative)
[2020-04-17 13:03] LABS: Hepatitis A IgM Antibody Negative (Negative)
[2020-04-17 15:05] VITALS: BP 89/48; PULSE 73; RESP 18; TEMP 36.7; O2SAT 100
[2020-04-17 17:05] VITALS: BP 97/52; PULSE 80; RESP 18; TEMP 36.3; O2SAT 95
[2020-04-17 22:35] VITALS: BP 96/75; PULSE 84; RESP 18; TEMP 36.6; O2SAT 97
[2020-04-17] MEDS: Nicotine Polacrilex 2 MG GUM PO (23:42)
[2020-04-18] MEDS: cloNIDine HCl 0.1 MG Tablet PO ×2 (00:02→21:01)
[2020-04-18 00:04] VITALS: BP 113/84; PULSE 84; RESP 18; TEMP 36.5; O2SAT 97
[2020-04-18 05:00] VITALS: BP 107/65; PULSE 81; RESP 18; TEMP 36.4; O2SAT 96
[2020-04-18 07:59] VITALS: BP 122/62; PULSE 75; RESP 14; TEMP 36.4; O2SAT 98
[2020-04-18] MEDS: Ibuprofen 400 MG Tablet PO (08:00)
[2020-04-18] MEDS: Nitrofurantoin Macrocrystals 100 MG Capsule PO (08:10)
[2020-04-18] MEDS: Polyethylene Glycol 3350 17 GM PACKET PO ×2 (08:10→21:01)
[2020-04-18] MEDS: Acyclovir 200 MG Capsule 400 MG PO ×2 (08:11→21:01)
--- NOTE | 2020-04-18 08:32 | NURSING ---
pt roused from sleep for assess by this RN. pt immediately began screaming for prn medications. When this RN asked re s/s, pt cont yelling I have them all, every one. Just give them all to me. She resisted this RNs attempt to complete physical assess. This RN explained necessity for assess and VS in order for meds. When she cont screaming obscenities, this RN notified pt to turn separations scientist light when she was prepared to cooperate w/care and then exited room. The pt followed RN into the lipscomb cont to yell obscenities. She then returned to room. AFter several minutes she turned on her call light. since then she has been cooperative w/care, polite. She indicates understanding that another outburst like above will result in her discharge from the hospital.
[2020-04-18] MEDS: Methocarbamol 750 MG Tablet 1500 MG PO ×3 (08:58→22:54)
[2020-04-18] MEDS: Phenobarbital 32.4 MG Tablet PO ×3 (11:55→21:01)
[2020-04-18] MEDS: Gabapentin 600 MG Tablet PO ×3 (11:55→21:00)
--- NOTE | 2020-04-18 12:47 | PN_ITS ---
Patient Problems: Active and Suspected Problems (Last Reviewed 07/10/19 @ 13:[address] Smith Magdaleno MD) Methamphetamine abuse (Acute) Opiate withdrawal (Acute) Subjective: No issues overnight. Tolerating the withdrawal protocol. Aware that she has chronic hep C and she cannot get treatment until she stops using drugs. She a lso tested positive for hepatitis A antibodies Vitals/I&O's: Vital Signs Temp Pulse Resp BP Pulse Ox 97.6 F L 75 14 122/62 H 98 04/18/20 07:59 04/18/20 07:59 04/18/20 07:59 04/18/20 07:59 04/18/20 07:59 Oxygen Delivery Method Room Air Weight: 108 lb 11.006 oz Body Mass Index (BMI) 21.9 Intake and Output for Last 24 Hours 04/16/20 04/17/20 04/18/20 23:59 23:59 23:59 Intake Total 480 / 960 1920 / 1920 600 / 600 Output Total 0 / 0 Balance 480 / 960 1920 / 1920 600 / 600 General: Alert, Oriented x3, Cooperative, No apparent distress HEENT: Atraumatic, PERRLA, EOMI, Normocephalic Oral: Moist Mucosa Neck: Supple, No JVD Lungs: Clear to auscultation, Normal air movement, No rhonchi, No wheeze, No rales Cardiovascular: Regular rate, Regular Rhythm, Normal S1, Normal S2, No murmurs Abdomen: Soft, Non Tender, Non-Distended, No Hepato-splenomegaly Extremities: No edema, Capillary Refill Less than 3 Seconds Skin: No rashes, No breakdown Neurological: Neuro grossly intact, Sensory exam intact to light touch and pain Psych/Mental Status: Erratic behavior at times, normal affect Microbiology Past 72 Hours 04/16/20 00:30 Urine, Clean Catch Urine Culture - Preliminary Culture exhibits no growth. Laboratory Results 04/16/20 09:45: Hepatitis A IgM Ab Negative Current Medications Acetaminophen (Acetaminophen 500 Mg Tablet) 500 mg PO Q6H PRN PRN PRN Reason: pain 1-10/fever >=100.4F Last Admin: 04/17/20 22:33 Dose: 500 mg Documented by: Acyclovir (Acyclovir 200 Mg Capsule) 400 mg PO BID AUSTYN Last Admin: 04/18/20 08:11 Dose: 400 mg Documented by: Clonidine (Clonidine Hcl 0.1 Mg Tablet) 0.1 mg PO Q8H PRN PRN PRN Reason: RESTLESSNESS Last Admin: 04/18/20 00:02 Dose: 0.1 mg Documented by: Dicyclomine HCl (Dicyclomine 10 Mg Capsule) 20 mg PO Q6H PRN PRN PRN Reason: Abdominal Discomfort Gabapentin (Gabapentin 600 Mg Tablet) 600 mg PO Q8 [facility] Last Admin: 04/18/20 11:55 Dose: 600 mg Documented by: Hydroxyzine Pamoate (Hydroxyzine Elizabeth 25 Mg Capsule) 50 mg PO Q6H PRN PRN PRN Reason: mild anxiety Last Admin: 04/17/20 22:33 Dose: 50 mg Documented by: Ibuprofen (Ibuprofen 400 Mg Tablet) 400 mg PO Q6H PRN PRN PRN Reason: Pain 1-10 or Fever Last Admin: 04/17/20 17:12 Dose: 400 mg Documented by: Loperamide HCl (Loperamide 2 Mg Capsule) 2 mg PO Q4H PRN PRN PRN Reason: LOOSE STOOLS Melatonin (Melatonin 3 Mg Tablet) 3 mg PO QHS PRN PRN PRN Reason: INSOMNIA Methocarbamol (Methocarbamol 750 Mg Tablet) 1,500 mg PO Q6H PRN PRN PRN Reason: MUSCLE SPASM Last Admin: 04/18/20 08:58 Dose: 1,500 mg Documented by: Nicotine (Nicotine 21 Mg Patch) 21 mg TD DAILY [facility] Last Admin: 04/18/20 08:12 Dose: 21 mg Documented by: Nicotine Polacrilex (Nicotine Polacrilex 2 Mg Gum) 2 mg PO Q2H PRN PRN PRN Reason: nicotine cravings Last Admin: 04/17/20 23:42 Dose: 2 mg Documented by: Nitrofurantoin Macrocrystals (Nitrofurantoin Macrocrystals 100 Mg Capsule) 100 mg PO BID [facility] Last Admin: 04/18/20 08:10 Dose: 100 mg Documented by: Ondansetron HCl (Ondansetron 8 Mg Tablet) 8 mg PO Q8H PRN PRN PRN Reason: NAUSEA Last Admin: 04/16/20 13:28 Dose: 8 mg Documented by: Ondansetron HCl (Ondansetron 4 Mg/2 Ml Vial) 4 mg IV Q8H PRN PRN PRN Reason: NAUSEA/VOMITING Phenobarbital (Phenobarbital 32.4 Mg Tablet) 32.4 mg PO TID [facility] Last Admin: 04/18/20 11:55 Dose: 32.4 mg Documented by: Polyethylene Glycol (Polyethylene Glycol 3350 17 Gm Packet) 17 gm PO BID [facility] Last Admin: 04/18/20 08:10 Dose: 17 gm Documented by: Sodium Chloride (0.9% Saline Lock 10 Ml Syringe) 10 - 40 ml IV UD PRN PRN Reason: SALINE FLUSH Trazodone HCl (Trazodone 100 Mg Tablet) 100 mg PO QHS PRN PRN PRN Reason: INSOMNIA Medical Necessity - Tobacco Use Smoking Status: Current every day smoker Tobacco Use: Cigarettes Assessment/Plan All Active Problems (Last Reviewed 07/10/19 @ 13:[address] Smith Magdaleno MD) Methamphetamine abuse (Acute) Bursitis of shoulder, left (Acute) Recurrent infections (Resolved) Hives (Resolved) Drug abuse (Acute) Carpal tunnel syndrome (Acute) UTI (urinary tract infection) (Resolved) Severe sepsis (Acute) UTI (urinary tract infection) (Acute) Toxic encephalopathy (Acute) Opiate withdrawal (Acute) Overdose (Resolved) 1. 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, meth and Suboxone/borderline personality disorder/chronic hepatitis C -We will continue with the opiate withdrawal protocol, will meet with one eighty today -She did agree to the rules of the program -She will likely need to follow-up as an outpatient with psychiatry for her personality disorder as this is a significant barrier to appropriate care -She understands she will need to quit IV drug use if she wants to get treatment for chronic hepatitis -Plan for outpatient 180 on Monday, she request to stay until then. -UA with no bacteria, 25 leukocyte esterase and positive nitrates. She was started on Macrobid. Urine culture with no growth therefore discontinue antibiotics -She was cleared of her suicidal ideation by social work DVT: Low risk Inpatient E&M: [id number] Subs Hosp L2
[2020-04-18 14:23] VITALS: BP 101/57; PULSE 76; RESP 16; TEMP 37; O2SAT 97
[2020-04-18] MEDS: Acetaminophen 500 MG Tablet PO (14:33)
[2020-04-18 20:53] VITALS: BP 113/64; PULSE 85; RESP 20; TEMP 35.9; O2SAT 97
[2020-04-18] MEDS: Nicotine Polacrilex 2 MG GUM PO ×2 (21:00→22:54)
[2020-04-18] MEDS: hydrOXYzine PAM 25 MG Capsule 50 MG PO (22:56)
[2020-04-19 04:00] VITALS: BP 93/54; PULSE 85; RESP 16; TEMP 35.8; O2SAT 97
[2020-04-19] MEDS: Nicotine Polacrilex 2 MG GUM PO (04:15)
[2020-04-19] MEDS: Phenobarbital 32.4 MG Tablet PO (05:09)
[2020-04-19] MEDS: Gabapentin 600 MG Tablet PO (05:09)
[2020-04-19] MEDS: Methocarbamol 750 MG Tablet 1500 MG PO (05:10)
[2020-04-19] MEDS: Polyethylene Glycol 3350 17 GM PACKET PO (08:43)
[2020-04-19] MEDS: Acyclovir 200 MG Capsule 400 MG PO (08:44)
[2020-04-19] MEDS: Acetaminophen 500 MG Tablet PO (08:51)
[2020-04-19] MEDS: hydrOXYzine PAM 25 MG Capsule 50 MG PO (08:52)
[2020-04-19] MEDS: cloNIDine HCl 0.1 MG Tablet PO (08:52)
[2020-04-19 09:16] VITALS: BP 127/75; PULSE 76; RESP 18; TEMP 36.9; O2SAT 96
--- NOTE | 2020-04-19 09:17 | NURSING ---
@9am, pt belligerant about going home. unwilling to stay until d/c home tomorow for 180 outpt Rx, signed AMA form, screaming from pt in room 114 heard at desk by other staff and patients on unit, pt dressed peacefully when informed that we would call for a police escort if needed, pt proceeded to main desk, awaiting ride, pt has her phone also along w/ belongings that were locked in box
--- NOTE | 2020-04-19 11:51 | PCM.PN.HOSP ---
Patient Problems: Active and Suspected Problems (Last Reviewed 07/10/19 @ 13:[address] Smith Magdaleno MD) Methamphetamine abuse (Acute) Opiate withdrawal (Acute) Subjective: She has had multiple outbursts over the last 24 to 48hours this morning she was upset because he would not let her use her phone Vitals/I&O's: Vital Signs Temp Pulse Resp BP Pulse Ox 98.4 F 76 18 127/75 H 96 04/19/20 09:16 04/19/20 09:16 04/19/20 09:16 04/19/20 09:16 04/19/20 09:16 Oxygen Delivery Method Room Air Weight: 108 lb 11.006 oz Body Mass Index (BMI) 21.9 Intake and Output for Last 24 Hours 04/17/20 04/18/20 04/19/20 23:59 23:59 23:59 Intake Total 1919 / 1859 120 / 120 Balance 1919 120 / 120 General: Alert, Oriented x3, Cooperative, No apparent distress HEENT: Atraumatic, PERRLA, EOMI, Normocephalic Oral: Moist Mucosa Neck: Supple, No JVD Lungs: Clear to auscultation, Normal air movement, No rhonchi, No wheeze, No rales Cardiovascular: Regular rate, Regular Rhythm, Normal S1, Normal S2, No murmurs Abdomen: Soft, Non Tender, Non-Distended, No Hepato-splenomegaly Extremities: No edema, Capillary Refill Less than 3 Seconds Skin: No rashes, No breakdown Neurological: Neuro grossly intact, Sensory exam intact to light touch and pain Psych/Mental Status: Erratic behavior at times, normal affect Microbiology Past 72 Hours 04/16/20 00:30 Urine, Clean Catch Urine Culture - Final Culture exhibits no growth. STROKE Vital Signs/Narrative: Vital Signs Temp Pulse Resp BP Pulse Ox 04/19/20 09:16 98.4 F 76 18 127/75 H 96 Medical Necessity - Tobacco Use Smoking Status: Current every day smoker Tobacco Use: Cigarettes Assessment/Plan All Active Problems (Last Reviewed 07/10/19 @ 13:[address] Smith Magdaleno MD) Methamphetamine abuse (Acute) Bursitis of shoulder, left (Acute) Recurrent infections (Resolved) Hives (Resolved) Drug abuse (Acute) Carpal tunnel syndrome (Acute) UTI (urinary tract infection) (Resolved) Severe sepsis (Acute) UTI (urinary tract infection) (Acute) Toxic encephalopathy (Acute) Opiate withdrawal (Acute) Overdose (Resolved) 1. 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, meth and Suboxone/borderline personality disorder/chronic hepatitis C -We will continue with the opiate withdrawal protocol, will meet with one eighty today -She did agree to the rules of the program -She will likely need to follow-up as an outpatient with psychiatry for her personality disorder as this is a significant barrier to appropriate care -She understands she will need to quit IV drug use if she wants to get treatment for chronic hepatitis -Plan for outpatient 180 on Monday, she request to stay until then. -UA with no bacteria, 25 leukocyte esterase and positive nitrates. She was started on Macrobid. Urine culture with no growth therefore discontinue antibiotics -She was cleared of her suicidal ideation by social work DVT: Low risk Inpatient E&M: [id number] Subs Hosp L2
== END 2020-04-19 09:17 | disposition left against medical advice (07) | DRG 770 ==
LOC: ED 09:12 → PCU 09:44
PROVIDERS: Admitting Provider Family Medicine; Emergency Provider Emergency Medicine; Visit Provider Family Medicine
DX: F11.23 Opioid dependence with withdrawal (principal); F15.10 Other stimulant abuse, uncomplicated; B18.2 Chronic viral hepatitis C; F23 Brief psychotic disorder; R45.851 Suicidal ideations; M79.7 Fibromyalgia; J42 Unspecified chronic bronchitis; R56.9 Unspecified convulsions; M19.90 Unspecified osteoarthritis, unspecified site; F60.3 Borderline personality disorder; F31.9 Bipolar disorder, unspecified; F17.210 Nicotine dependence, cigarettes, uncomplicated; Z79.899 Other long term (current) drug therapy
CPT/HCPCS: 36415; 80053; 80307; 81001; 82077; 84703; 85025; 86704; 86705; 86706; 86708; 86709; 86803; 87086; 87340; 99283

== ENCOUNTER 2020-06-07 21:06 | Emergency (ER) | payer MEDICAID, SELFPAY ==
[2020-06-07 21:09] VITALS: BP 105/82; PULSE 94; RESP 17; TEMP 35.5; O2SAT 94; BMI 25.4
[2020-06-07 22:05] LABS: Absolute Lymphocyte Count 3.41 X10^3/uL (0.83-4.51); Absolute Neutrophil Count 7.1 X10^3/uL (2.0-7.7); Basophil# 0.06 X10^3/uL; Basophil% 0.5 % (0-1); Eosinophil# 0.05 X10^3/uL; Eosinophils% 0.4 % (0-5); Hematocrit 38.1 % (37-47); Hemoglobin 12.5 g/dL (12.0-15.0); Lymphocyte # 3.41 X10^3/ul (4.0); Lymphocyte % 29.9 % (19-41); Mean Corp Hgb Conc 32.8 g/dL (32-36); Mean Corpuscular Hgb 29.3 pg (27.0-32.0); Mean Corpuscular Volume 89.2 fL (81-99); Mean Platelet Vol. 9.5 fl (6.2-12.0); Monocyte# 0.71 X10^3/uL; Monocyte% 6.2 % (0-10); NRBC Flagged by Analyzer 0 % (0-5); Neutrophil # 7.14 X10^3/uL (2.7-7.7); Neutrophil % 62.6 % (47-70); Platelet Count 309 K/mm3 (150-450); RBC Distribution Width CV 12.5 % (11.6-14.6); RBC Distribution Width SD 40.8 fl (35.1-43.9); Red Blood Count 4.27 M/mm3 (4.2-5.4); White Blood Count 11.4 K/mm3 (4.4-11.0)
--- NOTE | 2020-06-07 22:12 | ED.VISSUMM ---
- ER Visit Summary Date of Service: 06/07/20 Chief Complaint: Abnormal behavior History of Present Illness: The patient is a 25 F with no primary care physician. Per EMS they were called to a hotel because the patient was screaming in her room you killed my baby. The neighbors room actually called the police. Patient reports that she has vaginal bleeding that began today. I am unable to ascertain how much she has bleeding. She is uncooperative and clearly under the influence of some drug. Physical Examination: Vitals: Stable. Afebrile. General: Well-nourished and well-developed. Head: Normocephalic atraumatic. Neck: Supple, no lymphadenopathy. No JVD. Nontender. Cardiovascular: Regular rate and rhythm. No murmurs. Respiratory: No respiratory distress. Clear to auscultation bilaterally. Abdominal: Soft, nontender, nondistended, normal bowel sounds. No guarding, rebound, or peritoneal signs. Back: Nontender. Extremities: Nontender, no edema. Skin: Normal color, no rash. Neurologic: Alternates between alert and agitated and nodding off. She arouses to voice. Normal strength and sensation. Normal gait. Psych: Unable to assess. She does have flight of ideas and tangential thought. Test Results: CBC shows a white count of 11.4. Chem-7 is normal. LFTs are normal. test is negative. Tox panel shows opiates. Alcohol is negative. Emergency Department Course and Treatment: Chart review shows the patient was admitted last month for detox from heroin and methamphetamine. During that stay she complained of suicidal ideation. However, she was seen by social work and not felt to need hospitalization for this. Patient was observed over the course of 2 hours in the emergency department. Is now alert and agitated. She called the hotel who will not allow her to return there. Once she is more alert she adamantly denies any suicidal ideation. Treatment Plan: Patient is adamant that she wants to leave. She denies drug abuse. She does not want detox. She will be discharged instructions follow-up 180 soon as possible. Return to the emergency department for any worsening symptoms. Disposition: To home in improved and stable condition. Impression: 1. Polysubstance abuse. This note was generated with [employer] dictation software. It may contain incorrect words, spelling, and punctuation that were not noted in review of the chart prior to signing ED Disposition - Plan for ED Patient: Instructions: ED Drug Abuse Referrals: [facility] [STAFF PHYSICIAN] - As soon as possible
[2020-06-07 22:20] LABS: ALB/GLOB Ratio 1.1 RATIO (0.9-2.4); AST(SGOT) 31 U/L (15-37); Alanine Aminotransfer ALT/SGPT 53 U/L (13-56); Albumin, Serum 4.2 g/dL (3.2-5.0); Alkaline Phosphatase 72 U/L (45-117); Anion Gap 7 (5-15); BUN 7 mg/dL (7-18); Chloride 105 mmol/L (98-107); Creatinine, Serum 0.78 mg/dL (0.55-1.02); EST Glomerular Filtration Rate 94 mL/min (>60); Est Glom Filt Rate - Afr Amer 114 mL/min (>60); Estimated Creatinine Clearance 97.66 ml/min; Globulin 3.8 g/dL (2.2-4.2); Glucose 102 mg/dL (74-106); Potassium 3.5 mmol/L (3.5-5.1); Sodium Level 139 mmol/L (136-145)
[2020-06-07 22:22] LABS: Amphetamine Urine VISTA NEGATIVE (<1000 ng/mL); Barbiturate Urine VISTA NEGATIVE (< 200 ng/mL); Benzodiazepine Urine VISTA NEGATIVE (< 200 ng/mL); Cocaine Urine VISTA NEGATIVE (< 300 ng/mL); Ecstacy Urine VISTA NEGATIVE (< 500 ng/mL); Methadone Urine VISTA NEGATIVE (< 300 ng/mL); PCP Urine VISTA NEGATIVE (< 25 ng/mL); THC Urine VISTA NEGATIVE (< 50 ng/mL); Vista UDS pH Range 6
[2020-06-07 22:23] LABS: Internal QC Validated? YES +Cl - CLEAR BKGD; Pregnancy, Serum, hCG Quali. NEGATIVE Negative
[2020-06-07 22:38] LABS: Alcohol, Blood (Medical)-Serum < 3.0 mg/dL
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
--- NOTE | 2020-06-07 22:59 | NURSING ---
Patient states she cannot wait for her papers and wants to leave and is leaving now without papers. Dr Barajas is aware patient is leaving.
[2020-06-07 23:00] VITALS: PULSE 78; RESP 18
== END 2020-06-07 23:03 | disposition home or self-care (01) ==
PROVIDERS: Emergency Provider Emergency Medicine
DX: F19.10 Other psychoactive substance abuse, uncomplicated (principal); R45.1 Restlessness and agitation; N93.9 Abnormal uterine and vaginal bleeding, unspecified; M79.7 Fibromyalgia; Z72.0 Tobacco use; Z79.899 Other long term (current) drug therapy
CPT/HCPCS: 80053; 80307; 82077; 84703; 85025; 99284

== ENCOUNTER 2020-06-08 09:22 | Observation (INO) | payer MEDICAID, SELFPAY ==
[2020-06-07 21:09] VITALS: BMI 25.4
[2020-06-08 09:24] VITALS: BP 91/61; PULSE 93; RESP 24; TEMP 36; O2SAT 99; BMI 24.0
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
--- NOTE | 2020-06-08 14:00 | CM.ED ---
SOCIAL WORK Referral Source: Dr. Hubbard Reason for Consult: Substance Abuse Met with patient and patient's significant other in room. Introduced role and reason for referral. Patient here due to overdose. Patient laying in bed with head covered by blankets. Patient open to talking with this worker. Patient requesting detox. Patient states has been here for detox in the past. Reviewed [facility] and informed of agreement that will need signed. Informed belongings will be locked up and no visitors. Patient in agreement and verbalized understanding. Dr. Hubbard updated on the above. Serene Calixto, SENIOR MORTGAGE UNDERWRITER, WIRE DRAWING DIE MAKER
[2020-06-08 14:57] VITALS: BP 78/54; PULSE 66; RESP 16; TEMP 36.7; O2SAT 98
[2020-06-08 15:10] LABS: Absolute Lymphocyte Count 1.53 X10^3/uL (0.83-4.51); Absolute Neutrophil Count 9.5 X10^3/uL (2.0-7.7); Basophil# 0.03 X10^3/uL; Basophil% 0.3 % (0-1); Eosinophil# 0.01 X10^3/uL; Eosinophils% 0.1 % (0-5); Hemoglobin 11.9 g/dL (12.0-15.0); Lymphocyte # 1.53 X10^3/ul (4.0); Mean Corp Hgb Conc 33.1 g/dL (32-36); Mean Corpuscular Hgb 29.6 pg (27.0-32.0); Mean Corpuscular Volume 89.6 fL (81-99); Mean Platelet Vol. 9.4 fl (6.2-12.0); Monocyte# 0.65 X10^3/uL; Monocyte% 5.5 % (0-10); NRBC Flagged by Analyzer 0 % (0-5); Neutrophil # 9.53 X10^3/uL (2.7-7.7); Neutrophil % 80.8 % (47-70); Platelet Count 271 K/mm3 (150-450); RBC Distribution Width CV 12.6 % (11.6-14.6); RBC Distribution Width SD 41.5 fl (35.1-43.9); Red Blood Count 4.02 M/mm3 (4.2-5.4); White Blood Count 11.8 K/mm3 (4.4-11.0)
[2020-06-08 15:27] LABS: Alcohol, Blood (Medical)-Serum < 3.0 mg/dL
[2020-06-08 15:31] LABS: ALB/GLOB Ratio 1.1 RATIO (0.9-2.4); AST(SGOT) 39 U/L (15-37); Alanine Aminotransfer ALT/SGPT 60 U/L (13-56); Albumin, Serum 3.7 g/dL (3.2-5.0); Alkaline Phosphatase 68 U/L (45-117); Anion Gap 6 (5-15); BUN 9 mg/dL (7-18); BUN/Creat Ratio 11.8 RATIO (10-20); Calcium,Total 8.7 mg/dL (8.5-10.1); Chloride 103 mmol/L (98-107); Creatinine, Serum 0.76 mg/dL (0.55-1.02); EST Glomerular Filtration Rate 97 mL/min (>60); Est Glom Filt Rate - Afr Amer 117 mL/min (>60); Estimated Creatinine Clearance 94.96 ml/min; Globulin 3.4 g/dL (2.2-4.2); Glucose 147 mg/dL (74-106); Internal QC Validated? YES +Cl - CLEAR BKGD; Potassium 3.2 mmol/L (3.5-5.1); Pregnancy, Serum, hCG Quali. NEGATIVE Negative; Protein, Total 7.1 g/dL (6.4-8.2); Sodium Level 137 mmol/L (136-145)
[2020-06-08 16:17] VITALS: BMI 24.1
--- NOTE | 2020-06-08 16:36 | HP.PCM_ITS ---
Problem List (1) Depression Status: Chronic (2) Drug abuse Status: Chronic Comment: heroin and cocaine (3) Bipolar disorder Status: Chronic Qualifiers: (4) Opiate withdrawal Status: Acute (5) Borderline personality disorder Status: Chronic (6) Fibromyalgia Status: Chronic History of Present Illness Date of Admission: 06/08/20 Chief Complaint: Drug overdose. The patient is a 25 year old F with past medical history as mentioned above presented to the emergency room because of drug overdose. Reportedly, patient was at a hotel where patient was found unresponsive and EMS was called. She was given Narcan and she woke up. During the encounter, patient was very rude. I mentioned to her that she left AGAINST MEDICAL ADVICE last time when she was in the hospital on April,. She stated that she snorted mixture of fentanyl and heroin today morning. She stated that she stayed supple for 2 weeks after she left the hospital AMA on April 19, 2020. She relapsed using heroin and fentanyl for the last couple of days. She did complain of being anxious, complains of abdominal cramps with nausea. In the emergency department, she was afebrile, blood pressure was borderline, other vital signs were stable. Routine blood work was remarkable for minimal leukocytosis, hemoglobin of 11.9 g/dL which is chronic, potassium is 3.2. LFT revealed slightly elevated liver transaminases, bilirubin and alk phos were normal. Serum test was negative. Blood alcohol level was less than 3. Urine drug screen was ordered but not done yet. She is being admitted for acute opioid withdrawal for medical stabilization. Past Medical History Past Medical History (Chronic Problems): Chronic Problems (Last Updated 06/08/20 @ 16:[address] Bharathi Cole MD) Depression (Chronic) Drug abuse (Chronic) heroin and cocaine Bipolar disorder (Chronic) Borderline personality disorder (Chronic) HPV (human papilloma virus) infection (Chronic) Fibromyalgia (Chronic) Hypotension (Chronic) Low potassium syndrome (Chronic) Vitamin deficiency (Chronic) Seizures (Chronic) Carpal tunnel syndrome (Chronic) Seasonal allergies (Chronic) Medical History: Medical History (Last Updated 06/08/20 @ 16:[address] Bharathi Cole MD) HPV (human papilloma virus) infection (Chronic) B97.7 Fibromyalgia (Chronic) M79.7 Low potassium syndrome (Chronic) E87.6 Vitamin deficiency (Chronic) E56.9 Seizures (Chronic) R56.9 Carpal tunnel syndrome (Chronic) G56.00 Seasonal allergies (Chronic) J30.2 Allergies clindamycin Allergy (Mild, Verified 06/08/20 09:23) Unknown nickel [Nickel] Allergy (Verified 06/08/20 09:23) Unknown Penicillins Allergy (Verified 06/08/20 09:23) Shortness of breath dicyclomine [From Bentyl] Adverse Reaction (Verified 06/08/20 16:30) cramps, constipation, chest pain doxycycline Adverse Reaction (Verified 06/08/20 09:23) Vomiting metronidazole [From Flagyl] Adverse Reaction (Verified 06/08/20 09:23) Upset Stomach sulfamethoxazole [From Bactrim] Adverse Reaction (Verified 06/08/20 09:23) Upset Stomach trimethoprim [From Bactrim] Adverse Reaction (Verified 06/08/20 09:23) Upset Stomach Home Medications: Ambulatory Orders Medication Instructions Recorded acyclovir 400 mg tablet 400 mg PO BID PRN 02/26/19 polyethylene glycol 3350 17 17 g PO BID PRN 02/26/19 gram/dose oral powder Baclofen [Lioresal] 10 mg PO TIDCM PRN 06/08/20 Gabapentin [Neurontin] 400 mg PO BIDCM 06/08/20 Gabapentin [Neurontin] 800 mg PO QHS 06/08/20 Norethindrone-E.estradiol-Iron 1 each PO DAILY 06/08/20 [Arian Fe 1-20 Tablet] Pregabalin [Lyrica] 75 mg PO BID 06/08/20 Surgical History: Surgical History (Last Reviewed 07/10/19 @ 13:[address] Smith Magdaleno MD) HISTORY NECK INJECTIONS History of Z87.59 2017 - d & c History of appendectomy Z90.49 1999 History of colonoscopy Z98.890 History of shoulder surgery Z98.890 2016 Psychiatric History: Bipolar - maybe...there is a question zach after BPD on the notes from the counselling center. she carries a definite diagnosis of Borderline personality disorder., Depression AUTOMATION APPLICATION ENGINEER History: No pertinent AUTOMATION APPLICATION ENGINEER history Smoking Status: Current every day smoker Tobacco Use: Cigarettes Drugs: Heroin, - - Fentanyl. - *Family History Maternal Family History: Family History (Last Reviewed 07/10/19 @ 13:[address] Smith Magdaleno MD) Father Diabetes Grandfather Diabetes Grandmother Diabetes Other Alcoholism Allergies Anxiety Anxiety and depression Arthritis Asthma defect Bowel disease CVA (cerebral vascular accident) Heart disease High cholesterol Hypertension Kidney disease Liver disease Mental disorder Myocardial infarction Psychiatric care History Items: - - Drug abuse Paternal Family History: Family History (Last Reviewed 07/10/19 @ 13:[address] Smith Magdaleno MD) Father Diabetes Grandfather Diabetes Grandmother Diabetes Other Alcoholism Allergies Anxiety Anxiety and depression Arthritis Asthma defect Bowel disease CVA (cerebral vascular accident) Heart disease High cholesterol Hypertension Kidney disease Liver disease Mental disorder Myocardial infarction Psychiatric care Review of Systems Constitutional: Reports: Malaise. Denies: Anorexia, Chills, Fever, Weakness Eyes: Denies: Blurred vision, Double vision, Drainage, Redness HEENT: Denies: Difficulty Hearing, Ear Pain, Eye Pain, Nasal Congestion, Sore Throat Cardiovascular: Denies: Chest Pain, Claudication, Chest Pressure, Edema, Heaviness, Palpitations, Syncope Respiratory: Denies: Cough, Pleuritic Pain, Shortness of Breath, Sputum production, Wheezing Gastrointestinal: Reports: Abdominal Pain, Nausea. Denies: Constipation, Diarrhea, Vomiting Genitourinary: Denies: Dysuria, Frequency, Hematuria Musculoskeletal: Denies: Arm Pain, Back Pain, Foot Pain Skin: Denies: Dryness, Rash Neurological: Denies: Balance problems, Double vision, Change in Speech, Slurred speech, Confusion, Headaches, Incoordination, Numbness Psychiatric: Reports: Anxiety, Depression Endocrine: Denies: Change in Body Habitus, Polydipsia, Polyuria VTE Information - Inpt Only VTE Present on Admission: No VTE Mechan Device Prophylaxis: None VTE Pharm Prophylaxis ordered?: No Patient Problems: Active and Suspected Problems (Last Updated 06/08/20 @ 16:[address] Bharathi Cole MD) Opiate withdrawal (Acute) - Physical Exam Vitals/I&O's: Vital Signs Temp Pulse Resp BP Pulse Ox 98.1 F 66 16 78/54 L 98 06/08/20 14:57 06/08/20 14:57 06/08/20 14:57 06/08/20 14:57 06/08/20 14:57 Oxygen Delivery Method Room Air Weight: 119 lb 4.321 oz Body Mass Index (BMI) 24.0 General: Alert, Oriented x3, Cooperative, - - Argumentative. HEENT: Atraumatic, PERRLA, EOMI, Normocephalic Oral: Moist Mucosa, No Gingival or Mucosal Lesions/ Ulcerations Neck: Supple, No JVD, Negative Carotid Bruits, Trachea Midline, Thyroid Normal Size and Texture Lungs: Clear to auscultation, Normal air movement, No rhonchi, No wheeze, No rales Cardiovascular: Regular rate, Regular Rhythm, Normal S1, Normal S2, PMI Normal Abdomen: Bowel Sounds Present, Soft, Non Tender, Non-Distended, No Hepato- splenomegaly Extremities: No clubbing, No cyanosis, No edema Skin: No rashes, No breakdown Lymphatic: No Cervical, Supraclavicular, or Inguinal Adenopathy Neurological: Cranial nerves II-XII grossly intact, Motor Exam 5/5 strength throughout Psych/Mental Status: Anxious, Impulsive, Alert and oriented to time, place, person, mood and affect Laboratory Results 06/08/20 15:00: WBC 11.8 H, RBC 4.02 L, Hgb 11.9 L, Hct 36.0 L, MCV 89.6, MCH 29.6, MCHC 33.1, RDW Std Deviation 41.5, RDW Coeff of Cayden 12.6, Plt Count 271, MPV 9.4, Immature Gran % (Auto) 0.300, Neut % (Auto) 80.8 H, Lymph % (Auto) 13.0 L, Jasper % (Auto) 5.5, Eos % (Auto) 0.1, Baso % (Auto) 0.3, Absolute Neuts (auto) 9.5 H, Absolute Lymphs (auto) 1.53, Nucleated RBC % 0 06/08/20 15:00: Sodium 137, Potassium 3.2 L, Chloride 103, Carbon Dioxide 28.0, Anion Gap 6, BUN 9, Creatinine 0.76, Estim Creat Clear Calc 94.96, Est GFR (MDRD) Af Amer 117, Est GFR (MDRD) Non-Af 97, BUN/Creatinine Ratio 11.8, Glucose 147 H, Calcium 8.7, Total Bilirubin 0.50, AST 39 H, ALT 60 H, Alkaline Phosphatase 68, Total Protein 7.1, Albumin 3.7, Globulin 3.4, Albumin/Globulin Ratio 1.1 06/08/20 15:00: Ethyl Alcohol < 3.0 06/08/20 15:00: Serum , Qual NEGATIVE Assessment/Plan All Active Problems (Last Updated 06/08/20 @ 16:[address] Bharathi Cole MD) Opiate withdrawal (Acute) This is a 25 years old female patient presented to the emergency room because of drug overdose, was given IV Narcan by squad and patient is interested for admission for acute opioid withdrawal for medical stabilization. #1 acute opiate withdrawal: Patient has been snorting heroin and fentanyl. She left AGAINST MEDICAL ADVICE on April 19, 2020. She claimed that she almost finished the program. I explained to the patient that if she is interested in going through medical stabilization again, she needs to follow the protocols. She is agreeable. I explained to her that Subutex will be started once her COWS score for opioid withdrawal is above 8. [facility], initiate opioid withdrawal protocol with tapering Subutex sublingually, as needed Catapres, Neurontin, Vistaril, Imodium, methocarbamol, Zofran and trazodone, replace potassium with p.o. K. Dur 40 mEq x 1, consult 180 program. #2 depression/bipolar disorder: Currently, she is not on any medications. #3 fibromyalgia: Continue baclofen as needed, gabapentin and Lyrica. #4 tobacco abuse: NicoDerm patch. #5 DVT prophylaxis: Low risk patient, no prophylaxis indicated. This note was generated with [employer] dictation software. It may contain incorrect words, spelling, and punctuation that were not noted in checking the note before signing. Inpatient E&M: [id number] Init Hosp L2
--- NOTE | 2020-06-08 16:47 | CM.ED ---
SOCIAL WORK Patient admitted to [facility]. [facility] Treatment Navigator[facility]mero to update on patient's admission. Mary to be in tomorrow to complete assessment. Plan: Admit to [facility]. MS DurgaW, FORESTRY FIRE AID
[2020-06-08 17:00] VITALS: BP 112/74; PULSE 82; RESP 16; O2SAT 99
--- NOTE | 2020-06-08 17:05 | CM.ED ---
SOCIAL WORK Met with patient in room. Patient states wants detox but all my stuff will be thrown out. Patient was staying at [place] [address] with significant other. Patient called the [place] [address] requesting boyfriend come up to obtain belongings. Per patient, they will only let me get it. Informed patient this worker could call and speak with staff at [place] [address], patient states it's fine. I will just go, smoke my cigarette and come back for detox. Nursing and Dr. Hubbard updated. Call to [facility] Treatment NavigatorOmero to update on the above. Serene Calixto, ANIMATION CAMERA OPERATOR, GROUP CONTROLLER
[2020-06-08 17:08] VITALS: BP 112/78; PULSE 82; RESP 16; TEMP 36.7; O2SAT 99
--- NOTE | 2020-06-08 17:15 | ED.RN ---
pt now wanting to leave and not agreeing to stay. pt up in room and fussing about needing a cigarrette and to go and make sure all my stuff isint thrown away and breakfast supervisor for house aware
== END 2020-06-08 17:15 | disposition left against medical advice (07) ==
LOC: ED 14:20 → MS3 17:12
PROVIDERS: Admitting Provider Hospitalist; Emergency Provider Emergency Medicine; Visit Provider Hospitalist
DX: T40.1X1A Poisoning by heroin, accidental (unintentional), initial encounter (principal); Y92.59 Other trade areas as the place of occurrence of the external cause; F11.23 Opioid dependence with withdrawal; M79.7 Fibromyalgia; R23.0 Cyanosis; F60.3 Borderline personality disorder; F31.9 Bipolar disorder, unspecified; R56.9 Unspecified convulsions; Z79.899 Other long term (current) drug therapy; F17.210 Nicotine dependence, cigarettes, uncomplicated
CPT/HCPCS: 80053; 82077; 84703; 85025

== ENCOUNTER 2020-06-08 19:36 | Observation (INO) | payer MEDICAID, SELFPAY ==
[2020-06-08 09:24] VITALS: BMI 24.0
[2020-06-08 19:37] VITALS: BP 133/90; PULSE 94; RESP 18; TEMP 36.1; O2SAT 97; BMI 23.2
[2020-06-08 20:33] LABS: Amphetamine Urine VISTA NEGATIVE (<1000 ng/mL); Barbiturate Urine VISTA NEGATIVE (< 200 ng/mL); Benzodiazepine Urine VISTA NEGATIVE (< 200 ng/mL); Cocaine Urine VISTA NEGATIVE (< 300 ng/mL); Ecstacy Urine VISTA NEGATIVE (< 500 ng/mL); Methadone Urine VISTA NEGATIVE (< 300 ng/mL); PCP Urine VISTA NEGATIVE (< 25 ng/mL); THC Urine VISTA NEGATIVE (< 50 ng/mL); Vista UDS pH Range 6
--- NOTE | 2020-06-08 20:46 | ED.VISSUMM ---
- ER Visit Summary Date of Service: 06/08/20 Chief Complaint: [facility] detox for fentanyl and heroin abuse History of Present Illness: The patient is a 25 F drug abuse, bipolar fibromyalgia and prior appendectomy. Patient was a seen here earlier today and basically negative labs was going to be admitted and had to go back to the hotel get her belongings. She returns to be admitted. She is currently abusing fentanyl and heroin. She has a history of IV drug abuse. Currently she is snorting the drugs. Physical Examination: Well-appearing 25-year-old female no acute distress vital signs stable afebrile. HEENT exam unremarkable. Neck nontender no lymphadenopathy. Lungs clear to auscultation bilaterally. Heart regular rhythm rate about 90 no murmur. Abdomen soft nontender normal bowel sounds no peritoneal signs. Patient moving all 4 extremities. No edema. No cellulitis. No abscesses. Track stanford in both antecubital areas. Back nontender. Neurologically she is awake alert with no focal motor deficits. Test Results: Labs were done earlier today white count of 11. Hemoglobin 11. No bands. Chemistries unremarkable potassium 3.2. Normal gap. Normal creatinine. Liver enzymes basically unremarkable. Emergency Department Course and Treatment: Patient returns for detox. Medically cleared. I spoke to the hospitalist and the patient will be admitted. Treatment Plan: Detox. Disposition: Admission. Impression: [facility] for heroin and fentanyl abuse History of the same This note was generated with [employer] dictation software. It may contain incorrect words, spelling, and punctuation that were not noted in review of the chart prior to signing ED Disposition - Plan for ED Patient: Referrals: Care Physician,No Primary [Primary Care Provider] -
--- NOTE | 2020-06-08 20:51 | CM.ED ---
SOCIAL WORK Call to [facility] Treatment Navigator to update patient returned to ER for detox. [facility] states [facility] will follow up with patient tomorrow. Plan: Admit to [facility] MSW, SHOE STICKS REPAIRER
--- NOTE | 2020-06-08 21:27 | HP.PCM_ITS ---
<Celestina Jansen - Last Filed: 06/08/20 21:27> Problem List (1) Opiate withdrawal Status: Acute (2) Fibromyalgia Status: Chronic (3) Low potassium syndrome Status: Chronic (4) Tobacco abuse Status: Chronic History of Present Illness Date of Admission: 06/08/20 Chief Complaint: Desire for detoxification from opioids The patient is a 25 year old F who presents for detoxification from opioids. Patient was seen in the ER this day after being brought in by ambulance for overdose where she received Narcan. Patient left AMA initially because she had to get her stuff from [facility] before they threw it out and she has now returned. Patient has a history of fibromyalgia, bipolar and hypokalemia. Pat ient tox screen positive for opiates, which she reports she snorts but has a history of IV drug use. Patient denies symptoms at this time, however she reports a history of having diarrhea and vomiting with withdrawal Past Medical History Past Medical History (Chronic Problems): Chronic Problems (Last Reviewed 06/08/20 @ 21:32 by Celestina Jansen, DECORATING INSPECTOR-C) Tobacco abuse (Chronic) Depression (Chronic) Drug abuse (Chronic) heroin and cocaine Bipolar disorder (Chronic) Borderline personality disorder (Chronic) HPV (human papilloma virus) infection (Chronic) Fibromyalgia (Chronic) Hypotension (Chronic) Low potassium syndrome (Chronic) Vitamin deficiency (Chronic) Seizures (Chronic) Carpal tunnel syndrome (Chronic) Seasonal allergies (Chronic) Medical History: Medical History (Last Reviewed 06/08/20 @ 21:32 by Celestina Jansen, DECORATING INSPECTOR-C) HPV (human papilloma virus) infection (Chronic) B97.7 Fibromyalgia (Chronic) M79.7 Low potassium syndrome (Chronic) E87.6 Vitamin deficiency (Chronic) E56.9 Seizures (Chronic) R56.9 Carpal tunnel syndrome (Chronic) G56.00 Seasonal allergies (Chronic) J30.2 Allergies clindamycin Allergy (Mild, Verified 06/08/20 19:39) Unknown nickel [Nickel] Allergy (Verified 06/08/20 19:39) Unknown Penicillins Allergy (Verified 06/08/20 19:39) Shortness of breath dicyclomine [From Bentyl] Adverse Reaction (Verified 06/08/20 19:39) cramps, constipation, chest pain doxycycline Adverse Reaction (Verified 06/08/20 19:39) Vomiting metronidazole [From Flagyl] Adverse Reaction (Verified 06/08/20 19:39) Upset Stomach sulfamethoxazole [From Bactrim] Adverse Reaction (Verified 06/08/20 19:39) Upset Stomach trimethoprim [From Bactrim] Adverse Reaction (Verified 06/08/20 19:39) Upset Stomach Home Medications: Ambulatory Orders Medication Instructions Recorded acyclovir 400 mg tablet 400 mg PO BID PRN 02/26/19 polyethylene glycol 3350 17 17 g PO BID 02/26/19 gram/dose oral powder Baclofen [Lioresal] 10 mg PO TIDCM PRN 06/08/20 Gabapentin [Neurontin] 400 mg PO BIDCM 06/08/20 Gabapentin [Neurontin] 800 mg PO QHS 06/08/20 Norethindrone-E.estradiol-Iron 1 each PO DAILY 06/08/20 [Arian Fe 1-20 Tablet] Pregabalin [Lyrica] 75 mg PO BID 06/08/20 Surgical History: Surgical History (Last Reviewed 06/08/20 @ 21:32 by Celestina Jansen, DECORATING INSPECTOR-C) HISTORY NECK INJECTIONS History of Z87.59 2017 - d & c History of appendectomy Z90.49 1999 History of colonoscopy Z98.890 History of shoulder surgery Z98.890 2016 Surgical History: noncontributory, appendectomy Psychiatric History: Bipolar - maybe...there is a question zach after BPD on the notes from the counselling center. 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 Smith Magdaleno MD) Father Diabetes Grandfather Diabetes Grandmother Diabetes Other Alcoholism Allergies Anxiety Anxiety and depression Arthritis Asthma defect Bowel disease CVA (cerebral vascular accident) Heart disease High cholesterol Hypertension Kidney disease Liver disease Mental disorder Myocardial infarction Psychiatric care History Items: - - Drug abuse Paternal Family History: Family History (Last Reviewed 07/10/19 @ 13:[address] Smith Magdaleno MD) Father Diabetes Grandfather Diabetes Grandmother Diabetes Other Alcoholism Allergies Anxiety Anxiety and depression Arthritis Asthma defect Bowel disease CVA (cerebral vascular accident) Heart disease High cholesterol Hypertension Kidney disease Liver disease Mental disorder Myocardial infarction Psychiatric care History Items: No pertinent history Review of Systems Constitutional: Denies: Chills, Fever, Weight Change HEENT: Denies: Head Aches, Sinus Congestion, Sinus Drainage Cardiovascular: Denies: Chest Pain, Palpitations Respiratory: Denies: Cough, Shortness of breath at rest, Sputum production Gastrointestinal: Denies: Abdominal Pain, Nausea, Vomiting Genitourinary: Denies: Dysuria Musculoskeletal: Denies: Joint Pain, Joint Tenderness Skin: Denies: Rash, Wounds Neurological: Denies: Numbness, Tingling, Focal weakness Psychiatric: Denies: Anxiety, Depression, Homicidal Ideations, Suicidal Idea tions Hematologic/ Lymphatic: Denies: Easy Bruising, Easy Bleeding VTE Information - Inpt Only VTE Present on Admission: No VTE Mechan Device Prophylaxis: None VTE Pharm Prophylaxis ordered?: No Patient Problems: Active and Suspected Problems (Last Reviewed 06/08/20 @ 21:32 by Celestina Jansen NP-C) Opiate withdrawal (Acute) - Physical Exam Vitals/I&O's: Vital Signs Temp Pulse Resp BP Pulse Ox 96.9 F L 94 18 133/90 H 97 06/08/20 19:37 06/08/20 19:37 06/08/20 19:37 06/08/20 19:37 06/08/20 19:37 Oxygen Delivery Method Room Air Weight: 115 lb Body Mass Index (BMI) 23.2 General: Alert, Oriented x3, Cooperative HEENT: Atraumatic, PERRLA, EOMI, Normocephalic Neck: Supple, No JVD, Negative Carotid Bruits Lungs: Clear to auscultation, Normal air movement Cardiovascular: Regular rate, Regular Rhythm, Normal S1, Normal S2, No murmurs Abdomen: Bowel Sounds Present, Soft, Non Tender Extremities: No edema, Capillary Refill Less than 3 Seconds Skin: No rashes, No breakdown Musculoskeletal: No Tenderness to Palpation of Joints or Extremities Neurological: Cranial nerves II-XII grossly intact Psych/Mental Status: Normal Affect, Appropriate, Anxious, Restless Laboratory Results 06/08/20 19:50: Urine Opiates Screen POSITIVE H, Urine Methadone Screen NEGATIVE, Ur Barbiturates Screen NEGATIVE, Ur Phencyclidine Scrn NEGATIVE, Ur Amphetamines Screen NEGATIVE, U Methamphetamin-MDMA NEGATIVE, U Benzodiazepines Scrn NEGATIVE, Urine Cocaine Screen NEGATIVE, U Cannabinoids Screen NEGATIVE, Ur Drug Screen Comment Assessment/Plan All Active Problems (Last Reviewed 06/08/20 @ 21:32 by ELIANA Guidry) Opiate overdose (Acute) Opiate withdrawal (Acute) 1. Opiate withdrawal -Buprenorphine taper ordered per protocol. -Supportive medications ordered per protocol as well. 2. Fibromyalgia -Continue home regimen of gabapentin, Lyrica and baclofen. 3. Hyperkalemia -Potassium chloride 40 mEq p.o. x1. 4. Tobacco abuse -Patient denies need for NicoDerm patch at this time DVT prophylaxis-not indicated This patient was seen by ELIANA Guidry under the supervision of Dr. Blanche devlin. <Kevon Gates - Last Filed: 06/08/20 23:40> History of Present Illness The patient is a 25 year old F [] Past Medical History Medical History: Medical History (Last Reviewed 06/08/20 @ 21:32 by ELIANA Guidry) HPV (human papilloma virus) infection (Chronic) B97.7 Fibromyalgia (Chronic) M79.7 Low potassium syndrome (Chronic) E87.6 Vitamin deficiency (Chronic) E56.9 Seizures (Chronic) R56.9 Carpal tunnel syndrome (Chronic) G56.00 Seasonal allergies (Chronic) J30.2 Allergies clindamycin Allergy (Mild, Verified 06/08/20 19:39) Unknown nickel [Nickel] Allergy (Verified 06/08/20 19:39) Unknown Penicillins Allergy (Verified 06/08/20 19:39) Shortness of breath dicyclomine [From Bentyl] Adverse Reaction (Verified 06/08/20 19:39) cramps, constipation, chest pain doxycycline Adverse Reaction (Verified 06/08/20 19:39) Vomiting metronidazole [From Flagyl] Adverse Reaction (Verified 06/08/20 19:39) Upset Stomach sulfamethoxazole [From Bactrim] Adverse Reaction (Verified 06/08/20 19:39) Upset Stomach trimethoprim [From Bactrim] Adverse Reaction (Verified 06/08/20 19:39) Upset Stomach Surgical History: Surgical History (Last Reviewed 06/08/20 @ 21:32 by ELIANA Guidry) HISTORY NECK INJECTIONS History of Z87.59 2017 - d & c History of appendectomy Z90.49 2000 History of colonoscopy Z98.890 History of shoulder surgery Z98.890 2017 - *Family History Maternal Family History: Family History (Last Reviewed 07/10/19 @ 13:[address] Smith Magdaleno MD) Father Diabetes Grandfather Diabetes Grandmother Diabetes Other Alcoholism Allergies Anxiety Anxiety and depression Arthritis Asthma defect Bowel disease CVA (cerebral vascular accident) Heart disease High cholesterol Hypertension Kidney disease Liver disease Mental disorder Myocardial infarction Psychiatric care Paternal Family History: Family History (Last Reviewed 07/10/19 @ 13:[address] Smith Magdaleno MD) Father Diabetes Grandfather Diabetes Grandmother Diabetes Other Alcoholism Allergies Anxiety Anxiety and depression Arthritis Asthma defect Bowel disease CVA (cerebral vascular accident) Heart disease High cholesterol Hypertension Kidney disease Liver disease Mental disorder Myocardial infarction Psychiatric care - Physical Exam Vitals/I&O's: Vital Signs Temp Pulse Resp BP Pulse Ox 97.9 F 74 18 103/65 94 06/08/20 22:51 06/08/20 22:51 06/08/20 22:51 06/08/20 22:51 06/08/20 22:51 Oxygen Delivery Method Room Air Weight: 49.7 kg Body Mass Index (BMI) 22.1 Laboratory Results 06/08/20 19:50: Urine Opiates Screen POSITIVE H, Urine Methadone Screen NEGATIVE, Ur Barbiturates Screen NEGATIVE, Ur Phencyclidine Scrn NEGATIVE, Ur Amphetamines Screen NEGATIVE, U Methamphetamin-MDMA NEGATIVE, U Benzodiazepines Scrn NEGATIVE, Urine Cocaine Screen NEGATIVE, U Cannabinoids Screen NEGATIVE, Ur Drug Screen Comment Current Medications Baclofen (Baclofen 10 Mg Tablet) 10 mg PO TIDCM PRN PRN Reason: muscle spasms Buprenorphine HCl (Buprenorphine Hcl 2 Mg Tab.Subl) 0 mg SL Q8H AUSTYN; Taper Stop: 06/11/20 21:39 Clonidine (Clonidine Hcl 0.1 Mg Tablet) 0.1 mg PO Q8H PRN PRN PRN Reason: RESTLESSNESS Gabapentin (Gabapentin 400 Mg Capsule) 400 mg PO BIDCM AUSTYN Gabapentin (Gabapentin 800 Mg Tablet) 800 mg PO QHS AUSTYN Last Admin: 06/08/20 22:42 Dose: 800 mg Documented by: Hydroxyzine Pamoate (Hydroxyzine Elizabeth 25 Mg Capsule) 50 mg PO Q6H PRN PRN PRN Reason: mild anxiety Loperamide HCl (Loperamide 2 Mg Capsule) 2 mg PO Q4H PRN PRN PRN Reason: LOOSE STOOLS Methocarbamol (Methocarbamol 750 Mg Tablet) 1,500 mg PO Q6H PRN PRN PRN Reason: MUSCLE SPASM Non-Formulary Medication (Norethindrone-E.Estradiol-Iron [Arian Fe 1-20 Tablet]) 1 each PO DAILY [facility] Nutritional Formula (Lactose Free) (Ensure Enlive 120 Ml Liquid) 120 ml PO 4X/DAY [facility] Ondansetron HCl (Ondansetron 8 Mg Tablet) 8 mg PO Q8H PRN PRN PRN Reason: NAUSEA Polyethylene Glycol (Polyethylene Glycol 3350 17 Gm Packet) 17 gm PO BID [facility] Last Admin: 06/08/20 22:42 Dose: 17 gm Documented by: Pregabalin (Pregabalin 75 Mg Capsule) 75 mg PO BID [facility] Last Admin: 06/08/20 22:47 Dose: 75 mg Documented by: Sodium Chloride (0.9% Saline Lock 10 Ml Syringe) 10 - 40 ml IV UD PRN PRN Reason: SALINE FLUSH Trazodone HCl (Trazodone 100 Mg Tablet) 100 mg PO QHS PRN PRN PRN Reason: INSOMNIA Assessment/Plan Patient was seen and examined. I agree with assessment and plan by Celestina Jansen NP Patient is here for detoxification from heroin and fentanyl. Previously she used to shoot but now she snorts. She has been clean for a while but she relapsed. Reportedly she received Narcan in a.m. of the same day of presentation because of overdose. Alert and oriented x3. Heart sounds S1-S2 present Lung clear to auscultate Abdomen: bowel sounds present, soft nontender nondistended Extremities no edema Desire for detoxification Started on Subutex taper with other adjunctive medications. Inpatient E&M: 07004 Init Hosp L3
[2020-06-08 21:41] VITALS: BMI 22.1
[2020-06-08 22:04] VITALS: BP 136/80; PULSE 96; RESP 18; TEMP 36.1; O2SAT 97
[2020-06-08] MEDS: Potassium Chloride Oral Tablet 20 MEQ 40 MEQ PO (22:41)
[2020-06-08] MEDS: Gabapentin 800 MG Tablet PO (22:42)
[2020-06-08] MEDS: Polyethylene Glycol 3350 17 GM PACKET PO (22:42)
[2020-06-08] MEDS: Pregabalin 75 MG Capsule PO (22:47)
[2020-06-08 22:51] VITALS: BP 103/65; PULSE 74; RESP 18; TEMP 36.6; O2SAT 94
[2020-06-09] MEDS: Methocarbamol 750 MG Tablet 1500 MG PO ×4 (00:04→21:02)
[2020-06-09] MEDS: hydrOXYzine PAM 25 MG Capsule 50 MG PO ×4 (00:05→21:02)
[2020-06-09] MEDS: Baclofen 10 MG Tablet PO ×4 (00:05→22:47)
[2020-06-09 04:21] VITALS: BP 94/57; PULSE 87; RESP 18; TEMP 36.7; O2SAT 100
[2020-06-09] MEDS: Acetaminophen 325 MG Tablet 650 MG PO (04:25)
[2020-06-09] MEDS: Mag Hydrox/Al Hydrox/Simeth 30 ML UDC PO (05:09)
[2020-06-09] MEDS: Buprenorphine HCl 2 MG TAB.SUBL 4 MG SL (06:06)
[2020-06-09 06:37] LABS: Absolute Lymphocyte Count 3.62 X10^3/uL (0.83-4.51); Absolute Neutrophil Count 3.7 X10^3/uL (2.0-7.7); Basophil# 0.04 X10^3/uL; Basophil% 0.5 % (0-1); Eosinophil# 0.21 X10^3/uL; Eosinophils% 2.6 % (0-5); Hematocrit 35.6 % (37-47); Hemoglobin 11.7 g/dL (12.0-15.0); Lymphocyte # 3.62 X10^3/ul (4.0); Lymphocyte % 44.6 % (19-41); Mean Corp Hgb Conc 32.9 g/dL (32-36); Mean Corpuscular Hgb 28.9 pg (27.0-32.0); Mean Corpuscular Volume 87.9 fL (81-99); Mean Platelet Vol. 9.5 fl (6.2-12.0); Monocyte# 0.53 X10^3/uL; Monocyte% 6.5 % (0-10); NRBC Flagged by Analyzer 0 % (0-5); Neutrophil % 45.6 % (47-70); Platelet Count 264 K/mm3 (150-450); RBC Distribution Width CV 12.7 % (11.6-14.6); RBC Distribution Width SD 41.1 fl (35.1-43.9); Red Blood Count 4.05 M/mm3 (4.2-5.4); White Blood Count 8.1 K/mm3 (4.4-11.0)
[2020-06-09 07:08] LABS: AST(SGOT) 36 U/L (15-37); Alanine Aminotransfer ALT/SGPT 59 U/L (13-56); Albumin, Serum 3.3 g/dL (3.2-5.0); Alkaline Phosphatase 64 U/L (45-117); Anion Gap 5 (5-15); BUN 9 mg/dL (7-18); BUN/Creat Ratio 11.7 RATIO (10-20); Calcium,Total 8.8 mg/dL (8.5-10.1); Chloride 106 mmol/L (98-107); Creatinine, Serum 0.77 mg/dL (0.55-1.02); EST Glomerular Filtration Rate 95 mL/min (>60); Est Glom Filt Rate - Afr Amer 115 mL/min (>60); Estimated Creatinine Clearance 86.11 ml/min; Globulin 3.3 g/dL (2.2-4.2); Glucose 114 mg/dL (74-106); Potassium 3.2 mmol/L (3.5-5.1); Protein, Total 6.6 g/dL (6.4-8.2); Sodium Level 139 mmol/L (136-145)
[2020-06-09] MEDS: Neomycin/Bacitracin/Polymyxin Ointment 1 APPLIC TOPICAL ×2 (08:08→21:02)
[2020-06-09] MEDS: Polyethylene Glycol 3350 17 GM PACKET PO ×2 (08:25→21:01)
[2020-06-09] MEDS: Ondansetron 8 MG Tablet PO (08:26)
[2020-06-09] MEDS: Pregabalin 75 MG Capsule PO ×2 (08:26→21:01)
--- NOTE | 2020-06-09 09:25 | ADDICTION ---
This development writer met with PT to complete ASAM, MSE, DUDIT assessments and to plan for d/c. All assessments completed, faxed to [facility] and placed in PT's chart. PT plans to f/u with [facility] for individual counseling and plans to attend AA meetings. No transportation needs noted.
[2020-06-09 10:21] VITALS: BP 110/68; PULSE 88; RESP 18; TEMP 36.6; O2SAT 99
--- NOTE | 2020-06-09 10:40 | PN_ITS ---
Patient Problems: Active and Suspected Problems (Last Reviewed 06/08/20 @ 21:32 by Celestina Jansen, NORAH-C) Opiate withdrawal (Acute) Subjective: Complains about myriad of somatic plaints related with injury, shoulder pain, back pain. States that she is on pregabalin, which is verified through OARRS, and as well as gabapentin. I reviewed the patient's OARRS with her and told her that she has not received gabapentin since July 2019. She did state that she gets it off the street. Told her that since she is on pregabalin that I would not have her on gabapentin. She expressed that is what she got last night and that that is part of our order set for withdrawal. I again informed her that I would not be prescribing gabapentin while someone is already on pregabalin. Told her would not stop repeat gabapentin as she has already been prescribed that by a physician, Dr. Talon Cabral, who she sees for her fibromyalgia. Shows that he has pain management doctor in [place]. She states that she wants to be on a slow taper of Suboxone here. I told her that she is on Subutex. She states that she is not sure if she wants to be on Suboxone. I told her that I can discontinue the Subutex altogether. She then became confrontational saying that we are not treating her addiction by not giving her gabapentin in addition to her pregabalin. She stated that I wanted to put on her another physician service. I never said that I was going to put her on another service but the patient was stating that I was telling her that. I told her that I would transfer her to another physician service starting the if that is what she would prefer. Vitals/I&O's: Vital Signs Temp Pulse Resp BP Pulse Ox 36.7 C 87 18 94/57 L 100 06/09/20 04:21 06/09/20 04:21 06/09/20 04:21 06/09/20 04:06/09/20 04:21 Oxygen Delivery Method Room Air Weight: 49.7 kg Body Mass Index (BMI) 22.1 Intake and Output for Last 24 Hours 06/07/20 06/08/20 06/09/20 23:59 23:59 23:59 Intake Total 200 / 200 Balance 200 / 200 General: Alert, No apparent distress, - - Appears older than stated age HEENT: Atraumatic, Normocephalic Psych/Mental Status: Agitated, Anxious Laboratory Results 06/08/20 19:50: Urine Opiates Screen POSITIVE H, Urine Methadone Screen NEGATIVE, Ur Barbiturates Screen NEGATIVE, Ur Phencyclidine Scrn NEGATIVE, Ur Amphetamines Screen NEGATIVE, U Methamphetamin-MDMA NEGATIVE, U Benzodiazepines Scrn NEGATIVE, Urine Cocaine Screen NEGATIVE, U Cannabinoids Screen NEGATIVE, Ur Drug Screen Comment 06/09/20 06:15: WBC 8.1, RBC 4.05 L, Hgb 11.7 L, Hct 35.6 L, MCV 87.9, MCH 28.9, MCHC 32.9, RDW Std Deviation 41.1, RDW Coeff of [place] 12.7, Plt Count 264, MPV 9.5, Immature Gran % (Auto) 0.200, Neut % (Auto) 45.6 L, Lymph % (Auto) 44.6 H, Dale % (Auto) 6.5, Eos % (Auto) 2.6, Baso % (Auto) 0.5, Absolute Neuts (auto) 3.7, Absolute Lymphs (auto) 3.62, Nucleated RBC % 0 06/09/20 06:15: Sodium 139, Potassium 3.2 L, Chloride 106, Carbon Dioxide 28.0, Anion Gap 5, BUN 9, Creatinine 0.77, Estim Creat Clear Calc 86.11, Est GFR (MDRD) Af Amer 115, Est GFR (MDRD) Non-Af 95, BUN/Creatinine Ratio 11.7, Glucose 114 H, Calcium 8.8, Total Bilirubin 0.50, AST 36, ALT 59 H, Alkaline Phosphatase 64, Total Protein 6.6, Albumin 3.3, Globulin 3.3, Albumin/Globulin Ratio 1.0 Current Medications Acetaminophen (Acetaminophen 325 Mg Tablet) 650 mg PO Q6H PRN PRN PRN Reason: Pain 1-10 or Fever Last Admin: 06/09/20 04:25 Dose: 650 mg Documented by: Al Hydroxide/Mg Hydroxide (Mag Hydrox/Al Hydrox/Simeth 30 Ml Udc) 30 ml PO Q6H PRN PRN PRN Reason: DYSPEPSIA Last Admin: 06/09/20 05:09 Dose: 30 ml Documented by: Baclofen (Baclofen 10 Mg Tablet) 10 mg PO TIDCM PRN PRN Reason: muscle spasms Last Admin: 06/09/20 08:25 Dose: 10 mg Documented by: Buprenorphine HCl (Buprenorphine Hcl 2 Mg Tab.Subl) 4 mg SL Q8H AUSTYN; Taper Stop: 06/12/20 06:44 Last Admin: 06/09/20 06:39 Dose: Not Given Documented by: Clonidine (Clonidine Hcl 0.1 Mg Tablet) 0.1 mg PO Q8H PRN PRN PRN Reason: RESTLESSNESS Hydroxyzine Pamoate (Hydroxyzine Elizabeth 25 Mg Capsule) 50 mg PO Q6H PRN PRN PRN Reason: mild anxiety Last Admin: 06/09/20 06:05 Dose: 50 mg Documented by: Ibuprofen (Ibuprofen 600 Mg Tablet) 600 mg PO Q6H PRN PRN PRN Reason: pain 1-12/20 Loperamide HCl (Loperamide 2 Mg Capsule) 2 mg PO Q4H PRN PRN PRN Reason: LOOSE STOOLS Methocarbamol (Methocarbamol 750 Mg Tablet) 1,500 mg PO Q6H PRN PRN PRN Reason: MUSCLE SPASM Last Admin: 06/09/20 06:05 Dose: 1,500 mg Documented by: Neomycin/Polymyxin/Bacitracin (Neomycin/Bacitracin/Polymyxin Ointment) 1 applic TOPICAL BID PRN; Protocol PRN Reason: abrasion Last Admin: 06/09/20 08:08 Dose: 1 applic Documented by: Nicotine (Nicotine 21 Mg Patch) 21 mg TD DAILY [facility] Last Admin: 06/09/20 01:05 Dose: 21 mg Documented by: Nicotine Polacrilex (Nicotine Polacrilex 4 Mg Gum) 4 mg PO Q2H PRN PRN PRN Reason: nicotine Non-Formulary Medication (Norethindrone-E.Estradiol-Iron [Arian Fe 1-20 Tablet]) 1 each PO DAILY [facility] Nutritional Formula (Lactose Free) (Ensure Enlive 120 Ml Liquid) 120 ml PO 4X/DAY [facility] Last Admin: 06/09/20 08:26 Dose: Not Given Documented by: Ondansetron HCl (Ondansetron 8 Mg Tablet) 8 mg PO Q8H PRN PRN PRN Reason: NAUSEA Last Admin: 06/09/20 08:26 Dose: 8 mg Documented by: Polyethylene Glycol (Polyethylene Glycol 3350 17 Gm Packet) 17 gm PO BID [facility] Last Admin: 06/09/20 08:25 Dose: 17 gm Documented by: Pregabalin (Pregabalin 75 Mg Capsule) 75 mg PO BID [facility] Last Admin: 06/09/20 08:26 Dose: 75 mg Documented by: Sodium Chloride (0.9% Saline Lock 10 Ml Syringe) 10 - 40 ml IV UD PRN PRN Reason: SALINE FLUSH Trazodone HCl (Trazodone 100 Mg Tablet) 100 mg PO QHS PRN PRN PRN Reason: INSOMNIA Medical Necessity - Tobacco Use Smoking Status: Current every day smoker Tobacco Use: Cigarettes Assessment/Plan All Active Problems (Last Reviewed 06/08/20 @ 21:32 by Celestina Jansen, NORAH-C) Opiate overdose (Acute) Opiate withdrawal (Acute) 1. Acute opiate withdrawal: For now, the patient is on the buprenorphine taper as well as other agents to help with other somatic complaints. I am concerned for manipulative behavior guards to obtain other substance such as gabapentin. After exhaustive conversation with her about not giving her pregabalin and gabapentin patient was unsatisfied still continue to demand gabapentin and that we are not adequately treating her withdrawal symptoms.. Patient is giving mix messages about buprenorphine taper stating that she would not want to be slowly tapered. When I stated that I could just completely stop it she medially pivoted to saying that I want to put on her another physician service. I did not state that I was going to put her under another service until patient continued to state that I did. I told her that I would do so on the . So patient will not receive any gabapentin since she is already on pregabalin. I am very concerned that this patient is going to leave AGAINST MEDICAL ADVICE. She I think patient has limited insight in regards to her addiction and I am very concerned the patient has very little interest in actually becoming sober at this time. The patient is to leave AGAINST MEDICAL ADVICE, I discussed with addiction medicine there should be a moratorium before this patient becomes readmitted. Is no formal plan on the inpatient side but since patient left AGAINST MEDICAL ADVICE in April but also on the and there should be at least a 30- day moratorium before this patient can be voluntarily readmitted for the [facility] program, that is not since the patient could not be readmitted for medical or psychiatric necessity. 2. Chronic pain Patient was asking for ibuprofen, to which I ordered. Patient sees pain management in [place] and recently prescribed pregabalin. Once again we will not be prescribing the patient any gabapentin while she is here while taking pregabalin. Once again, I am concerned for manipulative behavior. Discussed with addiction medicine, charge nurse and case management. Then 35 minutes of which greater than for present time was discussing with patient about her treatment for opiate withdrawal, gabapentin, pregabalin, reviewing her OARRS report with her in the room. Inpatient E&M: [id number] [facility] Hosp L3
--- NOTE | 2020-06-09 11:18 | CASEMGMT ---
Social Work Note SW reviewed chart. Pt was living at [address] with significant other. Per Mary with [facility] assessment, pt stated that she was living with her mother in [place]. SW attempted to meet with pt. Pt currently in bathroom. SW did leave housing resources in pt's room. SW will follow up with pt as time allows to discuss housing. Pt does plan on following up with [facility] at discharge and [facility] does have housing resources as well for pt's. Lamar Jones SUPPORT TEACHER, VIRTUAL CLASSROOM MANAGER
--- NOTE | 2020-06-09 14:09 | CASEMGMT ---
Social Work Note LONDON spoke with RN. RN states received call from pt's counselor Johanny at [facility] stating she thinks pt's substance use is Suicide attempt. LONDON reviewed assessment completed by Mary with [facility], pt stated no Suicidal ideations at that time. LONDON in to speak with pt. SW introduced self and role at [facility]. Pt is alert and orientated but sleeping when this worker entered the room. Pt woke up but didn't open eyes during conversation. Pt denied any history of suicidal thoughts/plans/ideations. Pt denied any current suicidal thoughts/plans/ideations. Pt states she was not living at [address] and she will have a home to return to at discharge. LONDON updated RN. Lamar Jones SHINGLER, LEAD TECHNICAL ARCHITECT
[2020-06-09 14:33] VITALS: BP 102/60; PULSE 93; RESP 18; TEMP 36.7; O2SAT 99
[2020-06-09] MEDS: Ibuprofen 600 MG Tablet PO ×2 (14:47→21:01)
[2020-06-09] MEDS: Buprenorphine HCl 2 MG TAB.SUBL SL ×2 (14:48→22:47)
[2020-06-09] MEDS: cloNIDine HCl 0.1 MG Tablet PO (14:48)
--- NOTE | 2020-06-09 19:42 | NURSING ---
This RN received a call from pt's counselor Johanny at [facility] stating she thinks pt's overdose may have been a Suicide attempt. Upon assessment with patient, this patient denies any suicidal ideations.
[2020-06-09 21:09] VITALS: BP 91/59; PULSE 88; RESP 16; TEMP 36.5; O2SAT 97
[2020-06-10 03:43] VITALS: BP 81/46; PULSE 82; RESP 16; TEMP 36.9; O2SAT 97
[2020-06-10 06:45] VITALS: BP 90/59; PULSE 63; RESP 18; TEMP 37; O2SAT 98
[2020-06-10] MEDS: Buprenorphine HCl 2 MG TAB.SUBL SL (06:46)
[2020-06-10] MEDS: Baclofen 10 MG Tablet PO (06:46)
[2020-06-10] MEDS: Methocarbamol 750 MG Tablet 1500 MG PO (06:46)
[2020-06-10] MEDS: Ibuprofen 600 MG Tablet PO (06:46)
--- NOTE | 2020-06-10 07:34 | PN_ITS ---
Patient Problems: Active and Suspected Problems (Last Reviewed 06/08/20 @ 21:32 by Celestina Jansen NP-C) Opiate withdrawal (Acute) Vitals/I&O's: Vital Signs Temp Pulse Resp BP Pulse Ox 98.6 F 63 18 90/59 L 98 06/10/20 06:45 06/10/20 06:45 06/10/20 06:45 06/10/20 06:45 06/10/20 06:45 Oxygen Delivery Method Room Air Weight: 49.7 kg Body Mass Index (BMI) 22.1 Intake and Output for Last 24 Hours 06/08/20 06/09/20 06/10/20 23:59 23:59 23:59 Intake Total 200 / 640 1000 / 1000 Balance 200 / 640 1000 / 1000 Current Medications Acetaminophen (Acetaminophen 325 Mg Tablet) 650 mg PO Q6H PRN PRN PRN Reason: Pain 1-10 or Fever Last Admin: 06/09/20 04:25 Dose: 650 mg Documented by: Al Hydroxide/Mg Hydroxide (Mag Hydrox/Al Hydrox/Simeth 30 Ml Udc) 30 ml PO Q6H PRN PRN PRN Reason: DYSPEPSIA Last Admin: 06/09/20 05:09 Dose: 30 ml Documented by: Baclofen (Baclofen 10 Mg Tablet) 10 mg PO TIDCM PRN PRN Reason: muscle spasms Last Admin: 06/10/20 06:46 Dose: 10 mg Documented by: Buprenorphine HCl (Buprenorphine Hcl 2 Mg Tab.Subl) 2 mg SL Q8H AUSTYN; Taper Stop: 06/12/20 06:44 Last Admin: 06/10/20 06:46 Dose: 2 mg Documented by: Clonidine (Clonidine Hcl 0.1 Mg Tablet) 0.1 mg PO Q8H PRN PRN PRN Reason: RESTLESSNESS Last Admin: 06/09/20 14:48 Dose: 0.1 mg Documented by: Hydroxyzine Pamoate (Hydroxyzine Elizabeth 25 Mg Capsule) 50 mg PO Q6H PRN PRN PRN Reason: mild anxiety Last Admin: 06/09/20 21:02 Dose: 50 mg Documented by: Ibuprofen (Ibuprofen 600 Mg Tablet) 600 mg PO Q6H PRN PRN PRN Reason: pain 1-10/10 Last Admin: 06/10/20 06:46 Dose: 600 mg Documented by: Loperamide HCl (Loperamide 2 Mg Capsule) 2 mg PO Q4H PRN PRN PRN Reason: LOOSE STOOLS Methocarbamol (Methocarbamol 750 Mg Tablet) 1,500 mg PO Q6H PRN PRN PRN Reason: MUSCLE SPASM Last Admin: 06/10/20 06:46 Dose: 1,500 mg Documented by: Neomycin/Polymyxin/Bacitracin (Neomycin/Bacitracin/Polymyxin Ointment) 1 applic TOPICAL BID PRN; Protocol PRN Reason: abrasion Last Admin: 06/09/20 21:02 Dose: 1 applic Documented by: Nicotine (Nicotine 21 Mg Patch) 21 mg TD DAILY [facility] Last Admin: 06/09/20 14:59 Dose: 21 mg Documented by: Nicotine Polacrilex (Nicotine Polacrilex 4 Mg Gum) 4 mg PO Q2H PRN PRN PRN Reason: nicotine Last Admin: 06/09/20 19:49 Dose: 4 mg Documented by: Nutritional Formula (Lactose Free) (Ensure Enlive 120 Ml Liquid) 120 ml PO 4X/DAY [facility] Last Admin: 06/09/20 21:01 Dose: Not Given Documented by: Ondansetron HCl (Ondansetron 8 Mg Tablet) 8 mg PO Q8H PRN PRN PRN Reason: NAUSEA Last Admin: 06/09/20 08:26 Dose: 8 mg Documented by: Polyethylene Glycol (Polyethylene Glycol 3350 17 Gm Packet) 17 gm PO BID [facility] Last Admin: 06/09/20 21:01 Dose: 17 gm Documented by: Pregabalin (Pregabalin 75 Mg Capsule) 75 mg PO BID [facility] Last Admin: 06/09/20 21:01 Dose: 75 mg Documented by: Sodium Chloride (0.9% Saline Lock 10 Ml Syringe) 10 - 40 ml IV UD PRN PRN Reason: SALINE FLUSH Trazodone HCl (Trazodone 100 Mg Tablet) 100 mg PO QHS PRN PRN PRN Reason: INSOMNIA STROKE Vital Signs/Narrative: Vital Signs Temp Pulse Resp BP Pulse Ox 06/10/20 06:45 98.6 F 63 18 90/59 L 98 06/10/20 03:43 98.5 F 82 16 81/46 L 97 Medical Necessity - Tobacco Use Smoking Status: Current every day smoker Tobacco Use: Cigarettes Assessment/Plan All Active Problems (Last Reviewed 06/08/20 @ 21:32 by GERALDINE GuidryC) Opiate overdose (Acute) Opiate withdrawal (Acute)
[2020-06-10 08:17] LABS: Anion Gap 2 (5-15); BUN 11 mg/dL (7-18); BUN/Creat Ratio 16.3 RATIO (10-20); Calcium,Total 8.5 mg/dL (8.5-10.1); Chloride 109 mmol/L (98-107); Creatinine, Serum 0.67 mg/dL (0.55-1.02); EST Glomerular Filtration Rate 111 mL/min (>60); Est Glom Filt Rate - Afr Amer 135 mL/min (>60); Estimated Creatinine Clearance 98.96 ml/min; Glucose 84 mg/dL (74-106); Potassium 3.8 mmol/L (3.5-5.1); Sodium Level 139 mmol/L (136-145)
[2020-06-10 09:55] VITALS: BP 107/83; PULSE 63; RESP 16; TEMP 37.1; O2SAT 98
--- NOTE | 2020-06-10 15:37 | CASEMGMT ---
Social Work Note Pt left AMA this morning, SW was unable to meet with pt today. SW reviewed chart. Pt's RN yesterday had charted at 19:42 about the phone call he received from pt's counselor Johanny having concerns that pt's recent substance use/abuse/OD was a suicide attempt. This worker was made aware of that RN's conversation at 14:09 when this worker had seen pt and put note in that pt had denied any history of suicide thoughts/plans/ideations and denied any current suicidal thoughts/plans/ideations.This worker's note at 14:09 was in relation/in response to RN note's at 19:42. SW spoke with Charge Nurse who was Charge Nurse yesterday who stated no additional concerns came up last night after this worker had met with pt. Lamar Jones [employer], [employer]
--- NOTE | 2020-06-10 16:42 | DS.PCM_ITS ---
Discharge Date and Diagnosis - Problem List Patient Problems: Active and Suspected Problems (Last Reviewed 06/08/20 @ 21:32 by ELIANA Guidry) Opiate withdrawal (Acute) Date of Admission: 06/08/20 Date of Discharge: 06/10/20 - Primary Discharge Diagnosis Acute Problems: Active Problems (Last Reviewed 06/08/20 @ 21:32 by ELIANA Guidry) Opiate withdrawal (Acute) Nicotine dependence - Secondary Discharge Diagnosis Chronic Problems: Chronic Problems (Last Reviewed 06/08/20 @ 21:32 by ELIANA Guidry) Tobacco abuse (Chronic) Depression (Chronic) Drug abuse (Chronic) heroin and cocaine Bipolar disorder (Chronic) Borderline personality disorder (Chronic) HPV (human papilloma virus) infection (Chronic) Fibromyalgia (Chronic) Hypotension (Chronic) Low potassium syndrome (Chronic) Vitamin deficiency (Chronic) Seizures (Chronic) Carpal tunnel syndrome (Chronic) Seasonal allergies (Chronic) Hospital Course and Treatment Operations: None Procedures: None Summary of Care Provided: The patient is a 25 year old F has medical history of polysubstance use dis order, depression, fibromyalgia, who was initially seen in the emergency room for an overdose. Patient left AMA because she had to get her stuff from the [facility]. She contacted emergency room oxygen for medical stabilization from opioid. She was admitted to the MedSurg floor, managed on the buprenorphine withdrawal protocol. On the MedSurg floor, she complained of pain in her shoulder, back. She is on Lyrica. She insisted on being put on gabapentin. Patient was upset that her physician will not give her both Lyrica and gabapentin. The previous hospitalist was fired. On the day of discharge, patient was seen and examined. She was woken up from sleep. She complains of pain in her back as soon as she woke up. She insisted on being given Lyrica with gabapentin. I encouraged her to take 1. I have recommended to have her on gabapentin and discontinue her Lyrica. She insisted on having high doses of gabapentin. I told her that we will have to be careful not to overly sedate her. Patient soon after that signed out AGAINST MEDICAL ADVICE. Patient Problems: Active and Suspected Problems (Last Reviewed 06/08/20 @ 21:32 by ELIANA Guidry) Opiate withdrawal (Acute) Subjective: Patient was seen and examined. Complains of multiple complaints including back, neck, shoulder, generalized pain. - Physical Exam Vitals/I&O's: Vital Signs Temp Pulse Resp BP Pulse Ox 98.7 F 63 16 107/83 H 98 06/10/20 09:55 06/10/20 09:55 06/10/20 09:55 06/10/20 09:55 06/10/20 09:55 Oxygen Delivery Method Room Air Weight: 49.7 kg Body Mass Index (BMI) 22.1 Intake and Output for Last 24 Hours 06/08/20 06/09/20 06/10/20 23:59 23:59 23:59 Intake Total 200 / 640 1000 / 1000 Balance 200 / 640 1000 / 1000 General: Alert, Oriented x3, Cooperative, No apparent distress HEENT: Atraumatic, PERRLA, EOMI, Normocephalic Oral: Moist Mucosa Neck: Supple Lungs: Clear to auscultation, Normal air movement Cardiovascular: Regular rate, Regular Rhythm, Normal S1, Normal S2, No murmurs Abdomen: Bowel Sounds Present, Soft, Non Tender, Non-Distended Extremities: No edema Skin: No rashes Musculoskeletal: No Tenderness to Palpation of Joints or Extremities Lymphatic: No Cervical, Supraclavicular, or Inguinal Adenopathy Neurological: Cranial nerves II-XII grossly intact, Neuro grossly intact Psych/Mental Status: Normal Affect, Appropriate Laboratory Results 06/10/20 07:50: Sodium 139, Potassium 3.8, Chloride 109 H, Carbon Dioxide 28.0, Anion Gap 2 L, BUN 11, Creatinine 0.67, Estim Creat Clear Calc 98.96, Est GFR (MDRD) Af Amer 135, Est GFR (MDRD) Non-Af 111, BUN/Creatinine Ratio 16.3, Glucose 84, Calcium 8.5 Discharge Diet: No Restrictions Discharge Activity: Return to Normal Activity Home Medications: Medications to take at Discharge acyclovir 400 mg tablet 400 mg PO BID PRN 02/26/19 polyethylene glycol 3350 17 gram/dose oral powder 17 g PO BID 02/26/19 Baclofen [Lioresal] 10 mg PO TIDCM PRN 06/08/20 Gabapentin [Neurontin] 400 mg PO BIDCM 06/08/20 Gabapentin [Neurontin] 800 mg PO QHS 06/08/20 Norethindrone-E.estradiol-Iron [Arian Fe 1-20 Tablet] 1 each PO DAILY 06/08/20 Pregabalin [Lyrica] 75 mg PO BID 06/08/20 Primary Care Physician: Care Physician,No Primary [Primary Care Provider] - Disposition: Against Medical Advice Minutes spent on discharge:: 25 Patient Condition:: Stable Medical Necessity - Tobacco Use Smoking Status: Current every day smoker Tobacco Use: Cigarettes Meaningful Use Info Meaningful Use Diagnoses (Choose all that apply): None applicable Inpatient E&M: [id number] [facility]
== END 2020-06-10 10:15 | disposition left against medical advice (07) ==
LOC: ED 20:37 → MS3 06-09 05:24
PROVIDERS: Nurse Practitioner Family; Admitting Provider Hospitalist; Emergency Provider Emergency Medicine; Visit Provider Internal Medicine
DX: F11.23 Opioid dependence with withdrawal (principal); F19.10 Other psychoactive substance abuse, uncomplicated; R45.1 Restlessness and agitation; N93.9 Abnormal uterine and vaginal bleeding, unspecified; M79.7 Fibromyalgia; F17.210 Nicotine dependence, cigarettes, uncomplicated; Z79.899 Other long term (current) drug therapy; T40.1X1A Poisoning by heroin, accidental (unintentional), initial encounter; Y92.59 Other trade areas as the place of occurrence of the external cause; R56.9 Unspecified convulsions; F31.9 Bipolar disorder, unspecified; F60.3 Borderline personality disorder; R23.0 Cyanosis; E87.6 Hypokalemia; M25.519 Pain in unspecified shoulder; M54.9 Dorsalgia, unspecified; G89.29 Other chronic pain
CPT/HCPCS: 36415; 80048; 80053; 80307; 82077; 84703; 85025; 97802; 99284; 99285; 99406; H0012

== ENCOUNTER 2020-06-15 10:04 | Emergency (ER) | payer MEDICAID, SELFPAY ==
[2020-06-08 21:41] VITALS: BMI 22.1
--- NOTE | 2020-06-15 10:05 | ED.RN ---
PT ARRIVED WITH POLICE AND EMS. PT AGITATED, HITTING, YELLING AND KICKING. NOT ABLE TO REDIRECT PT. PT WAS HANDCUFFED ON ARRIVAL. RESTRAINTS APPLIED ON ARRIVAL WHEN HANDCUFFS REMOVED.
[2020-06-15] MEDS: Ziprasidone IM 20 MG/ML VIAL IM (10:08)
[2020-06-15 10:09] VITALS: RESP 30; TEMP 36.7; BMI 20.2
[2020-06-15 10:17] VITALS: PULSE 144; RESP 32; O2SAT 94
[2020-06-15 12:52] VITALS: BP 100/60; PULSE 100; RESP 12; O2SAT 100
--- NOTE | 2020-06-15 13:52 | ED.RN ---
pt sitting up in bed with eyes closed. 2 more restraints removed at this time- pt out of restraints.
[2020-06-15 14:07] VITALS: BP 109/77; PULSE 94; RESP 12; O2SAT 100
--- NOTE | 2020-06-15 14:16 | ED.VISSUMM ---
- ER Visit Summary Date of Service: 06/15/20 Chief Complaint: Agitation History of Present Illness: The patient is a 25 F with no primary care physician. She is brought in by EMS and police acutely agitated after methamphetamine use. Patient is uncooperative I am unable to obtain any other history or review of systems. Physical Examination: Vitals: Stable. Afebrile. General: Well-nourished and well-developed. Head: Normocephalic atraumatic. Neck: Supple, no lymphadenopathy. No JVD. Nontender. Cardiovascular: Regular rate and rhythm. No murmurs. Respiratory: No respiratory distress. Clear to auscultation bilaterally. Abdominal: Soft, nontender, nondistended, normal bowel sounds. No guarding, rebound, or peritoneal signs. Back: Nontender. Extremities: Nontender, no edema. Skin: Normal color, no rash. Track st[place] in her antecubital fossa bilaterally with no evidence of infection. There are bruises scattered over her upper extremities. Neurologic: Alert moves all extremities well. Psych: Agitated. Emergency Department Course and Treatment: Patient is agitated and combative upon arrival. She was placed in four-point restraints and given Geodon IM. She has been observed over the course of 4 hours and is back to her baseline. Vital signs at this time are 98.1, 109/77, 94, 12, 100% on room air which not hypoxic. Patient does not want help with her substance abuse. Treatment Plan: Patient will be discharged instructions to follow-up with 180 soon as possible. Return to the emergency department for any worsening symptoms. Disposition:To home in improved and stable condition. Impression: 1. Polysubstance abuse. This note was generated with [employer] dictation software. It may contain incorrect words, spelling, and punctuation that were not noted in review of the chart prior to signing ED Disposition - Plan for ED Patient: Instructions: ED Drug Abuse Referrals: [facility] [STAFF PHYSICIAN] - As soon as possible
--- NOTE | 2020-06-15 14:57 | ED.RN ---
attempted to call mother back with no answer. had previously stated that there is no ride home for pt.
== END 2020-06-15 16:21 | disposition home or self-care (01) ==
PROVIDERS: Emergency Provider Emergency Medicine
DX: F15.10 Other stimulant abuse, uncomplicated (principal); F19.10 Other psychoactive substance abuse, uncomplicated; F31.9 Bipolar disorder, unspecified; F20.9 Schizophrenia, unspecified; M79.7 Fibromyalgia; Z78.1 Physical restraint status; Z72.0 Tobacco use; Z79.899 Other long term (current) drug therapy
CPT/HCPCS: 96372; 99285; J3486

== ENCOUNTER 2020-07-24 17:43 | Observation (INO) | payer MEDICAID, SELFPAY ==
[2020-07-24 17:44] VITALS: BP 119/68; PULSE 98; RESP 17; TEMP 37.1; O2SAT 96; BMI 24.5
--- NOTE | 2020-07-24 18:37 | RAD_ITS ---
INDICATION: pain EXAMINATION/TECHNIQUE: X-RAY - LEFT XR Hand Min 3 Views COMPARISON: None. FINDINGS: No acute fracture or malalignment. No blastic or lytic lesions. No degenerative changes are seen. The soft tissues are unremarkable. RAD/Hand Min 3 Views IMPRESSION: No acute radiographic abnormalities. Electronically Signed: Bernabe Infante MD at 19:17 EDT Tel , Service support ,
--- NOTE | 2020-07-24 18:53 | EX.ED.DYSGE1 ---
HPI History of Present Illness Chief Complaint: Substance Abuse Narrative Narrative: 25-year-old female presenting requesting detox from heroin. Patient states her last use was last night. She uses 1 to 2 g of heroin per day. She is unsure how long she was sober after her last detox admission. She also complains of dysuria and symptoms similar to her previous UTIs. She also complains of left hand pain and swelling. She states this has been ongoing for the past week. She states it is starting to improve. She denies injury. She does inject into that hand. [facility] Medical History (Updated 07/24/20 @ 20:[address] Mary Garcia MD) Carpal tunnel syndrome Fibromyalgia GERD (gastroesophageal reflux disease) Hepatitis Low potassium syndrome Migraines Seasonal allergies Seizures Substance abuse Vitamin deficiency Home Medications acyclovir 400 mg tablet 400 mg PO BID PRN 02/26/19 [History Last Taken 06/06/20] polyethylene glycol 3350 17 gram/dose oral powder 17 g PO BID 02/26/19 [History Last Taken 06/05/20] baclofen 10 mg PO TIDCM PRN 06/08/20 [History Last Taken 06/08/20] gabapentin 400 mg PO BIDCM 06/08/20 [History Last Taken 06/08/20] norethindrone-e.estradiol-iron 1 each PO DAILY 06/08/20 [History Last Taken 06/07/20] pregabalin 75 mg PO BID 06/08/20 [History Last Taken Unknown] Allergy/AdvReac Type Severity Reaction Status Date / Time clindamycin Allergy Mild Unknown Verified 07/24/20 17:44 nickel [Nickel] Allergy Unknown Verified 07/24/20 17:44 Penicillins Allergy Shortness Verified 07/24/20 17:44 of breath dicyclomine [From Bentyl] AdvReac cramps, Verified 07/24/20 17:44 constipation, chest pain doxycycline AdvReac Vomiting Verified 07/24/20 17:44 metronidazole [From Flagyl] AdvReac Upset Verified 07/24/20 17:44 Stomach sulfamethoxazole AdvReac Upset Verified 07/24/20 17:44 [From Bactrim] Stomach trimethoprim [From Bactrim] AdvReac Upset Verified 07/24/20 17:44 Stomach Family History Father Diabetes Grandfather Diabetes Grandmother Diabetes Other Alcoholism Allergies Anxiety Anxiety and depression Arthritis Asthma defect Bowel disease CVA (cerebral vascular accident) Heart disease High cholesterol Hypertension Kidney disease Liver disease Mental disorder Myocardial infarction Psychiatric care Surgical History HISTORY NECK INJECTIONS History of History of appendectomy History of colonoscopy History of shoulder surgery Social History (Updated 07/10/19 @ 14:[address] Smith Magdaleno MD) Smoking Status: Current every day smoker alcohol intake: never substance use type: former substance user what type of physical activity do you participate in: none ROS ROS ED Constitutional Constitutional ED: Denies fever(s) Eyes Eyes: Denies change in vision ENT ENT ED: Denies rhinorrhea or sore throat Cardiovascular Cardiovascular: Denies chest pain or palpitations Respiratory/Chest Respiratory/Chest: Denies cough or dyspnea Gastrointestinal Gastrointestinal: Denies abdominal pain, diarrhea, nausea or vomiting Genitourinary Genitourinary ED: Reports dysuria; Denies hematuria Musculoskeletal Musculoskeletal: Reports other Details: Left hand pain Integumentary Denies rash Neurologic Neurologic: Denies headache(s) Psychiatric Psychiatric: Denies suicidal thoughts EXAM Physical Exam Const Vital Signs: 07/24/20 17:44 Temperature 98.8 F Temperature Source Temporal Pulse Rate 98 Respiratory Rate 17 Blood Pressure 119/68 Blood Pressure Mean 85 Pulse Ox 96 Oxygen Delivery Method Room Air Positive well nourished and well developed General Appearance ED: well developed HEENT Reports normocephalic and head/scalp atraumatic Eyes PERRL and EOMs intact bilaterally Neck supple General: Negative for tenderness Chest Wall inspection of chest normal Resp normal respiratory effort and clear to auscultation bilaterally Cardio regular rate and regular rhythm GI non-tender and non-distended Palpation: soft; Negative for guarding or rebound tenderness present no CVA tenderness Back/Spine no CVA tenderness Extremity Extremity Narrative: Left dorsal hand swelling and ecchymosis. Active full range of motion. No erythema or warmth. Normal cap refill. Neuro oriented x3 Sensorium / Orientation: alert Psych mental status grossly normal MDM MDM MDM Narrative Medical decision making narrative: Left hand x-ray read by myself and radiology shows no acute process. Urinalysis is unremarkable. Tox positive for opiates and benzos. negative. Discussed with hospitalist for admission. Lab Data Attestation: I reviewed the patient's lab results. Labs: Laboratory Results - last 24 hr 07/24/20 07/24/20 07/24/20 16:45 18:45 19:07 WBC 8.8 RBC 4.74 Hgb 13.7 Hct 41.4 MCV 87.3 MCH 28.9 MCHC 33.1 RDW Std Deviation 38.9 RDW Coeff of [place] 12.1 Plt Count 321 MPV 9.2 Immature Gran % (Auto) 0.500 Neut % (Auto) 55.4 Lymph % (Auto) 30.6 [place] % (Auto) 9.0 Eos % (Auto) 3.8 Baso % (Auto) 0.7 Absolute Neuts (auto) 4.9 Absolute Lymphs (auto) 2.68 Nucleated RBC % 0 Serum , Qual Urine Color Yellow Urine Clarity Clear Urine pH 7.0 Ur Specific [place] 1.010 Urine Protein Negative Urine Glucose (UA) Normal Urine Ketones Negative Urine Occult Blood Negative Urine Nitrite Negative Urine Bilirubin Negative Urine Urobilinogen Normal Ur Leukocyte Esterase Negative Urine RBC 0 SEEN Urine WBC 0 SEEN Ur Squamous Epith Cells 0-5 SEEN Urine Bacteria 0 SEEN Urine Mucus 0 SEEN Urine Opiates Screen POSITIVE H Urine Methadone Screen NEGATIVE Ur Barbiturates Screen NEGATIVE Ur Phencyclidine Scrn NEGATIVE Ur Amphetamines Screen NEGATIVE U Methamphetamin-MDMA NEGATIVE U Benzodiazepines Scrn POSITIVE H Urine Cocaine Screen NEGATIVE U Cannabinoids Screen NEGATIVE Ur Drug Screen Comment Ethyl Alcohol 07/24/20 07/24/20 19:07 19:07 WBC RBC Hgb Hct MCV MCH MCHC RDW Std Deviation RDW Coeff of [place] Plt Count MPV Immature Gran % (Auto) Neut % (Auto) Lymph % (Auto) [place] % (Auto) Eos % (Auto) Baso % (Auto) Absolute Neuts (auto) Absolute Lymphs (auto) Nucleated RBC % Serum , Qual NEGATIVE Urine Color Urine Clarity Urine pH Ur Specific [place] Urine Protein Urine Glucose (UA) Urine Ketones Urine Occult Blood Urine Nitrite Urine Bilirubin Urine Urobilinogen Ur Leukocyte Esterase Urine RBC Urine WBC Ur Squamous Epith Cells Urine Bacteria Urine Mucus Urine Opiates Screen Urine Methadone Screen Ur Barbiturates Screen Ur Phencyclidine Scrn Ur Amphetamines Screen U Methamphetamin-MDMA U Benzodiazepines Scrn Urine Cocaine Screen U Cannabinoids Screen Ur Drug Screen Comment Ethyl Alcohol < 3.0 Radiography Diagnostic Testing: Radiology Impression Hand X-Ray 07/24/20 18:37 IMPRESSION: No acute radiographic abnormalities. Electronically Signed: Bernabe Infante MD at 19:17 EDT Tel , Service support , Discharge Plan Triage Chief Complaint: Substance Abuse ED Provider: Mary Garcia Dx/Rx/DC Orders Clinical Impression: Heroin dependence Prescriptions: No Action polyethylene glycol 3350 [Miralax] 17 gram/dose powder 17 g PO BID PRN (Reason: Constipation) RF: 0 acyclovir 400 mg tablet 400 mg PO BID PRN (Reason: Not Specified) RF: 0 gabapentin 400 MG capsule 600 mg PO TIDCM RF: 0 norethindrone-e.estradiol-iron 1 EACH tablet 1 each PO DAILY RF: 0 baclofen 10 MG tablet 10 mg PO TIDCM PRN (Reason: muscle spasms) RF: 0 pregabalin 75 MG capsule 75 mg PO BID RF: 0 Primary Care Provider: Care Physician,No Primary Referrals: Care Physician,No Primary [Primary Care Provider] - Disposition Disposition: Acute Care Hospital [facility]
[2020-07-24 19:08] LABS: Bacteria 0 SEEN /hpf (None Seen); Mucous, Urine 0 SEEN /hpf (<or=2+); Red Blood Cells-Urine 0 SEEN /hpf (0-5); White Blood Cells 0 SEEN /hpf (0-5)
[2020-07-24 19:12] LABS: Absolute Lymphocyte Count 2.68 X10^3/uL (0.83-4.51); Absolute Neutrophil Count 4.9 X10^3/uL (2.0-7.7); Basophil# 0.06 X10^3/uL; Basophil% 0.7 % (0-1); Eosinophil# 0.33 X10^3/uL; Eosinophils% 3.8 % (0-5); Hematocrit 41.4 % (37-47); Hemoglobin 13.7 g/dL (12.0-15.0); Lymphocyte # 2.68 X10^3/ul (0.83-4.51); Lymphocyte % 30.6 % (19-41); Mean Corp Hgb Conc 33.1 g/dL (32-36); Mean Corpuscular Hgb 28.9 pg (27.0-32.0); Mean Corpuscular Volume 87.3 fL (81-99); Mean Platelet Vol. 9.2 fl (6.2-12.0); Monocyte# 0.79 X10^3/uL; NRBC Flagged by Analyzer 0 % (0-5); Neutrophil # 4.87 X10^3/uL (2.7-7.7); Neutrophil % 55.4 % (47-70); Platelet Count 321 K/mm3 (150-450); RBC Distribution Width CV 12.1 % (11.6-14.6); RBC Distribution Width SD 38.9 fl (35.1-43.9); Red Blood Count 4.74 M/mm3 (4.2-5.4); White Blood Count 8.8 K/mm3 (4.4-11.0)
[2020-07-24 19:13] LABS: Color, Urine Yellow (Yellow); Glucose, Dipstick Normal (Normal); Ketone-Dipstick Negative (Negative); Leukocyte Esterase-Dipstick Negative /ul (Negative); Nitrite-Dipstick Negative (Negative); Occult Blood-Urine Negative /ul (Negative); Protein-Dipstick Negative (Negative); Urine Bilirubin Dipstick Negative (Negative); Urine Clarity Clear (Clear); Urine Urobilinogen Normal (Normal)
--- NOTE | 2020-07-24 19:20 | CM.ED ---
SOCIAL WORK Referral Source: Self-referral Reason for Consult: Substance Abuse Met with patient in room. Patient requesting detox from heroin, fentanyl, Suboxone and benzos. Patient reports last use was last night. Patient reports is connected with [facility] and informed counselor she would be coming in for detox. Call to [facility] Treatment NavigatorOmero and updated on admission. Serene Calixto, [employer] MECH[employer]IC, [employer] PARAPROFESSIONAL
[2020-07-24 19:25] LABS: Squamous Epithelial Cells - UA 0-5 SEEN /hpf (5-10)
[2020-07-24 19:30] LABS: Internal QC Validated? YES +Cl - CLEAR BKGD; Pregnancy, Serum, hCG Quali. NEGATIVE Negative
[2020-07-24 19:39] LABS: Alcohol, Blood (Medical)-Serum < 3.0 mg/dL
[2020-07-24 19:41] LABS: Amphetamine Urine VISTA NEGATIVE (<1000 ng/mL); Barbiturate Urine VISTA NEGATIVE (< 200 ng/mL); Benzodiazepine Urine VISTA POSITIVE (< 200 ng/mL); Cocaine Urine VISTA NEGATIVE (< 300 ng/mL); Ecstacy Urine VISTA NEGATIVE (< 500 ng/mL); Methadone Urine VISTA NEGATIVE (< 300 ng/mL); PCP Urine VISTA NEGATIVE (< 25 ng/mL); THC Urine VISTA NEGATIVE (< 50 ng/mL); Vista UDS pH Range 6
[2020-07-24 20:04] LABS: ALB/GLOB Ratio 0.9 RATIO (0.9-2.4); AST(SGOT) 50 U/L (15-37); Alanine Aminotransfer ALT/SGPT 75 U/L (13-56); Albumin, Serum 3.5 g/dL (3.2-5.0); Alkaline Phosphatase 107 U/L (45-117); Anion Gap 7 (5-15); BUN 4 mg/dL (7-18); BUN/Creat Ratio 5.2 RATIO (10-20); Chloride 102 mmol/L (98-107); Creatinine, Serum 0.77 mg/dL (0.55-1.02); EST Glomerular Filtration Rate 96 mL/min (>60); Est Glom Filt Rate - Afr Amer 116 mL/min (>60); Estimated Creatinine Clearance 95.29 ml/min; Glucose 86 mg/dL (74-106); Potassium 3.7 mmol/L (3.5-5.1); Protein, Total 7.5 g/dL (6.4-8.2); Sodium Level 140 mmol/L (136-145)
--- NOTE | 2020-07-24 20:11 | HP.PCM.HOS_ITS ---
HPI - General General Date of Admission: 07/24/20 HPI Narrative GINNY WYNNE, is a 25 F with a significant history of fibromyalgia; and IV drug use with multiple hospitalization and AMA's who presents to emergency department for help with drug detoxification. Patient been shooting heroin and fentanyl. Last time she shot heroin and fentanyl was several hours on the day of presentation. Reportedly she did not use much on her last use so she developed withdrawal symptoms quickly. She reported withdrawal symptoms as muscle aches; muscle spasms and anxiety. Also she abuses benzos. Last time she used benzo was about a day before presentation. Further she complains of urinary symptoms of urgency and burning with urination. Also she complains of left forearm and left hand swelling and pain that began about a week ago. She remembers shooting drugs in her left arm. [facility] Medical History Carpal tunnel syndrome Fibromyalgia GERD (gastroesophageal reflux disease) Hepatitis Low potassium syndrome Migraines Seasonal allergies Seizures Substance abuse Vitamin deficiency Home Medications acyclovir 400 mg tablet 400 mg PO BID PRN 02/26/19 [History Last Taken 07/23/20] polyethylene glycol 3350 17 gram/dose oral powder 17 g PO BID PRN 02/26/19 [History Last Taken 07/23/20] baclofen 10 mg PO TIDCM PRN 06/08/20 [History Last Taken 07/17/20] gabapentin 600 mg PO TIDCM 06/08/20 [History Last Taken 07/23/20] norethindrone-e.estradiol-iron 1 each PO DAILY 06/08/20 [History Last Taken 07/23/20] pregabalin 75 mg PO BID 06/08/20 [History Last Taken 07/23/20] Allergy/AdvReac Type Severity Reaction Status Date / Time clindamycin Allergy Mild Unknown Verified 07/24/20 17:44 nickel [Nickel] Allergy Unknown Verified 07/24/20 17:44 Penicillins Allergy Shortness Verified 07/24/20 17:44 of breath dicyclomine [From Bentyl] AdvReac cramps, Verified 07/24/20 17:44 constipation, chest pain doxycycline AdvReac Vomiting Verified 07/24/20 17:44 metronidazole [From Flagyl] AdvReac Upset Verified 07/24/20 17:44 Stomach sulfamethoxazole AdvReac Upset Verified 07/24/20 17:44 [From Bactrim] Stomach trimethoprim [From Bactrim] AdvReac Upset Verified 07/24/20 17:44 Stomach Family History Father Diabetes Grandfather Diabetes Grandmother Diabetes Other Alcoholism Allergies Anxiety Anxiety and depression Arthritis Asthma defect Bowel disease CVA (cerebral vascular accident) Heart disease High cholesterol Hypertension Kidney disease Liver disease Mental disorder Myocardial infarction Psychiatric care Surgical History HISTORY NECK INJECTIONS History of History of appendectomy History of colonoscopy History of shoulder surgery Social History Smoking Status: Current every day smoker alcohol intake: never substance use type: former substance user what type of physical activity do you participate in: none ROS ROS Narrative 12 points review of systems is negative except as stated in HPI Vital Signs Vital Signs Vital Signs: 07/24/20 17:44 Temperature 98.8 F Temperature Source Temporal Pulse Rate 98 Respiratory Rate 17 Blood Pressure 119/68 Blood Pressure Mean 85 Pulse Ox 96 Oxygen Delivery Method Room Air Lab / Micro Data Result Diagrams: 07/24/20 19:07 07/24/20 19:07 Labs: Laboratory Results - last 24 hr 07/24/20 07/24/20 07/24/20 16:45 18:45 19:07 WBC 8.8 RBC 4.74 Hgb 13.7 Hct 41.4 MCV 87.3 MCH 28.9 MCHC 33.1 RDW Std Deviation 38.9 RDW Coeff of [place] 12.1 Plt Count 321 MPV 9.2 Immature Gran % (Auto) 0.500 Neut % (Auto) 55.4 Lymph % (Auto) 30.6 [place] % (Auto) 9.0 Eos % (Auto) 3.8 Baso % (Auto) 0.7 Absolute Neuts (auto) 4.9 Absolute Lymphs (auto) 2.68 Nucleated RBC % 0 Sodium Potassium Chloride Carbon Dioxide Anion Gap BUN Creatinine Estim Creat Clear Calc Est GFR (MDRD) Af Amer Est GFR (MDRD) Non-Af BUN/Creatinine Ratio Glucose Calcium Total Bilirubin AST ALT Alkaline Phosphatase Total Protein Albumin Globulin Albumin/Globulin Ratio Serum , Qual Urine Color Yellow Urine Clarity Clear Urine pH 7.0 Ur Specific [place] 1.010 Urine Protein Negative Urine Glucose (UA) Normal Urine Ketones Negative Urine Occult Blood Negative Urine Nitrite Negative Urine Bilirubin Negative Urine Urobilinogen Normal Ur Leukocyte Esterase Negative Urine RBC 0 SEEN Urine WBC 0 SEEN Ur Squamous Epith Cells 0-5 SEEN Urine Bacteria 0 SEEN Urine Mucus 0 SEEN Urine Opiates Screen POSITIVE H Urine Methadone Screen NEGATIVE Ur Barbiturates Screen NEGATIVE Ur Phencyclidine Scrn NEGATIVE Ur Amphetamines Screen NEGATIVE U Methamphetamin-MDMA NEGATIVE U Benzodiazepines Scrn POSITIVE H Urine Cocaine Screen NEGATIVE U Cannabinoids Screen NEGATIVE Ur Drug Screen Comment Ethyl Alcohol 07/24/20 07/24/20 07/24/20 19:07 19:07 19:07 WBC RBC Hgb Hct MCV MCH MCHC RDW Std Deviation RDW Coeff of [place] Plt Count MPV Immature Gran % (Auto) Neut % (Auto) Lymph % (Auto) [place] % (Auto) Eos % (Auto) Baso % (Auto) Absolute Neuts (auto) Absolute Lymphs (auto) Nucleated RBC % Sodium 140 Potassium 3.7 Chloride 102 Carbon Dioxide 31.0 Anion Gap 7 BUN 4 L Creatinine 0.77 Estim Creat Clear Calc 95.29 Est GFR (MDRD) Af Amer 116 Est GFR (MDRD) Non-Af 96 BUN/Creatinine Ratio 5.2 L Glucose 86 Calcium 9.0 Total Bilirubin 0.70 AST 50 H ALT 75 H Alkaline Phosphatase 107 Total Protein 7.5 Albumin 3.5 Globulin 4.0 Albumin/Globulin Ratio 0.9 Serum , Qual NEGATIVE Urine Color Urine Clarity Urine pH Ur Specific [place] Urine Protein Urine Glucose (UA) Urine Ketones Urine Occult Blood Urine Nitrite Urine Bilirubin Urine Urobilinogen Ur Leukocyte Esterase Urine RBC Urine WBC Ur Squamous Epith Cells Urine Bacteria Urine Mucus Urine Opiates Screen Urine Methadone Screen Ur Barbiturates Screen Ur Phencyclidine Scrn Ur Amphetamines Screen U Methamphetamin-MDMA U Benzodiazepines Scrn Urine Cocaine Screen U Cannabinoids Screen Ur Drug Screen Comment Ethyl Alcohol < 3.0 Radiology Impression Hand X-Ray 07/24/20 18:37 IMPRESSION: No acute radiographic abnormalities. Electronically Signed: Bernabe Infante MD at 19:17 EDT Tel , Service support , Assessment & Plan Assessment/Plan (1) IV drug abuse: (2) Thrombophlebitis arm: (3) Dysuria: (4) Tobacco abuse: PLAN: GINNY WYNNE, is a 25 F with a significant history of fibromyalgia; and IV drug use with multiple hospitalization and AMA's who presents to emergency department for help with drug detoxification; and with swelling of her left forearm and left hand; and also with dysuria. Opioid dependence and withdrawal Patient be started on Subutex and other adjunctive medications: Gabapentin as needed; dicyclomine as needed; Vistaril as needed; methocarbamol as needed; clonidine as needed; Imodium as needed; trazodone as needed and Zofran as needed. Monitor COWS and CINA score Tobacco abuse Counseled Nicotine patch and gum prn ordered. Dysuria Urinalysis negative. In my presence patient reported urinary urgency with need to void urgently. Will order urine culture. DVT prophylaxis DVT Prophylaxis Low risk Encourage to ambulate Visit Charges Inpatient E&M: 58183 Init Hosp L3
[2020-07-24 20:24] VITALS: BP 113/76; PULSE 84; PULSE 99; RESP 15; RESP 16; TEMP 36.6; O2SAT 98; O2SAT 99
[2020-07-24 20:59] VITALS: BP 111/86; PULSE 79; RESP 18; TEMP 36.9; O2SAT 98
[2020-07-24 21:08] VITALS: BMI 23.9
[2020-07-24] MEDS: Methocarbamol 750 MG Tablet 1500 MG PO (22:02)
[2020-07-24] MEDS: hydrOXYzine PAM 25 MG Capsule 50 MG PO (22:02)
[2020-07-24] MEDS: Gabapentin 300 MG Capsule PO (22:04)
[2020-07-24] MEDS: Buprenorphine HCl 2 MG TAB.SUBL SL (22:18)
[2020-07-24] MEDS: cloNIDine HCl 0.1 MG Tablet PO (22:21)
[2020-07-24] MEDS: traZODone 100 MG Tablet PO (23:24)
[2020-07-25] MEDS: hydrOXYzine PAM 25 MG Capsule 50 MG PO ×3 (05:58→22:17)
[2020-07-25] MEDS: Methocarbamol 750 MG Tablet 1500 MG PO ×3 (05:59→22:17)
[2020-07-25] MEDS: Buprenorphine HCl 2 MG TAB.SUBL SL ×3 (05:59→22:17)
--- NOTE | 2020-07-25 07:24 | NURSING ---
this nurse went in to obtain vitals, pt yelled at nurse and stated get out of my room, I want to be left alone, I don't want breakfast, I am going back to sleep. Turned light off and left room, door closed.
[2020-07-25 09:25] VITALS: BP 114/64; PULSE 101; RESP 16; TEMP 37.1; O2SAT 97
[2020-07-25] MEDS: Gabapentin 300 MG Capsule PO ×2 (09:27→17:35)
[2020-07-25] MEDS: cloNIDine HCl 0.1 MG Tablet PO ×2 (09:27→17:35)
--- NOTE | 2020-07-25 09:32 | NURSING ---
Pt restless in bed, blankets pulled over her head. Allowed RN to get vitals and listen to lung sounds, but refused further assessment. C/o restlessness, anxiety, and hot/cold sweats. Medicated per PRN orders.
--- NOTE | 2020-07-25 11:24 | PCM.PN.HOSP ---
Documented by User: Skinny ESQUIVEL 07/25/20 11:37 Subjective Subjective Patient is a 25-year-old female lying in bed, alert and oriented x3. On my examination, patient was writhing in pain in bed complaining of pain and tingling in the upper and lower extremities. Patient states that pain is unresponsive to current pain regimen. Patient did not want this provider to conduct a physical examination of her. Objective Data Objective Data Vital Signs: Vital Signs Temp Pulse Resp BP Pulse Ox 98.7 F 101 H 16 114/64 97 07/25/20 09:25 07/25/20 09:25 07/25/20 09:25 07/25/20 09:25 07/25/20 09:25 Oxygen Delivery Method Room Air Weight: 118 lb 7.492 oz Body Mass Index (BMI) 23.9 Lab / Micro Data Result Diagrams: 07/24/20 19:07 07/24/20 19:07 Labs: Laboratory Results - last 24 hr 07/24/20 07/24/20 07/24/20 16:45 18:45 19:07 WBC 8.8 RBC 4.74 Hgb 13.7 Hct 41.4 MCV 87.3 MCH 28.9 MCHC 33.1 RDW Std Deviation 38.9 RDW Coeff of [place] 12.1 Plt Count 321 MPV 9.2 Immature Gran % (Auto) 0.500 Neut % (Auto) 55.4 Lymph % (Auto) 30.6 [place] % (Auto) 9.0 Eos % (Auto) 3.8 Baso % (Auto) 0.7 Absolute Neuts (auto) 4.9 Absolute Lymphs (auto) 2.68 Nucleated RBC % 0 Sodium Potassium Chloride Carbon Dioxide Anion Gap BUN Creatinine Estim Creat Clear Calc Est GFR (MDRD) Af Amer Est GFR (MDRD) Non-Af BUN/Creatinine Ratio Glucose Calcium Total Bilirubin AST ALT Alkaline Phosphatase Total Protein Albumin Globulin Albumin/Globulin Ratio Serum , Qual Urine Color Yellow Urine Clarity Clear Urine pH 7.0 Ur Specific [place] 1.010 Urine Protein Negative Urine Glucose (UA) Normal Urine Ketones Negative Urine Occult Blood Negative Urine Nitrite Negative Urine Bilirubin Negative Urine Urobilinogen Normal Ur Leukocyte Esterase Negative Urine RBC 0 SEEN Urine WBC 0 SEEN Ur Squamous Epith Cells 0-5 SEEN Urine Bacteria 0 SEEN Urine Mucus 0 SEEN Urine Opiates Screen POSITIVE H Urine Methadone Screen NEGATIVE Ur Barbiturates Screen NEGATIVE Ur Phencyclidine Scrn NEGATIVE Ur Amphetamines Screen NEGATIVE U Methamphetamin-MDMA NEGATIVE U Benzodiazepines Scrn POSITIVE H Urine Cocaine Screen NEGATIVE U Cannabinoids Screen NEGATIVE Ur Drug Screen Comment Ethyl Alcohol 07/24/20 07/24/20 07/24/20 19:07 19:07 19:07 WBC RBC Hgb Hct MCV MCH MCHC RDW Std Deviation RDW Coeff of [place] Plt Count MPV Immature Gran % (Auto) Neut % (Auto) Lymph % (Auto) [place] % (Auto) Eos % (Auto) Baso % (Auto) Absolute Neuts (auto) Absolute Lymphs (auto) Nucleated RBC % Sodium 140 Potassium 3.7 Chloride 102 Carbon Dioxide 31.0 Anion Gap 7 BUN 4 L Creatinine 0.77 Estim Creat Clear Calc 95.29 Est GFR (MDRD) Af Amer 116 Est GFR (MDRD) Non-Af 96 BUN/Creatinine Ratio 5.2 L Glucose 86 Calcium 9.0 Total Bilirubin 0.70 AST 50 H ALT 75 H Alkaline Phosphatase 107 Total Protein 7.5 Albumin 3.5 Globulin 4.0 Albumin/Globulin Ratio 0.9 Serum , Qual NEGATIVE Urine Color Urine Clarity Urine pH Ur Specific [place] Urine Protein Urine Glucose (UA) Urine Ketones Urine Occult Blood Urine Nitrite Urine Bilirubin Urine Urobilinogen Ur Leukocyte Esterase Urine RBC Urine WBC Ur Squamous Epith Cells Urine Bacteria Urine Mucus Urine Opiates Screen Urine Methadone Screen Ur Barbiturates Screen Ur Phencyclidine Scrn Ur Amphetamines Screen U Methamphetamin-MDMA U Benzodiazepines Scrn Urine Cocaine Screen U Cannabinoids Screen Ur Drug Screen Comment Ethyl Alcohol < 3.0 Radiography Diagnostic Testing: Radiology Impression Hand X-Ray 07/24/20 18:37 IMPRESSION: No acute radiographic abnormalities. Electronically Signed: Bernabe Infante MD at 19:17 EDT Tel , Service support , Physical Exam Narrative Physical exam extremely limited due to lack of patient cooperation. Const alert Constitutional Narrative: Patient extremely agitated on my examination. General Appearance: uncooperative HEENT head/scalp atraumatic Head and Scalp: normocephalic Eyes Eyes Narrative: Unable to examine. Neck no lymphadenopathy, supple and no JVD Resp normal respiratory effort, no retractions and no use of accessory muscles Cardio regular rate and regular rhythm GI GI Narrative: Unable to examine. Extremity Extremity Narrative: LUE showed no erythema, swelling or tenderness. Skin Skin Narrative: LUE showed no erythema, swelling or tenderness. Neuro Neuro Narrative: Unable to examine. Psych Appearance: bizarre Attitude: uncooperative, guarded, agitated, aggressive and hostile Assessment & Plan Assessment/Plan (1) IV drug abuse: (2) Dysuria: (3) Thrombophlebitis arm: (4) Tobacco abuse: PLAN: See subjective/PE for patient presentation. Physical exam extremely limited due to lack of patient cooperation and agitation. 1) Opioid abuse and withdrawal Continue subutex, gabapentin as needed, dicyclomine as needed Vistaril as needed methocarbamol as needed, clonidine as needed, Imodium as needed, trazodone as needed and Zofran as needed. Continue to monitor COWS and CINA score. 2) Tobacco abuse Continue nicotine patch and gum (PRN). 3) Dysuria CBC, BMP and UA unremarkable. Vital signs stable. Plan; urine culture pending. DVT prophylaxis -low risk, not indicated Patient seen by Skinny Jones PA-C, under the supervision of Dr. Krause. Documented by User: Dr. Fatimah Krause MD 07/25/20 13:43 Objective Data Lab / Micro Data Result Diagrams: 07/24/20 19:07 07/24/20 19:07 Addendum Addendum: This patient was seen in conjunction with ALVIN Price. I have independently interviewed and examined the patient and reviewed pertinent historical, laboratory, and other data. Please refer to ALVIN Price's note for his patient's presentation, findings, and recommendations. I have reviewed and his note and concur with his documentation Patient was seen and examined. She was irritable and did not want to speak to me. She stated that she was trying to sleep. Discussed with nursing staff, no acute events. Chart reviewed. Meds reviewed ASSESSMENT: 1. Acute opioid withdrawal 2. Nicotine dependence Plan: Continue on Subutex withdrawal Visit Charges Inpatient E&M: 71252 Subs Hosp L2
[2020-07-25 13:00] VITALS: BP 94/65; PULSE 84; RESP 16; TEMP 37.1; O2SAT 95
[2020-07-25 13:32] VITALS: O2SAT 96
[2020-07-25] MEDS: Ibuprofen 600 MG Tablet PO (15:53)
[2020-07-25 17:33] VITALS: BP 108/79; PULSE 101; RESP 16; TEMP 36.8; O2SAT 98
[2020-07-25 22:08] VITALS: BP 96/66; PULSE 80; RESP 16; TEMP 37.4; O2SAT 95
[2020-07-25] MEDS: Ondansetron 8 MG Tablet PO (22:17)
[2020-07-25] MEDS: traZODone 100 MG Tablet PO (22:17)
[2020-07-26 01:30] VITALS: BP 92/60
[2020-07-26] MEDS: Gabapentin 300 MG Capsule PO ×2 (01:31→09:18)
[2020-07-26 03:37] VITALS: BP 107/73; PULSE 102; RESP 16; TEMP 37.6; O2SAT 98
[2020-07-26] MEDS: Nicotine Polacrilex 2 MG GUM PO (03:47)
[2020-07-26] MEDS: cloNIDine HCl 0.1 MG Tablet PO ×2 (03:47→11:27)
[2020-07-26] MEDS: hydrOXYzine PAM 25 MG Capsule 50 MG PO ×2 (05:23→11:26)
[2020-07-26] MEDS: Buprenorphine HCl 2 MG TAB.SUBL SL ×2 (05:23→12:31)
[2020-07-26] MEDS: Methocarbamol 750 MG Tablet 1500 MG PO ×2 (05:23→11:27)
[2020-07-26 07:43] VITALS: O2SAT 97
[2020-07-26 09:14] VITALS: BP 92/52; PULSE 70; RESP 16; TEMP 37; O2SAT 97
[2020-07-26] MEDS: Enoxaparin 40 MG/0.4 ML Syringe SC (09:17)
[2020-07-26] MEDS: Docusate Sodium 100 MG Capsule PO (11:27)
[2020-07-26 11:28] VITALS: BP 122/71; PULSE 89
--- NOTE | 2020-07-26 13:23 | PN.HOSP_ITS ---
Documented by User: Skinny ESQUIVEL 07/26/20 13:31 Subjective Subjective Patient is a 25-year-old female lying in bed, alert and oriented x3. Patient reports feeling pain and restlessness throughout her body. Continues to ask for additional pain meds. Denies being able to eat much. Objective Data Objective Data Vital Signs: Vital Signs Temp Pulse Resp BP Pulse Ox 98.6 F 89 16 122/71 H 97 07/26/20 09:14 07/26/20 11:28 07/26/20 09:14 07/26/20 11:28 07/26/20 09:14 Oxygen Delivery Method Room Air Weight: 118 lb 7.492 oz Body Mass Index (BMI) 23.9 Intake & Output: Intake and Output for Last 24 Hours 07/24/20 07/25/20 07/26/20 23:59 23:59 23:59 Intake Total 420 / 1080 1940 / 1940 Balance 420 / 1080 1940 / 1940 Lab / Micro Data Result Diagrams: 07/24/20 19:07 07/24/20 19:07 Micro: Microbiology 07/24/20 16:45 Urine, Clean Catch Urine Culture - Preliminary Culture exhibits no growth. Physical Exam Narrative See subjective. Const alert and oriented x3 General Appearance: uncooperative Orientation / Consciousness: lethargic Nutritional Appearance: thin HEENT head/scalp atraumatic and moist oral mucous membranes Head and Scalp: normocephalic Eyes PERRL, EOMs intact bilaterally and conjunctivae normal Neck no lymphadenopathy, supple and no JVD Resp normal respiratory effort, no retractions, no use of accessory muscles and clear to auscultation bilaterally Cardio regular rate, regular rhythm, no murmurs and no JVD GI normal to inspection, nondistended, normoactive bowel sounds, soft to palpation and non-distended Extremity normal to inspection, full ROM and no clubbing, cyanosis or edema Skin no rashes or lesions noted, no wounds and skin turgor normal Neuro CN's II-XII intact bilaterally Psych affect normal Assessment & Plan Assessment/Plan (1) Drug abuse: (2) Dysuria: (3) Thrombophlebitis arm: (4) Tobacco abuse: PLAN: Patient continues to complain of of pain and restlessness throughout her body. Patient also continues to ask for additional medications to help control her discomfort. Was explained to the patient that she is on the appropriate dose of medications given her diagnoses. Patient proceeded to rollover in bed and cover herself with a blanket. 1) Opioid abuse and withdrawal Most recent MILAGROS a score 7. Patient already sees a counselor at [address] [place] [address] services, counselor contacted in regards to patient admission. Continue subutex, gabapentin as needed, dicyclomine as needed Vistaril as needed methocarbamol as needed, clonidine as needed, Imodium as needed, trazodone as needed and Zofran as needed. Continue to monitor COWS and CINA score. 2) Tobacco abuse Continue nicotine patch and gum (PRN). 3) Dysuria CBC, BMP and UA unremarkable. Vital signs stable. Urine culture demonstrates no growth. Plan; continue to monitor. DVT prophylaxis -low risk, not indicated Patient seen by Skinny Jones PA-C, under the supervision of Dr. Krause. Documented by User: Dr. Fatimah Krause MD 07/26/20 13:39 Objective Data Lab / Micro Data Result Diagrams: 07/24/20 19:07 07/24/20 19:07 Addendum Addendum: This patient was seen in conjunction with ALVIN Price. I have independently interviewed and examined the patient and reviewed pertinent historical, laboratory, and other data. Please refer to ALVIN Price's note for his patient's presentation, findings, and recommendations. I have reviewed and his note and concur with his documentation Patient was seen and examined. No new complaints. Physical exam: General: Alert, Oriented x3, Cooperative, No apparent distress, Well developed HEENT: Atraumatic Oral: Moist Mucosa Neck: Supple Lungs: Clear to auscultation Cardiovascular: HS I+II, regular, no murmurs Abdomen: Bowel Sounds Present, Soft, Non Tender Extremities: No edema Skin: No rashes, No breakdown Neurological: Grossly intact Psych/Mental Status: Appropriate ASSESSMENT: 1. Acute opioid withdrawal 2. Nicotine dependence Plan: Continue on Subutex withdrawal Visit Charges Inpatient E&M: 74208 Subs Hosp L2
--- NOTE | 2020-07-26 14:55 | NURSING ---
Pt calls RN to room-states she's requesting to leave. Pt encouraged to stay to finish the program. Pt continues to ask to leave AMA, states she doesn't get enough meds and her hair is a mess. Offered pt comb and assisted with hair, but pt continues to insist on leaving. AMA paper signed, copy given to pt. Dr. Pennington notified.
--- NOTE | 2020-07-26 16:46 | DS.PCM_ITS ---
Documented by User: Skinny ESQUIVEL 07/26/20 16:57 Providers Date of Admission: 07/24/20 Primary Care Physician: Bethany Primary Care Phys Reason For Visit: OPIOID ABUSE Diagnosis Discharge Diagnosis (1) Drug abuse: Status: Chronic (2) Dysuria: Status: Acute Code(s): R30.0 - Dysuria (3) Thrombophlebitis arm: Status: Acute Code(s): I80.8 - Phlebitis and thrombophlebitis of other sites (4) Tobacco abuse: Status: Chronic Code(s): Z72.0 - Tobacco use Medications at Discharge Home Medications acyclovir 400 mg tablet 400 mg PO BID PRN 02/26/19 polyethylene glycol 3350 17 gram/dose oral powder 17 g PO BID PRN 02/26/19 baclofen 10 mg PO TIDCM PRN 06/08/20 gabapentin 600 mg PO TIDCM 06/08/20 norethindrone-e.estradiol-iron 1 each PO DAILY 06/08/20 pregabalin 75 mg PO BID 06/08/20 Hospital Course Summary of Care Provided Hospital Course: Patient left AGAINST MEDICAL ADVICE. Please see progress note from today for full hospital course from today. Patient left on day 2 of her a dmission for opioid detoxification. Physical Exam Narrative Please see progress note from today for full physical exam. ABG / Lab / Microbiology Data Result Diagrams: 07/24/20 19:07 07/24/20 19:07 Microbiology: Microbiology 07/24/20 16:45 Urine Culture - Preliminary Urine, Clean Catch Culture exhibits no growth. Microbiology 07/24/20 16:45 Urine, Clean Catch Urine Culture - Preliminary Culture exhibits no growth. Meaningful Use Info Meaningful Use Diagnoses (Choose all that apply): None applicable Discharge Plan Admission Admit Date/Time: 07/24/20 20:11 Attending Provider: Fatimah Krause Primary Care Provider: Care Physician,Bethany Primary Discharge Orders/Prescriptions Prescriptions: No Action polyethylene glycol 3350 [Miralax] 17 gram/dose powder 17 g PO BID PRN (Reason: Constipation) RF: 0 acyclovir 400 mg tablet 400 mg PO BID PRN (Reason: Not Specified) RF: 0 gabapentin 400 MG capsule 600 mg PO TIDCM RF: 0 norethindrone-e.estradiol-iron 1 EACH tablet 1 each PO DAILY RF: 0 baclofen 10 MG tablet 10 mg PO TIDCM PRN (Reason: muscle spasms) RF: 0 pregabalin 75 MG capsule 75 mg PO BID RF: 0 Referrals / Follow Up: Care Physician,No Primary [Primary Care Provider] - Disposition Disposition (needs filled in before D/C Order can be placed): Against Medical Advice Documented by User: Dr. Fatimah Krause MD 07/26/20 17:43 Providers Date of Admission: 07/24/20 Reason For Visit: OPIOID ABUSE Medications at Discharge Home Medications acyclovir 400 mg tablet 400 mg PO BID PRN 02/26/19 polyethylene glycol 3350 17 gram/dose oral powder 17 g PO BID PRN 02/26/19 baclofen 10 mg PO TIDCM PRN 06/08/20 gabapentin 600 mg PO TIDCM 06/08/20 norethindrone-e.estradiol-iron 1 each PO DAILY 06/08/20 pregabalin 75 mg PO BID 06/08/20 ABG / Lab / Microbiology Data Result Diagrams: 07/24/20 19:07 07/24/20 19:07 Discharge Plan Admission Admit Date/Time: 07/24/20 20:11 Attending Provider: Fatimah Krause Primary Care Provider: Care Physician,Bethany Primary Discharge Orders/Prescriptions Prescriptions: No Action polyethylene glycol 3350 [Miralax] 17 gram/dose powder 17 g PO BID PRN (Reason: Constipation) RF: 0 acyclovir 400 mg tablet 400 mg PO BID PRN (Reason: Not Specified) RF: 0 gabapentin 400 MG capsule 600 mg PO TIDCM RF: 0 norethindrone-e.estradiol-iron 1 EACH tablet 1 each PO DAILY RF: 0 baclofen 10 MG tablet 10 mg PO TIDCM PRN (Reason: muscle spasms) RF: 0 pregabalin 75 MG capsule 75 mg PO BID RF: 0 Referrals / Follow Up: Care Physician,No Primary [Primary Care Provider] - Disposition Disposition (needs filled in before D/C Order can be placed): Against Medical Advice Addendum Addendum: This patient was seen in conjunction with ALVIN Price. I have independently interviewed and examined the patient and reviewed pertinent historical, laboratory, and other data. Please refer to ALVIN Price's note for his patient's presentation, findings, and recommendations. I have reviewed and his note and concur with his documentation 25-year-old female past medical history of heroin use disorder, history of recurrent discharge AGAINST MEDICAL ADVICE comes in requesting for medical st abilization. Patient was admitted to the [facility] floor and managed on the Subutex withdrawal protocol. Patient wanted an increase in her Subutex dose. She signed out AGAINST MEDICAL ADVICE again this afternoon. Refer to physical exam of the day. Visit Charges Inpatient E&M: 30581 Disch Hosp
== END 2020-07-26 14:55 | disposition left against medical advice (07) ==
LOC: ED 20:04 → MS3 20:15
PROVIDERS: Admitting Provider Hospitalist; Emergency Provider Emergency Medicine; Visit Provider Internal Medicine
DX: F11.23 Opioid dependence with withdrawal (principal); R30.0 Dysuria; K21.9 Gastro-esophageal reflux disease without esophagitis; M79.7 Fibromyalgia; Z86.19 Personal history of other infectious and parasitic diseases; Z79.899 Other long term (current) drug therapy; R56.9 Unspecified convulsions; G43.909 Migraine, unspecified, not intractable, without status migrainosus; F17.200 Nicotine dependence, unspecified, uncomplicated; I80.8 Phlebitis and thrombophlebitis of other sites; R39.15 Urgency of urination
CPT/HCPCS: 73130; 80053; 80307; 81001; 82077; 84703; 85025; 87086; 99284; H0012

== ENCOUNTER 2020-09-19 10:41 | Emergency (ER) | payer MEDICAID, SELFPAY ==
[2020-09-19] VITALS (12 sets, daily range): BP systolic 119–165; BP diastolic 80–107; PULSE 72–138; RESP 14–22; TEMP 35.9; O2SAT 95–100; BMI 25.0
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
[2020-09-19] MEDS: Ziprasidone IM 20 MG/ML VIAL IM (10:51)
[2020-09-19] MEDS: LORazepam 2 MG/ML Syringe IM ×2 (10:51→12:54)
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
[2020-09-19] MEDS: LORazepam 2 MG/ML Syringe 1 MG IM (12:12)
[2020-09-19] MEDS: Haloperidol Lactate 5 MG/ML Vial IM ×2 (12:12→12:54)
[2020-09-19 13:06] LABS: Bedside Glucose 112 mg/dL (70-110)
--- NOTE | 2020-09-19 13:18 | ED.RN ---
Jose Manuel attempted iv access/blood draw x3 without success. 1 tube sent to lab from attempts. Pt continues to thrash and will not follow commands or cooperate with care.
[2020-09-19 13:42] LABS: Alcohol, Blood (Medical)-Serum < 3.0 mg/dL; Anion Gap 9 (5-15); BUN 6 mg/dL (7-18); BUN/Creat Ratio 7.6 RATIO (10-20); Calcium,Total 8.8 mg/dL (8.5-10.1); Chloride 106 mmol/L (98-107); Creatinine, Serum 0.79 mg/dL (0.55-1.02); EST Glomerular Filtration Rate 92 mL/min (>60); Est Glom Filt Rate - Afr Amer 111 mL/min (>60); Estimated Creatinine Clearance 94.73 ml/min; Glucose 102 mg/dL (74-106); Internal QC Validated? YES +Cl - CLEAR BKGD; Potassium 4.4 mmol/L (3.5-5.1); Pregnancy, Serum, hCG Quali. NEGATIVE Negative; Sodium Level 140 mmol/L (136-145)
[2020-09-19 13:57] LABS: Absolute Lymphocyte Count 0.83 X10^3/uL (0.83-4.51); Absolute Neutrophil Count 7.1 X10^3/uL (2.0-7.7); Basophil# 0.02 X10^3/uL; Basophil% 0.2 % (0-1); Eosinophil# 0.01 X10^3/uL; Eosinophils% 0.1 % (0-5); Hemoglobin 12.1 g/dL (12.0-15.0); Lymphocyte # 0.83 X10^3/ul (0.83-4.51); Mean Corp Hgb Conc 32.7 g/dL (32-36); Mean Corpuscular Hgb 28.2 pg (27.0-32.0); Mean Corpuscular Volume 86.2 fL (81-99); Mean Platelet Vol. 9.7 fl (6.2-12.0); Monocyte% 3.6 % (0-10); NRBC Flagged by Analyzer 0 % (0-5); Neutrophil % 85.7 % (47-70); Platelet Count 247 K/mm3 (150-450); RBC Distribution Width CV 12.3 % (11.6-14.6); RBC Distribution Width SD 38.6 fl (35.1-43.9); Red Blood Count 4.29 M/mm3 (4.2-5.4); White Blood Count 8.3 K/mm3 (4.4-11.0)
[2020-09-19 14:20] LABS: Amphetamine Urine VISTA POSITIVE (<1000 ng/mL); Barbiturate Urine VISTA NEGATIVE (< 200 ng/mL); Benzodiazepine Urine VISTA NEGATIVE (< 200 ng/mL); Cocaine Urine VISTA NEGATIVE (< 300 ng/mL); Ecstacy Urine VISTA POSITIVE (< 500 ng/mL); Methadone Urine VISTA NEGATIVE (< 300 ng/mL); PCP Urine VISTA NEGATIVE (< 25 ng/mL); THC Urine VISTA NEGATIVE (< 50 ng/mL); Vista UDS pH Range 6
[2020-09-19] MEDS: 0.9% Normal Saline 1,000 ML 150 ML IV (14:34)
[2020-09-20 00:30] VITALS: BP 128/74; PULSE 78; RESP 14; O2SAT 98
[2020-09-20 03:19] VITALS: BP 107/74; PULSE 78; RESP 13; O2SAT 99
[2020-09-20 05:04] VITALS: RESP 17
[2020-09-20 05:29] VITALS: BP 119/67; PULSE 74; RESP 13; O2SAT 98
--- NOTE | 2020-09-20 06:07 | ED.RN ---
Called Radha, , and LMOM to let know patient needs a ride home and asked her to come get her or call us back if calling around for someone else to get her, cannot come, etc. Will make second attempt before leaving at 7am today.
--- NOTE | 2020-09-20 06:10 | ED.RN ---
Mom calls back and reports patient has been out of the house and is not allowed back and states she cannot handle her anymore. She wants the patient to go to treatment and states if she declines, she needs to call someone else to come and get her.
--- NOTE | 2020-09-20 06:38 | ED.RN ---
patient decline detox and asks this nurse to call [facility] to come get her. States she does not have money for a cab. [facility]'s number os [phone] per the patient. Ca..ed [facility] and tiburcio munoz to call back regarding the patient.
== END 2020-09-20 06:48 | disposition home or self-care (01) ==
PROVIDERS: Emergency Medicine; Emergency Provider Emergency Medicine
DX: F15.10 Other stimulant abuse, uncomplicated (principal); R45.1 Restlessness and agitation; Z78.1 Physical restraint status; G43.909 Migraine, unspecified, not intractable, without status migrainosus; R56.9 Unspecified convulsions; K21.9 Gastro-esophageal reflux disease without esophagitis; F17.210 Nicotine dependence, cigarettes, uncomplicated; Z79.899 Other long term (current) drug therapy
CPT/HCPCS: 80048; 80307; 82077; 82962; 84703; 85025; 96360; 96361; 96372; 99285; P9612; A4216; J3486

== ENCOUNTER 2020-10-22 22:46 | Emergency (ER) | payer MEDICAID, SELFPAY ==
[2020-09-19 10:42] VITALS: BMI 25.0
[2020-10-22 22:48] VITALS: BP 119/88; PULSE 108; RESP 20; TEMP 36.7; O2SAT 95; BMI 23.2
--- NOTE | 2020-10-22 23:44 | CCN.REFER ---
PT STATES SHE JUST TALKED TO HER MOM AND HER MOM STATED SHE IS BEING DISCHARGED. PT STATES SHE IS READY TO GO HOME AND GO TO BED. PT THEN AMBULATED FROM ER WITH A OLDER GENTLEMAN.
== END 2020-10-22 23:48 | disposition left against medical advice (07) ==
LOC: ED 23:51
DX: F19.10 Other psychoactive substance abuse, uncomplicated (principal); Z53.29 Procedure and treatment not carried out because of patient's decision for other reasons

== ENCOUNTER 2020-11-12 01:18 | Emergency (ER) | payer MEDICAID, SELFPAY ==
[2020-11-12 01:18] VITALS: BP 104/67; PULSE 64; RESP 18; TEMP 36.8; O2SAT 98; BMI 21.3
[2020-11-12 01:21] VITALS: BP 104/67; PULSE 64; RESP 18; TEMP 36.8; O2SAT 98
--- NOTE | 2020-11-12 02:01 | EDS_ITS ---
HPI History of Present Illness Chief Complaint: Wound Informant: patient and parent Onset/Context/Timing Onset: Days (2) Context: Gradual Onset Timing: Continuous Quality of Pain: Throbbing Location: left forearm Current Severity: Severe Maximum Severity: Severe Worsened by: moving elbow, palpatino Relieved by: nothing Associated Symptoms Associated Symptoms: Negative for Parasthesia and Weakness Narrative Narrative: IV drug abuser, she states she developed an infection she thinks is related to injecting methamphetamine. [id number], complaining of pain, redness, infection right forearm/elbow area. Hurts a lot to try to straighten her arm out which she is unwilling to do. She denies any systemic symptoms other than her normal malaise and jitteriness, and also states she has had sore throat, cough, congestion for over a month. She states she was at [facility] and had a negative Covid test recently for this. The patient does not know what part of her left forearm rash started first, and where it spread from/to. [facility] Medical History Carpal tunnel syndrome Fibromyalgia GERD (gastroesophageal reflux disease) Hepatitis Low potassium syndrome Migraines Seasonal allergies Seizures Substance abuse Vitamin deficiency Home Medications cephalexin 500 mg PO Q6 #40 capsule 11/12/20 [Rx Last Taken Unknown] Allergy/AdvReac Type Severity Reaction Status Date / Time clindamycin Allergy Mild Unknown Verified 11/12/20 01:22 nickel [Nickel] Allergy Unknown Verified 11/12/20 01:22 Penicillins Allergy Shortness Verified 11/12/20 01:22 of breath dicyclomine [From Bentyl] AdvReac cramps, Verified 11/12/20 01:22 constipation, chest pain doxycycline AdvReac Vomiting Verified 11/12/20 01:22 metronidazole [From Flagyl] AdvReac Upset Verified 11/12/20 01:22 Stomach sulfamethoxazole AdvReac Upset Verified 11/12/20 01:22 [From Bactrim] Stomach trimethoprim [From Bactrim] AdvReac Upset Verified 11/12/20 01:22 Stomach Family History Father Diabetes Grandfather Diabetes Grandmother Diabetes Other Alcoholism Allergies Anxiety Anxiety and depression Arthritis Asthma defect Bowel disease CVA (cerebral vascular accident) Heart disease High cholesterol Hypertension Kidney disease Liver disease Mental disorder Myocardial infarction Psychiatric care Surgical History HISTORY NECK INJECTIONS History of History of appendectomy History of colonoscopy History of shoulder surgery Social History (Updated 11/12/20 @ 02:[address] Shamir Morris MD) Smoking Status: Current every day smoker tobacco type: cigarettes alcohol intake: never substance use type: IV drugs and methamphetamine what type of physical activity do you participate in: none ROS ROS ED Constitutional Constitutional ED: Denies chills or fever(s) ENT ENT ED: Reports nasal congestion and sore throat Respiratory/Chest Respiratory/Chest: Reports cough; Denies dyspnea Genitourinary Genitourinary ED: Reports other Details: History of UTIs, no urinary symptoms but having vaginal discomfort and a nasty discharge. Musculoskeletal Musculoskeletal: Reports extremity pain; Denies neck pain Integumentary Reports as per HPI, rash, wounds and other Details: no discharge from any LUE wounds ; Denies Abrasions Neurologic Neurologic: Denies paresthesias or weakness EXAM Physical Exam Const Vital Signs: 11/12/20 01:18 11/12/20 01:21 Temperature 98.3 F 98.3 F Temperature Source Temporal Temporal Pulse Rate 64 64 Respiratory Rate 18 18 Blood Pressure 104/67 104/67 Blood Pressure Mean 79 79 Pulse Ox 98 98 Oxygen Delivery Method Room Air Room Air Positive well nourished and well developed General Appearance ED: well developed and NAD HEENT HEENT Narrative: No trismus. Unable to evaluate posterior oropharynx due to agitation and the patient unable to sit still. Neck full ROM and supple Back/Spine normal ROM and normal to inspection Neuro oriented x3, no focal motor deficits and no sensory deficits noted Sensorium / Orientation: alert Psych thought process normal Psych Narrative: Very agitated. Continuous purposeful movements of extremities such as grabbing the bed rail and pulling herself around the bed. Skin Skin Narrative: Indurated very tender erythema left forearm. Does not involve any joints, but goes up to the elbow from the medial aspect of the antecubital fossa down and around towards the ulnar aspect, involving more medial soft tissues than anything. I do not palpate an abscess, however exam is extremely limited due to the patient with drawling and biting that the examiner's hand during my attempt to examine her, as well as jumping around the bed. There is no fluctuance or pointing for an obvious abscess, nor is there any evidence of discharge from any lesions. No lymphangitis. MDM MDM MDM Narrative Medical decision making narrative: Nurses were able to get a Hep-Lock in her hand. I do not think getting labs are is necessarily going to be helpful here. Her vital signs are normal, this clearly appears to be infectious, and I do not think she is septic. I do not think she would tolerate incision and drainage without sedation, and I am not confident that there is definitely an abscess here. Therefore at this time, I recommend antibiotics and the patient wants that as well, she does not want me to attempt incision and drainage. She has multiple medication allergies, she was given a dose of vancomycin 15 mg/kg. Prior to discharge she states she is having vaginal pain and discharge without abdominal pain and she has been having this for a week or 2, she was seen at [facility] but they did not give me any information. She is wondering if the antibiotics we prescribe her will help with this. She is unclear if she could have been exposed to an STD recently. She is allergic to the medications we use to treat bacterial vaginosis so in all honesty I do not think a pelvic exam to do a swab will necessarily be helpful, since I can test for gonorrhea and chlamydia with a urine specimen which she was amenable to. That will not come back tonight. I discussed several of her medication allergies with her. She states with clindamycin, Flagyl, doxycycline, and Bactrim she gets the same symptoms which are basically flulike symptoms and she absolutely refuses to take any of them because she absolutely cannot tolerate any of them. She understands that these are going to be much better at covering MRSA which this probably is. She asked for something for pain, so she was given Toradol as I am not comfortable giving her narcotics given her history, and later asked for something for nausea and wanted it given in the IV so she was given Reglan (after pt pulled her IV out and RNs placed a 2nd). Lab Data Attestation: I reviewed the patient's lab results. Lab results narrative: Urinalysis negative for acute infection. GC and chlamydia sent and pending. Discharge Plan Triage Chief Complaint: Wound ED Provider: Shamir Morris Dx/Rx/DC Orders Clinical Impression: Cellulitis of forearm, left, IV drug abuse Instructions: ED Cellulitis Prescriptions: New cephalexin [cephalexin] 500 MG capsule 500 mg PO Q6 Qty: 40 RF: 0 Primary Care Provider: Care Physician,No Primary Referrals: Dora Sebastian [NON-STAFF] - 3-5 Days if not improving Care Physician,No Primary [Primary Care Provider] - Disposition Disposition: Home, Self Care
[2020-11-12] MEDS: Ketorolac 30 MG/ML Syringe IV (02:46)
[2020-11-12 02:47] VITALS: BP 142/78; PULSE 74; RESP 16; TEMP 36.9; O2SAT 97
[2020-11-12] MEDS: Metoclopramide 10 MG/2 ML Vial 5 MG IV (02:59)
[2020-11-12 03:00] VITALS: BP 93/68; PULSE 80; RESP 19; TEMP 36.9; O2SAT 98
[2020-11-12 03:01] LABS: Mucous, Urine 0 SEEN /hpf (<or=2+); Red Blood Cells-Urine 0 SEEN /hpf (0-5)
[2020-11-12 03:08] LABS: Color, Urine Yellow (Yellow); Glucose, Dipstick Normal (Normal); Ketone-Dipstick Negative (Negative); Leukocyte Esterase-Dipstick Negative /ul (Negative); Nitrite-Dipstick Negative (Negative); Occult Blood-Urine 25 /ul (Negative); Protein-Dipstick 15 mg/dl (Negative); Specific Gravity, Urine 1.005 (1.002-1.030); Urine Bilirubin Dipstick Negative (Negative); Urine Clarity Sl. Cloudy (Clear); Urine Urobilinogen 1 mg/dl (Normal); Urine pH 6.5 (5.0 - 8.0)
[2020-11-12 03:16] LABS: Bacteria 1+ /hpf (None Seen); Squamous Epithelial Cells - UA 0-5 SEEN /hpf (5-10); White Blood Cells 0-5 SEEN /hpf (0-5)
[2020-11-12 03:31] VITALS: PULSE 80
[2020-11-12 04:07] VITALS: BP 100/64; PULSE 80; RESP 14; TEMP 36.6; O2SAT 98
[2020-11-12 10:25] LABS: Chlamydia Trachomatis by PCR Negative (Negative); Neisserai gonorrhoeae by PCR Negative (Negative); Probe Check PASS; Sample Adequacy Control PASS; Specimen Processing Control PASS
== END 2020-11-12 04:37 | disposition home or self-care (01) ==
LOC: ED 02:23
PROVIDERS: Emergency Provider Emergency Medicine
DX: L03.114 Cellulitis of left upper limb (principal); F19.10 Other psychoactive substance abuse, uncomplicated; F17.210 Nicotine dependence, cigarettes, uncomplicated
CPT/HCPCS: 81001; 87491; 87591; 96365; 96366; 96375; 99283; J7050; A4216

== ENCOUNTER 2020-11-13 11:12 | Emergency (ER) | payer MEDICAID, SELFPAY ==
[2020-11-13 11:12] VITALS: BP 121/85; PULSE 15; RESP 16; TEMP 36.9; O2SAT 100; BMI 20.6
--- NOTE | 2020-11-13 11:21 | ED.RN ---
Pt annoyed that she has to go to the waiting room. Pt stated that the last time they took her straight back. This nurse explained to pt that all of the room in the back were full. Pt stated well arent some things more important than others? urgent care said that if I didnt come here I was going to lose my arm. Pt advised that she would have to have a seat in the waiting room and we would get her back as soon as we can.
== END 2020-11-13 13:00 | disposition home or self-care (01) ==
LOC: ED 13:41
DX: Z00.00 Encounter for general adult medical examination without abnormal findings (principal)

== ENCOUNTER 2020-11-14 04:58 | Emergency (ER) | payer MEDICAID, SELFPAY ==
[2020-11-14 04:58] VITALS: BP 133/102; PULSE 106; RESP 16; TEMP 36.8; O2SAT 99; BMI 22.4
[2020-11-14 05:01] VITALS: BP 133/102; PULSE 106; RESP 16; TEMP 36.8; O2SAT 99
--- NOTE | 2020-11-14 05:11 | EDS_ITS ---
HPI History of Present Illness Chief Complaint: Cellulitis Informant: patient Narrative Narrative: Patient presents with erythema of her left arm. She states is not getting better. She was seen here about a day and a half ago. She was given IV vancomycin. She was given a prescription for cephalexin. She states she did fill it and has taken either 2 or 3 doses. Nothing makes her symptoms better or worse. She would like something for pain. No nausea vomiting. No fevers. I had read prior dictation. There were some concerns about reactions to multiple antibiotics. She refused to take many antibiotics. When I asked her about the she can tell me specifically Bactrim and penicillin. But if I ask about doxycycline or clindamycin she says all of that. I cannot get her to tell me exactly what antibiotics she has a reaction to or what the reactions are. I think this patient could benefit from the addition of Bactrim, Doxy or clindamycin. PFSH PFS Medical History Carpal tunnel syndrome Fibromyalgia GERD (gastroesophageal reflux disease) Hepatitis Low potassium syndrome Migraines Seasonal allergies Seizures Substance abuse Vitamin deficiency Home Medications cephalexin 500 mg PO Q6 #40 capsule 11/12/20 [Rx Last Taken Unknown] clindamycin HCl [Cleocin HCl] 300 mg PO Q6H #40 cap 11/14/20 [Rx Last Taken Unknown] ondansetron 4 mg PO Q8H PRN #10 tab 11/14/20 [Rx Last Taken Unknown] Allergy/AdvReac Type Severity Reaction Status Date / Time clindamycin Allergy Mild Unknown Verified 11/13/20 11:14 nickel [Nickel] Allergy Unknown Verified 11/13/20 11:14 Penicillins Allergy Shortness Verified 11/13/20 11:14 of breath dicyclomine [From Bentyl] AdvReac cramps, Verified 11/13/20 11:14 constipation, chest pain doxycycline AdvReac Vomiting Verified 11/13/20 11:14 metronidazole [From Flagyl] AdvReac Upset Verified 11/13/20 11:14 Stomach sulfamethoxazole AdvReac Upset Verified 11/13/20 11:14 [From Bactrim] Stomach trimethoprim [From Bactrim] AdvReac Upset Verified 11/13/20 11:14 Stomach Family History Father Diabetes Grandfather Diabetes Grandmother Diabetes Other Alcoholism Allergies Anxiety Anxiety and depression Arthritis Asthma defect Bowel disease CVA (cerebral vascular accident) Heart disease High cholesterol Hypertension Kidney disease Liver disease Mental disorder Myocardial infarction Psychiatric care Surgical History HISTORY NECK INJECTIONS History of History of appendectomy History of colonoscopy History of shoulder surgery Social History Smoking Status: Current every day smoker tobacco type: cigarettes alcohol intake: never substance use type: IV drugs and methamphetamine what type of physical activity do you participate in: none ROS ROS ED Constitutional Constitutional ED: Denies chills or fever(s) ENT ENT ED: Denies rhinorrhea Cardiovascular Cardiovascular: Denies chest pain or palpitations Respiratory/Chest Respiratory/Chest: Denies cough or dyspnea Gastrointestinal Gastrointestinal: Denies abdominal pain, diarrhea, nausea or vomiting Musculoskeletal Musculoskeletal: Reports other Details: Erythema to left arm near elbow. See history of present illness ; Denies back pain Integumentary Reports other Details: See above, erythema left arm Neurologic Neurologic: Denies headache(s) Endocrine Endocrinology: Denies polydipsia or polyuria Allergic/Immunologic Allergic/Immunologic ED: Denies urticaria EXAM Physical Exam Const Vital Signs: 11/14/20 04:58 11/14/20 05:01 11/14/20 06:15 Temperature 98.3 F 98.3 F 98.4 F Temperature Source Temporal Temporal Oral Pulse Rate 106 H 106 H 108 H Respiratory Rate 16 16 19 H Blood Pressure 133/102 H 133/102 H 104/74 Blood Pressure Mean 112 112 84 Pulse Ox 99 99 97 Oxygen Delivery Method Room Air Room Air Room Air Positive well nourished and well developed Constitutional Narrative: Patient has trouble sitting still. She sits up and lays back down she is moving all over the bed. General Appearance ED: well developed HEENT Negative for trauma or tenderness Neck no JVD Resp normal respiratory effort and clear to auscultation bilaterally Auscultation: Negative for wheezes Cardio regular rate and regular rhythm Rate: other Other Details: Rate is about 100. I hear no murmurs. No Osler or Janeway's. GI normal to inspection, nondistended, normoactive bowel sounds and non-tender Palpation: soft Back/Spine no CVA tenderness Extremity Extremity Narrative: Patient does have erythema and some mild swelling to the left arm. It is from just above the left elbow to the proximal third of the left forearm. Mostly medial. She is moving the arm back and forth frequently. No indication whatsoever of joint involvement. There is no abscess. This is smooth generalized swelling. I feel no swollen or focal tender spot. Neuro oriented x3 Sensorium / Orientation: alert Psych Attitude: agitated Mood & Affect: anxious Skin Skin Narrative: Erythema as above. MDM MDM MDM Narrative Medical decision making narrative: Patient she decided she did not want to be here. An IV had just been placed and blood work was drawn. We had not gotten results back yet. The clip vancomycin was about to be hung but she did not get much sure any of this of significance in. I was able to talk to the patient before she walked out. She is not stating why she wants to leave. We did talk about infection and getting further antibiotics. She is able to understand the need for this. I think she has the capacity to make her own decisions. I do not agree with her decisions but she does have capacity. I asked her about adding another antibiotic. She states doxycycline is the worst. Bactrim causes a lot of vomiting. Clindamycin's usually causes nausea vomiting or a flulike syndrome. She said clindamycin is the least problematic. She has no true allergy to it. I explained that I can help her with the nausea and vomiting. I will write for some clindamycin and some Zofran. I told her to take clindamycin and cephalexin together. Hopefully this will get her cellulitis under control. Patient also requested that we give the Toradol IM since she wanted the IV out and pulled it. We did give her Toradol IM. We are trying to help her within the bounds that she creates for us. Lab Data Attestation: I reviewed the patient's lab results. Labs: Laboratory Results - last 24 hr 11/14/20 06:03 WBC 14.6 H RBC 3.96 L Hgb 11.1 L Hct 33.9 L MCV 85.6 MCH 28.0 MCHC 32.7 RDW Std Deviation 41.1 RDW Coeff of [place] 13.2 Plt Count 368 MPV 9.4 Immature Gran % (Auto) 1.500 H Neut % (Auto) 64.7 Lymph % (Auto) 25.1 [place] % (Auto) 7.0 Eos % (Auto) 1.2 Baso % (Auto) 0.5 Absolute Neuts (auto) 9.4 H Absolute Lymphs (auto) 3.65 Nucleated RBC % 0 Discharge Plan Triage Chief Complaint: Cellulitis ED Provider: Wagner Ruiz Dx/Rx/DC Orders Clinical Impression: Cellulitis of forearm, left Instructions: ED Cellulitis Prescriptions: New clindamycin HCl [Cleocin HCl] 300 MG capsule 300 mg PO Q6H Qty: 40 RF: 0 ondansetron 4 mg tablet,disintegrating 4 mg PO Q8H PRN (Reason: nausea and vomiting) Qty: 10 RF: 0 No Action cephalexin [cephalexin] 500 MG capsule 500 mg PO Q6 Qty: 40 RF: 0 Primary Care Provider: Care Physician,No Primary Referrals: Skinny Mann MD [STAFF PHYSICIAN] - 3-5 Days if not improving Care Physician,No Primary [Primary Care Provider] - Disposition Disposition: Against Medical Advice Discharge Date/Time: 11/14/20 06:25
[2020-11-14 06:10] LABS: Absolute Lymphocyte Count 3.65 X10^3/uL (0.83-4.51); Absolute Neutrophil Count 9.4 X10^3/uL (2.0-7.7); Basophil# 0.07 X10^3/uL; Basophil% 0.5 % (0-1); Eosinophil# 0.18 X10^3/uL; Eosinophils% 1.2 % (0-5); Hematocrit 33.9 % (37-47); Hemoglobin 11.1 g/dL (12.0-15.0); Lymphocyte # 3.65 X10^3/ul (0.83-4.51); Lymphocyte % 25.1 % (19-41); Mean Corp Hgb Conc 32.7 g/dL (32-36); Mean Corpuscular Volume 85.6 fL (81-99); Mean Platelet Vol. 9.4 fl (6.2-12.0); Monocyte# 1.02 X10^3/uL; NRBC Flagged by Analyzer 0 % (0-5); Neutrophil # 9.42 X10^3/uL (2.7-7.7); Neutrophil % 64.7 % (47-70); Platelet Count 368 K/mm3 (150-450); RBC Distribution Width CV 13.2 % (11.6-14.6); RBC Distribution Width SD 41.1 fl (35.1-43.9); Red Blood Count 3.96 M/mm3 (4.2-5.4); White Blood Count 14.6 K/mm3 (4.4-11.0)
[2020-11-14] MEDS: Ketorolac 15 MG/ML Vial IM (06:11)
[2020-11-14 06:15] VITALS: BP 104/74; PULSE 108; RESP 19; TEMP 36.9; O2SAT 97
--- NOTE | 2020-11-14 06:17 | ED.RN ---
IV was started and bkood drawn. NS flushed well with good blood return. Patient states it elizondo and asked for it to be removed. Removed and ice pack applied. The other two nurses on the floor had already attempted and missed their attempts at blood draw and IV. 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 She declined and states she will take the toradol. Okay from Dr Ruiz and patient given med. She states she is leaving and not trying and is leaving. Told her I would get the papers to sign but she states she is not signing papers because she is leaving now and does not have time. She walked past the papers. She did accept discharge papers as the Dr was aware of patient leaving AMA. She states she is going to another ER.
[2020-11-14 07:09] LABS: Anion Gap 3 (5-15); BUN 1 mg/dL (7-18); BUN/Creat Ratio 1.9 RATIO (10-20); Calcium,Total 8.6 mg/dL (8.5-10.1); Chloride 107 mmol/L (98-107); Creatinine, Serum 0.53 mg/dL (0.55-1.02); EST Glomerular Filtration Rate 147 mL/min (>60); Est Glom Filt Rate - Afr Amer 177 mL/min (>60); Estimated Creatinine Clearance 127.11 ml/min; Glucose 87 mg/dL (74-106); Lactic Acid 1.3 mmol/L (0.4-1.9); Potassium 3.3 mmol/L (3.5-5.1); Sodium Level 140 mmol/L (136-145)
== END 2020-11-14 06:25 | disposition left against medical advice (07) ==
PROVIDERS: Emergency Provider Emergency Medicine
DX: L03.114 Cellulitis of left upper limb (principal); F17.210 Nicotine dependence, cigarettes, uncomplicated
CPT/HCPCS: 80048; 83605; 85025; 87040; 96372; 99285; J7030; J7050; A4216

== ENCOUNTER 2020-12-27 23:20 | Inpatient (IN) | payer MEDICAID, SELFPAY ==
[2020-12-27 23:22] VITALS: BP 124/60; PULSE 98; RESP 18; TEMP 36.6; O2SAT 100; BMI 20.2
--- NOTE | 2020-12-27 23:45 | EX.ED.SAOD ---
HPI History of Present Illness Chief Complaint: Substance Abuse Narrative Narrative: 25-year-old female with history of drug abuse presenting for detox. She states she will do what ever drugs she can get her hands on. She admits to using fentanyl, heroin, methamphetamine. She states she will take opiate pills. She states she was recently kicked out of pain management for missing her appointment. Patient also relates that she was recently at [facility] for detox and was there for about a week. They wanted to transfer her to inpatient but she felt like she was too sick to go to the inpatient side of the house. Therefore she was discharged home. She has been doing drugs this week. Patient relates a history of seizure disorder but her significant other with her states that this was likely withdrawal induced secondary to benzos or alcohol. She has not had a seizure in a year and a half. She is not on any medications for seizure. Patient also states that she is concerned for STDs as she intermittently has discharge vaginally. She denies a fever, chills, abdominal pain. She does not have nausea or vomiting. She states her last use was a few hours ago. [facility] Medical History Carpal tunnel syndrome Fibromyalgia GERD (gastroesophageal reflux disease) Hepatitis Low potassium syndrome Migraines Seasonal allergies Seizures Substance abuse Vitamin deficiency Home Medications acyclovir 800 mg PO DAILY 12/27/20 [History Last Taken Unknown] Allergy/AdvReac Type Severity Reaction Status Date / Time clindamycin Allergy Mild Unknown Verified 12/27/20 23:26 nickel [Nickel] Allergy Unknown Verified 12/27/20 23:26 Penicillins Allergy Shortness Verified 12/27/20 23:26 of breath dicyclomine [From Bentyl] AdvReac cramps, Verified 12/27/20 23:26 constipation, chest pain doxycycline AdvReac Vomiting Verified 12/27/20 23:26 metronidazole [From Flagyl] AdvReac Upset Verified 12/27/20 23:26 Stomach sulfamethoxazole AdvReac Upset Verified 12/27/20 23:26 [From Bactrim] Stomach trimethoprim [From Bactrim] AdvReac Upset Verified 12/27/20 23:26 Stomach Family History Father Diabetes Grandfather Diabetes Grandmother Diabetes Other Alcoholism Allergies Anxiety Anxiety and depression Arthritis Asthma defect Bowel disease CVA (cerebral vascular accident) Heart disease High cholesterol Hypertension Kidney disease Liver disease Mental disorder Myocardial infarction Psychiatric care Surgical History HISTORY NECK INJECTIONS History of History of appendectomy History of colonoscopy History of shoulder surgery Social History Smoking Status: Current every day smoker tobacco type: cigarettes alcohol intake: never substance use type: IV drugs and methamphetamine what type of physical activity do you participate in: none ROS ROS ED Constitutional Constitutional ED: Denies chills or fever(s) Eyes Eyes: Denies blurry vision or change in vision ENT ENT ED: Denies rhinorrhea or sore throat Cardiovascular Cardiovascular: Denies chest pain or palpitations Respiratory/Chest Respiratory/Chest: Denies cough, dyspnea or sputum Gastrointestinal Gastrointestinal: Denies abdominal pain, nausea or vomiting Genitourinary Genitourinary ED: Reports dysuria and other Musculoskeletal Musculoskeletal: Denies arthralgias or myalgias Integumentary Reports rash Neurologic Neurologic: Denies headache(s) or paresthesias Psychiatric Psychiatric: Denies suicidal thoughts EXAM Physical Exam Const Vital Signs: 12/27/20 23:22 12/28/20 00:21 Temperature 97.9 F Temperature Source Temporal Pulse Rate 98 Respiratory Rate 18 Blood Pressure 124/60 H Blood Pressure Mean 81 Pulse Ox 100 Oxygen Delivery Method Room Air Room Air Positive well nourished General Appearance ED: NAD; Negative for pallor HEENT Reports moist mucous membranes Negative for atraumatic Eyes PERRL and EOMs intact bilaterally Chest Wall inspection of chest normal and palpation of chest normal Resp normal respiratory effort and clear to auscultation bilaterally Cardio regular rate and regular rhythm GI soft to palpation, non-tender and non-distended Extremity General Extremety ED: Yes tenderness; Negative for edema General Extremity: Negative for edema Neuro oriented x3 and CN's II-XII intact bilaterally Sensorium / Orientation: alert Psych Psych Narrative: Patient appears agitated is hard to redirect. Skin General Skin Exam: Negative for jaundice or pallor Rashes: no rashes MDM MDM MDM Narrative Medical decision making narrative: Patient presenting for detox. She states she last used prior to arrival. Does admit to using fentanyl, methamphetamine, opioids. She also admits she will do anything she can get her hands on including benzodiazepines. Patient's vital signs are stable and she is afebrile. Patient's blood work shows a slight leukocytosis of 12.5 without a left shift. Hemoglobin medic are stable. Renal function electrolytes are normal with exception of potassium which can be repleted orally. Magnesium is normal. hCG is negative. Urinalysis is negative. GC and Chlamydia testing are negative. I do not see any trichomonas in the urinalysis. Patient's drug screen is positive for methamphetamines. She does do fentanyl which may not show up on drug testing. Patient discussed with hospitalist for admission for detox. Impression: 1. Dysuria 2. Opiate detox Lab Data Attestation: I reviewed the patient's lab results. Labs: Laboratory Results - last 24 hr 12/27/20 12/27/20 12/27/20 23:31 23:31 23:31 WBC RBC Hgb Hct MCV MCH MCHC RDW Std Deviation RDW Coeff of [place] Plt Count MPV Immature Gran % (Auto) Neut % (Auto) Lymph % (Auto) [place] % (Auto) Eos % (Auto) Baso % (Auto) Absolute Neuts (auto) Absolute Lymphs (auto) Nucleated RBC % Sodium Potassium Chloride Carbon Dioxide Anion Gap BUN Creatinine Estim Creat Clear Calc Est GFR (MDRD) Af Amer Est GFR (MDRD) Non-Af BUN/Creatinine Ratio Glucose Calcium Magnesium Serum , Qual Urine Color Yellow Urine Clarity Clear Urine pH 6.0 Ur Specific [place] 1.025 Urine Protein 15 H Urine Glucose (UA) Normal Urine Ketones Negative Urine Occult Blood Negative Urine Nitrite Negative Urine Bilirubin Negative Urine Urobilinogen Normal Ur Leukocyte Esterase Negative Urine RBC 0 SEEN Urine WBC 0 SEEN Ur Squamous Epith Cells 0 SEEN Urine Bacteria RARE Urine Mucus 1+ Urine Opiates Screen NEGATIVE Urine Methadone Screen NEGATIVE Ur Barbiturates Screen NEGATIVE Ur Phencyclidine Scrn NEGATIVE Ur Amphetamines Screen POSITIVE H U Methamphetamin-MDMA POSITIVE H U Benzodiazepines Scrn NEGATIVE Urine Cocaine Screen NEGATIVE U Cannabinoids Screen NEGATIVE Ur Drug Screen Comment Ethyl Alcohol Chlam trachomat DNA PCR Negative N.gonorrhoeae DNA (PCR) Negative 12/27/20 12/27/20 12/27/20 23:40 23:40 23:40 WBC 12.5 H RBC 4.77 Hgb 13.3 Hct 41.3 MCV 86.6 MCH 27.9 MCHC 32.2 RDW Std Deviation 44.3 H RDW Coeff of [place] 14.2 Plt Count 393 MPV 9.0 Immature Gran % (Auto) 0.500 Neut % (Auto) 54.6 Lymph % (Auto) 36.9 [place] % (Auto) 5.3 Eos % (Auto) 2.2 Baso % (Auto) 0.5 Absolute Neuts (auto) 6.8 Absolute Lymphs (auto) 4.60 H Nucleated RBC % 0 Sodium 136 Potassium 3.1 L Chloride 99 Carbon Dioxide 32.0 Anion Gap 5 BUN 7 Creatinine 0.70 Estim Creat Clear Calc 86.44 Est GFR (MDRD) Af Amer 128 Est GFR (MDRD) Non-Af 106 BUN/Creatinine Ratio 10.0 Glucose 89 Calcium 9.1 Magnesium 2.0 Serum , Qual Urine Color Urine Clarity Urine pH Ur Specific [place] Urine Protein Urine Glucose (UA) Urine Ketones Urine Occult Blood Urine Nitrite Urine Bilirubin Urine Urobilinogen Ur Leukocyte Esterase Urine RBC Urine WBC Ur Squamous Epith Cells Urine Bacteria Urine Mucus Urine Opiates Screen Urine Methadone Screen Ur Barbiturates Screen Ur Phencyclidine Scrn Ur Amphetamines Screen U Methamphetamin-MDMA U Benzodiazepines Scrn Urine Cocaine Screen U Cannabinoids Screen Ur Drug Screen Comment Ethyl Alcohol < 3.0 Chlam trachomat DNA PCR N.gonorrhoeae DNA (PCR) 12/27/20 23:40 WBC RBC Hgb Hct MCV MCH MCHC RDW Std Deviation RDW Coeff of [place] Plt Count MPV Immature Gran % (Auto) Neut % (Auto) Lymph % (Auto) [place] % (Auto) Eos % (Auto) Baso % (Auto) Absolute Neuts (auto) Absolute Lymphs (auto) Nucleated RBC % Sodium Potassium Chloride Carbon Dioxide Anion Gap BUN Creatinine Estim Creat Clear Calc Est GFR (MDRD) Af Amer Est GFR (MDRD) Non-Af BUN/Creatinine Ratio Glucose Calcium Magnesium Serum , Qual NEGATIVE Urine Color Urine Clarity Urine pH Ur Specific [place] Urine Protein Urine Glucose (UA) Urine Ketones Urine Occult Blood Urine Nitrite Urine Bilirubin Urine Urobilinogen Ur Leukocyte Esterase Urine RBC Urine WBC Ur Squamous Epith Cells Urine Bacteria Urine Mucus Urine Opiates Screen Urine Methadone Screen Ur Barbiturates Screen Ur Phencyclidine Scrn Ur Amphetamines Screen U Methamphetamin-MDMA U Benzodiazepines Scrn Urine Cocaine Screen U Cannabinoids Screen Ur Drug Screen Comment Ethyl Alcohol Chlam trachomat DNA PCR N.gonorrhoeae DNA (PCR) Discharge Plan Disposition Disposition: Acute Care [facility] Discharge Date/Time: 12/28/20 02:38
[2020-12-27 23:50] LABS: Absolute Neutrophil Count 6.8 X10^3/uL (2.0-7.7); Basophil# 0.06 X10^3/uL; Basophil% 0.5 % (0-1); Eosinophil# 0.27 X10^3/uL; Eosinophils% 2.2 % (0-5); Hematocrit 41.3 % (37-47); Hemoglobin 13.3 g/dL (12.0-15.0); Lymphocyte % 36.9 % (19-41); Mean Corp Hgb Conc 32.2 g/dL (32-36); Mean Corpuscular Hgb 27.9 pg (27.0-32.0); Mean Corpuscular Volume 86.6 fL (81-99); Monocyte# 0.66 X10^3/uL; Monocyte% 5.3 % (0-10); NRBC Flagged by Analyzer 0 % (0-5); Neutrophil % 54.6 % (47-70); POSITIVE MORPHOLOGY YES; Platelet Count 393 K/mm3 (150-450); RBC Distribution Width CV 14.2 % (11.6-14.6); RBC Distribution Width SD 44.3 fl (35.1-43.9); Red Blood Count 4.77 M/mm3 (4.2-5.4); White Blood Count 12.5 K/mm3 (4.4-11.0)
[2020-12-27 23:51] LABS: Differential Indicated SCAN CRITERIA MET
[2020-12-28 00:06] LABS: Anion Gap 5 (5-15); BUN 7 mg/dL (7-18); Calcium,Total 9.1 mg/dL (8.5-10.1); Chloride 99 mmol/L (98-107); EST Glomerular Filtration Rate 106 mL/min (>60); Est Glom Filt Rate - Afr Amer 128 mL/min (>60); Estimated Creatinine Clearance 86.44 ml/min; Glucose 89 mg/dL (74-106); Potassium 3.1 mmol/L (3.5-5.1); Sodium Level 136 mmol/L (136-145)
[2020-12-28 00:11] LABS: Amphetamine Urine VISTA POSITIVE (<1000 ng/mL); Barbiturate Urine VISTA NEGATIVE (< 200 ng/mL); Benzodiazepine Urine VISTA NEGATIVE (< 200 ng/mL); Cocaine Urine VISTA NEGATIVE (< 300 ng/mL); Ecstacy Urine VISTA POSITIVE (< 500 ng/mL); Methadone Urine VISTA NEGATIVE (< 300 ng/mL); PCP Urine VISTA NEGATIVE (< 25 ng/mL); THC Urine VISTA NEGATIVE (< 50 ng/mL); Vista UDS pH Range 4
[2020-12-28 00:12] LABS: Alcohol, Blood (Medical)-Serum < 3.0 mg/dL; Internal QC Validated? YES +Cl - CLEAR BKGD; Pregnancy, Serum, hCG Quali. NEGATIVE Negative
[2020-12-28 01:16] LABS: Red Blood Cells-Urine 0 SEEN /hpf (0-5); Squamous Epithelial Cells - UA 0 SEEN /hpf (5-10); White Blood Cells 0 SEEN /hpf (0-5)
[2020-12-28 01:27] LABS: Color, Urine Yellow (Yellow); Glucose, Dipstick Normal (Normal); Ketone-Dipstick Negative (Negative); Leukocyte Esterase-Dipstick Negative /ul (Negative); Nitrite-Dipstick Negative (Negative); Occult Blood-Urine Negative /ul (Negative); Protein-Dipstick 15 mg/dl (Negative); Specific Gravity, Urine 1.025 (1.002-1.030); Urine Bilirubin Dipstick Negative (Negative); Urine Clarity Clear (Clear); Urine Urobilinogen Normal (Normal)
[2020-12-28 01:49] LABS: Bacteria RARE /hpf (None Seen); Mucous, Urine 1+ /hpf (<or=2+)
[2020-12-28 01:53] LABS: Chlamydia Trachomatis by PCR Negative (Negative); Neisserai gonorrhoeae by PCR Negative (Negative); Probe Check PASS; Sample Adequacy Control PASS; Specimen Processing Control PASS
--- NOTE | 2020-12-28 02:17 | HP.PCM.HOS_ITS ---
HPI - General General Date of Admission: 12/28/20 Date of Service: 12/28/20 Chief Complaint: Desire for detoxification HPI Narrative GINNY WYNNE, is a 25 F with a significant history of fibromyalgia who presents to the emergency department with desire for detoxification. Patient reports using every substance that she can lay hands on. She reports shooting methamphetamine and shooting fentanyl. Last time she used was on the same day of presentation. She reports using at least a gram to a gram and a half of fentanyl daily. She does not specify exactly how much of methamphetamine she uses. She started using fentanyl when she was age 14 and methamphetamine when she was age 16. She reports itchiness. She reports vaginal malodorous secretions itching. She reports constipation. [facility] Medical History (Updated 12/28/20 @ 03:[address] Kevon Gates MD) Carpal tunnel syndrome Fibromyalgia GERD (gastroesophageal reflux disease) Hepatitis Low potassium syndrome Migraines Seasonal allergies Seizures Substance abuse Vitamin deficiency Home Medications acyclovir 800 mg PO DAILY 12/27/20 [History Last Taken Unknown] Arian Fe 04/01 (28) 1 tab PO/SL DAILY 12/28/20 [History Last Taken Unknown] polyethylene glycol 3350 [Miralax] 17 g PO BID 12/28/20 [History Last Taken Unknown] pregabalin 100 mg PO TID 12/28/20 [History Last Taken Unknown] Allergy/AdvReac Type Severity Reaction Status Date / Time clindamycin Allergy Mild Unknown Verified 12/27/20 23:26 nickel [Nickel] Allergy Unknown Verified 12/27/20 23:26 Penicillins Allergy Shortness Verified 12/27/20 23:26 of breath dicyclomine [From Bentyl] AdvReac cramps, Verified 12/27/20 23:26 constipation, chest pain doxycycline AdvReac Vomiting Verified 12/27/20 23:26 metronidazole [From Flagyl] AdvReac Upset Verified 12/27/20 23:26 Stomach sulfamethoxazole AdvReac Upset Verified 12/27/20 23:26 [From Bactrim] Stomach trimethoprim [From Bactrim] AdvReac Upset Verified 12/27/20 23:26 Stomach Family History Father Diabetes Grandfather Diabetes Grandmother Diabetes Other Alcoholism Allergies Anxiety Anxiety and depression Arthritis Asthma defect Bowel disease CVA (cerebral vascular accident) Heart disease High cholesterol Hypertension Kidney disease Liver disease Mental disorder Myocardial infarction Psychiatric care Surgical History HISTORY NECK INJECTIONS History of History of appendectomy History of colonoscopy History of shoulder surgery Social History Smoking Status: Current every day smoker tobacco type: cigarettes alcohol intake: never substance use type: IV drugs and methamphetamine what type of physical activity do you participate in: none ROS ROS Narrative Constitutional: Reports weight loss. Denies fever, chills, fatigue, anorexia. Eyes: Denies blurry vision, change in eye color, change in vision, discharge from eye(s), double vision, erythema, eye pain, loss of vision or other HEENT: Denies abnormal hearing, dysphagia, ear pain, epistaxis, headache(s), hearing loss, nasal congestion, nasal discharge, post nasal drip, sinus pressure, sore throat or other Cardiovascular: Denies chest pain or palpitations. Denies dyspnea on exertion, orthopnea and paroxysmal nocturnal dyspnea Respiratory/Chest: Denies cough, excessive phlegm production, shortness of breath with exertion and wheezing Gastrointestinal: Denies abdominal pain, coffee ground emesis, constipation, diarrhea, dyspepsia, hematemesis, hematochezia, loose stools, melena, nausea, vomiting or other Genitourinary: Denies burning urination, difficulty urinating, dysuria, hematuria, nocturia, urinary frequency, urinary hesitancy, urinary incontinence, urinary urgency or other Musculoskeletal: Denies arthralgias, back pain, joint pain, joint stiffness, joint swelling, myalgias, neck pain or other Neurologic: Denies abnormal gait, abnormal speech, confusion, disequilibrium, dizziness, focal weakness, headache(s), numbness, paresthesias, seizure-like activity, seizures, syncope, tingling, tremor(s) or other Psychiatric: Denies homicidal ideation, suicidal ideation or other Endocrinology: Denies change in body appearance, cold intolerance, excessive sweating, heat intolerance, polydipsia, polyuria or other Hematologic/Lymphatic: Denies anemia, easy bleeding, easy bruising, lymphadenopathy or other Integumentary: Denies rashes Allergic/Immunologic: Denies rhinitis, hives, eczema, asthma or other Vital Signs Vital Signs Vital Signs: 12/27/20 23:22 12/28/20 00:21 Temperature 97.9 F Temperature Source Temporal Pulse Rate 98 Respiratory Rate 18 Blood Pressure 124/60 H Blood Pressure Mean 81 Pulse Ox 100 Oxygen Delivery Method Room Air Room Air Weight Weight: 45.359 kg Body Mass Index (BMI) 20.2 Physical Exam Narrative Physical exam: General: Well-nourished, well-developed. Head: Normocephalic, atraumatic, no tenderness Eyes: PERRLA, EOMI ENT, no trauma, moist mucous membranes, no rhinorrhea Neck: Nontender, full range of motion, no spinal tenderness, deformities, step- off CVS: Regular rate and rhythm. S1-S2 present. No murmur, gallop or rub. Respiratory : clear to auscultation bilaterally, chest wall nontender, no wheezing Abdomen: Soft, nontender, nondistended, normal bowel sounds, no masses : Deferred Back: Nontender, no CVA tenderness, no midline spinal tenderness, deformities, step-offs Extremities: Nontender full range of motion, no trauma Skin: Normal color, no trauma, abrasions Neuro: Alert, oriented, cranial nerves II through XII grossly intact. Psychiatry: Patient agitated and pacing room. . Results Lab / Micro Data Result Diagrams: 12/27/20 23:40 12/27/20 23:40 Labs: Laboratory Results - last 24 hr 12/27/20 23:31: Urine Opiates Screen NEGATIVE, Urine Methadone Screen NEGATIVE, Ur Barbiturates Screen NEGATIVE, Ur Phencyclidine Scrn NEGATIVE, Ur Amphetamines Screen POSITIVE H, U Methamphetamin-MDMA POSITIVE H, U Benzodiazepines Scrn NEGATIVE, Urine Cocaine Screen NEGATIVE, U Cannabinoids Screen NEGATIVE, Ur Drug Screen Comment 12/27/20 23:31: Chlam trachomat DNA PCR Negative, N.gonorrhoeae DNA (PCR) N egative 12/27/20 23:31: Urine Color Yellow, Urine Clarity Clear, Urine pH 6.0, Ur Specific Sellers 1.025, Urine Protein 15 H, Urine Glucose (UA) Normal, Urine Ketones Negative, Urine Occult Blood Negative, Urine Nitrite Negative, Urine Bilirubin Negative, Urine Urobilinogen Normal, Ur Leukocyte Esterase Negative, Urine RBC 0 SEEN, Urine WBC 0 SEEN, Ur Squamous Epith Cells 0 SEEN, Urine Bacteria RARE, Urine Mucus 1+ 12/27/20 23:40: WBC 12.5 H, RBC 4.77, Hgb 13.3, Hct 41.3, MCV 86.6, MCH 27.9, MCHC 32.2, RDW Std Deviation 44.3 H, RDW Coeff of Cayden 14.2, Plt Count 393, MPV 9.0, Immature Gran % (Auto) 0.500, Neut % (Auto) 54.6, Lymph % (Auto) 36.9, Brooke % (Auto) 5.3, Eos % (Auto) 2.2, Baso % (Auto) 0.5, Absolute Neuts (auto) 6.8, Absolute Lymphs (auto) 4.60 H, Nucleated RBC % 0 12/27/20 23:40: Sodium 136, Potassium 3.1 L, Chloride 99, Carbon Dioxide 32.0, Anion Gap 5, BUN 7, Creatinine 0.70, Estim Creat Clear Calc 86.44, Est GFR (MDRD) Af Amer 128, Est GFR (MDRD) Non-Af 106, BUN/Creatinine Ratio 10.0, Gluc ose 89, Calcium 9.1, Magnesium 2.0 12/27/20 23:40: Ethyl Alcohol < 3.0 12/27/20 23:40: Serum , Qual NEGATIVE Assessment & Plan Assessment/Plan (1) Desire for detoxification: (2) Foul smelling vaginal discharge: PLAN: Opioid dependence and withdrawal Patient be started on Subutex and other adjunctive medications: Gabapentin as needed; dicyclomine as needed; Vistaril as needed; methocarbamol as needed; clonidine as needed; Imodium as needed; trazodone as needed and Zofran as needed. Monitor COWS and CINA score Tobacco abuse Counseled Nicotine patch and nicotine gum prescribed per patient request. Foul-smelling vaginal discharge Chlamydia and gonococcal PCR is negative. Review of labs showed white count of 12.5; trend. Patient is allergic to metronidazole which gives stomach upset. Metronidazole vaginal cream ordered. Hypokalemia Review of ED labs showed potassium of 3.1. Replace. Trend BMP. Check magnesium. DVT prophylaxis Low risk Encourage to ambulate Charges/Coding Visit Charges Inpatient E&M: 74056 Init Hosp L2
[2020-12-28 02:30] VITALS: BP 102/71; PULSE 114; RESP 18; TEMP 36.2; O2SAT 99
[2020-12-28 03:04] VITALS: BP 121/60; PULSE 71; RESP 18; TEMP 36.4; O2SAT 99
--- NOTE | 2020-12-28 03:08 | NURSING ---
pt got paid to get the covid vaccine - had done at [facility] in [place]. approx 1 to 1.5 weeks ago
[2020-12-28] MEDS: Acyclovir 800 MG Tablet PO (03:13)
[2020-12-28] MEDS: Methocarbamol 750 MG Tablet 1500 MG PO ×3 (03:21→20:43)
[2020-12-28] MEDS: hydrOXYzine PAM 25 MG Capsule 50 MG PO (03:22)
[2020-12-28] MEDS: cloNIDine HCl 0.1 MG Tablet PO ×2 (03:22→15:27)
--- NOTE | 2020-12-28 03:42 | PCS.PANDOC ---
PANDEMIC DOCUMENTATION INITIATED: Date: 10/26/2020 Time: 190
[2020-12-28] MEDS: Acetaminophen 325 MG Tablet 650 MG PO ×2 (04:08→15:26)
[2020-12-28] MEDS: Gabapentin 300 MG Capsule PO ×2 (04:08→20:42)
[2020-12-28 09:44] VITALS: BP 115/86; PULSE 83; RESP 16; TEMP 36.4; O2SAT 99
[2020-12-28] MEDS: Polyethylene Glycol 3350 17 GM PACKET PO ×2 (10:03→20:28)
[2020-12-28] MEDS: Ibuprofen 400 MG Tablet PO ×2 (10:04→20:43)
--- NOTE | 2020-12-28 12:03 | NURSING ---
Pt had requested prn meds for anxiety; but upon entering her room, pt was found to be asleep and not appearing in any distress. Meds not given and returned to [facility].
--- NOTE | 2020-12-28 12:25 | PCM.HOSP.N ---
Hospitalist Note Patient was admitted early this morning for opiate detox. She is on a buprenorphine taper. No issues over the night. She is requesting NSAIDs be initiated and since her renal function is normalized we will go ahead and start ibuprofen 400 mg every 6 hours as needed for pain. Potassium was noted to be low at 3.1. Replace with 40 mEq of p.o. potassium and recheck in the a.m. Patient to be seen by addiction medicine today to come up with a plan of care discharge.
--- NOTE | 2020-12-28 12:29 | ADDICTION ---
This race and sports book writer met with PT to conduct ASAM, MSE, AUDIT, DUDIT assessments and to plan for d/c. PT A+Ox4 and participated actively. All assessments completed, faxed to [facility] and placed in PT's chart. PT plans to f/u with [facility] in [place] for residential treatment and follow-up counseling services if admitted. PT did indicate a need for transportation post d/c from [facility].
[2020-12-28] MEDS: Potassium Chloride Oral Tablet 20 MEQ 40 MEQ PO (15:06)
[2020-12-28 15:08] VITALS: BP 120/82; PULSE 82; RESP 16; TEMP 36.6; O2SAT 97
[2020-12-28] MEDS: METRONIDAZOLE 0.75% VAGINAL (20:28)
[2020-12-28] MEDS: Buprenorphine HCl 2 MG TAB.SUBL SL (20:42)
[2020-12-28 20:50] VITALS: BP 112/71; PULSE 79; RESP 18; TEMP 36.6; O2SAT 95
[2020-12-29] MEDS: Acetaminophen 325 MG Tablet 650 MG PO ×2 (02:24→14:08)
[2020-12-29] MEDS: hydrOXYzine PAM 25 MG Capsule 50 MG PO ×3 (02:25→21:25)
[2020-12-29] MEDS: Methocarbamol 750 MG Tablet 1500 MG PO ×3 (02:47→18:44)
[2020-12-29] MEDS: cloNIDine HCl 0.1 MG Tablet PO ×3 (02:47→21:25)
[2020-12-29 02:50] VITALS: BP 110/67; PULSE 100; RESP 16; TEMP 36.9; O2SAT 97
[2020-12-29] MEDS: Gabapentin 300 MG Capsule PO ×2 (04:16→13:57)
[2020-12-29] MEDS: Buprenorphine HCl 2 MG TAB.SUBL SL (04:16)
--- NOTE | 2020-12-29 04:53 | NURSING ---
pt refused assessments overnight
[2020-12-29 08:00] VITALS: BP 107/66; PULSE 94; RESP 14; TEMP 36.8; O2SAT 98
[2020-12-29 08:16] LABS: Absolute Lymphocyte Count 4.58 X10^3/uL (0.83-4.51); Absolute Neutrophil Count 6.3 X10^3/uL (2.0-7.7); Basophil# 0.07 X10^3/uL; Basophil% 0.6 % (0-1); Eosinophil# 0.31 X10^3/uL; Eosinophils% 2.6 % (0-5); Hematocrit 40.5 % (37-47); Hemoglobin 12.9 g/dL (12.0-15.0); Lymphocyte # 4.58 X10^3/ul (0.83-4.51); Lymphocyte % 38.7 % (19-41); Mean Corp Hgb Conc 31.9 g/dL (32-36); Mean Platelet Vol. 10.5 fl (6.2-12.0); Monocyte# 0.53 X10^3/uL; Monocyte% 4.5 % (0-10); NRBC Flagged by Analyzer 0 % (0-5); Neutrophil # 6.31 X10^3/uL (2.7-7.7); Neutrophil % 53.3 % (47-70); POSITIVE MORPHOLOGY YES; Platelet Count 373 K/mm3 (150-450); RBC Distribution Width CV 14.3 % (11.6-14.6); RBC Distribution Width SD 45.1 fl (35.1-43.9); White Blood Count 11.8 K/mm3 (4.4-11.0)
[2020-12-29 08:17] LABS: Differential Indicated SCAN CRITERIA MET
[2020-12-29] MEDS: Ibuprofen 400 MG Tablet PO ×2 (09:20→18:45)
[2020-12-29] MEDS: Polyethylene Glycol 3350 17 GM PACKET PO ×2 (09:20→21:06)
[2020-12-29] MEDS: Acyclovir 800 MG Tablet PO (09:20)
[2020-12-29 09:30] LABS: Anion Gap 10 (5-15); BUN 8 mg/dL (7-18); BUN/Creat Ratio 11.5 RATIO (10-20); Chloride 97 mmol/L (98-107); EST Glomerular Filtration Rate 107 mL/min (>60); Est Glom Filt Rate - Afr Amer 129 mL/min (>60); Estimated Creatinine Clearance 86.44 ml/min; Glucose 43 mg/dL (74-106); Magnesium 2.2 mg/dL (1.6-2.6); Potassium 5.9 mmol/L (3.5-5.1); Sodium Level 134 mmol/L (136-145)
[2020-12-29 09:45] LABS: Bedside Glucose 91 mg/dL (70-110)
--- NOTE | 2020-12-29 10:38 | ADDICTION ---
This grant writer met with PT to plan for d/c. PT declined treatment at [facility] in [place] and reports she would only like [facility] in [place]. Clinician got place the referral.
[2020-12-29] MEDS: Sodium Polystyrene Sulfonate 15 GM/60 ML UDC PO (11:03)
--- NOTE | 2020-12-29 11:06 | ADDICTION ---
Pt was denied admission at [facility] due to previous behaviors and MH issues. Dr. Lawrence has referred her to [facility] dual diagnosis facility for residential treatment.
[2020-12-29 11:45] VITALS: BP 106/71
[2020-12-29] MEDS: Buprenorphine HCl 2 MG TAB.SUBL 4 MG SL ×2 (11:46→21:06)
--- NOTE | 2020-12-29 12:34 | PCM.PN.HOSP ---
Subjective Subjective Patient has multiple complaints this morning. Most of it with regards to the lack and consistency of her getting her medications. I did discuss that her nurse was with a ill patient and would be in to get her medications as soon as possible but she did not seem to understand. She evidently, per discussion with Dr. Lawrence, has been abusive to staff and manipulative in the past. Objective Data Objective Data Vital Signs: Vital Signs Temp Pulse Resp BP Pulse Ox 98.2 F 94 14 106/71 98 12/29/20 08:00 12/29/20 08:00 12/29/20 08:00 12/29/20 11:45 12/29/20 08:00 Oxygen Delivery Method Room Air Weight: 45.359 kg Body Mass Index (BMI) 20.2 Lab / Micro Data Result Diagrams: 12/29/20 08:00 12/29/20 08:00 Labs: Laboratory Results - last 24 hr 12/29/20 08:00: WBC 11.8 H, RBC 4.60, Hgb 12.9, Hct 40.5, MCV 88.0, MCH 28.0, MCHC 31.9 L, RDW Std Deviation 45.1 H, RDW Coeff of Cayden 14.3, Plt Count 373, MPV 10.5, Immature Gran % (Auto) 0.300, Neut % (Auto) 53.3, Lymph % (Auto) 38.7, [place] % (Auto) 4.5, Eos % (Auto) 2.6, Baso % (Auto) 0.6, Absolute Neuts (auto) 6.3, Absolute Lymphs (auto) 4.58 H, Nucleated RBC % 0 12/29/20 08:00: Sodium 134 L, Potassium 5.9 H, Chloride 97 L, Carbon Dioxide 27.0, Anion Gap 10, BUN 8, Creatinine 0.70, Estim Creat Clear Calc 86.44, Est GFR (MDRD) Af Amer 129, Est GFR (MDRD) Non-Af 107, BUN/Creatinine Ratio 11.5, Glucose 43 L*, Calcium 9.0, Magnesium 2.2 12/29/20 09:37: POC Glucose 91 Physical Exam Const alert, oriented x3 and no apparent distress Constitutional Narrative: Thin young white female sitting up in bed, fidgeting, nontoxic, argumentative with staff Exam Limitations: no limitations HEENT head/scalp atraumatic and moist oral mucous membranes Head and Scalp: normocephalic Resp normal respiratory effort, no retractions, no use of accessory muscles and clear to auscultation bilaterally Auscultation: Negative for crackles, rales, rhonchi or wheezes Cardio regular rate, regular rhythm, S1 normal heart sound, S2 normal heart sound, no murmurs, no rub, no gallops, no clicks and no JVD GI normal to inspection, nondistended, normoactive bowel sounds, soft to palpation, non-tender and non-distended Extremity normal to inspection and no clubbing, cyanosis or edema Peripheral Pulses: Yes pulses 2+ throughout Neuro oriented x3 and moves all extremities Sensorium / Orientation: awake and alert Speech: speech normal Assessment & Plan Assessment/Plan (1) Opiate withdrawal: (2) Foul smelling vaginal discharge: (3) Tobacco abuse: (4) Drug abuse: (5) Bipolar disorder: (6) Borderline personality disorder: PLAN: Acute opiate withdrawal -Per discussion with Dr. Lawrence will extend Suboxone taper 2 days and add phenobarbital with intent to taper in the next 48 hours -Continue supportive medications -Patient plans on inpatient admission after discharge -Per discussion with Dr. Lawrence she does not intend to treat her unless she is on Vivitrol she has had multiple run-ins with her and lack of adherence/compliance with treatment regimen -Dr. Lawrence also indicates that she is not to be admitted any further for acute opiate withdrawal Foul-smelling vaginal discharge -Chlamydia and gonococcal PCR was negative -Metronidazole vaginal cream ordered and will continue for complete treatment Hypokalemia -Potassium is now elevated although this was hemolyzed -Patient with constipation so we will give 1 dose of Kayexalate -Repeat BMP in a.m. Tobacco abuse -Recommend cessation -Nicotine replacement therapy ordered DVT prophylaxis -Low risk -Early ambulation protocol CODE STATUS -Full code Charges/Coding Visit Charges Inpatient E&M: 30065 Subs Hosp L2
--- NOTE | 2020-12-29 13:14 | NURSING ---
ATTEMPTED TO CALL PTS SIG OTHER, PER HER REQUEST, TO CHECK ON COURT STATUS. UNABLE OT REACH HIM
--- NOTE | 2020-12-29 13:44 | ADDICTION ---
Pt agreed to go to [facility] residential facility in [place], [place]. [facility] will provide transport on 12/31.
[2020-12-29] MEDS: Phenobarbital 32.4 MG Tablet PO ×2 (13:57→21:06)
[2020-12-29] MEDS: traZODone 100 MG Tablet PO (21:25)
[2020-12-29 21:32] VITALS: BP 105/64; PULSE 90; RESP 18; TEMP 36.8; O2SAT 100
[2020-12-30] MEDS: Buprenorphine HCl 2 MG TAB.SUBL 4 MG SL ×3 (05:03→21:53)
[2020-12-30] MEDS: Ibuprofen 400 MG Tablet PO (05:03)
[2020-12-30] MEDS: Phenobarbital 32.4 MG Tablet PO ×3 (05:03→21:53)
[2020-12-30 05:04] VITALS: BP 96/57; PULSE 78; RESP 18; TEMP 36.6; O2SAT 97
[2020-12-30] MEDS: Acyclovir 800 MG Tablet PO (10:19)
[2020-12-30] MEDS: hydrOXYzine PAM 25 MG Capsule 50 MG PO (10:23)
[2020-12-30] MEDS: cloNIDine HCl 0.1 MG Tablet PO ×2 (10:23→18:39)
[2020-12-30] MEDS: Acetaminophen 325 MG Tablet 650 MG PO (10:24)
[2020-12-30] MEDS: Gabapentin 300 MG Capsule PO ×2 (10:24→18:39)
[2020-12-30] MEDS: Methocarbamol 750 MG Tablet 1500 MG PO (10:24)
--- NOTE | 2020-12-30 11:00 | NURSING ---
pt 1000 meds given and pt throwing a fit and cussing upon awakening saying that she better have people read the f-ing sign on the door and not waking me up for dumb shit!! upon awakening however pt wanting clonodine,vistaril,muscle relaxant,tylenol,neurontin and wanting pads and underwear for starting my f-ing period! attempts made to tell pt that behavior toward staff written on contract that would be dc'd from program if continues. stated, they told me that f-ing dayshift would be worse! pt told when meds would be given and that would be woken up when due and that vital signs mandatory. pt aware and somewhat cooperative with poc.
[2020-12-30 12:19] VITALS: BP 87/54; PULSE 91; RESP 16; TEMP 36.7; O2SAT 99
--- NOTE | 2020-12-30 12:38 | NURSING ---
pt requesting subutex and lunch tray to room. pt took subutex meds and placed directly under tongue while vs taken. after nurse left room and to nurses desk to chart pt called out and c/o 'being nauseated and only could take one of the subutex and points to white pill on lunch tray. pt told that could not get another one and to put that back in mouth when nausea passes.
--- NOTE | 2020-12-30 14:44 | PCM.PN.HOSP ---
Subjective Subjective Patient refusing to talk to me this morning. Objective Data Objective Data Vital Signs: Vital Signs Temp Pulse Resp BP Pulse Ox 98.1 F 91 16 87/54 L 99 12/30/20 12:19 12/30/20 12:19 12/30/20 12:19 12/30/20 12:19 12/30/20 12:19 Oxygen Delivery Method Room Air Weight: 45.359 kg Body Mass Index (BMI) 20.2 Lab / Micro Data Result Diagrams: 12/29/20 08:00 12/29/20 08:00 Physical Exam Const Constitutional Narrative: Young white female lying in bed, sleeping, reacts with my exam and yells out but refuses to participate with conversation Exam Limitations: other limitations HEENT head/scalp atraumatic and moist oral mucous membranes Head and Scalp: normocephalic Resp normal respiratory effort, no retractions, no use of accessory muscles and clear to auscultation bilaterally Auscultation: Negative for crackles, rales, rhonchi or wheezes Cardio regular rate, regular rhythm, S1 normal heart sound, S2 normal heart sound, no murmurs, no rub, no gallops, no clicks and no JVD GI normal to inspection, nondistended, normoactive bowel sounds, soft to palpation, non-tender and non-distended Extremity normal to inspection and no clubbing, cyanosis or edema Peripheral Pulses: Yes pulses 2+ throughout Neuro Neuro Narrative: Uncooperative with exam Psych Psych Narrative: Communication today Assessment & Plan Assessment/Plan (1) Opiate withdrawal: (2) Foul smelling vaginal discharge: (3) Tobacco abuse: (4) Drug abuse: (5) Bipolar disorder: (6) Borderline personality disorder: PLAN: Acute opiate withdrawal -Per discussion with Dr. Lawrence will extend Suboxone taper extended -Phenobarb added -Plan is for discharge tomorrow to [facility] residential treatment facility in [facility] -Per discussion with Dr. Lawrence she does not intend to treat her unless she is on Vivitrol she has had multiple run-ins with her and lack of adherence/compliance with treatment regimen -Dr. Lawrence also indicates that she is not to be admitted any further for acute opiate withdrawal Foul-smelling vaginal discharge -Chlamydia and gonococcal PCR was negative -Metronidazole vaginal cream ordered and will continue for complete treatment Hypokalemia -Patient refused a.m. lab Tobacco abuse -Recommend cessation -Nicotine replacement therapy ordered DVT prophylaxis -Low risk -Early ambulation protocol CODE STATUS -Full code Charges/Coding Visit Charges Inpatient E&M: 90780 Subs Hosp L2
--- NOTE | 2020-12-30 17:41 | NURSING ---
pt crying now and stated, i dont feel good. i dont want to eat. i keep thinking about using! i need meds and i want to talk to my mom tray left and fan turned on pt. pt aware that not due till 1829 for any meds rt now. support given as best as could.
[2020-12-30] MEDS: Ondansetron 8 MG Tablet PO (18:39)
[2020-12-30 18:58] VITALS: BP 116/68; PULSE 102; RESP 16; TEMP 36.7; O2SAT 99
[2020-12-30] MEDS: traZODone 100 MG Tablet PO (21:53)
[2020-12-31] MEDS: Buprenorphine HCl 2 MG TAB.SUBL 4 MG SL (05:10)
[2020-12-31] MEDS: Phenobarbital 32.4 MG Tablet PO (05:10)
[2020-12-31] MEDS: Gabapentin 300 MG Capsule PO (05:10)
[2020-12-31 05:18] VITALS: BP 91/57; PULSE 69; RESP 16; TEMP 36.7; O2SAT 98
[2020-12-31] MEDS: cloNIDine HCl 0.1 MG Tablet PO (08:02)
[2020-12-31] MEDS: Ondansetron 8 MG Tablet PO (08:02)
[2020-12-31] MEDS: Methocarbamol 750 MG Tablet 1500 MG PO (08:03)
[2020-12-31] MEDS: hydrOXYzine PAM 25 MG Capsule 50 MG PO (08:03)
--- NOTE | 2020-12-31 08:09 | PCM.DC.SUM ---
Providers Date of Admission: 12/28/20 Primary Care Physician: No Primary Care Phys Reason For Visit: DESIRE FOR DETOXIFICATIONS Diagnosis Discharge Diagnosis (1) Opiate withdrawal: Status: Acute Code(s): F11.23 - Opioid dependence with withdrawal (2) Foul smelling vaginal discharge: Status: Acute Code(s): N89.8 - Other specified noninflammatory disorders of vagina (3) Tobacco abuse: Status: Chronic Code(s): Z72.0 - Tobacco use (4) Drug abuse: Status: Chronic (5) Bipolar disorder: Status: Chronic Code(s): F31.9 - Bipolar disorder, unspecified (6) Borderline personality disorder: Status: Chronic Code(s): F60.3 - Borderline personality disorder Medications at Discharge Home Medications acyclovir 800 mg PO DAILY 12/27/20 Arian Fe 04/01 (28) 1 tab PO/SL DAILY 12/28/20 polyethylene glycol 3350 [Miralax] 17 g PO BID 12/28/20 pregabalin 100 mg PO TID 12/28/20 Hospital Course Operations None Procedures None Summary of Care Provided Minutes Spent on Discharge: 25 Hospital Course: Maria T Dallas is a 25-year-old white female who presented to the emergency department at [facility] on 12/28/2020 with request for opiate detox. She has had multiple such admissions in the past and per discussion with Dr. Lawrence during her hospitalization she will no longer see her there and less she wants Vivitrol. She evidently has a significant psychiatric history which Dr. Lawrence feels is the predominant issue and she refuses to be treated for this. On admission she indicated that she uses any substances she can lay her hands on. Her most recent use prior to admission was shooting up methamphetamines and fentanyl. The last use was the same day as presentation. She indicates using at least 1g to 1-1/2 g of fentanyl daily. She was unclear exactly on how much methamphetamine she uses. She started using fentanyl when she was 14 and meth when she was 16. On admission she reported some itchiness, constipation, and diffuse body pain. She also complained of vaginal malodorous secretions with itching. She was admitted to the medical floor and started on a buprenorphine taper. She refused her first dose indicating that would throw her into withdrawal since she had just use prior to admission. She did not take the second dose when it was given. Throughout her course she has been very argumentative with staff and rude. She was placed on vaginal metronidazole cream for her vaginal itching. Chlamydia and gonococcal PCR's were done on admission and were negative. She had some hypokalemia during her hospitalization which was treated with p.o. supplementation. For her tobacco abuse nicotine replacement therapy was ordered. She was able to meet with addiction medicine and was denied treatment here in [place] as she has been there before and had issues with being rude and manipulative and refusing issues for her psychiatric illnesses. She was accepted for [facility] at [facility] in [facility] and transportation was set up for 9 AM on 12/31/2020. She was discharged in stable condition. Of note, we are no longer to admit her here for detox per discussion with Dr. Lawrence. Discharge diagnoses: Acute opiate withdrawal Polysubstance abuse IVDU Vaginal discharge Hypokalemia Tobacco abuse Bipolar disorder Borderline personality disorder History of HPV infection Physical Exam Const alert, oriented x3 and no apparent distress Constitutional Narrative: Young white female lying in bed, sleeping, does not awake for my exam General Appearance: well developed Exam Limitations: other limitations HEENT normocephalic, head/scalp atraumatic and moist oral mucous membranes Resp normal respiratory effort, no retractions, no use of accessory muscles and clear to auscultation bilaterally Auscultation: Negative for crackles, rales, rhonchi or wheezes Cardio regular rate, regular rhythm, S1 normal heart sound, S2 normal heart sound, no murmurs, no rub, no gallops, no clicks and no JVD GI normal to inspection, nondistended, normoactive bowel sounds, soft to palpation, non-tender and non-distended Extremity normal to inspection and no clubbing, cyanosis or edema Weight / BMI Weight Weight: 45.359 kg Body Mass Index (BMI) 20.2 ABG / Lab / Microbiology Data Result Diagrams: 12/29/20 08:00 12/29/20 08:00 D/C Instructions Discharge Diet: No restrictions Discharge Activity: Return to Normal Activity Meaningful Use Info Meaningful Use Diagnoses (Choose all that apply): None applicable Discharge Plan Admission Admit Date/Time: 12/28/20 02:02 Primary Reason for Your Visit: Acute Opiate Detox Attending Provider: Arturo,Keila Primary Care Provider: Care Physician,No Primary Discharge Orders/Prescriptions Prescriptions: Continued acyclovir 800 mg Tablet 800 mg PO DAILY RF: 0 pregabalin 100 mg capsule 100 mg PO TID RF: 0 polyethylene glycol 3350 [Miralax] 17 gram Powder In Packet 17 g PO BID RF: 0 Arian Fe 04/01 (28) 1 tab PO/SL DAILY RF: 0 Referrals / Follow Up: Care Physician,No Primary [Primary Care Provider] - Charges/Coding Visit Charges Inpatient E&M: 74361 Disch Hosp
[2020-12-31 08:45] VITALS: BP 91/57; PULSE 69; RESP 16; TEMP 36.7; O2SAT 98
== END 2020-12-31 09:00 | disposition other institution (70) | DRG 773 ==
LOC: ED 12-28 00:15 → MS2 12-28 02:34
PROVIDERS: Admitting Provider Hospitalist; Emergency Provider Student in an Organized Health Care Education/Training Program; Visit Provider Internal Medicine
DX: F11.23 Opioid dependence with withdrawal (principal); E87.6 Hypokalemia; N89.8 Other specified noninflammatory disorders of vagina; R30.0 Dysuria; K59.00 Constipation, unspecified; M79.7 Fibromyalgia; F60.3 Borderline personality disorder; F31.9 Bipolar disorder, unspecified; K21.9 Gastro-esophageal reflux disease without esophagitis; F17.210 Nicotine dependence, cigarettes, uncomplicated
CPT/HCPCS: 36415; 80048; 80307; 81001; 82077; 82962; 83735; 84703; 85025; 87491; 87591; 99283; 99406

== ENCOUNTER 2021-10-19 11:38 | Outpatient (RCR) | payer MEDICAID, SELFPAY | END 2021-11-10 23:59 | LOC: NS 11:38 | PROVIDERS: Referring Provider Nurse Practitioner Primary Care; Visit Provider Nurse Practitioner Primary Care | DX: Z71.3 Dietary counseling and surveillance (principal); R63.5 Abnormal weight gain; Z68.35 Body mass index [BMI] 35.0-35.9, adult | CPT/HCPCS: 97802 ==

== ENCOUNTER → 2022-02-11 | Outpatient (CLI) | payer MEDICAID, SELFPAY ==
[2022-02-11 10:03] LABS: D-Dimer Quantitative (DVT/PE) 0.43 FEU/ug/m (0.27-0.49)
[2022-02-11 10:19] LABS: Cholesterol 251 mg/dL (200); High Density Lipoprotein 44 mg/dL; T4 Free Direct 1.01 ng/dL (0.76-1.46); Thyroid Stim Hormone (TSH) 2.15 uIU/mL (0.358-3.74); Triglycerides 235 mg/dL; Very Low Density Lipoprotein 47 mg/dL (5-40)
[2022-02-11 10:27] LABS: Hemoglobin A1c 5.5 % (3.8-5.6)
== END | disposition home or self-care (01) ==
LOC: LAB 09:25
PROVIDERS: PCP Nurse Practitioner Primary Care; Visit Provider Nurse Practitioner Primary Care
DX: R63.5 Abnormal weight gain (principal); R06.02 Shortness of breath
CPT/HCPCS: 36415; 80061; 82533; 83036; 84439; 84443; 85379

== ENCOUNTER → 2022-03-02 | Outpatient (CLI) | payer MEDICAID, SELFPAY ==
[2022-03-05 17:07] LABS: Cortisol, Urinary Free 5 ug/L (Undefined)
[2022-03-06 09:40] LABS: Cortisol, Free 24Ur 9 ug/24 hr (6-42)
== END | disposition home or self-care (01) ==
LOC: LABSPEC 15:25
PROVIDERS: PCP Nurse Practitioner Primary Care; Visit Provider Nurse Practitioner Primary Care
DX: R79.89 Other specified abnormal findings of blood chemistry (principal); R63.5 Abnormal weight gain
CPT/HCPCS: 81050; 82530

== ENCOUNTER 2022-10-05 13:38 | Outpatient (RCR) | payer MEDICAID, SELFPAY | END 2022-10-10 23:59 | LOC: NS 13:38 | PROVIDERS: PCP Nurse Practitioner Primary Care | DX: Z71.3 Dietary counseling and surveillance (principal); E66.9 Obesity, unspecified; Z68.35 Body mass index [BMI] 35.0-35.9, adult | CPT/HCPCS: 97802 ==

== ENCOUNTER → 2023-07-01 | Outpatient (CLI) | payer MEDICAID, SELFPAY ==
[2023-07-01 19:06] LABS: Absolute Lymphocyte Count 3.95 X10^3/uL (0.83-4.51); Absolute Neutrophil Count 7.6 X10^3/uL (2.0-7.7); Basophil# 0.06 X10^3/uL; Basophil% 0.5 % (0-1); Eosinophil# 0.12 X10^3/uL; Hemoglobin 13.1 g/dL (12.0-15.0); Lymphocyte # 3.95 X10^3/ul (0.83-4.51); Lymphocyte % 31.7 % (19-41); Mean Corp Hgb Conc 33.6 g/dL (32-36); Mean Corpuscular Hgb 26.3 pg (27.0-32.0); Mean Corpuscular Volume 78.3 fL (81-99); Mean Platelet Vol. 9.3 fl (6.2-12.0); Monocyte# 0.68 X10^3/uL; Monocyte% 5.4 % (0-10); NRBC Flagged by Analyzer 0 % (0-5); Neutrophil % 60.8 % (47-70); Platelet Count 365 K/mm3 (150-450); RBC Distribution Width CV 13.1 % (11.6-14.6); RBC Distribution Width SD 36.7 fl (35.1-43.9); Red Blood Count 4.98 M/mm3 (4.2-5.4); White Blood Count 12.5 K/mm3 (4.4-11.0)
[2023-07-01 19:25] LABS: Internal QC Validated? YES +Cl - CLEAR BKGD; Pregnancy, Serum, hCG Quali. NEGATIVE Negative; Record Kit Lot#, Serum Preg. HCG0000718086
[2023-07-01 19:32] LABS: ALB/GLOB Ratio 0.7 RATIO (0.9-2.4); AST(SGOT) 21 U/L (15-37); Alanine Aminotransfer ALT/SGPT 28 U/L (13-56); Albumin, Serum 3.2 g/dL (3.2-5.0); Alkaline Phosphatase 109 U/L (45-117); Anion Gap 9 (5-15); BUN 5 mg/dL (7-18); BUN/Creat Ratio 6.2 RATIO (10-20); Calcium,Total 8.9 mg/dL (8.5-10.1); Chloride 100 mmol/L (98-107); Cholesterol 232 mg/dL (200); EST Glomerular Filtration Rate 89 mL/min (>60); Est Glom Filt Rate - Afr Amer 108 mL/min (>60); Globulin 4.6 g/dL (2.2-4.2); Glucose 98 mg/dL (74-106); High Density Lipoprotein 43 mg/dL; Potassium 2.5 mmol/L (3.5-5.1); Protein, Total 7.8 g/dL (6.4-8.2); Sodium Level 136 mmol/L (136-145); Triglycerides 225 mg/dL; Very Low Density Lipoprotein 45 mg/dL (5-40)
== END | disposition home or self-care (01) ==
LOC: LAB 18:35
PROVIDERS: PCP Nurse Practitioner Primary Care
DX: Z79.899 Other long term (current) drug therapy (principal)
CPT/HCPCS: 36415; 80053; 80061; 84703; 85025

== ENCOUNTER → 2024-04-15 | Outpatient (CLI) | payer MEDICAID, SELFPAY ==
--- NOTE | 2024-04-15 10:00 | RAD_ITS ---
EXAM: UPPER GI DUAL CONTRAST CLINICAL HISTORY: Acid reflux. COMPARISON: None. TECHNIQUE: The patient ingested barium. Multiple images of the esophagus, stomach and duodenum were obtained. FINDINGS: The esophagus is unremarkable. No evidence of gastroesophageal reflux. No evidence of hiatal hernia. No evidence obstruction. The stomach and duodenum are unremarkable. No evidence of ulceration or mass lesion. RAD/Upper GI Dual Contrast IMPRESSION: Unremarkable air contrast upper GI series. Reading Location: [facility]
== END | disposition home or self-care (01) ==
PROVIDERS: PCP Nurse Practitioner Primary Care; Referring Provider Nurse Practitioner Acute Care; Visit Provider Nurse Practitioner Acute Care
DX: R33.9 Retention of urine, unspecified (principal); R30.0 Dysuria; K59.00 Constipation, unspecified; K76.0 Fatty (change of) liver, not elsewhere classified
CPT/HCPCS: 74246; 87522

== ENCOUNTER → 2024-04-16 | Outpatient (CLI) | payer MEDICAID, SELFPAY ==
--- NOTE | 2024-04-16 09:19 | US_ITS ---
EXAM: US Abdomen Complete CLINICAL INDICATION: TECHNIQUE: Real-time ultrasound of the abdomen with image documentation. COMPARISON: No relevant prior studies available. FINDINGS: LIVER: Hepatopetal blood flow in the main portal vein. Fatty infiltration of the liver. Liver measures up to 15.3 cm. No intrahepatic bile duct dilation. GALLBLADDER: Gallbladder calculus measuring up to 0.6 cm. COMMON BILE DUCT: Unremarkable as visualized. No stones. No dilation. Common bile duct measures 0.3 cm in diameter. PANCREAS: Unremarkable as visualized. KIDNEYS: Unremarkable. No stones. No hydronephrosis. The right kidney measures 11.0 x 6.0 x 4.5 cm. The left kidney measures 11.3 x 4.5 x 4.5 cm. SPLEEN: Spleen measures up to 10.6 cm. AORTA: Unremarkable. No aneurysm. INFERIOR VENA CAVA: Unremarkable. US/Abdomen Complete IMPRESSION: 1. Fatty infiltration of the liver. 2. Cholelithiasis. Reading Location[facility]
== END | disposition home or self-care (01) ==
LOC: OPUS 09:18
PROVIDERS: PCP Nurse Practitioner Primary Care; Referring Provider Nurse Practitioner Acute Care; Visit Provider Nurse Practitioner Acute Care
DX: R33.9 Retention of urine, unspecified (principal); K59.00 Constipation, unspecified; R30.0 Dysuria; K76.0 Fatty (change of) liver, not elsewhere classified
CPT/HCPCS: 76700

== ENCOUNTER → 2024-04-24 | Outpatient (CLI) | payer MEDICAID, SELFPAY ==
[2024-04-24 14:56] LABS: Absolute Neutrophil Count 3.8 X10^3/uL (2.0-7.7); Basophil# 0.03 X10^3/uL; Basophil% 0.4 % (0-1); Eosinophil# 0.11 X10^3/uL; Eosinophils% 1.5 % (0-5); Hematocrit 36.6 % (37-47); Lymphocyte % 39.7 % (19-41); Mean Corp Hgb Conc 32.8 g/dL (32-36); Mean Corpuscular Hgb 25.1 pg (27.0-32.0); Mean Corpuscular Volume 76.6 fL (81-99); Mean Platelet Vol. 9.2 fl (6.2-12.0); Monocyte# 0.56 X10^3/uL; Monocyte% 7.4 % (0-10); NRBC Flagged by Analyzer 0 % (0-5); Neutrophil # 3.81 X10^3/uL (2.7-7.7); Neutrophil % 50.5 % (47-70); Platelet Count 377 K/mm3 (150-450); RBC Distribution Width CV 14.2 % (11.6-14.6); RBC Distribution Width SD 39.2 fl (35.1-43.9); Red Blood Count 4.78 M/mm3 (4.2-5.4); White Blood Count 7.6 K/mm3 (4.4-11.0)
[2024-04-24 16:45] LABS: Hepatitis B Surface Antibody Reactive; Hepatitis B Surface Antigen Non-Reactive (Nonreactive)
[2024-04-24 17:13] LABS: ALB/GLOB Ratio 0.7 RATIO (0.9-2.4); AST(SGOT) 34 U/L (15-37); Alanine Aminotransfer ALT/SGPT 40 U/L (13-56); Albumin, Serum 3.2 g/dL (3.2-5.0); Alkaline Phosphatase 104 U/L (45-117); Anion Gap 12 (5-15); BUN 7 mg/dL (7-18); Calcium,Total 9.1 mg/dL (8.5-10.1); Chloride 99 mmol/L (98-107); Creatinine, Serum 0.78 mg/dL (0.55-1.02); EST Glomerular Filtration Rate 92 mL/min (>60); Est Glom Filt Rate - Afr Amer 111 mL/min (>60); Globulin 4.3 g/dL (2.2-4.2); Glucose 85 mg/dL (74-106); Protein, Total 7.5 g/dL (6.4-8.2); Sodium Level 135 mmol/L (136-145)
[2024-04-26 05:07] LABS: Hepatitis A AB, Total Positive (Negative); Hepatitis B Core Ab Total Positive (Negative)
== END | disposition home or self-care (01) ==
PROVIDERS: Referring Provider Nurse Practitioner Acute Care; Visit Provider Nurse Practitioner Acute Care
DX: R68.81 Early satiety (principal); K76.0 Fatty (change of) liver, not elsewhere classified; R33.9 Retention of urine, unspecified
CPT/HCPCS: 36415; 80053; 84443; 85025; 86704; 86706; 86708; 87340

== ENCOUNTER → 2024-05-16 | Outpatient (CLI) | payer MEDICAID, SELFPAY ==
--- NOTE | 2024-05-16 22:00 | RAD_ITS ---
PROCEDURE: ABDOMEN SINGLE VIEW REASON FOR EXAM: SITZ marker study. TECHNIQUE: Single view abdomen. COMPARISON: None FINDINGS: Large amount of fecal material is seen in the colon. The majority of the ingested markers are in the distal descending colon as well as the sigmoid colon. No suspicious calcifications. The bones are unremarkable. RAD/Abdomen Single View IMPRESSION: The ingested markers are seen in the distal descending colon as well as the sig moid colon. Reading Location: [facility]
== END | disposition home or self-care (01) ==
LOC: RAD 21:56
PROVIDERS: Visit Provider Nurse Practitioner Acute Care
DX: K59.00 Constipation, unspecified (principal); R33.9 Retention of urine, unspecified; R30.0 Dysuria; K76.0 Fatty (change of) liver, not elsewhere classified
CPT/HCPCS: 74018

== ENCOUNTER → 2024-05-18 | Outpatient (CLI) | payer MEDICAID, SELFPAY ==
--- NOTE | 2024-05-18 13:13 | RAD_ITS ---
PROCEDURE: ABDOMEN SINGLE VIEW REASON FOR EXAM: Sitz marker TECHNIQUE: Supine and upright views of the abdomen. COMPARISON: Radiograph of the abdomen dated 05/16/2024 FINDINGS: Ingested markers are no longer visualized. Mild stool burden is demonstrated within the large bowel. Nonobstructive bowel gas pattern. No free air. No suspicious calcifications. The bones are unremarkable. RAD/Abdomen Single View IMPRESSION: Ingested markers are no longer visualized. Mild stool burden within the large bowel. Reading Location: [facility]
== END | disposition home or self-care (01) ==
LOC: RAD 13:08
PROVIDERS: Visit Provider Nurse Practitioner Acute Care
DX: K76.0 Fatty (change of) liver, not elsewhere classified (principal); R68.81 Early satiety; R33.9 Retention of urine, unspecified
CPT/HCPCS: 74018

== ENCOUNTER → 2024-06-11 | Outpatient (CLI) | payer MEDICAID, SELFPAY ==
--- NOTE | 2024-06-11 19:30 | CT_ITS ---
PROCEDURE: ABDOMEN/PELVIS WITH CONTRAST 06/11/2024 REASON FOR EXAM: ABDOMINAL PAIN, DISTENSION TECHNIQUE: CT abdomen and pelvis was performed with IV contrast. Multiplanar reformats were generated. PATIENT PREPARATION: Per protocol ORAL CONTRAST TYPE: Administered however type and volume information was not provided. CONTRAST: Isovue 370 VOLUME: 98mL One or more dose reduction techniques were used (e.g., Automated exposure control, adjustment of the mA and/or kV according to patient size, use of iterative reconstruction technique. RADIATION DOSE SUMMARY: CTDlvol: 6.65+ 18.16 mGy DLP: 994.57 mGycm COMPARISON: 05/18/2024 and prior FINDINGS: Mild motion limitation through the lung bases. Lung bases: 4 mm LEFT lower lobe nodule (series 2, image 21). Liver: Unremarkable. Spleen: Unremarkable. Gallbladder: Unremarkable. Pancreas: Unremarkable. Adrenals: Unremarkable. Kidneys: Unremarkable. Bowel: Unremarkable. Appendix is not identified. No convincing inflammation in the region. Lymph nodes: Unremarkable. Vasculature: Unremarkable. Peritoneum: Unremarkable. Bladder: Unremarkable. Reproductive Organs: Unremarkable. Body Wall: Tiny fat containing umbilical hernia. Minute fat containing midline supraumbilical hernia also suspected, neck measuring 5 mm. Bones: Unremarkable. CT/Abdomen/Pelvis WITH Contrast IMPRESSION: 1. No acute findings. Appendix is not identified. No convincing inflammation in the region. 2. 4 mm LEFT lower lobe nodule, statistically benign and requiring no specific follow-up in a low risk patient. Otherwise, recommend follow-up CT chest in one year per the Fleischner society recommendat ions for pulmonary nodule follow-up, presuming no history of malignancy or known immunosuppression. 3. Additional description as above. Reading Location: [id number]
== END | disposition home or self-care (01) ==
LOC: CT 17:16
PROVIDERS: Referring Provider Nurse Practitioner Acute Care; Visit Provider Nurse Practitioner Acute Care
DX: R68.81 Early satiety (principal); K76.0 Fatty (change of) liver, not elsewhere classified; R33.9 Retention of urine, unspecified
CPT/HCPCS: 74177; Q9967; A4216

== ENCOUNTER 2024-07-08 15:25 | Emergency (ER) | payer MEDICAID, SELFPAY ==
[2024-07-08 15:27] VITALS: BP 147/77; PULSE 110; RESP 15; TEMP 36; O2SAT 97; BMI 36.9
[2024-07-08 16:51] LABS: Absolute Lymphocyte Count 3.83 X10^3/uL (0.83-4.51); Absolute Neutrophil Count 9.1 X10^3/uL (2.0-7.7); Basophil# 0.06 X10^3/uL; Basophil% 0.4 % (0-1); Eosinophil# 0.06 X10^3/uL; Eosinophils% 0.4 % (0-5); Hematocrit 34.2 % (37-47); Hemoglobin 12.1 g/dL (12.0-15.0); Lymphocyte # 3.83 X10^3/ul (0.83-4.51); Lymphocyte % 27.5 % (19-41); Mean Corp Hgb Conc 35.4 g/dL (32-36); Mean Corpuscular Hgb 27.1 pg (27.0-32.0); Mean Corpuscular Volume 76.7 fL (81-99); Monocyte# 0.81 X10^3/uL; Monocyte% 5.8 % (0-10); NRBC Flagged by Analyzer 0 % (0-5); Neutrophil # 9.07 X10^3/uL (2.7-7.7); Neutrophil % 65.3 % (47-70); Platelet Count 405 K/mm3 (150-450); RBC Distribution Width CV 13.8 % (11.6-14.6); RBC Distribution Width SD 38.1 fl (35.1-43.9); Red Blood Count 4.46 M/mm3 (4.2-5.4); White Blood Count 13.9 K/mm3 (4.4-11.0)
--- NOTE | 2024-07-08 17:03 | EX.ED.DYSGE1 ---
HPI History of Present Illness Chief Complaint: Abn Labs Narrative Narrative: Patient is a 29-year-old female with a past medical history of GERD, substance abuse, fibromyalgia, seizures, hypokalemia, low magnesium levels on supplementation for these issues states that she has a appointment with endocrinology tomorrow. States that she had some blood work obtained in the outpatient setting and notes that she was called within the last hour and a half in regards to her potassium being critically low and was advised to come to the emergency department to be evaluated. She states that she does not know what her potassium level is. She states that she is on 10 mill equivalents of potassium daily and states that she has been taking this. Patient states that she has had restless legs recently as well. [facility] Medical History TMJ syndrome Rectal bleeding Insulin resistance Insomnia Subclinical hypothyroidism Substance abuse GERD (gastroesophageal reflux disease) Hepatitis Migraines Fibromyalgia Low potassium syndrome Vitamin deficiency Seizures Carpal tunnel syndrome Seasonal allergies Home Medications ?Medication ?Instructions ?Recorded ?Last Taken ?Type buprenorphine 2.9 mg-naloxone 0.71 2 tab sublingual QDAY 03/26/24 07/08/24 History mg sublingual tablet cholecalciferol (vitamin D3) 50 50 mcg PO QDAY 03/26/24 07/08/24 History mcg (2,000 unit) capsule clonidine HCl 0.1 mg tablet 0.1 mg PO QHS 03/26/24 07/07/24 History ezetimibe 10 mg tablet 10 mg PO QDAY 03/26/24 07/08/24 History hydrochlorothiazide 25 mg tablet 50 mg PO DAILY 03/26/24 07/08/24 History hydroxyzine HCl 50 mg tablet 100 mg PO QHS 03/26/24 07/07/24 History methocarbamol 750 mg tablet 750 mg PO TID 03/26/24 07/08/24 History pregabalin 300 mg capsule 300 mg PO QHS 03/26/24 07/07/24 History tirzepatide 5 mg/0.5 mL 5 mg subcut QWEEK 03/26/24 07/02/24 History subcutaneous pen injector omeprazole 40 mg capsule,delayed 40 mg PO BID #180 caps 03/27/24 07/08/24 Rx release potassium chloride 10 mEq 10 meq PO QDAY 03/27/24 07/07/24 History tablet,extended release lactulose 10 gram/15 mL oral 30 g (45 mL) PO TID constipation 04/24/24 Unknown Rx solution #946 mL ondansetron 4 mg disintegrating 4 mg PO .COMPLEX #15 tabs 05/22/24 Unknown Rx tablet peg 3350-electrolytes 236 240 ml PO Q10M #4,000 mL 05/22/24 Unknown Rx gram-22.74 gram-6.74 gram-5.86 gram solution (Golytely) acyclovir 400 mg tablet 800 mg PO DAILY 07/08/24 Unknown History biotin 2,500 mcg capsule 2,500 mcg PO DAILY 07/08/24 07/08/24 History calcium citrate 500 mg PO DAILY 07/08/24 07/07/24 History clobetasol 0.05 % topical ointment 1 applic topical BID 07/08/24 Unknown History metformin 500 mg tablet,extended 1,000 mg PO BID 07/08/24 07/07/24 History release 24 hr metoclopramide HCl 10 mg tablet 10 mg PO QAC gastroparesis #9 tabs 07/08/24 Unknown Rx norethindrone 1 mg-ethinyl 1 tab PO DAILY 07/08/24 07/08/24 History estradiol 20 mcg ()-iron 75 mg (7) tablet (Arian Fe 04/01 ()) polyethylene glycol 3350 17 17 g PO TID 07/08/24 Unknown History gram/dose oral powder potassium chloride 20 mEq oral 40 meq PO BID 5 days #100 ea 07/08/24 Unknown Rx packet pregabalin 150 mg capsule 150 mg PO BID 07/08/24 07/08/24 History tralokinumab-ldrm 300 mg/2 mL 300 mg subcut Q14D 07/08/24 07/07/24 History subcutaneous auto-injector (Adbry) Allergy/AdvReac Type Severity Reaction Status Date / Time clindamycin Allergy Mild Unknown Verified 07/08/24 15:27 nickel (Nickel) Allergy Unknown Verified 07/08/24 15:27 Penicillins Allergy Shortness Verified 07/08/24 15:27 of breath naproxen AdvReac Intermediate Other Verified 07/08/24 15:27 amoxicillin AdvReac Mild Rash Verified 07/08/24 15:27 lubiprostone (From Amitiza) AdvReac Mild Rash Verified 07/08/24 15:27 dicyclomine (From Bentyl) AdvReac cramps, Verified 07/08/24 15:27 constipation, chest pain doxycycline AdvReac Vomiting Verified 07/08/24 15:27 metronidazole (From Flagyl) AdvReac Upset Verified 07/08/24 15:27 Stomach sulfamethoxazole (From AdvReac Upset Verified 07/08/24 15:27 Bactrim) Stomach trimethoprim (From Bactrim) AdvReac Upset Verified 07/08/24 15:27 Stomach Family History Father Diabetes Grandfather Diabetes Grandmother Diabetes Other Alcoholism Allergies Anxiety Anxiety and depression Arthritis Asthma defect Bowel disease CVA (cerebral vascular accident) Heart disease High cholesterol Hypertension Kidney disease Liver disease Mental disorder Myocardial infarction Psychiatric care Surgical History History of colonoscopy History of shoulder surgery History of History of appendectomy HISTORY NECK INJECTIONS Social History household members: family current occupational status: unemployed Smoking Status: Current every day smoker tobacco type: cigarettes alcohol intake: never substance use type: IV drugs and methamphetamine caffeine: Yes what type of physical activity do you participate in: none ROS ROS ED ROS Narrative Constitutional: Denies fevers, chills, lightness, dizziness Eyes: Denies change in vision double vision blurry vision Cardiovascular: Denies chest pain Respiratory: Denies shortness of breath Abdomen: Denies nausea vomit diarrhea : Denies urinary symptoms Neurological: Denies numbness, wheeze, tingling Musculoskeletal: Denies back pain Skin: Denies rashes or lesions EXAM Physical Exam Narrative Exam Narrative: General: Patient lying in bed rest comfortably did not appear to be in acute distress Head: Atraumatic, normocephalic Eyes: PERRL bilaterally, EOMI bilateral, no conjunctival injection noted Neck: Soft, supple, trachea midline Cardiovascular: Regular rate and rhythm no murmurs gallops rubs noted Respiratory: Clear to auscultation bilaterally no rales rhonchi or wheeze noted Abdomen: Soft, nondistended, nontender to palpation Extremities: +5/5 strength noted in the bilateral upper and lower extremities, no pedal edema on exam Neurological: Patient following commands as she was at [facility] year is 2024 Skin: Warm, dry, intact no rashes or lesions noted Const Vital Signs: 07/08/24 15:27 07/08/24 17:36 Temperature 96.8 F L Temperature Source Temporal Pulse Rate 110 H 116 H Respiratory Rate 15 15 Blood Pressure 147/77 H 115/74 Blood Pressure Mean 100 87 Pulse Ox 97 97 Oxygen Delivery Method Room Air MDM MDM MDM Narrative Medical decision making narrative: Patient is a 29-year-old female who presented to the emergency department the chief complaint of hypokalemia after a return blood draw today. On the differential diagnose includes but not limited to hypokalemia, hypomagnesia, other electrolyte abnormality. Once workup is obtained reviewed she will be reevaluated. Patient CBC was reviewed and showed a white count of 13,000, hemoglobin stable 12.1, platelet count was noted be normal at 405. Patient's sodium normal 135, potassium was low at 3 she was given 40 mill equivalents of supplementation here, prescription will be sent to the pharmacy for 40 mill equivalents twice daily for 5 days and then 40 mill equivalents daily for the next several days as well. Patient's creatinine normal at 0.99. Patient's magnesium level normal at 1.9, AST and ALT were normal at 41 and 19 respectively. On reevaluation patient she is feeling better she would like to go home at this point time. 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 She is encouraged return with worsening symptoms or any concerns. She is agreeable this plan all question concerns answered she was discharged home in stable condition. Lab Data Labs: Laboratory Results - last 24 hr 07/08/24 16:32 WBC 13.9 H RBC 4.46 Hgb 12.1 Hct 34.2 L MCV 76.7 L MCH 27.1 MCHC 35.4 RDW Std Deviation 38.1 RDW Coeff of Cayden 13.8 Plt Count 405 MPV 10.0 Immature Gran % (Auto) 0.600 Neut % (Auto) 65.3 Lymph % (Auto) 27.5 Lamar % (Auto) 5.8 Eos % (Auto) 0.4 Baso % (Auto) 0.4 Absolute Neuts (auto) 9.1 H Absolute Lymphs (auto) 3.83 Nucleated RBC % 0 Sodium 135 Potassium 3.0 L Chloride 95 L Carbon Dioxide 24.8 Anion Gap 15 BUN 7 Creatinine 0.99 Estim Creat Clear Calc 78.64 Est GFR (MDRD) Non-Af 79 BUN/Creatinine Ratio 7.1 L Glucose 91 Calcium 9.4 Magnesium 1.9 Total Bilirubin 0.49 AST 41 H ALT 19 Alkaline Phosphatase 112 H Total Protein 7.3 Albumin 3.9 Globulin 3.4 Albumin/Globulin Ratio 1.2 Discharge Plan Triage Chief Complaint: Abn Labs ED Provider: Juancarlos Lee Dx/Rx/DC Orders Clinical Impression: Hypokalemia Prescriptions: New potassium chloride 20 mEq packet 40 meq PO BID 5 Days Qty: 100 0RF Rx Instructions: After 5 days of 40 mill equivalents twice daily take 40 mill equivalents daily. No Action methocarbamol 750 mg tablet 750 mg PO TID pregabalin 300 mg capsule 300 mg PO QHS tirzepatide 5 mg/0.5 mL pen injector 5 mg subcut QWEEK buprenorphine-naloxone 2.9-0.71 mg tablet, sublingual 2 tab sublingual QDAY Rx Instructions: place 1 strip/tab under (each) side of tongue cholecalciferol (vitamin D3) 50 mcg (2,000 unit) capsule 50 mcg PO QDAY clonidine HCl 0.1 mg tablet 0.1 mg PO QHS ezetimibe 10 mg tablet 10 mg PO QDAY hydrochlorothiazide 25 mg tablet 50 mg PO DAILY hydroxyzine HCl 50 mg tablet 100 mg PO QHS potassium chloride 10 mEq tablet extended release 10 meq PO QDAY omeprazole 40 mg capsule,delayed release(DR/EC) 40 mg PO BID Qty: 180 1RF Rx Instructions: take 30 minutes before breakfast and dinner lactulose 10 gram/15 mL solution 30 g PO TID Qty: 946 1RF peg 3350-electrolytes [Golytely] 236-22.74-6.74 -5.86 gram recon soln 240 ml PO Q10M Qty: 4000 0RF Rx Instructions: As directed for split dose bowel prep ondansetron 4 mg tablet,disintegrating 4 mg PO .COMPLEX Qty: 15 0RF Rx Instructions: 4 mg orally; take two tablets PO two hours prior to start of bowel prep and one every 4 hours as needed for N/V norethindrone-e.estradiol-iron [Arian Fe 04/01 (28)] 1 mg-20 mcg (21)/75 mg (7) tablet 1 tab PO DAILY acyclovir 400 mg tablet 800 mg PO DAILY clobetasol 0.05 % ointment 1 applic topical BID polyethylene glycol 3350 17 gram/dose powder 17 g PO TID metformin 500 mg tablet extended release 24 hr 1,000 mg PO BID pregabalin 150 mg capsule 150 mg PO BID calcium citrate 250 mg calcium tablet 500 mg PO DAILY Adbry 300 mg/2 mL auto-injector 300 mg SUBCUT Q14D Patient Comments: [NO ORIGINAL SIG] biotin 2,500 mcg capsule 2,500 mcg PO DAILY metoclopramide HCl 10 mg tablet 10 mg PO QAC Qty: 9 0RF Rx Instructions: take one tablet three times a day as directed for colonoscopy bowel prep Primary Care Provider: Robby Bell Referrals: Robby Bell DO [Primary Care Provider] - Activity Restrictions/Additional Instructions: Take the 40 mill equivalents of potassium supplementation twice a day for the next 5 days and then go to 40 mill equivalents daily. Follow-up your grating machine operator tomorrow. Return with worsening symptoms or any concerns. Have your potassium repeated in approximately 3 days Print Language: [place] Disposition Disposition: Home, Self Care
[2024-07-08 17:22] LABS: Magnesium 1.9 mg/dL (1.5-2.2)
[2024-07-08 17:27] LABS: ALB/GLOB Ratio 1.2 RATIO (0.9-2.4); AST(SGOT) 41 U/L (<=31); Alanine Aminotransfer ALT/SGPT 19 U/L (<=34); Albumin, Serum 3.9 g/dL (3.5-5.0); Alkaline Phosphatase 112 U/L (35-104); Anion Gap 15 (5-15); BUN 7 mg/dL (4-19); BUN/Creat Ratio 7.1 RATIO (10-20); Calcium,Total 9.4 mg/dL (7.6-11.0); Carbon Dioxide 24.8 mmol/L (21.0-32.0); Chloride 95 mmol/L (98-108); Creatinine, Serum 0.99 mg/dL (0.70-1.20); EST Glomerular Filtration Rate 79 (>60); Estimated Creatinine Clearance 78.64 ml/min (50-250); Globulin 3.4 g/dL (2.2-4.2); Glucose 91 mg/dL (70-99); Protein, Total 7.3 g/dL (5.9-8.4); Sodium Level 135 mmol/L (133-145); Total Bilirubin 0.49 mg/dL (0.00-1.30)
[2024-07-08 17:36] VITALS: BP 115/74; PULSE 116; RESP 15; O2SAT 97
[2024-07-08] MEDS: Potassium Chloride Oral Tablet 20 MEQ 40 MEQ PO (17:49)
[2024-07-08 17:58] LABS: Bacteria 0 SEEN /hpf (None Seen); Mucous, Urine 0 SEEN /hpf (<or=2+)
[2024-07-08 18:56] LABS: Color, Urine Yellow (Yellow); Glucose, Dipstick Normal (Normal); Ketone-Dipstick Negative (Negative); Leukocyte Esterase-Dipstick Negative /ul (Negative); Nitrite-Dipstick Negative (Negative); Occult Blood-Urine Negative /ul (Negative); Protein-Dipstick 15 mg/dl (Negative); Urine Bilirubin Dipstick Negative (Negative); Urine Clarity Clear (Clear); Urine Urobilinogen Normal (Normal)
[2024-07-08 19:08] LABS: Internal QC Validated? YES +Cl - CLEAR BKGD; Pregnancy, Urine Negative Negative; Red Blood Cells-Urine 0-5 SEEN /hpf (0-5); Squamous Epithelial Cells - UA 0-5 SEEN /hpf (5-10); White Blood Cells 0-5 SEEN /hpf (0-5)
== END 2024-07-08 18:14 | disposition home or self-care (01) ==
PROVIDERS: Emergency Provider Emergency Medicine; Visit Provider Emergency Medicine
DX: E87.6 Hypokalemia (principal); F17.210 Nicotine dependence, cigarettes, uncomplicated; K21.9 Gastro-esophageal reflux disease without esophagitis; Z79.85 Long-term (current) use of injectable non-insulin antidiabetic drugs; Z79.899 Other long term (current) drug therapy; Z79.84 Long term (current) use of oral hypoglycemic drugs
CPT/HCPCS: 80053; 81001; 81025; 83735; 85025; 99282

== ENCOUNTER 2024-10-01 13:55 | Day surgery (SDC) | payer MEDICAID, SELFPAY ==
[2024-10-01] VITALS (7 sets, daily range): BP systolic 85–136; BP diastolic 52–93; PULSE 74–97; RESP 2–18; TEMP 36.2–36.6; O2SAT 97–99; BMI 38.0
[2024-10-01 14:19] LABS: Internal QC Validated? YES +Cl - CLEAR BKGD; Pregnancy, Urine Negative Negative; Record Kit Lot#,Urine Preg 0000962302
--- NOTE | 2024-10-01 14:24 | PCM.PRE.AN2 ---
ASA Classification* ASA Classification ASA Classification: 2 Assessment & Plan Anesthesia* Anesthesia Assessment Anesthesia Assessment: Discussed sedation and/or anesthesia options, risks, benefits, and alternatives with patient/parents/legal guardian/POA. Questions invited. The patient/parents/legal guardian/POA seems to understand and agrees to proceed with anesthesia plan. Reviewed the physical assessment, medical history, allergy history and patient home medications list prior to surgery/procedure/anesthetic and documented any changes. Performed airway and anesthesia risk assessments. Anesthesia Type Anesthesia Type: MAC History Source History Obtained from:: Patient and Chart Anesthesia Focused Assessment* Airway Assessment Mouth opens: 2 cm (poor dentition.) Mallampati Score: III Labs Anesthesia Preop lab: CBC WBC 13.9 K/mm3 (4.4-11.0) H 07/08/24 16:32 07/08/24 RBC 4.46 M/mm3 (4.2-5.4) 07/08/24 16:32 07/08/24 Hgb 12.1 g/dL (12.0-15.0) 07/08/24 16:32 07/08/24 Hct 34.2 % (37-47) L 07/08/24 16:32 07/08/24 Plt Count 405 K/mm3 (150-450) 07/08/24 16:32 07/08/24 CHEMISTRY Potassium 3.0 mmol/L (3.3-5.1) L 07/08/24 16:32 07/08/24 Sodium 135 mmol/L (133-145) 07/08/24 16:32 07/08/24 Magnesium 1.9 mg/dL (1.5-2.2) 07/08/24 16:32 07/08/24 Phosphorus 3.8 mg/dL (2.5-4.9) 12/20/17 06:11 12/20/17 BUN 7 mg/dL (4-19) 07/08/24 16:32 07/08/24 Creatinine 0.99 mg/dL (0.70-1.20) 07/08/24 16:32 07/08/24 Glucose 91 mg/dL (70-99) 07/08/24 16:32 07/08/24 POC Glucose 91 mg/dL (70-110) 12/29/20 09:37 12/29/20 TSH 2.600 uIU/mL (0.358-3.740) 04/24/24 14:22 04/24/24 COAG PT 17.5 SECONDS (11.7-14.9) H 12/16/17 17:50 12/16/17 Urine Test Negative Negative 10/01/24 14:07 10/01/24 Pre-Assessment Diagnosis/Proposed Procedure Planned Operative Procedure(s): COLONOSCOPY Anesthesia History Anesthesia History - product expert: Anesthesia History - product expert Hx Hospitalization No 09/27/24 16:08 Any Problems With Anesthesia No 09/27/24 16:08 Cholinesterase deficiency No 09/27/24 16:08 You/Your Family Experience No 09/27/24 16:08 fever (hyperthermia) with Relationship Recent Exposure to Contagious No 02/14/19 10:01 Disease Does patient have nerve No 09/27/24 16:08 stimulator Patient instructed to have device shut off --Does patient have Pacemaker or ICD? When Was Last Pacemaker Check QUESTION #4 FULL TEXT: You/Your Family Experience fever (hyperthermia) with Anesthesia Last Oral Intake Last Oral intake: Last Oral Intake NPO since Meds taken in AM with sips of water? Meds patient instructed to take am of surgery PONV PONV - product expert: PONV - product expert Female Yes 09/27/24 16:08 HX of Motion Sickness Yes 09/27/24 16:08 HX of N/V After Surgery No 09/27/24 16:08 Non-Smoker No 09/27/24 16:08 Duration of Surgery greater No 09/27/24 16:08 than 60 minutes Number of Risk Factors 2 09/27/24 16:08 PONV Score Moderate Risk 09/27/24 16:08 Height & Weight Height & Weight: Anesthesia: Height & Weight Height 4 ft 11 in 08/06/24 14:38 Respiratory Assessment Respiratory Assessment - product expert: Respiratory Tract Infection Hx - product expert Hx Respiratory Tract Infection No 09/27/24 16:08 STOP Sleep Apnea STOP Sleep Apnea - product expert: STOP Sleep Apnea - product expert Hx Hypertension No 09/27/24 16:08 Hx Sleep Apnea Yes 09/27/24 16:08 CPAP No 09/27/24 16:08 BIPAP No 09/27/24 16:08 Do you snore loudly (louder than talking or can be heard Do you often feel tired/ fatigued/ sleepy during daytime? Has anyone observed you stop breathing during sleep? STOP Results Positive 09/27/24 16:08 QUESTION #5 FULL TEXT : Do you snore loudly (louder than talking or can be heard through closed doors)? 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 Specify any problems Hx of Preganancy in last 3 No 09/27/24 16:08 Months Nurse Filling Out Transfusion SANDRA 09/27/24 16:08 & Questions: Date: 09/27/24 09/27/24 16:08 Time: 16:10 09/27/24 16:08 Patient unable to answer at this time (ie. confused, unrespo /Reproduction History /Reproductive History - product expert: /Reproductive Hx- product expert Hx Now No 09/27/24 16:08 Gestational Age (in weeks): EDC: Hx Hx Para Hx Section SAB No 09/27/24 16:08 Active Medications Active Medications: Current Medications Generic Name Dose Route Start Last Admin Trade Name Freq PRN Reason Stop Dose Admin Lactated Ringer's 1,000 mls @ 15 mls/hr 10/01/24 14:00 IV .Q48H AUSTYN PFSH Medical History (Updated 09/27/24 @ 16:16 by Teressa Lara) Wears contact lenses Wears glasses Loose, teeth Thyroid disease Arthritis High cholesterol Restless legs Injury of back History of IBS Smoker TMJ syndrome Rectal bleeding Insulin resistance Insomnia Subclinical hypothyroidism Substance abuse GERD (gastroesophageal reflux disease) Hepatitis Migraines Fibromyalgia Low potassium syndrome Vitamin deficiency Carpal tunnel syndrome Seasonal allergies Home Medications ?Medication ?Instructions ?Recorded ?Last Taken ?Type buprenorphine 2.9 mg-naloxone 0.71 2 tab sublingual QDAY 03/26/24 10/01/24 History mg sublingual tablet cholecalciferol (vitamin D3) 50 50 mcg PO QDAY 03/26/24 07/08/24 History mcg (2,000 unit) capsule clonidine HCl 0.1 mg tablet 0.1 mg PO QHS 03/26/24 07/07/24 History ezetimibe 10 mg tablet 10 mg PO QDAY 03/26/24 07/08/24 History hydrochlorothiazide 25 mg tablet 50 mg PO BID 03/26/24 07/08/24 History hydroxyzine HCl 50 mg tablet 100 mg PO QHS 03/26/24 07/07/24 History methocarbamol 750 mg tablet 750 mg PO TID 03/26/24 10/01/24 History pregabalin 300 mg capsule 300 mg PO QHS 03/26/24 07/07/24 History omeprazole 40 mg capsule,delayed 40 mg PO BID #180 caps 03/27/24 07/08/24 Rx release lactulose 10 gram/15 mL oral 30 g (45 mL) PO TID constipation 04/24/24 Unknown Rx solution #946 mL ondansetron 4 mg disintegrating 4 mg PO .COMPLEX #15 tabs 05/22/24 Unknown Rx tablet peg 3350-electrolytes 236 240 ml PO Q10M #4,000 mL 05/22/24 Unknown Rx gram-22.74 gram-6.74 gram-5.86 gram solution (Golytely) acyclovir 400 mg tablet 800 mg PO DAILY 07/08/24 Unknown History biotin 2,500 mcg capsule 2,500 mcg PO DAILY 07/08/24 07/08/24 History calcium citrate 500 mg PO DAILY 07/08/24 07/07/24 History clobetasol 0.05 % topical ointment 1 applic topical BID 07/08/24 Unknown History metformin 500 mg tablet,extended 1,000 mg PO BID 07/08/24 07/07/24 History release 24 hr metoclopramide HCl 10 mg tablet 10 mg PO QAC gastroparesis #9 tabs 07/08/24 Unknown Rx norethindrone 1 mg-ethinyl 1 tab PO DAILY 07/08/24 07/08/24 History estradiol 20 mcg (21)-iron 75 mg (7) tablet (Arian Fe 04/01 ()) polyethylene glycol 3350 17 17 g PO TID 07/08/24 Unknown History gram/dose oral powder potassium chloride 20 mEq oral 40 meq PO BID 5 days #100 ea 07/08/24 Unknown Rx packet pregabalin 150 mg capsule 150 mg PO BID 07/08/24 10/01/24 History tralokinumab-ldrm 300 mg/2 mL 300 mg subcut Q14D 07/08/24 07/07/24 History subcutaneous auto-injector (Adbry) rifaximin 550 mg tablet (Xifaxan) 550 mg PO TID #42 tabs 08/06/24 Unknown Rx tenapanor 50 mg tablet (Ibsrela) 50 mg PO BID #60 tabs 08/06/24 Unknown Rx Allergy/AdvReac Type Severity Reaction Status Date / Time clindamycin Allergy Mild Unknown Verified 10/01/24 14:17 nickel (Nickel) Allergy Unknown Verified 10/01/24 14:17 Penicillins Allergy Shortness Verified 10/01/24 14:17 of breath naproxen AdvReac Intermediate Other Verified 10/01/24 14:17 amoxicillin AdvReac Mild Rash Verified 10/01/24 14:17 lubiprostone (From Amitiza) AdvReac Mild Rash Verified 10/01/24 14:17 dicyclomine (From Bentyl) AdvReac cramps, Verified 10/01/24 14:17 constipation, chest pain doxycycline AdvReac Vomiting Verified 10/01/24 14:17 metronidazole (From Flagyl) AdvReac Upset Verified 10/01/24 14:17 Stomach sulfamethoxazole (From AdvReac Upset Verified 10/01/24 14:17 Bactrim) Stomach trimethoprim (From Bactrim) AdvReac Upset Verified 10/01/24 14:17 Stomach Family History Father Diabetes Grandfather Diabetes Grandmother Diabetes Other Alcoholism Allergies Anxiety Anxiety and depression Arthritis Asthma defect Bowel disease CVA (cerebral vascular accident) Heart disease High cholesterol Hypertension Kidney disease Liver disease Mental disorder Myocardial infarction Psychiatric care Surgical History History of colonoscopy History of shoulder surgery History of History of appendectomy HISTORY NECK INJECTIONS Social History household members: family current occupational status: unemployed Smoking Status: Current every day smoker tobacco type: cigarettes alcohol intake: never substance use type: IV drugs and methamphetamine caffeine: Yes what type of physical activity do you participate in: none Review of Systems (Anesthesia) ROS Narrative System reviewed and no additional complaints, except as documented.
[2024-10-01] MEDS: Lactated Ringers 1,000 ML 15 ML IV (14:36)
--- NOTE | 2024-10-01 14:45 | COLBX_PTH ---
PATIENT: GINNY WYNNE LOC: EN U#:[id number] AGE/SX: 29/F ROOM: RE10/01/[address]: Dr. Mike Motta DO : 1995 BED: DIS: 10/01/2024 SPEC #: [id number] RECD: 10/01/24 17:44 STATUS: KRISTAN REQ #: [id number] TONY: 10/01/24 14:[address]: Mike Motta DEPT: SURGICAL PATHOLOGY RECD BY: [place] Jo ENTERED: 10/02/24 10:41 SP TYPE: COLON BX SRINIVASAN DR: Dr. Robby Bell DO Tissues: A - COLON BIOPSY Procedures: Surgery Specimen Level IV HEADER OPERATION: Colonoscopy with biopsy PRE-OP DIAGNOSIS: Irritable bowel syndrome with constipation, lower abdominal pain TISSUE SUBMITTED: A- Random colon biopsy MICROSCOPIC DIAGNOSIS A. Colon, random, biopsy: - No specific pathologic change. MICROSCOPIC DESCRIPTION Slides are reviewed. GROSS DESCRIPTION A. Received in fixative is one container labeled with the patient's name and designated Random colon biopsy. The specimen consists of multiple irregular fragments of light nunez soft tissue that in aggregate measure 1.3 x 0.3 x 0.1 cm. The specimen is totally submitted in one cassette. MT 10/02/2024 CPT:04512
--- NOTE | 2024-10-01 14:55 | PCM.HP.STD ---
[facility] - General General Date of Admission: 10/01/24 Date of Service: 10/01/24 Chief Complaint: Constipation [facility] Narrative GINNY WYNNE, is a 29 F who presents with the Chief Complaint: constipation OV 05/22/2024 29y/o female presents for one month follow-up of CIC, MASLD, GERD, dysphagia and h/o HCV. She was last seen in the office 04/24/2024 with continued complaints of abdominal distension, pain, constipation and difficulty with fecal evacuation. Despite taking Ibsrela BID she is continuing to experience difficulty with evacuation. She reports having urge to defecate and straining with BM. Lactulose was added PRN. Sitz marker study suggests delayed colonic transit time, especially in the left colon, but normal overall transit time since all markers passed by day 5. The significant stool burden suggests constipation, which could be contributing to the slowed transit in the left colon. ARM was also abnormal and I have recommended she complete PTFT and biofeedback. She continues to complain of abdominal bloating, distension, constipation and regurgitation. She is on Tizepitide; however, her symptoms have been ongoing for many years with multiple failed colonoscopies due to failed bowel prep. She has failed Linzess, Amitiza and Trulance in the past. She is presently taking Lactulose and Miralax PRN in addition to Ibsrela BID. She will complete CT as ordered and follow-up with Urogynecology. I have ordered labs and provided her a referral to Nutrition services. She will schedule colonoscopy with modified bowel prep. Patient Instructions: Resume Ibsrela twice a day Continue to use Lactulose and Miralax as needed Follow-up with PFPT Follow-up with Urogynecology Consult with Nutrition Complete CT scan as scheduled BOWEL PREP 1. Metoclopramide 10mg three times a day starting 4 days prior to colonoscopy and continue three times a day until day of procedure DO NOT TAKE HYDROXYZINE WHILE YOU ARE TAKING METOCLOPRAMIDE - YOU CAN RESUME AFTER THE COLONOSCOPY 2. 3 days prior to Colonoscopy start a clear liquid diet and take 3. 2 days prior to Colonoscopy continue clear liquid diet and take SuTAB 4. 1 day prior to Colonoscopy continue clear liquids and take GoLytely (this was sent to your pharmacy) 5. Day of procedure - take remaining doses of GoLyte and check in for procedure as instructed 6. Ondansetron (anti-nausea) medication has been sent to your pharmacy - the Ibsrela has helped, reports when she stops she becomes more constipated - she reports when she continues to take Ibsrela BID she becomes immune to it and has to take Lactulose and then has incontinence - she finds herself taking Lactulose 1-2x a week - feels a sensation of a stopper preventing her from going - c/o terrible bloating, abdominal distension and pain - she is weaning of Tirzepatide - has been on this for a year - ARM was abnormal - she reports PFPT has been beneficial in helping her maintain but not improving anything - she is attending - bloating has been an issue for many years - nausea, denies any emesis [facility] Medical History Wears contact lenses Wears glasses Loose, teeth Thyroid disease Arthritis High cholesterol Restless legs Injury of back History of IBS Smoker TMJ syndrome Rectal bleeding Insulin resistance Insomnia Subclinical hypothyroidism Substance abuse GERD (gastroesophageal reflux disease) Hepatitis Migraines Fibromyalgia Low potassium syndrome Vitamin deficiency Carpal tunnel syndrome Seasonal allergies Home Medications ?Medication ?Instructions ?Recorded ?Last Taken ?Type buprenorphine 2.9 mg-naloxone 0.71 2 tab sublingual QDAY 03/26/24 10/01/24 History mg sublingual tablet cholecalciferol (vitamin D3) 50 50 mcg PO QDAY 03/26/24 07/08/24 History mcg (2,000 unit) capsule clonidine HCl 0.1 mg tablet 0.1 mg PO QHS 03/26/24 07/07/24 History ezetimibe 10 mg tablet 10 mg PO QDAY 03/26/24 07/08/24 History hydrochlorothiazide 25 mg tablet 50 mg PO BID 03/26/24 07/08/24 History hydroxyzine HCl 50 mg tablet 100 mg PO QHS 03/26/24 07/07/24 History methocarbamol 750 mg tablet 750 mg PO TID 03/26/24 10/01/24 History pregabalin 300 mg capsule 300 mg PO QHS 03/26/24 07/07/24 History omeprazole 40 mg capsule,delayed 40 mg PO BID #180 caps 03/27/24 07/08/24 Rx release lactulose 10 gram/15 mL oral 30 g (45 mL) PO TID constipation 04/24/24 Unknown Rx solution #946 mL ondansetron 4 mg disintegrating 4 mg PO .COMPLEX #15 tabs 05/22/24 Unknown Rx tablet peg 3350-electrolytes 236 240 ml PO Q10M #4,000 mL 05/22/24 Unknown Rx gram-22.74 gram-6.74 gram-5.86 gram solution (Golytely) acyclovir 400 mg tablet 800 mg PO DAILY 07/08/24 Unknown History biotin 2,500 mcg capsule 2,500 mcg PO DAILY 07/08/24 07/08/24 History calcium citrate 500 mg PO DAILY 07/08/24 07/07/24 History clobetasol 0.05 % topical ointment 1 applic topical BID 07/08/24 Unknown History metformin 500 mg tablet,extended 1,000 mg PO BID 07/08/24 07/07/24 History release 24 hr metoclopramide HCl 10 mg tablet 10 mg PO QAC gastroparesis #9 tabs 07/08/24 Unknown Rx norethindrone 1 mg-ethinyl 1 tab PO DAILY 07/08/24 07/08/24 History estradiol 20 mcg ()-iron 75 mg (7) tablet (Arian Fe 04/01 ()) polyethylene glycol 3350 17 17 g PO TID 07/08/24 Unknown History gram/dose oral powder potassium chloride 20 mEq oral 40 meq PO BID 5 days #100 ea 07/08/24 Unknown Rx packet pregabalin 150 mg capsule 150 mg PO BID 07/08/24 10/01/24 History tralokinumab-ldrm 300 mg/2 mL 300 mg subcut Q14D 07/08/24 07/07/24 History subcutaneous auto-injector (Adbry) rifaximin 550 mg tablet (Xifaxan) 550 mg PO TID #42 tabs 08/06/24 Unknown Rx tenapanor 50 mg tablet (Ibsrela) 50 mg PO BID #60 tabs 08/06/24 Unknown Rx Allergy/AdvReac Type Severity Reaction Status Date / Time clindamycin Allergy Mild Unknown Verified 10/01/24 14:17 nickel (Nickel) Allergy Unknown Verified 10/01/24 14:17 Penicillins Allergy Shortness Verified 10/01/24 14:17 of breath naproxen AdvReac Intermediate Other Verified 10/01/24 14:17 amoxicillin AdvReac Mild Rash Verified 10/01/24 14:17 lubiprostone (From Amitiza) AdvReac Mild Rash Verified 10/01/24 14:17 dicyclomine (From Bentyl) AdvReac cramps, Verified 10/01/24 14:17 constipation, chest pain doxycycline AdvReac Vomiting Verified 10/01/24 14:17 metronidazole (From Flagyl) AdvReac Upset Verified 10/01/24 14:17 Stomach sulfamethoxazole (From AdvReac Upset Verified 10/01/24 14:17 Bactrim) Stomach trimethoprim (From Bactrim) AdvReac Upset Verified 10/01/24 14:17 Stomach Family History Father Diabetes Grandfather Diabetes Grandmother Diabetes Other Alcoholism Allergies Anxiety Anxiety and depression Arthritis Asthma defect Bowel disease CVA (cerebral vascular accident) Heart disease High cholesterol Hypertension Kidney disease Liver disease Mental disorder Myocardial infarction Psychiatric care Surgical History History of colonoscopy History of shoulder surgery History of History of appendectomy HISTORY NECK INJECTIONS Social History household members: family current occupational status: unemployed Smoking Status: Current every day smoker tobacco type: cigarettes alcohol intake: never substance use type: IV drugs and methamphetamine caffeine: Yes what type of physical activity do you participate in: none ROS Constitutional Constitutional: Denies fatigue, fever(s), poor appetite, weight gain or weight loss Gastrointestinal Gastrointestinal: Denies belching, bloating, change in bowel habits, change in stool character, chewing difficulty, coffee ground emesis, constipation, cramping, diarrhea, dyspepsia, dysphagia, early satiety, excessive flatus, fecal incontinence, heartburn, hematemesis, hematochezia, hemorrhoids, loose stools, melena, nausea, odynophagia, rectal bleeding, tenesmus, vomiting or weight changes Vital Signs Vital Signs Vital Signs: 10/01/24 14:19 10/01/24 14:19 Temperature 97.3 F L Temperature Source Temporal Pulse Rate 97 Respiratory Rate 18 Respiratory Pattern Normal Blood Pressure 124/87 H Blood Pressure Mean 99 Blood Pressure Source Monitor Blood Pressure Position Semi-Fowlers Blood Pressure Location Left Arm Pulse Ox 99 Oxygen Delivery Method Room Air Weight Weight: 188 lb 4.396 oz Body Mass Index (BMI) 38.0 Physical Exam Const alert, oriented x3, no apparent distress and healthy appearing General Appearance: cooperative GI normal to inspection, nondistended, normoactive bowel sounds, soft to palpation, non-tender and non-distended Percussion: normal to percussion Rectal Exam: deferred Results Lab / Micro Data Labs: Laboratory Results - last 24 hr 10/01/24 14:07: Urine Test Negative Assessment & Plan Assessment/Plan (1) Irritable bowel syndrome with constipation: PLAN: Assessment and Plan Assessment and Plan (1) Irritable bowel syndrome with constipation: Status: Acute Medications: New rifaximin (Xifaxan) 550 mg PO TID 42 tabs 0RF tenapanor (Ibsrela) must administer immediately before first meal of day/breakfast and dinner 50 mg PO BID 60 tabs 4RF tenapanor (Ibsrela) must administer immediately before first meal of day/breakfast and dinner 50 mg PO BID 60 tabs 4RF Plan 29y/o female presents for follow-up of constipation, bloating and nausea. She has noted improvement in symptoms with Ibsrela BID, but requires Lactulose a few times a week. She is continuing to attend PFPT and is weaning off Tirzepatide due to vision loss. She will proceed with colonoscopy and follow-up in the office post. Note: [employer] speech recognition edi developer software was used to create portions of this document. Sound-alike and misspelled words, as well as other edi developer errors may be contained in the documentation. Patient Instructions: Continue Ibsrela 50mg BID (samples provided) Lactulose TID PRN Xifaxan 550mg TID x14 days (samples provided) - treatment of presumed SIBO with chronic bloating Colonoscopy - modified prep as outlined Continue PFPT
--- NOTE | 2024-10-01 15:33 | OP.COLON_ITS ---
Patient Name: Maria T Dallas Procedure Date: 10/01/2024 3:00 PM Date of : 1995 Age: 29 Procedure: Colonoscopy Indications: Incidental abdominal pain noted, Incidental abdominal distress noted, Incidental constipation noted Providers: Mike Motta DO Referring MD: Robby Bell Do Medicines: Monitored Anesthesia Care Patient Profile: This is a 29 year old female. Refer to note in patient chart for documentation of history and physical. Last Colonoscopy: none. The patient's first colonoscopy is today. Complications: No immediate complications. Procedure: Pre-Anesthesia Assessment: - Prior to the procedure, a History and Physical was performed, and patient medications and allergies were reviewed. The patient is competent. The risks and benefits of the procedure and the sedation options and risks were discussed with the patient. All questions were answered and informed consent was obtained. Patient identification and proposed procedure were verified by the physician in the pre-procedure area. Mental Status Examination: alert and oriented. Respiratory Examination: clear to auscultation. CV Examination: normal. Prophylactic Antibiotics: The patient does not require prophylactic antibiotics. Prior Anticoagulants: The patient has taken no anticoagulant or antiplatelet agents. ASA Grade Assessment: II - A patient with mild systemic disease. After reviewing the risks and benefits, the patient was deemed in satisfactory condition to undergo the procedure. The anesthesia plan was to use monitored anesthesia care (MAC). Immediately prior to administration of medications, the patient was re-assessed for adequacy to receive sedatives. The heart rate, respiratory rate, oxygen saturations, blood pressure, adequacy of pulmonary ventilation, and response to care were monitored throughout the procedure. The physical status of the patient was re-assessed after the procedure. After I obtained informed consent, the scope was passed under direct vision. Throughout the procedure, the patient's blood pressure, pulse, and oxygen saturations were monitored continuously. The pediatric colonoscope was introduced through the anus and advanced to the cecum, identified by appendiceal orifice and ileocecal valve. The colonoscopy was performed without difficulty. The patient tolerated the procedure well. The quality of the bowel preparation was adequate. The ileocecal valve, appendiceal orifice, and rectum were photographed. Scope In: 3:16:43 PM Scope Withdrawal Time 0 hours 4 minutes 46 seconds Scope Out: 3:26:29 PM Total Procedure Duration Time 0 hours 9 minutes 46 seconds Findings: The perianal and digital rectal examinations were normal. An area of mildly congested mucosa was found in the recto-sigmoid colon, in the sigmoid colon and in the transverse colon. Biopsies were taken with a cold forceps for histology. Verification of patient identification for the specimen was done. Estimated blood loss was minimal. A large amount of stool was found in the entire colon, precluding visualization. Lavage of the area was performed using greater than 500 mL of sterile water, resulting in incomplete clearance with continued poor visualization. Impression: - Congested mucosa in the recto-sigmoid colon, in the sigmoid colon and in the transverse colon. Biopsied. - Stool in the entire examined colon. Recommendation: - Discharge patient to home. - Resume previous diet. - Continue present medications. - Await pathology results. - Repeat colonoscopy because the bowel preparation was poor. Procedure Code(s): --- Professional --- 99464, Colonoscopy, flexible; with biopsy, single or multiple CPT copyright 2021 [employer]. All rights reserved. The codes documented in this report are preliminary and upon prisoner classification interviewer review may be revised to meet current compliance requirements. Mike Motta DO 10/01/2024 3:33:26 PM This report has been signed electronically. Number of Addenda: 0 Note Initiated On: 10/01/2024 3:00 PM
--- NOTE | 2024-10-01 15:34 | OP.CCLET_ITS ---
10/01/2024 Robby Bell Do Re : Colonoscopy procedure for Maria T Dallas Dear Dr. Bell This procedure was performed on Tuesday, October 01, 2024. My impressions and recommendations are as follows: Impressions : - Congested mucosa in the recto-sigmoid colon, in the sigmoid colon and in the transverse colon. Biopsied. - Stool in the entire examined colon. Recommendations : - Discharge patient to home. - Resume previous diet. - Continue present medications. - Await pathology results. - Repeat colonoscopy because the bowel preparation was poor. My findings are described in the full procedure note, which is enclosed. If I can be of further assistance, please feel free to contact me at . Sincerely, Mike Motta, 10/01/2024 3:33:26 PM This report has been signed electronically.
--- NOTE | 2024-10-01 15:35 | PCM.POST.ANE ---
Anesthesia: Postop Eval I Current Vital Signs Temperature: 97.1 F Pulse Rate: 80 Blood Pressure: 85/59 Respiratory Rate: 2 Pulse Ox: 98 Oxygen Delivery Method: Room Air Assessment Airway patent: No Spontaneous unlabored respirations: No Mental status: Awake and Calm nausea: No Vomiting: No Anesthesia Complication: No Fluid Hydration Crystalloid volume administer (ml): 200 Total IV fluid infused: 200 Progress Note Anesthesia document: Postop Eval 1 completed: Yes
--- NOTE | 2024-10-01 18:08 | POSTOPAN2_ITS ---
Anesthesia Postop Eval I Sum Postop Eval Completion status Anesthesia document: Postop Eval 1 completed: Yes Anesthesia Postop Eval I Summary Anesthesia Postop Eval I Summary: Anesthesia Postop Eval I: Assessment Summary Airway patent No 10/01/24 15:36 PET NUTRITION SPECIALIST.[email or web address] Spontaneous unlabored No 10/01/24 15:36 PET NUTRITION SPECIALIST.PKEL respirations Mental status Awake,Calm 10/01/24 15:36 PET NUTRITION SPECIALIST.[email or web address] nausea No 10/01/24 15:36 PET NUTRITION SPECIALIST.[email or web address] Vomiting No 10/01/24 15:36 PET NUTRITION SPECIALIST.PKEL Anesthesia Postop Eval I: Fluid Summary Crystalloid volume administer 200 10/01/24 15:36 PET NUTRITION SPECIALIST.PKEL (ml) Colloids volume administered ( ml) Blood Product volume administered (ml) Total IV fluid infused 200 10/01/24 15:36 PET NUTRITION SPECIALIST.PKEL Anesthesia Postop Eval I: Summary Notes Anesthesia Complication No 10/01/24 15:36 PET NUTRITION SPECIALIST.PKEL Anesthesia Complication Comment: Post-operative progress note Anesthesia: Postop Eval II Evaluation Mental status: Awake and Calm Pain Level: 0 nausea: No Vomiting: No Progress Note Post-operative progress note: Meets discharge criteria Complications Anesthesia Complication: No
--- NOTE | 2024-10-01 18:08 | PCM.POSTANE2 ---
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 Spontaneous unlabored No 10/01/24 15:36 TELEGRAPHIC TYPEWRITER OPERATOR.[email or web address] respirations Mental status Awake,Calm 10/01/24 15:36 TELEGRAPHIC TYPEWRITER OPERATOR.[email or web address] nausea No 10/01/24 15:36 TELEGRAPHIC TYPEWRITER OPERATOR.[email or web address] Vomiting No 10/01/24 15:36 TELEGRAPHIC TYPEWRITER OPERATOR.[email or web address] Anesthesia Postop Eval I: Fluid Summary Crystalloid volume administer 200 10/01/24 15:36 TELEGRAPHIC TYPEWRITER OPERATOR.[email or web address] (ml) Colloids volume administered ( ml) Blood Product volume administered (ml) Total IV fluid infused 200 10/01/24 15:36 TELEGRAPHIC TYPEWRITER OPERATOR.[email or web address] Anesthesia Postop Eval I: Summary Notes Anesthesia Complication No 10/01/24 15:36 TELEGRAPHIC TYPEWRITER OPERATOR.[email or web address] Anesthesia Complication Comment: Post-operative progress note Anesthesia: Postop Eval II Evaluation Mental status: Awake and Calm Pain Level: 0 nausea: No Vomiting: No Progress Note Post-operative progress note: Meets discharge criteria Complications Anesthesia Complication: No
== END 2024-10-01 16:08 | disposition home or self-care (01) ==
LOC: EN 13:55 → AC 13:57
PROVIDERS: Anesthesiology; Visit Provider Internal Medicine Gastroenterology
PROC: 0DJD8ZZ Inspection of Lower Intestinal Tract, Via Natural or Artificial Opening Endoscopic (ICD-10-PCS; CPT 45378; principal; 2024-10-01 14:40)
DX: K58.1 Irritable bowel syndrome with constipation (principal); K21.9 Gastro-esophageal reflux disease without esophagitis; R13.10 Dysphagia, unspecified; E78.00 Pure hypercholesterolemia, unspecified; E88.819 Insulin resistance, unspecified; M79.7 Fibromyalgia; F17.210 Nicotine dependence, cigarettes, uncomplicated; Z79.899 Other long term (current) drug therapy
CPT/HCPCS: 45380; 81025; 88305

== ENCOUNTER → 2024-12-03 | Outpatient (CLI) | payer MEDICAID, SELFPAY ==
--- NOTE | 2024-12-03 10:36 | NM_ITS ---
PROCEDURE: GASTRIC EMPTYING STUDY - 4 HR 12/03/2024 REASON FOR EXAM: N/V, EPIGASTRIC PAIN COMPARISON: None TECHNIQUE: Procedure Code: [id number] Modality: NM Procedure: GASTRIC EMPTYING STUDY - 4 HR The patient ingested a standard meal of 2 eggs, 2 slices of bread, to passive butter and 6 oz of water with 1 mCi of technetium 99 M sulfur colloid. Anterior and posterior planar images of the upper abdomen were obtained for 1 minute immediately following the meal at 1h, 2h and 4h if more than 10% of the activity persisted within the stomach. Regions of interest were drawn, and a geometric mean was used to calculate a [id number]. Fasting Blood Glucose (if diabetic): No record of this could be found. Medications taken that may affect gastric emptying: Metformin RADIOPHARMACEUTICAL: Technetium 99 M sulfur colloid, 1 mCi. FINDINGS: Percent activity remaining in stomach: 1 hour 59 % (normal 37-90%) 2 hours: 17 % (normal 30-60%) 4 hours: 1 % (normal 0-10%) Raw data T1/2 = 66.3 minutes NM/Gastric Emptying Study - 4 HR IMPRESSION: Normal solid phase gastric emptying. Reading Location: [id number]
== END | disposition home or self-care (01) ==
LOC: NM 10:33
PROVIDERS: Referring Provider Nurse Practitioner Acute Care; Visit Provider Nurse Practitioner Acute Care
DX: R10.13 Epigastric pain (principal); R11.2 Nausea with vomiting, unspecified; K59.04 Chronic idiopathic constipation; R68.81 Early satiety
CPT/HCPCS: 78264; A9541

== ENCOUNTER → 2025-01-10 | Outpatient (CLI) | payer MEDICAID, SELFPAY ==
--- NOTE | 2025-01-10 12:54 | NM_ITS ---
PROCEDURE: NM/Hepatobilliary Dean w/Pharm Int
== END | disposition home or self-care (01) ==
LOC: NM 12:54
PROVIDERS: Referring Provider Nurse Practitioner Acute Care; Visit Provider Nurse Practitioner Acute Care
DX: R10.13 Epigastric pain (principal); R11.2 Nausea with vomiting, unspecified; K59.04 Chronic idiopathic constipation; R68.81 Early satiety
CPT/HCPCS: 78227; A9537; J2805

== ENCOUNTER 2025-01-24 12:19 | Day surgery (SDC) | payer MEDICAID, SELFPAY ==
--- NOTE | 2025-01-23 16:50 | PAT.ANESEVAL ---
Pre-Assessment Diagnosis/Proposed Procedure Planned Operative Procedure(s): EGD Anesthesia History Anesthesia History - buffing machine tender: Anesthesia History - buffing machine tender Hx Hospitalization No 01/23/25 11:24 Any Problems With Anesthesia No 01/23/25 11:24 Cholinesterase deficiency No 01/23/25 11:24 You/Your Family Experience No 01/23/25 11:24 fever (hyperthermia) with Relationship Recent Exposure to Contagious No 10/01/24 14:19 Disease Does patient have nerve No 01/23/25 11:24 stimulator Patient instructed to have device shut off --Does patient have Pacemaker or ICD? When Was Last Pacemaker Check QUESTION #4 FULL TEXT: You/Your Family Experience fever (hyperthermia) with Anesthesia Last Oral Intake Last Oral intake: Last Oral Intake NPO since Meds taken in AM with sips of water? Meds patient instructed to take am of surgery PONV PONV - buffing machine tender: PONV - buffing machine tender Female Yes 01/23/25 11:24 HX of Motion Sickness Yes 01/23/25 11:24 HX of N/V After Surgery No 01/23/25 11:24 Non-Smoker No 01/23/25 11:24 Duration of Surgery greater No 01/23/25 11:24 than 60 minutes Number of Risk Factors 2 01/23/25 11:24 PONV Score Moderate Risk 01/23/25 11:24 Height & Weight Height & Weight: Anesthesia: Height & Weight Height 4 ft 11 in 12/30/24 14:38 Respiratory Assessment Respiratory Assessment - buffing machine tender: Respiratory Tract Infection Hx - buffing machine tender Hx Respiratory Tract Infection No 01/23/25 11:24 STOP Sleep Apnea STOP Sleep Apnea - buffing machine tender: STOP Sleep Apnea - buffing machine tender Hx Hypertension No 01/23/25 11:24 Hx Sleep Apnea Yes: NON COMPLIANT 01/23/25 11:24 CPAP No 01/23/25 11:24 BIPAP No 01/23/25 11:24 Do you snore loudly (louder than talking or can be heard Do you often feel tired/ fatigued/ sleepy during daytime? Has anyone observed you stop breathing during sleep? STOP Results Positive 01/23/25 11:24 QUESTION #5 FULL TEXT : Do you snore loudly (louder than talking or can be heard through closed doors)? 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 Specify any problems Hx of Preganancy in last 3 No 01/23/25 11:24 Months Nurse Filling Out Transfusion JZOLLINGE 01/23/25 11:24 & Questions: Date: 01/23/25 01/23/25 11:24 Time: 11:01/23/25 11:24 Patient unable to answer at this time (ie. confused, unrespo /Reproduction History /Reproductive History - buffing machine tender: /Reproductive Hx- buffing machine tender Hx Now No 01/23/25 11:24 Gestational Age (in weeks): EDC: Hx Hx Para Hx Section SAB No 01/23/25 11:24 Does the father of the baby or his family experience fever w Father of the baby Malignant Hypertension history comment [facility] Medical History (Updated 01/23/25 @ 11:24 by Kortney Montiel) Bipolar disorder Rash Dietary restriction Heartburn Sleep apnea Wears contact lenses Wears glasses Loose, teeth Thyroid disease Arthritis High cholesterol Restless legs Injury of back History of IBS Smoker TMJ syndrome Rectal bleeding Insulin resistance Insomnia Subclinical hypothyroidism Substance abuse GERD (gastroesophageal reflux disease) Hepatitis Migraines Fibromyalgia Low potassium syndrome Vitamin deficiency Carpal tunnel syndrome Seasonal allergies Home Medications Medication Instructions Recorded Last Taken Type buprenorphine 2.9 mg-naloxone 0.71 2 tab sublingual QDAY 03/26/24 10/01/24 History mg sublingual tablet cholecalciferol (vitamin D3) 50 50 mcg PO QDAY 03/26/24 07/08/24 History mcg (2,000 unit) capsule clonidine HCl 0.1 mg tablet 0.1 mg PO QHS 03/26/24 07/07/24 History ezetimibe 10 mg tablet 10 mg PO QDAY 03/26/24 07/08/24 History hydrochlorothiazide 25 mg tablet 25 mg PO BID 03/26/24 07/08/24 History hydroxyzine HCl 50 mg tablet 100 mg PO QHS 03/26/24 07/07/24 History methocarbamol 750 mg tablet 750 mg PO TID 03/26/24 10/01/24 History pregabalin 300 mg capsule 300 mg PO QHS 03/26/24 07/07/24 History acyclovir 400 mg tablet 800 mg PO DAILY 07/08/24 Unknown History biotin 2,500 mcg capsule 2,500 mcg PO DAILY 07/08/24 07/08/24 History calcium citrate 500 mg PO DAILY 07/08/24 07/07/24 History clobetasol 0.05 % topical ointment 1 applic topical BID 07/08/24 Unknown History metformin 500 mg tablet,extended 1,000 mg PO .QD 07/08/24 07/07/24 History release 24 hr norethindrone 1 mg-ethinyl 1 tab PO DAILY 07/08/24 07/08/24 History estradiol 20 mcg (21)-iron 75 mg (7) tablet (Arian Fe 04/01 ()) pregabalin 150 mg capsule 150 mg PO BID 07/08/24 10/01/24 History tenapanor 50 mg tablet (Ibsrela) 50 mg PO BID #60 tabs 08/06/24 Unknown Rx ferrous sulfate 325 mg (65 mg 325 mg PO QDAY 10/15/24 Unknown History iron) tablet omeprazole 40 mg capsule,delayed 40 mg PO BID #180 caps 10/15/24 Unknown Rx release potassium chloride 20 mEq oral 20 meq PO BID 10/15/24 Unknown History packet diethylpropion 25 mg tablet 25 mg PO .QD 01/23/25 Unknown History lactulose 10 gram/15 mL oral 30 g PO TID PRN constipation 01/23/25 Unknown History solution magnesium citrate 125 mg capsule 125 mg PO BID 01/23/25 Unknown History spironolactone 25 mg tablet 25 mg PO BID 01/23/25 Unknown History Allergy/AdvReac Type Severity Reaction Status Date / Time clindamycin Allergy Mild Unknown Verified 01/23/25 11:02 nickel (Nickel) Allergy Unknown Verified 01/23/25 11:02 Penicillins Allergy Shortness Verified 01/23/25 11:02 of breath naproxen AdvReac Intermediate Other Verified 01/23/25 11:02 amoxicillin AdvReac Mild Rash Verified 01/23/25 11:02 lubiprostone (From Amitiza) AdvReac Mild Rash Verified 01/23/25 11:02 dicyclomine (From Bentyl) AdvReac cramps, Verified 01/23/25 11:02 constipation, chest pain doxycycline AdvReac Vomiting Verified 01/23/25 11:02 metronidazole (From Flagyl) AdvReac Upset Verified 01/23/25 11:02 Stomach sulfamethoxazole (From AdvReac Upset Verified 01/23/25 11:02 Bactrim) Stomach trimethoprim (From Bactrim) AdvReac Upset Verified 01/23/25 11:02 Stomach Family History Father Diabetes Grandfather Diabetes Grandmother Diabetes Other Alcoholism Allergies Anxiety Anxiety and depression Arthritis Asthma defect Bowel disease CVA (cerebral vascular accident) Heart disease High cholesterol Hypertension Kidney disease Liver disease Mental disorder Myocardial infarction Psychiatric care Surgical History History of colonoscopy History of shoulder surgery History of History of appendectomy HISTORY NECK INJECTIONS Social History household members: family current occupational status: unemployed Smoking Status: Current every day smoker tobacco type: cigarettes and e-cigarettes alcohol intake: never substance use type: IV drugs and methamphetamine caffeine: Yes what type of physical activity do you participate in: none Audit: Pertinent Findings Pertinent Findings EKG Perinent findings: 12/16/2017. Sinus tachycardia at 126 bpm. Right atrial enlargement. Nonspecific ST abnormality. Recommendation Anesthesia Recommendation Anesthesia recommendation: OPTIMIZED for anesthesia
[2025-01-24] VITALS (8 sets, daily range): BP systolic 108–120; BP diastolic 75–84; PULSE 80–90; RESP 16–20; TEMP 36.2–36.5; O2SAT 94–97; BMI 39.6
--- NOTE | 2025-01-24 13:00 | EGD_PTH ---
PATIENT: GINNY WYNNE LOC: EN U#:[id number] AGE/SX: 30/F ROOM: RE01/24/[address]: Dr. Mike Motta DO : 1995 BED: DIS: 01/24/2025 SPEC #: [id number] RECD: 01/24/25 15:17 STATUS: KRISTAN REMehul #: [id number] TONY: 01/24/25 13:[address]: Mike Motta DEPT: SURGICAL PATHOLOGY RECD BY: [place] Jo ENTERED: 01/24/25 15:30 SP TYPE: EGD BIOPSY SRINIVASAN DR: Dr. Robby Bell DO Tissues: A - Duodenum, NOS B - Gastric mucous membrane C - Esophagus, NOS Procedures: Surgery Specimen Level IV HEADER OPERATION: EGD, biopsy PRE-OP DIAGNOSIS: Bloating, nausea / vomiting, epigastric pain TISSUE SUBMITTED: A- Duodenum biopsy, B- Gastric body biopsy, C- Random esophagus biopsy MICROSCOPIC DIAGNOSIS A. Small intestine, duodenum, biopsy: * Small bowel mucosa with no pathologic change B. Stomach, Gastric body, biopsy: * Oxyntic mucosa with mild chronic inflammation * No morphologic evidence of Helicobacter pylori organisms C. Esophagus, random biopsy: * Benign squamous epithelium with no pathologic change MICROSCOPIC DESCRIPTION Slides are reviewed. GROSS DESCRIPTION A. Received in fixative is one container labeled with the patient's name and designated "Duodenum biopsy." The specimen consists of multiple irregular fragments of nunez tissue that in aggregate measure 0.8 x 0.6 x 0.1 cm. The specimen is totally submitted in one cassette. B. Received in fixative is one container labeled with the patient's name and designated "Gastric body biopsy." The specimen consists of multiple irregular fragments of nunez tissue that in aggregate measure 0.8 x 0.8 x 0.1 cm. The specimen is totally submitted in one cassette. C. Received in fixative is one container labeled with the patient's name and designated "Random esophagus biopsy." The specimen consists of multiple irregular fragments of nunez tissue that in aggregate measure 0.8 x 0.6 x 0.1 cm. The specimen is totally submitted in one cassette. CT 01/24/2025 CPT:68945u1
[2025-01-24] MEDS: Lactated Ringers 1,000 ML 15 ML IV (13:05)
--- NOTE | 2025-01-24 13:13 | PCM.PRE.AN2 ---
ASA Classification* ASA Classification ASA Classification: 3 Assessment & Plan Anesthesia* Anesthesia Assessment Anesthesia Assessment: Discussed sedation and/or anesthesia options, risks, benefits, and alternatives with patient/parents/legal guardian/POA. Questions invited. The patient/parents/legal guardian/POA seems to understand and agrees to proceed with anesthesia plan. Reviewed the physical assessment, medical history, allergy history and patient home medications list prior to surgery/procedure/anesthetic and documented any changes. Performed airway and anesthesia risk assessments. Anesthesia Type Anesthesia Type: MAC History Source History Obtained from:: Patient and Chart Anesthesia Focused Assessment* Temperature: 97.6 F Pulse Rate: 80 Blood Pressure: 109/75 Respiratory Rate: 16 Pulse Ox: 97 Oxygen Delivery Method: Room Air Airway Assessment Mouth opens: >3 cm Mallampati Score: II Teeth Condition: Chipped/Broken (Multiple chipped incisors on the top. Slightly loose #7 #8 #9 #10) and Missing Neck Range of motion (ROM): Full ROM Labs Anesthesia Preop lab: CBC WBC, (4.4-11.0) 13.9 K/mm3 H 07/08/24, 16:32 RBC, (4.2-5.4) 4.46 M/mm3 07/08/24, 16:32 Hgb, (12.0-15.0) 12.1 g/dL 07/08/24, 16:32 Hct, (37-47) 34.2 % L 07/08/24, 16:32 Plt Count, (150-450) 405 K/mm3 07/08/24, 16:32 CHEMISTRY Potassium, (3.3-5.1) 3.0 mmol/L L 07/08/24, 16:32 Sodium, (133-145) 135 mmol/L 07/08/24, 16:32 Magnesium, (1.5-2.2) 1.9 mg/dL 07/08/24, 16:32 Phosphorus, (2.5-4.9) 3.8 mg/dL 12/20/17, 06:11 BUN, (4-19) 7 mg/dL 07/08/24, 16:32 Creatinine, (0.70-1.20) 0.99 mg/dL 07/08/24, 16:32 Glucose, (70-99) 91 mg/dL 07/08/24, 16:32 POC Glucose, (70-110) 91 mg/dL 12/29/20, 09:37 TSH, (0.358-3.740) 2.600 uIU/mL 04/24/24, 14:22 COAG PT, (11.7-14.9) 17.5 SECONDS H 12/16/17, 17:50 Urine Test Negative Negative 10/01/24, 14:07 Pre-Assessment Diagnosis/Proposed Procedure Planned Operative Procedure(s): EGD Anesthesia History Anesthesia History - dispute resolution specialist: Anesthesia History - dispute resolution specialist Hx Hospitalization No 01/23/25 11:24 Any Problems With Anesthesia No 01/23/25 11:24 Cholinesterase deficiency No 01/23/25 11:24 You/Your Family Experience No 01/23/25 11:24 fever (hyperthermia) with Relationship Recent Exposure to Contagious No 10/01/24 14:19 Disease Does patient have nerve No 01/23/25 11:24 stimulator Patient instructed to have device shut off --Does patient have Pacemaker No 01/24/25 12:46 or ICD? When Was Last Pacemaker Check QUESTION #4 FULL TEXT: You/Your Family Experience fever (hyperthermia) with Anesthesia Last Oral Intake Last Oral intake: Last Oral Intake NPO since 06:00 01/24/25 12:46 Meds taken in AM with sips of Yes 01/24/25 12:46 water? Meds patient instructed to see med list 01/24/25 12:46 take am of surgery Any additional information?: Yes Meds taken in AM with sips of water?: Yes PONV PONV - dispute resolution specialist: PONV - dispute resolution specialist Female Yes 01/23/25 11:24 HX of Motion Sickness Yes 01/23/25 11:24 HX of N/V After Surgery No 01/23/25 11:24 Non-Smoker No 01/23/25 11:24 Duration of Surgery greater No 01/23/25 11:24 than 60 minutes Number of Risk Factors 2 01/23/25 11:24 PONV Score Moderate Risk 01/23/25 11:24 Height & Weight Height & Weight: Anesthesia: Height & Weight Height 4 ft 11 in 01/24/25 12:46 Weight: 89 kg 01/24/25 12:46 Body Mass Index (BMI) 39.6 01/24/25 12:46 Respiratory Assessment Respiratory Assessment - dispute resolution specialist: Respiratory Tract Infection Hx - dispute resolution specialist Hx Respiratory Tract Infection No 01/23/25 11:24 STOP Sleep Apnea STOP Sleep Apnea - dispute resolution specialist: STOP Sleep Apnea - dispute resolution specialist Hx Hypertension No 01/23/25 11:24 Hx Sleep Apnea Yes: NON COMPLIANT 01/23/25 11:24 CPAP No 01/23/25 11:24 BIPAP No 01/23/25 11:24 Do you snore loudly (louder than talking or can be heard Do you often feel tired/ fatigued/ sleepy during daytime? Has anyone observed you stop breathing during sleep? STOP Results Positive 01/23/25 11:24 QUESTION #5 FULL TEXT : Do you snore loudly (louder than talking or can be heard through closed doors)? 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 Specify any problems Hx of Preganancy in last 3 No 01/23/25 11:24 Months Nurse Filling Out Transfusion JZOLLINGE 01/23/25 11:24 & Questions: Date: 01/23/25 01/23/25 11:24 Time: 11:01/23/25 11:24 Patient unable to answer at this time (ie. confused, unrespo /Reproduction History /Reproductive History - dispute resolution specialist: /Reproductive Hx- dispute resolution specialist Hx Now No 01/23/25 11:24 Gestational Age (in weeks): EDC: Hx Hx Para Hx Section SAB No 01/23/25 11:24 Does the father of the baby or his family experience fever w Father of the baby Malignant Hypertension history comment Active Medications Active Medications: Current Medications Generic Name Dose Route Start Last Admin Trade Name Meghan PRN Reason Stop Dose Admin Lactated Ringer's 1,000 mls @ 15 mls/hr 01/24/25 12:30 01/24/25 13:05 IV 15 mls/hr .Q48H AUSTYN Administration PFSH Medical History Bipolar disorder Rash Dietary restriction Heartburn Sleep apnea Wears contact lenses Wears glasses Loose, teeth Thyroid disease Arthritis High cholesterol Restless legs Injury of back History of IBS Smoker TMJ syndrome Rectal bleeding Insulin resistance Insomnia Subclinical hypothyroidism Substance abuse GERD (gastroesophageal reflux disease) Hepatitis Migraines Fibromyalgia Low potassium syndrome Vitamin deficiency Carpal tunnel syndrome Seasonal allergies Home Medications Medication Instructions Recorded Last Taken Type buprenorphine 2.9 mg-naloxone 0.71 2 tab sublingual QDAY 03/26/24 01/24/25 History mg sublingual tablet cholecalciferol (vitamin D3) 50 50 mcg PO QDAY 03/26/24 07/08/24 History mcg (2,000 unit) capsule clonidine HCl 0.1 mg tablet 0.1 mg PO QHS 03/26/24 07/07/24 History ezetimibe 10 mg tablet 10 mg PO QDAY 03/26/24 01/24/25 11:00 History hydrochlorothiazide 25 mg tablet 25 mg PO BID 03/26/24 07/08/24 History hydroxyzine HCl 50 mg tablet 100 mg PO QHS 03/26/24 07/07/24 History methocarbamol 750 mg tablet 750 mg PO TID 03/26/24 01/24/25 11:00 History pregabalin 300 mg capsule 300 mg PO QHS 03/26/24 07/07/24 History acyclovir 400 mg tablet 800 mg PO DAILY 07/08/24 Unknown History biotin 2,500 mcg capsule 2,500 mcg PO DAILY 07/08/24 07/08/24 History calcium citrate 500 mg PO DAILY 07/08/24 07/07/24 History clobetasol 0.05 % topical ointment 1 applic topical BID 07/08/24 Unknown History metformin 500 mg tablet,extended 1,000 mg PO .QD 07/08/24 07/07/24 History release 24 hr norethindrone 1 mg-ethinyl 1 tab PO DAILY 07/08/24 07/08/24 History estradiol 20 mcg (21)-iron 75 mg (7) tablet (Arian Fe 04/01 ()) pregabalin 150 mg capsule 150 mg PO BID 07/08/24 01/24/25 11:00 History tenapanor 50 mg tablet (Ibsrela) 50 mg PO BID #60 tabs 08/06/24 01/24/25 11:00 Rx ferrous sulfate 325 mg (65 mg 325 mg PO QDAY 10/15/24 Unknown History iron) tablet omeprazole 40 mg capsule,delayed 40 mg PO BID #180 caps 10/15/24 01/24/25 11:00 Rx release potassium chloride 20 mEq oral 20 meq PO BID 10/15/24 Unknown History packet diethylpropion 25 mg tablet 25 mg PO .QD 01/23/25 Unknown History lactulose 10 gram/15 mL oral 30 g PO TID PRN constipation 01/23/25 Unknown History solution magnesium citrate 125 mg capsule 125 mg PO BID 01/23/25 Unknown History spironolactone 25 mg tablet 25 mg PO BID 01/23/25 Unknown History Allergy/AdvReac Type Severity Reaction Status Date / Time clindamycin Allergy Mild Unknown Verified 01/24/25 12:45 nickel (Nickel) Allergy Unknown Verified 01/24/25 12:45 Penicillins Allergy Shortness Verified 01/24/25 12:45 of breath naproxen AdvReac Intermediate Other Verified 01/24/25 12:45 amoxicillin AdvReac Mild Rash Verified 01/24/25 12:45 lubiprostone (From Amitiza) AdvReac Mild Rash Verified 01/24/25 12:45 dicyclomine (From Bentyl) AdvReac cramps, Verified 01/24/25 12:45 constipation, chest pain doxycycline AdvReac Vomiting Verified 01/24/25 12:45 metronidazole (From Flagyl) AdvReac Upset Verified 01/24/25 12:45 Stomach sulfamethoxazole (From AdvReac Upset Verified 01/24/25 12:45 Bactrim) Stomach trimethoprim (From Bactrim) AdvReac Upset Verified 01/24/25 12:45 Stomach Family History Father Diabetes Grandfather Diabetes Grandmother Diabetes Other Alcoholism Allergies Anxiety Anxiety and depression Arthritis Asthma defect Bowel disease CVA (cerebral vascular accident) Heart disease High cholesterol Hypertension Kidney disease Liver disease Mental disorder Myocardial infarction Psychiatric care Surgical History History of colonoscopy History of shoulder surgery History of History of appendectomy HISTORY NECK INJECTIONS Social History household members: family current occupational status: unemployed Smoking Status: Current every day smoker tobacco type: cigarettes and e-cigarettes alcohol intake: never substance use type: IV drugs and methamphetamine caffeine: Yes what type of physical activity do you participate in: none Review of Systems (Anesthesia) ROS Narrative System reviewed and no additional complaints, except as documented.
[2025-01-24] MEDS: Scopolamine 1mg/72hr Patch 1 PATCH TD (13:35)
[2025-01-24 13:36] LABS: Internal QC Validated? YES +Cl - CLEAR BKGD; Pregnancy, Serum, hCG Quali. NEGATIVE Negative; Record Kit Lot#, Serum Preg. 980607
--- NOTE | 2025-01-24 13:43 | PCM.HP.STD ---
HPI - General General Date of Admission: 01/24/25 Date of Service: 01/24/25 Chief Complaint: Abdominal pain HPI Narrative GINNY WYNNE, is a 30 F who presents abdominal pain Details: OV 10/15/2024 29-year-old female with a history of functional bowel disorder and iron deficiency anemia presenting with persistent gastrointestinal symptoms, including constipation and abdominal pain. Ibsrela has mad ea significant improvement in severe pain and constipation. History of vomiting undigested food, and poor response to bowel prep suggest possible gastroparesis. An ultrasound indicated a tiny gallstone, but the role of gallbladder pathology remains unclear. Patient Instructions: - Continue taking Ibsrela twice a day as directed. - Do not skip doses of Ibsrela; contact the office for samples if you are running low. - Expect calls to schedule gastric emptying study and HIDA scan; follow guidelines provided for any preparations. - Continue iron supplements as prescribed. - If you experience an increase in pain or symptoms, or run out of medications, contact the office or visit in person if necessary. - Monitor for changes or new symptoms and report these during your next appointment. - Follow-up in office after completion of HIDA and GES. GES 12/03/2024 Percent activity remaining in stomach: 1 hour 59 % (normal 37-90%) 2 hours: 17 % (normal 30-60%) 4 hours: 1 % (normal 0-10%) Raw data T1/2 = 66.3 minutes HIDA scan scheduled for 1 week - constant bloating and gassey are her primary symptoms - irregular bowel movements - either diarrhea or hard stools - she completed a 14d course of Xifaxan TID x14 days without improvement in symptoms - she is still attending PFPT - she is rarely taking Lactulose and Miralax - Magnesium BID the past 2 months has not made any difference The patient is a 29-year-old female presenting with gastrointestinal symptoms. The primary concerns are persistent bloating and gas, irregular bowel movements, and difficulty swallowing, predominantly with medications. The patient's challenges with bloating began when she was between 14 and 15 years old, leading to a constant sensation of abdominal distension despite varying bowel movement patterns. The bloating appears unrelated to particular foods or activities and remains consistent, regardless of dietary changes. Irregular bowel movements have been prevalent, ranging from diarrhea to constipation without a consistent pattern. She notes that intestinal motility has been a challenge, expressed as infrequent normal bowel movements, interspersed with periods of inadequate evacuation despite attempts. During past inpatient hospital admissions, the patient reported normal bowel movements despite a restricted hospital diet, which has been rare otherwise. Gastrointestinal symptoms have impacted the patient's daily life, causing discomfort and frequent adjustments in managing appointments and medications. There is reported difficulty in swallowing pills, perceiving an obstruction sensation in the chest area, causing distress during medication intake. The patient recalls undergoing an upper gastrointestinal study, with previous findings of gastric emptying having shown 17% remaining at the two-hour zach in the stomach, indicative of rapid gastric emptying, yet reportedly normal mucosal structures. Further, issues with reflux were evaluated with an upper GI procedure some years ago, revealing typical esophageal and gastric conditions without abnormal growths or structural obstructions. Despite this, swallowing difficulties persist, occasionally causing liquid to reemerge nasally, pointing to potential esophageal spasms or atypical contractions. The patient denied any previous significant findings from esophageal manometry yet expressed a similar problem historically. The patient has tried several therapeutic approaches such as Miralax and magnesium supplementation with modest effects. A healthcare pantry includes medications like lactulose for severe constipation, but its use results in unpredictable gastrointestinal responses, discouraging regular consumption. Dietary habits generally include one or two meals daily with unnoticeable improvement in symptoms; dietary trials included omitting aspartame-sweetened flavoring additives in water, postulating a non-contributory relationship to her symptoms. ] [facility] Medical History Bipolar disorder Rash Dietary restriction Heartburn Sleep apnea Wears contact lenses Wears glasses Loose, teeth Thyroid disease Arthritis High cholesterol Restless legs Injury of back History of IBS Smoker TMJ syndrome Rectal bleeding Insulin resistance Insomnia Subclinical hypothyroidism Substance abuse GERD (gastroesophageal reflux disease) Hepatitis Migraines Fibromyalgia Low potassium syndrome Vitamin deficiency Carpal tunnel syndrome Seasonal allergies Home Medications Medication Instructions Recorded Last Taken Type buprenorphine 2.9 mg-naloxone 0.71 2 tab sublingual QDAY 03/26/24 01/24/25 History mg sublingual tablet cholecalciferol (vitamin D3) 50 50 mcg PO QDAY 03/26/24 07/08/24 History mcg (2,000 unit) capsule clonidine HCl 0.1 mg tablet 0.1 mg PO QHS 03/26/24 07/07/24 History ezetimibe 10 mg tablet 10 mg PO QDAY 03/26/24 01/24/25 11:00 History hydrochlorothiazide 25 mg tablet 25 mg PO BID 03/26/24 07/08/24 History hydroxyzine HCl 50 mg tablet 100 mg PO QHS 03/26/24 07/07/24 History methocarbamol 750 mg tablet 750 mg PO TID 03/26/24 01/24/25 11:00 History pregabalin 300 mg capsule 300 mg PO QHS 03/26/24 07/07/24 History acyclovir 400 mg tablet 800 mg PO DAILY 07/08/24 Unknown History biotin 2,500 mcg capsule 2,500 mcg PO DAILY 07/08/24 07/08/24 History calcium citrate 500 mg PO DAILY 07/08/24 07/07/24 History clobetasol 0.05 % topical ointment 1 applic topical BID 07/08/24 Unknown History metformin 500 mg tablet,extended 1,000 mg PO .QD 07/08/24 07/07/24 History release 24 hr norethindrone 1 mg-ethinyl 1 tab PO DAILY 07/08/24 07/08/24 History estradiol 20 mcg (21)-iron 75 mg (7) tablet (Arian Fe 04/01 ()) pregabalin 150 mg capsule 150 mg PO BID 07/08/24 01/24/25 11:00 History tenapanor 50 mg tablet (Ibsrela) 50 mg PO BID #60 tabs 08/06/24 01/24/25 11:00 Rx ferrous sulfate 325 mg (65 mg 325 mg PO QDAY 10/15/24 Unknown History iron) tablet omeprazole 40 mg capsule,delayed 40 mg PO BID #180 caps 10/15/24 01/24/25 11:00 Rx release potassium chloride 20 mEq oral 20 meq PO BID 10/15/24 Unknown History packet diethylpropion 25 mg tablet 25 mg PO .QD 01/23/25 Unknown History lactulose 10 gram/15 mL oral 30 g PO TID PRN constipation 01/23/25 Unknown History solution magnesium citrate 125 mg capsule 125 mg PO BID 01/23/25 Unknown History spironolactone 25 mg tablet 25 mg PO BID 01/23/25 Unknown History Allergy/AdvReac Type Severity Reaction Status Date / Time clindamycin Allergy Mild Unknown Verified 01/24/25 12:45 nickel (Nickel) Allergy Unknown Verified 01/24/25 12:45 Penicillins Allergy Shortness Verified 01/24/25 12:45 of breath naproxen AdvReac Intermediate Other Verified 01/24/25 12:45 amoxicillin AdvReac Mild Rash Verified 01/24/25 12:45 lubiprostone (From Amitiza) AdvReac Mild Rash Verified 01/24/25 12:45 dicyclomine (From Bentyl) AdvReac cramps, Verified 01/24/25 12:45 constipation, chest pain doxycycline AdvReac Vomiting Verified 01/24/25 12:45 metronidazole (From Flagyl) AdvReac Upset Verified 01/24/25 12:45 Stomach sulfamethoxazole (From AdvReac Upset Verified 01/24/25 12:45 Bactrim) Stomach trimethoprim (From Bactrim) AdvReac Upset Verified 01/24/25 12:45 Stomach Family History Father Diabetes Grandfather Diabetes Grandmother Diabetes Other Alcoholism Allergies Anxiety Anxiety and depression Arthritis Asthma defect Bowel disease CVA (cerebral vascular accident) Heart disease High cholesterol Hypertension Kidney disease Liver disease Mental disorder Myocardial infarction Psychiatric care Surgical History History of colonoscopy History of shoulder surgery History of History of appendectomy HISTORY NECK INJECTIONS Social History household members: family current occupational status: unemployed Smoking Status: Current every day smoker (Patient smoked today.) tobacco type: cigarettes and e-cigarettes alcohol intake: never substance use type: IV drugs and methamphetamine caffeine: Yes what type of physical activity do you participate in: none ROS Constitutional Constitutional: Denies fatigue, fever(s), poor appetite, weight gain or weight loss Gastrointestinal Gastrointestinal: Denies belching, bloating, change in bowel habits, change in stool character, chewing difficulty, coffee ground emesis, constipation, cramping, diarrhea, dyspepsia, dysphagia, early satiety, excessive flatus, fecal incontinence, heartburn, hematemesis, hematochezia, hemorrhoids, loose stools, melena, nausea, odynophagia, rectal bleeding, tenesmus, vomiting or weight changes Vital Signs Vital Signs Vital Signs: 01/24/25 12:46 01/24/25 12:46 01/24/25 13:26 Temperature 97.6 F L 97.6 F L Temperature Source Temporal Pulse Rate 80 80 Respiratory Rate 16 16 Respiratory Pattern Normal Blood Pressure 109/75 109/75 Blood Pressure Mean 86 Blood Pressure Source Monitor Blood Pressure Position Semi-Fowlers Blood Pressure Location Left Arm Pulse Ox 97 97 Oxygen Delivery Method Room Air Room Air Weight Weight: 196 lb 3.382 oz Body Mass Index (BMI) 39.6 Physical Exam Const alert, oriented x3, no apparent distress and healthy appearing General Appearance: cooperative GI normal to inspection, nondistended, normoactive bowel sounds, soft to palpation, non-tender and non-distended Percussion: normal to percussion Rectal Exam: deferred Results Lab / Micro Data Labs: Laboratory Results - last 24 hr 01/24/25 13:19: Serum , Qual NEGATIVE Assessment & Plan Assessment/Plan (1) Bloating: (2) Nausea and vomiting: (3) Epigastric pain: PLAN: Assessment and Plan Assessment and Plan (1) Epigastric pain: Status: Acute (2) Constipation: Status: Acute Qualifiers: Constipation type: chronic idiopathic constipation Qualified Code(s): K59.04 - Chronic idiopathic constipation (3) Bloating: Status: Acute Plan 29-year-old female presenting for follow-up with continued gastrointestinal symptoms. The primary concerns are persistent bloating and gas, irregular bowel movements (primarily constipation), and difficulty swallowing (primarily with medications). Her symptoms have been ongoing for many years and she has had little if any significant improvement with prescription laxatives. In terms of esophageal dysphagia with pills I have scheduled her for an EGD. She remains on omeprazole 40 mg twice daily and reports her mom was recently diagnosed with H. pylori. In terms of gas and bloating she does not note any improvement with a bowel movement. She is continuing to attend pelvic floor physical therapy. She denies any improvement with previous treatment of Xifaxan 550 mg 3 times daily for 14 days. I will look into CS[facility] breath testing for her and if available she will complete testing. Patient Instructions: EGD CSID Breath Testing FODMAP Diet
--- NOTE | 2025-01-24 14:15 | PCM.POST.ANE ---
Anesthesia: Postop Eval I Current Vital Signs Temperature: 97.7 F Pulse Rate: 90 Blood Pressure: 120/78 Respiratory Rate: 20 Pulse Ox: 97 Assessment Airway patent: Yes Spontaneous unlabored respirations: Yes nausea: No Vomiting: No Anesthesia Complication: No Fluid Hydration Crystalloid volume administer (ml): 200 Total IV fluid infused: 200 Progress Note Anesthesia document: Postop Eval 1 completed: Yes
--- NOTE | 2025-01-24 14:17 | OP.PROVAT_ITS ---
01/24/2025 Robby Bell Do Re : Upper GI endoscopy procedure for Maria T [place] Dear Dr. Bell This procedure was performed on Friday, January 24, 2025. My impressions and recommendations are as follows: Impressions : - Abnormal esophageal motility. Biopsied. - Chronic gastritis. Biopsied. - Chronic duodenitis. Biopsied. Recommendations : - Discharge patient to home. - Resume previous diet. - Continue present medications. - Await pathology results. My findings are described in the full procedure note, which is enclosed. If I can be of further assistance, please feel free to contact me at . Sincerely, Mike Motta, 01/24/2025 2:17:28 PM This report has been signed electronically.
--- NOTE | 2025-01-24 14:17 | OP.EGD_ITS ---
Patient Name: Maria T Dallas Procedure Date: 01/24/2025 1:48 PM Date of : 1995 Age: 30 Procedure: Upper GI endoscopy Indications: Epigastric abdominal pain, Dysphagia, Suspected esophageal reflux Providers: Mike Motta DO Referring MD: Robby Bell Do Medicines: Monitored Anesthesia Care Patient Profile: This is a 30 year old female. Refer to note in patient chart for documentation of history and physical. Patient has symptoms of chronic abdominal cramping, chronic abdominal distention, chronic epigastric abdominal pain, dysphagia with both liquids and solids, chronic heartburn and chronic regurgitation. Complications: No immediate complications. Procedure: Pre-Anesthesia Assessment: - Prior to the procedure, a History and Physical was performed, and patient medications and allergies were reviewed. The patient is competent. The risks and benefits of the procedure and the sedation options and risks were discussed with the patient. All questions were answered and informed consent was obtained. Patient identification and proposed procedure were verified by the physician in the pre-procedure area. Mental Status Examination: alert and oriented. Airway Examination: normal oropharyngeal airway and neck mobility. Respiratory Examination: clear to auscultation. CV Examination: normal. Prophylactic Antibiotics: The patient does not require prophylactic antibiotics. Prior Anticoagulants: The patient has taken no anticoagulant or antiplatelet agents except for NSAID medication. ASA Grade Assessment: II - A patient with mild systemic disease. After reviewing the risks and benefits, the patient was deemed in satisfactory condition to undergo the procedure. The anesthesia plan was to use monitored anesthesia care (MAC). Immediately prior to administration of medications, the patient was re-assessed for adequacy to receive sedatives. The heart rate, respiratory rate, oxygen saturations, blood pressure, adequacy of pulmonary ventilation, and response to care were monitored throughout the procedure. The physical status of the patient was re-assessed after the procedure. After obtaining informed consent, the endoscope was passed under direct vision. Throughout the procedure, the patient's blood pressure, pulse, and oxygen saturations were monitored continuously. The gastroscope was introduced through the mouth, and advanced to the third part of the duodenum. Small bowel enteroscopy was deemed necessary. The upper GI endoscopy was accomplished without difficulty. The patient tolerated the procedure well. Scope In: 2:05:55 PM Scope Out: 2:12:42 PM Total Procedure Duration Time 0 hours 6 minutes 47 seconds Findings: Abnormal motility was noted in the esophagus. The cricopharyngeus was abnormal. There are extra peristaltic waves in the esophageal body. The distal esophagus/lower esophageal sphincter is spastic, but gives up passage to the endoscope. Biopsies were taken with a cold forceps for histology. Verification of patient identification for the specimen was done. Estimated blood loss was minimal. Patchy moderate inflammation characterized by congestion (edema) and erythema was found in the gastric body. Biopsies were taken with a cold forceps for histology. Verification of patient identification for the specimen was done. Biopsies were taken with a cold forceps for Helicobacter pylori testing. Verification of patient identification for the specimen was done. Estimated blood loss was minimal. Diffuse moderate inflammation characterized by erythema and friability was found in the entire duodenum. Biopsies were taken with a cold forceps for histology. Verification of patient identification for the specimen was done. Estimated blood loss was minimal. Impression: - Abnormal esophageal motility. Biopsied. - Chronic gastritis. Biopsied. - Chronic duodenitis. Biopsied. Recommendation: - Discharge patient to home. - Resume previous diet. - Continue present medications. - Await pathology results. Procedure Code(s): --- Professional --- 86596, Small intestinal endoscopy, enteroscopy beyond second portion of duodenum, not including ileum; with biopsy, single or multiple CPT copyright 2021 [employer]. All rights reserved. The codes documented in this report are preliminary and upon mime artist review may be revised to meet current compliance requirements. Mike Motta DO 01/24/2025 2:17:28 PM This report has been signed electronically. Number of Addenda: 0 Note Initiated On: 01/24/2025 1:48 PM
--- NOTE | 2025-01-24 15:47 | PCM.POSTANE2 ---
Anesthesia Postop Eval I Sum Postop Eval Completion status Anesthesia document: Postop Eval 1 completed: Yes Anesthesia Postop Eval I Summary Anesthesia Postop Eval I Summary: Anesthesia Postop Eval I: Assessment Summary Airway patent Yes 01/24/25 14:16 DIRECTOR [email or web address] Spontaneous unlabored Yes 01/24/25 14:16 DIRECTOR SCRIPT.CSIR respirations Mental status nausea No 01/24/25 14:16 DIRECTOR SCRIPT.CSIR Vomiting No 01/24/25 14:16 DIRECTOR [email or web address].CSIR Anesthesia Postop Eval I: Fluid Summary Crystalloid volume administer 200 01/24/25 14:16 DIRECTOR SCRIPT.CSIR (ml) Colloids volume administered ( ml) Blood Product volume administered (ml) Total IV fluid infused 200 01/24/25 14:16 DIRECTOR SCRIPT.CSIR Anesthesia Postop Eval I: Summary Notes Anesthesia Complication No 01/24/25 14:16 DIRECTOR SCRIPT.CSIR Anesthesia Complication Comment: Post-operative progress note Anesthesia: Postop Eval II Evaluation Mental status: Awake and Calm Pain Level: 0 nausea: No Vomiting: No Complications Anesthesia Complication: No
--- NOTE | 2025-01-24 15:47 | POSTOPAN2_ITS ---
Anesthesia Postop Eval I Sum Postop Eval Completion status Anesthesia document: Postop Eval 1 completed: Yes Anesthesia Postop Eval I Summary Anesthesia Postop Eval I Summary: Anesthesia Postop Eval I: Assessment Summary Airway patent Yes 01/24/25 14:16 DRIVER'S EDUCATION INSTRUCTOR.CSIR Spontaneous unlabored Yes 01/24/25 14:16 DRIVER'S EDUCATION INSTRUCTOR.CSIR respirations Mental status nausea No 01/24/25 14:16 DRIVER'S EDUCATION INSTRUCTOR.CSIR Vomiting No 01/24/25 14:16 DRIVER'S EDUCATION INSTRUCTOR.CSIR Anesthesia Postop Eval I: Fluid Summary Crystalloid volume administer 200 01/24/25 14:16 DRIVER'S EDUCATION INSTRUCTOR.CSIR (ml) Colloids volume administered ( ml) Blood Product volume administered (ml) Total IV fluid infused 200 01/24/25 14:16 DRIVER'S EDUCATION INSTRUCTOR.CSIR Anesthesia Postop Eval I: Summary Notes Anesthesia Complication No 01/24/25 14:16 DRIVER'S EDUCATION INSTRUCTOR.CSIR Anesthesia Complication Comment: Post-operative progress note Anesthesia: Postop Eval II Evaluation Mental status: Awake and Calm Pain Level: 0 nausea: No Vomiting: No Complications Anesthesia Complication: No
== END 2025-01-24 14:55 | disposition home or self-care (01) ==
LOC: EN 12:20 → AC 12:20
PROVIDERS: Anesthesiology; Visit Provider Internal Medicine Gastroenterology
DX: K29.50 Unspecified chronic gastritis without bleeding (principal); E78.00 Pure hypercholesterolemia, unspecified; K29.80 Duodenitis without bleeding; K59.04 Chronic idiopathic constipation; F17.210 Nicotine dependence, cigarettes, uncomplicated; D50.9 Iron deficiency anemia, unspecified; F17.290 Nicotine dependence, other tobacco product, uncomplicated; K21.00 Gastro-esophageal reflux disease with esophagitis, without bleeding; Z79.899 Other long term (current) drug therapy
CPT/HCPCS: 44361; 84703; 88305; J2405

== ENCOUNTER 2025-03-09 17:45 | Emergency (ER) | payer MEDICAID, SELFPAY ==
[2025-03-09 17:46] VITALS: BP 138/94; PULSE 84; RESP 18; TEMP 36.8; O2SAT 100; BMI 40.4
--- NOTE | 2025-03-09 18:00 | ED.VIS.CHEST ---
HPI History of Present Illness Chief Complaint: Chest Pain [facility] Medical History Bipolar disorder Rash Dietary restriction Heartburn Sleep apnea Wears contact lenses Wears glasses Loose, teeth Thyroid disease Arthritis High cholesterol Restless legs Injury of back History of IBS Smoker TMJ syndrome Rectal bleeding Insulin resistance Insomnia Subclinical hypothyroidism Substance abuse GERD (gastroesophageal reflux disease) Hepatitis Migraines Fibromyalgia Low potassium syndrome Vitamin deficiency Carpal tunnel syndrome Seasonal allergies Home Medications Medication Instructions Recorded Last Taken Type buprenorphine 2.9 mg-naloxone 0.71 2 tab sublingual QDAY 03/26/24 01/24/25 History mg sublingual tablet cholecalciferol (vitamin D3) 50 50 mcg PO QDAY 03/26/24 07/08/24 History mcg (2,000 unit) capsule clonidine HCl 0.1 mg tablet 0.1 mg PO QHS 03/26/24 07/07/24 History ezetimibe 10 mg tablet 10 mg PO QDAY 03/26/24 01/24/25 11:00 History hydrochlorothiazide 25 mg tablet 25 mg PO BID 03/26/24 07/08/24 History hydroxyzine HCl 50 mg tablet 100 mg PO QHS 03/26/24 07/07/24 History methocarbamol 750 mg tablet 750 mg PO TID 03/26/24 01/24/25 11:00 History pregabalin 300 mg capsule 300 mg PO QHS 03/26/24 07/07/24 History acyclovir 400 mg tablet 800 mg PO DAILY 07/08/24 Unknown History biotin 2,500 mcg capsule 2,500 mcg PO DAILY 07/08/24 07/08/24 History calcium citrate 500 mg PO DAILY 07/08/24 07/07/24 History clobetasol 0.05 % topical ointment 1 applic topical BID 07/08/24 Unknown History metformin 500 mg tablet,extended 1,000 mg PO .QD 07/08/24 07/07/24 History release 24 hr norethindrone 1 mg-ethinyl 1 tab PO DAILY 07/08/24 07/08/24 History estradiol 20 mcg (21)-iron 75 mg (7) tablet (Arian Fe 04/01 ()) pregabalin 150 mg capsule 150 mg PO BID 07/08/24 01/24/25 11:00 History tenapanor 50 mg tablet (Ibsrela) 50 mg PO BID #60 tabs 08/06/24 01/24/25 11:00 Rx ferrous sulfate 325 mg (65 mg 325 mg PO QDAY 10/15/24 Unknown History iron) tablet omeprazole 40 mg capsule,delayed 40 mg PO BID #180 caps 10/15/24 01/24/25 11:00 Rx release potassium chloride 20 mEq oral 20 meq PO BID 10/15/24 Unknown History packet diethylpropion 25 mg tablet 25 mg PO .QD 01/23/25 Unknown History lactulose 10 gram/15 mL oral 30 g PO TID PRN constipation 01/23/25 Unknown History solution magnesium citrate 125 mg capsule 125 mg PO BID 01/23/25 Unknown History spironolactone 25 mg tablet 25 mg PO BID 01/23/25 Unknown History metoclopramide HCl 5 mg tablet 5 mg PO Q8H PRN nausea and 03/09/25 Unknown Rx (Reglan) vomiting 7 days #20 tabs Allergy/AdvReac Type Severity Reaction Status Date / Time clindamycin Allergy Mild Unknown Verified 03/09/25 17:47 nickel (Nickel) Allergy Unknown Verified 03/09/25 17:47 Penicillins Allergy Shortness Verified 03/09/25 17:47 of breath naproxen AdvReac Intermediate Other Verified 03/09/25 17:47 amoxicillin AdvReac Mild Rash Verified 03/09/25 17:47 lubiprostone (From Amitiza) AdvReac Mild Rash Verified 03/09/25 17:47 dicyclomine (From Bentyl) AdvReac cramps, Verified 03/09/25 17:47 constipation, chest pain doxycycline AdvReac Vomiting Verified 03/09/25 17:47 metronidazole (From Flagyl) AdvReac Upset Verified 03/09/25 17:47 Stomach sulfamethoxazole (From AdvReac Upset Verified 03/09/25 17:47 Bactrim) Stomach trimethoprim (From Bactrim) AdvReac Upset Verified 03/09/25 17:47 Stomach Family History Father Diabetes Grandfather Diabetes Grandmother Diabetes Other Alcoholism Allergies Anxiety Anxiety and depression Arthritis Asthma defect Bowel disease CVA (cerebral vascular accident) Heart disease High cholesterol Hypertension Kidney disease Liver disease Mental disorder Myocardial infarction Psychiatric care Surgical History History of colonoscopy History of shoulder surgery History of History of appendectomy HISTORY NECK INJECTIONS Social History household members: family current occupational status: unemployed Smoking Status: Current every day smoker tobacco type: cigarettes and e-cigarettes alcohol intake: never substance use type: IV drugs and methamphetamine caffeine: Yes what type of physical activity do you participate in: none EXAM Physical Exam Const Vital Signs: 03/09/25 17:46 03/09/25 19:00 03/09/25 20:00 Temperature 98.3 F Temperature Source Oral Pulse Rate 84 80 76 Respiratory Rate 18 20 H 18 Blood Pressure 138/94 H 97/58 L 118/76 Blood Pressure Mean 108 71 90 Pulse Ox 100 95 97 Oxygen Delivery Method Room Air Room Air Room Air MDM MDM MDM Narrative Medical decision making narrative: HISTORY OF PRESENT ILLNESS: Chief complaint: Chest pain 30-year-old female history of IBS, bipolar disorder, polysubstance abuse, IV drug abuse, HPV, fibromyalgia, GERD, hypertension, type 2 diabetes, hyperlipidemia. Presents with chest pain. The patient states she has chest pain radiating to the back, right shoulder. This began 1 week ago. She also notes associated nausea, cough, congestion, body aches, diffuse weakness and chills. Denies focal weakness. Denies syncope. Denies illicit drug use. Denies trauma to the right shoulder. The patient denies recent surgery in the last 4 weeks or immobilization in the last 3 days, denies previous diagnosis of DVT or PE, hemoptysis, unilateral leg swelling or malignancy with treatment the last 6 months or palliative. No estrogen use noted. Patient denies sudden onset of pain, no tearing sensation, no migratory symptoms, no new numbness, weakness or loss of sensation. Patient denies family history or personal history of Connective tissue disorders (Marfan's Syndrome, Yolanda Danlos etc) REVIEW OF SYSTEMS: Pertinent positives: As per HPI Pertinent negatives: As per HPI PHYSICAL EXAM: Nursing triage notes reviewed, Vital signs reviewed Constitutional: please see mdm HENT: MMM Eyes: Pupils equal round and reactive to light, Extraocular muscles intact Neck: No stridor, no JVD, full neck ROM Lungs: Clear to auscultation, No wheezing or rales. No increased work of breathing, no conversational dyspnea, no accessory muscle use, no nasal flaring. No respiratory distress noted Heart: Regular rate and rhythm, No murmurs, No rubs and No gallops, 2+ distal pulses (radial, femoral, posterior tibial) in all extremities Abdomen: Soft, there is no tenderness, rigidity, rebound or guarding, no obvious peritoneal signs, no palpable pulsatile abdominal masses, no auscultated abdominal bruit : No CVAT Extremities: No edema Neuro: No new focal neurological deficits, cranial nerves II through XII intact, 5/5 strength in all present extremities. Intact sensation to light touch in all present extremities, 2+ reflexes bilateral patella tendons. Skin: No rash or lesions noted MEDICAL DECISION MAKING: Chief Complaint: please see HPI External records reviewed: Reviewed prior cardiovascular testing. No recent echocardiograms, cardiac stress test or cardiac catheterizations noted in the chart Factors affecting care: n as per [facility] Social determinants of health: History mental health disorder, polysubstance History obtained from others: Significant other Consults: none [facility] Narrative: The patient was initially hemodynamically stable, afebrile and nontoxic-appearing. She was saturating 100% on room air. Exam without focal cardiopulmonary abnormalities. Lungs were clear. There is no wheezing rales or rhonchi. There is no murmurs gobs or rubs. She had no stigmata of VTE, CHF or aortic dissection on initial exam. I considered the following differential diagnosis: ACS, arrhythmia, anemia, electro disturbance, PE, aortic dissection, pneumonia, viral illness I obtained a broad lab and imaging workup to further determine if the patient was suffering from a life-threatening etiology. Initially treated the patient with 500 cc normal saline bolus, 5 mg of IV Reglan and 15 mg IV Toradol ALL IMAGES (IF OBTAINED) HAVE BEEN PERSONALLY REVIEWED AND INTERPRETED BY MYSELF. EKG with normal sinus rhythm rate of 92, normal axis, normal intervals, no STEMI, no signs of pericarditis, no right heart strain CBC without leukocytosis, severe anemia, no thrombocytopenia. BMP with mild hypokalemia, otherwise no significant Gayathri abnormalities, no sign of ASAF, no sign of metabolic acidosis or endorgan hypoperfusion with a normal bicarb and anion gap High-sensitivity troponin is negative, no evidence of myocardial ischemia x2 (essentially ruling out ACS based on [facility]'s high-sensitivity protocol) Urinalysis shows no evidence of urinary inflammation suggestive of UTI The synthesis of the patient's history, physical exam, labs images suggest no acute life or limb drug etiology. While I considered pulmonary embolism as a potential etiologies patient low risk Wells score and as such I have low suspicion for PE. The patient had no stigmata of aortic dissection on either history or lab evaluation. The patient is appropriate for discharge home with prompt PCP follow-up for further outpatient evaluation. Strict return precautions were discussed. The patient and/or family, caregivers express understanding. The patient and/or family, caregivers agrees with the plan. Shared decision making: I will have a discussion with the patient and or visitors regarding risk/benefits of further testing or admission. They will be made aware of of the risk/benefits inherent in this decision they will be given the opportunity to voice understanding. Total critical care time today provided was at least 0 minutes. This excludes separately billable procedures. Critical care time (if documented) is secondary to the patient having high probability of clinically significant/life threatening deterioration in the patient's condition which required my urgent intervention. Impression: 1. Chest pain 2. History of type 2 diabetes Dispo: Discharge home This note was generated with Appier dictation software. It may contain incorrect words, spelling, and punctuation that were not noted in review of the chart prior to signing. Lab Data Labs: Laboratory Results - last 24 hr 03/09/25 03/09/25 18:30 20:32 WBC 10.4 RBC 4.93 Hgb 13.3 Hct 40.0 MCV 81.1 MCH 27.0 MCHC 33.3 RDW Std Deviation 39.1 RDW Coeff of Cayden 13.5 Plt Count 358 MPV 9.4 Immature Gran % (Auto) 0.700 Neut % (Auto) 73.5 H Lymph % (Auto) 20.0 [place]enton % (Auto) 4.5 Eos % (Auto) 0.7 Baso % (Auto) 0.6 Absolute Neuts (auto) 7.7 Absolute Lymphs (auto) 2.09 Nucleated RBC % 0 Sodium 140 Potassium 3.2 L Chloride 102 Carbon Dioxide 25.5 Anion Gap 13 BUN 10 Creatinine 0.84 Estim Creat Clear Calc 96.57 Est GFR (MDRD) Non-Af 95 BUN/Creatinine Ratio 11.4 Glucose 114 H Calcium 9.1 Troponin T High Sens < 6 Troponin T Hi Sens 2 Hr < 6 Urine Color Straw Urine Clarity Clear Urine pH 6.0 Ur Specific [place] 1.010 Urine Protein 15 H Urine Glucose (UA) Normal Urine Ketones Negative Urine Occult Blood Negative Urine Nitrite Negative Urine Bilirubin Negative Urine Urobilinogen Normal Ur Leukocyte Esterase Negative Urine RBC 0 SEEN Urine WBC 0 SEEN Ur Squamous Epith Cells 0-5 SEEN Urine Bacteria 0 SEEN Urine Mucus 0 SEEN Radiography Diagnostic Testing: Clinical Impression(s) from Imaging Studies Chest X-Ray 03/09/25 18:17 IMPRESSION: No acute cardiopulmonary findings. Reading Location: [id number] Discharge Plan Triage Chief Complaint: Chest Pain ED Provider: Carmelo Collins Dx/Rx/DC Orders Instructions: ED Chest Pain, Uncertain Cause Prescriptions: New metoclopramide HCl [Reglan] 5 mg tablet 5 mg PO Q8H PRN (Reason: nausea and vomiting) 7 Days Qty: 20 0RF No Action methocarbamol 750 mg tablet 750 mg PO TID pregabalin 300 mg capsule 300 mg PO QHS buprenorphine-naloxone 2.9-0.71 mg tablet, sublingual 2 tab sublingual QDAY Rx Instructions: place 1 strip/tab under (each) side of tongue cholecalciferol (vitamin D3) 50 mcg (2,000 unit) capsule 50 mcg PO QDAY clonidine HCl 0.1 mg tablet 0.1 mg PO QHS ezetimibe 10 mg tablet 10 mg PO QDAY hydrochlorothiazide 25 mg tablet 25 mg PO BID hydroxyzine HCl 50 mg tablet 100 mg PO QHS Ibsrela 50 mg tablet 50 mg PO BID Qty: 60 4RF Rx Instructions: must administer immediately before first meal of day/breakfast and dinner potassium chloride 20 mEq packet 20 meq PO BID Rx Instructions: After 5 days of 40 mill equivalents twice daily take 40 mill equivalents daily. ferrous sulfate 325 mg (65 mg iron) tablet 325 mg PO QDAY norethindrone-e.estradiol-iron [Arian Fe 04/01 ()] 1 mg-20 mcg (21)/75 mg (7) tablet 1 tab PO DAILY acyclovir 400 mg tablet 800 mg PO DAILY clobetasol 0.05 % ointment 1 applic topical BID metformin 500 mg tablet extended release 24 hr 1,000 mg PO .QD Patient Comments: TAKES AT HS pregabalin 150 mg capsule 150 mg PO BID calcium citrate 250 mg calcium tablet 500 mg PO DAILY biotin 2,500 mcg capsule 2,500 mcg PO DAILY spironolactone 25 mg tablet 25 mg PO BID magnesium citrate 125 mg capsule 125 mg PO BID diethylpropion 25 mg tablet 25 mg PO .QD lactulose 10 gram/15 mL solution 30 g PO TID PRN (Reason: constipation) omeprazole 40 mg capsule,delayed release(DR/EC) 40 mg PO BID Qty: 180 1RF Rx Instructions: take 30 minutes before breakfast and dinner Primary Care Provider: Robby Bell Referrals: Robby Bell DO [Primary Care Provider, Medical] Print Language: Welsh
--- NOTE | 2025-03-09 18:17 | EKG12_ITS ---
Test Reason : CHEST PAIN Blood Pressure : */* mmHG Vent. Rate : 92 BPM Atrial Rate : 92 BPM P-R Int : 132 ms QRS Dur : 80 ms QT Int : 368 ms P-R-T Axes : 48 26 29 degrees QTcB Int : 455 ms Normal sinus rhythm Low voltage QRS Borderline ECG Confirmed by Michael Turner ([id number]), department editor ESTHER SANZ ([id number]) on 03/11/2025 10:00:57 AM Referred By: Confirmed By: Michael Turner
--- NOTE | 2025-03-09 18:17 | RAD_ITS ---
PROCEDURE: CHEST 1 VIEW (PORTABLE) 03/09/2025 REASON FOR EXAM: CP TECHNIQUE: Frontal view of the chest. FINDINGS: There are no focal opacities, pleural effusions, or pneumothoraces. The heart size is unremarkable. The upper abdomen is unremarkable. The osseous structures are intact. RAD/Chest 1 View (Portable) IMPRESSION: No acute cardiopulmonary findings. Reading Location: [id number]
--- OUTSIDE RECORDS SUMMARY | 2025-03-09 18:26 | XMS RPT_ITS | CCD ---
Author Organization [facility] Care Team Providers Care Mall Plant Caretaker Name Role Phone Phuc White Unavailable Micaela Kline Unavailable Deepthi Santizoica N Unavailable JOCELYN CARRIZALES Unavailable Unavailable SKINNY DHALIWAL Unavailable Unavailable GANTA, SEAN C Unavailable Unavailable SKINNY DHALIWAL Unavailable Unavailable SKINNY DHALIWAL Unavailable Unavailable GANTA, SEAN C Unavailable Unavailable JOCELYN MELLO Unavailable Unavailable SKINNY DHALIWAL Unavailable Unavailable GANTA, SEAN C Unavailable Unavailable [facility] Unavailable Unavailable NO REFERRING DR Unavailable Unavailable UNKNOWN, PROVIDER Unavailable Unavailable Phuc White Unavailable Darlyn, Savannah N Unavailable Darlyn Savannah N Unavailable Darlyn Savannah N Unavailable Darlyn Savannah N Unavailable Micaela Foreman Primary Care Provider [phone] PHYSICIAN, NONE Primary Care Physician Unavailab ROWAN Marquez Primary Care Physician Cici Welch Unavailable Radu FIGUEROA Efewongbe B Primary Care Provider [phone] Smith Magdaleno MD P Unavailable Deeser, Cici S Unavailable Melo Lovelace MDongbe B Primary Care Provider [phone] Smith Magdaleno MD P Unavailable Deeser, Cici S Unavailable Deeser, Cici S Unavailable Melo Lovelace MDongbe B Primary Care Provider [phone] Smith Magdaleno MD P Unavailable OLEGHE, EFEWONGBE B Primary Care Unavailable JAMES AGUIRRE Attending Unavailable RISSA ABDI Attending Unavailable OLEGHE, EFEWONGBE B Primary Care Unavailable Seffens, Rowan Primary Care Provider Seffens REVIEW ENGINEER.MORTARMAN, Rowan Primary Care Provider Melo Lovelace MDongbe B Primary Care Provider [phone] Unavailable Primary Care Provider Unavailsylwia e Seffens, Rowan Primary Care Provider [phone] Deeser, Cici S Unavailable Seffens REVIEW ENGINEER.MORTARMAN, Rowan Primary Care Provider MICHELE BELL DO Primary Care Physician SEFFENS, ROWAN Primary Care Unavailable SEFFENS, ROWAN Primary Care Unavailable DAVID DENT Attending Unavailable SEFFENS, ROWAN Primary Care Unavailable SEFFENS, ROWAN Primary Care Unavailable CAMERON MÁRQUEZ Attending Unavailable OLEGHE, EFEWONGBE B Primary Care Unavailable OLEGHE, EFEWONGBE B Primary Care Unavailable CAMERON MÁRQUEZ Attending Unavailable OLEGHE, EFEWONGBE B Primary Care Unavailable OLEGHE, EFEWONGBE B Primary Care Unavailable CAMERON MÁRQUEZ Attending Unavailable OLEGHE, EFEWONGBE B Primary Care Unavailable OLEGHE, EFEWONGBE B Primary Care Unavailable SEFFENS, ROWAN Primary Care Unavailable TALI BOGGS Referring Unavailable SEFFENS, ROWAN Primary Care Unavailable BEBE MCKENNA Attending Unavailable SEFFENS, ROWAN Primary Care Unavailable SEFFENS, ROWAN Primary Care Unavailable JOY FIGUEROA, DENNYS Attending Unavaila ble BELL DO, MICHELE E Primary Care Unavailable JOY FIGUEROA, DENNYS Attending Unavaila ble BELL DO, MCIHELE E Primary Care Unavailable DENNYS HAMILTON MD Attending Unavaila ble BELL DO, MICHELE E Primary Care Unavailable BELL DO, MICHELE E Attending Unavailable BELL DO, MICHELE E Primary Care Unavailable RIAZ REVIEW ENGINEER-MORTARMAN, BHUMIKA Thomas Attending Un available BELL DO, MICHELE E Primary Care Unavailable RIAZ REVIEW ENGINEER-MORTARMAN, BHUMIKA Thomas Attending Un available BELL DO, MICHELE E Primary Care Unavailable BELL DO, MICHELE E Attending Unavailable BELL DO, MICHELE E Primary Care Unavailable SEFFENS REVIEW ENGINEER-MORTARMAN, ROWAN Attending Unavai lable SEFFENS REVIEW ENGINEER-MORTARMAN, ROWAN Primary Care Unavai lable BELL DO, MICHELE E Attending Unavailable SEFFENS REVIEW ENGINEER-MORTARMAN, ROWAN Primary Care Unavai lable Seffens REVIEW ENGINEER.MORTARMAN, Rowan Primary Care Provider Michele Bell DO Primary Care Provider [phone] Seffens REVIEW ENGINEER.MORTARMAN, Rowan Primary Care Provider Corey Lovelace MD Primary Care Provider [phone] Micaela Foreman Primary Care Provider SEFFENS, ROWAN Primary Care Unavailable BOLLAS, MARIE Attending Unavailable SEFFENS, ROWAN Primary Care Unavailable BOLLAS, MARIE Attending Unavailable BOLLAS, MARIE Attending Unavailable SEFFENS, ROWAN Primary Care Unavailable BOLLAS, MARIE Attending Unavailable SEFFENS, ROWAN Primary Care Unavailable BOLLAS, MARIE Attending Unavailable SEFFENS, ROWAN Primary Care Unavailable BOLLAS, MARIE Attending Unavailable SEFFENS, ROWAN Primary Care Unavailable BOLLAS, MARIE Attending Unavailable SEFFENS, ROWAN Primary Care Unavailable PROVIDER, UNKNOWN Admitting Unavailable ALEXI VO Attending Unavailable ALEXI VO Attending Unavailable PROVIDER, UNKNOWN Admitting Unavailable MEME VERGARA Referring Unavailable BELL, MICHELE Primary Care Unavailable BELL, MICHELE Primary Care Unavailable BELL, MICHELE Primary Care Unavailable CHE CABALLERO Referring Unavailable BELL, MICHELE Primary Care Unavailable BELL, MICHELE Primary Care Unavailable BELL, MICHELE Primary Care Unavailable RAMONA SLADE Attending Unavailable Ahsan FIGUEROA, [place] Primary Care Provider SKINNY ELLIS Referring Unavailable AHSAN, MICAELA Primary Care Unavailable BALHarlan, SKINNY Attending Unavailable BALK, SKINNY Referring Unavailable AHSAN, MICAELA Primary Care Unavailable AHSAN, MICAELA Primary Care Unavailable BALK, SKINNY Referring Unavailable KARETI, MAURY Referring Unavailable AHSAN, MICAELA Primary Care Unavailable KARETI, MAURY Attending Unavailable KARETI, MENDIOLA Referring Unavailable AHSAN, MICAELA Primary Care Unavailable KARETI, MENDIOLA Attending Unavailable KARETI, MENDIOLA Referring Unavailable AHSAN, MICAELA Primary Care Unavailable KARETI, MENDIOLA Referring Unavailable AHSAN, MICAELA Primary Care Unavailable BELL DO, MICHELE E Primary Care Unavailable DENNYS HAMILTON MD Attending Unavaila ble BELL DO, MICHELE E Primary Care Unavailable DENNYS HAMILTON MD Attending Unavaila ble BELL DO, MICHELE E Primary Care Unavailable DENNYS HAMILTON MD Attending Unavaila ble BELL DO, MICHELE E Attending Unavailable BELL DO, MICHELE E Primary Care Unavailable BELL DO, MICHELE E Attending Unavailable BELL DO, MICHELE E Primary Care Unavailable BELL DO, MICHELE E Attending Unavailable BELL DO, MICHELE E Primary Care Unavailable BELL DO, MICHELE E Attending Unavailable BELL DO, MICHELE E Primary Care Unavailable BELL DO, MICHELE E Attending Unavailable BELL DO, MICHELE E Primary Care Unavailable BELL DO, MICHELE E Attending Unavailable BELL DO, MICHELE E Primary Care Unavailable BELL DO, MICHELE E Attending Unavailable BELL DO, MICHELE E Primary Care Unavailable DENNYS HAMILTON MD Attending Unavaila ble BELL DO, MICHELE E Primary Care Unavailable BELL DO, MICHELE E Primary Care Unavailable BELL DO, MICHELE E Attending Unavailable LLOYD FIGUEROA~[id number], LLOYD Thomas Atte nding Unavailable LLOYD FIGUEROA~[id number], LLOYD Thomas Admi tting Unavailable AA NO PCP NO PCP, NO PCP~[id number] AA NO PCP Pr imary Care Unavailable APOSTOLIS MD~[id number], APOSTOLIS VENANCIO A Admi tting Unavailable AA NO PCP NO PCP, NO PCP~[id number] AA NO PCP Pr imary Care Unavailable APOSTOLIS MD~[id number], APOSTOLIS VENANCIO A Atte nding Unavailable APOSTOLIS MD~[id number], APOSTOLIS VENANCIO A Atte nding Unavailable APOSTOLIS MD~[id number], APOSTOLIS VENANCIO A Admi tting Unavailable AA NO PCP NO PCP, NO PCP~[id number] AA NO PCP Pr imary Care Unavailable APOSTOLIS MD~[id number], APOSTOLIS VENANCIO A Atte nding Unavailable APOSTOLIS MD~[id number], APOSTOLIS VENANCIO A Admi tting Unavailable AA NO PCP NO PCP, NO PCP~[id number] AA NO PCP Pr imary Care Unavailable APOSTOLIS MD~[id number], APOSTOLIS VENANCIO A Atte nding Unavailable APOSTOLIS MD~[id number], APOSTOLIS VENANCIO A Admi tting Unavailable AA NO PCP NO PCP, NO PCP~[id number] AA NO PCP Pr imary Care Unavailable APOSTOLIS MD~[id number], APOSTOLIS VENANCIO A Atte nding Unavailable APOSTOLIS MD~[id number], APOSTOLIS VENANCIO A Admi tting Unavailable AA NO PCP NO PCP, NO PCP~[id number] AA NO PCP Pr imary Care Unavailable APOSTOLIS MD~[id number], APOSTOLIS VENANCIO A Atte nding Unavailable APOSTOLIS MD~[id number], APOSTOLIS VENANCIO A Admi tting Unavailable AA NO PCP NO PCP, NO PCP~[id number] AA NO PCP Pr imary Care Unavailable APOSTOLIS MD~[id number], APOSTOLIS VENANCIO A Atte nding Unavailable APOSTOLIS MD~[id number], APOSTOLIS VENANCIO A Admi tting Unavailable AA NO PCP NO PCP, NO PCP~[id number] AA NO PCP Pr imary Care Unavailable APOSTOLIS MD~[id number], APOSTOLIS VENANCIO A Atte nding Unavailable APOSTOLIS MD~[id number], APOSTOLIS VENANCIO A Admi tting Unavailable AA NO PCP NO PCP, NO PCP~[id number] AA NO PCP Pr imary Care Unavailable LLOYD FIGUEROA~[id number], LLOYD CRAFT A Admi tting Unavailable LLOYD FIGUEROA~[id number], LLOYD Thomas Atte nding Unavailable AA NO PCP NO PCP, NO PCP~[id number] AA NO PCP Pr imary Care Unavailable LLOYD FIGUEROA~[id number], LLOYD CRAFT A Atte nding Unavailable LLOYD FIGUEROA~[id number], AKANKSHASTTORRI CRAFT A Admi tting Unavailable AA NO PCP NO PCP, NO PCP~[id number] AA NO PCP Pr imary Care Unavailable BELL DO, MICHELE E Attending Unavailable BELL DO, MICHELE E Primary Care Unavailable Bell, Michele Primary Care Unavailable José Manuel, Neeru Referring Unavailable José Manuel, Neeru Attending Unavailable Bell, Michele Referring Unavailable Friend, Mike Attending Unavailable Blel, Michele Primary Care Unavailable José Manuel, Neeru Referring Unavailable Bell, Michele Primary Care Unavailable José ManuelNeeru Attending Unavailable Juancarlos Lee Attending Unavailable Bell, Michele Primary Care Unavailable Bell, Michele Referring Unavailable Friend, Mike Attending Unavailable Bell, Michele Primary Care Unavailable Bell, Michele Primary Care Unavailable José Manuel, Neeru Attending Unavailable Seffens HOOKER LASTER, Rowan Primary Care Unavailable José Manuel, Neeru Referring Unavailable José Manuel, Neeru Attending Unavailable Bell, Michele Primary Care Unavailable José Manuel, Neeru Attending Unavailable José Manuel, Neeru Referring Unavailable Seffens HOOKER LASTER, Rowan Primary Care Unavailable José Manuel, Neeru Attending Unavailable José Manuel, Neeru Referring Unavailable Seffens HOOKER LASTER, Rowan Referring Unavailable Bell, Michele Primary Care Unavailable José Manuel, Neeru Attending Unavailable Bell, Michele Referring Unavailable José Manuel, Neeru Attending Unavailable Bell, Michele Primary Care Unavailable Friend, Mike Attending Unavailable Bell, Michele Primary Care Unavailable Bell, Michele Primary Care Unavailable José Manuel, Neeru Attending Unavailable José Manuel, Neeru Referring Unavailable Bell, Michele Primary Care Unavailable José Manuel, Neeru Attending Unavailable Bell, Michele Referring Unavailable Bell, Michele Primary Care Unavailable José Manuel, Neeru Attending Unavailable Bell, Michele Referring Unavailable José Manuel, Neeru Attending Unavailable Bell, Michele Primary Care Unavailable Bell, Michele Referring Unavailable Antonieta HOOKER LASTER, Rowan Primary Care Unavailable Neeru Georges Attending Unavailable Antonieta HOOKER LASTER, Rowan Referring Unavailable Antonieta HOOKER LASTER, Rowan Primary Care Unavailable Neeru Georges Attending Unavailable Michele Bell Referring Unavailable FriendMike Attending Unavailable FriendMike Consulting Unavailable Michele Bell Primary Care Unavailable Friend, Mike Attending Unavailable Michele Bell Primary Care Unavailable Allergies Allergy Classification Reported Allergen(s) Allergy Type Date of Onset Reaction(s) Facility Adrenergic Agonists (1 source) EPINEPHrine Drug Allergy 023 Other: See Comments [facility] Doxycycline (1 source) Doxycycline Drug Allergy 010 GI Upset [facility] Work Phone: Lincosamides (antibiotic) (1 source) Clindamycin Drug Allergy [address] [facility] lubiprostone (1 source) lubiprostone Drug Allergy [address] [facility] Work Phone: nickel (1 source) nickel Drug Allergy [address] [facility] Nitroimidazoles (antibiotic) (1 source) metroNIDAZOLE Drug Allergy 012 GI Upset [facility] Work Phone: NSAIDs (1 source) Naproxen Drug Allergy 012 GI Upset [facility] Penicillins (antibiotic) (2 sources) Amoxicillin Drug Allergy 006 Rash, Hives [facility] Work Phone: Quinolones (antibiotic) (1 source) Ciprofloxacin Drug Allergy 020 GI Upset [facility] Work Phone: Sulfamethoxazole / Trimethoprim (1 source) Sulfamethoxazole / Trimethoprim Drug Allergy 022 Other: See Comments [facility] Sulfonamides (antibiotic) (1 source) Sulfonamides (Antibiotic) Drug Allergy 019 Other: See Comments [facility] (10 sources) doxycycline drug allergy [facility] Work Phone: (10 sources) metroNIDAZOLE drug allergy 017 votimiting / fever [facility] Work Phone: (10 sources) penicillin v drug allergy [facility] Work Phone: (10 sources) TRISH drug allergy 017 [facility] Work Phone: (20 sources) doxycycline; Translations: [DOXYCYCLINE] Drug Allergy 010 GI Upset, GI intolerance, Nausea And Vomiting, Other, Other (See Comments) [facility] Repository (20 sources) metroNIDAZOLE; Translations: [METRONIDAZOLE] Drug Allergy 012 GI intolerance, Nausea And Vomiting [facility] Repository (20 sources) Penicillins; Translations: [PENICILLINS] Propensity to adverse reactions to drug (disorder) 006 Hives, Rash, Other, Other (See Comments) [facility] Repository (20 sources) sulfamethoxazole / trimethoprim; Translations: [SULFAMETHOXAZOLE-T RIMETHOPRIM] Drug Allergy 017 Other: See Comments, Nausea And Vomiting [facility] Repository (20 sources) nickel sulfate; Translations: [NICKEL] Drug Allergy 017 [place], [place] (20 sources) Ciprofloxacin; Translations: [ciprofloxacin] Drug Allergy Vomiting (disorder) [facility] (20 sources) Penicillin; Translations: [penicillins] Drug Allergy [facility] (20 sources) Sulfamethoxazole / Trimethoprim; Translations: [sulfamethoxazole-t rimethoprim] Drug Allergy flu symptoms [facility] (20 sources) Sulfonamides (Antibiotic); Translations: [sulfa drugs] Drug allergy [facility] (20 sources) traMADol; Translations: [tramadol] Drug Allergy 012 Seizure (finding) [facility] (20 sources) Metal unspecified Allergy to substance Itching (finding), Eruption of skin (disorder), Bleeding (finding) [facility] (20 sources) Amoxicillin; Translations: [AMOXICILLIN] Drug Allergy [facility] Work Phone: (20 sources) Ciprofloxacin; Translations: [CIPROFLOXACIN HCL] Drug Allergy GI Upset [facility] Work Phone: (20 sources) Clindamycin; Translations: [CLINDAMYCIN] Drug Allergy Intolerance [facility] (20 sources) lubiprostone; Translations: [LUBIPROSTONE] Drug Allergy Rash [facility] Work Phone: (20 sources) metroNIDAZOLE; Translations: [METRONIDAZOLE HCL] Drug Allergy 012 GI Upset [facility] Work Phone: (20 sources) Naproxen; Translations: [NAPROXEN] Drug Allergy GI [facility] Work Phone: (20 sources) Sulfonamides (Antibiotic); Translations: [SULFA (SULFONAMIDE ANTIBIOTICS)] Drug Allergy Other: See Comments [facility] (20 sources) traMADol; Translations: [TRAMADOL HCL] Drug Allergy Other: See Comments [facility] Work Phone: (20 sources) fragrance mix [Other] Propensity to adverse reactions [facility] Work Phone: (20 sources) metal [Other] Propensity to adverse reactions [facility] (20 sources) Trish [Other] Propensity to adverse reactions [facility] (20 sources) OTHER; Translations: [OTHER] Propensity to adverse reactions (disorder) [facility] (20 sources) lubiprostone Drug Allergy [facility] (20 sources) EPINEPHrine; Translations: [EPINEPHRINE] Drug Allergy Other: See Comments [facility] Work Phone: (20 sources) nickel Drug Allergy [facility] Work Phone: (20 sources) Contact Metal Agent; Translations: [CONTACT METAL AGENT] Drug Intolerance [address] [facility] Work Phone: (2 sources) Spironolactone; Translations: [spironolactone] Drug Allergy Spasmodic movement (finding) [facility] (6 sources) EPINEPHrine Drug Allergy Other (See Comments) [facility] (6 sources) Silicone adhesive tape Propensity to adverse reactions to drug 006 Rash [facility] (1 source) Amoxicillin Drug Allergy [facility] Repository (1 source) Clindamycin Drug Allergy [facility] (1 source) Dicyclomine Drug Allergy [facility] (1 source) lubiprostone Drug Allergy [facility] (1 source) Naproxen Drug Allergy 025 [facility] (1 source) nickel Drug Allergy 025 [facility] (1 source) Sulfamethoxazole Drug Allergy [facility] (1 source) Trimethoprim Drug Allergy [facility] Repository Medications Current Medications Medication Drug Class(es) Dates Sig (Normalized) Sig (Original) 2 ML tralokinumab-ldrm 150 MG/ML Auto-Injector [Adbry] (4 sources) Start: 08-26-2024 Adbry Autoinjector 300 mg/2 mL subcutaneous solution 0 Refill(s) Start Date: 08/26/24 Status: Ordered Repeat number: 1 acyclovir 400 mg oral tablet (20 sources) Herpesvirus Nucleoside Analog DNA Polymerase Inhibitor, Herpes Simplex Virus Nucleoside Analog DNA Polymerase Inhibitor, Herpes Zoster Virus Nucleoside Analog DNA Polymerase Inhibitor Start: 11-25-2024 acyclovir 400 mg oral tablet Dose : 800 mg = 2 tab(s), Oral, qDay, # 200 tab(s), 1 Refill(s), Pharmacy: [facility], 152, cm, 11/25/24 13:32:00 EDT, Height, kg, 11/25/24 13:32:00 EDT, Dosing Weight Start Date: 11/25/24 Status: Ordered Medication Dispense Status: Completed Quantity: 200.0 Unit: tab(s) Total Allowed Fills: 2 Fills Dispensed: 0 Start: 07-26-2024 acyclovir 400 mg oral tablet Dose : 800 mg = 2 tab(s), Oral, qDay, # 200 tab(s), 1 Refill(s), Pharmacy: [facility], 152, cm, 07/26/24 12:06:00 EDT, Height, kg, 07/26/24 12:06:00 EDT, Dosing Weight Start Date: 07/26/24 Status: Ordered Quantity: 200.0 Unit: tab(s) Repeat number: 2 Start: 03-10-2021 End: 06-12-2023 take 2 tablets by mouth once daily acyclovir (ZOVIRAX) 400 mg tablet Indications: Genital herpes simplex, unspecified site Take 2 tablets by mouth once daily. 60 tablet 11 06/12/2023 Active Start: 01-17-2017 acyclovir 400 mg oral tablet Dose : 800 mg = 2 tab(s), Oral, qDay, # 200 tab(s), 1 Refill(s), Pharmacy: [facility], 152, cm, 05/08/24 11:56:00 EST, Height, kg, 05/08/24 11:56:00 EST, Dosing Weight Start Date: 05/08/24 Status: Ordered Quantity: 200.0 Unit: tab(s) Repeat number: 2 Comment on above: Take 2 tablets by [facility] once daily. TAKE 2 TABLETS BY [facility] DAILY ADBRY 300 MG/2ML SOAJ (6 sources) Start: 08-27-2024 ADBRY 300 MG/2ML SOAJ 08/27/2024 Active baclofen 10 mg oral tablet (20 sources) gamma-Aminobutyric Acid-ergic Agonist Start: 01-16-2017 baclofen (Lioresal) 10 MG tablet every 12 hours. 01/16/2017 Active End: 02-20-2023 take 1 tablet by mouth twice daily as needed baclofen 10 mg tablet 1 tablet as needed Orally Twice a day 0 02/20/2023 Discontinued Comment on above: 1 tablet as needed [facility] Twice a day betamethasone 0.5 mg/ml / clotrimazole 10 mg/ml topical cream (2 sources) Azole Antifungal, Corticosteroid Start: 10-25-2021 End: 11-01-2021 clotrimazole-betametha sone (LOTRISONE) cream Apply 1 application to affected area twice daily for 7 days. 15 g 0 10/25/2021 11/01/2021 Active Comment on above: Apply 1 application to affected area twice daily for 7 days. Biotin (8 sources) Start: 05-17-2024 biotin qDay, 0 Refill(s) Start Date: 05/17/24 Status: Ordered Medication Dispense Status: Completed Total Allowed Fills: 1 Fills Dispensed: 0 Start: 05-17-2024 biotin qDay, 0 Refill(s) Start Date: 05/17/24 Status: Ordered Repeat number: 1 bisacodyl 5 mg delayed release oral tablet (2 sources) Stimulant Laxative Start: 12-01-2022 End: 12-15-2022 take 1 tablet by mouth once daily for constipation bisacodyl EC (DULCOLAX, BISACODYL,) 5 mg EC tablet Take 1 tablet by mouth once daily for 14 days. for constipation. 14 tablet 0 12/01/2022 12/15/2022 Active Comment on above: Take 1 tablet by brad once daily for 14 days. for constipation. buprenorphine 0.7 mg / naloxone 0.18 mg sublingual tablet (20 sources) Partial Opioid Agonist, Opioid Antagonist Start: 09-18-2024 ZUBSOLV 0.7-0.[address] 1 tablet under the tongue and dissolve daily. Do not chew or swallow. 09/18/2024 Active Start: 03-14-2023 take 1 tablet under the tongue once daily Zubsolv 2.9 mg-0.[address] 2 (TWO) tablets UNDER THE TONGUE ONCE DAILY Start Date: 03/14/23 Status: Ordered Medication Dispense Status: Completed Total Allowed Fills: 1 Fills Dispensed: 0 Start: 11-09-2022 take 2 tablets under the tongue once daily ZUBSOLV 2.9-0.[address] 2 (TWO) TABLETS UNDER THE TONGUE EVERY DAY 01/04/2023 Active Comment on above: Place 2 (TWO) TABLET S UNDER THE TONGUE EVERY DAY calcium citrate 950 mg oral tablet (20 sources) Start: 11-25-2024 calcium (as calcium citrate) 200 mg oral tablet Dose : 950 mg = 1 tab(s), Oral, BID, # 200 tab(s), 1 Refill(s), Pharmacy: [facility], 152, cm, 11/25/24 13:32:00 EDT, Height, kg, 11/25/24 13:32:00 EDT, Dosing Weight Start Date: 11/25/24 Status: Ordered Medication Dispense Status: Completed Quantity: 200.0 Unit: tab(s) Total Allowed Fills: 2 Fills Dispensed: 0 Start: 10-14-2024 calcium citrat e 950 mg (200 mg elemental calcium) oral tablet Dose : 950 mg = 1 tab(s), Oral, BID, # 200 tab(s), 1 Refill(s), Pharmacy: [facility], 152, cm, 10/14/24 14:33:00 EDT, Height, kg, 10/14/24 14:33:00 EDT, Dosing Weight Start Date: 10/14/24 Status: Ordered Quantity: 200.0 Unit: tab(s) Repeat number: 2 Start: 09-14-2024 take 1 tablet by brad th twice daily calcium citrate (CALCITRATE) 950 (200 Ca) MG tablet Take 1 tablet by mouth 2 times daily 09/14/2024 Active Start: 07-26-2024 calcium citrat e 950 mg (200 mg elemental calcium) oral tablet Dose : 950 mg = 1 tab(s), Oral, BID, # 200 tab(s), 1 Refill(s), Pharmacy: [facility], 152, cm, 07/26/24 12:06:00 EDT, Height, kg, 07/26/24 12:06:00 EDT, Dosing Weight Start Date: 07/26/24 Status: Ordered Quantity: 200.0 Unit: tab(s) Repeat number: 2 Start: 07-08-2024 take 1 tablet by brad th twice daily calcium citrate (CALCITRATE) 250 MG TABS tablet Take 1 tablet by mouth 2 times daily 07/08/2024 Active Start: 02-26-2025 calcium citrat e 950 mg (200 mg elemental calcium) oral tablet Dose : 950 mg = 1 tab(s), Oral, BID, # 200 tab(s), 1 Refill(s), Pharmacy: [facility], 152, cm, 05/08/24 11:56:00 EST, Height, kg, 05/08/24 11:56:00 EST, Dosing Weight Start Date: 05/08/24 Status: Ordered Quantity: 200.0 Unit: tab(s) Repeat number: 2 Start: 12-26-2023 calcium citrat e 950 mg (200 mg elemental calcium) oral tablet Dose : 950 mg = 1 tab(s), Oral, BID, # 200 tab(s), 1 Refill(s), Pharmacy: [facility], 152, cm, 12/26/23 11:21:00 EDT, Height, kg, 12/26/23 11:21:00 EDT, Dosing Weight Start Date: 12/26/23 Status: Ordered Quantity: 200.0 Unit: tab(s) Repeat number: 2 Start: 09-27-2023 calcium citrat e 950 mg (200 mg elemental calcium) oral tablet Dose : 950 mg = 1 tab(s), Oral, BID, # 200 tab(s), 1 Refill(s), Pharmacy: [facility], 152.2, cm, 09/27/23 11:25:00 EDT, Height, kg, 09/27/23 11:25:00 EDT, Dosing Weight Start Date: 09/27/23 Status: Ordered cephalexin 500 mg oral capsule (4 sources) Cephalosporin Antibacterial Start: 03-29-2023 End: 04-05-2023 cephalexin 500 mg oral capsule Dose : 500 mg = 1 cap(s), Oral, q12h, X 7 day(s), # 14 cap(s), 0 Refill(s), 04/05/23 2:44:00 PM EST, Pharmacy: [facility], Dysuria, 152, cm, 03/29/23 13:45:00 EST, Height, 91.2, kg, 03/29/23 13:45:00 EST, Dosing Weight Start Date: 03/29/23 Stop Date: 04/05/23 Status: Ordered Start: 03-08-2022 End: 04-14-2022 cephalexin (Keflex) 250 MG c apsule Indications: Acne vulgaris Take 1 capsule BID 60 capsule 3 03/08/2022 04/14/2022 Discontinued (Therapy completed) chlorhexidine gluconate 1.2 mg/ml mouthwash (20 sources) chlorhexidine (P eridex) 0.12 % solution chlorhexidine gluconate 0.12 % mouthwash Active cholecalciferol 0.05 mg oral capsule (20 sources) Vitamin D vitamin D (GAURI CALCIFEROL) 50 MCG (2000 UT) CAPS capsule Active cholecalciferol (Vitamin D-3) 50 MCG (2000 UT) capsule Vitamin D3 50 mcg (2,000 unit) capsule Active cholecalciferol (Vitamin D-3) 50 MCG (1999 UT) capsule Vitamin D3 50 mcg (2,000 unit) capsule 0 Active clindamycin 10 mg/ml topical lotion (8 sources) Lincosamide Antibacterial Start: 09-14-2024 clindamycin (CLEOCIN T) 1 % lotion Apply to the affected areas once daily 09/14/2024 Active Start: 03-08-2022 End: 05-12-2022 clindamycin (Cleocin-T) 1 % lotion Indications: Acne vulgaris Apply topically to affected areas BID 60 mL 3 03/08/2022 05/12/2022 Discontinued (Therapy completed) clobetasol propionate 0.5 mg/ml topical solution (20 sources) Corticosteroid Start: 08-30-2024 clobetasol (TE MOVATE) 0.05 % external solution APPLY TO THE AFFECTED AREA ON THE SCALP TWICE DAILY FOR 14 DAYS, then NEEDED FOR FLARES 08/30/2024 Active Start: 07-11-2023 clobetasol (Te movate) 0.05 % external solution Indications: Seborrheic dermatitis Apply to affected areas on scalp BID x 6 weeks Stop using when clear. Repeat as needed for flares. Do not use on face, armpits, groin. 50 mL 11 07/11/2023 Active Start: 01-16-2023 clobetasol (TE MOVATE) 0.05 % ointment Apply to vulva BID for 30 days then once daily for 30 days then every other day for 30 days 60 g 2 08/21/2023 Active Start: 03-08-2022 clobetasol (Te movate) 0.05 % external solution Indications: Seborrheic dermatitis Apply to affected areas on scalp BID x 6 weeks Stop using when clear. Repeat as needed for flares. Do not use on face, armpits, groin. 50 mL 11 03/08/2022 Active cloNIDine hydrochloride 0.1 mg oral tablet (20 sources) Central alpha-2 Adrenergic Agonist Start: 11-25-2024 cloNIDine 0.1 mg ora l tablet Dose : 0.1 mg = 1 tab(s), Oral, qHS, hold if BP less [id number], # 100 tab(s), 0 Refill(s), Pharmacy: [facility], 152, cm, 11/25/24 13:32:00 EDT, Height, kg, 11/25/24 13:32:00 EDT, Dosing Weight Start Date: 11/25/24 Status: Ordered Medication Dispense Status: Completed Quantity: 100.0 Unit: tab(s) Total Allowed Fills: 1 Fills Dispensed: 0 Start: 10-09-2024 cloNIDine 0.1 mg oral tablet Dose : 0.1 mg = 1 tab(s), Oral, qHS, hold if BP less [id number], # 100 tab(s), 0 Refill(s), Pharmacy: [facility], 152, cm, 08/26/24 13:50:00 EDT, Height, kg, 09/24/24 15:51:00 EDT, Dosing Weight Start Date: 10/09/24 Status: Ordered Quantity: 100.0 Unit: tab(s) Repeat number: 1 Start: 10-03-2016 End: 03-15-2023 cloNIDine 0.1 mg oral tablet Dose : 0.1 mg = 1 tab(s), Oral, qHS, hold if BP less [id number], # 100 tab(s), 0 Refill(s), Pharmacy: [facility], 152, cm, 05/17/24 16:13:00 EST, Height, kg, 05/17/24 16:13:00 EST, Dosing Weight Start Date: 06/24/24 Status: Ordered Quantity: 100.0 Unit: tab(s) Repeat number: 1 Comment on above: (Prior Auth#:[id number]) cycloSPORINE 0.5 mg/ml ophthalmic suspension (6 sources) Calcineurin Inhibitor Immunosuppressant Start: 09-16-2024 RESTASIS 0.05 % ophthalmic emulsion 09/16/2024 Active daridorexant 25 MG Oral Tablet [Quviviq] (7 sources) Start: 10-14-2024 End: 11-13-2024 Quviviq 25 mg oral tablet Dose : 25 mg = 1 tab(s), Oral, qDay, # 30 tab(s), 0 Refill(s), Pharmacy: [facility], Insomnia, 152, cm, 10/14/24 14:33:00 EDT, Height, kg, 10/14/24 14:33:00 EDT, Dosing Weight Start Date: 10/14/24 Stop Date: 11/13/24 Status: Ordered Quantity: 30.0 Unit: tab(s) Repeat number: 1 Indications: Insomnia, unspecified; Start: 07-03-2024 End: 08-02-2024 Quviviq 25 mg oral tablet Do se : 25 mg = 1 tab(s), Oral, qDay, # 30 tab(s), 0 Refill(s), Pharmacy: [facility], Insomnia, 152, cm, 07/03/24 11:26:00 EDT, Height, kg, 07/03/24 11:26:00 EDT, Dosing Weight Start Date: 07/03/24 Stop Date: 08/02/24 Status: Ordered Quantity: 30.0 Unit: tab(s) Repeat number: 1 Indications: Insomnia, unspecified; DME MISCellaneous (20 sources) Start: 04-17-2023 DME MISCellane ous See Instructions, Knee-high compression stockings - Firm (20-30 mmHg).., # 1 EA, 0 Refill(s), Pharmacy: [facility], Disorder of thyroid Water retention, 152, cm, 04/17/23 15:12:00 EST, Height, 88.5, kg, 04/17/23 15:12:00 EST, Dosing Weight Start Date: 04/17/23 Status: Ordered Start: 04-17-2023 DME MISCellane ous See Instructions, Knee-high compression stockings - Medium (15-20 mmHg).., # 1 EA, 0 Refill(s), Pharmacy: [facility], Disorder of thyroid Water retention, 152, cm, 04/17/23 15:12:00 EST, Height, 88.5, kg, 04/17/23 15:12:00 EST, Dosing Weight Start Date: 04/17/23 Status: Ordered Start: 12-07-2022 DME MISCellane ous See Instructions, Thigh-high compression stockings - Medium (15-20 mmHg).., # 1 EA, 0 Refill(s), Pharmacy: [facility], 152, cm, 12/07/22 14:14:00 EDT, Height, 89.8, kg, 12/07/22 14:14:00 EDT, Dosing Weight Start Date: 12/07/22 Status: Ordered Start: 12-07-2022 DME MISCellane ous See Instructions, Thigh-high compression stockings - Firm (20-30 mmHg).., # 1 EA, 0 Refill(s), Pharmacy: [facility], 152, cm, 12/07/22 14:14:00 EDT, Height, 89.8, kg, 12/07/22 14:14:00 EDT, Dosing Weight Start Date: 12/07/22 Status: Ordered Start: 09-19-2022 DME MISCellane ous See Instructions, Knee-high compression stockings - Medium (15-20 mmHg).., # 1 EA, 0 Refill(s), Pharmacy: [facility], Bilateral lower extremity edema, 151.5, cm, 09/19/22 15:46:00 EDT, Height, 88.4 Start Date: 09/19/22 Status: Ordered Medication Dispense Status: Completed Quantity: 1.0 Unit: EA Total Allowed Fills: 1 Fills Dispensed: 0 Indications: Localized edema; Start: 09-19-2022 DME MISCellane ous See Instructions, Knee-high compression stockings - Mild (8-15 mmHg), # 1 EA, 0 Refill(s), Pharmacy: [facility], Bilateral lower extremity edema, 151.5, cm, 09/19/22 15:46:00 EDT, Height, 88.4 Start Date: 09/19/22 Status: Ordered Medication Dispense Status: Completed Quantity: 1.0 Unit: EA Total Allowed Fills: 1 Fills Dispensed: 0 Indications: Localized edema; Start: 09-19-2022 DME MISCellane ous See Instructions, Knee-high compression stockings - Medium (15-20 mmHg).., # 1 EA, 0 Refill(s), Pharmacy: [facility], Bilateral lower extremity edema, 151.5, cm, 09/19/22 15:46:00 EDT, Height, 88.4 Start Date: 09/19/22 Status: Ordered Quantity: 1.0 Unit: EA Repeat number: 1 Indications: Localized edema; Start: 09-19-2022 DME MISCellane ous See Instructions, Knee-high compression stockings - Mild (8-15 mmHg), # 1 EA, 0 Refill(s), Pharmacy: [facility], Bilateral lower extremity edema, 151.5, cm, 09/19/22 15:46:00 EDT, Height, 88.4 Start Date: 09/19/22 Status: Ordered Quantity: 1.0 Unit: EA Repeat number: 1 Indications: Localized edema; Start: 09-19-2022 DME MISCellane ous See Instructions, Knee-high compression stockings - Medium (15-20 mmHg).., # 1 EA, 0 Refill(s), Pharmacy: [facility], Bilateral lower extremity edema, 151.5, cm, 09/19/22 15:46:00 EDT, Height, 88.4 Start Date: 09/19/22 Status: Ordered Quantity: 1.0 Unit: EA Repeat number: 1 Indication: Localized edema Start: 09-19-2022 DME MISCellane ous See Instructions, Knee-high compression stockings - Mild (8-15 mmHg), # 1 EA, 0 Refill(s), Pharmacy: [facility], Bilateral lower extremity edema, 151.5, cm, 09/19/22 15:46:00 EDT, Height, 88.4 Start Date: 09/19/22 Status: Ordered Quantity: 1.0 Unit: EA Repeat number: 1 Indication: Localized edema Start: 09-19-2022 DME MISCellane ous See Instructions, Knee-high compression stockings - Medium (15-20 mmHg).., # 1 EA, 0 Refill(s), Pharmacy: [facility], Bilateral lower extremity edema, 151.5, cm, 09/19/22 15:46:00 EDT, Height, 88.4 Start Date: 09/19/22 Status: Ordered Start: 09-19-2022 DME MISCellane ous See Instructions, Knee-high compression stockings - Mild (8-15 mmHg), # 1 EA, 0 Refill(s), Pharmacy: [facility], Bilateral lower extremity edema, 151.5, cm, 09/19/22 15:46:00 EDT, Height, 88.4 Start Date: 09/19/22 Status: Ordered drospirenone 3 mg / ethinyl estradiol 0.02 mg oral tablet (19 sources) Progestin, Estrogen Start: 08-02-2023 End: 08-01-2024 drospirenone-ethinyl estradiol (ALETHA) 3-0.02 MG tablet Indications: Acne vulgaris Take 1 tablet by mouth daily. 28 tablet 12 08/02/2023 08/01/2024 Active 2 ml dupilumab 150 mg/ml auto-injector (11 sources) Interleukin-4 Receptor alpha Antagonist Start: 04-27-2023 inject 1 dose by subcutaneous injection every other week Dupixent Pre-filled Pen 300 mg/2 mL subcutaneous solution Dose : 300 mg =, Subcutaneous, q2wk, rotate injection sites, # 4 mL, 0 Refill(s) Start Date: 04/27/23 Status: Ordered Start: 03-22-2023 End: 08-02-2023 inject 600 mg by subcutaneous injection once, then inject 300 mg by subcutaneous injection every other week dupilumab (Dupixent) 300 MG/2ML injection Inject 600mg under the skin once then 300mg every other week 4 mL 5 03/22/2023 08/02/2023 Discontinued (Ineffective) ethinyl estradiol 0.02 mg / ferrous fumarate 75 mg / norethindrone 1 mg oral tablet (20 sources) Estrogen Start: 11-25-2024 Myra Fe 04/01 (28 Day) oral tablet Dose = 1 tab(s), Oral, qDay, take 21 days of active tablets then skip placebos and start the next pack, # 84 tab(s), 4 Refill(s), Pharmacy: [facility], 152, cm, 11/25/24 13:32:00 EDT, Height, kg, 11/25/24 13:32:00 EDT, Dosing Weight Start Date: 11/25/24 Status: Ordered Medication Dispense Status: Completed Quantity: 84.0 Unit: tab(s) Total Allowed Fills: 5 Fills Dispensed: 0 Start: 07-26-2024 take 1 tablet by brad th once daily Myra FE 1/20 oral tablet Dose = 1 tab(s), Oral, qDay, # 84 tab(s), 4 Refill(s), Pharmacy: [facility], 152, cm, 07/26/24 12:06:00 EDT, Height, kg, 07/26/24 12:06:00 EDT, Dosing Weight Start Date: 07/26/24 Status: Ordered Quantity: 84.0 Unit: tab(s) Repeat number: 5 Start: 05-13-2024 take 1 tablet by brad th once daily MYRA FE 1/20, 28, 1 mg-20 mcg (21)/75 mg (7) per tablet Indications: Surveillance for control, oral contraceptives Take 1 tablet by mouth once daily. Take active pills only - skip placebo pills. 112 tablet 3 05/13/2024 Active Start: 05-08-2024 take 1 tablet by brad th once daily Myra FE 1/20 oral tablet Dose = 1 tab(s), Oral, qDay, # 84 tab(s), 4 Refill(s), Pharmacy: [facility], 152, cm, 05/08/24 11:56:00 EST, Height, kg, 05/08/24 11:56:00 EST, Dosing Weight Start Date: 05/08/24 Status: Ordered Quantity: 84.0 Unit: tab(s) Repeat number: 5 Start: 01-23-2024 take 1 tablet by brad th once daily Myra FE 1/20 oral tablet Dose = 1 tab(s), Oral, qDay, # 84 tab(s), 4 Refill(s), Pharmacy: [facility], 152, cm, 01/23/24 11:53:00 EST, Height, kg, 01/23/24 11:40:00 EST, Dosing Weight Start Date: 01/23/24 Status: Ordered Quantity: 84.0 Unit: tab(s) Repeat number: 5 Start: 09-27-2023 take 1 tablet by brad th once daily Myra FE 1/20 oral tablet Dose = 1 tab(s), Oral, qDay, # 84 tab(s), 4 Refill(s), Pharmacy: [facility], 152.2, cm, 09/27/23 11:25:00 EDT, Height, kg, 09/27/23 11:25:00 EDT, Dosing Weight Start Date: 09/27/23 Status: Ordered Start: 06-12-2023 End: 05-13-2024 take 1 tablet by mouth once daily MYRA FE 1/20, 28, 1 mg-20 mcg (21)/75 mg (7) per tablet Indications: Surveillance for control, oral contraceptives Take 1 tablet by mouth once daily. Take active pills only - skip placebo pills. 84 tablet 3 06/12/2023 05/13/2024 Discontinued Start: 06-12-2023 take 1 tablet by brad th once daily MYRA FE 1/20, 28, 1 mg-20 mcg (21)/75 mg (7) per tablet Indications: Surveillance for control, oral contraceptives Take 1 tablet by mouth once daily. Take active pills only - skip placebo pills. 84 tablet 3 06/12/2023 Active Start: 12-30-2022 End: 06-12-2023 take 1 tablet by mouth once daily MYRA FE 1/20, 28, 1 mg-20 mcg (21)/75 mg (7) per tablet Indications: Surveillance for control, oral contraceptives Take 1 tablet by mouth once daily. Take active pills only - skip placebo pills. 84 tablet 1 12/30/2022 06/12/2023 Discontinued Start: 12-30-2022 take 1 tablet by brad th once daily MYRA FE 1/20, 28, 1 mg-20 mcg (21)/75 mg (7) per tablet Indications: Surveillance for control, oral contraceptives Take 1 tablet by mouth once daily. Take active pills only - skip placebo pills. 84 tablet 1 12/30/2022 Active Start: 04-04-2022 End: 12-29-2022 take 1 tablet by mouth once daily MYRA FE 1/20, 28, 1 mg-20 mcg (21)/75 mg (7) per tablet Indications: Surveillance for control, oral contraceptives Take 1 tablet by mouth once daily. 28 tablet 11 04/04/2022 12/29/2022 Discontinued Start: 04-04-2022 take 1 tablet by brad th once daily MYRA FE 1/20, 28, 1 mg-20 mcg (21)/75 mg (7) per tablet Indications: Surveillance for control, oral contraceptives Take 1 tablet by mouth once daily. 28 tablet 11 04/04/2022 Active Start: 03-02-2022 take 1 tablet by brad th once daily MYRA FE 1/20, 28, 1 mg-20 mcg (21)/75 mg (7) per tablet Indications: Surveillance for control, oral contraceptives Take 1 tablet by mouth once daily. 28 tablet 0 03/02/2022 Active Start: 03-04-2021 End: 03-02-2022 take 1 tablet by mouth once daily MYRA FE 1/20, 28, 1 mg-20 mcg (21)/75 mg (7) per tablet Indications: Surveillance for control, oral contraceptives Take 1 tablet by mouth once daily. 28 tablet 11 03/04/2021 03/02/2022 Discontinued Start: 03-04-2021 take 1 tablet by brad th once daily MYRA FE 1/20, 28, 1 mg-20 mcg (21)/75 mg (7) per tablet Indications: Surveillance for control, oral contraceptives Take 1 tablet by mouth once daily. 28 tablet 11 03/04/2021 Active Start: 02-05-2020 Myra FE 1/20 oral tablet 0 Refill(s) Start Date: 02/05/20 Status: Ordered End: 08-02-2023 norethindrone-ethinyl estrad iol (04/01) 1-20 MG-MCG tablet (Prior Auth#:[id number]) 0 08/02/2023 Discontinued (Ineffective) norethindrone-et hinyl estradiol (04/01) 1-20 MG-MCG tablet (Prior Auth#:[id number]) 0 Active norethindrone-et hinyl estradiol (Myra Fe 04/01) 1-20 MG-MCG tablet (Prior Auth#:[id number]) 0 Active Comment on above: Take 1 tablet by brad th once daily. Take 1 tablet by brad th once daily. Take active pills only - skip placebo pills. ezetimibe 10 mg oral tablet (20 sources) Dietary Cholesterol Absorption Inhibitor Start: 11-25-2024 ezetimibe 10 mg oral tablet Dose : 10 mg = 1 tab(s), Oral, qDay, # 100 tab(s), 1 Refill(s), Pharmacy: [facility], 152, cm, 11/25/24 13:32:00 EDT, Height, kg, 11/25/24 13:32:00 EDT, Dosing Weight Start Date: 11/25/24 Status: Ordered Medication Dispense Status: Completed Quantity: 100.0 Unit: tab(s) Total Allowed Fills: 2 Fills Dispensed: 0 Start: 08-13-2024 take 1 tablet by brad once daily ezetimibe (ZETIA) 10 MG tablet Take 1 tablet by mouth daily 08/13/2024 Active Start: 02-11-2022 End: 10-28-2023 ezetimibe 10 mg oral tablet Dose : 10 mg = 1 tab(s), Oral, qDay, # 100 tab(s), 1 Refill(s), Pharmacy: [facility], 152, cm, 07/26/24 12:06:00 EDT, Height, kg, 07/26/24 12:06:00 EDT, Dosing Weight Start Date: 07/26/24 Status: Ordered Quantity: 100.0 Unit: tab(s) Repeat number: 2 Comment on above: Take 10 mg by mouth once daily. ferrous sulfate 325 mg oral tablet (9 sources) Start: 11-25-2024 IRON (ferrous sulfate 325 mg) 65 mg oral tablet Dose : 325 mg = 1 tab(s), Oral, BIDM, Take with food., # 60 tab(s), 1 Refill(s), Pharmacy: [facility], 152, cm, 11/25/24 13:32:00 EDT, Height, kg, 11/25/24 13:32:00 EDT, Dosing Weight Start Date: 11/25/24 Status: Ordered Medication Dispense Status: Completed Quantity: 60.0 Unit: tab(s) Total Allowed Fills: 2 Fills Dispensed: 0 Start: 10-14-2024 IRON (ferrous sulfate 325 mg) 65 mg oral tablet Dose : 325 mg = 1 tab(s), Oral, BIDM, Take with food., # 60 tab(s), 1 Refill(s), Pharmacy: [facility], 152, cm, 10/14/24 14:33:00 EDT, Height, kg, 10/14/24 14:33:00 EDT, Dosing Weight Start Date: 10/14/24 Status: Ordered Quantity: 60.0 Unit: tab(s) Repeat number: 2 Start: 09-02-2024 take 1 tablet by brad th twice daily at mealtime FEROSUL 325 (65 Fe) MG tablet Take 1 tablet by mouth 2 times daily (with meals) 09/02/2024 Active Start: 09-02-2024 IRON (ferrous sulfate 325 mg) 65 mg oral tablet Dose : 325 mg = 1 tab(s), Oral, BIDM, Take with food., # 60 tab(s), 1 Refill(s), Pharmacy: [facility], 152, cm, 08/26/24 13:50:00 EDT, Height, kg, 08/26/24 13:50:00 EDT, Dosing Weight Start Date: 09/02/24 Status: Ordered Quantity: 60.0 Unit: tab(s) Repeat number: 2 fluconazole 150 mg oral tablet (4 sources) Azole Antifungal Start: 05-14-2024 fluconazole ( DIFLUCAN) 150 mg tablet Take 1 tablet today, then a 2nd tablet in 72 hours, and 3rd tablet in another 72 hours. 3 tablet 05/14/2024 Active Start: 10-14-2021 End: 10-14-2021 take 1 tablet by mouth once fluconazole (DIFLUCAN) 150 mg tablet Take 1 tablet by mouth one time only for 1 dose. 1 tablet 0 10/14/2021 10/14/2021 Active Comment on above: Take 1 tablet by brad th one time only for 1 dose. fluocinolone acetonide 0.1 mg/ml topical oil (19 sources) Corticosteroid Start: 07-12-2023 Fluocinolone Acetonide Scalp ([place]-Smoothe/FS Scalp) 0.01 % oil Indications: Seborrheic dermatitis Massage into scalp once daily as needed for itching 120 mL 3 07/12/2023 Active gabapentin 600 mg oral tablet (20 sources) Anti-epileptic Agent Start: 03-07-2022 End: 04-07-2022 gabapentin (Neurontin) 600 MG tablet 03/07/2022 Active Start: 04-11-2016 NEURONTIN 300 MG CAPS GABAPENTIN [id number] [place] N Santizo Start: 04-11-2016 NEURONTIN 300 MG CAPS GABAPENTIN [id number] [place] N Santizo take 1 tablet by brad th four times daily gabapentin (NEURONTIN) 600 MG tablet Indications: geting off the streets to replace the Lyrica that had been stopped. This was not prescribed by a physician. Take 600 mg by mouth 4 times daily. Indications: geting off the streets to replace the Lyrica that had been stopped. This was not prescribed by a physician. 0 Active Comment on above: Take 600 mg by mouth three times daily. hydroCHLOROthiazide 25 mg oral tablet (20 sources) Thiazide Diuretic Start: End: hydroCHLOROthiazide 25 mg oral tablet Dose : 25 mg = 1 tab(s), Oral, BID, Take at 8am and 2pm, # 180 tab(s), 0 Refill(s), Pharmacy: [facility], 152, cm, 11/25/24 13:32:00 EDT, Height, kg, 11/25/24 13:32:00 EDT, Dosing Weight Start Date: 11/25/24 Stop Date: 02/23/25 Status: Ordered Medication Dispense Status: Completed Quantity: 180.0 Unit: tab(s) Total Allowed Fills: 1 Fills Dispensed: 0 Start: 12-26-2023 End: 03-25-2024 hydroCHLOROthiazide 25 mg or al tablet Dose : 25 mg = 1 tab(s), Oral, BID, Take at 8am and 2pm, # 180 tab(s), 0 Refill(s), Pharmacy: [facility], 152, cm, 12/26/23 11:21:00 EDT, Height, kg, 12/26/23 11:21:00 EDT, Dosing Weight Start Date: 12/26/23 Stop Date: 03/25/24 Status: Ordered Quantity: 180.0 Unit: tab(s) Repeat number: 1 Start: 09-27-2023 hydroCHLOROthi azide 25 mg oral tablet Dose : 25 mg = 1 tab(s), Oral, BID, Take at 8am and 2pm, # 200 tab(s), 0 Refill(s), Pharmacy: [facility], 152.2, cm, 09/27/23 11:25:00 EDT, Height, kg, 09/27/23 11:25:00 EDT, Dosing Weight Start Date: 09/27/23 Status: Ordered Start: 02-23-2023 hydroCHLOROthi azide 25 mg oral tablet Dose : 25 mg = 1 tab(s), Oral, BID, 8am and 2pm, short term supply in lieu of provider absence, # 180 tab(s), 0 Refill(s), Pharmacy: [facility], 152, cm, 02/10/23 13:06:00 EST, Height, kg, 02/10/23 13:06:00 EST, Dosing Weight Start Date: 02/23/23 Status: Ordered Start: 08-22-2022 take 1 capsule by mo uth once daily hydroCHLOROthiazide 12.5 mg capsule Take 12.5 mg by mouth once daily. 08/22/2022 Active Comment on above: Take 12.5 mg by mout h once daily. hydrocortisone 25 mg/ml topical cream (20 sources) Corticosteroid Start: 11-10-2022 hydrocortisone 2.5 % cream Indications: Folliculitis Apply to affected areas on mons pubis BID x 7 days. Stop using when clear. Repeat as needed for flares. 28 g 2 11/10/2022 Active hydrOXYzine hydrochloride 50 mg oral tablet (20 sources) Antihistamine Start: 04-11-2016 End: 01-10-2022 VISTARIL 25 MG CAPS HYDROXYZINE PAMOATE [id number] [place] Santizo Start: 02-22-2016 End: 02-23-2025 hydrOXYzine hydrochloride 50 mg oral tablet Dose : 150 mg = 3 tab(s), Oral, qHS, May not roller picker, seems to have stopped or decreased on 11/2024, # 90 tab(s), 0 Refill(s), Pharmacy: [facility], 152, cm, 11/25/24 13:32:00 EDT, Height, kg, 11/25/24 13:32:00 EDT, Dosing Weight Start Date: 11/25/24 Stop Date: 02/23/25 Status: Ordered Medication Dispense Status: Completed Quantity: 90.0 Unit: tab(s) Total Allowed Fills: 1 Fills Dispensed: 0 Comment on above: Take 25 mg by mouth three times daily as needed. TAKE 1 TO 2 TABLETS FOUR TIMES DAILY NEEDED FOR ANXIETY ibuprofen 600 mg oral tablet (20 sources) Nonsteroidal Anti-inflammatory Drug Start: 10-23-2023 take 1 tablet by mouth every six hours as needed for pain ibuprofen (MOTRIN) 600 mg tablet Indications: pain Take 1 tablet by mouth every 6 hours. May change to as needed when pain manageable 60 tablet 1 10/23/2023 Active Start: 01-18-2017 End: 07-18-2021 take 1 tablet by mouth every six hours as needed for pain ibuprofen (MOTRIN) 600 mg tablet Indications: pain Take 1 tablet by mouth every 6 hours. May change to as needed when pain manageable 60 tablet 1 10/23/2023 Active take 1 tablet by brad th every eight hours as needed for pain ibuprofen (ADVIL;MOTRIN) 600 MG tablet Take 1 tablet by mouth every 8 hours as needed for Pain Active Comment on above: Take 1 tablet by brad th every 6 hours as needed. FOR PAIN. imiquimod 50 mg/ml topical cream (20 sources) Start: 06-12-2023 imiquimod (ALDARA) 5 % cream Indications: Genital warts , Chronic pruritus Apply to affected area Monday, Monday, and Monday. 8 Each 2 06/12/2023 Active Comment on above: Apply to affected ar ea Monday, Monday, and Monday. Claravis (20 sources) Retinoid Start: 12-26-2023 Claravis Oral, BID, 0 Refill(s) Start Date: 12/26/23 Status: Ordered Repeat number: 1 Start: 12-26-2023 Claravis Oral, BID, 0 Refill(s) Start Date: 12/26/23 Status: Ordered Start: 11-15-2023 End: 02-21-2024 take 1 capsule by mouth twice daily at mealtime ISOtretinoin (Accutane) 40 MG capsule Indications: Acne vulgaris Take 1 capsule (40 mg) by mouth 2 times daily (with meals). 60 capsule 01/22/2024 01/23/2024 Discontinued (Other) Start: 03-16-2023 End: 08-02-2023 take 1 capsule by mouth at mealtime ISOtretinoin (Accutane) 40 MG capsule Indications: Acne vulgaris , Encounter for long-term current use of high risk medication Take 1 capsule by mouth in the morning and evening with food. 60 capsule 0 03/16/2023 08/02/2023 Discontinued (Therapy completed) Start: 05-26-2022 End: 12-26-2022 ISOtretinoin (Accutane) 40 M G capsule Indications: Acne vulgaris Take 1 capsule BID ipledge#[id number] 60 capsule 0 05/26/2022 12/26/2022 Discontinued (Ineffective) Start: 04-27-2022 ISOtretinoin ( Accutane) 40 MG capsule Indications: Acne vulgaris Take 1 capsule BID ipledge#[id number] 60 capsule 0 04/27/2022 Active Start: 04-13-2022 ISOtretinoin ( Accutane) 40 MG capsule Indications: Acne vulgaris Take 1 capsule BID ipledge#[id number] 60 capsule 0 04/13/2022 Active ketoconazole 20 mg/ml medicated shampoo (20 sources) Azole Antifungal Start: 09-14-2024 ketoconazole (NIZORAL) 2 % shampoo Lather and let sit 3-5 minutes before rinsing 2-3 times a week. 09/14/2024 Active Start: 05-08-2024 ketoconazole 2 % topical shampoo 0 Refill(s), 78.8 Start Date: 05/08/24 Status: Ordered Medication Dispense Status: Completed Total Allowed Fills: 1 Fills Dispensed: 0 Start: 07-12-2023 ketoconazole ( NIZOral) 2 % shampoo Indications: Seborrheic dermatitis Use to wash the scalp 3 to 4 times weekly allowing to sit 3 minutes before rinsing. May use regular shampoo and condition after. 120 mL 3 07/12/2023 Active lactulose 667 mg/ml oral solution (20 sources) Osmotic Laxative Start: 05-08-2024 take 45 mL by mouth three times daily for constipation lactulose 10 g/15 mL oral syrup Take 45mL (30g) by mouth three times a day for constipation Start Date: 05/08/24 Status: Ordered Medication Dispense Status: Completed Total Allowed Fills: 1 Fills Dispensed: 0 lactulose (CONST ULOSE) 10 GM/15ML solution Active Myra FE 04/01 oral tablet (5 sources) Start: 02-05-2020 Myra FE 04/01 oral tablet 0 Refill(s) Start Date: 02/05/20 Status: Ordered lidocaine 25 mg/ml / prilocaine 25 mg/ml topical cream (20 sources) Antiarrhythmic, Amide Local Anesthetic Start: 08-21-2023 lidocaine-prilocai ne (EMLA) 2.5-2.5 % cream Apply to affected area as needed. Apply to vulva 30 min prior to appointment 30 g 3 08/21/2023 Active lubiprostone 0.024 mg oral capsule (20 sources) Chloride Channel Activator End: 02-20-2023 lubiprostone (Amitiza) 24 MCG capsule Amitiza 24 mcg capsule Active Magnesium and Potassium oral capsule (8 sources) Start: 07-26-2024 take 1 capsule by mouth twice daily Magnesium and Potassium oral capsule Dose = 1 cap(s), Oral, BID, # 200 cap(s), 1 Refill(s), Pharmacy: [facility], 152, cm, 07/26/24 12:06:00 EDT, Height, kg, 07/26/24 12:06:00 EDT, Dosing Weight Start Date: 07/26/24 Status: Ordered Quantity: 200.0 Unit: cap(s) Repeat number: 2 Start: 11-14-2023 take 1 capsule by [facility] twice daily Magnesium and Potassium oral capsule Dose = 1 cap(s), Oral, BID, # 60 cap(s), 3 Refill(s), Pharmacy: [facility], 152, cm, 11/14/23 14:47:00 EDT, Height, kg, 11/14/23 14:47:00 EDT, Dosing Weight Start Date: 11/14/23 Status: Ordered Quantity: 60.0 Unit: cap(s) Repeat number: 4 Start: 11-14-2023 take 1 capsule by [facility] twice daily Magnesium and Potassium oral capsule Dose = 1 cap(s), Oral, BID, # 60 cap(s), 3 Refill(s), Pharmacy: [facility], 152, cm, 11/14/23 14:47:00 EDT, Height, kg, 11/14/23 14:47:00 EDT, Dosing Weight Start Date: 11/14/23 Status: Ordered magnesium citrate 125 mg ora l capsule (6 sources) Start: 10-14-2024 magnesium citr ate 125 mg oral capsule Dose : 250 mg = 2 cap(s), Oral, BID, Please call our office if you cannot refill 10/14/24, # 120 cap(s), 0 Refill(s), Pharmacy: [facility], 152, cm, 10/14/24 14:33:00 EDT, Height, kg, 10/14/24 14:33:00 EDT, Dosing Weight Start Date: 10/14/24 Status: Ordered Quantity: 120.0 Unit: cap(s) Repeat number: 1 Start: 09-02-2024 magnesium citr ate 125 mg oral capsule Dose : 250 mg = 2 cap(s), Oral, BID, # 120 cap(s), 0 Refill(s), Pharmacy: [facility], 152, cm, 08/26/24 13:50:00 EDT, Height, kg, 08/26/24 13:50:00 EDT, Dosing Weight Start Date: 09/02/24 Status: Ordered Quantity: 120.0 Unit: cap(s) Repeat number: 1 Start: 07-26-2024 magnesium citr ate 125 mg oral capsule Dose : 250 mg = 2 cap(s), Oral, qDay, # 120 cap(s), 0 Refill(s), Pharmacy: [facility], Hypomagnesemia, 152, cm, 07/26/24 12:06:00 EDT, Height, kg, 07/26/24 12:06:00 EDT, Dosing Weight Start Date: 07/26/24 Status: Ordered Quantity: 120.0 Unit: cap(s) Repeat number: 1 Indications: Hypomagnesemia; Start: 05-17-2024 magnesium citr ate 125 mg oral capsule Dose : 250 mg = 2 cap(s), Oral, qDay, # 120 cap(s), 0 Refill(s), Pharmacy: [facility], Hypomagnesemia, 152, cm, 05/17/24 16:13:00 EST, Height, kg, 05/17/24 16:13:00 EST, Dosing Weight Start Date: 05/17/24 Status: Ordered Quantity: 120.0 Unit: cap(s) Repeat number: 1 Indications: Hypomagnesemia; magnesium gluconate 500 mg oral tablet (1 source) Start: 11-25-2024 magnesium gluc david 500 mg oral tablet Dose : 500 mg = 1 tab(s), Oral, BID, # 60 tab(s), 1 Refill(s), Pharmacy: [facility], 152, cm, 11/25/24 13:32:00 EDT, Height, kg, 11/25/24 13:32:00 EDT, Dosing Weight Start Date: 11/25/24 Status: Ordered Medication Dispense Status: Completed Quantity: 60.0 Unit: tab(s) Total Allowed Fills: 2 Fills Dispensed: 0 Magnesium glycinate (1 source) Start: 10-14-2024 magnesium glyc inate 200 mg oral tablet Dose : 400 mg = 2 tab(s), Oral, BID, Disregard previous prescriptions, updated 10/14/2024 D/ C citrate, # 120 tab(s), 1 Refill(s), Pharmacy: [facility], 152, cm, 10/14/24 14:33:00 EDT, Height, kg, 10/14/24 14:33:00 EDT, Dosing Weight Start Date: 10/14/24 Status: Ordered Quantity: 120.0 Unit: tab(s) Repeat number: 2 metFORMIN hydrochloride 500 mg oral tablet (20 sources) Biguanide Start: 11-25-2024 MetFORMIN (Eqv -Glucophage XR) 500 mg oral tablet, EXTENDED RELEASE Dose : 1,000 mg = 2 tab(s), Oral, BID, # 400 tab(s), 0 Refill(s), Pharmacy: [facility], 152, cm, 11/25/24 13:32:00 EDT, Height, kg, 11/25/24 13:32:00 EDT, Dosing Weight Start Date: 11/25/24 Status: Ordered Medication Dispense Status: Completed Quantity: 400.0 Unit: tab(s) Total Allowed Fills: 1 Fills Dispensed: 0 Start: 10-14-2024 MetFORMIN (Eqv -Glucophage XR) 500 mg oral tablet, EXTENDED RELEASE Dose : 1,000 mg = 2 tab(s), Oral, BID, # 400 tab(s), 0 Refill(s), Pharmacy: [facility], 152, cm, 10/14/24 14:33:00 EDT, Height, kg, 10/14/24 14:33:00 EDT, Dosing Weight Start Date: 10/14/24 Status: Ordered Quantity: 400.0 Unit: tab(s) Repeat number: 1 Start: 07-26-2024 MetFORMIN (Eqv -Glucophage XR) 500 mg oral tablet, EXTENDED RELEASE Dose : 1,000 mg = 2 tab(s), Oral, BID, # 400 tab(s), 0 Refill(s), Pharmacy: [facility], 152, cm, 07/26/24 12:06:00 EDT, Height, kg, 07/26/24 12:06:00 EDT, Dosing Weight Start Date: 07/26/24 Status: Ordered Quantity: 400.0 Unit: tab(s) Repeat number: 1 Start: 06-26-2024 MetFORMIN (Eqv -Glucophage XR) 500 mg oral tablet, EXTENDED RELEASE Dose : 1,000 mg = 2 tab(s), Oral, BID, # 120 tab(s), 0 Refill(s), Pharmacy: [facility], 152, cm, 05/17/24 16:13:00 EST, Height, kg, 05/17/24 16:13:00 EST, Dosing Weight Start Date: 06/26/24 Status: Ordered Quantity: 120.0 Unit: tab(s) Repeat number: 1 Start: 01-14-2024 MetFORMIN (Eqv -Glucophage XR) 500 mg oral tablet, EXTENDED RELEASE Dose : 1,000 mg = 2 tab(s), Oral, BID, # 120 tab(s), 1 Refill(s), Pharmacy: [facility], 152, cm, 12/26/23 11:21:00 EDT, Height, kg, 12/26/23 11:21:00 EDT, Dosing Weight Start Date: 01/14/24 Status: Ordered Quantity: 120.0 Unit: tab(s) Repeat number: 2 Start: 10-25-2023 MetFORMIN (Eqv -Glucophage XR) 500 mg oral tablet, EXTENDED RELEASE Dose : 1,000 mg = 2 tab(s), Oral, BID, # 120 tab(s), 1 Refill(s), Pharmacy: [facility], 152.2, cm, 09/27/23 11:25:00 EDT, Height, kg, 09/27/23 11:25:00 EDT, Dosing Weight Start Date: 10/25/23 Status: Ordered take 2 tablets by [facility] twice daily metFORMIN (GLUCOPHAGE-XR) 500 MG extended release tablet Take 2 tablets by mouth 2 times daily Active take 1 tablet by [facility] once daily at breakfast metFORMIN ER (GLUCOPHAGE XR) 500 mg 24 hr tablet Take 500 mg by mouth daily with breakfast. Active methocarbamol 750 mg oral tablet (20 sources) Muscle Relaxant Start: 11-25-2024 methocarbamol 750 mg oral tablet Dose : 750 mg = 1 tab(s), Oral, TID, TAKE 1 TABLET BY MOUTH EVERY 8 HOURS NEEDED. Takes TID along with Lyrica., # 270 tab(s), 0 Refill(s), Pharmacy: [facility], 152, cm, 11/25/24 13:32:00 EDT, Height, kg, 11/25/24 13:32:00 EDT, Dosing Weight Start Date: 11/25/24 Status: Ordered Medication Dispense Status: Completed Quantity: 270.0 Unit: tab(s) Total Allowed Fills: 1 Fills Dispensed: 0 Start: 10-14-2024 methocarbamol 750 mg oral tablet Dose : 750 mg = 1 tab(s), Oral, TID, TAKE 1 TABLET BY MOUTH EVERY 8 HOURS NEEDED. Takes TID along with Lyrica., # 270 tab(s), 0 Refill(s), Pharmacy: [facility], 152, cm, 10/14/24 14:33:00 EDT, Height, kg, 10/14/24 14:33:00 EDT, Dosing Weight Start Date: 10/14/24 Status: Ordered Quantity: 270.0 Unit: tab(s) Repeat number: 1 Start: 07-26-2024 methocarbamol 750 mg oral tablet Dose : 750 mg = 1 tab(s), Oral, TID, TAKE 1 TABLET BY MOUTH EVERY 8 HOURS NEEDED. Takes TID along with Lyrica., # 270 tab(s), 0 Refill(s), Pharmacy: [facility], 152, cm, 07/26/24 12:06:00 EDT, Height, kg, 07/26/24 12:06:00 EDT, Dosing Weight Start Date: 07/26/24 Status: Ordered Quantity: 270.0 Unit: tab(s) Repeat number: 1 Start: 05-14-2024 methocarbamol 750 mg oral tablet Dose : 750 mg = 1 tab(s), Oral, TID, TAKE 1 TABLET BY MOUTH EVERY 8 HOURS NEEDED. Takes TID along with Lyrica., # 270 tab(s), 0 Refill(s), Pharmacy: [facility], 152, cm, 05/08/24 11:56:00 EST, Height, kg, 05/08/24 11:56:00 EST, Dosing Weight Start Date: 05/14/24 Status: Ordered Quantity: 270.0 Unit: tab(s) Repeat number: 1 Start: 03-10-2021 methocarbamol 750 mg oral tablet Dose : 750 mg = 1 tab(s), Oral, TID, TAKE 1 TABLET BY MOUTH EVERY 8 HOURS NEEDED. Takes TID along with Lyrica., # 270 tab(s), 0 Refill(s), Pharmacy: [facility], 152, cm, 02/06/24 15:12:00 EST, Height, kg, 02/06/24 15:12:00 EST, Dosing Weight Start Date: 02/13/24 Status: Ordered Quantity: 270.0 Unit: tab(s) Repeat number: 1 methocarbamol (R OBAXIN) 750 MG tablet TAKE 1 TABLET BY MOUTH THREE TIMES DAILY, EVERY 8 HOURS, along with lyrica. Active take 1 tablet by brad th every six hours as needed methocarbamol (ROBAXIN) 750 mg tablet Take 750 mg by mouth four times daily as needed. Active Comment on above: Take 750 mg by mouth four times daily. Take 750 mg by mouth four times daily as needed. metoclopramide 10 mg oral tablet (6 sources) Dopamine-2 Receptor Antagonist Start: 07-09-19 take 1 tablet by mouth three times daily before mealtime metoclopramide (REGLAN) 10 MG tablet TAKE 1 TABLET BY MOUTH BEFORE MEALS THREE TIMES DAILY DIRECTED FOR COLONOSCOPY BOWEL PREP 07/08/2024 Active miconazole nitrate 20 mg/ml vaginal cream (1 source) Azole Antifungal Start: 10-27-19 End: 11-03-19 miconazole (MICONAZOLE-7) 2 % vaginal cream Indications: Yang glabrata infection Use 1 Applicator vaginally daily at bedtime for 7 days. 45 g 0 10/26/2021 11/02/2021 Active Comment on above: Use 1 Applicator vag inally daily at bedtime for 7 days. Misc Medication (11 sources) Start: 01-23-20 Misc Medication 0 Refill(s), 84.7 Start Date: 01/23/24 Status: Ordered Repeat number: 1 Start: 01-23-2024 Misc Medicatio n 0 Refill(s), 84.7 Start Date: 01/23/24 Status: Ordered Start: 12-26-2023 Misc Medicatio n 0 Refill(s), 81.95 Start Date: 12/26/23 Status: Ordered Repeat number: 1 Start: 12-26-2023 Misc Medicatio n 0 Refill(s), 81.95 Start Date: 12/26/23 Status: Ordered montelukast 10 mg oral tablet (20 sources) Leukotriene Receptor Antagonist Start: 12-24-2021 End: 04-07-2022 take 1 tablet by mouth once daily montelukast (Singulair) 10 MG tablet TAKE 1 TABLET BY MOUTH EVERY DAY FOR 30 DAYS 12/24/2021 Active Comment on above: TAKE 1 TABLET BY BRAD TH EVERY DAY FOR 30 DAYS Multiple Vitamins oral capsule (6 sources) Start: 02-14-2023 take 1 capsule by mouth once daily Multiple Vitamins oral capsule Dose = 1 cap(s), Oral, qDay, # 90 cap(s), 3 Refill(s), Pharmacy: [facility], 152, cm, 02/10/23 13:06:00 EST, Height, kg, 02/10/23 13:06:00 EST, Dosing Weight Start Date: 02/14/23 Status: Ordered naloxone hydrochloride 40 mg/ml nasal spray (20 sources) Opioid Antagonist naloxone (Narc an) 4 mg/0.1 mL nasal spray Narcan 4 mg/actuation nasal spray Active End: 11-06-2023 naloxone 4 mg/actuation nasa l spray (NARCAN) 11/06/2023 Discontinued 24 hr nicotine 0.875 mg/hr transdermal system (20 sources) Cholinergic Nicotinic Agonist nicotine (Nicoderm, Step 1) 21 MG/24HR patch nicotine 21 mg/24 hr daily transdermal patch Active nicotine 21 mg-14 mg-7 mg patch TAPER (Disch Rx) (2 sources) Start: 03-16-2021 End: 04-27-2021 nicotine 21 mg-14 mg-7 mg patch TAPER (Disch Rx) Dose = 1 patch(es), Transdermal, Daily, Apply 21 mg a day patch for 6 weeks. Followed by 40 mg a day patch for 2 weeks, followed by 7 mg a day patch for 2 weeks., X 6 week(s), # 42 patch(es), 0 Refill(s), Pharmacy: [facility], 150.5,... Start Date: 03/16/21 Stop Date: 04/27/21 Status: Ordered nicotine 4 mg oral transmucosal gum (3 sources) Start: 03-26-2021 End: 06-18-2021 nicotine 4 mg oral transmucosal gum Dose : 4 mg = 1 EA, Chewed, q2h, PRN as needed for smoking cessation, X 12 week(s), # 160 EA, 0 Refill(s), 06/18/21 13:58:00 EDT, Pharmacy: [facility], 150.5, cm, 03/26/21 13:42:00 EST, Height, kg, 03/26/21 13:33:00 EST, Dosing Weight Start Date: 03/26/21 Stop Date: 06/18/21 Status: Ordered Norethin Tres-Eth Estrad-FE (MYRA FE /20 PO) (8 sources) Norethin Tres-Eth Estrad-FE (MYRA FE /20 PO) Take 1 tablet by mouth daily Patient takes this medication at 8 am. Active take 1 tablet by brad th once daily in the morning, then take 0.05 tablet by mouth Norethin Tres-Eth Estrad-FE (MRYA FE /20 PO) Take 1 tablet by mouth daily Patient takes this medication at 8 am. 0 Active nystatin 100 unt/mg topical powder (20 sources) Polyene Antifungal Start: 11-10-2022 nystatin (Mycostatin) 436128 UNIT/GM powder Indications: Intertrigo Apply to affected areas on skin folds once to twice daily. 60 g 3 11/10/2022 Active omeprazole 40 mg delayed release oral capsule (20 sources) Proton Pump Inhibitor Start: 07-26-2024 End: 04-12-2025 take 1 capsule by mouth twice daily 30 minutes before breakfast omeprazole 40 mg oral delayed release capsule TAKE 1 CAPSULE BY MOUTH TWICE DAILY TAKE 30 MINUTES BEFORE BREAKFAST AND DINNER Start Date: 12/04/24 Status: Ordered Medication Dispense Status: Completed Total Allowed Fills: 1 Fills Dispensed: 0 Start: 09-27-2023 End: 06-23-2024 omeprazole 40 mg oral delaye d release capsule Dose : 40 mg = 1 cap(s), Oral, qDay, # 90 cap(s), 1 Refill(s), Pharmacy: [facility], 152, cm, 12/26/23 11:21:00 EDT, Height, kg, 12/26/23 11:21:00 EDT, Dosing Weight Start Date: 12/26/23 Stop Date: 06/23/24 Status: Ordered Quantity: 90.0 Unit: cap(s) Repeat number: 2 Start: 02-14-2023 End: 08-13-2023 omeprazole 40 mg oral delaye d release capsule Dose : 40 mg = 1 cap(s), Oral, qDay, # 90 cap(s), 1 Refill(s), Pharmacy: [facility], 152, cm, 02/10/23 13:06:00 EST, Height, kg, 02/10/23 13:06:00 EST, Dosing Weight Start Date: 02/14/23 Stop Date: 08/13/23 Status: Ordered Start: 02-11-2022 End: 02-06-2023 omeprazole 40 mg oral delaye d release capsule Dose : 40 mg = 1 cap(s), Oral, qDay, # 90 cap(s), 3 Refill(s), Pharmacy: [facility], 150.5, cm, 02/11/22 15:35:00 EST, Height Start Date: 02/11/22 Stop Date: 02/06/23 Status: Ordered Start: 11-22-2021 End: 04-07-2022 omeprazole (PriLOSEC) [address] capsule omeprazole 20 mg capsule,delayed release 11/22/2021 Active Start: 03-10-2021 End: 06-08-2021 omeprazole 20 mg oral delaye d release capsule Dose : 20 mg = 1 cap(s), Oral, qDay, # 30 cap(s), 2 Refill(s), Pharmacy: [facility], 150.5, cm, 03/10/21 14:42:00 EST, Height, kg, 03/10/21 14:42:00 EST, Dosing Weight Start Date: 03/10/21 Stop Date: 06/08/21 Status: Ordered Start: 03-10-2021 End: 02-06-2023 omeprazole (PriLOSEC) [address] capsule Take 20 mg by mouth. 03/10/2021 Active omeprazole magne sium (PRILOSEC ORAL) Take by mouth. Active omeprazole magne sium (PRILOSEC ORAL) Take by mouth. 0 Active Comment on above: Take by mouth. Take 20 mg by mouth once daily. ondansetron 4 mg disintegrating oral tablet (20 sources) Serotonin-3 Receptor Antagonist Start: 10-23-19 take 1 tablet by mouth every eight hours as needed ondansetron (ZOFRAN-ODT) 4 MG disintegrating tablet Take 1 tablet by mouth every 8 hours as needed 10/23/2023 Active Start: 07-03-2023 End: 07-03-2023 ondansetron (PF) 8 mg inject ion (ZOFRAN) Start: 10-20-2022 ondansetron OD T (Zofran-ODT) [address] 1 tablet under tongue three times a day as needed 10/20/2022 Active Start: 05-03-2021 End: 10-12-2021 take 1 tablet by mouth every eight hours as needed for nausea ondansetron (ZOFRAN) 4 mg tablet Indications: Vulvar boil Take 1 tablet by mouth every 8 hours as needed for nausea/vomiting. 20 tablet 0 05/03/2021 10/12/2021 Discontinued Comment on above: Take 1 tablet by brad th every 8 hours as needed for nausea/vomiting. pantoprazole 40 mg delayed release oral tablet (20 sources) Proton Pump Inhibitor pantoprazo le (ProtoNix) 40 MG EC tablet pantoprazole 40 mg tablet,delayed release Active Pen needles 4 mm (20 sources) Start: 05-03-2022 Pen needles 4 mm See Instructions, qs for 1 month supply, # 1 EA, 11 Refill(s), Pharmacy: [facility], 150.5, cm, 03/25/22 15:10:00 EST, Height, 82.1 Start Date: 05/03/22 Status: Ordered Medication Dispense Status: Completed Quantity: 1.0 Unit: EA Total Allowed Fills: 12 Fills Dispensed: 0 Start: 05-03-2022 Pen needles 4 mm See Instructions, qs for 1 month supply, # 1 EA, 11 Refill(s), Pharmacy: [facility], 150.5, cm, 03/25/22 15:10:00 EST, Height, 82.1 Start Date: 05/03/22 Status: Ordered Quantity: 1.0 Unit: EA Repeat number: 12 Start: 05-03-2022 Pen needles 4 mm See Instructions, qs for 1 month supply, # 1 EA, 11 Refill(s), Pharmacy: [facility], 150.5, cm, 03/25/22 15:10:00 EST, Height, 82.1 Start Date: 05/03/22 Status: Ordered phentermine hydrochloride 15 mg oral capsule (20 sources) Sympathomimetic Amine Anorectic Start: 09-19-2022 End: 12-12-2022 take 1 capsule by mouth once daily in the morning phentermine 15 MG capsule TAKE 1 CAPSULE BY MOUTH EVERY MORNING FOR 7 DAYS 10/17/2022 Active Comment on above: take 1 capsule daily IN THE MORNING ,for 30 days ,InstrMonth 1 3, end OF meds on 12/20/2022] polyethylene glycol 3350 68919 mg powder for oral solution (20 sources) Osmotic Laxative Start: 11-25-2024 take 17 doses by mouth three times daily MiraLax oral powder for reconstitution Dose : 17 gram(s) =, Oral, TID, # 527 gram(s), 1 Refill(s), Pharmacy: [facility], 152, cm, 11/25/24 13:32:00 EDT, Height, kg, 11/25/24 13:32:00 EDT, Dosing Weight Start Date: 11/25/24 Status: Ordered Medication Dispense Status: Completed Quantity: 527.0 Unit: g Total Allowed Fills: 2 Fills Dispensed: 0 Start: 10-14-2024 take 17 doses by [facility] three times daily MiraLax oral powder for reconstitution Dose : 17 gram(s) =, Oral, TID, # 527 gram(s), 1 Refill(s), Pharmacy: [facility], 152, cm, 10/14/24 14:33:00 EDT, Height, kg, 10/14/24 14:33:00 EDT, Dosing Weight Start Date: 10/14/24 Status: Ordered Quantity: 527.0 Unit: g Repeat number: 2 Start: 09-27-2023 take 17 doses by [facility] once daily MiraLax oral powder for reconstitution Dose : 17 gram(s) =, Oral, qDay, # 255 gram(s), 0 Refill(s), Pharmacy: [facility], 152.2, cm, 09/27/23 11:25:00 EDT, Height, kg, 09/27/23 11:25:00 EDT, Dosing Weight Start Date: 09/27/23 Status: Ordered Start: 05-01-2023 take 17 doses by [facility] once daily MiraLax oral powder for reconstitution Dose : 17 gram(s) =, Oral, qDay, # 255 gram(s), 0 Refill(s), Pharmacy: [facility], 152, cm, 04/27/23 14:13:00 EST, Height, kg, 04/27/23 14:13:00 EST, Dosing Weight Start Date: 05/01/23 Status: Ordered Start: 03-10-2021 MiraLax oral p owder for reconstitution gram(s) =, Oral, qDay, 0 Refill(s) Start Date: 03/10/21 Status: Ordered Start: 07-27-2016 End: 06-18-2021 polyethylene glycol, PEG, 33 50 (Glycolax) 17 GM/SCOOP powder polyethylene glycol 3350 17 gram/dose oral powder 07/27/2016 Active Start: 07-27-2016 End: 11-28-2022 take 17 doses by mouth three times daily MiraLax oral powder for reconstitution Dose : 17 gram(s) =, Oral, TID, # 527 gram(s), 1 Refill(s), Pharmacy: [facility], 152, cm, 05/17/24 16:13:00 EST, Height, kg, 05/17/24 16:13:00 EST, Dosing Weight Start Date: 06/11/24 Status: Ordered Quantity: 527.0 Unit: g Repeat number: 2 Start: 07-27-2016 End: 06-18-2021 take 17 g by mouth every eight hours as needed polyethylene glycol 3350 (MIRALAX) 17 gram/dose powder Take 17 g by mouth three times daily as needed for constipation. Dissolve dose in 4 - 8 ounces of liquid and take as directed. 116 g 2 06/15/2021 06/18/2021 Discontinued Comment on above: Take 17 g by mouth t wice daily. Take 17 g by mouth t hree times daily as needed for constipation. Dissolve dose in 4 - 8 ounces of liquid and take as directed. polyethylene glycol 3350 212906 mg / potassium chloride 2970 mg / sodium bicarbonate 6740 mg / sodium chloride 5860 mg / sodium sulfate 62927 mg powder for oral solution (20 sources) Osmotic Laxative Start: 07-08-2024 GAVILYTE-G 236 g solution 240 mL orally every 10 minutes; As directed for split dose bowel prep 07/08/2024 Active Start: 06-29-2021 End: 04-07-2022 peg 3350-Electrolytes (GOLYT BEATRICE) 236-22.74-6.74 -5.86 gram suspension Refer to printed patient instructions that will be mailed to you. 1 Each 0 06/29/2021 04/07/2022 Discontinued (Course of therapy completed) Comment on above: Refer to printed pat ient instructions that will be mailed to you. potassium chloride 20 meq oral tablet (20 sources) Start: take 2 tablets by mouth in the morning, then take 1 tablet by mouth in the evening Potassium Chloride (Eqv-K-Tab) 20 mEq oral tablet, extended release See Instructions, 2 tabs (40meq) in AM 1 tab (20meq) in PM, # 90 tab(s), 1 Refill(s), Pharmacy: [facility], 152, cm, 11/25/24 13:32:00 EDT, Height, kg, 11/25/24 13:32:00 EDT, Dosing Weight Start Date: 11/25/24 Status: Ordered Medication Dispense Status: Completed Quantity: 90.0 Unit: tab(s) Total Allowed Fills: 2 Fills Dispensed: 0 Start: 10-14-2024 take 2 tablets by mo uth in the morning, then take 1 tablet by mouth in the evening Potassium Chloride (Eqv-K-Tab) 20 mEq oral tablet, extended release See Instructions, 2 tabs (40meq) in AM 1 tab (20meq) in PM, # 90 tab(s), 1 Refill(s), Pharmacy: [facility], 152, cm, 10/14/24 14:33:00 EDT, Height, kg, 10/14/24 14:33:00 EDT, Dosing Weight Start Date: 10/14/24 Status: Ordered Quantity: 90.0 Unit: tab(s) Repeat number: 2 Start: 10-14-2024 Potassium Chlo ride (Eqv-K-Tab) 20 mEq oral tablet, extended release Dose : 20 mEq = 1 tab(s), Oral, BID, # 180 tab(s), 0 Refill(s), Pharmacy: [facility], 152, cm, 10/14/24 14:33:00 EDT, Height, kg, 10/14/24 14:33:00 EDT, Dosing Weight Start Date: 10/14/24 Status: Ordered Quantity: 180.0 Unit: tab(s) Repeat number: 1 Start: 09-02-2024 take 1 tablet by brad th twice daily potassium chloride (K-TAB) 20 MEQ TBCR extended release tablet Take 1 tablet by mouth 2 times daily 09/02/2024 Active Start: 08-29-2024 Potassium Chlo ride (Eqv-K-Tab) 20 mEq oral tablet, extended release Dose : 20 mEq = 1 tab(s), Oral, BID, # 180 tab(s), 0 Refill(s), Pharmacy: [facility], 152, cm, 08/26/24 13:50:00 EDT, Height, kg, 08/26/24 13:50:00 EDT, Dosing Weight Start Date: 08/29/24 Status: Ordered Quantity: 180.0 Unit: tab(s) Repeat number: 1 Start: 07-26-2024 Potassium Chlo ride (Eqv-K-Tab) 20 mEq oral tablet, extended release Dose : 20 mEq = 1 tab(s), Oral, qDay, # 90 tab(s), 0 Refill(s), Pharmacy: [facility], 152, cm, 07/26/24 12:06:00 EDT, Height, kg, 07/26/24 12:06:00 EDT, Dosing Weight Start Date: 07/26/24 Status: Ordered Quantity: 90.0 Unit: tab(s) Repeat number: 1 Start: 06-25-2024 Potassium Chlo ride (Eqv-K-Tab) 10 mEq oral tablet, extended release Dose : 10 mEq = 1 tab(s), Oral, qDay, # 30 tab(s), 2 Refill(s), Pharmacy: [facility], [facility] Hypokalemia, 152, cm, 05/17/24 16:13:00 EST, Height, kg, 05/17/24 16:13:00 EST, Dosing Weight Start Date: 06/26/24 Status: Ordered Quantity: 30.0 Unit: tab(s) Repeat number: 3 Indications: Hypokalemia; Encounter for general adult medical examination without abnormal findings; Start: 03-19-2024 potassium chlo ride 20 mEq oral powder for reconstitution 1 packet(s), Oral, BID, # 30 EA, 0 Refill(s), Pharmacy: [facility], Hypokalemia, 152, cm, 03/19/24 11:32:00 EST, Height, kg, 03/19/24 11:32:00 EST, Dosing Weight Start Date: 03/19/24 Status: Ordered Quantity: 30.0 Unit: EA Repeat number: 1 Indication: Hypokalemia Start: 09-27-2023 potassium chlo ride 20 mEq oral tablet, extended release Dose : 20 mEq = 1 tab(s), Oral, qDay, Take with food., # 90 tab(s), 1 Refill(s), Pharmacy: [facility], Hypokalemia, 152.2, cm, 09/27/23 11:25:00 EDT, Height, kg, 09/27/23 11:25:00 EDT, Dosing Weight Start Date: 09/27/23 Status: Ordered Start: 04-17-2023 End: 04-24-2023 potassium chloride 20 mEq or al tablet, extended release Dose : 20 mEq = 1 tab(s), Oral, qDay, Take with food., # 90 tab(s), 0 Refill(s), Pharmacy: [facility], Hypokalemia, 152, cm, 04/17/23 15:12:00 EST, Height, kg, 04/17/23 15:12:00 EST, Dosing Weight Start Date: 04/17/23 Stop Date: 04/24/23 Status: Ordered Start: 03-29-2023 End: 04-05-2023 potassium chloride 20 mEq or al tablet, extended release Dose : 20 mEq = 1 tab(s), Oral, qDay, Take with food., # 7 tab(s), 0 Refill(s), Pharmacy: [facility], Hypokalemia, 152, cm, 03/29/23 13:45:00 EST, Height, kg, 03/29/23 13:45:00 EST, Dosing Weight Start Date: 03/29/23 Stop Date: 04/05/23 Status: Ordered predniSONE 20 mg oral tablet (2 sources) Start: 03-10-2021 End: 03-15-2021 predniSONE 20 mg oral tablet Dose : 20 mg = 1 tab(s), Oral, BID, X 5 day(s), # 10 tab(s), 0 Refill(s), 03/15/21 15:34:00 EST, Pharmacy: [facility], 150.5, cm, 03/10/21 14:42:00 EST, Height, kg, 03/10/21 14:42:00 EST, Dosing Weight Start Date: 03/10/21 Stop Date: 03/15/21 Status: Ordered pregabalin 300 mg oral capsule (20 sources) Start: 01-09-2025 End: 03-10-2025 take 1 capsule by mouth in the evening pregabalin 150 mg oral capsule Dose : 150 mg = 1 cap(s), Oral, BID, Fill 02/08/25 R0 150mg AM and noon, 300mg PM (separate prescriptions), # 60 cap(s), 0 Refill(s), Pharmacy: [facility], Fibromyalgia, 152, cm, 12/04/24 15:10:00 EDT, Height, 85.7, kg, 12/04/24 15:10:00 EDT, Dosing Weight Start Date: 02/08/25 Stop Date: 03/10/25 Status: Ordered Medication Dispense Status: Completed Quantity: 60.0 Unit: cap(s) Total Allowed Fills: 1 Fills Dispensed: 0 Indications: Fibromyalgia; Start: 01-09-2025 End: 03-10-2025 take 1 capsule by mouth in the evening pregabalin 300 mg oral capsule Dose : 300 mg = 1 cap(s), Oral, qHS, Fill 02/08/25 R0 150mg AM and noon, 300mg PM (separate prescriptions), # 30 cap(s), 0 Refill(s), Pharmacy: [facility], Fibromyalgia, 152, cm, 12/04/24 15:10:00 EDT, Height, 85.7, kg, 12/04/24 15:10:00 EDT, Dosing Weight Start Date: 02/08/25 Stop Date: 03/10/25 Status: Ordered Medication Dispense Status: Completed Quantity: 30.0 Unit: cap(s) Total Allowed Fills: 1 Fills Dispensed: 0 Indications: Fibromyalgia; Start: 12-04-2024 pregabalin 150 mg oral capsule See Instructions, fill 12/11/24 R0 150mg AM and noon (seperate Rx 150mg), 300mg PM, # 60 cap(s), 0 Refill(s), Pharmacy: [facility], Fibromyalgia, 152, cm, 12/04/24 15:10:00 EDT, Height, 85.7, kg, 12/04/24 15:10:00 EDT, Dosing Weight Start Date: 12/04/24 Status: Ordered Medication Dispense Status: Completed Quantity: 60.0 Unit: cap(s) Total Allowed Fills: 1 Fills Dispensed: 0 Indications: Fibromyalgia; Start: 12-04-2024 End: 01-03-2025 take 1 capsule by mouth in the evening pregabalin 300 mg oral capsule Dose : 300 mg = 1 cap(s), Oral, qHS, fill 12/11/24 R0 150mg AM and noon (seperate Rx 150mg), 300mg PM, # 30 cap(s), 0 Refill(s), Pharmacy: [facility], Fibromyalgia, 152, cm, 12/04/24 15:10:00 EDT, Height, 85.7, kg, 12/04/24 15:10:00 EDT, Dosing Weight Start Date: 12/04/24 Stop Date: 01/03/25 Status: Ordered Medication Dispense Status: Completed Quantity: 30.0 Unit: cap(s) Total Allowed Fills: 1 Fills Dispensed: 0 Indications: Fibromyalgia; Start: 08-11-2024 take 1 capsule by mo ut once daily in the morning pregabalin (LYRICA) 150 MG capsule TAKE 1 CAPSULE BY MOUTH EVERY DAY IN THE MORNING and noon. take 300mg capsule IN THE EVENING 09/14/2024 Active Start: 08-11-2024 pregabalin 150 mg oral capsule See Instructions, fill 08/11/24 R2 150mg AM and noon (seperate Rx 150mg), 300mg PM, # 60 cap(s), 2 Refill(s), Pharmacy: [facility], Fibromyalgia, 152, cm, 07/26/24 12:06:00 EDT, Height, 82.1, kg, 07/26/24 12:06:00 EDT, Dosing Weight Start Date: 08/11/24 Status: Ordered Quantity: 60.0 Unit: cap(s) Repeat number: 3 Indications: Fibromyalgia; Start: 05-14-2024 End: 11-09-2024 take 1 capsule by mouth once daily in the evening pregabalin (LYRICA) 300 MG capsule TAKE 1 CAPSULE BY MOUTH EVERY DAY IN THE EVENING 09/14/2024 Active Start: 05-14-2024 pregabalin 150 mg oral capsule See Instructions, fill 05/15/24 R2 150mg AM and noon (seperate Rx 150mg), 300mg PM, # 60 cap(s), 2 Refill(s), Pharmacy: [facility], Fibromyalgia, 152, cm, 05/08/24 11:56:00 EST, Height, 82.7, kg, 05/08/24 11:56:00 EST, Dosing Weight Start Date: 05/14/24 Status: Ordered Quantity: 60.0 Unit: cap(s) Repeat number: 3 Indications: Fibromyalgia; Start: 02-06-2024 End: 05-06-2024 take 1 capsule by mouth in the evening pregabalin 300 mg oral capsule Dose : 300 mg = 1 cap(s), Oral, qHS, fill 02/06/24 R0 150mg AM and noon (seperate Rx 150mg), 300mg PM, # 30 cap(s), 2 Refill(s), Pharmacy: [facility], Fibromyalgia, 149, cm, 02/06/24 14:11:00 EST, Height, 82.8, kg, 02/06/24 14:11:00 EST, Dosing Weight Start Date: 02/06/24 Stop Date: 05/06/24 Status: Ordered Quantity: 30.0 Unit: cap(s) Repeat number: 3 Indication: Fibromyalgia Start: 02-06-2024 take 1 capsule by mo uth in the morning, then take 2 capsules by mouth in the evening pregabalin 150 mg oral capsule See Instructions, fill 02/06/24 R0 150mg AM and noon, 300mg PM (seperate Rx for 300mg), # 60 cap(s), 2 Refill(s), Pharmacy: [facility], Fibromyalgia, 149, cm, 02/06/24 14:11:00 EST, Height, 82.8, kg, 02/06/24 14:11:00 EST, Dosing Weight Start Date: 02/06/24 Status: Ordered Quantity: 60.0 Unit: cap(s) Repeat number: 3 Indication: Fibromyalgia Start: 10-30-2023 End: 11-30-2023 pregabalin (LYRICA) 50 mg ca psule Indications: fibromyalgia , perioperative pain management Add 1 tablet to usual 100mg dose TID x7 days postoperatively 21 capsule 10/30/2023 11/06/2023 Discontinued Start: 03-25-2022 End: 12-26-2023 take 1 capsule by mouth three times daily pregabalin (LYRICA) 100 mg capsule Take 100 mg by mouth three times daily. 03/25/2022 Active Start: 03-26-2021 End: 04-02-2021 pregabalin 75 mg oral capsul e Dose : 75 mg = 1 cap(s), Oral, BID, # 14 cap(s), 0 Refill(s), Pharmacy: [facility], Fibromyalgia, 150.5, cm, 03/26/21 13:42:00 EST, Height, 56.5, kg, 03/26/21 13:33:00 EST, Dosing Weight Start Date: 03/26/21 Stop Date: 04/02/21 Status: Ordered Start: 06-30-2020 pregabalin (Ly roni) 100 MG capsule every 8 hours. 06/30/2020 Active Start: 06-30-2020 End: 01-10-2022 pregabalin (LYRICA) 100 mg c apsule 1 capsule 0 06/30/2020 01/10/2022 Discontinued End: 05-22-2019 take 1 capsule by mouth three times daily pregabalin (LYRICA) 100 MG capsule Indications: This medication was cut off because she did not want to continue seeing the prescribing MD. Take 100 mg by mouth three times daily. Indications: This medication was cut off because she did not want to continue seeing the prescribing MD. 0 05/22/2019 Discontinued (Medication Clarified) Comment on above: 1 capsule Take 100 mg by mouth three times daily. AD (8 sources) Start: 4 AD Oral, qDay, 0 Refill(s) Start Date: 03/29/23 Status: Ordered sennosides, chcf 8.6 mg oral tablet (2 sources) Start: 4 End: 4 take 1 tablet by mouth once daily Senna 8.6 mg tab Indications: postoperative constipation Take 1 tablet by mouth once daily for 10 days. To avoid postoperative constipation 10 tablet 10/23/2023 11/02/2023 Active sofosbuvir 400 mg / velpatasvir 100 mg oral tablet (17 sources) Hepatitis C Virus NS5A Inhibitor, Hepatitis C Virus Nucleotide Analog NS5B Polymerase Inhibitor Start: 2 End: 2 take 1 tablet by mouth once daily sofosbuvir-velpatasvir (EPCLUSA) 400-100 mg Indications: Chronic hepatitis C without hepatic coma (HCC) Take 1 tablet by mouth once daily. 28 tablet 2 07/05/2021 01/10/2022 Discontinued Start: 06-15-2021 End: 07-02-2021 take 1 tablet by mouth once daily sofosbuvir-velpatasvir (EPCLUSA) 400-100 mg Indications: Chronic hepatitis C without hepatic coma (HCC) Take 1 tablet by mouth once daily. 28 tablet 2 06/15/2021 07/02/2021 Discontinued Comment on above: Take 1 tablet by brad th once daily. spironolactone 25 mg oral tablet (1 source) Aldosterone Antagonist Start: 025 spironolactone 25 mg oral tablet Dose : 25 mg = 1 tab(s), Oral, BID, # 60 tab(s), 0 Refill(s), Pharmacy: [facility], Acne Hypokalemia, 152, cm, 08/26/24 13:50:00 EDT, Height, kg, 09/24/24 15:51:00 EDT, Dosing Weight Start Date: 09/24/24 Status: Ordered Quantity: 60.0 Unit: tab(s) Repeat number: 1 Indications: Acne, unspecified; Hypokalemia; tacrolimus 0.001 mg/mg topical ointment (20 sources) Calcineurin Inhibitor Immunosuppressant Start: 022 End: 023 tacrolimus (Protopic) 0.1 % ointment Indications: Other atopic dermatitis Apply to affected areas of eczema twice daily. 60 g 3 05/12/2022 Active tamsulosin hydrochloride 0.4 mg oral capsule (20 sources) alpha-Adrenergic Elaine tamsulo sin (Flomax) 0.4 MG 24 hr capsule tamsulosin 0.4 mg capsule Active Ibsrela (5 sources) Start: take 1 mg by mouth twice daily Ibsrela mg =, Oral, BID, 0 Refill(s) Start Date: 08/26/24 Status: Ordered Medication Dispense Status: Completed Total Allowed Fills: 1 Fills Dispensed: 0 Start: 08-26-2024 take 1 mg by mouth twice daily Ibsrela mg =, Oral, BID, 0 Refill(s) Start Date: 08/26/24 Status: Ordered Repeat number: 1 tirzepatide 5 mg/0.5 mL subcutaneous solution (3 sources) Start: 02-13-2024 inject 1 dose by subcutaneous injection every week tirzepatide 5 mg/0.5 mL subcutaneous solution Dose : 5 mg =, Subcutaneous, qWeek, rotate injection sites NPI: [id number] [place]PDP: [id number], # 2 mL, 0 Refill(s), Pharmacy: [facility], Obesity, 152, cm, 02/06/24 15:12:00 EST, Height, kg, 02/06/24 15:12:00 EST, Dosing Weight Start Date: 02/13/24 Status: Ordered Quantity: 2.0 Unit: mL Repeat number: 1 Indications: Obesity, unspecified; Start: 02-13-2024 inject 1 dose by sub cutaneous injection every week tirzepatide 5 mg/0.5 mL subcutaneous solution Dose : 5 mg =, Subcutaneous, qWeek, rotate injection sites NPI: [id number] [place]PDP: [id number], # 2 mL, 0 Refill(s), Pharmacy: [facility], Obesity, 152, cm, 02/06/24 15:12:00 EST, Height, kg, 02/06/24 15:12:00 EST, Dosing Weight Start Date: 02/13/24 Status: Ordered Quantity: 2.0 Unit: mL Repeat number: 1 Indication: Obesity, unspecified tirzepatide 7.5 mg/0.5 mL subcutaneous solution (2 sources) Start: 02-06-2024 inject 1 dose by subcutaneous injection every week tirzepatide 7.5 mg/0.5 mL subcutaneous solution Dose : 7.5 mg =, Subcutaneous, qWeek, rotate injection sites Sent to [facility] NPI: [id number] [place]PDP: [id number], # 2 mL, 2 Refill(s), Pharmacy: [facility], 152, cm, 02/06/24 15:12:00 EST, Height, kg, 02/06/24 15:12:00 EST, Dosing Weight Start Date: 02/06/24 Status: Ordered TIRZEPATIDE, WEIGHT LOSS, SUBCUTANEOUS (11 sources) TIRZEPATIDE, LUDWIN GHT LOSS, SUBCUTANEOUS Inject subcutaneously. Active traMADol hydrochloride 100 mg oral tablet (11 sources) Opioid Agonist Start: 11-22-2023 End: 12-21-2023 take 1 tablet by mouth every six hours as needed for pain traMADol 100 mg tablet Indications: Chronic pelvic pain in female , Acute postoperative pain , Buprenorphine dependence (HCC) Take 1 tablet by mouth every 6 hours as needed for pain for up to 29 days. For postoperative pain Patient should start on November 22, 2023. 20 tablet 11/22/2023 12/21/2023 Active Start: 03-10-2021 traMADol 50 mg oral tablet Dose : 50 mg = 1 tab(s), Oral, q12h, PRN for pain, # 12 tab(s), 0 Refill(s), 51.6 Start Date: 03/10/21 Status: Ordered Start: 10-03-2016 TRAMADOL HCL 5 0 MG TABS TRAMADOL HCL [id number] Phuc White triazolam 0.125 mg oral tablet (6 sources) Benzodiazepine Start: 09-16-2024 take 1 tablet by mouth every hour triazolam (HALCION) 0.125 MG tablet ORAL SEDATION. Take three (3) tablets (0.125mg) one (1) hour prior to dental appointment. NO DRIVING, MUST BE ACCOMPANIED BY ADULT 09/16/2024 Active vitamin B12 (11 sources) Vitamin B12 Start: 12-26-2023 Vitamin B12 0 Refill(s) Start Date: 12/26/23 Status: Ordered Medication Dispense Status: Completed Total Allowed Fills: 1 Fills Dispensed: 0 Start: 12-26-2023 Vitamin B12 0 Refill(s) Start Date: 12/26/23 Status: Ordered Repeat number: 1 Start: 12-26-2023 Vitamin B12 0 Refill(s) Start Date: 12/26/23 Status: Ordered Vitamin D3 50 mcg (2000 intl units) oral capsule (13 sources) Start: 11-25-2024 Vitamin D3 50 mcg (2000 intl units) oral capsule Dose : 2,000 unit(s) = 1 cap(s), Oral, Daily, # 100 cap(s), 3 Refill(s), Pharmacy: [facility], 152, cm, 11/25/24 13:32:00 EDT, Height, kg, 11/25/24 13:32:00 EDT, Dosing Weight Start Date: 11/25/24 Status: Ordered Medication Dispense Status: Completed Quantity: 100.0 Unit: cap(s) Total Allowed Fills: 4 Fills Dispensed: 0 Start: 10-14-2024 Vitamin D3 50 mcg (2000 intl units) oral capsule Dose : 2,000 unit(s) = 1 cap(s), Oral, Daily, # 100 cap(s), 3 Refill(s), Pharmacy: [facility], 152, cm, 10/14/24 14:33:00 EDT, Height, kg, 10/14/24 14:33:00 EDT, Dosing Weight Start Date: 10/14/24 Status: Ordered Quantity: 100.0 Unit: cap(s) Repeat number: 4 Start: 07-26-2024 Vitamin D3 50 mcg (2000 intl units) oral capsule Dose : 2,000 unit(s) = 1 cap(s), Oral, Daily, # 100 cap(s), 3 Refill(s), Pharmacy: [facility], 152, cm, 07/26/24 12:06:00 EDT, Height, kg, 07/26/24 12:06:00 EDT, Dosing Weight Start Date: 07/26/24 Status: Ordered Quantity: 100.0 Unit: cap(s) Repeat number: 4 Start: 05-08-2024 Vitamin D3 50 mcg (2000 intl units) oral capsule Dose : 2,000 unit(s) = 1 cap(s), Oral, Daily, # 100 cap(s), 3 Refill(s), Pharmacy: [facility], 152, cm, 05/08/24 11:56:00 EST, Height, kg, 05/08/24 11:56:00 EST, Dosing Weight Start Date: 05/08/24 Status: Ordered Quantity: 100.0 Unit: cap(s) Repeat number: 4 Start: 12-26-2023 Vitamin D3 50 mcg (2000 intl units) oral capsule Dose : 2,000 unit(s) = 1 cap(s), Oral, Daily, # 100 cap(s), 3 Refill(s), Pharmacy: [facility], 152, cm, 12/26/23 11:21:00 EDT, Height, kg, 12/26/23 11:21:00 EDT, Dosing Weight Start Date: 12/26/23 Status: Ordered Quantity: 100.0 Unit: cap(s) Repeat number: 4 Start: 12-26-2023 Vitamin D3 50 mcg (2000 intl units) oral capsule Dose : 2,000 unit(s) = 1 cap(s), Oral, Daily, # 100 cap(s), 3 Refill(s), Pharmacy: [facility], 152, cm, 12/26/23 11:21:00 EDT, Height, kg, 12/26/23 11:21:00 EDT, Dosing Weight Start Date: 12/26/23 Status: Ordered Start: 09-27-2023 Vitamin D3 50 mcg (2000 intl units) oral capsule Dose : 2,000 unit(s) = 1 cap(s), Oral, Daily, # 100 cap(s), 3 Refill(s), Pharmacy: [facility], 152.2, cm, 09/27/23 11:25:00 EDT, Height, kg, 09/27/23 11:25:00 EDT, Dosing Weight Start Date: 09/27/23 Status: Ordered Completed/Discontinued Medications Medication Drug Class(es) Dates Sig (Normalized) Sig (Original) acetaminophen 500 mg oral tablet (20 sources) Start: 11-23-2023 End: 11-23-2023 take 1 dose by mouth once as needed for pain 1,000 mg, ORAL, PRE-OP ONCE, 1 dose, On [facility] 11/23/23 at 0900, If ordered PRN for pain, patient/guardian may elect to receive this medication for higher pain levels INSTEAD of the opioid, if preferred: Yes, Preprocedure Start: 10-23-2023 take 1 tablet by brad th every six hours acetaminophen (TYLENOL) 500 MG tablet Take 1 tablet by mouth every 6 hours 10/23/2023 Active End: 11-06-2023 acetaminophen (TYLENOL ARTHR ITIS PAIN ORAL) Take by mouth three times daily as needed. 11/06/2023 Discontinued acetaminophen (T YLENOL ARTHRITIS PAIN ORAL) Take by mouth three times daily as needed. Active acetaminophen (T YLENOL ARTHRITIS PAIN ORAL) Take by mouth three times daily as needed. 0 Active Comment on above: Take by mouth three times daily as needed. [id number] 200 actuat albuterol 0.09 mg/actuat metered dose inhaler (20 sources) beta2-Adrenergic Agonist Start: 12-24-2021 End: 04-23-2022 take 2 puff(s) by inhalation every six hours as needed for wheezing ProAir HFA MDI (90 mcg/inh) inhalation aerosol 2 puff(s), Inhalation, q6hr, PRN as needed for wheezing, # 18 gram(s), 3 Refill(s), Pharmacy: [facility], 150.5, cm, 09/14/21 16:11:00 EDT, Height, kg, 12/24/21 14:47:00 EDT, Dosing Weight Start Date: 12/24/21 Stop Date: 04/23/22 Status: Ordered Start: 12-24-2021 albuterol 108 (90 Base) MCG/ACT inhaler albuterol sulfate HFA 90 mcg/actuation aerosol inhaler 12/24/2021 Active Start: 12-24-2021 End: 12-12-2022 take 2 puff(s) by inhalation every six hours as needed for wheezing albuterol HFA (PROVENTIL HFA, VENTOLIN HFA) 90 mcg/actuation inhaler INHALE 2 PUFFS EVERY 6 HOURS NEEDED FOR WHEEZING 12/24/2021 12/12/2022 Discontinued Start: 12-24-2021 albuterol 108 (90 Base) MCG/ACT inhaler albuterol sulfate HFA 90 mcg/actuation aerosol inhaler 0 12/24/2021 Active Start: 04-19-2021 End: 05-19-2021 take 2 puff(s) by inhalation every six hours as needed for wheezing ProAir HFA MDI (90 mcg/inh) inhalation aerosol 2 puff(s), Inhalation, q6hr, PRN as needed for wheezing, # 18 gram(s), 0 Refill(s), Pharmacy: [facility], 150.5, cm, 04/19/21 13:28:00 EST, Height, kg, 04/19/21 13:28:00 EST, Dosing Weight Start Date: 04/19/21 Stop Date: 05/19/21 Status: Ordered Comment on above: INHALE 2 PUFFS EVERY 6 HOURS NEEDED FOR WHEEZING baclofen 10 mg lidocaine 50 mg vaginal suppository (CPD) (20 sources) Start: 12-12-2022 End: 06-01-2023 baclofen 10 mg lidocaine 50 mg vaginal suppository (CPD) Indications: pelvic pain/muscle spasm Use 1 Suppository vaginally daily at bedtime. Unwrap and insert as directed. 30 Suppository 4 12/12/2022 06/01/2023 Discontinued Start: 12-12-2022 baclofen 10 mg lidocaine 50 mg vaginal suppository (CPD) Indications: pelvic pain/muscle spasm Use 1 Suppository vaginally daily at bedtime. Unwrap and insert as directed. 30 Suppository 4 12/12/2022 Active Comment on above: Use 1 Suppository va ginally daily at bedtime. Unwrap and insert as directed. benzoyl peroxide 50 mg/ml topical solution (2 sources) Start: 2 End: 3 benzoyl peroxide (Benzoyl Peroxide Wash) 5 % external wash Indications: Acne vulgaris Use to wash affected areas once daily in the shower. Rinse thoroughly. 236 g 3 03/08/2022 05/12/2022 Discontinued (Therapy completed) 60 actuat budesonide 0.08 mg/actuat / formoterol fumarate 0.0045 mg/actuat metered dose inhaler (20 sources) Corticosteroid, beta2-Adrenergic Agonist Start: 2 End: 3 take 2 puff(s) by mouth twice daily SYMBICORT 80-4.5 mcg/actuation inhaler INHALE 2 PUFFS BY MOUTH and into the lungs TWICE DAILY 09/14/2021 02/20/2023 Discontinued Comment on above: INHALE 2 PUFFS BY MO UTH and into the lungs TWICE DAILY 5 ml bupivacaine hydrochloride 5 mg/ml injection (4 sources) Amide Local Anesthetic Start: 5 End: 5 20 mg (4 mL), Infiltration, ONCE, 1 dose, On Elizabeth 11/21/24 at 1600 Start: 10-31-2024 End: 10-31-2024 10 mg (2 mL), Injection, ONC E, 1 dose, On [facility] 10/31/24 at 1600 Start: 11-23-2023 End: 11-23-2023 266 mg, INFILTRATION, ONCE, 1 dose, On [facility] 11/23/23 at 1000 Start: 02-20-2023 End: 02-20-2023 BUPivacaine (PF) 0.5 % (5 mg /mL) 100 mg injection calcium chloride 0.0014 meq/ml / potassium chloride 0.004 meq/ml / sodium chloride 0.103 meq/ml / sodium lactate 0.028 meq/ml injectable solution (1 source) Start: 11-23-2023 End: 11-24-2023 take 5-30 mL intravenously every hour 5-30 mL/hr, INTRAVENOUS, CONTINUOUS, Starting on Mon11/23/23 at 0830, Until Mon11/24/23 at 0303, Preprocedure CPAP/BIPAP/OTHER (20 sources) Start: 06-28-2023 End: 11-06-2023 CPAP/BIPAP/OTHER Type .CPAPSettings into a note to see current settings/supplies/DME information. 1 Each 06/28/2023 11/06/2023 Discontinued Start: 06-28-2023 End: 11-12-2050 CPAP/BIPAP/OTHER Type .CPAPS ettings into a note to see current settings/supplies/DME information. 1 Each 06/28/2023 11/12/2050 Active Start: 06-28-2023 End: 11-12-2050 CPAP/BIPAP/OTHER Type .CPAPS ettings into a note to see current settings/supplies/DME information. 1 Each 0 06/28/2023 11/12/2050 Active Start: 05-30-2023 End: 05-13-2024 CPAP/BIPAP/OTHER AutoCPAP 6- 9 cmH20. DME: [facility]. 1 Each 05/30/2023 05/13/2024 Discontinued Start: 05-30-2023 End: 10-14-2050 CPAP/BIPAP/OTHER AutoCPAP 6- 9 cmH20. DME: [facility]. 1 Each 05/30/2023 10/14/2050 Active Start: 05-30-2023 End: 10-14-2050 CPAP/BIPAP/OTHER AutoCPAP 6- 9 cmH20. DME: [facility]. 1 Each 0 05/30/2023 10/14/2050 Active Start: 05-16-2023 End: 09-29-2050 CPAP/BIPAP/OTHER Indications : MICHELLE (obstructive sleep apnea) Type .CPAPSettings into a note to see current settings/supplies/DME information. 1 Each 0 05/16/2023 09/29/2050 Active Comment on above: Type .CPAPSettings i nto a note to see current settings/supplies/DME information. AutoCPAP 6-9 cmH20. DME: [facility]. dicyclomine hydrochloride 10 mg oral capsule (5 sources) Anticholinergic Start: 2020 End: 2021 dicyclomine 10 mg oral capsule Dose : 10 mg = 1 cap(s), Oral, QID, PRN abdominal discomfort, 30 to 60 minutes before meals, # 52 cap(s), 0 Refill(s), Pharmacy: [facility], 150.5, cm, 03/10/21 14:42:00 EST, Height, kg, 03/10/21 14:42:00 EST, Dosing Weight Start Date: 03/10/21 Stop Date: 03/24/21 Status: Ordered doxepin hydrochloride 10 mg oral capsule (2 sources) Tricyclic Antidepressant Start: 2016 DOXEPIN HCL 10 MG CAPS DOXEPIN HCL [id number] Phuc White escitalopram 10 mg oral tablet (1 source) Serotonin Reuptake Inhibitor Start: 2017 End: 2019 take 1 tablet by mouth once daily escitalopram (LEXAPRO) 10 MG tablet Take 1 tablet by mouth daily 30 tablet 0 09/05/2017 05/22/2019 Discontinued (Patient Choice) iv contrast (will be provided with radiology test) (20 sources) Start: 2022 End: 2023 iv contrast (will be provided with radiology test) MRI sacral plexus Inj, intravenously, once for 1 dose. No IV access, insert saline lock prior to the beginning of sedation, infusion, injection of imaging exam. Discontinue saline lock post exam. If Pt. has a central line or IVAD, may access for administration according to line specific nursing protocol. Once exam is complete flush line and de-access according to line specific nursing protocol in the MR contrast administration guidelines link. 1 Each 02/20/2023 10/23/2023 Discontinued Start: 02-20-2023 iv contrast (w ill be provided with radiology test) MRI sacral plexus Inj, intravenously, once for 1 dose. No IV access, insert saline lock prior to the beginning of sedation, infusion, injection of imaging exam. Discontinue saline lock post exam. If Pt. has a central line or IVAD, may access for administration according to line specific nursing protocol. Once exam is complete flush line and de-access according to line specific nursing protocol in the MR contrast administration guidelines link. 1 Each 0 02/20/2023 Active Start: 12-12-2022 End: 02-20-2023 iv contrast (will be provide d with radiology test) MRI sacral plexus Inj, intravenously, once for 1 dose. No IV access, insert saline lock prior to the beginning of sedation, infusion, injection of imaging exam. Discontinue saline lock post exam. If Pt. has a central line or IVAD, may access for administration according to line specific nursing protocol. Once exam is complete flush line and de-access according to line specific nursing protocol in the MR contrast administration guidelines link. 1 Each 0 12/12/2022 02/20/2023 Discontinued Start: 12-12-2022 iv contrast (w ill be provided with radiology test) MRI sacral plexus Inj, intravenously, once for 1 dose. No IV access, insert saline lock prior to the beginning of sedation, infusion, injection of imaging exam. Discontinue saline lock post exam. If Pt. has a central line or IVAD, may access for administration according to line specific nursing protocol. Once exam is complete flush line and de-access according to line specific nursing protocol in the MR contrast administration guidelines link. 1 Each 0 12/12/2022 Active Comment on above: MRI sacral plexus In j, intravenously, once for 1 dose. No IV access, insert saline lock prior to the beginning of sedation, infusion, injection of imaging exam. Discontinue saline lock post exam. If Pt. has a central line or IVAD, may access for administration according to line specific nursing protocol. Once exam is complete flush line and de-access according to line specific nursing protocol in the MR contrast administration guidelines link. ketamine 45 mg in NaCl 0.9% 62.5 mL (KETALAR) (1 source) Start: 07-03-19 End: 07-03-19 ketamine 45 mg in NaCl 0.9% 62.5 mL (KETALAR) levothyroxine sodium 0.025 mg oral tablet (11 sources) l-Thyroxine Start: 02-11-20 End: 06-01-19 24 take 1 tablet by mouth once daily in the morning levothyroxine (SYNTHROID) 25 mcg tablet TAKE 1 TABLET BY MOUTH EVERY DAY IN THE MORNING on an empty stomach 30 MINUTES before other things or 2 (TWO) hours after other things 0 02/10/2023 06/01/2023 Discontinued Comment on above: TAKE 1 TABLET BY BRAD TH EVERY DAY IN THE MORNING on an empty stomach 30 MINUTES before other things or 2 (TWO) hours after other things 10 ml lidocaine hydrochloride 10 mg/ml injection (1 source) Antiarrhythmic, Amide Local Anesthetic Start: 11-23-19 End: 11-24-19 1-2 mg (0.1-0.2 mL), INTRADERMAL, NEEDED, 1 dose, Starting on Elizabeth 11/23/23 at 0829, Until Mon11/24/23 at 0303, See admin instructions, May use prior to starting IV, Preprocedure loratadine 10 mg oral tablet (11 sources) Start: 08-11-19 End: 04-07-19 23 take 1 tablet by mouth once daily loratadine (CLARITIN) 10 mg tablet Take 10 mg by mouth once daily. 0 08/10/2021 04/07/2022 Discontinued (Course of therapy completed) Start: 03-16-2021 End: 06-14-2021 Claritin 10 mg oral tablet D ose : 10 mg = 1 tab(s), Oral, qDay, PRN Allergy symptoms, # 90 tab(s), 0 Refill(s), Pharmacy: [facility], 150.5, cm, 03/10/21 14:42:00 EST, Height, kg, 03/10/21 14:42:00 EST, Dosing Weight Start Date: 03/16/21 Stop Date: 06/14/21 Status: Ordered Comment on above: Take 10 mg by mouth once daily. 5 ml midazolam 1 mg/ml injection (2 sources) Benzodiazepine Start: 11-23-2023 End: 11-23-2023 2 mg, INTRAVENOUS, ONCE, 1 dose, On Elizabeth 11/23/23 at 1200 Start: 07-03-2023 End: 07-03-2023 midazolam (PF) 2 mg injectio n (VERSED) MiscMED Miscellaneous Medication (8 sources) Start: 03-29-2023 MiscMED Miscellaneous Medication See Instructions, Takes 10units daily of semaglutide, 0 Refill(s), 93.1 Start Date: 03/29/23 Status: Ordered nitrofurantoin, macrocrystals 25 mg / nitrofurantoin, monohydrate 75 mg oral capsule (2 sources) Nitrofuran Antibacterial End: 05-12-2022 nitrofurantoin, macrocrystal-monohyd rate, (Macrobid) 100 MG capsule nitrofurantoin monohydrate/macrocry stals 100 mg capsule 0 05/12/2022 Discontinued (Therapy completed) OTC PRODUCT (11 sources) End: 06-01-2023 take 35 mg by mouth three times daily OTC PRODUCT Phendi 35 mg three times daily po 0 06/01/2023 Discontinued take 35 mg by mouth three times daily OTC PRODUCT Phendi 35 mg three times daily po 0 Active take 35 mg by mouth three times daily OTC PRODUCT Phendie 35 mg three times daily po 0 Active Comment on above: Phendie 35 mg three times daily po Phendi 35 mg three t imes daily po phenazopyridine hydrochloride 100 mg oral tablet (1 source) Start: End: take 1 dose by mouth once 200 mg, ORAL, PRE-OP ONCE, 1 dose, On Elizabeth 11/23/23 at 0900, Will discolor urine red/orange., Preprocedure phendimetrazine tartrate 35 mg oral tablet (15 sources) Sympathomimetic Amine Anorectic Start: End: phendimetrazine 35 mg oral tablet Dose : 35 mg = 1 tab(s), Oral, TIDAC, 0 Refill(s), 93.1 Start Date: 03/29/23 Status: Ordered Comment on above: Take 35 mg by mouth two times a day. plecanatide 3 mg oral tablet (17 sources) Start: End: take 1 tablet by mouth once daily plecanatide (TRULANCE) 3 mg tablet Take 1 tablet (3 mg) by mouth once daily. 30 tablet 2 08/23/2022 12/12/2022 Discontinued Comment on above: Take 1 tablet (3 mg) by mouth once daily. prazosin 1 mg oral capsule (2 sources) alpha-Adrenergic Elaine Start: End: prazosin 1 mg oral capsule Dose : 1 mg = 1 cap(s), Oral, qHS, Taken at bedtime to help with nightmares, # 30 cap(s), 0 Refill(s), Pharmacy: [facility], BMI 36.0-36.9,adult Severe obesity, 152.2, cm, 09/27/23 11:25:00 EDT, Height, kg, 09/27/23 11:25:00 EDT, Dosing Weight Start Date: 09/27/23 Stop Date: 10/27/23 Status: Ordered promethazine hydrochloride 12.5 mg oral tablet (1 source) Phenothiazine Start: End: 12.5 mg, ORAL, NOW, 1 dose, On Elizabeth 11/23/23 at 0900, Preprocedure scopolamine 1 mg over 3 days 1 Patch (TRANSDERM-SCOP) (1 source) Start: 024 End: scopolamine 1 mg over 3 days 1 Patch (TRANSDERM-SCOP) semaglutide (OZEMPIC) 0.25 mg or 0.5 mg (2 mg/3 mL) pen (5 sources) Start: End: semaglutide (OZEMPIC) 0.25 mg or 0.5 mg (2 mg/3 mL) pen Indications: Metabolic syndrome , Class 2 severe obesity with serious comorbidity and body mass index (BMI) of 39.0 to 39.9 in adult, unspecified obesity type Inject 0.25 mg subcutaneously one time a week. 3 mL 0 01/31/2023 02/20/2023 Discontinued Start: 01-31-2023 End: 03-02-2023 semaglutide (OZEMPIC) 0.25 m g or 0.5 mg (2 mg/3 mL) pen Indications: Metabolic syndrome , Class 2 severe obesity with serious comorbidity and body mass index (BMI) of 39.0 to 39.9 in adult, unspecified obesity type Inject 0.25 mg subcutaneously one time a week. 3 mL 0 01/31/2023 03/02/2023 Active Comment on above: Inject 0.25 mg subcu taneously one time a week. SEMAGLUTIDE ORAL (20 sources) End: take 10 [IU] by mouth every week SEMAGLUTIDE ORAL Take by mouth. 10 units sc once weekly 11/06/2023 Discontinued take 10 [IU] by mouth every week SEMAGLUTIDE ORAL Take by mouth. 10 units sc once weekly Active take 10 [IU] by mouth every week SEMAGLUTIDE ORAL Take by mouth. 10 units sc once weekly 0 Active Comment on above: Take by mouth. 10 un its sc once weekly 1000 ml sodium chloride 9 mg/ml injection (2 sources) Start: 11-23-2023 End: 11-24-2023 20 mL, INTRAVENOUS, NEEDED, Starting on Elizabeth 11/23/23 at 0829, Until 11/24/23 at 0303, See admin instructions, If no compatible primary is already running, infuse NaCl 0.9% as primary to flush tubing after non-chemotherapy, non-immunotherapy intermittent infusions. Administer at the same rate as intermittent infusion. Select the "Flush Bag" file on smart pump., Preprocedure Start: 07-03-2023 End: 07-03-2023 NaCl 0.9% iv bolus 250 mL Symbicort 80 mcg-4.5 mcg/inh Inhaler (2 sources) Start: 09-14-2021 End: 12-13-2021 take 1 dose by inhalation twice daily Symbicort 80 mcg-4.5 mcg/inh Inhaler Dose = 2 puff(s), Inhalation, BID, # 3 EA, 0 Refill(s), Pharmacy: [facility], 150.5, cm, 09/14/21 16:11:00 EDT, Height Start Date: 09/14/21 Stop Date: 12/13/21 Status: Ordered topiramate 50 mg oral tablet (10 sources) Anti-epileptic Agent Start: 04-11-2016 TOPAMAX 50 MG TABS TOPIRAMATE [id number] Savannah Santizo traZODone hydrochloride 50 mg oral tablet (1 source) Serotonin Reuptake Inhibitor Start: 09-04-2017 End: 05-22-2019 take 1 tablet by mouth once daily as needed for sleep traZODone (DESYREL) 50 MG tablet Take 1 tablet by mouth nightly as needed for Sleep (may repeat x1 if needed.) 30 tablet 0 09/04/2017 05/22/2019 Discontinued (Medication Clarified) tretinoin 1 mg/ml topical cream (20 sources) Retinoid Start: 10-16-2023 End: 11-15-2023 tretinoin (Retin-A) 0.1 % cream Indications: Acne vulgaris Apply pea size amount to entire face M, W, F at bedtime and increase to every night as skin tolerates 90 g 1 10/16/2023 11/15/2023 Discontinued (Ineffective) Start: 08-02-2023 End: 10-16-2023 tretinoin (Retin-A) 0.025 % cream Indications: Acne vulgaris Apply pea size amount to entire face M, W, F at bedtime and increase to every night as skin tolerates 45 g 11 08/02/2023 10/16/2023 Discontinued (Ineffective) Start: 05-16-2022 End: 08-02-2023 tretinoin (Retin-A) 0.025 % cream Indications: Acne vulgaris Apply a thin layer to affected areas every third night, increase to nightly as tolerated. 45 g 0 05/16/2022 08/02/2023 Discontinued (Reorder) Start: 03-08-2022 End: 05-12-2022 tretinoin (Retin-A) 0.025 % cream Indications: Acne vulgaris Apply a thin layer to affected areas every third night, increase to nightly as tolerated. 45 g 3 03/08/2022 05/12/2022 Discontinued (Therapy completed) Start: 10-14-2021 End: 01-10-2022 tretinoin (RETIN-A) 0.025 % topical cream Apply pea sized amount to entire face once a day at night 45 g 2 10/14/2021 01/10/2022 Discontinued Comment on above: Apply pea sized amou nt to entire face once a day at night 1 ml triamcinolone acetonide 40 mg/ml injection (20 sources) Corticosteroid Start: 11-21-2024 End: 11-21-2024 40 mg, Other, ONCE, 1 dose, On Elizabeth 11/21/24 at 1600 Start: 07-03-2023 triamcinolone (Kenalog) 0.1 % ointment Indications: Cheilitis apply to lips BID x 5-7 days then prn flares. 30 g 07/03/2023 Active Start: 06-27-2022 triamcinolone (Kenalog) 0.1 % cream Indications: Other atopic dermatitis Apply to affected areas BID x 2 weeks Stop using when clear. Repeat as needed for flares. Do not use on face, armpits 454.6 g 2 06/27/2022 Active Start: 06-06-2022 triamcinolone (Kenalog) 0.1 % cream Apply to affected areas BID x 2 weeks Stop using when clear. Repeat as needed for flares. Do not use on face, armpits, groin. 80 g 3 06/06/2022 Active Start: 03-15-2022 End: 04-14-2022 triamcinolone acetonide (TYRON ALOG) 0.1 % cream Apply to affected area twice daily. 45 g 0 03/15/2022 04/07/2022 Discontinued (Course of therapy completed) Comment on above: Apply to affected ar ea twice daily. Problems Active Problems Problem Classification Problem Date Documented Da te Episodic/Chronic Abdominal pain (20 sources) Pain in female pelvis; Translations: [Pelvic and perineal pain] Onset: 03-16-2021 03-16-2021 Episodic Allergic reactions (20 sources) Atopic dermatitis; Translations: [Other atopic dermatitis] Onset: 12-17-2007 09-07-2018 Chronic Anxiety disorders (20 sources) Anxiety disorder; Translations: [Anxiety] Onset: 10-23-2014 Resolved: 03-04-2021 09-02-2017 Chronic Anxiety disorders (1 source) Anxiety disorder due to a general medical condition; Translations: [Anxiety disorder due to known physiological condition] 04-28-2023 Episodic Chronic kidney disease (2 sources) Chronic kidney disease, stage 4 (severe); Translations: [CKD STAGE 4 SEVERE] Onset: 11-12-2024 Chronic Contraceptive and procreative management (4 sources) Oral contraception; Translations: [Encounter for surveillance of contraceptive pills] Episodic Diseases of mouth; excluding dental (1 source) Cheilitis; Translations: [Diseases of lips] 07-03-2023 Episodic Disorders of lipid metabolism (20 sources) Pure hypercholesterolemia; Translations: [Dyslipidemia] Onset: 11-06-2023 08-12-2022 Chronic Disorders of teeth and jaw (20 sources) Defective dental congregational; Translations: [Unsatisfactory congregational of tooth, unspecified] Onset: 11-08-2022 11-08-2022 Episodic Essential hypertension (3 sources) Hypertensive disorder; Translations: [Essential (primary) hypertension] Onset: 08-26-2024 01-09-2023 Chronic Fever of unknown origin (1 source) Fever; Translations: [Fever, unspecified] Episodic Gastrointestinal hemorrhage (11 sources) Rectal hemorrhage 01-23-2024 Episodic Headache; including migraine (20 sources) Migraine; Translations: [Migraine, unspecified, not intractable, without status migrainosus] Onset: 08-20-2013 03-08-2021 Chronic Hemorrhoids (20 sources) External hemorrhoids; Translations: [Hemorrhoids] 01-23-2024 Episodic Hepatitis (3 sources) Chronic hepatitis C; Translations: [Chronic viral hepatitis C] Chronic Hepatitis (6 sources) Viral hepatitis C; Translations: [Finding of Hepatitis C status] 10-21-2019 Episodic Immunizations and screening for infectious disease (20 sources) Rheumatoid factor positive; Translations: [Patient encounter status] 03-26-2021 Episodic Malaise and fatigue (20 sources) Fatigue; Translations: [Other fatigue] Episodic Menstrual disorders (10 sources) Dysmenorrhea; Translations: [Dysmenorrhea, unspecified] Onset: 11-22-2023 04-28-2023 Chronic Miscellaneous mental health disorders (4 sources) Chronic insomnia; Translations: [Psychophysiologic insomnia] 09-27-2022 Chronic Mood disorders (20 sources) Bipolar I disorder; Translations: [Severe recurrent major depression without psychotic features] Onset: 06-10-2008 Resolved: 03-04-2021 08-29-2017 Chronic Mycoses (1 source) Candidiasis; Translations: [Candidiasis, unspecified] Episodic Other aftercare (1 source) H/O: high risk medication; Translations: [Other ferry terminal agent (current) drug therapy] Episodic Other aftercare (10 sources) Patient encounter status; Translations: [Other [facility] (current) drug therapy] 09-26-2022 Episodic Other aftercare (11 sources) Long-term current use of drug therapy; Translations: [Encounter for therapeutic drug level monitoring] 10-23-2023 Episodic Other bone disease and musculoskeletal deformities (20 sources) Segmental and somatic dysfunction; Translations: [Segmental and somatic dysfunction of sacral region] Onset: 04-21-2016 04-21-2016 Episodic Other connective tissue disease (20 sources) Fibromyalgia; Translations: [Fibromyalgia] Onset: 08-09-2018 08-29-2019 Episodic Other connective tissue disease (1 source) Other specified disorders of muscle; Translations: [OTHER SPECIFIED DISORDERS OF MUSCLE] Onset: 01-06-2025 Episodic Other diseases of bladder and urethra (1 source) Urethritis; Translations: [Other specified disorders of urethra] 05-13-2024 Episodic Other female genital disorders (3 sources) Vaginal discharge; Translations: [Other specified noninflammatory disorders of vagina] Episodic Other female genital disorders (2 sources) Vaginal irritation; Translations: [Other specified noninflammatory disorders of vagina] Episodic Other female genital disorders (2 sources) Vulval irritation; Translations: [Other specified noninflammatory disorders of vulva and perineum] Episodic Other female genital disorders (3 sources) Lesion of vulva; Translations: [Other specified noninflammatory disorders of vulva and perineum] Episodic Other gastrointestinal disorders (1 source) Irritable bowel syndrome characterized by constipation; Translations: [Irritable bowel syndrome with constipation] 04-28-2023 Chronic Other gastrointestinal disorders (1 source) Chronic idiopathic constipation; Translations: [Chronic idiopathic constipation] Onset: 10-15-2024 Chronic Other gastrointestinal disorders (2 sources) Irritable bowel syndrome with constipation; Translations: [Irritable bowel syndrome with constipation] Onset: 10-28-2024 Chronic Other gastrointestinal disorders (20 sources) Constipation; Translations: [Constipation, unspecified] 09-07-2018 Episodic Other gastrointestinal disorders (2 sources) Slow transit constipation; Translations: [Slow transit constipation] 09-22-2022 Episodic Other gastrointestinal disorders (1 source) Dysphagia; Translations: [Dysphagia, unspecified] 09-29-2022 Episodic Other hereditary and degenerative nervous system conditions (2 sources) Restless legs; Translations: [Restless legs syndrome] 09-27-2022 Chronic Other infections; including parasitic (20 sources) History of chlamydial infection 03-11-2021 Episodic Other infections; including parasitic (20 sources) History of hepatitis C 08-12-2022 Episodic Other inflammatory condition of skin (3 sources) Itching of skin; Translations: [Pruritus, unspecified] 09-26-2022 Episodic Other inflammatory condition of skin (1 source) Intertrigo; Translations: [Erythema intertrigo] 11-10-2022 Episodic Other liver diseases (5 sources) Inflammatory disease of liver 08-29-2019 Chronic Other liver diseases (1 source) Fatty (change of) liver, not elsewhere classified; Translations: [Fatty (change of) liver, not elsewhere classified] Onset: 05-27-2024 Chronic Other lower respiratory disease (1 source) Snoring; Translations: [Snoring] 09-27-2022 Episodic Other lower respiratory disease (20 sources) Dyspnea 09-18-2021 Episodic Other lower respiratory disease (20 sources) Wheezing 08-12-2022 Episodic Other nervous system disorders (10 sources) Cervical radiculopathy; Translations: [Radiculopathy, cervical region] Onset: 04-21-2016 04-21-2016 Chronic Other nervous system disorders (20 sources) Chronic pain syndrome; Translations: [Chronic pain syndrome] Chronic Other nervous system disorders (20 sources) Chronic pain; Translations: [Other chronic pain] Onset: 05-17-2022 Chronic Other nervous system disorders (2 sources) Central sensitization; Translations: [Other chronic pain] Chronic Other nervous system disorders (1 source) Sleep-wake schedule disorder, delayed phase type; Translations: [Circadian rhythm sleep disorder, delayed sleep phase type] 09-27-2022 Chronic Other nervous system disorders (2 sources) Lumbosacral plexus neuropathy; Translations: [Lumbosacral plexus disorders] 02-20-2023 Chronic Other nervous system disorders (1 source) Chronic pain syndrome; Translations: [Chronic pain syndrome] Onset: 12-08-2022 Chronic Other nervous system disorders (3 sources) Other chronic pain; Translations: [Chronic bilateral low back pain with bilateral sciatica] Onset: 05-17-2022 Chronic Other nervous system disorders (1 source) Acute postoperative pain; Translations: [Other acute postprocedural pain] 10-30-2023 Episodic Other non-traumatic joint disorders (8 sources) Pain in right shoulder; Translations: [Pain in joint, shoulder region] Onset: 04-11-2016 04-11-2016 Episodic Other non-traumatic joint disorders (2 sources) Pain in right knee; Translations: [Pain in joint, lower leg] Onset: 10-23-2024 10-23-2024 Episodic Other non-traumatic joint disorders (1 source) Pain in left knee; Translations: [Pain in left knee] Onset: 10-23-2024 Episodic Other nutritional; endocrine; and metabolic disorders (13 sources) Body mass index 30+ - obesity; Translations: [Body mass index (BMI) 37.0-37.9, adult] Onset: 11-06-2023 Chronic Other nutritional; endocrine; and metabolic disorders (20 sources) Obesity; Translations: [Obesity, unspecified] Chronic Other nutritional; endocrine; and metabolic disorders (20 sources) Insulin resistance; Translations: [Metabolic syndrome] Onset: 11-06-2023 Chronic Other nutritional; endocrine; and metabolic disorders (1 source) Drug-induced obesity; Translations: [Drug-induced obesity] 09-27-2022 Chronic Other nutritional; endocrine; and metabolic disorders (20 sources) Severe obesity; Translations: [Morbid (severe) obesity due to excess calories] 08-12-2022 Chronic Other nutritional; endocrine; and metabolic disorders (2 sources) Metabolic syndrome X; Translations: [Metabolic syndrome] 01-09-2023 Chronic Other nutritional; endocrine; and metabolic disorders (2 sources) Morbid (severe) obesity due to excess calories; Translations: [Morbid (severe) obesity due to excess calories] Onset: 05-02-2023 Chronic Other nutritional; endocrine; and metabolic disorders (9 sources) Hypomagnesemia; Translations: [Hypomagnesemia] 05-17-2024 Chronic Other nutritional; endocrine; and metabolic disorders (1 source) Obesity, unspecified; Translations: [Obesity (BMI 30-39.9)] Onset: 11-06-2023 Chronic Other nutritional; endocrine; and metabolic disorders (20 sources) Weight gain 06-25-2021 Episodic Other skin disorders (20 sources) Acne vulgaris; Translations: [Acne vulgaris] Onset: 01-22-2024 Episodic Other skin disorders (1 source) Skin lesion; Translations: [Disorder of the skin and subcutaneous tissue, unspecified] 09-26-2022 Episodic Other skin disorders (1 source) Folliculitis; Translations: [Follicular disorder, unspecified] 11-10-2022 Episodic Other skin disorders (1 source) Eruption; Translations: [Rash and other nonspecific skin eruption] 12-26-2022 Episodic Other skin disorders (1 source) Milia; Translations: [Epidermal cyst] 05-30-2023 Episodic Other skin disorders (11 sources) Acne; Translations: [Acne] Onset: 11-15-2023 02-19-2024 Episodic Other skin disorders (1 source) Acne vulgaris; Translations: [Acne vulgaris] Onset: 01-22-2024 Episodic Other skin disorders (8 sources) Loss of hair 05-17-2024 Episodic Other upper respiratory infections (6 sources) Sore throat symptom 03-14-2023 Episodic Prolapse of female genital organs (3 sources) Pelvic muscle wasting; Translations: [PELVIC MUSCLE WASTING] Onset: 10-14-2024 Chronic Residual codes; unclassified (1 source) Parasomnia; Translations: [Parasomnia, unspecified] 09-27-2022 Chronic Residual codes; unclassified (1 source) Nocturnal sleep-related eating disorder; Translations: [Other sleep disorders] 09-27-2022 Chronic Residual codes; unclassified (20 sources) Obstructive sleep apnea syndrome; Translations: [Obstructive sleep apnea (adult) (pediatric)] Onset: 05-16-2023 01-09-2023 Chronic Residual codes; unclassified (2 sources) Obstructive sleep apnea (adult) (pediatric); Translations: [MICHELLE (obstructive sleep apnea)] Onset: 03-22-2023 Chronic Residual codes; unclassified (1 source) Primary central sleep apnea; Translations: [CSA (central sleep apnea)] Onset: 03-22-2023 Chronic Residual codes; unclassified (5 sources) Sleep apnea 08-21-2024 Chronic Residual codes; unclassified (20 sources) Bilateral lower limb edema 08-29-2019 Episodic Residual codes; unclassified (20 sources) Chronic pain 08-29-2019 Episodic Residual codes; unclassified (20 sources) Insomnia; Translations: [Insomnia, unspecified] 04-07-2021 Episodic Residual codes; unclassified (20 sources) Tobacco use and exposure - finding; Translations: [Tobacco use] 11-08-2018 Episodic Residual codes; unclassified (1 source) Disturbance in sleep behavior; Translations: [Sleep disorder, unspecified] 09-27-2022 Episodic Residual codes; unclassified (20 sources) Edema of lower extremity 06-27-2022 Episodic Residual codes; unclassified (1 source) Postoperative state; Translations: [Other specified postprocedural states] 12-29-2023 Episodic Residual codes; unclassified (3 sources) Pain; Translations: [Pain, unspecified] 11-06-2024 Episodic Residual codes; unclassified (1 source) Pain, unspecified; Translations: [Pain, unspecified] Onset: 11-06-2024 Episodic Residual codes; unclassified (1 source) Localized edema; Translations: [Localized edema] Episodic Spondylosis; intervertebral disc disorders; other back problems (6 sources) Arthropathy of cervical spine facet joint; Translations: [Spondylosis without myelopathy or radiculopathy, cervical region] Onset: 10-31-2024 Chronic Spondylosis; intervertebral disc disorders; other back problems (20 sources) Neck pain; Translations: [Spinal stenosis of lumbar region] Onset: 10-23-2014 Resolved: 03-04-2021 05-16-2016 Episodic Substance-related disorders (20 sources) Opioid dependence; Translations: [Polysubstance abuse ] Onset: 12-16-2014 Resolved: 03-04-2021 09-02-2017 Chronic Thyroid disorders (12 sources) Subclinical hypothyroidism; Translations: [Hypothyroidism] 02-06-2024 Chronic Thyroid disorders (18 sources) Disorder of thyroid gland; Translations: [Disorder of thyroid, unspecified] Onset: 05-02-2023 04-17-2023 Episodic Unclassified (1 source) Unknown / UNK(Unknown) Onset: 02-23-2014 Unclassified (2 sources) Aftercare ; Translations: [Encounter for other orthopedic aftercare] Onset: 10-03-2016 10-12-2016 Unclassified (18 sources) Long-term current use of stimulant 02-10-2023 Unclassified (19 sources) Patient encounter status 12-10-2022 Unclassified (3 sources) Serum T4 above reference range 03-14-2023 Unclassified (2 sources) APPOINTMENT CANCELLED 04-27-2023 Unclassified (1 source) Insulin resistance; Translations: [Insulin resistance] Onset: 11-06-2023 Unclassified (1 source) Drug monitoring done 12-04-2024 Unclassified (2 sources) PELVIC AND PERINEAL PAIN UNSP SIDE; Translations: [PELVIC AND PERINEAL PAIN UNSP SIDE] Onset: 01-06-2025 Viral infection (20 sources) Herpes simplex of female genitalia; Translations: [Genital herpes simplex] 08-29-2019 Chronic Viral infection (8 sources) Genital warts; Translations: [Anogenital (venereal) warts] Onset: 05-30-2023 05-30-2023 Episodic Past or Other Problems Problem Classification Problem Date Documented Da te Episodic/Chronic Administrative/social admission (4 sources) Persons encountering health services in other specified circumstances; Translations: [Education and/or schooling finding] Onset: 3 08-29-2023 Episodic Allergic reactions (20 sources) Contact dermatitis caused by chemical; Translations: [Allergic contact dermatitis due to metals] Onset: 7 Resolved: 8 04-17-2017 Episodic Anal and rectal conditions (20 sources) Anal fissure; Translations: [Anal fissure, unspecified] Onset: 6 09-07-2018 Episodic E Codes: Natural/environment (20 sources) Bitten or stung by nonvenomous insect and other nonvenomous arthropods, initial encounter; Translations: [Insect bite, nonvenomous, of other, multiple, and unspecified sites, without mention of infection] Onset: 8 Resolved: 1 03-03-2011 Episodic Fluid and electrolyte disorders (20 sources) Hypokalemia; Translations: [Hyponatremia] Onset: 5 02-10-2023 Episodic Genitourinary symptoms and ill-defined conditions (7 sources) Difficulty passing urine; Translations: [Dysuria] Onset: 4 Episodic Joint disorders and dislocations; trauma-related (20 sources) Dislocation of temporomandibular joint; Translations: [Dislocation of jaw, unspecified side, initial encounter] Onset: 6 09-07-2018 Episodic Nausea and vomiting (1 source) Nausea with vomiting, unspecified; Translations: [Nausea with vomiting, unspecified] Onset: 5 Episodic Neoplasms of unspecified nature or uncertain behavior (4 sources) Neoplasm of uncertain behavior of skin; Translations: [Neoplasm of uncertain behavior of skin] Onset: 4 12-26-2022 Episodic Nutritional deficiencies (20 sources) Vitamin D deficiency; Translations: [Vitamin D deficiency, unspecified] Onset: 9 Resolved: 3 09-07-2018 Chronic Other aftercare (4 sources) Strain of unspecified muscle, fascia and tendon at shoulder and upper arm level, left arm, subsequent encounter; Translations: [Strain of unspecified muscle, fascia and tendon at shoulder and upper arm level, left arm, subsequent encounter] Onset: 7 05-16-2016 Episodic Other aftercare (4 sources) Other ferry terminal agent (current) drug therapy; Translations: [Other mcfp (current) drug therapy] Onset: 4 Episodic Other and unspecified benign neoplasm (2 sources) Other benign neoplasm of skin, unspecified; Translations: [Other benign neoplasm of skin, unspecified] Onset: 4 Episodic Other bone disease and musculoskeletal deformities (6 sources) Snapping scapula; Translations: [Other symptoms and signs involving the musculoskeletal system] Onset: 7 04-15-2016 Episodic Other connective tissue disease (11 sources) Biceps tendinitis; Translations: [Impingement syndrome of left shoulder] Onset: 7 07-11-2016 Episodic Other connective tissue disease (1 source) Neuralgia and neuritis, unspecified; Translations: [Neuropathic pain] Onset: 3 Episodic Other connective tissue disease (1 source) Fibromyalgia; Translations: [Fibromyalgia] Onset: 3 Episodic Other connective tissue disease (20 sources) Ganglion cyst; Translations: [Ganglion, unspecified site] Onset: 9 Resolved: 8 04-17-2017 Episodic Other gastrointestinal disorders (2 sources) Constipation, unspecified; Translations: [CONSTIPATION UNSPECIFIED] Onset: 5 Episodic Other infections; including parasitic (20 sources) History of sexually transmitted disease; Translations: [Personal history of other infectious and parasitic diseases] Onset: 8 09-07-2018 Episodic Other infections; including parasitic (20 sources) Infestation by Sarcoptes scabiei nguyen hominis; Translations: [Scabies] Onset: 8 Resolved: 1 03-03-2011 Episodic Other inflammatory condition of skin (20 sources) Pruritus of skin; Translations: [Pruritus, unspecified] Onset: 7 Resolved: 8 04-17-2017 Episodic Other inflammatory condition of skin (20 sources) Seborrheic dermatitis; Translations: [Seborrheic dermatitis, unspecified] Onset: 9 Resolved: 5 12-16-2014 Episodic Other inflammatory condition of skin (1 source) Pruritus of vulva; Translations: [Pruritus vulvae] 08-21-2023 Episodic Other non-traumatic joint disorders (18 sources) Impingement syndrome of shoulder region; Translations: [Pain in left shoulder] Onset: 7 08-26-2016 Episodic Other non-traumatic joint disorders (6 sources) Pain in left shoulder; Translations: [Pain in left shoulder] Onset: 7 04-13-2016 Episodic Other non-traumatic joint disorders (20 sources) Hip pain; Translations: [Pain in right hip] Onset: 3 06-16-2022 Episodic Other screening for suspected conditions (not mental disorders or infectious disease) (20 sources) Other specified abnormal findings of blood chemistry; Translations: [Patient encounter status] Onset: 3 Episodic Residual codes; unclassified (1 source) Tobacco use; Translations: [Tobacco use] Onset: 9 Episodic Residual codes; unclassified (1 source) Early satiety; Translations: [Early satiety] Onset: 5 Episodic Screening and history of mental health and substance abuse codes (20 sources) H/O: psychiatric disorder; Translations: [Personal history of other mental and behavioral disorders] Onset: 8 Resolved: 1 03-09-2021 Episodic Sprains and strains (20 sources) Strain of unspecified muscle, fascia and tendon at shoulder and upper arm level, left arm, initial encounter; Translations: [Superior glenoid labrum lesion of left shoulder, initial encounter] Onset: 7 04-15-2016 Episodic Unclassified (1 source) WITHDRAWAL OF OPIATES Onset: 4 Unclassified (2 sources) Insulin resistance; Translations: [Insulin resistance, unspecified] Results Test Name Value Interpretation Reference Range Facility MR/PATVIRGILIOon 01-23-2025 MR/PAT.[facility] Medical Records Department [address] [place] [address] PAT - Anesthesia 01/23/25 1650 MR#: [id number] Acct: [id number] Name: MARIA T WYNNE Rep #: [id number] : 1995 30 From: Ronny Verdugo MD PCP: Dr. 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 When Was Last Pacemaker Check QUESTION #4 FULL TEXT: You/Your Family Experience fever (hyperthermia) with Anesthesia Last Oral Intake Last Oral intake: Last Oral Intake NPO since Meds taken in AM with sips of water? Meds patient instructed to take am of surgery PONV PONV - deputy register of deeds: PONV - deputy register of deeds Female Yes 01/23/25 11:24 HX of Motion Sickness Yes 01/23/25 11:24 HX of N/V After Surgery No 01/23/25 11:24 Non-Smoker No 01/23/25 11:24 Duration of Surgery greater No 01/23/25 11:24 than 60 minutes Number of Risk Factors 2 01/23/25 11:24 PONV Score Moderate Risk 01/23/25 11:24 Height Weight Height Weight: Anesthesia: Height Weight Height 4 ft 11 in 12/30/24 14:38 Respiratory Assessment Respiratory Assessment - deputy register of deeds: Respiratory Tract Infection Hx - deputy register of deeds Hx Respiratory Tract Infection No 01/23/25 11:24 STOP Sleep Apnea STOP Sleep Apnea - deputy register of deeds: STOP Sleep Apnea - deputy register of deeds Hx Hypertension No 01/23/25 11:24 Hx Sleep Apnea Yes: NON COMPLIANT 01/23/25 11:24 CPAP No 01/23/25 11:24 BIPAP No 01/23/25 11:24 Do you snore loudly (louder than talking or can be heard Do you often feel tired/ fatigued/ sleepy during daytime? Has anyone observed you stop breathing during sleep? STOP Results Positive 01/23/25 11:24 QUESTION #5 FULL TEXT : Do you snore loudly (louder than talking or can be heard through closed doors)? 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 Specify any problems Hx of Preganancy in last 3 No 01/23/25 11:24 Months Nurse Filling Out Transfusion FELICIANO 01/23/25 11:24 Questions: Date: 01/23/25 01/23/25 11:24 Time: 11:01/23/25 11:24 Patient unable to answer at this time (ie. confused, unrespo /Reproduction History /Reproductive History - deputy register of deeds: /Reproductive Hx- deputy register of deeds Hx Now No 01/23/25 11:24 Gestational Age (in weeks): EDC: Hx Hx Para Hx Section SAB No 01/23/25 11:24 Does the father of the baby or his family experience fever w Father of the baby Malignant Hypertension history comment [facility] Medical History (Updated 01/23/25 @ 11:24 by Kortney Montiel) Bipolar disorder Rash Dietary restriction Heartburn Sleep apnea Wears contact lenses Wears glasses Loose, teeth Thyroid disease Arthritis High cholesterol Restless legs Injury of back History of IBS Smoker TMJ syndrome Rectal bleeding Insulin resistance Insomnia Subclinical hypothyroidism Substance abuse GERD (gastroesophageal reflux disease) Hepatitis Migraines Fibromyalgia Low potassium syndrome Vitamin deficiency Carpal tunnel syndrome Seasonal allergies Home Medications ???Medication ???Instructions ???Recorded ???Last Taken ???Type buprenorphine 2.9 mg-naloxone 0.71 2 tab sublingual QDAY 03/26/24 0 10/01/24 History mg sublingual tablet cholecalciferol (vitamin D3) 50 50 (more content not included)... Normal [facility] Hepatobilliary Img w/Pharm I nton 01-10-2025 Hepatobilliary Img w/Pharm Int [facility] Imaging Services [address] [place] [address] [id number] Hepatobilliary Img w/Pharm Int MR#: [id number] Acct: [id number] Name: MARIA T WYNNE Rep #: [id number] : 1995 F 29 From: Jonathan jain MD PCP: Dr. Michele Bell, DO Status: REG CLI Study: Hepatobilliary Img w/Pharm Int Date of Exam: 1 Exam# [id number] Ordering Dr: Neeru Georges PROCEDURE: HEPATOBILLIARY IMG W/PHARM INT 01/10/2025 REASON FOR EXAM: EPIGASTRIC PAIN TECHNIQUE: Procedure Code: NMHBIWP Modality: NM Procedure: HEPATOBILLIARY IMG W/PHARM INT Intravenous Choletec with planar imaging of the abdomen. 1.8 mcg Kinevac intravenously approximately 60 minutes after the radiopharmaceutical with additional anterior imaging and a region of interest drawn around the gallbladder to calculate a time-activity curve. RADIOPHARMACEUTICAL: Mebrofenin DOSE 5.4mCi COMPARISON: None FINDINGS: There is good uptake of the radiopharmaceutical by the liver. Normal gallbladder visualization with the gallbladder identified by 30 minutes. Gallbladder Ejection Fraction: 4 % (Normal is >35%) NM/Hepatobilliary Img w/Pharm Int IMPRESSION: Abnormal gallbladder ejection fraction at 4%. Reading Location: [id number] CC: ELIANA Georges; Dr. Michele Bell DO Bus Person: Signed Normal [facility] Gastroenterology Visit Repor ton 12-30-2024 Gastroenterology Visit Report [facility] Gastroenterology [address] [place] [address] OFFICE VISIT Date of Service: 12/30/24 MR#: [id number] Acct: [id number] Name: MARIA T WYNNE Rep #: [id number] : 1995 Provider: ELIANA barnard Age/Sex: 29/F Location: [facility] Status: Signed Intake Vital Signs 10/15/24 14:29 12/30/24 14:38 Height 4 ft 11 in 4 ft 11 in Weight: 190 lb 8 oz 194 lb 4 oz BMI 38.5 39.2 BP 98/74 112/80 Respiration 18 16 Pulse 81 95 Temp 97.4 F L 98.0 F Temp Source Temporal Temporal Pulse Oximetry (%) 93 93 Oxygen Delivery Method room air room air Intake Visit Reasons: F/u Constipation/ IBS Chief Complaint: constipation Fire Official Required: No Accompanied by: Self Is patient in pain?: No Allergies clindamycin Allergy (Mild, Verified 12/30/24 14:38) Unknown nickel (Nickel) Allergy (Verified 12/30/24 14:38) Unknown Penicillins Allergy (Verified 12/30/24 14:38) Shortness of breath naproxen Adverse Reaction (Intermediate, Verified 12/30/24 14:38) Other amoxicillin Adverse Reaction (Mild, Verified 12/30/24 14:38) Rash lubiprostone (From Amitiza) Adverse Reaction (Mild, Verified 12/30/24 14:38) Rash dicyclomine (From Bentyl) Adverse Reaction (Verified 12/30/24 14:38) cramps, constipation, chest pain doxycycline Adverse Reaction (Verified 12/30/24 14:38) Vomiting metronidazole (From Flagyl) Adverse Reaction (Verified 12/30/24 14:38) Upset Stomach sulfamethoxazole (From Bactrim) Adverse Reaction (Verified 12/30/24 14:38) Upset Stomach trimethoprim (From Bactrim) Adverse Reaction (Verified 12/30/24 14:38) Upset Stomach Medications ???Medication ???Instructions ???Recorded ???Confirmed ???Type buprenorphine 2.9 mg-naloxone 0.71 2 tab sublingual QDAY 03/26/24 1 History mg sublingual tablet cholecalciferol (vitamin D3) 50 50 mcg PO QDAY 03/26/24 12/30/24 H istory mcg (2,000 unit) capsule clonidine HCl 0.1 mg tablet 0.1 mg PO QHS 03/26/24 12/30/24 Hi story ezetimibe 10 mg tablet 10 mg PO QDAY 03/26/24 12/30/24 Hi story hydrochlorothiazide 25 mg tablet 50 mg PO BID 03/26/24 12/30/24 His tory hydroxyzine HCl 50 mg tablet 100 mg PO QHS 03/26/24 12/30/24 Hi story methocarbamol 750 mg tablet 750 mg PO TID 03/26/24 12/30/24 Hi story pregabalin 300 mg capsule 300 mg PO QHS 03/26/24 12/30/24 Hi story lactulose 10 gram/15 mL oral 30 g (45 mL) PO TID constipation 0 04/24/24 12/30/24 Rx solution #946 mL ondansetron 4 mg disintegrating 4 mg PO .COMPLEX #15 tabs 05/22/24 12/30/24 Rx tablet acyclovir 400 mg tablet 800 mg PO DAILY 07/08/24 12/30/24 History biotin 2,500 mcg capsule 2,500 mcg PO DAILY 07/08/24 History calcium citrate 500 mg PO DAILY 07/08/24 12/30/24 History clobetasol 0.05 % topical ointment 1 applic topical BID 07/08/24 History metformin 500 mg tablet,extended 1,000 mg PO BID 07/08/24 12/30/24 History release 24 hr norethindrone 1 mg-ethinyl 1 tab PO DAILY 07/08/24 12/30/24 H istory estradiol 20 mcg (21)-iron 75 mg (7) tablet (Myra Fe 04/01 ()) polyethylene glycol 3350 17 17 g PO TID 07/08/24 12/30/24 Hist ory gram/dose oral powder pregabalin 150 mg capsule 150 mg PO BID 07/08/24 12/30/24 Hi story tenapanor 50 mg tablet (Ibsrela) 50 mg PO BID #60 tabs 08/06/24 Rx ferrous sulfate 325 mg (65 mg 325 mg PO QDAY 10/15/24 12/30/24 H istory iron) tablet omeprazole 40 mg capsule,delayed 40 mg PO BID #180 caps 10/15/24 Rx release potassium chloride 20 mEq oral 20 meq PO BID 10/15/24 12/30/24 Hi story packet PFSH Medical History Wears contact lenses Wears glasses Loose, teeth Thyroid disease Arthritis High cholesterol Restless legs Injury of back History of IBS Smoker TMJ syndrome Rectal bleeding Insulin resistance Insomnia Subclinical hypothyroidism Substance abuse GERD (gastroesophageal reflux disease) Hepatitis Migraines Fibromyalgia Low potassium syndrome Vitamin deficiency Carpal tunnel syndrome Seasonal allergies Surgical History History of colonoscopy History of shoulder surgery History of History of appendectomy HISTORY NECK INJECTIONS Family History Father Diabetes Grandfather Diabetes Grandmother Diabetes Other Alcoholism Allergies Anxiety Anxiety and depression Arthritis Asthma defect Bowel disease CVA (cerebral vascular accident) Heart disease High cholesterol Hypertension Kidney disease Liver disease Mental disorder Myocardial infarction Psychiatric care Social History (Revie (more content not included)... Normal [facility] Abigail 12-14-2024 Free Insulin 29 uU/mL High [facility] Comment on above: Result Comment: Refe rence Range: Pubertal Children and Adults (fasting): 0 - 17 Performed By: #### M ALBR #### [address] [address] Total Insulin 29 uU/mL Normal [facility] Comment on above: Result Comment: Non- Diabetic: In the absence of insulin- binding antibodies, the free and total insulin assays are equivalent. However, this assay is intended for use in diabetics with insulin autoantibody present. Measurement is performed on acid-treated samples and, therefore, the sensitivity and absolute values by this method may differ from our direct insulin ICMA. Insulin Dependent Diabetic Patients: Free Insulin levels vary depending on the capacity and affinity of circulating insulin-binding antibodies and the dose of insulin given to the patient. Total insulin levels represent free insulin and antibody bound insulin fractions. This test was developed and its performance characteristics determined by [facility]. It has not been cleared or approved by the Food and Drug Administration. Performed At: [facility] [address] [place] [address] [id number] Felicia Feliciano MD Ph:[phone] Performed By: #### M ALBR #### [address] [address] .Hexagonal Phase Phospholipi d [id number] 12-13-2024 Hex Phase Phospho 6 second(s) Normal 0-11 [facility] Comment on above: Result Comment: Perf ormed At: [facility] [id number] Dillon Arguelles MD Ph:[phone] Performed By: #### 1 52932, 868297, 463063, 971932 #### [facility] [address] [place] [address] .PTT-LA Incub Mix [id number] PTT-LA Incub Mix 43.7 second(s) High 0.0-40.5 [facility] Comment on above: Result Comment: Perf ormed At: [facility] [address] [id number] Dillon Arguelles MD Ph:[phone] Performed By: #### 1 88184, 661858, 353074, 437386 #### [place] [address] [place] [address] .PTT-LA Mix [id number] PTT-LA Mix 39.1 second(s) Normal 0.0-40.5 [facility] Comment on above: Result Comment: Perf ormed At: [facility] [id number] Dillon Arguelles MD Ph:[phone] Performed By: #### 1 34946, 545042, 506948, 953695 #### [place] [address] CIRANon 12-13-2024 Dilute PT 35.7 second(s) Normal 0.0-47.6 [facility] Comment on above: Performed By: #### 1 74311, 255097, 986617, 952488 #### [place] [address] [place] [address] dPT Confirm Ratio 1.11 ratio Normal 0.00-1.34 [facility] Comment on above: Performed By: #### 1 28005, 367589, 739697, 953122 #### [place] [address] [place] [address] dRVVT 45.7 second(s) Normal 0.0-47.0 [facility] Comment on above: Performed By: #### 1 88653, 161797, 902449, 926711 #### [place] [address] [place] [address] Lupus Rfx Interp Comment: Normal [facility] Comment on above: Result Comment: No l upus anticoagulant was detected. Results suggest the presence of a weak inhibitor. It should be noted that mixing studies performed on samples with minimally extended PTT-LA results can be equivocal. The presence of heparin, which is a non-specific inhibitor, may cause this pattern of results. Since the PTT-LA was extended and the dRVVT was within normal limits, a specific inhibitor to factor VIII, IX, XI, or XII cannot be excluded. As antibody titers may fluctuate with time, repeat testing may be indicated and ideally should be performed in the absence of anticoagulant therapy. Performed At: [address] [id number] Dillon Arguelles MD Ph:[phone] Performed By: #### 1 84490, 760442, 892917, 662957 #### [address] [address] PTT-LA 45.9 second(s) High 0.0-43.5 [facility] Comment on above: Result Comment: Perf ormed At: [address] [id number] Dillon Arugelles MD Ph:[phone] Performed By: #### 1 64381, 092714, 641830, 633732 #### [address] [address] Thrombin Time 17.1 second(s) Normal 0.0-23.0 [facility] Comment on above: Performed By: #### 1 78289, 755708, 972393, 691958 #### [address] [address] B1WBon 12-09-2024 Vitamin B1 Whl Bld 120.6 nmol/L Normal 66.5-200.0 [facility] Comment on above: Result Comment: This test was developed and its performance characteristics determined by [facility]. It has not been cleared or approved by the Food and Drug Administration. Performed At: [address] [id number] Dillon Arguelles MD Ph:[phone] Performed By: #### G , CMP #### [address] [address] ACZA2mv 12-08-2024 Vitamin B6 Lvl 28.8 UG/L Normal 3.4-65.2 [facility] Comment on above: Result Comment: This test was developed and its performance characteristics determined by [facility]. It has not been cleared or approved by the Food and Drug Administration. Deficiency: <3.4 Marginal: 3.4 - 5.1 Adequate: >5.1 [facility]formed [facility]: [facility] [id number] Dillon Arguelles MD Ph:[phone] Performed By: #### G , CMP #### [address] [address] ZINCon 12-08-2024 Zinc Lvl 68 UG/DL Normal 44-115 [facility] Comment on above: Result Comment: This test was developed and its performance characteristics determined by [facility]. It has not been cleared or approved by the Food and Drug Administration. Detection Limit = 5 Performed At: [address] [id number] Dillon Arguelles MD Ph:[phone] Performed By: #### Charo NAM, CMP #### [address] [address] SPEon 12-06-2024 SPE Interpretation Alpha-1 and/or alpha -2 are increased. This may be seen in acute phase reaction. Normal [facility] Comment on above: Result Comment: Elec tronically Signed by: JESSIE TINSLEY MD 12/06/2024 09:43 EDT Performed By: #### G , CMP #### [address] [address] Albumin 3.3 G/dL Normal 3.3-5.0 [facility] Comment on above: Performed By: #### G FR, CMP #### [address] [address] Alpha 1 0.3 G/dL Normal 0.1-0.4 [facility] Comment on above: Performed By: #### G FR, CMP #### [address] [address] Alpha 2 1.3 G/dL High 0.6-1.2 [facility] Comment on above: Performed By: #### G FR, CMP #### [address] [address] Beta 1.3 G/dL Normal 0.6-1.3 [facility] Comment on above: Performed By: #### G FR, CMP #### [address] [address] Gamma 1.1 G/dL Normal 0.7-1.6 [facility] Comment on above: Performed By: #### G FR, CMP #### [address] [address] ANAIFSon 12-05-2024 Antinuclear Ab Screen Negative Normal Negative [facility] Comment on above: Result Comment: Anti -nuclear antibody test is used as an aid in diagnosis of systemic autoimmune diseases. Where positive and clinically warranted, follow-up using disease-specific testing is recommended. Low positive titers are not uncommon with advanced age, certain chronic infections, and malignancies among others. Test methodology: Indirect fluorescence immunoassay (IFA) using HEp-2 cells. Performed By: [facility] [address] [place] [address] [place] Supervisor: Quoc Harden III, M.D. CLIA#: [id number] Performed By: #### G , CMP #### [address] [address] LIPOAon 12-05-2024 Lipoprotein a [Moles/Vol] 118.8 nmol/L High <75.0 [facility] Comment on above: Result Comment: This test was developed and its performance characteristics determined by [facility]. It has not been cleared or approved by the Food and Drug Administration. Note: Values greater than or equal to 75.0 nmol/L may indicate an independent risk factor for CHD, but must be evaluated with caution when applied to non- populations due to the influence of genetic factors on Lp(a) across ethnicities. Performed At: [facility] [id number] Wendy Jimenez PhD Ph:[phone] Performed By: #### G , CMP #### [address] [address] RFon 12-05-2024 Rheumatoid Factor (RF) <10.0 Normal <14.0 [facility] Comment on above: Result Comment: Perf ormed At: [facility] [address] [id number] Wendy Jimenez PhD Ph:[phone] Performed By: #### G FR, CMP #### [address] [address] .Auto Diffon 12-04-2024 Basophil, Absolute 0.0 10 3/mcL Normal 0.0-0.3 [facility] Comment on above: Performed By: #### G FR, MG, BMP #### [place] [address]137 Basophils/100 WBC (Bld) 0.2 % Normal 0.0-2.5 [facility] Comment on above: Performed By: #### G FR, MG, BMP #### [place] [id number] Eosinophil, Absolute 0.1 10 3/mcL Normal 0.0-0.7 [facility] Comment on above: Performed By: #### G FR, MG, BMP #### [address] [address] Eosinophils/100 WBC (Bld) 0.8 % Normal 0.0-6.0 [facility] Comment on above: Performed By: #### G FR, MG, BMP #### [address] [address] Lymphocyte, Absolute 2.9 10 3/mcL Normal 0.9-4.3 [facility] Comment on above: Performed By: #### G FR, MG, BMP #### [place] [id number] Lymphocytes/100 WBC (Bld) 23.1 % Normal 20.0-40.0 [facility] [facility] Comment on above: Performed By: #### G FR, MG, BMP #### [address] [address] Monocyte, Absolute 0.7 10 3/mcL Normal 0.1-1.4 [facility] Comment on above: Performed By: #### G FR, MG, BMP #### [address] [address] Monocytes/100 WBC (Bld) 5.2 % Normal 2.0-13.0 [facility] Comment on above: Performed By: #### G FR, MG, BMP #### [address] [address] Neutrophils/100 WBC (Bld) 70.7 % Normal 50.0-75.0 [facility] Comment on above: Performed By: #### G FR, MG, BMP #### [address] [address] .GFRon 12-04-2024 Estimated Glomerular Filtration Rate 99 ml/min/1.73sqm Normal [facility] Comment on above: Result Comment: Stages of Chronic Kidney Disease (CKD) Stage Description eGFR(ml/min/1.73 sq.m.) CKD 1 Normal kidney function or >=90 normal kindney function with possible kidney damage (ex. Proteinuria) CKD 2 Kidney damage with mild loss 60-89 of kidney function CKD 3a Mild to moderate loss of kidney 45-59 function CKD 3b Moderate to severe loss of 30-44 of kindey function CKD 4 Severe loss of kidney function 15-29 CKD 5 Kidney failure <15 Note: (go live 2024) the eGFR calculation was updated to the 2020 CKD-EPI creatinine equation without a race factor to calculate the eGFR results. Performed By: #### G FR, CMP #### [address] [address] .NEUABSon 12-04-2024 Neutrophil, Absolute 9.0 10 3/mcL High 2.3-8.1 [facility] Comment on above: Performed By: #### G FR, MG, BMP #### [address] [address] A1Con 12-04-2024 Glucose [Mass/Vol] 114 mg/dL Normal [facility] Comment on above: Result Comment: Serina mated Average Glucose calculated by equation ((28.7xA1C)-46.7) Estimated average glucose (eAG) is a calculated value from Hemoglobin A1C and is community health representative of the average blood glucose level in the last 2-3 month period. Normal range: less than 114 mg/dL Performed By: #### G FR MG, BMP #### [place] [id number] HbA1c (Bld) [Mass fraction] 5.6 % Normal 4.3-6.4 [facility] Comment on above: Performed By: #### G FR, MG, BMP #### [place] [address] B12on 12-04-2024 Cobalamin (Vitamin B12) [Mass/Vol] 700 pg/mL Normal 211-911 [facility] Comment on above: Performed By: #### G FR MG, BMP #### [place] [address] CBCon 12-04-2024 Erythrocyte distribution width (RBC) [Ratio] 14.6 % Normal 11.5-15.5 [facility] Comment on above: Performed By: #### G FR MG, BMP #### [place] [address] Hematocrit (Bld) [Volume fraction] 40.8 % Normal 34.0-46.0 [facility] Comment on above: Performed By: #### G FR, MG, BMP #### [place] [address] Hgb 13.6 G/dL Normal 12.0-16.0 [facility] Comment on above: Performed By: #### G FR, MG, BMP #### [place] [id number] MCH (RBC) [Entitic mass] 26.8 pg Low 27.0-33.0 [facility] Comment on above: Performed By: #### G FR, MG, BMP #### [place] [id number] MCHC 33.3 G/dL Normal 32.0-36.0 [facility] Comment on above: Performed By: #### G FR, MG, BMP #### [address] [address] MCV (RBC) [Entitic vol] 80.5 fL Normal 80.0-99.0 [facility] Comment on above: Performed By: #### G FR, MG, BMP #### [address] [address] Platelet 327 10 3/mcL Normal 150-450 [facility] Comment on above: Performed By: #### G FR, MG, BMP #### [address] [address] Platelet mean volume (Bld) [Entitic vol] 7.3 fL Normal 6.6-10.5 [facility] Comment on above: Performed By: #### Charo FR, MG, BMP #### [address] [address] RBC 5.07 10 6/mcL Normal 4.10-5.30 [facility] Comment on above: Performed By: #### G FR, MG, BMP #### [address] [address] WBC 12.7 10 3/mcL High 4.5-10.8 [facility] Comment on above: Performed By: #### G FR, MG, BMP #### [address] [address] CMPon 12-04-2024 Albumin/Globulin [Mass ratio] 0.9 {ratio} Low 1.1-2.5 [facility] Comment on above: Performed By: #### Charo FR, CMP #### [address] [address] Globulin 3.8 G/dL Normal 2.7-4.4 [facility] Comment on above: Performed By: #### G FR, CMP #### [address] [address] Albumin Level 3.3 G/dL Low 3.5-5.0 [facility] Comment on above: Performed By: #### G FR, CMP #### [address] [address] ALP [Catalytic activity/Vol] 114 U/L Normal 40-135 [facility] Comment on above: Performed By: #### G FR, CMP #### [address] [address] ALT [Catalytic activity/Vol] 49 U/L Normal 14-59 [facility] Comment on above: Performed By: #### G FR, CMP #### [address] [address] AST [Catalytic activity/Vol] 45 U/L High 10-40 [facility] Comment on above: Performed By: #### G FR, CMP #### [address] [address] Bili Total 0.6 mg/dL Normal 0.2-1.0 [facility] Comment on above: Result Comment: Use of this assay is not recommended for patients undergoing treatment with eltrombopag due to the potential for falsely elevated results. Performed By: #### G FR, CMP #### [address] [address] BUN/Creatinine Ratio 14 ratio Normal 7-27 [facility] Comment on above: Performed By: #### G FR, CMP #### [address] [address] Calcium [Mass/Vol] 9.1 mg/dL Normal 8.4-10.2 [facility] Comment on above: Performed By: #### G FR, CMP #### [address] [address] Chloride [Moles/Vol] 101 mmol/L Normal 98-107 [facility] Comment on above: Performed By: #### G FR, CMP #### [address] [address] CO2 [Moles/Vol] 32 mmol/L High 22-29 [facility] Comment on above: Performed By: #### G FR, CMP #### [address] [address] Creatinine [Mass/Vol] 0.81 mg/dL Normal 0.51-0.95 [facility] Comment on above: Performed By: #### G FR, CMP #### [address] [address] Electrolyte Balance 7.0 mEq/L Normal 4.0-15.0 [facility] Comment on above: Performed By: #### G FR, CMP #### [address] [address] Glucose [Mass/Vol] 111 mg/dL High 70-105 [facility] Comment on above: Performed By: #### G FR, CMP #### [address] [address] Potassium [Moles/Vol] 3.2 mmol/L Low 3.5-5.1 [facility] Comment on above: Performed By: #### G FR, CMP #### [address] [address] Sodium [Moles/Vol] 140 mmol/L Normal 136-145 [facility] Comment on above: Performed By: #### G FR, CMP #### [address] [address] Urea nitrogen [Mass/Vol] 11 mg/dL Normal 7-18 [facility] Comment on above: Performed By: #### G FR, CMP #### [address] [address] Total Protein 7.1 G/dL Normal 5.7-8.2 [facility] Comment on above: Performed By: #### G FR, CMP #### [address] [address] CPEPon 12-04-2024 C-Peptide 7.17 ng/mL High 0.81-3.85 [facility] Comment on above: Performed By: #### G FR, CMP #### [address] [address] CRPon 12-04-2024 C-Reactive Protein 3.4 mg/dL High 0.0-0.3 [facility] Comment on above: Performed By: #### G FR, CMP #### [address] [address] ESRon 12-04-2024 Erythrocyte Sed Rate 47 mm/hr High 0-20 [facility] Comment on above: Performed By: #### G FR, MG, BMP #### [address] [address] Jm 12-04-2024 Ferritin [Mass/Vol] 30.0 ng/mL Normal 8.0-252.0 [facility] Comment on above: Performed By: #### G FR, CMP #### [address] [address] FESon 12-04-2024 Iron [Mass/Vol] 80 ug/dL Normal 50-170 [facility] Comment on above: Performed By: #### G FR, CMP #### [address] [address] Iron Sat 18 % Normal [facility] Comment on above: Performed By: #### G FR, CMP #### [address] [address] TIBC 434 mcg/dL Normal 250-450 [facility] Comment on above: Performed By: #### G FR, CMP #### [address] [address] FOLon 12-04-2024 Folate 16.91 ng/mL Normal 5.38-24.00 [facility] Comment on above: Performed By: #### G FR, CMP #### [address] [address] GGTon 12-04-2024 Gamma GT 30 U/L Normal 5-55 [facility] Comment on above: Performed By: #### G FR, CMP #### [address] [address] LABORATORYOrdered By: SYSTEM SYSTEM on 12-04-2024 25-hydroxyvitamin D3 [Mass/Vol] 71.0 ng/mL Invalid Interpretation Code AO ADM SS Comment on above: Interpretive Data: I nterpretive Values Based on Total 25(OH) Vitamin D: Deficient <20 ng/mL Insufficient 20 - <30 ng/mL Sufficient 30-100 ng/mL Albumin BCP dye [Mass/Vol] 3.3 G/dL Low 3.5 - 5.0 G/dL AO ADM SS ALP [Catalytic activity/Vol] 114 U/L Normal 40 - 135 U/L AO ADM SS ALT With P-5'-P [Catalytic activity/Vol] 49 U/L Normal 14 - 59 U/L AO ADM SS AST With P-5'-P [Catalytic activity/Vol] 45 U/L High 10 - 40 U/L AO ADM SS Basophils (Bld) [#/Vol] 0.0 103/mcL Normal 0.0 - 0.3 10^3/mcL AO Workflow SS Basophils/100 WBC (Bld) 0.2 % Normal 0.0 - 2.5 % AO Workflow SS Bilirubin [Mass/Vol] 0.6 mg/dL Normal 0.2 - 1 .0 mg/dL AO ADM SS Comment on above: Interpretive Data: U se of this assay is not recommended for patients undergoing treatment with eltrombopag due to the potential for falsely elevated results. C peptide [Mass/Vol] 7.17 ng/mL High 0.81 - 3.85 ng/mL AH ADM SS Calcium [Mass/Vol] 9.1 mg/dL Normal 8.4 - 10. 2 mg/dL AO ADM SS Chloride [Moles/Vol] 101 mmol/L Normal 98 - 10 7 mmol/L AO ADM SS CO2 [Moles/Vol] 32 mmol/L High 22 - 29 mmol/L AO AD M SS Cobalamin (Vitamin B12) [Mass/Vol] 700 pg/mL Normal 211 - 911 pg/mL AH ADM SS Creatinine [Mass/Vol] 0.81 mg/dL Normal 0.51 - 0.95 mg/dL AO ADM SS CRP [Mass/Vol] 3.4 mg/dL High 0.0 - 0.3 mg/dL AO ADM SS Electrolyte Balance 7.0 mEq/L Normal 4.0 - 15 .0 mEq/L AO ADM SS Eosinophil, Absolute 0.1 103/mcL Normal 0.0 - 0 .7 10^3/mcL AO Workflow SS Eosinophils/100 WBC (Bld) 0.8 % Normal 0.0 - 6.0 % AO Workflow SS Erythrocyte distribution width (RBC) [Ratio] 14.6 % Normal 11.5 - 15.5 % AO Workflow SS Estimated Glomerular Filtration Rate 99 ml/min/1.73sqm Invalid Interpretation Code AO Chemistry S Comment on above: Interpretive Data: Stages of Chronic Kidney Disease (CKD) Stage Description eGFR(ml/min/1.73 sq.m.) CKD 1 Normal kidney function or >=90 normal kindney function with possible kidney damage (ex. Proteinuria) CKD 2 Kidney damage with mild loss 60-89 of kidney function CKD 3a Mild to moderate loss of kidney 45-59 function CKD 3b Moderate to severe loss of 30-44 of kindey function CKD 4 Severe loss of kidney function 15-29 CKD 5 Kidney failure <15 Note: (go live 2024) the eGFR calculation was updated to the 2020 CKD-EPI creatinine equation without a race factor to calculate the eGFR results. Ferritin [Mass/Vol] 30.0 ng/mL Normal 8.0 - 25 2.0 ng/mL AO ADM SS Folate [Mass/Vol] 16.91 ng/mL Normal 5.38 - 24. 00 ng/mL AH ADM SS Gamma glutamyl transferase [Catalytic activity/Vol] 30 U/L Normal 5 - 55 U/L AH ADM SS Glucose [Mass/Vol] 111 mg/dL High 70 - 105 mg/dL AO ADM SS Glucose [Mass/Vol] 114 mg/dL Invalid Interpretation Code AO Chemistry S Comment on above: Interpretive Data: E stimated average glucose (eAG) is a calculated value from Hemoglobin A1C and is community health representative of the average blood glucose level in the last 2-3 month period. Normal range: less than 114 mg/dL HbA1c (Bld) [Mass fraction] 5.6 % Normal 4.3 - 6.4 % AO ADM SS Hematocrit (Bld) [Volume fraction] 40.8 % Normal 34.0 - 46.0 % AO Workflow SS Hemoglobin (Bld) [Mass/Vol] 13.6 G/dL Normal 12.0 - 16.0 G/dL AO Workflow SS Iron [Mass/Vol] 80 ug/dL Normal 50 - 170 mcg/dL AO ADM SS Iron binding capacity [Mass/Vol] 434 mcg/dL Normal 250 - 450 mcg/dL AO ADM SS Iron Sat 18 % Invalid Interpretation Code AO ADM SS Lymphocytes (Bld) [#/Vol] 2.9 103/mcL Normal 0.9 - 4.3 10^3/mcL AO Workflow SS Lymphocytes/100 WBC (Bld) 23.1 % Normal 20.0 - 40.0 % AO Workflow SS Magnesium [Mass/Vol] 1.9 mg/dL Normal 1.8 - 2 .4 mg/dL AO ADM SS MCH (RBC) [Entitic mass] 26.8 pg Low 27.0 - 33.0 pg AO Workflow SS MCHC 33.3 G/dL Normal 32.0 - 36.0 G/dL AO Workflow SS MCV (RBC) [Entitic vol] 80.5 fL Normal 80.0 - 99.0 fL AO Workflow SS Monocytes (Bld) [#/Vol] 0.7 103/mcL Normal 0.1 - 1.4 10^3/mcL AO Workflow SS Monocytes/100 WBC (Bld) 5.2 % Normal 2.0 - 13.0 % AO Workflow SS Natriuretic peptide.B prohormone N-Terminal [Mass/Vol] 76 pg/mL Normal 0 - 125 pg/mL AO ADM SS Comment on above: Interpretive Data: N T-proBNP results of less than 300 pg/mL effectively rules out acute congestive heart failure with 99% negative predictive value. Neutrophils (Bld) [#/Vol] 9.0 103/mcL High 2.3 - 8.1 10^3/mcL AO Workflow SS Neutrophils/100 WBC (Bld) 70.7 % Normal 50.0 - 75.0 % AO Workflow SS Platelet mean volume (Bld) [Entitic vol] 7.3 fL Normal 6.6 - 10.5 fL AO Workflow SS Platelets (Bld) [#/Vol] 327 103/mcL Normal 150 - 450 10^3/mcL AO Workflow SS Potassium [Moles/Vol] 3.2 mmol/L Low 3.5 - 5.1 mmol/L AO ADM SS Prealbumin [Mass/Vol] 30.6 mg/dL Normal 10.0 - 40.0 mg/dL AH ADM SS RBC (Bld) [#/Vol] 5.07 106/mcL Normal 4.10 - 5.3 0 10^6/mcL AO Workflow SS Sodium [Moles/Vol] 140 mmol/L Normal 136 - 145 mmol/L AO ADM SS Urea nitrogen [Mass/Vol] 11 mg/dL Normal 7 - 18 mg/dL AO ADM SS Urea nitrogen/Creatinine [Mass ratio] 14 ratio Normal 7 - 27 ratio AO ADM SS Uric Acid Lvl 6.7 mg/dL High 2.6 - 6.2 mg/dL AO ADM SS WBC (Bld) [#/Vol] 12.7 103/mcL High 4.5 - 10.8 10^3/mcL AO Workflow SS LABORATORYOrdered By: Noemy Sanchez on 12-04-2024 Albumin/Globulin [Mass ratio] 0.9 {ratio} Low 1.1 - 2.5 ratio AO ADM SS Globulin 3.8 G/dL Normal 2.7 - 4.4 G/dL AO ADM SS LABORATORYOrdered By: Gregory Nunez on 12-04-2024 ESR Photometric method (Bld) [Velocity] 47 mm/hr High 0 - 20 mm/hr AO Man Heme SS Laboratory - Chemistry and C hemistry - challengeOrdered By: SYSTEM SYSTEM on 12-04-2024 Protein [Mass/Vol] 7.1 G/dL Normal 5.7 - 8.2 G/dL AH ADM SS MGon 12-04-2024 Magnesium [Mass/Vol] 1.9 mg/dL Normal 1.8-2.4 [facility] Comment on above: Performed By: #### G , CMP #### [address] [address] PBNPon 12-04-2024 Natriuretic peptide B (Bld) [Mass/Vol] 76 pg/mL Normal 0-125 [facility] Comment on above: Result Comment: NT-p roBNP results of less than 300 pg/mL effectively rules out acute congestive heart failure with 99% negative predictive value. Performed By: #### G , CMP #### [address] [address] PRALBon 12-04-2024 Prealbumin [Mass/Vol] 30.6 mg/dL Normal 10.0-40.0 [facility] Comment on above: Performed By: #### G , CMP #### [place] [id number] [place], [place] [address] SPEon 12-04-2024 Total Protein 7.1 G/dL Normal 5.7-8.2 [facility] Comment on above: Performed By: #### G FR, CMP #### [address] [address] URICon 12-04-2024 Uric Acid Lvl 6.7 mg/dL High 2.6-6.2 [facility] Comment on above: Performed By: #### G FR, CMP #### [address] [address] VIDHon 12-04-2024 Vit. D 25-Hydroxy 71.0 ng/mL Normal [facility] Comment on above: Result Comment: Inte rpretive Values Based on Total 25(OH) Vitamin D: Deficient <20 ng/mL Insufficient 20 - <30 ng/mL Sufficient 30-100 ng/mL Performed By: #### G FR, CMP #### [address] [address] Gastric Emptying Study - 4 H [facility] 12-03-2024 Gastric Emptying Study - 4 HR [facility] Imaging Services [address] [place] [id number] Gastric Emptying Study - 4 HR MR#: [id number] Acct: [id number] Name: MARIA T WYNNE Rep #: [id number] : 1995 F 29 From: Brigido Monge MD PCP: Dr. Michele Bell, DO Status: REG CLI Study: Gastric Emptying Study - 4 HR Date of Exam: Exam# [id number] Ordering Dr: Neeru Georges HOOKER LASTER- Ilia PROCEDURE: GASTRIC EMPTYING STUDY - 4 HR 12/03/2024 REASON FOR EXAM: N/V, EPIGASTRIC PAIN COMPARISON: None TECHNIQUE: Procedure Code: [id number] Modality: NM Procedure: GASTRIC EMPTYING STUDY - 4 HR The patient ingested a standard meal of 2 eggs, 2 slices of bread, to passive butter and 6 oz of water with 1 mCi of technetium 99 M sulfur colloid. Anterior and posterior planar images of the upper abdomen were obtained for 1 minute immediately following the meal at 1h, 2h and 4h if more than 10% of the activity persisted within the stomach. Regions of interest were drawn, and a geometric mean was used to calculate a [id number]. Fasting Blood Glucose (if diabetic): No record of this could be found. Medications taken that may affect gastric emptying: Metformin RADIOPHARMACEUTICAL: Technetium 99 M sulfur colloid, 1 mCi. FINDINGS: Percent activity remaining in stomach: 1 hour 59 % (normal 37-90%) 2 hours: 17 % (normal 30-60%) 4 hours: 1 % (normal 0-10%) Raw data T1/2 = 66.3 minutes NM/Gastric Emptying Study - 4 HR IMPRESSION: Normal solid phase gastric emptying. Reading Location: [id number] CC: ELIANA Georges; Dr. Michele Bell DO Bus Person: Signed Normal [facility] FLUORO FOR SURGICAL PROCEDUR ESon 11-21-2024 FLUORO FOR SURGICAL PROCEDURES Radiology exam is complete. No Radiologist dictation. Please follow up with ordering provider. Final result Normal [facility] Guidance-- during surgeryon 11-21-2024 Radiology exam is complete. No Radiologist dictation. Please follow up with ordering provider. [facility] No Panel Informationon 11-06 EXAMINATION: THREE XRAY VIEWS OF THE RIGHT SHOULDER; THREE XRAY VIEWS OF THE LEFT SHOULDER 11/06/2024 2:09 pm; 11/06/2024 2:16 pm COMPARISON: None. HISTORY: ORDERING SYSTEM PROVIDED HISTORY: Right shoulder pain, unspecified chronicity TECHNOLOGIST PROVIDED HISTORY: Reason for exam:->right shoulder pain; ORDERING SYSTEM PROVIDED HISTORY: Pain FINDINGS: Right shoulder: The joint spaces are maintained. No acute fracture or dislocation seen. Visualized lung show no pneumothorax. No radiopaque foreign bodies are seen in the soft tissues. Lucent area is seen in the region of the greater tuberosity. This may represent a geode or subchondral cyst. Left shoulder: Joint spaces are maintained. No acute fracture or dislocation is seen. A lucent area is also seen in the humeral head near the region of the greater tuberosity. [facility] Hugo Dyer DO - 11/06/2024 EXAMINATION: THREE XRAY VIEWS OF THE RIGHT SHOULDER; THREE XRAY VIEWS OF THE LEFT SHOULDER 11/06/2024 2:09 pm; 11/06/2024 2:16 pm COMPARISON: None. HISTORY: ORDERING SYSTEM PROVIDED HISTORY: Right shoulder pain, unspecified chronicity TECHNOLOGIST PROVIDED HISTORY: Reason for exam:->right shoulder pain; ORDERING SYSTEM PROVIDED HISTORY: Pain FINDINGS: Right shoulder: The joint spaces are maintained. No acute fracture or dislocation seen. Visualized lung show no pneumothorax. No radiopaque foreign bodies are seen in the soft tissues. Lucent area is seen in the region of the greater tuberosity. This may represent a geode or subchondral cyst. Left shoulder: Joint spaces are maintained. No acute fracture or dislocation is seen. A lucent area is also seen in the humeral head near the region of the greater tuberosity. [facility] Study observation (narrative) [facility] No Panel InformationOrdered By: Hugo Dyer on 11-06-2024 [facility] Work Phone: XR SHOULDER LEFT (MIN 2 VIEW S)on 11-06-2024 XR SHOULDER LEFT (MIN 2 VIEWS) EXAMINATION: THREE XRAY VIEWS OF THE RIGHT SHOULDER; THREE XRAY VIEWS OF THE LEFT SHOULDER 11/06/2024 2:09 pm; 11/06/2024 2:16 pm COMPARISON: None. HISTORY: ORDERING SYSTEM PROVIDED HISTORY: Right shoulder pain, unspecified chronicity TECHNOLOGIST PROVIDED HISTORY: Reason for exam:->right shoulder pain; ORDERING SYSTEM PROVIDED HISTORY: Pain FINDINGS: Right shoulder: The joint spaces are maintained. No acute fracture or dislocation seen. Visualized lung show no pneumothorax. No radiopaque foreign bodies are seen in the soft tissues. Lucent area is seen in the region of the greater tuberosity. This may represent a geode or subchondral cyst. Left shoulder: Joint spaces are maintained. No acute fracture or dislocation is seen. A lucent area is also seen in the humeral head near the region of the greater tuberosity. Interpreted by: Hugo Dyer DO Signed by: Hugo Dyer DO 11/06/24 Final result Normal [facility] XR SHOULDER RIGHT (MIN 2 VIE WS)on 11-06-2024 XR SHOULDER RIGHT (MIN 2 VIEWS) EXAMINATION: THREE XRAY VIEWS OF THE RIGHT SHOULDER; THREE XRAY VIEWS OF THE LEFT SHOULDER 11/06/2024 2:09 pm; 11/06/2024 2:16 pm COMPARISON: None. HISTORY: ORDERING SYSTEM PROVIDED HISTORY: Right shoulder pain, unspecified chronicity TECHNOLOGIST PROVIDED HISTORY: Reason for exam:->right shoulder pain; ORDERING SYSTEM PROVIDED HISTORY: Pain FINDINGS: Right shoulder: The joint spaces are maintained. No acute fracture or dislocation seen. Visualized lung show no pneumothorax. No radiopaque foreign bodies are seen in the soft tissues. Lucent area is seen in the region of the greater tuberosity. This may represent a geode or subchondral cyst. Left shoulder: Joint spaces are maintained. No acute fracture or dislocation is seen. A lucent area is also seen in the humeral head near the region of the greater tuberosity. Interpreted by: Hugo Dyer DO Signed by: Hugo Dyer DO 11/06/24 Final result Normal [facility] FLUORO FOR SURGICAL PROCEDUR ESon 10-31-2024 FLUORO FOR SURGICAL PROCEDURES Radiology exam is complete. No Radiologist dictation. Please follow up with ordering provider. Final result Normal [facility] Guidance-- during surgeryon 10-31-2024 Radiology exam is complete. No Radiologist dictation. Please follow up with ordering provider. [facility] XR KNEE LEFT (MIN 4 VIEWS)on 10-23-2024 XR KNEE LEFT (MIN 4 VIEWS) EXAMINATION: FOUR XRAY VIEWS OF THE LEFT KNEE 10/23/2024 2:58 pm COMPARISON: None. HISTORY: ORDERING SYSTEM PROVIDED HISTORY: Pain in both knees, unspecified chronicity, Pain in both knees, unspecified chronicity FINDINGS: No evidence of acute fracture or dislocation. No focal osseous lesion. No evidence of joint effusion. No focal soft tissue abnormality. IMPRESSION: No acute abnormality of the knee. Interpreted by: Bebe Rose MD Signed by: Bebe Rose MD 10/27/24 Final result Normal [facility] XR KNEE RIGHT (MIN 4 VIEWS)o n 10-23-2024 XR KNEE RIGHT (MIN 4 VIEWS) EXAMINATION: FOUR XRAY VIEWS OF THE RIGHT KNEE 10/23/2024 2:58 pm COMPARISON: None. HISTORY: ORDERING SYSTEM PROVIDED HISTORY: Pain in both knees, unspecified chronicity, Pain in both knees, unspecified chronicity FINDINGS: No evidence of acute fracture or dislocation. No focal osseous lesion. No evidence of joint effusion. No focal soft tissue abnormality. IMPRESSION: No acute abnormality of the knee. Interpreted by: Bebe Rose MD Signed by: Bebe Rose MD 10/27/24 Final result Normal [facility] Pathology biopsy report Mario (Tiss)on 10-18-2024 AP DISCLAIMER Normal [facility] Comment on above: Order Comment: Speci men Type: TISSUE SPECIMEN Ordering Facility: [facility] Address: [address] [place], [place] [id number] Result Comment: Mariel sutton Developed Test (LDT) Disclaimer: Performance characteristics of immunohistochemical, immunofluorescent, and chromogenic in-situ hybridization tests have been determined by the performing laboratory within [facility]'s [facility] Pathology and Laboratory Medicine Department ([facility], [facility], [facility], [facility], [facility], or [facility]) in a manner consistent with CLIA requirements. One or more of these tests may not have been cleared or approved by the FDA. [facility] is regulated under CLIA as qualified to perform high-complexity testing. These tests are used for clinical purposes. These should not be regarded as investigational or for research. Positive and negative controls stain appropriately. Performed By: #### 6 6121-5 #### [facility] CLIA [id number] [address] [place] [address] STATES OF [place] CASE REPORT Normal [facility] Comment on above: Order Comment: Speci men Type: TISSUE SPECIMEN Ordering Facility: [facility] Address: [address] [place] [address] Result Comment: Surg ical Pathology Report Case: [id number] Authorizing Provider: Emmett Delgado PA-C Collected: 10/18/2024 12:00 PM Ordering Location: [facility] Received: 10/21/2024 09:18 PM [facility] Pathologist: José Manuel Nunez MD, PhD Specimen: Skin, Shave Biopsy, LEFT MEDIAL DISTAL PRETIBIAL REGION Performed By: #### 6 6121-5 #### [facility] CLIA [id number] [address] [place] [address] CLINICAL HISTORY MORPHOLOGY: ECZEMATO US PATCHES OF HYPERPIGMENTATION AND ERYTHEMATOUS RAISED PAPULE. DDX: RASH NOS VS. ATOPIC DERMATITIS Normal [facility] Comment on above: Order Comment: Speci men Type: TISSUE SPECIMEN Ordering Facility: [facility] Address: [address] [place] [address] Performed By: #### 6 6121-5 #### [facility] CLIA [id number] [address] [place] [address] DIAGNOSIS COMMENT Normal [facility] Comment on above: Order Comment: Speci men Type: TISSUE SPECIMEN Ordering Facility: [facility] Address: [address] [place] [address] Result Comment: Sect ions display basket-weave orthokeratosis in stratum corneum overlying a mildly atrophic epidermis. There is subtle focal spongiosis. In the superficial dermis available for review there is a lobular proliferation of relatively thick-walled small blood vessels associated with a chronic lymphohistiocytic inflammatory infiltrate. Rare eosinophils are noted. There are extravasated erythrocytes surrounding several vessels. The specimen is broadly transected across the superficial dermis. In summary, the histologic features are suggestive of superficially sampled venous stasis dermatitis. A dermal hypersensitivity reaction associated with stasis changes cannot be entirely ruled out. Clinical correlation is recommended. Performed By: #### 6 6121-5 #### [facility] CLIA [id number] [address] [place] [address] FINAL DIAGNOSIS Normal [facility] Comment on above: Order Comment: Speci men Type: TISSUE SPECIMEN Ordering Facility: [facility] Address: [address] [place] [address] Result Comment: Skin , left medial distal pretibial region, shave biopsy: - Suggestive of superficially sampled venous stasis dermatitis (see comment). AF/bs 10/22/2024 at 1637 EDT Performed By: #### 6 6121-5 #### [facility] CLIA [id number] [address] [place] [address] OF [facility] FINAL PERFORMING LAB Normal [facility] Comment on above: Order Comment: Speci men Type: TISSUE SPECIMEN Ordering Facility: [facility] Address: [address] [place] [address] Result Comment: Diag nostic interpretation performed at: [facility], [address] [place] [address] CLIA# [id number] Machine Woodworking Sander: Quoc Harden MD Performed By: #### 6 6121-5 #### [facility] CLIA [id number] [address] [place] [address] GROSS DESCRIPTION Normal [facility] Comment on above: Order Comment: Speci men Type: TISSUE SPECIMEN Ordering Facility: [facility] Address: [address] [place] [address] Result Comment: A. S kin, Shave Biopsy Received in formalin is a 0.9 x 0.6 x 0.1 cm shave of skin. On the skin surface there is a 0.9 cm nunez flat area. The specimen is bisected. Totally submitted in one cassette. Gross examination performed at [facility], [address] [place] [address] FF 10/22/2024 2:06 AM Performed By: #### 6 6121-5 #### [facility] CLIA [id number] [address] [place] [address] OF [place] Gastroenterology Visit Repor ton 10-15-2024 Gastroenterology Visit Report [facility] Gastroenterology [address] [facility] [place] [address] OFFICE VISIT Date of Service: 10/15/24 MR#: [id number] Acct: [id number] Name: MARIA T WYNNE Rep #: [id number] : 1995 Provider: ELIANA barnard Age/Sex: 29/F Location: [facility] Status: Signed Intake Vital Signs 08/06/24 14:38 10/01/24 14:19 10/15/24 14:29 Height 4 ft 11 in 4 ft 11 in 4 ft 11 in Weight: 190 lb 8 oz BMI 38.5 BP 98/74 Respiration 18 Pulse 81 Temp 97.4 F L Temp Source Temporal Pulse Oximetry (%) 93 Oxygen Delivery Method room air Intake Visit Reasons: Test Result Chief Complaint: constipation Fire Official Required: No Accompanied by: Self Is patient in pain?: Yes Allergies clindamycin Allergy (Mild, Verified 10/15/24 14:17) Unknown nickel (Nickel) Allergy (Verified 10/15/24 14:17) Unknown Penicillins Allergy (Verified 10/15/24 14:17) Shortness of breath naproxen Adverse Reaction (Intermediate, Verified 10/15/24 14:17) Other amoxicillin Adverse Reaction (Mild, Verified 10/15/24 14:17) Rash lubiprostone (From Amitiza) Adverse Reaction (Mild, Verified 10/15/24 14:17) Rash dicyclomine (From Bentyl) Adverse Reaction (Verified 10/15/24 14:17) cramps, constipation, chest pain doxycycline Adverse Reaction (Verified 10/15/24 14:17) Vomiting metronidazole (From Flagyl) Adverse Reaction (Verified 10/15/24 14:17) Upset Stomach sulfamethoxazole (From Bactrim) Adverse Reaction (Verified 10/15/24 14:17) Upset Stomach trimethoprim (From Bactrim) Adverse Reaction (Verified 10/15/24 14:17) Upset Stomach Medications ???Medication ???Instructions ???Recorded ???Confirmed ???Type buprenorphine 2.9 mg-naloxone 0.71 2 tab sublingual QDAY 03/26/24 0 10/15/24 History mg sublingual tablet cholecalciferol (vitamin D3) 50 50 mcg PO QDAY 03/26/24 10/15/24 H istory mcg (2,000 unit) capsule clonidine HCl 0.1 mg tablet 0.1 mg PO QHS 03/26/24 10/15/24 Hi story ezetimibe 10 mg tablet 10 mg PO QDAY 03/26/24 10/15/24 Hi story hydrochlorothiazide 25 mg tablet 50 mg PO BID 03/26/24 10/15/24 His tory hydroxyzine HCl 50 mg tablet 100 mg PO QHS 03/26/24 10/15/24 Hi story methocarbamol 750 mg tablet 750 mg PO TID 03/26/24 10/15/24 Hi story pregabalin 300 mg capsule 300 mg PO QHS 03/26/24 10/15/24 Hi story omeprazole 40 mg capsule,delayed 40 mg PO BID #180 caps 03/27/24 Rx release lactulose 10 gram/15 mL oral 30 g (45 mL) PO TID constipation 0 04/24/24 10/15/24 Rx solution #946 mL ondansetron 4 mg disintegrating 4 mg PO .COMPLEX #15 tabs 05/22/24 10/15/24 Rx tablet acyclovir 400 mg tablet 800 mg PO DAILY 07/08/24 10/15/24 History biotin 2,500 mcg capsule 2,500 mcg PO DAILY 07/08/24 History calcium citrate 500 mg PO DAILY 07/08/24 10/15/24 History clobetasol 0.05 % topical ointment 1 applic topical BID 07/08/24 History metformin 500 mg tablet,extended 1,000 mg PO BID 07/08/24 10/15/24 History release 24 hr norethindrone 1 mg-ethinyl 1 tab PO DAILY 07/08/24 10/15/24 H istory estradiol 20 mcg (21)-iron 75 mg (7) tablet (Myra Fe 04/01 ()) polyethylene glycol 3350 17 17 g PO TID 07/08/24 10/15/24 Hist ory gram/dose oral powder pregabalin 150 mg capsule 150 mg PO BID 07/08/24 10/15/24 Hi story tralokinumab-ldrm 300 mg/2 mL 300 mg subcut Q14D 07/08/24 History subcutaneous auto-injector (Adbry) tenapanor 50 mg tablet (Ibsrela) 50 mg PO BID #60 tabs 08/06/2408/04 Rx ferrous sulfate 325 mg (65 mg 325 mg PO QDAY 10/15/24 10/15/24 H istory iron) tablet potassium chloride 20 mEq oral 20 meq PO BID 10/15/24 10/15/24 Hi story packet Nurse's Note: Got notification that she will be receiving her Ibsrella rountinely now [facility] Medical History Wears contact lenses Wears glasses Loose, teeth Thyroid disease Arthritis High cholesterol Restless legs Injury of back History of IBS Smoker TMJ syndrome Rectal bleeding Insulin resistance Insomnia Subclinical hypothyroidism Substance abuse GERD (gastroesophageal reflux disease) Hepatitis Migraines Fibromyalgia Low potassium syndrome Vitamin deficiency Carpal tunnel syndrome Seasonal allergies Surgical History History of colonoscopy History of shoulder surgery History of History of appendectomy HISTORY NECK INJECTIONS Family History Father Diabetes Grandfather Diabetes Grandmother Diabetes Other Alcoholism Allergies Anxiety Anxiety and depression Arthritis Asthma defect Bowel disease CVA (cerebral vascular accident) (more content not included)... Normal [facility] .GFRon 10-14-2024 Estimated Glomerular Filtration Rate 104 ml/min/1.73sqm Normal [facility] Comment on above: Result Comment: Stages of Chronic Kidney Disease (CKD) Stage Description eGFR(ml/min/1.73 sq.m.) CKD 1 Normal kidney function or >=90 normal kindney function with possible kidney damage (ex. Proteinuria) CKD 2 Kidney damage with mild loss 60-89 of kidney function CKD 3a Mild to moderate loss of kidney 45-59 function CKD 3b Moderate to severe loss of 30-44 of kindey function CKD 4 Severe loss of kidney function 15-29 CKD 5 Kidney failure <15 Note: (go live 2024) the eGFR calculation was updated to the 2020 CKD-EPI creatinine equation without a race factor to calculate the eGFR results. Performed By: #### G FR, MG, BMP #### [place] [place], [place] [address] [facility] 10-14-2024 BUN/Creatinine Ratio 9 ratio Normal 7-27 [facility] Comment on above: Performed By: #### G FR, MG, BMP #### [facility] [address] [place], [place] [address] Calcium [Mass/Vol] 9.7 mg/dL Normal 8.4-10.2 [facility] Comment on above: Performed By: #### G FR, MG, BMP #### [address] [address] Chloride [Moles/Vol] 101 mmol/L Normal 98-107 [facility] Comment on above: Performed By: #### G FR, MG, BMP #### [address] [address] CO2 [Moles/Vol] 28 mmol/L Normal 22-29 [facility] Comment on above: Performed By: #### G FR, MG, BMP #### [address] [address] Creatinine [Mass/Vol] 0.78 mg/dL Normal 0.51-0.95 [facility] Comment on above: Performed By: #### G FR, MG, BMP #### [address] [address] Electrolyte Balance 9.0 mEq/L Normal 4.0-15.0 [facility] Comment on above: Performed By: #### G FR, MG, BMP #### [address] [address] Glucose [Mass/Vol] 125 mg/dL High 70-105 [facility] Comment on above: Performed By: #### G FR, MG, BMP #### [address] [address] Potassium [Moles/Vol] 3.0 mmol/L Low 3.5-5.1 [facility] Comment on above: Performed By: #### G FR, MG, BMP #### [address] [address] Sodium [Moles/Vol] 138 mmol/L Normal 136-145 [facility] Comment on above: Performed By: #### G FR, MG, BMP #### [address] [address] Urea nitrogen [Mass/Vol] 7 mg/dL Normal 7-18 [facility] Comment on above: Performed By: #### G FR, MG, BMP #### [place] [address] LABORATORYOrdered By: SYSTEM SYSTEM on 10-14-2024 Calcium [Mass/Vol] 9.7 mg/dL Normal 8.4 - 10. 2 mg/dL AO ADM SS Chloride [Moles/Vol] 101 mmol/L Normal 98 - 10 7 mmol/L AO ADM SS CO2 [Moles/Vol] 28 mmol/L Normal 22 - 29 mmol/L AO AD M SS Creatinine [Mass/Vol] 0.78 mg/dL Normal 0.51 - 0.95 mg/dL AO ADM SS Electrolyte Balance 9.0 mEq/L Normal 4.0 - 15 .0 mEq/L AO ADM SS Estimated Glomerular Filtration Rate 104 ml/min/1.73sqm Invalid Interpretation Code AO Chemistry S Comment on above: Interpretive Data: Stages of Chronic Kidney Disease (CKD) Stage Description eGFR(ml/min/1.73 sq.m.) CKD 1 Normal kidney function or >=90 normal kindney function with possible kidney damage (ex. Proteinuria) CKD 2 Kidney damage with mild loss 60-89 of kidney function CKD 3a Mild to moderate loss of kidney 45-59 function CKD 3b Moderate to severe loss of 30-44 of kindey function CKD 4 Severe loss of kidney function 15-29 CKD 5 Kidney failure <15 Note: (go live 2024) the eGFR calculation was updated to the 2020 CKD-EPI creatinine equation without a race factor to calculate the eGFR results. Glucose [Mass/Vol] 125 mg/dL High 70 - 105 mg/dL AO ADM SS Magnesium [Mass/Vol] 1.6 mg/dL Low 1.8 - 2 .4 mg/dL AO ADM SS Potassium [Moles/Vol] 3.0 mmol/L Low 3.5 - 5.1 mmol/L AO ADM SS Sodium [Moles/Vol] 138 mmol/L Normal 136 - 145 mmol/L AO ADM SS Urea nitrogen [Mass/Vol] 7 mg/dL Normal 7 - 18 mg/dL AO ADM SS Urea nitrogen/Creatinine [Mass ratio] 9 ratio Normal 7 - 27 ratio AO ADM SS MGon 10-14-2024 Magnesium [Mass/Vol] 1.6 mg/dL Low 1.8-2.4 [facility] Comment on above: Performed By: #### G FR, MG, BMP #### [address] [place], [place] [address] Colonoscopy Reporton 025 Colonoscopy Report [facility] Medical Records Department [address] [place] [address] Colonoscopy Report MR#: [id number] Acct: [id number] Name: MARIA T WYNNE Rep #: [id number] : 1995 29 From: Mike Motta DO PCP: Dr. Michele Bell DO Status:REG [facility] Patient Name: Maria T Wynne Procedure Date: 10/01/2024 3:00 PM Date of : 1995 Age: 29 Procedure: Colonoscopy Indications: Incidental abdominal pain noted, Incidental abdominal distress noted, Incidental constipation noted Providers: Mike Motta DO Referring MD: Michele Bell Do Medicines: Monitored Anesthesia Care Patient Profile: This is a 29 year old female. Refer to note in patient chart for documentation of history and physical. Last Colonoscopy: none. The patient's first colonoscopy is today. Complications: No immediate complications. Procedure: Pre-Anesthesia Assessment: - Prior to the procedure, a History and Physical was performed, and patient medications and allergies were reviewed. The patient is competent. The risks and benefits of the procedure and the sedation options and risks were discussed with the patient. All questions were answered and informed consent was obtained. Patient identification and proposed procedure were verified by the physician in the pre-procedure area. Mental Status Examination: alert and oriented. Respiratory Examination: clear to auscultation. CV Examination: normal. Prophylactic Antibiotics: The patient does not require prophylactic antibiotics. Prior Anticoagulants: The patient has taken no anticoagulant or antiplatelet agents. ASA Grade Assessment: II - A patient with mild systemic disease. After reviewing the risks and benefits, the patient was deemed in satisfactory condition to undergo the procedure. The anesthesia plan was to use monitored anesthesia care (MAC). Immediately prior to administration of medications, the patient was re-assessed for adequacy to receive sedatives. The heart rate, respiratory rate, oxygen saturations, blood pressure, adequacy of pulmonary ventilation, and response to care were monitored throughout the procedure. The physical status of the patient was re-assessed after the procedure. After I obtained informed consent, the scope was passed under direct vision. Throughout the procedure, the patient's blood pressure, pulse, and oxygen saturations were monitored continuously. The pediatric colonoscope was introduced through the anus and advanced to the cecum, identified by appendiceal orifice and ileocecal valve. The colonoscopy was performed without difficulty. The patient tolerated the procedure well. The quality of the bowel preparation was adequate. The ileocecal valve, appendiceal orifice, and rectum were photographed. Scope In: 3:16:43 PM Scope Withdrawal Time 0 hours 4 minutes 46 seconds Scope Out: 3:26:29 PM Total Procedure Duration Time 0 hours 9 minutes 46 seconds Findings: The perianal and digital rectal examinations were normal. An area of mildly congested mucosa was found in the recto-sigmoid colon, in the sigmoid colon and in the transverse colon. Biopsies were taken with a cold forceps for histology. Verification of patient identification for the specimen was done. Estimated blood loss was minimal. A large amount of stool was found in the entire colon, precluding visualization. Lavage of the area was performed using greater than 500 mL of sterile water, resulting in incomplete clearance with continued poor visualization. Impression: - Congested mucosa in the recto-sigmoid colon, in the sigmoid colon and in the transverse colon. Biopsied. - Stool in the entire examined colon. Recommendation: - Discharge patient to home. - Resume previous diet. - Continue present medications. - Await pathology results. - Repeat colonoscopy because the bowel preparation was poor. Procedure Code(s): --- Professional --- 10631, Colonoscopy, flexible; with biopsy, single or multiple CPT copyright 2021 [employer]. All rights reserved. The codes documented in this report are preliminary and upon manufacturing sr engineer review may be revised to meet current compliance requirements. Mike Motta DO 10/01/2024 3:33:26 PM This report has been signed electronically. Number of Addenda: 0 Note Initiated On: 10/01/2024 3:00 PM 10/01/24 1533 Date Mike Dunn Signature: Date (if indicated) CC: Dr. Michele Bell DO; Mike Motta DO Date Dictated: 10/01/24 1500 Date Transcribed: Bus Person: SILVINA Signed [facility] MR/POSTOP.ANEon 10-01-2024 MR/POSTOP.[facility] Medical Records Department [address] [place] [address] Anesthesia Postop Eval I 10/01/24 1535 MR#: [id number] Acct: [id number] Name: MARIA T WYNNE Rep #: [id number] : 1995 29 From: Navi Grijalva CRNA PCP: Dr. Michele Bell DO Status:REG SDC Y Race: C Location: [place] [address] Anesthesia: Postop Eval I Current Vital Signs Temperature: 97.1 F Pulse Rate: 80 Blood Pressure: 85/59 Respiratory Rate: 2 Pulse Ox: 98 Oxygen Delivery Method: Room Air Assessment Airway patent: No Spontaneous unlabored respirations: No Mental status: Awake and Calm nausea: No Vomiting: No Anesthesia Complication: No Fluid Hydration Crystalloid volume administer (ml): 200 Total IV fluid infused: 200 Progress Note Anesthesia document: Postop Eval 1 completed: Yes 10/01/241535 Date Navi Grijalva CRNA Cosigner Signature: Date CC: Signed [facility] MR/[id number] 10-01-2024 MR/POSTOPAN2 [facility] Medical Records Department [address] [facility] [place] [place] [address] Anesthesia Postop Eval II 10/01/24 1808 MR#: [id number] Acct: [id number] Name: MARIA T WYNNE Rep #: [id number] : 1995 29 From: Jean-Pierre Simpson MD PCP: Dr. Michele Bell, DO Status:DEP [facility] Y Race: C Location: EN Anesthesia Postop Eval I Sum Postop Eval Completion status Anesthesia document: Postop Eval 1 completed: Yes Anesthesia Postop Eval I Summary Anesthesia Postop Eval I Summary: Anesthesia Postop Eval I: Assessment Summary Airway patent No 10/01/24 15:36 [email or web address] [email or web address] Spontaneous unlabored No 10/01/24 15:36 TORCH [email or web address] respirations Mental status Awake,Calm 10/01/24 15:36 TORCH [email or web address] nausea No 10/01/24 15:36 TORCH [email or web address] Vomiting No 10/01/24 15:36 [email or web address] [email or web address] Anesthesia Postop Eval I: Fluid Summary Crystalloid volume administer 200 10/01/24 15:36 TORCH [email or web address] (ml) Colloids volume administered ( ml) Blood Product volume administered (ml) Total IV fluid infused 200 10/01/24 15:36 [email or web address] [email or web address] Anesthesia Postop Eval I: Summary Notes Anesthesia Complication No 10/01/24 15:36 [email or web address] [email or web address] Anesthesia Complication Comment: Post-operative progress note Anesthesia: Postop Eval II Evaluation Mental status: Awake and Calm Pain Level: 0 nausea: No Vomiting: No Progress Note Post-operative progress note: Meets discharge criteria Complications Anesthesia Complication: No 10/01/241812 Date Jean-Pierre Simpson MD Cosigner Signature: Date CC: Signed Normal [facility] ,Urineon 10-01-2024 Beta HCG ( test) Ql (U) Negative [facility] Comment on above: Result Comment: Very dilute urine specimens, as indicated by a low specific gravity, may not contain community health representative levels of hCG. If is still suspected, a first morning urine specimen should be collected 48 hours later and tested. Performed By: #### L [phone] ####[facility] [address] [place], [place], [address] Surgery Specimen Level Constance 10-01-2024 Surgery Specimen Level IV ---- Patient Age/Sex Location Account Attending Physician ---- MARIA T WYNNE / EN [id number] Mike Motta DO ---- Specimen: [id number] Received: 10/01/24 Status: KRISTAN Zavala Num: [id number] Spec Type: COLON BX Subm Dr: Mike Motta, HEADER OPERATION: Colonoscopy with biopsy PRE-OP DIAGNOSIS: Irritable bowel syndrome with constipation, lower abdominal pain TISSUE SUBMITTED: A- Random colon biopsy ---- MICROSCOPIC DIAGNOSIS A. Colon, random, biopsy: - No specific pathologic change. MICROSCOPIC DESCRIPTION Slides are reviewed. GROSS DESCRIPTION A. Received in fixative is one container labeled with the patient's name and designated Random colon biopsy. The specimen consists of multiple irregular fragments of light nunez soft tissue that in aggregate measure 1.3 x 0.3 x 0.1 cm. The specimen is totally submitted in one cassette. [place] 10/02/2024 [facility]:[id number] ---- Patient Age/Sex Location Account Attending Physician ---- MARIA T WYNNE 29/ EN [id number] Mike Motta DO ---- Signed (signature on file) Dr. Allison Green MD 10/07/24 0923 ---- Normal [facility] Comment on above: Performed By: #### P SUIV ####[facility] [address] [place], [address] INSLNon 09-25-2024 Insulin 19.55 munit/L Normal 2.60-37.60 [facility] Comment on above: Performed By: #### MG POORNIMA, BMP #### [address] [address] .Auto Diffon 09-24-2024 Basophil, Absolute 0.0 10 3/mcL Normal 0.0-0.3 [facility] Comment on above: Performed By: #### MG POORNIMA, BMP #### [address] [address] Basophils/100 WBC (Bld) 0.3 % Normal 0.0-2.5 [facility] Comment on above: Performed By: #### MG POORNIMA, BMP #### [address] [address] Eosinophil, Absolute 0.1 10 3/mcL Normal 0.0-0.7 [facility] Comment on above: Performed By: #### MG POORNIMA, BMP #### [address] [address] Eosinophils/100 WBC (Bld) 0.5 % Normal 0.0-6.0 [facility] Comment on above: Performed By: ###David NAM MG, BMP #### [address] [address] Lymphocyte, Absolute 2.3 10 3/mcL Normal 0.9-4.3 [facility] Comment on above: Performed By: #### MG POORNIMA, BMP #### [address] [address] Lymphocytes/100 WBC (Bld) 20.7 % Normal 20.0-40.0 [facility] Comment on above: Performed By: #### G FR, MG, BMP #### [address] [place], [place] [address] Monocyte, Absolute 0.5 10 3/mcL Normal 0.1-1.4 [facility] Comment on above: Performed By: #### G FR, MG, BMP #### [address] [address] Monocytes/100 WBC (Bld) 5.0 % Normal 2.0-13.0 [facility] Comment on above: Performed By: #### G FR, MG, BMP #### [address] [address] Neutrophils/100 WBC (Bld) 73.5 % Normal 50.0-75.0 [facility] Comment on above: Performed By: #### G FR, MG, BMP #### [address] [address] .GFRon 09-24-2024 Estimated Glomerular Filtration Rate 109 ml/min/1.73sqm Normal [facility] Comment on above: Result Comment: Stages of Chronic Kidney Disease (CKD) Stage Description eGFR(ml/min/1.73 sq.m.) CKD 1 Normal kidney function or >=90 normal kindney function with possible kidney damage (ex. Proteinuria) CKD 2 Kidney damage with mild loss 60-89 of kidney function CKD 3a Mild to moderate loss of kidney 45-59 function CKD 3b Moderate to severe loss of 30-44 of kindey function CKD 4 Severe loss of kidney function 15-29 CKD 5 Kidney failure <15 Note: (go live 2024) the eGFR calculation was updated to the 2020 CKD-EPI creatinine equation without a race factor to calculate the eGFR results. Performed By: #### G FR, MG, BMP #### [address] [address] .NEUABSon 09-24-2024 Neutrophil, Absolute 8.1 10 3/mcL Normal 2.3-8.1 [facility] Comment on above: Performed By: #### G FR MG, BMP #### [address] [address] CBCon 09-24-2024 Erythrocyte distribution width (RBC) [Ratio] 14.5 % Normal 11.5-15.5 [facility] Comment on above: Performed By: #### Charo FR MG, BMP #### [address] [address] Hematocrit (Bld) [Volume fraction] 39.8 % Normal 34.0-46.0 [facility] Comment on above: Performed By: #### Charo FR MG, BMP #### [address] [address] Hgb 13.2 G/dL Normal 12.0-16.0 [facility] Comment on above: Performed By: #### Charo NAM MG, BMP #### [address] [address] MCH (RBC) [Entitic mass] 26.2 pg Low 27.0-33.0 [facility] Comment on above: Performed By: #### Charo FR MG, BMP #### [address] [address] MCHC 33.1 G/dL Normal 32.0-36.0 [facility] Comment on above: Performed By: #### Charo FR MG, BMP #### [address] [address] MCV (RBC) [Entitic vol] 79.2 fL Low 80.0-99.0 [facility] Comment on above: Performed By: #### Charo FR, MG, BMP #### [address] [address] Platelet 353 10 3/mcL Normal 150-450 [facility] Comment on above: Performed By: #### Charo FR MG, BMP #### [address] [address] Platelet mean volume (Bld) [Entitic vol] 7.8 fL Normal 6.6-10.5 [facility] Comment on above: Performed By: #### G FR, MG, BMP #### [address] [address] RBC 5.02 10 6/mcL Normal 4.10-5.30 [facility] Comment on above: Performed By: #### G FR, MG, BMP #### [address] [address] WBC 11.0 10 3/mcL High 4.5-10.8 [facility] Comment on above: Performed By: #### G FR, MG, BMP #### [address] [address] CMPon 09-24-2024 Albumin Level 3.3 G/dL Low 3.5-5.0 [facility] Comment on above: Performed By: #### G FR, MG, BMP #### [address] [address] Albumin/Globulin [Mass ratio] 0.8 {ratio} Low 1.1-2.5 [facility] Comment on above: Performed By: #### G FR, MG, BMP #### [address] [address] ALP [Catalytic activity/Vol] 117 U/L Normal 40-135 [facility] Comment on above: Performed By: #### G FR, MG, BMP #### [address] [address] ALT [Catalytic activity/Vol] 24 U/L Normal 14-59 [facility] Comment on above: Performed By: #### G FR, MG, BMP #### [address] [address] AST [Catalytic activity/Vol] 18 U/L Normal 10-40 [facility] Comment on above: Performed By: #### G FR, MG, BMP #### [address] [address] Bili Total 0.3 mg/dL Normal 0.2-1.0 [facility] Comment on above: Result Comment: Use of this assay is not recommended for patients undergoing treatment with eltrombopag due to the potential for falsely elevated results. Performed By: #### MG POORNIMA, BMP #### [address] [address] BUN/Creatinine Ratio 11 ratio Normal 7-27 [facility] Comment on above: Performed By: #### MG POORNIMA, BMP #### [address] [address] Calcium [Mass/Vol] 9.6 mg/dL Normal 8.4-10.2 [facility] Comment on above: Performed By: #### MG POORNIMA, BMP #### [address] [address] Chloride [Moles/Vol] 99 mmol/L Normal 98-107 [facility] Comment on above: Performed By: #### MG POORNIMA, BMP #### [address] [address] CO2 [Moles/Vol] 27 mmol/L Normal 22-29 [facility] Comment on above: Performed By: #### MG POORNIMA, BMP #### [address] [address] Creatinine [Mass/Vol] 0.75 mg/dL Normal 0.51-0.95 [facility] Comment on above: Performed By: #### Charo NAM MG, BMP #### [address] [address] Electrolyte Balance 11.0 mEq/L Normal 4.0-15.0 [facility] Comment on above: Performed By: #### Charo NAM MG, BMP #### [address] [address] Globulin 4.2 G/dL Normal 2.7-4.4 [facility] Comment on above: Performed By: #### Charo NAM MG, BMP #### [address] [address] Glucose [Mass/Vol] 87 mg/dL Normal 70-105 [facility] Comment on above: Performed By: #### G FR, MG, BMP #### [address] [address] Potassium [Moles/Vol] 3.7 mmol/L Normal 3.5-5.1 [facility] Comment on above: Performed By: #### G FR, MG, BMP #### [address] [address] Sodium [Moles/Vol] 137 mmol/L Normal 136-145 [facility] Comment on above: Performed By: #### G FR, MG, BMP #### [address] [address] Total Protein 7.5 G/dL Normal 6.4-8.2 [facility] Comment on above: Performed By: #### G FR, MG, BMP #### [address] [address] Urea nitrogen [Mass/Vol] 8 mg/dL Normal 7-18 [facility] Comment on above: Performed By: #### G FR, MG, BMP #### [address] [address] FEon 09-24-2024 Iron [Mass/Vol] 61 ug/dL Normal 50-170 [facility] Comment on above: Performed By: #### G FR, MG, BMP #### [address] [address] Jm 09-24-2024 Ferritin [Mass/Vol] 27.0 ng/mL Normal 8.0-252.0 [facility] Comment on above: Performed By: #### G FR, MG, BMP #### [address] [address] LABORATORYOrdered By: SYSTEM SYSTEM on 09-24-2024 Albumin BCP dye [Mass/Vol] 3.3 G/dL Low 3.5 - 5.0 G/dL AO ADM SS Albumin/Globulin [Mass ratio] 0.8 {ratio} Low 1.1 - 2.5 ratio AO ADM SS ALP [Catalytic activity/Vol] 117 U/L Normal 40 - 135 U/L AO ADM SS ALT With P-5'-P [Catalytic activity/Vol] 24 U/L Normal 14 - 59 U/L AO ADM SS AST With P-5'-P [Catalytic activity/Vol] 18 U/L Normal 10 - 40 U/L AO ADM SS Basophils (Bld) [#/Vol] 0.0 103/mcL Normal 0.0 - 0.3 10^3/mcL AO Workflow SS Basophils/100 WBC (Bld) 0.3 % Normal 0.0 - 2.5 % AO Workflow SS Bilirubin [Mass/Vol] 0.3 mg/dL Normal 0.2 - 1 .0 mg/dL AO ADM SS Comment on above: Interpretive Data: U se of this assay is not recommended for patients undergoing treatment with eltrombopag due to the potential for falsely elevated results. Calcium [Mass/Vol] 9.6 mg/dL Normal 8.4 - 10. 2 mg/dL AO ADM SS Chloride [Moles/Vol] 99 mmol/L Normal 98 - 10 7 mmol/L AO ADM SS CO2 [Moles/Vol] 27 mmol/L Normal 22 - 29 mmol/L AO AD M SS Creatinine [Mass/Vol] 0.75 mg/dL Normal 0.51 - 0.95 mg/dL AO ADM SS Electrolyte Balance 11.0 mEq/L Normal 4.0 - 15 .0 mEq/L AO ADM SS Eosinophil, Absolute 0.1 103/mcL Normal 0.0 - 0 .7 10^3/mcL AO Workflow SS Eosinophils/100 WBC (Bld) 0.5 % Normal 0.0 - 6.0 % AO Workflow SS Erythrocyte distribution width (RBC) [Ratio] 14.5 % Normal 11.5 - 15.5 % AO Workflow SS Estimated Glomerular Filtration Rate 109 ml/min/1.73sqm Invalid Interpretation Code AO Chemistry S Comment on above: Interpretive Data: Stages of Chronic Kidney Disease (CKD) Stage Description eGFR(ml/min/1.73 sq.m.) CKD 1 Normal kidney function or >=90 normal kindney function with possible kidney damage (ex. Proteinuria) CKD 2 Kidney damage with mild loss 60-89 of kidney function CKD 3a Mild to moderate loss of kidney 45-59 function CKD 3b Moderate to severe loss of 30-44 of kindey function CKD 4 Severe loss of kidney function 15-29 CKD 5 Kidney failure <15 Note: (go live 2024) the eGFR calculation was updated to the 2020 CKD-EPI creatinine equation without a race factor to calculate the eGFR results. Ferritin [Mass/Vol] 27.0 ng/mL Normal 8.0 - 25 2.0 ng/mL AO ADM SS Globulin 4.2 G/dL Normal 2.7 - 4.4 G/dL AO ADM SS Glucose [Mass/Vol] 87 mg/dL Normal 70 - 105 mg/dL AO ADM SS Hematocrit (Bld) [Volume fraction] 39.8 % Normal 34.0 - 46.0 % AO Workflow SS Hemoglobin (Bld) [Mass/Vol] 13.2 G/dL Normal 12.0 - 16.0 G/dL AO Workflow SS Iron [Mass/Vol] 61 ug/dL Normal 50 - 170 mcg/dL AO ADM SS Lymphocytes (Bld) [#/Vol] 2.3 103/mcL Normal 0.9 - 4.3 10^3/mcL AO Workflow SS Lymphocytes/100 WBC (Bld) 20.7 % Normal 20.0 - 40.0 % AO Workflow SS Magnesium [Mass/Vol] 1.7 mg/dL Low 1.8 - 2 .4 mg/dL AO ADM SS MCH (RBC) [Entitic mass] 26.2 pg Low 27.0 - 33.0 pg AO Workflow SS MCHC 33.1 G/dL Normal 32.0 - 36.0 G/dL AO Workflow SS MCV (RBC) [Entitic vol] 79.2 fL Low 80.0 - 99.0 fL AO Workflow SS Monocytes (Bld) [#/Vol] 0.5 103/mcL Normal 0.1 - 1.4 10^3/mcL AO Workflow SS Monocytes/100 WBC (Bld) 5.0 % Normal 2.0 - 13.0 % AO Workflow SS Neutrophils (Bld) [#/Vol] 8.1 103/mcL Normal 2.3 - 8.1 10^3/mcL AO Workflow SS Neutrophils/100 WBC (Bld) 73.5 % Normal 50.0 - 75.0 % AO Workflow SS Platelet mean volume (Bld) [Entitic vol] 7.8 fL Normal 6.6 - 10.5 fL AO Workflow SS Platelets (Bld) [#/Vol] 353 103/mcL Normal 150 - 450 10^3/mcL AO Workflow SS Potassium [Moles/Vol] 3.7 mmol/L Normal 3.5 - 5.1 mmol/L AO ADM SS Protein [Mass/Vol] 7.5 G/dL Normal 6.4 - 8.2 G/dL AO ADM SS RBC (Bld) [#/Vol] 5.02 106/mcL Normal 4.10 - 5.3 0 10^6/mcL AO Workflow SS Sodium [Moles/Vol] 137 mmol/L Normal 136 - 145 mmol/L AO ADM SS TSH Qn 1.46 m[IU]/L Normal 0.36 - 3.74 mcIU/mL AO ADM SS Urea nitrogen [Mass/Vol] 8 mg/dL Normal 7 - 18 mg/dL AO ADM SS Urea nitrogen/Creatinine [Mass ratio] 11 ratio Normal 7 - 27 ratio AO ADM SS WBC (Bld) [#/Vol] 11.0 103/mcL High 4.5 - 10.8 10^3/mcL AO Workflow SS LABORATORYOrdered By: Noemy Sanchez on 09-24-2024 Cholesterol [Mass/Vol] 191 mg/dL Normal 0 - 200 mg/dL AO ADM SS Comment on above: Interpretive Data: C holesterol Reference Interval: Less than 200 Desirable 200-239 Borderline high risk 240 and above High risk Cholesterol in HDL [Mass/Vol] 48 mg/dL Normal 40 - 60 mg/dL AO ADM SS Cholesterol in LDL [Mass/Vol] 106 mg/dL Normal 0 - 130 mg/dL AO ADM SS Triglyceride [Mass/Vol] 186 mg/dL High 0 - 150 mg/dL AO ADM SS Comment on above: Interpretive Data: T riglyceride Reference Interval: Less than 150 Normal 150-199 Borderline high risk 200-499 High risk 500 or higher Very high risk LIPIDon 09-24-2024 Cholesterol [Mass/Vol] 191 mg/dL Normal 0-200 [facility] Comment on above: Result Comment: Chol esterol Reference Interval: Less than 200 Desirable 200-239 Borderline high risk 240 and above High risk Performed By: #### G FR, MG, BMP #### [id number] [place], [place] [address] Cholesterol in HDL [Mass/Vol] 48 mg/dL Normal 40-60 [facility] Comment on above: Performed By: #### G FR, MG, BMP #### [id number] [place], [place] [address] Cholesterol in LDL [Mass/Vol] 106 mg/dL Normal 0-130 [facility] Comment on above: Performed By: #### G FR, MG, BMP #### [address] [place], [place] [address] Triglyceride [Mass/Vol] 186 mg/dL High 0-150 [facility] Comment on above: Result Comment: Trig lyceride Reference Interval: Less than 150 Normal 150-199 Borderline high risk 200-499 High risk 500 or higher Very high risk Performed By: #### G FR, MG, BMP #### [address] [address] MGon 09-24-2024 Magnesium [Mass/Vol] 1.7 mg/dL Low 1.8-2.4 [facility] Comment on above: Performed By: #### G FR, MG, BMP #### [address] [address] TSHRon 09-24-2024 TSH Qn 1.46 m[IU]/L Normal 0.36-3.74 [facility] Comment on above: Performed By: #### G FR, MG, BMP #### [address] [address] .Auto Diffon 08-26-2024 Basophil, Absolute 0.1 10 3/mcL Normal 0.0-0.3 [facility] Comment on above: Performed By: #### 1 69007, 655121, 936008, 625508 #### [facility] [address] [place] [address] Basophils/100 WBC (Bld) 0.5 % Normal 0.0-2.5 [facility] Comment on above: Performed By: #### 1 06485, 785475, 002989, 066486 #### [facility] [address] [place] [address] Eosinophil, Absolute 0.1 10 3/mcL Normal 0.0-0.7 [facility] Comment on above: Performed By: #### 1 85178, 161499, 154007, 362746 #### [facility] [address] [place] [address] Eosinophils/100 WBC (Bld) 0.6 % Normal 0.0-6.0 [facility] Comment on above: Performed By: #### 1 28453, 042524, 533585, 158642 #### [facility] [address] [place] [address] Lymphocyte, Absolute 4.8 10 3/mcL High 0.9-4.3 [facility] Comment on above: Performed By: #### 1 48369, 042678, 451942, 366742 #### [place] [address] [place] [address] Lymphocytes/100 WBC (Bld) 30.0 % Normal 20.0-40.0 [facility] Comment on above: Performed By: #### 1 68901, 810601, 766892, 378227 #### [address] [address] Monocyte, Absolute 1.0 10 3/mcL Normal 0.1-1.4 [facility] Comment on above: Performed By: #### 1 41555, 669887, 518982, 164192 #### [place] [place] [address] Monocytes/100 WBC (Bld) 6.3 % Normal 2.0-13.0 [facility] Comment on above: Performed By: #### 1 28824, 548461, 664304, 925054 #### [place] [place] [address] Neutrophils/100 WBC (Bld) 62.6 % Normal 50.0-75.0 [facility] Comment on above: Performed By: #### 1 20937, 354502, 945305, 225420 #### [address] [address] .GFRon 08-26-2024 Estimated Glomerular Filtration Rate 102 ml/min/1.73sqm Normal [facility] Comment on above: Result Comment: Stages of Chronic Kidney Disease (CKD) Stage Description eGFR(ml/min/1.73 sq.m.) CKD 1 Normal kidney function or >=90 normal kindney function with possible kidney damage (ex. Proteinuria) CKD 2 Kidney damage with mild loss 60-89 of kidney function CKD 3a Mild to moderate loss of kidney 45-59 function CKD 3b Moderate to severe loss of 30-44 of kindey function CKD 4 Severe loss of kidney function 15-29 CKD 5 Kidney failure <15 Note: (go live 2024) the eGFR calculation was updated to the 2020 CKD-EPI creatinine equation without a race factor to calculate the eGFR results. Performed By: #### 1 41612, 787601, 124999, 686478 #### [address] [address] .NEUABSon 08-26-2024 Neutrophil, Absolute 10.0 10 3/mcL High 2.3-8.1 [facility] Comment on above: Performed By: #### 1 72270, 678371, 153973, 419416 #### [address] [address] B12on 08-26-2024 Cobalamin (Vitamin B12) [Mass/Vol] 1152 pg/mL High 211-911 [facility] Comment on above: Performed By: #### 1 32826, 037143, 213677, 589481 #### [address] [address] CBCon 08-26-2024 Erythrocyte distribution width (RBC) [Ratio] 14.7 % Normal 11.5-15.5 [facility] Comment on above: Performed By: #### 1 16342, 563804, 151395, 287343 #### [place] [address] Hematocrit (Bld) [Volume fraction] 38.3 % Normal 34.0-46.0 [facility] Comment on above: Performed By: #### 1 69618, 934046, 687859, 343436 #### [address] [address] Hgb 12.8 G/dL Normal 12.0-16.0 [facility] Comment on above: Performed By: #### 1 10830, 572015, 712169, 502896 #### [facility] [address] [place] [address] MCH (RBC) [Entitic mass] 26.2 pg Low 27.0-33.0 [facility] Comment on above: Performed By: #### 1 25898, 614582, 844261, 092828 #### [facility] [address] [place] [address] MCHC 33.3 G/dL Normal 32.0-36.0 [facility] Comment on above: Performed By: #### 1 76700, 177332, 583681, 448593 #### [facility] [address] [place] [address] MCV (RBC) [Entitic vol] 78.7 fL Low 80.0-99.0 [facility] Comment on above: Performed By: #### 1 58737, 284600, 825532, 832602 #### [facility] [address] [place] [address] Platelet 338 10 3/mcL Normal 150-450 [facility] Comment on above: Performed By: #### 1 97209, 465226, 577303, 792242 #### [facility] [address] [place] [address] Platelet mean volume (Bld) [Entitic vol] 7.2 fL Normal 6.6-10.5 [facility] Comment on above: Performed By: #### 1 42957, 063142, 697674, 559736 #### [facility] [address] [place], [place] [address] RBC 4.86 10 6/mcL Normal 4.10-5.30 [facility] Comment on above: Performed By: #### 1 90042, 125055, 615633, 482873 #### [facility] [address] [place], [place] [address] WBC 16.0 10 3/mcL High 4.5-10.8 [facility] Comment on above: Performed By: #### 1 04812, 927342, 368157, 722285 #### [place] [place] [address] CMPon 08-26-2024 Albumin Level 3.1 G/dL Low 3.5-5.0 [facility] Comment on above: Performed By: #### 1 89656, 865921, 990747, 849487 #### [facility] [address] [place] [address] Albumin/Globulin [Mass ratio] 0.7 {ratio} Low 1.1-2.5 [facility] Comment on above: Performed By: #### 1 61874, 809242, 981319, 424225 #### [address] [address] ALP [Catalytic activity/Vol] 117 U/L Normal 40-135 [facility] Comment on above: Performed By: #### 1 95056, 350901, 599844, 335472 #### [address] [address] ALT [Catalytic activity/Vol] 29 U/L Normal 14-59 [facility] Comment on above: Performed By: #### 1 96650, 663095, 180470, 627218 #### [address] [address] AST [Catalytic activity/Vol] 14 U/L Normal 10-40 [facility] Comment on above: Performed By: #### 1 26813, 775899, 207379, 710009 #### [address] [address] Bili Total 0.3 mg/dL Normal 0.2-1.0 [facility] Comment on above: Result Comment: Use of this assay is not recommended for patients undergoing treatment with eltrombopag due to the potential for falsely elevated results. Performed By: #### 1 61989, 100040, 373201, 463197 #### [place] [id number] BUN/Creatinine Ratio 13 ratio Normal 7-27 [facility] Comment on above: Performed By: #### 1 95503, 441204, 363400, 970950 #### [place] [address] [place] [address] Calcium [Mass/Vol] 9.4 mg/dL Normal 8.4-10.2 [facility] Comment on above: Performed By: #### 1 17816, 732754, 710412, 864979 #### [address] [place] [address] Chloride [Moles/Vol] 102 mmol/L Normal 98-107 [facility] Comment on above: Performed By: #### 1 83873, 597538, 142504, 663895 #### [address] [address] CO2 [Moles/Vol] 32 mmol/L High 22-29 [facility] Comment on above: Performed By: #### 1 46041, 602546, 844755, 736296 #### [address] [address] Creatinine [Mass/Vol] 0.79 mg/dL Normal 0.51-0.95 [facility] Comment on above: Performed By: #### 1 45130, 286533, 599341, 324526 #### [address] [address] Electrolyte Balance 7.0 mEq/L Normal 4.0-15.0 [facility] Comment on above: Performed By: #### 1 70209, 134324, 252111, 329536 #### [address] [address] Globulin 4.2 G/dL Normal 2.7-4.4 [facility] Comment on above: Performed By: #### 1 88334, 060975, 709162, 460369 #### [place] [address] [place] [address] Glucose [Mass/Vol] 91 mg/dL Normal 70-105 [facility] Comment on above: Performed By: #### 1 95107, 461980, 654216, 931645 #### [place] [address] [place] [address] Potassium [Moles/Vol] 3.1 mmol/L Low 3.5-5.1 [facility] Comment on above: Performed By: #### 1 99154, 296944, 638208, 947618 #### [place] [address] [place] [address] Sodium [Moles/Vol] 141 mmol/L Normal 136-145 [facility] Comment on above: Performed By: #### 1 16489, 535005, 049596, 554705 #### [address] [address] Total Protein 7.3 G/dL Normal 6.4-8.2 [facility] Comment on above: Performed By: #### 1 83096, 178661, 189413, 906280 #### [address] [address] Urea nitrogen [Mass/Vol] 10 mg/dL Normal 7-18 [facility] Comment on above: Performed By: #### 1 69232, 911450, 611187, 429662 #### [address] [address] Jm 08-26-2024 Ferritin [Mass/Vol] 12.0 ng/mL Normal 8.0-252.0 [facility] Comment on above: Performed By: #### 1 43301, 868422, 451406, 717559 #### [address] [address] FESon 08-26-2024 Iron [Mass/Vol] 31 ug/dL Low 50-170 [facility] Comment on above: Performed By: #### 1 14785, 046129, 139660, 520414 #### [place] [address] [place] [address] Iron Sat 8 % Normal [facility] Comment on above: Performed By: #### 1 84535, 010867, 634473, 387968 #### [address] [place], [place] [address] TIBC 393 mcg/dL Normal 250-450 [facility] Comment on above: Performed By: #### 1 29529, 254236, 098814, 555015 #### [facility] [address] [place] [address] FOLon 08-26-2024 Folate 5.65 ng/mL Normal 5.38-24.00 [facility] Comment on above: Performed By: #### 1 61175, 075031, 765215, 120924 #### [facility] [address] [place] [address] LABORATORYOrdered By: Noemy Sanchez on 08-26-2024 Albumin DL <= 20 mg/L (U) [Mass/Vol] 3.4 mg/L Invalid Interpretation Code AO ADM SS Albumin/Creatinine DL <= 20 mg/L (U) [Mass ratio] 13 mg/G Normal 0 - 30 mg/G AO Chemistry S Creatinine (U) [Mass/Vol] 25.7 mg/dL Low 29.0 - 226.0 mg/dL AO ADM SS LABORATORYOrdered By: SYSTEM SYSTEM on 08-26-2024 25-hydroxyvitamin D3 [Mass/Vol] 63.4 ng/mL Invalid Interpretation Code AO ADM SS Comment on above: Interpretive Data: I nterpretive Values Based on Total 25(OH) Vitamin D: Deficient <20 ng/mL Insufficient 20 - <30 ng/mL Sufficient 30-100 ng/mL Albumin BCP dye [Mass/Vol] 3.1 G/dL Low 3.5 - 5.0 G/dL AO ADM SS Albumin/Globulin [Mass ratio] 0.7 {ratio} Low 1.1 - 2.5 ratio AO ADM SS ALP [Catalytic activity/Vol] 117 U/L Normal 40 - 135 U/L AO ADM SS ALT With P-5'-P [Catalytic activity/Vol] 29 U/L Normal 14 - 59 U/L AO ADM SS AST With P-5'-P [Catalytic activity/Vol] 14 U/L Normal 10 - 40 U/L AO ADM SS Basophils (Bld) [#/Vol] 0.1 103/mcL Normal 0.0 - 0.3 10^3/mcL AO Workflow SS Basophils/100 WBC (Bld) 0.5 % Normal 0.0 - 2.5 % AO Workflow SS Bilirubin [Mass/Vol] 0.3 mg/dL Normal 0.2 - 1 .0 mg/dL AO ADM SS Comment on above: Interpretive Data: U se of this assay is not recommended for patients undergoing treatment with eltrombopag due to the potential for falsely elevated results. Calcium [Mass/Vol] 9.4 mg/dL Normal 8.4 - 10. 2 mg/dL AO ADM SS Chloride [Moles/Vol] 102 mmol/L Normal 98 - 10 7 mmol/L AO ADM SS CO2 [Moles/Vol] 32 mmol/L High 22 - 29 mmol/L AO AD M SS Cobalamin (Vitamin B12) [Mass/Vol] 1152 pg/mL High 211 - 911 pg/mL AH ADM SS Creatinine [Mass/Vol] 0.79 mg/dL Normal 0.51 - 0.95 mg/dL AO ADM SS Electrolyte Balance 7.0 mEq/L Normal 4.0 - 15 .0 mEq/L AO ADM SS Eosinophil, Absolute 0.1 103/mcL Normal 0.0 - 0 .7 10^3/mcL AO Workflow SS Eosinophils/100 WBC (Bld) 0.6 % Normal 0.0 - 6.0 % AO Workflow SS Erythrocyte distribution width (RBC) [Ratio] 14.7 % Normal 11.5 - 15.5 % AO Workflow SS Estimated Glomerular Filtration Rate 102 ml/min/1.73sqm Invalid Interpretation Code AO Chemistry S Comment on above: Interpretive Data: Stages of Chronic Kidney Disease (CKD) Stage Description eGFR(ml/min/1.73 sq.m.) CKD 1 Normal kidney function or >=90 normal kindney function with possible kidney damage (ex. Proteinuria) CKD 2 Kidney damage with mild loss 60-89 of kidney function CKD 3a Mild to moderate loss of kidney 45-59 function CKD 3b Moderate to severe loss of 30-44 of kindey function CKD 4 Severe loss of kidney function 15-29 CKD 5 Kidney failure <15 Note: (go live 2024) the eGFR calculation was updated to the 2020 CKD-EPI creatinine equation without a race factor to calculate the eGFR results. Ferritin [Mass/Vol] 12.0 ng/mL Normal 8.0 - 25 2.0 ng/mL AO ADM SS Folate [Mass/Vol] 5.65 ng/mL Normal 5.38 - 24. 00 ng/mL AH ADM SS Globulin 4.2 G/dL Normal 2.7 - 4.4 G/dL AO ADM SS Glucose [Mass/Vol] 91 mg/dL Normal 70 - 105 mg/dL AO ADM SS Hematocrit (Bld) [Volume fraction] 38.3 % Normal 34.0 - 46.0 % AO Workflow SS Hemoglobin (Bld) [Mass/Vol] 12.8 G/dL Normal 12.0 - 16.0 G/dL AO Workflow SS Iron [Mass/Vol] 31 ug/dL Low 50 - 170 mcg/dL AO ADM SS Iron binding capacity [Mass/Vol] 393 mcg/dL Normal 250 - 450 mcg/dL AO ADM SS Iron Sat 8 % Invalid Interpretation Code AO ADM SS Lymphocytes (Bld) [#/Vol] 4.8 103/mcL High 0.9 - 4.3 10^3/mcL AO Workflow SS Lymphocytes/100 WBC (Bld) 30.0 % Normal 20.0 - 40.0 % AO Workflow SS Magnesium [Mass/Vol] 1.7 mg/dL Low 1.8 - 2 .4 mg/dL AO ADM SS MCH (RBC) [Entitic mass] 26.2 pg Low 27.0 - 33.0 pg AO Workflow SS MCHC 33.3 G/dL Normal 32.0 - 36.0 G/dL AO Workflow SS MCV (RBC) [Entitic vol] 78.7 fL Low 80.0 - 99.0 fL AO Workflow SS Monocytes (Bld) [#/Vol] 1.0 103/mcL Normal 0.1 - 1.4 10^3/mcL AO Workflow SS Monocytes/100 WBC (Bld) 6.3 % Normal 2.0 - 13.0 % AO Workflow SS Neutrophils (Bld) [#/Vol] 10.0 103/mcL High 2.3 - 8.1 10^3/mcL AO Workflow SS Neutrophils/100 WBC (Bld) 62.6 % Normal 50.0 - 75.0 % AO Workflow SS Platelet mean volume (Bld) [Entitic vol] 7.2 fL Normal 6.6 - 10.5 fL AO Workflow SS Platelets (Bld) [#/Vol] 338 103/mcL Normal 150 - 450 10^3/mcL AO Workflow SS Potassium [Moles/Vol] 3.1 mmol/L Low 3.5 - 5.1 mmol/L AO ADM SS Protein [Mass/Vol] 7.3 G/dL Normal 6.4 - 8.2 G/dL AO ADM SS RBC (Bld) [#/Vol] 4.86 106/mcL Normal 4.10 - 5.3 0 10^6/mcL AO Workflow SS Sodium [Moles/Vol] 141 mmol/L Normal 136 - 145 mmol/L AO ADM SS TSH Qn 2.64 m[IU]/L Normal 0.36 - 3.74 mcIU/mL AO ADM SS Urea nitrogen [Mass/Vol] 10 mg/dL Normal 7 - 18 mg/dL AO ADM SS Urea nitrogen/Creatinine [Mass ratio] 13 ratio Normal 7 - 27 ratio AO ADM SS WBC (Bld) [#/Vol] 16.0 103/mcL High 4.5 - 10.8 10^3/mcL AO Workflow SS MALBRon 08-26-2024 U Creatinine 25.7 mg/dL Low 29.0-226.0 [facility] Comment on above: Performed By: #### M ALBR #### [address] [place], [place] [address] U Microalb 3.4 mg/L Normal [facility] Comment on above: Performed By: #### M ALBR #### [address] [place], [place] [address] U Ratio Alb/Cre 13 mg/G Normal 0-30 [facility] Comment on above: Performed By: #### M ALBR #### [address] [place], [place] [address] MGon 08-26-2024 Magnesium [Mass/Vol] 1.7 mg/dL Low 1.8-2.4 [facility] Comment on above: Performed By: #### 1 74277, 133624, 896955, 598872 #### [facility] [address] [place] [address] TSHRon 08-26-2024 TSH Qn 2.64 m[IU]/L Normal 0.36-3.74 [facility] Comment on above: Performed By: #### 1 05984, 549995, 590789, 766184 #### [place] [address] [place] [address] VIDHon 08-26-2024 Vit. D 25-Hydroxy 63.4 ng/mL Normal [facility] Comment on above: Result Comment: Inte rpretive Values Based on Total 25(OH) Vitamin D: Deficient <20 ng/mL Insufficient 20 - <30 ng/mL Sufficient 30-100 ng/mL Performed By: #### 1 12763, 040466, 910431, 772946 #### [address] [address] .GFRon 08-08-2024 Estimated Glomerular Filtration Rate 109 ml/min/1.73sqm Normal [facility] Comment on above: Result Comment: Stages of Chronic Kidney Disease (CKD) Stage Description eGFR(ml/min/1.73 sq.m.) CKD 1 Normal kidney function or >=90 normal kindney function with possible kidney damage (ex. Proteinuria) CKD 2 Kidney damage with mild loss 60-89 of kidney function CKD 3a Mild to moderate loss of kidney 45-59 function CKD 3b Moderate to severe loss of 30-44 of kindey function CKD 4 Severe loss of kidney function 15-29 CKD 5 Kidney failure <15 Note: (go live 2024) the eGFR calculation was updated to the 2020 CKD-EPI creatinine equation without a race factor to calculate the eGFR results. Performed By: #### 1 70859, 741837, 988517, 200991 #### [place] [address] [place] [address] BMPon 08-08-2024 BUN/Creatinine Ratio 11 ratio Normal 7-27 [facility] Comment on above: Performed By: #### 1 89642, 635388, 524128, 281219 #### [address] [place] [address] Calcium [Mass/Vol] 9.2 mg/dL Normal 8.4-10.2 [facility] Comment on above: Performed By: #### 1 62691, 876162, 208863, 044324 #### [place] [address] [place] [address] Chloride [Moles/Vol] 98 mmol/L Normal 98-107 [facility] Comment on above: Performed By: #### 1 55860, 605814, 385464, 273726 #### [address] [place] [address] CO2 [Moles/Vol] 29 mmol/L Normal 22-29 [facility] Comment on above: Performed By: #### 1 04817, 702326, 187534, 920446 #### [facility] [address] [place] [address] Creatinine [Mass/Vol] 0.75 mg/dL Normal 0.51-0.95 [facility] Comment on above: Performed By: #### 1 15270, 558665, 824863, 871618 #### [address] [place] [address] Electrolyte Balance 8.0 mEq/L Normal 4.0-15.0 [facility] Comment on above: Performed By: #### 1 80151, 608107, 885656, 982270 #### [address] [address] Glucose [Mass/Vol] 104 mg/dL Normal 70-105 [facility] Comment on above: Performed By: #### 1 34747, 292333, 793180, 534770 #### [address] [address] Potassium [Moles/Vol] 3.0 mmol/L Low 3.5-5.1 [facility] Comment on above: Performed By: #### 1 91660, 714647, 974642, 176674 #### [address] [place] [address] Sodium [Moles/Vol] 135 mmol/L Low 136-145 [facility] Comment on above: Performed By: #### 1 59713, 000602, 628525, 802009 #### [address] [address] Urea nitrogen [Mass/Vol] 8 mg/dL Normal 7-18 [facility] Comment on above: Performed By: #### 1 86774, 008366, 321988, 591964 #### [place] [address] LABORATORYOrdered By: SYSTEM SYSTEM on 08-08-2024 Calcium [Mass/Vol] 9.2 mg/dL Normal 8.4 - 10. 2 mg/dL AO ADM SS Chloride [Moles/Vol] 98 mmol/L Normal 98 - 10 7 mmol/L AO ADM SS CO2 [Moles/Vol] 29 mmol/L Normal 22 - 29 mmol/L AO AD M SS Creatinine [Mass/Vol] 0.75 mg/dL Normal 0.51 - 0.95 mg/dL AO ADM SS Electrolyte Balance 8.0 mEq/L Normal 4.0 - 15 .0 mEq/L AO ADM SS Estimated Glomerular Filtration Rate 109 ml/min/1.73sqm Invalid Interpretation Code AO Chemistry S Comment on above: Interpretive Data: Stages of Chronic Kidney Disease (CKD) Stage Description eGFR(ml/min/1.73 sq.m.) CKD 1 Normal kidney function or >=90 normal kindney function with possible kidney damage (ex. Proteinuria) CKD 2 Kidney damage with mild loss 60-89 of kidney function CKD 3a Mild to moderate loss of kidney 45-59 function CKD 3b Moderate to severe loss of 30-44 of kindey function CKD 4 Severe loss of kidney function 15-29 CKD 5 Kidney failure <15 Note: (go live 2024) the eGFR calculation was updated to the 2020 CKD-EPI creatinine equation without a race factor to calculate the eGFR results. Glucose [Mass/Vol] 104 mg/dL Normal 70 - 105 mg/dL AO ADM SS Magnesium [Mass/Vol] 1.6 mg/dL Low 1.8 - 2 .4 mg/dL AO ADM SS Potassium [Moles/Vol] 3.0 mmol/L Low 3.5 - 5.1 mmol/L AO ADM SS Sodium [Moles/Vol] 135 mmol/L Low 136 - 145 mmol/L AO ADM SS Urea nitrogen [Mass/Vol] 8 mg/dL Normal 7 - 18 mg/dL AO ADM SS Urea nitrogen/Creatinine [Mass ratio] 11 ratio Normal 7 - 27 ratio AO ADM SS MGon 08-08-2024 Magnesium [Mass/Vol] 1.6 mg/dL Low 1.8-2.4 [facility] Comment on above: Performed By: #### 1 80345, 116713, 115623, 730195 #### [place] [address] [place] [address] Gastroenterology Visit Repor ton 08-06-2024 Gastroenterology Visit Report [facility] [address] [place] [address] OFFICE VISIT Date of Service: 08/06/24 MR#: [id number] Acct: [id number] Name: MARIA T WYNNE Rep #: [id number] : 1995 Provider: ELIANA barnard Age/Sex: 29/F Location: [facility] [place] Status: Signed Intake Vital Signs 05/22/24 14:35 07/08/24 15:27 08/06/24 14:38 Height 4 ft 11 in 4 ft 11 in 4 ft 11 in Weight: 183 lb BMI 36.9 BP 132/84 H Blood Pressure Location Rt brachial Position Sitting Respiration 16 Pulse 105 H Pulse Source Monitor Pulse Oximetry (%) 95 Intake Visit Reasons: Test Result Chief Complaint: constipation Allergies clindamycin Allergy (Mild, Verified 07/08/24 15:27) Unknown nickel (Nickel) Allergy (Verified 07/08/24 15:27) Unknown Penicillins Allergy (Verified 07/08/24 15:27) Shortness of breath naproxen Adverse Reaction (Intermediate, Verified 07/08/24 15:27) Other amoxicillin Adverse Reaction (Mild, Verified 07/08/24 15:27) Rash lubiprostone (From Amitiza) Adverse Reaction (Mild, Verified 07/08/24 15:27) Rash dicyclomine (From Bentyl) Adverse Reaction (Verified 07/08/24 15:27) cramps, constipation, chest pain doxycycline Adverse Reaction (Verified 07/08/24 15:27) Vomiting metronidazole (From Flagyl) Adverse Reaction (Verified 07/08/24 15:27) Upset Stomach sulfamethoxazole (From Bactrim) Adverse Reaction (Verified 07/08/24 15:27) Upset Stomach trimethoprim (From Bactrim) Adverse Reaction (Verified 07/08/24 15:27) Upset Stomach Medications ???Medication ???Instructions ???Recorded ???Confirmed ???Type buprenorphine 2.9 mg-naloxone 0.71 2 tab sublingual QDAY 03/26/24 0 08/06/24 History mg sublingual tablet cholecalciferol (vitamin D3) 50 50 mcg PO QDAY 03/26/24 08/06/24 H istory mcg (2,000 unit) capsule clonidine HCl 0.1 mg tablet 0.1 mg PO QHS 03/26/24 08/06/24 Hi story ezetimibe 10 mg tablet 10 mg PO QDAY 03/26/24 08/06/24 Hi story hydrochlorothiazide 25 mg tablet 50 mg PO DAILY 03/26/24 08/06/24 H istory hydroxyzine HCl 50 mg tablet 100 mg PO QHS 03/26/24 08/06/24 Hi story methocarbamol 750 mg tablet 750 mg PO TID 03/26/24 08/06/24 Hi story pregabalin 300 mg capsule 300 mg PO QHS 03/26/24 08/06/24 Hi story tirzepatide 5 mg/0.5 mL 5 mg subcut QWEEK 03/26/24 5 History subcutaneous pen injector omeprazole 40 mg capsule,delayed 40 mg PO BID #180 caps 03/27/24 Rx release potassium chloride 10 mEq 10 meq PO QDAY 03/27/24 08/06/24 H istory tablet,extended release lactulose 10 gram/15 mL oral 30 g (45 mL) PO TID constipation 0 04/24/24 08/06/24 Rx solution #946 mL ondansetron 4 mg disintegrating 4 mg PO .COMPLEX #15 tabs 05/22/24 08/06/24 Rx tablet peg 3350-electrolytes 236 240 ml PO Q10M #4,000 mL 05/22/24 08/06/24 Rx gram-22.74 gram-6.74 gram-5.86 gram solution (Golytely) acyclovir 400 mg tablet 800 mg PO DAILY 07/08/24 08/06/24 History biotin 2,500 mcg capsule 2,500 mcg PO DAILY 07/08/24 History calcium citrate 500 mg PO DAILY 07/08/24 08/06/24 History clobetasol 0.05 % topical ointment 1 applic topical BID 07/08/24 History metformin 500 mg tablet,extended 1,000 mg PO BID 07/08/24 08/06/24 History release 24 hr metoclopramide HCl 10 mg tablet 10 mg PO QAC gastroparesis #9 tabs 07/08/24 08/06/24 Rx norethindrone 1 mg-ethinyl 1 tab PO DAILY 07/08/24 08/06/24 H istory estradiol 20 mcg ()-iron 75 mg (7) tablet (Myra Fe 04/01 ()) polyethylene glycol 3350 17 17 g PO TID 07/08/24 08/06/24 Hist ory gram/dose oral powder potassium chloride 20 mEq oral 40 meq PO BID 5 days #100 ea 07/0808/06/24 Rx packet pregabalin 150 mg capsule 150 mg PO BID 07/08/24 08/06/24 Hi story tralokinumab-ldrm 300 mg/2 mL 300 mg subcut Q14D 07/08/24 History subcutaneous auto-injector (Adbry) rifaximin 550 mg tablet (Xifaxan) 550 mg PO TID #42 tabs 08/06/24 0 08/06/24 Rx tenapanor 50 mg tablet (Ibsrela) 50 mg PO BID #60 tabs 08/06/24 Rx PFSH Medical History TMJ syndrome Rectal bleeding Insulin resistance Insomnia Subclinical hypothyroidism Substance abuse GERD (gastroesophageal reflux disease) Hepatitis Migraines Fibromyalgia Low potassium syndrome Vitamin deficiency Seizures Carpal tunnel syndrome Seasonal allergies Surgical History History of colonoscopy History of shoulder surgery History of History of appendectomy HISTORY NECK INJECTIONS Family History Father Diabetes Grandfather Diabetes Grandmother Diabetes Other Alcoholism (more content not included)... [facility] Hepatitis A Antibody IgG Positive Normal [facility] Comment on above: Result Comment: This result suggests recent or past exposure to hepatitis A virus or hepatitis A vaccination. Clinical correlation required. Performed By: [facility] [place] [address] [id number] [place] Supervisor: Quoc Harden III, M.D. CLIA#: [id number] Performed By: #### M ALBR #### [address] [address] HBCMon 07-09-2024 Hep B Core IgM Ab Non-Reactive Normal Non-Reactive [facility] Comment on above: Performed By: #### M ALBR #### [address] [address] Hep B Core IgM Ab Int Normal [facility] Comment on above: Result Comment: Samp les with a value < 0.80 Index are considered nonreactive (negative) for IgM antibodies to hepatitis B core antigen. See Interp Performed By: #### M ALBR #### [address] [address] HBSABon 07-09-2024 Hep B Surf Ab 917.3 mIU/mL Normal >=10.0 [facility] Comment on above: Result Comment: 0 to < 10.0 mIU/mL Nonreactive Patient is considered not to have protective immunity to HBV infection >/= 10.0 mIU/mL Reactive Patient is considered to have protective immunity to HBV infection. This assay is traceable to the World Health Organization (WHO) Hepatitis B Immunoglobulin 1st International Reference Preparation (1976). The accepted criteria for immunity to HBV is anti-HBs activity >/= 10.0 mIU/mL, as defined by the WHO International Reference Preparation. Performed By: #### M ALBR #### [address] [address] HBSAGon 07-09-2024 Hep B Surf Ag Non-Reactive Normal Non-Reactive [facility] Comment on above: Performed By: #### M ALBR #### [address] [address] HCQPCRon 07-09-2024 HCV Test Info Comment Normal [facility] Comment on above: Result Comment: The quantitative range of this assay is 15 IU/mL to 100 million IU/mL. Performed At: [address] [id number] Dillon Arguelles MD Ph:[phone] Performed By: #### M ALBR #### [address] [place], [place] [address] Hep C Qn Not detected Normal [facility] Comment on above: Performed By: #### M ALBR #### [address] [place], [place] [address] INSLNon 07-09-2024 Insulin 16.79 munit/L Normal 2.60-37.60 [facility] Comment on above: Performed By: #### 1 27247, 331159, 942098, 724983 #### [facility] [address] [place] [address] .GFRon 07-08-2024 Estimated Glomerular Filtration Rate 90 ml/min/1.73sqm Normal [facility] Comment on above: Result Comment: Stages of Chronic Kidney Disease (CKD) Stage Description eGFR(ml/min/1.73 sq.m.) CKD 1 Normal kidney function or >=90 normal kindney function with possible kidney damage (ex. Proteinuria) CKD 2 Kidney damage with mild loss 60-89 of kidney function CKD 3a Mild to moderate loss of kidney 45-59 function CKD 3b Moderate to severe loss of 30-44 of kindey function CKD 4 Severe loss of kidney function 15-29 CKD 5 Kidney failure <15 Note: (go live 2024) the eGFR calculation was updated to the 2020 CKD-EPI creatinine equation without a race factor to calculate the eGFR results. Performed By: #### 1 20893, 923942, 520889, 332228 #### [facility] [address] [place] [address] A1Con 07-08-2024 Glucose [Mass/Vol] 108 mg/dL Normal [facility] Comment on above: Result Comment: Serina mated Average Glucose calculated by equation ((28.7xA1C)-46.7) Estimated average glucose (eAG) is a calculated value from Hemoglobin A1C and is community health representative of the average blood glucose level in the last 2-3 month period. Normal range: less than 114 mg/dL Performed By: #### 1 49304, 046122, 713975, 494042 #### [facility] [address] [place] [address] HbA1c (Bld) [Mass fraction] 5.4 % Normal 4.3-6.4 [facility] Comment on above: Performed By: #### 1 33542, 694914, 581870, 892500 #### [facility] [address] [place] [address] CBC W/Diff, Automatedon 06-12 Absolute Lymph 3.83 X10 3/uL Normal 0.83-4.51 [facility] Comment on above: Performed By: #### L 100.0100, L500.4050, L501.5200 #### [facility] [address] [place], [address] Absolute Neut 9.1 X10 3/uL High 2.0-7.7 [facility] Comment on above: Performed By: #### L 100.0100, L500.4050, L501.5200 #### [facility] [address] [place], [address] Basophils/100 WBC (Bld) 0.4 % Normal 0-1 [facility] Comment on above: Performed By: #### L 100.0100, L500.4050, L501.5200 #### [facility] [address] [place], [address] Eosinophils/100 WBC (Bld) 0.4 % Normal 0-5 [facility] Comment on above: Performed By: #### L 100.0100, L500.4050, L501.5200 #### [facility] [address] [place], [address] Erythrocyte distribution width (RBC) [Ratio] 13.8 % Normal 11.6-14.6 [facility] Comment on above: Performed By: #### L 100.0100, L500.4050, L501.5200 #### [facility] [address] [place], [address] Hematocrit (Bld) [Volume fraction] 34.2 % Low 37-47 [facility] Comment on above: Performed By: #### L 100.0100, L500.4050, L501.5200 #### [facility] [address] [place], [address] Hemoglobin (Bld) [Mass/Vol] 12.1 g/dL Normal 12.0-15.0 [facility] Comment on above: Performed By: #### L 100.0100, L500.4050, L501.5200 #### [facility] [address] [place], [address] IG% 0.600 Normal 0.0-0.9 [facility] Comment on above: Result Comment: IG% - Immature Granulocytes (promyelocytes, myelocytes and metamyelocytes) > 1% indicates that a LEFT SHIFT is Present. Performed By: #### L 100.0100, L500.4050, L501.5200 #### [facility] [address] [place], [address] Lymphocytes/100 WBC (Bld) 27.5 % Normal 19-41 [facility] Comment on above: Performed By: #### L 100.0100, L500.4050, L501.5200 #### [facility] [address] [place], [address] MCH (RBC) [Entitic mass] 27.1 pg Normal 27.0-32.0 [facility] Comment on above: Performed By: #### L 100.0100, L500.4050, L501.5200 #### [facility] [address] [place], [address] MCHC (RBC) [Mass/Vol] 35.4 g/dL Normal 32-36 [facility] Comment on above: Performed By: #### L 100.0100, L500.4050, L501.5200 #### [facility] [address] [place], [address] MCV (RBC) [Entitic vol] 76.7 fL Low 81-99 [facility] Comment on above: Performed By: #### L 100.0100, L500.4050, L501.5200 #### [facility] [address] [place], [address] Monocytes/100 WBC (Bld) 5.8 % Normal 0-10 [facility] Comment on above: Performed By: #### L 100.0100, L500.4050, L501.5200 #### [facility] [address] [place], [address] Neutrophils/100 WBC (Bld) 65.3 % Normal 47-70 [facility] Comment on above: Performed By: #### L 100.0100, L500.4050, L501.5200 #### [facility] [address] [place], [address] Nucleated RBC (Bld) [#/Vol] 0 10*3/uL Normal 0-5 [facility] Comment on above: Performed By: #### L 100.0100, L500.4050, L501.5200 #### [facility] [address] [place], [address] Platelet mean volume (Bld) [Entitic vol] 10.0 fL Normal 6.2-12.0 [facility] Comment on above: Performed By: #### L 100.0100, L500.4050, L501.5200 #### [facility] [address] [place], [address] Platelets (Bld) [#/Vol] 405 10*3/uL Normal 150-450 [facility] Comment on above: Performed By: #### L 100.0100, L500.4050, L501.5200 #### [facility] [address] [place], [address] RBC (Bld) [#/Vol] 4.46 10*6/uL Normal 4.2-5.4 [facility] Comment on above: Performed By: #### L 100.0100, L500.4050, L501.5200 #### [facility] [address] [place], [address] RDW SD 38.1 fl Normal 35.1-43.9 [facility] Comment on above: Performed By: #### L 100.0100, L500.4050, L501.5200 #### [facility] [address] [place], [address] WBC (Bld) [#/Vol] 13.9 10*3/uL High 4.4-11.0 [facility] Comment on above: Performed By: #### L 100.0100, L500.4050, L501.5200 #### [facility] [address] [place], [address] CMPon 07-08-2024 Albumin Level 3.3 G/dL Low 3.5-5.0 [facility] Comment on above: Performed By: #### 1 40252, 302800, 253644, 749416 #### [place] [address] [place] [address] Albumin/Globulin [Mass ratio] 0.8 {ratio} Low 1.1-2.5 [facility] Comment on above: Performed By: #### 1 91049, 275771, 453522, 586298 #### [facility] [address] [place] [address] ALP [Catalytic activity/Vol] 125 U/L Normal 40-135 [facility] Comment on above: Performed By: #### 1 13299, 796085, 047558, 633456 #### [facility] [address] [place] [address] ALT [Catalytic activity/Vol] 28 U/L Normal 14-59 [facility] Comment on above: Performed By: #### 1 23916, 718448, 705715, 672727 #### [facility] [address] [place] [address] AST [Catalytic activity/Vol] 16 U/L Normal 10-40 [facility] Comment on above: Performed By: #### 1 36325, 373579, 666759, 779697 #### [facility] [address] [place] [address] Bili Total 0.6 mg/dL Normal 0.2-1.0 [facility] Comment on above: Result Comment: Use of this assay is not recommended for patients undergoing treatment with eltrombopag due to the potential for falsely elevated results. Performed By: #### 1 45795, 910487, 587861, 687410 #### [address] [address] BUN/Creatinine Ratio 9 ratio Normal 7-27 [facility] Comment on above: Performed By: #### 1 16557, 616377, 893852, 935684 #### [address] [address] Calcium [Mass/Vol] 9.5 mg/dL Normal 8.4-10.2 [facility] Comment on above: Performed By: #### 1 22946, 930528, 452409, 238765 #### [place] [address] [place] [address] Chloride [Moles/Vol] 97 mmol/L Low 98-107 [facility] Comment on above: Performed By: #### 1 84883, 632723, 784016, 188167 #### [place] [address] [place] [address] CO2 [Moles/Vol] 28 mmol/L Normal 22-29 [facility] Comment on above: Performed By: #### 1 79166, 902717, 802653, 431654 #### [facility] [address] [place] [address] Creatinine [Mass/Vol] 0.88 mg/dL Normal 0.51-0.95 [facility] Comment on above: Performed By: #### 1 27777, 003491, 780922, 009854 #### [place] [address] [place] [address] Electrolyte Balance 10.0 mEq/L Normal 4.0-15.0 [facility] Comment on above: Performed By: #### 1 68856, 915745, 841700, [id number] #### [place] [address] [place] [address] Globulin 4.3 G/dL Normal 2.7-4.4 [facility] Comment on above: Performed By: #### 1 64971, 123242, 131833, 046887 #### [place] [address] [place] [address] Glucose [Mass/Vol] 86 mg/dL Normal 70-105 [facility] Comment on above: Performed By: #### 1 94867, 703365, 513214, 385211 #### [address] [address] Potassium [Moles/Vol] 2.6 mmol/L Critically abnormal 3.5-5.1 [facility] Comment on above: Performed By: #### 1 08314, 729771, 047066, 563013 #### [address] [address] Sodium [Moles/Vol] 135 mmol/L Low 136-145 [facility] Comment on above: Performed By: #### 1 54555, 415662, 602485, 068914 #### [address] [address] Total Protein 7.6 G/dL Normal 6.4-8.2 [facility] Comment on above: Performed By: #### 1 40307, 950736, 974842, 355744 #### [address] [address] Urea nitrogen [Mass/Vol] 8 mg/dL Normal 7-18 [facility] Comment on above: Performed By: #### 1 28742, 287055, 718912, 551616 #### [facility] [address] [place] [address] Comprehensive Metabolic Prof robinson 07-08-2024 Albumin [Mass/Vol] 3.9 g/dL Normal 3.5-5.0 [facility] Comment on above: Performed By: #### L 100.0100, L500.4050, L501.5200 #### [facility] [address] [place], [address] Albumin/Globulin [Mass ratio] 1.2 {ratio} Normal 0.9-2.4 [facility] Comment on above: Performed By: #### L 100.0100, L500.4050, L501.5200 #### [facility] [address] [place], [address] ALK PHOS 112 U/L High 35-104 [facility] Comment on above: Performed By: #### L 100.0100, L500.4050, L501.5200 #### [facility] [address] [place], [address] ALT [Catalytic activity/Vol] 19 U/L Normal <=34 [facility] Comment on above: Performed By: #### L 100.0100, L500.4050, L501.5200 #### [facility] [address] [place], [address] AST [Catalytic activity/Vol] 41 U/L High <=31 [facility] Comment on above: Result Comment: Hemo lysis present, Results??could be affected. ?? Performed By: #### L 100.0100, L500.4050, L501.5200 #### [facility] [address] [place], [address] Bilirubin [Mass/Vol] 0.49 mg/dL Normal 0.00-1.30 [facility] Comment on above: Performed By: #### L 100.0100, L500.4050, L501.5200 #### [facility] [address] [place], [address] BUN/CRE 7.1 RATIO Low 10-20 [facility] Comment on above: Performed By: #### L 100.0100, L500.4050, L501.5200 #### [facility] [address] [place], [address] Calcium [Mass/Vol] 9.4 mg/dL Normal 7.6-11.0 [facility] Comment on above: Performed By: #### L 100.0100, L500.4050, L501.5200 #### [facility] [address] [place], [address] Chloride [Moles/Vol] 95 mmol/L Low 98-108 [facility] Comment on above: Performed By: #### L 100.0100, L500.4050, L501.5200 #### [facility] [address] [place], [address] CO2 [Moles/Vol] 24.8 mmol/L Normal 21.0-32.0 [facility] Comment on above: Performed By: #### L 100.0100, L500.4050, L501.5200 #### [facility] [address] [place], [address] Creatinine [Mass/Vol] 0.99 mg/dL Normal 0.70-1.20 [facility] Comment on above: Performed By: #### L 100.0100, L500.4050, L501.5200 #### [facility] [address] [place], [address] ECRCL 78.64 ml/min Normal 50-250 [facility] Comment on above: Performed By: #### L 100.0100, L500.4050, L501.5200 #### [facility] [address] [place], [address] GAP 15 Normal 5-15 [facility] Comment on above: Performed By: #### L 100.0100, L500.4050, L501.5200 #### [facility] [address] [place], [address] GFR/1.73 sq M.predicted among non-blacks MDRD (S/P/Bld) [Vol rate/Area] 79 mL/min/{1.73_m2} Normal >60 [facility] Comment on above: Result Comment: mL/m in/1.73m2 CKD-EPI Creatinine Equation (2020) Performed By: #### L 100.0100, L500.4050, L501.5200 #### [facility] [address] [place], [address] Globulin (S) [Mass/Vol] 3.4 g/dL Normal 2.2-4.2 [facility] Comment on above: Performed By: #### L 100.0100, L500.4050, L501.5200 #### [facility] [address] [place], [address] Glucose [Mass/Vol] 91 mg/dL Normal 70-99 [facility] Comment on above: Performed By: #### L 100.0100, L500.4050, L501.5200 #### [facility] [address] [place], [address] Potassium [Moles/Vol] 3.0 mmol/L Low 3.3-5.1 [facility] Comment on above: Result Comment: Hemo lysis present, Results??could be affected. ?? Performed By: #### L 100.0100, L500.4050, L501.5200 #### [facility] [address] [place], [address] Sodium [Moles/Vol] 135 mmol/L Normal 133-145 [facility] Comment on above: Performed By: #### L 100.0100, L500.4050, L501.5200 #### [facility] [address] [place], [address] T PROT 7.3 g/dL Normal 5.9-8.4 [facility] Comment on above: Performed By: #### L 100.0100, L500.4050, L501.5200 #### [facility] [address] [place], [address] Urea nitrogen [Mass/Vol] 7 mg/dL Normal 4-19 [facility] Comment on above: Performed By: #### L 100.0100, L500.4050, L501.5200 #### [facility] [address] [place], [address] Emergency Department Summary on 07-08-2024 Emergency Department Summary [facility] Department [address] [place] [address] Emergency Department Summary 07/08/24 MR#: [id number] Acct: [id number] Name: MARIA T WYNNE Rep #: [id number] : 1995 29 From: Juancarlos Lee DO PCP: Dr. Michele Bell, DO Status:REG ER Location: ED HPI History of Present Illness Chief Complaint: Abn Labs Narrative Narrative: Patient is a 29-year-old female with a past medical history of GERD, substance abuse, fibromyalgia, seizures, hypokalemia, low magnesium levels on supplementation for these issues states that she has a appointment with endocrinology tomorrow. States that she had some blood work obtained in the outpatient setting and notes that she was called within the last hour and a half in regards to her potassium being critically low and was advised to come to the emergency department to be evaluated. She states that she does not know what her potassium level is. She states that she is on 10 mill equivalents of potassium daily and states that she has been taking this. Patient states that she has had restless legs recently as well. [facility] Medical History TMJ syndrome Rectal bleeding Insulin resistance Insomnia Subclinical hypothyroidism Substance abuse GERD (gastroesophageal reflux disease) Hepatitis Migraines Fibromyalgia Low potassium syndrome Vitamin deficiency Seizures Carpal tunnel syndrome Seasonal allergies Home Medications ???Medication ???Instructions ???Recorded ???Last Taken ???Type buprenorphine 2.9 mg-naloxone 0.71 2 tab sublingual QDAY 03/26/24 0 07/08/24 History mg sublingual tablet cholecalciferol (vitamin D3) 50 50 mcg PO QDAY 03/26/24 07/08/24 H istory mcg (2,000 unit) capsule clonidine HCl 0.1 mg tablet 0.1 mg PO QHS 03/26/24 07/07/24 Hi story ezetimibe 10 mg tablet 10 mg PO QDAY 03/26/24 07/08/24 Hi story hydrochlorothiazide 25 mg tablet 50 mg PO DAILY 03/26/24 07/08/24 H istory hydroxyzine HCl 50 mg tablet 100 mg PO QHS 03/26/24 07/07/24 Hi story methocarbamol 750 mg tablet 750 mg PO TID 03/26/24 07/08/24 Hi story pregabalin 300 mg capsule 300 mg PO QHS 03/26/24 07/07/24 Hi story tirzepatide 5 mg/0.5 mL 5 mg subcut QWEEK 03/26/24 5 History subcutaneous pen injector omeprazole 40 mg capsule,delayed 40 mg PO BID #180 caps 03/27/24 Rx release potassium chloride 10 mEq 10 meq PO QDAY 03/27/24 07/07/24 H istory tablet,extended release lactulose 10 gram/15 mL oral 30 g (45 mL) PO TID constipation 0 04/24/24 Unknown Rx solution #946 mL ondansetron 4 mg disintegrating 4 mg PO .COMPLEX #15 tabs 05/22/24 Unknown Rx tablet peg 3350-electrolytes 236 240 ml PO Q10M #4,000 mL 05/22/24 Unknown Rx gram-22.74 gram-6.74 gram-5.86 gram solution (Golytely) acyclovir 400 mg tablet 800 mg PO DAILY 07/08/24 Unknown H istory biotin 2,500 mcg capsule 2,500 mcg PO DAILY 07/08/24 History calcium citrate 500 mg PO DAILY 07/08/24 07/07/24 History clobetasol 0.05 % topical ointment 1 applic topical BID 07/08/24 Un known History metformin 500 mg tablet,extended 1,000 mg PO BID 07/08/24 07/07/24 History release 24 hr metoclopramide HCl 10 mg tablet 10 mg PO QAC gastroparesis #9 tabs 07/08/24 Unknown Rx norethindrone 1 mg-ethinyl 1 tab PO DAILY 07/08/24 07/08/24 H istory estradiol 20 mcg (21)-iron 75 mg (7) tablet (Myra Fe 04/01 ()) polyethylene glycol 3350 17 17 g PO TID 07/08/24 Unknown Histo ry gram/dose oral powder potassium chloride 20 mEq oral 40 meq PO BID 5 days #100 ea 07/08 Unknown Rx packet pregabalin 150 mg capsule 150 mg PO BID 07/08/24 07/08/24 Hi story tralokinumab-ldrm 300 mg/2 mL 300 mg subcut Q14D 07/08/24 History subcutaneous auto-injector (Adbry) Allergy/AdvReac Type Severity Reaction Status Date / Time clindamycin Allergy Mild Unknown Verified 07/08/24 15:27 nickel (Nickel) Allergy Unknown Verified 07/08/24 15:27 Penicillins Allergy Shortness Verified 07/08/24 15:27 of breath naproxen AdvReac Intermediate Other Verified 07/08/24 15:27 amoxicillin AdvReac Mild Rash Verified 07/08/24 15:27 lubiprostone (From Amitiza) AdvReac Mild Rash Verified 07/08/24 15:27 dicyclomine (From Bentyl) AdvReac cramps, Verified 07/08/24 15:27 constipation, chest pain doxycycline AdvReac Vomiting Verified 07/08/24 15:27 metronidazole (From Flagyl) AdvReac Upset Verified 07/08/24 15:27 Stomach sulfamethoxazole (From AdvReac Upset Verified 07/08/24 15:27 Bactrim) Stomach trimethoprim (From Bactrim) AdvReac Upset Verified 07/08/24 15:27 Stomach Family History Father Diabetes Grandfather Diabetes Gran (more content not included)... Normal [facility] LABORATORYOrdered By: Rayo damon on 07-08-2024 HBV core IgM IA Ql Non-Reactive (07/08/24 9:27 AM) Normal Non-Reactive AH ADM SS HBV core IgM IA Ql Samples with a value < 0.80 Index are considered nonreactive (negative) for IgM antibodies to hepatitis B core antigen. Invalid Interpretation Code Chemistry S HBV surface Ab Qn (S) 917.3 mIU/mL Normal >=10.0mIU/mL AH ADM SS Comment on above: Interpretive Data: 0 to < 10.0 mIU/mL Nonreactive Patient is considered not to have protective immunity to HBV infection >/= 10.0 mIU/mL Reactive Patient is considered to have protective immunity to HBV infection. This assay is traceable to the World Health Organization (WHO) Hepatitis B Immunoglobulin 1st International Reference Preparation (1976). The accepted criteria for immunity to HBV is anti-HBs activity >/= 10.0 mIU/mL, as defined by the WHO International Reference Preparation. HBV surface Ag IA Ql Non-Reactive (07/08/24 9:27 AM) Normal Non-Reactive AH ADM SS LABORATORYOrdered By: SYSTEM SYSTEM on 07-08-2024 Albumin BCP dye [Mass/Vol] 3.3 G/dL Low 3.5 - 5.0 G/dL AO ADM SS Albumin/Globulin [Mass ratio] 0.8 {ratio} Low 1.1 - 2.5 ratio AO ADM SS ALP [Catalytic activity/Vol] 125 U/L Normal 40 - 135 U/L AO ADM SS ALT With P-5'-P [Catalytic activity/Vol] 28 U/L Normal 14 - 59 U/L AO ADM SS AST With P-5'-P [Catalytic activity/Vol] 16 U/L Normal 10 - 40 U/L AO ADM SS Bilirubin [Mass/Vol] 0.6 mg/dL Normal 0.2 - 1 .0 mg/dL AO ADM SS Comment on above: Interpretive Data: U se of this assay is not recommended for patients undergoing treatment with eltrombopag due to the potential for falsely elevated results. Calcium [Mass/Vol] 9.5 mg/dL Normal 8.4 - 10. 2 mg/dL AO ADM SS Chloride [Moles/Vol] 97 mmol/L Low 98 - 10 7 mmol/L AO ADM SS CO2 [Moles/Vol] 28 mmol/L Normal 22 - 29 mmol/L AO AD M SS Creatinine [Mass/Vol] 0.88 mg/dL Normal 0.51 - 0.95 mg/dL AO ADM SS Electrolyte Balance 10.0 mEq/L Normal 4.0 - 15 .0 mEq/L AO ADM SS Estimated Glomerular Filtration Rate 90 ml/min/1.73sqm Invalid Interpretation Code AO Chemistry S Comment on above: Interpretive Data: Stages of Chronic Kidney Disease (CKD) Stage Description eGFR(ml/min/1.73 sq.m.) CKD 1 Normal kidney function or >=90 normal kindney function with possible kidney damage (ex. Proteinuria) CKD 2 Kidney damage with mild loss 60-89 of kidney function CKD 3a Mild to moderate loss of kidney 45-59 function CKD 3b Moderate to severe loss of 30-44 of kindey function CKD 4 Severe loss of kidney function 15-29 CKD 5 Kidney failure <15 Note: (go live 2024) the eGFR calculation was updated to the 2020 CKD-EPI creatinine equation without a race factor to calculate the eGFR results. Globulin 4.3 G/dL Normal 2.7 - 4.4 G/dL AO ADM SS Glucose [Mass/Vol] 108 mg/dL Invalid Interpretation Code AO Chemistry S Comment on above: Interpretive Data: E stimated average glucose (eAG) is a calculated value from Hemoglobin A1C and is community health representative of the average blood glucose level in the last 2-3 month period. Normal range: less than 114 mg/dL Glucose [Mass/Vol] 86 mg/dL Normal 70 - 105 mg/dL AO ADM SS HbA1c (Bld) [Mass fraction] 5.4 % Normal 4.3 - 6.4 % AO ADM SS Insulin Qn 16.79 munit/L Normal 2.60 - 37.60 mU/L AH ADM SS Magnesium [Mass/Vol] 1.6 mg/dL Low 1.8 - 2 .4 mg/dL AO ADM SS Potassium [Moles/Vol] 2.6 mmol/L Invalid Interpretation Code 3.5 - 5.1 mmol/L AO ADM SS Protein [Mass/Vol] 7.6 G/dL Normal 6.4 - 8.2 G/dL AO ADM SS Sodium [Moles/Vol] 135 mmol/L Low 136 - 145 mmol/L AO ADM SS Urea nitrogen [Mass/Vol] 8 mg/dL Normal 7 - 18 mg/dL AO ADM SS Urea nitrogen/Creatinine [Mass ratio] 9 ratio Normal 7 - 27 ratio AO ADM SS MGon 07-08-2024 Magnesium [Mass/Vol] 1.6 mg/dL Low 1.8-2.4 [facility] Comment on above: Performed By: #### 1 27280, 293296, 762096, [id number] #### [facility] [address] [place] [address] Magnesiumon 07-08-2024 Magnesium [Mass/Vol] 1.9 mg/dL Normal 1.5-2.2 [facility] Comment on above: Performed By: #### L 100.0100, L500.4050, L501.5200 #### [facility] [address] [place], [address] ,Urineon 07-08-2024 Beta HCG ( test) Ql (U) Negative Normal [facility] Comment on above: Result Comment: Very dilute urine specimens, as indicated by a low specific gravity, may not contain community health representative levels of hCG. If is still suspected, a first morning urine specimen should be collected 48 hours later and tested. Performed By: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 could be due to vaccination, previously resolved infection or active infection. Testing for HAV IgM should be performed if active HAV infection is suspected. [employer] offers profiles that will automatically reflex positive HAV total antibody results to IgM (e.g., panel #[id number] HAV Antibody w/ Rfx). Performed at: [address] [id number] [place] Supervisor: Tony Nguyen PhD, Phone: [phone] Performed By: #### L 3100.0300, L3100.0460, L3410.9998, L100.0100, L500.4050, L501.9520 ####[facility] [address] [place], [address] Hepatitis B Core Ab Totalon 04-26-2024 HEP B CORE,TOT Positive Abnormal Negative [facility] Comment on above: Performed By: #### L 3100.0300, L3100.0460, L3410.9998, L100.0100, L500.4050, L501.9520 ####[facility] [address] [place], [address] CBC W/Diff, Automatedon 04-13 Absolute Lymph 3.00 X10 3/uL Normal 0.83-4.51 [facility] Comment on above: Performed By: #### L 3100.0300, L3100.0460, L3410.9998, L100.0100, L500.4050, L501.9520 ####[facility] [address] [place], [address] Absolute Neut 3.8 X10 3/uL Normal 2.0-7.7 [facility] Comment on above: Performed By: #### L 3100.0300, L3100.0460, L3410.9998, L100.0100, L500.4050, L501.9520 ####[facility] [address] [place], [address] Basophils/100 WBC (Bld) 0.4 % Normal 0-1 [facility] Comment on above: Performed By: #### L 3100.0300, L3100.0460, L3410.9998, L100.0100, L500.4050, L501.9520 ####[facility] [address] [place], [address] Eosinophils/100 WBC (Bld) 1.5 % Normal 0-5 [facility] Comment on above: Performed By: #### L 3100.0300, L3100.0460, L3410.9998, L100.0100, L500.4050, L501.9520 ####[facility] [address] [place], [address] Erythrocyte distribution width (RBC) [Ratio] 14.2 % Normal 11.6-14.6 [facility] Comment on above: Performed By: #### L 3100.0300, L3100.0460, L3410.9998, L100.0100, L500.4050, L501.9520 ####[facility] [address] [place], [address] Hematocrit (Bld) [Volume fraction] 36.6 % Low 37-47 [facility] Comment on above: Performed By: #### L 3100.0300, L3100.0460, L3410.9998, L100.0100, L500.4050, L501.9520 ####[facility] [address] [place], [address] Hemoglobin (Bld) [Mass/Vol] 12.0 g/dL Normal 12.0-15.0 [facility] Comment on above: Performed By: #### L 3100.0300, L3100.0460, L3410.9998, L100.0100, L500.4050, L501.9520 ####[facility] [address] [place], [address] IG% 0.500 Normal 0.0-0.9 [facility] Comment on above: Result Comment: IG% - Immature Granulocytes (promyelocytes, myelocytes and metamyelocytes) > 1% indicates that a LEFT SHIFT is Present. Performed By: #### L 3100.0300, L3100.0460, L3410.9998, L100.0100, L500.4050, L501.9520 ####[facility] [address] [place], [address] Lymphocytes/100 WBC (Bld) 39.7 % Normal 19-41 [facility] Comment on above: Performed By: #### L 3100.0300, L3100.0460, L3410.9998, L100.0100, L500.4050, L501.9520 ####[facility] [address] [place], [address] MCH (RBC) [Entitic mass] 25.1 pg Low 27.0-32.0 [facility] Comment on above: Performed By: #### L 3100.0300, L3100.0460, L3410.9998, L100.0100, L500.4050, L501.9520 ####[facility] [address] [place], [address] MCHC (RBC) [Mass/Vol] 32.8 g/dL Normal 32-36 [facility] Comment on above: Performed By: #### L 3100.0300, L3100.0460, L3410.9998, L100.0100, L500.4050, L501.9520 ####[facility] [address] [place], [address] MCV (RBC) [Entitic vol] 76.6 fL Low 81-99 [facility] Comment on above: Performed By: #### L 3100.0300, L3100.0460, L3410.9998, L100.0100, L500.4050, L501.9520 ####[facility] [address] [place], [address] Monocytes/100 WBC (Bld) 7.4 % Normal 0-10 [facility] Comment on above: Performed By: #### L 3100.0300, L3100.0460, L3410.9998, L100.0100, L500.4050, L501.9520 ####[facility] [address] [place], [address] Neutrophils/100 WBC (Bld) 50.5 % Normal 47-70 [facility] Comment on above: Performed By: #### L 3100.0300, L3100.0460, L3410.9998, L100.0100, L500.4050, L501.9520 ####[facility] [address] [place], [address] Nucleated RBC (Bld) [#/Vol] 0 10*3/uL Normal 0-5 [facility] Comment on above: Performed By: #### L 3100.0300, L3100.0460, L3410.9998, L100.0100, L500.4050, L501.9520 ####[facility] [address] [place], [address] Platelet mean volume (Bld) [Entitic vol] 9.2 fL Normal 6.2-12.0 [facility] Comment on above: Performed By: #### L 3100.0300, L3100.0460, L3410.9998, L100.0100, L500.4050, L501.9520 ####[facility] [address] [place], [address] Platelets (Bld) [#/Vol] 377 10*3/uL Normal 150-450 [facility] Comment on above: Performed By: #### L 3100.0300, L3100.0460, L3410.9998, L100.0100, L500.4050, L501.9520 ####[facility] [address] [place], [address] RBC (Bld) [#/Vol] 4.78 10*6/uL Normal 4.2-5.4 [facility] Comment on above: Performed By: #### L 3100.0300, L3100.0460, L3410.9998, L100.0100, L500.4050, L501.9520 ####[facility] [address] [place], [address] RDW SD 39.2 fl Normal 35.1-43.9 [facility] Comment on above: Performed By: #### L 3100.0300, L3100.0460, L3410.9998, L100.0100, L500.4050, L501.9520 ####[facility] [address] [place], [address] WBC (Bld) [#/Vol] 7.6 10*3/uL Normal 4.4-11.0 [facility] Comment on above: Performed By: #### L 3100.0300, L3100.0460, L3410.9998, L100.0100, L500.4050, L501.9520 ####[facility] [address] [place], [address] Comprehensive Metabolic [facility] ilon 04-24-2024 Albumin [Mass/Vol] 3.2 g/dL Normal 3.2-5.0 [facility] Comment on above: Performed By: #### L 3100.0300, L3100.0460, L3410.9998, L100.0100, L500.4050, L501.9520 ####[facility] [address] [place], [address] Albumin/Globulin [Mass ratio] 0.7 {ratio} Low 0.9-2.4 [facility] Comment on above: Performed By: #### L 3100.0300, L3100.0460, L3410.9998, L100.0100, L500.4050, L501.9520 ####[facility] [address] [place], [address] ALK P 104 U/L Normal 45-117 [facility] Comment on above: Performed By: #### L 3100.0300, L3100.0460, L3410.9998, L100.0100, L500.4050, L501.9520 ####[facility] [address] [place], [address] ALT [Catalytic activity/Vol] 40 U/L Normal 13-56 [facility] Comment on above: Performed By: #### L 3100.0300, L3100.0460, L3410.9998, L100.0100, L500.4050, L501.9520 ####[facility] [address] [place], [address] AST [Catalytic activity/Vol] 34 U/L Normal 15-37 [facility] Comment on above: Performed By: #### L 3100.0300, L3100.0460, L3410.9998, L100.0100, L500.4050, L501.9520 ####[facility] [address] [place], [address] Bilirubin [Mass/Vol] 0.30 mg/dL Normal 0.20-1.00 [facility] Comment on above: Result Comment: For patients on eltrombopag therapy, use of Dimension [place] TBIL is not recommended. Performed By: #### L 3100.0300, L3100.0460, L3410.9998, L100.0100, L500.4050, L501.9520 ####[facility] [address] [place], [address] BUN/CRE 9.0 RATIO Low 10-20 [facility] Comment on above: Performed By: #### L 3100.0300, L3100.0460, L3410.9998, L100.0100, L500.4050, L501.9520 ####[facility] [address] [place], [address] CA,Total 9.1 mg/dL Normal 8.5-10.1 [facility] Comment on above: Performed By: #### L 3100.0300, L3100.0460, L3410.9998, L100.0100, L500.4050, L501.9520 ####[facility] [address] [place], [address] Chloride [Moles/Vol] 99 mmol/L Normal 98-107 [facility] Comment on above: Performed By: #### L 3100.0300, L3100.0460, L3410.9998, L100.0100, L500.4050, L501.9520 ####[facility] [address] [place], [address] CO2 [Moles/Vol] 24.0 mmol/L Normal 21.0-32.0 [facility] Comment on above: Performed By: #### L 3100.0300, L3100.0460, L3410.9998, L100.0100, L500.4050, L501.9520 ####[facility] [address] [place], [address] Creatinine [Mass/Vol] 0.78 mg/dL Normal 0.55-1.02 [facility] Comment on above: Result Comment: The validity of the calculated GFR GFRAA in patients over 70 years has not been determined. Clinical correlation is essential. Performed By: #### L 3100.0300, L3100.0460, L3410.9998, L100.0100, L500.4050, L501.9520 ####[facility] [address] [place], [address] EST GFR - AA 111 mL/min Normal >60 [facility] Comment on above: Result Comment: Afri can Cambodian GFR Calc Performed By: #### L 3100.0300, L3100.0460, L3410.9998, L100.0100, L500.4050, L501.9520 ####[facility] [address] [place], [address] GAP 12 Normal 5-15 [facility] Comment on above: Performed By: #### L 3100.0300, L3100.0460, L3410.9998, L100.0100, L500.4050, L501.9520 ####[facility] [address] [place], [address] GFR/1.73 sq M.predicted among non-blacks MDRD (S/P/Bld) [Vol rate/Area] 92 mL/min/{1.73_m2} Normal >60 [facility] Comment on above: Result Comment: Non- GFR Calc Performed By: #### L 3100.0300, L3100.0460, L3410.9998, L100.0100, L500.4050, L501.9520 ####[facility] [address] [place], [address] Globulin (S) [Mass/Vol] 4.3 g/dL High 2.2-4.2 [facility] Comment on above: Performed By: #### L 3100.0300, L3100.0460, L3410.9998, L100.0100, L500.4050, L501.9520 ####[facility] [address] [place], [address] Glucose [Mass/Vol] 85 mg/dL Normal 74-106 [facility] Comment on above: Performed By: #### L 3100.0300, L3100.0460, L3410.9998, L100.0100, L500.4050, L501.9520 ####[facility] [address] [place], [address] Potassium [Moles/Vol] 3.0 mmol/L Low 3.5-5.1 [facility] Comment on above: Performed By: #### L 3100.0300, L3100.0460, L3410.9998, L100.0100, L500.4050, L501.9520 ####[facility] [address] [place], [address] Sodium [Moles/Vol] 135 mmol/L Low 136-145 [facility] Comment on above: Performed By: #### L 3100.0300, L3100.0460, L3410.9998, L100.0100, L500.4050, L501.9520 ####[facility] [address] [place], [address] T PROT 7.5 g/dL Normal 6.4-8.2 [facility] Comment on above: Performed By: #### L 3100.0300, L3100.0460, L3410.9998, L100.0100, L500.4050, L501.9520 ####[facility] [address] [place], [address] Urea nitrogen [Mass/Vol] 7 mg/dL Normal 7-18 [facility] Comment on above: Performed By: #### L 3100.0300, L3100.0460, L3410.9998, L100.0100, L500.4050, L501.9520 ####[facility] [address] [place], [address] Gastroenterology Visit Repor ton 04-24-2024 Gastroenterology Visit Report [facility] Gastroenterology [address] [place] [address] OFFICE VISIT Date of Service: 04/24/24 MR#: [id number] Acct: [id number] Name: MARIA T WYNNE Rep #: [id number] : 1995 Provider: ELIANA barnard Age/Sex: 29/F Location[place] [facility] [place] Status: Signed Intake Vital Signs 03/27/24 15:15 04/24/24 13:14 Height 4 ft 11 in 4 ft 11 in Weight: 182 lb BMI 36.7 Intake Visit Reasons: 1 M FU Chief Complaint: constipation Allergies clindamycin Allergy (Mild, Verified 03/26/24 07:41) Unknown nickel (Nickel) Allergy (Verified 03/26/24 07:41) Unknown Penicillins Allergy (Verified 03/26/24 07:41) Shortness of breath naproxen Adverse Reaction (Intermediate, Verified 03/26/24 07:41) Other amoxicillin Adverse Reaction (Mild, Verified 03/26/24 07:41) Rash lubiprostone (From Amitiza) Adverse Reaction (Mild, Verified 03/26/24 07:41) Rash dicyclomine (From Bentyl) Adverse Reaction (Verified 12/27/20 23:26) cramps, constipation, chest pain doxycycline Adverse Reaction (Verified 03/26/24 07:41) Vomiting metronidazole (From Flagyl) Adverse Reaction (Verified 03/26/24 07:41) Upset Stomach sulfamethoxazole (From Bactrim) Adverse Reaction (Verified 03/26/24 07:41) Upset Stomach trimethoprim (From Bactrim) Adverse Reaction (Verified 03/26/24 07:41) Upset Stomach PFSH Medical History (Updated 03/28/24 @ 09:42 by ELIANA Contreras) TMJ syndrome Rectal bleeding Insulin resistance Insomnia Subclinical hypothyroidism Substance abuse GERD (gastroesophageal reflux disease) Hepatitis Migraines Fibromyalgia Low potassium syndrome Vitamin deficiency Seizures Carpal tunnel syndrome Seasonal allergies Surgical History (Updated 10/02/21 @ 17:36 by Sindy Sawant) History of colonoscopy History of shoulder surgery History of History of appendectomy HISTORY NECK INJECTIONS Family History Father Diabetes Grandfather Diabetes Grandmother Diabetes Other Alcoholism Allergies Anxiety Anxiety and depression Arthritis Asthma defect Bowel disease CVA (cerebral vascular accident) Heart disease High cholesterol Hypertension Kidney disease Liver disease Mental disorder Myocardial infarction Psychiatric care Social History (Updated 03/26/24 @ 08:09 by Kirsty Harry) household members: family current occupational status: unemployed Smoking Status: Current every day smoker tobacco type: cigarettes alcohol intake: never substance use type: IV drugs and methamphetamine caffeine: Yes what type of physical activity do you participate in: none HPI HPI Chief Complaint: constipation Details: MARIA T WYNNE, is a 29 F who presents to the office today for INITIAL CONSULT 03/28/2024 29y/o female presents for consultation with complaints of constipation and history of HCV. She reports a long history of constipation which is now causing issues with urination. She will go several days without a BM and then reports digital disimpaction to remove stool. She is also using OTC enemas and laxatives. She complains of intermittent episodes of feeling hot, sweaty, and clammy with severe stomach cramping associated with bowel movements. She has failed Linzess in the past and Amitiza caused a rash. Additionally, she complains of, "puking up acid," globus sensation, and upper esophageal dysphagia that is not improved with Omeprazole daily. Lastly, she has a h/o HCV previously treated at [facility]. CONSTIPATION -Complete Sitz Marker testing -Start Ibsrela 50mg twice a day, take before breakfast and dinner- samples provided and RX sent to local pharmacy - do not start until after completion of Sitz Marker Testing -Continue adequate water intake, at least 64 ounces daily -Schedule Anorectal Manometry with [facility] call [phone] to verify they take your insurance and schedule -Schedule consult with [facility] for c/o difficulty with urination secondary to pelvic floor -Will plan to schedule colonoscopy once we have a better understanding of Gut Motility and can properly advise on bowel prep GERD -Increase Omeprazole to 40mg twice a day, take before breakfast and dinner - new prescription sent to pharmacy -Schedule UGI to assess dysphagia and gastric emptying at [facility] -Smoking cessation encouraged H/O HCV -Schedule ABD US at [facility] -Complete labs at [facility] -Schedule FibroScan at [facility] call [phone] IBSrella the first week caused terrible diarrhea and incontinence and then back to severe constipation - last had a BM late last night - straining with BM - chronic nausea - feels urge to have a BM but unable to evacuate stool - reports she has not yet had ARM (more content not included)... Normal [facility] Hepatitis B Surface Antibody on 04-24-2024 HEP B Surf Ab Reactive Normal [facility] Comment on above: Result Comment: Non Reactive: Inconsistent with immunity less than <10 mIU/mL Reactive: Consistent with immunity greater than or equal to 10 mIU/mL Performed By: #### L 3890.6100, L3890.6200 #### [facility] [address] [place], [address] Hepatitis B Surface Antigeno n 04-24-2024 HEP B Surf Ag Non-Reactive Normal Nonreactive [facility] Comment on above: Performed By: #### L 3890.6100, L3890.6200 #### [facility] [address] [place], [address] Thyroid Stim Hormone (TSH)on 04-24-2024 TSH 2.600 uIU/mL Normal 0.358-3.740 [facility] Comment on above: Performed By: #### L 3100.0300, L3100.0460, L3410.9998, L100.0100, L500.4050, L501.9520 ####[facility] [address] [place], [address] 36on 04-17-2024 36 [employer] [facility] albert about wanting medical records and Dr Gilmer Robertson would like to speak with you on a personal level. Cell [phone] Office [phone] Spoke with their office to discuss how to get their records Normal [facility] L3410.9998on 04-17-2024 [facility] Misc. COMMENT Normal . [facility] Comment on above: Order Comment: [id number] 9ELF SERUM RF Result Comment: Test Ordered: [id number] Enhanced Liver Fibrosis (ELF) ELF(TM) Score 8.30 BN Reference Range: <9.80 ELF(TM) Score Interpretation: Risk cut-offs to assess the likelihood of progression to cirrhosis and liver-related clinical events within 3.9 years following baseline ELF score (IQR: 14.0-22.4 months)*: Lower risk < 9.80 Mid risk 9.80 - 11.29 Higher risk >11.29 Note: The ELF(TM) Score is a unitless numerical value. *Prem SA, Saúl VW, Angel T, et al. Selonsertib for patients with bridging fibrosis or compensated cirrhosis due to MULTANI: Results from randomized phase III STELLAR trials. J Hepatol. 2020 Sep;73(1):26-39. Performed at: - [address] [id number] [place] Supervisor: Kindra Carranza MD, Phone: [phone] Performed at: [facility] [address] [id number] [place] Supervisor: Tony Nguyen PhD, Phone: [phone] Performed By: #### L 3410.9998, L7000.7000 ####[facility] [address] [place], [place], [id number] Abdomen Completeon 5 Abdomen Complete [facility] Imaging Services [address] [place] [address] Abdomen Complete MR#: [id number] Acct: [id number] Name: MARIA T WYNNE Rep #: [id number] : 1995 F 29 From: Cristal Salas MD PCP: Rowan Barajas NP Status: [facility] CL Study: Abdomen Complete Date of Exam: 04/16/24 Exam# [id number] Ordering Dr: Neeru Georges HOOKER LASTER- C EXAM: US Abdomen Complete CLINICAL INDICATION: TECHNIQUE: Real-time ultrasound of the abdomen with image documentation. COMPARISON: No relevant prior studies available. FINDINGS: LIVER: Hepatopetal blood flow in the main portal vein. Fatty infiltration of the liver. Liver measures up to 15.3 cm. No intrahepatic bile duct dilation. GALLBLADDER: Gallbladder calculus measuring up to 0.6 cm. COMMON BILE DUCT: Unremarkable as visualized. No stones. No dilation. Common bile duct measures 0.3 cm in diameter. PANCREAS: Unremarkable as visualized. KIDNEYS: Unremarkable. No stones. No hydronephrosis. The right kidney measures 11.0 x 6.0 x 4.5 cm. The left kidney measures 11.3 x 4.5 x 4.5 cm. SPLEEN: Spleen measures up to 10.6 cm. AORTA: Unremarkable. No aneurysm. INFERIOR VENA CAVA: Unremarkable. US/Abdomen Complete IMPRESSION: 1. Fatty infiltration of the liver. 2. Cholelithiasis. Reading Location: [facility] CC: ELIANA Georges; Rowan Barajas NP Bus Person: Signed Normal [facility] Hepatitis C,RNA PCR Viral Lo donor relations associate 04-15-2024 HCV QT RNA PCR Normal [facility] Comment on above: Result Comment: TEST NOT PERFORMED Performed By: #### L 3410.9998, L7000.7000 ####[facility] [address] [place], [place], [address] Upper GI Dual Contraston Upper GI Dual Contrast [facility] Imaging Services [address] [place], [place] [address] Upper GI Dual Contrast MR#: [id number] Acct: [id number] Name: MARIA T WYNNE Rep #: [id number] : 1995 F 29 From: Jonathan jain MD PCP: Rowan Barajas NP Status: REG CLI Study: Upper GI Dual Contrast Date of Exam: 04/15/24 Exam# [id number] Ordering Dr: Neeru Georges EXAM: UPPER GI DUAL CONTRAST CLINICAL HISTORY: Acid reflux. COMPARISON: None. TECHNIQUE: The patient ingested barium. Multiple images of the esophagus, stomach and duodenum were obtained. FINDINGS: The esophagus is unremarkable. No evidence of gastroesophageal reflux. No evidence of hiatal hernia. No evidence obstruction. The stomach and duodenum are unremarkable. No evidence of ulceration or mass lesion. RAD/Upper GI Dual Contrast IMPRESSION: Unremarkable air contrast upper GI series. Reading Location: [facility]- CC: ELIANA Georges; Rowan Barajas NP Bus Person: Signed Normal [facility] Gastroenterology Visit Repor ton 03-27-2024 Gastroenterology Visit Report [facility] Gastroenterology [address] [place] [address] OFFICE VISIT Date of Service: 03/27/24 MR#: [id number] Acct: [id number] Name: MARIA T WYNNE Rep #: [id number] : 1995 Provider: ELIANA barnard Age/Sex: 29/F Location[place] [facility] [place] Status: Signed Intake Vital Signs 10/05/22 15:00 03/27/24 15:15 Height 4 ft 11 in 4 ft 11 in Weight: 180 lb 8 oz BMI 36.4 BP 102/72 Respiration 16 Pulse 86 Pulse Oximetry (%) 96 Oxygen Delivery Method room air Intake Visit Reasons: Constipation Chief Complaint: constipation Allergies clindamycin Allergy (Mild, Verified 03/26/24 07:41) Unknown nickel (Nickel) Allergy (Verified 03/26/24 07:41) Unknown Penicillins Allergy (Verified 03/26/24 07:41) Shortness of breath naproxen Adverse Reaction (Intermediate, Verified 03/26/24 07:41) Other amoxicillin Adverse Reaction (Mild, Verified 03/26/24 07:41) Rash lubiprostone (From Amitiza) Adverse Reaction (Mild, Verified 03/26/24 07:41) Rash dicyclomine (From Bentyl) Adverse Reaction (Verified 12/27/20 23:26) cramps, constipation, chest pain doxycycline Adverse Reaction (Verified 03/26/24 07:41) Vomiting metronidazole (From Flagyl) Adverse Reaction (Verified 03/26/24 07:41) Upset Stomach sulfamethoxazole (From Bactrim) Adverse Reaction (Verified 03/26/24 07:41) Upset Stomach trimethoprim (From Bactrim) Adverse Reaction (Verified 03/26/24 07:41) Upset Stomach Medications ???Medication ???Instructions ???Recorded ???Confirmed ???Type Myra Fe 04/01 (28) 1 tab PO/SL DAILY control 12/28/20 03/26/24 History acyclovir 800 mg tablet 800 mg PO DAILY herpes 03/26/24 03/26/24 History buprenorphine 2.9 mg-naloxone 0.71 2 tab sublingual QDAY 03/26/24 03/26/24 History mg sublingual tablet calcium citrate 200 mg PO BID 03/26/24 03/26/24 History cholecalciferol (vitamin D3) 50 50 mcg PO QDAY 03/26/24 03/26/24 History mcg (2,000 unit) capsule clonidine HCl 0.1 mg tablet 0.1 mg PO QHS 03/26/24 03/26/24 History cyanocobalamin (vitamin B-12) 250 250 mcg PO QDAY 03/26/24 03/26/24 History mcg lozenges ezetimibe 10 mg tablet 10 mg PO QDAY 03/26/24 03/26/24 History hydrochlorothiazide 25 mg tablet 25 mg PO BID 03/26/24 03/26/24 History hydroxyzine HCl 50 mg tablet 150 mg PO QHS 03/26/24 03/26/24 History isotretinoin 10 mg capsule 10 mg PO BID 03/26/24 03/26/24 History (Claravis) metformin 500 mg tablet,extended 1,000 mg PO BID 03/26/24 03/26/24 History release 24hr (osmotic) methocarbamol 750 mg tablet 750 mg PO TID PRN 03/26/24 03/26/24 History multivitamin with minerals 1 cap PO BID 03/26/24 03/26/24 History polyethylene glycol 3350 17 gram 17 g PO TID bowels 03/26/24 03/26/24 History oral powder packet (Miralax) pregabalin 100 mg capsule 150 mg PO BID fibro 03/26/24 03/26/24 History pregabalin 300 mg capsule 300 mg PO QHS 03/26/24 03/26/24 History tirzepatide 5 mg/0.5 mL 5 mg subcut QWEEK 03/26/24 03/26/24 History subcutaneous pen injector omeprazole 40 mg capsule,delayed 40 mg PO BID #180 caps 03/27/24 03/27/24 Rx release potassium chloride 10 mEq 10 meq PO QDAY 03/27/24 03/27/24 History tablet,extended release tenapanor 50 mg tablet (Ibsrela) 50 mg PO BID constipation #60 tabs 03/27/24 03/27/24 Rx Nurse's Note: Is straining so hard to have a bowel movement that she now has to strain hard to urinate. Feels like she has hemorrhoids but has been told that she doesn't by a surgeon. Feels like there are a bunch of paper cuts around the anus. Gets sharp pains and cramps in the abdomen. Gets nauseous from the pain sometimes. Acid reflux is bad and constant. [facility] Medical History (Updated 03/28/24 @ 09:42 by Neeru Georges NP-C) TMJ syndrome Rectal bleeding Insulin resistance Insomnia Subclinical hypothyroidism Substance abuse GERD (gastroesophageal reflux disease) Hepatitis Migraines Fibromyalgia Low potassium syndrome Vitamin deficiency Seizures Carpal tunnel syndrome Seasonal allergies Surgical History (Updated 10/02/21 @ 17:36 by Sindy Sawant) History of colonoscopy History of shoulder surgery History of History of appendectomy HISTORY NECK INJECTIONS Family History Father Diabetes Grandfather Diabetes Grandmother Diabetes Other Alcoholism Allergies Anxiety Anxiety and depression Arthritis Asthma defect Bowel disease CVA (cerebral vascular accident) Heart disease High cholesterol Hypertension Kidney disease Liver disease Mental disorder Myocardial infarction Psychiatric care Social History (Updated 03/26/24 @ 08:09 by Kirsty Harry) household members: family current occupational status: unemployed Smoking Status: Erica (more content not included)... Normal [facility] .GFRon 03-19-2024 GFR 79 ml/min/1.73sqm [facility] Comment on above: Result Comment: GFR Population mean for , [...] 15 mL/min/1.73 square meters Performed By: #### 1 23763, 262821, 633957, 248308 #### [place] [address] [place] [address] GFR Non- 65 ml/min/1.73sqm Normal [facility] Comment on above: Result Comment: GFR Population mean for , [...] 15 mL/min/1.73 square meters Performed By: #### 1 84591, 712822, 822287, 826829 #### [address] [address] BMPon 03-19-2024 BUN/Creatinine Ratio 6 ratio Low 7-27 [facility] Comment on above: Performed By: #### 1 04544, 577742, 920737, 095115 #### [address] [address] Calcium [Mass/Vol] 9.4 mg/dL Normal 8.4-10.2 [facility] Comment on above: Performed By: #### 1 24445, 895197, 401517, 588516 #### [place] [address] [place] [address] Chloride [Moles/Vol] 96 mmol/L Low 98-107 [facility] Comment on above: Performed By: #### 1 68255, 013348, 479437, 686259 #### [place] [address] [place] [address] CO2 [Moles/Vol] 28 mmol/L Normal 22-29 [facility] Comment on above: Performed By: #### 1 18659, 622619, 838189, 098233 #### [address] [address] Creatinine [Mass/Vol] 0.99 mg/dL Normal 0.55-1.02 [facility] Comment on above: Result Comment: Test ing performed on Siemens Dimension EXL analyzer using a modified kinetic Alexi technique. Performed By: #### 1 81914, 207759, 488599, 928677 #### [place] [address] [place] [address] Electrolyte Balance 10.0 mEq/L Normal 4.0-15.0 [facility] Comment on above: Performed By: #### 1 50734, 083544, 500751, 442841 #### [address] [address] Glucose [Mass/Vol] 91 mg/dL Normal 70-105 [facility] Comment on above: Performed By: #### 1 59305, 321983, 030447, 648859 #### [address] [address] Potassium [Moles/Vol] 3.3 mmol/L Low 3.5-5.1 [facility] Comment on above: Performed By: #### 1 46113, 151261, 163430, 585441 #### [address] [address] Sodium [Moles/Vol] 134 mmol/L Low 136-145 [facility] Comment on above: Performed By: #### 1 05146, 428163, 996769, 954674 #### [address] [address] Urea nitrogen [Mass/Vol] 6 mg/dL Low 7-18 [facility] Comment on above: Performed By: #### 1 41492, 053972, 676336, 780773 #### [address] [address] DLDLon 03-19-2024 Direct LDL Cholesterol 128 mg/dL High 0-99 [facility] Comment on above: Result Comment: Dire ct LDL Cholesterol Reference Interval: Optimal: <100 mg/dL Near Optimal/above optimal: 100-129 mg/dL Borderline high: 130-159 mg/dL High: 160-189 mg/dL Very high: >=190 mg/dL Performed By: #### 1 72530, 524021, 819690, 543789 #### [facility] [address] [place] [address] FT3on 03-19-2024 Free T3 [Mass/Vol] 3.19 pg/mL Normal 2.30-4.00 [facility] Comment on above: Performed By: #### G FR, MG, BMP #### [facility] [address] [place], [place] [address] FT4on 03-19-2024 Free T4 [Mass/Vol] 1.07 ng/dL Normal 0.76-1.46 [facility] Comment on above: Performed By: #### G FR, MG, BMP #### [place] [address] [place], [place] [address] LABORATORYOrdered By: SYSTEM SYSTEM on 03-19-2024 Free T3 [Mass/Vol] 3.19 pg/mL Normal 2.30 - 4. 00 pg/mL AO ADM SS Free T4 [Mass/Vol] 1.07 ng/dL Normal 0.76 - 1. 46 ng/dL AO ADM SS TSH Qn 4.75 m[IU]/L High 0.36 - 3.74 mcIU/mL AO ADM SS Calcium [Mass/Vol] 9.4 mg/dL Normal 8.4 - 10. 2 mg/dL AO ADM SS Chloride [Moles/Vol] 96 mmol/L Low 98 - 10 7 mmol/L AO ADM SS CO2 [Moles/Vol] 28 mmol/L Normal 22 - 29 mmol/L AO AD M SS Creatinine [Mass/Vol] 0.99 mg/dL Normal 0.55 - 1.02 mg/dL AO ADM SS Comment on above: Interpretive Data: T esting performed on Siemens Dimension EXL analyzer using a modified kinetic Alexi technique. Electrolyte Balance 10.0 mEq/L Normal 4.0 - 15 .0 mEq/L AO ADM SS GFR/1.73 sq M.predicted among blacks MDRD (S/P/Bld) [Vol rate/Area] 79 ml/min/1.73sqm Invalid Interpretation Code AO Chemistry S Comment on above: Interpretive Data: GFR Population mean for , Non- Americans Ages 20-29 = 116 mL/min/1.73 sq.m. Ages 30-39 = 107 mL/min/1.73 sq.m. Ages 40-49 = 99 mL/min/1.73 sq.m. Ages 50-59 = 93 mL/min/1.73 sq.m. Ages 60-69 = 85 mL/min/1.73 sq.m. Ages 70+ = 75 mL/min/1.73 sq.m. Chronic Kidney Disease: Less than 60 mL/min/1.73 square meters End Stage Renal Disease: Less than 15 mL/min/1.73 square meters GFR/1.73 sq M.predicted among non-blacks MDRD (S/P/Bld) [Vol rate/Area] 65 ml/min/1.73sqm Invalid Interpretation Code AO Chemistry S Comment on above: Interpretive Data: GFR Population mean for , Non- Americans Ages 20-29 = 116 mL/min/1.73 sq.m. Ages 30-39 = 107 mL/min/1.73 sq.m. Ages 40-49 = 99 mL/min/1.73 sq.m. Ages 50-59 = 93 mL/min/1.73 sq.m. Ages 60-69 = 85 mL/min/1.73 sq.m. Ages 70+ = 75 mL/min/1.73 sq.m. Chronic Kidney Disease: Less than 60 mL/min/1.73 square meters End Stage Renal Disease: Less than 15 mL/min/1.73 square meters Glucose [Mass/Vol] 91 mg/dL Normal 70 - 105 mg/dL AO ADM SS Potassium [Moles/Vol] 3.3 mmol/L Low 3.5 - 5.1 mmol/L AO ADM SS Sodium [Moles/Vol] 134 mmol/L Low 136 - 145 mmol/L AO ADM SS Urea nitrogen [Mass/Vol] 6 mg/dL Low 7 - 18 mg/dL AO ADM SS Urea nitrogen/Creatinine [Mass ratio] 6 ratio Low 7 - 27 ratio AO ADM SS LABORATORYOrdered By: Britany Morales on 03-19-2024 Cholesterol [Mass/Vol] 228 mg/dL High 0 - 200 mg/dL AO ADM SS Comment on above: Interpretive Data: C holesterol Reference Interval: Less than 200 Desirable 200-239 Borderline high risk 240 and above High risk Cholesterol in HDL [Mass/Vol] 39 mg/dL Low 40 - 60 mg/dL AO ADM SS Cholesterol in LDL [Mass/Vol] 128 mg/dL High 0 - 99 mg/dL AO ADM SS Comment on above: Interpretive Data: D irect LDL Cholesterol Reference Interval: Optimal: <100 mg/dL Near Optimal/above optimal: 100-129 mg/dL Borderline high: 130-159 mg/dL High: 160-189 mg/dL Very high: >=190 mg/dL LDL Cholesterol Not Valid Invalid Interpretation Code 0 - 130 AO ADM SS Comment on above: Result Comment: Trig lyceride >400 invalidates the calculated LDL. Triglyceride [Mass/Vol] 410 mg/dL High 0 - 150 mg/dL AO ADM SS Comment on above: Interpretive Data: T riglyceride Reference Interval: Less than 150 Normal 150-199 Borderline high risk 200-499 High risk 500 or higher Very high risk LIPIDon 03-19-2024 Cholesterol [Mass/Vol] 228 mg/dL High 0-200 [facility] Comment on above: Result Comment: Chol esterol Reference Interval: Less than 200 Desirable 200-239 Borderline high risk 240 and above High risk Performed By: #### 1 02941, 435654, 985187, 113245 #### [address] [address] Cholesterol in HDL [Mass/Vol] 39 mg/dL Low 40-60 [facility] Comment on above: Performed By: #### 1 03496, 684694, 413969, 822640 #### [facility] [address] [place] [address] LDL Cholesterol Not Valid Normal 0-130 [facility] Comment on above: Result Comment: Trig lyceride >400 invalidates the calculated LDL. Performed By: #### 1 89866, 868628, 006739, 117734 #### [facility] [address] [place] [address] Triglyceride [Mass/Vol] 410 mg/dL High 0-150 [facility] Comment on above: Result Comment: Trig lyceride Reference Interval: Less than 150 Normal 150-199 Borderline high risk 200-499 High risk 500 or higher Very high risk Performed By: #### 1 84705, 658633, 269125, 044780 #### [facility] [address] [place] [address] TSHon 03-19-2024 TSH Qn 4.75 m[IU]/L High 0.36-3.74 [facility] Comment on above: Performed By: #### G FR, MG, BMP #### [facility] [address] [place], [place] [address] Progress Noteson 02-29-2024 Featherer Authentication Interface Message Text INITIAL/COMPREHENSIVE EXAM Patient presents for an Initial Examination. Reviewed patient's medical history. Patient has a history of: No significant medical history. N/C per pt.. No contraindications, patient is ready for treatment. Patient's chief complaint: Comp Exam Pain Scale: 4/10 Radiographs taken today were: Panorex and 4 PAs Clinical Examination reveals: Decay, Gingivitis and Missing teeth Soft tissue evaluation: Within Normal Limits TMJ evaluation: Normal TMJ Completed current status of dentition on the charting. Went over needs and treatment plan options with the patient. OHI were discussed with the patient. Written Instructions/AVS were also handed to the patient. Pt Concern: Full Exam was successfully done. Patient consented to the treatment plan. PRIOR: Prepared and filled NOTE: pt has sever dental anxiety pt requested to have the dental treatment to be done under sedation pt is getting the endo treatment at [facility] Next Visit: Follow-up ----- Signed on February at 10:37:31 PM ----- ----- Provider: Debi Vo DDS -- Clinic: [place] ----- [facility] .Auto Diffon 02-06-2024 Basophil, Absolute 0.0 10 3/mcL Normal 0.0-0.2 [facility] Comment on above: Performed By: #### 1 13235, 863296, 193172, 587229 #### [facility] [address] [place] [address] Basophils/100 WBC (Bld) 0.5 % Normal 0.0-2.5 [facility] Comment on above: Performed By: #### 1 66663, 636284, 958336, 044738 #### [place] [address] [place] [address] Eosinophil, Absolute 0.1 10 3/mcL Normal 0.0-0.7 [facility] Comment on above: Performed By: #### 1 06775, 096344, 911485, 983543 #### [place] [address] [place] [address] Eosinophils/100 WBC (Bld) 1.4 % Normal 0.0-7.0 [facility] Comment on above: Performed By: #### 1 56055, 157856, 250309, 729148 #### [address] [address] Lymphocyte, Absolute 3.0 10 3/mcL Normal 0.9-4.3 [facility] Comment on above: Performed By: #### 1 11805, 444477, 597030, 445327 #### [address] [address] Lymphocytes/100 WBC (Bld) 37.6 % Normal 20.0-40.0 [facility] Comment on above: Performed By: #### 1 50953, 028498, 047724, 104282 #### [address] [address] Monocyte, Absolute 0.5 10 3/mcL Normal 0.1-1.4 [facility] Comment on above: Performed By: #### 1 92795, 701059, 049890, 988002 #### [address] [address] Monocytes/100 WBC (Bld) 6.9 % Normal 2.0-13.0 [facility] Comment on above: Performed By: #### 1 29996, 808080, 786596, 317913 #### [address] [address] Neutrophils/100 WBC (Bld) 53.6 % Normal 50.0-75.0 [facility] Comment on above: Performed By: #### 1 81712, 167525, 925700, 123376 #### [address] [address] .GFRon 02-06-2024 GFR Non- 81 ml/min/1.73sqm Normal [facility] Comment on above: Result Comment: GFR Population mean for , [...] 15 mL/min/1.73 square meters Performed By: #### G FR, CMP #### [address] [address] GFR 99 ml/min/1.73sqm Normal [facility] Comment on above: Result Comment: GFR Population mean for , [...] 15 mL/min/1.73 square meters Performed By: #### G FR, CMP #### [address] [address] .NEUABSon 02-06-2024 Neutrophil, Absolute 4.3 10 3/mcL Normal 2.3-8.1 [facility] Comment on above: Performed By: #### 1 82091, 284285, 390207, 335665 #### [place] [id number] A1Con 02-06-2024 Glucose [Mass/Vol] 105 mg/dL Normal [facility] Comment on above: Result Comment: Serina mated Average Glucose calculated by equation ((28.7xA1C)-46.7) Estimated average glucose (eAG) is a calculated value from Hemoglobin A1C and is community health representative of the average blood glucose level in the last 2-3 month period. Normal range: less than 114 mg/dL Performed By: #### 1 84387, 369391, 969190, 578095 #### [place] [address] HbA1c (Bld) [Mass fraction] 5.3 % Normal 4.3-6.4 [facility] Comment on above: Performed By: #### 1 74899, 306179, 234152, 192790 #### [place] [id number] CBCon 02-06-2024 Erythrocyte distribution width (RBC) [Ratio] 12.7 % Normal 11.5-15.5 [facility] Comment on above: Performed By: #### 1 47126, 396258, 409553, 543872 #### [place] [address] Hematocrit (Bld) [Volume fraction] 37.6 % Normal 34.0-46.0 [facility] Comment on above: Performed By: #### 1 60145, 054699, 939877, 926631 #### [place] [address] Hgb 12.9 G/dL Normal 12.0-16.0 [facility] Comment on above: Performed By: #### 1 54932, 966484, 860338, 860744 #### [place] [id number] MCH (RBC) [Entitic mass] 26.3 pg Low 27.0-33.0 [facility] Comment on above: Performed By: #### 1 89637, 266988, 965407, 294748 #### [place] [address] MCHC 34.2 G/dL Normal 32.0-36.0 [facility] Comment on above: Performed By: #### 1 94779, 571623, 336983, 868894 #### [place] [address] MCV (RBC) [Entitic vol] 77.0 fL Low 80.0-99.0 [facility] Comment on above: Performed By: #### 1 86464, 851014, 019401, 976016 #### [place] [address] Platelet 362 10 3/mcL Normal 150-450 [facility] Comment on above: Performed By: #### 1 04706, 295591, 721508, 321328 #### [place] [address] Platelet mean volume (Bld) [Entitic vol] 7.2 fL Normal 6.6-10.5 [facility] Comment on above: Performed By: #### 1 92006, 023633, 676121, 279625 #### [place] [address] RBC 4.89 10 6/mcL Normal 4.10-5.30 [facility] Comment on above: Performed By: #### 1 45866, 800262, 439755, 914954 #### [place] [address] WBC 8.0 10 3/mcL Normal 4.5-10.8 [facility] Comment on above: Performed By: #### 1 91180, 153882, 434520, 702805 #### [place] [address] CMPon 02-06-2024 Albumin Level 3.3 G/dL Low 3.5-5.0 [facility] Comment on above: Performed By: #### G FR, CMP #### [address] [address] Albumin/Globulin [Mass ratio] 0.9 {ratio} Low 1.1-2.5 [facility] Comment on above: Performed By: #### G , CMP #### [address] [address] ALP [Catalytic activity/Vol] 102 U/L Normal 40-135 [facility] Comment on above: Performed By: #### G , CMP #### [address] [address] ALT [Catalytic activity/Vol] 30 U/L Normal 14-59 [facility] Comment on above: Performed By: #### G , CMP #### [address] [address] AST [Catalytic activity/Vol] 27 U/L Normal 10-40 [facility] Comment on above: Performed By: #### Charo NAM, CMP #### [address] [address] Bili Total 0.3 mg/dL Normal 0.2-1.0 [facility] Comment on above: Result Comment: Use of this assay is not recommended for patients undergoing treatment with eltrombopag due to the potential for falsely elevated results. Performed By: #### Charo NAM, CMP #### [address] [address] BUN/Creatinine Ratio 4 ratio Low 7-27 [facility] Comment on above: Performed By: #### G , CMP #### [address] [address] Calcium [Mass/Vol] 9.4 mg/dL Normal 8.4-10.2 [facility] Comment on above: Performed By: #### G , CMP #### [address] [address] Chloride [Moles/Vol] 90 mmol/L Low 98-107 [facility] Comment on above: Performed By: #### G , CMP #### [address] [address] CO2 [Moles/Vol] 26 mmol/L Normal 22-29 [facility] Comment on above: Performed By: #### G FR, CMP #### [address] [address] Creatinine [Mass/Vol] 0.82 mg/dL Normal 0.55-1.02 [facility] Comment on above: Result Comment: Test ing performed on Siemens Dimension EXL analyzer using a modified kinetic Alexi technique. Performed By: #### G FR, CMP #### [address] [address] Electrolyte Balance 13.0 mEq/L Normal 4.0-15.0 [facility] Comment on above: Performed By: #### G , CMP #### [address] [address] Globulin 3.8 G/dL Normal [facility] Comment on above: Performed By: #### G , CMP #### [address] [address] Glucose [Mass/Vol] 120 mg/dL High 70-105 [facility] Comment on above: Performed By: #### G , CMP #### [address] [address] Potassium [Moles/Vol] 2.8 mmol/L Low 3.5-5.1 [facility] Comment on above: Performed By: #### G FR, CMP #### [address] [address] Sodium [Moles/Vol] 129 mmol/L Low 136-145 [facility] Comment on above: Performed By: #### G FR, CMP #### [address] [address] Total Protein 7.1 G/dL Normal 6.4-8.2 [facility] Comment on above: Performed By: #### G FR, CMP #### [address] [address] Urea nitrogen [Mass/Vol] 3 mg/dL Low 7-18 [facility] Comment on above: Performed By: #### G FR, [facility] #### [facility] [address] [place], [place] [address] CPEPon 02-06-2024 C-Peptide 7.70 ng/mL High 0.81-3.85 [facility] Comment on above: Performed By: #### 1 43646, 814142, 262615, 502099 #### [address] [address] DLDLon 02-06-2024 Direct LDL Cholesterol 86 mg/dL Normal 0-99 [facility] Comment on above: Result Comment: Dire ct LDL Cholesterol Reference Interval: Optimal: <100 mg/dL Near Optimal/above optimal: 100-129 mg/dL Borderline high: 130-159 mg/dL High: 160-189 mg/dL Very high: >=190 mg/dL Performed By: #### 1 50726, 141251, 366634, 708228 #### [address] [address] FT3on 02-06-2024 Free T3 [Mass/Vol] 3.06 pg/mL Normal 2.30-4.00 [facility] Comment on above: Performed By: #### 1 80265, 458397, 725996, 282146 #### [address] [address] FT4on 02-06-2024 Free T4 [Mass/Vol] 1.10 ng/dL Normal 0.76-1.46 [facility] Comment on above: Performed By: #### 1 58808, 533388, 454594, 621077 #### [address] [address] INSLNon 02-06-2024 Insulin 78.32 munit/L High 2.60-37.60 [facility] Comment on above: Performed By: #### 1 26077, 336797, 964751, 268113 #### [address] [address] LABORATORYOrdered By: SYSTEM SYSTEM on 02-06-2024 25-hydroxyvitamin D3 [Mass/Vol] 46.2 ng/mL Invalid Interpretation Code AO ADM SS Comment on above: Interpretive Data: I nterpretive Values Based on Total 25(OH) Vitamin D: Deficient <20 ng/mL Insufficient 20 - <30 ng/mL Sufficient 30-100 ng/mL C peptide [Mass/Vol] 7.70 ng/mL High 0.81 - 3.85 ng/mL AH ADM SS Free T3 [Mass/Vol] 3.06 pg/mL Normal 2.30 - 4. 00 pg/mL AO ADM SS Free T4 [Mass/Vol] 1.10 ng/dL Normal 0.76 - 1. 46 ng/dL AO ADM SS Glucose [Mass/Vol] 105 mg/dL Invalid Interpretation Code AO Chemistry S Comment on above: Interpretive Data: E stimated average glucose (eAG) is a calculated value from Hemoglobin A1C and is community health representative of the average blood glucose level in the last 2-3 month period. Normal range: less than 114 mg/dL HbA1c (Bld) [Mass fraction] 5.3 % Normal 4.3 - 6.4 % AO ADM SS Insulin Qn 78.32 munit/L High 2.60 - 37.60 mU/L AH ADM SS Magnesium [Mass/Vol] 1.7 mg/dL Low 1.8 - 2 .4 mg/dL AO ADM SS TSH Qn 3.29 m[IU]/L Normal 0.36 - 3.74 mcIU/mL AO ADM SS Albumin BCP dye [Mass/Vol] 3.3 G/dL Low 3.5 - 5.0 G/dL AO ADM SS Albumin/Globulin [Mass ratio] 0.9 {ratio} Low 1.1 - 2.5 ratio AO ADM SS ALP [Catalytic activity/Vol] 102 U/L Normal 40 - 135 U/L AO ADM SS ALT With P-5'-P [Catalytic activity/Vol] 30 U/L Normal 14 - 59 U/L AO ADM SS AST With P-5'-P [Catalytic activity/Vol] 27 U/L Normal 10 - 40 U/L AO ADM SS Bilirubin [Mass/Vol] 0.3 mg/dL Normal 0.2 - 1 .0 mg/dL AO ADM SS Comment on above: Interpretive Data: U se of this assay is not recommended for patients undergoing treatment with eltrombopag due to the potential for falsely elevated results. Calcium [Mass/Vol] 9.4 mg/dL Normal 8.4 - 10. 2 mg/dL AO ADM SS Chloride [Moles/Vol] 90 mmol/L Low 98 - 10 7 mmol/L AO ADM SS CO2 [Moles/Vol] 26 mmol/L Normal 22 - 29 mmol/L AO AD M SS Creatinine [Mass/Vol] 0.82 mg/dL Normal 0.55 - 1.02 mg/dL AO ADM SS Comment on above: Interpretive Data: T esting performed on Siemens Dimension EXL analyzer using a modified kinetic Alexi technique. Electrolyte Balance 13.0 mEq/L Normal 4.0 - 15 .0 mEq/L AO ADM SS GFR/1.73 sq M.predicted among blacks MDRD (S/P/Bld) [Vol rate/Area] 99 ml/min/1.73sqm Invalid Interpretation Code AO Chemistry S Comment on above: Interpretive Data: GFR Population mean for , Non- Americans Ages 20-29 = 116 mL/min/1.73 sq.m. Ages 30-39 = 107 mL/min/1.73 sq.m. Ages 40-49 = 99 mL/min/1.73 sq.m. Ages 50-59 = 93 mL/min/1.73 sq.m. Ages 60-69 = 85 mL/min/1.73 sq.m. Ages 70+ = 75 mL/min/1.73 sq.m. Chronic Kidney Disease: Less than 60 mL/min/1.73 square meters End Stage Renal Disease: Less than 15 mL/min/1.73 square meters GFR/1.73 sq M.predicted among non-blacks MDRD (S/P/Bld) [Vol rate/Area] 81 ml/min/1.73sqm Invalid Interpretation Code AO Chemistry S Comment on above: Interpretive Data: GFR Population mean for , Non- Americans Ages 20-29 = 116 mL/min/1.73 sq.m. Ages 30-39 = 107 mL/min/1.73 sq.m. Ages 40-49 = 99 mL/min/1.73 sq.m. Ages 50-59 = 93 mL/min/1.73 sq.m. Ages 60-69 = 85 mL/min/1.73 sq.m. Ages 70+ = 75 mL/min/1.73 sq.m. Chronic Kidney Disease: Less than 60 mL/min/1.73 square meters End Stage Renal Disease: Less than 15 mL/min/1.73 square meters Globulin 3.8 G/dL Invalid Interpretation Code AO ADM SS Glucose [Mass/Vol] 120 mg/dL High 70 - 105 mg/dL AO ADM SS Potassium [Moles/Vol] 2.8 mmol/L Low 3.5 - 5.1 mmol/L AO ADM SS Protein [Mass/Vol] 7.1 G/dL Normal 6.4 - 8.2 G/dL AO ADM SS Sodium [Moles/Vol] 129 mmol/L Low 136 - 145 mmol/L AO ADM SS Urea nitrogen [Mass/Vol] 3 mg/dL Low 7 - 18 mg/dL AO ADM SS Urea nitrogen/Creatinine [Mass ratio] 4 ratio Low 7 - 27 ratio AO ADM SS Basophils (Bld) [#/Vol] 0.0 103/mcL Normal 0.0 - 0.2 10^3/mcL AO Workflow SS Basophils/100 WBC (Bld) 0.5 % Normal 0.0 - 2.5 % AO Workflow SS Eosinophil, Absolute 0.1 103/mcL Normal 0.0 - 0 .7 10^3/mcL AO Workflow SS Eosinophils/100 WBC (Bld) 1.4 % Normal 0.0 - 7.0 % AO Workflow SS Erythrocyte distribution width (RBC) [Ratio] 12.7 % Normal 11.5 - 15.5 % AO Workflow SS Hematocrit (Bld) [Volume fraction] 37.6 % Normal 34.0 - 46.0 % AO Workflow SS Hemoglobin (Bld) [Mass/Vol] 12.9 G/dL Normal 12.0 - 16.0 G/dL AO Workflow SS Lymphocytes (Bld) [#/Vol] 3.0 103/mcL Normal 0.9 - 4.3 10^3/mcL AO Workflow SS Lymphocytes/100 WBC (Bld) 37.6 % Normal 20.0 - 40.0 % AO Workflow SS MCH (RBC) [Entitic mass] 26.3 pg Low 27.0 - 33.0 pg AO Workflow SS MCHC 34.2 G/dL Normal 32.0 - 36.0 G/dL AO Workflow SS MCV (RBC) [Entitic vol] 77.0 fL Low 80.0 - 99.0 fL AO Workflow SS Monocytes (Bld) [#/Vol] 0.5 103/mcL Normal 0.1 - 1.4 10^3/mcL AO Workflow SS Monocytes/100 WBC (Bld) 6.9 % Normal 2.0 - 13.0 % AO Workflow SS Neutrophils (Bld) [#/Vol] 4.3 103/mcL Normal 2.3 - 8.1 10^3/mcL AO Workflow SS Neutrophils/100 WBC (Bld) 53.6 % Normal 50.0 - 75.0 % AO Workflow SS Platelet mean volume (Bld) [Entitic vol] 7.2 fL Normal 6.6 - 10.5 fL AO Workflow SS Platelets (Bld) [#/Vol] 362 103/mcL Normal 150 - 450 10^3/mcL AO Workflow SS RBC (Bld) [#/Vol] 4.89 106/mcL Normal 4.10 - 5.3 0 10^6/mcL AO Workflow SS WBC (Bld) [#/Vol] 8.0 103/mcL Normal 4.5 - 10.8 10^3/mcL AO Workflow SS LABORATORYOrdered By: Camilo Schneider on 02-06-2024 Cholesterol [Mass/Vol] 182 mg/dL Normal 0 - 200 mg/dL AO [facility] Comment on above: Interpretive Data: C holesterol Reference Interval: Less than 200 Desirable 200-239 Borderline high risk 240 and above High risk Cholesterol in HDL [Mass/Vol] 33 mg/dL Low 40 - 60 mg/dL AO ADM SS Cholesterol in LDL [Mass/Vol] 86 mg/dL Normal 0 - 99 mg/dL AO [facility] Comment on above: Interpretive Data: D irect LDL Cholesterol Reference Interval: Optimal: <100 mg/dL Near Optimal/above optimal: 100-129 mg/dL Borderline high: 130-159 mg/dL High: 160-189 mg/dL Very high: >=190 mg/dL LDL Cholesterol Not Valid Invalid Interpretation Code 0 - 130 AO ADM SS Comment on above: Result Comment: Trig lyceride >400 invalidates the calculated LDL. Triglyceride [Mass/Vol] 525 mg/dL High 0 - 150 mg/dL AO ADM SS Comment on above: Interpretive Data: T riglyceride Reference Interval: Less than 150 Normal 150-199 Borderline high risk 200-499 High risk 500 or higher Very high risk LIPIDon 02-06-2024 Cholesterol [Mass/Vol] 182 mg/dL Normal 0-200 [facility] Comment on above: Result Comment: Chol esterol Reference Interval: Less than 200 Desirable 200-239 Borderline high risk 240 and above High risk Performed By: #### 1 66822, 775048, 305227, 811184 #### [place] [address] [place] [address] Cholesterol in HDL [Mass/Vol] 33 mg/dL Low 40-60 [facility] Comment on above: Performed By: #### 1 83644, 512686, 581771, 958693 #### [facility] [address] [place] [address] LDL Cholesterol Not Valid Normal 0-130 [facility] Comment on above: Result Comment: Trig lyceride >400 invalidates the calculated LDL. Performed By: #### 1 11379, 092429, 744065, 456095 #### [address] [address] Triglyceride [Mass/Vol] 525 mg/dL High 0-150 [facility] Comment on above: Result Comment: Trig lyceride Reference Interval: Less than 150 Normal 150-199 Borderline high risk 200-499 High risk 500 or higher Very high risk Performed By: #### 1 34126, 147812, 101204, 027788 #### [place] [address] [place] [address] MGon 02-06-2024 Magnesium [Mass/Vol] 1.7 mg/dL Low 1.8-2.4 [facility] Comment on above: Performed By: #### 1 85726, 603746, 203157, 666955 #### [place] [address] [place] [address] TSHon 02-06-2024 TSH Qn 3.29 m[IU]/L Normal 0.36-3.74 [facility] Comment on above: Performed By: #### 1 84791, 494024, 826615, 522148 #### [place] [address] [place] [address] VIDHon 02-06-2024 Vit. D 25-Hydroxy 46.2 ng/mL Normal [facility] Comment on above: Result Comment: Inte rpretive Values Based on Total 25(OH) Vitamin D: Deficient <20 ng/mL Insufficient 20 - <30 ng/mL Sufficient 30-100 ng/mL Performed By: #### 1 21354, 559688, 604422, 298554 #### [place] [address] [place] [address] [id number] 01-29-2024 [id number] Phone call on 01/28 and 01/29 at pt preferred #. No answer. Left message on voicemail. Will wait for a return call to further discuss. [facility] 36on 01-25-2024 36 Pt called in very upset about her iso prescription, She was requesting to speak with Marie or Dr Hanley, I advised her they were not in the office today and I can send a message out to them, She is requesting that someone calls her tomorrow about her iso so she does not get kicked off ipledge [facility] 36 Patient called and left a follow up message on our voicemail requesting a call back in regards to her Isotretinoin. [facility] 36on 01-24-2024 36 Patient returned luis l, available for a call back. Thank you. [facility] 29on 01-22-2024 29 Addended by: MARIE LARIOS on: 01/23/2024 09:45 AM Modules accepted: Orders [facility] HCG ( test) Ql (U)o n 01-22-2024 Beta HCG ( test) Ql (U) [id number] [facility] Interpretation and review of laboratory results Normal [facility] NEGATIVE QC Pass [facility] Health POSITIVE QC Pass [facility] IntelePeer Preg Test, Ur Negative Negative [facility] Healt [facility] Office Visiton 01-22-2024 Follow-up visit [id number] Mouna Wynne 1995 F Date Provider Department Center 01/22/2024 233-MARIE LARIOS [facility] [place] None No family history on file Level of Service:31525 [place] OFFICE/OUTPATIENT ESTABLISHED MOD MDM 30 MIN Reason for Visit and Comments: Acne [[id number]] - (PKN) [facility] Progress Noteon 01-22-2024 Progress Note DATE OF SERVICE: 01/22/2024 PATIENT NAME: Maria T Wynne : 1995 AGE: 29 y.o. CLINIC NUMBER: [id number] Visit type: Established patient Chief Complaint Patient presents with Acne (PKN) Subjective HISTORY OF PRESENT ILLNESS: This is a 29 y.o. female who presents for evaluation of acne; last seen 11/15/2023. Unchanged since last visit. Patient is currently on isotretinoin 40 mg BID x 5 months. Start date 03/2023. Patient completed 4 months of isotretinoin 08/02/2023- patient states she never actually took a single isotretinoin pill and that this is her first month completed. Patient states she lied in previous appointments saying she was taking the medication when she wasn't. Pt states she has 2 months worth of unopened medication at home. Patient admits extremely dry and irritated skin. Admits new breakouts. Pt using Lancome wash and lotion, and Aquaphor. Interim History: Tolerating medication well. Patient does complain of dry lips- Aquaphor, triamcinolone 0.1% ointment. Patient does complain of nosebleeds. The patient admits headaches, visual changes, photosensitivity. Admits nausea. Admits almost daily rectal bleeding when using the bathroom x a couple weeks- pt states she thought this was related to hemorrhoids. Bleeding does not continue once done using the bathroom. Denies muscle/joint pains, fatigue, nausea/vomiting, diarrhea, abdominal pain. Denies hair loss. Denies changes in mood including: depression, increased feelings of anger, and suicidal ideations. Pt admits has depression is already always depressed and angry. Denies worsening. Pt [employer] ID #[id number]. Pts 2 forms of contraception OCP and Male Latex Condoms. Are you , trying to become or ? No History of pacemaker/ defibrillator? No History of HIV/ Hep C? Yes Hep C, treated Allergies to Lidocaine, Epinephrine, Latex or Adhesive? No Review of Systems Orders Placed This Encounter Medications DISCONTD: ISOtretinoin (Accutane) 40 MG capsule Sig: Take 1 capsule (40 mg) by mouth 2 times daily (with meals). Dispense: 60 capsule Refill: 0 Pt [email or web address] #[id number] There were no vitals filed for this visit. PHYSICAL EXAM GENERAL APPEARANCE:?Alert & oriented x3, pleasant. Well developed, well nourished. PSYCH: appropriate mood and affect DERMATOLOGY: (all measurements are in cm, unless otherwise noted) 1. Acne vulgaris Head - Anterior (Face) One acneiform papule of the forehead [x]Chronic []Acute [x]Stable []Flaring/Exacerbation After further questioning this case, and further discussion with Dr. Hanley, I have addended this note. Patient has been seeing [facility] since February of 2022 for acne. It was agreed upon between patient and provider to treat with accutane. Accutane is a strictly controlled and regulated medication at the federal level, due to the possible detrimental effects if exposed to a fetus. Patient has to be seen for a visit monthly and has to have negative tests monthly in order for script to be sent. Patient signed [employer] paperwork and has failed to abide by their rules and regulations. We as a practice, follow these strict regulations through [employer] to ensure patient safety. Her first accutane script was sent in April 2022. Patient picked up multiple scripts of accutane and never took them as she was "hesitant to start". Due to lack of compliance patient was kicked out of [employer] and had to re-register and confirm 2 negative pregnancies 30 days apart. Another script was able to be sent in March of 2023. 04/24/23 note: patient states she has been taking medicine for one month and reports dry lips. 05/30/23 note: patient follow ups for accutane after her 2nd month of treatment. Reports taking medicine and reports common side effects like dry lips. 07/03/23 note: patient reports completing 3 months of isotretinoin. Due to non-compliance, patient was kicked out of [employer] and had to delay getting treatment. HOWEVER, patient had extra month supply at home and continued to take these for her 3rd month of treatment. 08/02/23 visit: patient reports taking isotretinoin for 4 months. At this visit, patient does not feel like her skin has improved from accutane. So it was decided between patient and myself to stop accutane at this point since patient isn't seeing any results. 08/16/23 patient messages office stating that she actually wants to finish 5 month course of accutane and changes her mind Due to [facility] rules and regulations patient had to repeat 2 negative tests 30 days apart. 11/15/2023: patient re-started isotretinoin and her 5th month of prescription was sent in. Due to non-compliance and missed window, patient script was not picked up until mid December. During today's visit 01/22/24, Patient states she has lied at all the previous office visits and never took her isotretinoin pills. She st (more content not included)... [facility] 12-28-2023 [facility] Telephone (WHQ) MARIA T WYNNE ([id number]) 1995 F Date Time Provider Department 12/28/23 MEME VERGARA Q During your visit today, we recorded the following information about you: Meme Malone 12/28/2023 1:35 PM Addendum Patient: Maria T Wynne : 1995 Provider: Meme Vergara MD Caller Phone #: [phone] [facility] Reason for call: [facility], needing to verify medication use. Pt has an opioid use disorder so they need to make sure Dr Vergara is aware. [phone] REF [id number] Message routed to nurse triage Date of next visit: Appointments for Next 60 Days Date Time Provider Location Dept Phone 01/08/2024 1:00 PM MEME VERGARA A Bldg [phone] Evelyn Rivero RN 12/28/2023 2:30 PM Signed Patient comment: Wendi calling from [place] Dept of medicaid drug utilization, needing to verify medication use. Pt has an opioid use disorder so they need to make sure Dr Vergara is aware. [phone] REF [id number] --- ASSESSMENT (N94.5) Secondary dysmenorrhea (primary encounter diagnosis) (R10.2, G89.29) Chronic pelvic pain in female (Z51.81, Z79.899) Encounter for monitoring Suboxone maintenance therapy PLAN 1. Preoperative counseling Patient counseled on options including watchful waiting, medications, and physical therapy and she elects to proceed with the above procedure. Consent discussed in detail with patient today and signature obtained. She confirmed understanding and all questions were answered to her stated satisfaction. Patient was counseled on the risks of the general risks of the procedure including but not limited to: hemorrhage that may require blood transfusion with the associated risk of viral transmission of Hepatitis B 1/300,000, Hepatitis C 1 in 1.5 million, and HIV 1/2 million ([place] 2021) infection that could require oral or IV antibiotics and/or readmission to the hospital damage to adjacent structures including but not limited to: bladder, bowels, ureters (tubes that connect kidneys to bladder), pelvic organs (ovaries, fallopian tubes, uterus or womb), blood vessels with the possibility of re-operation. damage to nerves that may cause bladder/bowel dysfunction or sexual dysfunction venous thrombosis/pulmonary embolism (blood clots to the legs or lungs) anesthesia complications including cardiopulmonary complications (problems with heart of lungs) fatal complications resulting in failure of the procedure to fix problem and recurrence of problem. She would accept a blood transfusion if medically necessary. She has not had a blood transfusion in the past. Patient was counseled that although the goal of this procedure is to improve her pain, there is no guarantee that pain will improve and there is also a chance it could worsen pain. Patient is agreeable to a pelvic exam by myself and no more than 2 trainees while under anesthesia. Patient does asher permission for surgical images and/or surgical video footage to be recorded for medical educational purposes. She was counseled that privacy will be maintained with footage including only non-identifiable images and all images and video recordings will be de-identified prior to educational use. Pre-op She has comorbid medical conditions. She was not advised to obtain medical clearance prior to surgery. She was not given instructions to complete a bowel prep the day before surgery. Her resuscitative status is full code. Medications reconciled at today's visit. Pre-op labs: per anesthesia She will have preop teaching with the RN Will get updated pelvic ultrasound Ines-op Instructed to be NPO 2 hours prior to surgery, no solids 8 hours preop. Antibiotics: per SCIP guidelines: Not indicated DVT prophylaxis: SCD's Request TAP block Post-op Plan for discharge home on day of surgery. Post-op expectations and instructions discussed. All questions answered. Discussed postoperative pain management issues given Zubsolv. Patient not interested in weaning in anticipation of surgery due to risk of withdrawal. Has used Ultram in the past for procedure related pain while on Zubsolv and tolerated well. Discussed also temporarily increasing her Lyrica from 100 TID to 150mg TID for a week perioperatively. Patient will schedule post operative exam 2 AND 6 weeks after procedure. Patient verbalized understanding of the plan of care and all questions were answered to her stated satisfaction. Meme Vergara MD Maria T was seen today for pre-op visit. Diagnoses and all orders for this visit: Secondary dysmenorrhea - US FEMALE PELVIS TRANSVAG; Future Chronic pelvic pain i (more content not included)... Normal [facility] 36on 12-07-2023 36 Spoke to patient. Pt advised of the below. [facility] 36 Attempted to contact pt. Left voicemail advising of HCG result and iPledge confirmation. Advised pt that she has through December 11 to answer her questions on iPledge and roller picker her prescription. [employer] message sent to patient as well. Normal [facility] 36 test reviewed. New script sent. Please confirm. Normal [facility] HCG Preg Ur Qlon 12-06-2023 HCG ( test) Ql (U) Negative Normal Negative [facility] Comment on above: Order Comment: Speci men Type: SWAB Ordering Facility: [facility] Address: [address] [place] [address] Result Comment: This test is intended to aid in the early detection of . Very dilute urine samples, as indicated by a low specific gravity, may not contain community health representative levels of hCG. This test detects intact hCG only. This test does not reliably detect hCG degradation products, including free-beta subunit and beta-core fragment. Therefore, this test may show reduced reactivity in urine after 8 weeks gestation. A number of conditions other than , including trophoblastic disease and certain non-trophoblastic neoplasms cause elevated levels of hCG. As with any assay employing mouse antibodies, the possibility exists for interference by human anti-mouse antibodies (HAMA) in the specimen. The test provides a presumptive diagnosis for . Performed By: #### C VTTerrence, BVAMP #### [facility] CLIA [id number] [address] [place], [place] [address]K [address] OF [address] 11-27-2023 36 Spoke to patient. Patient was notified via voicemail on 11/17/23 that she is confirmed in iPledge and has until 11/23/23 to roller picker her medication. Pt states she never received a voicemail. Pt states that she has memory issues and would like to make a request that staff reach out to her numerous times until they speak with her directly. Pt advised that she will have to wait 19 days after her first test to retake the test and restart the window for picking up her medication. Pt advised the soonest she can retake the test is 12/06/23. Pt gets her labs done through [facility], advised pt that we will mail her lab order today and that she should be able to print it from [employer] as well. Copy of lab order mailed to patient's home today. Normal [facility] 36 Patient states she cannot remember if she was called back after her last test to discuss her IPledge. She would like a call back to discuss. Thank you. Normal [facility] 11-24-2023 CNPN Telephone (GYNMN) CHARLIESHADIMARIA T SALAS ([id number]) 1995 F Date Time Provider Department 11/24/23 MEME VERGARA GYNMN During your visit today, we recorded the following information about you: Elly Bridges RN 03/15/2024 8:22 AM Signed [facility] SECTION FOR MINIMALLY INVASIVE GYNECOLOGIC SURGERY AND CHRONIC PELVIC PAIN Postop call Left patient a voice message POD# NUMBERS 1-12: [address] Vergara. 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 Able to tolerate with anti-emetics NAPROXEN 01/31/2012 8 - GI Upset Comments: Headache/GI upset NICKEL 02/20/2023 2 - Rash PENICILLINS 04/06/2005 4 - Hives SULFA (SULFONAMIDE ANTIBIOTICS) 05/18/2018 14 - Other: See Comments Comments: "It is like the flu x 10" SULFAMETHOXAZOLE-TRIME THOPRIM 12/06/2021 14 - Other: See Comments Date Reviewed: 11/23/2023 Reviewed by: Carlos Gamez RN - Fully Assessed Reason for Visit: Post Op Follow Up [3947] Prescriptions as of 03/15/2024 - TIRZEPATIDE, WEIGHT LOSS, SUBCUTANEOUS Inject subcutaneously. - acetaminophen (TYLENOL) 500 mg tablet Take 1 tablet by mouth every 6 hours. May change to as needed when pain manageable - ibuprofen (MOTRIN) 600 mg tablet Take 1 tablet by mouth every 6 hours. May change to as needed when pain manageable - ondansetron orally disintegrating (ZOFRAN ODT) 4 mg disintegrating tablet Take 1 tablet by mouth every 8 hours as needed (postoperative nausea/vomiting). - clobetasol (TEMOVATE) 0.05 % ointment Apply to vulva BID for 30 days then once daily for 30 days then every other day for 30 days - lidocaine-prilocaine (EMLA) 2.5-2.5 % cream Apply to affected area as needed. Apply to vulva 30 min prior to appointment - metFORMIN ER (GLUCOPHAGE XR) 500 mg 24 hr tablet Take 500 mg by mouth daily with breakfast. - acyclovir (ZOVIRAX) 400 mg tablet Take 2 tablets by mouth once daily. - MYRA FE 04/01, 28, 1 mg-20 mcg (21)/75 mg (7) per tablet Take 1 tablet by mouth once daily. Take active pills only - skip placebo pills. - imiquimod (ALDARA) 5 % cream Apply to affected area Monday, Monday, and Monday. - CPAP/BIPAP/OTHER AutoCPAP 6-9 cmH20. DME: [employer]. - ZUBSOLV 2.9-0.[address] 2 (TWO) TABLETS UNDER THE TONGUE EVERY DAY - polyethylene glycol 3350 (MIRALAX) 17 gram/dose powder Take 17 g by mouth three times daily as needed for constipation. Dissolve dose in 4 - 8 ounces of liquid and take as directed. - hydroCHLOROthiazide 12.5 mg capsule Take 12.5 mg by mouth once daily. - pregabalin (LYRICA) 100 mg capsule Take 100 mg by mouth three times daily. - ezetimibe (ZETIA) 10 mg tablet Take 10 mg by mouth once daily. - hydrOXYzine HCl (ATARAX) 50 mg tablet TAKE 1 TO 2 TABLETS FOUR TIMES DAILY NEEDED FOR ANXIETY - omeprazole magnesium (PRILOSEC ORAL) Take by mouth. - cloNIDine HCl (CATAPRES) 0.1 mg tablet (Prior Auth#:[id number]) - methocarbamol (ROBAXIN) 750 mg tablet Take 750 mg by mouth four times daily as needed. - ibuprofen (MOTRIN) 600 mg tablet Take 1 tablet by mouth every 6 hours as needed. FOR PAIN. 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] 01/09/2007 04/17/2017 Contact dermatitis and other eczema, due to uns*01/09/2007 04/17/2017 Unspecified pruritic disorder [L29.9] 01/09/2007 04/17/2017 Insect bite NEC [W57.XXXA] 12/17/2007 03/03/2011 Scabies [B86] 12/17/2007 03/03/2011 Other atopic dermatitis and related conditions *12/17/2007 Seborrheic dermatitis, unspecified [L21.9] 03/28/2008 12/16/2014 Ganglion, unspecified [M67.40] 03/28/2008 04/17/2017 Bipolar disorder, unspecified (HCC) [F31.9] 06/10/2008 04/17/2017 Migraines [G43.909] 08/20/2013 Anxiety [F41.9] 10/23/2014 03/04/2021 Back ache [M54.9] 10/23/2014 03/04/2021 Bipolar affective disorder (HCC) [F31.9] 12/16/2014 03/04/2021 Opioid dependence with withdrawal (HCC) [F11.23]12/16/2014 Fissure in ano [K60.2] 07/29/2015 Opioid abuse (HCC) [F11.10] 08/13/2015 03/04/2021 TMJ (dislocation of temporomandibular joint) [S*08/13/2015 History of suicidal ideation [Z86.59] 04/06/2017 03/04/2021 History of herpes genitalis [Z86.19] 04/06/2017 (more content not included)... Normal [facility] ANES PRE-OPon 11-23-2023 ANES PRE-OP HNO ID: [id number] Author: CARLOS HARDIN MD Service: Anesthesiology Author Type: Anesthesiologist Type: Anesthesia Preprocedure Evaluation Filed: 11/23/2023 11:46 Note Text: ANESTHESIOLOGY DAY OF SURGERY NOTE : 1995 Procedure Information Date/Time: 11/23/23 0945 Procedures: LAPAROSCOPY FULGURATION OR EXCISION OF LESIONS OF THE OVARY PELVIC VISCERA OR PERITONEAL SURFACE BY ANY METHOD LAPAROSCOPIC APPENDECTOMY ADULT (Right) Location: [facility]21[facility] / [facility] Surgeons: Meme Vergara MD Estimated body mass index is 37.54 kg/m? as calculated from the following: Height as of 11/06/23: 149.9 cm (4' 11"). Weight as of this encounter: 84.3 kg (185 lb 13.6 oz). Most recent hematocrit and potassium results: Hematocrit 42.0 11/14/2023 Potassium 3.5 11/14/2023 Relevant Problems ANESTHESIA (+) MICHELLE (obstructive sleep apnea) CARDIO (+) Migraines NEURO-PSYCH (+) History of herpes genitalis (+) Migraines PULMONARY (+) History of herpes genitalis (+) MICHELLE (obstructive sleep apnea) Bipolar disease History of drug abuse BMI 37.5 I - PHYSICAL EVALUATION AIRWAY Patient intubated: No. Tracheostomy tube not present Mallampati: III. TM distance: >3 FB. Neck ROM: full ROM without neurological symptoms. Mouth opening: adequate. Short neck: no. Thick neck: yes Laureano present: no DENTAL Dental findings: teeth intact. Additional exam findings: no II - ANESTHESIA PLAN ASA Score: 2 Anesthetic Plan: general Airway type: ETT The patient is not a current smoker. NPO Status: adequate Anesthetic plan additional comments: Has nasal and lip piercing, says can come out , wants them taped, explained that will tape, but if anything gets tangled might end up in lip or tongue injury. Also she has chest dermal piercings, surgeon aware and told here that might be skin burn with cautery, patient aware. A lso d/w patient that we do ET tube very carefully under vision and we place ET tube. Patient agrees to proceed. Getting TAP blocks. Beta Elaine Administration of chronic beta elaine medication not planned. Monitoring Plan Monitoring plan: standard ASA. Post Procedure Analgesic Plan Postoperative analgesic plan: parenteral or oral opioids, peripheral nerve block and multimodal analgesia. Informed Consent Anesthetic risks, benefits, alternatives, personnel and consent discussed: yes. Patient / Responsible [employer] Party agrees to proceed: yes Patient / Surrogate agrees to blood products: blood products not planned DNR status not reviewed with patient and/or family prior to surgery. Significant changes in the patient condition since the History and Physical, not otherwise documented in primary service progress note: no. Potential Anesthesia issues that may suggest increased risk of complications or contraindication to planned procedure: none. Discussed the possibility of lip / dental damage: no Vitals Value Taken Time BP 126/80 11/23/23908 Pulse 88 11/23/23908 Resp 20 11/23/23908 Temp 36.9 ?C (98.4 ?F) 11/23/23908 SpO2 95 % 11/23/23908 Facility-Administered Medications as of 11/23/2023 Medication Dose Route Frequency acetaminophen 1,000 mg tab(s) (TYLENOL) 1,000 mg ORAL Pre-Op Once phenazopyridine 200 mg tab(s) (PYRIDIUM) 200 mg ORAL Pre-Op Once scopolamine 1 mg over 3 days 1 Patch (TRANSDERM-SCOP) 1 Patch TRANSDERMAL q 72 HR And scopolamine - REMOVE PATCH OTHER q 72 HR And scopolamine - VERIFY patch OTHER q 8 H lidocaine (PF) 10 mg/mL (1 %) 1-2 mg injection (XYLOCAINE) 0.1-0.2 mL INTRADERMAL PRN lactated ringers iv infusion 5-30 mL/hr INTRAVENOUS CONTINUOUS NaCl 0.9% iv flush bag 20 mL INTRAVENOUS PRN metroNIDAZOLE iv piggyback 500 mg in NaCl (iso-osmotic) 100 mL (FLAGYL) 500 mg INTRAVENOUS Pre-Op Once And aztreonam 2 g in D5W 100 mL Vial-Bag (AZACTAM) 2 g INTRAVENOUS Pre-Op Once promethazine 12.5 mg tab(s) (PHENERGAN) 12.5 mg ORAL NOW Outpatient Medications as of 11/23/2023 Medication Sig ZUBSOLV 2.9-0.[address] 2 (TWO) TABLETS UNDER THE TONGUE EVERY DAY polyethylene glycol 3350 (MIRALAX) 17 gram/dose powder Take 17 g by mouth three times daily as needed for constipation. Dissolve dose in 4 - 8 ounces of liquid and take as directed. hydroCHLOROthiazide 12.5 mg capsule Take 12.5 mg by mouth once daily. pregabalin (LYRICA) 100 mg capsule Take 100 mg by mouth three times daily. ezetimibe (ZETIA) 10 mg tablet Take 10 mg by mouth once daily. hydrOXYzine HCl (ATARAX) 50 mg tablet TAKE 1 TO 2 TABLETS FOUR TIMES DAILY NEEDED FOR ANXIETY omeprazole magnesium (PRILOSEC ORAL) Take by mouth. cloNIDine HCl (CATAPRES) 0.1 mg tablet (Prior Auth#:[id number]) methocarbamol (ROBAXIN) 750 mg tablet Take 750 mg by mouth four times daily as needed. ibuprofen (MOTRIN) 600 mg tablet Take 1 tablet by mouth every 6 hours as needed. FOR PAIN. I have interviewed and examined the patient. I have reviewed the medical (more content not included)... Normal [facility] GLUCOSE, BLOOD (POC)on 11-22 Glucose [Mass/Vol] 97 mg/dL 74 - 99 mg/dL [facility] Comment on above: Location:[facility], [address] [place] [address], [place], [place], [facility] The Accu-Chek Inform II glucose meter has not been approved for testing on patients receiving intensive medical intervention or therapy and results from this point of care glucose test should not be used for patient management decisions in these cases. Inaccurate results may also occur from other interfering factors, such as N-acetylcysteine (blood concentrations of greater than 5mg/dL), galactose, extremes of hematocrit (<10 or >65), or high doses of ascorbic acid (vitamin C) greater than 3mg/dL. Consider alternate testing mechanisms (e.g. core lab, blood gas instrument) in the above situations. [facility] HISTORY PHYSICALon HISTORY PHYSICAL HNO ID: [id number] Author: MEME VERGARA MD Service: Gynecology Author Type: Physician Type: H&P Filed: 11/23/2023 11:39 Note Text: [facility] [place] SECTION FOR MINIMALLY INVASIVE GYNECOLOGIC SURGERY OUTPATIENT VISIT DATE 10/23/2023 OUTPATIENT VISIT TYPE HISTORY AND PHYSICAL Video Visit Patient location: Patient Home or Place of Residence Provider location: [facility] Facility Other participants in telemedicine encounter and roles: none Consent was obtained from the patient to complete this video visit; including the potential for financial liability and completion by telephone back up as necessary. CHIEF COMPLAINT Presurgical counseling HISTORY OF PRESENT ILLNESS Maria T Wynne is a 28 year old scheduled for laparoscopic resection of endometriosis on 11/23/23. Since last visit, there have not been changes to her medical history. Still having pain with her periods when she has them and irritation near the clitoris, urethra, vaginal opening On continuous OCPs Still getting pelvic floor related pain Her em physician changed her control, had more acne and her pelvic pain worse Would be ok with bowel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 Neutrophils/100 WBC (Bld) 63.8 % Normal [facility] Comment on above: Order Comment: Speci men Type: SWAB Ordering Facility: [facility] Address: [address] [place] [address] Performed By: #### C VTV, BVAMP #### [facility] CLIA [id number] [address] [place] [address] [place] Nucleated RBC (Bld) [#/Vol] 10*3/uL Normal <0.01 [facility] Comment on above: Order Comment: Speci men Type: SWAB Ordering Facility: [facility] Address: [address] [place] [address] Performed By: #### C VTV, BVAMP #### [facility] CLIA [id number] [address] [place] [address] [place] Nucleated RBC/100 WBC (Bld) [Ratio] 0.0 /100 WBC Normal [facility] Comment on above: Order Comment: Speci men Type: SWAB Ordering Facility: [facility] Address: [address] [place] [address] Performed By: #### C VTV, BVAMP #### [facility] CLIA [id number] [address] [place] [address] [place] Platelet mean volume (Bld) [Entitic vol] 9.5 fL Normal 9.0-12.7 [facility] Comment on above: Order Comment: Speci men Type: SWAB Ordering Facility: [facility] Address: [address] [place] [address] Performed By: #### C VTV, BVAMP #### [facility] CLIA [id number] [address] [place] [address] [place] Platelets (Bld) [#/Vol] 387 10*3/uL Normal 150-400 [facility] Comment on above: Order Comment: Speci men Type: SWAB Ordering Facility: [facility] Address: [address] [place] [address] Performed By: #### C VTV, BVAMP #### [facility] CLIA [id number] [address] [place] [address] [place] RBC (Bld) [#/Vol] 5.25 10*6/uL High 3.90-5.20 [facility] Comment on above: Order Comment: Speci men Type: SWAB Ordering Facility: [facility] Address: [address] [place] [address] Performed By: #### C VTV, BVAMP #### [facility] CLIA [id number] [address] [place] [address] [place] WBC (Bld) [#/Vol] 12.11 10*3/uL High 3.70-11.00 [facility] Comment on above: Order Comment: Speci men Type: SWAB Ordering Facility: [facility] Address: [address] [place] [address] Performed By: #### C VTV, BVAMP #### [facility] CLIA [id number] [address] [place] [address] [place] TYPE AND SCREEN,30 DAYon ABO O Normal [facility] Comment on above: Order Comment: Speci men Type: BLOOD SPECIMEN Ordering Facility: [facility] Address: [address] [place] [address] Performed By: #### T SCR30 #### [facility] CLIA [id number] [address] [place] [address] [place] HISTORICAL AB SCR STATUS Negative Normal [facility] Comment on above: Order Comment: Speci men Type: BLOOD SPECIMEN Ordering Facility: [facility] Address: [address] [place] [address] Performed By: #### T SCR30 #### [facility] CLIA [id number] [address] [place] [address] [place] Rh Nom (Bld) Positive Normal [facility] Comment on above: Order Comment: Speci men Type: BLOOD SPECIMEN Ordering Facility: [facility] Address: [address] [place] [address] Performed By: #### T SCR30 #### [facility] CLIA [id number] [address] [place] [address] [place] LABORATORYOrdered By: SYSTEM SYSTEM on 11-09-2023 Ferritin [Mass/Vol] 52.0 ng/mL Normal 8.0 - 25 2.0 ng/mL AO ADM SS Iron [Mass/Vol] 64 ug/dL Normal 50 - 170 mcg/dL AO ADM SS Iron binding capacity [Mass/Vol] 323 mcg/dL Normal 250 - 450 mcg/dL AO ADM SS Iron Sat 20 % Invalid Interpretation Code AO ADM SS Magnesium [Mass/Vol] 1.4 mg/dL Low 1.8 - 2 .4 mg/dL AO ADM SS 25-hydroxyvitamin D3 [Mass/Vol] 43.6 ng/mL Invalid Interpretation Code AO ADM SS Comment on above: Interpretive Data: I nterpretive Values Based on Total 25(OH) Vitamin D: Deficient <20 ng/mL Insufficient 20 - <30 ng/mL Sufficient 30-100 ng/mL Albumin BCP dye [Mass/Vol] 3.4 G/dL Low 3.5 - 5.0 G/dL AO ADM SS Albumin/Globulin [Mass ratio] 0.9 {ratio} Low 1.1 - 2.5 ratio AO ADM SS ALP [Catalytic activity/Vol] 129 U/L Normal 40 - 135 U/L AO ADM SS ALT With P-5'-P [Catalytic activity/Vol] 37 U/L Normal 14 - 59 U/L AO ADM SS AST With P-5'-P [Catalytic activity/Vol] 20 U/L Normal 10 - 40 U/L AO ADM SS Bilirubin [Mass/Vol] 0.6 mg/dL Normal 0.2 - 1 .0 mg/dL AO ADM SS Comment on above: Interpretive Data: U se of this assay is not recommended for patients undergoing treatment with eltrombopag due to the potential for falsely elevated results. C peptide [Mass/Vol] 2.84 ng/mL Normal 0.81 - 3.85 ng/mL AH ADM SS Calcium [Mass/Vol] 9.3 mg/dL Normal 8.4 - 10. 2 mg/dL AO ADM SS Chloride [Moles/Vol] 99 mmol/L Normal 98 - 10 7 mmol/L AO ADM SS CO2 [Moles/Vol] 28 mmol/L Normal 22 - 29 mmol/L AO AD M SS Creatinine [Mass/Vol] 0.91 mg/dL Normal 0.55 - 1.02 mg/dL AO ADM SS Comment on above: Interpretive Data: T esting performed on Siemens Dimension EXL analyzer using a modified kinetic Alexi technique. Electrolyte Balance 9.0 mEq/L Normal 4.0 - 15 .0 mEq/L AO ADM SS Free T3 [Mass/Vol] 3.36 pg/mL Normal 2.30 - 4. 00 pg/mL AO ADM SS Free T4 [Mass/Vol] 1.22 ng/dL Normal 0.76 - 1. 46 ng/dL AO ADM SS GFR/1.73 sq M.predicted among blacks MDRD (S/P/Bld) [Vol rate/Area] 88 ml/min/1.73sqm Invalid Interpretation Code AO Chemistry S Comment on above: Interpretive Data: GFR Population mean for , Non- Americans Ages 20-29 = 116 mL/min/1.73 sq.m. Ages 30-39 = 107 mL/min/1.73 sq.m. Ages 40-49 = 99 mL/min/1.73 sq.m. Ages 50-59 = 93 mL/min/1.73 sq.m. Ages 60-69 = 85 mL/min/1.73 sq.m. Ages 70+ = 75 mL/min/1.73 sq.m. Chronic Kidney Disease: Less than 60 mL/min/1.73 square meters End Stage Renal Disease: Less than 15 mL/min/1.73 square meters GFR/1.73 sq M.predicted among non-blacks MDRD (S/P/Bld) [Vol rate/Area] 73 ml/min/1.73sqm Invalid Interpretation Code AO Chemistry S Comment on above: Interpretive Data: GFR Population mean for , Non- Americans Ages 20-29 = 116 mL/min/1.73 sq.m. Ages 30-39 = 107 mL/min/1.73 sq.m. Ages 40-49 = 99 mL/min/1.73 sq.m. Ages 50-59 = 93 mL/min/1.73 sq.m. Ages 60-69 = 85 mL/min/1.73 sq.m. Ages 70+ = 75 mL/min/1.73 sq.m. Chronic Kidney Disease: Less than 60 mL/min/1.73 square meters End Stage Renal Disease: Less than 15 mL/min/1.73 square meters Globulin 3.7 G/dL Invalid Interpretation Code AO ADM SS Glucose [Mass/Vol] 100 mg/dL Invalid Interpretation Code AO Chemistry S Comment on above: Interpretive Data: E stimated average glucose (eAG) is a calculated value from Hemoglobin A1C and is community health representative of the average blood glucose level in the last 2-3 month period. Normal range: less than 114 mg/dL Glucose [Mass/Vol] 85 mg/dL Normal 70 - 105 mg/dL AO ADM SS HbA1c (Bld) [Mass fraction] 5.1 % Normal 4.3 - 6.4 % AO ADM SS Insulin Qn 18.82 munit/L Normal 2.60 - 37.60 mU/L AH ADM SS Potassium [Moles/Vol] 3.1 mmol/L Low 3.5 - 5.1 mmol/L AO ADM SS Protein [Mass/Vol] 7.1 G/dL Normal 6.4 - 8.2 G/dL AO ADM SS Sodium [Moles/Vol] 136 mmol/L Normal 136 - 145 mmol/L AO ADM SS TSH Qn 3.96 m[IU]/L High 0.36 - 3.74 mcIU/mL AO ADM SS Urea nitrogen [Mass/Vol] 5 mg/dL Low 7 - 18 mg/dL AO ADM SS Urea nitrogen/Creatinine [Mass ratio] 5 ratio Low 7 - 27 ratio AO ADM SS LABORATORYOrdered By: Britany Morales on 11-09-2023 Cholesterol [Mass/Vol] 217 mg/dL High 0 - 200 mg/dL AO ADM SS Comment on above: Interpretive Data: C holesterol Reference Interval: Less than 200 Desirable 200-239 Borderline high risk 240 and above High risk Cholesterol in HDL [Mass/Vol] 41 mg/dL Normal 40 - 60 mg/dL AO ADM SS Cholesterol in LDL [Mass/Vol] 131 mg/dL High 0 - 130 mg/dL AO ADM SS Triglyceride [Mass/Vol] 224 mg/dL High 0 - 150 mg/dL AO ADM SS Comment on above: Interpretive Data: T riglyceride Reference Interval: Less than 150 Normal 150-199 Borderline high risk 200-499 High risk 500 or higher Very high risk HISTORY PHYSICALon HISTORY PHYSICAL HNO ID: [id number] Author: CHE CABALLERO PA-C Service: ? Author Type: Physician Assistant Vice President Type: H&P Filed: 11/06/2023 14:30 Note Text: [facility] HISTORY AND PHYSICAL EXAMINATION SERVICE DATE: 11/06/2023 SERVICE TIME: 1:25 PM PRIMARY CARE PHYSICIAN: Michele Bell DO Assessment Patient has the following medical conditions which may affect ines-operative course: MICHELLE (obstructive sleep apnea) Assessment: can not tolerate CPAP Tobacco use Assessment: smoking and vaping Other chronic pain Assessment: follows with online suboxone provider, taking Zubsolv HLD (hyperlipidemia) Assessment: taking zetia, PCP following Opioid dependence with withdrawal (HCC) Assessment: taking Zubsolv Obesity (BMI 30-39.9) Assessment: BMI 37.37, taking tirzepatide Insulin resistance Assessment: follows with [employer], taking metformin Garber Activity Status Index: METS: Take care of self; that is eating, dressing, bathing, using the toilet (2.75 METs) DASI Score: 2.75 Patient denies any chest pain or undue shortness of breath with the above physical activity. Clinical Frailty Scale: 4. Apparently vulnerable STOP-Bang Score: STOP-Bang Score: (+MICHELLE- not using CPAP) ANESTHESIA FINDINGS: Intubation History: No history of difficult intubation Significant Anesthesia Considerations: none Airway History: No history of difficult airway I - PHYSICAL EVALUATION AIRWAY Patient intubated: No. Tracheostomy tube not present Mallampati: III. TM distance: >3 FB. Neck ROM: full ROM without neurological symptoms. Mouth opening: adequate. Short neck: yes. Thick neck: yes Lip Bite Test: II (TMJ) DENTAL Dental findings: missing tooth/teeth, broken tooth and chipped. II - ANESTHESIA PLAN Anesthetic plan additional comments: *PACC/TCI - anesthesia choice. Beta Elaine Monitoring Plan Post Procedure Analgesic Plan Prepared for Surgery: optimally prepared for surgery. CONSULTS: Patient does not require consults for optimization at this time Planned Anesthetic: anesthesia choice The Following Tests/Procedures Have Been Initiated: Orders Placed This Encounter Basic Metabolic Panel Standing Status: Future Standing Expiration Date: 02/05/2024 Complete Blood Count and Differential Standing Status: Future Standing Expiration Date: 02/05/2024 Type and Screen, 30 day Standing Status: Future Standing Expiration Date: 02/05/2024 Scheduling Instructions: A 30-day Type and Screen test has been ordered for you. This should be scheduled to be collected no earlier than 29 days before your scheduled procedure. If you receive blood products (red blood cells, platelets, plasma, cryoprecipitate) at any point before your procedure or are a female and become , please inform your provider. This test will be canceled, and a standard type and screen will need to be ordered to be collected within 3 days of your procedure. Order Specific Question: [facility] Planned Surgery or Procedure: Answer: [facility] Order Specific Question: Status of surgery/procedure: Answer: Scheduled Order Specific Question: Date of surgery/procedure: Answer: 11/23/2023 TIRZEPATIDE, WEIGHT LOSS, SUBCUTANEOUS Sig: Inject subcutaneously. This is a virtual visit using [employer] video visit. It required patient-provider interaction for the medical decision making as documented below. REASON FOR VISIT: Maria T Wynne is a 28 year old female who is scheduled for Procedure(s): LAPAROSCOPY FULGURATION OR EXCISION OF LESIONS OF THE OVARY PELVIC VISCERA OR PERITONEAL SURFACE BY ANY METHOD (N/A) LAPAROSCOPIC APPENDECTOMY ADULT (Right) at the request of Dr. Meme Vergara for consultation. My final recommendation will be communicated back to the requesting physician by way of shared medical record or letter. Subjective The patient has the following: COVID-19 Immunization Status Overdue - Covid-19 Vaccine ( season) Overdue since 11/11/2022 03/16/2021 Imm Admin: COVID-19 original vaccine, age 12+ yr, monovalent (PFIZER-BIONTECH - PURPLE TOP) 12/19/2020 Imm Admin: COVID-19 original vaccine, age 12+ yr, monovalent (PFIZER-BIONTECH - PURPLE TOP) CHIEF COMPLAINT: Chronic pelvic pain in female HPI: Maria T Wynne is a 28 year old female who is scheduled for LAPAROSCOPY FULGURATION OR EXCISION OF LESIONS OF THE OVARY PELVIC VISCERA OR PERITONEAL SURFACE BY ANY METHOD Right - LAPAROSCOPIC APPENDECTOMY ADULT - (Possible) at the request of Dr. Meme Vergara for 11/23/2023. She reports pelvic pain for years. Pain is worse the week before and during her menstrual cycle. She also reports very heavy menstrual cycle when off of control. This is a virtual visit. The visit was conducted using [employer] video visit. It required patient-provider interaction for the medical decision making as documented below. (more content not included)... Normal [facility] 36on 10-19-2023 36 Patient returned luis , available for a call back. Thank you. Normal [facility] 36 Left voicemail for patient to return call regarding Marie Larios PA-C's message. Please direct patient to office to allow staff to discuss results with patient. Normal [facility] 36 ----- Message from Marie Larios PA-C sent at 10/19/2023 10:51 AM EDT ----- Please inform patient of biopsy result: Skin, left medial heel: Consistent with surface of verruca plana. The spot we took off came back as a wart and no further treatment is needed at this time. Remind patient to return for any additional follow up as scheduled, including annual full skin exam, or call for sooner appointment if issues or concerns arise. Normal [facility] SHS HCG ( test) Ql (U)o n 10-16-2023 Beta HCG ( test) Ql (U) [id number] [facility] [employer] Interpretation and review of laboratory results Normal [facility] [employer] NEGATIVE QC Pass [facility] Health POSITIVE QC Pass [facility] [employer] Preg Test, Ur Negative Negative [facility] Office Visiton 10-16-2023 Follow-up visit [id number] Mouna Wynne 1995 F Date Provider Department Center 10/16/2023 [facility] None No family history on file Level of Service:53398 [place] OFFICE/OUTPATIENT ESTABLISHED MOD MDM 30 MIN (25) Reason for Visit and Comments: Acne [[id number]] - (LMS) Normal [facility] Progress Noteon 10-16-2023 Progress Note DATE OF SERVICE: 10/16/2023 PATIENT NAME: Maria T Wynne : 1995 AGE: 28 y.o. CLINIC NUMBER: [id number] Visit type: Established patient Chief Complaint Patient presents with Acne (LMS) Subjective HISTORY OF PRESENT ILLNESS: This is a 28 y.o. female who presents for evaluation of Acne; last seen 08/01/22. Patient completed 4 months of Isotretinoin at that time. Pt was prescribed Aletha every day and Tretinoin 0.025% cream at bedtime. Pt is interested in re-starting Isotretinoin today. Spot on L inner foot x3 yrs. Pt states the lesion is itchy. Pt states she has the lesions vaginally and they keep testing the lesions and they keep getting 2 different answers, and the spot on the foot is the same, so she would like this biopsied today. Patient states different answers are causing her anxiety. Are you , trying to become or ? No History of pacemaker/ defibrillator? No History of HIV/ Hep C? Yes Hep C, treated Allergies to Lidocaine, Epinephrine, Latex or Adhesive? No Review of Systems Orders Placed This Encounter Medications tretinoin (Retin-A) 0.1 % cream Sig: Apply pea size amount to entire face M, W, F at bedtime and increase to every night as skin tolerates Dispense: 90 g Refill: 1 2 tubes for a large surface area. There were no vitals filed for this visit. PHYSICAL EXAM GENERAL APPEARANCE:Alert & oriented x3, pleasant. Well developed, well nourished. PSYCH: appropriate mood and affect DERMATOLOGY: (all measurements are in cm, unless otherwise noted) 1. Neoplasm of uncertain behavior of skin Left Medial Heel 2 mm flesh toned papule Skin Biopsy Type of biopsy: tangential Informed consent: discussed and consent obtained Timeout: patient name, date of , surgical site, and procedure verified Anesthesia: the lesion was anesthetized in a standard fashion Anesthetic: 1% lidocaine w/ epinephrine 1-100,000 buffered w/ 8.4% NaHCO3 Instrument used: DermaBlade Hemostasis achieved with: electrodesiccation Outcome: patient tolerated procedure well Post-procedure details: wound care instructions given Specimen A - Tissue exam Differential Diagnosis: Traumatized nevus vs Traumatized SK vs Wart vs Other Check Margins: No Biopsy recommended. Patient expresses understanding and is in agreement with the plan. Biopsy (x1) obtained today. Patient educated that we will call with the biopsy results within 2 weeks. Care instructions reviewed and written instructions provided to patient. 2. Acne vulgaris Head - Anterior (Face) Scattered acneiform papules [x]Chronic []Acute []Stable [x]Flaring/Exacerbatio n Educated and reassured. Treatment options, risks, benefits, and expectations reviewed. Patient requested stronger Rx tretinoin until she receives Rx for Isotretinoin. She also requested 2 tubes for a larger surface area. Start: - Tretinoin 0.01% cream- Apply pea size amount to entire face M, W, F at bedtime and increase to every night as skin tolerates Patient was inactive in [employer] and needed to be re-registered today. Patient will need to wait 30 days til she can receive her next Rx. Related Medications drospirenone-ethinyl estradiol (ALETHA) 3-0.02 MG tablet Take 1 tablet by mouth daily. tretinoin (Retin-A) 0.1 % cream Apply pea size amount to entire face M, W, F at bedtime and increase to every night as skin tolerates 3. Encounter for long-term (current) use of high-risk medication Patient requested urine preg slip be given to her prior ti next appt. Patient advised this test needs to be done at a lab and needs to be done the day of her scheduled visit with us or after. Related Procedures hCG, urine, qualitative 4. examination or test, negative result In office urine screening done today to re-register patient in [facility]. Related Procedures POCT , urine manually resulted Follow up in about 1 month (around 11/17/2023) for Iso START f/u. Marie Larios PA-C 10/16/23 3:25 PM [facility] Skin Biopsyon 10-16-2023 Type of biopsy: tangential Informed consent: discussed and consent obtained Timeout: patient name, date of , surgical site, and procedure verified Anesthesia: the lesion was anesthetized in a standard fashion Anesthetic: 1% lidocaine w/ epinephrine 1-100,000 buffered w/ 8.4% NaHCO3 Instrument used: DermaBlade Hemostasis achieved with: electrodesiccation Outcome: patient tolerated procedure well Post-procedure details: wound care instructions given [facility] 36on 09-20-2023 36 Patient called back and was scheduled on 10/16/23 at 1340 with Marie Larios PA-C. [facility] 36 Left voicemail for patient to return call to reschedule their upcoming appointment on 09/25/23 per her request. Sent [employer] message to patient as well with the next few appointment dates and times. [facility] [id number] 08-31-2023 [id number] Discussed with Marie. [facility] 36on 08-30-2023 36 Patient scheduled 09/25/23 [facility] BACTERIAL VAGINOSIS NAATon 0 08-21-2023 Interpretation and review of laboratory results Normal [facility] Lactobacillus crispatus+gasseri+je nsenii + Gardnerella vaginalis + Atopobium vaginae rRNA DONNA+probe Ql (Vag fld) Negative Negative for bacterial vaginosis [facility] YANG/TRICHOMONAS NAATon 0 08-21-2023 C. glabrata RNA DONNA+probe Ql (Vag fld) Negative Negative for Yang glabrata [facility] Yang sp DNA DONNA+probe Ql (Vag fld) Negative Negative for Yang species [facility] Interpretation and review of laboratory results Normal [facility] T. vaginalis DNA DONNA+probe Ql (Unsp spec) Negative Negative for Trichomonas vaginalis by amplification [facility] 36on 08-15-2023 36 Spoke to patient regarding the MyChart message she sent and wanting to go back on accutane. Pt states she felt discouraged about stopping accutane at the last OV and states her boyfriend was never "encouraged" to stop accutane. Informed Pt of the differences between men on accutane and women on accutane. Patient thoroughly educated on the compliance piece of [email or web address], monthly tests, lab work, etc. Patient strongly believes she wants to finish out 2 months of accutane. Informed Pt in order to get her back into [email or web address] system she would need 2 negative tests 30 days apart. Pt states she will send negative test today and go from there. Pt verbalized understanding and declined further questions. [facility] 36 Patient returned luis l, available for a call back. Thank you. [facility] Progress Noteon 08-02-2023 Progress Note DATE OF SERVICE: 08/02/2023 PATIENT NAME: Maria T Wynne : 1995 AGE: 28 y.o. CLINIC NUMBER: [id number] Visit type: Established patient Chief Complaint Patient presents with Acne isotretinoin follow-up LV 07/03/23 with Jose Larios PA-C () Subjective HISTORY OF PRESENT ILLNESS: This is a 28 y.o. female who presents for F/u-acne; last seen 07/03/23. Unchagned since last visit. Patient is currently on isotretinoin 40 BID x 4 month. Start date 03/16/23. Patient admits new breakouts around her period still. Interim History: Tolerating medication well. Patient does complain of dry lips. Patient states she did not use the triamcinolone ointment for her lips because she was not comfortable using something for her body on her mouth. Patient does not complain of nosebleeds. The patient denies headaches, visual changes, photosensitivity, muscle/joint pains, fatigue, nausea/vomiting, diarrhea, abdominal pain, rectal bleeding, hair loss, and mood changes including: depression, increased feelings of anger, and suicidal ideations. [email or web address] # [id number] Pt two forms of contraception are OCP and Male latex condoms. Date of last labs: 07/01/23. Labs normal to date 07/01/23. Patient also is follow up on atopic derm. Currently treating with dupixent. No improvement. Patient is still getting rashes and has itching. Are you , trying to become or ? No History of pacemaker/ defibrillator? No History of HIV/ Hep C? Yes Hep C, treated Allergies to Lidocaine, Epinephrine, Latex or Adhesive? No Review of Systems Orders Placed This Encounter Medications drospirenone-ethinyl estradiol (ALETHA) 3-0.02 MG tablet Sig: Take 1 tablet by mouth daily. Dispense: 28 tablet Refill: 12 tretinoin (Retin-A) 0.025 % cream Sig: Apply pea size amount to entire face M, W, F at bedtime and increase to every night as skin tolerates Dispense: 45 g Refill: 11 There were no vitals filed for this visit. PHYSICAL EXAM GENERAL APPEARANCE:?Alert & oriented x3, pleasant. Well developed, well nourished. PSYCH: appropriate mood and affect DERMATOLOGY: (all measurements are in cm, unless otherwise noted) 1. Acne vulgaris Head - Anterior (Face) Scattered acneiform papules [x]Chronic []Acute []Stable [x]Flaring/Exacerbatio n Educated and reassured. Treatment options, risks, benefits, and expectations reviewed. Patient is flaring around her period. Does not feel like her skin has improved from accutane. Ok to stop accutane at this point since patient isn't seeing any results. Stop: Accutane Start: - Aletha: Take 1 tablet by mouth daily. (*switching BC) - Tretinoin 0.025%: Apply pea size amount to entire face M, W, F at bedtime and increase to every night as skin tolerates Related Medications drospirenone-ethinyl estradiol (ALETHA) 3-0.02 MG tablet Take 1 tablet by mouth daily. tretinoin (Retin-A) 0.025 % cream Apply pea size amount to entire face M, W, F at bedtime and increase to every night as skin tolerates 2. Encounter for long-term current use of high risk medication 3. Other atopic dermatitis [x]Chronic []Acute []Stable [x]Flaring/Exacerbatio n Educated and reassured. Treatment options, risks, benefits, and expectations reviewed. Patient does not feel dupixent is helping with itching and rashes. Patient agreed to stop dupixent. May consider repeat biopsy in 2-3 months if rash persists. Stop: - Dupixent Patient should try to avoid triggers. Factors that are known to exacerbate atopic dermatitis include stress, inappropriate bathing habits (eg: prolonged or hot showers), infection, irritants (eg: detergents), sweating, and environmental allergens. Appropriate skin care is critical. Gentle non-soap cleansers should be utilized. The liberal use of bland emollients is essential. These products should be fragrance and dye free. Related Medications tacrolimus (Protopic) 0.1 % ointment Apply to affected areas of eczema twice daily. triamcinolone (Kenalog) 0.1 % cream Apply to affected areas BID x 2 weeks Stop using when clear. Repeat as needed for flares. Do not use on face, armpits Follow up in about 3 months (around 11/02/2023). Marie Larios PA-C 08/02/23 10:22 AM Normal [facility] Telephone Encounteron 2023 [employer] Authentication Interface Message Text Situation: Speak With Provider Background: Pt calling in to advise she was told to see an Traffic Routing Engineer at [facility] to verify if she can have crowns done. Pt states [facility] does not have any openings until late Feb. Pt states she would like provider to update her on where she can go sooner or what alternative can be done to assist because she is in pain and cannot wait several months to be seen. Pt would like office to contact at earliest convenience to discuss. Assessment: Please assist Recommendation: Pt can be reached at Phone numbers Msg sent to [facility] 07/21/23 Normal [facility] [employer] [facility] Progress Noteson 07-20-2023 [employer] Authentication Interface Message Text LIMITED EXAM Patient presents for Scheduled appointment with a CC I wants to have all my teeth crowned Reviewed patient's medical history. Patient has a history of: No significant medical history. N/C per pt. No contraindications, patient is ready for treatment. Clinical exam was completed. Clinical Exam Finding(s): teeth has significant tooth structure lost with decay noted Radiographs taken today were: 6 PAs Radiographic Findings: Moderate decay, periapical lesion and over extended root canal fredy percha Discussed the medical necessity of the problem with the patient. Patient consented to treatment today. NOTE: pt referred to ambreen chapito to evaluate the root canal treatment before doing the crowns pt understood and agreed Next Visit: Follow-up Normal [facility] [id number] 07-11-2023 [id number] Refill request received for clobetasol scalp solution. Last filled 03/08/[address] Hanley. Patient last seen 05/30/23 by Marie Larios PA-C. Patient does not have a follow up appointment scheduled. Normal [facility] 36on 07-03-2023 36 Saw patient today virtually. She states her PCP is handling this and is taking K+ supplements. Normal [facility] 36 Lab results received and scanned into patient chart - please see media tab. Normal [facility] Progress Noteon 07-03-2023 Progress Note DATE OF SERVICE: 07/03/2023 PATIENT NAME: Maria T Wynne : 1995 AGE: 28 y.o. CLINIC NUMBER: [id number] 7:44 AM Chief Complaint Patient presents with Acne EPIFANIO 05/30/23 w/ Marie Larios PA-C () Verbal consent was received from the patient/parent to do telemedicine/ virtual visit. Subjective Maria T Wynne is a 28 y.o. who presents on the telephone for a remote visit (as recommended by the [facility] COVID-19 pandemic guidelines). Patient is currently on isotretinoin 40 mg BID x 3 months. Start date 03/16/23. Patient states she hasn't noticed much of a difference in her skin. She wants to complete the full course of isotretinoin. Interim History: Tolerating medication well. Patient does complain of dry lips. Treated with Aquaphor. Patient would like a script sent in today. Patient does complain of occasional nosebleeds. Admits visual changes, photosensitivity. Patient states she has always had problems with her visual and does not believe it is related to Accutane. The patient denies headaches, muscle/joint pains, fatigue, nausea/vomiting, diarrhea, abdominal pain, rectal bleeding, hair loss, and mood changes including: depression, increased feelings of anger, and suicidal ideations. [facility] # [id number] Pt two forms of contraception are OCP and Male latex condoms. Labs normal to date 07/01/23. Negative HCG Allergies Allergen Reactions Lubiprostone Rash Penicillins Hives, Rash and Other Other reaction(s): Other (See Comments), Unknown Patient states "she gets everything" Ciprofloxacin Hcl Other reaction(s): GI Upset Clindamycin Other reaction(s): Intolerance Her whole body felt hot and she had abdominal pain Doxycycline GI intolerance, Nausea And Vomiting and Other Other reaction(s): GI Upset, Unknown Metronidazole GI intolerance and Nausea And Vomiting Other reaction(s): GI Upset Nausea. Able to tolerate with anti-emetics Nausea Naproxen Other reaction(s): GI Upset Headache/GI upset Other Sulfa Antibiotics Other reaction(s): Other: See Comments It is like the flu x 10" Sulfamethoxazole-Trime thoprim Nausea And Vomiting Other reaction(s): Other: See Comments Tramadol Other reaction(s): Other: See Comments Headache seizure Nickel Rash PMH, allergies, and social history reviewed and updated as appropriate Medication list reviewed/updated Allergies reviewed/updated Problem list reviewed/updated Patient requests medication refills, see below for orders. Patient was seen today via Telehealth by agreement and consent. I used the following Telehealth technology: Audio and video capabilities. Patient location: Patient Location: Home. This patient encounter is appropriate and reasonable under the circumstances: transportation issues . The patient has been advised of the potential risks and limitations of this mode of treatment (including but not limited to the absence of in-person examination) and has agreed to be treated in a remote fashion in spite of them. Any and all of the patient's/patient's family's questions on this issue have been answered and I have made no promises or guarantees to the patient. The patient has also been advised to contact this office for worsening conditions or problems, and seek emergency medical treatment and/or call 911 if the patient deems either necessary. The patient stated that they are currently in the [facility]. If the patient is a minor, permission has been obtained by the parent or guardian for the patient to receive medical care at this visit. 1. Cheilitis Lips Dry chapped lips [x]Chronic []Acute []Stable [x]Flaring/Exacerbatio n Secondary to isotretinoin therapy. Educated and reassured. Treatment options, risks, benefits, and expectations reviewed. Start: -triamcinolone ointment: apply to lips BID x 5-7 days then prn flares. Risks associated with ferry terminal agent topical steroid use reviewed in detail. Related Medications triamcinolone (Kenalog) 0.1 % ointment apply to lips BID x 5-7 days then prn flares. 2. Acne vulgaris Head - Anterior (Face) Scattered acneiform papules [x]Chronic []Acute []Stable [x]Flaring/Exacerbatio n Educated and reassured. Treatment options, risks, benefits, and expectations reviewed. Stable on Isotretinoin. Patient has not noticed much improvement. She would like to finish 5 month course. Patient to start month 4. Patient currently not at goal. Patient to continue on Isotretinoin dose 40 mg BID. Target dose (0.5-1.0 mg/ kg/day or 120-150mg/kg total): 10,032-12,540 mg Dose to date: mg x days= 7,200 mg Pt iPledge ID# [id number]. Pt two forms of contraception are OCP and Male latex condoms. HCG negative (in media tab) Reviewed with patient the importance of calling office to inform staff of when and where labs are drawn if ordered. Pt advised that if labs drawn in any location other than in-house lab, results are not autom (more content not included)... Normal [facility] 36on 07-01-2023 36 S: reliability technicians/[facility] spoke with [facility] nurse regarding urgent /critical lab. Potassium level reported 2.5 (Normal level 2.5-5.1) per the laborer laboratory. B: Onset of symptoms/concern critical lab notification Per patient was told to go lab for these orders. Yesterday or Today. States she is on daily KCL 20 meq take daily for the diuretic replacement Hydrochlorothiazide. States she had this lab work was required for a blood work test to continue on her prescribed Claravis Isotretinoin (Accutane) 40 mg capsules. A: Labs were ordered By Charo Larios 04/24/23 but was told to have it drawn this weekend. K+ is critical at 2.5 (3.5-5.1) Her PCP is Dr.. Canelo Bell ([place] location) R: Paging urgently Dr Radha Hanley for the critical K+ 2.5 Dr. Hanley advised she will need to follow up with her primary care physician if over the weekend any palpitations, chest pain, shortness of breath will need to go to the Emergency Department. Also advised to add banana and other foods high in potassium for this critical low. Per Dr Hanley, advised to route to Dr Chavez and also Aretha Larios. Notify patient. 20:04 CAC RN calling to notify of the low Potasium. And Dr Chavez directives. Patient understands care advice. Pt. Has noticed more legs cramps at evening time No further needs at this time. Patient instructed to call back with new or worsening symptoms. Reason for Disposition Lab or radiology calling with CRITICAL test results Protocols used: PCP Call - No [id number] Normal [facility] 36on 06-07-2023 36 Medication: Dupixent 300mg/2ml Pen Injector Dosing Schedule: 300mg once every other week Prior Authorization: Submitted date: 06-07-23 [place] reference #:[id number] Approval dates: 06-07-2023-06-05-2024 Total Copay: $ 0 [facility] SALCTon 06-04-2023 Cortisol Saliva 0.079 UG/DL Normal [facility] ([place]) Comment on above: Result Comment: This test was developed and its performance characteristics determined by [facility]. It has not been cleared or approved by the Food and Drug Administration. Reference Range: Children and Adults: 8:00a.m.: 0.025 - 0.600 Noon: <0.010 - 0.330 4:00p.m.: 0.010 - 0.200 Bedtime (9:00p.m.-Midnight): <0.010 - 0.090 Performed At: [facility] [address] [place] [id number] Wilfred Muse MD Ph:[phone] Performed By: #### C BC, ANEU, ADIFF, BMP, GFR #### [address] [address] [place] 06-02-2023 TSI <0.10 Normal 0.00-0.55 [facility] ([place]) Comment on above: Result Comment: Perf ormed At: [facility] [id number] Dillon Arguelles MD Ph:[phone] Performed By: #### C BC, ANEU, ADIFF, BMP, GFR #### [address] [address] .Thyroglobulin by TRISTON [id number] on 05-31-2023 Thyroglob TRISTON 9.1 ng/mL Normal 1.5-38.5 [facility] ([place]) Comment on above: Result Comment: According to the National Academy of Clinical Biochemistry, the reference interval for Thyroglobulin (TG) should be related to euthyroid patients and not for patients who underwent thyroidectomy. TG reference intervals for these patients depend on the residual mass of the thyroid tissue left after surgery. Establishing a post-operative baseline is recommended. The assay limit of quantitation is 0.1 ng/mL Thyroglobulin measured by Erik Newport Immunometric Assay Performed At: [facility] [place] [id number] [place], [place] [id number] Wendy Jimenez PhD Ph:[phone] Performed By: #### C BC, ANEU, ADIFF, BMP, GFR #### [place] [address] [id number] 05-31-2023 ACTH 25.0 pg/mL Normal 7.2-63.3 [facility] ([place]) Comment on above: Result Comment: ACTH reference interval for samples collected between 7 and 10 AM. Performed At: [facility] [address] [place], [place] [id number] Wendy Jimenez PhD Ph:[phone] Performed By: #### C BC, ANEU, ADIFF, BMP, GFR #### [place] [address]137 CORTon 05-31-2023 Cortisol Level 1.0 mcg/dL Normal [facility] ([place]) Comment on above: Result Comment: Elsy isol AM Reference Range 6.5-26.0 mcg/dL Cortisol PM Reference Range 3.5-15.0 mcg/dL Performed By: #### C BC, ANEU, ADIFF, BMP, GFR #### [place] [address] LABORATORYOrdered By: SYSTEM SYSTEM on 05-31-2023 Cortisol [Mass/Vol] 1.0 ug/dL Invalid Interpretation Code AH ADM SS Comment on above: Interpretive Data: C ortisol AM Reference Range 6.5-26.0 mcg/dL Cortisol PM Reference Range 3.5-15.0 mcg/dL THYRORFon 05-31-2023 Thyroglob Ab <1.0 Normal 0.0-0.9 [facility] ([place]) Comment on above: Result Comment: Thyr oglobulin Antibody measured by Erik [employer] Method[employer] It should be noted that the presence of thyroglobulin antibodies may not be pathogenic nor diagnostic, especially at very low levels. The assay improvement analyst has found that four percent of individuals without evidence of thyroid disease or autoimmunity will have positive TgAb levels up to 4 IU/mL. Performed At: [address] [id number] Wendy Jimenez PhD Ph:[phone] Performed By: #### C BC, ANEU, ADIFF, BMP, GFR #### [place] [address] .Auto Diffon 05-30-2023 Basophil, Absolute 0.0 10 3/mcL Normal 0.0-0.2 [facility] ([place]) Comment on above: Performed By: #### F E, IBC, GFR, 402425, 621712, ADIFF, FERR, LIPID, CMP, [id number], TSH, 905926, MORPH, CBC, VIDH, FT3, ANEU, FT4 ####[place] [address]#### CPEP, INSLN, MCRSO, ELSY ####[address] [address] Basophils/100 WBC (Bld) 0.4 % Normal 0.0-2.5 [facility] ([place]) Comment on above: Performed By: #### F E, IBC, GFR, 193294, 661137, ADIFF, FERR, LIPID, CMP, 517337, TSH, 529695, MORPH, CBC, VIDH, FT3, ANEU, FT4 ####[place] [address]#### CPEP, INSLN, MCRSO, ELSY ####[address] [address] Eosinophil, Absolute 0.1 10 3/mcL Normal 0.0-0.4 [facility] ([place]) Comment on above: Performed By: #### F E, IBC, GFR, 895361, 304894, ADIFF, FERR, LIPID, CMP, 620265, TSH, 464275, MORPH, CBC, VIDH, FT3, ANEU, FT4 ####[place] [address]#### CPEP, INSLN, MCRSO, ELSY ####[address] [address] Eosinophils/100 WBC (Bld) 1.4 % Normal 0.0-7.0 [facility] ([place]) Comment on above: Performed By: #### F E, IBC, GFR, 419011, 920826, ADIFF, FERR, LIPID, CMP, 670557, TSH, 490854, MORPH, CBC, VIDH, FT3, ANEU, FT4 ####[place] [address]#### CPEP, INSLN, MCRSO, ELSY ####[address] [address] Lymphocyte, Absolute 3.7 10 3/mcL Normal 0.8-3.9 [facility] ([place]) Comment on above: Performed By: #### F E, IBC, GFR, 358318, 714746, ADIFF, FERR, LIPID, CMP, 769420, TSH, 946636, MORPH, CBC, VIDH, FT3, ANEU, FT4 ####[place] [address]#### CPEP, INSLN, MCRSO, ELSY ####[address] [address] Lymphocytes/100 WBC (Bld) 36.4 % Normal 10.0-50.0 [facility] ([place]) Comment on above: Performed By: #### F E, IBC, GFR, 592350, 868986, ADIFF, FERR, LIPID, CMP, 409361, TSH, 595660, MORPH, CBC, VIDH, FT3, ANEU, FT4 ####[place] [address]#### CPEP, INSLN, MCRSO, ELSY ####[address] [address] Monocyte, Absolute 0.6 10 3/mcL Normal 0.2-1.0 [facility] ([place]) Comment on above: Performed By: #### F E, IBC, GFR, 257878, 341278, ADIFF, FERR, LIPID, CMP, 873405, TSH, 951408, MORPH, CBC, VIDH, FT3, ANEU, FT4 ####[place] [address]#### CPEP, INSLN, MCRSO, ELSY ####[address] [address] Monocytes/100 WBC (Bld) 5.6 % Normal 1.7-13.0 [facility] ([place]) Comment on above: Performed By: #### F E, IBC, GFR, 253521, 949129, ADIFF, FERR, LIPID, CMP, 534066, TSH, 578580, MORPH, CBC, VIDH, FT3, ANEU, FT4 ####[place] [address]#### CPEP, INSLN, MCRSO, ELSY ####[address] [address] Neutrophils/100 WBC (Bld) 56.2 % Normal 37.0-80.0 [facility] ([place]) Comment on above: Performed By: #### F E, IBC, GFR, 726508, 386701, ADIFF, FERR, LIPID, CMP, 664655, TSH, 635145, MORPH, CBC, VIDH, FT3, ANEU, FT4 ####[facility] [place], [place] [address]#### CPEP, INSLN, MCRSO, ELSY ####[address] [address] .GFRon 05-30-2023 GFR Non- 79 ml/min/1.73sqm Normal [facility] ([place]) Comment on above: Result Comment: GFR Population mean for , [...] 15 mL/min/1.73 square meters Performed By: #### C BC, ANEU, ADIFF, BMP, GFR #### [place] [address] [address] GFR 95 ml/min/1.73sqm Normal [facility] ([place]) Comment on above: Result Comment: GFR Population mean for , [...] 15 mL/min/1.73 square meters Performed By: #### C BC, ANEU, ADIFF, BMP, GFR #### [address] [address] .Morphon 05-30-2023 Platelet Estimate Normal Normal [facility] ([place]) Comment on above: Performed By: #### F E, IBC, GFR, 585178, 629490, ADIFF, FERR, LIPID, CMP, 007721, TSH, 399336, MORPH, CBC, VIDH, FT3, ANEU, FT4 ####[address] [address]#### CPEP, INSLN, MCRSO, ELSY ####[place] [address] .NEUABSon 05-30-2023 Neutrophil, Absolute 5.7 10 3/mcL Normal 2.9-6.2 [facility] ([place]) Comment on above: Performed By: #### F E, IBC, GFR, 204881, 177768, ADIFF, FERR, LIPID, CMP, 405940, TSH, 728849, MORPH, CBC, VIDH, FT3, ANEU, FT4 ####[place] [address]#### CPEP, INSLN, MCRSO, ELSY ####[place] [address] CBCon 05-30-2023 Erythrocyte distribution width (RBC) [Ratio] 13.3 % Normal 11.5-14.5 [facility] ([place]) Comment on above: Performed By: #### F E, IBC, GFR, 164076, 915451, ADIFF, FERR, LIPID, CMP, 661824, TSH, 413757, MORPH, CBC, VIDH, FT3, ANEU, FT4 #### [address] [address] #### CPEP, INSLN, MCRSO, ELSY #### [place] [address] Hematocrit (Bld) [Volume fraction] 38.7 % Normal 37.0-47.0 [facility] ([place]) Comment on above: Performed By: #### F E, IBC, GFR, 234472, 704267, ADIFF, FERR, LIPID, CMP, 356558, TSH, 238482, MORPH, CBC, VIDH, FT3, ANEU, FT4 #### [address] [address] #### CPEP, INSLN, MCRSO, ELSY #### [address] [address] Hgb 13.7 G/dL Normal 12.0-16.0 [facility] ([place]) Comment on above: Performed By: #### F E, IBC, GFR, 632708, 860298, ADIFF, FERR, LIPID, CMP, 374408, TSH, 665875, MORPH, CBC, VIDH, FT3, ANEU, FT4 #### [place] [address] #### CPEP, INSLN, MCRSO, ELSY #### [place] [address] MCH (RBC) [Entitic mass] 27.3 pg Normal 27.0-31.2 [facility] ([place]) Comment on above: Performed By: #### F E, IBC, GFR, 352143, 946537, ADIFF, FERR, LIPID, CMP, 968024, TSH, 516329, MORPH, CBC, VIDH, FT3, ANEU, FT4 #### [address] [address] #### CPEP, INSLN, MCRSO, ELSY #### [place] [address] MCHC 35.5 G/dL Normal 33.0-37.0 [facility] ([place]) Comment on above: Performed By: #### F E, IBC, GFR, 067959, 187789, ADIFF, FERR, LIPID, CMP, 737587, TSH, 057574, MORPH, CBC, VIDH, FT3, ANEU, FT4 #### [address] [address] #### CPEP, INSLN, MCRSO, ELSY #### [place] [address] MCV (RBC) [Entitic vol] 76.8 fL Low 80.0-94.0 [facility] ([place]) Comment on above: Performed By: #### F E, IBC, GFR, 259283, 965953, ADIFF, FERR, LIPID, CMP, 891108, TSH, 232825, MORPH, CBC, VIDH, FT3, ANEU, FT4 #### [address] [address] #### CPEP, INSLN, MCRSO, ELSY #### [address] [address] Platelet 388 10 3/mcL Normal 130-400 [facility] ([place]) Comment on above: Performed By: #### F E, IBC, GFR, 638587, 168493, ADIFF, FERR, LIPID, CMP, 327892, TSH, 104009, MORPH, CBC, VIDH, FT3, ANEU, FT4 #### [place] [address] #### CPEP, INSLN, MCRSO, ELSY #### [place] [address] Platelet mean volume (Bld) [Entitic vol] 7.2 fL Low 7.4-10.4 [facility] ([place]) Comment on above: Performed By: #### F E, IBC, GFR, 821694, 923169, ADIFF, FERR, LIPID, CMP, 516734, TSH, 828151, MORPH, CBC, VIDH, FT3, ANEU, FT4 #### [place] [address] #### CPEP, INSLN, MCRSO, ELSY #### [address] [address] RBC 5.04 10 6/mcL Normal 4.20-5.40 [facility] ([place]) Comment on above: Performed By: #### F E, IBC, GFR, 605251, 175799, ADIFF, FERR, LIPID, CMP, 228564, TSH, 603114, MORPH, CBC, VIDH, FT3, ANEU, FT4 #### [place] [address] #### CPEP, INSLN, MCRSO, ELSY #### [address] [address] WBC 10.1 10 3/mcL Normal 4.6-10.8 [facility] ([place]) Comment on above: Performed By: #### F E, IBC, GFR, 380354, 700274, ADIFF, FERR, LIPID, CMP, 772234, TSH, 259444, MORPH, CBC, VIDH, FT3, ANEU, FT4 #### [address] [address] #### CPEP, INSLN, MCRSO, ELSY #### [place] [address] CMPon 05-30-2023 Albumin Level 3.2 G/dL Low 3.5-5.0 [facility] ([place]) Comment on above: Performed By: #### F E, IBC, GFR, 689157, 643806, ADIFF, FERR, LIPID, CMP, 281996, TSH, 035598, MORPH, CBC, VIDH, FT3, ANEU, FT4 ####[place] [address]#### CPEP, INSLN, MCRSO, ELSY ####[place] [address] Albumin/Globulin [Mass ratio] 0.8 {ratio} Low 1.1-2.5 [facility] ([place]) Comment on above: Performed By: #### F E, IBC, GFR, 289254, 501110, ADIFF, FERR, LIPID, CMP, 430769, TSH, 801716, MORPH, CBC, VIDH, FT3, ANEU, FT4 ####[place] [address]#### CPEP, INSLN, MCRSO, ELSY ####[address] [address] ALP [Catalytic activity/Vol] 103 U/L Normal 40-135 [facility] ([place]) Comment on above: Performed By: #### F E, IBC, GFR, 015652, 583597, ADIFF, FERR, LIPID, CMP, 306489, TSH, 424881, MORPH, CBC, VIDH, FT3, ANEU, FT4 ####[place] [address]#### CPEP, INSLN, MCRSO, ELSY ####[address] [address] ALT [Catalytic activity/Vol] 23 U/L Normal 14-59 [facility] ([place]) Comment on above: Performed By: #### F E, IBC, GFR, 187130, 688848, ADIFF, FERR, LIPID, CMP, 106617, TSH, 081766, MORPH, CBC, VIDH, FT3, ANEU, FT4 ####[place] [address]#### CPEP, INSLN, MCRSO, ELSY ####[place] [address] AST [Catalytic activity/Vol] 15 U/L Normal 10-40 [facility] ([place]) Comment on above: Performed By: #### F E, IBC, GFR, 242813, 541459, ADIFF, FERR, LIPID, CMP, 717684, TSH, 021136, MORPH, CBC, VIDH, FT3, ANEU, FT4 ####[place] [address]#### CPEP, INSLN, MCRSO, ELSY ####[place] [address] Bili Total 0.4 mg/dL Normal 0.2-1.0 [facility] ([place]) Comment on above: Result Comment: Use of this assay is not recommended for patients undergoing treatment with eltrombopag due to the potential for falsely elevated results. Performed By: #### F E, IBC, GFR, 772982, 922978, ADIFF, FERR, LIPID, CMP, [id number], TSH, 749309, MORPH, CBC, VIDH, FT3, ANEU, FT4 ####[place] [address]#### CPEP, INSLN, MCRSO, ELSY ####[address] [address] BUN/Creatinine Ratio 6 ratio Low 7-27 [facility] ([place]) Comment on above: Performed By: #### F E, IBC, GFR, 361066, 319234, ADIFF, FERR, LIPID, CMP, 821128, TSH, 547687, MORPH, CBC, VIDH, FT3, ANEU, FT4 ####[place] [address]#### CPEP, INSLN, MCRSO, ELSY ####[address] [address] Calcium [Mass/Vol] 9.0 mg/dL Normal 8.4-10.2 [facility] ([place]) Comment on above: Performed By: #### F E, IBC, GFR, 239306, 098500, ADIFF, FERR, LIPID, CMP, 296778, TSH, 602708, MORPH, CBC, VIDH, FT3, ANEU, FT4 ####[place] [address]#### CPEP, INSLN, MCRSO, ELSY ####[place] [address] Chloride [Moles/Vol] 98 mmol/L Normal 98-107 [facility] ([place]) Comment on above: Performed By: #### F E, IBC, GFR, 228363, 553003, ADIFF, FERR, LIPID, CMP, 296643, TSH, 469626, MORPH, CBC, VIDH, FT3, ANEU, FT4 ####[place] [address] [place] [address]#### CPEP, INSLN, MCRSO, ELSY ####[place] [address] CO2 [Moles/Vol] 28 mmol/L Normal 22-29 [facility] ([place]) Comment on above: Performed By: #### F E, IBC, GFR, 053742, 928696, ADIFF, FERR, LIPID, CMP, 441524, TSH, 741130, MORPH, CBC, VIDH, FT3, ANEU, FT4 ####[place] [address]#### CPEP, INSLN, MCRSO, ELSY ####[address] [address] Creatinine [Mass/Vol] 0.85 mg/dL Normal 0.55-1.02 [facility] ([place]) Comment on above: Performed By: #### F E, IBC, GFR, 056074, 174149, ADIFF, FERR, LIPID, CMP, 317001, TSH, 721317, MORPH, CBC, VIDH, FT3, ANEU, FT4 ####[place] [address]#### CPEP, INSLN, MCRSO, ELSY ####[place] [address] Electrolyte Balance 12.0 mEq/L Normal 4.0-15.0 [facility] ([place]) Comment on above: Performed By: #### F E, IBC, GFR, 879825, 180928, ADIFF, FERR, LIPID, CMP, 887543, TSH, 720710, MORPH, CBC, VIDH, FT3, ANEU, FT4 ####[place] [address]#### CPEP, INSLN, MCRSO, ELSY ####[place] [address] Globulin 4.0 G/dL Normal [facility] ([place]) Comment on above: Performed By: #### F E, IBC, GFR, 866318, 095465, ADIFF, FERR, LIPID, CMP, 956689, TSH, 969604, MORPH, CBC, VIDH, FT3, ANEU, FT4 ####[place] [address]#### CPEP, INSLN, MCRSO, ELSY ####[place] [address] Glucose [Mass/Vol] 148 mg/dL High 70-105 [facility] ([place]) Comment on above: Performed By: #### F E, IBC, GFR, 619567, 737368, ADIFF, FERR, LIPID, CMP, 106980, TSH, 375882, MORPH, CBC, VIDH, FT3, ANEU, FT4 ####[place] [address]#### CPEP, INSLN, MCRSO, ELSY ####[address] [address] Potassium [Moles/Vol] 2.9 mmol/L Low 3.5-5.1 [facility] ([place]) Comment on above: Performed By: #### F E, IBC, GFR, 000426, 875261, ADIFF, FERR, LIPID, CMP, 266158, TSH, 738165, MORPH, CBC, VIDH, FT3, ANEU, FT4 ####[place] [address]#### CPEP, INSLN, MCRSO, ELSY ####[address] [address] Sodium [Moles/Vol] 138 mmol/L Normal 136-145 [facility] ([place]) Comment on above: Performed By: #### F E, IBC, GFR, 983054, 423043, ADIFF, FERR, LIPID, CMP, 437253, TSH, 826222, MORPH, CBC, VIDH, FT3, ANEU, FT4 ####[place] [address]#### CPEP, INSLN, MCRSO, ELSY ####[address] [address] Total Protein 7.2 G/dL Normal 6.4-8.2 [facility] ([place]) Comment on above: Performed By: #### F E, IBC, GFR, 168100, 284404, ADIFF, FERR, LIPID, CMP, 727577, TSH, 930447, MORPH, CBC, VIDH, FT3, ANEU, FT4 ####[facility] [place] [address]#### CPEP, INSLN, MCRSO, ELSY ####[place] [address] Urea nitrogen [Mass/Vol] 5 mg/dL Low 7-18 [facility] ([place]) Comment on above: Performed By: #### F E, IBC, GFR, 834746, 230260, ADIFF, FERR, LIPID, CMP, 420025, TSH, 130738, MORPH, CBC, VIDH, FT3, ANEU, FT4 ####[place] [address]#### CPEP, INSLN, MCRSO, ELSY ####[place] [address] CORTon 05-30-2023 Cortisol Level 21.0 mcg/dL Normal [facility] ([place]) Comment on above: Result Comment: Elsy isol AM Reference Range 6.5-26.0 mcg/dL Cortisol PM Reference Range 3.5-15.0 mcg/dL Performed By: #### C BC, ANEU, ADIFF, BMP, GFR #### [address] [address] CPEPon 05-30-2023 C-Peptide 12.51 ng/mL High 0.81-3.85 [facility] ([place]) Comment on above: Performed By: #### C BC, ANEU, ADIFF, BMP, GFR #### [address] [address] FEon 05-30-2023 Iron [Mass/Vol] 44 ug/dL Low 50-170 [facility] ([place]) Comment on above: Performed By: #### F E, IBC, GFR, 471234, 955134, ADIFF, FERR, LIPID, CMP, 594995, TSH, 001165, MORPH, CBC, VIDH, FT3, ANEU, FT4 ####[address] [address]#### CPEP, INSLN, MCRSO, ELSY ####[place] [address] Jm 05-30-2023 Ferritin [Mass/Vol] 47.0 ng/mL Normal 8.0-252.0 [facility] ([place]) Comment on above: Performed By: #### F E, IBC, GFR, 060942, 586242, ADIFF, FERR, LIPID, CMP, 994934, TSH, 784811, MORPH, CBC, VIDH, FT3, ANEU, FT4 ####[place] [address]#### CPEP, INSLN, MCRSO, ELSY ####[address] [address] FT3on 05-30-2023 Free T3 [Mass/Vol] 3.64 pg/mL Normal 2.30-4.00 [facility] ([place]) Comment on above: Performed By: #### F E, IBC, GFR, 825549, 297573, ADIFF, FERR, LIPID, CMP, 816778, TSH, 894977, MORPH, CBC, VIDH, FT3, ANEU, FT4 ####[place] [address]#### CPEP, INSLN, MCRSO, ELSY ####[address] [address] FT4on 05-30-2023 Free T4 [Mass/Vol] 1.15 ng/dL Normal 0.76-1.46 [facility] ([place]) Comment on above: Performed By: #### F E, IBC, GFR, 800422, 895406, ADIFF, FERR, LIPID, CMP, 879975, TSH, 744353, MORPH, CBC, VIDH, FT3, ANEU, FT4 ####[place] [address]#### CPEP, INSLN, MCRSO, ELSY ####[address] [address] HCG ( test) Ql (U)o n 05-30-2023 Beta HCG ( test) Ql (U) [id number] [facility] Interpretation and review of laboratory results Normal [facility] NEGATIVE QC Pass [facility] POSITIVE QC Pass [facility] Preg Test, Ur Negative Negative [facility] Radiology Study observation (narrative) [facility] [employer] IBCon 05-30-2023 TIBC 321 mcg/dL Normal 250-450 [facility] ([place]) Comment on above: Performed By: #### C BC, ANEU, ADIFF, BMP, GFR #### [place] [address] [place], [place] [address] INSLNon 05-30-2023 Insulin 166.32 munit/L High 2.60-37.60 [facility] ([place]) Comment on above: Performed By: #### C BC, ANEU, ADIFF, BMP, GFR #### [place] [address] [place], [place] [address] LABORATORYOrdered By: SYSTEM SYSTEM on 05-30-2023 25-hydroxyvitamin D3 [Mass/Vol] 35.9 ng/mL Invalid Interpretation Code AO ADM SS Comment on above: Interpretive Data: I nterpretive Values Based on Total 25(OH) Vitamin D: Deficient <20 ng/mL Insufficient 20 - <30 ng/mL Sufficient 30-100 ng/mL Albumin BCP dye [Mass/Vol] 3.2 G/dL Low 3.5 - 5.0 G/dL AO ADM SS Albumin/Globulin [Mass ratio] 0.8 {ratio} Low 1.1 - 2.5 ratio AO ADM SS ALP [Catalytic activity/Vol] 103 U/L Normal 40 - 135 U/L AO ADM SS ALT With P-5'-P [Catalytic activity/Vol] 23 U/L Normal 14 - 59 U/L AO ADM SS AST With P-5'-P [Catalytic activity/Vol] 15 U/L Normal 10 - 40 U/L AO ADM SS Basophil, Absolute 0.0 103/mcL Normal 0.0 - 0.2 10^3/mcL AO Workflow SS Basophils/100 WBC (Bld) 0.4 % Normal 0.0 - 2.5 % AO Workflow SS Bilirubin [Mass/Vol] 0.4 mg/dL Normal 0.2 - 1 .0 mg/dL AO ADM SS Comment on above: Interpretive Data: U se of this assay is not recommended for patients undergoing treatment with eltrombopag due to the potential for falsely elevated results. C peptide [Mass/Vol] 12.51 ng/mL High 0.81 - 3.85 ng/mL AH ADM SS Calcium [Mass/Vol] 9.0 mg/dL Normal 8.4 - 10. 2 mg/dL AO ADM SS Chloride [Moles/Vol] 98 mmol/L Normal 98 - 10 7 mmol/L AO ADM SS CO2 [Moles/Vol] 28 mmol/L Normal 22 - 29 mmol/L AO AD M SS Cortisol [Mass/Vol] 21.0 ug/dL Invalid Interpretation Code AH ADM SS Comment on above: Interpretive Data: C ortisol AM Reference Range 6.5-26.0 mcg/dL Cortisol PM Reference Range 3.5-15.0 mcg/dL Creatinine [Mass/Vol] 0.85 mg/dL Normal 0.55 - 1.02 mg/dL AO ADM SS Electrolyte Balance 12.0 mEq/L Normal 4.0 - 15 .0 mEq/L AO ADM SS Eosinophil, Absolute 0.1 103/mcL Normal 0.0 - 0 .4 10^3/mcL AO Workflow SS Eosinophils/100 WBC (Bld) 1.4 % Normal 0.0 - 7.0 % AO Workflow SS Erythrocyte distribution width (RBC) [Ratio] 13.3 % Normal 11.5 - 14.5 % AO Workflow SS Ferritin [Mass/Vol] 47.0 ng/mL Normal 8.0 - 25 2.0 ng/mL AO ADM SS Free T3 [Mass/Vol] 3.64 pg/mL Normal 2.30 - 4. 00 pg/mL AO ADM SS Free T4 [Mass/Vol] 1.15 ng/dL Normal 0.76 - 1. 46 ng/dL AO ADM SS GFR/1.73 sq M.predicted among blacks MDRD (S/P/Bld) [Vol rate/Area] 95 ml/min/1.73sqm Invalid Interpretation Code AO Chemistry S Comment on above: Interpretive Data: GFR Population mean for , Non- Americans Ages 20-29 = 116 mL/min/1.73 sq.m. Ages 30-39 = 107 mL/min/1.73 sq.m. Ages 40-49 = 99 mL/min/1.73 sq.m. Ages 50-59 = 93 mL/min/1.73 sq.m. Ages 60-69 = 85 mL/min/1.73 sq.m. Ages 70+ = 75 mL/min/1.73 sq.m. Chronic Kidney Disease: Less than 60 mL/min/1.73 square meters End Stage Renal Disease: Less than 15 mL/min/1.73 square meters GFR/1.73 sq M.predicted among non-blacks MDRD (S/P/Bld) [Vol rate/Area] 79 ml/min/1.73sqm Invalid Interpretation Code AO Chemistry S Comment on above: Interpretive Data: GFR Population mean for , Non- Americans Ages 20-29 = 116 mL/min/1.73 sq.m. Ages 30-39 = 107 mL/min/1.73 sq.m. Ages 40-49 = 99 mL/min/1.73 sq.m. Ages 50-59 = 93 mL/min/1.73 sq.m. Ages 60-69 = 85 mL/min/1.73 sq.m. Ages 70+ = 75 mL/min/1.73 sq.m. Chronic Kidney Disease: Less than 60 mL/min/1.73 square meters End Stage Renal Disease: Less than 15 mL/min/1.73 square meters Globulin 4.0 G/dL Invalid Interpretation Code AO ADM SS Glucose [Mass/Vol] 148 mg/dL High 70 - 105 mg/dL AO ADM SS Hematocrit (Bld) [Volume fraction] 38.7 % Normal 37.0 - 47.0 % AO Workflow SS Hemoglobin (Bld) [Mass/Vol] 13.7 G/dL Normal 12.0 - 16.0 G/dL AO Workflow SS Insulin Qn 166.32 munit/L High 2.60 - 37.60 mU/L AH ADM SS Iron [Mass/Vol] 44 ug/dL Low 50 - 170 mcg/dL AO ADM SS Iron binding capacity [Mass/Vol] 321 mcg/dL Normal 250 - 450 mcg/dL AO ADM SS Lymphocyte, Absolute 3.7 103/mcL Normal 0.8 - 3 .9 10^3/mcL AO Workflow SS Lymphocytes/100 WBC (Bld) 36.4 % Normal 10.0 - 50.0 % AO Workflow SS MCH (RBC) [Entitic mass] 27.3 pg Normal 27.0 - 31.2 pg AO Workflow SS MCHC 35.5 G/dL Normal 33.0 - 37.0 G/dL AO Workflow SS MCV (RBC) [Entitic vol] 76.8 fL Low 80.0 - 94.0 fL AO Workflow SS Monocyte, Absolute 0.6 103/mcL Normal 0.2 - 1.0 10^3/mcL AO Workflow SS Monocytes/100 WBC (Bld) 5.6 % Normal 1.7 - 13.0 % AO Workflow SS Neutrophil, Absolute 5.7 103/mcL Normal 2.9 - 6 .2 10^3/mcL AO Workflow SS Neutrophils/100 WBC (Bld) 56.2 % Normal 37.0 - 80.0 % AO Workflow SS Platelet mean volume (Bld) [Entitic vol] 7.2 fL Low 7.4 - 10.4 fL AO Workflow SS Platelets (Bld) [#/Vol] 388 103/mcL Normal 130 - 400 10^3/mcL AO Workflow SS Potassium [Moles/Vol] 2.9 mmol/L Low 3.5 - 5.1 mmol/L AO ADM SS Protein [Mass/Vol] 7.2 G/dL Normal 6.4 - 8.2 G/dL AO ADM SS RBC (Bld) [#/Vol] 5.04 106/mcL Normal 4.20 - 5.4 0 10^6/mcL AO Workflow SS Sodium [Moles/Vol] 138 mmol/L Normal 136 - 145 mmol/L AO ADM SS TPO Ab IA Qn 54 unit/mL Normal 0 - 60 unit/mL AH ADM S S Comment on above: Result Comment: Resu lt Held - Last QC for aTPO on AH_AIM_1 was performed on 05/29/2023,10:42:55 Interpretive Data: * *Note - New Reference Range in effect 19 TSH Qn 4.22 m[IU]/L High 0.36 - 3.74 mcIU/mL AO ADM SS Urea nitrogen [Mass/Vol] 5 mg/dL Low 7 - 18 mg/dL AO ADM SS Urea nitrogen/Creatinine [Mass ratio] 6 ratio Low 7 - 27 ratio AO ADM SS WBC (Bld) [#/Vol] 10.1 103/mcL Normal 4.6 - 10.8 10^3/mcL AO Workflow SS LABORATORYOrdered By: Britany Morales on 05-30-2023 Cholesterol [Mass/Vol] 203 mg/dL High 0 - 200 mg/dL AO ADM SS Comment on above: Interpretive Data: C holesterol Reference Interval: Less than 200 Desirable 200-239 Borderline high risk 240 and above High risk Cholesterol in HDL [Mass/Vol] 38 mg/dL Low 40 - 60 mg/dL AO ADM SS Cholesterol in LDL [Mass/Vol] 122 mg/dL Normal 0 - 130 mg/dL AO ADM SS Triglyceride [Mass/Vol] 213 mg/dL High 0 - 150 mg/dL AO ADM SS Comment on above: Interpretive Data: T riglyceride Reference Interval: Less than 150 Normal 150-199 Borderline high risk 200-499 High risk 500 or higher Very high risk LABORATORYOrdered By: Ernestine Olivas on 05-30-2023 Platelet Estimate Normal (05/30/23 9:28 AM) Normal AO Hematology S LIPIDon 05-30-2023 Cholesterol [Mass/Vol] 203 mg/dL High 0-200 [facility] ([place]) Comment on above: Result Comment: Chol esterol Reference Interval: Less than 200 Desirable 200-239 Borderline high risk 240 and above High risk Performed By: #### C BC, ANEU, ADIFF, BMP, GFR #### [address] [address] Cholesterol in HDL [Mass/Vol] 38 mg/dL Low 40-60 [facility] ([place]) Comment on above: Performed By: #### C BC, ANEU, ADIFF, BMP, GFR #### [address] [address] Cholesterol in LDL [Mass/Vol] 122 mg/dL Normal 0-130 [facility] ([place]) Comment on above: Performed By: #### C BC, ANEU, ADIFF, BMP, GFR #### [address] [address] Triglyceride [Mass/Vol] 213 mg/dL High 0-150 [facility] ([place]) Comment on above: Result Comment: Trig lyceride Reference Interval: Less than 150 Normal 150-199 Borderline high risk 200-499 High risk 500 or higher Very high risk Performed By: #### C BC, ANEU, ADIFF, BMP, GFR #### [address] [address] Office Visiton 05-30-2023 Follow-up visit [id number] Mouna Wynne 1995 F Date Provider Department Center 05/30/2023 [facility]MARIE LARIOS [facility] None No family history on file Level of Service:75102 UT OFFICE/OUTPATIENT ESTABLISHED MOD MDM 30 MIN (25) Reason for Visit and Comments: Acne [[id number]] - LV 04/24/23 w/ Marie Larios PA-C () [facility] Progress Noteon 05-30-2023 Progress Note DATE OF SERVICE: 05/30/2023 PATIENT NAME: Maria T Wynne : 1995 AGE: 28 y.o. CLINIC NUMBER: [id number] Visit type: Established patient Chief Complaint Patient presents with Acne LV 04/24/23 w/ Marie Larios PA-C () Subjective HISTORY OF PRESENT ILLNESS: This is a 28 y.o. female who presents for F/u-acne; last seen 04/24/23. Unchanged since last visit. Patient is currently on isotretinoin 40 mg BID x 2 months month. Start date 03/16/23. C/o bumps around vaginal area x years. Admits itching. Denies bleeding and pain. Admits coming and going. Patient had them looked at by [employer] in the past and said they weren't anything. Interim History: Tolerating medication well. Patient does complain of dry lips. Patient does not complain of nosebleeds. The patient denies headaches, visual changes, photosensitivity, muscle/joint pains, fatigue, nausea/vomiting, diarrhea, abdominal pain, rectal bleeding, hair loss, and mood changes including: depression, increased feelings of anger, and suicidal ideations. [facility] # [id number] Pt two forms of contraception are OCP and Male latex condoms. Labs ordered 04/24/23. Reprinted for patient to have completed at outside lab. Patient never completed test last month so she was not able to roller picker rx. . Are you , trying to become or ? No History of pacemaker/ defibrillator? No History of HIV/ Hep C? No Allergies to Lidocaine, Epinephrine, Latex or Adhesive? No Review of Systems There were no vitals filed for this visit. PHYSICAL EXAM GENERAL APPEARANCE:?Alert & oriented x3, pleasant. Well developed, well nourished. PSYCH: appropriate mood and affect DERMATOLOGY: (all measurements are in cm, unless otherwise noted) 1. Acne vulgaris Head - Anterior (Face) Scattered acneiform papules [x]Chronic []Acute []Stable [x]Flaring/Exacerbatio n Educated and reassured. Treatment options, risks, benefits, and expectations reviewed. Improved on Isotretinoin. Patient currently not at goal. Target dose (0.5-1.0 mg/ kg/day or 120-150mg/kg total): 10,032-12,540 mg. Dose to date: mg x days= 2,400 mg Pt [email or web address] ID# [id number]. Pt two forms of contraception are OCP and Male latex condoms. HCG/ urine completed. Patient kicked out of [facility]. Never picked up last prescription. Never completed blood hcg test. Reviewed with patient the importance of calling office to inform staff of when and where labs are drawn if ordered. Pt advised that if labs drawn in any location other than in-house lab, results are not automatically sent to ordering provider. Educated that if office does not obtain labs within time sensitive window, patient may be discharged from [facility] and may have delay in picking up medication. Once labs are reviewed our office will call to inform Pt of the results, at that time Pt will need to log on to the [email or web address] system to answer the required questions. After that has been completed Pt will need to roller picker the prescription from the pharmacy. Reminded that the prescription expires 7 days from the date of the test. If experiencing nasal dryness, recommend that patient use a humidifier in bedroom while sleeping, as well as use normal saline solution, and Vaseline inside the nose to help ease the dryness which may cause nosebleeds. Recommend aquaphor, vaseline, or other dye/fragrance free lip balms to the lips for dryness and avoid licking the lips. Lubricating eye drops like Genteal for dry eyes, avoid contact lenses. Patient counseling: reviewed importance of compliance with the treatment plan including but not limited to: Lab testing (blood work) when indicated. Patient must AVOID . Two forms of contraceptive methods are reviewed. Monthly testing. Do not take vitamin supplements and avoid herbal supplements. Patient cannot donate blood. Do not share this medication with anyone. Avoid alcohol consumption. Avoid use of Acetaminophen. Avoid cosmetic procedures or waxing while taking this medication. Patient reminded of sun sensitivity. SAFETY NOTICE: Isotretinoin, otherwise known as Accutane, cannot be used in female patients who are or may become . There is an extremely high risk that defects will result if occurs while taking isotretinoin in any amount, even for a short period of time. Related Procedures POCT , urine manually resulted Related Medications tretinoin (Retin-A) 0.025 % cream Apply a thin layer to affected areas every third night, increase to nightly as tolerated. ISOtretinoin (Accutane) 40 MG capsule Take 1 capsule by mouth in the morning and evening with food. 2. Encounter for long-term current use of high risk medication Patient completed in office hcg. Will need to complete in 1 month to restart back on ipledge Related Procedures POCT , urine manually resulted Related Med (more content not included)... Normal [facility] TSHon 05-30-2023 TSH Qn 4.22 m[IU]/L High 0.36-3.74 [facility] ([place]) Comment on above: Performed By: #### F E, IBC, GFR, 483639, 159595, ADIFF, FERR, LIPID, CMP, 796288, TSH, 239613, MORPH, CBC, VIDH, FT3, ANEU, FT4 ####[address] [place] [address]#### CPEP, INSLN, MCRSO, ELSY ####[place] [address] VIon 05-30-2023 Vit. D 25-Hydroxy 35.9 ng/mL Normal [facility] ([place]) Comment on above: Result Comment: Inte rpretive Values Based on Total 25(OH) Vitamin D: Deficient <20 ng/mL Insufficient 20 - <30 ng/mL Sufficient 30-100 ng/mL Performed By: #### F E, IBC, GFR, 511935, 846022, ADIFF, FERR, LIPID, CMP, 954542, TSH, 433380, MORPH, CBC, VIDH, FT3, ANEU, FT4 ####[address] [place] [place] [id number]#### CPEP, INSLN, MCRSO, ELSY ####[place] [id number] [place] [address] aTPOon 05-30-2023 anti-Thyroid Peroxidase 54 units/ml Normal 0-60 [facility] ([place]) Comment on above: Result Comment: Resu lt Held - Last QC for aTPO on AH_AIM_1 was performed on 05/29/2023,10:42:55 Note - New Reference Range in effect 19 Performed By: #### C BC, ANEU, ADIFF, BMP, GFR #### [address] [address] SALCTon 05-14-2023 Cortisol Saliva 0.642 UG/DL Normal [facility] ([place]) Comment on above: Result Comment: The elevated cortisol concentration in this saliva specimen may be due to contamination during collection. We detected an abnormal ratio of cortisol relative to other glucocorticoid metabolites. This can be caused by application of hydrocortisone lotions or creams prior to saliva collection. When collecting saliva for cortisol analysis please refrain from using any topical cortisol (hydrocortisone) products for 24 hours prior to the collection. Always wash hands thoroughly before touching the collection device. This test was developed and its performance characteristics determined by [employer]. It has not been cleared or approved by the Food and Drug Administration. Reference Range: Children and Adults: 8:00a.m.: 0.025 - 0.600 Noon: <0.010 - 0.330 4:00p.m.: 0.010 - 0.200 Bedtime (9:00p.m.-Midnight): <0.010 - 0.090 Performed At: [facility] [address] [place] [address] [id number] Wilfred Muse MD Ph:[phone] Performed By: #### 5 [address] #### [address] [address] CORTUon 05-11-2023 Urine Volume, Total 2400 mL Normal [facility] ([place]) Comment on above: Order Comment: Total volume 2400mLPatient said they did not collect all urine for the full 24 hours Performed By: #### C BC, ANEU, ADIFF, BMP, GFR #### [address] [place] [address] [place], [place] [address] CORTUon 05-06-2023 Cortisol Free 24h Ur 7 UG/24 HR Normal 6-42 [facility] ([place]) Comment on above: Order Comment: Total volume 2400mLPatient said they did not collect all urine for the full 24 hours Result Comment: Perf ormed At: [facility] [address] [id number] Dillon Arguelles MD Ph:[phone] Performed By: #### C BC, ANEU, ADIFF, BMP, GFR #### [address] [address] Cortisol Free Ur 3 UG/L Normal Undefined [facility] ([place]) Comment on above: Order Comment: Total volume 2400mLPatient said they did not collect all urine for the full 24 hours Result Comment: This test was developed and its performance characteristics determined by [facility]. It has not been cleared or approved by the Food and Drug Administration. Performed By: #### C BC, ANEU, ADIFF, BMP, GFR #### [address] [address] [id number] 05-03-2023 Collection Period 24 hour Normal [facility] ([place]) Comment on above: Order Comment: Total Volume 2400 mL Performed By: #### C RU24 #### [address] [address] Creatinine [Mass/Vol] 38.6 mg/dL Normal [facility] ([place]) Comment on above: Order Comment: Total Volume 2400 mL Performed By: #### C RU24 #### [address] [address] U24 Creatinine 0.9 g/24hr Normal 0.6-1.6 [facility] ([place]) Comment on above: Order Comment: Total Volume 2400 mL Performed By: #### C RU24 #### [address] [address] U24 Total Volume 2400 mL/24hr Normal [facility] ([place]) Comment on above: Order Comment: Total Volume 2400 mL Performed By: #### C RU24 #### [facility] [address] [place] [address] Progress Noteon 04-24-2023 Progress Note DATE OF SERVICE: 04/24/2023 PATIENT NAME: Maria T Wynne : 1995 AGE: 28 y.o. CLINIC NUMBER: [id number] 3:33 PM Chief Complaint Patient presents with Acne (LMS) Verbal consent was received from the patient/parent to do telemedicine/ virtual visit. Subjective Maria T Wynne is a 28 y.o. who presents on the telephone for a remote visit (as recommended by the [facility] COVID-19 pandemic guidelines). Patient is currently on isotretinoin 40mg BID x 1 month. Start date 03/16/23. Patient recently started new medications for thyroiditis and weight loss medications. Patient states she is on so many meds she doesn't know which ones are causing side effects. Interim History: Tolerating medication well. Patient does complain of dry lips. Patient does not complain of nosebleeds. The patient denies headaches, visual changes, photosensitivity, Admits mild muscle/joint pains. Denies fatigue, nausea/vomiting, diarrhea, abdominal pain, rectal bleeding, hair loss, and mood changes including: depression, increased feelings of anger, and suicidal ideations. [facility] ID: [id number] Pt two forms of contraception are 1. OCP and 2. Male latex condoms. Allergies Allergen Reactions Lubiprostone Rash Penicillins Hives, Rash and Other Other reaction(s): Other (See Comments), Unknown Patient states "she gets everything" Ciprofloxacin Hcl Other reaction(s): GI Upset Clindamycin Other reaction(s): Intolerance Her whole body felt hot and she had abdominal pain Doxycycline GI intolerance, Nausea And Vomiting and Other Other reaction(s): GI Upset, Unknown Metronidazole GI intolerance and Nausea And Vomiting Other reaction(s): GI Upset Nausea. Able to tolerate with anti-emetics Nausea Naproxen Other reaction(s): GI Upset Headache/GI upset Other Sulfa Antibiotics Other reaction(s): Other: See Comments It is like the flu x 10" Sulfamethoxazole-Trime thoprim Nausea And Vomiting Other reaction(s): Other: See Comments Tramadol Other reaction(s): Other: See Comments Headache seizure Nickel Rash PMH, allergies, and social history reviewed and updated as appropriate Medication list reviewed/updated Allergies reviewed/updated Problem list reviewed/updated Patient requests medication refills, see below for orders. Patient was seen today via Telehealth by agreement and consent. I used the following Telehealth technology: Audio and video capabilities. Patient location: Patient Location: Home. This patient encounter is appropriate and reasonable under the circumstances: transportation issues and too sick to leave home . The patient has been advised of the potential risks and limitations of this mode of treatment (including but not limited to the absence of in-person examination) and has agreed to be treated in a remote fashion in spite of them. Any and all of the patient's/patient's family's questions on this issue have been answered and I have made no promises or guarantees to the patient. The patient has also been advised to contact this office for worsening conditions or problems, and seek emergency medical treatment and/or call 911 if the patient deems either necessary. The patient stated that they are currently in the [facility]. If the patient is a minor, permission has been obtained by the parent or guardian for the patient to receive medical care at this visit. 1. Acne vulgaris Head - Anterior (Face) Scattered acneiform papules [x]Chronic []Acute []Stable [x]Flaring/Exacerbatio n - Educated and reassured. Treatment options, risks, benefits, and expectations reviewed. Improved on Isotretinoin. Patient currently not at goal. Patient to continue on Isotretinoin dose 40 mg BID. Target dose (0.5-1.0 mg/ kg/day or 120-150mg/kg total):1 0,032-12,540 mg. Dose to date: mg x days= 2,400 mg Pt [email or web address] ID# [id number] Pt two forms of contraception are 40 and BID. Reviewed with patient the importance of calling office to inform staff of when and where labs are drawn if ordered. Pt advised that if labs drawn in any location other than in-house lab, results are not automatically sent to ordering provider. Educated that if office does not obtain labs within time sensitive window, patient may be discharged from [facility] and may have delay in picking up medication. Once labs are reviewed our office will call to inform Pt of the results, at that time Pt will need to log on to the [email or web address] system to answer the required questions. After that has been completed Pt will need to roller picker the prescription from the pharmacy. Reminded that the prescription expires 7 days from the date of the test. Check labs: HCG CBC CMP lipid panel If experiencing nasal dryness, recommend that patient use a humidifier in bedroom while sleeping, as well as use normal saline solution, and Vaseline inside the nose to help ease the dryness which may cause nosebleeds. R (more content not included)... Normal [facility] .GFRon 04-17-2023 GFR Non- 67 ml/min/1.73sqm Normal [facility] ([place]) Comment on above: Result Comment: GFR Population mean for , [...] 15 mL/min/1.73 square meters Performed By: #### C BC, ANEU, ADIFF, BMP, GFR #### [address] [address] GFR 82 ml/min/1.73sqm Normal [facility] ([place]) Comment on above: Result Comment: GFR Population mean for , [...] 15 mL/min/1.73 square meters Performed By: #### C BC, ANEU, ADIFF, BMP, GFR #### [address] [address] B12on 04-17-2023 Cobalamin (Vitamin B12) [Mass/Vol] 760 pg/mL Normal 211-911 [facility] ([place]) Comment on above: Performed By: #### C BC, ANEU, ADIFF, BMP, GFR #### [address] [address] BMPon 04-17-2023 BUN/Creatinine Ratio 5 ratio Low 7-27 [facility] ([place]) Comment on above: Performed By: #### C BC, ANEU, ADIFF, BMP, GFR #### [address] [address] Calcium [Mass/Vol] 9.9 mg/dL Normal 8.4-10.2 [facility] ([place]) Comment on above: Performed By: #### C BC, ANEU, ADIFF, BMP, GFR #### [address] [address] Chloride [Moles/Vol] 99 mmol/L Normal 98-107 [facility] ([place]) Comment on above: Performed By: #### C BC, ANEU, ADIFF, BMP, GFR #### [address] [address] CO2 [Moles/Vol] 29 mmol/L Normal 22-29 [facility] ([place]) Comment on above: Performed By: #### C BC, ANEU, ADIFF, BMP, GFR #### [address] [address] Creatinine [Mass/Vol] 0.97 mg/dL Normal 0.55-1.02 [facility] ([place]) Comment on above: Performed By: #### C BC, ANEU, ADIFF, BMP, GFR #### [address] [address] Electrolyte Balance 12.0 mEq/L Normal 4.0-15.0 [facility] ([place]) Comment on above: Performed By: #### C BC, ANEU, ADIFF, BMP, GFR #### [place] [address] Glucose [Mass/Vol] 83 mg/dL Normal 70-105 [facility] ([place]) Comment on above: Performed By: #### C BC, ANEU, ADIFF, BMP, GFR #### [place] [address] Potassium [Moles/Vol] 3.3 mmol/L Low 3.5-5.1 [facility] ([place]) Comment on above: Performed By: #### C BC, ANEU, ADIFF, BMP, GFR #### [place] [address] Sodium [Moles/Vol] 140 mmol/L Normal 136-145 [facility] ([place]) Comment on above: Performed By: #### C BC, ANEU, ADIFF, BMP, GFR #### [place] [address] Urea nitrogen [Mass/Vol] 5 mg/dL Low 7-18 [facility] ([place]) Comment on above: Performed By: #### C BC, ANEU, ADIFF, BMP, GFR #### [place] [address] FT3on 04-17-2023 Free T3 [Mass/Vol] 3.39 pg/mL Normal 2.30-4.00 [facility] ([place]) Comment on above: Performed By: #### C BC, ANEU, ADIFF, BMP, GFR #### [place] [address] FT4on 04-17-2023 Free T4 [Mass/Vol] 1.15 ng/dL Normal 0.76-1.46 [facility] ([place]) Comment on above: Performed By: #### C BC, ANEU, ADIFF, BMP, GFR #### [place] [address] LABORATORYOrdered By: SYSTEM SYSTEM on 04-17-2023 25-hydroxyvitamin D3 [Mass/Vol] 39.9 ng/mL Invalid Interpretation Code AO ADM SS Comment on above: Interpretive Data: I nterpretive Values Based on Total 25(OH) Vitamin D: Deficient <20 ng/mL Insufficient 20 - <30 ng/mL Sufficient 30-100 ng/mL Calcium [Mass/Vol] 9.9 mg/dL Normal 8.4 - 10. 2 mg/dL AO ADM SS Chloride [Moles/Vol] 99 mmol/L Normal 98 - 10 7 mmol/L AO ADM SS CO2 [Moles/Vol] 29 mmol/L Normal 22 - 29 mmol/L AO AD M SS Cobalamin (Vitamin B12) [Mass/Vol] 760 pg/mL Normal 211 - 911 pg/mL AH ADM SS Creatinine [Mass/Vol] 0.97 mg/dL Normal 0.55 - 1.02 mg/dL AO ADM SS Electrolyte Balance 12.0 mEq/L Normal 4.0 - 15 .0 mEq/L AO ADM SS Free T3 [Mass/Vol] 3.39 pg/mL Normal 2.30 - 4. 00 pg/mL AO ADM SS Free T4 [Mass/Vol] 1.15 ng/dL Normal 0.76 - 1. 46 ng/dL AO ADM SS GFR/1.73 sq M.predicted among blacks MDRD (S/P/Bld) [Vol rate/Area] 82 ml/min/1.73sqm Invalid Interpretation Code AO Chemistry S Comment on above: Interpretive Data: GFR Population mean for , Non- Americans Ages 20-29 = 116 mL/min/1.73 sq.m. Ages 30-39 = 107 mL/min/1.73 sq.m. Ages 40-49 = 99 mL/min/1.73 sq.m. Ages 50-59 = 93 mL/min/1.73 sq.m. Ages 60-69 = 85 mL/min/1.73 sq.m. Ages 70+ = 75 mL/min/1.73 sq.m. Chronic Kidney Disease: Less than 60 mL/min/1.73 square meters End Stage Renal Disease: Less than 15 mL/min/1.73 square meters GFR/1.73 sq M.predicted among non-blacks MDRD (S/P/Bld) [Vol rate/Area] 67 ml/min/1.73sqm Invalid Interpretation Code AO Chemistry S Comment on above: Interpretive Data: GFR Population mean for , Non- Americans Ages 20-29 = 116 mL/min/1.73 sq.m. Ages 30-39 = 107 mL/min/1.73 sq.m. Ages 40-49 = 99 mL/min/1.73 sq.m. Ages 50-59 = 93 mL/min/1.73 sq.m. Ages 60-69 = 85 mL/min/1.73 sq.m. Ages 70+ = 75 mL/min/1.73 sq.m. Chronic Kidney Disease: Less than 60 mL/min/1.73 square meters End Stage Renal Disease: Less than 15 mL/min/1.73 square meters Glucose [Mass/Vol] 83 mg/dL Normal 70 - 105 mg/dL AO ADM SS Potassium [Moles/Vol] 3.3 mmol/L Low 3.5 - 5.1 mmol/L AO ADM SS Sodium [Moles/Vol] 140 mmol/L Normal 136 - 145 mmol/L AO ADM SS TSH Qn 1.79 m[IU]/L Normal 0.36 - 3.74 mcIU/mL AO ADM SS Urea nitrogen [Mass/Vol] 5 mg/dL Low 7 - 18 mg/dL AO ADM SS Urea nitrogen/Creatinine [Mass ratio] 5 ratio Low 7 - 27 ratio AO ADM SS TSHon 04-17-2023 TSH Qn 1.79 m[IU]/L Normal 0.36-3.74 [facility] ([place]) Comment on above: Performed By: #### C BC, ANEU, ADIFF, BMP, GFR #### Sánchez [address] [address] VIDHon 04-17-2023 Vit. D 25-Hydroxy 39.9 ng/mL Normal [facility] ([place]) Comment on above: Result Comment: Inte rpretive Values Based on Total 25(OH) Vitamin D: Deficient <20 ng/mL Insufficient 20 - <30 ng/mL Sufficient 30-100 ng/mL Performed By: #### C BC, ANEU, ADIFF, BMP, GFR #### Sánchez [address] [address] US THYROIDon 03-30-2023 US THYROID ORIGINAL EXAMINATION: ULTRASOUND OF THE THYROID WITH COLOR DOPPLER FLOW EVALUATION03/29/2023 4:11 pm ULTRASOUND OF THE THYROID: COMPARISON: None HISTORY: ORDERING SYSTEM PROVIDED HISTORY: Reason for Exam: high T4, T3, TSH normal, FINDINGS: RIGHT lobe: 4.3 x 1.8 x 1.6 cm LEFT lobe: 3.7 x 1.6 x 1.7 cm Isthmus is 0.3 cm. The gland is mildly heterogeneous throughout without increase in vascularity. No suspicious focal thyroid abnormality is seen. No lymphadenopathy is seen in the visualized portions of the neck. IMPRESSION: Normal sized thyroid with mild heterogeneity that may be reflection of previous thyroiditis. There is no suspicious thyroid nodule that requires follow-up imaging. Interpreted by: Omari Hsu MD Preliminary Report By: Omari Hsu MD Electronically signed By Omari Hsu MD Dictated Date: 03/30/2023 3:29:28 PM Prelim Date: 03/30/2023 3:30:25 PM Sign Date: 03/30/2023 3:30:25 PM Ordering Provider: MICHELE Coleman [facility] ([place]) .Auto Diffon 03-29-2023 Basophil, Absolute 0.0 10 3/mcL Normal 0.0-0.2 [facility] ([place]) Comment on above: Performed By: #### C BC, ANEU, ADIFF, BMP, GFR #### [address] [address] Basophils/100 WBC (Bld) 0.3 % Normal 0.0-2.5 [facility] ([place]) Comment on above: Performed By: #### C BC, ANEU, ADIFF, BMP, GFR #### [address] [address] Eosinophil, Absolute 0.2 10 3/mcL Normal 0.0-0.4 [facility] ([place]) Comment on above: Performed By: #### C BC, ANEU, ADIFF, BMP, GFR #### [address] [address] Eosinophils/100 WBC (Bld) 1.7 % Normal 0.0-7.0 [facility] ([place]) Comment on above: Performed By: #### C BC, ANEU, ADIFF, BMP, GFR #### [address] [address] Lymphocyte, Absolute 3.0 10 3/mcL Normal 0.8-3.9 [facility] ([place]) Comment on above: Performed By: #### C BC, ANEU, ADIFF, BMP, GFR #### [address] [address] Lymphocytes/100 WBC (Bld) 30.2 % Normal 10.0-50.0 [facility] ([place]) Comment on above: Performed By: #### C BC, ANEU, ADIFF, BMP, GFR #### [address] [address] Monocyte, Absolute 0.6 10 3/mcL Normal 0.2-1.0 [facility] ([place]) Comment on above: Performed By: #### C BC, ANEU, ADIFF, BMP, GFR #### [address] [address] Monocytes/100 WBC (Bld) 6.4 % Normal 1.7-13.0 [facility] ([place]) Comment on above: Performed By: #### C BC, ANEU, ADIFF, BMP, GFR #### [address] [address] Neutrophils/100 WBC (Bld) 61.4 % Normal 37.0-80.0 [facility] ([place]) Comment on above: Performed By: #### C BC, ANEU, ADIFF, BMP, GFR #### [address] [address] .GFRon 03-29-2023 GFR 102 ml/min/1.73sqm Normal [facility] ([place]) Comment on above: Result Comment: GFR Population mean for , [...] 15 mL/min/1.73 square meters Performed By: #### C BC, ANEU, ADIFF, BMP, GFR #### [address] [address] GFR Non- 84 ml/min/1.73sqm Normal [facility] ([place]) Comment on above: Result Comment: GFR Population mean for , [...] 15 mL/min/1.73 square meters Performed By: #### C BC, ANEU, ADIFF, BMP, GFR #### [address] [address] .NEUABSon 03-29-2023 Neutrophil, Absolute 6.0 10 3/mcL Normal 2.9-6.2 [facility] ([place]) Comment on above: Performed By: #### C BC, ANEU, ADIFF, BMP, GFR #### [address] [address] BMPon 03-29-2023 BUN/Creatinine Ratio 5 ratio Low 7-27 [facility] ([place]) Comment on above: Performed By: #### C BC, ANEU, ADIFF, BMP, GFR #### [address] [address] Calcium [Mass/Vol] 9.1 mg/dL Normal 8.4-10.2 [facility] ([place]) Comment on above: Performed By: #### C BC, ANEU, ADIFF, BMP, GFR #### [address] [address] Chloride [Moles/Vol] 98 mmol/L Normal 98-107 [facility] ([place]) Comment on above: Performed By: #### C BC, ANEU, ADIFF, BMP, GFR #### [address] [address] CO2 [Moles/Vol] 31 mmol/L High 22-29 [facility] ([place]) Comment on above: Performed By: #### C BC, ANEU, ADIFF, BMP, GFR #### [address] [address] Creatinine [Mass/Vol] 0.80 mg/dL Normal 0.55-1.02 [facility] ([place]) Comment on above: Performed By: #### C BC, ANEU, ADIFF, BMP, GFR #### [place] [id number] Electrolyte Balance 10.0 mEq/L Normal 4.0-15.0 [facility] ([place]) Comment on above: Performed By: #### C BC, ANEU, ADIFF, BMP, GFR #### [place] [address] Glucose [Mass/Vol] 91 mg/dL Normal 70-105 [facility] ([place]) Comment on above: Performed By: #### C BC, ANEU, ADIFF, BMP, GFR #### [place] [id number] Potassium [Moles/Vol] 3.2 mmol/L Low 3.5-5.1 [facility] ([place]) Comment on above: Performed By: #### C BC, ANEU, ADIFF, BMP, GFR #### [place] [address] Sodium [Moles/Vol] 139 mmol/L Normal 136-145 [facility] ([place]) Comment on above: Performed By: #### C BC, ANEU, ADIFF, BMP, GFR #### [place] [address] Urea nitrogen [Mass/Vol] 4 mg/dL Low 7-18 [facility] ([place]) Comment on above: Performed By: #### C BC, ANEU, ADIFF, BMP, GFR #### [address] [address] CBCon 03-29-2023 Erythrocyte distribution width (RBC) [Ratio] 13.2 % Normal 11.5-14.5 [facility] ([place]) Comment on above: Performed By: #### C BC, ANEU, ADIFF, BMP, GFR #### [address] [address] Hematocrit (Bld) [Volume fraction] 38.1 % Normal 37.0-47.0 [facility] ([place]) Comment on above: Performed By: #### C BC, ANEU, ADIFF, BMP, GFR #### [address] [address] Hgb 13.1 G/dL Normal 12.0-16.0 [facility] ([place]) Comment on above: Performed By: #### C BC, ANEU, ADIFF, BMP, GFR #### [address] [address] MCH (RBC) [Entitic mass] 26.7 pg Low 27.0-31.2 [facility] ([place]) Comment on above: Performed By: #### C BC, ANEU, ADIFF, BMP, GFR #### [place] [address] MCHC 34.5 G/dL Normal 33.0-37.0 [facility] ([place]) Comment on above: Performed By: #### C BC, ANEU, ADIFF, BMP, GFR #### [address] [address] MCV (RBC) [Entitic vol] 77.3 fL Low 80.0-94.0 [facility] ([place]) Comment on above: Performed By: #### C BC, ANEU, ADIFF, BMP, GFR #### [address] [address] Platelet 312 10 3/mcL Normal 130-400 [facility] ([place]) Comment on above: Performed By: #### C BC, ANEU, ADIFF, BMP, GFR #### Sánchez [address] [address] Platelet mean volume (Bld) [Entitic vol] 7.7 fL Normal 7.4-10.4 [facility] ([place]) Comment on above: Performed By: #### C BC, ANEU, ADIFF, BMP, GFR #### Sánchez [address] [address] RBC 4.92 10 6/mcL Normal 4.20-5.40 [facility] ([place]) Comment on above: Performed By: #### C BC, ANEU, ADIFF, BMP, GFR #### Sánchez [place] [address] [place], [place] [address] WBC 9.8 10 3/mcL Normal 4.6-10.8 [facility] ([place]) Comment on above: Performed By: #### C BC, ANEU, ADIFF, BMP, GFR #### [address] [address] LABORATORYOrdered By: SYSTEM SYSTEM on 03-29-2023 Basophil, Absolute 0.0 103/mcL Normal 0.0 - 0.2 10^3/mcL AO Workflow SS Basophils/100 WBC (Bld) 0.3 % Normal 0.0 - 2.5 % AO Workflow SS Calcium [Mass/Vol] 9.1 mg/dL Normal 8.4 - 10. 2 mg/dL AO ADM SS Chloride [Moles/Vol] 98 mmol/L Normal 98 - 10 7 mmol/L AO ADM SS CO2 [Moles/Vol] 31 mmol/L High 22 - 29 mmol/L AO AD M SS Creatinine [Mass/Vol] 0.80 mg/dL Normal 0.55 - 1.02 mg/dL AO ADM SS Electrolyte Balance 10.0 mEq/L Normal 4.0 - 15 .0 mEq/L AO ADM SS Eosinophil, Absolute 0.2 103/mcL Normal 0.0 - 0 .4 10^3/mcL AO Workflow SS Eosinophils/100 WBC (Bld) 1.7 % Normal 0.0 - 7.0 % AO Workflow SS Erythrocyte distribution width (RBC) [Ratio] 13.2 % Normal 11.5 - 14.5 % AO Workflow SS GFR/1.73 sq M.predicted among blacks MDRD (S/P/Bld) [Vol rate/Area] 102 ml/min/1.73sqm Invalid Interpretation Code AO Chemistry S Comment on above: Interpretive Data: GFR Population mean for , Non- Americans Ages 20-29 = 116 mL/min/1.73 sq.m. Ages 30-39 = 107 mL/min/1.73 sq.m. Ages 40-49 = 99 mL/min/1.73 sq.m. Ages 50-59 = 93 mL/min/1.73 sq.m. Ages 60-69 = 85 mL/min/1.73 sq.m. Ages 70+ = 75 mL/min/1.73 sq.m. Chronic Kidney Disease: Less than 60 mL/min/1.73 square meters End Stage Renal Disease: Less than 15 mL/min/1.73 square meters GFR/1.73 sq M.predicted among non-blacks MDRD (S/P/Bld) [Vol rate/Area] 84 ml/min/1.73sqm Invalid Interpretation Code AO Chemistry S Comment on above: Interpretive Data: GFR Population mean for , Non- Americans Ages 20-29 = 116 mL/min/1.73 sq.m. Ages 30-39 = 107 mL/min/1.73 sq.m. Ages 40-49 = 99 mL/min/1.73 sq.m. Ages 50-59 = 93 mL/min/1.73 sq.m. Ages 60-69 = 85 mL/min/1.73 sq.m. Ages 70+ = 75 mL/min/1.73 sq.m. Chronic Kidney Disease: Less than 60 mL/min/1.73 square meters End Stage Renal Disease: Less than 15 mL/min/1.73 square meters Glucose [Mass/Vol] 91 mg/dL Normal 70 - 105 mg/dL AO ADM SS Hematocrit (Bld) [Volume fraction] 38.1 % Normal 37.0 - 47.0 % AO Workflow SS Hemoglobin (Bld) [Mass/Vol] 13.1 G/dL Normal 12.0 - 16.0 G/dL AO Workflow SS Lymphocyte, Absolute 3.0 103/mcL Normal 0.8 - 3 .9 10^3/mcL AO Workflow SS Lymphocytes/100 WBC (Bld) 30.2 % Normal 10.0 - 50.0 % AO Workflow SS MCH (RBC) [Entitic mass] 26.7 pg Low 27.0 - 31.2 pg AO Workflow SS MCHC 34.5 G/dL Normal 33.0 - 37.0 G/dL AO Workflow SS MCV (RBC) [Entitic vol] 77.3 fL Low 80.0 - 94.0 fL AO Workflow SS Monocyte, Absolute 0.6 103/mcL Normal 0.2 - 1.0 10^3/mcL AO Workflow SS Monocytes/100 WBC (Bld) 6.4 % Normal 1.7 - 13.0 % AO Workflow SS Neutrophil, Absolute 6.0 103/mcL Normal 2.9 - 6 .2 10^3/mcL AO Workflow SS Neutrophils/100 WBC (Bld) 61.4 % Normal 37.0 - 80.0 % AO Workflow SS Platelet mean volume (Bld) [Entitic vol] 7.7 fL Normal 7.4 - 10.4 fL AO Workflow SS Platelets (Bld) [#/Vol] 312 103/mcL Normal 130 - 400 10^3/mcL AO Workflow SS Potassium [Moles/Vol] 3.2 mmol/L Low 3.5 - 5.1 mmol/L AO ADM SS RBC (Bld) [#/Vol] 4.92 106/mcL Normal 4.20 - 5.4 0 10^6/mcL AO Workflow SS Sodium [Moles/Vol] 139 mmol/L Normal 136 - 145 mmol/L AO ADM SS Urea nitrogen [Mass/Vol] 4 mg/dL Low 7 - 18 mg/dL AO ADM SS Urea nitrogen/Creatinine [Mass ratio] 5 ratio Low 7 - 27 ratio AO ADM SS WBC (Bld) [#/Vol] 9.8 103/mcL Normal 4.6 - 10.8 10^3/mcL AO Workflow SS No Panel Informationon 03-29 Culture Urine 10,000 - 50,000 cfu/ ml Mixed growth consistent with normal urogenital lev. [facility] CNOVon 03-22-2023 CNOV Office Visit ([facility] ) SHERRELLMARIA T ([id number]) 1995 F Date Time Provider Department 03/22/23 8:30 PM SLEEP [facility] During your visit today, we recorded the following information about you: Heather Hannah 03/23/2023 4:03 AM Signed Sleep Study Check-In Documentation Date: March 23, 2023 Name: Maria T Wynne Patient was accompanied by Self. Location: [facility] Latex allergy: No Tape allergy: No Current medications were reviewed with the patient:Yes Sleep aid taken by patient for the sleep study: Yes Name of sleep aid: ATARAX AND CLONIDINE Procedure was explained to the patient and all questions were answered. PAP treatment discussed and shown to patient: Yes If PAP used enter mask info: Mask NameN20 MakeRESMED MaskTypeNasal Mask SizeSmall Chin Sharp Used No Knowledge Program (KP): KP was not completed in [facility] by patient and accepted Study type: PAP titration Adverse Event: No (If yes create a new abstract) Comments: Patient was advised to follow up with their ordering provider regarding test results Heather Leon Brielle Referring Provider: TALI BOGGS [[id number]] Allergies As of Date: 03/22/2023 Noted Allergy Reaction AMITIZA (LUBIPROSTONE) 01/28/2019 2 - Rash AMOXICILLIN 04/06/2005 2 - Rash CIPRO (CIPROFLOXACIN HCL) 02/11/2020 8 - GI Upset CLINDAMYCIN 04/12/2019 5 - Intolerance Comments: Her whole body felt hot and she had abdominal pain 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 Able to tolerate with anti-emetics NAPROXEN 01/31/2012 8 - GI Upset Comments: Headache/GI upset NICKEL 02/20/2023 2 - Rash PENICILLINS 04/06/2005 4 - Hives SULFA (SULFONAMIDE ANTIBIOTICS) 05/18/2018 14 - Other: See Comments Comments: "It is like the flu x 10" SULFAMETHOXAZOLE-TRIME THOPRIM 12/06/2021 14 - Other: See Comments Date Reviewed: 03/14/2023 Reviewed by: Tali Boggs PA-C - Fully Assessed Visit Diagnoses:MICHELLE (obstructive sleep apnea) [G47.33] CSA (central sleep apnea) [G47.31] Order(s):PAP TITRATION PSG (CPAP, BIPAP, ASV) [4742923] Order #: [id number]. #:[id number] Prescriptions as of 05/02/2023 - Phendimetrazine Tartrate 35 mg tab Take 35 mg by mouth two times a day. - OTC PRODUCT Phendi 35 mg three times daily po - SEMAGLUTIDE ORAL Take by mouth. 10 units sc once weekly - levothyroxine (SYNTHROID) 25 mcg tablet TAKE 1 TABLET BY MOUTH EVERY DAY IN THE MORNING on an empty stomach 30 MINUTES before other things or 2 (TWO) hours after other things - iv contrast (will be provided with radiology test) MRI sacral plexus Inj, intravenously, once for 1 dose. No IV access, insert saline lock prior to the beginning of sedation, infusion, injection of imaging exam. Discontinue saline lock post exam. If Pt. has a central line or IVAD, may access for administration according to line specific nursing protocol. Once exam is complete flush line and de-access according to line specific nursing protocol in the MR contrast administration guidelines link. - ZUBSOLV 2.9-0.[address] 2 (TWO) TABLETS UNDER THE TONGUE EVERY DAY - naloxone 4 mg/actuation nasal spray (NARCAN) - MYRA FE 04/01, 28, 1 mg-20 mcg (21)/75 mg (7) per tablet Take 1 tablet by mouth once daily. Take active pills only - skip placebo pills. - baclofen 10 mg lidocaine 50 mg vaginal suppository (CPD) Use 1 Suppository vaginally daily at bedtime. Unwrap and insert as directed. - polyethylene glycol 3350 (MIRALAX) 17 gram/dose powder Take 17 g by mouth three times daily as needed for constipation. Dissolve dose in 4 - 8 ounces of liquid and take as directed. - hydroCHLOROthiazide 12.5 mg capsule Take 12.5 mg by mouth once daily. - acyclovir (ZOVIRAX) 400 mg tablet TAKE 2 TABLETS BY MOUTH DAILY - pregabalin (LYRICA) 100 mg capsule Take 100 mg by mouth three times daily. - ezetimibe (ZETIA) 10 mg tablet Take 10 mg by mouth once daily. - hydrOXYzine HCl (ATARAX) 50 mg tablet TAKE 1 TO 2 TABLETS FOUR TIMES DAILY NEEDED FOR ANXIETY - omeprazole magnesium (PRILOSEC ORAL) Take by mouth. - cloNIDine HCl (CATAPRES) 0.1 mg tablet (Prior Auth#:[id number]) - methocarbamol (ROBAXIN) 750 mg tablet Take 750 mg by mouth four times daily as needed. - acetaminophen (TYLENOL ARTHRITIS PAIN ORAL) Take by mouth three times daily as needed. - ibuprofen (MOTRIN) 600 mg tablet Take 1 tablet by mouth every 6 hours as needed. FOR PAIN. 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 Normal [facility] HCG ( test) Ql (U)o n 03-16-2023 Beta HCG ( test) Ql (U) 555190 [facility] Interpretation and review of laboratory results Normal [facility] NEGATIVE QC Pass [facility] POSITIVE QC Pass [facility] Preg Test, Ur Negative Negative [facility] HCG ( test) Ql (U)o n 12-26-2022 Beta HCG ( test) Ql (U) [id number] [facility] Interpretation and review of laboratory results Normal [facility] NEGATIVE QC Pass [facility] POSITIVE QC Pass [facility] Preg Test, Ur Negative Negative [facility] [place] [facility] Biopsyon 12-26-2022 Type of biopsy: tangential Informed consent: discussed and consent obtained Timeout: patient name, date of , surgical site, and procedure verified Anesthesia: the lesion was anesthetized in a standard fashion Anesthetic: 1% lidocaine w/ epinephrine 1-100,000 buffered w/ 8.4% NaHCO3 Instrument used: DermaBlade Hemostasis achieved with: electrodesiccation Outcome: patient tolerated procedure well Post-procedure details: wound care instructions given [facility] Type of biopsy: punc h Informed consent: discussed and consent obtained Timeout: patient name, date of , surgical site, and procedure verified Anesthesia: the lesion was anesthetized in a standard fashion Anesthetic: 1% lidocaine w/ epinephrine 1-100,000 buffered w/ 8.4% NaHCO3 Punch size: 3 mm Hemostasis achieved with: pressure Outcome: patient tolerated procedure well Post-procedure details: wound care instructions given [facility] CNOVon 12-08-2022 CNOV Office Visit (SHAUNNA ) MARIA T WYNNE ([id number]) 1995 F Date Time Provider Department 12/08/22 1:30 PM NURSE PAIN INFUSION EPI DON During your visit today, we recorded the following information about you: Pulse Respiration Blood pressure Last Period 88/minute 18/minute 133/88 12/06/22 Katalina Tripp RN 12/08/2022 4:44 PM Addendum 1334 Pt states that she has been NPO since 0730 except for sips fluid with meds. Pt states that her friend, Yahir, will be available as her chair car driver upon discharge. Pt states that she had no improvement whatsoever with last infusion as well as infusion before that and that [facility] is not doing ketamine infusions as she feels need to occur . Pt states that other facilities give ketamine infusions 4 days in a row that is why hers aren't effective. Dr. Mckenna notified and no ketamine infusions to be done and pt may have an office appt to be scheduled for discussion ot POC or possibly be referred elsewhere. 1345 Pt notified of above and became angered. Pt began swearing, insisted on having infusion even though no benefit has occurred. Pt offered followup appt to discuss POC but left department as I was trying to schedule followup appt. Amber Yost, manager user interface [facility] aware. Katalina Tripp RN Allergies As of Date: 12/08/2022 Noted Allergy Reaction fragrance mix [Other] 12/14/2007 2 - Rash AMITIZA (LUBIPROSTONE) 01/28/2019 2 - Rash AMOXICILLIN 04/06/2005 2 - Rash CIPRO (CIPROFLOXACIN HCL) 02/11/2020 8 - GI Upset CLINDAMYCIN 04/12/2019 5 - Intolerance Comments: Her whole body felt hot and she had abdominal pain DOXYCYCLINE 06/25/2009 8 - GI Upset FLAGYL (METRONIDAZOLE HCL) 10/10/2011 8 - GI Upset Comments: Nausea. Able to tolerate with anti-emetics metal [Other] 04/06/2005 2 - Rash NAPROXEN 01/31/2012 8 - GI Upset Comments: Headache/GI upset Trish [Other] 04/06/2005 2 - Rash PENICILLINS 04/06/2005 4 - Hives SULFA (SULFONAMIDE ANTIBIOTICS) 05/18/2018 14 - Other: See Comments Comments: "It is like the flu x 10" SULFAMETHOXAZOLE-TRIME THOPRIM 12/06/2021 14 - Other: See Comments ULTRAM (TRAMADOL HCL) 10/10/2011 14 - Other: See Comments Comments: Headache seizure Date Reviewed: 12/08/2022 Reviewed by: Katalina Tripp RN - Fully Assessed Primary Visit Diagnosis:Neuropathic pain [M79.2] Other Visit Diagnosis:Chronic pain syndrome [G89.4] Prescriptions as of 12/09/2022 - bisacodyl EC (DULCOLAX, BISACODYL,) 5 mg EC tablet Take 1 tablet by mouth once daily for 14 days. for constipation. - polyethylene glycol 3350 (MIRALAX) 17 gram/dose powder Take 17 g by mouth three times daily as needed for constipation. Dissolve dose in 4 - 8 ounces of liquid and take as directed. - Phentermine HCl 15 mg capsule take 1 capsule daily IN THE MORNING ,for 30 days ,InstrMonth 1 3, end OF meds on 12/20/2022] - hydroCHLOROthiazide 12.5 mg capsule Take 12.5 mg by mouth once daily. - plecanatide (TRULANCE) 3 mg tablet Take 1 tablet (3 mg) by mouth once daily. - acyclovir (ZOVIRAX) 400 mg tablet TAKE 2 TABLETS BY MOUTH DAILY - pregabalin (LYRICA) 100 mg capsule Take 100 mg by mouth three times daily. - MYRA FE 04/01, 28, 1 mg-20 mcg (21)/75 mg (7) per tablet Take 1 tablet by mouth once daily. - ezetimibe (ZETIA) 10 mg tablet Take 10 mg by mouth once daily. - albuterol HFA (PROVENTIL HFA, VENTOLIN HFA) 90 mcg/actuation inhaler INHALE 2 PUFFS EVERY 6 HOURS NEEDED FOR WHEEZING - SYMBICORT 80-4.5 mcg/actuation inhaler INHALE 2 PUFFS BY MOUTH and into the lungs TWICE DAILY - hydrOXYzine HCl (ATARAX) 50 mg tablet TAKE 1 TO 2 TABLETS FOUR TIMES DAILY NEEDED FOR ANXIETY - omeprazole magnesium (PRILOSEC ORAL) Take by mouth. - cloNIDine HCl (CATAPRES) 0.1 mg tablet (Prior Auth#:[id number]) - methocarbamol (ROBAXIN) 750 mg tablet Take 750 mg by mouth four times daily as needed. - acetaminophen (TYLENOL ARTHRITIS PAIN ORAL) Take by mouth three times daily as needed. - ibuprofen (MOTRIN) 600 mg tablet Take 1 tablet by mouth every 6 hours as needed. FOR PAIN. 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 [facility] 11-18-2022 CNPN Telephone (PAIMER) MARIA T WYNNE ([id number]) 1995 F Date Time Provider Department 11/18/22 BEBE MCKENNA During your visit today, we recorded the following information about you: Neeru Jacques RN 11/18/2022 11:21 AM Signed Patient just had IV ketamine infusion on 11/07/22. She is on the schedule for 11/21/22. This is only 13 days since last infusion. Should patient be rescheduled to be 4 weeks from last infusion? Yesterday patient asked for increase at next infusion. 11/21/22 appointment was scheduled from her original infusion date of 10/24/22 which patient cancelled and rescheduled to 11/01/22 and was unable to get infusion due to not being able to get IV started and then scheduled on 11/07/22 and received infusion that day. Please advise. ANA Walker David Paul, MD 11/18/2022 11:26 AM Signed Yes, 4 weeks in between Neeru Jacques RN 11/18/2022 1:00 PM Signed Called and spoke to patient and new appointment made for in 4 weeks. Neeru Jacques RN Allergies As of Date: 11/18/2022 Noted Allergy Reaction fragrance mix [Other] 12/14/2007 2 - Rash AMITIZA (LUBIPROSTONE) 01/28/2019 2 - Rash AMOXICILLIN 04/06/2005 2 - Rash CIPRO (CIPROFLOXACIN HCL) 02/11/2020 8 - GI Upset CLINDAMYCIN 04/12/2019 5 - Intolerance Comments: Her whole body felt hot and she had abdominal pain DOXYCYCLINE 06/25/2009 8 - GI Upset FLAGYL (METRONIDAZOLE HCL) 10/10/2011 8 - GI Upset Comments: Nausea. Able to tolerate with anti-emetics metal [Other] 04/06/2005 2 - Rash NAPROXEN 01/31/2012 8 - GI Upset Comments: Headache/GI upset Trish [Other] 04/06/2005 2 - Rash PENICILLINS 04/06/2005 4 - Hives SULFA (SULFONAMIDE ANTIBIOTICS) 05/18/2018 14 - Other: See Comments Comments: "It is like the flu x 10" SULFAMETHOXAZOLE-TRIME THOPRIM 12/06/2021 14 - Other: See Comments ULTRAM (TRAMADOL HCL) 10/10/2011 14 - Other: See Comments Comments: Headache seizure Date Reviewed: 11/08/2022 Reviewed by: Ella Johns Dent-A - Fully Assessed Reason for Visit: Ketamine infusion question [Other] Prescriptions as of 11/18/2022 - Phentermine HCl 15 mg capsule take 1 capsule daily IN THE MORNING ,for 30 days ,InstrMonth 1 , end OF meds on 12/20/2022] - hydroCHLOROthiazide 12.5 mg capsule Take 12.5 mg by mouth once daily. - plecanatide (TRULANCE) 3 mg tablet Take 1 tablet (3 mg) by mouth once daily. - acyclovir (ZOVIRAX) 400 mg tablet TAKE 2 TABLETS BY MOUTH DAILY - pregabalin (LYRICA) 100 mg capsule Take 100 mg by mouth three times daily. - MYRA FE 04/01, 28, 1 mg-20 mcg (21)/75 mg (7) per tablet Take 1 tablet by mouth once daily. - ezetimibe (ZETIA) 10 mg tablet Take 10 mg by mouth once daily. - albuterol HFA (PROVENTIL HFA, VENTOLIN HFA) 90 mcg/actuation inhaler INHALE 2 PUFFS EVERY 6 HOURS NEEDED FOR WHEEZING - SYMBICORT 80-4.5 mcg/actuation inhaler INHALE 2 PUFFS BY MOUTH and into the lungs TWICE DAILY - hydrOXYzine HCl (ATARAX) 50 mg tablet TAKE 1 TO 2 TABLETS FOUR TIMES DAILY NEEDED FOR ANXIETY - omeprazole magnesium (PRILOSEC ORAL) Take by mouth. - polyethylene glycol 3350 (MIRALAX) 17 gram/dose powder Take 17 g by mouth three times daily as needed for constipation. Dissolve dose in 4 - 8 ounces of liquid and take as directed. - cloNIDine HCl (CATAPRES) 0.1 mg tablet (Prior Auth#:[id number]) - methocarbamol (ROBAXIN) 750 mg tablet Take 750 mg by mouth four times daily as needed. - acetaminophen (TYLENOL ARTHRITIS PAIN ORAL) Take by mouth three times daily as needed. - ibuprofen (MOTRIN) 600 mg tablet Take 1 tablet by mouth every 6 hours as needed. FOR PAIN. 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] 01/09/2007 04/17/2017 Contact dermatitis and other eczema, due to uns*01/09/2007 04/17/2017 Unspecified pruritic disorder [L29.9] 01/09/2007 04/17/2017 Insect bite NEC [W57.XXXA] 12/17/2007 03/03/2011 Scabies [B86] 12/17/2007 03/03/2011 Other atopic dermatitis and related conditions *12/17/2007 Seborrheic dermatitis, unspecified [L21.9] 03/28/2008 12/16/2014 Ganglion, unspecified [M67.40] 03/28/2008 04/17/2017 Bipolar disorder, unspecified (HCC) [F31.9] 06/10/2008 04/17/2017 Migraines [G43.909] 08/20/2013 Anxiety [F41.9] 10/23/2014 03/04/2021 Back ache [M54.9] 10/23/2014 03/04/2021 Bipolar affe (more content not included)... [facility] 11-17-2022 [facility] Telephone (SHAUNNA) MARIA T WYNNE ([id number]) 1995 F Date Time Provider Department 11/17/22 BEBE MCKENNA During your visit today, we recorded the following information about you: Cori Lamb RN 11/17/2022 11:02 AM Signed Pt sent a [employer] message, please review, she asked for increase with next infusion. Therapy plan attached Cori Lamb RN November 17, 2022 11:01 AM Allergies As of Date: 11/17/2022 Noted Allergy Reaction fragrance mix [Other] 12/14/2007 2 - Rash AMITIZA (LUBIPROSTONE) 01/28/2019 2 - Rash AMOXICILLIN 04/06/2005 2 - Rash CIPRO (CIPROFLOXACIN HCL) 02/11/2020 8 - GI Upset CLINDAMYCIN 04/12/2019 5 - Intolerance Comments: Her whole body felt hot and she had abdominal pain DOXYCYCLINE 06/25/2009 8 - GI Upset FLAGYL (METRONIDAZOLE HCL) 10/10/2011 8 - GI Upset Comments: Nausea. Able to tolerate with anti-emetics metal [Other] 04/06/2005 2 - Rash NAPROXEN 01/31/2012 8 - GI Upset Comments: Headache/GI upset Trish [Other] 04/06/2005 2 - Rash PENICILLINS 04/06/2005 4 - Hives SULFA (SULFONAMIDE ANTIBIOTICS) 05/18/2018 14 - Other: See Comments Comments: "It is like the flu x 10" SULFAMETHOXAZOLE-TRIME THOPRIM 12/06/2021 14 - Other: See Comments ULTRAM (TRAMADOL HCL) 10/10/2011 14 - Other: See Comments Comments: Headache seizure Date Reviewed: 11/08/2022 Reviewed by: Ella Johns Dent-A - Fully Assessed Reason for Visit: requesting increase with next infusion 11/21 [Other] Prescriptions as of 11/17/2022 - Phentermine HCl 15 mg capsule take 1 capsule daily IN THE MORNING ,for 30 days ,InstrMonth , end OF meds on 12/20/2022] - hydroCHLOROthiazide 12.5 mg capsule Take 12.5 mg by mouth once daily. - plecanatide (TRULANCE) 3 mg tablet Take 1 tablet (3 mg) by mouth once daily. - acyclovir (ZOVIRAX) 400 mg tablet TAKE 2 TABLETS BY MOUTH DAILY - pregabalin (LYRICA) 100 mg capsule Take 100 mg by mouth three times daily. - MYRA FE 04/01, 28, 1 mg-20 mcg (21)/75 mg (7) per tablet Take 1 tablet by mouth once daily. - ezetimibe (ZETIA) 10 mg tablet Take 10 mg by mouth once daily. - albuterol HFA (PROVENTIL HFA, VENTOLIN HFA) 90 mcg/actuation inhaler INHALE 2 PUFFS EVERY 6 HOURS NEEDED FOR WHEEZING - SYMBICORT 80-4.5 mcg/actuation inhaler INHALE 2 PUFFS BY MOUTH and into the lungs TWICE DAILY - hydrOXYzine HCl (ATARAX) 50 mg tablet TAKE 1 TO 2 TABLETS FOUR TIMES DAILY NEEDED FOR ANXIETY - omeprazole magnesium (PRILOSEC ORAL) Take by mouth. - polyethylene glycol 3350 (MIRALAX) 17 gram/dose powder Take 17 g by mouth three times daily as needed for constipation. Dissolve dose in 4 - 8 ounces of liquid and take as directed. - cloNIDine HCl (CATAPRES) 0.1 mg tablet (Prior Auth#:[id number]) - methocarbamol (ROBAXIN) 750 mg tablet Take 750 mg by mouth four times daily as needed. - acetaminophen (TYLENOL ARTHRITIS PAIN ORAL) Take by mouth three times daily as needed. - ibuprofen (MOTRIN) 600 mg tablet Take 1 tablet by mouth every 6 hours as needed. FOR PAIN. 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] 01/09/2007 04/17/2017 Contact dermatitis and other eczema, due to uns*01/09/2007 04/17/2017 Unspecified pruritic disorder [L29.9] 01/09/2007 04/17/2017 Insect bite NEC [W57.XXXA] 12/17/2007 03/03/2011 Scabies [B86] 12/17/2007 03/03/2011 Other atopic dermatitis and related conditions *12/17/2007 Seborrheic dermatitis, unspecified [L21.9] 03/28/2008 12/16/2014 Ganglion, unspecified [M67.40] 03/28/2008 04/17/2017 Bipolar disorder, unspecified (HCC) [F31.9] 06/10/2008 04/17/2017 Migraines [G43.909] 08/20/2013 Anxiety [F41.9] 10/23/2014 03/04/2021 Back ache [M54.9] 10/23/2014 03/04/2021 Bipolar affective disorder (HCC) [F31.9] 12/16/2014 03/04/2021 Opioid dependence with withdrawal (HCC) [F11.23]12/16/2014 Fissure in ano [K60.2] 07/29/2015 Opioid abuse (HCC) [F11.10] 08/13/2015 03/04/2021 TMJ (dislocation of temporomandibular joint) [S*08/13/2015 History of suicidal ideation [Z86.59] 04/06/2017 03/04/2021 History of herpes genitalis [Z86.19] 04/06/2017 Vitamin D deficiency [E55.9] 06/07/2018 03/15/2022 Chronic low back pain [M54.50, G89.29] 08/09/2018 Smoker [F17.200] 08/09/2018 Constipation [K59.00] Tobacco use [Z72.0] Drug abuse (HCC) [F19.10] 03/04/2021 Pelvic taiwo (more content not included)... Normal [facility] HCG ( test) Ql (U)o n 11-10-2022 Beta HCG ( test) Ql (U) [id number] [facility] Interpretation and review of laboratory results Normal [facility] NEGATIVE QC Pass [facility] POSITIVE QC Pass [facility] Preg Test, Ur Negative [facility]-08-2022 CNOV Office Visit (DMFMER ) MARIA T WYNNE ([id number]) 1995 F Date Time Provider Department 11/08/22 1:00 PM DAVID DENT DMFMER During your visit today, we recorded the following information about you: Pulse Blood pressure 75/minute 125/83 David Dent DDS 11/09/2022 7:36 AM Signed Dental Comprehensive Examination HISTORY OF PRESENT ILLNESS: 27 year old female patient presents for initial exam. Pain status: Yes, patient reports pain on all of her dentition. Patient reports to the dental clinic after seeing multiple dentists before that have, patient stated, messed up her teeth. She reports that her entire dentition is in pain. Patient states that she wants implants or full mouth crowns; however she understands that her insurance will not pay for crowns unless it is an anterior tooth and is root canal treated. Patient also reports having severe TMD, to which surgery is her only left option at this point. Patient reports wearing a "day appliance" for the mandible which helps with her TMD. Patient denies any dry mouth. Patient states that her last dentist had full mouth maxillary crowns planned to which they had a wax up/try-in and was planned for mandibular RPD. Patient interested in sedation dentistry as she reports difficulty getting anesthetized due to an "epinephrine allergy." Patient reports a burning sensation on her tongue and discomfort generalized throughout her gingiva. Patient reports to dental hearing and speech assistant that she does not want to be seen by residents and wants the most qualified person working on her. Patient informed that only residents work at this clinic. Clinical Examination: Extraoral Findings: Swelling: no Lymphadenopathy: no Asymmetry: no TMJ: Clinically sound but painful to palpation. Opening >35 mm. All MOM painful to palpation. Intraoral Soft Tissues: Tongue: Slightly atrophic dorsal papillae. Buccal mucosa: WNL Pharynx: WNL Palate: WNL Floor of mouth: WNL Severely frothy gingiva and xerostomia. No signs of yang. Mild gingival erythema/inflammation. Dentition: Caries or defective congregational: #14 D caries; defective restorations: #4 D, #10 MDL, #11 MDL Pain to percussion: All maxillary/mandibular teeth painful to percussion Mobility: None Diastemata present in the maxillary anterior. 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 Clinical Exam: Polypharmacy-induced xerostomia; unstable occlusion/occlusal pathology; Muscle myalgia of all MOM; generalized good previous dental restorations with few defective restorations; all teeth are sensitive to touch (even endodontically treated teeth when touching enamel); dental anxiety. Patient interested in full mouth rehabilitation. Intraoral photos uploaded. TREATMENT: No treatment rendered. PLAN: It is unknown if the patient is able to be treated in this outpaitent setting, and is unlikely given the previous hx given by the patient. We will attempt to clean and see how the patient takes the cleaning. Patient will most likely be referred to prosthodontics specialty given the history and additional care needed in regards to occlusal rehabilitation and TMD. Patient encouraged to use Oral Balance Gel for xerostomia. Patient does not think she has dry mouth, clinical evaluation says otherwise. I have discussed the risks, benefits, complications, and alternatives of proceeding with treatment at this time. I have also discussed other options with Maria T Wynne. She understands the above issues and is agreeable to proceeding as planned. Next DDS visit: Prophy and determine treatment or refer. Assisted by: Ella Supervised by: Dr. Salter, Dr. Pranav Dent, S Emmett Salter DMD 11/09/2022 8:03 PM Signed I have seen and evaluated the patient and discussed the case with the resident physician. I agree with the assessment and plan as documented in the resident?s note. Emmett Salter DMD Allergies As of Date: 11/08/2022 Noted Allergy Reaction fragrance mix [Other] 12/14/2007 2 - Rash AMITIZA (LUBIPROSTONE) 01/28 (more content not included)... Normal [facility] CNOVon 11-07-2022 [facility] Office Visit (SHAUNNA ) MARIA T WYNNE ([id number]) 1995 F Date Time Provider Department 11/07/22 10:30 AM NURSE PAIN INFUSION [facility] During your visit today, we recorded the following information about you: Pulse Respiration Blood pressure Weight 75/minute 13/minute 118/73 88.5 kg Bebe Mckenna MD 12/13/2022 10:38 AM Signed PROCEDURE: Ketamine infusion Therapy DATE OF SERVICE: November 07, 2022 PREPROCEDURE DIAGNOSES: Neuropathic pain, chronic pain syndrome NO APPARENT CONTRAINDICATIONS TO IV KETAMINE ANESTHESIA: IV ketamine, Versed COMPLICATIONS: None CONSENT: The risks and benefits of ketamine infusion therapy were discussed with the patient. The patient verbalizes understanding and wishes to proceed with the infusion therapy at this time for control of intractable pain. Informed consent was thereby obtained. DESCRIPTION OF PROCEDURE: After written informed consent was obtained as above, the patient was taken to the operating room. Standard ASA monitors were applied. O2 was also applied. The patient received 3 mg of IV Versed by the prior to initiation of the ketamine infusion. The initial verbal analogue scale at the beginning of the infusion was 10 on a scale from 0 to 10. The patient's pain scale was monitored for the next 15-minute increments. The ketamine infusion was initiated at a dose of 1.5 mg/kg (total 135 mg) was infused over 30 minutes. The patient was monitored closely during the entire infusion. The patient's vital signs remained stable throughout the postoperative period. They were given written instructions to follow up at [facility] Pain Dept. in the next 4 to 6 weeks for further plan of care and overall evaluation. COMMENTS: Repeat in 4 weeks Louise Mata RN 11/07/2022 3:05 PM Signed 1100 Patient here for ketamine infusion. Reports pain 7/10 today. States she had 0% improvement after last infusion, 09/26. She has been NPO x 6 hours[address] Mom will drive patient home post infusion. ANA Messina Jannel, RN 11/07/2022 3:06 PM Signed 1330 Ketamine complete. Discharged via wheelchair to Mom in private vehicle. Louise Mata RN Allergies As of Date: 11/07/2022 Noted Allergy Reaction fragrance mix [Other] 12/14/2007 2 - Rash AMITIZA (LUBIPROSTONE) 01/28/2019 2 - Rash AMOXICILLIN 04/06/2005 2 - Rash CIPRO (CIPROFLOXACIN HCL) 02/11/2020 8 - GI Upset CLINDAMYCIN 04/12/2019 5 - Intolerance Comments: Her whole body felt hot and she had abdominal pain DOXYCYCLINE 06/25/2009 8 - GI Upset FLAGYL (METRONIDAZOLE HCL) 10/10/2011 8 - GI Upset Comments: Nausea. Able to tolerate with anti-emetics metal [Other] 04/06/2005 2 - Rash NAPROXEN 01/31/2012 8 - GI Upset Comments: Headache/GI upset Trish [Other] 04/06/2005 2 - Rash PENICILLINS 04/06/2005 4 - Hives SULFA (SULFONAMIDE ANTIBIOTICS) 05/18/2018 14 - Other: See Comments Comments: "It is like the flu x 10" SULFAMETHOXAZOLE-TRIME THOPRIM 12/06/2021 14 - Other: See Comments DELETED: ULTRAM (TRAMADOL HCL) 10/10/2011 14 - Other: See Comments Comments: Headache seizure Date Reviewed: 11/07/2022 Reviewed by: Bebe Mckenna MD - Fully Assessed Primary Visit Diagnosis:Chronic bilateral low back pain with bilateral sciatica [M54.42, M54.41, G89.29] Order(s):BCN NURSING COMMUNICATION [[id number]] Order #: [id number]: 1 BCN NURSING COMMUNICATION [[id number]] Order #: [id number]: 1 BCN NURSING COMMUNICATION [[id number]] Order #: [id number]: 1 BCN NURSING COMMUNICATION [[id number]] Order #: [id number]: 1 [] ondansetron (PF) 8 mg injection (ZOFRAN)Disp: Rfl: [] midazolam (PF) 3 mg injection (VERSED)Disp: Rfl: [] NaCl 0.9% iv bolus 250 mLDisp: Rfl: [] ketamine 135 mg in NaCl 0.9% 50 mL (KETALAR)Disp: Rfl: Prescriptions as of 12/13/2022 - iv contrast (will be provided with radiology test) MRI sacral plexus Inj, intravenously, once for 1 dose. No IV access, insert saline lock prior to the beginning of sedation, infusion, injection of imaging exam. Discontinue saline lock post exam. If Pt. has a central line or IVAD, may access for administration according to line specific nursing protocol. Once exam is complete flush line and de-access according to line specific nursing protocol in the MR contrast administration guidelines link. - baclofen 10 mg lidocaine 50 mg vaginal suppository (CPD) Use 1 Suppository vaginally daily at bedtime. Unwrap and insert as directed. - bisacodyl EC (DULCOLAX, BISACODYL,) 5 mg EC tablet Take 1 tablet by mouth once daily for 14 days. for constipation. - polyethylene glycol 3350 (MIRALAX) 17 gram/dose powder Take 17 g by mouth three times daily as needed for constipation. Dissolve dose in 4 - 8 ounces of liquid and take as directed. - hydroCHLOROthiazide 12.5 mg capsule Take 12.5 mg by mouth once daily. - acyclovir (ZOVIRA (more content not included)... Normal [facility] CNOVon 11-01-2022 CNOV Office Visit (PAIXUAN ) MARIA T WYNNE ([id number]) 1995 F Date Time Provider Department 11/01/22 2:00 PM [facility]URSE [facility] During your visit today, we recorded the following information about you: Louise Mata RN 11/01/2022 4:39 PM Signed Several unsuccessful attempts to gain IV access by four nurses today, including RN from IV team. Patient expressed frustration with staff's inability to gain access. Herminia from IV team recommends bringing ultrasound machine with patient's next planned infusion. Dr Mckenna aware. Louise Mata RN Allergies As of Date: 11/01/2022 Noted Allergy Reaction fragrance mix [Other] 12/14/2007 2 - Rash AMITIZA (LUBIPROSTONE) 01/28/2019 2 - Rash AMOXICILLIN 04/06/2005 2 - Rash CIPRO (CIPROFLOXACIN HCL) 02/11/2020 8 - GI Upset CLINDAMYCIN 04/12/2019 5 - Intolerance Comments: Her whole body felt hot and she had abdominal pain DOXYCYCLINE 06/25/2009 8 - GI Upset FLAGYL (METRONIDAZOLE HCL) 10/10/2011 8 - GI Upset Comments: Nausea. Able to tolerate with anti-emetics metal [Other] 04/06/2005 2 - Rash NAPROXEN 01/31/2012 8 - GI Upset Comments: Headache/GI upset Trish [Other] 04/06/2005 2 - Rash PENICILLINS 04/06/2005 4 - Hives SULFA (SULFONAMIDE ANTIBIOTICS) 05/18/2018 14 - Other: See Comments Comments: "It is like the flu x 10" SULFAMETHOXAZOLE-TRIME THOPRIM 12/06/2021 14 - Other: See Comments DELETED: ULTRAM (TRAMADOL HCL) 10/10/2011 14 - Other: See Comments Comments: Headache seizure Date Reviewed: 10/06/2022 Reviewed by: Aline Wen APRN.MORTARMAN - Fully Assessed Primary Visit Diagnosis:Chronic bilateral low back pain with bilateral sciatica [M54.42, M54.41, G89.29] Order(s):ondansetron (PF) 8 mg injection (ZOFRAN)Disp: Rfl: prochlorperazine 5 mg injection (COMPAZINE)Disp: Rfl: promethazine 25 mg tab(s) (PHENERGAN)Disp: Rfl: [] keTORolac 15 mg injection (Toradol)Disp: Rfl: [] ondansetron (PF) 8 mg injection (ZOFRAN)Disp: Rfl: [] midazolam (PF) 3 mg injection (VERSED)Disp: Rfl: [] NaCl 0.9% iv bolus 250 mLDisp: Rfl: [] ketamine 135 mg in NaCl 0.9% 50 mL (KETALAR)Disp: Rfl: NaCl 0.9% iv infusionDisp: Rfl: diphenhydrAMINE 50 mg injection (BENADRYL)Disp: Rfl: hydrocortisone sodium succinate (PF) 100 mg injection (Solu-CORTEF)Disp: Rfl: EPINEPHrine 1 mg/mL (1 mL) 0.3 mg injectionDisp: Rfl: sodium chloride 0.9 % (flush) 10-20 mL (BD POSIFLUSH)Disp: Rfl: heparin 100 unit/mL 500 Units injectionDisp: Rfl: sodium chloride 0.9 % (flush) 10-20 mL (BD POSIFLUSH)Disp: Rfl: BCN NURSING COMMUNICATION [] Order #: [id number]: 1 BCN NURSING COMMUNICATION [] Order #: [id number]: 1 BCN NURSING COMMUNICATION [] Order #: [id number]: 1 O2 - SPECIFY RATE AND ROUTE [[id number]] Order #: [id number]: 1 BCN NURSING COMMUNICATION [] Order #: [id number]: 1 BCN NURSING COMMUNICATION [[id number]] Order #: [id number]: 1 STANDING BCN NURSING COMMUNICATION [[id number]] Order #: [id number]: 1 STANDING BCN NURSING COMMUNICATION [[id number]] Order #: [id number]: 1 STANDING BCN NURSING COMMUNICATION [[id number]] Order #: [id number]: 1 STANDING Prescriptions as of 12/13/2022 - iv contrast (will be provided with radiology test) MRI sacral plexus Inj, intravenously, once for 1 dose. No IV access, insert saline lock prior to the beginning of sedation, infusion, injection of imaging exam. Discontinue saline lock post exam. If Pt. has a central line or IVAD, may access for administration according to line specific nursing protocol. Once exam is complete flush line and de-access according to line specific nursing protocol in the MR contrast administration guidelines link. - baclofen 10 mg lidocaine 50 mg vaginal suppository (CPD) Use 1 Suppository vaginally daily at bedtime. Unwrap and insert as directed. - bisacodyl EC (DULCOLAX, BISACODYL,) 5 mg EC tablet Take 1 tablet by mouth once daily for 14 days. for constipation. - polyethylene glycol 3350 (MIRALAX) 17 gram/dose powder Take 17 g by mouth three times daily as needed for constipation. Dissolve dose in 4 - 8 ounces of liquid and take as directed. - hydroCHLOROthiazide 12.5 mg capsule Take 12.5 mg by mouth once daily. - acyclovir (ZOVIRAX) 400 mg tablet TAKE 2 TABLETS BY MOUTH DAILY - pregabalin (LYRICA) 100 mg capsule Take 100 mg by mouth three times daily. - MYRA FE 04/01, 28, 1 mg-20 mcg (21)/75 mg (7) per tablet Take 1 tablet by mouth once daily. - ezetimibe (ZETIA) 10 mg tablet Take 10 mg by mouth once daily. - SYMBICORT 80-4.5 mcg/actuation inhaler INHALE 2 PUFFS BY MOUTH and into the lungs TWICE DAILY - hydrOXYzine HCl (ATARAX) 50 mg tablet TAKE 1 TO 2 TABLETS FOUR TIMES DAILY NEEDED FOR ANXIETY - omeprazole magnesium (PRILOSEC ORAL) Take by mouth. - cloNIDine HCl (CATAPRES) 0.1 mg tablet (Prior Auth#:0 (more content not included)... Normal [facility] SURGICAL PATHOLOGYOrdered By : Cj Vázquez on 10-04-2022 Case Report Surgical Pathology Report Case: [id number] Authorizing Provider: Leah Al DO Collected: 09/29/2022 02:02 PM Ordering Location: Ambulatory Surgery Received: 09/29/2022 11:11 PM Pathologist: Cj Vázquez MD, PhD Specimens: A) - STOMACH BIOPSY, r/o hpylori B) - ESOPHAGUS MID BIOPSY, r/o EOE [facility] Work Phone: FINAL DIAGNOSIS g8peuLEaBWKgrUTaTZTy Ml vixzQdHQUghAZgX2Aauruy RHqlNX6yLS0hsYzwhEWzmS VxGVTvVhSbm7hrq791pLWl s9dkIZWQtttlqEl0vOegK9 3wx9Z2FuovB71pqPLgIHK6 OTBtXCHzuTRxIKWdLLN2UZ ZreAJpK5ruXVBgQM7ygesy FJplPCpoPEJjvQR1IZWygL RlG8SeFVAlJKvgDPJuelc3 RiVxLk7fsCEbyEozCZmkFA GaIXXgSZvkXKDbBvJxVU3d H3HlmCTtlAtiKpihaTU5Mi xwYXIgLUFudHJhbCBtdWNv e2Mml2v7lKGmOMMpuPa6MM PgRVB1rc5gVMDwvY7pwUNf JZ9DflAPUeKusEnswopux8 5zvg78dOxbGHKxoIAldq4w qWVyUHVtwhCDRvDYh60qtP QhtGKuFB0qDDqrHfmbsWV8 IiilHLAwEKTpnUExw5XpBU VyfRDiAYqbtF4qi1s7fEJf YXJlIGludHJhZXBpdGhlbG fjkOXzs1Svcs6ugUacwaYn kXNsfE1pIA6TECTbOVUkLY DqJIMqdXt2DGNjiVNtI3Db LlxwYXIgLVNlcGFyYXRlIG LdYXsbRM31TO3hTAkuk9Ld uREiRV57uuKnOEX1rZDyqO Gtn1ZnVUctrNbipzRfC6Hp zbBgK5dyoyyrOHQlsBghnA ndX5NtctfwddGiHTHbg84m cGFydCBBLlxwYXJ9 [facility] Work Phone: Gross Description l1srvYYaZTJdrOMTEHX1 MD WcQT7ywOzpuEi3kOdrATMy cyX3oXRsPDjyl8nbAEY0u0 eskbFRUonuFVNvZA6mYBqk FILzHA2eRzRcEWQvLlYeFC BhcGVydzEyMjQwXHBhcGVy nLH1ILXiFL3bkersMMeqED epLMLwmzF7PLCxlSFcN3Bu UYFdMA0xseqmMMM9UGLYHp clMv9kqJKfuTctExHjWlGz YXJzZXQwXGZuaWwgQXJpYW x0aD2CBqssTDZ7FUZBQbbl SkqndQzjd2XtcSIrOCVtSK xcaWQgNTEwMDAgXFxkYiBP FhWrRhHbVfUcMcU9ReEwQD r9LPxfXqFFUZfcJpN6BeWc JOv9THoyFRkfjUEtDGZhKO WhRBAfVWyiapL8s7jxXONk qYTeYVD7HKiya4otIXdgTE J3IJXzYbAsJMOaES4VCpDo KIE8UJB0BBcvPhL7FXi0DD WXUjNfXtBtWjR6GBT9WXNc OAw5YRz4MXsPPsTbSQm9RL M8HTR9JUW7PGo8VfHsAVDl MiBcXHNzIDMgXFxmbCBcXG 8ouQdrFTZoAP9KERQcPZqv KQEhUmCcHN9tL4MMXUIRSY FOTU0IM4uzcFGcS9bvzMGw CR1TAQYgalNlEGtvhOoljY 6fxQRtZ3fkByIcPqbroDfm TmVzdERvYzEgDQpcbHRycG FyXGxpbjBccmluMFxzYTMw WJQbcTBLq6ErFVLGXnjomd ZwYHBlG8LpsuEhNYehEDGl yu8nsYelAUFlHGRugAp4vQ DnIRJdpXJsBVFbq3MtcHRr ZSJka4O0MPPmb5X4UCOqC0 fhXJphoMdwWfW2vhUjMlOl hINuXeSuwGLuIyRwU07qTL MurKSnzSmql3VvbRc4fMSg ENqyWT2uBOVoBPDjUOU1WC 9FZmjjsIlsWtUdlWNfSaC5 PHClxNStPAI6KI9plGuoBR UpOOy9XNdcYJZhP8ZcV6Su XFxzZyBcXGlkIDUxMDAyIF atQECcU6CCGVPoUjxfGDkq CHIrTUa9CJa9PI7VNyZzLN HiUVL7CmWxEZUqPRe0AObk OR1QBLDzGoQ8ZlFmNTDkKK W8DFG7OFzxeOStWDfyu3Nb UeQfLVVmKGujiiK7WRIblx Wly5SnZFDuLOBxI1tlBrEl NSANClxmczIyIEIuIEVTT1 BIQUdVUyBNSUQgQklPUFNZ QYBrkmEPZmvkXPPtZJ2EZJ YoWGbeOGo1ceUbIVLtJtYh JANhU59gz9NWk0TgSL2ZCK t6fhSzfvgfnL3cJLTkdhTy q5OkPWqivAyvQCZeDjOkZC pcZnMyMCBSZWNlaXZlZCBp zxJdf2EsZVwcrgZawyAcmE EmsJtfrPJhoVgpG5WsGS6w ZTAgdvbzn28rkCF1vKGvpU CtFNwmuzEnKYXvqwifjH3m XM6oJCafOT9jTGrhUW1zUB QzFqCQm0DctNz0WBC9Uh6g jLMbOQOafaKfooOtT5Aho4 S1bVNnXSztRAQpJFurr9Nt TJRwkOHCj2HfDM6IUQUusy MUQyzTPwKTmDv5CSGpRTOq FBBmDTl7SUbbFU6kfDFyUG 6NZZPsthZNSdmfa4UlROW7 HU0qdzK8aC1lLTAypoJpgc 5gVFAiwMAKeYF8EZqjsgXp S4lgdywnPOY8PSZoEQL4H0 noEKEYusHsCJNGzXE7BQdw tgEpKD2QVHI7YBk8EXIfyo KTIlczTKSnJQTdnKUGo3Is MCANClxlcGljTmVzdERvYz M5VMOuaEEvZQL1QT6xyHxj RHAyN5JpV8ZivzQ1FRWkmr CYHvjeHHDiCC6OULImIcIs DQp[address] [facility] Work Phone: Performing Lab y3igdPUgVXVbtVOfQvFg MD AiPBFvi0whCOGyqTDtGpBc MzNcZnRuYmpcdWMxXGRlZm Whd9nty866tIGcf5eoNTMc AlT8yQVgOQQicITaZ320WW XeRKvdx1ara9FvATVgpSZu r7G7OROUesqzaAe4tKblK5 0ek0P7PifoT8pkTDOvOHNt O2VzJP7dRDUyRec0OBQ6ZO O6FTMiLFWbE2RrRT3yWSRc gJOlEWv1c0jumKlqHYTrSQ J0o0soIYxuqbQpLD5ioi5j wVo7d7doypBlJHJiJXXisB WRQENtP1McfIylVv3ffLu2 qDyhCwsaJJK4Tof7WE8fbv 15ayc4oAasMKSchcpvBjD0 ZKtfFZOtopciOCa9IVqeCS LoiHM3XIBgdONtJ2CtLRwc UE4zxpc7HAO5MFnwUIUdGc S6AYCwuUPnKYWeaVfpVQje g986MRK9IkAmMP0pZ4Kwy0 L3jI6mbDVtRKCwiSGvAnMa PMSaqu8oeYWhWJreg9OrLG N1knJ4zCMcyEGuUFJbUN98 Gtphd2HmGtotf4IoO91iwF E6NTbnr9aqHY7wBjI3rlMm FHxwn6thdB9cSzH2KWelTS 6iJD8tMWBbwQ4gmhcoQGFy YnJkcmhlYWRccGdicmRyZm 2weGfmGIQ9JCoyD1tgfX0t WuS2EBfgB8dlhB2tAOz4MC ldmMO1UOCevI2fMX3pvjyv u9fcWXzaNGjmWUAtgqL4zi XnOZHebIGgH2VywX2wRZVr NF7ptkwni5jzQZS2SEfvEY ZrTJR0NhZmOYHpf4Mcodm3 StTrw0ArqACbBVhiJ21vn0 22DOPsxvFkU6dypWOqzwio hDSmqlftEXhcucE2SMOqRH BsYWluXGYxXGZzMjJcbGFu ZzEwMzNcaGljaFxmMVxkYm SwYKBiRJboP3urYaBhNsXz UnBXjNHrlz7rnYrmMVarbA AhlGAxvAG6pC5dVONcdcPg bx6eTTEbzNCXnGN7IRyemw ApX7zcnlggDXY1VRCbGEU0 R4eoZAGWjeFcEXXoRHPnbF GpTKWZTHT3OKB2OBRyAQKX RZRjRPB2SYC7RBMoTAIeaE FyXHBhclxwYXJkXHBsYWlu XFToMYIgRcAheHgeeP1iPq GlWnPtLhirJO0iSPXlS0rb yOAhFQBvBNLjF5iaWnBdmB 9jaFxmMVxjZjJcZnMyMlxs fIOweGNZQZQndjH8h2J1WE xwbGFpblxmMVxmczIyXGxh bzndFAJyQOrcU5fuRqQrLI RcbHcsIGruf2XqQTUpXLGs KgYeTUoxEMT4o7G9QLogzH WzihLHFcYICO9qxXXjboaz PH6MJuwqRON6 [facility] Work Phone: [facility] Work Phone: US ABDOMEN LIMITEDon [phone] US ABDOMEN LIMITED ORIGINAL EXAMINATION: RIGHT UPPER QUADRANT ULTRASOUND 10/03/2022 10:48 am COMPARISON: None. HISTORY: ORDERING SYSTEM PROVIDED HISTORY: Reason for Exam: Elevated liver enzymes FINDINGS: LIVER: The liver demonstrates normal echogenicity without evidence of intrahepatic biliary ductal dilatation. BILIARY SYSTEM: Gallbladder is unremarkable without evidence of pericholecystic fluid, wall thickening or stones. Negative sonographic Schneider's sign. Common bile duct is within normal limits measuring 3 mm. RIGHT KIDNEY: The right kidney is grossly unremarkable without evidence of hydronephrosis. PANCREAS: Visualized portions of the pancreas are unremarkable. OTHER: No evidence of right upper quadrant ascites. IMPRESSION: Unremarkable right upper quadrant ultrasound. 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 Refer to note in patient chart for documentation of history and physical. Referring Physician: Leah Al MD (Referring MD), Rowan Barajas (Referring MD) Medicines: Monitored Anesthesia Care Complications: No immediate complications. Requesting Provider: Procedure: Pre-Anesthesia Assessment: - Prior to the procedure, a History and Physical was performed, and patient medications and allergies were reviewed. The patient is competent. The risks and benefits of the procedure and the sedation options and risks were discussed with the patient. All questions were answered and informed consent was obtained. Patient identification and proposed procedure were verified by the physician and the nurse in the pre-procedure area in the procedure room. Mental Status Examination: alert and oriented. Airway Examination: normal oropharyngeal airway and neck mobility. Respiratory Examination: clear to auscultation. CV Examination: normal. Prophylactic Antibiotics: The patient does not require prophylactic antibiotics. Prior Anticoagulants: The patient has taken no anticoagulant or antiplatelet agents. ASA Grade Assessment: III - A patient with severe systemic disease. After reviewing the risks and benefits, the patient was deemed in satisfactory condition to undergo the procedure. The anesthesia plan was to use monitored anesthesia care (MAC). Immediately prior to administration of medications, the patient was re-assessed for adequacy to receive sedatives. The heart rate, respiratory rate, oxygen saturations, blood pressure, adequacy of pulmonary ventilation, and response to care were monitored throughout the procedure. The physical status of the patient was re-assessed after the procedure. After obtaining informed consent, the endoscope was passed under direct vision. Throughout the procedure, the patient's blood pressure, pulse, and oxygen saturations were monitored continuously. The Endoscope was introduced through the mouth, and advanced to the second part of duodenum. I was present and participated during the entire procedure, including non-doran portions, and during the administration and monitoring of Moderate Sedation. The upper GI endoscopy was accomplished without difficulty. The patient tolerated the procedure well. Moderate Sedation: MAC anesthesia was administered by the anesthesia team. Findings: The examined duodenum was normal. Scattered mild inflammation characterized by congestion (edema) and erythema was found in the gastric antrum. Biopsies were taken with a cold forceps for histology. Verification of patient identification for the specimen was done by the nurse and military pay technician using the patient's name, date and medical record number. The pathology specimen was placed into Bottle Number 1. Estimated blood loss was minimal. The cardia and gastric fundus were normal on retroflexion. The examined esophagus was normal. Biopsies were taken with a cold forceps for histology from the midesophagus to evaluate for EoE. The pathology specimen was placed into Bottle Number 2. Estimated blood loss was minimal. Impression: - Normal examined duodenum. - Chronic gastritis. Biopsied. - Normal esophagus. Biopsied. Recommendation: (more content not included)... PROVATION [facility] EGD Study observation Narrat iveon 09-29-2022 Radiology Study observation (narrative) [facility] XR ABDOMEN 3V KUB W/OBLIQUES on 09-28-[address] [facility] CNOVon 09-26-2022 CNOV Office Visit (SHAUNNA ) MARIA T WYNNE ([id number]) 1995 F Date Time Provider Department 09/26/22 2:00 PM NURSE PAIN INFUSION EPI DON During your visit today, we recorded the following information about you: Pulse Respiration Blood pressure Last Period 84/minute 20/minute 132/84 09/16/22 Katalina Tripp RN 09/26/2022 2:44 PM Signed 1415 Pt states that she has been NPO x8 hrs and that her boyfriend, Yahir, will be available upon discharge to be her chair car driver. Pt states that she had minimal, if any improvement with last infusion and had no side effects. Pt acknowledges today's dosage increase. ANA Chaparro MD 09/27/2022 9:38 AM Signed PROCEDURE: Ketamine infusion Therapy DATE OF SERVICE: September 26, 2022 PREPROCEDURE DIAGNOSES: Neuropathic pain, chronic pain syndrome NO APPARENT CONTRAINDICATIONS TO IV KETAMINE ANESTHESIA: IV ketamine, Versed COMPLICATIONS: None CONSENT: The risks and benefits of ketamine infusion therapy were discussed with the patient. The patient verbalizes understanding and wishes to proceed with the infusion therapy at this time for control of intractable pain. Informed consent was thereby obtained. DESCRIPTION OF PROCEDURE: After written informed consent was obtained as above, the patient was taken to the operating room. Standard ASA monitors were applied. O2 was also applied. The patient received 3 mg of IV Versed by the prior to initiation of the ketamine infusion. The initial verbal analogue scale at the beginning of the infusion was 8 on a scale from 0 to 10. The patient's pain scale was monitored for the next 15-minute increments. The ketamine infusion was initiated at a dose of 1.25 mg/kg (total 110 mg) was infused over 30 minutes. The patient was monitored closely during the entire infusion. The patient's vital signs remained stable throughout the postoperative period. They were given written instructions to follow up at [facility]. in the next 4 to 6 weeks for further plan of care and overall evaluation. COMMENTS: Repeat in 4 weeks Louise Mata RN 09/26/2022 4:32 PM Signed Ketamine infusion complete. Discharged via wheelchair to private vehicle. Allergies As of Date: 09/26/2022 Noted Allergy Reaction fragrance mix [Other] 12/14/2007 2 - Rash AMITIZA (LUBIPROSTONE) 01/28/2019 2 - Rash AMOXICILLIN 04/06/2005 2 - Rash CIPRO (CIPROFLOXACIN HCL) 02/11/2020 8 - GI Upset CLINDAMYCIN 04/12/2019 5 - Intolerance Comments: Her whole body felt hot and she had abdominal pain DOXYCYCLINE 06/25/2009 8 - GI Upset FLAGYL (METRONIDAZOLE HCL) 10/10/2011 8 - GI Upset Comments: Nausea. Able to tolerate with anti-emetics metal [Other] 04/06/2005 2 - Rash NAPROXEN 01/31/2012 8 - GI Upset Comments: Headache/GI upset Trish [Other] 04/06/2005 2 - Rash PENICILLINS 04/06/2005 4 - Hives SULFA (SULFONAMIDE ANTIBIOTICS) 05/18/2018 14 - Other: See Comments Comments: "It is like the flu x 10" SULFAMETHOXAZOLE-TRIME THOPRIM 12/06/2021 14 - Other: See Comments ULTRAM (TRAMADOL HCL) 10/10/2011 14 - Other: See Comments Comments: Headache seizure Date Reviewed: 09/26/2022 Reviewed by: Katalina Tripp RN - Fully Assessed Primary Visit Diagnosis:Chronic bilateral low back pain with bilateral sciatica [M54.42, M54.41, G89.29] Order(s):[] ketamine 110 mg in NaCl 0.9% 50 mL (KETALAR)Disp: Rfl: BCN NURSING COMMUNICATION [[id number]] Order #: [id number]: 1 BCN NURSING COMMUNICATION [[id number]] Order #: [id number]: 1 BCN NURSING COMMUNICATION [[id number]] Order #: [id number]: 1 BCN NURSING COMMUNICATION [[id number]] Order #: [id number]: 1 [] ondansetron (PF) 8 mg injection (ZOFRAN)Disp: Rfl: [] midazolam (PF) 3 mg injection (VERSED)Disp: Rfl: [] NaCl 0.9% iv bolus 250 mLDisp: Rfl: Prescriptions as of 09/27/2022 - Phentermine HCl 15 mg capsule take 1 capsule daily IN THE MORNING ,for 30 days ,InstrMonth 1 , end OF meds on 12/20/2022] - hydroCHLOROthiazide 12.5 mg capsule Take 12.5 mg by mouth once daily. - plecanatide (TRULANCE) 3 mg tablet Take 1 tablet (3 mg) by mouth once daily. - acyclovir (ZOVIRAX) 400 mg tablet TAKE 2 TABLETS BY MOUTH DAILY - pregabalin (LYRICA) 100 mg capsule Take 100 mg by mouth three times daily. - MYRA FE 04/01, 28, 1 mg-20 mcg (21)/75 mg (7) per tablet Take 1 tablet by mouth once daily. - ezetimibe (ZETIA) 10 mg tablet Take 10 mg by mouth once daily. - albuterol HFA (PROVENTIL HFA, VENTOLIN HFA) 90 mcg/actuation inhaler INHALE 2 PUFFS EVERY 6 HOURS NEEDED FOR WHEEZING - SYMBICORT 80-4.5 mcg/actuation inhaler INHALE 2 PUFFS BY MOUTH and into the lungs TWICE DAILY - hydrOXYzine HCl (ATARAX) 50 mg tablet TAKE 1 TO 2 TABLETS FOUR TIMES DAILY NEEDED FOR ANXIETY - omeprazole magnesium (PRILOSEC ORAL) Take by mouth. - polyethylene glycol 3350 (MIRALAX) 17 gr (more content not included)... [facility] 09-23-2022 [facility] Telephone (SHAUNNA) MARIA T WYNNE ([id number]) 1995 F Date Time Provider Department 09/23/22 BEBE MCKENNA During your visit today, we recorded the following information about you: Neeru Jacques RN 09/23/2022 1:31 PM Signed Lidocaine therapy plan needs to be discontinued and Ketamine therapy plan needs updated. ANA Walker MD 09/23/2022 3:09 PM Signed Done. Allergies As of Date: 09/23/2022 Noted Allergy Reaction fragrance mix [Other] 12/14/2007 2 - Rash AMITIZA (LUBIPROSTONE) 01/28/2019 2 - Rash AMOXICILLIN 04/06/2005 2 - Rash CIPRO (CIPROFLOXACIN HCL) 02/11/2020 8 - GI Upset CLINDAMYCIN 04/12/2019 5 - Intolerance Comments: Her whole body felt hot and she had abdominal pain DOXYCYCLINE 06/25/2009 8 - GI Upset FLAGYL (METRONIDAZOLE HCL) 10/10/2011 8 - GI Upset Comments: Nausea. Able to tolerate with anti-emetics metal [Other] 04/06/2005 2 - Rash NAPROXEN 01/31/2012 8 - GI Upset Comments: Headache/GI upset Trish [Other] 04/06/2005 2 - Rash PENICILLINS 04/06/2005 4 - Hives SULFA (SULFONAMIDE ANTIBIOTICS) 05/18/2018 14 - Other: See Comments Comments: "It is like the flu x 10" SULFAMETHOXAZOLE-TRIME THOPRIM 12/06/2021 14 - Other: See Comments ULTRAM (TRAMADOL HCL) 10/10/2011 14 - Other: See Comments Comments: Headache seizure Date Reviewed: 09/22/2022 Reviewed by: Ashley Campa LPN - Fully Assessed Reason for Visit: therapy plan needs updated [Other] Prescriptions as of 09/23/2022 - Phentermine HCl 15 mg capsule take 1 capsule daily IN THE MORNING ,for 30 days ,InstrMon, end OF meds on 12/20/2022] - hydroCHLOROthiazide 12.5 mg capsule Take 12.5 mg by mouth once daily. - plecanatide (TRULANCE) 3 mg tablet Take 1 tablet (3 mg) by mouth once daily. - acyclovir (ZOVIRAX) 400 mg tablet TAKE 2 TABLETS BY MOUTH DAILY - pregabalin (LYRICA) 100 mg capsule Take 100 mg by mouth three times daily. - MYRA FE 04/01, 28, 1 mg-20 mcg (21)/75 mg (7) per tablet Take 1 tablet by mouth once daily. - ezetimibe (ZETIA) 10 mg tablet Take 10 mg by mouth once daily. - albuterol HFA (PROVENTIL HFA, VENTOLIN HFA) 90 mcg/actuation inhaler INHALE 2 PUFFS EVERY 6 HOURS NEEDED FOR WHEEZING - SYMBICORT 80-4.5 mcg/actuation inhaler INHALE 2 PUFFS BY MOUTH and into the lungs TWICE DAILY - hydrOXYzine HCl (ATARAX) 50 mg tablet TAKE 1 TO 2 TABLETS FOUR TIMES DAILY NEEDED FOR ANXIETY - omeprazole magnesium (PRILOSEC ORAL) Take by mouth. - polyethylene glycol 3350 (MIRALAX) 17 gram/dose powder Take 17 g by mouth three times daily as needed for constipation. Dissolve dose in 4 - 8 ounces of liquid and take as directed. - cloNIDine HCl (CATAPRES) 0.1 mg tablet (Prior Auth#:[id number]) - methocarbamol (ROBAXIN) 750 mg tablet Take 750 mg by mouth four times daily as needed. - acetaminophen (TYLENOL ARTHRITIS PAIN ORAL) Take by mouth three times daily as needed. - ibuprofen (MOTRIN) 600 mg tablet Take 1 tablet by mouth every 6 hours as needed. FOR PAIN. 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] 01/09/2007 04/17/2017 Contact dermatitis and other eczema, due to uns*01/09/2007 04/17/2017 Unspecified pruritic disorder [L29.9] 01/09/2007 04/17/2017 Insect bite NEC [W57.XXXA] 12/17/2007 03/03/2011 Scabies [B86] 12/17/2007 03/03/2011 Other atopic dermatitis and related conditions *12/17/2007 Seborrheic dermatitis, unspecified [L21.9] 03/28/2008 12/16/2014 Ganglion, unspecified [M67.40] 03/28/2008 04/17/2017 Bipolar disorder, unspecified (HCC) [F31.9] 06/10/2008 04/17/2017 Migraines [G43.909] 08/20/2013 Anxiety [F41.9] 10/23/2014 03/04/2021 Back ache [M54.9] 10/23/2014 03/04/2021 Bipolar affective disorder (HCC) [F31.9] 12/16/2014 03/04/2021 Opioid dependence with withdrawal (HCC) [F11.23]12/16/2014 Fissure in ano [K60.2] 07/29/2015 Opioid abuse (HCC) [F11.10] 08/13/2015 03/04/2021 TMJ (dislocation of temporomandibular joint) [S*08/13/2015 History of suicidal ideation [Z86.59] 04/06/2017 03/04/2021 History of herpes genitalis [Z86.19] 04/06/2017 Vitamin D deficiency [E55.9] 06/07/2018 03/15/2022 Chronic low back pain [M54.50, G89.29] 08/09/2018 Smoker [F17.200] 08/09/2018 Constipation [K59.00] Tobacco use [Z72.0] Drug abuse (HCC) [F19.10] 03/04/2021 Pelvic pain in female [R10.2] 03/16/2021 Other chronic pain [G89.29] 05/17/2022 Radiculopathy, lumbar region [M54.16] 05/17/2022 Bilateral hip pain [M25.551, M25.552] 06/16/2022 Neck pain [M54.2] 06/16/2022 Encounter Status:Closed by NEERU JACQUES [facility] Office Visit (SHAUNNA ) MARIA T WYNNE ([id number]) 1995 F Date Time Provider Department 08/29/22 2:00 PM [facility] During your visit today, we recorded the following information about you: Pulse Respiration Blood pressure Weight 78/minute 14/minute 112/80 87.9 kg Bebe Mckenna MD 08/29/2022 4:11 PM Signed PROCEDURE: Ketamine infusion Therapy DATE OF SERVICE: August 29, 2022 PREPROCEDURE DIAGNOSES: Neuropathic pain, chronic pain syndrome NO APPARENT CONTRAINDICATIONS TO IV KETAMINE ANESTHESIA: IV ketamine, Versed COMPLICATIONS: None CONSENT: The risks and benefits of ketamine infusion therapy were discussed with the patient. The patient verbalizes understanding and wishes to proceed with the infusion therapy at this time for control of intractable pain. Informed consent was thereby obtained. DESCRIPTION OF PROCEDURE: After written informed consent was obtained as above, the patient was taken to the operating room. Standard ASA monitors were applied. O2 was also applied. The patient received 3 mg of IV Versed by the prior to initiation of the ketamine infusion. The initial verbal analogue scale at the beginning of the infusion was 8 on a scale from 0 to 10. The patient's pain scale was monitored for the next 15-minute increments. The ketamine infusion was initiated at a dose of 1 mg/kg (total 85 mg) was infused over 30 minutes. The patient was monitored closely during the entire infusion. The patient's vital signs remained stable throughout the postoperative period. They were given written instructions to follow up at [facility]. in the next 4 to 6 weeks for further plan of care and overall evaluation. COMMENTS: Repeat in 4 weeks Louise Mata RN 08/29/2022 3:38 PM Signed Patient presents for repeat ketamine infusion. She reports no benefit after recent infusion 08/01/22. She is agreeable to increased dosage. Pt acknowledges NPO for minimum 6 hours and states that her boyfriend will be available to roller picker at time of discharge. ANA Messina RN 08/29/2022 4:11 PM Signed Pt discharged to home via private vehicle with her boyfriend. Milka Riggins RN Allergies As of Date: 08/29/2022 Noted Allergy Reaction fragrance mix [Other] 12/14/2007 2 - Rash AMITIZA (LUBIPROSTONE) 01/28/2019 2 - Rash AMOXICILLIN 04/06/2005 2 - Rash CIPRO (CIPROFLOXACIN HCL) 02/11/2020 8 - GI Upset CLINDAMYCIN 04/12/2019 5 - Intolerance Comments: Her whole body felt hot and she had abdominal pain DOXYCYCLINE 06/25/2009 8 - GI Upset FLAGYL (METRONIDAZOLE HCL) 10/10/2011 8 - GI Upset Comments: Nausea. Able to tolerate with anti-emetics metal [Other] 04/06/2005 2 - Rash NAPROXEN 01/31/2012 8 - GI Upset Comments: Headache/GI upset Trish [Other] 04/06/2005 2 - Rash PENICILLINS 04/06/2005 4 - Hives SULFA (SULFONAMIDE ANTIBIOTICS) 05/18/2018 14 - Other: See Comments Comments: "It is like the flu x 10" SULFAMETHOXAZOLE-TRIME THOPRIM 12/06/2021 14 - Other: See Comments ULTRAM (TRAMADOL HCL) 10/10/2011 14 - Other: See Comments Comments: Headache seizure Date Reviewed: 08/29/2022 Reviewed by: Milka Riggins, ANA - Fully Assessed Primary Visit Diagnosis:Chronic bilateral low back pain with bilateral sciatica [M54.42, M54.41, G89.29] Order(s):[] midazolam (PF) 3 mg injection (VERSED)Disp: Rfl: [] ketamine 85 mg in NaCl 0.9% 50 mL (KETALAR)Disp: Rfl: [facility] NURSING COMMUNICATION [[id number]] Order #: [id number]: 1 [facility]SING COMMUNICATION [] Order #: [id number]: 1 [facility]URSING COMMUNICATION [] Order #: [id number]: 1 [facility]URSING COMMUNICATION [] Order #: [id number]: 1 [] ondansetron (PF) 8 mg injection (ZOFRAN)Disp: Rfl: [] NaCl 0.9% iv bolus 250 mLDisp: Rfl: Prescriptions as of 08/29/2022 - hydroCHLOROthiazide 12.5 mg capsule Take 12.5 mg by mouth once daily. - plecanatide (TRULANCE) 3 mg tablet Take 1 tablet (3 mg) by mouth once daily. - acyclovir (ZOVIRAX) 400 mg tablet TAKE 2 TABLETS BY MOUTH DAILY - pregabalin (LYRICA) 100 mg capsule Take 100 mg by mouth three times daily. - MYRA FE /, 28, 1 mg-20 mcg (21)/75 mg (7) per tablet Take 1 tablet by mouth once daily. - ezetimibe (ZETIA) 10 mg tablet Take 10 mg by mouth once daily. - albuterol HFA (PROVENTIL HFA, VENTOLIN HFA) 90 mcg/actuation inhaler INHALE 2 PUFFS EVERY 6 HOURS NEEDED FOR WHEEZING - SYMBICORT 80-4.5 mcg/actuation inhaler INHALE 2 PUFFS BY MOUTH and into the lungs TWICE DAILY - hydrOXYzine HCl (ATARAX) 50 mg tablet TAKE 1 TO 2 TABLETS FOUR TIMES DAILY NEEDED FOR ANXIETY - omeprazole magnesium (PRILOSEC ORAL) Take by mouth. - polyethylene glycol 3350 (MIRALAX) 17 gram/dose powder Take 17 g by mouth three times daily as needed for constipation. Dissolve dose in 4 - 8 ounces of liquid and t (more content not included)... Normal [facility] MRI CERVICAL SPINE WO IVCONo n 08-11-[address] [facility] XR SACRUM/COCCYX 3V AP/LATon 08-11-[address] [facility] CNOVon 08-01-2022 [facility] Office Visit (PAIMER ) MARIA T WYNNE ([id number]) 1995 F Date Time Provider Department 08/01/22 2:30 PM NURSE PAIN INFUSION EPI DON During your visit today, we recorded the following information about you: Pulse Respiration Blood pressure Weight 82/minute 15/minute 128/68 86.5 kg Milka Riggins RN 08/01/2022 3:56 PM Addendum Pt presents for ketamine infusion #1 after having had three lidocaine infusions that were ineffective. Pt acknowledges NPO status for a minimum of 6 hours, and states that her fiance will be available to take her home at time of discharge. Pt states that she was given an order by Dr. Green at [facility] for evaluation of the sacral area. She has not yet had it done. ANA Braxton MD 08/01/2022 5:19 PM Signed PROCEDURE: Ketamine infusion Therapy DATE OF SERVICE: August 01, 2022 PREPROCEDURE DIAGNOSES: CPS, Neuropathic Pain NO APPARENT CONTRAINDICATIONS TO IV KETAMINE ANESTHESIA: IV ketamine, Versed COMPLICATIONS: none CONSENT: The risks and benefits of ketamine infusion therapy were discussed with the patient. The patient verbalizes understanding and wishes to proceed with the infusion therapy at this time for control of intractable pain. Informed consent was thereby obtained. DESCRIPTION OF PROCEDURE: After written informed consent was obtained as above, the patient was taken to the operating room. Standard ASA monitors were applied. O2 was also applied. The patient received 2 mg of IV Versed by the prior to initiation of the ketamine infusion. The initial verbal analogue scale at the beginning of the infusion was 9 on a scale from 0 to 10. The patient's pain scale was monitored for the next 15-minute increments. The ketamine infusion was initiated at a dose of 0.5 mg/kg (total 45 mg) was infused over 30 minutes. The patient was monitored closely during the entire infusion. The patient's vital signs remained stable throughout the postoperative period. They were given written instructions to follow up at [facility] in the next 4 to 6 weeks for further plan of care and overall evaluation. COMMENTS: repeat in 4 wweeks Katalina Tripp RN 08/01/2022 5:19 PM Signed 1635 Pt alert and oriented x3; pt to BR via wheelchair per myself. Pt discharged to home via wheelchair per myself to private vehicle driven by pt's fiance'. Pt acknowledges to contact [facility] with any updates, questions, or concerns. Katalina Tripp RN Allergies As of Date: 08/01/2022 Noted Allergy Reaction fragrance mix [Other] 12/14/2007 2 - Rash AMITIZA (LUBIPROSTONE) 01/28/2019 2 - Rash AMOXICILLIN 04/06/2005 2 - Rash CIPRO (CIPROFLOXACIN HCL) 02/11/2020 8 - GI Upset CLINDAMYCIN 04/12/2019 5 - Intolerance Comments: Her whole body felt hot and she had abdominal pain DOXYCYCLINE 06/25/2009 8 - GI Upset FLAGYL (METRONIDAZOLE HCL) 10/10/2011 8 - GI Upset Comments: Nausea. Able to tolerate with anti-emetics metal [Other] 04/06/2005 2 - Rash NAPROXEN 01/31/2012 8 - GI Upset Comments: Headache/GI upset Trish [Other] 04/06/2005 2 - Rash PENICILLINS 04/06/2005 4 - Hives SULFA (SULFONAMIDE ANTIBIOTICS) 05/18/2018 14 - Other: See Comments Comments: "It is like the flu x 10" SULFAMETHOXAZOLE-TRIME THOPRIM 12/06/2021 14 - Other: See Comments ULTRAM (TRAMADOL HCL) 10/10/2011 14 - Other: See Comments Comments: Headache seizure Date Reviewed: 08/01/2022 Reviewed by: Milka Riggins RN - Fully Assessed Primary Visit Diagnosis:Chronic bilateral low back pain with bilateral sciatica [M54.42, M54.41, G89.29] Order(s):[facility]SING COMMUNICATION [[id number]] Order #: [id number]: 1 [facility]SING COMMUNICATION [] Order #: [id number]: 1 [facility]URSING COMMUNICATION [] Order #: [id number]: 1 [facility]URSING COMMUNICATION [] Order #: [id number]: 1 [] ondansetron (PF) 8 mg injection (ZOFRAN)Disp: Rfl: [] midazolam 2 mg injection (VERSED)Disp: Rfl: [] NaCl 0.9% iv bolus 250 mLDisp: Rfl: [] ketamine 45 mg in NaCl 0.9% 50 mL (KETALAR)Disp: Rfl: Prescriptions as of 08/01/2022 - acyclovir (ZOVIRAX) 400 mg tablet TAKE 2 TABLETS BY MOUTH DAILY - pregabalin (LYRICA) 100 mg capsule Take 100 mg by mouth three times daily. - MYRA FE , 1 mg-20 mcg (21)/75 mg (7) per tablet Take 1 tablet by mouth once daily. - ezetimibe (ZETIA) 10 mg tablet Take 10 mg by mouth once daily. - albuterol HFA (PROVENTIL HFA, VENTOLIN HFA) 90 mcg/actuation inhaler INHALE 2 PUFFS EVERY 6 HOURS NEEDED FOR WHEEZING - SYMBICORT 80-4.5 mcg/actuation inhaler INHALE 2 PUFFS BY MOUTH and into the lungs TWICE DAILY - hydrOXYzine HCl (ATARAX) 50 mg tablet TAKE 1 TO 2 TABLETS FOUR TIMES DAILY NEEDED FOR ANXIETY - omeprazole magnesium (PRILOSEC ORAL) Take by mouth. - polyethylene glycol 3350 (MIRALAX) 17 gra (more content not included)... [facility] 07-28-2022 JOSE GUADALUPE Telephone (SHAUNNA) MARIA T WYNNE Edward ([id number]) 1995 F Date Time Provider Department 07/28/22 CAMERON MÁRQUEZ During your visit today, we recorded the following information about you: Cori Lamb RN 07/28/2022 10:44 AM Signed Pt states 08/01 she is scheduled for infusion and is asking if she can change time by 30 min she has an emergency she needs to tend to and does not want to miss the appt entirely, I spoke with Naomi Nolan and she referenced 07/25 that she called pt and canceled the appt d/t ineffectiveness of lidocaine and pt needing an appt to move forward with ketamine, pt states she was never notified of this appt being canceled, she also states that she has already had the ketamine converstation with Dr Mckenna, she also has had a conversation with Dr Mckenna that she does not want to see Aric for office visits anymore, the last visit happed because she was advised at her infusion appt that it was best to keep her scheduled appt, pt would like to have the infusion on Monday, ketamine, and she wants her next office visit to be with Dr Mckenna, please advise Cori Lamb RN July 28, 2022 10:43 AM Bebe Mckenna MD 07/28/2022 10:57 AM Signed OK to do so Milka Riggins RN 07/28/2022 2:31 PM Signed As noted in previous documentation, a message was left for pt on 07/25/22 (at phone number [phone]) regarding cancelling the 08/01/22 infusion appt. It was advised by Aric that Ketamine would need to be discussed at an office visit before a decision was made to recommend that treatment. I was uncertain if that would be accomplished prior to 08/01/22, nor was I certain that she wanted to have ketamine; the documentation was unclear. The appt 08/01/22 was cancelled to save her a phone call if she wasn't interested in ketamine, however the appt is still available. If Dr. Mckenna has previously spoken with this pt regarding ketamine infusion, and feels it is an appropriate treatment to recommend, the appt can be rescheduled. She can arrive for the 2:00pm appt as late as 2:30 on that day. The therapy plan information for ketamine will need to be entered by Dr. Mckenna by noon on 07/29/22 in order for the medicaiton to be prepared for the 08/01/22 appt. ANA Braxton MD 07/28/2022 2:42 PM Signed Please call the patient to verify that indeed she wants IV ketamine infusion. If there is no history of any of the following: Uncontrolled hypertension, cardiac dysrhythmias, increased intracranial pressure, pheochromocytoma, schizophrenia, psychosis, and the patient is not , and she wishes to proceed, then please let me know and I will place orders for ketamine infusion. Please let Naomi know. Cori Lamb RN 07/28/2022 3:38 PM Signed Pt states the lidocaine did not provide adequate benefit and was discussed next step would be ketamine, so she would like Ketamine. Pt denies hypertension, cardiac dysrhythmias, increase cranial pressure, pheochromocytoma, schizophrenia, psychosis and the pt is not . Pt wishes to procede with Ketamine. I informed pt of the availability noted below and once we have the order a ion exchange operator will call her Cori Lamb RN July 28, 2022 3:38 PM Milka Riggins RN 07/28/2022 3:45 PM Signed Appt for ketamine scheduled on 08/01/22 @ 2:30pm. Please enter therapy plan information by noon on 07/29/22. Bebe Mckenna MD 07/28/2022 4:54 PM Signed Done Allergies As of Date: 07/28/2022 Noted Allergy Reaction fragrance mix [Other] 12/14/2007 2 - Rash AMITIZA (LUBIPROSTONE) 01/28/2019 2 - Rash AMOXICILLIN 04/06/2005 2 - Rash CIPRO (CIPROFLOXACIN HCL) 02/11/2020 8 - GI Upset CLINDAMYCIN 04/12/2019 5 - Intolerance Comments: Her whole body felt hot and she had abdominal pain DOXYCYCLINE 06/25/2009 8 - GI Upset FLAGYL (METRONIDAZOLE HCL) 10/10/2011 8 - GI Upset Comments: Nausea. Able to tolerate with anti-emetics metal [Other] 04/06/2005 2 - Rash NAPROXEN 01/31/2012 8 - GI Upset Comments: Headache/GI upset Trish [Other] 04/06/2005 2 - Rash PENICILLINS 04/06/2005 4 - Hives SULFA (SULFONAMIDE ANTIBIOTICS) 05/18/2018 14 - Other: See Comments Comments: "It is like the flu x 10" SULFAMETHOXAZOLE-TRIME THOPRIM 12/06/2021 14 - Other: See Comments ULTRAM (TRAMADOL HCL) 10/10/2011 14 - Other: See Comments Comments: Headache seizure Date Reviewed: 07/14/2022 Reviewed by: Cameron Márquez, REVIEW ENGINEER.MORTARMAN - Fully Assessed Reason for Visit: Trimmer Climber - Other [3602] inquiring about upcoming infusion [Other] Prescriptions as of 07/28/2022 - acyclovir (ZOVIRAX) 400 mg tablet TAKE 2 TABLETS BY MOUTH DAILY - pregabalin (LYRICA) 100 mg capsule Take 100 mg by mouth three times daily. - MYRA FE 04/01, 28, 1 mg-20 mcg (21)/75 mg (7) per tablet Take 1 tablet by mouth once daily. - ezetimibe (ZETIA) 10 mg tablet Take 10 mg by mouth once (more content not included)... [facility] 07-25-2022 JOSE GUADALUPEN Telephone (SHAUNNA) MARIA T WYNNE ([id number]) 1995 F Date Time Provider Department 07/25/22 CAMERON MÁRQUEZ During your visit today, we recorded the following information about you: Milka Riggins RN 07/25/2022 10:48 AM Signed LM for pt that upcoming lidocaine infusion on 08/01/22 has been cancelled. If she would like to be considered for ketamine infusion, she needs to be scheduled for a distance health visit with Aric Márquez to discuss this treatment specifically. If this can be accomplished prior to 08/01/22, pt can be rescheduled on 08/01/22 for ketamine infusion. Milka Riggins RN Allergies As of Date: 07/25/2022 Noted Allergy Reaction fragrance mix [Other] 12/14/2007 2 - Rash AMITIZA (LUBIPROSTONE) 01/28/2019 2 - Rash AMOXICILLIN 04/06/2005 2 - Rash CIPRO (CIPROFLOXACIN HCL) 02/11/2020 8 - GI Upset CLINDAMYCIN 04/12/2019 5 - Intolerance Comments: Her whole body felt hot and she had abdominal pain DOXYCYCLINE 06/25/2009 8 - GI Upset FLAGYL (METRONIDAZOLE HCL) 10/10/2011 8 - GI Upset Comments: Nausea. Able to tolerate with anti-emetics metal [Other] 04/06/2005 2 - Rash NAPROXEN 01/31/2012 8 - GI Upset Comments: Headache/GI upset Trish [Other] 04/06/2005 2 - Rash PENICILLINS 04/06/2005 4 - Hives SULFA (SULFONAMIDE ANTIBIOTICS) 05/18/2018 14 - Other: See Comments Comments: "It is like the flu x 10" SULFAMETHOXAZOLE-TRIME THOPRIM 12/06/2021 14 - Other: See Comments ULTRAM (TRAMADOL HCL) 10/10/2011 14 - Other: See Comments Comments: Headache seizure Date Reviewed: 07/14/2022 Reviewed by: Cameron Márquez APRN.MORTARMAN - Fully Assessed Reason for Visit: Trimmer Climber - Other [3602] Prescriptions as of 07/28/2022 - acyclovir (ZOVIRAX) 400 mg tablet TAKE 2 TABLETS BY MOUTH DAILY - pregabalin (LYRICA) 100 mg capsule Take 100 mg by mouth three times daily. - MYRA FE 04/01, 28, 1 mg-20 mcg (21)/75 mg (7) per tablet Take 1 tablet by mouth once daily. - ezetimibe (ZETIA) 10 mg tablet Take 10 mg by mouth once daily. - albuterol HFA (PROVENTIL HFA, VENTOLIN HFA) 90 mcg/actuation inhaler INHALE 2 PUFFS EVERY 6 HOURS NEEDED FOR WHEEZING - SYMBICORT 80-4.5 mcg/actuation inhaler INHALE 2 PUFFS BY MOUTH and into the lungs TWICE DAILY - hydrOXYzine HCl (ATARAX) 50 mg tablet TAKE 1 TO 2 TABLETS FOUR TIMES DAILY NEEDED FOR ANXIETY - omeprazole magnesium (PRILOSEC ORAL) Take by mouth. - polyethylene glycol 3350 (MIRALAX) 17 gram/dose powder Take 17 g by mouth three times daily as needed for constipation. Dissolve dose in 4 - 8 ounces of liquid and take as directed. - cloNIDine HCl (CATAPRES) 0.1 mg tablet (Prior Auth#:[id number]) - methocarbamol (ROBAXIN) 750 mg tablet Take 750 mg by mouth four times daily as needed. - acetaminophen (TYLENOL ARTHRITIS PAIN ORAL) Take by mouth three times daily as needed. - ibuprofen (MOTRIN) 600 mg tablet Take 1 tablet by mouth every 6 hours as needed. FOR PAIN. 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] 01/09/2007 04/17/2017 Contact dermatitis and other eczema, due to uns*01/09/2007 04/17/2017 Unspecified pruritic disorder [L29.9] 01/09/2007 04/17/2017 Insect bite NEC [W57.XXXA] 12/17/2007 03/03/2011 Scabies [B86] 12/17/2007 03/03/2011 Other atopic dermatitis and related conditions *12/17/2007 Seborrheic dermatitis, unspecified [L21.9] 03/28/2008 12/16/2014 Ganglion, unspecified [M67.40] 03/28/2008 04/17/2017 Bipolar disorder, unspecified (HCC) [F31.9] 06/10/2008 04/17/2017 Migraines [G43.909] 08/20/2013 Anxiety [F41.9] 10/23/2014 03/04/2021 Back ache [M54.9] 10/23/2014 03/04/2021 Bipolar affective disorder (HCC) [F31.9] 12/16/2014 03/04/2021 Opioid dependence with withdrawal (HCC) [F11.23]12/16/2014 Fissure in ano [K60.2] 07/29/2015 Opioid abuse (HCC) [F11.10] 08/13/2015 03/04/2021 TMJ (dislocation of temporomandibular joint) [S*08/13/2015 History of suicidal ideation [Z86.59] 04/06/2017 03/04/2021 History of herpes genitalis [Z86.19] 04/06/2017 Vitamin D deficiency [E55.9] 06/07/2018 03/15/2022 Chronic low back pain [M54.50, G89.29] 08/09/2018 Smoker [F17.200] 08/09/2018 Constipation [K59.00] Tobacco use [Z72.0] Drug abuse (HCC) [F19.10] 03/04/2021 Pelvic pain in female [R10.2] 03/16/2021 Other chronic pain [G89.29] 05/17/2022 Radiculopathy, lumbar region [M54.16] 05/17/2022 Bilateral hip pain [M25.551, M25.552] 06/16/2022 Neck pain [M54.2] 06/16/2022 Encounter Status:Closed by MILKA RIGGINS on 07/28/22 [facility] 07-11-2022 JOSE GUADALUPEN Telephone (SHAUNNA) MARIA T WYNNE ([id number]) 1995 F Date Time Provider Department 07/11/22 BEBE MCKENNA During your visit today, we recorded the following information about you: Kristi Altamirano RN 07/11/2022 1:30 PM Signed Pt called to report that she had her lidocaine infusion on 07/04/22. She has not felt any benefit from the infusion. She stated that the day after she actually fell really bad. Pt would like to talk about changing medication. She has a follow up apt on 07/14/22 to further discuss. Kristi Altamirano RN July 11, 2022 1:29 PM Cameron Márquez APRN.MORTARMAN 07/11/2022 2:13 PM Signed If she suffered injury from falling she needs to seek healthcare for further evaluation. I will discuss further treatment options for her chronic pain at her net scheduled appointment. Kristi Altamirano RN 07/11/2022 2:18 PM Signed I apologize the first message was suppose to say she felt really bad. She did not have a fall. Pt will talk to you at your apt this week. Kristi Altamirano RN July 11, 2022 2:18 PM Cameron Márquez APRN.MORTARMAN 07/11/2022 2:42 PM Signed Ok thanks Allergies As of Date: 07/11/2022 Noted Allergy Reaction fragrance mix [Other] 12/14/2007 2 - Rash AMITIZA (LUBIPROSTONE) 01/28/2019 2 - Rash AMOXICILLIN 04/06/2005 2 - Rash CIPRO (CIPROFLOXACIN HCL) 02/11/2020 8 - GI Upset CLINDAMYCIN 04/12/2019 5 - Intolerance Comments: Her whole body felt hot and she had abdominal pain DOXYCYCLINE 06/25/2009 8 - GI Upset FLAGYL (METRONIDAZOLE HCL) 10/10/2011 8 - GI Upset Comments: Nausea. Able to tolerate with anti-emetics metal [Other] 04/06/2005 2 - Rash NAPROXEN 01/31/2012 8 - GI Upset Comments: Headache/GI upset Trish [Other] 04/06/2005 2 - Rash PENICILLINS 04/06/2005 4 - Hives SULFA (SULFONAMIDE ANTIBIOTICS) 05/18/2018 14 - Other: See Comments Comments: "It is like the flu x 10" SULFAMETHOXAZOLE-TRIME THOPRIM 12/06/2021 14 - Other: See Comments ULTRAM (TRAMADOL HCL) 10/10/2011 14 - Other: See Comments Comments: Headache seizure Date Reviewed: 07/04/2022 Reviewed by: Katalina Tripp RN - Fully Assessed Reason for Visit: Patient Update [1234] Prescriptions as of 07/11/2022 - acyclovir (ZOVIRAX) 400 mg tablet TAKE 2 TABLETS BY MOUTH DAILY - pregabalin (LYRICA) 100 mg capsule Take 100 mg by mouth three times daily. - MYRA FE 04/01, 28, 1 mg-20 mcg (21)/75 mg (7) per tablet Take 1 tablet by mouth once daily. - ezetimibe (ZETIA) 10 mg tablet Take 10 mg by mouth once daily. - albuterol HFA (PROVENTIL HFA, VENTOLIN HFA) 90 mcg/actuation inhaler INHALE 2 PUFFS EVERY 6 HOURS NEEDED FOR WHEEZING - SYMBICORT 80-4.5 mcg/actuation inhaler INHALE 2 PUFFS BY MOUTH and into the lungs TWICE DAILY - hydrOXYzine HCl (ATARAX) 50 mg tablet TAKE 1 TO 2 TABLETS FOUR TIMES DAILY NEEDED FOR ANXIETY - omeprazole magnesium (PRILOSEC ORAL) Take by mouth. - polyethylene glycol 3350 (MIRALAX) 17 gram/dose powder Take 17 g by mouth three times daily as needed for constipation. Dissolve dose in 4 - 8 ounces of liquid and take as directed. - cloNIDine HCl (CATAPRES) 0.1 mg tablet (Prior Auth#:[id number]) - methocarbamol (ROBAXIN) 750 mg tablet Take 750 mg by mouth four times daily as needed. - acetaminophen (TYLENOL ARTHRITIS PAIN ORAL) Take by mouth three times daily as needed. - ibuprofen (MOTRIN) 600 mg tablet Take 1 tablet by mouth every 6 hours as needed. FOR PAIN. 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] 01/09/2007 04/17/2017 Contact dermatitis and other eczema, due to uns*01/09/2007 04/17/2017 Unspecified pruritic disorder [L29.9] 01/09/2007 04/17/2017 Insect bite NEC [W57.XXXA] 12/17/2007 03/03/2011 Scabies [B86] 12/17/2007 03/03/2011 Other atopic dermatitis and related conditions *12/17/2007 Seborrheic dermatitis, unspecified [L21.9] 03/28/2008 12/16/2014 Ganglion, unspecified [M67.40] 03/28/2008 04/17/2017 Bipolar disorder, unspecified (HCC) [F31.9] 06/10/2008 04/17/2017 Migraines [G43.909] 08/20/2013 Anxiety [F41.9] 10/23/2014 03/04/2021 Back ache [M54.9] 10/23/2014 03/04/2021 Bipolar affective disorder (HCC) [F31.9] 12/16/2014 03/04/2021 Opioid dependence with withdrawal (HCC) [F11.23]12/16/2014 Fissure in ano [K60.2] 07/29/2015 Opioid abuse (HCC) [F11.10] 08/13/2015 03/04/2021 TMJ (dislocation of temporomandibular joint) [S*08/13/2015 History of suicidal ideation [Z86.59] 04/06/2017 03/04/2021 History of herpes genitalis [Z86.19] 04/06/2017 Vitamin D deficiency [E55.9] 06/07/2018 03/15/2022 Chronic low back pain [M54.50, G89.29] 08/09/2018 Smoker [F17.200] 08/09/2018 Constipation [K59.00] Tobacco use [Z72.0] Drug abuse (HCC) [F19.10] 03/04/2021 Pelvic pain in female [R10.2] 03/16/2021 Fibromyalgia [M79.7] 05/17/2022 Radiculopathy, lumbar region [M54.16] 05/17/2022 Bilateral hip pain [M25.551, M25.552] 06/16 (more content not included)... [facility] Mario 07-04-2022 [facility] Office Visit (SHAUNNA ) MARIA T WYNNE ([id number]) 1995 F Date Time Provider Department 07/04/22 2:00 PM [facility] During your visit today, we recorded the following information about you: Pulse Respiration Blood pressure Last Period 78/minute 15/minute 116/80 06/12/22 Bebe Mckenna MD 07/04/2022 4:51 PM Signed PROCEDURE: IV Lidocaine infusion Therapy DATE OF SERVICE: July 04, 2022 PREPROCEDURE DIAGNOSES: Neuropathic pain, chronic pain syndrome, insomnia. ANESTHESIA: IV Lidocaine, Versed COMPLICATIONS: None CONSENT: The risks and benefits of Lidocaine infusion therapy were discussed with the patient. The patient verbalizes understanding and wishes to proceed with the infusion therapy at this time for control of intractable pain. Informed consent was thereby obtained. DESCRIPTION OF PROCEDURE: After written informed consent was obtained as above, the patient was taken to the operating room. Standard ASA monitors were applied. O2 was applied as well.The patient received 4 mg of IV Versed by the prior to initiation of the Lidocaine infusion. The initial verbal analogue scale at the beginning of the infusion was 8 on a scale from 0 to 10. The patient's pain scale was monitored for the next 15-minute increments. VS were monitored throughout. A total of 150 mg of Lidocaine was given over 15 minutes. . Towards the end of the infusion, the patient stated that the verbal analogue scale was reduced down to 0 a on a scale from 0 to 10. The patient was then transferred to recovery for further monitoring. The patient's vital signs remained stable throughout the postoperative period. They were given written instructions to follow up at [facility] Pain Dept. in the next 4 to 6 weeks for further plan of care and overall evaluation. COMMENTS: Repeat in 4 weeks. Prn: CT or MRI of Bilateral SI Joint and ? Hips Katalina Tripp RN 07/04/2022 4:15 PM Signed 1420 Pt states that she has been NPO x6 hrs except for sips H2O. Pt states that she had no improvement with last infusion and no side effects, (pt states 1st infusion was more beneficial). Pt states that her mother is in car to be available as her chair car driver upon discharge. ANA Chaparro RN 07/04/2022 4:51 PM Signed 1635 Pt alert and oriented x3; pt to BR via wheelchair with assistance per myself. Pt discharged to home via wheelchair per myself to private vehicle driven by pt's mother. Pt acknowledges to contact [facility] with any updates, questions, or concerns. Katalina Tripp RN Allergies As of Date: 07/04/2022 Noted Allergy Reaction fragrance mix [Other] 12/14/2007 2 - Rash AMITIZA (LUBIPROSTONE) 01/28/2019 2 - Rash AMOXICILLIN 04/06/2005 2 - Rash CIPRO (CIPROFLOXACIN HCL) 02/11/2020 8 - GI Upset CLINDAMYCIN 04/12/2019 5 - Intolerance Comments: Her whole body felt hot and she had abdominal pain DOXYCYCLINE 06/25/2009 8 - GI Upset FLAGYL (METRONIDAZOLE HCL) 10/10/2011 8 - GI Upset Comments: Nausea. Able to tolerate with anti-emetics metal [Other] 04/06/2005 2 - Rash NAPROXEN 01/31/2012 8 - GI Upset Comments: Headache/GI upset Trish [Other] 04/06/2005 2 - Rash PENICILLINS 04/06/2005 4 - Hives SULFA (SULFONAMIDE ANTIBIOTICS) 05/18/2018 14 - Other: See Comments Comments: "It is like the flu x 10" SULFAMETHOXAZOLE-TRIME THOPRIM 12/06/2021 14 - Other: See Comments ULTRAM (TRAMADOL HCL) 10/10/2011 14 - Other: See Comments Comments: Headache seizure Date Reviewed: 07/04/2022 Reviewed by: Katalina Tripp RN - Fully Assessed Primary Visit Diagnosis:Chronic bilateral low back pain with bilateral sciatica [M54.42, M54.41, G89.29] Order(s):[] midazolam 4 mg injection (VERSED)Disp: Rfl: [] lidocaine (PF) 10 mg/mL (1 %) 150 mg injection (XYLOCAINE)Disp: Rfl: BCN NURSING COMMUNICATION [] Order #: [id number]: 1 N NURSING COMMUNICATION [] Order #: [id number]: 1 N NURSING COMMUNICATION [] Order #: [id number]: 1 N NURSING COMMUNICATION [] Order #: [id number]: 1 [] NaCl 0.9% iv flush bagDisp: Rfl: Prescriptions as of 07/04/2022 - acyclovir (ZOVIRAX) 400 mg tablet TAKE 2 TABLETS BY MOUTH DAILY - pregabalin (LYRICA) 100 mg capsule Take 100 mg by mouth three times daily. - MYRA FE 04/01, , 1 mg-20 mcg (21)/75 mg (7) per tablet Take 1 tablet by mouth once daily. - ezetimibe (ZETIA) 10 mg tablet Take 10 mg by mouth once daily. - albuterol HFA (PROVENTIL HFA, VENTOLIN HFA) 90 mcg/actuation inhaler INHALE 2 PUFFS EVERY 6 HOURS NEEDED FOR WHEEZING - SYMBICORT 80-4.5 mcg/actuation inhaler INHALE 2 PUFFS BY MOUTH and into the lungs TWICE DAILY - hydrOXYzine HCl (ATARAX) 50 mg tablet TAKE 1 TO 2 TABLETS FOUR TIMES DAILY NEEDED FOR ANXIETY - omeprazole magnesium (PRILOSEC ORAL) Take by mouth. - polyethylene glycol 3350 (WALLY (more content not included)... [facility] CNOVon 06-06-2022 CN Office Visit (PAIMER ) MARIA T WYNNE ([id number]) 1995 F Date Time Provider Department 06/06/22 2:00 PM [facility] During your visit today, we recorded the following information about you: Pulse Respiration Blood pressure 70/minute 15/minute 113/70 Bebe Mckenna MD 06/06/2022 3:34 PM Signed PROCEDURE: IV Lidocaine infusion Therapy DATE OF SERVICE: June 02, 2022 PREPROCEDURE DIAGNOSES: Chronic pain syndrome, neuropathic pain, insomnia ANESTHESIA: IV Lidocaine, Versed COMPLICATIONS: None CONSENT: The risks and benefits of Lidocaine infusion therapy were discussed with the patient. The patient verbalizes understanding and wishes to proceed with the infusion therapy at this time for control of intractable pain. Informed consent was thereby obtained. DESCRIPTION OF PROCEDURE: After written informed consent was obtained as above, the patient was taken to the operating room. Standard ASA monitors were applied. O2 was applied as well.The patient received 3 mg of IV Versed by the prior to initiation of the Lidocaine infusion. The initial verbal analogue scale at the beginning of the infusion was 8 on a scale from 0 to 10. The patient's pain scale was monitored for the next 15-minute increments. VS were monitored throughout. A total of 130 mg of Lidocaine was given over 15 minutes. . Towards the end of the infusion, the patient stated that the verbal analogue scale was reduced down to 4 a on a scale from 0 to 10. The patient was then transferred to recovery for further monitoring. The patient's vital signs remained stable throughout the postoperative period. They were given written instructions to follow up at [facility] Pain Dept. in the next 4 to 6 weeks for further plan of care and overall evaluation. COMMENTS: Repeat in 4 weeks. L-MRI pending prn: Ketamine infusion Milka Riggins RN 06/06/2022 2:25 PM Signed Pt presents for repeat lidocaine infusion. She reports minimal, if any benefit from infusion #1 on 05/09/22, and is agreeable to a higher dose today. Pt acknowledges NPO status for a minimum of 6 hours, and states that her Yahir huitron is available to take her home at time of discharge. ANA Braxton RN 06/06/2022 3:32 PM Signed Pt discharged to home via private vehicle with her Yah[employer] huitron. Milka Riggins RN Allergies As of Date: 06/06/2022 Noted Allergy Reaction fragrance mix [Other] 12/14/2007 2 - Rash AMITIZA (LUBIPROSTONE) 01/28/2019 2 - Rash AMOXICILLIN 04/06/2005 2 - Rash CIPRO (CIPROFLOXACIN HCL) 02/11/2020 8 - GI Upset CLINDAMYCIN 04/12/2019 5 - Intolerance Comments: Her whole body felt hot and she had abdominal pain DOXYCYCLINE 06/25/2009 8 - GI Upset FLAGYL (METRONIDAZOLE HCL) 10/10/2011 8 - GI Upset Comments: Nausea. Able to tolerate with anti-emetics metal [Other] 04/06/2005 2 - Rash NAPROXEN 01/31/2012 8 - GI Upset Comments: Headache/GI upset Trish [Other] 04/06/2005 2 - Rash PENICILLINS 04/06/2005 4 - Hives SULFA (SULFONAMIDE ANTIBIOTICS) 05/18/2018 14 - Other: See Comments Comments: "It is like the flu x 10" SULFAMETHOXAZOLE-TRIME THOPRIM 12/06/2021 14 - Other: See Comments ULTRAM (TRAMADOL HCL) 10/10/2011 14 - Other: See Comments Comments: Headache seizure Date Reviewed: 06/06/2022 Reviewed by: Milka Riggins, ANA - Fully Assessed Primary Visit Diagnosis:Chronic bilateral low back pain with bilateral sciatica [M54.42, M54.41, G89.29] Order(s):[] midazolam 3 mg injection (VERSED)Disp: Rfl: [] lidocaine (PF) 10 mg/mL (1 %) 130 mg injection (XYLOCAINE)Disp: Rfl: N NURSING COMMUNICATION [] Order #: [id number]: 1 N NURSING COMMUNICATION [] Order #: [id number]: 1 N NURSING COMMUNICATION [] Order #: [id number]: 1 [facility] NURSING COMMUNICATION [] Order #: [id number]: 1 [] NaCl 0.9% iv flush bagDisp: Rfl: Prescriptions as of 06/06/2022 - acyclovir (ZOVIRAX) 400 mg tablet TAKE 2 TABLETS BY MOUTH DAILY - pregabalin (LYRICA) 100 mg capsule Take 100 mg by mouth three times daily. - MYRA FE 04/01, , 1 mg-20 mcg (21)/75 mg (7) per tablet Take 1 tablet by mouth once daily. - ezetimibe (ZETIA) 10 mg tablet Take 10 mg by mouth once daily. - albuterol HFA (PROVENTIL HFA, VENTOLIN HFA) 90 mcg/actuation inhaler INHALE 2 PUFFS EVERY 6 HOURS NEEDED FOR WHEEZING - SYMBICORT 80-4.5 mcg/actuation inhaler INHALE 2 PUFFS BY MOUTH and into the lungs TWICE DAILY - hydrOXYzine HCl (ATARAX) 50 mg tablet TAKE 1 TO 2 TABLETS FOUR TIMES DAILY NEEDED FOR ANXIETY - omeprazole magnesium (PRILOSEC ORAL) Take by mouth. - polyethylene glycol 3350 (MIRALAX) 17 gram/dose powder Take 17 g by mouth three times daily as needed for constipation. Dissolve dose in 4 - 8 ounces of liquid and take as directed. - cloNIDine HCl (CATAPRES) 0.1 mg (more content not included)... [facility] SHERRELLMARIA T Edward ([id number]) 1995 F Date Time Provider Department 05/26/22 CAMERON MÁRQUEZ During your visit today, we recorded the following information about you: Cameron Márquez APRN.[facility] 05/26/2022 9:04 AM Signed Called and completed Peer to Peer for lumbar MRI. Authorization number is: [id number]. Please call and inform patient that peer to peer has been completed. Please give her the authorization number. She should be able to call and schedule this now with the authorization number. She is to contact the office if she is unable to make schedule this Lumbar MRI. Thanks! Micaela Telles RN 05/26/2022 9:17 AM Signed Detailed message left of all the information below. Micaela Telles RN May 26, 2022 9:17 AM Allergies As of Date: 05/26/2022 Noted Allergy Reaction fragrance mix [Other] 12/14/2007 2 - Rash AMITIZA (LUBIPROSTONE) 01/28/2019 2 - Rash AMOXICILLIN 04/06/2005 2 - Rash CIPRO (CIPROFLOXACIN HCL) 02/11/2020 8 - GI Upset CLINDAMYCIN 04/12/2019 5 - Intolerance Comments: Her whole body felt hot and she had abdominal pain DOXYCYCLINE 06/25/2009 8 - GI Upset FLAGYL (METRONIDAZOLE HCL) 10/10/2011 8 - GI Upset Comments: Nausea. Able to tolerate with anti-emetics metal [Other] 04/06/2005 2 - Rash NAPROXEN 01/31/2012 8 - GI Upset Comments: Headache/GI upset Trish [Other] 04/06/2005 2 - Rash PENICILLINS 04/06/2005 4 - Hives SULFA (SULFONAMIDE ANTIBIOTICS) 05/18/2018 14 - Other: See Comments Comments: "It is like the flu x 10" SULFAMETHOXAZOLE-TRIME THOPRIM 12/06/2021 14 - Other: See Comments ULTRAM (TRAMADOL HCL) 10/10/2011 14 - Other: See Comments Comments: Headache seizure Date Reviewed: 05/17/2022 Reviewed by: Cameron Márquez, ANUJA.MORTARMAN - Fully Assessed Reason for Visit: Patient Update [1234] Prescriptions as of 05/26/2022 - acyclovir (ZOVIRAX) 400 mg tablet TAKE 2 TABLETS BY MOUTH DAILY - pregabalin (LYRICA) 100 mg capsule Take 100 mg by mouth three times daily. - MYRA FE 04/01, 28, 1 mg-20 mcg (21)/75 mg (7) per tablet Take 1 tablet by mouth once daily. - ezetimibe (ZETIA) 10 mg tablet Take 10 mg by mouth once daily. - albuterol HFA (PROVENTIL HFA, VENTOLIN HFA) 90 mcg/actuation inhaler INHALE 2 PUFFS EVERY 6 HOURS NEEDED FOR WHEEZING - SYMBICORT 80-4.5 mcg/actuation inhaler INHALE 2 PUFFS BY MOUTH and into the lungs TWICE DAILY - hydrOXYzine HCl (ATARAX) 50 mg tablet TAKE 1 TO 2 TABLETS FOUR TIMES DAILY NEEDED FOR ANXIETY - omeprazole magnesium (PRILOSEC ORAL) Take by mouth. - polyethylene glycol 3350 (MIRALAX) 17 gram/dose powder Take 17 g by mouth three times daily as needed for constipation. Dissolve dose in 4 - 8 ounces of liquid and take as directed. - cloNIDine HCl (CATAPRES) 0.1 mg tablet (Prior Auth#:[id number]) - methocarbamol (ROBAXIN) 750 mg tablet Take 750 mg by mouth four times daily as needed. - acetaminophen (TYLENOL ARTHRITIS PAIN ORAL) Take by mouth three times daily as needed. - ibuprofen (MOTRIN) 600 mg tablet Take 1 tablet by mouth every 6 hours as needed. FOR PAIN. 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] 01/09/2007 04/17/2017 Contact dermatitis and other eczema, due to uns*01/09/2007 04/17/2017 Unspecified pruritic disorder [L29.9] 01/09/2007 04/17/2017 Insect bite NEC [W57.XXXA] 12/17/2007 03/03/2011 Scabies [B86] 12/17/2007 03/03/2011 Other atopic dermatitis and related conditions *12/17/2007 Seborrheic dermatitis, unspecified [L21.9] 03/28/2008 12/16/2014 Ganglion, unspecified [M67.40] 03/28/2008 04/17/2017 Bipolar disorder, unspecified (HCC) [F31.9] 06/10/2008 04/17/2017 Migraines [G43.909] 08/20/2013 Anxiety [F41.9] 10/23/2014 03/04/2021 Back ache [M54.9] 10/23/2014 03/04/2021 Bipolar affective disorder (HCC) [F31.9] 12/16/2014 03/04/2021 Opioid dependence with withdrawal (HCC) [F11.23]12/16/2014 Fissure in ano [K60.2] 07/29/2015 Opioid abuse (HCC) [F11.10] 08/13/2015 03/04/2021 TMJ (dislocation of temporomandibular joint) [S*08/13/2015 History of suicidal ideation [Z86.59] 04/06/2017 03/04/2021 History of herpes genitalis [Z86.19] 04/06/2017 Vitamin D deficiency [E55.9] 06/07/2018 03/15/2022 Chronic low back pain [M54.50, G89.29] 08/09/2018 Smoker [F17.200] 08/09/2018 Constipation [K59.00] Tobacco use [Z72.0] Drug abuse (HCC) [F19.10] 03/04/2021 Pelvic pain in female [R10.2] 03/16/2021 Chronic neck pain [M54.2, G89.29] 05/17/2022 Radiculopathy, lumbar region [M54.16] 05/17/2022 Encounter Status:Closed by MICAELA TELLES on 05/26/22 [facility] Dave 05-19-2022 [facility] Telephone (Scrip[facility]t) SHERRELLMARIA T ([id number]) 1995 F Date Time Provider Department 05/19/22 BEBE MCKENNA During your visit today, we recorded the following information about you: Micaela Telles RN 05/19/2022 12:55 PM Signed Pt called in today asking about increasing the Lidocaine doses for the upcoming infusion's that are scheduled. Please advise. Micaela Telles RN May 19, 2022 12:55 PM Bebe Mckenna MD 05/19/2022 1:02 PM Signed OK to do so. Please let Naomi know. Milka Riggins RN 05/26/2022 8:02 AM Signed Noted. Milka Riggins RN Allergies As of Date: 05/19/2022 Noted Allergy Reaction fragrance mix [Other] 12/14/2007 2 - Rash AMITIZA (LUBIPROSTONE) 01/28/2019 2 - Rash AMOXICILLIN 04/06/2005 2 - Rash CIPRO (CIPROFLOXACIN HCL) 02/11/2020 8 - GI Upset CLINDAMYCIN 04/12/2019 5 - Intolerance Comments: Her whole body felt hot and she had abdominal pain DOXYCYCLINE 06/25/2009 8 - GI Upset FLAGYL (METRONIDAZOLE HCL) 10/10/2011 8 - GI Upset Comments: Nausea. Able to tolerate with anti-emetics metal [Other] 04/06/2005 2 - Rash NAPROXEN 01/31/2012 8 - GI Upset Comments: Headache/GI upset Trish [Other] 04/06/2005 2 - Rash PENICILLINS 04/06/2005 4 - Hives SULFA (SULFONAMIDE ANTIBIOTICS) 05/18/2018 14 - Other: See Comments Comments: "It is like the flu x 10" SULFAMETHOXAZOLE-TRIME THOPRIM 12/06/2021 14 - Other: See Comments ULTRAM (TRAMADOL HCL) 10/10/2011 14 - Other: See Comments Comments: Headache seizure Date Reviewed: 05/17/2022 Reviewed by: Cameron Márquez, ANUJA.MORTARMAN - Fully Assessed Reason for Visit: Patient Question [9817] Prescriptions as of 05/26/2022 - acyclovir (ZOVIRAX) 400 mg tablet TAKE 2 TABLETS BY MOUTH DAILY - pregabalin (LYRICA) 100 mg capsule Take 100 mg by mouth three times daily. - MYRA FE 04/01, 28, 1 mg-20 mcg (21)/75 mg (7) per tablet Take 1 tablet by mouth once daily. - ezetimibe (ZETIA) 10 mg tablet Take 10 mg by mouth once daily. - albuterol HFA (PROVENTIL HFA, VENTOLIN HFA) 90 mcg/actuation inhaler INHALE 2 PUFFS EVERY 6 HOURS NEEDED FOR WHEEZING - SYMBICORT 80-4.5 mcg/actuation inhaler INHALE 2 PUFFS BY MOUTH and into the lungs TWICE DAILY - hydrOXYzine HCl (ATARAX) 50 mg tablet TAKE 1 TO 2 TABLETS FOUR TIMES DAILY NEEDED FOR ANXIETY - omeprazole magnesium (PRILOSEC ORAL) Take by mouth. - polyethylene glycol 3350 (MIRALAX) 17 gram/dose powder Take 17 g by mouth three times daily as needed for constipation. Dissolve dose in 4 - 8 ounces of liquid and take as directed. - cloNIDine HCl (CATAPRES) 0.1 mg tablet (Prior Auth#:[id number]) - methocarbamol (ROBAXIN) 750 mg tablet Take 750 mg by mouth four times daily as needed. - acetaminophen (TYLENOL ARTHRITIS PAIN ORAL) Take by mouth three times daily as needed. - ibuprofen (MOTRIN) 600 mg tablet Take 1 tablet by mouth every 6 hours as needed. FOR PAIN. 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] 01/09/2007 04/17/2017 Contact dermatitis and other eczema, due to uns*01/09/2007 04/17/2017 Unspecified pruritic disorder [L29.9] 01/09/2007 04/17/2017 Insect bite NEC [W57.XXXA] 12/17/2007 03/03/2011 Scabies [B86] 12/17/2007 03/03/2011 Other atopic dermatitis and related conditions *12/17/2007 Seborrheic dermatitis, unspecified [L21.9] 03/28/2008 12/16/2014 Ganglion, unspecified [M67.40] 03/28/2008 04/17/2017 Bipolar disorder, unspecified (HCC) [F31.9] 06/10/2008 04/17/2017 Migraines [G43.909] 08/20/2013 Anxiety [F41.9] 10/23/2014 03/04/2021 Back ache [M54.9] 10/23/2014 03/04/2021 Bipolar affective disorder (HCC) [F31.9] 12/16/2014 03/04/2021 Opioid dependence with withdrawal (HCC) [F11.23]12/16/2014 Fissure in ano [K60.2] 07/29/2015 Opioid abuse (HCC) [F11.10] 08/13/2015 03/04/2021 TMJ (dislocation of temporomandibular joint) [S*08/13/2015 History of suicidal ideation [Z86.59] 04/06/2017 03/04/2021 History of herpes genitalis [Z86.19] 04/06/2017 Vitamin D deficiency [E55.9] 06/07/2018 03/15/2022 Chronic low back pain [M54.50, G89.29] 08/09/2018 Smoker [F17.200] 08/09/2018 Constipation [K59.00] Tobacco use [Z72.0] Drug abuse (HCC) [F19.10] 03/04/2021 Pelvic pain in female [R10.2] 03/16/2021 Chronic neck pain [M54.2, G89.29] 05/17/2022 Radiculopathy, lumbar region [M54.16] 05/17/2022 Encounter Status:Closed by MICAELA TELLES on 05/26/22 [facility] CBC W Auto Differential pane l (Bld)on 04-14-2022 Band form neutrophils (Bld) [#/Vol] CANCELED [facility] Comment on above: Result canceled by t he ancillary. Band form neutrophils/100 WBC (Bld) CANCELED % [facility] Comment on above: Result canceled by t he ancillary. Basophils (Bld) [#/Vol] 51 10*3/uL [facility] Basophils/100 WBC (Bld) 0.5 % [facility] Blasts (Bld) [#/Vol] CANCELED 0 cells/uL [facility] Comment on above: Result canceled by [facility] ancillary. Blasts/100 WBC (Bld) CANCELED % [facility] Comment on above: Result canceled by [facility] ancillary. Eosinophils (Bld) [#/Vol] 182 10*3/uL [facility] Eosinophils/100 WBC (Bld) 1.8 % [facility] Erythrocyte distribution width (RBC) [Ratio] 12.9 % 11.0 - 15.0 % [facility] Hematocrit (Bld) [Volume fraction] 39.7 % 35.0 - 45.0 % [facility] Hemoglobin (Bld) [Mass/Vol] 13.2 g/dL 11.7 - 15.5 g/dL [facility] Lymphocytes (Bld) [#/Vol] 3040 10*3/uL [facility] Lymphocytes/100 WBC (Bld) 30.1 % [facility] MCH (RBC) [Entitic mass] 26.9 pg Low 27.0 - 33.0 pg [facility] MCHC (RBC) [Mass/Vol] 33.2 g/dL 32.0 - 36.0 g/dL [facility] MCV (RBC) [Entitic vol] 80.9 fL 80.0 - 100.0 fL [facility] Metamyelocytes (Bld) [#/Vol] CANCELED 0 cells/uL [facility] Comment on above: Result canceled by [facility] ancillary. Metamyelocytes/100 WBC (Bld) CANCELED % [facility] Comment on above: Result canceled by [facility] ancillary. Monocytes (Bld) [#/Vol] 525 10*3/uL [facility] Monocytes/100 WBC (Bld) 5.2 % [facility] Myelocytes (Bld) [#/Vol] CANCELED 0 cells/uL [facility] Comment on above: Result canceled by [facility] ancillary. Myelocytes/100 WBC (Bld) CANCELED % [facility] Comment on above: Result canceled by [facility] ancillary. Neutrophils (Bld) [#/Vol] 6302 10*3/uL [facility] Neutrophils/100 WBC (Bld) 62.4 % [facility] Nucleated RBC (Bld) [#/Vol] CANCELED 0 cells/uL [facility] Comment on above: Result canceled by t he ancillary. Nucleated RBC/100 WBC (Bld) [Ratio] CANCELED 0 /100 WBC [facility] Comment on above: Result canceled by [facility] ancillary. Platelet mean volume (Bld) [Entitic vol] 9.5 fL 7.5 - 12.5 fL [facility] Platelets (Bld) [#/Vol] 311 10*3/uL [facility] Promyelocytes (Bld) [#/Vol] CANCELED 0 cells/uL [facility] Comment on above: Result canceled by [facility] ancillary. Promyelocytes/100 WBC (Bld) CANCELED % [facility] Comment on above: Result canceled by [facility] ancillary. RBC (Bld) [#/Vol] 4.91 10*6/uL [facility] comment (Unsp spec) [Interp[facility]: Result [facility] by [facility] anc[facility]. Variant lymphocytes/100 WBC (Bld) CANCELED 0 - 10 % [facility] Comment on above: Result canceled by [facility] ancillary. WBC (Bld) [#/Vol] 10.1 10*3/uL [facility] [facility] Comprehensive metabolic 1998 panelon 04-14-2022 Albumin [Mass/Vol] 3.7 g/dL 3.6 - 5.1 g/dL [facility] ALP [Catalytic activity/Vol] 104 U/L 31 - 125 U/L [facility] ALT [Catalytic activity/Vol] 13 U/L 6 - 29 U/L [facility] Anion gap [Moles/Vol] 7 mmol/L [facility] AST [Catalytic activity/Vol] 12 U/L 10 - 30 U/L [facility] Bilirubin [Mass/Vol] 0.3 mg/dL 0.2 - 1 .2 mg/dL [facility] Calcium [Mass/Vol] 8.7 mg/dL 8.6 - 10. 2 mg/dL [facility] Chloride [Moles/Vol] 106 mmol/L 98 - 11 0 mmol/L [facility] CO2 [Moles/Vol] 26 mmol/L 20 - 32 mmol/L [facility] Creatinine [Mass/Vol] 0.77 mg/dL 0.50 - 0.96 mg/dL [facility] GFR/1.73 sq M.predicted among non-blacks MDRD (S/P/Bld) [Vol rate/Area] 107 mL/min/{1.73_m2} > OR = 60 mL/min/1.73m2 [facility] Comment on above: The eGFR is based on the CKD-EPI 2020 equation. To calculate the new eGFR from a previous Creatinine or Cystatin C result, go to https://www.kidney.org/professionals/ kdoqi/gfr%5Fcalculator Glucose [Mass/Vol] 93 mg/dL 65 - 99 mg/dL [facility] Comment on above: Fasting reference interval Potassium [Moles/Vol] 3.9 mmol/L 3.5 - 5.3 mmol/L [facility] Protein [Mass/Vol] 6.5 g/dL 6.1 - 8.1 g/dL [facility] Sodium [Moles/Vol] 139 mmol/L 135 - 146 mmol/L [facility] Urea nitrogen [Mass/Vol] 6 mg/dL Low 7 - 25 mg/dL [facility] Lipid 1996 panelon 3 Cholesterol [Mass/Vol] 180 [facility]dL [facility] Cholesterol in HDL [Mass/Vol] 42 mg/dL Low > OR = 50 [facility] Cholesterol in LDL [Mass/Vol] 105 mg/dL High mg/dL (calc) [facility] Comment on above: Reference range: <10 0 Desirable range <100 mg/dL for primary prevention; <70 mg/dL for patients with CHD or diabetic patients with > or = 2 CHD risk factors. LDL-C is now calculated using the Juanjo calculation, which is a validated novel method providing better accuracy than the Friedewald equation in the estimation of LDL-C. Kain VICK et al. CHRISTIAN. 2013;310(19): 0057-5037 (http://education.Vizimax.Brazen Careerist/faq/ADP492) Cholesterol non HDL [Mass/Vol] 138 mg/dL High [facility] Comment on above: For patients with di abetes plus 1 major ASCVD risk factor, treating to a non-HDL-C goal of <100 mg/dL (LDL-C of <70 mg/dL) is considered a therapeutic option. Cholesterol.total/Ch olesterol in HDL [Mass ratio] 4.3 {ratio} [facility] Triglyceride [Mass/Vol] 214 mg/dL High NINF - 150 mg/dL [facility] Comment on above: If a non-fasting specimen was collected, consider repeat triglyceride testing on a fasting specimen if clinically indicated. Alberto et al. J. of Clin. Lipidol. 2015;9:129-169. No Panel Informationon 04-14 Interpretation and review of laboratory results Abnormal [facility] hCG, quantitative, on 04-14-2022 HCG.beta subunit Qn m[IU]/mL mIU/mL [facility] Comment on above: Reference Range Non or premenopausal <5 Postmenopausal <10 Values from different assay methods may vary. The use of this assay to monitor or to diagnose patients with cancer or any condition unrelated to has not been cleared or approved by the FDA or the improvement analyst of the assay. CORTISOL SALIVAon 04-06-2022 CORTISOL, SALIVA <0.012 Normal [facility] Comment on above: Order Comment: Speci men Type: SWAB Ordering Facility: [facility] Address: [address] [place] [id number] Result Comment: INTE RPRETIVE INFORMATION: Cortisol, Saliva For collection at 2300 hr. the normal cortisol concentration is less than 0.112 ug/dL. Patients with Cushings Syndrome have concentrations of 0.112 ug/dL or greater. a.m. ([id number]) p.m. (noon-1800) Males 2.5-7 years 0.034-0.645 ug/dL 0.053-0.607 ug/dL 8-11 years 0.084-0.839 ug/dL less than 0.215 ug/dL 12-18 years 0.021-0.883 ug/dL less than 0.259 ug/dL 19-30 years 0.112-0.743 ug/dL less than 0.308 ug/dL 31-50 years 0.122-1.551 ug/dL less than 0.359 ug/dL 51 and older 0.112-0.812 ug/dL less than 0.228 ug/dL Females 2.5-7 years 0.034-0.645 ug/dL 0.053-0.607 ug/dL 8-11 years 0.084-0.839 ug/dL less than 0.215 ug/dL 12-18 years 0.021-0.883 ug/dL less than 0.259 ug/dL 19-30 years 0.272-1.348 ug/dL less than 0.359 ug/dL 31-50 years 0.094-1.515 ug/dL less than 0.181 ug/dL 51 and older 0.149-0.739 ug/dL 0.022-0.254 ug/dL Performed by [facility], [address] [place] [address] [email or web address], Leah Sanchez MD, PHD, Lab. Director Performed By: #### S ELSY #### [employer] CLIA [id number] [address] [place] [address] CORTISOL, SALIVA 0.015 ug/dL Normal [facility] Comment on above: Order Comment: Speci men Type: SWAB Ordering Facility: [facility] Address: [address] [place], [place] [id number] Result Comment: INTE RPRETIVE INFORMATION: Cortisol, Saliva For collection at 2300 hr. the normal cortisol concentration is less than 0.112 ug/dL. Patients with Cushings Syndrome have concentrations of 0.112 ug/dL or greater. a.m. ([id number]) p.m. (noon-1800) Males 2.5-7 years 0.034-0.645 ug/dL 0.053-0.607 ug/dL 8-11 years 0.084-0.839 ug/dL less than 0.215 ug/dL 12-18 years 0.021-0.883 ug/dL less than 0.259 ug/dL 19-30 years 0.112-0.743 ug/dL less than 0.308 ug/dL 31-50 years 0.122-1.551 ug/dL less than 0.359 ug/dL 51 and older 0.112-0.812 ug/dL less than 0.228 ug/dL Females 2.5-7 years 0.034-0.645 ug/dL 0.053-0.607 ug/dL 8-11 years 0.084-0.839 ug/dL less than 0.215 ug/dL 12-18 years 0.021-0.883 ug/dL less than 0.259 ug/dL 19-30 years 0.272-1.348 ug/dL less than 0.359 ug/dL 31-50 years 0.094-1.515 ug/dL less than 0.181 ug/dL 51 and older 0.149-0.739 ug/dL 0.022-0.254 ug/dL Performed by [facility], [address] [place] [address] [email or web address], Leah Sanchez MD, PHD, Lab. Director Performed By: #### S ELSY #### [employer] CLIA [id number] [address] [place] [address] No Panel Informationon 04-[address] [facility] IMPRESSION: 1. Mild degenerative changes in the facet joints in the cervical spine 2. Shoulders are unremarkable bilaterally Bus Person: TARA Transcribe Date/Time: Apr 04 2022 6:56A Dictated by : MERCEDES KILLIAN DO This examination was interpreted and the report reviewed and electronically signed by: MERCEDES KILLIAN DO on Apr 04 2022 7:01AM [facility] DIVISION OF RADIOLOGY No Panel InformationOrdered By: Cc Provider on 04-04-[address] [facility] XR Cervical spine AP and Lat eralon 04-04-2022 * * *Final Report* * * DATE OF EXAM: Mar 31 2022 4:52PM WOX [id number] - XR CERVICAL 2V AP/LAT / PROCEDURE REASON: Chronic pain syndrome * * * * Physician Interpretation * * * * XR CERVICAL 2V AP/LAT, XR SHOULDER 2V AP/TRUE AP RT, XR SHOULDER 2V AP/TRUE AP LT HISTORY: Indication: Chronic pain syndrome TECHNIQUE: Views obtained: XR CERVICAL 2V AP/LAT, XR SHOULDER 2V AP/TRUE AP RT, XR SHOULDER 2V AP/TRUE AP LT Comparison: EXAM(s): XR CERVICAL 2V AP/LAT, XR SHOULDER 2V AP/TRUE AP RT, XR SHOULDER 2V AP/TRUE AP LT EXAM DATE/TIME: 03/31/2022 4:52 PM HISTORY: 27 years old Clinical information: Chronic pain syndrome TECHNIQUE: Images: XR CERVICAL 2V AP/LAT, XR SHOULDER 2V AP/TRUE AP RT, XR SHOULDER 2V AP/TRUE AP LT Comparison: None. RESULT: Findings: Cervical spine: Disc spaces appear well-preserved. Mild degenerative changes in the facet joints throughout the cervical spine Bilateral shoulder findings: AC joints are well-preserved.. The glenohumeral joints are well maintained.The acromial humeral interval is unremarkable bilaterally.. The bone density is unremarkable. Right shoulder:No fractures or dislocations are seen. Left shoulder:No fractures or dislocations are seen. DIVISION OF RADIOLOGY Provider, [facility] - 04/04/2022 * * *Final Report* * * DATE OF EXAM: Mar 31 2022 4:52PM WOX 5308 - XR CERVICAL 2V AP/LAT / PROCEDURE REASON: Chronic pain syndrome * * * * Physician Interpretation * * * * XR CERVICAL 2V AP/LAT, XR SHOULDER 2V AP/TRUE AP RT, XR SHOULDER 2V AP/TRUE AP LT HISTORY: Indication: Chronic pain syndrome TECHNIQUE: Views obtained: XR CERVICAL 2V AP/LAT, XR SHOULDER 2V AP/TRUE AP RT, XR SHOULDER 2V AP/TRUE AP LT Comparison: EXAM(s): XR CERVICAL 2V AP/LAT, XR SHOULDER 2V AP/TRUE AP RT, XR SHOULDER 2V AP/TRUE AP LT EXAM DATE/TIME: 03/31/2022 4:52 PM HISTORY: 27 years old Clinical information: Chronic pain syndrome TECHNIQUE: Images: XR CERVICAL 2V AP/LAT, XR SHOULDER 2V AP/TRUE AP RT, XR SHOULDER 2V AP/TRUE AP LT Comparison: None. RESULT: Findings: Cervical spine: Disc spaces appear well-preserved. Mild degenerative changes in the facet joints throughout the cervical spine Bilateral shoulder findings: AC joints are well-preserved.. The glenohumeral joints are well maintained.The acromial humeral interval is unremarkable bilaterally.. The bone density is unremarkable. Right shoulder:No fractures or dislocations are seen. Left shoulder:No fractures or dislocations are seen. IMPRESSION IMPRESSION: 1. Mild degenerative changes in the facet joints in the cervical spine 2. Shoulders are unremarkable bilaterally Bus Person: TARA Transcribe Date/Time: Apr 04 2022 6:56A Dictated by : MERCEDES KILLIAN DO This examination was interpreted and the report reviewed and electronically signed by: MERCEDES KILLIAN DO on Apr 04 2022 7:01AM EST [facility] XR Knee - right AP and Later sherman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 LABORATORYOrdered By: Lauren Swanson on 03-10-2021 Albumin BCP dye [Mass/Vol] 3.6 G/dL Invalid Interpretation Code 3.5 - 5.0 G/dL AO ADM SS Albumin/Globulin [Mass ratio] 0.9 {ratio} Invalid Interpretation Code 1.1 - 2.5 ratio AO ADM SS ALP [Catalytic activity/Vol] 88 U/L Invalid Interpretation Code 40 - 135 U/L AO ADM SS ALT With P-5'-P [Catalytic activity/Vol] 126 U/L Invalid Interpretation Code 14 - 59 U/L AO ADM SS AST With P-5'-P [Catalytic activity/Vol] 53 U/L Invalid Interpretation Code 10 - 40 U/L AO ADM SS Bilirubin [Mass/Vol] 0.2 mg/dL Invalid Interpretation Code 0.2 - 1.0 mg/dL AO ADM SS C-Reactive Protein mg/dL Invalid Interpretation Code 0.0 - 0.9 mg/dL AO Chemistry S Calcium [Mass/Vol] 8.6 mg/dL Invalid Interpretation Code 8.4 - 10.2 mg/dL AO ADM SS Chloride [Moles/Vol] 102 mmol/L Invalid Interpretation Code 98 - 107 mmol/L AO ADM SS CO2 [Moles/Vol] 23 mmol/L Invalid Interpretation Code 22 - 29 mmol/L AO ADM SS Creatinine [Mass/Vol] 0.84 mg/dL Invalid Interpretation Code 0.55 - 1.02 mg/dL AO ADM SS Electrolyte Balance 13.0 mEq/L Invalid Interpretation Code AO ADM SS Globulin 3.8 G/dL Invalid Interpretation Code AO ADM SS Glucose [Mass/Vol] 112 mg/dL Invalid Interpretation Code 70 - 105 mg/dL AO ADM SS Potassium [Moles/Vol] 4.0 mmol/L Invalid Interpretation Code 3.5 - 5.1 mmol/L AO ADM SS Protein [Mass/Vol] 7.4 G/dL Invalid Interpretation Code 6.4 - 8.2 G/dL AO ADM SS Sodium [Moles/Vol] 138 mmol/L Invalid Interpretation Code 136 - 145 mmol/L AO ADM SS Urea nitrogen [Mass/Vol] 15 mg/dL Invalid Interpretation Code 7 - 18 mg/dL AO ADM SS Urea nitrogen/Creatinine [Mass ratio] 18 ratio Invalid Interpretation Code 7 - 27 ratio AO ADM SS LABORATORYOrdered By: Gregory Nunez on 03-10-2021 Basophil, Absolute 0.00 103/mcL Invalid Interpretation Code 0.00 - 0.19 10^3/mcL AO Auto Heme SS Basophils/100 WBC (Bld) 0.4 % Invalid Interpretation Code 0.0 - 2.5 % AO Auto Heme SS Eosinophil, Absolute 0.20 103/mcL Invalid Interpretation Code 0.00 - 0.40 10^3/mcL AO Auto Heme SS Eosinophils/100 WBC (Bld) 1.8 % Invalid Interpretation Code 0.0 - 7.0 % AO Auto Heme SS Erythrocyte distribution width (RBC) [Ratio] 13.9 % Invalid Interpretation Code 11.5 - 14.5 % AO Auto Heme SS ESR 15 minute reading (Bld) [Velocity] 22 mm/hr Invalid Interpretation Code 0 - 20 mm/hr AO Man Heme SS Hematocrit (Bld) [Volume fraction] 37.9 % Invalid Interpretation Code 37.0 - 47.0 % AO Auto Heme SS Hemoglobin (Bld) [Mass/Vol] 12.9 G/dL Invalid Interpretation Code 12.0 - 16.0 G/dL AO Auto Heme SS Lymphocyte, Absolute 3.10 103/mcL Invalid Interpretation Code 0.77 - 3.85 10^3/mcL AO Auto Heme SS Lymphocytes/100 WBC (Bld) 33.5 % Invalid Interpretation Code 10.0 - 50.0 % AO Auto Heme SS MCH (RBC) [Entitic mass] 28.5 pg Invalid Interpretation Code 27.0 - 31.2 pg AO Auto Heme SS MCHC (RBC) [Mass/Vol] 34.0 G/dL Invalid Interpretation Code 33.0 - 37.0 G/dL AO Auto Heme SS MCV (RBC) [Entitic vol] 83.9 fL Invalid Interpretation Code 80.0 - 94.0 fL AO Auto Heme SS Monocyte, Absolute 0.50 103/mcL Invalid Interpretation Code 0.15 - 1.00 10^3/mcL AO Auto Heme SS Monocytes/100 WBC (Bld) 4.8 % Invalid Interpretation Code 1.7 - 13.0 % AO Auto Heme SS Neutrophil, Absolute 5.60 103/mcL Invalid Interpretation Code 2.85 - 6.16 10^3/mcL AO Auto Heme SS Neutrophils/100 WBC (Bld) 59.5 % Invalid Interpretation Code 37.0 - 80.0 % AO Auto Heme SS Platelet mean volume (Bld) [Entitic vol] 7.4 fL Invalid Interpretation Code 7.4 - 10.4 fL AO Auto Heme SS Platelets (Bld) [#/Vol] 314 103/mcL Invalid Interpretation Code 130 - 400 10^3/mcL AO Auto Heme SS RBC (Bld) [#/Vol] 4.51 106/mcL Invalid Interpretation Code 4.20 - 5.40 10^6/mcL AO Auto Heme SS WBC (Bld) [#/Vol] 9.30 103/mcL Invalid Interpretation Code 4.60 - 10.80 10^3/mcL AO Auto Heme SS LABORATORYOrdered By: SYSTEM SYSTEM on 03-10-2021 GFR 98 ml/min/1.73sqm Invalid Interpretation Code AO Chemistry S GFR Non- 81 ml/min/1.73sqm Invalid Interpretation Code AO Chemistry S ALC ETHANOLon 12-13-2020 ALC ETHANOL < 3.0 Normal <10.0 [facility] Comment on above: Order Comment: TEST: CMP Added TO SPECIMEN at 2329 12/12/20 by GLPH CONSERVATION Result Comment: UNCO NFIRMED Toxicology results. For MEDICAL purposes only. Performed By: #### L 500.31630, L500.22318, L500.07384, L500.70486, L500.48782 #### Test performed at: [address] [address] CBC W/DIFFon 12-13-2020 Erythrocyte distribution width (RBC) [Ratio] 13.5 % Normal 11.5-14.5 [facility] Comment on above: Order Comment: CONSE RVATION Performed By: #### L 200.64542, L200.93624 #### Test performed at: [address] [address] Hematocrit (Bld) [Volume fraction] 36.1 % Normal 36.0-48.0 [facility] Comment on above: Order Comment: CONSE RVATION Performed By: #### L 200.71977, L200.22119 #### Test performed at: [address] [address] Hemoglobin (Bld) [Mass/Vol] 12.3 g/dL Normal 12.0-15.0 [facility] Comment on above: Order Comment: CONSE RVATION Performed By: #### L 200.19314, L200.40964 #### Test performed at: [address] [address] MCH (RBC) [Entitic mass] 28.0 pg Normal 25.4-34.6 [facility] Comment on above: Order Comment: CONSE RVATION Performed By: #### L 200.76691, L200.78073 #### Test performed at: [address] [address] MCHC (RBC) [Mass/Vol] 34.1 g/dL Normal 31.5-36.5 [facility] Comment on above: Order Comment: CONSE RVATION Performed By: #### L 200.84847, L200.25963 #### Test performed at: [place] [id number] MCV (RBC) [Entitic vol] 82.2 fL Normal 79.0-98.0 [facility] Comment on above: Order Comment: CONSE RVATION Performed By: #### L 200.79987, L200.62699 #### Test performed at: [place] [id number] NRBC # 0.000 K/uL Normal 0-0.012 [facility] Comment on above: Order Comment: CONSE RVATION Performed By: #### L 200.16262, L200.16932 #### Test performed at: [address] [address] NRBC % 0.0 /100 WBC Normal 0-0.2 [facility] Comment on above: Order Comment: CONSE RVATION Performed By: #### L 200.02307, L200.45898 #### Test performed at: [address] [address] Platelet mean volume (Bld) [Entitic vol] 9.3 fL Normal 8.7-12.4 [facility] Comment on above: Order Comment: CONSE RVATION Performed By: #### L 200.77173, L200.98384 #### Test performed at: [address] [address] Platelets (Bld) [#/Vol] 383 10*3/uL Normal 140-440 [facility] Comment on above: Order Comment: CONSE RVATION Performed By: #### L 200.95660, L200.33334 #### Test performed at: [address] [address] RBC (Bld) [#/Vol] 4.39 10*6/uL Normal 3.5-5.5 [facility] Comment on above: Order Comment: CONSE RVATION Performed By: #### L 200.94804, L200.56621 #### Test performed at: [address] [address] WBC (Bld) [#/Vol] 13.2 10*3/uL High 3.9-11.0 [facility] Comment on above: Order Comment: CONSE RVATION Performed By: #### L 200.69483, L200.78183 #### Test performed at: [address] [address] CKon 12-13-2020 CK [Catalytic activity/Vol] 371 U/L High 26-192 [facility] Comment on above: Order Comment: TEST: CMP Added TO SPECIMEN at 2329 12/12/20 by GLBMPH CONSERVATION Performed By: #### L 500.99289, L500.20845, L500.48629, L500.06930, L500.43694 #### Test performed at: [address] [address] COMP META PANELon 12-13-2020 Albumin [Mass/Vol] 3.3 g/dL Low 3.4-5.0 [facility] Comment on above: Order Comment: TEST: CMP Added TO SPECIMEN at 232812/12/20 by GLBMPH CONSERVATION Performed By: #### L 500.92165, L500.77849, L500.60814, L500.26683, L500.88109 #### Test performed at: [address] [address] ALK PHOS TOTAL 71 U/L Normal 45-117 [facility] Comment on above: Order Comment: TEST: CMP Added TO SPECIMEN at 232812/12/20 by GLBMPH CONSERVATION Performed By: #### L 500.42049, L500.69313, L500.68298, L500.38365, L500.37203 #### Test performed at: [address] [address] ALT [Catalytic activity/Vol] 52 U/L Normal 13-61 [facility] Comment on above: Order Comment: TEST: CMP Added TO SPECIMEN at 232812/12/20 by GLBMPH CONSERVATION Performed By: #### L 500.04956, L500.87981, L500.29393, L500.15145, L500.60954 #### Test performed at: [address] [address] AST [Catalytic activity/Vol] 31 U/L Normal 15-37 [facility] Comment on above: Order Comment: TEST: CMP Added TO SPECIMEN at 232812/12/20 by GLBMPH CONSERVATION Performed By: #### L 500.27345, L500.80244, L500.49537, L500.77280, L500.35075 #### Test performed at: [address] [address] BILI TOTAL 0.5 mg/dL Normal 0.2-1.0 [facility] Comment on above: Order Comment: TEST: CMP Added TO SPECIMEN at 232812/12/20 by GLBMPH CONSERVATION Performed By: #### L 500.07173, L500.18261, L500.53254, L500.35739, L500.49688 #### Test performed at: [address] [address] Calcium [Mass/Vol] 8.2 mg/dL Low 8.5-10.1 [facility] Comment on above: Order Comment: TEST: CMP Added TO SPECIMEN at 232812/12/20 by GLBMPH CONSERVATION Performed By: #### L 500.83603, L500.96617, L500.20756, L500.64785, L500.95184 #### Test performed at: [address] [address] Chloride [Moles/Vol] 104 mmol/L Normal 98-107 [facility] Comment on above: Order Comment: TEST: CMP Added TO SPECIMEN at 232812/12/20 by GLBMPH CONSERVATION Performed By: #### L 500.41356, L500.24837, L500.48466, L500.54188, L500.62161 #### Test performed at: [address] [address] CO2 [Moles/Vol] 27 mmol/L Normal 21-32 [facility] Comment on above: Order Comment: TEST: CMP Added TO SPECIMEN at 232812/12/20 by GLBMPH CONSERVATION Performed By: #### L 500.08664, L500.22734, L500.92301, L500.12349, L500.44639 #### Test performed at: [address] [address] Creatinine [Mass/Vol] 0.964 mg/dL Normal 0.550-1.020 [facility] Comment on above: Order Comment: TEST: CMP Added TO SPECIMEN at 232812/12/20 by GLBMPH CONSERVATION Performed By: #### L 500.89380, L500.94727, L500.42560, L500.97999, L500.59018 #### Test performed at: [address] [address] Glucose [Mass/Vol] 96 mg/dL Normal 70-99 [facility] Comment on above: Order Comment: TEST: CMP Added TO SPECIMEN at 232812/12/20 by GLBMPH CONSERVATION Result Comment: Fast ing GLUCOSE reference range has been updated per (ADA) [place] [employer]'s recommendation. 06/05/2018 Performed By: #### L 500.86501, L500.97573, L500.18974, L500.76520, L500.42298 #### Test performed at: [address] [address] Potassium [Moles/Vol] 3.0 mmol/L Critically low 3.5-5.1 [facility] Comment on above: Order Comment: TEST: CMP Added TO SPECIMEN at 232812/12/20 by GLBMPH CONSERVATION Result Comment: Crit ical Result(s) Called at: 00:00:10 on 12/13/2020 by: Nuha Wilson and read back by: RONALD FERRIS Performed By: #### L 500.65872, L500.52511, L500.04163, L500.78248, L500.03594 #### Test performed at: [address] [address] Protein [Mass/Vol] 6.6 g/dL Normal 6.4-8.2 [facility] Comment on above: Order Comment: TEST: CMP Added TO SPECIMEN at 232812/12/20 by GLBMPH CONSERVATION Performed By: #### L 500.78589, L500.49129, L500.88237, L500.83179, L500.42799 #### Test performed at: [address] [address] Sodium [Moles/Vol] 137 mmol/L Normal 136-145 [facility] Comment on above: Order Comment: TEST: CMP Added TO SPECIMEN at 2329 10/02/21 by GLBMPH CONSERVATION Performed By: #### L 500.33634, L500.94669, L500.17095, L500.92862, L500.57384 #### Test performed at: [place] [address] Urea nitrogen [Mass/Vol] 22 mg/dL High 7-18 [facility] Comment on above: Order Comment: TEST: CMP Added TO SPECIMEN at 2329 12/12/20 by GLBMPH CONSERVATION Performed By: #### L 500.90284, L500.92083, L500.56914, L500.80948, L500.13459 #### Test performed at: [place] [address] ED Provider Reporton 021 ED Provider Report [facility] Pt Name: MARIA T WYNNE MR#: [id number] [address] [place] [address] ACCT: [id number] : 89 EMERGENCY PROVIDER REPORT ADM Date: 12/12/20 ER Physician: Aleksandr Booker MD History of Present Illness Time Seen by [id number] Source of Information PATIENT Triage Complaint DETOX FROM [facility] Chief Complaint Polysubstance abuse Symptom Onset 1HR AGO Travel Out of [place] in last month No History of Present Illness This patient is a 25-year-old female who presents to the ED requesting detox. The patient is a resident of [facility] and presents to the ED with polysubstance abuse including methamphetamine, opiates, fentanyl, and cocaine. The patient states she occasionally drinks alcohol. Her last detox was 1 month ago however she did not complete the program. Patient last used 1 hour prior to admission. Past Medical History Past Med Hx - Other Polysubstance abuse, fibromyalgia, osteoarthritis, bursitis Surgical History Reports Appendectomy PSH D AND C, left shoulder surgery Family History None Past Social History Tobacco Use CIGARETTES Packs/Day LESS THAN 1/2 Alcohol YES Frequency OCCASIONALLY Drug Use YES (Opiates/Cocaine/Meth/ Fentanyl) Occupation Unemployed Living arrangements With family Review of Systems Review of Systems Allergies Coded Allergies: NO KNOWN ALLERGENS (12/12/20) Nursing Notes Reviewed Yes Medications Reviewed I have reviewed the patient's Home Medication List Constitutional Denies Fever, Denies Chills, Denies Diaphoresis, Denies Weakness, Denies Weight loss, Denies Recent Illness EENT Denies: Vision Change, Vision Problems, Sore Throat, Dental Problems, Nasal Congestion, Nasal Drainage. CVS/Pulmonary Denies Chest pain, Denies Hurts to breath, Denies Shortness of breath, Denies Cough GI/ Denies: Abdominal Pain, Nausea, Vomiting, Diarrhea, Black Stools, Bloody Stools, Problems Urinating, Painful Urination. MS/SKIN/LYMPH Denies Extremity Pain, Denies Calf Pain, Denies Leg Pain, Denies Neck Pain, Denies Back Pain, Denies Joint Pain, Denies Ankle Swelling, Denies Leg Swelling, Denies Rash, Denies Swollen Glands Neuro/Psych Denies Headache, Denies Fainting, Denies Dizzy, Denies Loss of Sensation, Denies Weakness, Denies Difficulty Walking, Denies Difficulty with Speech, Denies Confusion ROS ROS: All other systems reviewed and are negative. Physical Exam Vital Signs Vital Signs Reviewed Yes Vital Signs Vital Signs Verdana 4d Date Time Temp Pulse Resp B/P B/P Pulse O2 O2 Flow FiO2 Mean Ox Delivery Rate 12/12 2214 36.8 92 20 115/63 98 Appearance General Appearance Alert. General Dalila-extended Mild Distress Comment This patient is a well-developed well-nourished thin female who is hyperactive and a poor historian. Neuro Neuro Oriented x 3, Speech Clear, Moves all extremities Neck NECK Nml Inspection, No Lymphadenopathy HEENT HEENT Head Atraumatic, Eyes Nml Inspection, Hearing grossly normal, No Signs of Dehydration, Mucosa Moist Respiratory Respiratory Lungs sounds clear, Respirations nonlabored, Symmetrical expansion CVS Cardiovascular Rate WNL, Rhythm regular Abdomen/Pelvis Abdomen/GI Bowel Sounds Present, Abdomen soft, Non-Tender, No distention Extremity Extremity Full ROM, Sensation Intact, Motor Intact Add Extremity Comment The patient has multiple track chavez on both upper extremities. Skin Skin Color Nml, Warm, Dry Medical Decision Making Diagnostics Labs Laboratory Tests Verdana 4d 12/13 12/12 0007 2325 Chemistry Sodium (136 - 145 mmol/L) 137 Potassium (3.5 - 5.1 mmol/L) 3.0 *L Chloride (98 - 107 mmol/L) 104 Carbon Dioxide (21 - 32 mmol/L) 27 BUN (7 - 18 mg/dL) 22 H Creatinine (0.550 - 1.020 mg/dL) 0.964 Est GFR ( Amer) (> 60) > 60 Est GFR (Non-Af Amer) (> 60) > 60 Glucose (70 - 99 mg/dL) 96 Total Calcium (8.5 - 10.1 mg/dL) 8.2 L Total Bilirubin (0.2 - 1.0 mg/dL) 0.5 AST (15 - 37 U/L) 31 ALT (13 - 61 U/L) 52 Alkaline Phosphatase (45 - 117 U/L) 71 Creatine Kinase (26 - 192 U/L) 371 H Troponin I (0.01 - 0.045 ng/mL) < 0.015 Serum Total Protein (6.4 - 8.2 gm/dL) 6.6 Albumin (3.4 - 5.0 gm/dL) 3.3 L oagulation PT (9.0 - 12.5 seconds) 11.0 INR (0.00 - 1.20) 1.03 ematology WBC (3.9 - 11.0 K/uL) 13.2 H RBC (3.5 - 5.5 M/uL) 4.39 Hgb (12.0 - 15.0 g/dL) 12.3 Hct (36.0 - 48.0 %) 36.1 MCV (79.0 - 98.0 fL) 82.2 MCH (25.4 - 34.6 pg) 28.0 MCHC (31.5 - 36.5 g/dL) 34.1 RDW (11.5 - 14.5 %) 13.5 Plt Count (140 - 440 K/uL) 383 MPV (8.7 - 12.4 fL) 9.3 Total Counted (#CELLS) 100 Neutrophils % (Manual) (40 - 80 %) 46 Band Neutrophils % (0 - 5 %) 6 H Lymphocytes % (Manual) (20 - 50 %) 41 Monocytes % (Manual) (2 - 12 %) 5 Eosinophils % (Manual) (0 - 5 %) 2 Nucleated RBC % (0 - 0.2 /100 WBC) 0.0 Nucleated RBCs # (0 - 0.012 K/uL) 0.000 Reactive Lymphocytes PRESENT (more content not included)... Normal [facility] GFR ESTIMATEon 12-13-2020 IF AMER > 60 Normal > 60 [facility] Comment on above: Order Comment: TEST: CMP Added [place] SPE[place]IMEN at 232812/12/20 by [facility] [employer] Result Comment: eGFR (Estimated GFR) Units of measure:mL/min/1.73 meters sq. *CALCULATION REVISED 12/30/2014;IDMS-traceable MDRD equation eGFR is derived from the reexpressed MDRD Study equation using the following parameters: serum creatinine, age, gender and race. An eGFR<60 mL/min/1.73m2 for >3 months is consistent with chronic kidney disease. Refer to KDOQI guidelines for clinical interpretation. Performed By: #### L 500.94696, L500.16311, L500.37614, L500.35597, L500.65882 #### Test performed at: [place] [address] IF non-AFR AMER > 60 Normal > 60 [facility] Comment on above: Order Comment: TEST: CMP Added TO SPECIMEN at 232812/12/20 by [employer] [employer] Performed By: #### L 500.64706, L500.23194, L500.63122, L500.23750, L500.40533 #### Test performed at: [place] [address] LIMIT UR TOXon 12-13-2020 UR AMPH Positive Critically abnormal Negative [facility] Comment on above: Order Comment: TEST: UA Added TO SPECIMEN at 233012/12/20 by [employer] [employer] Result Comment: CUTO OT=3868 Performed By: #### L 600.45928, L600.76668, L600.53818 #### Test performed at: [place] [address] UR LEA Negative Normal Negative [facility] Comment on above: Order Comment: TEST: UA Added TO SPECIMEN at 233012/12/20 by [employer] [employer] Result Comment: CUTO ZF=687 Performed By: #### L 600.39924, L600.38975, L600.03339 #### Test performed at: [address] [address] UR EMELY Negative Normal Negative [facility] Comment on above: Order Comment: TEST: UA Added TO SPECIMEN at 233012/12/20 by [employer] [employer] Result Comment: CUTO ZN=103 Performed By: #### L 600.12044, L600.31724, L600.54365 #### Test performed at: [address] [address] UR BUPREN/NORBU Negative Normal Negative [facility] Comment on above: Order Comment: TEST: UA Added TO SPECIMEN at 233012/12/20 by [employer] [employer] Result Comment: CUTO FF=10 Performed By: #### L 600.21451, L600.55249, L600.37962 #### Test performed at: [address] [address] UR LIGIA/THC Negative Normal Negative [facility] Comment on above: Order Comment: TEST: UA Added TO SPECIMEN at 233012/12/20 by [employer] Result Comment: CUTO FF=50 Performed By: #### L 600.31813, L600.07359, L600.50509 #### Test performed at: [address] [address] UR LUCIANO Negative Normal Negative [facility] Comment on above: Order Comment: TEST: UA Added TO SPECIMEN at 233012/12/20 by [employer] Result Comment: CUTO SP=292 Performed By: #### L 600.78534, L600.91914, L600.36191 #### Test performed at: [address] [address] UR ECSTASY Positive Critically abnormal Negative [facility] Comment on above: Order Comment: TEST: UA Added TO SPECIMEN at 233012/12/20 by [employer] Performed By: #### L 600.83827, L600.55008, L600.35369 #### Test performed at: [address] [address] UR FENTANYL Positive Critically abnormal Negative [facility] Comment on above: Order Comment: TEST: UA Added TO SPECIMEN at 233012/12/20 by [employer] [employer] Result Comment: CUTO ZX=6800 Performed By: #### L 600.56098, L600.37035, L600.14542 #### Test performed at: [place] [id number] UR METH Negative Normal Negative [facility] Comment on above: Order Comment: TEST: UA Added TO SPECIMEN at 233012/12/20 by [employer] Result Comment: CUTO FB=292 Performed By: #### L 600.28181, L600.80491, L600.02119 #### Test performed at: [place] [id number] UR OPIAT Negative Normal Negative [facility] Comment on above: Order Comment: TEST: UA Added TO SPECIMEN at 233012/12/20 by [employer] Result Comment: CUTO UH=084 Performed By: #### L 600.48751, L600.46608, L600.38384 #### Test performed at: [address] [address] UR OXYCODONE Negative Normal Negative [facility] Comment on above: Order Comment: TEST: UA Added TO SPECIMEN at 233012/12/20 by [employer] Result Comment: CUTO UP=361 Performed By: #### L 600.57242, L600.84851, L600.42223 #### Test performed at: [place] [id number] UR PCP Negative Normal Negative [facility] Comment on above: Order Comment: TEST: UA Added TO SPECIMEN at 233012/12/20 by [employer] Result Comment: CUTO FF=25 Performed By: #### L 600.60669, L600.03202, L600.28040 #### Test performed at: [address] [address] PH TOX 6.0 Normal 5.0-8.0 [facility] Comment on above: Order Comment: TEST: UA Added TO SPECIMEN at [facility] 12/12/20 by [employer] Performed By: #### L 600.64123, L600.92512, L600.74800 #### Test performed at: [address] [address] TOX COMMENT *PLEASE NOTE: Normal [facility] Comment on above: Order Comment: TEST: UA Added TO SPECIMEN at [facility] 12/12/20 by [employer] Result Comment: UNCO NFIRMED Toxicology results. For MEDICAL purposes only. Performed By: #### L 600.79267, L600.56068, L600.23046 #### Test performed at: [place] [id number] MANUAL DIFFon 12-13-2020 ANISO OCC Normal [facility] Comment on above: Order Comment: CONSE RVATION Performed By: #### L 200.68595, L200.89779 #### Test performed at: [address] [address] BAND 6 % High 0-5 [facility] Comment on above: Order Comment: CONSE RVATION Performed By: #### L 200.77778, L200.38877 #### Test performed at: [address] [address] EOS 2 % Normal 0-5 [facility] Comment on above: Order Comment: CONSE RVATION Performed By: #### L 200.39286, L200.34744 #### Test performed at: [address] [address] LYMPH 41 % Normal 20-50 [facility] Comment on above: Order Comment: CONSE RVATION Performed By: #### L 200.70823, L200.70384 #### Test performed at: [address] [address] MONOCYTE 5 % Normal 2-12 [facility] Comment on above: Order Comment: CONSE RVATION Performed By: #### L 200.38302, L200.18883 #### Test performed at: [address] [address] NEUTROPHIL 46 % Normal 40-80 [facility] Comment on above: Order Comment: CONSE RVATION Performed By: #### L 200.39145, L200.82754 #### Test performed at: [address] [address] PLT EST ADEQ Normal [facility] Comment on above: Order Comment: CONSE RVATION Performed By: #### L 200.05823, L200.11134 #### Test performed at: [address] [address] RLYMPH PRESENT Normal [facility] Comment on above: Order Comment: CONSE RVATION Performed By: #### L 200.49829, L200.57513 #### Test performed at: [address] [address] STOMATOCYTES 1+ Normal [facility] Comment on above: Order Comment: CONSE RVATION Performed By: #### L 200.13601, L200.17928 #### Test performed at: [address] [address] TOTAL CELLS 100 #CELLS Normal [facility] Comment on above: Order Comment: CONSE RVATION Performed By: #### L 200.69440, L200.84147 #### Test performed at: [address] [address] PROTIMEon 12-13-2020 INR Coag (PPP) [Relative time] 1.03 {INR} Normal 0.00-1.20 [facility] Comment on above: Order Comment: TEST: UA Added TO SPECIMEN at [facility]12/12/20 by [facility] [employer] Result Comment: Socrates mmended therapeutic range is an INR of 2.0-3.0 except for prevention of recurrent acute IN and mechanical prosthetic heart valve where an INR of 2.5-3.5 is recommended. Performed By: #### L 600.98562, L600.52052, L600.25440 #### Test performed at: [address] [address] PT SEC 11.0 seconds Normal 9.0-12.5 [facility] Comment on above: Order Comment: TEST: UA Added TO SPECIMEN at [facility]12/12/20 by [employer] [employer] Performed By: #### L 600.19316, L600.29690, L600.19086 #### Test performed at: [address] [address] [id number] 12-13-2020 SARS-CoV-2 (COVID-19) RNA DONNA+probe Ql (Unsp spec) Methodology: PCR Negative results do not preclude SARS-CoV-2 infection and should not be used as the sole basis for patient management decisions. Negative results must be combined with clinical observations, patient history, and epidemiological information. False-negative results may occur if the viruses are present at a level that is below the analytical sensitivity of the assay or if mutations are present in the regions targeted by the test. False negative or invalid results may occur due to interference or the presence of inhibitors. Improper collection, storage or transport of specimens may lead to false negative or invalid results. [employer] SARS-CoV-2 Test is only for use under the Food and Drug Administration's Emergency Use Authorization. The [employer] SARS-CoV-2 Test Letter of Authorization, along with the authorized Fact Sheet for Healthcare Providers, the authorized Fact Sheet for Patients, and authorized labeling are available on the FDA website: https://www.fda.gov/Me dicalDevices/Safety/ EmergencySituations/uc i131573.htm SARS-CoV-2 DONNA NOT DETECTED Normal [facility] Comment on above: Order Comment: TEST: UA Added TO SPECIMEN at 233012/12/20 by [employer] Performed By: #### L 600.80694, L600.45716, L600.29537 #### Test performed at: [address] [address] TROPONIN QUANTon 12-13-2020 TROPONIN I < 0.015 Normal 0.01-0.045 [facility] Comment on above: Order Comment: TEST: CMP Added TO SPECIMEN at 232812/12/20 by [employer] Performed By: #### L 500.64361, L500.13953, L500.13791, L500.21871, L500.03091 #### Test performed at: [address] [address] UA COMPLETEon 12-13-2020 Appearance (U) CLEAR Normal CLEAR [facility] Comment on above: Order Comment: TEST: UA Added TO SPECIMEN at 233012/12/20 by [employer] Performed By: #### L 600.35068, L600.47249, L600.99890 #### Test performed at: [address] [address] Bilirubin Ql (U) Negative Normal NEGATIVE [facility] Comment on above: Order Comment: TEST: UA Added TO SPECIMEN at 233012/12/20 by [employer] Performed By: #### L 600.40379, L600.00356, L600.35969 #### Test performed at: [address] [address] CA OXALATE CRY Trace Normal [facility] Comment on above: Order Comment: TEST: UA Added TO SPECIMEN at 233012/12/20 by [employer] Performed By: #### L 600.88833, L600.94311, L600.42471 #### Test performed at: [address] [address] CELLULAR CAST 3-5 Critically abnormal NEGATIVE [facility] Comment on above: Order Comment: TEST: UA Added TO SPECIMEN at 233012/12/20 by [employer] Performed By: #### L 600.09898, L600.34313, L600.41520 #### Test performed at: [address] [address] Color (U) YELLOW Normal YELLOW [facility] Comment on above: Order Comment: TEST: UA Added TO SPECIMEN at 233012/12/20 by [employer] Performed By: #### L 600.85955, L600.11822, L600.12620 #### Test performed at: [address] [address] EPITH CELLS 0-2 Normal 0-10 [facility] Comment on above: Order Comment: TEST: UA Added TO SPECIMEN at 233012/12/20 by [employer] Performed By: #### L 600.32898, L600.28838, L600.90698 #### Test performed at: [address] [address] Glucose Ql (U) Negative Normal NEGATIVE [facility] Comment on above: Order Comment: TEST: UA Added TO SPECIMEN at 233012/12/20 by [employer] Performed By: #### L 600.42756, L600.53990, L600.41743 #### Test performed at: [address] [address] Hemoglobin Ql (U) Negative Normal NEGATIVE [facility] Comment on above: Order Comment: TEST: UA Added TO SPECIMEN at 233012/12/20 by [employer] Performed By: #### L 600.76230, L600.10482, L600.39419 #### Test performed at: [address] [address] HYALINE CAST 0-2 Normal 0-2 [facility] Comment on above: Order Comment: TEST: UA Added TO SPECIMEN at 233012/12/20 by [employer] Performed By: #### L 600.44948, L600.82676, L600.34638 #### Test performed at: [address] [address] KETONE Negative Normal NEGATIVE [facility] Comment on above: Order Comment: TEST: UA Added TO SPECIMEN at 233012/12/20 by [employer] Performed By: #### L 600.61192, L600.64034, L600.90143 #### Test performed at: [address] [address] LEUK ESTERASE Negative Normal NEGATIVE [facility] Comment on above: Order Comment: TEST: UA Added TO SPECIMEN at 233012/12/20 by [employer] Performed By: #### L 600.84325, L600.56598, L600.39009 #### Test performed at: [address] [address] Nitrite Ql (U) Negative Normal NEGATIVE [facility] Comment on above: Order Comment: TEST: UA Added TO SPECIMEN at 233012/12/20 by [employer] Performed By: #### L 600.68229, L600.77469, L600.61104 #### Test performed at: [address] [address] Protein Ql (U) Negative Normal NEGATIVE [facility] Comment on above: Order Comment: TEST: UA Added TO SPECIMEN at 233012/12/20 by [employer] Performed By: #### L 600.91835, L600.90726, L600.98943 #### Test performed at: [address] [address] RBC 0-2 Normal 0-3 [facility] Comment on above: Order Comment: TEST: UA Added TO SPECIMEN at 233012/12/20 by [employer] Performed By: #### L 600.16544, L600.75698, L600.29024 #### Test performed at: [address] [address] SPEC GRAV 1.016 Normal 1.005-1.030 [facility] Comment on above: Order Comment: TEST: UA Added TO SPECIMEN at 233012/12/20 by [employer] Performed By: #### L 600.28727, L600.74736, L600.55046 #### Test performed at: [address] [address] UA ASC ACID Negative Normal [facility] Comment on above: Order Comment: TEST: UA Added TO SPECIMEN at 233012/12/20 by [employer] Performed By: #### L 600.93325, L600.07890, L600.99602 #### Test performed at: [address] [address] UA PH 6.0 Normal 5.0-8.0 [facility] Comment on above: Order Comment: TEST: UA Added TO SPECIMEN at 233012/12/20 by [employer] Performed By: #### L 600.58897, L600.45714, L600.76859 #### Test performed at: [address] [address] UROBIL NORMAL Normal NORMAL [facility] Comment on above: Order Comment: TEST: UA Added TO SPECIMEN at 233012/12/20 by [employer] Performed By: #### L 600.60914, L600.71218, L600.34388 #### Test performed at: [address] [address] WBC 0-2 Normal 0-5 [facility] Comment on above: Order Comment: TEST: UA Added TO SPECIMEN at 233012/12/20 by [employer] Performed By: #### L 600.57897, L600.46340, L600.10110 #### Test performed at: [address] [address] UR HCG QUALon 12-13-2020 UR HCG QUAL Negative Normal [facility] Comment on above: Order Comment: TEST: UA Added TO SPECIMEN at 2331 12/12/20 by [employer] Performed By: #### L 600.82865, L600.36127, L600.40517 #### Test performed at: [facility] [address], [place] [address] Add on test from HISon 10-21 Add on test from HIS Accepted Normal [facility] Comment on above: Result Comment: Spec imen available & acceptable for analysis. Performed By: #### A DDON #### [facility] [address], [place] CKon 10-21-2020 CK [Catalytic activity/Vol] 42 U/L Normal 30-170 [facility] Comment on above: Performed By: #### H EMDF, QWAL2, ETOH4, CMP3, CK3 #### [facility] [address], [place] Fentanyl Screen, Urineon Fentanyl Screen, Urn Positive Normal Negative [facility] Comment on above: Result Comment: Fent anyl has been screened for by Immunoassay at a 2ng/ml threshold. POSITIVE results are not confirmed by a more specific alternative method unless requested. If confirmation is needed, request confirmation under separate order. NOTE: These results are for medical treatment only. Analysis performed using non-forensic procedures. Performed By: #### C UA2, FENTU, DRGA4 ####[facility] [employer] [id number] [place], [place] Comp Metabolic Panelon 10-20 Calcium [Mass/Vol] 8.8 mg/dL Normal 8.4-10.4 [facility] Comment on above: Performed By: #### H EMDF, QWAL2, ETOH4, CMP3, CK3 #### [facility] [employer] [facility] [address], [place] Glucose [Mass/Vol] 97 mg/dL Normal 70-100 [facility] Comment on above: Performed By: #### H EMDF, QWAL2, ETOH4, CMP3, CK3 #### [place] [address] [address], [place] ALP [Catalytic activity/Vol] 85 U/L Normal 38-126 [facility] Comment on above: Performed By: #### H EMDF, QWAL2, ETOH4, CMP3, CK3 #### [place] [address] [address] [place], [place] ALT [Catalytic activity/Vol] 49 U/L High 0-34 [facility] Comment on above: Result Comment: The ALT test is performed by an updated assay method. Please note that the reference intervals have been changed and are now sex specific. Performed By: #### H EMDF, QWAL2, ETOH4, CMP3, CK3 #### [place] [address] [address] [place], [place] Anion gap [Moles/Vol] 4 mmol/L Normal 3-13 [facility] Comment on above: Performed By: #### H EMDF, QWAL2, ETOH4, CMP3, CK3 #### [place] [address] [address] [place], [place] AST [Catalytic activity/Vol] 45 U/L Normal 15-46 [facility] Comment on above: Performed By: #### H EMDF, QWAL2, ETOH4, CMP3, CK3 #### [place] [address] [address] [place], [place] Bilirubin [Mass/Vol] 0.5 mg/dL Normal 0.2-1.3 [facility] Comment on above: Performed By: #### H EMDF, QWAL2, ETOH4, CMP3, CK3 #### [place] [address] [address] [place], [place] CO2 [Moles/Vol] 28 mmol/L Normal 22-30 [facility] Comment on above: Performed By: #### H EMDF, QWAL2, ETOH4, CMP3, CK3 #### [place] [address] [address] [place], [place] Creatinine [Mass/Vol] 0.74 mg/dL Normal 0.52-1.25 [facility] Comment on above: Performed By: #### H EMDF, QWAL2, ETOH4, CMP3, CK3 #### [address] eGFR OTHER > 90.0 Normal >60 [facility] Comment on above: Result Comment: KDIG O guidelines provide the following GFR categories: Stage GFR(ml/min/1.73 m2) Terms G1 >=90 Normal or high G2 60-89 Mildly decreased* G3a 45-59 Mildly to moderately decreased G3b 30-44 Moderately to severely decreased G4 15-29 Severely decreased G5 <15 Kidney failure *Relative to young adult level. In the absence of evidence of kidney damage, neither GFR category G1 nor G2 fulfill the criteria for CKD. The CKD-EPI equation is validated in individuals 18 years of age and older. Currently the best equation for estimating glomerular filtration rate (GFR) from serum creatinine in children is the Bedside Mays equation. It is less accurate in patients with extremes of muscle mass, restriction of dietary protein, ingestion of creatine, extra-renal metabolism of creatinine, or treatment with medications that affect renal tubular creatinine secretion. Performed By: #### H EMDF, QWAL2, ETOH4, CMP3, CK3 #### [address] GFR/1.73 sq M.predicted among blacks MDRD (S/P/Bld) [Vol rate/Area] mL/min/{1.73_m2} Normal >60 [facility] Comment on above: Performed By: #### H EMDF, QWAL2, ETOH4, CMP3, CK3 #### [address] Protein [Mass/Vol] 6.4 g/dL Normal 6.3-8.2 [facility] Comment on above: Performed By: #### H EMDF, QWAL2, ETOH4, CMP3, CK3 #### [address] Urea nitrogen [Mass/Vol] 6 mg/dL Low 7-20 [facility] Comment on above: Performed By: #### H EMDF, QWAL2, ETOH4, CMP3, CK3 #### [address], [place] Potassium [Moles/Vol] 3.8 mmol/L Normal 3.5-5.1 [facility] Comment on above: Performed By: #### H EMDF, QWAL2, ETOH4, CMP3, CK3 #### [place] [address] [address] [place], [place] Sodium [Moles/Vol] 138 mmol/L Normal 135-145 [facility] Comment on above: Performed By: #### H EMDF, QWAL2, ETOH4, CMP3, CK3 #### [place] [address] [place], [place] Albumin [Mass/Vol] 3.4 g/dL Low 3.5-5.0 [facility] Comment on above: Performed By: #### H EMDF, QWAL2, ETOH4, CMP3, CK3 #### [place] [address] [place], [place] Chloride [Moles/Vol] 105 mmol/L Normal 98-107 [facility] Comment on above: Performed By: #### H EMDF, QWAL2, ETOH4, CMP3, CK3 #### [place] [address] [place], [place] Complete Urinalysison 2020 Appearance (U) Clear Normal Clear [facility] Comment on above: Result Comment: . Performed By: #### C UA2, FENTU, DRGA4 #### [place] [address] [address] [place], [place] Bacteria LM.HPF (Urine sed) [#/Area] Negative Normal Negative [facility] Comment on above: Result Comment: . Performed By: #### C UA2, FENTU, DRGA4 #### [address] Bilirubin,Urine Negative Normal Negative [facility] Comment on above: Result Comment: . Performed By: #### C UA2, FENTU, DRGA4 #### [place] [address] [address] [place], [place] Color (U) Light-Yellow Normal Lt. Yellow [facility] Comment on above: Result Comment: . Performed By: #### C UA2, FENTU, DRGA4 #### [place] [address] [address] [place], [place] Glucose Ql (U) Normal Normal Normal (<70) [facility] Comment on above: Result Comment: . Performed By: #### C UA2, FENTU, DRGA4 #### [place] [address] [place], [place] Ketone,Urine Negative Normal Negative [facility] Comment on above: Result Comment: . Performed By: #### C UA2, FENTU, DRGA4 #### [place] [address] [place], [place] Leukocytes,Urine Negative Normal Negative [facility] Comment on above: Result Comment: . Performed By: #### C UA2, FENTU, DRGA4 #### [place] [address] [place], [place] Mucous Threads Few Normal Negative [facility] Comment on above: Result Comment: . Performed By: #### C UA2, FENTU, DRGA4 #### [place] [address] [place], [place] Nitrites,Urine Negative Normal Negative [facility] Comment on above: Result Comment: . Performed By: #### C UA2, FENTU, DRGA4 #### [place] [address] [place], [place] Occult Blood,Urine Negative Normal Negative [facility] Comment on above: Result Comment: . Performed By: #### C UA2, FENTU, DRGA4 #### [place] [address] [place], [place] pH,Urine 5.5 Normal 5.0-8.0 [facility] Comment on above: Result Comment: . Performed By: #### C UA2, FENTU, DRGA4 #### [place] [address] [place], [place] RBC, Urine 0 - 2 Normal 0-2 [facility] Comment on above: Result Comment: . Performed By: #### C UA2, FENTU, DRGA4 #### [facility] [address] [place] [address] Specific [place],Urine 1.019 Normal 1.005 - 1.030 [facility] Comment on above: Result Comment: . Performed By: #### C UA2, FENTU, DRGA4 #### [facility] [address] [place] [address] Squamous Epithelial 3 - 5 Normal 3-5 [facility] Comment on above: Result Comment: . Performed By: #### C UA2, ANABELAU, DRGA4 #### [facility] [address], [place] Total Protein,Urine Negative Normal Negative [facility] Comment on above: Result Comment: . Performed By: #### C UA2, ANABELAU, DRGA4 #### [place] [address] [place], [place] Urobilinogen,Urine Normal Normal Normal (0-1) [facility] Comment on above: Result Comment: . Performed By: #### C UA2, ANABELAU, DRGA4 #### [place] [address] [place], [place] WBC, Urine 0 - 2 Normal 0-5 [facility] Comment on above: Result Comment: . Performed By: #### C UA2, FENTU, DRGA4 #### [place] [address] [place] [address] Drugs of Abuseon 10-20-2020 Cocaine, Ur Negative Normal [facility] Comment on above: Performed By: #### C UA2, ANABELAU, DRGA4 #### [place] [address] [place], [place] Amphetamines, Ur Positive Normal [facility] Comment on above: Performed By: #### C UA2, ANABELAU, DRGA4 #### [place] [address], [place] Phencyclidine (PCP), Ur Negative Normal [facility] Comment on above: Result Comment: The expected value for all of the drugs listed above is Negative. The following drugs or drug groups have been screened for by Immunoassay at the following thresholds: Amphetamine class (1000 ng/mL), Barbiturates (200 ng/mL), Benzodiazepines (200 ng/mL), Cocaine (300 ng/mL), Methadone (300 ng/mL), Opiates (300 ng/mL), Oxycodone (100 ng/mL), and PCP (25 ng/mL). NOTE: These results are for medical treatment only. Analysis performed using non-forensic procedures. POSITIVE results are NOT confirmed by a more specific alternative method unless requested. If confirmation is needed, request confirmation under separate order. Performed By: #### C UA2ANABELAU, DRGA4 #### [place] [address], [place] Methadone, Ur Negative Normal [facility] Comment on above: Performed By: #### C UA2ANABELAU, DRGA4 #### [place] [address] [place], [place] Opiates, Ur Negative Normal [facility] Comment on above: Performed By: #### C UA2ANABELAU, DRGA4 #### [place] [address] [place], [place] Barbiturates, Ur Negative Normal [facility] Comment on above: Performed By: #### C UA2 FENTU, DRGA4 #### [place] [address] [place], [place] Benzodiazepines, Ur Negative Normal [facility] Comment on above: Performed By: #### C UA2 FENTU, DRGA4 #### [place] [address] [place], [place] Oxycodone/Oxymorphin e,Ur Negative Normal [facility] Comment on above: Performed By: #### C UA2, FENTU, DRGA4 #### [place] [address], [place] ED Provider Noteon ED Provider Note Emergency Department Encounter [facility] EMERGENCY DEPT Patient: Maria T Wynne : 1995 Date of Evaluation: 10/20/2020 ED Supervising Physician: Oumar Garcia MD I independently examined and evaluated Maria T Wynne. In brief, Maria T Wynne is a 25 y.o. female that presents to the emergency department requesting help with substance abuse, opioid dependence. Patient is using IV fentanyl. Also using methamphetamine. Says she is tried Suboxone previously by did not have adequate response and is wishing inpatient detox. She has some low back pain. No fevers or chills. Focused exam: Awake, alert, no distress. Mildly low blood pressure is noted, rest of vital signs are benign. No tachycardia or fever. Full range of motion of the back. Mild diffuse lumbar tenderness. No overlying skin changes. Brief ED course/MDM: Urine drug screen positive for amphetamines. Urine fentanyl is pending. COVID-19 negative. Urinalysis negative. test negative. Alcohol level negative. CBC and CMP are benign. Patient felt to be medically stable for detox admission. Will consult with addiction physician. All diagnostic, treatment, and disposition decisions were made by myself in conjunction with the DALILA. For all further details of the patient's emergency department visit, please see their documentation. (Please note that portions of this note may have been completed with a voice recognition program. Efforts were made to edit the dictations but occasionally words are mis-transcribed.) Oumar Garcia MD [employer] Oumar Garcia MD 10/20/20 2068 [facility] ED Provider Note [facility] Patient: Maria T Wynen : 1995 Date of Evaluation: 10/20/2020 ED D[facility] Provider: Christiano Timmons PA-C ChiefComplaint Chief Complaint Patient presents with ? Addiction Problem Here for detox from fentanyl. Uses IV. Pt states she feels like she has been withdrawling all day. KENDALL Wynne is a 25 y.o. female presents seeking inpatient detox services, has opioid dependence, uses IV fentanyl daily, roughly 1 g. Last use this morning. Feels she is acutely withdrawing with restlessness, body aches, anxiety, GI upset, nausea. States she has been on detox unit at [facility] before. Denies any other substance use or acute complaints. Has 8/10 generalized body ache pain, no aggravating or alleviating factors to symptoms. I initially saw the patient in triage, then assigned myself to be patient's primary ED provider, please see my triage note for details on initial presentation. ROS: Review of Systems At least 10 systems reviewed and otherwise acutely negative except as in the [place]. Past History Past Medical History: Diagnosis Date ? Liver disease ? Seizures (HCC) Drug use or withdrawal ? Thyroid disease Past Surgical History: Procedure Laterality Date ? APPENDECTOMY ? DILATION AND CURETTAGE OF UTERUS ? SHOULDER SURGERY Social History Socioeconomic History ? Marital status: Single Spouse name: None ? Number of children: None ? Years of education: None ? Highest education level: None Occupational History ? None Tobacco Use ? Smoking status: Current Every Day Smoker Packs/day: 1.00 Types: Cigarettes ? Smokeless tobacco: Never Used Vaping Use ? Vaping Use: Never used Substance and Sexual Activity ? Alcohol use: Not Currently ? Drug use: Yes Types: IV, Opiates Comment: heroin, fentanyl, suboxone, xanax ? Sexual activity: Yes Partners: Male Other Topics Concern ? None Social History Narrative ? None Social Determinants of Health Financial Resource Strain: ? Difficulty of Paying Living Expenses: Food Insecurity: ? Worried About Running Out of Food in the Last Year: ? Ran Out of Food in the Last Year: Transportation Needs: ? Lack of Transportation (Medical): ? Lack of Transportation (Non-Medical): Physical Activity: ? Days of Exercise per Week: ? Minutes of Exercise per Session: Stress: ? Feeling of Stress : Social Connections: ? Frequency of Communication with Friends and Family: ? Frequency of Social Gatherings with Friends and Family: ? Attends Sikh Services: ? Active Member of Clubs or Organizations: ? Attends Club or Organization Meetings: ? Marital Status: Intimate Partner Violence: ? Fear of Current or Ex-Partner: ? Emotionally Abused: ? Physically Abused: ? Sexually Abused: Medications/Allergies Discharge Medication List as of 10/21/2020 12:27 AM CONTINUE these medications which have NOT CHANGED Details polyethylene glycol (MIRALAX) powder Take 17 g by mouth 2 times dailyHistorical Med cloNIDine (CATAPRES) 0.1 MG tablet Take 0.1 mg by mouth 3 times dailyHistorical Med Norethin Tres-Eth Estrad-FE (MYRA FE 04/01 PO) Take 1 tablet by mouth daily Patient takes this medication at 8 am.Historical Med gabapentin (NEURONTIN) 600 MG tablet Take 600 mg by mouth 4 times daily. Indications: geting off the streets to replace the Lyrica that had been stopped. This was not prescribed by a physician. Historical Med ibuprofen (ADVIL;MOTRIN) 600 MG tablet Take 600 mg by mouth every 8 hours as needed for PainHistorical Med acyclovir (ZOVIRAX) 400 MG tablet Take 400 mg by mouth 2 times dailyHistorical Med Allergies Allergen Reactions ? Bactrim [Sulfamethoxazole-Trim ethoprim] ? Doxycycline ? Flagyl [Metronidazole] ? Penicillins ? Nickel Rash Physical Exam ED Triage Vitals [10/20/201930] BP Temp Temp Source Pulse Resp SpO2 Height Weight (!) 82/57 97.6 ?F (36.4 ?C) Tympanic 79 16 99 % 4' 11" (1.499 m) 115 lb (52.2 kg) Physical Exam Vitals and nursing note reviewed. Constitutional: General: She is not in acute distress. Appearance: She is not toxic-appearing or diaphoretic. Comments: Young female, slightly anxious, cooperative. Alert and oriented x4, mentating appropriately. HENT: Head: Normocephalic and atraumatic. Right Ear: Hearing and external ear normal. Left Ear: Hearing and external ear normal. Nose: Nose normal. Eyes: General: No scleral icterus. Right eye: No discharge. Left eye: No discharge. Conjunctiva/sclera: Conjunctivae normal. Cardiovascular: Rate and Rhythm: Normal rate and regular rhythm. Heart sounds: Normal heart sounds, S1 normal and S2 normal. Heart sounds not distant. No murmur heard. No friction rub. No gallop. No S3 or S4 sounds. Pulmonary: Effort: Pulmonary effort is normal. No accessory muscle usage or respiratory distress. Breath sounds: Normal breath bradley (more content not included)... Normal [facility] Ethanol Serum/Plasmaon 10-20 Ethanol-Serum/Plasma < 0.010 Normal 0.000-0.010 [facility] Comment on above: Result Comment: NOTE : This result is for medical treatment only. Analysis performed using non-forensic procedures. Performed By: #### H EMDF, QWAL2, ETOH4, CMP3, CK3 #### [address] [address] Hemogram w/ Autodiffon 10-20 Abs Baso Cnt 0.1 10*3/uL Normal 0.0-0.2 [facility] Comment on above: Performed By: #### H EMDF, QWAL2, ETOH4, CMP3, CK3 #### [address] [address] Abs Neutrophile Cnt 4.9 10*3/uL Normal 1.8-7.0 [facility] Comment on above: Performed By: #### H EMDF, QWAL2, ETOH4, CMP3, CK3 #### [address] Basophils/100 WBC (Bld) 0.7 % Normal 0.0-2.0 [facility] Comment on above: Performed By: #### H EMDF, QWAL2, ETOH4, CMP3, CK3 #### [address] Eosinophils (Bld) [#/Vol] 0.1 10*3/uL Normal 0.0-0.5 [facility] Comment on above: Performed By: #### H EMDF, QWAL2, ETOH4, CMP3, CK3 #### [address] Eosinophils/100 WBC (Bld) 1.1 % Normal 1.0-6.0 [facility] Comment on above: Performed By: #### H EMDF, QWAL2, ETOH4, CMP3, CK3 #### [address] Erythrocyte distribution width (RBC) [Ratio] 13.3 % Normal 11.5-14.5 [facility] Comment on above: Performed By: #### H EMDF, QWAL2, ETOH4, CMP3, CK3 #### [address] Granulocytes/100 WBC (Bld) 61.7 % Normal 40.0-80.0 [facility] Comment on above: Performed By: #### H EMDF, QWAL2, ETOH4, CMP3, CK3 #### [address] Hematocrit (Bld) [Volume fraction] 37.3 % Normal 35.0-47.0 [facility] Comment on above: Performed By: #### H EMDF, QWAL2, ETOH4, CMP3, CK3 #### [place] [address] [address] [place], [place] Hemoglobin (Bld) [Mass/Vol] 12.4 g/dL Normal 11.7-16.0 [facility] Comment on above: Performed By: #### H EMDF, QWAL2, ETOH4, CMP3, CK3 #### [address] Lymphocytes (Bld) [#/Vol] 2.5 10*3/uL Normal 1.0-4.3 [facility] Comment on above: Performed By: #### H EMDF, QWAL2, ETOH4, CMP3, CK3 #### [address] Lymphocytes/100 WBC (Bld) 31.2 % Normal 20.0-40.0 [facility] Comment on above: Performed By: #### H EMDF, QWAL2, ETOH4, CMP3, CK3 #### [address] MCH (RBC) [Entitic mass] 28.5 pg Normal 26.0-34.0 [facility] Comment on above: Performed By: #### H EMDF, QWAL2, ETOH4, CMP3, CK3 #### [address] MCHC 33.3 % Normal 32.0-36.0 [facility] Comment on above: Performed By: #### H EMDF, QWAL2, ETOH4, CMP3, CK3 #### [address] MCV (RBC) [Entitic vol] 85.4 fL Normal 79.0-98.0 [facility] Comment on above: Performed By: #### H EMDF, QWAL2, ETOH4, CMP3, CK3 #### [facility] [address], [place] Monocytes (Bld) [#/Vol] 0.4 10*3/uL Normal 0.0-0.8 [facility] Comment on above: Performed By: #### H EMDF, QWAL2, ETOH4, CMP3, CK3 #### [place] [address], [place] Monocytes/100 WBC (Bld) 5.3 % Normal 2.0-10.0 [facility] Comment on above: Performed By: #### H EMDF, QWAL2, ETOH4, CMP3, CK3 #### [place] [address], [place] Platelet mean volume (Bld)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 [facility] conc [facility] Work Phone: [phone] Protein mass conc yes [facility] Work Phone: [phone] Tobacco smoking status [facility] Work Phone: [phone] Tobacco smoking status [facility] Current every day smoker [facility] Work Phone: [phone] Office Visiton 08-24-2016 Documentation of current medications (procedure) Done Invalid Interpretation Code [facility] Work Phone: [phone] Protein mass conc [facility] Work Phone: [phone] Protein mass conc yes [facility] Work Phone: [phone] Smoking cessation education (procedure) yes Invalid Interpretation Code [facility] Work Phone: [phone] Tobacco smoking status [facility] Work Phone: [phone] Tobacco smoking status [facility] Current every day smoker [facility] Work Phone: [phone] Tobacco use [facility] Current every day smoker Invalid Interpretation Code [facility] Work Phone: [phone] Office Visiton 07-04-2016 Documentation of current medications (procedure) Done Invalid Interpretation Code [facility] Work Phone: [phone] Protein mass conc [facility] Work Phone: [phone] Protein mass conc yes [facility] Work Phone: [phone] Smoking cessation education (procedure) yes Invalid Interpretation Code [facility] Work Phone: [phone] Tobacco smoking status [facility] Work Phone: [phone] Tobacco smoking status [facility] Current every day smoker [facility] Work Phone: [phone] Tobacco use [facility] Current every day smoker Invalid Interpretation Code [facility] Work Phone: [phone] Office Visit: Spine Visiton 08-17-2015 General categories [interpretation] of Cervical or vaginal smear or scraping by Cyto stain Normal [facility] Work Phone: [phone] Vital Signs Date Time Vital Sign Value Performing Clinician Facility 11-21-2024 15:33-0400 Diastolic blood pressure 84 mm[Hg] Maury Aldana MD Work Phone: [facility] 11-21-2024 15:33-0400 Systolic blood pressure 142 mm[Hg] Maury Aldana MD Work Phone: [facility] 11-21-2024 15:20-0400 Body height 149.9 cm Maury Aldana MD Work Phone: [facility] 11-21-2024 15:20-0400 Body mass index (BMI) [Ratio] 38.38 kg/m2 Maury Aldana MD Work Phone: [facility] 11-21-2024 15:20-0400 Body temperature 97 [degF] Maury Aldana MD Work Phone: [facility] 11-21-2024 15:20-0400 Body weight 86.18 kg Maury Aldana MD Work Phone: [facility] 11-21-2024 15:20-0400 Heart rate 81 /min Maury Aldana MD Work Phone: [facility] 11-21-2024 15:20-0400 SaO2% (BldA) [Mass fraction] 97 % Maury Aldana MD Work Phone: [facility] 10-31-2024 15:28-0400 Diastolic blood pressure 68 mm[Hg] Maury Aldana MD Work Phone: [facility] 10-31-2024 15:28-0400 Systolic blood pressure 114 mm[Hg] Maury Aldana MD Work Phone: [facility] 10-31-2024 15:05-0400 Body height 149.9 cm Maury Aldana MD Work Phone: [facility] 10-31-2024 15:05-0400 Body mass index (BMI) [Ratio] 38.38 kg/m2 Maury Aldana MD Work Phone: [facility] 10-31-2024 15:05-0400 Body temperature 97.5 [degF] Maury Aldana MD Work Phone: [facility] 10-31-2024 15:05-0400 Body weight 86.18 kg Maury Aldana MD Work Phone: [facility] 10-31-2024 15:05-0400 Heart rate 107 /min Maury Aldana MD Work Phone: [facility] 10-31-2024 15:05-0400 SaO2% (BldA) [Mass fraction] 97 % Maury Aldana MD Work Phone: [facility] [employer] 05-13-2024 11:48-0500 Body mass index (BMI) [Ratio] 36.6 kg/m2 Ramona [place] REVIEW ENGINEER.MORTARMAN Work Phone: [facility] 05-13-2024 11:48-0500 Body weight 82.19 kg Ramona [place] REVIEW ENGINEER.MORTARMAN Work Phone: [facility] 05-13-2024 11:48-0500 Diastolic blood pressure 72 mm[Hg] Ramona [place] REVIEW ENGINEER.MORTARMAN Work Phone: [facility] 05-13-2024 11:48-0500 Systolic blood pressure 124 mm[Hg] Ramona [place] REVIEW ENGINEER.MORTARMAN Work Phone: [facility] 11-23-2023 12:55-0400 Heart rate 87 /min Meme Vergara MD Work Phone: [facility] 11-23-2023 12:55-0400 Respiratory rate 18 /min Meme Vergara MD Work Phone: [facility] 11-23-2023 12:55-0400 SaO2% (BldA) [Mass fraction] 96 % Meme Vergara MD Work Phone: [facility] 11-23-2023 12:40-0400 Diastolic blood pressure 57 mm[Hg] Meme Vergara MD Work Phone: [facility] 11-23-2023 12:40-0400 Systolic blood pressure 114 mm[Hg] Meme Vergara MD Work Phone: [facility] 11-23-2023 09:09-0400 Body mass index (BMI) [Ratio] 37.54 kg/m2 Meme Vergara MD Work Phone: [facility] 11-23-2023 09:09-0400 Body temperature 98.4 [degF] Meme Vergara MD Work Phone: [facility] 11-23-2023 09:09-0400 Body weight 84.3 kg Meme Vergara MD Work Phone: [facility] 11-06-2023 13:29-0400 Body height 149.9 cm Pac 3 Work Phone: [facility] 11-06-2023 13:29-0400 Body mass index (BMI) [Ratio] 37.37 kg/m2 Pac 3 Work Phone: [facility] 11-06-2023 13:29-0400 Body weight 83.92 kg Pac 3 Work Phone: [facility] 09-19-2023 11:47-0400 Body height 149.9 cm Rosio Morel MD Work Phone: [facility] 09-19-2023 11:47-0400 Body mass index (BMI) [Ratio] 37.76 kg/m2 Rosio Morel MD Work Phone: [facility] 09-19-2023 11:47-0400 Body weight 84.8 kg Rosio Morel MD Work Phone: [facility] 09-19-2023 11:47-0400 Diastolic blood pressure 76 mm[Hg] Rosio Morel MD Work Phone: [facility] 09-19-2023 11:47-0400 Systolic blood pressure 112 mm[Hg] Rosio Morel MD Work Phone: [facility] 08-21-2023 10:21-0400 Body mass index (BMI) [Ratio] 38.17 kg/m2 Rosio Morel MD Work Phone: [facility] 08-21-2023 10:21-0400 Body weight 85.73 kg Rosio Morel MD Work Phone: [facility] 08-21-2023 10:21-0400 Diastolic blood pressure 72 mm[Hg] Rosio Morel MD Work Phone: [facility] 08-21-2023 10:21-0400 Heart rate 100 /min Rosio Morel MD Work Phone: [facility] 08-21-2023 10:21-0400 Systolic blood pressure 104 mm[Hg] Rosio Morel MD Work Phone: [facility] 07-03-2023 14:20-0400 Diastolic blood pressure 72 mm[Hg] Infusion 5 Work Phone: [facility] 07-03-2023 14:20-0400 Heart rate 86 /min Infusion 5 Work Phone: [facility] 07-03-2023 14:20-0400 Respiratory rate 14 /min Infusion 5 Work Phone: [facility] 07-03-2023 14:20-0400 SaO2% (BldA) [Mass fraction] 98 % Infusion 5 Work Phone: [facility] 07-03-2023 14:20-0400 Systolic blood pressure 135 mm[Hg] Infusion 5 Work Phone: [facility] 06-23-2023 13:29-0400 Body weight 87.5 kg Rach Donald MD Work Phone: [facility] 06-23-2023 13:29-0400 Diastolic blood pressure 70 mm[Hg] Rach Donald MD Work [facility]: [facility] [facility] 06-[facility]-2023 13:29-0400 Systolic blood pressure 105 mm[Hg] Rach Donald MD Work Phone: [facility] 06-01-2023 14:20-0400 Body weight 87.54 kg Ramona Yany REVIEW ENGINEER.MORTARMAN Work Phone: [facility] 06-01-2023 14:20-0400 Diastolic blood pressure 70 mm[Hg] Ramona Kennesaw REVIEW ENGINEER.MORTARMAN Work Phone: [facility] 06-01-2023 14:20-0400 Systolic blood pressure 122 mm[Hg] Ramona [place] REVIEW ENGINEER.MORTARMAN Work Phone: [facility] 02-20-2023 09:08-0500 Body weight 92.03 kg Meme Vergara MD Work Phone: [facility] 02-20-2023 09:08-0500 Diastolic blood pressure 74 mm[Hg] Meme Vergara MD Work Phone: [facility] 02-20-2023 09:08-0500 Systolic blood pressure 116 mm[Hg] Meme Vergara MD Work Phone: [facility] 01-09-2023 15:31-0400 Body height 151 cm Willa Lau MD Work Phone: [facility] 01-09-2023 15:31-0400 Body weight 90.17 kg Willa Lau MD Work Phone: [facility] 01-09-2023 15:31-0400 Diastolic blood pressure 80 mm[Hg] Willa Lau MD Work Phone: [facility] 01-09-2023 15:31-0400 Heart rate 96 /min Willa Lau MD Work Phone: [facility] 01-09-2023 15:31-0400 SaO2% (BldA) [Mass fraction] 96 % Willa Lau MD Work Phone: [facility] 01-09-2023 15:31-0400 Systolic blood pressure 118 mm[Hg] Willa Lau MD Work Phone: [facility] 12-16-2022 00:40-0400 Body height 149.9 cm Psg Main Work Phone: [facility] 12-16-2022 00:40-0400 Body weight 88.5 kg Psg Main Work Phone: [facility] 11-08-2022 13:38-0400 Diastolic blood pressure 83 mm[Hg] David Filipe DDS Work Phone: [facility] 11-08-2022 13:38-0400 Heart rate 75 /min David Filipe DDS Work Phone: [facility] 11-08-2022 13:38-0400 Systolic blood pressure 125 mm[Hg] David Filipe DDS Work Phone: [facility] 11-07-2022 13:15-0400 Body weight 88.45 kg Nurse [facility] 11-07-2022 13:15-0400 Diastolic blood pressure 73 mm[Hg] Nurse [facility] 11-07-2022 13:15-0400 Heart rate 75 /min [facility] 11-07-2022 13:15-0400 Res[facility] 13 /[facility] 11-07-2022 13:15-0400 SaO2% (BldA) [Mass fraction] 95 % [facility] 11-07-2022 13:15-0400 Systolic blood pressure 118 mm[Hg] Nurse [facility] 09-29-2022 14:35-0400 Diastolic blood pressure 78 mm[Hg] Leah Umbel DO Work Phone: [facility] 09-29-2022 14:35-0400 Heart rate 79 /min Leah Umbel DO Work Phone: [facility] 09-29-2022 14:35-0400 Respiratory rate 17 /min Leah Umbel DO Work Phone: [facility] 09-29-2022 14:35-0400 SaO2% (BldA) [Mass fraction] 96 % Leah Umbel DO Work Phone: [facility] 09-29-2022 14:35-0400 Systolic blood pressure 122 mm[Hg] Leah Umbel DO Work Phone: [facility] 09-29-2022 13:01-0400 Body height 149.9 cm Leah Umbel DO Work Phone: [facility] 09-29-2022 13:01-0400 Body mass index (BMI) [Ratio] 39.59 kg/m2 Leah Umbel DO Work Phone: [facility] 09-29-2022 13:01-0400 Body weight 88.91 kg Leah Umbel DO Work Phone: [facility] 09-26-2022 16:00-0400 Diastolic blood pressure 84 mm[Hg] [facility] 09-26-2022 16:00-0400 Heart rate 84 /min [facility] 09-26-2022 16:00-0400 Respiratory rate 20 /min [facility] 09-26-2022 16:00-0400 SaO2% (BldA) [Mass fraction] 99 % [facility] 09-26-2022 16:00-0400 Systolic blood pressure 132 mm[Hg] [facility] 08-29-2022 15:55-0400 Diastolic blood pressure 80 mm[Hg] [facility] 08-29-2022 15:55-0400 Heart rate 78 /min [facility] 08-29-2022 15:55-0400 Respiratory rate 14 /min Nurse [facility] c 08-29-2022 15:55-0400 SaO2% (BldA) [Mass fraction] 97 % [facility] 08-29-2022 15:55-0400 Systolic blood pressure 112 mm[Hg] [facility] 08-29-2022 15:40-0400 Body weight 87.91 kg [facility] 07-13-2022 09:28-0400 Body height 149.9 cm Alena Green MD Work Phone: [facility] 07-13-2022 09:28-0400 Body weight 87.68 kg Alena Green MD Work Phone: [facility] 07-13-2022 09:28-0400 Diastolic blood pressure 85 mm[Hg] Alena Green MD Work Phone: [facility] 07-13-2022 09:28-0400 Heart rate 98 /min Alena Green MD Work Phone: [facility] 07-13-2022 09:28-0400 Respiratory rate 16 /min Alena Green MD Work Phone: [facility] 07-13-2022 09:28-0400 SaO2% (BldA) [Mass fraction] 95 % Alena Green MD Work Phone: [facility] 07-13-2022 09:28-0400 Systolic blood pressure 141 mm[Hg] Alena Green MD Work Phone: [facility] 07-04-2022 16:20-0400 Diastolic blood pressure 80 mm[Hg] [facility] 07-04-2022 16:20-0400 Heart rate 78 /min [facility] 07-04-2022 16:20-0400 Respiratory rate 15 /min Nurse [facility] 07-04-2022 16:20-0400 SaO2% (BldA) [Mass fraction] 97 % [facility] 07-04-2022 16:20-0400 Systolic blood pressure 116 mm[Hg] [facility] 06-15-2022 08:04-0400 Body height 149.9 cm Shira Cavazos MD Work Phone: [facility] 06-15-2022 08:04-0400 Body mass index (BMI) [Ratio] 37.65 kg/m2 Shira Cavazos MD Work Phone: [facility] 06-15-2022 08:04-0400 Body weight 84.55 kg Shira Cavazos MD Work Phone: [facility] 06-15-2022 08:04-0400 Diastolic blood pressure 75 mm[Hg] Shira Cavazos MD Work Phone: [facility] 06-15-2022 08:04-0400 Heart rate 86 /min Shira Cavazos MD Work Phone: [facility] 06-15-2022 08:04-0400 Systolic blood pressure 108 mm[Hg] Shira Cavazos MD Work Phone: [facility] 06-06-2022 15:20-0400 Diastolic blood pressure 70 mm[Hg] [facility] 06-06-2022 15:20-0400 Heart rate 70 /min [facility] 06-06-2022 15:20-0400 Respiratory rate 15 /min [facility] 06-06-2022 15:20-0400 SaO2% (BldA) [Mass fraction] 99 % [facility] 06-06-2022 15:20-0400 Systolic blood pressure 113 mm[Hg] [facility] 05-12-2022 14:05-0500 Body temperature 98.2 [degF] Rosie ESQUIVEL Work Phone: [facility] 05-09-2022 15:55-0500 Diastolic blood pressure 76 mm[Hg] [facility] 05-09-2022 15:55-0500 Heart rate 74 /min Nurse [facility] 05-09-2022 15:55-0500 Respiratory rate 14 /min Nurse [facility] 05-09-2022 15:55-0500 SaO2% (BldA) [Mass fraction] 97 % Nurse [facility] 05-09-2022 15:55-0500 Systolic blood pressure 113 mm[Hg] Nurse [facility] 04-07-2022 13:26-0500 Diastolic blood pressure 67 mm[Hg] Aricerie Willi REVIEW ENGINEER.MORTARMAN Work Phone: [facility] 04-07-2022 13:26-0500 Heart rate 82 /min Pawane Willi REVIEW ENGINEER.MORTARMAN Work Phone: [facility] 04-07-2022 13:26-0500 SaO2% (BldA) [Mass fraction] 97 % Cameron Banksm REVIEW ENGINEER.MORTARMAN Work Phone: [facility] 04-07-2022 13:26-0500 Systolic blood pressure 115 mm[Hg] Jefferie Willi REVIEW ENGINEER.MORTARMAN Work Phone: [facility] 03-18-2022 11:42-0500 Body weight 82.92 kg Ramona Yany REVIEW ENGINEER.MORTARMAN Work Phone: [facility] 03-18-2022 11:42-0500 Diastolic blood pressure 70 mm[Hg] Ramona Yany REVIEW ENGINEER.MORTARMAN Work Phone: [facility] 03-18-2022 11:42-0500 Systolic blood pressure 110 mm[Hg] Ramona Yany REVIEW ENGINEER.MORTARMAN Work Phone: [facility] 03-03-2022 14:52-0500 Diastolic blood pressure 89 mm[Hg] Bebe Mckenna MD Work Phone: [facility] 03-03-2022 14:52-0500 Heart rate 82 /min Bebe Mckenna MD Work Phone: [facility] 03-03-2022 14:52-0500 SaO2% (BldA) [Mass fraction] 93 % Bebe Mckenna MD Work Phone: [facility] 03-03-2022 14:52-0500 Systolic blood pressure 120 mm[Hg] Bebe Mckenna MD Work Phone: [facility] 01-10-2022 09:14-0400 Body weight 80.74 kg Ramona Yany REVIEW ENGINEER.MORTARMAN Work Phone: [facility] 01-10-2022 09:14-0400 Diastolic blood pressure 66 mm[Hg] Ramona Yany REVIEW ENGINEER.MORTARMAN Work Phone: [facility] 01-10-2022 09:14-0400 Systolic blood pressure 98 mm[Hg] Ramona Kennesaw REVIEW ENGINEER.MORTARMAN Work Phone: [facility] 10-25-2021 09:11-0400 Body weight 78.93 kg Ramona Yany REVIEW ENGINEER.MORTARMAN Work Phone: [facility] 10-25-2021 09:11-0400 Diastolic blood pressure 70 mm[Hg] Ramona [place] REVIEW ENGINEER.MORTARMAN Work Phone: [facility] 10-25-2021 09:11-0400 Systolic blood pressure 110 mm[Hg] Ramona [place] REVIEW ENGINEER.MORTARMAN Work Phone: [facility] 10-12-2021 14:08-0400 Body weight 78.93 kg Ramona Yany REVIEW ENGINEER.MORTARMAN Work Phone: [facility] 10-12-2021 14:08-0400 Diastolic blood pressure 74 mm[Hg] Ramona Yany REVIEW ENGINEER.MORTARMAN Work Phone: [facility] 10-12-2021 14:08-0400 Systolic blood pressure 118 mm[Hg] Ramona [place] REVIEW ENGINEER.MORTARMAN Work Phone: [facility] 06-28-2021 15:33-0400 Body weight 72.12 kg Rosie Crowellts REVIEW ENGINEER.CNM Work Phone: [facility] 06-28-2021 15:33-0400 Diastolic blood pressure 70 mm[Hg] Rosie Gordon REVIEW ENGINEER.CNM Work Phone: [facility] 06-28-2021 15:33-0400 Systolic blood pressure 100 mm[Hg] Rosie Gordon REVIEW ENGINEER.CNM Work Phone: [facility] 06-15-2021 15:07-0400 Body weight 69.85 kg Sera Flores MD Work Phone: [facility] 06-15-2021 15:07-0400 Diastolic blood pressure 83 mm[Hg] Sera Flores MD Work Phone: [facility] 06-15-2021 15:07-0400 Heart rate 87 /min Sera Flores MD Work Phone: [facility] 06-15-2021 15:07-0400 Systolic blood pressure 117 mm[Hg] Sera Flores MD Work Phone: [facility] 05-27-2019 23:28-0400 BMI (Body Mass Index) 26.26 kg/m2 [facility], [place] 05-27-2019 23:28-0400 Body Temperature 98.2 [degF] [facility] 05-27-2019 23:28-0400 Body weight 58.97 kg [facility] , [place] 05-27-2019 23:28-0400 Height 149.9 cm [facility] , [place] 05-27-2019 23:28-0400 Pulse (Heart Rate) 115 /min [facility], [place] 05-27-2019 23:28-0400 Pulse Oximetry 98 % [facility] , [place] 05-27-2019 23:28-0400 Respiratory Rate 20 /min [facility] 05-23-2019 17:21-0400 Body Temperature 98.71 [degF] [facility] [place] 05-23-2019 17:21-0400 BP Diastolic 90 mm[Hg] [facility] [place] 05-23-2019 17:21-0400 BP Systolic 122 mm[Hg] Micaela Foreman [facility] , [place] 05-23-2019 17:21-0400 Pulse (Heart Rate) 90 /min Micaela Foreman [facility], [place] 05-23-2019 17:21-0400 Pulse [facility]ximetry 98 % [facility] [place] 05-23-2019 17:21-0400 Respiratory Rate 16 /min [facility], [place] 05-21-2019 19:43-0400 BMI (Body Mass Index) 28.13 kg/m2 [facility] [place] 05-21-2019 19:43-0400 Body weight 58.97 kg [facility] [place] 05-21-2019 19:43-0400 Height 144.8 cm [facility] [place] 04-21-2016 10:36-0500 BMI (Body Mass Index) 23.79 kg/m2 [facility] Work Phone: 04-21-2016 10:36-0500 BP Diastolic 72 mm[Hg] [facility] Work Phone: 04-21-2016 10:36-0500 BP Systolic 102 mm[Hg] [facility] Work Phone: 04-21-2016 10:36-[address] [facility] Work Phone: 04-11-2016 13:30-[address] [facility] Work Phone: Encounters Encounter Date Encounter Type Care Provider Facility Start: 04-03-2025 ambulatory LLOYD DESAI MD~[id number] [facility] Start: 01-24-2025 ambulatory Michele Bell Facility: [facility] Start: 01-23-2025 Encounter for other preprocedural examination Mikepaige Motta [facility] Start: 2025 ambulatory MICHELE BELL DO Faci lity:A Start: 01-11-2025 ambulatory LLOYD DESAI MD~[id number] [facility] Start: 01-10-2025 End: 01-10-2025 ambulatory Neeru Georges Facility:[facility] Start: 12-30-2024 End: 12-30-2024 ambulatory Michele Bell Facility:[facility] Start: 12-12-2024 End: 01-06-2025 ambulatory LLOYD DESAI MD~[id number] [facility] Start: 12-04-2024 End: 12-04-2024 ambulatory MICHELE BELL DO Facility:[facility] Start: 12-04-2024 End: 12-04-2024 Patient encounter procedure MICHELE BELL DO [facility] Start: 12-04-2024 End: 12-04-2024 Well adult monitoring check done MICHELE BELL DO [facility] Start: 12-03-2024 End: 12-03-2024 ambulatory Michele Bell Facility:[facility] Start: 11-21-2024 End: 11-21-2024 ambulatory MENDIOLAJOHN ALDANA [facility] Start: 11-21-2024 End: 11-21-2024 Subsequent hospital visit by physician Maury Aldana MD Work Phone: [facility] Comment on above: Perineal pain in fem hima (Primary Dx) Start: 11-21-2024 End: 11-21-2024 ambulatory MENDIOLAJOHN Post [facility] Start: 11-21-2024 End: 11-21-2024 Subsequent hospital visit by physician Maury Aldana MD Work Phone: [facility] Comment on above: Pain Start: 11-14-2024 End: 12-10-2024 ambulatory LLOYD DESAI MD~[id number] [facility] Start: 11-06-2024 End: 11-08-2024 ambulatory SKINNY ELLIS [facility] Start: 11-06-2024 End: 11-08-2024 Subsequent hospital visit by physician [facility] 1 [facility] Comment on above: Right shoulder pain, unspecified chronicity; Pain Start: 10-31-2024 End: 10-31-2024 amb[facility] Start: 10-31-2024 End: 10-31-2024 Subsequent hospital visit by physician Maury Aldana MD Work Phone: [facility] Start: 10-31-2024 End: 10-31-2024 ambulatory [facility] [place] Start: 10-31-2024 End: 10-31-2024 Subsequent hospital visit by physician Henrry Pain Procedure C-[facility] Comment on above: Cervical pain Start: 10-24-2024 End: 11-05-2024 ambulatory LLOYD DESAI MD~[id number] [facility] Start: 10-23-2024 End: 10-25-2024 ambulatory MICAELA FOREMAN [facility] Start: 10-23-2024 End: 10-25-2024 Subsequent hospital visit by physician [facility] X[facility] Room 1 [facility] Comment on above: Pain in both knees, unspecified chronicity Start: 10-15-2024 End: 10-15-2024 ambulatory Michele Bell Facility:[facility] Start: 10-14-2024 End: 10-14-2024 ambulatory MICHELE BELL DO [facility] Start: 10-14-2024 End: 10-14-2024 Patient encounter procedure MICHELE BELL DO [facility] Start: 10-01-2024 End: 10-01-2024 ambulatory Michele Bell Facility:[facility] Start: 09-25-2024 End: 09-26-2024 ambulatory Ramona Yany REVIEW ENGINEER.MORTARMAN Work Phone: OB/Gynecology Start: 09-25-2024 End: 09-26-2024 Patient encounter procedure Ramona Kennesaw REVIEW ENGINEER.MORTARMAN Work Phone: OB/Gynecology Comment on above: Need to cancel APPOI NTMENT Start: 09-24-2024 End: 09-24-2024 ambulatory MICHELE BELL DO [facility] Start: 09-24-2024 End: 09-24-2024 Patient encounter procedure MICHELE BELL DO [facility] Start: 09-24-2024 End: 09-24-2024 Well adult monitoring check done MICHLEE BELL DO [facility] Start: 09-16-2024 End: 10-10-2024 ambulatory LLOYD DESAI MD~[id number] [facility] Start: 08-26-2024 End: 08-30-2024 ambulatory MICHELE BELL DO [facility] Start: 08-26-2024 End: 08-30-2024 Outreach Lab MICHELE BELL DO [facility] Start: 08-26-2024 End: 08-26-2024 ambulatory MICHELE BELL DO [facility] Start: 08-26-2024 End: 08-26-2024 Patient encounter procedure MICHELE BELL DO [facility] Start: 08-16-2024 End: 08-19-2024 Refill Ramona Slade APRN.MORTARMAN Work Phone: OB/Gynecology Comment on above: Refill Request Start: 08-15-2024 End: 09-09-2024 ambulatory LLOYD DESAI MD~[id number] [facility] Start: 08-08-2024 End: 08-08-2024 ambulatory MICHELE BELL DO [facility] Start: 08-08-2024 End: 08-08-2024 Patient encounter procedure MICHELE BELL DO [facility] Start: 08-06-2024 End: 08-06-2024 ambulatory Michele Bell Facility:[facility] Start: 07-24-2024 ambulatory Mike Friend Facility :[facility] Start: 07-22-2024 ambulatory Mike Friend Facility :[facility] Start: 07-18-2024 End: 08-10-2024 ambulatory LLOYD DESAI MD~[id number] [facility] Start: 07-08-2024 End: 07-08-2024 Emergency department patient visit Juancarlosюлия Quinteroser Facility:[facility] Start: 07-08-2024 End: 07-08-2024 ambulatory MICHELE BELL DO [facility] Start: 07-08-2024 End: 07-08-2024 Patient encounter procedure DENNYS HAMILTON MD [facility] Start: 06-13-2024 End: 07-10-2024 ambulatory LLOYD DESAI MD~[id number] [facility] Start: 06-11-2024 End: 06-11-2024 ambulatory Michele Jorgeins Facility:[facility] Start: 05-28-2024 End: 06-10-2024 ambulatory LLOYD DESAI MD~[id number] [facility] Start: 05-23-2024 End: 05-23-2024 ambulatory MICHELE E BELL DO [facility] Start: 05-22-2024 End: 05-22-2024 ambulatory Rowan Barajas NP Facility:[facility] Start: 05-18-2024 End: 05-18-2024 ambulatory Michele Jorgeins Facility:[facility] Start: 05-16-2024 End: 05-16-2024 ambulatory [facility] Facility:[facility] Start: 05-14-2024 End: 05-15-2024 Follow-up encounter Ramona Slade APRN.CNP Work Phone: OB/Gynecology Start: 05-13-2024 End: 05-13-2024 ambulatory MICHELE BELL Facility:[facility] Start: 05-13-2024 Encounter for gynecological examination (general) (routine) without abnormal findings RAMONA SLADE [facility] Start: 05-13-2024 End: 05-13-2024 Patient encounter procedure Ramona Slade MORTARMAN Work Phone: OB/Gynecology Comment on above: Encounter for gyneco logical examination (general) (routine) without abnormal findings (Primary Dx); Screening for malignant neoplasm of cervix; Encounter for screening for human papillomavirus (HPV); Surveillance for control, oral contraceptives; Vaginal irritation; Urethral irritation Start: 05-13-2024 End: 05-13-2024 Patient encounter status Ramona Slade ANUJA.MORTARMAN Work Phone: [facility] Start: 05-06-2024 End: 05-10-2024 ambulatory LLOYD DESAI MD~[id number] [facility] Start: 05-02-2024 End: 05-02-2024 [facility] Start: 04-24-2024 End: 04-24-2024 ambulatory Rowan Antonieta HOOKER LASTER Facility:[facility] Start: 04-24-2024 End: 04-24-2024 ambulatory Michele Bell Facility:[facility] Start: 04-17-2024 End: 05-08-2024 Telephone encounter Kortney Hanley MD Work Phone: [facility] Start: 04-16-2024 End: 04-16-2024 ambulatory Rowan Antonieta HOOKER LASTER Facility:[facility] Start: 04-15-2024 End: 04-15-2024 ambulatory Rowan Seadriano HOOKER LASTER Facility:[facility] Start: 03-27-2024 End: 03-27-2024 ambulatory Michele Bell Facility:[facility] Start: 03-19-2024 End: 03-19-2024 ambulatory MICHELE BELL DO [facility] Start: 03-19-2024 End: 03-19-2024 Patient encounter procedure DENNYS HAMILTON MD [facility] Start: 02-29-2024 ambulatory UNKNOWN PROVIDER Facili ty:[facility] Start: 02-29-2024 End: 02-29-2024 Patient encounter procedure Alexi Vo DDS Work Phone: [facility] Start: 02-06-2024 End: 02-06-2024 ambulatory MICHELE BELL DO Facility:[facility] Start: 02-06-2024 End: 02-06-2024 Patient encounter procedure MICHELE BELL DO [facility] Start: 01-25-2024 End: 01-29-2024 Telephone encounter Marie ESQUIVEL-C Work Phone: [facility] [place] [facility] Start: 01-22-2024 End: 01-22-2024 ambulatory [facility] Start: 01-22-2024 End: 01-22-2024 Office outpatient visit 25 minutes Marie ESQUIVEL-C Work Phone: [facility] [place] Comment on above: Acne vulgaris; Encounter for long-term (current) use of high-risk medication Start: 12-28-2023 End: 12-29-2023 Telephone encounter Meme Vergara MD Work Phone: [facility] Comment on above: Medication Concern Start: 12-06-2023 End: 12-06-2023 ambulatory MICHELE BELL Facility:[facility] Start: 11-27-2023 End: 11-27-2023 Telephone encounter Marie ESQUIVEL-C Work Phone: [facility] [place] Comment on above: Medication Problem ( Accutane) Start: 11-24-2023 End: 03-15-2024 Telephone encounter Meme Vergara MD Work Phone: Gynecology Comment on above: Post Op Follow Up Start: 11-23-2023 End: 11-23-2023 Subsequent hospital visit by physician Meme Vergara MD Work Phone: [facility] Comment on above: Chronic pelvic pain in female [R10.2, G89.29], Dysmenorrhea [N94.6], Vulvar pain [R10.2], Preop examination [Z01.818] Start: 11-16-2023 End: 11-16-2023 [facility] Start: 11-16-2023 End: 11-16-2023 Telephone encounter Marie Larios PA-C Work Phone: [facility] Start: 11-15-2023 End: 11-15-2023 Telephone encounter Meme Vergara MD Work Phone: Gynecology Comment on above: Medication Question Start: 11-15-2023 End: 11-20-2023 ambulatory Rosio Morel MD Work Phone: OB/Gynecology Comment on above: Issues with new test results Start: 11-15-2023 End: 11-15-2023 Office outpatient visit 25 minutes Marie Larios PA-C Work Phone: [facility] Comment on above: Acne vulgaris (Prima ry Dx); Encounter for long-term (current) use of high-risk medication Start: 11-14-2023 End: 11-14-2023 ambulatory [facility] Start: 11-14-2023 Encounter for other preprocedural examination MEME VERGARA [facility] Start: 11-09-2023 End: 11-09-2023 Patient encounter procedure MICHELE BELL DO [facility] Start: 11-07-2023 End: 11-07-2023 Telemedicine consultation with patient Nurse Property Management Intern Work Phone: Gynecology Start: 11-07-2023 End: 11-07-2023 ambulatory Nurse Property Management Intern Work Phone: Gynecology Comment on above: Educational circumst ances (Primary Dx) Start: 11-06-2023 End: 11-06-2023 Admission to [facility] 3 Work Phone: Pre Anesthesia Start: 11-06-2023 End: 11-06-2023 ambulatory MEME VERGARA Facility:[facility] Start: 11-06-2023 End: 11-06-2023 Anesthesia consultation Pacc 3 Work Phone: Pre Anesthesia Comment on above: Pre-op evaluation (P rimary Dx); MICHELLE (obstructive sleep apnea); Tobacco use; Other chronic pain; Hyperlipidemia, unspecified hyperlipidemia type; Opioid dependence with withdrawal (HCC); Obesity (BMI 30-39.9); Insulin resistance Start: 11-06-2023 End: 11-06-2023 Preprocedural examination done Pacc 3 Work Phone: [facility] Work Phone: Start: 10-29-2023 End: 10-29-2023 Letter encounter [facility] Start: 10-23-2023 ambulatory Meme dorman MD Work Phone: Gynecology Comment on above: Please call me zina Start: 10-16-2023 End: 10-16-2023 ambulatory MARIE LARIOS [facility] Start: 10-16-2023 End: 10-16-2023 Office outpatient visit 25 minutes Marie A [facility] P[facility] Work Phone: [facility] D[facility]at[facility] Comment on above: Neoplasm of uncertai n behavior of skin (Primary Dx); Acne vulgaris; Encounter for long-term (current) use of high-risk medication; examination or test, negative result Start: 10-13-2023 End: 10-13-2023 ambulatory Rosio Morel MD Work Phone: OB/Gynecology Comment on above: Genital warts (Prima ry Dx); Skin tag of vulva Start: 10-13-2023 End: 10-13-2023 Telemedicine consultation with patient Rosio Morel MD Work Phone: OB/Gynecology Start: 09-30-2023 ambulatory Rosio Morel MD Work Phone: Gynecology Comment on above: Procedure issues Start: 09-27-2023 Telephone encounter Meme gonzalez MD Work Phone: [facility] Comment on above: Future Appointment Start: 09-26-2023 Telephone encounter Meme gonzalez MD Work Phone: [facility] Comment on above: RESCHEDULE SURGERY Start: 09-20-2023 Telephone encounter Meme gonzalez MD Work Phone: [facility] Comment on above: RESCHEDULE SURGERY Start: 09-19-2023 Telephone encounter Rosio pena MD Work Phone: Gynecology Comment on above: Medication Question Start: 09-19-2023 End: 09-19-2023 Patient encounter procedure Rosio Morel MD Work Phone: Gynecology Comment on above: Vulvar lesion (Prima ry Dx); Genital warts Start: 09-18-2023 End: 09-18-2023 Patient encounter procedure Nurse Property Management Intern Work Phone: Gynecology Comment on above: Educational circumst ances (Primary Dx); APPOINTMENT CANCELLED Start: 09-18-2023 End: 09-18-2023 Telemedicine consultation with patient Nurse Property Management Intern Work Phone: Gynecology Start: 09-03-2023 ambulatory Meme dorman MD Work Phone: Gynecology Comment on above: Urgentish Start: 08-28-2023 ambulatory Rosio Morel MD Work Phone: OB/Gynecology Comment on above: Forgot to mention Start: 08-21-2023 End: 08-21-2023 Patient encounter procedure Rosio Morel MD Work Phone: OB/Gynecology Comment on above: Genital warts (Prima ry Dx); Vulvar itching Start: 08-15-2023 End: 08-15-2023 Telephone encounter Marie Larios PA-C Work Phone: [facility] Dermatology Comment on above: Medication Problem Start: 08-14-2023 ambulatory Tali barba PA-C Work Phone: Neurology Start: 08-14-2023 Patient encounter procedure Tali Boggs PA-C Work Phone: Neurology Comment on above: Sleep apnea Start: 08-04-2023 End: 08-04-2023 Telephone encounter Alexi Irizarrytia DDS Work Phone: [facility] Comment on above: RCT Start: 08-02-2023 End: 08-02-2023 Office outpatient visit 25 minutes Marie A Ck PERRY Work Phone: [facility] Dermat[facility] Comment on above: Acne vulgaris; Encounter for long-term current use of high risk medication; Other atopic dermatitis Start: 08-02-2023 End: 08-02-2023 [facility] Start: 07-31-2023 ambulatory Meme dorman MD Work Phone: Gynecology Comment on above: Reply Start: 07-25-2023 ambulatory Meme dorman MD Work Phone: Gynecology Comment on above: Kind of important Start: 07-23-2023 [facility] Start: 07-21-2023 Telephone encounter Alexi Gaviria john DDS Work Phone: [facility] Comment on above: Dental Start: 07-20-2023 End: 07-24-2023 ambulatory ALEXI IRIZARRYTIA Facility: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 (Primary Dx); Chronic pain syndrome; Fibromyalgia; Chronic bilateral low back pain with bilateral sciatica Following up on appo intment Start: 07-03-2023 End: 07-03-2023 ambulatory MARIE LARIOS [facility] Start: 07-03-2023 End: 07-03-2023 Office outpatient visit 25 minutes Marie Larios PA-C Work Phone: [facility] Dermatology Comment on above: Cheilitis (Primary D x); Acne vulgaris Start: 07-01-2023 ambulatory Kirsty Breaux RN [facility] C linical Communication Start: 07-01-2023 Patient encounter procedure Kirsty Breaux RN [facility] Clinical Communication Start: 06-28-2023 End: 06-28-2023 ambulatory Susana Miller MD Work Phone: Neurology Comment on above: MICHELLE (obstructive sle ep apnea) (Primary Dx); Opioid dependence with withdrawal (HCC); RLS (restless legs syndrome); Insomnia, unspecified type Start: 06-28-2023 End: 06-28-2023 Telemedicine consultation with patient Susana Miller MD Work Phone: [facility] Start: 06-23-2023 End: 06-23-2023 Office outpatient visit 15 minutes Desimemily Donald MD Work Phone: Neurology Pain Comment on above: Central sensitizatio n to pain (Primary Dx) Start: 06-10-2023 Get Medical Advice Ramona irby REVIEW ENGINEER.MORTARMAN Work Phone: OB/Gynecology Comment on above: prescription refills Replay to nurse mess age Start: 06-07-2023 Telephone encounter Marie shahid PA-C Work Phone: [facility] Dermatology Comment on above: Prior Authorization (Dupixent prior auth ) Start: 06-06-2023 Telephone encounter Ramona nicolas REVIEW ENGINEER.MORTARMAN Work Phone: OB/Gynecology Comment on above: Results Start: 06-01-2023 End: 06-01-2023 Patient encounter procedure Ramona Slade REVIEW ENGINEER.MORTARMAN Work Phone: OB/Gynecology Comment on above: Vulvar irritation (P rimary Dx) Start: 05-31-2023 End: 06-01-2023 ambulatory DENNYS HAMILTON MD Facility:B Start: 05-31-2023 End: 05-31-2023 Patient encounter procedure DENNYS HAMILTON MD [facility] Start: 05-30-2023 End: 05-30-2023 ambulatory MARIE LARIOS [facility] Start: 05-30-2023 End: 05-30-2023 Office outpatient visit 25 minutes Marie Larios PA-C Work Phone: [facility] D[facility] Comment on above: Acne vulgaris (Prima ry Dx); Encounter for long-term current use of high risk medication; Genital warts; Milia Start: 05-30-2023 Telephone encounter Tali swann PA-C Work Phone: Neurology Comment on above: PAP Rx Faxed (DME: D [facility]) Start: 05-30-2023 End: 05-31-2023 ambulatory DENNYS HAMILTON MD Facility:B Start: 05-30-2023 End: 05-30-2023 Patient encounter procedure DENNYS HAMILTON MD [facility] Start: 05-29-2023 Tele[facility] encounter [facility] Work Phone: Neurology Comment on above: PAP Setup Start: 05-22-2023 ambulatory Meme dorman MD Work Phone: Gynecology Comment on above: Cancel appt Start: 05-16-2023 Telephone encounter Tali sidhuady PA-C Work Phone: Neurology Comment on above: PAP Rx Faxed (DME: D [facility]O ) Start: 05-13-2023 ambulatory Ramona Slade REVIEW ENGINEER.MORTARMAN Work Phone: [facility] Start: 05-13-2023 Follow-up encounter Ramona nicolas REVIEW ENGINEER.MORTARMAN Work Phone: OB/Gynecology Comment on above: Follow up questions Start: 05-02-2023 End: 05-07-2023 ambulatory DENNYS HAMILTON MD Facility:B Start: 04-28-2023 End: 04-28-2023 [facility] Arturo HILLYD Work Phone: Psychology Comment on above: 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); Chronic pelvic pain in female; Dysmenorrhea; Irritable bowel syndrome with constipation Start: 04-27-2023 ambulatory Tali barba PA-C Work Phone: Neurology Comment on above: Question Start: 04-27-2023 End: 04-27-2023 Patient encounter procedure Tali Boggs PA-C Work Phone: Neurology Comment on above: APPOINTMENT CANCELLE D (Primary Dx) Start: 04-27-2023 End: 04-27-2023 Telemedicine consultation with patient Tali Boggs PA-C Work Phone: [facility] Start: 04-24-2023 End: 04-24-2023 Office outpatient visit 25 minutes Marie Larios PA-C Work Phone: [facility] Dermatology Comment on above: Acne vulgaris (Prima ry Dx); Encounter for long-term (current) use of high-risk medication Start: 04-24-2023 End: 04-24-2023 [facility] Start: 04-17-2023 End: 04-18-2023 ambulatory MICHELE BELL DO Facility:B Start: 04-17-2023 End: 04-17-2023 Patient encounter procedure MICHELE BELL DO [facility] Start: 04-13-2023 End: 04-13-2023 Subsequent hospital visit by physician Mri [employer] [facility] Wstr (I-Stat/1.5t) Work Phone: Radiology Comment on above: Lumbosacral plexus d isorders [G54.1] Start: 03-30-2023 Telephone encounter Meme gonzalez MD Work Phone: [facility] Comment on above: Schedule Surgery; Mark khane Appointment Start: 03-29-2023 End: 04-03-2023 ambulatory BHUMIKA MELLO REVIEW ENGINEER-MORTARMAN Facility:B Start: 03-29-2023 End: 04-02-2023 Out[facility] Lab BHUMIKA MELLO REVIEW ENGINEER-MORTARMAN [facility] Start: 03-29-2023 End: 03-29-2023 Patient encounter procedure MICHELE BELL DO [facility] Start: 03-23-2023 Telephone encounter Marie shahid PA-C Work Phone: [facility] Dermatology Start: 03-22-2023 End: 03-23-2023 ambulatory TALI HERNANDEZMAYNOR Facility:[id number] Start: 03-20-2023 Telephone encounter Marie shahid PA-C Work Phone: [facility] Dermatology Comment on above: Prior Authorization (Isotretinoin) Start: 03-16-2023 End: 03-16-2023 Office outpatient visit 25 minutes Marie ESQUIVEL-C Work Phone: [facility] Dermatology Comment on above: Acne vulgaris (Prima ry Dx); Encounter for long-term current use of high risk medication; Other atopic dermatitis Start: 02-28-2023 Telephone encounter Marie shahid PA-C Work Phone: [facility] Dermatology Comment on above: Appointment Request Start: 02-20-2023 End: 02-20-2023 Office outpatient visit 25 minutes Meme Vergara MD Work Phone: Gynecology Comment on above: Vulvar pain (Primary Dx); Lumbosacral plexus disorders; Segmental and somatic dysfunction of sacral region; Chronic pelvic pain syndrome in female; Coccygodynia Start: 02-16-2023 ambulatory Meme dorman MD Work Phone: Gynecology Comment on above: Ludmila O Start: 02-01-2023 Telephone encounter Meme gonzalez MD Work Phone: [facility] Comment on above: Patient Question (Ne rve block question) Insurance Authorizat ion Start: 01-29-2023 ambulatory [facility] Start: 01-29-2023 Follow-up encounter Willa Lau MD Work Phone: OB/Gynecology Comment on above: Follow up question Start: 01-20-2023 Telephone encounter Meme gonzalez MD Work Phone: Gynecology Comment on above: Trimmer Climber - O ther (JAMES Needed) Start: 01-16-2023 Orders Only Marie Larios PA-C Work Phone: [facility] Dermatology Comment on above: Care Coordination (P 2P for MRI/Requested PT records) Start: 01-09-2023 End: 01-09-2023 Patient encounter procedure Willa Lau MD Work Phone: OB/Gynecology Comment on above: Metabolic syndrome ( Primary Dx); Hypertension, unspecified type; Dyslipidemia; MICHELLE (obstructive sleep apnea); Hepatitis C test positive; Class 2 severe obesity with serious comorbidity and body mass index (BMI) of 39.0 to 39.9 in adult, unspecified obesity type ; Encounter for vitamin deficiency screening; Screening cholesterol level; Screening for thyroid disorder; Screening for diabetes mellitus; Screening for deficiency anemia Start: 01-03-2023 ambulatory Meme dorman MD Work Phone: Gynecology Comment on above: Nerve block Start: 12-29-2022 ambulatory Bebe roque MD Work Phone: Pain Management Comment on above: Medication Start: 12-29-2022 Telephone encounter Ramona [facility] maria isabel GRAHAM Work Phone: OB/Gynecology Comment on above: Patient Question Start: 12-26-2022 End: 12-26-2022 Office outpatient visit 25 minutes Marie Larios PA-C Work Phone: [facility] Dermatology Comment on above: Rash; Neoplasm of uncertain behavior of skin; Acne vulgaris; Encounter for long-term current use of high risk medication Start: 12-21-2022 ambulatory Meme dorman MD Work Phone: Gynecology Comment on above: Nerve block Start: 12-16-2022 Chart abstracting Psg Neur Toyin n Work Phone: Neurology Start: 12-09-2022 End: 12-09-[address] [facility] Kristi Espinoza CHE Work Phone: Pain Recovery Comment on above: Pain disorder associ ated with psychological factors and medical condition (Primary Dx); Chronic pain syndrome Start: 12-08-2022 End: 12-09-2022 ambulatory ROWAN BARAJAS Facility:[id number] Start: 12-01-2022 Telephone encounter Marie shahid PA-C Work Phone: [facility] Dermatology Comment on above: Medication Authoriza tion (Trulance denied) Start: 11-25-2022 ambulatory Leah Al DO Work Phone: Gastroenterology Comment on above: Trulance Start: 11-18-2022 Telephone encounter Bebe Mckenna MD Work Phone: Pain Management Comment on above: Ketamine infusion qu estion Start: 11-17-2022 Telephone encounter Bebe Mckenna MD Work Phone: Pain Management Comment on above: requesting increase with next infusion 11/21 Start: 11-15-2022 End: 11-15-2022 ambulatory Flory Rose PhD Work Phone: Neurology Pain Comment on above: Chronic back pain, u nspecified back location, unspecified back pain laterality (Primary Dx) Start: 11-15-2022 End: 11-15-2022 Telemedicine consultation with patient Flory Rose PhD Work Phone: [facility] Start: 11-10-2022 End: 11-10-2022 Office outpatient visit 25 minutes Marie Larios PA-C Work Phone: [facility] Dermatology Comment on above: Encounter for long-t erm current use of high risk medication; Folliculitis; Intertrigo; Other atopic dermatitis; Acne vulgaris Start: 11-10-2022 Telephone encounter Rosie ESQUIVEL Work Phone: [facility]ermatology Start: 11-08-2022 End: 11-08-2022 ambulatory DAVID DENT Facility:[id number] Start: 11-08-2022 Encounter for dental examination and cleaning without abnormal findings DAVIDMARIA EUGENIA DENT [facility] Start: 11-08-2022 End: 11-08-2022 Patient encounter procedure David Dent DDS Work Phone: Dentistry Comment on above: Defective dental res toration (Primary Dx); Encounter for dental examination; Dental caries Start: 11-08-2022 End: 11-08-2022 Patient encounter status David Dent DDS Work Phone: [facility] Work Phone: Start: 11-07-2022 End: 11-08-2022 ambulatory ROWAN HARDYADRIANO Facility:[id number] Start: 11-07-2022 End: 11-07-2022 Patient encounter procedure Nurse Pain Infusion [facility] Comment on above: Chronic bilateral lo w back pain with bilateral sciatica (Primary Dx) Start: 11-01-2022 End: 11-02-2022 ambulatory ROWAN BARAJAS Facility:[id number] Start: 11-01-2022 End: 11-01-2022 Patient encounter procedure Nurse Pain Infusion [facility] Comment on above: Chronic bilateral lo w back pain with bilateral sciatica (Primary Dx) Start: 10-24-2022 ambulatory Bebe roque MD Work Phone: Pain Management Comment on above: Todays visit Start: 10-05-2022 End: 10-05-[address] [facility] Bebe Kohler Therapist Work Phone: Pain Recovery Comment on above: Pain disorder associ ated with psychological factors and medical condition (Primary Dx); Chronic pain syndrome Start: 10-03-2022 End: 10-04-2022 ambulatory ROWAN BARAJAS ANUJA-MORTARMAN Facility:B Start: 10-03-2022 End: 10-03-2022 Patient encounter procedure ROWAN BARAJAS ANUJA-MORTARMAN [facility] Start: 09-29-2022 End: 09-29-2022 Subsequent hospital visit by physician Leah Al DO Work Phone: Ambulatory Surgery Comment on above: Dysphagia, unspecifi ed type [R13.10] Start: 09-28-2022 End: 09-29-2022 ambulatory MICHELE BELL DO Facility:B Start: 09-28-2022 End: 09-28-2022 Subsequent hospital visit by physician Jackeline [facility] Lia Erazo Work Phone: Radiology Comment on above: Slow transit constip ation [K59.01] Start: 09-28-2022 End: 09-28-2022 Patient encounter procedure MICHELE BELL DO [facility] Start: 09-27-2022 End: 09-27-[address] [facility] Susana Miller MD Work Phone: Neurology Comment on above: Snoring (Primary Dx) ; Disturbance in sleep behavior; Delayed sleep phase syndrome; RLS (restless legs syndrome); Class 2 drug-induced obesity without serious comorbidity with body mass index (BMI) of 39.0 to 39.9 in adult; Parasomnia, unspecified type; Chronic insomnia; H/O opioid abuse (HCC); Drug abuse (HCC); Nocturnal sleep-related eating disorder Start: 09-26-2022 End: 09-27-2022 ambulatory ROWAN BARAJAS Facility:[id number] Start: 09-26-2022 End: 09-26-2022 Patient encounter procedure Nurse Pain Infusion [facility] Comment on above: Chronic bilateral lo w back pain with bilateral sciatica (Primary Dx) Start: 09-26-2022 End: 09-26-2022 Office outpatient visit 25 minutes Rosie ESQUIVEL Work Phone: [facility] D[facility] Comment on above: Acne vulgaris (Prima ry Dx); Pruritus; Skin lesion; Encounter for long-term (current) use of high-risk medication Start: 09-23-2022 Telephone encounter Bebe Mckenna MD Work Phone: Pain Management Comment on above: therapy plan needs u pdated Start: 09-22-2022 Telephone encounter Leah caballero DO Work Phone: Gastroenterology Comment on above: Appointment (EGD) Start: 09-20-2022 ambulatory Raquel Shelley RN [facility] Clinical Communication Start: 09-20-2022 Patient encounter procedure Raquel Shelley RN [facility] Clinical Communication Start: 09-14-2022 ambulatory Alena Green MD Work Phone: [facility] [place] Comment on above: Blood work Start: 09-12-2022 End: 09-14-2022 Patient encounter procedure Tushar Wen DDS Work Phone: [facility] Start: 09-07-2022 End: 09-07-2022 ambulatory BEBE MCKENNA Facility:[id number] Start: 08-29-2022 End: 08-30-2022 ambulatory ROWAN BARAJAS Facility:[id number] Start: 08-29-2022 End: 08-29-2022 Patient encounter procedure Nurse Pain Infusion [facility] Comment on above: Chronic bilateral lo w back pain with bilateral sciatica (Primary Dx) Start: 08-17-2022 End: 08-17-2022 ambulatory Alena Green MD Work Phone: [facility] Comment on above: Cervicalgia (Primary Dx); Chronic pain syndrome; Coccygodynia Start: 08-17-2022 End: 08-17-2022 Telemedicine consultation with patient Alena Green MD Work Phone: [facility] Start: 08-16-2022 ambulatory Alena Green MD Work Phone: [facility] Comment on above: Bloodwork Start: 08-13-2022 ambulatory Bebe roque MD Work Phone: Pain Management Comment on above: Infusion check in Start: 08-11-2022 ambulatory Ramona Slade MORTARMAN Work Phone: OB/Gynecology Comment on above: Sorry Start: 08-11-2022 End: 08-11-2022 Subsequent hospital visit by physician Jackeline [facility] Lia Erazo Work Phone: Radiology Comment on above: Spinal stenosis of c ervical region [M48.02] Start: 08-01-2022 End: 08-02-2022 ambulatory COREY LOVELACE Facility:[id number] Start: 07-27-2022 Telephone encounter Alena gibson MD Work Phone: Rehab Medicine Comment on above: Received Outside [facility] Records (PT notes///) Start: 07-14-2022 End: 07-14-2022 ambulatory PAWANMelina Kalee BANKSM Facility:[id number] Start: 07-13-2022 E-mail encounter sharla m caregiver [facility] Provider [facility] Start: 07-13-2022 End: 07-13-2022 Patient encounter procedure Alena Green MD Work Phone: [facility] Comment on above: Spinal stenosis of c ervical region (Primary Dx); Coccygodynia; Segmental and somatic dysfunction of sacral region; Chronic pelvic pain syndrome in female; Chronic pain syndrome; Central sensitization to pain Consult to Chronic P elvic Pain Start: 07-11-2022 Telephone encounter Bebe Mckenna MD Work Phone: Pain Management Comment on above: Patient Update Start: 07-04-2022 End: 07-05-2022 ambulatory EFEDDYBE Daniela LOVELACE Facility:[id number] Start: 07-04-2022 End: 07-04-2022 Patient encounter procedure Nurse Pain Infusion Erick[facility]ameson [facility] Comment on above: Chronic bilateral lo w back pain with bilateral sciatica (Primary Dx) Start: 06-27-2022 End: 06-27-2022 Office outpatient visit 25 minutes Rosie ESQUIVEL Work Phone: [facility] Dermatology Comment on above: Acne vulgaris (Prima ry Dx); Other atopic dermatitis Start: 06-16-2022 End: 06-16-2022 ambulatory CAMERON aKlee WILLI Facility:[id number] Start: 06-15-2022 End: 06-15-2022 Office outpatient new 45 minutes Shira Cavazos MD Work Phone: [facility] [place] Comment on above: Fibromyalgia (Primar y Dx); BMI 37.0-37.9, adult; Class 2 obesity without serious comorbidity with body mass index (BMI) of 37.0 to 37.9 in adult, unspecified obesity type; Insulin resistance; Screening for diabetes mellitus (DM); Other fatigue; Long-term use of high-risk medication Start: 06-06-2022 End: 06-07-2022 ambulatory COREY LOVELACE Facility:[id number] Start: 06-06-2022 End: 06-06-2022 Patient encounter procedure Nurse Pain Infusion [facility] Pain Management Comment on above: Chronic bilateral lo w back pain with bilateral sciatica (Primary Dx) Start: 05-19-2022 Telephone encounter Bebe Mckenna MD Work Phone: Pain Management Comment on above: Patient Question Start: 05-17-2022 End: 05-17-2022 ambulatory Cameron Kalee Willi LICEA.MORTARMAN Work Phone: Pain Management Comment on above: Fibromyalgia (Primar y Dx); Chronic neck pain; Radiculopathy, lumbar region Start: 05-17-2022 End: 05-17-2022 Telemedicine consultation with patient Cameron Lynntorrey LICEA.MORTARMAN Work Phone: [facility] Start: 05-12-2022 End: 05-12-2022 Office outpatient visit 25 minutes Rosie ESQUIVEL Work Phone: [facility] Dermatology Comment on above: Acne vulgaris (Prima ry Dx); Other atopic dermatitis Start: 05-12-2022 Refill Ramona Yany LICEA.MORTARMAN Work Phone: OB/Gynecology Comment on above: Refill Request Start: 05-09-2022 ambulatory Cameron hirsch APRN.MORTARMAN Work Phone: Pain Management Comment on above: PT notes Start: 05-09-2022 End: 05-09-2022 Patient encounter procedure Nurse Pain Infusion [facility] Comment on above: Fibromyalgia (Primar y Dx) Start: 04-15-2022 Telephone encounter Cameron Márquez APRN.MORTARMAN Work Phone: Pain Management Comment on above: infusion scheduling Start: 04-13-2022 End: 04-13-2022 Office outpatient visit 25 minutes Kortney Hanley MD Work Phone: Dermatology WP Comment on above: Acne vulgaris (Prima ry Dx); Encounter for long-term (current) use of high-risk medication Start: 04-11-2022 Telephone encounter Cameron Márquez APRN.MORTARMAN Work Phone: Pain Management Comment on above: Patient Update Start: 04-07-2022 End: 04-07-2022 Office outpatient visit 15 minutes Cameron Márquez APRN.MORTARMAN Work Phone: Pain Management Comment on above: Other chronic pain ( Primary Dx); Fibromyalgia; Spinal stenosis of lumbar region with neurogenic claudication; Facet arthropathy, cervical Start: 03-31-2022 End: 03-31-2022 Subsequent hospital visit by physician Jackeline [facility] Lia Work Phone: Radiology Comment on above: Chronic pain syndrom e [G89.4] Start: 03-31-2022 End: 03-31-2022 ambulatory [facility] Start: 03-18-2022 End: 03-18-2022 Patient encounter procedure Ramona Slade REVIEW ENGINEER.MORTARMAN Work Phone: OB/Gynecology Comment on above: Vulvar lesion (Prima ry Dx) Start: 03-15-2022 Patient encounter procedure [facility] Provider [facility] Department Start: 03-03-2022 End: 03-03-2022 Patient encounter procedure Bebe Mckenna MD Work Phone: Pain Management Comment on above: Chronic pain syndrom e (Primary Dx) Start: 03-02-2022 Telephone encounter Ramona Mckeon maria isabel REVIEW ENGINEER.MORTARMAN Work Phone: OB/Gynecology Comment on above: Medication Problem Start: 02-28-2022 Telephone encounter Leah caballero DO Work Phone: Gastroenterology Comment on above: Appointment Start: 02-15-2022 Telephone encounter Sera Flores MD Work Phone: Gastroenterology Comment on above: Abdominal Pain; Cons tipation Start: 01-10-2022 End: 01-10-2022 Patient encounter procedure Ramona Slade REVIEW ENGINEER.MORTARMAN Work Phone: OB/Gynecology Comment on above: Vaginal discharge (P rimary Dx) Start: 11-08-2021 Telephone encounter Sera Flores MD Work Phone: Gastroenterology Comment on above: Medication Question (Hep C meds) Start: 10-26-2021 Telephone encounter Ramona Mckeon prison REVIEW ENGINEER.MORTARMAN Work Phone: OB/Gynecology Comment on above: Results Start: 10-25-2021 End: 10-25-2021 Patient encounter procedure Rmaona Yany REVIEW ENGINEER.MORTARMAN Work Phone: OB/Gynecology Comment on above: Vaginal discharge (P rimary Dx); Abnormal urine odor Start: 10-14-2021 Telephone encounter Ramona Mckeon maria isabel REVIEW ENGINEER.MORTARMAN Work Phone: OB/Gynecology Comment on above: Results Start: 10-12-2021 End: 10-12-2021 Patient encounter procedure Ramona [place] REVIEW ENGINEER.MORTARMAN Work Phone: OB/Gynecology Comment on above: Vulvar irritation (P rimary Dx) Start: 09-23-2021 Telephone encounter Bebe Mckenna MD Work Phone: Pain Management Comment on above: Appointment Start: 07-09-2021 Telephone encounter Sera Flores MD Work Phone: Gastroenterology Comment on above: Patient Question Start: 07-02-2021 Refill Sera Flores MD Work Phone: Gastroenterology Comment on above: Refill Request Start: 06-29-2021 Telephone encounter Sera Flores MD Work Phone: Gastroenterology Comment on above: Follow Up Tests Resu lts (KUB--->needs colon flush followed by Miralax) Start: 06-28-2021 End: 06-28-2021 Subsequent hospital visit by physician Jackeline [facility] Lia Erazo Work Phone: Radiology Comment on above: Constipation, unspec ified constipation type [K59.00] Start: 06-28-2021 End: 06-28-2021 Patient encounter procedure Rosie Gordon REVIEW ENGINEER.CNM Work Phone: OB/Gynecology Comment on above: Vaginal discharge (P rimary Dx); Dysuria; Vaginal irritation Start: 06-18-2021 Refill Sera Flores MD Work Phone: Gastroenterology Comment on above: Refill Request (Marguerite lax) Start: 06-17-2021 Telephone encounter Sera Flores MD Work Phone: Gastroenterology Comment on above: Orders (needs Hep C genotype) Start: 06-16-2021 ambulatory Barbara Rushing [facility] CC [facility] Start: 06-16-2021 Patient encounter procedure Barbara Rushing [facility] Comment on above: SPP Hepatology - Riky atment Referral (Epclusa); Insurance Authorization (PA submission pending ) Start: 06-15-2021 End: 06-15-2021 Patient encounter procedure Sera Flores MD Work Phone: Gastroenterology Comment on above: Chronic hepatitis C without hepatic coma (HCC) (Primary Dx); Constipation, unspecified constipation type Start: 05-14-2021 Telephone encounter Maria M Dos Santos DO Work Phone: Orthopaedics Comment on above: Bwc (Worker's Comp) Start: 04-30-2021 End: 04-30-2021 Patient encounter procedure ROWAN BARAJAS REVIEW ENGINEER-MORTARMAN [facility] Start: 04-07-2021 End: 04-07-2021 Patient encounter procedure ORLIN Granda ANGELO HARD[facility] Start: 04-01-2021 End: 04-01-2021 ambulatory COREY PAZJENNYMelina Facility:[facility] Start: 03-26-2021 End: 03-30-2021 Outreach Lab ROWAN BARAJAS REVIEW ENGINEER-MORTARMAN [facility] Start: 03-11-2021 End: 03-11-2021 Patient encounter procedure ROWAN BARAJAS REVIEW ENGINEER-MORTARMAN [facility] Start: 03-10-2021 End: 03-10-2021 Patient encounter procedure ROWAN BARAJAS REVIEW ENGINEER-MORTARMAN [facility] Start: 05-27-2019 End: 05-28-2019 Emergency department patient visit Karla Jaramilloaleciaюлия Work Phone: [facility] Emergency Dept Comment on above: Difficulty urinating (Primary Dx) Start: 05-22-2019 [place] Start: 05-21-2019 Patient encounter [place] Start: 07-19-2017 End: 07-20-2017 Ambulatory JOCELYN MELLO [facility] Start: 07-14-2017 End: 07-15-2017 Ambulatory SKINNY DHALIWAL [facility] Start: 07-10-2017 End: 07-11-2017 Ambulatory JOCELYN CARRIZALES [facility] Start: 02-23-2014 End: 02-23-2014 Emergency department patient visit PUMA GEMEdward Facility:[facility] Procedures Date Procedure Procedure Detail Performing Clinician Start: 11-21-2024 Injection aa&/strd pudendal nerve Maury Aldana MD Work Phone: Start: 11-21-2024 Fluoroscopy during operation Maury Mittal i, MD Work Phone: Start: 11-06-2024 Radex shoulder complete minimum 2 views Skinny Ellis DO Work Phone: Start: 10-31-2024 Fluoroscopy during operation Maury Mittal i, MD Work Phone: Start: 05-13-2024 Urnls dip stick/tablet rgnt auto w/o microscopy Raomna [place] REVIEW ENGINEER.MORTARMAN Work Phone: Start: 01-22-2024 Urine test visual color cmprsn meths Marie Thomas Bollas PA-C Work Phone: Start: 11-23-2023 Gluc bld gluc mntr dev cleared fda spec home use Meme Vergara MD Work Phone: Start: 11-14-2023 Antibody screen MEME VERGARA Comment on above: Order Comment: Specimen Type: BLOOD SPEC IMEN Ordering Facility: [facility] Address: [address] [place] [address] Performed By: #### T [id number] #### CC MAIN BLOOD BANK CLFL [id number] [address] [place] [address] OF [facility] Start: 10-23-2023 End: 10-23-2023 Unlisted special service procedure/report Secondary dysmenorrhea Meme Vergara MD Work Phone: Comment on above: Secondary dysmenorrhea (Primary Dx); Chronic pelvic pain in female; Encounter for monitoring Suboxone maintenance therapy; Acute postoperative pain; Buprenorphine dependence (HCC) Start: 10-16-2023 Urine test visual color cmprsn meths Marie Thomas Bollas PA-C Work Phone: Start: 10-16-2023 SKIN BIOPSY Marie Larios PA-C Work Phone: Start: 08-21-2023 BACTERIAL VAGINOSIS NAAT Rosio Morel MD Work Phone: Start: 08-21-2023 Iadna trichomonas vaginalis amplified probe tech Rosio Mroel MD Work Phone: Start: 05-30-2023 Urine test visual color cmprsn meths Marie A Bollas PA-C Work Phone: Start: 03-16-2023 Urine test visual color cmprsn meths Marie A Bollas PA-C Work Phone: Start: 12-26-2022 Urine test visual color cmprsn meths Marie A Bollas PA-C Work Phone: Start: 12-26-2022 End: 12-26-2022 SKIN BIOPSY Britta Eugene EXTRUDING DEPARTMENT SUPERVISOR Start: 11-10-2022 Urine test visual color cmprsn meths Marie A Bollas PA-C Work Phone: Start: 11-08-2022 2D ORAL/FACIAL PHOTOGRAPHIC IMAGE OBTAINED INTRA-ORALLY OR EXTRA-ORALLY Emmett Salter DMD Work Phone: Start: 11-08-2022 COMPREHENSIVE ORAL EVALUATION - NEW OR ESTABLISHED PATIENT Emmett Salter DMD Work Phone: Start: 11-08-2022 PANORAMIC FILM - NO CHARGE Emmett Salter DMD Work Phone: Start: 11-08-2022 4 ROOT CANAL Dental Conversion Start: 09-29-2022 Level iv surg pathology gross&microscopic exam Leah Arabella DO Work Phone: Start: 09-29-2022 Esophagogastroduodenoscopy transoral diagnostic Leah Arabella HARDY Work Phone: Start: 09-28-2022 Radiologic exam abdomen 3+ views Luc Al DO Work Phone: Start: 08-11-2022 Radex sacrum & coccyx minimum 2 views Alena Green MD Work Phone: Start: 08-11-2022 Mri spinal canal cervical w/o contrast matrl Alena Green MD Work Phone: Start: 04-13-2022 Complete blood count with white cell differential, automated Kortney A Cristal MD Work Phone: Start: 04-13-2022 Comprehensive metabolic panel Kortney dolan MD Work Phone: Start: 04-13-2022 Lipid panel Kortney Hanley MD Work Phone: Start: 04-13-2022 Lipid 1996 panel - Serum or Plasma Kelly Cavazos MD Work Phone: Start: 03-31-2022 Radex spine cervical 2 or 3 views Bebe Mckenna MD Work Phone: Start: 03-15-2022 Microscopic observation [Identifier] in Cervix by Cyto stain Shira Cavazos MD Work Phone: Start: 10-25-2021 Urnls dip stick/tablet rgnt auto w/o microscopy Ramona Slade REVIEW ENGINEER.MORTARMAN Work Phone: Start: 06-28-2021 Radiologic exam abdomen 2 views Imad Asa nicol FIGUEROA Work Phone: Start: 06-28-2021 Urnls dip stick/tablet rgnt auto w/o microscopy Rosie Gordon REVIEW ENGINEER.CNM Work Phone: Start: 05-10-2020 Adult depression screening assessment Maria M Levon HARDY Work Phone: Start: 05-21-2019 Urine test visual color cmprsn meths Delmar Quinones Work Phone: Start: 05-21-2019 Assay of ethanol Delmar Quinones Work Phone: Start: 05-21-2019 Blood count complete auto&auto difrntl wbc Delmar Quinones Work Phone: Start: 05-21-2019 CANNABINOID, URINE, SCREENING, CRITICAL CARE Delmar Quinones Work Phone: Start: 05-21-2019 Comprehensive metabolic panel Delmar pascal Work Phone: Start: 05-21-2019 Drug screen class list a Delmar espinoza Work Phone: Start: 05-21-2019 Urnls dip stick/tablet rgnt auto w/o microscopy Delmar Siomara Quinones Work Phone: Start: 03-13-2019 Colonoscopy ROWAN BARAJAS REVIEW ENGINEER-MORTARMAN Start: 03-13-2019 Mammography ROWAN BARAJAS REVIEW ENGINEER-MORTARMAN Start: 03-13-2019 Microscopic examination of cervical Papanicolaou smear and Human papillomavirus deoxyribonucleic acid detection cotesting ROWAN BARAJAS REVIEW ENGINEER-MORTARMAN Start: 03-13-2018 Ophthalmic examination and evaluation ROWAN BARAJAS REVIEW ENGINEER-MORTARMAN Start: 06-27-2016 End: 06-27-2016 Chiropractic manipulation Shirley B Dossi DC Work Phone: Start: 06-02-2016 End: 06-02-2016 Chiropractic manipulation Shirley B Dossi DC Work Phone: Start: 05-23-2016 End: 05-23-2016 Chiropractic manipulation Shirley B Dossi DC Work Phone: Start: 05-19-2016 End: 05-19-2016 Chiropractic manipulation Shirley B Dossi DC Work Phone: Start: 05-18-2016 End: 05-19-2016 Chiropractic manipulation Shirley B Dossi DC Work Phone: Start: 05-12-2016 End: 05-12-2016 Chiropractic manipulation Shirley B Dossi DC Work Phone: Start: 05-05-2016 End: 05-05-2016 Chiropractic manipulation Shirley B Dossi DC Work Phone: Start: 05-03-2016 End: 05-03-2016 Chiropractic manipulation Shirley B Dossi DC Work Phone: Start: 04-26-2016 End: 04-26-2016 Chiropractic manipulation Shirley B Dossi DC Work Phone: Appendectomy ROWAN BARAJAS REVIEW ENGINEER-MORTARMAN Incision and drainage of cyst ROWAN BARAJAS REVIEW ENGINEER-MORTARMAN Comment on above: Age 16, age 21 Plan of Treatment Date Care Activity Detail Author Start: 01-22-2068 RSV Immunization for Adults (1 - 1-dose 75+ series) RSV Immunization for Adults (1 - 1-dose 75+ series) [facility] Start: 2053 RSV Immunization aged 60 or older (1 - 1-dose 60+ series) RSV Immunization aged 60 or older (1 - 1-dose 60+ series) [facility] Start: 2043 Shingles (RZV) Vaccine (1 of 2) Shingles (RZV) Vaccine (1 of 2) [facility] Start: 05-13-2029 Screening for malignant neoplasm of cervix Cervical Cancer Screening [facility] Start: 07-08-2027 DTaP/Tdap/Td vaccine (5 - Td or Tdap) DTaP/Tdap/Td vaccine (5 - Td or Tdap) [facility] Start: 07-08-2027 DTaP/Tdap/Td Vaccines (8 - Td or Tdap) DTaP/Tdap/Td Vaccines (8 - Td or Tdap) [facility] Start: 07-08-2027 Tetanus vaccination Tetanus (Td or Tdap) Booster [facility] Start: 07-08-2027 Urine microalbumin profile [facility] Start: 04-13-2027 Lipid panel Lipid Panel [facility] Start: 03-15-2027 HPV Testing HPV Testing [facility] Start: 03-15-2027 Pap Testing Pap Testing [facility] Start: 03-15-2027 Screening for malignant neoplasm of cervix [facility] Start: 03-15-2025 PAP TESTING PAP TESTING [facility] Start: 03-15-2025 Screening for malignant neoplasm of cervix [facility] Start: 01-08-2025 End: 01-08-2025 Patient encounter procedure EMG Comment on above: epic// sw pt Start: 01-08-2025 ambulatory Ambulatory [facility] Start: 12-17-2024 End: 12-17-2024 Patient encounter procedure 12/17/2024 1:15 PM EDT Office Visit [facility] [address] [place] [address] Skinny Ellis DO [address] [place] [address] Review Cervical Spine X-Ray, MRI, and EMG Results [facility] Comment on above: Review Cervical Spine X-Ray, MRI, and EM G Results Start: 12-11-2024 Influenza vaccination Influenza Vaccine (#1) [facility] Start: 12-09-2024 End: 12-09-2024 Patient encounter procedure 12/09/2024 3:15 PM EDT Office Visit [facility] [address] [place] [address] Maury Aldana MD [address] [place] [address] 2 WEEK FOLLOW UP [facility] Comment on above: 2 WEEK FOLLOW UP Start: 11-21-2024 End: 11-21-2024 Patient encounter procedure 11/21/2024 3:30 PM EDT Appointment [facility] [address], [address] [place] [address] Maury Aldana MD [address] [place] [address] NJECT NERVE BLOCK PUDENDAL [facility] Comment on above: NJECT NERVE BLOCK PUDENDAL Start: 11-11-2024 COVID-19 Vaccine ( season) COVID-19 Vaccine ( season) [facility] Start: 11-11-2024 Influenza vaccination [facility] Start: 11-06-2024 End: 11-06-2024 Patient encounter procedure 11/06/2024 3:15 PM EDT Office Visit [facility] [address] [place] [address] Maury Aldana MD [address] [place] [address] FOLLOW UP AFTER MBB [facility] [place] [facility] Comment on above: FOLLOW UP AFTER MBB Start: 10-31-2024 End: 10-31-2024 Patient encounter procedure 10/31/2024 3:30 PM EDT Appointment [facility] [address], [address] [place] [address] Maury Aldana MD [address] [place] [address] Rt C5-6, 6-7 MBB [facility] Comment on above: Rt C5-6, 6-7 MBB Start: 10-11-2024 Influenza vaccination Flu vaccine (#1) [facility] Start: 05-27-2024 End: 05-27-2024 Patient encounter procedure 05/27/2024 3:30 PM EDT Office Visit Gynecology [address] [address] Meme Vergara MD [address] [place] [address] POST OP 6 WEEKS Gynecology Comment on above: POST OP 6 WEEKS Start: 04-23-2024 End: 04-23-2024 ambulatory 04/23/2024 12:00 PM [facility] Gynecology [address] [address] Aline Wen, REVIEW ENGINEER.MORTARMAN [address] Melina/[address] [place] [address] POST OP 2 WEEKS Gynecology Comment on above: POST OP 2 WEEKS Start: 04-09-2024 End: 04-09-2024 Admission to same day surgery center 04/09/2024 1:00 PM EST - 04/09/2024 3:30 PM [facility] Surgery [facility] Operating Room [address] [place] [address] Meme Vergara MD [address] [place] [address] LAPAROSCOPY FULGURATION OR EXCISION OF LESIONS OF THE OVARY PELVIC VISCERA OR PERITONEAL SURFACE BY ANY METHOD [facility] Operating Room Comment on above: LAPAROSCOPY FULGURATION OR EXCISION OF L ESIONS OF THE OVARY PELVIC VISCERA OR PERITONEAL SURFACE BY ANY METHOD Start: 04-09-2024 End: 04-09-2024 Laparoscopic appendectomy LAPAROSCOPIC APPENDECTOMY ADULT Chronic pelvic pain in female Dysmenorrhea Vulvar pain Preop examination 04/09/2024 1:00 PM EST [facility] Start: 04-09-2024 End: 04-09-2024 Laps fulg/exc ovary viscera/peritoneal surface LAPAROSCOPY FULGURATION OR EXCISION OF LESIONS OF THE OVARY PELVIC VISCERA OR PERITONEAL SURFACE BY ANY METHOD Chronic pelvic pain in female Dysmenorrhea Vulvar pain Preop examination 04/09/2024 1:00 PM EST [facility] Start: 04-09-2024 Subsequent hospital visit by physician 04/09/2024 1:00 PM EST Hospital Encounter [facility] Operating Room [address] [place] [address] Meme Vergara MD [address] [place] [address] Chronic pelvic pain in female [R10.2, G89.29], Dysmenorrhea [N94.6], Vulvar pain [R10.2], Preop examination [Z01.818] [facility] Operating Room Comment on above: Chronic pelvic pain in female [R10.2, G8 9.29], Dysmenorrhea [N94.6], Vulvar pain [R10.2], Preop examination [Z01.818] Start: 03-25-2024 End: 03-25-2024 ambulatory 03/25/2024 3:00 PM EST [facility] Gynecology [address] [address] Property Management Intern, Nurse [address] [place] [address] PRE OP TEACHING TELEVISIT Gynecology Comment on above: PRE OP TEACHING TELEVISIT Start: 03-18-2024 End: 03-18-2024 Admission to same day surgery center 03/18/2024 1:00 PM EST [facility] Gynecology [address] [place] [address] Meme Vergara MD [address] [place] [address] PRE OP SURGERY CONSENT Gynecology Comment on above: PRE OP SURGERY CONSENT Start: 03-11-2024 End: 03-11-2024 Patient encounter procedure 03/11/2024 5:45 PM EST Office Visit [employer] [facility] Screening [place] [address] SURGERY [employer] [facility] Screening Comment on above: SURGERY Start: 02-21-2024 End: 02-21-2024 Telemedicine consultation with patient 02/21/2024 1:20 PM EST Telemedicine [facility] [address] [facility] [address] [place] [address] Marie Larios PA-C [address] [place] [address] [facility] Start: 01-22-2024 End: 2025 hCG, urine, qualitative hCG, urine, qualitative Lab Routine Encounter for long-term (current) use of high-risk medication Expected: 01/22/2024 (Approximate), Expires: 2025 [facility] Work Phone: Comment on above: Expected: 01/22/2024 (Approximate), Expi res: 2025 Start: 01-08-2024 End: 01-08-2024 Patient encounter procedure 01/08/2024 1:00 PM EDT Office Visit Gynecology [address] [place] [address] Meme Vergara MD [address] [place] [address] POST OP 6 WEEKS Gynecology Comment on above: POST OP 6 WEEKS Start: 12-12-2023 Influenza vaccination Influenza Vaccine (#1) [facility] Start: 12-08-2023 End: 12-08-2023 ambulatory 12/08/2023 1:00 PM EDT [facility] Gynecology [address] [address] Aline Wen APRN.MORTARMAN [address] [place] [address] POST OP 2 WEEKS Gynecology Comment on above: POST OP 2 WEEKS Start: 12-06-2023 End: 11-26-2024 hCG, urine, qualitative hCG, urine, qualitative Lab Routine Encounter for long-term (current) use of high-risk medication Expected: 12/06/2023, Expires: 11/26/2024 [facility] Work Phone: Comment on above: Expected: 12/06/2023, Expires: Start: 11-23-2023 End: 11-23-2023 Admission to same day surgery center [facility] Comment on above: LAPAROSCOPY FULGURATION OR EXCISION OF L ESIONS OF THE OVARY PELVIC VISCERA OR PERITONEAL SURFACE BY ANY METHOD Start: 11-23-2023 End: 11-23-2023 Laparoscopic appendectomy [facility] OR Start: 11-23-2023 End: 11-23-2023 Laps fulg/exc ovary viscera/peritoneal surface [facility] Start: 11-23-2023 Subsequent hospital visit by physician [facility] Comment on above: Chronic pelvic pain in female [R10.2, G8 9.29], Dysmenorrhea [N94.6], Vulvar pain [R10.2], Preop examination [Z01.818] Start: 11-17-2023 End: 11-17-2023 Patient encounter procedure Gynecology Comment on above: POST OP 6 WEEKS Start: 11-15-2023 End: 10-15-2024 hCG, urine, qualitative hCG, urine, qualitative Lab Routine Encounter for long-term (current) use of high-risk medication Expected: 11/15/2023 (Approximate), Expires: 10/15/2024 [facility] Comment on above: Expected: 11/15/2023 (Approximate), Expi res: 10/15/2024 Start: 11-15-2023 End: 11-15-2023 Telemedicine consultation with patient 11/15/2023 1:20 PM EDT Telemedicine [facility] Dermatology [address] [facility] [address] [place] [id number] Marie Larios PA-C [address] [facility] [address] [place] [address] [facility] Start: 11-12-2023 COVID-19 Vaccine ( season) COVID-19 Vaccine () [facility] Start: 11-12-2023 Covid-19 Vaccine () Covid-19 Vaccine () [facility] Start: 11-12-2023 Covid-19 Vaccine () Covid-19 Vaccine () [facility] Start: 11-12-2023 Influenza vaccination [facility] Start: 11-07-2023 End: 11-07-2023 ambulatory Gynecology Comment on above: PRE OP TEACHING TELEVISIT Educational circumst ances (Primary Dx) Start: 11-06-2023 End: 02-05-2024 Basic metabolic 2000 panel - Serum or Plasma BASIC METABOLIC PANEL Lab Routine Pre-op evaluation MICHELLE (obstructive sleep apnea) Tobacco use Other chronic pain Hyperlipidemia, unspecified hyperlipidemia type Opioid dependence with withdrawal (HCC) Obesity (BMI 30-39.9) Insulin resistance Expected: 11/06/2023, Expires: 02/05/2024 [facility] Work Phone: Comment on above: Expected: 11/06/2023, Expires: Start: 11-06-2023 End: 02-05-2024 CBC W Auto Differential panel - Blood COMPLETE BLOOD COUNT AND DIFFERENTIAL Lab Routine Pre-op evaluation MICHELLE (obstructive sleep apnea) Tobacco use Other chronic pain Hyperlipidemia, unspecified hyperlipidemia type Opioid dependence with withdrawal (HCC) Obesity (BMI 30-39.9) Insulin resistance Expected: 11/06/2023, Expires: 02/05/[address] [facility] Comment on above: Expected: 11/06/2023, Expires: Start: 11-06-2023 End: 02-05-2024 TYPE AND SCREEN,30 DAY TYPE AND SCREEN,30 DAY Blood Bank Routine Pre-op evaluation MICHELLE (obstructive sleep apnea) Tobacco use Other chronic pain Hyperlipidemia, unspecified hyperlipidemia type Opioid dependence with withdrawal (HCC) Obesity (BMI 30-39.9) Insulin resistance Expected: 11/06/2023, Expires: 02/05/[address] [facility] Comment on above: Expected: 11/06/2023, Expires: Start: 11-06-2023 End: 11-06-2023 Anesthesia consultation 11/06/2023 1:30 PM EDT PAT Pre Anesthesia [address] [facility] [address] [place] [address] PRE OP Pre Anesthesia Comment on above: PRE OP Start: 10-23-2023 End: 10-23-2023 Patient encounter procedure 10/23/2023 5:45 PM EDT Office Visit [facility] Screening [place] [address] SURGERY [employer] [facility] Screening Comment on above: SURGERY Start: 10-23-2023 End: 10-23-2023 Admission to same day surgery center 10/23/2023 1:00 PM EDT [facility] Gynecology [address] [place] [address] Meme Vergara MD [address] [place] [address] PRE OP SURGERY CONSENT Gynecology Comment on above: PRE OP SURGERY CONSENT Start: 10-17-2023 End: 10-17-2023 ambulatory Gynecology Comment on above: POST OP 2 WEEKS Start: 10-06-2023 End: 10-06-2023 Patient encounter procedure 10/06/2023 1:00 PM EDT Procedure Visit [facility] [address] [place] [address] Alexi Vo DDS [address] [facility] [address] [facility] Start: 10-03-2023 End: 10-03-2023 Admission to same day surgery center 10/03/2023 1:00 PM EDT - 10/03/2023 3:30 PM EDT Surgery [facility] Operating Room [address] [place], [place] [id number] Meme Vergara MD [address] [place] [address] LAPAROSCOPY FULGURATION OR EXCISION OF LESIONS OF THE OVARY PELVIC VISCERA OR PERITONEAL SURFACE BY ANY METHOD [facility] Operating Room Comment on above: LAPAROSCOPY FULGURATION OR EXCISION OF L ESIONS OF THE OVARY PELVIC VISCERA OR PERITONEAL SURFACE BY ANY METHOD Start: 10-03-2023 End: 10-03-2023 Laparoscopic appendectomy LAPAROSCOPIC APPENDECTOMY ADULT Chronic pelvic pain in female Dysmenorrhea Vulvar pain Preop examination 10/03/2023 1:00 PM EDT [facility] OR Start: 10-03-2023 End: 10-03-2023 Laps fulg/exc ovary viscera/peritoneal surface LAPAROSCOPY FULGURATION OR EXCISION OF LESIONS OF THE OVARY PELVIC VISCERA OR PERITONEAL SURFACE BY ANY METHOD Chronic pelvic pain in female Dysmenorrhea Vulvar pain Preop examination 10/03/2023 1:00 PM EDT [facility] OR Start: 10-03-2023 Subsequent hospital visit by physician 10/03/2023 1:00 PM EDT Hospital Encounter [facility] Operating Room [address] [place] [address] Meme Vergara MD [address] [place] [address] Chronic pelvic pain in female [R10.2, G89.29], Dysmenorrhea [N94.6], Vulvar pain [R10.2], Preop examination [Z01.818] [facility] Operating Room Comment on above: Chronic pelvic pain in female [R10.2, G8 9.29], Dysmenorrhea [N94.6], Vulvar pain [R10.2], Preop examination [Z01.818] Start: 09-25-2023 End: 09-25-2023 Patient encounter procedure 09/25/2023 10:00 AM EDT Office Visit [facility] Dermatology [address] [facility] [address] [place] [address] Marie Larios PA-C [address] [facility] [address] [place] [address] [facility]ermat[facility] Start: 09-21-2023 End: 09-21-2023 Admission to same day surgery center Gynecology Comment on above: PRE OP SURGERY CONSENT Start: 09-19-2023 End: 09-19-2023 Patient encounter procedure 09/19/2023 11:30 AM EDT Office Visit Gynecology [address] [address] [place] [address] [place] [address] Morel Gynecology Comment on above: Vulva biopsy per Dr. Morel Start: 09-18-2023 End: 09-18-2023 ambulatory Gynecology Comment on above: PRE OP TEACHING TELEVISIT Educational circumst ances (Primary Dx) Start: 09-18-2023 End: 09-18-2023 Anesthesia consultation 09/18/2023 1:30 PM EDT PAT Pre Anesthesia [address] [address] PRE OP Pre Anesthesia Comment on above: PRE OP Start: 09-12-2023 End: 09-12-2023 Patient encounter procedure 09/12/2023 2:00 PM EDT Office [place] [address] SURGERY [employer] Screening Comment on above: SURGERY Start: 08-21-2023 End: 08-21-2023 Patient encounter procedure 08/21/2023 10:15 AM EDT Office Visit OB/Gynecology [address] [place] [address] [place] [address] [place] [address] consultation for genital wart removal OB/Gynecology Comment on above: consultation for genital wart removal Start: 07-19-2023 End: 07-19-2023 Follow-up encounter 07/19/2023 1:00 PM EDT [facility] Neurology Pain [address] [place] [address] Drew Acuna DO [address] [place] [address] Ketamine follow up Neurology Pain Comment on above: Ketamine follow up Start: 07-07-2023 End: 07-07-2023 ambulatory 07/07/2023 12:45 PM EDT [facility] Neurology [address] [place] [address] Ketamine infusions Neurology Comment on above: Ketamine infusions Start: 07-06-2023 End: 07-06-2023 ambulatory 07/06/2023 12:45 PM EDT [facility] Neurology [address] [place] [address] Ketamine infusions Neurology Comment on above: Ketamine infusions Start: 07-05-2023 End: 07-05-2023 ambulatory 07/05/2023 12:45 PM EDT [facility] Neurology [address] [place] [address] Ketamine infusions Neurology Comment on above: Ketamine infusions Start: 07-04-2023 End: 07-04-2023 ambulatory 07/04/2023 12:45 PM EDT [facility] Neurology [address] [place] [address] Ketamine infusions Neurology Comment on above: Ketamine infusions Start: 07-03-2023 End: 07-03-2023 Telemedicine consultation with patient 07/03/2023 11:20 AM EDT Telemedicine [facility] Dermatology [address] [facility] [address] [place] [phone] Marie Larios PA-C [address] [facility] [address] [place] [address] [facility] Start: 06-28-2023 End: 09-27-2023 Ferritin [Mass/volume] in Serum or Plasma FERRITIN Lab Routine RLS (restless legs syndrome) Expected: 06/28/2023, Expires: 09/27/2023 [facility] Work Phone: Comment on above: Expected: 06/28/2023, Expires: 4 Start: 06-28-2023 End: 09-27-2023 Iron and Iron binding capacity panel - Serum or Plasma IRON AND TIBC Lab Routine RLS (restless legs syndrome) Expected: 06/28/2023, Expires: 09/27/2023 [facility] Work Phone: Comment on above: Expected: 06/28/2023, Expires: 4 Start: 05-30-2023 End: 05-30-2023 Patient encounter procedure 05/30/2023 2:00 PM EDT Office Visit [facility] Dermatology [address] [facility] [address] [place] [phone] Marie Larios PA-C [address] [facility] [address] [place] [address] [facility] Start: 04-24-2023 End: 04-24-2024 CBC W Auto Differential panel - Blood CBC auto differential Lab Routine Encounter for long-term (current) use of high-risk medication Expected: 04/24/2023 (Approximate), Expires: 04/24/2024 [facility] Work Phone: Comment on above: Expected: 04/24/2023 (Approximate), Expi res: 04/24/2024 Start: 04-24-2023 End: 04-24-2024 Comprehensive metabolic 1998 panel - Serum or Plasma Comprehensive metabolic panel Lab Routine Encounter for long-term (current) use of high-risk medication Expected: 04/24/2023 (Approximate), Expires: 04/24/2024 [facility] Comment on above: Expected: 04/24/2023 (Approximate), Expi res: 04/24/2024 Start: 04-24-2023 End: 04-24-2024 hCG, quantitative hCG, quantitative Lab Routine Encounter for long-term (current) use of high-risk medication Expected: 04/24/2023 (Approximate), Expires: 04/24/2024 [facility] Comment on above: Expected: 04/24/2023 (Approximate), Expi res: 04/24/2024 Start: 04-24-2023 End: 04-24-2024 Lipid 1996 panel - Serum or Plasma Lipid panel Lab Routine Encounter for long-term (current) use of high-risk medication Expected: 04/24/2023 (Approximate), Expires: 04/24/2024 [facility] Comment on above: Expected: 04/24/2023 (Approximate), Expi res: 04/24/2024 Start: 04-18-2023 End: 04-18-2023 Telemedicine consultation with patient 04/18/2023 3:40 PM EST Telemedicine [facility] Dermatology [address] [facility] [address] [place] [address] Marie Larios PA-C [address] [facility] [address] [place] [id number] [facility] Start: 03-16-2023 End: 03-16-2023 Patient encounter procedure 03/16/2023 2:40 PM EST Office Visit [facility] Dermatology [address] [facility] [address] [place] [address] Marie Larios PA-C [address] [facility] [address] [place] [id number] [facility] Start: 03-13-2023 Depression Assessment Depression Assessment [facility] Start: 01-24-2023 End: 01-24-2023 Patient encounter procedure 01/24/2023 2:00 PM EST Office Visit [facility] Dermatology [address] [facility] [address] [place] [phone] Marie Larios PA-C [address] [facility] [address] [place] [id number] [facility] Start: 2023 Screening for malignant neoplasm of cervix [facility] Start: 01-09-2023 End: 04-10-2023 25-hydroxyvitamin D3 [Mass/volume] in Serum or Plasma VITAMIN D 25 HYDROXY Lab Routine Encounter for vitamin deficiency screening Expected: 01/09/2023, Expires: 04/10/2023 [facility] Work Phone: Comment on above: Expected: 01/09/2023, Expires: Start: 01-09-2023 End: 04-10-2023 CBC panel - Blood by Automated count CBC Lab Routine Screening for deficiency anemia Expected: 01/09/2023, Expires: 04/10/2023 [facility] Work Phone: Comment on above: Expected: 01/09/2023, Expires: Start: 01-09-2023 End: 04-10-2023 Comprehensive metabolic 2000 panel - Serum or Plasma COMP METABOLIC PANEL Lab Routine Screening for deficiency anemia Expected: 01/09/2023, Expires: 04/10/2023 [facility] Work Phone: Comment on above: Expected: 01/09/2023, Expires: 4 Start: 01-09-2023 End: 04-10-2023 Hemoglobin A1c in Blood HGB A1C Lab Routine Screening for diabetes mellitus Expected: 01/09/2023, Expires: 04/10/2023 [facility] Work Phone: Comment on above: Expected: 01/09/2023, Expires: Start: 01-09-2023 End: 04-10-2023 Insulin [Units/volume] in Serum or Plasma INSULIN ASSAY BLOOD Lab Routine Screening for diabetes mellitus Expected: 01/09/2023, Expires: 04/10/2023 [facility] Work Phone: Comment on above: Expected: 01/09/2023, Expires: Start: 01-09-2023 End: 04-10-2023 Lipid 1996 panel - Serum or Plasma LIPID PANEL BASIC Lab Routine Screening cholesterol level Expected: 01/09/2023, Expires: 04/10/2023 [facility] Work Phone: Comment on above: Expected: 01/09/2023, Expires: 4 Start: 01-09-2023 End: 04-10-2023 Thyrotropin [Units/volume] in Serum or Plasma TSH BLD Lab Routine Screening for thyroid disorder Expected: 01/09/2023, Expires: 04/10/2023 [facility] Work Phone: Comment on above: Expected: 01/09/2023, Expires: 4 Start: 12-14-2022 End: 12-14-2022 Patient encounter procedure 12/14/2022 2:00 PM EDT Office Visit [facility] Dermatology [address] [facility] [address] [place] [phone] Marie Larios PA-C [address] [facility] [address] [place], [place] [phone] [facility] Start: 12-12-2022 End: 12-12-2022 Patient encounter procedure 12/12/2022 3:40 PM EDT Office Visit [facility] Dermatology [address] [facility] [address] [place] [phone] Marie Larios PA-C [address] [facility] [address] [place], [place] [phone] [facility] Start: 12-11-2022 Influenza vaccination Influenza Vaccine (#1) [facility] Start: 11-11-2022 Covid-19 Vaccine ( season) Covid-19 Vaccine ( season) [facility] Start: 11-11-2022 Influenza vaccination [facility] Start: 10-25-2022 End: 10-25-2022 Telemedicine consultation with patient [facility] Start: 09-27-2022 End: 11-27-2022 Ferritin [Mass/volume] in Serum or Plasma FERRITIN BLD Lab Routine RLS (restless legs syndrome) Expected: 09/27/2022, Expires: 11/27/2022 [facility] Work Phone: Comment on above: Expected: 09/27/2022, Expires: Start: 09-27-2022 End: 11-27-2022 Iron and Iron binding capacity panel - Serum or Plasma IRON + TIBC Lab Routine RLS (restless legs syndrome) Expected: 09/27/2022, Expires: 11/27/2022 [facility] Work Phone: Comment on above: Expected: 09/27/2022, Expires: Start: 09-27-2022 End: 11-27-2022 Transferrin [Mass/volume] in Serum or Plasma TRANSFERRIN BLD Lab Routine RLS (restless legs syndrome) Expected: 09/27/2022, Expires: 11/27/2022 [facility] Work Phone: Comment on above: Expected: 09/27/2022, Expires: Start: 09-26-2022 End: 09-27-2023 hCG, urine, qualitative hCG, urine, qualitative Lab Routine Acne vulgaris Encounter for long-term (current) use of high-risk medication Expected: 09/26/2022 (Approximate), Expires: 09/27/2023 [facility] Work Phone: Comment on above: Expected: 09/26/2022 (Approximate), Expi res: 09/27/2023 Start: 09-26-2022 End: 09-26-2022 Telemedicine consultation with patient [facility] Dermatology Start: 09-16-2022 End: 11-16-2022 C reactive protein [Mass/volume] in Serum or Plasma C-REACTIVE PROTEIN (CRP) Lab Routine Chronic pain syndrome Expected: 09/16/2022, Expires: 11/16/2022 [facility] Work Phone: Comment on above: Expected: 09/16/2022, Expires: Start: 09-16-2022 End: 11-16-2022 Cobalamin (Vitamin B12) [Mass/volume] in Serum or Plasma VITAMIN B12 BLOOD Lab Routine Chronic pain syndrome Expected: 09/16/2022, Expires: 11/16/2022 [facility] Work Phone: Comment on above: Expected: 09/16/2022, Expires: 3 Start: 09-16-2022 End: 11-16-2022 Extractable nuclear Ab panel - Serum ANTI JESUS ID Lab Routine Chronic pain syndrome Expected: 09/16/2022, Expires: 11/16/2022 [facility] Work Phone: Comment on above: Expected: 09/16/2022, Expires: 3 Start: 09-16-2022 End: 11-16-2022 MONOCLONAL PROTEIN, SERUM (BLOOD) MONOCLONAL PROTEIN, SERUM (BLOOD) Lab Routine Chronic pain syndrome Expected: 09/16/2022, Expires: 11/16/2022 [facility] Work Phone: Comment on above: Expected: 09/16/2022, Expires: 3 Start: 09-16-2022 End: 11-16-2022 PROTEIN ELECTROPHORESIS SERUM W/INTERP PROTEIN ELECTROPHORESIS SERUM W/INTERP Lab Routine Chronic pain syndrome Expected: 09/16/2022, Expires: 11/16/2022 [facility] Work Phone: Comment on above: Expected: 09/16/2022, Expires: 3 Start: 08-25-2022 End: 08-25-2022 Telemedicine consultation with patient 08/25/2022 Telemedicine Dermatology Rosie Vuong PA [address] [facility] [address] [place] [address] [facility] Start: 07-25-2022 End: 07-25-2022 Telemedicine consultation with patient 07/25/2022 Telemedicine Dermatology Rosie Vuong PA [address] [facility] [address] [place] [address] [facility] Start: 07-15-2022 End: 07-15-2022 Patient encounter procedure 07/15/2022 Office Visit Weight Management Shira Cavazos MD [address] [facility] [address] [place] [address] Weight Management [place] Start: 07-13-2022 End: 09-12-2022 25-hydroxyvitamin D3 [Mass/volume] in Serum or Plasma VITAMIN D 25 HYDROXY Lab Routine Spinal stenosis of cervical region Coccygodynia Segmental and somatic dysfunction of sacral region Chronic pelvic pain syndrome in female Chronic pain syndrome Central sensitization to pain Expected: 07/13/2022, Expires: 09/12/2022 [facility] Work Phone: Comment on above: Expected: 07/13/2022, Expires: 3 Start: 07-13-2022 End: 09-12-2022 Cobalamin (Vitamin B12) [Mass/volume] in Serum or Plasma VITAMIN B12 BLOOD Lab Routine Spinal stenosis of cervical region Coccygodynia Segmental and somatic dysfunction of sacral region Chronic pelvic pain syndrome in female Chronic pain syndrome Central sensitization to pain Expected: 07/13/2022, Expires: 09/12/2022 [facility] Work Phone: Comment on above: Expected: 07/13/2022, Expires: Start: 07-13-2022 End: 09-12-2022 Cyclic citrullinated peptide IgG Ab [Units/volume] in Serum or Plasma CCP ANTIBODY IGG Lab Routine Spinal stenosis of cervical region Coccygodynia Segmental and somatic dysfunction of sacral region Chronic pelvic pain syndrome in female Chronic pain syndrome Central sensitization to pain Expected: 07/13/2022, Expires: 09/12/2022 [facility] Work Phone: Comment on above: Expected: 07/13/2022, Expires: 3 Start: 07-13-2022 End: 09-12-2022 Extractable nuclear Ab panel - Serum ANTI JESUS ID Lab Routine Spinal stenosis of cervical region Coccygodynia Segmental and somatic dysfunction of sacral region Chronic pelvic pain syndrome in female Chronic pain syndrome Central sensitization to pain Expected: 07/13/2022, Expires: 09/12/2022 [facility] Work Phone: Comment on above: Expected: 07/13/2022, Expires: Start: 06-27-2022 End: 06-27-2022 Telemedicine consultation with patient 06/27/2022 Telemedicine Dermatology Rosie Vuong PA [address] [facility] [address] [place] [address] [facility] Dermatology Start: 06-15-2022 End: 06-16-2023 Basic metabolic 1998 panel - Serum or Plasma Basic metabolic panel Lab Routine Long-term use of high-risk medication Expected: 06/15/2022 (Approximate), Expires: 06/16/2023 [facility] Comment on above: Expected: 06/15/2022 (Approximate), Expi res: 06/16/2023 Start: 06-15-2022 End: 06-16-2023 Hemoglobin A1c/Hemoglobin.total in Blood Hemoglobin A1c Lab Routine Screening for diabetes mellitus (DM) Expected: 06/15/2022 (Approximate), Expires: 06/16/2023 [facility] Work Phone: Comment on above: Expected: 06/15/2022 (Approximate), Expi res: 06/16/2023 Start: 06-15-2022 End: 06-16-2023 Insulin, Free & Total Insulin, Free & Total Lab Routine Insulin resistance Expected: 06/15/2022 (Approximate), Expires: 06/16/2023 [facility] Comment on above: Expected: 06/15/2022 (Approximate), Expi res: 06/16/2023 Start: 06-15-2022 End: 06-16-2023 Thyrotropin [Units/volume] in Serum or Plasma TSH Lab Routine Other fatigue Expected: 06/15/2022 (Approximate), Expires: 06/16/2023 [facility] Comment on above: Expected: 06/15/2022 (Approximate), Expi res: 06/16/2023 Start: 06-15-2022 End: 06-15-2022 Patient encounter procedure 06/15/2022 Office Visit Weight Management Shira Cavazos MD [address] [place], [place] [id number] Weight Management [place] Start: 05-25-2022 End: 05-13-2023 hCG, quantitative, hCG, quantitative, Lab Routine Acne vulgaris Expected: 05/25/2022 (Approximate), Expires: 05/13/2023 [facility] Work Phone: Comment on above: Expected: 05/25/2022 (Approximate), Expi res: 05/13/2023 Start: 05-12-2022 End: 05-12-2022 Patient encounter procedure 05/12/2022 Office Visit Dermatology Rosie Vuong PA [address] [facility] [address] [place] [address] Dermatology [facility] Start: 03-13-2022 DEPRESSION ASSESSMENT DEPRESSION ASSESSMENT [facility] Start: 03-03-2022 End: 04-03-2023 Radex spine cervical 2 or 3 views XR CERV GENERAL 2V AP/LAT Radiology Routine Chronic pain syndrome Expected: 03/03/2022, Expires: 04/03/2023 [facility] Work Phone: Comment on above: Expected: 03/03/2022, Expires: 4 Start: 03-03-2022 End: 04-03-2023 Radex spine lumbosacral 2/3 views XR LUMBAR LIMITED 2V AP/LAT Radiology Routine Chronic pain syndrome Expected: 03/03/2022, Expires: 04/03/2023 [facility] Work Phone: Comment on above: Expected: 03/03/2022, Expires: 4 Start: 03-03-2022 End: 04-03-2023 XR KNEE LIMITED 2V AP/LAT RIGHT XR KNEE LIMITED 2V AP/LAT RIGHT Radiology Routine Chronic pain syndrome Expected: 03/03/2022, Expires: 04/03/2023 [facility] Work Phone: Comment on above: Expected: 03/03/2022, Expires: 4 Start: 03-03-2022 End: 04-03-2023 XR SHOULDER LIMITED 2V AP/TRUE AP LEFT XR SHOULDER LIMITED 2V AP/TRUE AP LEFT Radiology Routine Chronic pain syndrome Expected: 03/03/2022, Expires: 04/03/2023 [facility] Work Phone: Comment on above: Expected: 03/03/2022, Expires: 4 Start: 03-03-2022 End: 04-03-2023 XR SHOULDER [id number] AP/TRUE AP RIGHT XR SHOULDER [id number] AP/TRUE AP RIGHT Radiology Routine Chronic pain syndrome Expected: 03/03/2022, Expires: 04/03/2023 [facility] Work Phone: Comment on above: Expected: 03/03/2022, Expires: 4 Start: 11-11-2021 Influenza vaccination [facility] Start: 10-04-2021 PAP TESTING PAP TESTING [facility] Start: 08-14-2021 COVID-19 VACCINE (3 - Booster for Pfizer series) COVID-19 VACCINE (3 - Booster for Pfizer series) [facility] Start: 06-15-2021 End: 08-15-2021 C reactive protein [Mass/volume] in Serum or Plasma C-REACTIVE PROTEIN (CRP) Lab Routine Constipation, unspecified constipation type Expected: 06/15/2021, Expires: 08/15/2021 [facility] Work Phone: Comment on above: Expected: 06/15/2021, Expires: 2 Start: 06-15-2021 End: 08-15-2021 Erythrocyte sedimentation rate SED RATE WESTERGREN Lab Routine Constipation, unspecified constipation type Expected: 06/15/2021, Expires: 08/15/2021 [facility] Work Phone: Comment on above: Expected: 06/15/2021, Expires: 2 Start: 06-15-2021 End: 08-15-2021 HEPATITIS A ANTIBODY, IGG HEPATITIS A ANTIBODY, IGG Lab Routine Chronic hepatitis C without hepatic coma (HCC) Expected: 06/15/2021, Expires: 08/15/2021 [facility] Work Phone: Comment on above: Expected: 06/15/2021, Expires: 2 Start: 06-15-2021 End: 08-15-2021 Hepatitis B virus core Ab [Presence] in Serum HEP B CORE AB TOTAL Lab Routine Chronic hepatitis C without hepatic coma (HCC) Expected: 06/15/2021, Expires: 08/15/2021 [facility] Work Phone: Comment on above: Expected: 06/15/2021, Expires: 2 Start: 06-15-2021 End: 08-15-2021 Hepatitis B virus surface Ab [Presence] in Serum by Immunoassay HEP B SURF AG SCRN Lab Routine Chronic hepatitis C without hepatic coma (HCC) Expected: 06/15/2021, Expires: 08/15/2021 [facility] Work Phone: Comment on above: Expected: 06/15/2021, Expires: 2 Start: 06-15-2021 End: 08-15-2021 Hepatitis B virus surface Ab [Units/volume] in Serum HEP B SURF AB QUANT Lab Routine Chronic hepatitis C without hepatic coma (HCC) Expected: 06/15/2021, Expires: 08/15/2021 [facility] Work Phone: Comment on above: Expected: 06/15/2021, Expires: 2 Start: 05-11-2021 COVID-19 VACCINE (3 - Booster for Pfizer series) COVID-19 VACCINE (3 - Booster for Pfizer series) [facility] Start: 05-11-2021 COVID-19 VACCINE (3 - Pfizer series) COVID-19 VACCINE (3 - Pfizer series) [facility] Start: 05-10-2021 Adult depression screening assessment DEPRESSION SCREENING [facility] Start: 04-13-2021 COVID-19 Vaccine (3 - Pfizer risk series) COVID-19 Vaccine (3 - Pfizer risk series) [facility] Start: 03-13-2021 DEPRESSION ASSESSMENT DEPRESSION ASSESSMENT [facility] Start: 11-11-2020 Influenza vaccination INFLUENZA (#1) [facility] Start: 11-11-2018 Influenza vaccination Flu vaccine (#1) [place], [place] Start: 10-31-2016 End: 10-31-2016 Appointment Appointment [facility] Work Phone: Start: 10-05-2016 End: 10-05-2016 Physical Therapy General Physical Therapy [facility], [address] [place] [address], [id number] [facility] Work Phone: Start: 10-03-2016 End: 10-03-2016 Appointment Appointment [facility] Work Phone: Start: 09-20-2016 End: 09-20-2016 Appointment Appointment [facility] Work Phone: Start: 08-24-2016 End: 08-24-2016 Appointment Appointment [facility] Work Phone: Start: 07-04-2016 End: 07-04-2016 Mri joint upr extrem w/o dye MRI Joint Upper Extremity [facility] Work Phone: Start: 07-04-2016 End: 07-04-2016 Mri neck spine w/o dye MRI Cervical Spine [facility] Work Phone: Start: 06-27-2016 End: 06-27-2016 Follow up Appt 2x/Month Follow up Appt 2x/Month [facility] Work Phone: Start: 06-02-2016 End: 06-02-2016 Follow up Appt 1x/week Follow up Appt 1x/week [facility] Work Phone: Start: 05-23-2016 End: 05-23-2016 Follow up Appt 2x/week Follow up Appt 2x/week [facility] Work Phone: Start: 05-19-2016 End: 05-19-2016 Follow up Appt 2x/week Follow up Appt 2x/week [facility] Work Phone: Start: 05-18-2016 End: 05-19-2016 Follow up Appt 2x/week Follow up Appt 2x/week [facility] Work Phone: Start: 05-12-2016 End: 05-12-2016 Follow up Appt 2x/week Follow up Appt 2x/week [facility] Work Phone: Start: 05-12-2016 End: 05-12-2016 Follow up Appt 3x/week Follow up Appt 3x/week [facility] Work Phone: Start: 05-05-2016 End: 05-05-2016 Follow up Appt 2x/week Follow up Appt 2x/week [facility] Work Phone: Start: 05-03-2016 End: 05-03-2016 Follow up Appt 2x/week Follow up Appt 2x/week [facility] Work Phone: Start: 04-26-2016 End: 04-26-2016 Follow up Appt 2x/week Follow up Appt 2x/week [facility] Work Phone: Start: 04-21-2016 End: 04-21-2016 Follow up Appt 1x/week Follow up Appt 1x/week [facility] Work Phone: Start: 04-21-2016 End: 04-21-2016 X-ray exam of neck spine X-Ray, Spine, Cervical 2-3 views [facility] Work Phone: Start: 04-13-2016 End: 04-13-2016 Physical Therapy General Physical Therapy [facility], [address] [place] [address], [phone] [facility] Work Phone: Start: 08-20-2014 PNEUMOCOCCAL (2 - PCV) PNEUMOCOCCAL (2 - PCV) [facility] Start: 08-20-2014 Pneumococcal 0-49 years Vaccine (2 of 2 - PCV) Pneumococcal 0-49 years Vaccine (2 of 2 - PCV) [facility] Start: 08-20-2014 Pneumococcal vaccination [facility] Start: 08-20-2014 Pneumococcal Vaccine: Pediatrics (0 to 5 Years) and At-Risk Patients (6 to 49 Years) (2 of 2 - PCV) Pneumococcal Vaccine: Pediatrics (0 to 5 Years) and At-Risk Patients (6 to 49 Years) (2 of 2 - PCV) [facility] Start: 08-20-2014 Pneumococcal Vaccine: Pediatrics (0 to 5 Years) and At-Risk Patients (6 to 64 Years) (2 - PCV) Pneumococcal Vaccine: Pediatrics (0 to 5 Years) and At-Risk Patients (6 to 64 Years) (2 - PCV) [facility] Start: 08-20-2014 Pneumococcal Vaccine: Pediatrics (0 to 5 Years) and At-Risk Patients (6 to 64 Years) (2 of 2 - PCV) Pneumococcal Vaccine: Pediatrics (0 to 5 Years) and At-Risk Patients (6 to 64 Years) (2 of 2 - PCV) [facility] Start: 2014 Screening for malignant neoplasm of cervix Pap Smear [facility] Start: 01-22-2012 Hepatitis B vaccination Hepatitis B (HBV) Vaccine (1 of 3 - 19+ 3-dose series) [facility] Start: 01-22-2012 Hepatitis B vaccine (1 of 3 - 19+ 3-dose series) Hepatitis B vaccine (1 of 3 - 19+ 3-dose series) [facility] Start: 01-22-2012 Zoster Vaccines (1 of 2) Zoster Vaccines (1 of 2) [facility] Start: 2011 Anxiety Screening Anxiety Screening [facility] Start: 2011 Depression Screening Depression Screening [facility] Start: 2011 Hepatitis C screening [facility] Start: 01-22-2008 HIV screening [facility] Start: 2006 Varicella vaccination Varicella Vaccines (1 of 2 - 13+ 2-dose series) [facility] Start: 2006 Varicella vaccine (1 of 2 - 13+ 2-dose series) Varicella vaccine (1 of 2 - 13+ 2-dose series) [facility] Start: 2005 Depression Monitoring Depression Monitoring [facility] Start: 2005 Depresssion Monitoring Depresssion Monitoring [facility] Start: 01-07-1998 Varicella vaccination Varicella Vaccines (1 of 2 - 2-dose childhood series) [facility] Start: 1993 COVID-19 Vaccine (#1) COVID-19 Vaccine (#1) [facility] Start: 1993 Examination of skin Derm Melanoma Skin Check [facility] Start: 1993 Hepatitis B vaccination Hepatitis B (HBV) Vaccine (1 of 3 - 3-dose series) [facility] Start: 1993 HIV screening HIV Screening [facility] BACTERIAL VAGINOSIS AMPLIFICATION BACTERIAL VAGINOSIS AMPLIFICATION Lab Routine Vaginal discharge 06/28/2021 3:54 PM EDT [facility] Work Phone: BACTERIAL VAGINOSIS AMPLIFICATION BACTERIAL VAGINOSIS AMPLIFICATION Lab Routine Vaginal discharge 10/25/2021 9:31 AM EDT [facility] Work Phone: BACTERIAL VAGINOSIS AMPLIFICATION BACTERIAL VAGINOSIS AMPLIFICATION Lab Routine Vaginal discharge Ordered: 01/10/2022 [facility] Work Phone: Comment on above: Ordered: 01/10/2022 BACTERIAL VAGINOSIS NAAT BACTERI AL VAGINOSIS NAAT Lab Routine Vaginal irritation 05/13/2024 12:39 PM EST [facility] End: 05-27-2019 Basic metabolic 2000 panel Basic Metabolic Panel Lab STAT One Time for 1 Occurrences starting 05/27/2019 until 05/27/2019 [place], [place] Comment on above: One Time for 1 Occurrences starting 05/11 until 05/27/2019 Biopsy vulva/perineu m 1 lesion spx BIOPSY OF VULVA Procedures Routine Genital warts Ordered: 08/21/2023 [facility] Work Phone: Comment on above: Ordered: 08/21/2023 Calprotectin [Mass/m ass] in Stool CALPROTECTIN,FECAL Lab Routine Constipation, unspecified constipation type Ordered: 06/15/2021 [facility] Work Phone: Comment on above: Ordered: 06/15/2021 YANG / TRICHOMONA S AMPLIFICATION YANG / TRICHOMONAS AMPLIFICATION Lab Routine Vaginal discharge 06/28/2021 3:54 PM EDT [facility] Work Phone: YANG / TRICHOMONA S AMPLIFICATION YANG / TRICHOMONAS AMPLIFICATION Lab Routine Vaginal discharge 10/25/2021 9:31 AM EDT [facility] Work Phone: YANG / TRICHOMONA S AMPLIFICATION YANG / TRICHOMONAS AMPLIFICATION Microbiology Routine Vaginal discharge Ordered: 01/10/2022 [facility] Work Phone: Comment on above: Ordered: 01/10/2022 YANG/TRICHOMONAS NAAT YANG /TRICHOMONAS NAAT Lab Routine Vaginal irritation 05/13/2024 12:39 PM EST [facility] Chlamydia trachomatis+Neisseria gonorrhoeae DNA [Presence] in Unspecified specimen by DONNA with probe detection GC/CHLAMYDIA DNA DET Lab Routine Vaginal discharge Vaginal irritation 06/28/2021 4:00 PM EDT [facility] Work Phone: Chlamydia trachomatis+Neisseria gonorrhoeae DNA [Presence] in Unspecified specimen by DONNA with probe detection GC/CHLAMYDIA DNA DET Lab Routine Vaginal discharge Ordered: 01/10/2022 [facility] Work Phone: Comment on above: Ordered: 01/10/2022 Injection aa&/strd pudendal nerve DIAG/THER NERVE BLOCK PUDENDAL Procedures Routine Chronic pelvic pain in female Ordered: 01/04/2023 [facility] Work Phone: Comment on above: Ordered: 01/04/2023 Injection aa&/strd pudendal nerve DIAG/THER NERVE BLOCK PUDENDAL Procedures Routine Chronic pelvic pain syndrome in female Vulvar pain Ordered: 02/20/2023 [facility] Work Phone: Comment on above: Ordered: 02/20/2023 Iv infusion therapy/prophylaxis /dx 1st to 1 hr THER/PROPH/DIAG IV INF, INIT Procedures Routine Fibromyalgia Ordered: 04/07/2022 [facility] Work Phone: Comment on above: Ordered: 04/07/2022 Microscopic observat ion [Identifier] in Vaginal fluid by Gram stain BACT/YANG VAG GRAM STAIN Microbiology Routine Vulvar irritation 10/12/2021 2:55 PM EDT [facility] Work Phone: End: 03-21-2024 Mri pelvis w/o & w/contrast material MRI SACRAL PLEXUS WO/W IVCON Radiology Routine Lumbosacral plexus disorders Segmental and somatic dysfunction of sacral region Chronic pelvic pain syndrome in female Vulvar pain Coccygodynia 1 Occurrences starting 02/20/2023 until 03/21/2024 [facility] Work Phone: Comment on above: 1 Occurrences starting 02/20/2023 until 03/21/2024 Mri pelvis w/o & w/contrast material MRI SACRAL PLEXUS WO/W IVCON Radiology Routine Lumbosacral plexus disorders Segmental and somatic dysfunction of sacral region Chronic pelvic pain syndrome in female Vulvar pain Coccygodynia 04/13/2023 2:04 PM EST [facility] Work Phone: End: 08-12-2023 Mri spinal canal cervical w/o contrast matrl MRI CERVICAL SPINE WO IVCON Radiology Routine Spinal stenosis of cervical region 1 Occurrences starting 07/13/2022 until 08/12/2023 [facility] Work Phone: Comment on above: 1 Occurrences starting 07/13/2022 until 08/12/2023 End: 05-07-2023 Mri spinal canal lumbar w/o contrast material MRI LUMBAR SPINE WO IVCON Radiology Routine Spinal stenosis of lumbar region with neurogenic claudication 1 Occurrences starting 04/07/2022 until 05/07/2023 [facility] Work Phone: Comment on above: 1 Occurrences starting 04/07/2022 until 05/07/2023 PAP TEST PAP TEST Lab [facility] Screening for malignant neoplasm of cervix Encounter for screening for human papillomavirus (HPV) 05/13/2024 12:39 PM EST [facility] Work Phone: Patient Education [facility] Work Phone: End: 09-27-2023 Polysomnogram POLYSOMNOGRAM (PSG) Procedures Routine Snoring RLS (restless legs syndrome) Class 2 drug-induced obesity without serious comorbidity with body mass index (BMI) of 39.0 to 39.9 in adult 1 Occurrences starting 09/27/2022 until 09/27/2023 [facility] Work Phone: Comment on above: 1 Occurrences starting 09/27/2022 until 09/27/2023 PROPHYLAXIS - ADULT PROPHYLAXIS - ADULT Dental Routine 1 Occurrences starting 11/09/2022 [facility] Work Phone: Comment on above: 1 Occurrences starting 11/09/2022 End: 08-12-2023 Radex sacrum & coccyx minimum 2 views XR SACRUM/COCCYX 3V AP/LAT Radiology Routine Spinal stenosis of cervical region Coccygodynia Segmental and somatic dysfunction of sacral region 1 Occurrences starting 07/13/2022 until 08/12/2023 [facility] Work Phone: Comment on above: 1 Occurrences starting 07/13/2022 until 08/12/2023 End: 07-15-2022 Radiologic exam abdomen 2 views XR ABDOMEN 2V ROUTINE SUPINE W UPRIGHT/DECUB/CTL Radiology Routine Constipation, unspecified constipation type 1 Occurrences starting 06/15/2021 until 07/15/2022 [facility] Work Phone: Comment on above: 1 Occurrences starting 06/15/2021 until 07/15/2022 End: 10-22-2023 Radiologic exam abdomen 3+ views XR ABDOMEN 3V KUB W/OBLIQUES Radiology Routine Slow transit constipation 1 Occurrences starting 09/22/2022 until 10/22/2023 [facility] Work Phone: Comment on above: 1 Occurrences starting 09/22/2022 until 10/22/2023 SURGICAL PATHOLOGY SURGICAL PATH OLOGY Lab Routine Vulvar irritation Ordered: 10/12/2021 [facility] Work Phone: Comment on above: Ordered: 10/12/2021 SURGICAL PATHOLOGY SURGICAL PATH OLOGY Lab Routine Vulvar irritation Ordered: 06/01/2023 [facility] Work Phone: Comment on above: Ordered: 06/01/2023 SURGICAL PATHOLOGY SURGICAL PATH OLOGY Lab Routine Vulvar lesion 09/19/2023 12:22 PM EDT [facility] Work Phone: Tissue exam Tissue exam Path ology and Cytology Timed Rash Neoplasm of uncertain behavior of skin Release Upon Ordering for 1 Occurrences starting 12/26/2022 [facility] Work Phone: Comment on above: Release Upon Ordering for 1 Occurrences starting 12/26/2022 Tissue exam Tissue exam Path ology and Cytology Timed Neoplasm of uncertain behavior of skin Release Upon Ordering for 1 Occurrences starting 10/16/2023 [facility] Work Phone: Comment on above: Release Upon Ordering for 1 Occurrences starting 10/16/2023 End: 05-27-2019 Urinalysis Urinalysis Lab STAT One Time for 1 Occurrences starting 05/27/2019 until 05/27/2019 [facility] Comment on above: One Time for 1 Occurrences starting 05/11 until 05/27/2019 Urinalysis Urinalysis Lab S TAT 05/28/2019 12:25 AM EDT [facility] [place] End: 11-21-2024 US Pelvis transvaginal US FEMALE PELVIS TRANSVAG Radiology Routine Secondary dysmenorrhea 1 Occurrences starting 10/23/2023 until 11/21/2024 [facility] Work Phone: Comment on above: 1 Occurrences starting 10/23/2023 until 11/21/2024 End: 10-23-2024 XR Knee - left 4 Views [facility] Comment on above: 1 Occurrences starting 10/23/2024 until 10/23/2024 End: 10-23-2024 XR Knee - right 4 Views [facility] Work Phone: Comment on above: 1 Occurrences starting 10/23/2024 until 10[facility]23/2024 [facility] Immunizations Immunization Date Immunization Notes Care Provider Fa cili 03-16-2021 SARS-CoV-2 mRNA (tozinameran) vaccine MICHELE BELL DO [facility] [place] 12-19-2020 SARS-CoV-2 mRNA (tozinameran) vaccine MICHELE BELL DO [facility] [place] 07-07-2017 tetanus toxoid, redu jonathan diphtheria toxoid, and acellular pertussis vaccine, adsorbed Maria M Dos Santos DO Work Phone: [facility] 02-23-2016 influenza, seasonal, injectable, preservative free Ramona Slade APRN.[employer] Work Phone: [facility] 02-23-2016 influenza virus vaccine, unspecified formulation Shira Cavazos MD Work Phone: [facility] 11-18-2014 influenza virus vaccine, unspecified formulation MICHELE BELL DO [facility] 11-18-2014 influenza, seasonal, injectable Maria M Dos Santos DO Work Phone: [facility] Work Phone: 08-20-2013 pneumococcal polysaccharide vaccine, 23 valent Maria M Dos Santos DO Work Phone: [facility] Work Phone: 06-10-2008 human papilloma viru s vaccine, quadrivalent Maria M Dos Santos DO Work Phone: [facility] 06-06-2007 hepatitis A vaccine, unspecified formulation Maria M Dos Santos DO Work Phone: [facility] Work Phone: 06-06-2007 human papilloma viru s vaccine, quadrivalent Maria M Dos Santos DO Work Phone: [facility] Work Phone: 09-05-2006 hepatitis A vaccine, unspecified formulation Maria Mmelina Dos Santos DO Work Phone: [facility] Work Phone: 09-05-2006 human papilloma viru s vaccine, quadrivalent Maria Mmelina Dos Santos DO Work Phone: [facility] Work Phone: 09-05-2006 Meningococcal, MCV4, unspecified conjugate formulation(groups A, C, Y and W-135) Maria M Dos Santos DO Work Phone: [facility] Work Phone: 09-05-2006 tetanus toxoid, redu jonathan diphtheria toxoid, and acellular pertussis vaccine, adsorbed Maria Mmelina Dos Santos DO Work Phone: [facility] Work Phone: 12-10-1997 measles, mumps and rubella virus vaccine Maria M Dos Santos DO Work Phone: [facility] Work Phone: 09-03-1997 diphtheria, tetanus toxoids and acellular pertussis vaccine Maria M Dos Santos DO Work Phone: [facility] Work Phone: 09-03-1997 trivalent poliovirus vaccine, live, oral Maria Mmelina Dos Santos DO Work Phone: [facility] Work Phone: 05-13-1994 diphtheria, tetanus toxoids and acellular pertussis vaccine Maria M Levon DO Work Phone: [facility] Work Phone: 05-13-1994 haemophilus influenz ae type b vaccine, HbOC conjugate Maria M Dos Santos DO Work Phone: [facility] Work Phone: 02-08-1994 measles, mumps and rubella virus vaccine Maria Mmelina Dos Santos DO Work Phone: [facility] Work Phone: 1993 hepatitis B vaccine, pediatric or pediatric/adolescent dosage Maria Mmelina Dos Santos DO Work Phone: [facility] Work Phone: 1993 diphtheria, tetanus toxoids and pertussis vaccine Maria Mmelina Dos Santos DO Work Phone: [facility] Work Phone: 1993 haemophilus influenz ae type b vaccine, HbOC conjugate [facility] Work Phone: [facility] Work Phone: 1993 trivalent poliovirus vaccine, live, oral Maria M Dos Santos DO Work Phone: [facility] Work Phone: 1993 diphtheria, tetanus toxoids and pertussis vaccine Maria M Dos Santos DO Work Phone: [facility] Work Phone: 1993 haemophilus influenz ae type b vaccine, HbOC conjugate Maria M Dos Santos DO Work Phone: [facility] Work Phone: 1993 trivalent poliovirus vaccine, live, oral Maria M Dos Santos DO Work Phone: [facility] Work Phone: 1993 diphtheria, tetanus toxoids and pertussis vaccine Maria Mmelina Dos Santos DO Work Phone: [facility] Work Phone: 1993 haemophilus influenz ae type b vaccine, HbOC conjugate Maria M Escapioleo DO Work Phone: [facility] Work Phone: 1993 trivalent poliovirus vaccine, live, oral Maria M Dos Santos DO Work Phone: [facility] Work Phone: 1993 hepatitis B vaccine, pediatric or pediatric/adolescent dosage Maria Mmelina Doughertyli DO Work Phone: [facility] Work Phone: 1993 hepatitis B vaccine, pediatric or pediatric/adolescent dosage Maria M Doughertyli DO Work Phone: [facility] Work Phone: Payers Date Payer Category Payer Self-pay 2022 Medicaid [id number] 2021 Dental --Stand Alone [employer] MEDICA[employer] [id number] 2019 Unknown 2017 Medicaid HMO [id number] 2017 Unknown [employer] [facility] MEDICAID xxxxxxxxxxx 2017-Present [phone] CLAIMS DEPARTMENT [address] [place] [address] xxxxxxxxxxx [id number] 2013 Medicaid [employer] MEDICAID [id number] 2013-Present [phone] [address] [place] [address] Medicaid [id number] 2013 Medicaid [id number] 1993 Unknown [id number] 2.16840.1.066572.3.579.2.6 27 1993 Unknown [id number] 2.16840.1.429431.3.579.2.6 27 1993 Unknown [id number] 2.16840.1.603184.3.579.2.6 27 1993 Unknown [id number] 2.16840.1.302136.3.579.2.6 27 1993 Unknown [id number] 2.840.1.701494.3.579.2.6 27 1993 Unknown [id number] 2.16840.1.840716.3.579.2.6 27 1993 Unknown [id number] 2.16840.1.770974.3.579.2.6 27 1993 Unknown [id number] 2.16840.1.312292.3.579.2.6 27 1993 Unknown [id number] 2840.1.765799.3.579.2.6 27 1993 Unknown [id number] 2.16840.1.846617.3.579.2.7 32 1993 Unknown [id number] 2.16.840.1.751201.3.579.2.7 32 1993 Unknown [id number] 2.16840.1.869018.3.579.2.1 82 1993 Unknown [id number] 2.16840.1.053955.3.579.2.1 82 1993 Unknown [id number] 2.16.840.1.306983.3.579.2.1 82 1993 Unknown [id number] 2.16.840.1.284624.3.579.2.1 82 1993 Unknown [id number] 2.16.840.1.010655.3.579.2.1 82 1993 Unknown [id number] 2.16.840.1.415184.3.579.2.1 82 1993 Unknown [id number] 2.16.840.1.871543.3.579.2.1 82 1993 Unknown [id number] 2.16.840.1.792902.3.579.2.6 27 1993 Unknown [id number] 2.16.840.1.792246.3.579.2.6 27 1993 Unknown [id number] 2.16.840.1.868888.3.579.2.6 27 1993 Unknown [id number] 2.16.840.1.386753.3.579.2.6 27 1993 Unknown [id number] 2.16.840.1.411391.3.579.2.6 27 1993 Unknown [id number] 2.16.840.1.051660.3.579.2.6 27 1993 Unknown [id number] 2.16.840.1.561074.3.579.2.6 27 1993 Unknown [id number] 2.16.840.1.062967.3.579.2.6 27 1993 Unknown [id number] 2.16.840.1.597144.3.579.2.6 27 1993 Unknown [id number] 2.16.840.1.674396.3.579.2.6 27 1993 Unknown [id number] 2.16.840.1.607733.3.579.2.6 27 1993 Unknown [id number] 2.16.840.1.631434.3.579.2.6 27 1993 Unknown [id number] 2.16.840.1.427516.3.579.2.5 98 1993 Unknown [id number] 2.16.840.1.457655.3.579.2.5 98 1993 Unknown [id number] 2.16.840.1.058349.3.579.2.5 98 1993 Unknown [id number] 2.16.840.1.211588.3.579.2.5 98 1993 Unknown [id number] 2.16.840.1.396316.3.579.2.5 98 1993 Unknown [id number] 2.16.840.1.875802.3.579.2.5 98 1993 Unknown [id number] 2.16.840.1.039032.3.579.2.5 98 1993 Unknown [id number] 2.16.840.1.928191.3.579.2.5 98 1993 Unknown [id number] 2.16.840.1.326001.3.579.2.5 98 1993 Unknown [id number] 2.16.840.1.529541.3.579.2.5 98 1993 Unknown [id number] 2.16.840.1.260912.3.579.2.5 98 1993 Unknown [id number] 2.16.840.1.387429.3.579.2.6 27 1959 Medicaid [id number] 1959 Unknown [id number] Unknown [id number] 2.16.840.1.832162.3.579.2.4 62 Unknown [id number] 2.16.840.1.355657.3.579.2.4 62 Unknown [id number] 2.16.840.1.684946.3.579.2.4 62 Unknown [id number] 2.16.840.1.159247.3.579.2.4 62 Unknown [id number] 2.16.840.1.381507.3.579.2.4 62 Unknown [id number] 2.16.840.1.700924.3.579.2.4 62 Unknown [id number] 2.16.840.1.580786.3.579.2.4 62 Unknown [id number] 2.16.840.1.429167.3.579.2.4 62 Unknown [id number] 2.16.840.1.455473.3.579.2.4 62 Unknown [id number] 2.16.840.1.983740.3.579.2.4 62 Unknown [id number] 2.16.840.1.444592.3.579.2.4 62 Unknown [id number] 2.16.840.1.309791.3.579.2.4 62 Unknown [id number] 2.16.840.1.784648.3.579.2.4 62 Unknown [id number] 2.16.840.1.419808.3.579.2.4 62 Unknown [id number] 2.16.840.1.271811.3.579.2.4 62 Unknown [id number] 2.16.840.1.012411.3.579.2.4 62 Unknown [id number] 2.16.840.1.367130.3.579.2.4 62 Unknown [id number] 2.16.840.1.138072.3.579.2.4 62 Unknown [id number] 2.16.840.1.049925.3.579.2.4 62 Unknown [id number] 2.16.840.1.212280.3.579.2.4 62 Social History Date Type Detail Facility Start: 05-27-2019 End: 09-23-2024 Tobacco smoking status NHIS Current every day smoker [facility] History of tobacco use Cigarette Smoker [facility] Start: 05-27-2019 End: 11-21-2024 Cigarettes smoked current (pack per day) - Reported [facility] Start: 05-22-2019 End: 05-27-2019 Alcohol intake Current drinker of alcohol (finding) [facility] Start: 1995 Sex Assigned At Not on file [place], [place] Tobacco Nicotine Use: 1 pack daily. [facility] Tobacco smoking consumption unknown (finding) [facility] Sex Assigned At [facility] Start: 04-07-2021 Heavy tobacco smoker (finding) [facility] Start: 04-19-2021 End: 02-11-2022 Light tobacco smoker (finding) [facility] Start: 05-06-2021 End: 05-13-2024 Alcohol intake Current non-drinker of alcohol (finding) [facility] Start: 05-11-2020 History SDOH Physica l Activity DPW [address] [facility] Start: 05-11-2020 History SDOH Stress 1 [facility] Start: 09-05-2006 Tobacco Comment some people sm amber outside in foster home [facility] Start: 1995 Sex Assigned At Female C [facility] Start: 05-16-2021 End: 06-15-2022 Exposure to SARS-CoV-2 (event) Not sure [facility] Start: 09-13-2021 End: 11-10-2022 Exposure to SARS-CoV-2 (event) Unable to assess [facility] Start: 10-25-2021 End: 09-23-2024 Tobacco use and exposure Smokeless tobacco non-user [facility] Start: 03-08-2022 End: 11-21-2024 Alcohol intake Ex-drinker (finding) [facility] Start: 03-08-2022 End: 11-21-2024 Gender identity Not on file [facility] In a typical week, h ow many times do you talk on the telephone with family, friends, or neighbors? Patient refused [facility] Are you now , , , , never or living with a partner? Refused [facility] Do you feel stress - tense, restless, nervous, or anxious, or unable to sleep at night because your mind is troubled all the time - these days [OSQ] Not at all [facility] The food that (I/we) bought just didn't last, and (I/we) didn't have money to get more. DK or Refused [facility] Start: 05-10-2020 Gender identity Identifies as female gender (finding) [facility] Start: 05-10-2020 Sexual orientation Heterosexual (marbella childers) [facility] Start: 11-08-2022 Tobacco Comment vape [facility] Start: 04-21-2005 End: 10-11-2021 Sex Female (finding) [facility] Medical Equipment Procedure Code Equipment Code Equipment Origin al Text Equipment Identifier Dates Suboxone 8 mg-2 mg sublingual film Start: 08-29-2019 Suboxone 8 mg-2 mg sublingual film Start: 08-29-2019 Functional Status Date Assessment Result Facility 10-13-2014 Are you deaf, or do you have serious difficulty hearing No 10/13/2014 3:27 PM ROCAELT Micaela Orozco MA No [facility] 10-13-2014 Are you blind, or do you have serious difficulty seeing, even when wearing glasses No 10/13/2014 3:27 PM Micaela Mark MA No [facility] 10-13-2014 Do you have serious difficulty walking or climbing stairs No 10/13/2014 3:27 PM Micaela Mark MA No [facility] 10-13-2014 Do you have difficul ty dressing or bathing No 10/13/2014 3:27 PM Micaela Mark MA No [facility] 10-13-2014 Because of a physica l, mental, or emotional condition, do you have difficulty doing errands alone such as visiting a physician's office or shopping No 10/13/2014 3:27 PM Micaela Mark MA No [facility] Mental Status Date Assessment Result Facility 10-13-2014 Because of a physica l, mental, or emotional condition, do you have serious difficulty concentrating, remembering, or making decisions No 10/13/2014 3:27 PM EDT Micaela Orozco MA No [facility] Clinical Notes 04-06-2017 to 12-04-2024 LaboratoryTelephone Encounter - Yumiko Encarnacion RN - 05/15/2024 12:36 PM ESTTelephone Encounter - Yumiko Encarnacion RN - 05/15/2024 12:36 PM Ramona Baltazar APRN.JOSE GUADALUPE - 05/13/2024 11:30 AM EST Note Date & Type Note Facility 12-04-2024 Evaluation + Plan note Diagnostic Tests PendingVitamin B1 (Thiamine), Blood 12/04/24Vitamin B6, Plasma 12/04/24Zinc, Plasma or Serum 12/04/24Lipoprotein (a) 12/04/24ANA by IFA Screen 12/04/24Free and Total Insulin 12/04/24Rheumatoid Factor (RF) 12/04/24Circulating Anticoagulants - Panel 12/04/24 Future Scheduled TestsProtein Electrophoresis Urine 11/25/24Ratio Prot/Creat Urine 11/25/24 [facility] 10-01-2024 Note [facility] Medical Records Department [address] [place] [address] History Physical Exam 10/01/24 1455 MR#: [id number] Acct: [id number] Name: MARIA T WYNNE Rep #: [id number] : 1995 29 From: Mike Friend DO PCP: Dr. Michele Bell, DO Status:REG [facility] Location: [place] [address] HPI - General General Date of Admission: 10/01/24 Date of Service: 10/01/24 Chief Complaint: Constipation HPI Narrative MARIA T WYNNE, is a 29 F who presents with the Chief Complaint: constipation OV 05/22/2024 29y/o female presents for one month follow-up of CIC, MASLD, GERD, dysphagia and h/o HCV. She was last seen in the office 04/24/2024 with continued complaints of abdominal distension, pain, constipation and difficulty with fecal evacuation. Despite taking Ibsrela BID she is continuing to experience difficulty with evacuation. She reports having urge to defecate and straining with BM. Lactulose was added PRN. Sitz marker study suggests delayed colonic transit time, especially in the left colon, but normal overall transit time since all markers passed by day 5. The significant stool burden suggests constipation, which could be contributing to the slowed transit in the left colon. ARM was also abnormal and I have recommended she complete PTFT and biofeedback. She continues to complain of abdominal bloating, distension, constipation and regurgitation. She is on Tizepitide; however, her symptoms have been ongoing for many years with multiple failed colonoscopies due to failed bowel prep. She has failed Linzess, Amitiza and Trulance in the past. She is presently taking Lactulose and Miralax PRN in addition to Ibsrela BID. She will complete CT as ordered and follow-up with Urogynecology. I have ordered labs and provided her a referral to Nutrition services. She will schedule colonoscopy with modified bowel prep. Patient Instructions: Resume Ibsrela twice a day Continue to use Lactulose and Miralax as needed Follow-up with PFPT Follow-up with Urogynecology Consult with Nutrition Complete CT scan as scheduled BOWEL PREP 1. Metoclopramide 10mg three times a day starting 4 days prior to colonoscopy and continue three times a day until day of procedure DO NOT TAKE HYDROXYZINE WHILE YOU ARE TAKING METOCLOPRAMIDE - YOU CAN RESUME AFTER THE COLONOSCOPY 2. 3 days prior to Colonoscopy start a clear liquid diet and take 3. 2 days prior to Colonoscopy continue clear liquid diet and take SuTAB 4. 1 day prior to Colonoscopy continue clear liquids and take GoLytely (this was sent to your pharmacy) 5. Day of procedure - take remaining doses of GoLyte and check in for procedure as instructed 6. Ondansetron (anti-nausea) medication has been sent to your pharmacy - the Ibsrela has helped, reports when she stops she becomes more constipated - she reports when she continues to take Ibsrela BID she becomes immune to it and has to take Lactulose and then has incontinence - she finds herself taking Lactulose 1-2x a week - feels a sensation of a "stopper" preventing her from going - c/o terrible bloating, abdominal distension and pain - she is weaning of Tirzepatide - has been on this for a year - ARM was abnormal - she reports PFPT has been beneficial in helping her maintain but not improving anything - she is attending - bloating has been an issue for many years - nausea, denies any emesis [facility] Medical History Wears contact lenses Wears glasses Loose, teeth Thyroid disease Arthritis High cholesterol Restless legs Injury of back History of IBS Smoker TMJ syndrome Rectal bleeding Insulin resistance Insomnia Subclinical hypothyroidism Substance abuse GERD (gastroesophageal reflux disease) Hepatitis Migraines Fibromyalgia Low potassium syndrome Vitamin deficiency Carpal tunnel syndrome Seasonal allergies Home Medications ???Medication ???Instructions ???Recorded ???Last Taken ???Type buprenorphine 2.9 mg-naloxone 0.71 2 tab sublingual QDAY 03/26/24 0 10/01/24 History mg sublingual tablet cholecalciferol (vitamin D3) 50 50 mcg PO QDAY 03/26/24 07/08/24 H istory mcg (2,000 unit) capsule clonidine HCl 0.1 mg tablet 0.1 mg PO QHS 03/26/24 07/07/24 Hi story ezetimibe 10 mg tablet 10 mg PO QDAY 03/26/24 07/08/24 Hi story hydrochlorothiazide 25 mg tablet 50 mg PO BID 03/26/24 07/08/24 His tory hydroxyzine HCl 50 mg tablet 100 mg PO QHS 03/26/24 07/07/24 Hi story methocarbamol 750 mg tablet 750 mg PO TID 03/26/24 10/01/24 Hi story pregabalin 300 mg capsule 300 mg PO QHS 03/26/24 07/07/24 Hi story omeprazole 40 mg capsule,delayed 40 mg PO BID #180 caps 03/27/24 Rx release lactulose 10 gram/15 mL oral 30 g (45 mL) PO TID constipation 0 04/24/24 Unknown R (more content not included)... [facility] 05-15-2024 Telephone encounter Note Patient notified and voiced understanding of results. Yumiko Encarnacion RN [facility] 05-15-2024 Miscellaneous Notes Patient notified and voiced understanding of results. Yumiko Encarnacion RN BV negative. Ramona Slade APRN.CNP Left message to call office. Yumiko Encarnacion RN +yeast- Diflucan sent, still waiting on BV results. Ramona Slade APRN.CNP documented in this encounter [facility] 05-14-2024 Telephone encounter Note BV negative. Ramona Slade APRN.CNP [facility] 05-14-2024 Telephone encounter Note Left message to call office. Yumiko Encarnacion RN [facility] 05-14-2024 Telephone encounter Note +yeast- Diflucan sent, still waiting on BV results. Ramona Slade APRN.CNP 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 Maria T is a 29 year old who presents for an annual gynecologic exam without complaints. LMP: none Menses: none Sexually active: Yes Contraception: Pill HPV vaccine: Yes HPV: negative Last pap smear: 03/15/2022, negative History of abnormal pap: No Last mammogram: 2021normal Patient concerns for STD exposure: No. 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 History Comments: Sexual Activity: Yes; Male Contraception: Pill PAST MEDICAL HISTORY Diagnosis Date Anxiety 10/23/2014 Bilateral ovarian cysts Bipolar affective disorder (HCC) 12/16/2014 Patient has refused returning to [facility] Bipolar I disorder, most recent episode (or current) manic, severe, specified as with psychotic behavior 03/13/2008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 months. At this visit, patient does not feel like her skin has improved from accutane. So it was decided between patient and myself to stop accutane at this point since patient isn't seeing any results. 08/16/23 patient messages office stating that she actually wants to finish 5 month course of accutane and changes her mind Due to [facility] rules and regulations patient had to repeat 2 negative tests 30 days apart. 11/15/2023: patient re-started isotretinoin and her 5th month of prescription was sent in. Due to non-compliance and missed window, patient script was not picked up until mid December. During today's visit 01/22/24, Patient states she has lied at all the previous office visits and never took her isotretinoin pills. She states that this previous month is actually the first month she has taken accutane. Patient also questions partner in the office asking how many has he taken. This repetitive behavior of non-compliance does not allow me, as the provider, to follow patient appropriately on this medicine, nor trust patient. Patient has breached the provider - patient relationship through dishonesty and lack of medication compliance. Patient is a liability with this medication. She claims to have a 2 month stash at home since she states she never "took the medicine". Accutane is a strictly controlled and regulated medication at the federal level, due to the possible detrimental effects if exposed to a fetus. Patient has signed [facility] paperwork and has failed to abide by their rules and regulations. The patient revealed she didn't actually take the medicine despite coming to her follow up appointments, and at each visit, stated she was taking it (see previous OV notes). This is in violation of our agreement, which constitutes breach of the patient-provider relationship. Her not taking medication as agreed upon opens us to unacceptable liability because we are not able to monitor her taking medicine as necessary. In lieu of all this, additionally, patient has been rude and disrespectful to multiple staff members. She is manipulative and argumentative to my clinical staff and myself. Therefore, after speaking with Dr. Hanley after the patient visit, it is unsafe for me and other providers at [facility] to continue treating this patient with accutane who has blatantly disregarded all precautions and having admits to being dishonest. Patient has been discontinued in [facility] today 01/23/24, and her script was cancelled. Will discuss with Dr. Hanley and optometrist president/practice owner, Susie Simon, on next steps moving forward. Will be discuss with legal department as well requesting for patient dismissal from the practice. Related Medications drospirenone-ethinyl estradiol (ALETHA) 3-0.02 MG tablet Take 1 tablet by mouth daily. 2. Encounter for long-term (current) use of high-risk medication Related Procedures hCG, urine, qualitative POCT , urine manually resulted No follow-ups on file. Marie Larios PA-C 01/23/24 4:47 PM documented in this encounter [facility] 01-22-2024 Instructions Marie Larios PA-C - 01/22/2024 10:00 AM EST documented in this encounter [facility] 01-22-2024 Instructions Marie Larios PA-C - 01/22/2024 10:00 AM EST documented in this encounter [facility] 01-22-2024 Miscellaneous Notes Addended by: MARIE LARIOS on: 01/23/2024 09:45 AM Modules accepted: Orders documented in this encounter [facility] 01-22-2024 Note Addended by: MARIE LARIOS on: 01/23/2024 09:45 AM Modules accepted: Orders [facility] 01-22-2024 Note Addended by: MARIE LARIOS on: 01/23/2024 09:45 AM Modules accepted: Orders [facility] 01-22-2024 Note Addended by: MARIE LARIOS on: 01/23/2024 09:45 AM Modules accepted: Orders [facility] 01-22-2024 Note Addended by: MARIE LARIOS on: 01/23/2024 09:45 AM Modules accepted: Orders [facility] 12-29-2023 Telephone encounter Note Spoke to community health representative. Answered all questions and message given that Dr. Vergara is aware and that this Rx is strictly for post op pain. Danita Lazcano RN [facility] 12-29-2023 Miscellaneous Notes Spoke to community health representative. Answered all questions and message given that Dr. Vergara is aware and that this Rx is strictly for post op pain. Danita Lazcano, RN Dr Vergara is aware. This was for use during her postop period after surgery. Aline Wen APRN.JOSE GUADALUPE Patient comment: Wendi calling from [place] Dept of medicaid drug utilization, needing to verify medication use. Pt has an opioid use disorder so they need to make sure Dr Vergara is aware. [phone] REF [id number] ----- ASSESSMENT (N94.5) Secondary dysmenorrhea (primary encounter diagnosis) (R10.2, G89.29) Chronic pelvic pain in female (Z51.81, Z79.899) Encounter for monitoring Suboxone maintenance therapy PLAN 1. Preoperative counseling Patient counseled on options including watchful waiting, medications, and physical therapy and she elects to proceed with the above procedure. Consent discussed in detail with patient today and signature obtained. She confirmed understanding and all questions were answered to her stated satisfaction. Patient was counseled on the risks of the general risks of the procedure including but not limited to: hemorrhage that may require blood transfusion with the associated risk of viral transmission of Hepatitis B 1/300,000, Hepatitis C 1 in 1.5 million, and HIV 1/2 million ([place] 2021) infection that could require oral or IV antibiotics and/or readmission to the hospital damage to adjacent structures including but not limited to: bladder, bowels, ureters (tubes that connect kidneys to bladder), pelvic organs (ovaries, fallopian tubes, uterus or womb), blood vessels with the possibility of re-operation. damage to nerves that may cause bladder/bowel dysfunction or sexual dysfunction venous thrombosis/pulmonary embolism (blood clots to the legs or lungs) anesthesia complications including cardiopulmonary complications (problems with heart of lungs) fatal complications resulting in failure of the procedure to fix problem and recurrence of problem. She would accept a blood transfusion if medically necessary. She has not had a blood transfusion in the past. Patient was counseled that although the goal of this procedure is to improve her pain, there is no guarantee that pain will improve and there is also a chance it could worsen pain. Patient is agreeable to a pelvic exam by myself and no more than 2 trainees while under anesthesia. Patient does asher permission for surgical images and/or surgical video footage to be recorded for medical educational purposes. She was counseled that privacy will be maintained with footage including only non-identifiable images and all images and video recordings will be de-identified prior to educational use. Pre-op She has comorbid medical conditions. She was not advised to obtain medical clearance prior to surgery. She was not given instructions to complete a bowel prep the day before surgery. Her resuscitative status is full code. Medications reconciled at today's visit. Pre-op labs: per anesthesia She will have preop teaching with the RN Will get updated pelvic ultrasound Ines-op Instructed to be NPO 2 hours prior to surgery, no solids 8 hours preop. Antibiotics: per SCIP guidelines: Not indicated DVT prophylaxis: SCD's Request TAP block Post-op Plan for discharge home on day of surgery. Post-op expectations and instructions discussed. All questions answered. Discussed postoperative pain management issues given Zubsolv. Patient not interested in weaning in anticipation of surgery due to risk of withdrawal. Has used Ultram in the past for procedure related pain while on Zubsolv and tolerated well. Discussed also temporarily increasing her Lyrica from 100 TID to 150mg TID for a week perioperatively. Patient will schedule post operative exam 2 & 6 weeks after procedure. Patient verbalized understanding of the plan of care and all questions were answered to her stated satisfaction. MD Maria T Contreras was seen today for pre-op visit. Diagnoses and all orders for this visit: Secondary dysmenorrhea - US FEMALE PELVIS TRANSVAG; Future Chronic pelvic pain in female - traMADol 100 mg tablet; Take 1 tablet by mouth every 6 hours as needed for pain for up to 29 days. For postoperative pain Patient should start on November 22, 2023. - pregabalin (LYRICA) 50 mg capsule; Add 1 tablet to usual 100mg dose TID x7 days postoperatively Encounter for monitoring Suboxone maintenance therapy Acute postoperative pain - traMADol 100 mg tablet; Take 1 tablet by mouth every 6 hours as needed for pain for up to 29 days. For postoperative pain Patient should start on November 22, 2023. - pregabalin (LYRICA) 50 mg capsule; Add 1 tablet to usual 100mg dose TID x7 days postoperatively Buprenorphine dependence (HCC) - traMADol 100 mg tablet; Take 1 tablet by mouth every 6 hours as needed for pain for up to 29 days. For postoperative pain Patient should start on November 22, 2023. - pregabalin (LYRICA) 50 mg capsule; Add 1 tablet to usual 100mg dose TID x7 days postoperatively Other orders - acetaminophen (TYLENOL) 500 mg tablet; Take 1 tablet by mouth every 6 hours. May change to as needed when pain manageable - ibuprofen (MOTRIN) 600 mg tablet; Take 1 tablet by mouth every 6 hours. May change to as needed when pain manageable - ondansetron orally disintegrating (ZOFRAN ODT) 4 mg disintegrating tablet; Take 1 tablet by mouth every 8 hours as needed (postoperative nausea/vomiting). - Senna 8.6 mg tab; Take 1 tablet by mouth once daily for 10 days. To avoid postoperative constipation Evelyn Rivero RN December 28, 2023 2:29 PM Patient: Maria T Wynne : 1995 Provider: Meme Vergara MD Caller Phone #: [phone] [facility] Reason for call[facility] needing to [facility] medication use. Pt has an opioid use disorder so they need to make sure Dr Vergara is aware. [phone] REF [id number] Message routed to nurse triage Date of next visit: Appointments for Next 60 Days Date Time Provider Location Dept Phone 01/08/2024 1:00 PM MEME [place] [facility] [phone] documented in this encounter [facility] 12-29-[address] Vergara is aware. This was for use during her postop period after surgery. Aline Wen APRN.CNP [facility] 12-28-2023 Telephone encounter Note Patient comment: Wendi calling from [place] Dept of medicaid drug utilization, needing to verify medication use. Pt has an opioid use disorder so they need to make sure Dr Vergara is aware. [phone] REF [id number] ----- ASSESSMENT (N94.5) Secondary dysmenorrhea (primary encounter diagnosis) (R10.2, G89.29) Chronic pelvic pain in female (Z51.81, Z79.899) Encounter for monitoring Suboxone maintenance therapy PLAN 1. Preoperative counseling Patient counseled on options including watchful waiting, medications, and physical therapy and she elects to proceed with the above procedure. Consent discussed in detail with patient today and signature obtained. She confirmed understanding and all questions were answered to her stated satisfaction. Patient was counseled on the risks of the general risks of the procedure including but not limited to: hemorrhage that may require blood transfusion with the associated risk of viral transmission of Hepatitis B 1/300,000, Hepatitis C 1 in 1.5 million, and HIV 1/2 million ([place] 2021) infection that could require oral or IV antibiotics and/or readmission to the hospital damage to adjacent structures including but not limited to: bladder, bowels, ureters (tubes that connect kidneys to bladder), pelvic organs (ovaries, fallopian tubes, uterus or womb), blood vessels with the possibility of re-operation. damage to nerves that may cause bladder/bowel dysfunction or sexual dysfunction venous thrombosis/pulmonary embolism (blood clots to the legs or lungs) anesthesia complications including cardiopulmonary complications (problems with heart of lungs) fatal complications resulting in failure of the procedure to fix problem and recurrence of problem. She would accept a blood transfusion if medically necessary. She has not had a blood transfusion in the past. Patient was counseled that although the goal of this procedure is to improve her pain, there is no guarantee that pain will improve and there is also a chance it could worsen pain. Patient is agreeable to a pelvic exam by myself and no more than 2 trainees while under anesthesia. Patient does asher permission for surgical images and/or surgical video footage to be recorded for medical educational purposes. She was counseled that privacy will be maintained with footage including only non-identifiable images and all images and video recordings will be de-identified prior to educational use. Pre-op She has comorbid medical conditions. She was not advised to obtain medical clearance prior to surgery. She was not given instructions to complete a bowel prep the day before surgery. Her resuscitative status is full code. Medications reconciled at today's visit. Pre-op labs: per anesthesia She will have preop teaching with the RN Will get updated pelvic ultrasound Ines-op Instructed to be NPO 2 hours prior to surgery, no solids 8 hours preop. Antibiotics: per SCIP guidelines: Not indicated DVT prophylaxis: SCD's Request TAP block Post-op Plan for discharge home on day of surgery. Post-op expectations and instructions discussed. All questions answered. Discussed postoperative pain management issues given Zubsolv. Patient not interested in weaning in anticipation of surgery due to risk of withdrawal. Has used Ultram in the past for procedure related pain while on Zubsolv and tolerated well. Discussed also temporarily increasing her Lyrica from 100 TID to 150mg TID for a week perioperatively. Patient will schedule post operative exam 2 & 6 weeks after procedure. Patient verbalized understanding of the plan of care and all questions were answered to her stated satisfaction. MD Maria T Contreras was seen today for pre-op visit. Diagnoses and all orders for this visit: Secondary dysmenorrhea - US FEMALE PELVIS TRANSVAG; Future Chronic pelvic pain in female - traMADol 100 mg tablet; Take 1 tablet by mouth every 6 hours as needed for pain for up to 29 days. For postoperative pain Patient should start on November 22, 2023. - pregabalin (LYRICA) 50 mg capsule; Add 1 tablet to usual 100mg dose TID x7 days postoperatively Encounter for monitoring Suboxone maintenance therapy Acute postoperative pain - traMADol 100 mg tablet; Take 1 tablet by mouth every 6 hours as needed for pain for up to 29 days. For postoperative pain Patient should start on November 22, 2023. - pregabalin (LYRICA) 50 mg capsule; Add 1 tablet to usual 100mg dose TID x7 days postoperatively Buprenorphine dependence (HCC) - traMADol 100 mg tablet; Take 1 tablet by mouth every 6 hours as needed for pain for up to 29 days. For postoperative pain Patient should start on November 22, 2023. - pregabalin (LYRICA) 50 mg capsule; Add 1 tablet to usual 100mg dose TID x7 days postoperatively Other orders - acetaminophen (TYLENOL) 500 mg tablet; Take 1 tablet by mouth every 6 hours. May change to as needed when pain manageable - ibuprofen (MOTRIN) 600 mg tablet; Take 1 tablet by mouth every 6 hours. May change to as needed when pain manageable - ondansetron orally disintegrating (ZOFRAN ODT) 4 mg disintegrating tablet; Take 1 tablet by mouth every 8 hours as needed (postoperative nausea/vomiting). - Senna 8.6 mg tab; Take 1 tablet by mouth once daily for 10 days. To avoid postoperative constipation Evelyn Rivero RN December 28, 2023 2:29 PM T [facility] 12-28-2023 Telephone encounter Note Patient: Maria T Wynne : 1995 Provider: Meme Vergara MD Caller Phone #: [phone] [facility] Reason for call: [facility], needing to verify medication use. Pt has an opioid use disorder so they need to make sure Dr Vergara is aware. [phone] REF [id number] Message routed to nurse triage Date of next visit: Appointments for Next 60 Days Date Time Provider Location Dept Phone 01/08/2024 1:00 PM MEME VERGARA [facility] [phone] [facility] 12-07-2023 Telephone encounter Note Spoke to patient. Pt advised of the below. [facility] 12-07-2023 Miscellaneous Notes Spoke to patient. Pt advised of the below. Attempted to contact pt. Left voicemail advising of HCG result and iPledge confirmation. Advised pt that she has through December 11 to answer her questions on iPledge and roller picker her prescription. [employer] message sent to patient as well. Addended by: ROSIE VUONG on: 12/07/2023 09:28 AM Modules accepted: Orders test reviewed. New script sent. Please confirm. Spoke to patient. Patient was notified via voicemail on 11/17/23 that she is confirmed in iPledge and has until 11/23/23 to roller picker her medication. Pt states she never received a voicemail. Pt states that she has memory issues and would like to make a request that staff reach out to her numerous times until they speak with her directly. Pt advised that she will have to wait 19 days after her first test to retake the test and restart the window for picking up her medication. Pt advised the soonest she can retake the test is 12/06/23. Pt gets her labs done through [facility], advised pt that we will mail her lab order today and that she should be able to print it from [employer] as well. Copy of lab order mailed to patient's home today. Patient states she cannot remember if she was called back after her last test to discuss her IPledge. She would like a call back to discuss. Thank you. documented in this encounter [facility] [employer] 12-07-2023 Telephone encounter Note Attempted to contact pt. Left voicemail advising of HCG result and iPledge confirmation. Advised pt that she has through December 11 to answer her questions on iPledge and roller picker her prescription. [employer] message sent to patient as well. [facility] [employer] 12-07-2023 Note Addended by: Ilia VUONG on: 12/07/2023 09:28 AM Modules accepted: Orders [facility] 12-07-2023 Note Addended by: Ilia VUONG on: 12/07/2023 09:28 AM Modules accepted: Orders [facility] 12-07-2023 Note Addended by: Ilia VUONG on: 12/07/2023 09:28 AM Modules accepted: Orders [facility] [employer] 12-07-2023 Note Addended by: Ilia VUONG on: 12/07/2023 09:28 AM Modules accepted: Orders [facility] 12-07-2023 Note Addended by: Ilia VUONG on: 12/07/2023 09:28 AM Modules accepted: Orders [facility] 12-07-2023 Telephone encounter Note test reviewed. New script sent. Please confirm. T [facility] 11-27-2023 Telephone encounter Note Spoke to patient. Patient was notified via voicemail on 11/17/23 that she is confirmed in iPledge and has until 11/23/23 to roller picker her medication. Pt states she never received a voicemail. Pt states that she has memory issues and would like to make a request that staff reach out to her numerous times until they speak with her directly. Pt advised that she will have to wait 19 days after her first test to retake the test and restart the window for picking up her medication. Pt advised the soonest she can retake the test is 12/06/23. Pt gets her labs done through [facility], advised pt that we will mail her lab order today and that she should be able to print it from [employer] as well. Copy of lab order mailed to patient's home today. T [facility] 11-27-2023 Telephone encounter Note Patient states she cannot remember if she was called back after her last test to discuss her IPledge. She would like a call back to discuss. Thank you. [facility] 11-24-2023 Telephone encounter Note Images from the original note were not included. [facility] SECTION FOR MINIMALLY INVASIVE GYNECOLOGIC SURGERY AND CHRONIC PELVIC PAIN Postop call Left patient a voice message POD# NUMBERS 1-12: [address] Vergara. Procedure: (from op note) LAPAROSCOPY FULGURATION OR EXCISION OF LESIONS OF THE OVARY PELVIC VISCERA OR PERITONEAL SURFACE BY ANY METHOD, LAPAROSCOPIC APPENDECTOMY ADULT (Right) [facility] 11-24-2023 Miscellaneous Notes Images from the original note were not included. [facility] SECTION FOR MINIMALLY INVASIVE GYNECOLOGIC SURGERY AND CHRONIC PELVIC PAIN Postop call Left patient a voice message POD# NUMBERS 1-12: [address] Vergara. Procedure: (from op note) LAPAROSCOPY FULGURATION OR EXCISION OF LESIONS OF THE OVARY PELVIC VISCERA OR PERITONEAL SURFACE BY ANY METHOD, LAPAROSCOPIC APPENDECTOMY ADULT (Right) documented in this encounter [facility] 11-23-2023 Note HNO ID: [id number] Author: MIRTA FLETCHER MD Service: Anesthesiology Author Type: Anesthesiologist Type: Anesthesia Procedure Notes Filed: 11/23/2023 12:39 Note Text: ANESTHESIOLOGY PROCEDURE NOTE Peripheral Nerve Block General Information Procedure Start Time/Medication Administration: 11/23/2023 12:27 PM Procedure End time: 11/23/2023 12:34 PM Patient location during procedure: pre-op Timeout Performed Pre-procedure: timeout performed Consent Obtained: Yes Patient identity confirmed: arm band and patient Reason for block: post-op pain management/at surgeon's request Staffing Anesthesiologist: Mirta Fletcher MD Performed by: anesthesiologist Preparation Sterility Preparation: hand hygiene performed prior to procedure, sterile gloves, drapes, and procedure tray, surgical cap used, mask used, sterile drape used during line insertion, skin prep agent completely dried prior to procedure Site Prep: Chloraprep Pre-Procedure Neuro Exam Location: ABDOMEN Sensory: intact Motor: intact Procedure Details Patient Position: supine Monitoring: NIBP, EKG and Pulse OX Block Type Trunk: TAP block Approach: lateral Laterality: bilateral Injection Technique: single-shot Ultrasound Guided: Yes Image in Chart: yes Local Infiltration: Yes Needle Needle Type: blunt and echogenic Needle Gauge: 21 G Needle Length: 100 mm Needle Localization: ultrasound Assessment Injection assessment: negative aspiration, no paresthesia on injection, incremental injection and local visualized surrounding nerve on ultrasound Paresthesia: none Medications Administered bupivacaine (PF) 0.25 % (2.5 mg/mL) injection (SENSORCAINE MPF) - peripheral nerve block 15 mL - 11/23/2023 12:27:00 PM bupivacaine liposome (PF) 1.3 % (13.3 mg/mL) injection (EXPAREL) - INFILTRATION 133 mg - 11/23/2023 12:27:00 PM Comments Above amounts for each side SIGNATURE: Mirta Fletcher MD PATIENT NAME: Maria T Wynne DATE: November 23, 2023 TIME: 12:37 PM CSN: [id number] [facility] 11-23-2023 Note HNO ID: [id number] Author: MILA MARIE RN Service: Nursing Author Type: Registered Nurse Type: Nursing Progress Note Filed: 11/23/2023 12:35 Note Text: Patient tolerated the procedure very well [facility] 11-23-2023 Nurse Note Patient tolerated the procedure very well [facility] 11-23-2023 Nurse Note Patient tolerated the procedure very well B/L TAP Blocks with [employer] Dr. Antonette FIGUEROA Other: dr hardin aware pt states she cannot remove any piercings; ears, lip, nose, and chest, also aware pt on suboxone 1415 update given to boyfriend concerning time delay 1455 update given to pt and boyfriend concerning time of surgery, comfort measures offered, pt refused, pt considering cancelling due to time delay, report to de carmelita ocasio documented in this encounter [facility] 11-23-2023 Note HNO ID: [id number] Author: MILA MARIE RN Service: Nursing Author Type: Registered Nurse Type: Nursing Progress Note Filed: 11/23/2023 12:18 Note Text: B/L TAP Blocks with [employer] Dr. Antonette FIGUEROA [facility] 11-23-2023 Nurse Note B/L TAP Blocks with Exp[employer] Dr. Antonette FIGUEROA [facility] 11-23-2023 History and physical note Images from the original note were not included. [facility] SECTION FOR MINIMALLY INVASIVE GYNECOLOGIC SURGERY OUTPATIENT VISIT DATE 10/23/2023 OUTPATIENT VISIT TYPE HISTORY AND PHYSICAL Video Visit Patient location: Patient Home or Place of Residence Provider location: [facility] Facility Other participants in telemedicine encounter and roles: none Consent was obtained from the patient to complete this video visit; including the potential for financial liability and completion by telephone back up as necessary. CHIEF COMPLAINT Presurgical counseling HISTORY OF PRESENT ILLNESS Maria T Wynne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 blood transfusion if medically necessary. She has not had a blood transfusion in the past. Patient was counseled that although the goal of this procedure is to improve her pain, there is no guarantee that pain will improve and there is also a chance it could worsen pain. Patient is agreeable to a pelvic exam by myself and no more than 2 trainees while under anesthesia. Patient does asher permission for surgical images and/or surgical video footage to be recorded for medical educational purposes. She was counseled that privacy will be maintained with footage including only non-identifiable images and all images and video recordings will be de-identified prior to educational use. Pre-op She has comorbid medical conditions. She was not advised to obtain medical clearance prior to surgery. She was not given instructions to complete a bowel prep the day before surgery. Her resuscitative status is full code. Medications reconciled at today's visit. Pre-op labs: per anesthesia She will have preop teaching with the RN Will get updated pelvic ultrasound Ines-op Instructed to be NPO 2 hours prior to surgery, no solids 8 hours preop. Antibiotics: per SCIP guidelines: Not indicated DVT prophylaxis: SCD's Request TAP block Post-op Plan for discharge home on day of surgery. Post-op expectations and instructions discussed. All questions answered. Discussed postoperative pain management issues given Zubsolv. Patient not interested in weaning in anticipation of surgery due to risk of withdrawal. Has used Ultram in the past for procedure related pain while on Zubsolv and tolerated well. Discussed also temporarily increasing her Lyrica from 100 TID to 150mg TID for a week perioperatively. Patient will schedule post operative exam 2 & 6 weeks after procedure. Patient verbalized understanding of the plan of care and all questions were answered to her stated satisfaction. MD Maria T Contreras was seen today for pre-op visit. Diagnoses and all orders for this visit: Secondary dysmenorrhea - US FEMALE PELVIS TRANSVAG; Future Chronic pelvic pain in female - traMADol 100 mg tablet; Take 1 tablet by mouth every 6 hours as needed for pain for up to 29 days. For postoperative pain Patient should start on November 22, 2023. - pregabalin (LYRICA) 50 mg capsule; Add 1 tablet to usual 100mg dose TID x7 days postoperatively Encounter for monitoring Suboxone maintenance therapy Acute postoperative pain - traMADol 100 mg tablet; Take 1 tablet by mouth every 6 hours as needed for pain for up to 29 days. For postoperative pain Patient should start on November 22, 2023. - pregabalin (LYRICA) 50 mg capsule; Add 1 tablet to usual 100mg dose TID x7 days postoperatively Buprenorphine dependence (HCC) - traMADol 100 mg tablet; Take 1 tablet by mouth every 6 hours as needed for pain for up to 29 days. For postoperative pain Patient should start on November 22, 2023. - pregabalin (LYRICA) 50 mg capsule; Add 1 tablet to usual 100mg dose TID x7 days postoperatively Other orders - acetaminophen (TYLENOL) 500 mg tablet; Take 1 tablet by mouth every 6 hours. May change to as needed when pain manageable - ibuprofen (MOTRIN) 600 mg tablet; Take 1 tablet by mouth every 6 hours. May change to as needed when pain manageable - ondansetron orally disintegrating (ZOFRAN ODT) 4 mg disintegrating tablet; Take 1 tablet by mouth every 8 hours as needed (postoperative nausea/vomiting). - Senna 8.6 mg tab; Take 1 tablet by mouth once daily for 10 days. To avoid postoperative constipation UPDATED HISTORY AND PHYSICAL EXAMINATION SERVICE DATE: 11/23/2023 SERVICE TIME: 11:35 AM PHYSICAL EXAM MUST BE COMPLETED ON ADMISSION The History and Physical (completed in the past 30 days) has been reviewed and the patient has been examined. The contents accurately reflect the patient's condition with the following additions or revisions since the H&P was completed. Day of Surgery/Procedure Update: History History reviewed and no change. Wasn't able to get full script of tramadol. Patient has concern about her teeth and her piercings and not being guaranteed that there won't be damage. Has dermal piercings and other piercings that won't come out. Physical Examination indicates no changes. Heart: RRR Lungs: CTAB UPT neg II. Procedure Readiness Met with patient and significant other. I have reviewed the patient's H&P with her. We reviewed the goals of the procedure as well as the risks related to this procedure again today including but not limited to risk of bleeding which may require transfusion, infection requiring antibiotics or drainage, injury to nearby organs requiring repair, need to manage unexpected pathology, DVT/PE, risks to anesthesia, and . All questions were answered to her stated satisfaction. At the end of our discussion, patient verbalized understanding of our discussion, reassurance of the plan, desires to proceed. By completing and signing this form, I attest that this patient is ready for surgery/procedure. Confirmed she picked up Lyrica, pharmacy will fill tramadol today. III. Attestation I have reviewed the updated information regarding the patient's condition and it is appropriate to proceed with the planned surgery/procedure. This H&P can be found above. SIGNATURE: Meme Vergara MD PATIENT NAME: Maria T Wynne DATE: November 23, 2023 TIME: 11:35 AM documented in this encounter [facility] 11-23-2023 Nurse Note Other: dr hardin aware pt states she cannot remove any piercings; ears, lip, nose, and chest, also aware pt on suboxone 1415 update given to boyfriend concerning time delay 1455 update given to pt and boyfriend concerning time of surgery, comfort measures offered, pt refused, pt considering cancelling due to time delay, report to me carmelita rn [facility] 11-17-2023 Note Confirm Patient Coun seling is Complete. The patient's REMS Status is Required to Demonstrate Comprehension. The patient must answer their Comprehension questions, and then may have their prescription filled before 11:59 PM Eastern Time on 11/23/2023. Called and LMOM for pt letting her know of negative test. Let her know she can log onto [employer] and answer her ?'s and everything needs to be done in the system and Rx picked up by 11/23/23. Pt to call back with any further questions or concerns. [facility] 11-17-2023 Telephone encounter Note Confirm Patient Counseling is Complete. The patient's REMS Status is Required to Demonstrate Comprehension. The patient must answer their Comprehension questions, and then may have their prescription filled before 11:59 PM Eastern Time on 11/23/2023. Called and LMOM for pt letting her know of negative test. Let her know she can log onto [employer] and answer her ?'s and everything needs to be done in the system and Rx picked up by 11/23/23. Pt to call back with any further questions or concerns. [facility] 11-17-2023 Miscellaneous Notes Confirm Patient Counseling is Complete. The patient's REMS Status is Required to Demonstrate Comprehension. The patient must answer their Comprehension questions, and then may have their prescription filled before 11:59 PM Eastern Time on 11/23/2023. Called and LMOM for pt letting her know of negative test. Let her know she can log onto [employer] and answer her ?'s and everything needs to be done in the system and Rx picked up by 11/23/23. Pt to call back with any further questions or concerns. Negative HCG results faxed from [facility]. Scanned into media. Returned call to patient, left voicemail advising that the order was given to her in office, it is in the system if she goes to [employer] ([employer] Advised it is also accessible from [employer]. Advised to return call if she would like us to mail a copy of the lab order to her home address. Patient would like a call back ZINA,she is on her way to take her urine test and she forgot her paperwork. She needs it sent to where she is going. Please advise, thanks. documented in this encounter [facility] 11-17-2023 Telephone encounter Note Negative HCG results faxed from [facility]. Scanned into media. [facility] 11-16-2023 Telephone encounter Note Returned call to patient, left voicemail advising that the order was given to her in office, it is in the system if she goes to [employer] ([employer]). Advised it is also accessible from [employer]. Advised to return call if she would like us to mail a copy of the lab order to her home address. [facility] 11-16-2023 Telephone encounter Note Patient would like a call back ZINA,she is on her way to take her urine test and she forgot her paperwork. She needs it sent to where she is going. Please advise, thanks. [facility] 11-15-2023 Telephone encounter Note In office, face to face discussion with Dr. Vergara about pt Lyrica concerns below. Per Dr. Vergara: Pt is to take Lyrica 150 mg TID postoperatively x 7 days. Patient does not need to take highest dose of Lyrica, 600 mg/day, yet, as Dr. Vergara wants to have room to increase Lyrica dose postoperatively if needed for post op pain. Spoke to pt again, verified name/ Pt has already picked up additional Lyrica 50 mg tablets ordered 10/30/23. Gave msg above per Dr. Vergara Pt voiced understanding and knows to take Lyrica 150 mg TID x 7 days postoperatively. Gabriela Cedillo RN [facility] 11-15-2023 Miscellaneous Notes In office, face to face discussion with Dr. Vergara about pt Lyrica concerns below. Per Dr. Vergara: Pt is to take Lyrica 150 mg TID postoperatively x 7 days. Patient does not need to take highest dose of Lyrica, 600 mg/day, yet, as Dr. Vergara wants to have room to increase Lyrica dose postoperatively if needed for post op pain. Spoke to pt again, verified name/ Pt has already picked up additional Lyrica 50 mg tablets ordered 10/30/23. Gave msg above per Dr. Vergara Pt voiced understanding and knows to take Lyrica 150 mg TID x 7 days postoperatively. Gabriela Cedillo RN Phoned pt, verified name/ Spoke to pt for clarification Pt thought Dr. Vergara was going to order additional Lyrica capsules to equal "max dose of 600 mg per day". Dr. Vergara ordered additional 21 tablets of Lyrica 50 mg 10/30/23 with directions add one tablet to usual 100 mg dose TID x 7 days postoperatively, which would be a total of Lyrica 450 mg/day. Pt wants to confirm & clarify correct Lyrica dose for post op Advised will speak with Dr. Vergara in office and call back with correct medication directions. Gabriela Cedillo RN Reason for call: other - Provider name: Dr Vergara Additional comments: pt upset and need someone to look at her dosage of Lyrica. She was told she can take 600mg of this medication and she was already on 300 so the doctor was adding 300mg. But the nurse told her 150mg, for three times a day. Patient states she is already taking 300mg so this will be 750mg. She would like someone to clarify this medication and dosage. Recommendation: routed to nurse triage pool Last visit in this department: 09/19/2023 Last distance health visit in this department: 11/07/2023 Property Management Intern, Nurse Next visit in this department: 12/08/2023 12/08/2023 in [facility] with ALINE WEN - POST OP 2 WEEKS 01/08/2024 in [facility] CPP with MEME VERGARA - POST OP 6 WEEKS documented in this encounter [facility] 11-15-2023 Telephone encounter Note Phoned pt, verified name/ Spoke to pt for clarification Pt thought Dr. Vergara was going to order additional Lyrica capsules to equal "max dose of 600 mg per day". Dr. Vergara ordered additional 21 tablets of Lyrica 50 mg 10/30/23 with directions add one tablet to usual 100 mg dose TID x 7 days postoperatively, which would be a total of Lyrica 450 mg/day. Pt wants to confirm & clarify correct Lyrica dose for post op Advised will speak with Dr. Vergara in office and call back with correct medication directions. Gabriela Cedillo, RN [facility] 11-15-2023 Telephone encounter Note Reason for call: other - Provider name: Dr Vergara Additional comments: pt upset and need someone to look at her dosage of Lyrica. She was told she can take 600mg of this medication and she was already on 300 so the doctor was adding 300mg. But the nurse told her 150mg, for three times a day. Patient states she is already taking 300mg so this will be 750mg. She would like someone to clarify this medication and dosage. Recommendation: routed to nurse triage pool Last visit in this department: 09/19/2023 Last distance health visit in this department: 11/07/2023 Property Management Intern, Nurse Next visit in this department: 12/08/2023 12/08/2023 in [facility] with ALINE WEN - POST OP 2 WEEKS 01/08/2024 in [facility] CPP with MEME VERGARA - POST OP [address] [facility] Work Phone: 11-15-2023 History of Present illness Narrative DATE OF SERVICE: 11/15/2023 PATIENT NAME: Maria T Wynne : 1995 AGE: 28 y.o. CLINIC NUMBER: [id number] Visit type: Established patient Chief Complaint Patient presents with Acne EPIFANIO: 10/16/23 with Marie Larios PA-C ([place]) Subjective HISTORY OF PRESENT ILLNESS: This is a 28 y.o. female who presents for accutane start. Patient had a test on 10/16/23 that was negative. Patient is looking to restart isotretinoin. Patient completed 4 months of accutane and would like to finish her treatment course. Patient to technically start month 5 of isotretinoin. Pt iPledge #[id number]. Pts 2 forms of contraception OCP and Male Latex Condoms. Patient had a test on 10/16/23 that was negative. Patient is looking to restart isotretinoin. Review of Systems Orders Placed This Encounter Medications ISOtretinoin (Accutane) 40 MG capsule Sig: Take 1 capsule (40 mg) by mouth in the morning and 1 capsule (40 mg) in the evening. Take with meals. Dispense: 60 capsule Refill: 0 Pt iPledge #[id number] There were no vitals filed for this visit. PHYSICAL EXAM GENERAL APPEARANCE:?Alert & oriented x3, pleasant. Well developed, well nourished. PSYCH: appropriate mood and affect DERMATOLOGY: (all measurements are in cm, unless otherwise noted) 1. Acne vulgaris Head - Anterior (Face) Scattered acneiform papules [x]Chronic []Acute []Stable [x]Flaring/Exacerbation Educated and reassured. Treatment options, risks, benefits, and expectations reviewed. Patient to restart isotretinoin. Oral isotretinoin (Accutane) is discussed fully with the patient/ patient's parent. It is a very effective drug to treat acne vulgaris but has many potential side effects. Risks and benefits reviewed with patient/ patient's parent. Significant potential side effects include teratogenesis, hepatic injury, dyslipidemia and severe drying of the mucous membranes. All of these have been discussed in detail. Lab tests to monitor lipids and liver functions will be ordered periodically throughout treatment and monthly tests for females are required. Expect dryness and/or fissuring around the lips, eyes, and other moist areas of the body. Balms may be protective. Contact lens may be too painful to wear temporarily while on this drug. Episodes of significant depression have been reported, including suicidal ideation and attempts in rare cases. It may also cause pseudotumor cerebri and hyperostosis. The patient will report any such changes in mood, depressive symptoms or suicidal thoughts, headaches, joint or bone pains or any other symptom. No personal or family h/o depression/ suicide attempts No personal or family h/o Inflammatory bowel disease (Crohn's disease or ulcerative colitis) Patient is not , trying to become or nursing. Patient was extensively educated that Isotretinoin is a known teratogen and will cause defects if patient becomes while taking the medication. Patient is aware that she cannot try to become for at least one month after she stops taking the medication. Two forms of contraceptive methods are reviewed. Additional patient counseling: reviewed importance of compliance, lab testing reviewed/ required, no vitamin or herbal supplements, limit alcohol use, limit/ avoid tylenol use, do not donate blood, do not share medication, no cosmetic procedures or waxing, and reminded of sun sensitivity. After discussion of the risks/ benefits of Isotretinoin, patient indicate complete understanding of all of the above and wish to proceed with Isotretinoin therapy. Re-Start: (starting month 5) -isotretinoin 40mg: take 1 tab PO BID with meals Related Medications drospirenone-ethinyl estradiol (ALETHA) 3-0.02 MG tablet Take 1 tablet by mouth daily. ISOtretinoin (Accutane) 40 MG capsule Take 1 capsule (40 mg) by mouth in the morning and 1 capsule (40 mg) in the evening. Take with meals. 2. Encounter for long-term (current) use of high-risk medication Patient has urine hcg slip. Patient to get test done today. Once result is sent, she will be confirmed in ipledge and made aware of her time window to roller picker medicine. Follow up in about 4 weeks (around 12/13/2023) for Iso f/u. Marie Larios PA-C 11/15/23 1:57 PM documented in this encounter [facility] 11-06-2023 Instructions Che Caballero PA-C - 11/06/2023 1:50 PM EDT PATIENT PREOPERATIVE INSTRUCTIONS Meme Vergara MD has scheduled you for your procedure at this surgery center: [facility]: [phone] -- [address] [address]. Please read below carefully for your personalized instructions. Dietary Restrictions: - No solid food after midnight. - You may have 12 ounces of clear liquids (water, clear juices such as apple juice or gatorade, carbonated beverages, clear tea, black coffee, jello) until 2 hours before scheduled arrival at facility. Medications: Medications to take the day of surgery with a sip of water: Lyrica, control , zetia, hydroxyzine, omeprazole, Zubsolv Tirzepatide- hold one week before surgery (11/16) If you start any new medications after today's visit, please contact the surgeon's office. Blood Thinning Medications: - Stop NSAIDS (Ibuprofen, Advil, Aleve, Motrin, Celebrex, Mobic, etc.) 7 days before surgery, as directed by your surgeon. - Stop Aspirin 7 days before surgery, as directed by your surgeon. - Stop Vitamin E, ALL multi-vitamins, herbals and dietary supplements 7 days before surgery. - You may take Tylenol (Acetaminophen) or any of your pain medications that do not contain aspirin or NSAIDS as needed. Important Reminders: - If you use CPAP/BIPAP, bring the machine with you to the surgery center. - If you are prescribed inhalers for breathing, continue using them. - Candy, mints, and tobacco products are NOT permitted the morning of surgery. - Hearing aids, dentures and glasses may be worn the morning of surgery. - NO jewelry, body piercings, makeup, hairpins or contacts are to be worn the day of surgery. If you develop symptoms such as a fever, cold, or flu, or have other changes to your health within TWO DAYS of scheduled surgery or the morning of surgery, please contact the surgery center above. Personal Belongings: -Please have photo ID and insurance cards. -If you do not have a copy of advance directives on file with us, please bring a copy with you on the day of surgery. - Leave ALL valuables and money at home or with family members. For Outpatient Procedures: - YOU MUST HAVE A RESPONSIBLE INSPECTOR PROCESS TAKE YOU HOME. A WIRELESS TELEGRAPHER OR METAL MELTER CANNOT BE MADE A RESPONSIBLE INSPECTOR PROCESS. - We recommend that a responsible person stays with you overnight to take care of you. - You cannot stay in a hotel alone after outpatient surgery. You will not be permitted to have your surgery, if you do not have someone to take care of you. Arrival Time for Surgery: -You will receive a call from [facility] the afternoon before surgery after 2:30 pm (or Monday for Monday surgery) for a scheduled arrival time. - If you have not heard by 4 pm, please contact [facility] at [phone]. Please be aware that emergency situations arise, which may delay or change your surgical time. If this happens, we will notify you as soon as possible and regret any inconvenience. If you already have an Advance Directive, please fax a copy to [phone] or email to for it to be added to your chart. If you do not have an Advance Directive, you can find the appropriate form and more information at [email or web address]. We recommend that you complete the Advance Directive form found on the website and bring it with you the day of your surgery. It can be witnessed and scanned into your chart that day. Che Caballero PA-C documented in this encounter [facility] 11-06-2023 History and physical note Images from the original note were not included. [facility] HISTORY AND PHYSICAL EXAMINATION SERVICE DATE: 11/06/2023 SERVICE TIME: 1:25 PM PRIMARY CARE PHYSICIAN: Michele Bell, Assessment Patient has the following medical conditions which may affect ines-operative course: MICHELLE (obstructive sleep apnea) Assessment: can not tolerate CPAP Tobacco use Assessment: smoking and vaping Other chronic pain Assessment: follows with online suboxone provider, taking Zubsolv HLD (hyperlipidemia) Assessment: taking zetia, PCP following Opioid dependence with withdrawal (HCC) Assessment: taking Zubsolv Obesity (BMI 30-39.9) Assessment: BMI 37.37, taking tirzepatide Insulin resistance Assessment: follows with Precinct Commanding Officer, taking metformin Garber Activity Status Index: METS: Take care of self; that is eating, dressing, bathing, using the toilet (2.75 METs) DASI Score: 2.75 Patient denies any chest pain or undue shortness of breath with the above physical activity. Clinical Frailty Scale: 4. Apparently vulnerable STOP-Bang Score: STOP-Bang Score: (+MICHELLE- not using CPAP) ANESTHESIA FINDINGS: Intubation History: No history of difficult intubation Significant Anesthesia Considerations: none Airway History: No history of difficult airway I - PHYSICAL EVALUATION AIRWAY Patient intubated: No. Tracheostomy tube not present Mallampati: III. TM distance: >3 FB. Neck ROM: full ROM without neurological symptoms. Mouth opening: adequate. Short neck: yes. Thick neck: yes Lip Bite Test: II (TMJ) DENTAL Dental findings: missing tooth/teeth, broken tooth and chipped. II - ANESTHESIA PLAN Anesthetic plan additional comments: *PACC/TCI - anesthesia choice. Beta Elaine Monitoring Plan Post Procedure Analgesic Plan Prepared for Surgery: optimally prepared for surgery. CONSULTS: Patient does not require consults for optimization at this time Planned Anesthetic: anesthesia choice The Following Tests/Procedures Have Been Initiated: Orders Placed This Encounter Basic Metabolic Panel Standing Status: Future Standing Expiration Date: 02/05/2024 Complete Blood Count and Differential Standing Status: Future Standing Expiration Date: 02/05/2024 Type and Screen, 30 day Standing Status: Future Standing Expiration Date: 02/05/2024 Scheduling Instructions: A 30-day Type and Screen test has been ordered for you. This should be scheduled to be collected no earlier than 29 days before your scheduled procedure. If you receive blood products (red blood cells, platelets, plasma, cryoprecipitate) at any point before your procedure or are a female and become , please inform your provider. This test will be canceled, and a standard type and screen will need to be ordered to be collected within 3 days of your procedure. Order Specific Question: [facility] or Procedure: Answer: [facility] Order Specific Question: Status of surgery/procedure: Answer: Scheduled Order Specific Question: Date of surgery/procedure: Answer: 11/23/2023 TIRZEPATIDE, WEIGHT LOSS, SUBCUTANEOUS Sig: Inject subcutaneously. This is a virtual visit using [employer] video visit. It required patient-provider interaction for the medical decision making as documented below. REASON FOR VISIT: Maria T Wynne is a 28 year old female who is scheduled for Procedure(s): LAPAROSCOPY FULGURATION OR EXCISION OF LESIONS OF THE OVARY PELVIC VISCERA OR PERITONEAL SURFACE BY ANY METHOD (N/A) LAPAROSCOPIC APPENDECTOMY ADULT (Right) at the request of Dr. Meme Vergara for consultation. My final recommendation will be communicated back to the requesting physician by way of shared medical record or letter. Subjective The patient has the following: COVID-19 Immunization Status Overdue - Covid-19 Vaccine ( season) Overdue since 11/11/2022 03/16/2021 Imm Admin: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 results within date range. NA No results within date range. K No results within date range. GLUC No results within date range. BUN No results within date range. CREAT No results within date range. PTSEC No results within date range. INR No results within date range. APTT No results within date range. ALT No results within date range. AST No results within date range. TBILI No results within date range. TSH No results within date range. Lab Value Units Date High Low HCGQT No results within date range. UHCG No results within date range. HCG, BODY* No results within date range. Lab Value Units Date High Low ABORHD No results within date range. ABSCREEN No results within date range. Hemoglobin A1C (%) Date Value 01/28/2023 5.5 06/28/2019 5.1 No results found for this or any previous visit (from the past 8760 hour(s)). No results found for this or any previous visit (from the past 36175 hour(s)). Instructions Given to Patient: Instructions located in the after visit summary. Patient given verbal and written preop instructions and voices comprehension and compliance. SIGNATURE: Che Caballero PA-C PATIENT NAME: Maria T Wynne DATE: November 06, 2023 TIME: 2:30 PM PAGER/CONTACT #: documented in this encounter [facility] 11-03-2023 Note HNO ID: [id number] Author: BHUMIKA DEXTER LPN Service: ? Author Type: LICENSED NURSE Type: Progress Notes Filed: 11/07/2023 14:34 Note Text: DATE OF SERVICE: 11/07/2023 PROBLEM: Maria T Wynne presents for pre-op teaching. PRE-OP DIAGNOSIS: chronic pelvic pain, dysmenorrhea, and vulvar pain SCHEDULED SURGERY AND DATE: 11-23-23 [facility] LAPAROSCOPY FULGURATION OR EXCISION OF LESIONS OF THE OVARY PELVIC VISCERA OR PERITONEAL SURFACE BY ANY METHOD and LAPAROSCOPIC APPENDECTOMY ADULT PRIMARY SURGEON: Dr. Meme Vergara NURSING PREOP ASSESSMENT: Fevers, chills, cough, or nasal congestion: No Vaginal itching, burning, discharge, or odor: No Pain with urination, frequency, urgency, cloudy or foul smelling urine: No If yes to any of the above then MD notified: Not Applicable ADVANCED CARE PLANNING: Does the patient have an advanced directive: No Does [facility] have a copy of the patient's advanced directive: No Was advanced directive given to the patient: No PATIENT LEARNING ASSESSMENT: Individual patient/family learning needs evaluated and addressed: Yes Cognitive ability: Alert and oriented Motivation to learn: Interested Factors affecting learning: None Physical limitations affecting learning: None Patient learns best by: Multiple Methods Method of instruction: Individual instruction Instructions provided to: Patient via telephone. Written material provided prior to education appointment. Family support: High - Very involved in pt care PRE- AND POST-OPERATIVE TEACHING Pre-operative teaching and supplemental material provided and reviewed with patient: Written pre-op and post-op instructions Antibacterial soap: patient will buy Pre-operative instructions provided and reviewed with patient/family: No eating, drinking, or smoking after midnight prior to surgery unless otherwise directed No alcohol the day before surgery Medications as prescribed by anesthesia, internal medicine, surgeon, or HOOKER LASTER Stop NSAIDs, Aspirin (ASA), vitamins, herbal supplements, herbal teas, and diet pills 7-10 days prior to surgery OK to take tylenol prn pain unless otherwise directed by physician Call surgery coordinators if any other questions about surgery date or pre-op appointments Bowel prep instructions: NPO after midnight Day of surgery instructions provided and reviewed with patient/family: Arrival time (call surgical coordinators on the office day prior to surgery for verification) No jewelry, body piercing, makeup, contacts, lotions, nail portuguese on fingers, or anything in hair on arrival to surgery Wear low healed shoes and loose fitting clothing Leave all valuables at home or with a family member Directions to [facility] Parking/parking validation on the day prior to surgery Admission/check in Holding area Placement of IV Surgical positioning Family waiting area Surgical recovery room Post-operative instructions provided and reviewed with patient/family: SEE PATIENT INSTRUCTION SECTION FOR DETAILS. SYMPTOMS TO NOTIFY MD - Fever, chills, nausea, vomiting, increased or severe pain, heavy vaginal bleeding, foul smelling vaginal drainage, pain or swelling in extremities. URGENT SYMPTOMS - Call 911 or go to ER if any shortness of breath, difficulty breathing, or chest pain. HOW TO CONTACT PHYSICIAN - Physician's office phone number given to patient, if after hours patient instructed to call mold cutting machine operator and ask for inspector insulation sample maker hand resident. MONA program offered to patient: Yes Additional teaching as indicated by patient/family learning needs. PATIENT LEARNING EVALUATION AND FOLLOW UP PLAN: Patient and/or family express understanding of upcoming surgery, pre-operative preparation, the operative process, and post-operative instructions. Follow up plan: Patient instructed to call with any further issues Patient has a post-op appointment scheduled: Yes12-08-23 at 1pm with Aline Wen (video) Referral (recommentation): None Educator: Bhumika Dexter LPN [facility] 11-03-2023 History of Present illness Narrative DATE OF SERVICE: 11/07/2023 PROBLEM: Maria T Wynne presents for pre-op teaching. PRE-OP DIAGNOSIS: chronic pelvic pain, dysmenorrhea, and vulvar pain SCHEDULED SURGERY AND DATE: 11-23-23 [facility] LAPAROSCOPY FULGURATION OR EXCISION OF LESIONS OF THE OVARY PELVIC VISCERA OR PERITONEAL SURFACE BY ANY METHOD and LAPAROSCOPIC APPENDECTOMY ADULT PRIMARY SURGEON: Dr. Meme Vergara NURSING PREOP ASSESSMENT: Fevers, chills, cough, or nasal congestion: No Vaginal itching, burning, discharge, or odor: No Pain with urination, frequency, urgency, cloudy or foul smelling urine: No If yes to any of the above then MD notified: Not Applicable ADVANCED CARE PLANNING: Does the patient have an advanced directive: No Does [facility] have a copy of the patient's advanced directive: No Was advanced directive given to the patient: No PATIENT LEARNING ASSESSMENT: Individual patient/family learning needs evaluated and addressed: Yes Cognitive ability: Alert and oriented Motivation to learn: Interested Factors affecting learning: None Physical limitations affecting learning: None Patient learns best by: Multiple Methods Method of instruction: Individual instruction Instructions provided to: Patient via telephone. Written material provided prior to education appointment. Family support: High - Very involved in pt care PRE- AND POST-OPERATIVE TEACHING Pre-operative teaching and supplemental material provided and reviewed with patient: Written pre-op and post-op instructions Antibacterial soap: patient will buy Pre-operative instructions provided and reviewed with patient/family: No eating, drinking, or smoking after midnight prior to surgery unless otherwise directed No alcohol the day before surgery Medications as prescribed by anesthesia, internal medicine, surgeon, or HOOKER LASTER Stop NSAIDs, Aspirin (ASA), vitamins, herbal supplements, herbal teas, and diet pills 7-10 days prior to surgery OK to take tylenol prn pain unless otherwise directed by physician Call surgery coordinators if any other questions about surgery date or pre-op appointments Bowel prep instructions: NPO after midnight Day of surgery instructions provided and reviewed with patient/family: Arrival time (call surgical coordinators on the office day prior to surgery for verification) No jewelry, body piercing, makeup, contacts, lotions, nail portuguese on fingers, or anything in hair on arrival to surgery Wear low healed shoes and loose fitting clothing Leave all valuables at home or with a family member Directions to [facility] Parking/parking validation on the day prior to surgery Admission/check in Holding area Placement of IV Surgical positioning Family waiting area Surgical recovery room Post-operative instructions provided and reviewed with patient/family: SEE PATIENT INSTRUCTION SECTION FOR DETAILS. SYMPTOMS TO NOTIFY MD - Fever, chills, nausea, vomiting, increased or severe pain, heavy vaginal bleeding, foul smelling vaginal drainage, pain or swelling in extremities. URGENT SYMPTOMS - Call 911 or go to ER if any shortness of breath, difficulty breathing, or chest pain. HOW TO CONTACT PHYSICIAN - Physician's office phone number given to patient, if after hours patient instructed to call mold cutting machine operator and ask for inspector insulation sample maker hand resident. MONA program offered to patient: Yes Additional teaching as indicated by patient/family learning needs. PATIENT LEARNING EVALUATION & FOLLOW UP PLAN: Patient and/or family express understanding of upcoming surgery, pre-operative preparation, the operative process, and post-operative instructions. Follow up plan: Patient instructed to call with any further issues Patient has a post-op appointment scheduled: 12-08-23 at 1pm with Aline Wen (video) Referral (recommentation): None Educator: Bhumika Dexter LPN [facility] documented in this encounter [facility] 11-03-2023 Instructions Bhumika Dexter LPN - 11/03/2023 9:03 AM EDT Images from the original note were not included. MINIMALLY INVASIVE GYNECOLOGIC SURGERY (MIGS)/BENIGN GYNECOLOGY CONTACTS: Dr. Meme Vergara Surgery Scheduling Office: Call the day before surgery after 2pm for your surgery arrival time After hours phone number: or toll free Ask the mold cutting machine operator to page the sample maker hand inspector insulation.' Business hours are Monday - Monday from 8:00am - 4:30pm. We are closed on weekends and major holidays. PRE-OPERATIVE CHECKLIST: PATIENT INSTRUCTIONS PRIOR TO SURGERY Our guidelines have changed, so please read these instructions carefully. Your surgery may be cancelled if you do not follow these instructions. I have been instructed not to have any solid food to eat after midnight prior to my surgery (this includes no gum, mints, smoking). I am allowed to drink small amounts (up to 12 oz) of clear liquids up until 2 hours prior to my arrival time. Clear liquids include water, fruit juices without pulp, carbonated beverages (i.e. abby hima), electrolyte beverages (i.e. Gatorade), clear tea and black coffee, clear broth, popsicles and jello. (No milk). No alcohol the day before or day of surgery. MEDICATION STOPPAGE: Unless my surgeon tells me differently, I will STOP THESE MEDICATIONS 7 DAYS PRIOR TO SURGERY: (Motrin/ibuprofen/Naproxen/Aleve/ Advil), Aspirin, vitamin E, herbal medications, diet pills, and [id number] medications. Tylenol (acetaminophen) is okay. I will not wear jewelry, body piercing(s), makeup, nail portuguese, hairpins, or contacts on the day of surgery. I am to leave valuables and money at home or with family members. If I am prescribed inhalers for breathing, I will use them and bring them to the hospital. Medication(s) to be taken on the morning of surgery with a few sips of water: If I am taking any of the following blood thinning medications - Aspirin, clopidogrel (Plavix), ticagrelor (Brilinta), prasugrel (Efficient), ticlodipine (Ticlid), warfarin (Coumadin), dibigatran (Pradaxa) or rivaroxaban (Xarelto) - I will discuss whether or not I should stop them before surgery with my surgeon. Discuss medication changes with your certified drug counselor or primary care physician as well. If I stopped taking my blood-thinning medication, I will ask the surgeon when to resume taking it. If I am an outpatient, a responsible person will drive me home and it was suggested that someone stay with me for 24 hours. I understand that a drug abuse program coordinator or cabdriver is NOT a responsible caregiver. Patients with diabetes, I will not take my morning diabetes medication (pills) on the morning of surgery. If I am on insulin, someone has gone over those instructions with me for the morning of surgery. I understand if my surgery is delayed, I will notify the check in desk that I have diabetes. See the Diabetic Guidelines Before Surgery in the patient education section. If I have Obstructive Sleep Apnea and use a CPAP/BiPAP machine, I will bring my mask, tubing, and machine with me on the day of surgery. PREOP INSTRUCTIONS THE DAY OF SURGERY/CHECK IN Surgery Location Parking Check-in Location [address] [place], [place] Parking garage next to hospital or [place] [address] Surgical Waiting Desk The online version of the surgical guide book can be found at: [email or web address] INFECTION PREVENTION Please notify your doctor if you have any signs of an infection (i.e. fever, severe cough, nasal congestion, pain with urination, abnormal vaginal discharge, diarrhea, etc). Your surgeon will let you know if a bowel prep is needed before your surgery. If so, please see the attached instructions. Shower the night before surgery AND the morning of surgery with Hibiclens (provided by your surgeon). If you are allergic to Hibiclens or unable to obtain the Hibiclens, please wash with antibacterial soap. Wash your body from the neck down, focusing on your abdomen, belly button and external genitalia. Do not forget to scrub any skin folds and creases. No lotions, oils, creams, or powders after your shower. Underarm deodorant is okay. No shaving (abdominal or pubic hair) or douching the day before surgery. You may be asked to apply an antiseptic solution called Chlorhexidine Gluconate (CHG) which will be provided to you on arrival to the preop area. Hand washing is extremely important in preventing infection (for both you as the patient and for the caregivers). HOSPITALIZATION Before you leave the hospital, you typically need to be able to eat/drink, urinate, and have your pain controlled with oral medication. Your surgeon or other members of your surgeon s team will discuss any other specific medical issues related to your discharge with you. Your surgeon may order intermittent compression sleeves. These are massaging leg pumps to help prevent blood clots after surgery. See Your Surgical Guide Book for more information. It is also very important that you walk as soon as possible and as frequently as possible after surgery. This will help decrease your risk of blood clots, exercise your lungs and speed up your recovery after surgery. If you are admitted to the hospital overnight, you will be given an incentive spirometer, which is a breathing machine that will help make sure that you are taking deep breaths and expanding your lungs while in the hospital. See Your Surgical Guide Book for more information. [facility] TEAM At the [facility], we have a multidisciplinary team of caregivers that includes fellows, residents, nurse practitioners, physician assistants, clinical nurse specialists, nurses, medical assistants, patient care nursing assistants, social workers, case management specialist and many others. We all have different roles and responsibilities but we are all here to help. MINIMALLY INVASIVE LAPAROSCOPY POSTOPERATIVE INSTRUCTIONS ACTIVITY * No heavy lifting/pushing/pulling for 4-6 weeks. Do not lift anything more than 10 lbs (such as laundry, groceries, children, pets), vacuum, push heavy doors or grocery carts, etc, for 4-6 weeks. * You may climb stairs as tolerated. * Do not put anything in the vagina for 2 weeks after surgery unless otherwise instructed by your doctor (including tampons, douching, sexual intercourse, etc). * No driving for 1 week after surgery and not while taking narcotic pain medication. Drive defensively when you are ready. * Avoid sitting or lying in bed for more than 2 hours at a time while you are awake to reduce your risk of blood clots. * You may return to work when you are ready as long as you do not lift more than 10 pounds for 4-6 weeks. If you have a sedentary job or network technical analyst 1-2 weeks before returning to work is appropriate. You may return to work in 2-4 weeks if your job requires a lot of movement. Please contact your doctor if you need any return to work letters or medical leave paperwork to be completed. WOUND CARE * You will have small incisions on your abdomen. There will be dissolvable stitches under your skin that do not need to be removed. If you have a piece of gauze with a clear bandage over your belly button, please remove that the day after surgery when you shower. If you have steri-strips (paper tape) on the incisions, these may be removed in about 1-2 weeks. It is OK to remove them if they are falling off. If skin glue is present, leave in place for at least 2 weeks. * Shower daily after surgery. Clean your incision with mild antibacterial soap and water. Pat your incision dry with a clean towel. No tub baths or swimming pools for 2-4 weeks or until wound is completely healed. * No ointments or antibacterial creams are required for incisions. Do NOT use cleansing agents like alcohol or hydrogen peroxide. * Wash your hands frequently, especially before touching your incision or changing any dressings. PAIN MANAGEMENT * Take your oral pain medication as needed. * Alternate Tylenol and ibuprofen/Motrin (if you are eligible). Each of these medications can be taken every six hours. Try to stagger them so that you are taking something for pain every three hours (ex. Take Motrin at 12:00, Tylenol at 3:00, Motrin at 6:00, etc.) to maximize pain relief. You should be taking 600mg of ibuprofen every 6 hours. You should be taking 650mg of tylenol every 6 hours. You should take every 6 hours with staggering and alternating. For example. 9am - ibuprofen 12pm - tylenol 3pm - ibuprofen 6pm - tylenol 9pm - ibuprofen 12am - tylenol 3am - ibuprofen 6am - tylenol Studies show this is as effective as narcotics for pain control without the side effects. * The maximum dose of Tylenol is 3000 mg in 24 hours, the maximum dose of Motrin/ibuprofen is 2400mg in 24 hours * Some pain medications can cause constipation. We recommend a stool softener (i.e. Colace) while you take these medications. * You may also take milk of magnesia or Miralax for constipation as directed on the bottle. * There is a risk for addiction with narcotic pain medication, so take with caution and do not take more than the recommended amount. * Please be sure to dispose of leftover pain medication after you have recovered. You may dispose of unused narcotic medications in the trash with an unpleasant substance such as coffee grounds or cat litter or you can turn them in to a designated law enforcement/pharmacy narcotic box. You can also check FDA.gov to assess which medications can be safely flushed down the toilet. * There are locations to dispose of unused medications at three [facility] locations: [facility] pharmacy, [facility] pharmacy, and the Pharmacy [facility] the [facility] [place] for [facility] (inside the parking garage on the first floor). WHAT TO EXPECT AT HOME * Recovery from surgery is generally 2-4 weeks, but sometimes longer for more strenuous activity. It is normal to be very tired during this time. * It is normal to have some drainage or a small amount of vaginal bleeding after surgery that would require the use of a light pantiliner. This discharge may last up to 6 weeks. The bleeding and discharge should be light and should have no odor. * You may experience gas pain, abdominal swelling, or shoulder pain for 24-72 hours after surgery. This is from the carbon dioxide gas put into your abdomen to better visualize your organs. A warm shower, heating pad, and/or walking may help. One of our nurses will be calling you 1 to 3 days after surgery to check on you. WHEN TO CALL YOUR DOCTOR: * Fever (>100.4 F or 38.0 C) or chills. * Incision problems such as redness, warmth, swelling, or foul smelling drainage. * Severe nausea or persistent vomiting. * Bright red vaginal bleeding (soaking >1 pad/hour) or foul smelling vaginal drainage. * IT IS NORMAL TO HAVE A MINIMAL AMOUNT OF VAGINAL SPOTTING OR VAGINAL DISCHARGE FOR SEVERAL WEEKS * Severe pain not relieved with pain medication. * Pain and swelling in your legs, especially if it is only on one side. * Pain with urination, cloudy urine, or foul smelling urine. * Severe redness/irritation at sites where adhesive bandages were applied. * Or if you have any other problems or questions. FREQUENTLY ASKED QUESTIONS/CONCERNS: Constipation Constipation is common and it is normal to not have a bowel movement for up to one week after surgery. You should still be passing gas despite constipation and should be able to tolerate both liquid and solid food without nausea or vomiting. Concerning symptoms would be constipation without gas, with fever, or nausea/vomiting and inability to eat. Call your doctor if these symptoms occur. Over the counter stool softeners including Senna twice daily and Miralax up to twice daily can help with constipation. 1. Senna (1 capsule) two times a day 2. Miralax (polyethylene glycol) 17 g (1 measured capful or 1 packet) once a day. If you have not had a bowel movement 3 days after surgery, you may take the Miralax two times a day. If you have any discomfort because of the need to have a bowel movement, you may add milk of magnesia or magnesium citrate (available at your local pharmacy without a prescription) at any time. Do not take milk of magnesia or magnesium citrate if you have kidney failure. If you have loose or watery stools, stop taking the medications. Call your doctor s office if you have questions. Drainage from incisions Clear/pink drainage or a minimal amount of bleeding from incisions can be normal after laparoscopic surgery. Concerning drainage that is persistent, thick/cloudy, or foul smelling can be an indication of infection and should prompt you to call your doctor. Post-operative pain Pain after surgery is a challenging part of the healing process. Pain may be present for weeks but should gradually get better. Increasing pain or pain that is unbearable warrants evaluation by your doctor or in the emergency department. By state law we cannot immediately provide narcotic pain medication over the phone. Stitches If 2 weeks have passed and you have a visible stitch at a laparoscopic incision site it is OK for you to cut it to remove it. CALL 911 OR GO TO THE EMERGENCY ROOM IF YOU HAVE: Any shortness of breath, difficulty breathing, or chest pain. IF YOU FEEL YOU NEED TO GO TO THE EMERGENCY DEPARTMENT POST OPERATIVELY, WE RECOMMEND THE [facility] EMERGENCY DEPARTMENT FOR CONTINUITY OF CARE AND THE BEST ACCESS TO ONE OF THE SURGEONS ON OUR TEAM. Address: [address] [place] [address] documented in this encounter [facility] 10-27-2023 Telephone encounter Note Called patient to discuss mychart message, verified name and . Patient states she already spoke with Dr. Vergara and has no further concerns at this time. See distance health appointment 10/23/23. Closing this encounter. Izzy Garcia RN [facility] 10-27-2023 Miscellaneous Notes Called patient to discuss mychart message, verified name and . Patient states she already spoke with Dr. Vergara and has no further concerns at this time. See distance health appointment 10/23/23. Closing this encounter. Izzy Garcia RN documented in this encounter [facility] 10-27-2023 Evaluation + Plan note Future Scheduled TestsAlbumin/Creatinine Ratio, Random Urine 10/27/23 [facility] [place] 10-23-2023 Instructions Meme Vergara MD - 10/23/2023 1:26 PM EDT Instructions and what to expect after your laparoscopy Prior to Surgery Medications Stop taking any anti-inflammatory medications (Ibuprofen, Motrin, Naproxen, Aleve) at 7 days before your surgery to decrease risk of bleeding. Stop ALL herbal supplements and vitamins (other than daily multivitamin) 2 weeks before your surgery to avoid interactions with anesthesia. Other medication instructions will be discussed by your surgeon Diet You can eat your usual diet up until 8 hours before your surgery. Please drink 12 oz of Gatorade or Ensure Clear/Pre-Surgery 4 hours before surgery If you are diabetic use sugar free version Avoid drinks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 Paternal Grandfather Colon Cancer No Family History Social History Tobacco Use Smoking status: Every Day Packs/day: 1.00 Years: 12.00 Additional pack years: 0.00 Total pack years: 12.00 Types: Cigarettes Smokeless tobacco: Never Tobacco comments: vape Vaping Use Vaping Use: current everyday user Substances: Nicotine, Flavoring, Banana Ice Devices: Disposable Substance Use Topics Alcohol use: No Drug use: No Comment: former opioid user sober now Current Outpatient Medications Medication Sig clobetasol (TEMOVATE) 0.05 % ointment Apply to vulva BID for 30 days then once daily for 30 days then every other day for 30 days (Patient not taking: Reported on 09/19/2023) lidocaine-prilocaine (EMLA) 2.5-2.5 % cream Apply to affected area as needed. Apply to vulva 30 min prior to appointment metFORMIN ER (GLUCOPHAGE XR) 500 mg 24 hr tablet Take 500 mg by mouth daily with breakfast. CPAP/BIPAP/OTHER Type .CPAPSettings into a note to see current settings/supplies/DME information. acyclovir (ZOVIRAX) 400 mg tablet Take 2 tablets by mouth once daily. MYRA FE 04/01, 28, 1 mg-20 mcg (21)/75 mg (7) per tablet Take 1 tablet by mouth once daily. Take active pills only - skip placebo pills. imiquimod (ALDARA) 5 % cream Apply to affected area Monday, Monday, and Monday. CPAP/BIPAP/OTHER AutoCPAP 6-9 cmH20. DME: [employer]. SEMAGLUTIDE ORAL Take by mouth. 10 units sc once weekly iv contrast (will be provided with radiology test) MRI sacral plexus Inj, intravenously, once for 1 dose. No IV access, insert saline lock prior to the beginning of sedation, infusion, injection of imaging exam. Discontinue saline lock post exam. If Pt. has a central line or IVAD, may access for administration according to line specific nursing protocol. Once exam is complete flush line and de-access according to line specific nursing protocol in the MR contrast administration guidelines link. ZUBSOLV 2.9-0.[address] 2 (TWO) TABLETS UNDER THE TONGUE EVERY DAY naloxone 4 mg/actuation nasal spray (NARCAN) polyethylene glycol 3350 (MIRALAX) 17 gram/dose powder Take 17 g by mouth three times daily as needed for constipation. Dissolve dose in 4 - 8 ounces of liquid and take as directed. hydroCHLOROthiazide 12.5 mg capsule Take 12.5 mg by mouth once daily. pregabalin (LYRICA) 100 mg capsule Take 100 mg by mouth three times daily. ezetimibe (ZETIA) 10 mg tablet Take 10 mg by mouth once daily. hydrOXYzine HCl (ATARAX) 50 mg tablet TAKE 1 TO 2 TABLETS FOUR TIMES DAILY NEEDED FOR ANXIETY omeprazole magnesium (PRILOSEC ORAL) Take by mouth. cloNIDine HCl (CATAPRES) 0.1 mg tablet (Prior Auth#:[id number]) methocarbamol (ROBAXIN) 750 mg tablet Take 750 mg by mouth four times daily as needed. acetaminophen (TYLENOL ARTHRITIS PAIN ORAL) Take by mouth three times daily as needed. ibuprofen (MOTRIN) 600 mg tablet Take 1 tablet by mouth every 6 hours as needed. FOR PAIN. No current facility-administered medications for this visit. ALLERGIES Allergen Reactions Amitiza [Lubiprosto* Rash Amoxicillin Rash Cipro [Ciprofloxaci* GI Upset Clindamycin Intolerance Her whole body felt hot and she had abdominal pain Contact Metal Agent Rash Doxycycline GI Upset Epinephrine Other: See Comments Tremors, body aches, palpitations Flagyl [Metronidazo* GI Upset Nausea. Able to tolerate with anti-emetics Naproxen GI Upset Headache/GI upset Nickel Rash Penicillins Hives Sulfa (Sulfonamide * Other: See Comments It is like the flu x 10 Sulfamethoxazole-Tr* Other: See Comments REVIEW OF SYSTEMS: All other ROS: negative PHYSICAL EXAMINATION: VIDEO EXAM: (if completed, performed via video enabled technology) No exam performed ASSESSMENT: (N90.89) Vulvar lesion (primary encounter diagnosis) (A63.0) Genital warts PLAN: Discussed that genital warts and vulvar skin tags are sometimes impossible to differentiate visually If new lesions develop, recommend excision or cryoablation to minimize risk of transmission Also recommend use of barrier contraception with partner to reduce transmission risks There are no Patient Instructions on file for this visit. I spent a total of 20 minutes on the date of the service which included preparing to see the patient, [id number] patient care, completing clinical documentation, obtaining and/or reviewing separately obtained history, and counseling and educating the patient/family/caregiver Rosio Morel MD documented in this encounter [facility] 09-27-2023 Telephone encounter Note Spoke with pt and gave her the date and time for vv consent appt [facility] 09-27-2023 Miscellaneous Notes Spoke with pt and gave her the date and time for vv consent appt documented in this encounter [facility] 09-27-2023 Telephone encounter Note Spoke with pt and she accepted 11/23/23 surgery date at , rescheduled pre & post op appts except consent need an add on, informed pt teaching appt will not appear on MyChart [facility] 09-27-2023 Miscellaneous Notes Spoke with pt and she accepted 11/23/23 surgery date at , rescheduled pre & post op appts except consent need an add on, informed pt teaching appt will not appear on MyChart Spoke with pt to inform her as of Sept Dr Vergara will no longer be going to [facility] and we need to move her surgery to [place], pt asked that I call back tomorrow to discuss a November date at documented in this encounter [facility] 09-26-2023 Telephone encounter Note Spoke with pt to inform her as of Sept Dr Vergara will no longer be going to [facility] and we need to move her surgery to [place], pt asked that I call back tomorrow to discuss a November at [facility] 09-20-2023 Telephone encounter Note Returned patient's call to reschedule surgery, pt needed an afternoon surgery (which is Dr Vergara Monday OR ), pt accepted 04/09/24 at , scheduled pre/post op appts except P[facility] & lab because the [facility] schedule was not available, informed pt teaching appt will not appear on MyChart [facility] 09-20-2023 Miscellaneous Notes Returned patient's call to reschedule surgery, pt needed an afternoon surgery (which is Dr Vergara Monday OR ), pt accepted 04/09/24 at , scheduled pre/post op appts except PACC & lab because the [facility] schedule was not available, informed pt teaching appt will not appear on MyChart documented in this encounter [facility] 09-19-2023 History of Present illness Narrative Exam chaperoned by Nora Miner MA September 19, 2023 12:23 PM Images from the original note were not included. Maria T Wynne is a 28 year old female who presents today for a vulvar biopsy. Indication: genital warts We have previously discussed alternatives to wart excision. Pt declines topical therapies and liquid nitrogen application . UNIVERSAL PROTOCOL / SAFETY CHECKLIST Procedure to be Performed: excision of genital warts A total of 6 warts measuring 2-4 mm were excised Sign In: A Moment of CARE was completed. Personnel directly involved with the procedure wore the appropriate PPE (Personal Protective Equipment). Patient/Surrogate Stated/Verified: PATIENT VERIFIED(optional for EMERGENT procedures): Patient name, Date of , Relevant allergies, and The intended procedure Time Out Communication: Intended patient and procedure match the source documents. Consent documented and matches the intended procedure. Sign Out: SIGN OUT (optional for EMERGENT procedures): All specimen containers correctly labeled. Rosio Morel MD PROCEDURE NOTE: GROSS LESIONS: Yes, BIOPSY: Area was cleansed with betadine and anesthetized with 2mL 1% lidocaine with 1:100,000 epi. A 15 blade scalpel was used to excise all visible genital warts and a wart on the posterior portion of the left upper thigh. Hemostasis obtained with silver nitrate Procedure Summary: Patient tolerated procedure well. ASSESSMENT: genital warts, s/p excision PLAN: Specimens labeled and sent to Pathology. Will notify patient of results in 1-2 weeks. Post-procedure instructions reviewed and written material given to the patient. Pt has completed gardasil series Rosio Morel MD documented in this encounter [facility] 09-19-2023 Instructions Rosio Morel MD - 09/19/2023 12:21 PM EDT VULVAR BIOPSY PATIENT INSTRUCTIONS Many conditions may cause your authors motivational to suggest a vulvar biopsy including vulvar itching unresponsive to therapy, ulcerated lesions, pigmented lesions, and tumors. The biopsy result will assist your authors motivational to devise a treatment plan suitable to your condition. 1. Usually, there is a local discomfort, swelling, and skin discoloration. Using cold compresses overnight usually alleviates the discomfort considerably. Warm compresses thereafter can be used as needed. Prescribed analgesic (pain killers) are not necessary. You may use Advil, Tylenol, etc. for pain relief. 2. You may shower or take tub baths. 3. If sutures are used, they will dissolve in 7-14 days. 4. You should call the office if there is excessive bleeding, swelling, fever, chills, sweats, or difficulty walking. 5. Biopsy results will be available in 7-10 days. If you have not heard your results in 2 weeks please contact your physician. documented in this encounter [facility] 09-19-2023 Telephone encounter Note Called pt. Verified pt by name and . Pt informed to place cream 30 min before appt. Pt verbalized understanding. Tenisha Luna RN September 19, 2023 11:[address] [facility] 09-19-2023 Miscellaneous Notes Called pt. Verified pt by name and . Pt informed to place cream 30 min before appt. Pt verbalized understanding. Tenisha Luna RN September 19, 2023 11:13 AM Reason for call: other - Provider name: Dr Morel Additional comments: pt running late for her appt today and she was told to put cream on before her appt, but not sure what time, please advise Recommendation: routed to nurse triage pool Last visit in this department: Visit date not found Last distance health visit in this department: 09/18/2023 Property Management Intern, Nurse Next visit in this department: 09/19/2023 09/19/2023 in [facility] with ROSIO MOREL - Vulva biopsy per Dr. Morel pt running 15 min. late not boogie when to use the cream.sj 09/21/2023 in [facility] CPP with MEME VERGARA - PRE OP SURGERY CONSENT 10/17/2023 in [facility] with ALINE WEN - POST OP 2 WEEKS 11/17/2023 in [facility] CPP with MEME VERGARA - POST OP 6 WEEKS Electronically signed by [facility]ri [facility] at 09/19/2023 10:59 AM EDT documented in this encounter [facility] 09-19-2023 Telephone encounter Note Reason for call: other - Provider name: Dr Morel Additional comments: pt running late for her appt today and she was told to put cream on before her appt, but not sure what time, please advise Recommendation: routed to nurse triage pool Last visit in this department: Visit date not found Last distance health visit in this department: 09/18/2023 Property Management Intern, Nurse Next visit in this department: 09/19/2023 09/19/2023 in [facility] with ROSIO MOREL - Vulva biopsy per Dr. Morel pt running 15 min. late not boogie when to use the cream.sj 09/21/2023 in [facility] CPP with MEME VERGARA - PRE OP SURGERY CONSENT 10/17/2023 in [facility] with ALINE WEN - POST OP 2 WEEKS 11/17/2023 in [facility] CPP with MEME VERGARA - POST OP 6 WEEKS Electronically signed by [facility] at 09/19/2023 10:59 AM EDT [facility] Work Phone: 08-30-2023 Telephone encounter Note Patient scheduled 09/25/23 [facility] [employer] 08-30-2023 Miscellaneous Notes Patient scheduled 09/25/23 Spoke to patient regarding the [employer] message she sent and wanting to go back on accutane. Pt states she felt discouraged about stopping accutane at the last OV and states her boyfriend was never "encouraged" to stop accutane. Informed Pt of the differences between men on accutane and women on accutane. Patient thoroughly educated on the compliance piece of [employer], monthly tests, lab work, etc. Patient strongly believes she wants to finish out 2 months of accutane. Informed Pt in order to get her back into [email or web address] system she would need 2 negative tests 30 days apart. Pt states she will send negative test today and go from there. Pt verbalized understanding and declined further questions. Patient returned call, available for a call back. Thank you. documented in this encounter [facility] 08-30-2023 Telephone encounter Note Cuca communication from patient on 08/28/23: I just wanted to send a message to let you know that I forgot to show you bumps that I had on my thigh and they re like highly identical with the ones on my vaginal area so I was never told that he could be on any other part of your body so I don t know if that s exactly what it is, but it won t go away and it feels the same so if you could put that in the file for me please because I ll forget again [facility] 08-30-2023 Miscellaneous Notes Anjanat communication from patient on 08/28/23: I just wanted to send a message to let you know that I forgot to show you bumps that I had on my thigh and they re like highly identical with the ones on my vaginal area so I was never told that he could be on any other part of your body so I don t know if that s exactly what it is, but it won t go away and it feels the same so if you could put that in the file for me please because I ll forget again documented in this encounter [facility] 08-29-2023 Bhumika Brantley LPN - 08/29/2023 11:03 AM EDT Images from the original note were not included. MINIMALLY INVASIVE GYNECOLOGIC SURGERY (MIGS)/BENIGN GYNECOLOGY CONTACTS: Dr. Paola Vergara Surgery Scheduling Office: Call the day before surgery after 2pm for your surgery arrival time After hours phone number: or toll free Ask the mold cutting machine operator to page the sample maker hand inspector insulation.' Business hours are Monday - Monday from 8:00am - 4:30pm. We are closed on weekends and major holidays. PRE-OPERATIVE CHECKLIST: PATIENT INSTRUCTIONS PRIOR TO SURGERY Our guidelines have changed, so please read these instructions carefully. Your surgery may be cancelled if you do not follow these instructions. I have been instructed not to have any solid food to eat after midnight prior to my surgery (this includes no gum, mints, smoking). I am allowed to drink small amounts (up to 12 oz) of clear liquids up until 2 hours prior to my arrival time. Clear liquids include water, fruit juices without pulp, carbonated beverages (i.e. abby hima), electrolyte beverages (i.e. Gatorade), clear tea and black coffee, clear broth, popsicles and jello. (No milk). No alcohol the day before or day of surgery. MEDICATION STOPPAGE: Unless my surgeon tells me differently, I will STOP THESE MEDICATIONS 7 DAYS PRIOR TO SURGERY: (Motrin/ibuprofen/Naproxen/Aleve/ Advil), Aspirin, vitamin E, herbal medications, diet pills, and xjwe-kjf-joarigs medications. Tylenol (acetaminophen) is okay. I will not wear jewelry, body piercing(s), makeup, nail portuguese, hairpins, or contacts on the day of surgery. I am to leave valuables and money at home or with family members. If I am prescribed inhalers for breathing, I will use them and bring them to the hospital. Medication(s) to be taken on the morning of surgery with a few sips of water: If I am taking any of the following blood thinning medications - Aspirin, clopidogrel (Plavix), ticagrelor (Brilinta), prasugrel (Efficient), ticlodipine (Ticlid), warfarin (Coumadin), dibigatran (Pradaxa) or rivaroxaban (Xarelto) - I will discuss whether or not I should stop them before surgery with my surgeon. Discuss medication changes with your certified drug counselor or primary care physician as well. If I stopped taking my blood-thinning medication, I will ask the surgeon when to resume taking it. If I am an outpatient, a responsible person will drive me home and it was suggested that someone stay with me for 24 hours. I understand that a drug abuse program coordinator or cabdriver is NOT a responsible caregiver. Patients with diabetes, I will not take my morning diabetes medication (pills) on the morning of surgery. If I am on insulin, someone has gone over those instructions with me for the morning of surgery. I understand if my surgery is delayed, I will notify the check in desk that I have diabetes. See the Diabetic Guidelines Before Surgery in the patient education section. If I have Obstructive Sleep Apnea and use a CPAP/BiPAP machine, I will bring my mask, tubing, and machine with me on the day of surgery. PREOP INSTRUCTIONS THE DAY OF SURGERY/CHECK IN Surgery Location Parking Check-in Location [facility] [address] [place], [place] Parking garage connected to hospital or photoengraving finisher Registration desk, first floor, main lobby The online version of the surgical guide book can be found at: [email or web address] INFECTION PREVENTION Please notify your doctor if you have any signs of an infection (i.e. fever, severe cough, nasal congestion, pain with urination, abnormal vaginal discharge, diarrhea, etc). Your surgeon will let you know if a bowel prep is needed before your surgery. If so, please see the attached instructions. Shower the night before surgery AND the morning of surgery with Hibiclens (provided by your surgeon). If you are allergic to Hibiclens or unable to obtain the Hibiclens, please wash with antibacterial soap. Wash your body from the neck down, focusing on your abdomen, belly button and external genitalia. Do not forget to scrub any skin folds and creases. No lotions, oils, creams, or powders after your shower. Underarm deodorant is okay. No shaving (abdominal or pubic hair) or douching the day before surgery. You may be asked to apply an antiseptic solution called Chlorhexidine Gluconate (CHG) which will be provided to you on arrival to the preop area. Hand washing is extremely important in preventing infection (for both you as the patient and for the caregivers). HOSPITALIZATION Before you leave the hospital, you typically need to be able to eat/drink, urinate, and have your pain controlled with oral medication. Your surgeon or other members of your surgeon s team will discuss any other specific medical issues related to your discharge with you. Your surgeon may order intermittent compression sleeves. These are massaging leg pumps to help prevent blood clots after surgery. See Your Surgical Guide Book for more information. It is also very important that you walk as soon as possible and as frequently as possible after surgery. This will help decrease your risk of blood clots, exercise your lungs and speed up your recovery after surgery. If you are admitted to the hospital overnight, you will be given an incentive spirometer, which is a breathing machine that will help make sure that you are taking deep breaths and expanding your lungs while in the hospital. See Your Surgical Guide Book for more information. [facility] TEAM At the [facility], we have a multidisciplinary team of caregivers that includes fellows, residents, nurse practitioners, physician assistants, clinical nurse specialists, nurses, medical assistants, patient care nursing assistants, social workers, case management specialist and many others. We all have different roles and responsibilities but we are all here to help. MINIMALLY INVASIVE LAPAROSCOPY POSTOPERATIVE INSTRUCTIONS ACTIVITY * No heavy lifting/pushing/pulling for 4-6 weeks. Do not lift anything more than 10 lbs (such as laundry, groceries, children, pets), vacuum, push heavy doors or grocery carts, etc, for 4-6 weeks. * You may climb stairs as tolerated. * Do not put anything in the vagina for 2 weeks after surgery unless otherwise instructed by your doctor (including tampons, douching, sexual intercourse, etc). * No driving for 1 week after surgery and not while taking narcotic pain medication. Drive defensively when you are ready. * Avoid sitting or lying in bed for more than 2 hours at a time while you are awake to reduce your risk of blood clots. * You may return to work when you are ready as long as you do not lift more than 10 pounds for 4-6 weeks. If you have a sedentary job or network technical analyst 1-2 weeks before returning to work is appropriate. You may return to work in 2-4 weeks if your job requires a lot of movement. Please contact your doctor if you need any return to work letters or medical leave paperwork to be completed. WOUND CARE * You will have small incisions on your abdomen. There will be dissolvable stitches under your skin that do not need to be removed. If you have a piece of gauze with a clear bandage over your belly button, please remove that the day after surgery when you shower. If you have steri-strips (paper tape) on the incisions, these may be removed in about 1-2 weeks. It is OK to remove them if they are falling off. If skin glue is present, leave in place for at least 2 weeks. * Shower daily after surgery. Clean your incision with mild antibacterial soap and water. Pat your incision dry with a clean towel. No tub baths or swimming pools for 2-4 weeks or until wound is completely healed. * No ointments or antibacterial creams are required for incisions. Do NOT use cleansing agents like alcohol or hydrogen peroxide. * Wash your hands frequently, especially before touching your incision or changing any dressings. PAIN MANAGEMENT * Take your oral pain medication as needed. * Alternate Tylenol and ibuprofen/Motrin (if you are eligible). Each of these medications can be taken every six hours. Try to stagger them so that you are taking something for pain every three hours (ex. Take Motrin at 12:00, Tylenol at 3:00, Motrin at 6:00, etc.) to maximize pain relief. You should be taking 600mg of ibuprofen every 6 hours. You should be taking 650mg of tylenol every 6 hours. You should take every 6 hours with staggering and alternating. For example. 9am - ibuprofen 12pm - tylenol 3pm - ibuprofen 6pm - tylenol 9pm - ibuprofen 12am - tylenol 3am - ibuprofen 6am - tylenol Studies show this is as effective as narcotics for pain control without the side effects. * The maximum dose of Tylenol is 3000 mg in 24 hours, the maximum dose of Motrin/ibuprofen is 2400mg in 24 hours * Some pain medications can cause constipation. We recommend a stool softener (i.e. Colace) while you take these medications. * You may also take milk of magnesia or Miralax for constipation as directed on the bottle. * There is a risk for addiction with narcotic pain medication, so take with caution and do not take more than the recommended amount. * Please be sure to dispose of leftover pain medication after you have recovered. You may dispose of unused narcotic medications in the trash with an unpleasant substance such as coffee grounds or cat litter or you can turn them in to a designated law enforcement/pharmacy narcotic box. You can also check FDA.gov to assess which medications can be safely flushed down the toilet. * There are locations to dispose of unused medications at three [facility] locations: [facility] pharmacy, [facility] pharmacy, and the Pharmacy at the [facility] for [facility] (inside the parking garage on the first floor). WHAT TO EXPECT AT HOME * Recovery from surgery is generally 2-4 weeks, but sometimes longer for more strenuous activity. It is normal to be very tired during this time. * It is normal to have some drainage or a small amount of vaginal bleeding after surgery that would require the use of a light pantiliner. This discharge may last up to 6 weeks. The bleeding and discharge should be light and should have no odor. * You may experience gas pain, abdominal swelling, or shoulder pain for 24-72 hours after surgery. This is from the carbon dioxide gas put into your abdomen to better visualize your organs. A warm shower, heating pad, and/or walking may help. One of our nurses will be calling you 1 to 3 days after surgery to check on you. WHEN TO CALL YOUR DOCTOR: * Fever (>100.4 F or 38.0 C) or chills. * Incision problems such as redness, warmth, swelling, or foul smelling drainage. * Severe nausea or persistent vomiting. * Bright red vaginal bleeding (soaking >1 pad/hour) or foul smelling vaginal drainage. * IT IS NORMAL TO HAVE A MINIMAL AMOUNT OF VAGINAL SPOTTING OR VAGINAL DISCHARGE FOR SEVERAL WEEKS *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 tacrolimus (Protopic) 0.1 % ointment Apply to affected areas of eczema twice daily. triamcinolone (Kenalog) 0.1 % cream Apply to affected areas BID x 2 weeks Stop using when clear. Repeat as needed for flares. Do not use on face, armpits Follow up in about 3 months (around 11/02/2023). Marie Larios PA-C 08/02/23 10:22 AM documented in this encounter [facility] 07-21-2023 Telephone encounter Note Situation: Speak With Provider Background: Pt calling in to advise she was told to see an Traffic Routing Engineer at [facility] to verify if she can have crowns done. Pt states [facility] does not have any openings until late Feb. Pt states she would like provider to update her on where she can go sooner or what alternative can be done to assist because she is in pain and cannot wait several months to be seen. Pt would like office to contact at earliest convenience to discuss. Assessment: Please assist Recommendation: Pt can be reached at Phone numbers Msg sent to [facility] 07/21/23 [facility] 07-21-2023 Miscellaneous Notes Situation: Speak With Provider Background: Pt calling in to advise she was told to see an Traffic Routing Engineer at [facility] to verify if she can have crowns done. Pt states [facility] does not have any openings until late Feb. Pt states she would like provider to update her on where she can go sooner or what alternative can be done to assist because she is in pain and cannot wait several months to be seen. Pt would like office to contact at earliest convenience to discuss. Assessment: Please assist Recommendation: Pt can be reached at Phone numbers Msg sent to [facility] 07/21/23 documented in this encounter [facility] 07-14-2023 Telephone encounter Note Spoke with pt to inform her Dr Vergara had a surgery cancellation at next wk (07/19/23) and did she want to move her surgery up, pt declined and stated she will keep her date in September [facility] 07-14-2023 Miscellaneous Notes Spoke with pt to inform her Dr Vergara had a surgery cancellation at next wk (07/19/23) and did she want to move her surgery up, pt declined and stated she will keep her date in September documented in this encounter [facility] 07-12-2023 Telephone encounter Note ADDITIONAL COMMENTS: Received a Pre Access e-mail to work this case. Had to e-mail the nurse to check what CPT code and diagnosis code she wanted me to use. Received a reply back from nurse she created a new referral with a different diagnosis and CPT code then referral # [id number]. [facility] no pre cert required for CPT code 12182. Verified eligibility through [facility]. Reply back to Pre Access e-mail the above information. Note: Reason for using Override: patient need Pelvic/Perineal Nerve Block, referral approved #[id number], but office visit will be after end date. Need new approval [facility] 07-12-2023 Miscellaneous Notes ADDITIONAL COMMENTS: Received a Pre Access e-mail to work this case. Had to e-mail the nurse to check what CPT code and diagnosis code she wanted me to use. Received a reply back from nurse she created a new referral with a different diagnosis and CPT code then referral # [id number]. Per [employer] CPT look up tool no pre cert required for CPT code 16006. Verified eligibility through [facility]. Reply back to Pre Access e-mail the above information. Note: Reason for using Override: patient need Pelvic/Perineal Nerve Block, referral approved #[id number], but office visit will be after end date. Need new approval Pt of EPIFANIO 12/11/23: Discussed with patient re: issues with insurance authorization (TPI submitted to insurance rather than pudendal nerve block as ordered). Will reattempt to get approval for MRI of lumbosacral plexus given multifocal nature of pain including vulvar, gluteal fold, and gluteal pain for possible nerve compression (pudendal vs radiculopathy). Discussed likely to be negative but rule out of anatomic etiology which would not be visualized on US or CT scan Reviewed pudendal nerve block today as previously scheduled. Discussed this is specific for assessment of her vulvar pain only. R/B/A discussed, see procedure note. Reviewed history consistent with possible endometriosis and discussed consideration to diagnostic/operative laparoscopy. She will consider Reviewed impact of fibromyalgia and nociplastic pain conditions. Recommended reading "The Way Out" She will update me via [employer] tomorrow whether she got any relief from the nerve block today. Patient verbalized understanding of the plan of care and all questions were answered to her stated satisfaction. Written and verbal health teaching given to patient, patient verbalizes understanding and agrees with treatment plan. Follow up in 3-4 months or prn. Tenisha Luna RN July 07, 2023 3:22 PM Reason for call: other - Provider name: Dr Vergara Additional comments: trigger Point Injections denied letter scan into epic Recommendation: routed to nurse triage pool Last visit in this department: Visit date not found Last distance health visit in this department: 06/27/2019 Gris Kemp MD Next visit in this department: 09/18/2023 documented in this encounter [facility] 07-07-2023 Telephone encounter Note Pt of EPIFANIO 02/20/23: Discussed with patient re: issues with insurance authorization (TPI submitted to insurance rather than pudendal nerve block as ordered). Will reattempt to get approval for MRI of lumbosacral plexus given multifocal nature of pain including vulvar, gluteal fold, and gluteal pain for possible nerve compression (pudendal vs radiculopathy). Discussed likely to be negative but rule out of anatomic etiology which would not be visualized on US or CT scan Reviewed pudendal nerve block today as previously scheduled. Discussed this is specific for assessment of her vulvar pain only. R/B/A discussed, see procedure note. Reviewed history consistent with possible endometriosis and discussed consideration to diagnostic/operative laparoscopy. She will consider Reviewed impact of fibromyalgia and nociplastic pain conditions. Recommended reading "The Way Out" She will update me via [employer] tomorrow whether she got any relief from the nerve block today. Patient verbalized understanding of the plan of care and all questions were answered to her stated satisfaction. Written and verbal health teaching given to patient, patient verbalizes understanding and agrees with treatment plan. Follow up in 3-4 months or prn. Tenisha Luna RN July 07, 2023 3:[address] [facility] 07-07-2023 Telephone encounter Note Reason for call: other - Provider name: Dr Vergara Additional comments: trigger Point Injections denied letter scan into epic Recommendation: routed to nurse triage pool Last visit in this department: Visit date not found Last distance health visit in this department: 06/27/2019 Gris Kemp MD Next visit in this department: 09/18/[address] [facility] Work Phone: 07-05-2023 Telephone encounter Note MyChart message sent [facility] 07-05-2023 Miscellaneous Notes MyChart message sent documented [facility] this [facility] [facility] Tele[facility] encounter Note Saw patient today virtually. She states her PCP is handling this and is taking K+ supplements. [facility] 07-03-2023 Miscellaneous Notes Saw patient today virtually. She states her PCP is handling this and is taking K+ supplements. S: reliability technicians/[facility] spoke with CAC nurse regarding urgent /critical lab. Potassium level reported 2.5 (Normal level 2.5-5.1) per the laborer laboratory. B: Onset of symptoms/concern critical lab notification Per patient was told to go lab for these orders. Yesterday or Today. States she is on daily KCL 20 meq take daily for the diuretic replacement Hydrochlorothiazide. States she had this lab work was required for a blood work test to continue on her prescribed Claravis Isotretinoin (Accutane) 40 mg capsules. A: Labs were ordered By Charo Larios 04/24/23 but was told to have it drawn this weekend. K+ is critical at 2.5 (3.5-5.1) Her PCP is Dr.. Canelo Bell ([facility]) R: Paging urgently Dr Radha Hanley for the critical K+ 2.5 Dr. Hanley advised she will need to follow up with her primary care physician if over the weekend any palpitations, chest pain, shortness of breath will need to go to the Emergency Department. Also advised to add banana and other foods high in potassium for this critical low. Per Dr Hanley, advised to route to Dr Chavez and also Aretha Larios. Notify patient. 20:04 CAC RN calling to notify of the low Potasium. And Dr Chavez directives. Patient understands care advice. Pt. Has noticed more legs cramps at evening time No further needs at this time. Patient instructed to call back with new or worsening symptoms. Reason for Disposition Lab or radiology calling with CRITICAL test results Protocols used: PCP Call - No [id number] documented in this encounter [facility] 07-03-2023 History of Present illness Narrative Patient here for day 1 of Ketamine infusion. Patient educated on medications to be administered. Confirmed NPO > 6 hours and has transportation home. Patient verbalized understanding and agreed to proceed with infusions. Monitor alarm limits are set and alarms are audible. Versed given for anxiety Patient with eyes closed throughout infusion. VS stable 1440 Pts infusion complete. Tolerated infusion well. Pt discharged to chair car driver in the lobby. documented in this encounter [facility] 07-03-2023 History of Present illness Narrative DATE OF SERVICE: 07/03/2023 PATIENT NAME: Maria T Wynne : 1995 AGE: 28 y.o. CLINIC NUMBER: [id number] 7:44 AM Chief Complaint Patient presents with Acne EPIFANIO 05/30/23 w/ Marie Larios PA-C () Verbal consent was received from the patient/parent to do telemedicine/ virtual visit. Subjective Maria T Wynne is a 28 y.o. who presents on the telephone for a remote visit (as recommended by the [facility] COVID-19 pandemic guidelines). Patient is currently on isotretinoin 40 mg BID x 3 months. Start date 03/16/23. Patient states she hasn't noticed much of a difference in her skin. She wants to complete the full course of isotretinoin. Interim History: Tolerating medication well. Patient does complain of dry lips. Treated with Aquaphor. Patient would like a script sent in today. Patient does complain of occasional nosebleeds. Admits visual changes, photosensitivity. Patient states she has always had problems with her visual and does not believe it is related to Accutane. The patient denies headaches, muscle/joint pains, fatigue, nausea/vomiting, diarrhea, abdominal pain, rectal bleeding, hair loss, and mood changes including: depression, increased feelings of anger, and suicidal ideations. [employer] # [id number] Pt two forms of contraception are OCP and Male latex condoms. Labs normal to date 07/01/23. Negative HCG Allergies Allergen Reactions Lubiprostone Rash Penicillins Hives, Rash and Other Other reaction(s): Other (See Comments), Unknown Patient states "she gets everything" Ciprofloxacin Hcl Other reaction(s): GI Upset Clindamycin Other reaction(s): Intolerance Her whole body felt hot and she had abdominal pain Doxycycline GI intolerance, Nausea And Vomiting and Other Other reaction(s): GI Upset, Unknown Metronidazole GI intolerance and Nausea And Vomiting Other reaction(s): GI Upset Nausea. Able to tolerate with anti-emetics Nausea Naproxen Other reaction(s): GI Upset Headache/GI upset Other Sulfa Antibiotics Other reaction(s): Other: See Comments It is like the flu x 10 Sulfamethoxazole-Trimethoprim Nausea And Vomiting Other reaction(s): Other: See Comments Tramadol Other reaction(s): Other: See Comments Headache seizure Nickel Rash PMH, allergies, and social history reviewed and updated as appropriate Medication list reviewed/updated Allergies reviewed/updated Problem list reviewed/updated Patient requests medication refills, see below for orders. Patient was seen today via Telehealth by agreement and consent. I used the following Telehealth technology: Audio and video capabilities. Patient location: Patient Location: Home. This patient encounter is appropriate and reasonable under the circumstances: transportation issues . The patient has been advised of the potential risks and limitations of this mode of treatment (including but not limited to the absence of in-person examination) and has agreed to be treated in a remote fashion in spite of them. Any and all of the patient's/patient's family's questions on this issue have been answered and I have made no promises or guarantees to the patient. The patient has also been advised to contact this office for worsening conditions or problems, and seek emergency medical treatment and/or call 911 if the patient deems either necessary. The patient stated that they are currently in the [facility]. If the patient is a minor, permission has been obtained by the parent or guardian for the patient to receive medical care at this visit. 1. Cheilitis Lips Dry chapped lips [x]Chronic []Acute []Stable [x]Flaring/Exacerbation Secondary to isotretinoin therapy. Educated and reassured. Treatment options, risks, benefits, and expectations reviewed. Start: -triamcinolone ointment: apply to lips BID x 5-7 days then prn flares. Risks associated with ferry terminal agent topical steroid use reviewed in detail. Related Medications triamcinolone (Kenalog) 0.1 % ointment apply to lips BID x 5-7 days then prn flares. 2. Acne vulgaris Head - Anterior (Face) Scattered acneiform papules [x]Chronic []Acute []Stable [x]Flaring/Exacerbation Educated and reassured. Treatment options, risks, benefits, and expectations reviewed. Stable on Isotretinoin. Patient has not noticed much improvement. She would like to finish 5 month course. Patient to start month 4. Patient currently not at goal. Patient to continue on Isotretinoin dose 40 mg BID. Target dose (0.5-1.0 mg/ kg/day or 120-150mg/kg total): 10,032-12,540 mg Dose to date: mg x days= 7,200 mg Pt [email or web address] ID# [id number]. Pt two forms of contraception are OCP and Male latex condoms. HCG negative (in media tab) Reviewed with patient the importance of calling office to inform staff of when and where labs are drawn if ordered. Pt advised that if labs drawn in any location other than in-house lab, results are not automatically sent to ordering provider. Educated that if office does not obtain labs within time sensitive window, patient may be discharged from [facility] and may have delay in picking up medication. Once labs are reviewed our office will call to inform Pt of the results, at that time Pt will need to log on to the [email or web address] system to answer the required questions. After that has been completed Pt will need to roller picker the prescription from the pharmacy. Reminded that the prescription expires 7 days from the date of the test. If experiencing nasal dryness, recommend that patient use a humidifier in bedroom while sleeping, as well as use normal saline solution, and Vaseline inside the nose to help ease the dryness which may cause nosebleeds. Recommend aquaphor, vaseline, or other dye/fragrance free lip balms to the lips for dryness and avoid licking the lips. Lubricating eye drops like Genteal for dry eyes, avoid contact lenses. Patient counseling: reviewed importance of compliance with the treatment plan including but not limited to: Lab testing (blood work) when indicated. Patient must AVOID . Two forms of contraceptive methods are reviewed. Monthly testing. Do not take vitamin supplements and avoid herbal supplements. Patient cannot donate blood. Do not share this medication with anyone. Avoid alcohol consumption. Avoid use of Acetaminophen. Avoid cosmetic procedures or waxing while taking this medication. Patient reminded of sun sensitivity. SAFETY NOTICE: Isotretinoin, otherwise known as Accutane, cannot be used in female patients who are or may become . There is an extremely high risk that defects will result if occurs while taking isotretinoin in any amount, even for a short period of time. Patient expresses understanding of all of the above and is in agreement with treatment plan. Patient to continue isotretinoin 40mg BID Related Medications tretinoin (Retin-A) 0.025 % cream Apply a thin layer to affected areas every third night, increase to nightly as tolerated. ISOtretinoin (Accutane) 40 MG capsule Take 1 capsule by mouth in the morning and evening with food. Orders Placed This Encounter Medications triamcinolone (Kenalog) 0.1 % ointment Sig: apply to lips BID x 5-7 days then prn flares. Dispense: 30 g Refill: 0 FOLLOW UP: Follow up in about 4 weeks (around 07/31/2023) for Iso f/u. Marie Larios PA-C 07/03/23 11:59 AM documented in this encounter [facility] 07-01-2023 Telephone encounter Note S: reliability technicians/[facility] spoke with CAC nurse regarding urgent /critical lab. Potassium level reported 2.5 (Normal level 2.5-5.1) per the laborer laboratory. B: Onset of symptoms/concern critical lab notification Per patient was told to go lab for these orders. Yesterday or Today. States she is on daily KCL 20 meq take daily for the diuretic replacement Hydrochlorothiazide. States she had this lab work was required for a blood work test to continue on her prescribed Claravis Isotretinoin (Accutane) 40 mg capsules. A: Labs were ordered By Charo Larios 04/24/23 but was told to have it drawn this weekend. K+ is critical at 2.5 (3.5-5.1) Her PCP is Dr.. Canelo Bell ([facility]) R: Paging urgently Dr Radha Hanley for the critical K+ 2.5 Dr. Hanley advised she will need to follow up with her primary care physician if over the weekend any palpitations, chest pain, shortness of breath will need to go to the Emergency Department. Also advised to add banana and other foods high in potassium for this critical low. Per Dr Hanley, advised to route to Dr Chavez and also Aretha Larios. Notify patient. 20:04 CAC RN calling to notify of the low Potasium. And Dr Chavez directives. Patient understands care advice. Pt. Has noticed more legs cramps at evening time No further needs at this time. Patient instructed to call back with new or worsening symptoms. Reason for Disposition Lab or radiology calling with CRITICAL test results Protocols used: PCP Call - No [id number] [facility] 06-28-2023 Instructions Susana Miller MD - 06/28/2023 11:47 AM EDT Images from the original note were not included. Start Go to Sleep! which is a 6 week online program for cognitive behavior therapy for insomnia. The cost is $40. Use www.[email or web address] which to access the [facility] Wellness website to purchase the program ( go to Shop, and then Wellness Programs, and the find the Go! To Sleep product). --Referral for Cognitive Behavioral Therapy for Insomnia (CBT-I). Pacheco Suggs Roth. Call [phone] to schedule Good Sleep Hygiene 1. Wake up at the same time every day, even on the weekends. 2. Use your bed for sleep and intimacy only. 3. If you have been in bed awake for 30 minutes, get up and leave the bedroom. Choose a dull activity not involving a blue screen (TV, computer, handheld devices). Go back to bed when you feel sleepy. 4. Avoid caffeine, nicotine and alcohol before you go to bed. 5. Avoid large meals before you go to bed. 6. Exercise regularly, but do not exercise right before you go to bed. 7. Avoid daytime naps. If you do take a nap, sleep for 20-40 minutes, and not after dinner. Patients with insomnia may associate their bed and bedroom with the fear of not sleeping or other arousing events, rather than the more pleasurable anticipation of sleep. The longer one stays in bed trying to sleep, the stronger the association becomes. This perpetuates the difficulty falling asleep. Stimulus control therapy is a strategy whose purpose is to disrupt this association by enhancing the likelihood of sleep . Patients should not go to bed until they are sleepy and should use the bed primarily for sleep (and not for reading, watching television, eating, or worrying). They should not spend more than 20 minutes in bed awake. If they are awake after 20 minutes, they should leave the bedroom and engage in a relaxing activity, such as reading or listening to soothing music. Patients should not engage in activities that stimulate them or reward them for being awake in the middle of the night, such as eating or watching television. In addition, they should not return to bed until they are tired and feel ready to sleep. If they return to bed and still cannot sleep within 20 minutes, the process should be repeated. An alarm clock should be set to wake the patient at the same time every morning, including weekends. Daytime naps are not allowed GO! to Sleep Instructions Your health care provider has recommended GO! to Sleep, a six-week online program developed by experts at the [facility]. GO! to Sleep follows a similar treatment plan to those used at the [facility] Sleep Disorders Center and other [facility] sleep clinics. How It Works The program uses proven methods to help you improve your sleep from the comfort and privacy of your own home. A recent study in the journal SLEEP found that 81 percent of patients who completed a five-week online program for insomnia reported improvement in sleep. What You Get Starting in Lesson 1, you will begin keeping a daily online sleep log. Each day after you fill out your log, you will get a sleep score. Based on your sleep log information and sleep score, you will receive individualized feedback and daily sleep-improvement recommendations. In addition, you will learn the basic science of sleep and why certain behaviors can be detrimental to your sleep. You will also be given activities to help you get the sleep you need, educational articles to help you get the most out of the program, motivational tips, and personalized progress charts. Plus, you will receive six specially crafted audio relaxation practices that will help you manage stress and improve your sleep. Who It's For GO! to Sleep was designed for those experiencing short-term insomnia (development of insomnia in the past one to six months) as well as people with ongoing difficulties with insomnia (six months or longer). If you use sleep medication on an occasional basis, the program will help you learn techniques that will likely help you sleep better without medication. Although GO! to Sleep was not designed for people who take prescription sleep medications on a nightly basis, you can follow the program while on sleep medication and learn tools to help you discontinue medication use. However, the program is not intended to help you implement a plan specifically to taper off your medication. If you are looking for this type of help, discuss this with your prescribing provider and/or ask for a referral to the [facility] Sleep Disorders Center for further assessment and an individualized treatment plan. Additionally, if you feel that depression, anxiety or a recent traumatic event may be causing or contributing to your poor sleep, you may want to consult with a mental health professional. The [facility] offers sleep specialists who can help patients taper off medications as well as mental health experts who can help with contributing factors of insomnia. For additional information about this option, call [phone]. The program in on the URL: https://fairviewSensee with the specific link being: https://[employer].fairviewSkimbl/collections/online-progra ms/products/zz-lp-fkhps-online BEFORE GETTING INTO BED: -Establish a regular routine for bedtime. -Create a positive sleep environment. -Relax before getting into bed. -Avoid alcohol, smoking, caffeine for at least a few hours before bedtime. -Do not go to bed unless you are sleepy. WHILE IN BED: -Turn your clock around (or cover it) and use your alarm if needed. - If you can't fall asleep in 20 minutes (based on your internal sense of time), get out of bed and do something relaxing or boring (reading, listening to music, etc). Return to bed only when sleepy. -Use your bed only for sleep. N THE MORNING AND DURING THE DAYTIME: -Wake up at the same time every morning, even on weekends. -Avoid naps during the day. -Avoid caffeinated beverages and food in the evening. -Exercise regularly but not within 4 hours of bedtime. WHILE IN BED: -Turn your clock around (or cover it) and use your alarm if needed. - If you can't fall asleep in 20 minutes (based on your internal sense of time), get out of bed and do something relaxing or boring (reading, listening to music, etc). Return to bed only when sleepy. -Use your bed only for sleep. IN THE MORNING AND DURING THE DAYTIME: -Wake up at the same time every morning, even on weekends. -Avoid naps during the day. -Avoid caffeinated beverages and food in the evening. -Exercise regularly but not within 4 hours of bedtime. Please get iron studies checked, perform these tests while fasting. - Avoid driving when drowsy. Recommend that if you are dozing off while driving, that you do not drive until your sleepiness is appropriately treated. documented in this encounter [facility] 06-28-2023 History of Present illness Narrative Images from the original note were not included. [facility] Virtual Visit Follow up/ Established patient visit Date of last visit : 03/2023 I have communicated my name and active licensure. The patient's identity and physical location were verified at the time of this visit. Either the patient or their legal community health representative has been informed of the risks and benefits of -- and alternatives to -- treatment through a remote evaluation and consents to proceed with the evaluation remotely. Interval history : Patient refused to talk to me did not want to wait long for her appointment Similar incidence with Andry Jc PA-C last month I'm finishing this note and encounter on behalf of Dr. Miller while observing the encounter. Here for follow up for MICHELLE, post PAP titration study PSG 12/2022 consistent with an AHI of 6.6 with supine AHI of 6.9 with SPO2 to of 86%, PAP titration 03/2023 At a PAP setting of 8 cmH2O, during which REM sleep was, but supine sleep was not recorded, the apnea-hypopnea and arousal indices were normalized, snoring was eliminated, and the oxygen saturation was maintained above 83%, with a mean SpO2 of 93%. On autoPAP 6-10 cmh20 Feels like choking while on CPAP So has not been able to use it Per chart review: INSOMNIA: - She states that she takes Atarax 50 mg and Clonidine 0.1 mg for sleep. She started these through her PCP and refilled through her PCP. She takes these medications nightly. - Take one tablet of Atarax and Clonidine nightly. - She was informed of the need to stop taking through her PC recommendations. Is established with pain clinic for chronic pain and central somatization syndrome SLEEP HYGIENE: Bedtime: 12 AM (falls asleep) Wake up Time: 9-10:30 AM. Time it takes to fall sleep: Takes (Hydroxyzine/Clonidine/Lyrica/Lonny axin) 9-10:30 PM and it takes "a couple hours to fall asleep." Number of times patient wakes up per night: 10 times. Reason (s) why patient wakes up during the night: Nocturia (the typical cause). Estimated total sleep time ( in a 24 hour period of time): 5-6 hours. Naps: Yes, 5-6 times a day, 1-4 hours, not refreshing. PATIENT-ENTERED QUESTIONNAIRE SLEEP SCORES 06/28/2023 Sleep Questions Reason for visit: Sleep apnea Difficulty falling or staying asleep or poor sleep quality Excessive daytime sleepiness Abnormal sleep/wake timing Abnormal behaviors/movements during sleep Accidents or near accidents due to drowsy drivin 03/14/2023 04/27/2023 06/28/2023 [place] Sleepiness Scale Score 10 (No daytime sleepiness) 10 (No daytime sleepiness) 12 (present daytime sleepiness) 03/14/2023 04/27/2023 06/28/2023 PROMIS CAT Sleep Disturbance PROMIS Sleep Disturbance T-Score 69 (moderate) 70 (moderate) 72 (severe) PROMIS Sleep Disturbance Percentile 3 2 1 03/14/2023 04/27/2023 06/28/2023 Insomnia Severity Index Score 23 27 24 12/29/2022 04/27/2023 06/28/2023 Restless Leg Syndrome Score 16 12 22 06/28/2023 04/14/2023 03/27/2023 PHQ-9 Score 8 6 7 12/29/2022 03/14/2023 06/28/2023 PROMIS Global Health - (T-Scores - the mean of general population = 50. Five points is a clinically meaningful difference.) Physical T-Score 29.6 29.6 23.5 Mental T-Score 43.5 43.5 33.8 ALLERGIES Allergen Reactions Amitiza [Lubiprosto* Rash Amoxicillin Rash Cipro [Ciprofloxaci* GI Upset Clindamycin Intolerance Her whole body felt hot and she had abdominal pain Contact Metal Agent Rash Doxycycline GI Upset Epinephrine Other: See Comments Tremors, body aches, palpitations Flagyl [Metronidazo* GI Upset Nausea. Able to tolerate with anti-emetics Naproxen GI Upset Headache/GI upset Nickel Rash Penicillins Hives Sulfa (Sulfonamide * Other: See Comments It is like the flu x 10 Sulfamethoxazole-Tr* Other: See Comments CURRENT MEDICATIONS: CPAP/BIPAP/OTHER Type .CPAPSettings into a note to see current settings/supplies/DME information. acyclovir (ZOVIRAX) 400 mg tablet Take 2 tablets by mouth once daily. MYRA FE 04/01, , 1 mg-20 mcg (21)/75 mg (7) per tablet Take 1 tablet by mouth once daily. Take active pills only - skip placebo pills. imiquimod (ALDARA) 5 % cream Apply to affected area Monday, Monday, and Monday. CPAP/BIPAP/OTHER AutoCPAP 6-9 cmH20. DME: [employer]. SEMAGLUTIDE ORAL Take by mouth. 10 units sc once weekly iv contrast (will be provided with radiology test) MRI sacral plexus Inj, intravenously, once for 1 dose. No IV access, insert saline lock prior to the beginning of sedation, infusion, injection of imaging exam. Discontinue saline lock post exam. If Pt. has a central line or IVAD, may access for administration according to line specific nursing protocol. Once exam is complete flush line and de-access according to line specific nursing protocol in the MR contrast administration guidelines link. ZUBSOLV 2.9-0.[address] 2 (TWO) TABLETS UNDER THE TONGUE EVERY DAY naloxone 4 mg/actuation nasal spray (NARCAN) (Patient not taking: Reported on 04/14/2023) polyethylene glycol 3350 (MIRALAX) 17 gram/dose powder Take 17 g by mouth three times daily as needed for constipation. Dissolve dose in 4 - 8 ounces of liquid and take as directed. hydroCHLOROthiazide 12.5 mg capsule Take 12.5 mg by mouth once daily. pregabalin (LYRICA) 100 mg capsule Take 100 mg by mouth three times daily. ezetimibe (ZETIA) 10 mg tablet Take 10 mg by mouth once daily. hydrOXYzine HCl (ATARAX) 50 mg tablet TAKE 1 TO 2 TABLETS FOUR TIMES DAILY NEEDED FOR ANXIETY omeprazole magnesium (PRILOSEC ORAL) Take by mouth. cloNIDine HCl (CATAPRES) 0.1 mg tablet (Prior Auth#:[id number]) methocarbamol (ROBAXIN) 750 mg tablet Take 750 mg by mouth four times daily as needed. acetaminophen (TYLENOL ARTHRITIS PAIN ORAL) Take by mouth three times daily as needed. ibuprofen (MOTRIN) 600 mg tablet Take 1 tablet by mouth every 6 hours as needed. FOR PAIN. Prior RLS Medications (last 20 years) 04/01/2021 23:59 RLS Medications tramadol HCl 50 mg q 4 H PRN ORAL -Discontinued (Therapy comp) No sig Details Outpatient prescription Prior Insomnia Medications (last 20 years) 11/07/2022 11:44 Insomnia Medications midazolam HCl/PF 3 mg ONCE INTRAVENOUS -Completed Details Clinic-administered medication IMPRESSION/PLAN: Michelle (obstructive sleep apnea) (primary encounter diagnosis) Opioid dependence with withdrawal ([facility]) Rls (restless legs syndrome) Insomnia, unspecified type Reviewed previous sleep test results. Untreated sleep apnea is associated with a variety of consequences, including, but not limited to hypertension, heart disease, stroke, obesity, and daytime sleepiness that can affect normal daytime functioning. Because of these consequences, treatment of sleep apnea is recommended. She was not receptive to accepting that sleep apnea needed to be addressed as she wanted to focus more on her insomnia management during this visit. She was observed to be vaping continuously through the visit, and felt that addressing the nicotine dependence would not be possible at this point. She was counseled in regards to the adverse effects of nicotine on sleep architecture. Unable to tolerate CPAP 6- 10 cm h20 so she has not been complaint with CPAP but believes with mask refitting she will be able to do better. We discussed the role of Pap nap therapy, she would like to defer at this point. Her RLS is controlled at this time as she is on Lyrica. 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 Paul Saleh MD I have personally seen and evaluated the patient and agree with the documentation by the fellow as above, which I have edited where appropriate. Susana Miller MD,[facility] Staff Neurologist [facility] I have communicated my name and active licensure. The patient's identity and physical location were verified at the time of this visit. Either the patient or their legal community health representative has been informed of the risks and benefits of -- and alternatives to -- treatment through a remote evaluation and consents to proceed with the evaluation remotely. I spent a total of 25 minutes on the date of the service which included preparing to see the patient, [id number] patient care, performing a medically appropriate examination, counseling and educating the patient/family/caregiver and ordering medications/devices documented in this encounter [facility] 06-27-2023 Miscellaneous Notes PA faxed to pt's insurance. Will await further response from insurance. Yany Trujillo LPN Paper PA completed and placed on providers desk for signature. Yany Trujillo LPN A PA was never received, attempted to initiate PA and received message that Product code incorrect. Spoke with on line assistance and paper form being faxed to office, once received will complete and fax to pt's insurance. Yany Trujillo LPN Printed and placed in Violeta's mailbox to check on status. Ginger Lazcano RN Have we received anything on the prior auth? Ramona Slade APRN.JOSE GUADALUPE documented in this encounter [facility] 06-23-2023 History of Present illness Narrative [facility] [place] June 23, 2023 Ketamine Infusion Shared Medical Appointment This visit was conducted as a face to face shared medical appointment visit. SUBJECTIVE: Maria T Wynne is a 28 year old year old presenting for shared medical appointment for severe chronic pain. They have been referred to this shared medical appointment to prepare for ketamine infusions. This patient has severe chronic pain that is interfering with their daily life. Since they have tried multiple previous treatments without significant benefit. Risks, benefits, and alternatives of ketamine were discussed including side effects and management as well as the protocol we use in our infusions. There were no new reported medical problems including heart problems, liver problems, or allergies. Group members were provided education about behavioral pain medicine. They learned the difference between acute and chronic pain, what the pain cycle is, and how behavioral pain medicine can be helpful in managing pain. They were provided information on the behavioral pain medicine services available within the [facility]. OBJECTIVE: PHYSICAL EXAM: BP 105/70 (BP Site: Left Arm, BP Position: Sitting, BP Cuff Size: Regular Adult) Wt 87.5 kg (192 lb 14.4 oz) LMP (LMP Unknown) BMI 38.96 kg/m GENERAL APPEARANCE: Well appearing, well-hydrated, well nourished and alert NEURO/PSYCH: cranial nerves 2-12 intact, speech normal, mental status intact ASSESSMENT: Central Sensitization Syndrome Chronic Pain Syndrome PLAN: Proceed with ketamine infusions as scheduled Discussed importance of submitting any forms Continue to stay active as possible Continue current pain related medications Follow up with primary pain doctor Rach Donald MD documented in this encounter [facility] 06-12-2023 Miscellaneous Notes See 06/10/23 mychart message encounter. Ginger Lazcano RN My apologies for any confusion. We do not cut or burn them off in the office. They can come back or spread and they are difficult to remove completely. Also, they often will regress on their own. We can treat them with TCA treatments in the office, or she can get a medication to put on them. I will warn her that the medication likely will not be covered by her insurance. She could consider seeing a em physician to see if they would do laser therapy to remove them but no providers in our office do laser therapy. Often, unfortunately, treatment is often considered cosmetic and not covered. Milka Mcguire MD Patient notified and states she is very upset as she was told that she would be able to have them cut off. Patient states she has been misdiagnosed for 5 years and now she has a bigger problem and the warts are on the inside of her vagina. Patient wanting to know if any of the doctors would be willing to cut them off. Yumiko Encarnacion RN No I don't do that especially for the area her are in. Not sure if on of the doctor would cut them off. Ramona Slade APRN.CNP Patient notified. States she will not do the TCA treatment. States it was discussed that RM could either "cut" or "burn" off. Are these options with you in office? Neeru Pena, RN Please let the pt know that the lesion are genital warts, if she wants to do TCA treatment she can schedule an appt. Ramona Slade APRN.CNP documented in this encounter [facility] 06-07-2023 Telephone encounter Note Medication: Dupixent 300mg/2ml Pen Injector Dosing Schedule: 300mg once every other week Prior Authorization: Submitted date: 06-07-23 PA reference #:[id number] Approval dates: 06-07-2023-06-05-2024 Total Copay: $ 0 Specialty Pharmacy: [email or web address] 06-07-2023 Miscellaneous Notes Medication: Dupixent 300mg/2ml Pen Injector Dosing Schedule: 300mg once every other week Prior Authorization: Submitted date: 06-07-23 SC reference #:[id number] Approval dates: 06-07-2023-06-05-2024 Total Copay: $ 0 Specialty Pharmacy: [email or web address] documented in this encounter [facility] 06-01-2023 History of Present illness Narrative Attendance Secretary offered: Patient declines. Maria T Wynne is a 28 year old female who presents today for a vulvar biopsy. Indication: persistent pruritis. UNIVERSAL PROTOCOL / SAFETY CHECKLIST Procedure to be Performed: vulvar biopsy Sign In: A Moment of CARE was completed. Personnel directly involved with the procedure wore the appropriate PPE (Personal Protective Equipment). Patient/Surrogate Stated/Verified: PATIENT VERIFIED(optional for EMERGENT procedures): Patient name, Date of , Relevant allergies, and The intended procedure Time Out Communication: Intended patient and procedure match the source documents. Consent documented and matches the intended procedure. Sign Out: SIGN OUT (optional for EMERGENT procedures): All specimen containers correctly labeled. No instruments, equipment or retained foreign bodies applicable. Post-procedure follow-up management communicated and Plan of Care Visit completed when applicable. Yany Trujillo LPN PROCEDURE NOTE: GROSS LESIONS: Yes, ? Warts vs skin tags BIOPSY: Area was cleansed with betadine and anesthetized with 1.5 mL 1% lidocaine with 1:100,000 epi. 3mm [place] punch used to biopsy region. HEMOSTASIS: Obtained with silver nitrate and pressure Procedure Summary: Patient tolerated procedure well. ASSESSMENT: vulvar irritation PLAN: Specimens labeled and sent to Pathology. Will notify patient of results in 1-2 weeks. Post-procedure instructions reviewed and written material given to the patient. Ramona Slade APRN.MORTARMAN documented in this encounter [facility] 05-30-2023 Miscellaneous Notes Faxed order, office notes, demographics, and sleep study to: DAVE name: JAMAAL ACOSTA fax: [phone] DAVE ph: documented in this encounter [facility] 05-30-2023 History of Present illness Narrative DATE OF SERVICE: 05/30/2023 PATIENT NAME: Maria T Wynne : 1995 AGE: 28 y.o. CLINIC NUMBER: [id number] Visit type: Established patient Chief Complaint Patient presents with Acne LV 04/24/23 w/ Marie Larios PA-C () Subjective HISTORY OF PRESENT ILLNESS: This is a 28 y.o. female who presents for F/u-acne; last seen 04/24/23. Unchanged since last visit. Patient is currently on isotretinoin 40 mg BID x 2 months month. Start date 03/16/23. C/o bumps around vaginal area x years. Admits itching. Denies bleeding and pain. Admits coming and going. Patient had them looked at by [employer] in the past and said they weren't anything. Interim History: Tolerating medication well. Patient does complain of dry lips. Patient does not complain of nosebleeds. The patient denies headaches, visual changes, photosensitivity, muscle/joint pains, fatigue, nausea/vomiting, diarrhea, abdominal pain, rectal bleeding, hair loss, and mood changes including: depression, increased feelings of anger, and suicidal ideations. [email or web address] # [id number] Pt two forms of contraception are OCP and Male latex condoms. Labs ordered 04/24/23. Reprinted for patient to have completed at outside lab. Patient never completed test last month so she was not able to roller picker rx. . Are you , trying to become or ? No History of pacemaker/ defibrillator? No History of HIV/ Hep C? No Allergies to Lidocaine, Epinephrine, Latex or Adhesive? No Review of Systems There were no vitals filed for this visit. PHYSICAL EXAM GENERAL APPEARANCE:?Alert & oriented x3, pleasant. Well developed, well nourished. PSYCH: appropriate mood and affect DERMATOLOGY: (all measurements are in cm, unless otherwise noted) 1. Acne vulgaris Head - Anterior (Face) Scattered acneiform papules [x]Chronic []Acute []Stable [x]Flaring/Exacerbation Educated and reassured. Treatment options, risks, benefits, and expectations reviewed. Improved on Isotretinoin. Patient currently not at goal. Target dose (0.5-1.0 mg/ kg/day or 120-150mg/kg total): 10,032-12,540 mg. Dose to date: mg x days= 2,400 mg Pt [email or web address] ID# [id number]. Pt two forms of contraception are OCP and Male latex condoms. HCG/ urine completed. Patient kicked out of [facility]. Never picked up last prescription. Never completed blood hcg test. Reviewed with patient the importance of calling office to inform staff of when and where labs are drawn if ordered. Pt advised that if labs drawn in any location other than in-house lab, results are not automatically sent to ordering provider. Educated that if office does not obtain labs within time sensitive window, patient may be discharged from [facility] and may have delay in picking up medication. Once labs are reviewed our office will call to inform Pt of the results, at that time Pt will need to log on to the [email or web address] system to answer the required questions. After that has been completed Pt will need to roller picker the prescription from the pharmacy. Reminded that the prescription expires 7 days from the date of the test. If experiencing nasal dryness, recommend that patient use a humidifier in bedroom while sleeping, as well as use normal saline solution, and Vaseline inside the nose to help ease the dryness which may cause nosebleeds. Recommend aquaphor, vaseline, or other dye/fragrance free lip balms to the lips for dryness and avoid licking the lips. Lubricating eye drops like Genteal for dry eyes, avoid contact lenses. Patient counseling: reviewed importance of compliance with the treatment plan including but not limited to: Lab testing (blood work) when indicated. Patient must AVOID . Two forms of contraceptive methods are reviewed. Monthly testing. Do not take vitamin supplements and avoid herbal supplements. Patient cannot donate blood. Do not share this medication with anyone. Avoid alcohol consumption. Avoid use of Acetaminophen. Avoid cosmetic procedures or waxing while taking this medication. Patient reminded of sun sensitivity. SAFETY NOTICE: Isotretinoin, otherwise known as Accutane, cannot be used in female patients who are or may become . There is an extremely high risk that defects will result if occurs while taking isotretinoin in any amount, even for a short period of time. Related Procedures POCT , urine manually resulted Related Medications tretinoin (Retin-A) 0.025 % cream Apply a thin layer to affected areas every third night, increase to nightly as tolerated. ISOtretinoin (Accutane) 40 MG capsule Take 1 capsule by mouth in the morning and evening with food. 2. Encounter for long-term current use of high risk medication Patient completed in office hcg. Will need to complete in 1 month to restart back on [employer] Related Procedures POCT , urine manually resulted Related Medications ISOtretinoin (Accutane) 40 MG capsule Take 1 capsule by mouth in the morning and evening with food. 3. Genital warts (2) Mons Pubis (2) Verrucous papule(s) Patient informed that warts are caused by human papillomavirus (HPV). The virus likely entered the skin through a small cut or lesion on the skin. Warts are contagious and spread by direct contact or touching contaminated objects like towels, public showers, direct contact with warts, etc. Cryotherapy performed today. Explained to patient that he/she may develop blisters at treated sites. Patient expresses understanding and is agreeable to plan. Cryotherapy: Indication(s): Condyloma. Medical Necessity: Patient was informed warts are caused by a virus, and there is a risk of spreading. It's possible for warts to recur even after treatment. Number treated/ location: mons pubis x 2. Consent: The patient understood all the risks and benefits prior to treatment. The risks explained included scarring, hyper and/or hypo pigmentation. Although this treatment is highly effective, recurrences do occur and this was explained to the patient. Method: The wart(s) were treated with liquid nitrogen times two freeze-thaw cycles. Post-op: instruction: The patient was instructed to clean the site twice a day. Signs of infection were discussed. The patient was informed to call if any signs of infection develop such as increasing pain, purulent drainage or beefy redness. The patient was informed that a blister may occur at the cryo site and that this is an expected event. Post-op instructions were given orally and in writing. 4. Milia Mons Pubis Firm white papule Reassured and educated, benign finding. Follow up in about 4 weeks (around 06/27/2023) for iso month 4. Marie Larios PA-C 05/30/23 3:44 PM documented in this encounter [facility] 05-29-2023 Miscellaneous Notes Patient called office and is asking for her pressures to be decreased. She said the pressures are too high, hard to breathe, and is suffocating. She is having issues with her mask and headgear and [employer] is sending out new headgear. She had no problems with the pressures in her PAP titration and was told the current setting are the same as the study. She was set up on 05/25/23 with Lenore and her date is not showing in [employer] yet. Images from the original note were not included. documented in this encounter [facility] 05-16-2023 Miscellaneous Notes MyChart message sent Filed the order for the CPAP. Can we please ensure that she is aware of the below insurance requirements and need for follow up, please make with sleep physician. INSURANCE REQUIREMENTS: - Your insurance requires a [id number] follow up visit within a 31-90 day period after starting CPAP. - Your insurance requires compliance with CPAP, which is at least 4 hours per night for 70% of the time. This must be done over a 30 day period and must occur within the initial 31-90 day period after starting CPAP. - Your insurance also requires at least yearly follow ups to continue to pay for CPAP supplies. Tali Boggs PA-C Message forwarded to sleep department provider for review of pended CPAP order. Patient decided on DME [place] [id number] Okay, she stopped me and didn't want to talk about the pap titration. If she wants to start the PAP I can send the device over to her through a DME. Is she open to this, if so I will send the order and insurance requirements? Thank you! Tali Boggs PA-C Message forwarded to sleep department providers for review. documented in this encounter [facility] 05-16-2023 Miscellaneous Notes Faxed order, office notes, demographics, and sleep study to: DME name: JAMAAL ACOSTA fax: [phone] DME ph: [phone] documented in this encounter [facility] 05-15-2023 Miscellaneous Notes Please schedule her with me and I will do biopsy of the sites. Ramona Slade APRN.JOSE GUADALUPE Patient seen 04/14/23 documented in this encounter [facility] 04-28-2023 History of Present illness Narrative Images from the original note were not included. [facility] PSYCHOLOGICAL FOLLOW-UP April 28, 2023 Maria T Wynne CPT Code: [id number] Virtual Psychotherapy 38-52 minutes 9:07-9:55am Session #: 1 Due to the [facility] and [facility] and the need for ongoing mental health services, the following visit was completed virtually to reduce the risk of COVID-19 exposure. Consent related to virtual visits was provided verbally after information was sent via [employer] or read to patient if [employer] not available. I have communicated my name and active licensure. The patient's identity and physical location were verified at the time of this visit. Either the patient or their legal community health representative has been informed of the risks and benefits of -- and alternatives to -- treatment through a remote evaluation and consents to proceed with the evaluation remotely. Patient is in the state of [place] during our call PsyPACT: I am authorized to practice either (1) interjurisdictional telepsychology under Authority to Practice Interjurisdictional Telepsychology (APIT) or (2) temporary in-person, [id number] practice for up to 30 days a calendar year in each [facility] state under Temporary Authorization to Practice (TAP). Subjective: Patient presents in follow up for abdominal pain, nausea, and alterations in bowel habits. She reports her physical health has been much worse in these last couple of weeks, exacerbated by uncertainty about what is going on with her body. She describes diffuse symptoms including unexplained weight gain, general malaise. Since starting the semaglutide, she has felt ill much of the time with increased nausea and loss of appetite. She had been encouraged by her weight loss clinic to try to eat small meals more frequently. She was encouraged to bring up these symptoms with the weight loss clinic again due to the risk of further impaired gastrointestinal dysmotility and symptoms such as nausea/vomiting. Conducted session 1 of gut-directed hypnotherapy for abdominal pain using wave of medication imagery. Patient reported it was somewhat difficult to relax based on the position she was in (in a chair without a lot of head/neck support). Patient experience was affirmed and we will monitor progress as she has more practice in different positions. Patient was provided the audio recording from today's session and encouraged to practice at least 5x/week. Objective: Patient was seen virtually The patient was casually attired. She was cooperative with the interview process. The patient had good eye contact. Appearance: Casually dressed Behavior: Patient was vaping during our session Social Relatedness: Appropriate for age and developmental level Speech: The patient demonstrates appropriate tone, prosody, ag, phonetics, and syntax Mood:Irritable Affect: Full and appropriate to topic Thought Content: The patient displays thought content appropriate to the interview. Thought Process:The thought process is appropriate for situation Hallucinations: No perceptual disturbances Delusions: No delusional thinking is evident Suicidal Ideas/Plans: The patient denies suicidal ideation, intent or plan Homicidal Ideas/Plans: Patient denies any homicidal ideation, plan or intent at this time. Anxiety: The patient demonstrates generalized anxiety Orientation: Person, Place, Time and Situation Memory: Recent intact, Remote intact, and Immediate intact Concentration: Good Attention: The patient demonstrated full attention and focus throughout the interview Fund of Knowledge: Appropriate for age and developmental level Judgment: Demonstrates age appropriate judgment Insight: demonstrates fair insight The patient's motivation for treatment was judged to be good. Assessment: Patient Data Generalized Anxiety Disorder Scale (SHAKA-7) SHAKA - 7 SCORES 10/05/2022 11/08/2022 04/14/2023 SHAKA-7 Score 19 6 5 (0-4) minimal anxiety, (5-9) mild anxiety, (10-14) moderate anxiety, (15-21) severe anxiety Patient Health Questionnaire (PHQ-9) PHQ-9 03/14/2023 03/27/2023 04/14/2023 Score 6 7 6 (0-4) minimal depression, (5-9) mild depression, (10-14) moderate depression, (15-19) moderately severe depression, (20-27) severe depression PROMIS Global Health PROMIS Global Health - (T-Scores - the mean of general population = 50. Five points is a clinically meaningful difference.) 10/05/2022 12/29/2022 03/14/2023 Physical T-Score 29.6 29.6 29.6 Mental T-Score 33.8 43.5 43.5 Current Outpatient Medications Medication Sig Phendimetrazine Tartrate 35 mg tab Take 35 mg by mouth two times a day. OTC PRODUCT Phendi 35 mg three times daily po SEMAGLUTIDE ORAL Take by mouth. 10 units sc once weekly levothyroxine (SYNTHROID) 25 mcg tablet TAKE 1 TABLET BY MOUTH EVERY DAY IN THE MORNING on an empty stomach 30 MINUTES before other things or 2 (TWO) hours after other things (Patient not taking: Reported on 04/14/2023) iv contrast (will be provided with radiology test) MRI sacral plexus Inj, intravenously, once for 1 dose. No IV access, insert saline lock prior to the beginning of sedation, infusion, injection of imaging exam. Discontinue saline lock post exam. If Pt. has a central line or IVAD, may access for administration according to line specific nursing protocol. Once exam is complete flush line and de-access according to line specific nursing protocol in the MR contrast administration guidelines link. ZUBSOLV 2.9-0.[address] 2 (TWO) TABLETS UNDER THE TONGUE EVERY DAY naloxone 4 mg/actuation nasal spray (NARCAN) (Patient not taking: Reported on 04/14/2023) MYRA FE 04/01, , 1 mg-20 mcg (21)/75 mg (7) per tablet Take 1 tablet by mouth once daily. Take active pills only - skip placebo pills. baclofen 10 mg lidocaine 50 mg vaginal suppository (CPD) Use 1 Suppository vaginally daily at bedtime. Unwrap and insert as directed. polyethylene glycol 3350 (MIRALAX) 17 gram/dose powder Take 17 g by mouth three times daily as needed for constipation. Dissolve dose in 4 - 8 ounces of liquid and take as directed. hydroCHLOROthiazide 12.5 mg capsule Take 12.5 mg by mouth once daily. acyclovir (ZOVIRAX) 400 mg tablet TAKE 2 TABLETS BY MOUTH DAILY pregabalin (LYRICA) 100 mg capsule Take 100 mg by mouth three times daily. ezetimibe (ZETIA) 10 mg tablet Take 10 mg by mouth once daily. hydrOXYzine HCl (ATARAX) 50 mg tablet TAKE 1 TO 2 TABLETS FOUR TIMES DAILY NEEDED FOR ANXIETY omeprazole magnesium (PRILOSEC ORAL) Take by mouth. cloNIDine HCl (CATAPRES) 0.1 mg tablet (Prior Auth#:[id number]) methocarbamol (ROBAXIN) 750 mg tablet Take 750 mg by mouth four times daily as needed. acetaminophen (TYLENOL ARTHRITIS PAIN ORAL) Take by mouth three times daily as needed. ibuprofen (MOTRIN) 600 mg tablet Take 1 tablet by mouth every 6 hours as needed. FOR PAIN. No current facility-administered medications for this visit. Diagnoses: (F06.4) Anxiety 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 (primary encounter diagnosis) (R10.2, G89.29) Chronic pelvic pain in female (N94.6) Dysmenorrhea (K58.1) Irritable bowel syndrome with constipation Plan/Recommendations: -Continue [facility] Number of weeks till next appointment: TBD. Supervising Licensed Psychologist & Billing Provider: Brittney Garcia PSYD documented in this encounter [facility] 04-27-2023 History of Present illness Narrative The patient presents today for appointment to go over sleep results from PAP titration. She was upset at the appointment and states that she needs to see a sleep physician to discuss medication to help with sleep. She declined going over the PAP titration and states she already met with me once and that she doesn't want to meet with me and wants to see a sleep physician to discuss medications and not to go over the PAP titration study. She declined today's appointment. PLEASE HELP ARRANGE WITH SLEEP PHYSICIAN AT SOONEST AVAILABILITY. Dr. Miller is established with the patient. If possible with Dr. Wetzel and fellow clinic, however she will require 40 minute new patient slot. Thank you. Tali Boggs PA-C The appointment was cancelled for this patient. Tali Boggs PA-C documented in this encounter [facility] 04-25-2023 Miscellaneous Notes Spoke with the patient to inform her that moved her to the latest spot they could on 10/03/23 at 1pm for surgery with a 90min before arrival time of 11:30am, pt verbalized understanding Spoke with patient and scheduled pre & post op appts and informed pt teaching appt will not appear on [employer]; pt was concerned about arrival time for surgery due to certain medications she takes and when she gets up, I informed the pt I will reach out to regarding her surgery being the latest it can be and she would need to reach out to a nurse or Dr Vergara regarding her medications, pt verbalized understanding and said she will send a [employer] message Left message for patient to call back to schedule pre & post op appts Spoke with patient and she accepted 10/03/23 surgery date at , would like sooner if it becomes available, pt asked that I call tomorrow to schedule pre/post op appts documented in this encounter [facility] 04-24-2023 History of Present illness Narrative DATE OF SERVICE: 04/24/2023 PATIENT NAME: Maria T Wynne : 1995 AGE: 28 y.o. CLINIC NUMBER: [id number] 3:33 PM Chief Complaint Patient presents with Acne (LMS) Verbal consent was received from the patient/parent to do telemedicine/ virtual visit. Subjective Maria T Wynne is a 28 y.o. who presents on the telephone for a remote visit (as recommended by the [facility] COVID-19 pandemic guidelines). Patient is currently on isotretinoin 40mg BID x 1 month. Start date 03/16/23. Patient recently started new medications for thyroiditis and weight loss medications. Patient states she is on so many meds she doesn't know which ones are causing side effects. Interim History: Tolerating medication well. Patient does complain of dry lips. Patient does not complain of nosebleeds. The patient denies headaches, visual changes, photosensitivity, Admits mild muscle/joint pains. Denies fatigue, nausea/vomiting, diarrhea, abdominal pain, rectal bleeding, hair loss, and mood changes including: depression, increased feelings of anger, and suicidal ideations. [email or web address] REMS ID: [id number] Pt two forms of contraception are 1. OCP and 2. Male latex condoms. Allergies Allergen Reactions Lubiprostone Rash Penicillins Hives, Rash and Other Other reaction(s): Other (See Comments), Unknown Patient states "she gets everything" Ciprofloxacin Hcl Other reaction(s): GI Upset Clindamycin Other reaction(s): Intolerance Her whole body felt hot and she had abdominal pain Doxycycline GI intolerance, Nausea And Vomiting and Other Other reaction(s): GI Upset, Unknown Metronidazole GI intolerance and Nausea And Vomiting Other reaction(s): GI Upset Nausea. Able to tolerate with anti-emetics Nausea Naproxen Other reaction(s): GI Upset Headache/GI upset Other Sulfa Antibiotics Other reaction(s): Other: See Comments It is like the flu x 10 Sulfamethoxazole-Trimethoprim Nausea And Vomiting Other reaction(s): Other: See Comments Tramadol Other reaction(s): Other: See Comments Headache seizure Nickel Rash PMH, allergies, and social history reviewed and updated as appropriate Medication list reviewed/updated Allergies reviewed/updated Problem list reviewed/updated Patient requests medication refills, see below for orders. Patient was seen today via Telehealth by agreement and consent. I used the following Telehealth technology: Audio and video capabilities. Patient location: [place] Patient Location: Home. This patient encounter is appropriate and reasonable under the circumstances: transportation issues and too sick to leave home . The patient has been advised of the potential risks and limitations of this mode of treatment (including but not limited to the absence of in-person examination) and has agreed to be treated in a remote fashion in spite of them. Any and all of the patient's/patient's family's questions on this issue have been answered and I have made no promises or guarantees to the patient. The patient has also been advised to contact this office for worsening conditions or problems, and seek emergency medical treatment and/or call 911 if the patient deems either necessary. The patient stated that they are currently in the [facility]. If the patient is a minor, permission has been obtained by the parent or guardian for the patient to receive medical care at this visit. 1. Acne vulgaris Head - Anterior (Face) Scattered acneiform papules [x]Chronic []Acute []Stable [x]Flaring/Exacerbation - Educated and reassured. Treatment options, risks, benefits, and expectations reviewed. Improved on Isotretinoin. Patient currently not at goal. Patient to continue on Isotretinoin dose 40 mg BID. Target dose (0.5-1.0 mg/ kg/day or 120-150mg/kg total):1 0,032-12,540 mg. Dose to date: mg x days= 2,400 mg Pt [email or web address] ID# [id number] Pt two forms of contraception are 40 and BID. Reviewed with patient the importance of calling office to inform staff of when and where labs are drawn if ordered. Pt advised that if labs drawn in any location other than in-house lab, results are not automatically sent to ordering provider. Educated that if office does not obtain labs within time sensitive window, patient may be discharged from [facility] and may have delay in picking up medication. Once labs are reviewed our office will call to inform Pt of the results, at that time Pt will need to log on to the [email or web address] system to answer the required questions. After that has been completed Pt will need to roller picker the prescription from the pharmacy. Reminded that the prescription expires 7 days from the date of the test. Check labs: HCG CBC CMP lipid panel If experiencing nasal dryness, recommend that patient use a humidifier in bedroom while sleeping, as well as use normal saline solution, and Vaseline inside the nose to help ease the dryness which may cause nosebleeds. Recommend aquaphor, vaseline, or other dye/fragrance free lip balms to the lips for dryness and avoid licking the lips. Lubricating eye drops like Genteal for dry eyes, avoid contact lenses. Patient counseling: reviewed importance of compliance with the treatment plan including but not limited to: Lab testing (blood work) when indicated. Patient must AVOID . Two forms of contraceptive methods are reviewed. Monthly testing. Do not take vitamin supplements and avoid herbal supplements. Patient cannot donate blood. Do not share this medication with anyone. Avoid alcohol consumption. Avoid use of Acetaminophen. Avoid cosmetic procedures or waxing while taking this medication. Patient reminded of sun sensitivity. SAFETY NOTICE: Isotretinoin, otherwise known as Accutane, cannot be used in female patients who are or may become . There is an extremely high risk that defects will result if occurs while taking isotretinoin in any amount, even for a short period of time. Patient expresses understanding of all of the above and is in agreement with treatment plan. Related Medications tretinoin (Retin-A) 0.025 % cream Apply a thin layer to affected areas every third night, increase to nightly as tolerated. ISOtretinoin (Accutane) 40 MG capsule Take 1 capsule by mouth in the morning and evening with food. 2. Encounter for long-term (current) use of high-risk medication Related Procedures CBC auto differential Comprehensive metabolic panel hCG, quantitative Lipid panel FOLLOW UP: Follow up in about 4 weeks (around 05/22/2023) for iso month 2 . Marie Larios PA-C 04/24/23 4:20 PM documented in this encounter [facility] 04-13-2023 History of Present illness Narrative Radiology Service Progress Note DATE OF SERVICE: April 13, 2023 TIME: 1:29 PM PATIENT IDENTITY VERIFICATION COMPLETED USING TWO (2) STANDARD IDENTIFIERS: Name and Date of confirmed by patient verbally. FALL SCREENING: Has the patient had 2 falls in the last year or 1 fall with injury or currently using an Ambulatory Assistive Device (Walker, Cane, Wheelchair, Crutches, etc.)? No PATIENT GENDER DATA: Female. status: : No status: NO. PATIENT RELEVANT IMPLANT DATA REVIEWED: Yes PATIENT PRESENTS WITH AN IMPLANTABLE OR ATTACHED NURSERY SUPERVISOR: No ALLERGIES: Reviewed and unchanged CONTRAST ALLERGY: NO. EXAM: MRI - CONTRAST TYPE: GROUP II PERIPHERAL IV DATA: Ambulatory: A peripheral IV was started in the Right forearm with a Angio cath: 22 gauge. RADIOLOGY DEPARTMENT: MR; Exam(s) Completed: Lower MSK: Pelvis, SACRAL PLEXUS SIGNATURE: RT Kasey(R) PATIENT NAME: Maria T Wynne DATE: April 13, 2023 TIME: 1:29 PM documented in this encounter [facility] 03-31-2023 Note . MICRO - Microbiology PROCEDURE: Urine Culture [*1] SOURCE: Urine, Clean Catch BODY SITE: COLLECTED DATE/TIME: 03/29/2023 16:07 EST RECEIVED DATE/TIME: 03/29/2023 19:40 EST START DATE/TIME: 03/29/2023 19:40 EST FREE TEXT SOURCE: FINAL REPORTS Final Report [] Verified Date/Time/Personnel: 03/31/2023 07:51 EST 10,000 - 50,000 cfu/ml Mixed growth consistent with normal urogenital lev. PRELIMINARY REPORTS Preliminary Report [] Verified Date/Time/Personnel: 03/30/2023 09:46 EST No growth to date Performing Locations *1: This test was performed at: [facility], [address] [place] [address], [id number] , Formerly [facility] ([place]) 03-23-2023 Telephone encounter Note SUBJECTIVE MARIA T WYNNE is a 28 year old Female who was referred to [facility] for clinical management services for Dupixent 300 MG/2ML. Diagnosis Other atopic dermatitis L20.89 OBJECTIVE Medications: Clobetasol Propionate 0.05 % OINT EX Clobetasol Propionate 0.05 % SOLN EX Dupixent 300 MG/2ML SOPN SC Hydrocortisone 2.5 % CREA EX ISOtretinoin 40 MG CAPS PO Mounjaro 2.5 MG/0.5ML SOPN SC Nystatin 271454 UNIT/GM POWD EX Phendimetrazine Tartrate 35 MG TABS PO Tacrolimus 0.1 % OINT EX Triamcinolone Acetonide 0.1 % CREA EX Allergies: ciprofloxacin clindamycin doxycycline metronidazole Sulfa (Sulfonamide Antibiotics) tramadol Medical History & Comorbidities: Problem list has been reviewed in the EHR Data Collect Dupixent 03/23/2023 POEM Assessment Date: 03/23/2023 Value: 18 ASSESSMENT / PLAN Dupixent 300 MG/2ML Expectations and Goals of therapy Reduce body surface area coverage, reduce pain/itching, reduce flaring, POEM improvement. Educated that full effect of new biologic therapy may take up to 16 weeks - it is important to remain on any other therapies currently prescribed for management. May also need to continue to use topical agents and other therapies for atopic dermatitis. Disease state education Counseled on general disease state management strategies. Emphasized that Atopic Dermatitis is a chronic medical condition that requires consistent adherence to prescribed medication in order to achieve treatment goals. Administration Counseled on administration directions, Inject 600 mg on day 1 and then 300 mg under the skin every 2 weeks thereafter. Remove dose from refrigerator 30-60 minutes prior to injection and allow to warm to room temperature. Rotate injection sites - best sites for a subcutaneous injection is top of the thighs or at least 2 inches away from the belly button. May apply ice or heat the spot prior to and after injection. Can treat with OTC agents for minor irritation including hydrocortisone or diphenhydramine. The patient will inject the medication herself. She expressed understanding that the first dose is a double injection. Id o not foresee any barriers as the patient was counseled on injection technique. Storage/Disposal Counseled on proper storage of medication in the refrigerator and extended stability for up to 14 days at room temperature (77F max)- if necessary. Disposal: Reviewed sharps disposal and provided information on improvement analyst resources . Side effects Counseled patient of the potential side effects include injection site reactions, nasopharyngitis, conjunctivitis, herpes simplex, dizziness, myalgia, and diarrhea. Counseled that patient should not receive live vaccines while on Dupixent due to risk of potential adverse effects. Contact Advised when to contact pharmacy or provider. Provided with direct number to clinical pharmacist for questions or concerns prior to scheduled follow up. The patient was oriented to the pharmacy s services upon their initial fill and it was communicated that they can participate in this plan of care by speaking with a Pharmacist which is offered during each reassessment. Adherence Since this is a preventative therapy, the patient needs to take Dupixent routinely every 14 days regardless of the activity of their disease. Monitoring and follow up Reviewed therapy monitoring parameters and importance to maintain follow-up lab and provider visits. The patient is aware to let us know if any issues or reactions occur while on this medication so that we can let the provider know as well as any changes in medications so we can assess for interactions and such. Pharmacy Recommendations/Education/Other Patient knows to let us know if any changes in the medication are to occur so that we can properly assess for interactions and such. Patient knows we are available 8- at [phone]. Sinai Cadena Clinical Pharmacist [facility] 03-23-2023 Miscellaneous Notes SUBJECTIVE MARIA T WYNNE is a 28 year old Female who was referred to [facility] for clinical management services for Dupixent 300 MG/2ML. Diagnosis Other atopic dermatitis L20.89 OBJECTIVE Medications: Clobetasol Propionate 0.05 % OINT EX Clobetasol Propionate 0.05 % SOLN EX Dupixent 300 MG/2ML SOPN SC Hydrocortisone 2.5 % CREA EX ISOtretinoin 40 MG CAPS PO Mounjaro 2.5 MG/0.5ML SOPN SC Nystatin [id number] UNIT/GM POWD EX Phendimetrazine Tartrate 35 MG TABS PO Tacrolimus 0.1 % OINT EX Triamcinolone Acetonide 0.1 % CREA EX Allergies: ciprofloxacin clindamycin doxycycline metronidazole Sulfa (Sulfonamide Antibiotics) tramadol Medical History & Comorbidities: Problem list has been reviewed in the EHR Data Collect Dupixent 03/23/2023 POEM Assessment Date: 03/23/2023 Value: 18 ASSESSMENT / PLAN Dupixent 300 MG/2ML Expectations and Goals of therapy Reduce body surface area coverage, reduce pain/itching, reduce flaring, POEM improvement. Educated that full effect of new biologic therapy may take up to 16 weeks - it is important to remain on any other therapies currently prescribed for management. May also need to continue to use topical agents and other therapies for atopic dermatitis. Disease state education Counseled on general disease state management strategies. Emphasized that Atopic Dermatitis is a chronic medical condition that requires consistent adherence to prescribed medication in order to achieve treatment goals. Administration Counseled on administration directions, Inject 600 mg on day 1 and then 300 mg under the skin every 2 weeks thereafter. Remove dose from refrigerator 30-60 minutes prior to injection and allow to warm to room temperature. Rotate injection sites - best sites for a subcutaneous injection is top of the thighs or at least 2 inches away from the belly button. May apply ice or heat the spot prior to and after injection. Can treat with OTC agents for minor irritation including hydrocortisone or diphenhydramine. The patient will inject the medication herself. She expressed understanding that the first dose is a double injection. Id o not foresee any barriers as the patient was counseled on injection technique. Storage/Disposal Counseled on proper storage of medication in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 remember that factors such as other health co-morbidities one might have, as well as insurance coverage, will play a factor in determining which medications you can take. Most of the newer medications that are all the craze ,injectables, may not be covered or will only be covered if you fail months of oral medications- so please be patient with the process. It would be beneficial for you to determine what your insurance covers as far as Anti-Obesity Medications (AOMs), Nutritional Counseling, behavioral intervention and weight loss surgery. Please call your health insurance prior to your first appointment and write down coverage for each of those therapies. Most importantly, remember that ultimately our goal is to help you get to a healthier weight which will decrease your overall health risks. We will work together as a team and try to reach your personalized goals as well. We appreciate that you have entrusted us with your health and know that we are committed to this process with you. Obesity Obesity is a disease that affects nearly one-third of the adult [place] population (approximately 60 million). The number of overweight and obese Americans has continued to increase since 1960, a trend that is not slowing down. Today, 64.5 percent of adult Americans (about 127 million) are categorized as being overweight or obese. Each year, obesity causes at least 300,000 excess deaths in the [place] and healthcare costs of [place] adults with obesity amount to approximately $100 billion. (AOA) Obesity is a complex, multi-factorial chronic disease involving: Environmental (social and cultural) The tendency toward obesity is a result of our environment: lack of physical activity along with high-calorie, low-cost foods. Home, work, school, and even the community can inhibit a healthy lifestyle. Genetic (Hereditary plays a large role in determining how susceptible people are to overweight and obesity). Genes also influence how the body elizondo calories for energy and stores fat. Physiologic, metabolic, behavioral (eating too many calories while not getting enough exercise) and psychological components. It is the second leading cause of preventable in the [place] Behavioral changes brought on by economic development, modernization and urbanization have been linked to the rise in global obesity. Calculating BMI Body Mass Index (BMI) is a measurement tool used to determine excess body weight. Overweight is defined as a BMI of 25 or more, obesity is 30 or more, and severe obesity is 40 or more. You can visit www.nhlbi.nih.gov to estimate your BMI. Obesity Related Health Conditions The morbidity and mortality risk from being overweight is proportional to its degree. Individuals with morbid obesity, therefore, have the highest risk for developing numerous illnesses that often reduce mobility and quality of life due to their excess weight. In particular, type 2 diabetes, gallbladder disease and osteoarthritis have been found to increase concurrently with higher BMI. Premature , a 20-year shorter life span, has also been found in individuals with morbid obesity. All of the systems that make the body function are affected by morbid obesity. Type 2 diabetes Gallbladder disease and gallstones Liver disease Osteoarthritis, a disease in which the joints deteriorate. This is possibly the result of excess weight on the joints. Gout, another disease affecting the joints Pulmonary (breathing) problems, including sleep apnea in which a person can stop breathing for a short time during sleep Reproductive problems in women, including menstrual irregularities and infertility Gastroesophageal reflux/heartburn Hypertension Heart Disease Depression Psychological disorders/social impairments Urinary Stress Incontinence Obesity is also linked to higher rates of certain types of cancer. Obese men are more likely than non-obese men to from cancer of the colon, rectum, or prostate. Obese women are more likely than non-obese women to from cancer of the gallbladder, breast, uterus, cervix, or ovaries [email or web address] [email or web address]-olzirc-ovexdo [email or web address]-uqfofvr-[email or web address] Nutrition - Eat primarily whole foods. Limit carbs, especially processed carbs. - Do not drink your calories - 30 grams of protein for breakfast decreases your hunger during the day by up to 40 % Premier Protein or generic 30 gm protein 1 gm sugar - Walk for 15 minutes immediately a meal. Sincerely, Willa Lau MD, KERI & Donna Looney CNP Weight Management: You have taken the initiative to become a healthier version of yourself and to decrease the risks that come with the diagnosis of obesity or being overweight. We are happy to help you along this journey but know this is a lifetime commitment to yourself. Losing just 3-10 % of your body weight can decrease your risks of many other serious diseases like diabetes, heart disease, osteoarthritis, hypertension, cancer and so many others. During this time you will have triumphs, setbacks and plateaus- your body will fight against you but we are here to give you the tools and the resources to continue to reach your goals. We recommend during this time that you track your weight daily or at least five times per week as well as tracking your nutrition. You may track your activity but do not use hitting your fitness goals as a reward system as this can derail your success. We recommend weekly physical activity of 150-200 min/week-although physical exercise can help with maintaining weight loss it adds only a little benefit for [facility] weight loss success. However, exercise can have many other benefits including improving mental health and cardiovascular health. Do not feel overwhelmed- we will discuss this more at your visits. Our time will be limited with each visit but we will try to touch on factors that are important to you and to your overall goals. We will try to set a goal at the end of each visit and then decide on what we want to accomplish with your upcoming visits. On your After Visit Summary (AVS), we will provide you with information that may be useful during this journey so please remember to read the information given. Check your AVS a few days after your appointment because we may have added more information specifically for you. Remember that if you are placed on medications, they are tools that can help you succeed but you must put in the work. Your nutrition will be the main factor. There are medications that work well for some and not for others- so it may take time to find the right combination for your body's needs. Please remember that factors such as other health co-morbidities one might have, as well as insurance coverage, will play a factor in determining which medications you can take. Most of the newer medications that are all the craze ,injectables, may not be covered or will only be covered if you fail months of oral medications- so please be patient with the process. It would be beneficial for you to determine what your insurance covers as far as Anti-Obesity Medications (AOMs), Nutritional Counseling, behavioral intervention and weight loss surgery. Please call your health insurance prior to your first appointment and write down coverage for each of those therapies. Most importantly, remember that ultimately our goal is to help you get to a healthier weight which will decrease your overall health risks. We will work together as a team and try to reach your personalized goals as well. We appreciate that you have entrusted us with your health and know that we are committed to this process with you. Sincerely, Willa aLu MD, KERI & Donna Looney, JOSE GUADALUPE Obesity Obesity is a disease that affects nearly one-third of the adult [place] population (approximately 60 million). The number of overweight and obese Americans has continued to increase since 1960, a trend that is not slowing down. Today, 64.5 percent of adult Americans (about 127 million) are categorized as being overweight or obese. Each year, obesity causes at least 300,000 excess deaths in the [place] and healthcare costs of [place] adults with obesity amount to approximately $100 billion. (AOA) Obesity is a complex, multi-factorial chronic disease involving: Environmental (social and cultural) The tendency toward obesity is a result of our environment: lack of physical activity along with high-calorie, low-cost foods. Home, work, school, and even the community can inhibit a healthy lifestyle. Genetic (Hereditary plays a large role in determining how susceptible people are to overweight and obesity). Genes also influence how the body elizondo calories for energy and stores fat. Physiologic, metabolic, behavioral (eating too many calories while not getting enough exercise) and psychological components. It is the second leading cause of preventable in the [place] Behavioral changes brought on by economic development, modernization and urbanization have been linked to the rise in global obesity. Calculating BMI Body Mass Index (BMI) is a measurement tool used to determine excess body weight. Overweight is defined as a BMI of 25 or more, obesity is 30 or more, and severe obesity is 40 or more. You can visit www.nhlbi.nih.gov to estimate your BMI. Obesity Related Health Conditions The morbidity and mortality risk from being overweight is proportional to its degree. Individuals with morbid obesity, therefore, have the highest risk for developing numerous illnesses that often reduce mobility and quality of life due to their excess weight. In particular, type 2 diabetes, gallbladder disease and osteoarthritis have been found to increase concurrently with higher BMI. Premature , a 20-year shorter life span, has also been found in individuals with morbid obesity. All of the systems that make the body function are affected by morbid obesity. Type 2 diabetes Gallbladder disease and gallstones Liver disease Osteoarthritis, a disease in which the joints deteriorate. This is possibly the result of excess weight on the joints. Gout, another disease affecting the joints Pulmonary (breathing) problems, including sleep apnea in which a person can stop breathing for a short time during sleep Reproductive problems in women, including menstrual irregularities and infertility Gastroesophageal reflux/heartburn Hypertension Heart Disease Depression Psychological disorders/social impairments Urinary Stress Incontinence Obesity is also linked to higher rates of certain types of cancer. Obese men are more likely than non-obese men to from cancer of the colon, rectum, or prostate. Obese women are more likely than non-obese women to from cancer of the gallbladder, breast, uterus, cervix, or ovaries [email or web address] Nutrition - Eat primarily whole foods. Limit carbs, especially processed carbs. - Do not drink your calories - 30 grams of protein for breakfast decreases your hunger during the day by up to 40 % Premier Protein or generic 30 gm protein 1 gm sugar - Walk for 15 minutes immediately a meal. METABOLIC SYNDROME OVERVIEW Metabolic syndrome, also called insulin resistance syndrome or syndrome X, is not a disease but a group of characteristics. These characteristics include obesity, high blood pressure, elevated blood sugar levels, and high triglycerides (fat-like substances in the blood). Having a combination of these characteristics increases your risk of developing type 2 diabetes and heart disease. Keeping your weight, blood sugar, and cholesterol and triglyceride levels under control can help you to live longer and decrease your risk of heart attack and stroke. There is controversy as to whether metabolic syndrome is really a "syndrome." More detailed information about metabolic syndrome is available by subscription. (See "Metabolic syndrome (insulin resistance syndrome or syndrome X)".) WHAT IS METABOLIC SYNDROME?Metabolic syndrome is a group of characteristics. You do not need to have all of the characteristics to have it. However, a person with one characteristic is more likely to have others. Most expert groups define metabolic syndrome as the presence of three or more of the following characteristics in a person: -Obesity, especially in the abdominal area (defined by some groups as a waist size greater than 94 to 102 cm [38 to 41 in] in men or greater than 80 cm [32 in] in women) -impaired glycemia (fasting blood sugar of 100 to 125 mg/dL [5.6 to 7 mmol/L] or glycated hemoglobin [A1C] 5.7 to 6.4 percent) -increased blood pressure (130/85 mmHg or higher) or if you take medicine for high blood pressure -Increased fasting levels of triglycerides (greater than 150 to 180 mg/dL or 1.7 mmol/L) or decreased fasting high-density lipoprotein (HDL) cholesterol (less than 40 mg/dL or 1 mmol/L for men or 50 mg/dL or 1.3 mmol/L for women) or if you take medicine for high triglycerides or low HDL cholesterol HOW COMMON IS METABOLIC SYNDROME? Metabolic syndrome is becoming increasingly common. In one study performed between 1998 and 2001, more than 34 percent of participants were classified as having metabolic syndrome [1]. This number is significantly increased from a similar study performed between 1987 and 1993, when 22 percent of people had metabolic syndrome. The following factors are thought to increase the risk of developing metabolic syndrome: -Being overweight (body mass index of 25 kg/m2 or more) (calculator 1 and calculator 2) -Menopause (in women) -Increasing age -Smoking -Eating a high-carbohydrate diet -Lack of physical activity -Family history of diabetes or metabolic syndrome Health risks associated with metabolic syndrome Diabetes -- Type 2 diabetes is much more likely to develop among people with metabolic syndrome [2]. Healthy lifestyle changes, such as weight loss and exercise, can help to reduce the risk of developing type 2 diabetes. (See Patient education: Type 2 diabetes: Overview (Beyond the Basics)".) Cardiovascular disease -- People with metabolic syndrome are at increased risk for developing cardiovascular disease. Cardiovascular disease includes coronary artery disease (collections of fatty plaques inside the heart's blood vessels), cerebrovascular disease (collections of fatty plaques inside the blood vessels leading to the brain), and high blood pressure. Cardiovascular disease can lead to heart attack, stroke, or angina (chest pain). METABOLIC SYNDROME DIAGNOSISMetabolic syndrome is diagnosed based upon a physical exam and a blood test of your blood sugar (either fasting [before breakfast] blood sugar or a test any time of A1C), cholesterol, and triglyceride levels. A description of how blood glucose and cholesterol levels are measured is available separately. (See "Patient education: Type 2 diabetes: Overview (Beyond the Basics)" and Patient education: High cholesterol and lipids (Beyond the Basics)".) METABOLIC SYNDROME TREATMENT The goals of treatment for metabolic syndrome are to: -Reduce or eliminate underlying problems (eg, obesity, lack of activity) by losing weight and becoming more active -Treat cardiovascular risk factors, such as high blood pressure and cholesterol, if these problems persist despite losing weight and exercising In addition to treating the individual components of metabolic syndrome with medications, you may be able to further lower your risk of cardiovascular complications by reversing or correcting the syndrome with lifestyle changes including weight loss, exercise, and dietary changes. Weight loss -- Management of metabolic syndrome usually includes losing weight and becoming more active. Your diet should be low in fat and cholesterol. -The Mediterranean diet is high in fruits, vegetables, nuts, whole grains, and olive oil. This diet can help to lower weight, blood pressure, lipids, and improve insulin resistance. -The DASH (Dietary Approaches to Stop Hypertension) diet can reduce blood pressure, weight, lipids, and fasting blood glucose levels. The DASH diet requires you to eat no more than 2400 mg of sodium per day, four to five servings of fruit, four to five servings of vegetables, and two to three servings of low-fat dairy products; all foods must contain less than 25 percent total fat per serving. (See Patient education: Low-sodium diet (Beyond the Basics)".) Exercise -- Exercise can help with weight loss and can also help to reduce the size of the abdomen, especially in women. Experts recommend at least 30 minutes of moderate physical activity, such as brisk walking, most days of the week. (See Patient education: Exercise (Beyond the Basics)".) Reduce the risk of type 2 diabetes -- Losing weight (if you are overweight or obese) and staying active can reduce the risk of developing type 2 diabetes. Reduce cholesterol -- High levels of low-density lipoprotein (LDL) (bad) cholesterol increase the risk of coronary artery disease. In people with metabolic syndrome, an LDL level of less than 80 to 100 mg/dL is recommended. If diet and weight loss do not adequately reduce your LDL levels, a medicine may be recommended. Treatment of high LDL levels is discussed separately. (See "Patient education: High cholesterol and lipids (Beyond the Basics)".) More helpful links: How to Lower Insulin Levels How to Lower Your Insulin Levels (Insurity) What to Do For Metabolic Syndrome - [facility] How to boost your good cholesterol Exercise more: Vigorous exercise is best for boosting your HDL (good) cholesterol, but any extra exercise is better than none. Lose weight: If you are overweight, losing 5% to 10% of your current weight can raise HDL, along with reducing blood pressure and blood sugar. Avoid trans fats: Not eating these artificial fats -- found in hard margarines, many baked goods, and fried fast foods -- raises HDL cholesterol. Reducing your intake also helps to lower LDL (bad) cholesterol. Cut back on refined carbs: Switch from refined carbohydrates (such ?as white bread) to whole grains. It also helps to add more lean protein to your diet. Don't smoke: Quitting smoking improves HDL and helps your health in many other ways. If you drink alcohol, do so in moderation: Moderate drinking means one or two drinks per day. Moderate alcohol consumption supports healthy HDL levels, but it isn't something you should start doing specifically to boost good cholesterol. Meal replacements: Meal Replacements Plant-based protein bars Meal replacements. One option that works for some people is to use meal replacements, as in the DiRECT and Look AHEAD trials.The available options in Look AHEAD included shakes, bars, and meals from a variety of companies ([facility], [employer], [employer], and [employer]). The calorie content was 150 to 220 calories, depending on the product. People who used meal replacements 12 times a week instead of preparing their own meals lost about 11% of their weight in the first year, whereas those who used just two per week lost about 6% of their weight. Keep in mind, though, that people in the trial who used meal replacements also tended to consume a healthier diet over all; they were more likely to have met their goals for dietary fat, fruits and vegetables, and dairy foods, and to have cut back on sweets, than those who didn t use meal replacements. Similarly, in the DiRECT trial, participants consumed special nutritionally complete shakes and soups (the Counterweight-Plus program) for the first 12 weeks.If you opt for meal-replacement drinks, bars, or frozen entrees, here are some criteria to look for: calories, 150 to 300 fat, 3 to 10 grams protein, > 20 grams sugar < 5 g Meal replacements are typically fortified with vitamins and minerals and contain some fiber. Because they are calorie controlled, the amount of added sugars is usually minimal. If you want to try this approach to boost weight loss, ask your dietitian or another member of your health care team how to incorporate the replacements into your meal planning and discuss whether you might need to reduce your doses of diabetes medications to prevent hypoglycemia (low blood sugar) as you cut calories and lose weight. It is important to find a meal-replacement product that suits your taste. If you prefer not to consume processed foods, you can make your own portion-controlled versions. Note that meal replacements don t work for everyone. While some people like meal-replacement shakes, bars, and soups and find them to be a convenient way to sustain a reduced calorie intake over time, others don t feel satisfied drinking them and often end up simply adding them to what they d normally eat--which could lead to weight gain. What s more, some people have a hard time readjusting to eating real food after they stop using meal replacements. Protein - no carbs Egg 1 large - 6g Egg white 1 large 3.6g 3 oz is approximately the size of a deck of cards and equals 21 g protein Beef, Chicken, River [place], Pork, Saucedo 1 oz 7g Fish, Tuna Fish 1 oz 7g Seafood (Crabmeat, Shrimp, Lobster) 1 oz 6g Protein shakes (read labels) Premier Protein or generic [employer] Equate, Aldi Elevate, [employer] High Performance- 30g protein & 1g carb - meal replacement Premier Protein plant protein powder - 25 gm protein, 0 suger/2 carb Vanilla and chocolate (not a meal replacement) Fairlife 30 gram protein - 30g protein & 3g carb BOOST Glucose Control Max 30g Protein Nutritional Drink - 30g protein & 1 carb - meal replacement Slimfast High Protein - 20g protein & 1g carb Ensure Max Protein Nutrition Shake 30g protein & 2 carb Protein AND carbs Beef/River Ranch Jerky 1 oz dried 10-15g protein - check carb count, can be high if sugar added Slim Maynor - 6 gm protein and 4 net carb Great Value original turkey sausage sticks - 7 gm protein and 2 gm carb Imitation Crab Meat 1 oz - 2g protein & 4g carb Milk, skim 2% or 1% 8 oz - 8g protein & 12g carb [place] yogurt Full Fat [place] Yogurt 1 cup - 20.4g protein & 9.1g carb 2% [place] Yogurt 1 cup - 22.7g protein & 9.1g carb 0% (fat-free) [place] Yogurt - 1 cup 24g protein & 9.3g carb :ratio, KETO Friendly Dairy Snack 1 single svg - 15g protein & 2g carb :ratio Protein 1 single svg - 25g protein & 8g carb Dannon Light + Fit 1 single csvg - 12g protein & 9g carb Two Good Lowfat [place] Yogurt, [place], Lower Sugar - 12g protein & 2g carb Oikos Triple Zero [place] Nonfat Yogurt 1 single svg - 15g protein & 7g carb Cheese each oz Brie 5.9g protein & 0.1g carb Cheddar Cheese 7g protein & 0.4g carb Mozzarella Cheese 6.3g protein & 0.6g carb Luciano Cheese 6.7g protein & 0.7g carb Parmesan Cheese 10g protein & 0.9g carb Cream Cheese 1.7g protein & 1.2g carb Feta 4g protein & 1.2g carb Togolese Cheese 7.6g protein & 1.5g carb Khalil s Low Fat Cottage Cheese 1/2cup 12g protein & 4g carb Legumes Lentils cup 9g protein & 20g carb Diamond beans cup 7g protein & 20g carb Kidney, Black, [place], Cannellini beans cup 8g protein & 20g carb Soybeans 1/2 c 14g protein & 8.5g carb Peanut butter, natural 2 Tbsp 7-8g protein & 4g net carbs, 190 calories Crum Lynne milk, unsweetened 8 oz 1g protein & 2g carb Soy milk 8 oz 3.5g protein & 1.6g carb Tofu 1/2 cup 10g protein & 2.3g carb Nuts and Seeds per oz Pumpkin Seeds - 6.9g protein & 5g carb Almonds - 5.9g protein & 6.1g carb [place] Seeds - 5.8g protein & 5.6g carb Pistachios - 5.8g protein & 7.8g carb Cashews - 5.1g protein & 9.2g carb Walnuts - 4.3g protein & 3.8g carb Hazelnuts - 4.2g protein & 4.7g carb [place] Nuts - 4.0g protein & 3.4g carb Pecans - 2.6g protein & 3.9g carb Peanuts - 7g protein & 4.6g carb <15 gram carb fruit options Berries have the lowest sugar content 1/2 cup diced honeydew melon - 8 carbs 1/2 cup diced watermelon - 6 carbs One half medium grapefruit - 10.5 carbs 1 medium orange -15.5 carbs 1 medium peach -14.5 carbs 1/2 cup fresh cranberries - 6.5 carbs 1 medium plum -7.5 carbs 1/2 cup raspberries -7.5 carbs 1 medium Zaria -9 carbs 1/2 cup fresh pineapple -11 carbs 1 medium nectarine - 15 carbs 1/2 cup blueberries - 11 carbs - may actually help you lose weight 1 medium kiwi without skin - 11 carbs 1/2 cup fresh cherries -11 carbs 1 medium tangerine -12 carbs 1/2 cup sliced merritt -14 carbs 1/2 medium banana 1/2 c grapes 1/2 medium apple - 12.5 carbs 1/2 c strawberries - 12.7 carbs 5 (FIVE) gram carb vegetable options 1 cup raw OR cup cooked: Asparagus Cabbage Spinach Peppers Green beans Carrots Tomato Tobias Ortiz sprouts Cauliflower Lettuce Snap peas Broccoli Eggplant Zucchini Turnips Spaghetti squash 15 gram carb vegetable options cup cooked green peas cup cooked corn or hominy corn on the cob, large (5 oz) cup cooked sweet potato, plain cup cooked potato, plain 1 small potato or sweet potato 1 cup winter squash (pumpkin, acorn, butternut) 1 cup marinara or pasta sauce - check label cup tomato juice cup tomato puree Beans, Seeds, Nuts cup cooked beans (kidney, hardin, red, green, etc.) cup cooked lentils cup baked beans 4 tablespoons nut butter 10 Easy Ways to Increase Your NEAT (Non-exercise activity thermogenesis) One of the best ways to lose those those extra pounds for good and keep it off is to make daily habit changes that can help burn those extra calories during activities you would normally do regardless. What I am talking about is increasing your NEAT. What is NEAT? It is Non-exercise activity thermogenesis. It is the activity that you are able to add into your daily routine outside of the gym that can help you in the long run. It can help you lose those ten pounds not this month, but over the next 12 months. 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 Now it is time for me to show you how. For a moment, imagine for me that you we are back before you started going to the gym. Imagine you were slowly gaining about a pound every two to three months. After 3 years of not exercising or working out you realized you are 10 pound heavier. All your clothes feel a little tighter and you just do not feel good in your own skin like how you used to. One day climbing up a flight of stairs you become way too easily winded, and not just that, but your knees are hurting. For some people, this is all too real. That was the wake up call to go to the gym to start exercising. Yet, why do you exercise when you gain weight? The reason is because you were taught that when you begin exercising, you begin to lose the weight you previously put on. The reason for the weight loss is because you have started to burn more calories compared to what you have consumed through your diet. When it comes to fat loss, you want to have a calorie deficit of about 500 calories a day so that about after a week you will be 3500 calories short. Your body is naturally programmed then to pull those calories of energy out of your stored fat. One pound of fat is roughly equal to 3500 calories. So when you burn those calories at the gym and create that calorie deficit you are burning through that stored fat. Another way you can create a calorie deficit is by changing up your diet. If you reduce the calories you eat by a small margin to create a 500 calories deficit then the same result will happen of burning a pound of stored body fat for every 3500 calories you did not eat that you may normally would have. Now finally for NEAT to come into play. We are going through your normal daily life but now you add some extra Non-exercise activity thermogenesis. You add some daily habits that helped you burn extra calories throughout your day. These extra calories that you burn add to your total daily energy expenditure which means that instead of those calories you were eating becoming stored as fat, you burned those calories, without even stepping into a gym. That is the power of NEAT. Sadly, most individuals do not know of the power of NEAT so most people do gain those ten pounds. Still, NEAT can help you lose that weight gained. Let s say now that you know the power of NEAT you want to incorporate it as part of your daily life and habits with that a positive change of dietary habits and a new exercise program. So let us say you are at the gym going three times a week and hike once a week burning a total of 2500 calories at the end of the week. With that you are improving your eating habits and diet and that has created an additional 2000 calories deficit at the end of the week. So so far a nice sum total of 4500 calories burned in just a single week. Now with a little magical NEAT you add just 100 calories a day of extra activity into your life and therefore an extra 700 calories that you burned in one week! So now you have 5200 calories a week burned between your diet, exercise, and nonexercise activity. Now over a course of a month you have 28,000 calories burned. Over three months time you have 84,000 calories. If you were to burn and have a calories deficit of 84,000 calories that is a sum total of 24 pounds lost! Now if you did not include NEAT into that math you would have lost 21.6 pounds. Still a great amount lost, but after a year you are missing out on those extra 10 pounds you could have lost by barely making a change. Here are 10 examples of NEAT to help you lose weight: WALKING: Walking is an easy activity nearly every one of us can accomplish. All we have to do is increase the number of steps we walk everyday and over time the extra energy used comes from our stores fat. It is also fairly simple to increase the number of steps you walk throughout the day. You can park your car down the street from your house. You can park at the farthest spot when shopping. You can go for an easy morning walk while you sip your morning cup of Jason. All the steps will add up over time. COOKING: Most of us cook at least one meal throughout the day. During this time you can add in some simple movements. When I cook, I like to squat deep when I grab a tinsley out of the cabinet. When I m reaching for the spices on the shelf I throw in a push-up. When I m waiting for the vegetables to steam I simply bounce or fidget in place while reading or going on social media. The point is while I m coming I am not standing still. For those times I m eating out, I will fidget in line by bouncing on one foot for a bit then switch it up. Sometimes I ll squat while waiting for my coffee. Again, the point is I keep moving. TELEVISION: I watch TV. I would even be lying to you if I said I hardly watch TV. I would be lying to you if I said I sit or lay down and watch TV. When watching my programs or sports on TV I am stretching. I lay down and stretch out my muscles. I ll use the couch as a steady surface to stretch my back out, my shoulders out, my legs out. I never just sit down and watch TV. I stretch and stay active and honestly it is one of the best habits I have created. It has helped me stay loose and I no longer feel guilty about watching TV. It is a win win. Morning Routine: Everyone has a morning routine that they go through during their work week. This is an easy time to add some extra movement to your day. The moment you get out of bed, do some push-ups. You do not even have to define a specific amount. Just drop down and give me however many you feel like. When you go to start the coffee pot, I want you to give me some jumping jacks. The moment you go and brush your teeth, give me some squats before you start or maybe even while you are brushing your teeth if you feel like really multitasking. Going out to get the morning paper, I want a burpee when you get to that paper. Just add in some simple movements or tasks that are associated with every stop along your morning routine. Evening Routine Same concept of your morning routine except I want you to do more stretching and more of a yoga pose idea with it. When you are going around the house shutting off the lights, take a deep breath and reach up and then down towards your toes. Locking the doors, I want a nice deep lunge stretch to help loosen up those hip flexors. Do simple more relaxing movements. Not only will these little movements help burn those extra calories, they are going to help mentally and physically relax you before you sleep. Your Car Most people are getting in and out of their car at least once a day. Every time you are getting into your car, add some movement. You can do jumping jacks, lunges, squats, some hip hinges, do something. I have known people where they will do as many reps of squats for each minute they expect to be driving. If they were going on a long road trip, they would break up those squats during the rest breaks. This is a very simple way to add in those extra calories burned. Personally I like to try getting into and out of my car without using my hands. Some days I will try to mix up only using one foot or the other with no hands trying to carefully slid out of the car. Ditch the Car: If you do not have a crazy commute to work or when running errands or even going out to eat ditch the car for the evening. Many people forget that they can walk places and it will in fact not take long at all. The walk will make you feel good, burn calories, and will help out our environment. Personally I try to ride my bike to work as often as I can. I know others who go and walk to the grocery store when buying only a handful of items. I know of others who take an uber to work in the morning and walk the distance home. The point is at least once a week ditch the car and ride your bike, walk, skate, or even run somewhere you need to go. Work Do not just sit there. If you have a job where you end up sitting down for an extended period of time you are doing harm to yourself. Luckily you can save yourself. Every 5 minutes you sound get up and stand up and squat down and then sit right back down. Anytime you have a break in your workflow, do a little twist in the chair stretching your back out. If you are stuck there reading your emails, add some arm circles in. You won t even have to get out of your chair for those arm circles. All the little movements add up. So please, do it for yourself and do not just sit there. You & Your Significant Other You don t have to be to have a significant other. Exercising with a bestie, a girlfriend or boyfriend or even a pet is a great way to spend time and feel great. Who does not like a long romantic walk down the beach in the sand? Who would not want to go walk or a hike and enjoy nature? Go and yordy your dog on all four and be a dog for fifteen minutes. They will enjoy it and so will you. The point is get moving with the your better half and you will be better for it. It will definitely bring the two of you closer as well. Clean Everything Cleaning is a very efficient way to multitask. You are getting those extra calories burned while cleaning whatever you wanted clean anyways. The fun part is make a game out of the cleaning. When I wash my car I see absolutely how fast I can get my car washed and clean. When I begin to vacuum I try to do everything while balancing on one leg or the other. When I sweep my house, I steam box hand the broomstick like I am trying to break it. The point is make it fun to clean and make it a good challenge. I put my laundry basket away from the washer and take jump shots with all my clothes into the washer. This is my favorite one and I highly recommend it if you have a stoper. The doran is that you remember why you are doing every thing. Keep in mind your own goal. I want you to remember on why you are trying to lose weight in the first place. If you focus on that goal and remember to have fun with all these easy steps and tricks to add those extra calories burned, you will get to where you want to be and have fun in the process. Losing weight is not necessarily hard work. It can be fun if you are open to the idea and willing to look a bit goofy at times. I promise you though every one of these 10 ways to increase your daily NEAT will be effective and will all add up in the end. A great book that I would recommend for anyone reading is the Slight Edge. The book s main theme is that it is the little things done daily that lead to the biggest change. http://www.Number 100.com/10-easy- qlrg-cv-kbshsmsm-your-neat/ 10 Easy Ways to Increase Your NEAT (Non-exercise activity thermogenesis) One of the best ways to lose those those extra pounds for good and keep it off is to make daily habit changes that can help burn those extra calories during activities you would normally do regardless. What I am talking about is increasing your NEAT. What is NEAT? It is Non-exercise activity thermogenesis. It is the activity that you are able to add into your daily routine outside of the gym that can help you in the long run. It can help you lose those ten pounds not this month, but over the next 12 months. 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 Now it is time for me to show you how. For a moment, imagine for me that you we are back before you started going to the gym. Imagine you were slowly gaining about a pound every two to three months. After 3 years of not exercising or working out you realized you are 10 pound heavier. All your clothes feel a little tighter and you just do not feel good in your own skin like how you used to. One day climbing up a flight of stairs you become way too easily winded, and not just that, but your knees are hurting. For some people, this is all too real. That was the wake up call to go to the gym to start exercising. Yet, why do you exercise when you gain weight? The reason is because you were taught that when you begin exercising, you begin to lose the weight you previously put on. The reason for the weight loss is because you have started to burn more calories compared to what you have consumed through your diet. When it comes to fat loss, you want to have a calorie deficit of about 500 calories a day so that about after a week you will be 3500 calories short. Your body is naturally programmed then to pull those calories of energy out of your stored fat. One pound of fat is roughly equal to 3500 calories. So when you burn those calories at the gym and create that calorie deficit you are burning through that stored fat. Another way you can create a calorie deficit is by changing up your diet. If you reduce the calories you eat by a small margin to create a 500 calories deficit then the same result will happen of burning a pound of stored body fat for every 3500 calories you did not eat that you may normally would have. Now finally for NEAT to come into play. We are going through your normal daily life but now you add some extra Non-exercise activity thermogenesis. You add some daily habits that helped you burn extra calories throughout your day. These extra calories that you burn add to your total daily energy expenditure which means that instead of those calories you were eating becoming stored as fat, you burned those calories, without even stepping into a gym. That is the power of NEAT. Sadly, most individuals do not know of the power of NEAT so most people do gain those ten pounds. Still, NEAT can help you lose that weight gained. Let s say now that you know the power of NEAT you want to incorporate it as part of your daily life and habits with that a positive change of dietary habits and a new exercise program. So let us say you are at the gym going three times a week and hike once a week burning a total of 2500 calories at the end of the week. With that you are improving your eating habits and diet and that has created an additional 2000 calories deficit at the end of the week. So so far a nice sum total of 4500 calories burned in just a single week. Now with a little magical NEAT you add just 100 calories a day of extra activity into your life and therefore an extra 700 calories that you burned in one week! So now you have 5200 calories a week burned between your diet, exercise, and nonexercise activity. Now over a course of a month you have 28,000 calories burned. Over three months time you have 84,000 calories. If you were to burn and have a calories deficit of 84,000 calories that is a sum total of 24 pounds lost! Now if you did not include NEAT into that math you would have lost 21.6 pounds. Still a great amount lost, but after a year you are missing out on those extra 10 pounds you could have lost by barely making a change. Here are 10 examples of NEAT to help you lose weight: WALKING: Walking is an easy activity nearly every one of us can accomplish. All we have to do is increase the number of steps we walk everyday and over time the extra energy used comes from our stores fat. It is also fairly simple to increase the number of steps you walk throughout the day. You can park your car down the street from your house. You can park at the farthest spot when shopping. You can go for an easy morning walk while you sip your morning cup of Jason. All the steps will add up over time. COOKING: Most of us cook at least one meal throughout the day. During this time you can add in some simple movements. When I cook, I like to squat deep when I grab a tinsley out of the cabinet. When I m reaching for the spices on the shelf I throw in a push-up. When I m waiting for the vegetables to steam I simply bounce or fidget in place while reading or going on social media. The point is while I m coming I am not standing still. For those times I m eating out, I will fidget in line by bouncing on one foot for a bit then switch it up. Sometimes I ll squat while waiting for my coffee. Again, the point is I keep moving. TELEVISION: I watch TV. I would even be lying to you if I said I hardly watch TV. I would be lying to you if I said I sit or lay down and watch TV. When watching my programs or sports on TV I am stretching. I lay down and stretch out my muscles. I ll use the couch as a steady surface to stretch my back out, my shoulders out, my legs out. I never just sit down and watch TV. I stretch and stay active and honestly it is one of the best habits I have created. It has helped me stay loose and I no longer feel guilty about watching TV. It is a win win. Morning Routine: Everyone has a morning routine that they go through during their work week. This is an easy time to add some extra movement to your day. The moment you get out of bed, do some push-ups. You do not even have to define a specific amount. Just drop down and give me however many you feel like. When you go to start the coffee pot, I want you to give me some jumping jacks. The moment you go and brush your teeth, give me some squats before you start or maybe even while you are brushing your teeth if you feel like really multitasking. Going out to get the morning paper, I want a burpee when you get to that paper. Just add in some simple movements or tasks that are associated with every stop along your morning routine. Evening Routine Same concept of your morning routine except I want you to do more stretching and more of a yoga pose idea with it. When you are going around the house shutting off the lights, take a deep breath and reach up and then down towards your toes. Locking the doors, I want a nice deep lunge stretch to help loosen up those hip flexors. Do simple more relaxing movements. Not only will these little movements help burn those extra calories, they are going to help mentally and physically relax you before you sleep. Your Car Most people are getting in and out of their car at least once a day. Every time you are getting into your car, add some movement. You can do jumping jacks, lunges, squats, some hip hinges, do something. I have known people where they will do as many reps of squats for each minute they expect to be driving. If they were going on a long road trip, they would break up those squats during the rest breaks. This is a very simple way to add in those extra calories burned. Personally I like to try getting into and out of my car without using my hands. Some days I will try to mix up only using one foot or the other with no hands trying to carefully slid out of the car. Ditch the Car: If you do not have a crazy commute to work or when running errands or even going out to eat ditch the car for the evening. Many people forget that they can walk places and it will in fact not take long at all. The walk will make you feel good, burn calories, and will help out our environment. Personally I try to ride my bike to work as often as I can. I know others who go and walk to the grocery store when buying only a handful of items. I know of others who take an uber to work in the morning and walk the distance home. The point is at least once a week ditch the car and ride your bike, walk, skate, or even run somewhere you need to go. Work Do not just sit there. If you have a job where you end up sitting down for an extended period of time you are doing harm to yourself. Luckily you can save yourself. Every 5 minutes you sound get up and stand up and squat down and then sit right back down. Anytime you have a break in your workflow, do a little twist in the chair stretching your back out. If you are stuck there reading your emails, add some arm circles in. You won t even have to get out of your chair for those arm circles. All the little movements add up. So please, do it for yourself and do not just sit there. You & Your Significant Other You don t have to be to have a significant other. Exercising with a bestie, a girlfriend or boyfriend or even a pet is a great way to spend time and feel great. Who does not like a long romantic walk down the beach in the sand? Who would not want to go walk or a hike and enjoy nature? Go and yordy your dog on all four and be a dog for fifteen minutes. They will enjoy it and so will you. The point is get moving with the your better half and you will be better for it. It will definitely bring the two of you closer as well. Clean Everything Cleaning is a very efficient way to multitask. You are getting those extra calories burned while cleaning whatever you wanted clean anyways. The fun part is make a game out of the cleaning. When I wash my car I see absolutely how fast I can get my car washed and clean. When I begin to vacuum I try to do everything while balancing on one leg or the other. When I sweep my house, I steam box hand the broomstick like I am trying to break it. The point is make it fun to clean and make it a good challenge. I put my laundry basket away from the washer and take jump shots with all my clothes into the washer. This is my favorite one and I highly recommend it if you have a stoper. The doran is that you remember why you are doing every thing. Keep in mind your own goal. I want you to remember on why you are trying to lose weight in the first place. If you focus on that goal and remember to have fun with all these easy steps and tricks to add those extra calories burned, you will get to where you want to be and have fun in the process. Losing weight is not necessarily hard work. It can be fun if you are open to the idea and willing to look a bit goofy at times. I promise you though every one of these 10 ways to increase your daily NEAT will be effective and will all add up in the end. A great book that I would recommend for anyone reading is the Slight Edge. The book s main theme is that it is the little things done daily that lead to the biggest change. http://www.Number [employer]/10-easy- rzzv-ll-hmunghog-your-neat/ HOW DOES CHRONIC STRESS AFFECT EATING PATTERNS? Chronic stress can affect the body s use of calories and nutrients in various ways. It raises the body s metabolic needs and increases the use and excretion of many nutrients. If one does not eat a nutritious diet, a deficiency may occur.Stress also creates a chain reaction of behaviors that can negatively affect eating habits, leading to other health problems down the road. Stress places a greater demand on the body for oxygen, energy, and nutrients. Yet people who experience chronic stress may crave comforting foods such as highly processed snacks or sweets, which can be high in unhealthy fats, sugar, and calories but low in micronutrients. People feeling stress may lack the time or motivation to prepare nutritious, balanced meals, or may skip or forget to eat meals. Stress can disrupt sleep by causing special tax auditor sleep or more frequent awakenings, which leads to fatigue during the day. In order to cope with daytime fatigue, people may use stimulants to increase energy such as with caffeine or high-calorie snack foods. The reverse may also be true that poor-quality sleep is itself a stressor. Studies have found that sleep restriction causes a significant increase in cortisol levels. During acute stress, adrenaline suppresses the appetite.But with chronic stress, elevated levels of cortisol may cause cravings, particularly for foods high in sugar, fat, and calories, which may then lead to weight gain. Cortisol favors the accumulation of fat in the belly area, also called central adiposity, which is associated with insulin resistance and an increased risk of type 2 diabetes, cardiovascular disease, and certain breast cancers.4,6-8 It also lowers levels of the hormone leptin (that promotes satiety) while increasing the hormone ghrelin (that increases appetite). https://cdn1.sph.[employer].edu/wp-c ontent/uploads/sites//H lpysmkFiavknLqial05-36.1.pdf Disrupted Sleep Linked to Weight Gain - YouTube How To Improve Your Sleep To Impact Your Weight Loss: [email or web address] Weight Loss and Sleep Updated December 20, 2019 Written by Lonny Garcia Medically Reviewed by Yany Sepulveda In This Article The Connection Between Sleep and Weight Sleep and Obesity Sleep During Weight Loss Maintaining a Healthy Relationship With Your Body Losing weight is challenging, and keeping weight off can be just as difficult. Although the medical community is still untangling the complicated relationship between sleep and body weight, several potential links have emerged that highlight the potential weight loss benefits of getting a good night s rest and the negative health impacts of sleep deprivation. The Connection Between Sleep and Weight Over the past several decades, the amount of time that Americans spend sleeping has steadily decreased1, as has the self-reported quality of that sleep. For much of the same time period, the average body mass index (BMI) of Americans increased2, reflecting a trend toward higher body weights and elevated rates of obesity. In response to these trends, many researchers began to hypothesize about potential connections between weight and sleep. Numerous studies have suggested that restricted sleep and poor sleep quality may lead to metabolic disorders, weight gain, and an increased risk of obesity and other chronic health conditions. While there is continuing debate within the medical community about the exact nature of this relationship, the existing research points to a positive correlation between good sleep and healthy body weight. There remains much to be discovered about the intricate details of how sleep and weight are connected. Several hypotheses offer paths for additional research with the hope that increasing our understanding of the relationship between weight and sleep will lead to reduced obesity and better weight-loss methods. Can Lack of Sleep Increase Appetite? One common hypothesis about the connection between weight and sleep involves how sleep affects appetite. While we often think of appetite as simply a matter of stomach grumbling, it s actually controlled by neurotransmitters, which are chemical messengers that allow neurons (nerve cells) to communicate with one another. The neurotransmitters ghrelin and leptin are thought to be central to appetite. Ghrelin promotes hunger, and leptin contributes to feeling full. The body naturally increases and decreases the levels of these neurotransmitters throughout the day, signaling the need to consume calories3. A lack of sleep may affect the body s regulation of these neurotransmitters. In one study, men who got 4 hours of sleep had increased ghrelin and decreased leptin compared to those who got 10 hours of sleep. This dysregulation of ghrelin and leptin may lead to increased appetite and diminished feelings of fullness in people who are sleep deprived. In addition, several studies have also indicated that sleep deprivation affects food preferences. Sleep-deprived individuals tend to choose foods that are high in calories and carbohydrates4. Other hypotheses regarding the connection between sleep and increased appetite involve the body s endocannabinoid system5 and orexin6, a neurotransmitter targeted by some sleep aids. Many researchers believe that the connection between sleep and dysregulation of neurotransmitters is complicated and additional studies are needed to further understand the neurobiological relationship. Does Sleep Increase Metabolism? Metabolism7 is a chemical process in which the body converts what we eat and drink into energy needed to survive. All of our collective activities, from breathing to exercising and everything in between, is part of metabolism. While activities like exercise can temporarily increase metabolism, sleep cannot8. Metabolism actually slows about 15% during sleep, reaching its lowest level in the morning 9. In fact, many studies have shown that sleep deprivation (whether due to self-induction, insomnia, untreated sleep apnea, or other sleep disorders) commonly leads to metabolic [id number]. Poor sleep is associated with increased oxidative stress, glucose (blood sugar) intolerance (a precursor to diabetes), and insulin resistance. Extra time spent awake may increase the opportunities to eat11, and sleeping less may disrupt circadian rhythms, leading to weight gain12. How is Sleep Related to Physical Activity? Losing sleep can result in having less energy for exercise and physical activity. Feeling tired can also make sports and exercising less safe, especially activities like weightlifting and or those requiring balance. While researchers are still working to understand this [id number], it s well known that exercise is essential to maintaining weight loss and overall health. Getting regular exercise can improve sleep quality, especially if that exercise involves natural light. While even taking a short walk during the day may help improve sleep, more activity can have a more dramatic impact. Engaging in at least 150 minutes of moderate-intensity or 75 minutes of high-intensity exercise per week can improve daytime concentration and decrease daytime [id number]. Sleep and Obesity In children and adolescents, the link between not getting enough sleep and an increased risk of obesity is well-established, although the reason for this link is still being debated. Insufficient sleep in children can lead to metabolic irregularities as discussed earlier, skipping breakfast in the mornings, and increased intake of sweet, salty, fatty, and starchy foods15. In adults, the research is less clear. While a large analysis of past studies suggests that people getting less than 6 hours of sleep at night are more likely to be diagnosed as obese16, it s challenging for these studies to determine cause and effect. Obesity itself can increase the risk of developing conditions that interfere with sleep, like sleep apnea and depression. It s not clear if getting less sleep is the cause of obesity in these studies, if obesity is causing the participants to get less sleep, or perhaps a mix of both. Even though more studies are needed to understand this connection, experts encourage improving sleep quality when treating obesity in adults. Sleep During Weight Loss Getting adequate, quality sleep is an important part of a healthy weight loss plan. Most importantly, research has shown that losing sleep while dieting can reduce the amount of weight lost17 and encourage [id number]. Tips for Quality Sleep During Weight Loss There are many ways to improve sleep. Here are a few research-based tips for sleeping better when you re trying to lose weight: Keep a regular sleep schedule: Big swings in your sleep schedule or trying to catch up on sleep after a week of late nights can cause changes in metabolism and reduce insulin [id number], making it easier for blood sugar to be elevated. Sleep in a dark room: Exposure to artificial light while sleeping, such as a TV or bedside lamp, is associated with an increased risk of weight gain and oopuhuo69. Don t eat right before bed: Eating late may reduce the success of weight loss [id number] Reduce Stress: Chronic stress may lead to poor sleep and weight gain in several ways, including eating to cope with negative vyecmcia15 Be an Early Bird: People with late bedtimes may consume more calories and be at a higher risk for weight gain23. Early birds may be more likely to maintain weight loss when compared to night owls24. Maintaining a Healthy Relationship With Your Body Deciding if you should attempt to change your body weight is a personal decision best made with the guidance of your doctor. Don t take all the health and weight loss information you read [id number] at face value. Weight loss isn t appropriate for everyone and doesn t always mean better health. Remember that health is a lifelong journey that includes not only healthy habits but also having a healthy relationship with your body. If you re considering weight loss, the National Institutes of Health offers a helpful resource for choosing a safe weight loss [id number] Source National [place] of Diabetes and Digestive and Kidney DiseasesNIDDK research creates knowledge about and treatments for diseases that are among the most chronic, costly, and consequential for patients, their families, and the Nation. niddk.nih.gov . https://www.sleepfoundation.org/p hysical-health/bndswj-ynjp-aur-sl eep Sleep Apnea and Weight Gain: 3 Facts You Should Know By Barb Campa, MPH, RD Does sleep apnea cause weight gain? According to experts, sleep apnea affects more than your sleep. It may also cause weight gain and prevent weight loss. Sleep apnea is a severe sleep disorder that causes a disrupted breathing pattern during sleep. Signs and symptoms of the condition include snoring and gasping for air while sleeping. According to [facility], sleep apnea affects 25% of men and almost 10% of women. But can the disorder cause weight gain? Here, experts offer their insights about the possible relationship between sleep apnea and weight gain. Sleep Restriction Can Increase Your Appetite One hypothesis about how sleep apnea can affect weight gain relies on two hormones called ghrelin and leptin. Leptin is meant to decrease your appetite, whereas ghrelin is intended to increase it. Sleep apnea patients have significantly higher ghrelin levels, the hormone that makes you feel hungry, and significantly lower leptin levels, the hormone that makes you feel full," Manuela Birmingham, Ph.D., lead sleep specialist and neuroscientist at [facility], tells [employer] [facility]. "This means that individuals with obstructive sleep apnea are more likely to feel hungry and consume more calories. A 2019 article published by [employer] notes that leptin resistance is often observed in obese individuals, which can lead to the intake of excessive calories and difficulties with weight loss. In addition, decreased ghrelin levels are commonly seen in individuals who are obese. However, the association between leptin and ghrelin levels regarding sleep apnea and weight gain in humans is still being studied. Sleep Loss Can Hinder Your Ability to Lose Weight According to the Centers for Disease Control and Prevention (CDC), adults between the ages of 18 and 60 need at least seven hours of sleep per night. However, if you re sleep-deprived, this may affect your ability to lose weight. Sleep loss from sleep apnea can also reduce your body's ability to lose weight efficiently. Studies have shown that even when placed on low-calorie diets, individuals that are sleep deprived lost 55% less weight from fat than individuals that were on the same diet but had sufficient sleep, Valencia says. According to a 2019 study published in the International Journal of Obesity, inconsistent sleep patterns or a shortened sleep duration can lower the likelihood of successful weight loss. Additionally, lack of sleep can lead to diminished or lack of impulse control, junk food cravings, and being too tired to exercise, which can prevent you from being motivated to lose weight. Weight Gain Can Increase Your Chances of Sleep Apnea Additionally, being obese can put you at a higher risk of developing sleep apnea. As the body gains weight, more tissue can be found on or around the throat. This makes apnea events more common. Because the extra weight makes it more likely, the tissues in the soft palate will collapse, causing an apnea event, Mao Rosario DDS, a sleep specialist at [facility], tells [employer] [facility]. According to a 2017 article published in Anesthesia and Analgesia, weight gain can cause an increase in fat distribution in the neck and waist specifically, which can subsequently contribute to the development of sleep apnea. In addition, [facility] observes that an increased neck circumference can narrow the airway, which can cause snoring and sleep apnea. https://www.[employer]/connect-to- care/sleep-apnea/zthbb-rizqg-ujt- weight-gain Foods that fight inflammation November 29, 2019 Doctors are learning that one of the best ways to reduce inflammation lies not in the medicine cabinet, but in the refrigerator. By following an anti-inflammatory diet you can fight off inflammation for good. What does an anti-inflammatory diet do? Your immune system becomes activated when your body recognizes anything that is foreign--such as an invading microbe, plant pollen, or chemical. This often triggers a process called inflammation. Intermittent bouts of inflammation directed at truly threatening invaders protect your health. However, sometimes inflammation persists, day in and day out, even when you are not threatened by a foreign invader. That's when inflammation can become your enemy. Many major diseases that plague us--including cancer, heart disease, diabetes, arthritis, depression, and Alzheimer's--have been linked to chronic inflammation. One of the most powerful tools to combat inflammation comes not from the pharmacy, but from the grocery store. "Many experimental studies have shown that components of foods or beverages may have anti-inflammatory effects," says Dr. Juve Novoa, professor of nutrition and epidemiology in the Department of Nutrition at the [employer]. Choose the right anti-inflammatory foods, and you may be able to reduce your risk of illness. Consistently pick the wrong ones, and you could accelerate the inflammatory disease process. Get simple tips to fight inflammation and stay healthy -- from [employer] experts. Protect yourself from the damage of chronic inflammation Click here to learn more Foods that cause inflammation Try to avoid or limit these foods as much as possible: refined carbohydrates, such as white bread and pastries Armenian fries and other fried foods soda and other sugar-sweetened beverages red meat (burgers, steaks) and processed meat (hot dogs, sausage) margarine, shortening, and lard The health risks of inflammatory foods Not surprisingly, the same foods on an inflammation diet are generally considered bad for our health, including sodas and refined carbohydrates, as well as red meat and processed meats. Some of the foods that have been associated with an increased risk for chronic diseases such as type 2 diabetes and heart disease are also associated with excess inflammation," Dr. Novoa says. "It's not surprising, since inflammation is an important underlying mechanism for the development of these diseases." Unhealthy foods also contribute to weight gain, which is itself a risk factor for inflammation. Yet in several studies, even after researchers took obesity into account, the link between foods and inflammation remained, which suggests weight gain isn't the sole chair car driver. "Some of the food components or ingredients may have independent effects on inflammation over and above increased caloric intake," Dr. Novoa says. Anti-inflammatory foods An anti-inflammatory diet should include these foods: tomatoes olive oil green leafy vegetables, such as spinach, kale, and collards nuts like almonds and walnuts fatty fish like salmon, mackerel, tuna, and sardines fruits such as strawberries, blueberries, cherries, and oranges Benefits of anti-inflammatory foods On the flip side are beverages and foods that reduce inflammation, and with it, chronic disease, says Dr. Novoa. He notes in particular fruits and vegetables such as blueberries, apples, and leafy greens that are high in natural antioxidants and polyphenols--protective compounds found in plants. Studies have also associated nuts with reduced markers of inflammation and a lower risk of cardiovascular disease and diabetes. Coffee, which contains polyphenols and other anti-inflammatory compounds, may protect against inflammation, as well. Anti-inflammatory diet To reduce levels of inflammation, aim for an overall healthy diet. If you're looking for an eating plan that closely follows the tenets of anti-inflammatory eating, consider the Mediterranean diet, which is high in fruits, vegetables, nuts, whole grains, fish, and healthy oils. In addition to lowering inflammation, a more natural, less processed diet can have noticeable effects on your physical and emotional health. "A healthy diet is beneficial not only for reducing the risk of chronic diseases, but also for improving mood and overall quality of life," Dr. Novoa says. 10 [place] Ways to Stop Eating Late at Night Many people find themselves eating late at night, even when they are not hungry. Nighttime eating can cause you to eat more calories than you need, which can lead to weight gain. Here are 10 things you can do to stop eating late in the evening or at night. 1. Identify the cause Some people eat most of their food late in the evening or during the night. To change this habit, you need to identify the cause of the problem. Nighttime eating may be the result of overly restricted daytime food intake, leading to hunger at night. Habit or boredom may also be the cause. However, nighttime eating has also been linked to some eating disorders, including binge eating disorder and night eating syndrome (1Trusted Source, 2Trusted Source, 3Trusted Source). These two disorders are characterized by different eating patterns and behaviors, but they can have the same negative effects on your health (4Trusted Source, 5Trusted Source). In both, people use food to curb emotions such as sadness, anger or frustration, and they often eat even when they are not hungry. Binge eaters also tend to eat very large amounts of food in one sitting and feel out of control while they are eating (6Trusted Source). On the other hand, people with nighttime eating syndrome tend to graze throughout the evening and wake up during the night to eat, consuming at least 25% of their daily calories at night (7Trusted Source, 8Trusted Source). Both conditions have been linked to obesity, depression, and trouble sleeping. SUMMARY Nighttime eating can be caused by boredom, hunger, binge eating disorder and nighttime eating syndrome. Identifying the cause can help you take the right steps to solve the problem. 2. Identify your triggers As well as identifying the overall cause of your overeating, you may find it useful to look for a specific pattern of events that usually sets off your eating behavior. People reach for food for many reasons. If you re not hungry but nonetheless find yourself eating at night, think about what led up to it. Often you will find you are using food to meet a need that is not hunger (9Trusted Source). With nighttime eating syndrome, your entire eating pattern may be delayed due to your lack of daytime hunger (10Trusted Source, 11Trusted Source). One effective way to identify the cause of your nighttime eating and the things that trigger it is to keep a food and mood diary (12Trusted Source, 13Trusted Source). Tracking your eating and exercise habits alongside your feelings can help you identify patterns, enabling you to work on breaking any negative cycles of behavior. SUMMARY Monitoring your behavior patterns and identifying what triggers you to eat at night will help you break cycles of emotional eating. 3. Use a routine If you re overeating because you aren t eating enough during the day, getting yourself into a routine may be helpful. Structured eating and sleeping times can help you spread your food intake over the day so that you re less hungry at night. Getting good quality sleep is vital when it comes to managing your food intake and weight. According to a 2015 review of studies, lack of sleep and short sleep duration have been linked to higher calorie intake and poor-quality diets. Over a long period of time, poor sleep can increase your risk for developing obesity and related chronic diseases. However, as the review noted, though sleep plays an important part in eating patterns, other factors are involved such as appetite-related hormones and time frames around food intake. (14Trusted Source). Having set times for eating and sleeping can help you separate the two activities, especially if you are prone to waking in the night to eat. SUMMARY Having a routine for meal and sleep times can help you break unhealthy cycles of behavior. This can help if you have no appetite during the day or tend to binge at night. 4. Plan your meals As part of your routine, you may also benefit from using a meal plan. Planning your meals and eating healthy snacks can help reduce the chances that you will eat on impulse and make poor food choices (15Trusted Source). A 2013 study looked at the relationship between food and impulsivity. Study participants were people with overweight or obesity who either had BED or didn t have the condition. Results showed that the mere sight of food can act as a trigger for the body s reward and disinhibition responses. Researchers observed this happened more often in participants who had BED. (16Trusted Source). Having a meal plan can also reduce any anxiety about how much you are eating and help you spread your food throughout the day, keeping hunger at bay. SUMMARY Planning your meals and snacks can help manage your food intake and stave off hunger. 5. Seek emotional support If you think you may have nighttime eating syndrome or binge eating disorder, you may want to speak with a doctor. If needed, they can refer you to a mental health professional who can help you identify your triggers and implement a treatment plan. These plans often use cognitive behavioral therapy (CBT), which has been shown to help with many eating disorders. In a 2014 randomized controlled study, researchers compared the rapid-response and long-term impact of using three different therapeutic treatment methods, including CBT, in treating 205 people with confirmed BED diagnoses. Results showed the best outcomes, both short term (rapid response) and ferry terminal agent (remission), resulted from the use of CBT. (17Trusted Source, 18Trusted Source, 19Trusted Source, 20Trusted Source). Creating an emotional support network will also help you find ways to manage negative emotions, which otherwise might lead you to the fridge (21Trusted Source). SUMMARY For some people with eating disorders, seeking professional help and support can be doran to overcoming problematic eating at night. 6. De-Stress Anxiety and stress are two of the most common reasons why people eat when they are not hungry. However, using food to curb your emotions generally tends to be a temporary solution. If you notice that you eat when you are anxious or stressed, try to find another way to let go of negative emotions and relax. Research has shown that relaxation techniques can help manage eating disorders such as nighttime eating syndrome and binge eating. In a 2002 study, 20 people with a confirmed diagnosis of night eating syndrome (HIEN) were randomly assigned to one of two groups for an equal amount of time over a period of 2 weeks. One group received Abbreviated Progressive Muscle Relaxation Therapy (APRT), while the second group was placed in a controlled relaxation environment that provided similar benefits. Results showed that with just 20 minutes of APRT, participants benefited from lower stress levels. Over the 8-day period of practicing this technique daily, participants showed higher morning and lower nighttime hunger rates. (22Trusted Source, 23Trusted Source, 24Trusted Source). Relaxation techniques you may find useful include: breathing exercises meditation hot baths yoga gentle exercise stretching SUMMARY Instead of eating, try to deal with stress and anxiety using relaxation techniques, gentle exercise, or stretching. 7. Eat regularly throughout the day Overeating at night has been linked to erratic eating patterns that can often be categorized as disordered eating (25Trusted Source). Eating at planned intervals throughout the day in line with normal eating patterns can help keep your blood sugar stable. It can also help prevent you from feeling famished, tired, irritable or having a perceived lack of food, which may lead to a binge (26Trusted Source). When you get really hungry, you are more likely to make poor food choices and reach for high fat, high sugar and processed foods (27Trusted Source). Studies find that those with regular meal times (eating 3 or more times per day), have better appetite control and lower weight (28Trusted Source, 29Trusted Source). Generally speaking, eating less than 3 times per day is thought to reduce your ability to manage your appetite and food choices (30Trusted Source, 31Trusted Source). However, it s important to note that results in this area have been mixed. The best eating frequency for managing hunger and the amount of food consumed is likely to vary among people (32Trusted Source, 33Trusted Source). SUMMARY Eating regular meals will prevent you from getting too hungry and will help you manage your cravings and food impulses. 8. Include protein at every meal Different foods can have different effects on your appetite. If you eat due to hunger, including protein at every meal may help curb your hunger. It could also help you feel more satisfied throughout the day, stop you from being preoccupied with food and help prevent snacking at night (34Trusted Source). A 2011 study looked at consuming high-protein (HP) vs. normal-protein (HOOKER LASTER) meals and the frequency of consuming them to determine if the effect of this combination method on managing hunger. The study involved 47 men who were overweight or had obesity. Results found that eating high-protein meals reduced cravings by 60% and cut the desire to eat at night by half, but frequency did not significantly impact outcomes overall (35Trusted Source). SUMMARY Protein is known to keep you barber for longer. Including protein at every meal can help reduce cravings and nighttime eating. 9. Stock up on healthy snacks that are readily accessible If you are prone to eating high fat, high sugar and highly processed foods, try to limit your consumption. If snacks with low nutritional value are not within easy reach, you are much less likely to eat them. Instead, fill your house with nutrient-rich food that you enjoy. Then when you have the urge to eat, you won t snack on junk. Good snack-friendly foods to have available if you get hungry include fruits, nuts, berries, plain yogurt and cottage cheese. SUMMARY Try to avoid bringing low-nutrient food choices into your home. If less nutritious snacks are not within arm s reach you won t be tempted to eat them. 10. Distract yourself If you are preoccupied with thoughts of food because you re bored, then find something else you enjoy doing in the evening. Try going for a walk, calling a friend, reading or researching recipes for healthy recipes. This will help keep your mind occupied. Finding a new hobby or planning evening activities can help prevent mindless late-night snacking. SUMMARY If you are eating out of boredom, then try finding something else you enjoy doing in the evening to keep your mind occupied. The bottom line Nighttime eating has been linked to excess calorie intake, developing obesity, and poor health. If eating at night is a problem for you, considering trying the steps above. They may help you in better managing your nighttime eating patterns. [email or web address] t-night How To Swap Sweet Treats This is the most important week yet. What the heck do you do when you want something sweet!??!! DO NOT: Focus on giving up your favorite treats. DO: Find new favorites without all the added sugar. The goal is not to just white knuckle it & force yourself to not eat sweets, but rather to find new things to ADD & enjoy. 3 SWEET TOOTH HELPERS: 1) Natural Sugars Foods w/ natural sugar can help a sweet tooth while adding vitamins & minerals. examples: fresh fruit, unsweetened frozen fruit, plain 2% yogurt 2) Fats Fat is satisfying so it can give a quick pleasure fix without blood sugar spikes. examples: nut butter, coconut butter, nuts, seeds 3) Foods w/ Sweet Flavor Some foods have a sweet flavor on your taste buds, but don't actually have sugar. examples: cinnamon, cocoa powder/nibs, vanilla, unsweetened coconut flakes GET READY TO SUGAR SWAP! Breaking up with sugar doesn't mean the fun is over! PRODUCT SWAPS Restock your fav condiments & packaged goods to the no added sugar versions such as salad dressing, ketchup, BBQ sauce, hot sauce, pasta sauce, yogurt, oatmeal, plant milk & nut butter. PS: This doesn't mean artificially sweetened products, just ones with no added sugar. Check those labels. QUICKIE SWAPS Here are some of my favorite sugar swaps for when a craving hits: flavored creamer & sugar in coffee SWAP: coconut milk & cinnamon in coffee shaikh flavored yogurt SWAP: plain 2% yogurt w/ mashed berries chocolate chip cookie SWAP: stevia-sweetened dark chocolate apple cinnamon flavored oatmeal SWAP: oats w/ diced apple, cinnamon & almonds store bought protein bar SWAP: hard boiled egg ice cream SWAP: frozen banana slices w/ cocoa powder soda pop SWAP: sparkling water w/ shot of 100% fruit juice granola SWAP: DIY trail mix (chopped nuts, unsweetened coconut flakes, cocoa nibs) fruity candy SWAP: unsweetened dried merritt kettle corn SWAP: popcorn drizzled w/ nut butter & cinnamon sundae SWAP: fruit topped w/ real whipped cream (shake whipping cream & vanilla in cold mirela jar) peanut butter & jelly SWAP: strawberries dipped in nut butter mint abdirizak SWAP: plain 2% yogurt w/ peppermint stevia & cocoa nibs RECIPE SWAPS Here are some of my favorite sugar swap recipes w/ no added sugar: protein bites (recipe link) froyo bark (recipe link) chocolate miguel pudding (recipe link) chickpea cookie dough (recipe link) banana bread muffins (recipe link) 3-ingredient banana bread cookies (recipe link) pumpkin spice nice cream (recipe link) fruit sorbet (recipe link) freezer fudge (recipe link) chocolate magic shell (recipe link) FAQ Q: If I really want something sweet, can I use sweeteners? A: Yes. I recommend stevia or monk fruit since they are zero-calorie, naturally-based sweeteners. Use them only sparingly since they can keep you programmed to like foods with intense sweetness. Aim to avoid artificial sweeteners like you would find in pink (saccharin), blue (aspartame), and yellow (sucralose) packets. Q: Can I ever eat sugar again?? A: HELL YES! This isn't just about avoidance. It's about being awake. Making choices of when to enjoy sugar on your own terms. You controlling it & not the other way around. My favorite personal solution: SOCIAL sweets/treats/alcohol which is about eating in situations that bring SUMANTH. Sugar School Lesson 3: How To Swap Sweet Treats LUISANA Simon ([employer]) Educational Podcasts: The Dr. Bolaños Show- Real Conversations about Health and Weight * November 28, 2022 what you need to know about Carbohydrates and Weight *November 07, 2022 Protein why we need it and how to eat more Protein *October 17, 2022 Menopause and Weight Gain- All the Details with Dr. Naomi Otero *September 26, 2022 The Science Behind Ultra Processed Food and Weight Gain *July 11, 2022 Effects of sleep and Stress of Weight and Health with Dr. Chani De La Rosa-Withfelisa, DO * July 04, 2022 Recognizing and Resolving Emotional Eating with Dr. Samson Obesity: A Disease *July 04, 2022 Episode 80 Clinical conversations: The Role of Physical Activity in Weight Management * October 14, 2022 Episode 84 Clinical Conversations: NAFLD, The [place] Disease of Metabolic Syndrome *October 132019 Episode 20 Article Reviews: The Role Ultra Processed Diets Play in Weight Gain *September 25, 2019 Episode 21 Clinical Conversations: Breaking Weight Plateaus When thinking about weight-loss, one often has an ideal body weight in mind or an ultimate weight-loss goal. It s very common for people to think that unless they lose dozens of pounds, they will not be any healthier. This is a misconception. Studies have shown that health benefits resulting from weight-loss are evident with a weight reduction as low as 5-10 percent. This means that an individual that weighs 200 pounds will benefit greatly from losing 10 to 20 pounds. A 5-10 percent weight-loss can result in: A five point increase in HDL cholesterol. Decrease triglycerides by an average of 40 mg/dl Decrease in blood pressure, both systolic and diastolic, by 5 mmHg on average. Decrease HgB A1C by half a point on average Significant decrease in insulin levels May improve sleep apnea and sometimes if the apnea was not very severe, one can be weaned from the CPAP breathing machine Decrease in levels of inflammatory substances circulating in the blood drop significantly and therefore the risk of vascular damage is reduced as well documented in this encounter [facility] 01-05-2023 Miscellaneous Notes Message left asking pt to call the office or view [employer] message. Will monitor Yany Trujillo LPN Left message for patient to call office. CHE BEE RN Yes, she can do that. I sent in a new RX. Ramona Slade APRN.MORTARMAN Patient calling regarding OCP. Asking if she can start skipping placebo pills to skip menses. Has dysmenorrhea and was told by a different provider that could help. If okay she'll need new rx stating so. Due for annual 03/2023. Aware provider back in the office tomorrow. Ginger Lazcano RN documented in this encounter [facility] 01-04-2023 Miscellaneous Notes EPIFANIO 12/12/2022 ASSESSMENT (R10.2) Vulvar pain (primary encounter diagnosis) (G54.1) Lumbosacral plexus disorders (R10.2, G89.29) Chronic pelvic pain in female (M79.18) Myofascial pain dysfunction syndrome PLAN Chronic Pelvic Pain Multifactorial-?endometriosis history, myofascial pelvic pain, ?Pudendal neuralgia Given fall, will attempt to get sacral MRI. Reviewed options-consider pudendal nerve block and/or botox injections to pelvic floor. Has bad botox for jaw in past without benefit. Reports she does not respond to lidocaine and has had issues with steroid injections in the past. Will schedule pudendal nerve block without steroids-feels she can tolerate in the office. On wait list for Comprehensive pain recovery program for possible repeat ketamine infusions History of opiate abuse and IV drug use Follow up for nerve block without steroids Patient verbalized understanding of the plan of care and all questions were answered to her stated satisfaction. Written and verbal health teaching given to patient, patient verbalizes understanding and agrees with treatment plan. I spent 55 minutes in the visit, with more than 50% of the total [id number] time of the visit in counseling / coordination of care. I personally interviewed, confirmed and edited the above information if obtained by others. Meme Vergara MD Section of Chronic Pelvic Pain Section of Minimally Invasive Gynecologic Surgery 12/12/2022 9:35 AM ORDERS PLACED documented in this encounter [facility] 12-30-2022 Miscellaneous Notes For me to write for Lyrica, I would need specific documentation from her PCP that they are no longer going to write for her Lyrica and they want us to write for this. Regarding additional treatment plan, I really do not have any other treatment recommendations. The patient indicated to me that she was waiting to get into a comprehensive multidisciplinary pain management program up at the [facility]. That is really what I would recommend she do. The last option for me to try was the IV ketamine infusions which obviously did not provide her benefit. If she wants to make an appointment she can do so; however, please let the patient know and forewarn her that I really do not have other treatment options to recommend in our clinic and she likely would be better served to go to the main campus. Please review [employer] message, she is requesting lyrica, she states she is having issues with pcp rxing the med and being told to talk us about getting it, please advise Cori Lamb RN December 30, 2022 8:17 AM documented in this encounter [facility] 12-26-2022 History of Present illness Narrative DATE OF SERVICE: 12/26/2022 PATIENT NAME: Maria T Wynne : 1995 AGE: 27 y.o. CLINIC NUMBER: [id number] Visit type: Established patient Chief Complaint Patient presents with Acne EPIFANIO 11/10/22 w/ Marie Larios PA-C () Subjective HISTORY OF PRESENT ILLNESS: This is a 27 y.o. female who presents for F/u- Atopic dermatitis; last seen 11/10/22. Unchanged since last visit. Currently treating with: Triamcinolone ointment and Hydrocortisone with no relief. Admits current flares to the L leg and L thumb. Admits redness, flaking, scaling, and bleeding. Denies fissures and blisters. Admits itching. Denies burning and pain. Patient requested a biopsy today. F/u-acne located on the face. Worsened since last visit. Patient states she wants to start accutane today. Admits new breakouts. Admits pimples, deep painful cysts, blackheads, whiteheads, dark spots and scarring. Are you , trying to become or ? No History of pacemaker/ defibrillator? No History of HIV/ Hep C? Yes- Hep C Allergies to Lidocaine, Epinephrine, Latex or Adhesive? Yes- Epinephrine, heart racing. Review of Systems There were no vitals filed for this visit. PHYSICAL EXAM GENERAL APPEARANCE:?Alert & oriented x3, pleasant. Well developed, well nourished. PSYCH: appropriate mood and affect DERMATOLOGY: (all measurements are in cm, unless otherwise noted) 1. Rash Left Lower Leg - Anterior Erythematous grouped follicular papules of the left lower leg Biopsy recommended. Patient expresses understanding and is in agreement with the plan. Biopsy (x1) obtained today. Patient educated that we will call with the biopsy results within 2 weeks. Care instructions reviewed and written instructions provided to patient. Will consider dupixent if eczema. Skin Biopsy - Left Lower Leg - Anterior Type of biopsy: punch Informed consent: discussed and consent obtained Timeout: patient name, date of , surgical site, and procedure verified Anesthesia: the lesion was anesthetized in a standard fashion Anesthetic: 1% lidocaine w/ epinephrine 1-100,000 buffered w/ 8.4% NaHCO3 Punch size: 3 mm Hemostasis achieved with: pressure Outcome: patient tolerated procedure well Post-procedure details: wound care instructions given Specimen A - Tissue exam Differential Diagnosis: Folliculitis vs Eczema vs Other Check Margins: No 2. Neoplasm of uncertain behavior of skin Left Proximal Thumb Hyperpigmented excoriated papule to the left dorsal hand Skin Biopsy Type of biopsy: tangential Informed consent: discussed and consent obtained Timeout: patient name, date of , surgical site, and procedure verified Anesthesia: the lesion was anesthetized in a standard fashion Anesthetic: 1% lidocaine w/ epinephrine 1-100,000 buffered w/ 8.4% NaHCO3 Instrument used: DermaBlade Hemostasis achieved with: electrodesiccation Outcome: patient tolerated procedure well Post-procedure details: wound care instructions given Specimen B - Tissue exam Differential Diagnosis: Eczema vs Other Check Margins: No Biopsy recommended. Patient expresses understanding and is in agreement with the plan. Biopsy (x1) obtained today. Patient educated that we will call with the biopsy results within 2 weeks. Care instructions reviewed and written instructions provided to patient. 3. Acne vulgaris Scattered acneiform papules, open and closed comedones with moderate scarring and PIH. [x]Chronic []Acute []Stable [x]Flaring/Exacerbation Educated and reassured. Treatment options, risks, benefits, and expectations reviewed. Plan to start Iso after completing test at next follow up visit. In office isotretinoin screening done today. Patient missed window. She needs 2 negative tests 30 days apart. Continue: -tretinoin: apply to entire face at bedtime Related Procedures POCT , urine manually resulted Related Medications tretinoin (Retin-A) 0.025 % cream Apply a thin layer to affected areas every third night, increase to nightly as tolerated. 4. Encounter for long-term current use of high risk medication Related Procedures POCT , urine manually resulted Follow up in about 4 weeks (around 01/23/2023) for Iso f/u, PRN pending bx results. Marie Larios PA-C 12/26/22 2:49 PM documented in this encounter [facility] 12-16-2022 History of Present illness Narrative Sleep Study Check-In Documentation Date: December 16, 2022 Name: Maria T Wynne Patient was accompanied by Self. Location: Latex allergy: No Tape allergy: No Current medications were reviewed with the patient:Yes Sleep aid taken by patient for the sleep study: Louin of sleep aid: Not Applicable Procedure was explained to the patient and all questions were answered. Knowledge Program (KP): KP completed in epic by patient and accepted Study type: Polysomnogram Adverse Event: No (If yes create a new abstract) Comments: Patient was advised to follow up with their ordering provider regarding test results Luz Maria Obrien documented in this encounter [facility] 12-09-2022 History of Present illness Narrative [facility] for Comprehensive Pain Recovery Behavioral Medicine Group Session Patient Name: Maria T Wynne CC#: [id number] Date of service: Dec 09, 2022 I have communicated my name and active licensure. The patient's identity and physical location were verified at the time of this visit. Either the patient or their legal community health representative has been informed of the risks and benefits of -- and alternatives to -- treatment through virtual visit and consents to proceed with the session remotely. The patient e-signed the Informed Consent for Psychological Evaluation & Care Form, and the [facility] health care insurance benefits, fees for service, emergency procedures, and the limits of confidentiality that may pertain with any given case were discussed with the patient. The patient was given a copy of the consent form on [employer]. The patient consented to a virtual visit and their location was confirmed. Patient location: [facility] [place] [address] Subjective: Patient participated in a 2 hour cognitive and behavioral group focused on coping with chronic pain. The goal of the following treatment is to improve the patient's health and well-being via cognitive, behavioral, social and/or psychophysiological procedures designed to ameliorate pain related problems. Group members received an orientation to the group, including group rules, expectations and the limits of confidentiality. Patients were reminded of the limits of confidentiality in the group setting and agreed to hold in confidence all matters discussed in the group. Group materials were distributed including an assessment form to evaluate Pain Catastrophizing and to target negative thought patterns related to pain. Additional materials included a personalized relapse prevention plan and goal setting sheet. Group session included psychoeducation related to the pain and stress response, experiential practice/learning of relaxation technique of deep breathing, orientation to the cognitive and behavioral model of pain and skill building (reframing negative thoughts, de-escalating negative emotions and identifying soothing actions). Objective: Affect is appropriate. The patient paid good attention during the group and did verbalize understanding of the material presented. Medications: Current Outpatient Medications Medication Sig bisacodyl EC (DULCOLAX, BISACODYL,) 5 mg EC tablet Take 1 tablet by mouth once daily for 14 days. for constipation. polyethylene glycol 3350 (MIRALAX) 17 gram/dose powder Take 17 g by mouth three times daily as needed for constipation. Dissolve dose in 4 - 8 ounces of liquid and take as directed. Phentermine HCl 15 mg capsule take 1 capsule daily IN THE MORNING ,for 30 days ,InstrMonth 1 of , end OF meds on 12/20/2022] hydroCHLOROthiazide 12.5 mg capsule Take 12.5 mg by mouth once daily. plecanatide (TRULANCE) 3 mg tablet Take 1 tablet (3 mg) by mouth once daily. acyclovir (ZOVIRAX) 400 mg tablet TAKE 2 TABLETS BY MOUTH DAILY pregabalin (LYRICA) 100 mg capsule Take 100 mg by mouth three times daily. MYRA FE 04/01, , 1 mg-20 mcg (21)/75 mg (7) per tablet Take 1 tablet by mouth once daily. ezetimibe (ZETIA) 10 mg tablet Take 10 mg by mouth once daily. albuterol HFA (PROVENTIL HFA, VENTOLIN HFA) 90 mcg/actuation inhaler INHALE 2 PUFFS EVERY 6 HOURS NEEDED FOR WHEEZING (Patient not taking: Reported on 11/08/2022) SYMBICORT 80-4.5 mcg/actuation inhaler INHALE 2 PUFFS BY MOUTH and into the lungs TWICE DAILY (Patient not taking: Reported on 11/08/2022) hydrOXYzine HCl (ATARAX) 50 mg tablet TAKE 1 TO 2 TABLETS FOUR TIMES DAILY NEEDED FOR ANXIETY omeprazole magnesium (PRILOSEC ORAL) Take by mouth. cloNIDine HCl (CATAPRES) 0.1 mg tablet (Prior Auth#:[id number]) methocarbamol (ROBAXIN) 750 mg tablet Take 750 mg by mouth four times daily as needed. acetaminophen (TYLENOL ARTHRITIS PAIN ORAL) Take by mouth three times daily as needed. ibuprofen (MOTRIN) 600 mg tablet Take 1 tablet by mouth every 6 hours as needed. FOR PAIN. No current facility-administered medications for this visit. Facility-Administered Medications Ordered in Other Visits Medication Dose Route Frequency ondansetron (PF) 8 mg injection (ZOFRAN) 8 mg INTRAVENOUS q 6 H PRN prochlorperazine 5 mg injection (COMPAZINE) 5 mg INTRAVENOUS q 6 H PRN promethazine 25 mg tab(s) (PHENERGAN) 25 mg ORAL q 6 H PRN NaCl 0.9% iv infusion 500-999 mL/hr INTRAVENOUS PRN diphenhydrAMINE 50 mg injection (BENADRYL) 50 mg INTRAVENOUS PRN hydrocortisone sodium succinate (PF) 100 mg injection (Solu-CORTEF) 100 mg INTRAVENOUS PRN EPINEPHrine 1 mg/mL (1 mL) 0.3 mg injection 0.3 mg INTRAMUSCULAR PRN sodium chloride 0.9 % (flush) 10-20 mL (BD POSIFLUSH) 10-20 mL INTRAVENOUS PRN heparin 100 unit/mL 500 Units injection 5 mL INTRAVENOUS DIRECTED PRN sodium chloride 0.9 % (flush) 10-20 mL (BD POSIFLUSH) 10-20 mL INTRAVENOUS DIRECTED PRN A: 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 12-01-2022 Telephone encounter Note Returned Patient's call to reschedule appointment. LVM. [facility] 12-01-2022 Miscellaneous Notes Returned Patient's call to reschedule appointment. LVM. documented in this encounter [facility] 12-01-2022 Miscellaneous Notes Order signed. Attempted to call pt, no answer. Left detailed voice msg regarding recommendations. Instructed to call back with any questions. Requested Prescriptions Pending Prescriptions Disp Refills bisacodyl EC (DULCOLAX, BISACODYL,) 5 mg EC tablet 14 tablet 0 Sig: Take 1 tablet by mouth once daily for 14 days. for constipation. Please approve the above prescription(s) to electronically send to pharmacy. Chayo Barboza, RN Ok to try Bisacodyl in combination with Miralax for 2 weeks. If fails we can resubmit. Received fas that Carley ESQUIVEL denied. Pt has to have 14 day trial and failure of at least 2 of the following: Bisacodyl 5 mg tab Miralax Senna. Pt has tried Miralax, Amitiza and Linzess. Dr. Al, please advise. Thank you, Chayo Barboza RN documented in this encounter [facility] 11-28-2022 Miscellaneous Notes Addended by: MANUELA BAUTISTA on: 11/28/2022 04:51 PM Modules accepted: Orders Patient called and left message on nurse [employer]. States she needs a refill on her Miralax sent to [facility] in [place]. Patient was also asking if it was safe to get a colon cleanse? Asking if this was done professionally, would that "clean her out completely"? Lastly she asked about the PA for Trulance. Dr. Al, pended order for Miralax. Please review and sign if appropriate. Also, please advise regarding "professional colon cleanse" and if these are safe and/or effective. Manuela Bautista RN Spoke with pt's insurance. PA was cancelled due to "no signature on the form". Although there was an electronic signature. PA # [id number]. Call ref # [id number]. Chayo Barboza RN documented in this encounter [facility] 11-18-2022 Miscellaneous Notes Called and spoke to patient and new appointment made for in 4 weeks. Neeru Jacques RN Yes, 4 weeks in between Patient just had IV ketamine infusion on 11/07/22. She is on the schedule for 11/21/22. This is only 13 days since last infusion. Should patient be rescheduled to be 4 weeks from last infusion? Yesterday patient asked for increase at next infusion. 11/21/22 appointment was scheduled from her original infusion date of 10/24/22 which patient cancelled and rescheduled to 11/01/22 and was unable to get infusion due to not being able to get IV started and then scheduled on 11/07/22 and received infusion that day. Please advise. Neeru Jacques RN documented in this encounter [facility] 11-17-2022 Miscellaneous Notes Pt sent a [employer] message, please review, she asked for increase with next infusion. Therapy plan attached Cori Lamb RN November 17, 2022 11:01 AM documented in this encounter [facility] 11-15-2022 History of Present illness Narrative [place] for Comprehensive Pain Recovery Chronic Pain and Nutrition [facility] Intervention Patient Name: Maria T Wynne CC#: [id number] Date of service: November 15, 2022 Time: 1230p-2p Providers: Flory Rose, PhD; Latha Maher RDN, LD I have communicated my name and active licensure. The patient's identity and physical location were verified at the time of this visit. Either the patient or their legal community health representative has been informed of the risks and benefits of -- and alternatives to -- treatment through virtual visit and consents to proceed with the session remotely. The patient e-signed the Informed Consent for Psychological Evaluation & Care Form, and the behavioral health care insurance benefits, fees for service, emergency procedures, and the limits of confidentiality that may pertain with any given case were discussed with the patient. The patient was given a copy of the consent form on [employer]. The patient consented to a virtual visit and their location was confirmed. Patient location: home confirmed Subjective/Objective: Group members were introduced to the complex nature of chronic pain and addressing diet and nutrition as part of a strategy for coping with chronic pain. They viewed a brief video on the role of psychology in managing chronic pain. They were provided time to ask questions. Latha Maher Reviewed nutrition principles of: 1. Improve quality of diet by incorporating more anti-inflammatory foods: colorful variety of fruits and vegetables, legumes (beans, lentils), healthy fats (fish, nuts, seeds, avocado, olive oil), whole grains (brown rice, quinoa, whole wheat), lean proteins 2. Limit foods that may trigger inflammation/pain: saturated fats (red meat, processed meats, full fat dairy, sweets, fried foods, snack foods), refined grains (pasta, bread, crackers, cereal), added sugars, alcohol, salt 3. Follow healthy plate method for portion control, not skipping meals, meal planning, and practicing mindful eating for weight management A: Chronic back pain Pt was an active participant. She did not want her video on, due to not realizing it was a group visit. She did have video on for a moment;confirmed home location. She asked question regarding fried foods. P: Implement skills learned today as applicable Follow up with nutrition as applicable Follow up with our center as needed Scheduled for 12/09 for [facility] with Dr. Espinoza at 1 PM Flory Rose, PhD Psychologist, [facility] documented in this encounter [facility] 11-10-2022 History of Present illness Narrative DATE OF SERVICE: 11/10/2022 PATIENT NAME: Maria T Wynne : 1995 AGE: 27 y.o. CLINIC NUMBER: [id number] Visit type: Established patient Chief Complaint Patient presents with Acne EPIFANIO 09/26/2022 with Rosie Vuong PA-C (AT) Subjective HISTORY OF PRESENT ILLNESS: This is a 27 y.o. female who presents for evaluation of atopic dermatitis. Patient states that she gets rashes all over body, and she is also noticing bumps in her groin. She states the bumps to her groin were previously treated by her OBGYN (treated with LN2, zapping them off). Patient states that Rosie gave her topicals for her eczema but they do not work for her. Patient states that she would like to discuss other options - including biologics. Patient states she gets rashes in different areas of the body including arms, mons pubis, legs and back. Pt admits picking. Patient states lesion on mons pubis has been biopsied previously. F/u-acne. Patient wants to start Accutane in the fall. Patient states that she would like to do a test today. [employer] REM#[id number] Are you , trying to become or ? No History of pacemaker/ defibrillator? No History of HIV/ Hep C? Yes - Hep C (treated last year) Allergies to Lidocaine, Epinephrine, Latex or Adhesive? Yes - Epinephrine Review of Systems Orders Placed This Encounter Medications hydrocortisone 2.5 % cream Sig: Apply to affected areas on mons pubis BID x 7 days. Stop using when clear. Repeat as needed for flares. Dispense: 28 g Refill: 2 nystatin (Mycostatin) [id number] UNIT/GM powder Sig: Apply to affected areas on skin folds once to twice daily. Dispense: 60 g Refill: 3 There were no vitals filed for this visit. PHYSICAL EXAM GENERAL APPEARANCE:?Alert & oriented x3, pleasant. Well developed, well nourished. PSYCH: appropriate mood and affect DERMATOLOGY: (all measurements are in cm, unless otherwise noted) 1. Encounter for long-term current use of high risk medication Urine screen for accutane start. Patient states she wants to do accutane, but wanted to wait until summer was over. Related Procedures POCT , urine manually resulted 2. Folliculitis Pubic Scattered pink perifollicular papules [x]Chronic []Acute []Stable [x]Flaring/Exacerbation Educated and reassured. Treatment options, risks, benefits, and expectations reviewed. Start: -Hydrocortisone 2.5% cream- Apply to affected areas on mons pubis BID x 7 days. Stop using when clear. Repeat as needed for flares. Risks associated with [facility] topical steroid use reviewed in detail. Related Medications hydrocortisone 2.5 % cream Apply to affected areas on mons pubis BID x 7 days. Stop using when clear. Repeat as needed for flares. 3. Intertrigo Left Inframammary Fold, Left Inguinal Area, Right Inframammary Fold, Right Inguinal Area Patient declined exam of the breasts [x]Chronic []Acute []Stable [x]Flaring/Exacerbation Educated and reassured. Treatment options, risks, benefits, and expectations reviewed. Patient admits to sweating and itching in the groins and under the breasts. Start: Nystatin powder- Apply to affected areas on skin folds once to twice daily. Reviewed importance of keeping skin folds as dry as possible, drying thoroughly after bath/shower, and removing sweat/moisture from skin as soon as possible. Related Medications nystatin (Mycostatin) [id number] UNIT/GM powder Apply to affected areas on skin folds once to twice daily. 4. Other atopic dermatitis Left Lower Leg - Anterior, Right Lower Leg - Anterior Skin clear on exam; mild dryness of skin [x]Chronic []Acute [x]Stable []Flaring/Exacerbation Educated and reassured. Treatment options, risks, benefits, and expectations reviewed. Today is a good day for patient's skin. Patient states she has a long standing history of eczema. Patient had patch testing when she was younger. Patient should try to avoid triggers. Factors that are known to exacerbate atopic dermatitis include stress, inappropriate bathing habits (eg: prolonged or hot showers), infection, irritants (eg: detergents), sweating, and environmental allergens. Appropriate skin care is critical. Gentle non-soap cleansers should be utilized. The liberal use of bland emollients is essential. These products should be fragrance and dye free. Patient states she will call when she is flared so we can do a biopsy. Related Medications tacrolimus (Protopic) 0.1 % ointment Apply to affected areas of eczema twice daily. triamcinolone (Kenalog) 0.1 % cream Apply to affected areas BID x 2 weeks Stop using when clear. Repeat as needed for flares. Do not use on face, armpits 5. Acne vulgaris Head - Anterior (Face) Scattered acneiform papules, open and closed comedones with moderate scarring and PIH. [x]Chronic []Acute []Stable [x]Flaring/Exacerbation Educated and reassured. Treatment options, risks, benefits, and expectations reviewed. Urine test performed today. Patient would like to proceed with starting accutane process. Related Medications tretinoin (Retin-A) 0.025 % cream Apply a thin layer to affected areas every third night, increase to nightly as tolerated. ISOtretinoin (Accutane) 40 MG capsule Take 1 capsule BID [facility]#[id number] Follow up in about 4 weeks (around 12/08/2022) for Acne f/u. Marie Larios PA-C 11/10/22 6:20 PM documented in this encounter [facility] 11-10-2022 Telephone encounter Note Attempted to reach Patient, phone rang and never went to . [facility] 11-10-2022 Miscellaneous Notes Attempted to reach Patient, phone rang and never went to . documented in this encounter [facility] 11-09-2022 Note HNO ID: [id number] Author: Emmett Salter DMD Service: ? Author Type: Dentist Type: Progress Notes Filed: 11/09/2022 8:03 PM Note Text: I have seen and evaluated the patient and discussed the case with the resident physician. I agree with the assessment and plan as documented in the resident?s note. Emmett Salter, RADHA [facility] 11-09-2022 Note HNO ID: [id number] Author: David Dent DDS Service: ? Author Type: Resident Type: Progress Notes Filed: 11/09/2022 7:36 AM Note Text: Summary: Complete Oral Evaluation Dental Comprehensive Examination HISTORY OF PRESENT ILLNESS: 27 year old female patient presents for initial exam. Pain status: Yes, patient reports pain on all of her dentition. Patient reports to the dental clinic after seeing multiple dentists before that have, patient stated, "messed up her teeth." She reports that her entire dentition is in pain. Patient states that she wants implants or full mouth crowns; however she understands that her insurance will not pay for crowns unless it is an anterior tooth and is root canal treated. Patient also reports having severe TMD, to which surgery is her only left option at this point. Patient reports wearing a "day appliance" for the mandible which helps with her TMD. Patient denies any dry mouth. Patient states that her last dentist had full mouth maxillary crowns planned to which they had a wax up/try-in and was planned for mandibular RPD. Patient interested in sedation dentistry as she reports difficulty getting anesthetized due to an "epinephrine allergy." Patient reports a burning sensation on her tongue and discomfort generalized throughout her gingiva. Patient reports to dental hearing and speech assistant that she does not want to be seen by residents and wants the most qualified person working on her. Patient informed that only residents work at this clinic. Clinical Examination: Extraoral Findings: Swelling: no Lymphadenopathy: no Asymmetry: no TMJ: Clinically sound but painful to palpation. Opening >35 mm. All MOM painful to palpation. Intraoral Soft Tissues: Tongue: Slightly atrophic dorsal papillae. Buccal mucosa: WNL Pharynx: WNL Palate: WNL Floor of mouth: WNL Severely frothy gingiva and xerostomia. No signs of yang. Mild gingival erythema/inflammation. Dentition: Caries or defective congregational: #14 D caries; defective restorations: #4 D, #10 MDL, #11 MDL Pain to percussion: All maxillary/mandibular teeth painful to percussion Mobility: None Diastemata present in the maxillary anterior. 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 Clinical Exam: Polypharmacy-induced xerostomia; unstable occlusion/occlusal pathology; Muscle myalgia of all MOM; generalized good previous dental restorations with few defective restorations; all teeth are sensitive to touch (even endodontically treated teeth when touching enamel); dental anxiety. Patient interested in full mouth rehabilitation. Intraoral photos uploaded. TREATMENT: No treatment rendered. PLAN: It is unknown if the patient is able to be treated in this outpaitent setting, and is unlikely given the previous hx given by the patient. We will attempt to clean and see how the patient takes the cleaning. Patient will most likely be referred to prosthodontics specialty given the history and additional care needed in regards to occlusal rehabilitation and TMD. Patient encouraged to use Oral Balance Gel for xerostomia. Patient does not think she has dry mouth, clinical evaluation says otherwise. I have discussed the risks, benefits, complications, and alternatives of proceeding with treatment at this time. I have also discussed other options with Maria T Edward Wynne. She understands the above issues and is agreeable to proceeding as planned. Next DDS visit: Prophy and determine treatment or refer. Assisted by: Ella Supervised by: Dr. Salter, Dr. Pranav Dent, S [facility] 11-09-2022 History of Present illness Narrative Summary: Complete Oral Evaluation Images from the original note were not included. Dental Comprehensive Examination HISTORY OF PRESENT ILLNESS: 27 year old female patient presents for initial exam. Pain status: Yes, patient reports pain on all of her dentition. Patient reports to the dental clinic after seeing multiple dentists before that have, patient stated, "messed up her teeth." She reports that her entire dentition is in pain. Patient states that she wants implants or full mouth crowns; however she understands that her insurance will not pay for crowns unless it is an anterior tooth and is root canal treated. Patient also reports having severe TMD, to which surgery is her only left option at this point. Patient reports wearing a "day appliance" for the mandible which helps with her TMD. Patient denies any dry mouth. Patient states that her last dentist had full mouth maxillary crowns planned to which they had a wax up/try-in and was planned for mandibular RPD. Patient interested in sedation dentistry as she reports difficulty getting anesthetized due to an "epinephrine allergy." Patient reports a burning sensation on her tongue and discomfort generalized throughout her gingiva. Patient reports to dental hearing and speech assistant that she does not want to be seen by residents and wants the most qualified person working on her. Patient informed that only residents work at this clinic. Clinical Examination: Extraoral Findings: Swelling: no Lymphadenopathy: no Asymmetry: no TMJ: Clinically sound but painful to palpation. Opening >35 mm. All MOM painful to palpation. Intraoral Soft Tissues: Tongue: Slightly atrophic dorsal papillae. Buccal mucosa: WNL Pharynx: WNL Palate: WNL Floor of mouth: WNL Severely frothy gingiva and xerostomia. No signs of yang. Mild gingival erythema/inflammation. Dentition: Caries or defective congregational: #14 D caries; defective restorations: #4 D, #10 MDL, #11 MDL Pain to percussion: All maxillary/mandibular teeth painful to percussion Mobility: None Diastemata present in the maxillary anterior. 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 Clinical Exam: Polypharmacy-induced xerostomia; unstable occlusion/occlusal pathology; Muscle myalgia of all MOM; generalized good previous dental restorations with few defective restorations; all teeth are sensitive to touch (even endodontically treated teeth when touching enamel); dental anxiety. Patient interested in full mouth rehabilitation. Intraoral photos uploaded. TREATMENT: No treatment rendered. PLAN: It is unknown if the patient is able to be treated in this outpaitent setting, and is unlikely given the previous hx given by the patient. We will attempt to clean and see how the patient takes the cleaning. Patient will most likely be referred to prosthodontics specialty given the history and additional care needed in regards to occlusal rehabilitation and TMD. Patient encouraged to use Oral Balance Gel for xerostomia. Patient does not think she has dry mouth, clinical evaluation says otherwise. I have discussed the risks, benefits, complications, and alternatives of proceeding with treatment at this time. I have also discussed other options with Maria T Wynne. She understands the above issues and is agreeable to proceeding as planned. Next DDS visit: Prophy and determine treatment or refer. Assisted by: Ella Supervised by: Dr. Pranav Banks DDS documented in this encounter [facility] 11-07-2022 Nurse Note Summary: post dandy mine 1330 Ketamine complete. Discharged via wheelchair to Mom in private vehicle. Louise Mata RN Summary: pre ketamine 1100 Patient here for ketamine infusion. Reports pain 7/10 today. States she had 0% improvement after last infusion, 09/26. She has been NPO x [address] Mom will drive patient home post infusion. Louise Mata RN documented in this encounter [facility] 11-07-2022 Note HNO ID: [id number] Author: Bebe Mckenna MD Service: ? Author Type: Anesthesiologist Type: Progress Notes Filed: 12/13/2022 10:38 AM Note Text: PROCEDURE: Ketamine infusion Therapy DATE OF SERVICE: November 07, 2022 PREPROCEDURE DIAGNOSES: Neuropathic pain, chronic pain syndrome NO APPARENT CONTRAINDICATIONS TO IV KETAMINE ANESTHESIA: IV ketamine, Versed COMPLICATIONS: None CONSENT: The risks and benefits of ketamine infusion therapy were discussed with the patient. The patient verbalizes understanding and wishes to proceed with the infusion therapy at this time for control of intractable pain. Informed consent was thereby obtained. DESCRIPTION OF PROCEDURE: After written informed consent was obtained as above, the patient was taken to the operating room. Standard ASA monitors were applied. O2 was also applied. The patient received 3 mg of IV Versed by the prior to initiation of the ketamine infusion. The initial verbal analogue scale at the beginning of the infusion was 10 on a scale from 0 to 10. The patient's pain scale was monitored for the next 15-minute increments. The ketamine infusion was initiated at a dose of 1.5 mg/kg (total 135 mg) was infused over 30 minutes. The patient was monitored closely during the entire infusion. The patient's vital signs remained stable throughout the postoperative period. They were given written instructions to follow up at [facility] in the next 4 to 6 weeks for further plan of care and overall evaluation. COMMENTS: Repeat in 4 weeks [facility] 11-07-2022 History of Present illness Narrative PROCEDURE: Ketamine infusion Therapy DATE OF SERVICE: November 07, 2022 PREPROCEDURE DIAGNOSES: Neuropathic pain, chronic pain syndrome NO APPARENT CONTRAINDICATIONS TO IV KETAMINE ANESTHESIA: IV ketamine, Versed COMPLICATIONS: None CONSENT: The risks and benefits of ketamine infusion therapy were discussed with the patient. The patient verbalizes understanding and wishes to proceed with the infusion therapy at this time for control of intractable pain. Informed consent was thereby obtained. DESCRIPTION OF PROCEDURE: After written informed consent was obtained as above, the patient was taken to the operating room. Standard ASA monitors were applied. O2 was also applied. The patient received 3 mg of IV Versed by the prior to initiation of the ketamine infusion. The initial verbal analogue scale at the beginning of the infusion was 10 on a scale from 0 to 10. The patient's pain scale was monitored for the next 15-minute increments. The ketamine infusion was initiated at a dose of 1.5 mg/kg (total 135 mg) was infused over 30 minutes. The patient was monitored closely during the entire infusion. The patient's vital signs remained stable throughout the postoperative period. They were given written instructions to follow up at [facility] in the next 4 to 6 weeks for further plan of care and overall evaluation. COMMENTS: Repeat in 4 weeks documented in this encounter [facility] 11-01-2022 Nurse Note Summary: ketamine Several unsuccessful attempts to gain IV access by four nurses today, including RN from IV team. Patient expressed frustration with staff's inability to gain access. Herminia from IV team recommends bringing ultrasound machine with patient's next planned infusion. Dr Mckenna aware. Louise Mata RN documented in this encounter [facility] 10-24-2022 Miscellaneous Notes Done. I spoke to Antonia and she cancelled pts infusion today. Pt mentioned that she would like to have an increase with the next infusion on 11/21/22. Therapy plan attached. Kristi Altamirano RN October 24, 2022 1:19 PM documented in this encounter [facility] 10-05-2022 History of Present illness Narrative [facility] Psychological Evaluation October 05, 2022 Maria T Wynne [facility]#: [id number] I have communicated my name and active licensure. The patient's identity and physical location were verified at the time of this visit. Either the patient or their legal community health representative has been informed of the risks and benefits of -- and alternatives to -- treatment through virtual visit and consents to proceed with the session remotely. The patient e-signed the Informed Consent for Psychological Evaluation & Care Form, and the [facility] insurance benefits, fees for service, emergency procedures, and the limits of confidentiality that may pertain with any given case were discussed with the patient. The patient was given a copy of the consent form on [employer]. The patient consented to a virtual visit and their location was confirmed. Patient location: [place], [place] This 27 year old single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 occur while falling asleep, sleeping or waking from sleep. They may involve abnormal movements, behaviors, emotions, perceptions and dreams. They commonlyproduce physical injuries, adverse health effects, psychological disturbances and disrupted sleep. Behaviors related to parasomnias are disconnected from conscious awareness and are devoid of sound judgment. There is no conscious, deliberate control of these actions. Parasomnias can emerge in close association with other sleep disorders such as obstructive sleep apnea and periodic limb movements. Counseled in regards to falls prevention and sleep related injuries. BEFORE GETTING INTO BED: -Establish a regular routine for bedtime. -Create a positive sleep environment. -Relax before getting into bed. -Avoid alcohol, smoking, caffeine for at least a few hours before bedtime. -Do not go to bed unless you are sleepy. WHILE IN BED: -Turn your clock around (or cover it) and use your alarm if needed. - If you can't fall asleep in 20 minutes (based on your internal sense of time), get out of bed and do something relaxing or boring (reading, listening to music, etc). Return to bed only when sleepy. -Use your bed only for sleep. N THE MORNING AND DURING THE DAYTIME: -Wake up at the same time every morning, even on weekends. -Avoid naps during the day. -Avoid caffeinated beverages and food in the evening. -Exercise regularly but not within 4 hours of bedtime. - Avoid driving when drowsy. Recommend that if you are dozing off while driving, that you do not drive until your sleepiness is appropriately treated. -Encouraged healthy lifestyle with adequate sleep ( 7-9 hours per night), diet and exercise. Follow up visit in 2 months. Please schedule this appointment now to ensure your preferred time and location. [facility] on 09/27/22 POLYSOMNOGRAM (PSG) FERRITIN BLD IRON + TIBC TRANSFERRIN BLD CONSULT TO SLEEP MEDICINE - ADULT CONSULT TO GO! TO SLEEP CONSULT TO BEHAVIORAL SLEEP MEDICINE INDIVIDUAL TREATMENT Susana Miller MD I spent a total of 54 minutes on the date of the service which included preparing to see the patient, [id number] patient care, performing a medically appropriate examination, counseling and educating the patient/family/caregiver and ordering medications/devices. documented in this encounter [facility] 09-26-2022 Note HNO ID: [id number] Author: Bebe Mckenna MD Service: ? Author Type: Anesthesiologist Type: Progress Notes Filed: 09/27/2022 9:38 AM Note Text: PROCEDURE: Ketamine infusion Therapy DATE OF SERVICE: September 26, 2022 PREPROCEDURE DIAGNOSES: Neuropathic pain, chronic pain syndrome NO APPARENT CONTRAINDICATIONS TO IV KETAMINE ANESTHESIA: IV ketamine, Versed COMPLICATIONS: None CONSENT: The risks and benefits of ketamine infusion therapy were discussed with the patient. The patient verbalizes understanding and wishes to proceed with the infusion therapy at this time for control of intractable pain. Informed consent was thereby obtained. DESCRIPTION OF PROCEDURE: After written informed consent was obtained as above, the patient was taken to the operating room. Standard ASA monitors were applied. O2 was also applied. The patient received 3 mg of IV Versed by the prior to initiation of the ketamine infusion. The initial verbal analogue scale at the beginning of the infusion was 8 on a scale from 0 to 10. The patient's pain scale was monitored for the next 15-minute increments. The ketamine infusion was initiated at a dose of 1.25 mg/kg (total 110 mg) was infused over 30 minutes. The patient was monitored closely during the entire infusion. The patient's vital signs remained stable throughout the postoperative period. They were given written instructions to follow up at [facility] in the next 4 to 6 weeks for further plan of care and overall evaluation. COMMENTS: Repeat in 4 weeks [facility] 09-26-2022 Telephone encounter Note I think this patient would be better off with a specialist due to the ketamine use [facility] Phone: 09-26-2022 Nurse Note Summary: post [facility] infusion Ketamine infusion complete. Discharged via wheelchair to private vehicle. Summary: preinfusion update/assessment 1415 Pt states that she has been NPO x8 hrs and that her boyfriend, Yahir, will be available upon discharge to be her chair car driver. Pt states that she had minimal, if any improvement with last infusion and had no side effects. Pt acknowledges today's dosage increase. Katalina Tripp RN documented in this encounter [facility] 09-26-2022 History of Present illness Narrative PROCEDURE: Ketamine infusion Therapy DATE OF SERVICE: September 26, 2022 PREPROCEDURE DIAGNOSES: Neuropathic pain, chronic pain syndrome NO APPARENT CONTRAINDICATIONS TO IV KETAMINE ANESTHESIA: IV ketamine, Versed COMPLICATIONS: None CONSENT: The risks and benefits of ketamine infusion therapy were discussed with the patient. The patient verbalizes understanding and wishes to proceed with the infusion therapy at this time for control of intractable pain. Informed consent was thereby obtained. DESCRIPTION OF PROCEDURE: After written informed consent was obtained as above, the patient was taken to the operating room. Standard ASA monitors were applied. O2 was also applied. The patient received 3 mg of IV Versed by the prior to initiation of the ketamine infusion. The initial verbal analogue scale at the beginning of the infusion was 8 on a scale from 0 to 10. The patient's pain scale was monitored for the next 15-minute increments. The ketamine infusion was initiated at a dose of 1.25 mg/kg (total 110 mg) was infused over 30 minutes. The patient was monitored closely during the entire infusion. The patient's vital signs remained stable throughout the postoperative period. They were given written instructions to follow up at [facility] in the next 4 to 6 weeks for further plan of care and overall evaluation. COMMENTS: Repeat in 4 weeks documented in this encounter [facility] 09-26-2022 History of Present illness Narrative DATE OF SERVICE: 09/26/2022 PATIENT NAME: Maria T Wynne : 1995 AGE: 27 y.o. CLINIC NUMBER: [id number] 1:22 PM Chief Complaint Patient presents with Acne Verbal consent was received from the patient/parent to do telemedicine/virtual visit. Subjective Maria T Wynne is a 27 y.o. who presents on the telephone for a remote visit (as recommended by the [facility] COVID-19 pandemic guidelines). F/u-acne located on the face; Unchanged since last visit. Patient was previously prescribed tretinoin 0.025% cream. Patient states she has not been using this cream as it does not work. She states she is not using any OTC or prescription medications as nothing seems to help. Patient states she washes her face with her femine wash and that is is. Admits new breakouts, almost daily. Admits pimples, deep painful cysts, blackheads, whiteheads, dark spots and scarring. Patient is on oral control. F/u- Atopic dermatitis; Unchanged since last visit. Previously prescribed triamcinolone cream. Patient states she has not been using this either as she states this does not help her skin. Expresses severe itching. Patient is concerned at this point that she does not really have eczema as she states she has multiple different rashes on her body. She states she is constantly itchy and feels she has bugs crawling all over her. Takes Claritin PRN and hydroxyzine at bedtime. Has complaints of sweating and bumps in groin and genital area. Has had bumps on labia taken off by authors motivational now has areas of raw skin. Wants a second opinion. Are you , trying to become or ? No Allergies Allergen Reactions Lubiprostone Rash Penicillins Hives and Rash Other reaction(s): Other (See Comments), Unknown Patient states "she gets everything" Ciprofloxacin Hcl Other reaction(s): GI Upset Clindamycin Other reaction(s): Intolerance Her whole body felt hot and she had abdominal pain Doxycycline GI intolerance and Nausea And Vomiting Other reaction(s): GI Upset, Unknown Metronidazole GI intolerance and Nausea And Vomiting Other reaction(s): GI Upset Nausea. Able to tolerate with anti-emetics Nausea Naproxen Other reaction(s): GI Upset Headache/GI upset Other Sulfa Antibiotics Other reaction(s): Other: See Comments It is like the flu x 10 Sulfamethoxazole-Trimethoprim Nausea And Vomiting Other reaction(s): Other: See Comments Tramadol Other reaction(s): Other: See Comments Headache seizure Nickel Rash Past medical history reviewed and updated as appropriate, Allergies reviewed and updated as appropriate, Medication list reviewed and updated as appropriate, and Problem list reviewed and updated as appropriate Patient requests medication refills, see below for orders. Current Outpatient Medications Medication Sig Dispense Refill acyclovir (Zovirax) 400 MG tablet (Prior Auth#:[id number]) acyclovir (Zovirax) 400 MG tablet Take 400 mg by mouth in the morning. albuterol 108 (90 Base) MCG/ACT inhaler albuterol sulfate HFA 90 mcg/actuation aerosol inhaler baclofen (Lioresal) 10 MG tablet every 12 hours. chlorhexidine (Peridex) 0.12 % solution chlorhexidine gluconate 0.12 % mouthwash cholecalciferol (Vitamin D-3) 50 MCG (2000 UT) capsule Vitamin D3 50 mcg (2,000 unit) capsule clobetasol (Temovate) 0.05 % external solution Apply to affected areas on scalp BID x 6 weeks Stop using when clear. Repeat as needed for flares. Do not use on face, armpits, groin. 50 mL 11 cloNIDine (Catapres) 0.1 MG tablet clonidine HCl 0.1 mg tablet ezetimibe (Zetia) 10 MG tablet Take 10 mg by mouth in the morning. gabapentin (Neurontin) 600 MG tablet hydrOXYzine HCl (Atarax) 50 MG tablet hydroxyzine HCl 50 mg tablet ibuprofen 600 MG tablet ibuprofen 600 mg tablet ISOtretinoin (Accutane) 40 MG capsule Take 1 capsule BID [facility]#[id number] (Patient not taking: Reported on 07/15/2022) 60 capsule 0 lactulose (Chronulac) 10 GM/15ML solution Constulose 10 gram/15 mL oral solution lubiprostone (Amitiza) 24 MCG capsule Amitiza 24 mcg capsule methocarbamol (Robaxin) 750 MG tablet Take 750 mg by mouth in the morning and 750 mg at noon and 750 mg in the evening and 750 mg before bedtime. montelukast (Singulair) 10 MG tablet TAKE 1 TABLET BY MOUTH EVERY DAY FOR 30 DAYS naloxone (Narcan) 4 mg/0.1 mL nasal spray Narcan 4 mg/actuation nasal spray nicotine (Nicoderm, Step 1) 21 MG/24HR patch nicotine 21 mg/24 hr daily transdermal patch norethindrone-ethinyl estradiol (04/01) 1-20 MG-MCG tablet (Prior Auth#:[id number]) omeprazole (PriLOSEC) [address] capsule omeprazole 20 mg capsule,delayed release pantoprazole (ProtoNix) 40 MG EC tablet pantoprazole 40 mg tablet,delayed release polyethylene glycol, PEG, 3350 (Glycolax) 17 GM/SCOOP powder polyethylene glycol 3350 17 gram/dose oral powder pregabalin (Lyrica) 100 MG capsule every 8 hours. tacrolimus (Protopic) 0.1 % ointment Apply to affected areas of eczema twice daily. (Patient not taking: Reported on 07/15/2022) 60 g 3 tamsulosin (Flomax) 0.4 MG 24 hr capsule tamsulosin 0.4 mg capsule tretinoin (Retin-A) 0.025 % cream Apply a thin layer to affected areas every third night, increase to nightly as tolerated. (Patient not taking: Reported on 07/15/2022) 45 g 0 triamcinolone (Kenalog) 0.1 % cream Apply to affected areas BID x 2 weeks Stop using when clear. Repeat as needed for flares. Do not use on face, armpits, groin. (Patient not taking: Reported on 07/15/2022) 80 g 3 triamcinolone (Kenalog) 0.1 % cream Apply to affected areas BID x 2 weeks Stop using when clear. Repeat as needed for flares. Do not use on face, armpits (Patient not taking: Reported on 07/15/2022) 454.6 g 2 No current facility-administered medications for this visit. Patient submitted photos were reviewed by medical provider. Established Patient 30-39 minutes were spent on digital evaluation and management of this patient 1. Acne vulgaris Head - Anterior (Face) Scattered acneiform papules, open and closed comedones with mild scarring and PIH. [x]Chronic []Acute []Stable [x]Flaring/Exacerbation Oral isotretinoin (Accutane) is discussed fully with the patient/ patient's parent. It is a very effective drug to treat acne vulgaris but has many potential side effects. Risks and benefits reviewed with patient/ patient's parent. Significant potential side effects include teratogenesis, hepatic injury, dyslipidemia and severe drying of the mucous membranes. All of these have been discussed in detail. Lab tests to monitor lipids and liver functions will be ordered periodically throughout treatment and monthly tests for females are required. Expect dryness and/or fissuring around the lips, eyes, and other moist areas of the body. Balms may be protective. Contact lens may be too painful to wear temporarily while on this drug. Episodes of significant depression have been reported, including suicidal ideation and attempts in rare cases. It may also cause pseudotumor cerebri and hyperostosis. The patient will report any such changes in mood, depressive symptoms or suicidal thoughts, headaches, joint or bone pains or any other symptom. No personal or family h/o depression/ suicide attempts No personal or family h/o Inflammatory bowel disease (Crohn's disease or ulcerative colitis) Patient is not , trying to become or nursing. Patient was extensively educated that Isotretinoin is a known teratogen and will cause defects if patient becomes while taking the medication. Patient is aware that she cannot try to become for at least one month after she stops taking the medication. Two forms of contraceptive methods are reviewed. Additional patient counseling: reviewed importance of compliance, lab testing reviewed/ required, no vitamin or herbal supplements, limit alcohol use, limit/ avoid tylenol use, do not donate blood, do not share medication, no cosmetic procedures or waxing, and reminded of sun sensitivity. Patient would like to start Iso. Was previously delayed due to patient preference. Need negative HCG today and again in 30 days. Related Procedures hCG, urine, qualitative Related Medications tretinoin (Retin-A) 0.025 % cream Apply a thin layer to affected areas every third night, increase to nightly as tolerated. ISOtretinoin (Accutane) 40 MG capsule Take 1 capsule BID [facility]#[id number] 2. Pruritus [x]Chronic []Acute []Stable [x]Flaring/Exacerbation Educated and reassured. Treatment options, risks, benefits, and expectations reviewed. Discussed her pruritis can be caused by a variety of reasons such as a side effects of medications, nerve related, allergies, eczema, etc. Recommended in office visit for further evaluation. Recommend taking daily allergy medication such as Claritin. Also, continue hydroxyzine. 3. Skin lesion Pubic Recommend in office evaluation. 4. Encounter for long-term (current) use of high-risk medication Related Procedures hCG, urine, qualitative Patient was seen today via Telehealth by agreement and consent. I used the following Telehealth technology: Audio and video capabilities. Patient location: Patient Location: Home. This patient encounter is appropriate and reasonable under the circumstances: transportation issues . The patient has been advised of the potential risks and limitations of this mode of treatment (including but not limited to the absence of in-person examination) and has agreed to be treated in a remote fashion in spite of them. Any and all of the patient's/patient's family's questions on this issue have been answered and I have made no promises or guarantees to the patient. The patient has also been advised to contact this office for worsening conditions or problems, and seek emergency medical treatment and/or call 911 if the patient deems either necessary. The patient stated that they are currently in the state [facility]. If the patient is a minor, permission has been obtained by the parent or guardian for the patient to receive medical care at this visit. FOLLOW UP: No follow-ups on file. ALVIN Santiago 09/26/2022 1:22 PM documented in this encounter [facility] 09-23-2022 Miscellaneous Notes Done. Lidocaine therapy plan needs to be discontinued and Ketamine therapy plan needs updated. Neeru Jacques, ANA documented in this encounter [facility] 09-22-2022 Miscellaneous Notes Spoke with patient regarding orders for KUB. She Is aware and will get kub Sugar Vora RN Addended by: LEAH AL on: 09/22/2022 03:50 PM Modules accepted: Orders Kub ordered Patient calling the office She said she did a clean out... Mineral oil 1 tablespoon three times a day and she did drink the Miralax Gatorade solution. 64 oz Gatorade and 238 grams of Miralax Patient stools are watery and brown. She still feels constipated. She is passing gas and feels a little bloated. She is asking if she can have imaging done to see if she is cleaned out before starting the Trulance. l Ieft a message to remind patient of appointment date and to let them know the nurse will call the day before to confirm appointment time. documented in this encounter [facility] 09-20-2022 Telephone encounter Note Form in your basket. [facility] 09-20-2022 Miscellaneous Notes Form in your basket. Go over our form with her- it may be better for her to go to pain management and request buprenorphine patches through tem but she doesn't have to -earliest appt would be mid october S: Patient called the clinical access center with request to see Dr Elias. B:pt would like to be seen to start on low dose Suboxone A:Pt has a history of chronic pain, fibromyalgia. She last took Suboxone 2 years ago. She would like to restart taking a lower dose Suboxone. Her friend recommended Dr Elias. Pt said she doesn't want to be tempted to start taking drugs due to pain. She said "I have not used drugs in 1.5 years". R:I called the office back lines but there was no answer. I sent this information to the office per protocol. I advised the patient the office will reach out to her. [facility] # [phone]. Pt has [employer] insurance. Reason for Disposition Nursing judgment Protocols used: Information Only Call - No [id number] documented in this encounter [facility] 09-20-2022 Telephone encounter Note Go over our form with her- it may be better for her to go to pain management and request buprenorphine patches through tem but she doesn't have to -earliest appt would be mid october [facility] [employer] Work Phone: 09-20-2022 Telephone encounter Note S: Patient called the clinical access center with request to see Dr Elias. B:pt would like to be seen to start on low dose Suboxone A:Pt has a history of chronic pain, fibromyalgia. She last took Suboxone 2 years ago. She would like to restart taking a lower dose Suboxone. Her friend recommended Dr Elias. Pt said she doesn't want to be tempted to start taking drugs due to pain. She said "I have not used drugs in 1.5 years". R:I called the office back lines but there was no answer. I sent this information to the office per protocol. I advised the patient the office will reach out to her. Patients [facility] # [phone]. Pt has [employer] insurance. Reason for Disposition Nursing judgment Protocols used: Information Only Call - No [id number] [facility] 09-16-2022 Miscellaneous Notes Blood test order in epic documented in this encounter [facility] 09-12-2022 History of Present illness Narrative documented in this encounter [facility] 09-07-2022 Note HNO ID: [id number] Author: Bebe Mckenna MD Service: ? Author Type: Anesthesiologist Type: Progress Notes Filed: 09/07/2022 3:13 PM Note Text: Bellaarchana was used to dictate this note and therefore there may be some typographical errors. I attest to the fact that I spent a total of 12 min with the patient to include: Face to face time and non face to face time such as: Reviewing test's, reviewing medical records, reviewing imaging studies, ordering tests, etc. The patient was last seen on 08/29/2022 for ketamine infusion. At that time we did increase the dosage per patient request. We increased to 1 mg/kg or 85 mg total. She also received 3 mg of Versed. Prior to the infusion, the patient indicated to me that she was still having problems sleeping. She apparently is on a sleep aid by her primary care physician that being Vistaril. I explained the patient that typically sleep aids are provided by the primary care physician's office for sometimes psychiatrist continued patient is anxiety issues which will promote sleep. I did offer her Elavil, trazodone, or even muscle relaxants for sleep. She declined these. She returns today for follow-up visit. Virtual visit per patient request. Dx: Chronic pain syndrome, fibromyalgia, diffuse myalgias, history of substance abuse", tobacco use, shortness of breath, history hepatitis C, anxiety disorder, lower back pain, insomnia. Plan: As above, the atient was last seen on 08/29/2022 for ketamine infusion. At that time we did increase the dosage per patient request. We increased to 1 mg/kg or 85 mg total. She also received 3 mg of Versed. Prior to the infusion, the patient indicated to me that she was still having problems sleeping. She apparently is on a sleep aid by her primary care physician that being Vistaril. I explained the patient that typically sleep aids are provided by the primary care physician's office for sometimes psychiatrist continued patient is anxiety issues which will promote sleep. I did offer her Elavil, trazodone, or even muscle relaxants for sleep. She declined these. As I mentioned in my note from 03/03/2022, this is a complex case from pain management standpoint. Patient previously was in pain management with Dr. Quinones and also in [place] with Dr. Milton. She had cervical injections in [place] pain management without any benefit. She had shoulder injections without benefit. Referral note from 04/07/2021 indicates "history of drug use", note from 06/22/2021 and note from 09/14/2021 indicates "patient has history of substance abuse". With TMJ MD, he has tried TPIs, Botox, all ineffective. On Robaxin and Lyrica from other physician. The patient was seen at neurologic pain [place] at the [facility] in [place] by Dr. Acuna. He did recommend the followin. Nutritional consult with dietitian. Patient was amenable and consult was placed. 2. Evaluation with sleep medicine. Patient was amenable and consult was placed. 3. IV ketamine infusion protocol which apparently is once every day x5 days in a row. Patient was amenable and consult was placed. 4. Pain psychology consult evaluation and treat meant. Patient was amenable and consult was placed. Patient is awaiting the start of their comprehensive multidisciplinary program. In the interim, she would like to continue with IV ketamine infusions from our office until she gets into the comprehensive multidisciplinary program up in [facility]. She is scheduled for next IV ketamine infusion to be done 09/26/2022. We will increase the dose slightly to 1.25 mg/kg. Patient would like to increase dose as she states that the side effects from her last ketamine fusion were no worse than normal and she would like increased dosage. She voiced understanding and agrees the above treatment plan. [facility] 08-29-2022 Note HNO ID: [id number] Author: Milka Riggins RN Service: ? Author Type: Registered Nurse Type: Progress Notes Filed: 08/29/2022 4:11 PM Note Text: Summary: Ketamine infusion discharge Pt discharged to home via private vehicle with her boyfriend. Milka Riggins RN [facility] 08-29-2022 Note HNO ID: [id number] Author: Louise Mata RN Service: ? Author Type: Registered Nurse Type: Progress Notes Filed: 08/29/2022 3:38 PM Note Text: Summary: Ketamine infusion assessment Patient presents for repeat ketamine infusion. She reports no benefit after recent infusion 08/01/22. She is agreeable to increased dosage. Pt acknowledges NPO for minimum 6 hours and states that her boyfriend will be available to roller picker at time of discharge. Louise Mata RN [facility] 08-29-2022 History of Present illness Narrative Summary: Ketamine infusion discharge Pt discharged to home via private vehicle with her boyfriend. Milka Riggins RN Summary: Ketamine infusion assessment Patient presents for repeat ketamine infusion. She reports no benefit after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03-28-2019 History of Past illness Narrative* Problem Noted Date Resolved Date Vitamin D deficiency 06/07/2018 03/15/2022 History of suicidal ideation 04/06/2017 Overview: 04/06/2017Pt has a history of Bipolar Disorder . She currently takes multiple medications to treat it. She sees a counselor at [facility], Nanci Kong and she also attends [facility]. She is advised to discuss her psychiatric medications she is taking with the psychiatrist at [facility] , since she will be seeing him this week. I told her that most medications were a Class C , except for Toprimate which is a Class D. Discussed increased risks of depression during and and importance of reporting the development or worsening of symptoms should they occur.Pt had suicidal thoughts in the past. She was hospitalized in 2006 and 2016 for overdose. She denies any suicidal thoughts since her last hospitalization 09/2016. TKRN Opioid abuse 08/13/2015 03/04/2021 Overview: 07/2018 Currently participating in suboxone clinic at [facility] Bipolar affective disorder 12/16/201403/04 Overview: Patient has refused returning to psych Anxiety 10/23/2014 03/04/2021 Last Assessment & Plan: Anxiety for the past Many Years, is on clonidine for it and it helps her. Takes it 3 times a day. 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03[facility] History of Past illness Narrative* Problem Noted Date Resolved Date Vitamin D deficiency 06/07/2018 03/15/2022 History of suicidal ideation 04/06/2017 Overview: 04/06/2017Pt has a history of Bipolar Disorder . She currently takes multiple medications to treat it. She sees a counselor at [facility], Nanci Kong and she also attends [facility]. She is advised to discuss her psychiatric medications she is taking with the psychiatrist at [facility] , since she will be seeing him this week. I told her that most medications were a Class C , except for Toprimate which is a Class D. Discussed increased risks of depression during and and importance of reporting the development or worsening of symptoms should they occur.Pt had suicidal thoughts in the past. She was hospitalized in 2006 and 2016 for overdose. She denies any suicidal thoughts since her last hospitalization 09/2016. TKRN Opioid abuse 08/13/2015 03/04/2021 Overview: 07/2018 Currently participating in suboxone clinic at [facility] Bipolar affective disorder 12/16/201403/04 Overview: Patient has refused returning to psych Anxiety 10/23/2014 03/04/2021 Last Assessment & Plan: Anxiety for the past Many Years, is on clonidine for it and it helps her. Takes it 3 times a day. 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 History of Past illness Narrative* Problem Noted Date Resolved Date Vitamin D deficiency 06/07/2018 03/15/2022 History of suicidal ideation 04/06/2017 Overview: 04/06/2017Pt has a history of Bipolar Disorder . She currently takes multiple medications to treat it. She sees a counselor at [facility], Nanci Kong and she also attends [facility]. She is advised to discuss her psychiatric medications she is taking with the psychiatrist at [facility] , since she will be seeing him this week. I told her that most medications were a Class C , except for Toprimate which is a Class D. Discussed increased risks of depression during and and importance of reporting the development or worsening of symptoms should they occur.Pt had suicidal thoughts in the past. She was hospitalized in 2006 and 2016 for overdose. She denies any suicidal thoughts since her last hospitalization 09/2016. TKRN Opioid abuse 08/13/2015 03/04/2021 Overview: 07/2018 Currently participating in suboxone clinic at [address] [place] [address] affective disorder 12/16/201403/04 Overview: Patient has refused returning to psych Anxiety 10/23/2014 03/04/2021 Last Assessment & Plan: Anxiety for the past Many Years, is on clonidine for it and it helps her. Takes it 3 times a day. 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03[facility] History of Past illness Narrative* Problem Noted Date Resolved Date Vitamin D deficiency 06/07/2018 03/15/2022 History of suicidal ideation 04/06/2017 Overview: 04/06/2017Pt has a history of Bipolar Disorder . She currently takes multiple medications to treat it. She sees a counselor at [facility], Nanci Kong and she also attends [facility]. She is advised to discuss her psychiatric medications she is taking with the psychiatrist at [facility] , since she will be seeing him this week. I told her that most medications were a Class C , except for Toprimate which is a Class D. Discussed increased risks of depression during and and importance of reporting the development or worsening of symptoms should they occur.Pt had suicidal thoughts in the past. She was hospitalized in 2006 and 2016 for overdose. She denies any suicidal thoughts since her last hospitalization 09/2016. TKRN Opioid abuse 08/13/2015 03/04/2021 Overview: 07/2018 Currently participating in suboxone clinic at [facility] Bipolar affective disorder 12/16/201403/04 Overview: Patient has refused returning to psych Anxiety 10/23/2014 03/04/2021 Last Assessment & Plan: Anxiety for the past Many Years, is on clonidine for it and it helps her. Takes it 3 times a day. 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03[facility] History of Past illness Narrative* Problem Noted Date Resolved Date Vitamin D deficiency 06/07/2018 03/15/2022 History of suicidal ideation 04/06/2017 Overview: 04/06/2017Pt has a history of Bipolar Disorder . She currently takes multiple medications to treat it. She sees a counselor at [facility], Nanci Kong and she also attends [facility]. She is advised to discuss her psychiatric medications she is taking with the psychiatrist at [facility] , since she will be seeing him this week. I told her that most medications were a Class C , except for Toprimate which is a Class D. Discussed increased risks of depression during and and importance of reporting the development or worsening of symptoms should they occur.Pt had suicidal thoughts in the past. She was hospitalized in 2006 and 2016 for overdose. She denies any suicidal thoughts since her last hospitalization 09/2016. TKRN Opioid abuse 08/13/2015 03/04/2021 Overview: 07/2018 Currently participating in suboxone clinic at [facility] Bipolar affective disorder 12/16/201403/04 Overview: Patient has refused returning to psych Anxiety 10/23/2014 03/04/2021 Last Assessment & Plan: Anxiety for the past Many Years, is on clonidine for it and it helps her. Takes it 3 times a day. 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03[facility] History of Past illness Narrative* Problem Noted Date Resolved Date Vitamin D deficiency 06/07/2018 03/15/2022 History of suicidal ideation 04/06/2017 Overview: 04/06/2017Pt has a history of Bipolar Disorder . She currently takes multiple medications to treat it. She sees a counselor at [facility], Nanci Kong and she also attends [facility]. She is advised to discuss her psychiatric medications she is taking with the psychiatrist at [facility] , since she will be seeing him this week. I told her that most medications were a Class C , except for Toprimate which is a Class D. Discussed increased risks of depression during and and importance of reporting the development or worsening of symptoms should they occur.Pt had suicidal thoughts in the past. She was hospitalized in 2006 and 2016 for overdose. She denies any suicidal thoughts since her last hospitalization 09/2016. TKRN Opioid abuse 08/13/2015 03/04/2021 Overview: 07/2018 Currently participating in suboxone clinic at [facility] Bipolar affective disorder 12/16/201403/04 Overview: Patient has refused returning to psych Anxiety 10/23/2014 03/04/2021 Last Assessment & Plan: Anxiety for the past Many Years, is on clonidine for it and it helps her. Takes it 3 times a day. 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 History of Past illness Narrative* Problem Noted Date Resolved Date Vitamin D deficiency 06/07/2018 03/15/2022 History of suicidal ideation 04/06/2017 Overview: 04/06/2017Pt has a history of Bipolar Disorder . She currently takes multiple medications to treat it. She sees a counselor at [facility], Nanci Kong and she also attends [facility]. She is advised to discuss her psychiatric medications she is taking with the psychiatrist at [facility] , since she will be seeing him this week. I told her that most medications were a Class C , except for Toprimate which is a Class D. Discussed increased risks of depression during and and importance of reporting the development or worsening of symptoms should they occur.Pt had suicidal thoughts in the past. She was hospitalized in 2006 and 2016 for overdose. She denies any suicidal thoughts since her last hospitalization 09/2016. TKRN Opioid abuse 08/13/2015 03/04/2021 Overview: 07/2018 Currently participating in suboxone clinic at [facility] Bipolar affective disorder 12/16/201403/04 Overview: Patient has refused returning to psych Anxiety 10/23/2014 03/04/2021 Last Assessment & Plan: Anxiety for the past Many Years, is on clonidine for it and it helps her. Takes it 3 times a day. 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 History of Past illness Narrative* Problem Noted Date Resolved Date Vitamin D deficiency 06/07/2018 03/15/2022 History of suicidal ideation 04/06/2017 Overview: 04/06/2017Pt has a history of Bipolar Disorder . She currently takes multiple medications to treat it. She sees a counselor at [facility], Nanci Kong and she also attends [facility]. She is advised to discuss her psychiatric medications she is taking with the psychiatrist at [facility] , since she will be seeing him this week. I told her that most medications were a Class C , except for Toprimate which is a Class D. Discussed increased risks of depression during and and importance of reporting the development or worsening of symptoms should they occur.Pt had suicidal thoughts in the past. She was hospitalized in 2006 and 2016 for overdose. She denies any suicidal thoughts since her last hospitalization 09/2016. TKRN Opioid abuse 08/13/2015 03/04/2021 Overview: 07/2018 Currently participating in suboxone clinic at [facility] Bipolar affective disorder 12/16/201403/04 Overview: Patient has refused returning to psych Anxiety 10/23/2014 03/04/2021 Last Assessment & Plan: Anxiety for the past Many Years, is on clonidine for it and it helps her. Takes it 3 times a day. 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 History of Past illness Narrative* Problem Noted Date Resolved Date Vitamin D deficiency 06/07/2018 03/15/2022 History of suicidal ideation 04/06/2017 Overview: 04/06/2017Pt has a history of Bipolar Disorder . She currently takes multiple medications to treat it. She sees a counselor at [facility], Nanci Kong and she also attends [facility]. She is advised to discuss her psychiatric medications she is taking with the psychiatrist at [facility] , since she will be seeing him this week. I told her that most medications were a Class C , except for Toprimate which is a Class D. Discussed increased risks of depression during and and importance of reporting the development or worsening of symptoms should they occur.Pt had suicidal thoughts in the past. She was hospitalized in 2006 and 2016 for overdose. She denies any suicidal thoughts since her last hospitalization 09/2016. TKRN Opioid abuse 08/13/2015 03/04/2021 Overview: 07/2018 Currently participating in suboxone clinic at [facility] Bipolar affective disorder 12/16/201403/04 Overview: Patient has refused returning to psych Anxiety 10/23/2014 03/04/2021 Last Assessment & Plan: Anxiety for the past Many Years, is on clonidine for it and it helps her. Takes it 3 times a day. 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 History of Past illness Narrative* Problem Noted Date Resolved Date Vitamin D deficiency 06/07/2018 03/15/2022 History of suicidal ideation 04/06/2017 Overview: 04/06/2017Pt has a history of Bipolar Disorder . She currently takes multiple medications to treat it. She sees a counselor at [facility], Nanci Kong and she also attends [facility]. She is advised to discuss her psychiatric medications she is taking with the psychiatrist at [facility] , since she will be seeing him this week. I told her that most medications were a Class C , except for Toprimate which is a Class D. Discussed increased risks of depression during and and importance of reporting the development or worsening of symptoms should they occur.Pt had suicidal thoughts in the past. She was hospitalized in 2006 and 2016 for overdose. She denies any suicidal thoughts since her last hospitalization 09/2016. TKRN Opioid abuse 08/13/2015 03/04/2021 Overview: 07/2018 Currently participating in suboxone clinic at [address] [place] [address] affective disorder 12/16/201403/04 Overview: Patient has refused returning to psych Anxiety 10/23/2014 03/04/2021 Last Assessment & Plan: Anxiety for the past Many Years, is on clonidine for it and it helps her. Takes it 3 times a day. 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 History of Past illness Narrative* Problem Noted Date Resolved Date Vitamin D deficiency 06/07/2018 03/15/2022 History of suicidal ideation 04/06/2017 Overview: 04/06/2017Pt has a history of Bipolar Disorder . She currently takes multiple medications to treat it. She sees a counselor at [facility], Nanci Kong and she also attends [facility]. She is advised to discuss her psychiatric medications she is taking with the psychiatrist at [facility] , since she will be seeing him this week. I told her that most medications were a Class C , except for Toprimate which is a Class D. Discussed increased risks of depression during and and importance of reporting the development or worsening of symptoms should they occur.Pt had suicidal thoughts in the past. She was hospitalized in 2006 and 2016 for overdose. She denies any suicidal thoughts since her last hospitalization 09/2016. TKRN Opioid abuse 08/13/2015 03/04/2021 Overview: 07/2018 Currently participating in suboxone clinic at [facility] Bipolar affective disorder 12/16/201403/04 Overview: Patient has refused returning to psych Anxiety 10/23/2014 03/04/2021 Last Assessment & Plan: Anxiety for the past Many Years, is on clonidine for it and it helps her. Takes it 3 times a day. 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03-28-2019 History of Past illness Narrative* Problem Noted Date Resolved Date Vitamin D deficiency 06/07/2018 03/15/2022 History of suicidal ideation 04/06/2017 Overview: 04/06/2017Pt has a history of Bipolar Disorder . She currently takes multiple medications to treat it. She sees a counselor at [facility], Nanci Kong and she also attends [facility]. She is advised to discuss her psychiatric medications she is taking with the psychiatrist at [facility] , since she will be seeing him this week. I told her that most medications were a Class C , except for Toprimate which is a Class D. Discussed increased risks of depression during and and importance of reporting the development or worsening of symptoms should they occur.Pt had suicidal thoughts in the past. She was hospitalized in 2006 and 2016 for overdose. She denies any suicidal thoughts since her last hospitalization 09/2016. TKRN Opioid abuse 08/13/2015 03/04/2021 Overview: 07/2018 Currently participating in suboxone clinic at [facility] Bipolar affective disorder 12/16/201403/04 Overview: Patient has refused returning to psych Anxiety 10/23/2014 03/04/2021 Last Assessment & Plan: Anxiety for the past Many Years, is on clonidine for it and it helps her. Takes it 3 times a day. 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03-[facility]-2019 History of Past illness Narrative* Problem Noted Date Resolved Date Vitamin D deficiency 06/07/2018 03/15/2022 History of suicidal ideation 04/06/2017 Overview: 04/06/2017Pt has a history of Bipolar Disorder . She currently takes multiple medications to treat it. She sees a counselor at [facility], Nanci Kong and she also attends [facility]. She is advised to discuss her psychiatric medications she is taking with the psychiatrist at [facility] , since she will be seeing him this week. I told her that most medications were a Class C , except for Toprimate which is a Class D. Discussed increased risks of depression during and and importance of reporting the development or worsening of symptoms should they occur.Pt had suicidal thoughts in the past. She was hospitalized in 2006 and 2016 for overdose. She denies any suicidal thoughts since her last hospitalization 09/2016. TKRN Opioid abuse 08/13/2015 03/04/2021 Overview: 07/2018 Currently participating in suboxone clinic at [facility] Bipolar affective disorder 12/16/201403/04 Overview: Patient has refused returning to psych Anxiety 10/23/2014 03/04/2021 Last Assessment & Plan: Anxiety for the past Many Years, is on clonidine for it and it helps her. Takes it 3 times a day. 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03-[facility] History of Past illness Narrative* Problem Noted Date Resolved Date Vitamin D deficiency 06/07/2018 03/15/2022 History of suicidal ideation 04/06/2017 Overview: 04/06/2017Pt has a history of Bipolar Disorder . She currently takes multiple medications to treat it. She sees a counselor at [facility], Nanci Kong and she also attends [facility]. She is advised to discuss her psychiatric medications she is taking with the psychiatrist at [facility] , since she will be seeing him this week. I told her that most medications were a Class C , except for Toprimate which is a Class D. Discussed increased risks of depression during and and importance of reporting the development or worsening of symptoms should they occur.Pt had suicidal thoughts in the past. She was hospitalized in 2006 and 2016 for overdose. She denies any suicidal thoughts since her last hospitalization 09/2016. TKRN Opioid abuse 08/13/2015 03/04/2021 Overview: 07/2018 Currently participating in suboxone clinic at [facility] Bipolar affective disorder 12/16/201403/04 Overview: Patient has refused returning to psych Anxiety 10/23/2014 03/04/2021 Last Assessment & Plan: Anxiety for the past Many Years, is on clonidine for it and it helps her. Takes it 3 times a day. 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 History of Past illness Narrative* Problem Noted Date Diagnosed Date Resolved Date Vitamin D deficiency 06/07/2018 023 History of suicidal ideation 04/06/2017 03/04/2021 Overview: 04/06/2017Pt has a history of Bipolar Disorder . She currently takes multiple medications to treat it. She sees a counselor at [facility], Nanci Kong and she also attends [facility]. She is advised to discuss her psychiatric medications she is taking with the psychiatrist at [facility] , since she will be seeing him this week. I told her that most medications were a Class C , except for Toprimate which is a Class D. Discussed increased risks of depression during and and importance of reporting the development or worsening of symptoms should they occur.Pt had suicidal thoughts in the past. She was hospitalized in 2006 and 2016 for overdose. She denies any suicidal thoughts since her last hospitalization 09/2016. TKRN Opioid abuse 08/13/2015 03/04/2021 Overview: 07/2018 Currently participating in suboxone clinic at [facility] Bipolar affective disorder 12/16/2014 1 05/05/2020 Overview: Patient has refused returning to psych Anxiety 10/23/2014 03/04/2021 Last Assessment & Plan: Anxiety for the past Many Years, is on clonidine for it and it helps her. Takes it 3 times a day. 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03[facility] History of Past illness Narrative* Problem Noted Date Diagnosed Date Resolved Date Vitamin D deficiency 06/07/2018 023 History of suicidal ideation 04/06/2017 03/04/2021 Overview: 04/06/2017Pt has a history of Bipolar Disorder . She currently takes multiple medications to treat it. She sees a counselor at [facility], Nanci Kong and she also attends [facility]. She is advised to discuss her psychiatric medications she is taking with the psychiatrist at [facility] , since she will be seeing him this week. I told her that most medications were a Class C , except for Toprimate which is a Class D. Discussed increased risks of depression during and and importance of reporting the development or worsening of symptoms should they occur.Pt had suicidal thoughts in the past. She was hospitalized in 2006 and 2016 for overdose. She denies any suicidal thoughts since her last hospitalization 09/2016. TKRN Opioid abuse 08/13/2015 03/04/2021 Overview: 07/2018 Currently participating in suboxone clinic at [facility] Bipolar affective disorder 12/16/2014 1 05/05/2020 Overview: Patient has refused returning to psych Anxiety 10/23/2014 03/04/2021 Last Assessment & Plan: Anxiety for the past Many Years, is on clonidine for it and it helps her. Takes it 3 times a day. 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03[facility] History of Past illness Narrative* Problem Noted Date Diagnosed Date Resolved Date Vitamin D deficiency 06/07/2018 023 History of suicidal ideation 04/06/2017 03/04/2021 Overview: 04/06/2017Pt has a history of Bipolar Disorder . She currently takes multiple medications to treat it. She sees a counselor at [facility], Nanci Kong and she also attends [facility]. She is advised to discuss her psychiatric medications she is taking with the psychiatrist at [facility] , since she will be seeing him this week. I told her that most medications were a Class C , except for Toprimate which is a Class D. Discussed increased risks of depression during and and importance of reporting the development or worsening of symptoms should they occur.Pt had suicidal thoughts in the past. She was hospitalized in 2006 and 2016 for overdose. She denies any suicidal thoughts since her last hospitalization 09/2016. TKRN Opioid abuse 08/13/2015 03/04/2021 Overview: 07/2018 Currently participating in suboxone clinic at [facility] Bipolar affective disorder 12/16/2014 1 05/05/2020 Overview: Patient has refused returning to psych Anxiety 10/23/2014 03/04/2021 Last Assessment & Plan: Anxiety for the past Many Years, is on clonidine for it and it helps her. Takes it 3 times a day. 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03[facility] History of Past illness Narrative* Problem Noted Date Diagnosed Date Resolved Date Vitamin D deficiency 06/07/2018 023 History of suicidal ideation 04/06/2017 03/04/2021 Overview: 04/06/2017Pt has a history of Bipolar Disorder . She currently takes multiple medications to treat it. She sees a counselor at [facility], Nanci Kong and she also attends [facility]. She is advised to discuss her psychiatric medications she is taking with the psychiatrist at [facility] , since she will be seeing him this week. I told her that most medications were a Class C , except for Toprimate which is a Class D. Discussed increased risks of depression during and and importance of reporting the development or worsening of symptoms should they occur.Pt had suicidal thoughts in the past. She was hospitalized in 2006 and 2016 for overdose. She denies any suicidal thoughts since her last hospitalization 09/2016. TKRN Opioid abuse 08/13/2015 03/04/2021 Overview: 07/2018 Currently participating in suboxone clinic at [facility] Bipolar affective disorder 12/16/2014 1 05/05/2020 Overview: Patient has refused returning to psych Anxiety 10/23/2014 03/04/2021 Last Assessment & Plan: Anxiety for the past Many Years, is on clonidine for it and it helps her. Takes it 3 times a day. 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 History of Past illness Narrative* Problem Noted Date Diagnosed Date Resolved Date Vitamin D deficiency 06/07/2018 023 History of suicidal ideation 04/06/2017 03/04/2021 Overview: 04/06/2017Pt has a history of Bipolar Disorder . She currently takes multiple medications to treat it. She sees a counselor at [facility], Nanci Kong and she also attends [facility]. She is advised to discuss her psychiatric medications she is taking with the psychiatrist at [facility] , since she will be seeing him this week. I told her that most medications were a Class C , except for Toprimate which is a Class D. Discussed increased risks of depression during and and importance of reporting the development or worsening of symptoms should they occur.Pt had suicidal thoughts in the past. She was hospitalized in 2006 and 2016 for overdose. She denies any suicidal thoughts since her last hospitalization 09/2016. TKRN Opioid abuse 08/13/2015 03/04/2021 Overview: 07/2018 Currently participating in suboxone clinic at [facility] Bipolar affective disorder 12/16/2014 1 05/05/2020 Overview: Patient has refused returning to psych Anxiety 10/23/2014 03/04/2021 Last Assessment & Plan: Anxiety for the past Many Years, is on clonidine for it and it helps her. Takes it 3 times a day. 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 History of Past illness Narrative* Problem Noted Date Diagnosed Date Resolved Date Vitamin D deficiency 06/07/2018 023 History of suicidal ideation 04/06/2017 03/04/2021 Overview: 04/06/2017Pt has a history of Bipolar Disorder . She currently takes multiple medications to treat it. She sees a counselor at [facility], Nanci Kong and she also attends [facility]. She is advised to discuss her psychiatric medications she is taking with the psychiatrist at [facility] , since she will be seeing him this week. I told her that most medications were a Class C , except for Toprimate which is a Class D. Discussed increased risks of depression during and and importance of reporting the development or worsening of symptoms should they occur.Pt had suicidal thoughts in the past. She was hospitalized in 2006 and 2016 for overdose. She denies any suicidal thoughts since her last hospitalization 09/2016. TKRN Opioid abuse 08/13/2015 03/04/2021 Overview: 07/2018 Currently participating in suboxone clinic at [facility] Bipolar affective disorder 12/16/2014 1 05/05/2020 Overview: Patient has refused returning to psych Anxiety 10/23/2014 03/04/2021 Last Assessment & Plan: Anxiety for the past Many Years, is on clonidine for it and it helps her. Takes it 3 times a day. 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 History of Past illness Narrative* Problem Noted Date Diagnosed Date Resolved Date Vitamin D deficiency 06/07/2018 023 History of suicidal ideation 04/06/2017 03/04/2021 Overview: 04/06/2017Pt has a history of Bipolar Disorder . She currently takes multiple medications to treat it. She sees a counselor at [facility], Nanci Kong and she also attends [facility]. She is advised to discuss her psychiatric medications she is taking with the psychiatrist at [facility] , since she will be seeing him this week. I told her that most medications were a Class C , except for Toprimate which is a Class D. Discussed increased risks of depression during and and importance of reporting the development or worsening of symptoms should they occur.Pt had suicidal thoughts in the past. She was hospitalized in 2006 and 2016 for overdose. She denies any suicidal thoughts since her last hospitalization 09/2016. TKRN Opioid abuse 08/13/2015 03/04/2021 Overview: 07/2018 Currently participating in suboxone clinic at [facility] Bipolar affective disorder 12/16/2014 1 05/05/2020 Overview: Patient has refused returning to psych Anxiety 10/23/2014 03/04/2021 Last Assessment & Plan: Anxiety for the past Many Years, is on clonidine for it and it helps her. Takes it 3 times a day. 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 History of Past illness Narrative* Problem Noted Date Diagnosed Date Resolved Date Vitamin D deficiency 06/07/2018 023 History of suicidal ideation 04/06/2017 03/04/2021 Overview: 04/06/2017Pt has a history of Bipolar Disorder . She currently takes multiple medications to treat it. She sees a counselor at [facility], Nanci Kong and she also attends [facility]. She is advised to discuss her psychiatric medications she is taking with the psychiatrist at [facility] , since she will be seeing him this week. I told her that most medications were a Class C , except for Toprimate which is a Class D. Discussed increased risks of depression during and and importance of reporting the development or worsening of symptoms should they occur.Pt had suicidal thoughts in the past. She was hospitalized in 2006 and 2016 for overdose. She denies any suicidal thoughts since her last hospitalization 09/2016. TKRN Opioid abuse 08/13/2015 03/04/2021 Overview: 07/2018 Currently participating in suboxone clinic at [address] [place] [address] [facility] 12/16/2014 1 05/05/2020 Overview: Patient has refused returning to psych Anxiety 10/23/2014 03/04/2021 Last Assessment & Plan: Anxiety for the past Many Years, is on clonidine for it and it helps her. Takes it 3 times a day. 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 History of Past illness Narrative* Problem Noted Date Diagnosed Date Resolved Date Vitamin D deficiency 06/07/2018 023 History of suicidal ideation 04/06/2017 03/04/2021 Overview: 04/06/2017Pt has a history of Bipolar Disorder . She currently takes multiple medications to treat it. She sees a counselor at [facility], Nanci Kong and she also attends [facility]. She is advised to discuss her psychiatric medications she is taking with the psychiatrist at [facility] , since she will be seeing him this week. I told her that most medications were a Class C , except for Toprimate which is a Class D. Discussed increased risks of depression during and and importance of reporting the development or worsening of symptoms should they occur.Pt had suicidal thoughts in the past. She was hospitalized in 2006 and 2016 for overdose. She denies any suicidal thoughts since her last hospitalization 09/2016. TKRN Opioid abuse 08/13/2015 03/04/2021 Overview: 07/2018 Currently participating in suboxone clinic at [facility] Bipolar affective disorder 12/16/2014 1 05/05/2020 Overview: Patient has refused returning to psych Anxiety 10/23/2014 03/04/2021 Last Assessment & Plan: Anxiety for the past Many Years, is on clonidine for it and it helps her. Takes it 3 times a day. 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03-28-2019 History of Past illness Narrative* Problem Noted Date Diagnosed Date Resolved Date Vitamin D deficiency 06/07/2018 023 History of suicidal ideation 04/06/2017 03/04/2021 Overview: 04/06/2017Pt has a history of Bipolar Disorder . She currently takes multiple medications to treat it. She sees a counselor at [facility], Nanci Kong and she also attends [facility]. She is advised to discuss her psychiatric medications she is taking with the psychiatrist at [facility] , since she will be seeing him this week. I told her that most medications were a Class C , except for Toprimate which is a Class D. Discussed increased risks of depression during and and importance of reporting the development or worsening of symptoms should they occur.Pt had suicidal thoughts in the past. She was hospitalized in 2006 and 2016 for overdose. She denies any suicidal thoughts since her last hospitalization 09/2016. TKRN Opioid abuse 08/13/2015 03/04/2021 Overview: 07/2018 Currently participating in suboxone clinic at [facility] Bipolar affective disorder 12/16/2014 1 05/05/2020 Overview: Patient has refused returning to psych Anxiety 10/23/2014 03/04/2021 Last Assessment & Plan: Anxiety for the past Many Years, is on clonidine for it and it helps her. Takes it 3 times a day. 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03-28-2019 History of Past illness Narrative* Problem Noted Date Diagnosed Date Resolved Date Vitamin D deficiency 06/07/2018 023 History of suicidal ideation 04/06/2017 03/04/2021 Overview: 04/06/2017Pt has a history of Bipolar Disorder . She currently takes multiple medications to treat it. She sees a counselor at [facility], Nanci Kong and she also attends [facility]. She is advised to discuss her psychiatric medications she is taking with the psychiatrist at [facility] , since she will be seeing him this week. I told her that most medications were a Class C , except for Toprimate which is a Class D. Discussed increased risks of depression during and and importance of reporting the development or worsening of symptoms should they occur.Pt had suicidal thoughts in the past. She was hospitalized in 2006 and 2016 for overdose. She denies any suicidal thoughts since her last hospitalization 09/2016. TKRN Opioid abuse 08/13/2015 03/04/2021 Overview: 07/2018 Currently participating in suboxone clinic at [facility] Bipolar affective disorder 12/16/2014 1 05/05/2020 Overview: Patient has refused returning to psych Anxiety 10/23/2014 03/04/2021 Last Assessment & Plan: Anxiety for the past Many Years, is on clonidine for it and it helps her. Takes it 3 times a day. 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03-[facility]-2019 History of Past illness Narrative* Problem Noted Date Diagnosed Date Resolved Date Vitamin D deficiency 06/07/2018 01/03/2 023 History of suicidal ideation 04/06/2017 03/04/2021 Overview: 04/06/2017Pt has a history of Bipolar Disorder . She currently takes multiple medications to treat it. She sees a counselor at [facility], Nanci Kong and she also attends [facility]. She is advised to discuss her psychiatric medications she is taking with the psychiatrist at [facility] , since she will be seeing him this week. I told her that most medications were a Class C , except for Toprimate which is a Class D. Discussed increased risks of depression during and and importance of reporting the development or worsening of symptoms should they occur.Pt had suicidal thoughts in the past. She was hospitalized in 2006 and 2016 for overdose. She denies any suicidal thoughts since her last hospitalization 09/2016. TKRN Opioid abuse 08/13/2015 03/04/2021 Overview: 07/2018 Currently participating in suboxone clinic at [facility] Bipolar affective disorder 12/16/2014 1 05/05/2020 Overview: Patient has refused returning to psych Anxiety 10/23/2014 03/04/2021 Last Assessment & Plan: Anxiety for the past Many Years, is on clonidine for it and it helps her. Takes it 3 times a day. 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03-[facility]-2019 History of Past illness Narrative* Problem Noted Date Diagnosed Date Resolved Date Vitamin D deficiency 06/07/2018 023 History of suicidal ideation 04/06/2017 03/04/2021 Overview: 04/06/2017Pt has a history of Bipolar Disorder . She currently takes multiple medications to treat it. She sees a counselor at [facility], Nanci Kong and she also attends [facility]. She is advised to discuss her psychiatric medications she is taking with the psychiatrist at [facility] , since she will be seeing him this week. I told her that most medications were a Class C , except for Toprimate which is a Class D. Discussed increased risks of depression during and and importance of reporting the development or worsening of symptoms should they occur.Pt had suicidal thoughts in the past. She was hospitalized in 2006 and 2016 for overdose. She denies any suicidal thoughts since her last hospitalization 09/2016. TKRN Opioid abuse 08/13/2015 03/04/2021 Overview: 07/2018 Currently participating in suboxone clinic at [facility] Bipolar affective disorder 12/16/2014 1 05/05/2020 Overview: Patient has refused returning to psych Anxiety 10/23/2014 03/04/2021 Last Assessment & Plan: Anxiety for the past Many Years, is on clonidine for it and it helps her. Takes it 3 times a day. 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03-[facility]-2019 History of Past illness Narrative* Problem Noted Date Diagnosed Date Resolved Date Vitamin D deficiency 06/07/2018 023 History of suicidal ideation 04/06/2017 03/04/2021 Overview: 04/06/2017Pt has a history of Bipolar Disorder . She currently takes multiple medications to treat it. She sees a counselor at [facility], Nanci Kong and she also attends [facility]. She is advised to discuss her psychiatric medications she is taking with the psychiatrist at [facility] , since she will be seeing him this week. I told her that most medications were a Class C , except for Toprimate which is a Class D. Discussed increased risks of depression during and and importance of reporting the development or worsening of symptoms should they occur.Pt had suicidal thoughts in the past. She was hospitalized in 2006 and 2016 for overdose. She denies any suicidal thoughts since her last hospitalization 09/2016. TKRN Opioid abuse 08/13/2015 03/04/2021 Overview: 07/2018 Currently participating in suboxone clinic at [facility] Bipolar affective disorder 12/16/2014 1 05/05/2020 Overview: Patient has refused returning to psych Anxiety 10/23/2014 03/04/2021 Last Assessment & Plan: Anxiety for the past Many Years, is on clonidine for it and it helps her. Takes it 3 times a day. 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03-[facility]-2019 History of Past illness Narrative* Problem Noted Date Diagnosed Date Resolved Date Vitamin D deficiency 06/07/2018 023 History of suicidal ideation 04/06/2017 03/04/2021 Overview: 04/06/2017Pt has a history of Bipolar Disorder . She currently takes multiple medications to treat it. She sees a counselor at [facility], Nanci Kong and she also attends [facility]. She is advised to discuss her psychiatric medications she is taking with the psychiatrist at [facility] , since she will be seeing him this week. I told her that most medications were a Class C , except for Toprimate which is a Class D. Discussed increased risks of depression during and and importance of reporting the development or worsening of symptoms should they occur.Pt had suicidal thoughts in the past. She was hospitalized in 2006 and 2016 for overdose. She denies any suicidal thoughts since her last hospitalization 09/2016. TKRN Opioid abuse 08/13/2015 03/04/2021 Overview: 07/2018 Currently participating in suboxone clinic at [facility] Bipolar affective disorder 12/16/2014 1 05/05/2020 Overview: Patient has refused returning to psych Anxiety 10/23/2014 03/04/2021 Last Assessment & Plan: Anxiety for the past Many Years, is on clonidine for it and it helps her. Takes it 3 times a day. 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03-28-2019 History of Past illness Narrative* Problem Noted Date Diagnosed Date Resolved Date Vitamin D deficiency 06/07/2018 023 History of suicidal ideation 04/06/2017 03/04/2021 Overview: 04/06/2017Pt has a history of Bipolar Disorder . She currently takes multiple medications to treat it. She sees a counselor at [facility], Nanci Kong and she also attends [facility]. She is advised to discuss her psychiatric medications she is taking with the psychiatrist at [facility] , since she will be seeing him this week. I told her that most medications were a Class C , except for Toprimate which is a Class D. Discussed increased risks of depression during and and importance of reporting the development or worsening of symptoms should they occur.Pt had suicidal thoughts in the past. She was hospitalized in 2006 and 2016 for overdose. She denies any suicidal thoughts since her last hospitalization 09/2016. TKRN Opioid abuse 08/13/2015 03/04/2021 Overview: 07/2018 Currently participating in suboxone clinic at [facility] Bipolar affective disorder 12/16/2014 1 05/05/2020 Overview: Patient has refused returning to psych Anxiety 10/23/2014 03/04/2021 Last Assessment & Plan: Anxiety for the past Many Years, is on clonidine for it and it helps her. Takes it 3 times a day. 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03[facility] History of Past illness Narrative* Problem Noted Date Diagnosed Date Resolved Date Vitamin D deficiency 06/07/2018 023 History of suicidal ideation 04/06/2017 03/04/2021 Overview: 04/06/2017Pt has a history of Bipolar Disorder . She currently takes multiple medications to treat it. She sees a counselor at [facility], Nanci Kong and she also attends [facility]. She is advised to discuss her psychiatric medications she is taking with the psychiatrist at [facility] , since she will be seeing him this week. I told her that most medications were a Class C , except for Toprimate which is a Class D. Discussed increased risks of depression during and and importance of reporting the development or worsening of symptoms should they occur.Pt had suicidal thoughts in the past. She was hospitalized in 2006 and 2016 for overdose. She denies any suicidal thoughts since her last hospitalization 09/2016. TKRN Opioid abuse 08/13/2015 03/04/2021 Overview: 07/2018 Currently participating in suboxone clinic at [facility] Bipolar affective disorder 12/16/2014 1 05/05/2020 Overview: Patient has refused returning to psych Anxiety 10/23/2014 03/04/2021 Last Assessment & Plan: Anxiety for the past Many Years, is on clonidine for it and it helps her. Takes it 3 times a day. 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03[facility] History of Past illness Narrative* Problem Noted Date Diagnosed Date Resolved Date Vitamin D deficiency 06/07/2018 023 History of suicidal ideation 04/06/2017 03/04/2021 Overview: 04/06/2017Pt has a history of Bipolar Disorder . She currently takes multiple medications to treat it. She sees a counselor at [facility], Nanci Kong and she also attends [facility]. She is advised to discuss her psychiatric medications she is taking with the psychiatrist at [facility] , since she will be seeing him this week. I told her that most medications were a Class C , except for Toprimate which is a Class D. Discussed increased risks of depression during and and importance of reporting the development or worsening of symptoms should they occur.Pt had suicidal thoughts in the past. She was hospitalized in 2006 and 2016 for overdose. She denies any suicidal thoughts since her last hospitalization 09/2016. TKRN Opioid abuse 08/13/2015 03/04/2021 Overview: 07/2018 Currently participating in suboxone clinic at [facility] Bipolar affective disorder 12/16/2014 1 05/05/2020 Overview: Patient has refused returning to psych Anxiety 10/23/2014 03/04/2021 Last Assessment & Plan: Anxiety for the past Many Years, is on clonidine for it and it helps her. Takes it 3 times a day. 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 History of Past illness Narrative* Problem Noted Date Diagnosed Date Resolved Date Vitamin D deficiency 06/07/2018 023 History of suicidal ideation 04/06/2017 03/04/2021 Overview: 04/06/2017Pt has a history of Bipolar Disorder . She currently takes multiple medications to treat it. She sees a counselor at [facility], Nanci Kong and she also attends [facility]. She is advised to discuss her psychiatric medications she is taking with the psychiatrist at [facility] , since she will be seeing him this week. I told her that most medications were a Class C , except for Toprimate which is a Class D. Discussed increased risks of depression during and and importance of reporting the development or worsening of symptoms should they occur.Pt had suicidal thoughts in the past. She was hospitalized in 2006 and 2016 for overdose. She denies any suicidal thoughts since her last hospitalization 09/2016. TKRN Opioid abuse 08/13/2015 03/04/2021 Overview: 07/2018 Currently participating in suboxone clinic at [facility] Bipolar affective disorder 12/16/2014 1 05/05/2020 Overview: Patient has refused returning to psych Anxiety 10/23/2014 03/04/2021 Last Assessment & Plan: Anxiety for the past Many Years, is on clonidine for it and it helps her. Takes it 3 times a day. 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 History of Past illness Narrative* Problem Noted Date Diagnosed Date Resolved Date Vitamin D deficiency 06/07/2018 023 History of suicidal ideation 04/06/2017 03/04/2021 Overview: 04/06/2017Pt has a history of Bipolar Disorder . She currently takes multiple medications to treat it. She sees a counselor at [facility], Nanci Kong and she also attends [facility]. She is advised to discuss her psychiatric medications she is taking with the psychiatrist at [facility] , since she will be seeing him this week. I told her that most medications were a Class C , except for Toprimate which is a Class D. Discussed increased risks of depression during and and importance of reporting the development or worsening of symptoms should they occur.Pt had suicidal thoughts in the past. She was hospitalized in 2006 and 2016 for overdose. She denies any suicidal thoughts since her last hospitalization 09/2016. TKRN Opioid abuse 08/13/2015 03/04/2021 Overview: 07/2018 Currently participating in suboxone clinic at [facility] Bipolar affective disorder 12/16/2014 1 05/05/2020 Overview: Patient has refused returning to psych Anxiety 10/23/2014 03/04/2021 Last Assessment & Plan: Anxiety for the past Many Years, is on clonidine for it and it helps her. Takes it 3 times a day. 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 History of Past illness Narrative* Problem Noted Date Diagnosed Date Resolved Date Vitamin D deficiency 06/07/2018 023 History of suicidal ideation 04/06/2017 03/04/2021 Overview: 04/06/2017Pt has a history of Bipolar Disorder . She currently takes multiple medications to treat it. She sees a counselor at [facility], Nanci Kong and she also attends [facility]. She is advised to discuss her psychiatric medications she is taking with the psychiatrist at [facility] , since she will be seeing him this week. I told her that most medications were a Class C , except for Toprimate which is a Class D. Discussed increased risks of depression during and and importance of reporting the development or worsening of symptoms should they occur.Pt had suicidal thoughts in the past. She was hospitalized in 2006 and 2016 for overdose. She denies any suicidal thoughts since her last hospitalization 09/2016. TKRN Opioid abuse 08/13/2015 03/04/2021 Overview: 07/2018 Currently participating in suboxone clinic at [facility] Bipolar affective disorder 12/16/2014 1 05/05/2020 Overview: Patient has refused returning to psych Anxiety 10/23/2014 03/04/2021 Last Assessment & Plan: Anxiety for the past Many Years, is on clonidine for it and it helps her. Takes it 3 times a day. 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03-28-2019 History of Past illness Narrative* Problem Noted Date Diagnosed Date Resolved Date Vitamin D deficiency 06/07/2018 023 History of suicidal ideation 04/06/2017 03/04/2021 Overview: 04/06/2017Pt has a history of Bipolar Disorder . She currently takes multiple medications to treat it. She sees a counselor at [facility], Nanci Kong and she also attends [facility]. She is advised to discuss her psychiatric medications she is taking with the psychiatrist at [facility] , since she will be seeing him this week. I told her that most medications were a Class C , except for Toprimate which is a Class D. Discussed increased risks of depression during and and importance of reporting the development or worsening of symptoms should they occur.Pt had suicidal thoughts in the past. She was hospitalized in 2006 and 2016 for overdose. She denies any suicidal thoughts since her last hospitalization 09/2016. TKRN Opioid abuse 08/13/2015 03/04/2021 Overview: 07/2018 Currently participating in suboxone clinic at [address] [place] [address] affective disorder 12/16/2014 1 05/05/2020 Overview: Patient has refused returning to psych Anxiety 10/23/2014 03/04/2021 Last Assessment & Plan: Anxiety for the past Many Years, is on clonidine for it and it helps her. Takes it 3 times a day. 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03-28-2019 History of Past illness Narrative* Problem Noted Date Diagnosed Date Resolved Date Vitamin D deficiency 06/07/2018 023 History of suicidal ideation 04/06/2017 03/04/2021 Overview: 04/06/2017Pt has a history of Bipolar Disorder . She currently takes multiple medications to treat it. She sees a counselor at [facility], Nanci Kong and she also attends [facility]. She is advised to discuss her psychiatric medications she is taking with the psychiatrist at [facility] , since she will be seeing him this week. I told her that most medications were a Class C , except for Toprimate which is a Class D. Discussed increased risks of depression during and and importance of reporting the development or worsening of symptoms should they occur.Pt had suicidal thoughts in the past. She was hospitalized in 2006 and 2016 for overdose. She denies any suicidal thoughts since her last hospitalization 09/2016. TKRN Opioid abuse 08/13/2015 03/04/2021 Overview: 07/2018 Currently participating in suboxone clinic at [address] Bipolar affective disorder 12/16/2014 1 05/05/2020 Overview: Patient has refused returning to psych Anxiety 10/23/2014 03/04/2021 Last Assessment & Plan: Anxiety for the past Many Years, is on clonidine for it and it helps her. Takes it 3 times a day. 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03-28-2019 History of Past illness Narrative* Problem Noted Date Diagnosed Date Resolved Date Vitamin D deficiency 06/07/2018 023 History of suicidal ideation 04/06/2017 03/04/2021 Overview: 04/06/2017Pt has a history of Bipolar Disorder . She currently takes multiple medications to treat it. She sees a counselor at [facility], Nanci Kong and she also attends [facility]. She is advised to discuss her psychiatric medications she is taking with the psychiatrist at [facility] , since she will be seeing him this week. I told her that most medications were a Class C , except for Toprimate which is a Class D. Discussed increased risks of depression during and and importance of reporting the development or worsening of symptoms should they occur.Pt had suicidal thoughts in the past. She was hospitalized in 2006 and 2016 for overdose. She denies any suicidal thoughts since her last hospitalization 09/2016. TKRN Opioid abuse 08/13/2015 03/04/2021 Overview: 07/2018 Currently participating in suboxone clinic at [facility] Bipolar affective disorder 12/16/2014 1 05/05/2020 Overview: Patient has refused returning to psych Anxiety 10/23/2014 03/04/2021 Last Assessment & Plan: Anxiety for the past Many Years, is on clonidine for it and it helps her. Takes it 3 times a day. 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03[facility] History of Past illness Narrative* Problem Noted Date Diagnosed Date Resolved Date Vitamin D deficiency 06/07/2018 023 History of suicidal ideation 04/06/2017 03/04/2021 Overview: 04/06/2017Pt has a history of Bipolar Disorder . She currently takes multiple medications to treat it. She sees a counselor at [facility], Nanci Kong and she also attends [facility]. She is advised to discuss her psychiatric medications she is taking with the psychiatrist at [facility] , since she will be seeing him this week. I told her that most medications were a Class C , except for Toprimate which is a Class D. Discussed increased risks of depression during and and importance of reporting the development or worsening of symptoms should they occur.Pt had suicidal thoughts in the past. She was hospitalized in 2006 and 2016 for overdose. She denies any suicidal thoughts since her last hospitalization 09/2016. TKRN Opioid abuse 08/13/2015 03/04/2021 Overview: 07/2018 Currently participating in suboxone clinic at [facility] Bipolar affective disorder 12/16/2014 1 05/05/2020 Overview: Patient has refused returning to psych Anxiety 10/23/2014 03/04/2021 Last Assessment & Plan: Anxiety for the past Many Years, is on clonidine for it and it helps her. Takes it 3 times a day. 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03-[facility]-2019 History of Past illness Narrative* Problem Noted Date Diagnosed Date Resolved Date Vitamin D deficiency 06/07/2018 023 History of suicidal ideation 04/06/2017 03/04/2021 Overview: 04/06/2017Pt has a history of Bipolar Disorder . She currently takes multiple medications to treat it. She sees a counselor at [facility], Nanci Kong and she also attends [facility]. She is advised to discuss her psychiatric medications she is taking with the psychiatrist at [facility] , since she will be seeing him this week. I told her that most medications were a Class C , except for Toprimate which is a Class D. Discussed increased risks of depression during and and importance of reporting the development or worsening of symptoms should they occur.Pt had suicidal thoughts in the past. She was hospitalized in 2006 and 2016 for overdose. She denies any suicidal thoughts since her last hospitalization 09/2016. TKRN Opioid abuse 08/13/2015 03/04/2021 Overview: 07/2018 Currently participating in suboxone clinic at [facility] Bipolar affective disorder 12/16/2014 1 05/05/2020 Overview: Patient has refused returning to psych Anxiety 10/23/2014 03/04/2021 Last Assessment & Plan: Anxiety for the past Many Years, is on clonidine for it and it helps her. Takes it 3 times a day. 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03-[facility]-2019 History of Past illness Narrative* Problem Noted Date Diagnosed Date Resolved Date Vitamin D deficiency 06/07/2018 023 History of suicidal ideation 04/06/2017 03/04/2021 Overview: 04/06/2017Pt has a history of Bipolar Disorder . She currently takes multiple medications to treat it. She sees a counselor at [facility], Nanci Kong and she also attends [facility]. She is advised to discuss her psychiatric medications she is taking with the psychiatrist at [facility] , since she will be seeing him this week. I told her that most medications were a Class C , except for Toprimate which is a Class D. Discussed increased risks of depression during and and importance of reporting the development or worsening of symptoms should they occur.Pt had suicidal thoughts in the past. She was hospitalized in 2006 and 2016 for overdose. She denies any suicidal thoughts since her last hospitalization 09/2016. TKRN Opioid abuse 08/13/2015 03/04/2021 Overview: 07/2018 Currently participating in suboxone clinic at [facility] Bipolar affective disorder 12/16/2014 1 05/05/2020 Overview: Patient has refused returning to psych Anxiety 10/23/2014 03/04/2021 Last Assessment & Plan: Anxiety for the past Many Years, is on clonidine for it and it helps her. Takes it 3 times a day. 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03-28-2019 History of Past illness Narrative* Problem Noted Date Diagnosed Date Resolved Date Vitamin D deficiency 06/07/2018 023 History of suicidal ideation 04/06/2017 03/04/2021 Overview: 04/06/2017Pt has a history of Bipolar Disorder . She currently takes multiple medications to treat it. She sees a counselor at [facility], Nanci Kong and she also attends [facility]. She is advised to discuss her psychiatric medications she is taking with the psychiatrist at [facility] , since she will be seeing him this week. I told her that most medications were a Class C , except for Toprimate which is a Class D. Discussed increased risks of depression during and and importance of reporting the development or worsening of symptoms should they occur.Pt had suicidal thoughts in the past. She was hospitalized in 2006 and 2016 for overdose. She denies any suicidal thoughts since her last hospitalization 09/2016. TKRN Opioid abuse 08/13/2015 03/04/2021 Overview: 07/2018 Currently participating in suboxone clinic at [facility] Bipolar affective disorder 12/16/2014 1 05/05/2020 Overview: Patient has refused returning to psych Anxiety 10/23/2014 03/04/2021 Last Assessment & Plan: Anxiety for the past Many Years, is on clonidine for it and it helps her. Takes it 3 times a day. 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03[facility] History of Past illness Narrative* Problem Noted Date Diagnosed Date Resolved Date Vitamin D deficiency 06/07/2018 023 History of suicidal ideation 04/06/2017 03/04/2021 Overview: 04/06/2017Pt has a history of Bipolar Disorder . She currently takes multiple medications to treat it. She sees a counselor at [facility], Nanci Kong and she also attends [facility]. She is advised to discuss her psychiatric medications she is taking with the psychiatrist at [facility] , since she will be seeing him this week. I told her that most medications were a Class C , except for Toprimate which is a Class D. Discussed increased risks of depression during and and importance of reporting the development or worsening of symptoms should they occur.Pt had suicidal thoughts in the past. She was hospitalized in 2006 and 2016 for overdose. She denies any suicidal thoughts since her last hospitalization 09/2016. TKRN Opioid abuse 08/13/2015 03/04/2021 Overview: 07/2018 Currently participating in suboxone clinic at [address] [place] [address] affective disorder 12/16/2014 1 05/05/2020 Overview: Patient has refused returning to psych Anxiety 10/23/2014 03/04/2021 Last Assessment & Plan: Anxiety for the past Many Years, is on clonidine for it and it helps her. Takes it 3 times a day. 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03[facility] History of Past illness Narrative* Problem Noted Date Diagnosed Date Resolved Date Vitamin D deficiency 06/07/2018 023 History of suicidal ideation 04/06/2017 03/04/2021 Overview: 04/06/2017Pt has a history of Bipolar Disorder . She currently takes multiple medications to treat it. She sees a counselor at [facility], Nanci Kong and she also attends [facility]. She is advised to discuss her psychiatric medications she is taking with the psychiatrist at [facility] , since she will be seeing him this week. I told her that most medications were a Class C , except for Toprimate which is a Class D. Discussed increased risks of depression during and and importance of reporting the development or worsening of symptoms should they occur.Pt had suicidal thoughts in the past. She was hospitalized in 2006 and 2016 for overdose. She denies any suicidal thoughts since her last hospitalization 09/2016. TKRN Opioid abuse 08/13/2015 03/04/2021 Overview: 07/2018 Currently participating in suboxone clinic at [facility] Bipolar affective disorder 12/16/2014 1 05/05/2020 Overview: Patient has refused returning to psych Anxiety 10/23/2014 03/04/2021 Last Assessment & Plan: Anxiety for the past Many Years, is on clonidine for it and it helps her. Takes it 3 times a day. 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03[facility] History of Past illness Narrative* Problem Noted Date Diagnosed Date Resolved Date Vitamin D deficiency 06/07/2018 023 History of suicidal ideation 04/06/2017 03/04/2021 Overview: 04/06/2017Pt has a history of Bipolar Disorder . She currently takes multiple medications to treat it. She sees a counselor at [facility], Nanci Kong and she also attends [facility]. She is advised to discuss her psychiatric medications she is taking with the psychiatrist at [facility] , since she will be seeing him this week. I told her that most medications were a Class C , except for Toprimate which is a Class D. Discussed increased risks of depression during and and importance of reporting the development or worsening of symptoms should they occur.Pt had suicidal thoughts in the past. She was hospitalized in 2006 and 2016 for overdose. She denies any suicidal thoughts since her last hospitalization 09/2016. TKRN Opioid abuse 08/13/2015 03/04/2021 Overview: 07/2018 Currently participating in suboxone clinic at [facility] Bipolar affective disorder 12/16/2014 1 05/05/2020 Overview: Patient has refused returning to psych Anxiety 10/23/2014 03/04/2021 Last Assessment & Plan: Anxiety for the past Many Years, is on clonidine for it and it helps her. Takes it 3 times a day. 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 History of Past illness Narrative* Problem Noted Date Diagnosed Date Resolved Date Vitamin D deficiency 06/07/2018 023 History of suicidal ideation 04/06/2017 03/04/2021 Overview: 04/06/2017Pt has a history of Bipolar Disorder . She currently takes multiple medications to treat it. She sees a counselor at [facility], Nanci Kong and she also attends [facility]. She is advised to discuss her psychiatric medications she is taking with the psychiatrist at [facility] , since she will be seeing him this week. I told her that most medications were a Class C , except for Toprimate which is a Class D. Discussed increased risks of depression during and and importance of reporting the development or worsening of symptoms should they occur.Pt had suicidal thoughts in the past. She was hospitalized in 2006 and 2016 for overdose. She denies any suicidal thoughts since her last hospitalization 09/2016. TKRN Opioid abuse 08/13/2015 03/04/2021 Overview: 07/2018 Currently participating in suboxone clinic at [facility] Bipolar affective disorder 12/16/2014 1 05/05/2020 Overview: Patient has refused returning to psych Anxiety 10/23/2014 03/04/2021 Last Assessment & Plan: Anxiety for the past Many Years, is on clonidine for it and it helps her. Takes it 3 times a day. 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 History of Past illness Narrative* Problem Noted Date Diagnosed Date Resolved Date Vitamin D deficiency 06/07/2018 023 History of suicidal ideation 04/06/2017 03/04/2021 Overview: 04/06/2017Pt has a history of Bipolar Disorder . She currently takes multiple medications to treat it. She sees a counselor at [facility], Nanci Kong and she also attends [facility]. She is advised to discuss her psychiatric medications she is taking with the psychiatrist at [facility] , since she will be seeing him this week. I told her that most medications were a Class C , except for Toprimate which is a Class D. Discussed increased risks of depression during and and importance of reporting the development or worsening of symptoms should they occur.Pt had suicidal thoughts in the past. She was hospitalized in 2006 and 2016 for overdose. She denies any suicidal thoughts since her last hospitalization 09/2016. TKRN Opioid abuse 08/13/2015 03/04/2021 Overview: 07/2018 Currently participating in suboxone clinic at [facility] Bipolar affective disorder 12/16/2014 1 05/05/2020 Overview: Patient has refused returning to psych Anxiety 10/23/2014 03/04/2021 Last Assessment & Plan: Anxiety for the past Many Years, is on clonidine for it and it helps her. Takes it 3 times a day. 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03-28-2019 History of Past illness Narrative* Problem Noted Date Diagnosed Date Resolved Date Vitamin D deficiency 06/07/2018 023 History of suicidal ideation 04/06/2017 03/04/2021 Overview: 04/06/2017Pt has a history of Bipolar Disorder . She currently takes multiple medications to treat it. She sees a counselor at [facility], Nanci Kong and she also attends [facility]. She is advised to discuss her psychiatric medications she is taking with the psychiatrist at [facility] , since she will be seeing him this week. I told her that most medications were a Class C , except for Toprimate which is a Class D. Discussed increased risks of depression during and and importance of reporting the development or worsening of symptoms should they occur.Pt had suicidal thoughts in the past. She was hospitalized in 2006 and 2016 for overdose. She denies any suicidal thoughts since her last hospitalization 09/2016. TKRN Opioid abuse 08/13/2015 03/04/2021 Overview: 07/2018 Currently participating in suboxone clinic at [facility] Bipolar affective disorder 12/16/2014 1 05/05/2020 Overview: Patient has refused returning to psych Anxiety 10/23/2014 03/04/2021 Last Assessment & Plan: Anxiety for the past Many Years, is on clonidine for it and it helps her. Takes it 3 times a day. 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03-28-2019 History of Past illness Narrative* Problem Noted Date Diagnosed Date Resolved Date Vitamin D deficiency 06/07/2018 023 History of suicidal ideation 04/06/2017 03/04/2021 Overview: 04/06/2017Pt has a history of Bipolar Disorder . She currently takes multiple medications to treat it. She sees a counselor at [facility], Nanci Kong and she also attends [facility]. She is advised to discuss her psychiatric medications she is taking with the psychiatrist at [facility] , since she will be seeing him this week. I told her that most medications were a Class C , except for Toprimate which is a Class D. Discussed increased risks of depression during and and importance of reporting the development or worsening of symptoms should they occur.Pt had suicidal thoughts in the past. She was hospitalized in 2006 and 2016 for overdose. She denies any suicidal thoughts since her last hospitalization 09/2016. TKRN Opioid abuse 08/13/2015 03/04/2021 Overview: 07/2018 Currently participating in suboxone clinic at [facility] Bipolar affective disorder 12/16/2014 1 05/05/2020 Overview: Patient has refused returning to psych Anxiety 10/23/2014 03/04/2021 Last Assessment & Plan: Anxiety for the past Many Years, is on clonidine for it and it helps her. Takes it 3 times a day. 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03-[facility]2019 History of Past illness Narrative* Problem Noted Date Diagnosed Date Resolved Date Vitamin D deficiency 06/07/2018 023 History of suicidal ideation 04/06/2017 03/04/2021 Overview: 04/06/2017Pt has a history of Bipolar Disorder . She currently takes multiple medications to treat it. She sees a counselor at [facility], Nanci Kong and she also attends [facility]. She is advised to discuss her psychiatric medications she is taking with the psychiatrist at [facility] , since she will be seeing him this week. I told her that most medications were a Class C , except for Toprimate which is a Class D. Discussed increased risks of depression during and and importance of reporting the development or worsening of symptoms should they occur.Pt had suicidal thoughts in the past. She was hospitalized in 2006 and 2016 for overdose. She denies any suicidal thoughts since her last hospitalization 09/2016. TKRN Opioid abuse 08/13/2015 03/04/2021 Overview: 07/2018 Currently participating in suboxone clinic at [facility] Bipolar affective disorder 12/16/2014 1 05/05/2020 Overview: Patient has refused returning to psych Anxiety 10/23/2014 03/04/2021 Last Assessment & Plan: Anxiety for the past Many Years, is on clonidine for it and it helps her. Takes it 3 times a day. 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03[facility]2019 History of Past illness Narrative* Problem Noted Date Diagnosed Date Resolved Date Vitamin D deficiency 06/07/2018 023 History of suicidal ideation 04/06/2017 03/04/2021 Overview: 04/06/2017Pt has a history of Bipolar Disorder . She currently takes multiple medications to treat it. She sees a counselor at [facility], Nanci Kong and she also attends [facility]. She is advised to discuss her psychiatric medications she is taking with the psychiatrist at [facility] , since she will be seeing him this week. I told her that most medications were a Class C , except for Toprimate which is a Class D. Discussed increased risks of depression during and and importance of reporting the development or worsening of symptoms should they occur.Pt had suicidal thoughts in the past. She was hospitalized in 2006 and 2016 for overdose. She denies any suicidal thoughts since her last hospitalization 09/2016. TKRN Opioid abuse 08/13/2015 03/04/2021 Overview: 07/2018 Currently participating in suboxone clinic at [facility] Bipolar affective disorder 12/16/2014 1 05/05/2020 Overview: Patient has refused returning to psych Anxiety 10/23/2014 03/04/2021 Last Assessment & Plan: Anxiety for the past Many Years, is on clonidine for it and it helps her. Takes it 3 times a day. 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03-[facility]2019 History of Past illness Narrative* Problem Noted Date Diagnosed Date Resolved Date Vitamin D deficiency 06/07/2018 023 History of suicidal ideation 04/06/2017 03/04/2021 Overview: 04/06/2017Pt has a history of Bipolar Disorder . She currently takes multiple medications to treat it. She sees a counselor at [facility], Nanci Kong and she also attends [facility]. She is advised to discuss her psychiatric medications she is taking with the psychiatrist at [facility] , since she will be seeing him this week. I told her that most medications were a Class C , except for Toprimate which is a Class D. Discussed increased risks of depression during and and importance of reporting the development or worsening of symptoms should they occur.Pt had suicidal thoughts in the past. She was hospitalized in 2006 and 2016 for overdose. She denies any suicidal thoughts since her last hospitalization 09/2016. TKRN Opioid abuse 08/13/2015 03/04/2021 Overview: 07/2018 Currently participating in suboxone clinic at [facility] Bipolar affective disorder 12/16/2014 1 05/05/2020 Overview: Patient has refused returning to psych Anxiety 10/23/2014 03/04/2021 Last Assessment & Plan: Anxiety for the past Many Years, is on clonidine for it and it helps her. Takes it 3 times a day. 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03-[facility]-2019 History of Past illness Narrative* Problem Noted Date Diagnosed Date Resolved Date Vitamin D deficiency 06/07/2018 023 History of suicidal ideation 04/06/2017 03/04/2021 Overview: 04/06/2017Pt has a history of Bipolar Disorder . She currently takes multiple medications to treat it. She sees a counselor at [facility], Nanci Kong and she also attends [facility]. She is advised to discuss her psychiatric medications she is taking with the psychiatrist at [facility] , since she will be seeing him this week. I told her that most medications were a Class C , except for Toprimate which is a Class D. Discussed increased risks of depression during and and importance of reporting the development or worsening of symptoms should they occur.Pt had suicidal thoughts in the past. She was hospitalized in 2006 and 2016 for overdose. She denies any suicidal thoughts since her last hospitalization 09/2016. TKRN Opioid abuse 08/13/2015 03/04/2021 Overview: 07/2018 Currently participating in suboxone clinic at [facility] Bipolar affective disorder 12/16/2014 1 05/05/2020 Overview: Patient has refused returning to psych Anxiety 10/23/2014 03/04/2021 Last Assessment & Plan: Anxiety for the past Many Years, is on clonidine for it and it helps her. Takes it 3 times a day. 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03-28-2019 History of Past illness Narrative* Problem Noted Date Diagnosed Date Resolved Date Vitamin D deficiency 06/07/2018 023 History of suicidal ideation 04/06/2017 03/04/2021 Overview: 04/06/2017Pt has a history of Bipolar Disorder . She currently takes multiple medications to treat it. She sees a counselor at [facility], Nanci Kong and she also attends [facility]. She is advised to discuss her psychiatric medications she is taking with the psychiatrist at [facility] , since she will be seeing him this week. I told her that most medications were a Class C , except for Toprimate which is a Class D. Discussed increased risks of depression during and and importance of reporting the development or worsening of symptoms should they occur.Pt had suicidal thoughts in the past. She was hospitalized in 2006 and 2016 for overdose. She denies any suicidal thoughts since her last hospitalization 09/2016. TKRN Opioid abuse 08/13/2015 03/04/2021 Overview: 07/2018 Currently participating in suboxone clinic at [facility] Bipolar affective disorder 12/16/2014 1 05/05/2020 Overview: Patient has refused returning to psych Anxiety 10/23/2014 03/04/2021 Last Assessment & Plan: Anxiety for the past Many Years, is on clonidine for it and it helps her. Takes it 3 times a day. 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03-28-2019 History of Past illness Narrative* Problem Noted Date Diagnosed Date Resolved Date Vitamin D deficiency 06/07/2018 023 History of suicidal ideation 04/06/2017 03/04/2021 Overview: 04/06/2017Pt has a history of Bipolar Disorder . She currently takes multiple medications to treat it. She sees a counselor at [facility], Nanci Kong and she also attends [facility]. She is advised to discuss her psychiatric medications she is taking with the psychiatrist at [facility] , since she will be seeing him this week. I told her that most medications were a Class C , except for Toprimate which is a Class D. Discussed increased risks of depression during and and importance of reporting the development or worsening of symptoms should they occur.Pt had suicidal thoughts in the past. She was hospitalized in 2006 and 2016 for overdose. She denies any suicidal thoughts since her last hospitalization 09/2016. TKRN Opioid abuse 08/13/2015 03/04/2021 Overview: 07/2018 Currently participating in suboxone clinic at [facility] Bipolar affective disorder 12/16/2014 1 05/05/2020 Overview: Patient has refused returning to psych Anxiety 10/23/2014 03/04/2021 Last Assessment & Plan: Anxiety for the past Many Years, is on clonidine for it and it helps her. Takes it 3 times a day. 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03[facility]2019 History of Past illness Narrative* Problem Noted Date Diagnosed Date Resolved Date Vitamin D deficiency 06/07/2018 023 History of suicidal ideation 04/06/2017 03/04/2021 Overview: 04/06/2017Pt has a history of Bipolar Disorder . She currently takes multiple medications to treat it. She sees a counselor at [facility], Nanci Kong and she also attends [facility]. She is advised to discuss her psychiatric medications she is taking with the psychiatrist at [facility] , since she will be seeing him this week. I told her that most medications were a Class C , except for Toprimate which is a Class D. Discussed increased risks of depression during and and importance of reporting the development or worsening of symptoms should they occur.Pt had suicidal thoughts in the past. She was hospitalized in 2006 and 2016 for overdose. She denies any suicidal thoughts since her last hospitalization 09/2016. TKRN Opioid abuse 08/13/2015 03/04/2021 Overview: 07/2018 Currently participating in suboxone clinic at [facility] Bipolar affective disorder 12/16/2014 1 05/05/2020 Overview: Patient has refused returning to psych Anxiety 10/23/2014 03/04/2021 Last Assessment & Plan: Anxiety for the past Many Years, is on clonidine for it and it helps her. Takes it 3 times a day. 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03[facility] History of Past illness Narrative* Problem Noted Date Diagnosed Date Resolved Date Vitamin D deficiency 06/07/2018 023 History of suicidal ideation 04/06/2017 03/04/2021 Overview: 04/06/2017Pt has a history of Bipolar Disorder . She currently takes multiple medications to treat it. She sees a counselor at [facility], Nanci Kong and she also attends [facility]. She is advised to discuss her psychiatric medications she is taking with the psychiatrist at [facility] , since she will be seeing him this week. I told her that most medications were a Class C , except for Toprimate which is a Class D. Discussed increased risks of depression during and and importance of reporting the development or worsening of symptoms should they occur.Pt had suicidal thoughts in the past. She was hospitalized in 2006 and 2016 for overdose. She denies any suicidal thoughts since her last hospitalization 09/2016. TKRN Opioid abuse 08/13/2015 03/04/2021 Overview: 07/2018 Currently participating in suboxone clinic at [facility] Bipolar affective disorder 12/16/2014 1 05/05/2020 Overview: Patient has refused returning to psych Anxiety 10/23/2014 03/04/2021 Last Assessment & Plan: Anxiety for the past Many Years, is on clonidine for it and it helps her. Takes it 3 times a day. 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 History of Past illness Narrative* Problem Noted Date Diagnosed Date Resolved Date Vitamin D deficiency 06/07/2018 023 History of suicidal ideation 04/06/2017 03/04/2021 Overview: 04/06/2017Pt has a history of Bipolar Disorder . She currently takes multiple medications to treat it. She sees a counselor at [facility], Nanci Kong and she also attends [facility]. She is advised to discuss her psychiatric medications she is taking with the psychiatrist at [facility] , since she will be seeing him this week. I told her that most medications were a Class C , except for Toprimate which is a Class D. Discussed increased risks of depression during and and importance of reporting the development or worsening of symptoms should they occur.Pt had suicidal thoughts in the past. She was hospitalized in 2006 and 2016 for overdose. She denies any suicidal thoughts since her last hospitalization 09/2016. TKRN Opioid abuse 08/13/2015 03/04/2021 Overview: 07/2018 Currently participating in suboxone clinic at [facility] Bipolar affective disorder 12/16/2014 1 05/05/2020 Overview: Patient has refused returning to psych Anxiety 10/23/2014 03/04/2021 Last Assessment & Plan: Anxiety for the past Many Years, is on clonidine for it and it helps her. Takes it 3 times a day. 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 History of Past illness Narrative* Problem Noted Date Diagnosed Date Resolved Date Vitamin D deficiency 06/07/2018 023 History of suicidal ideation 04/06/2017 03/04/2021 Overview: 04/06/2017Pt has a history of Bipolar Disorder . She currently takes multiple medications to treat it. She sees a counselor at [facility], Nanci Kong and she also attends [facility]. She is advised to discuss her psychiatric medications she is taking with the psychiatrist at [facility] , since she will be seeing him this week. I told her that most medications were a Class C , except for Toprimate which is a Class D. Discussed increased risks of depression during and and importance of reporting the development or worsening of symptoms should they occur.Pt had suicidal thoughts in the past. She was hospitalized in 2006 and 2016 for overdose. She denies any suicidal thoughts since her last hospitalization 09/2016. TKRN Opioid abuse 08/13/2015 03/04/2021 Overview: 07/2018 Currently participating in suboxone clinic at [address] [place] [address] [facility] 12/16/2014 1 05/05/2020 Overview: Patient has refused returning to psych Anxiety 10/23/2014 03/04/2021 Last Assessment & Plan: Anxiety for the past Many Years, is on clonidine for it and it helps her. Takes it 3 times a day. 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03[facility] History of Past illness Narrative* Problem Noted Date Diagnosed Date Resolved Date Vitamin D deficiency 06/07/2018 023 History of suicidal ideation 04/06/2017 03/04/2021 Overview: 04/06/2017Pt has a history of Bipolar Disorder . She currently takes multiple medications to treat it. She sees a counselor at [facility], Nanci Kong and she also attends [facility]. She is advised to discuss her psychiatric medications she is taking with the psychiatrist at [facility] , since she will be seeing him this week. I told her that most medications were a Class C , except for Toprimate which is a Class D. Discussed increased risks of depression during and and importance of reporting the development or worsening of symptoms should they occur.Pt had suicidal thoughts in the past. She was hospitalized in 2006 and 2016 for overdose. She denies any suicidal thoughts since her last hospitalization 09/2016. TKRN Opioid abuse 08/13/2015 03/04/2021 Overview: 07/2018 Currently participating in suboxone clinic at [facility] Bipolar affective disorder 12/16/2014 1 05/05/2020 Overview: Patient has refused returning to psych Anxiety 10/23/2014 03/04/2021 Last Assessment & Plan: Anxiety for the past Many Years, is on clonidine for it and it helps her. Takes it 3 times a day. 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-2018 History of Past illness Narrative* Problem Noted Date Resolved Date History of suicidal ideation 04/06/2017 Overview: 04/06/2017Pt has a history of Bipolar Disorder . She currently takes multiple medications to treat it. She sees a counselor at [facility], Nanci Strenger and she also attends [facility]. She is advised to discuss her psychiatric medications she is taking with the psychiatrist at [facility] , since she will be seeing him this week. I told her that most medications were a Class C , except for Toprimate which is a Class D. Discussed increased risks of depression during and and importance of reporting the development or worsening of symptoms should they occur.Pt had suicidal thoughts in the past. She was hospitalized in 2006 and 2016 for overdose. She denies any suicidal thoughts since her last hospitalization 09/2016. TKRN Opioid abuse 08/13/2015 03/04/2021 Overview: 07/2018 Currently participating in suboxone clinic at [facility] Bipolar affective disorder 12/16/201403/04 Overview: Patient has refused returning to psych Anxiety 10/23/2014 03/04/2021 Last Assessment & Plan: Anxiety for the past Many Years, is on clonidine for it and it helps her. Takes it 3 times a day. 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01-[facility]-2018 History of Past illness Narrative* Problem Noted Date Resolved Date History of suicidal ideation 04/06/2017 Overview: 04/06/2017Pt has a history of Bipolar Disorder . She currently takes multiple medications to treat it. She sees a counselor at [facility], Nanci Kong and she also attends [facility]. She is advised to discuss her psychiatric medications she is taking with the psychiatrist at [facility] , since she will be seeing him this week. I told her that most medications were a Class C , except for Toprimate which is a Class D. Discussed increased risks of depression during and and importance of reporting the development or worsening of symptoms should they occur.Pt had suicidal thoughts in the past. She was hospitalized in 2006 and 2016 for overdose. She denies any suicidal thoughts since her last hospitalization 09/2016. TKRN Opioid abuse 08/13/2015 03/04/2021 Overview: 07/2018 Currently participating in suboxone clinic at [address] [place] [address] affective [facility] 12/16/201403/04 Overview: Patient has refused returning to psych Anxiety 10/23/2014 03/04/2021 Last Assessment & Plan: Anxiety for the past Many Years, is on clonidine for it and it helps her. Takes it 3 times a day. 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 History of Past illness Narrative* Problem Noted Date Resolved Date History of suicidal ideation 04/06/2017 Overview: 04/06/2017Pt has a history of Bipolar Disorder . She currently takes multiple medications to treat it. She sees a counselor at [facility], Nanci Kong and she also attends [facility]. She is advised to discuss her psychiatric medications she is taking with the psychiatrist at [facility] , since she will be seeing him this week. I told her that most medications were a Class C , except for Toprimate which is a Class D. Discussed increased risks of depression during and and importance of reporting the development or worsening of symptoms should they occur.Pt had suicidal thoughts in the past. She was hospitalized in 2006 and 2016 for overdose. She denies any suicidal thoughts since her last hospitalization 09/2016. TKRN Opioid abuse 08/13/2015 03/04/2021 Overview: 07/2018 Currently participating in suboxone clinic at [address] [place] [address] affective disorder 12/16/201403/04 Overview: Patient has refused returning to psych Anxiety 10/23/2014 03/04/2021 Last Assessment & Plan: Anxiety for the past Many Years, is on clonidine for it and it helps her. Takes it 3 times a day. 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 History of Past illness Narrative* Problem Noted Date Resolved Date History of suicidal ideation 04/06/2017 Overview: 04/06/2017Pt has a history of Bipolar Disorder . She currently takes multiple medications to treat it. She sees a counselor at [facility], Nanci Kong and she also attends [facility]. She is advised to discuss her psychiatric medications she is taking with the psychiatrist at [facility] , since she will be seeing him this week. I told her that most medications were a Class C , except for Toprimate which is a Class D. Discussed increased risks of depression during and and importance of reporting the development or worsening of symptoms should they occur.Pt had suicidal thoughts in the past. She was hospitalized in 2006 and 2016 for overdose. She denies any suicidal thoughts since her last hospitalization 09/2016. TKRN Opioid abuse 08/13/2015 03/04/2021 Overview: 07/2018 Currently participating in suboxone clinic at [address] [place] [address] affective disorder 12/16/201403/04 Overview: Patient has refused returning to psych Anxiety 10/23/2014 03/04/2021 Last Assessment & Plan: Anxiety for the past Many Years, is on clonidine for it and it helps her. Takes it 3 times a day. 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 History of Past illness Narrative* Problem Noted Date Resolved Date History of suicidal ideation 04/06/2017 Overview: 04/06/2017Pt has a history of Bipolar Disorder . She currently takes multiple medications to treat it. She sees a counselor at [facility], Nanci Kong and she also attends [facility]. She is advised to discuss her psychiatric medications she is taking with the psychiatrist at [facility] , since she will be seeing him this week. I told her that most medications were a Class C , except for Toprimate which is a Class D. Discussed increased risks of depression during and and importance of reporting the development or worsening of symptoms should they occur.Pt had suicidal thoughts in the past. She was hospitalized in 2006 and 2016 for overdose. She denies any suicidal thoughts since her last hospitalization 09/2016. TKRN Opioid abuse 08/13/2015 03/04/2021 Overview: 07/2018 Currently participating in suboxone clinic at [facility] Bipolar affective disorder 12/16/201403/04 Overview: Patient has refused returning to psych Anxiety 10/23/2014 03/04/2021 Last Assessment & Plan: Anxiety for the past Many Years, is on clonidine for it and it helps her. Takes it 3 times a day. 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 History of Past illness Narrative* Problem Noted Date Resolved Date History of suicidal ideation 04/06/2017 Overview: 04/06/2017Pt has a history of Bipolar Disorder . She currently takes multiple medications to treat it. She sees a counselor at [facility], Nanci Kong and she also attends [facility]. She is advised to discuss her psychiatric medications she is taking with the psychiatrist at [facility] , since she will be seeing him this week. I told her that most medications were a Class C , except for Toprimate which is a Class D. Discussed increased risks of depression during and and importance of reporting the development or worsening of symptoms should they occur.Pt had suicidal thoughts in the past. She was hospitalized in 2006 and 2016 for overdose. She denies any suicidal thoughts since her last hospitalization 09/2016. TKRN Opioid abuse 08/13/2015 03/04/2021 Overview: 07/2018 Currently participating in suboxone clinic at [facility] Bipolar affective disorder 12/16/201403/04 Overview: Patient has refused returning to psych Anxiety 10/23/2014 03/04/2021 Last Assessment & Plan: Anxiety for the past Many Years, is on clonidine for it and it helps her. Takes it 3 times a day. 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 History of Past illness Narrative* Problem Noted Date Resolved Date History of suicidal ideation 04/06/2017 Overview: 04/06/2017Pt has a history of Bipolar Disorder . She currently takes multiple medications to treat it. She sees a counselor at [facility], Nanci Kong and she also attends [facility]. She is advised to discuss her psychiatric medications she is taking with the psychiatrist at [facility] , since she will be seeing him this week. I told her that most medications were a Class C , except for Toprimate which is a Class D. Discussed increased risks of depression during and and importance of reporting the development or worsening of symptoms should they occur.Pt had suicidal thoughts in the past. She was hospitalized in 2006 and 2016 for overdose. She denies any suicidal thoughts since her last hospitalization 09/2016. TKRN Opioid abuse 08/13/2015 03/04/2021 Overview: 07/2018 Currently participating in suboxone clinic at [facility] Bipolar affective disorder 12/16/201403/04 Overview: Patient has refused returning to psych Anxiety 10/23/2014 03/04/2021 Last Assessment & Plan: Anxiety for the past Many Years, is on clonidine for it and it helps her. Takes it 3 times a day. 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 History of Past illness Narrative* Problem Noted Date Resolved Date History of suicidal ideation 04/06/2017 Overview: 04/06/2017Pt has a history of Bipolar Disorder . She currently takes multiple medications to treat it. She sees a counselor at [facility], Nanci Kong and she also attends [facility]. She is advised to discuss her psychiatric medications she is taking with the psychiatrist at [facility] , since she will be seeing him this week. I told her that most medications were a Class C , except for Toprimate which is a Class D. Discussed increased risks of depression during and and importance of reporting the development or worsening of symptoms should they occur.Pt had suicidal thoughts in the past. She was hospitalized in 2006 and 2016 for overdose. She denies any suicidal thoughts since her last hospitalization 09/2016. TKRN Opioid abuse 08/13/2015 03/04/2021 Overview: 07/2018 Currently participating in suboxone clinic at [facility] Bipolar affective disorder 12/16/201403/04 Overview: Patient has refused returning to psych Anxiety 10/23/2014 03/04/2021 Last Assessment & Plan: Anxiety for the past Many Years, is on clonidine for it and it helps her. Takes it 3 times a day. 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 History of Past illness Narrative* Problem Noted Date Resolved Date History of suicidal ideation 04/06/2017 Overview: 04/06/2017Pt has a history of Bipolar Disorder . She currently takes multiple medications to treat it. She sees a counselor at [facility], Nanci Kong and she also attends [facility]. She is advised to discuss her psychiatric medications she is taking with the psychiatrist at [facility] , since she will be seeing him this week. I told her that most medications were a Class C , except for Toprimate which is a Class D. Discussed increased risks of depression during and and importance of reporting the development or worsening of symptoms should they occur.Pt had suicidal thoughts in the past. She was hospitalized in 2006 and 2016 for overdose. She denies any suicidal thoughts since her last hospitalization 09/2016. TKRN Opioid abuse 08/13/2015 03/04/2021 Overview: 07/2018 Currently participating in suboxone clinic at [facility] Bipolar affective disorder 12/16/201403/04 Overview: Patient has refused returning to psych Anxiety 10/23/2014 03/04/2021 Last Assessment & Plan: Anxiety for the past Many Years, is on clonidine for it and it helps her. Takes it 3 times a day. 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 History of Past illness Narrative* Problem Noted Date Resolved Date History of suicidal ideation 04/06/2017 Overview: 04/06/2017Pt has a history of Bipolar Disorder . She currently takes multiple medications to treat it. She sees a counselor at [facility], Nanci Kong and she also attends [facility]. She is advised to discuss her psychiatric medications she is taking with the psychiatrist at [facility] , since she will be seeing him this week. I told her that most medications were a Class C , except for Toprimate which is a Class D. Discussed increased risks of depression during and and importance of reporting the development or worsening of symptoms should they occur.Pt had suicidal thoughts in the past. She was hospitalized in 2006 and 2016 for overdose. She denies any suicidal thoughts since her last hospitalization 09/2016. TKRN Opioid abuse 08/13/2015 03/04/2021 Overview: 07/2018 Currently participating in suboxone clinic at [facility] Bipolar affective disorder 12/16/201403/04 Overview: Patient has refused returning to psych Anxiety 10/23/2014 03/04/2021 Last Assessment & Plan: Anxiety for the past Many Years, is on clonidine for it and it helps her. Takes it 3 times a day. 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 History of Past illness Narrative* Problem Noted Date Resolved Date History of suicidal ideation 04/06/2017 Overview: 04/06/2017Pt has a history of Bipolar Disorder . She currently takes multiple medications to treat it. She sees a counselor at [facility], Nanci Kong and she also attends [facility]. She is advised to discuss her psychiatric medications she is taking with the psychiatrist at [facility] , since she will be seeing him this week. I told her that most medications were a Class C , except for Toprimate which is a Class D. Discussed increased risks of depression during and and importance of reporting the development or worsening of symptoms should they occur.Pt had suicidal thoughts in the past. She was hospitalized in 2006 and 2016 for overdose. She denies any suicidal thoughts since her last hospitalization 09/2016. TKRN Opioid abuse 08/13/2015 03/04/2021 Overview: 07/2018 Currently participating in suboxone clinic at [facility] Bipolar affective disorder 12/16/201403/04 Overview: Patient has refused returning to psych Anxiety 10/23/2014 03/04/2021 Last Assessment & Plan: Anxiety for the past Many Years, is on clonidine for it and it helps her. Takes it 3 times a day. 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 History of Past illness Narrative* Problem Noted Date Resolved Date History of suicidal ideation 04/06/2017 Overview: 04/06/2017Pt has a history of Bipolar Disorder . She currently takes multiple medications to treat it. She sees a counselor at [facility], Nanci Kong and she also attends [facility]. She is advised to discuss her psychiatric medications she is taking with the psychiatrist at [facility] , since she will be seeing him this week. I told her that most medications were a Class C , except for Toprimate which is a Class D. Discussed increased risks of depression during and and importance of reporting the development or worsening of symptoms should they occur.Pt had suicidal thoughts in the past. She was hospitalized in 2006 and 2016 for overdose. She denies any suicidal thoughts since her last hospitalization 09/2016. TKRN Opioid abuse 08/13/2015 03/04/2021 Overview: 07/2018 Currently participating in suboxone clinic at [facility] Bipolar affective disorder 12/16/201403/04 Overview: Patient has refused returning to psych Anxiety 10/23/2014 03/04/2021 Last Assessment & Plan: Anxiety for the past Many Years, is on clonidine for it and it helps her. Takes it 3 times a day. 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 History of Past illness Narrative* Problem Noted Date Resolved Date History of suicidal ideation 04/06/2017 Overview: 04/06/2017Pt has a history of Bipolar Disorder . She currently takes multiple medications to treat it. She sees a counselor at [facility], Nanci Kong and she also attends [facility]. She is advised to discuss her psychiatric medications she is taking with the psychiatrist at [facility] , since she will be seeing him this week. I told her that most medications were a Class C , except for Toprimate which is a Class D. Discussed increased risks of depression during and and importance of reporting the development or worsening of symptoms should they occur.Pt had suicidal thoughts in the past. She was hospitalized in 2006 and 2016 for overdose. She denies any suicidal thoughts since her last hospitalization 09/2016. TKRN Opioid abuse 08/13/2015 03/04/2021 Overview: 07/2018 Currently participating in suboxone clinic at [facility] Bipolar affective disorder 12/16/201403/04 Overview: Patient has refused returning to psych Anxiety 10/23/2014 03/04/2021 Last Assessment & Plan: Anxiety for the past Many Years, is on clonidine for it and it helps her. Takes it 3 times a day. 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 History of Past illness Narrative* Problem Noted Date Resolved Date History of suicidal ideation 04/06/2017 Overview: 04/06/2017Pt has a history of Bipolar Disorder . She currently takes multiple medications to treat it. She sees a counselor at [facility], Nanci Kong and she also attends [facility]. She is advised to discuss her psychiatric medications she is taking with the psychiatrist at [facility] , since she will be seeing him this week. I told her that most medications were a Class C , except for Toprimate which is a Class D. Discussed increased risks of depression during and and importance of reporting the development or worsening of symptoms should they occur.Pt had suicidal thoughts in the past. She was hospitalized in 2006 and 2016 for overdose. She denies any suicidal thoughts since her last hospitalization 09/2016. TKRN Opioid abuse 08/13/2015 03/04/2021 Overview: 07/2018 Currently participating in suboxone clinic at [facility] Bipolar affective disorder 12/16/201403/04 Overview: Patient has refused returning to psych Anxiety 10/23/2014 03/04/2021 Last Assessment & Plan: Anxiety for the past Many Years, is on clonidine for it and it helps her. Takes it 3 times a day. 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 History of Past illness Narrative* Problem Noted Date Resolved Date History of suicidal ideation 04/06/2017 Overview: 04/06/2017Pt has a history of Bipolar Disorder . She currently takes multiple medications to treat it. She sees a counselor at [facility], Nanci Kong and she also attends [facility]. She is advised to discuss her psychiatric medications she is taking with the psychiatrist at [facility] , since she will be seeing him this week. I told her that most medications were a Class C , except for Toprimate which is a Class D. Discussed increased risks of depression during and and importance of reporting the development or worsening of symptoms should they occur.Pt had suicidal thoughts in the past. She was hospitalized in 2006 and 2016 for overdose. She denies any suicidal thoughts since her last hospitalization 09/2016. TKRN Opioid abuse 08/13/2015 03/04/2021 Overview: 07/2018 Currently participating in suboxone clinic at [facility] Bipolar affective disorder 12/16/201403/04 Overview: Patient has refused returning to psych Anxiety 10/23/2014 03/04/2021 Last Assessment & Plan: Anxiety for the past Many Years, is on clonidine for it and it helps her. Takes it 3 times a day. 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 History of Past illness Narrative* Problem Noted Date Resolved Date History of suicidal ideation 04/06/2017 Overview: 04/06/2017Pt has a history of Bipolar Disorder . She currently takes multiple medications to treat it. She sees a counselor at [facility], Nanci Kong and she also attends [facility]. She is advised to discuss her psychiatric medications she is taking with the psychiatrist at [facility] , since she will be seeing him this week. I told her that most medications were a Class C , except for Toprimate which is a Class D. Discussed increased risks of depression during and and importance of reporting the development or worsening of symptoms should they occur.Pt had suicidal thoughts in the past. She was hospitalized in 2006 and 2016 for overdose. She denies any suicidal thoughts since her last hospitalization 09/2016. TKRN Opioid abuse 08/13/2015 03/04/2021 Overview: 07/2018 Currently participating in suboxone clinic at [facility] Bipolar affective disorder 12/16/201403/04 Overview: Patient has refused returning to psych Anxiety 10/23/2014 03/04/2021 Last Assessment & Plan: Anxiety for the past Many Years, is on clonidine for it and it helps her. Takes it 3 times a day. 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 History of Past illness Narrative* Problem Noted Date Resolved Date History of suicidal ideation 04/06/2017 Overview: 04/06/2017Pt has a history of Bipolar Disorder . She currently takes multiple medications to treat it. She sees a counselor at [facility], Nanci Kong and she also attends [facility]. She is advised to discuss her psychiatric medications she is taking with the psychiatrist at [facility] , since she will be seeing him this week. I told her that most medications were a Class C , except for Toprimate which is a Class D. Discussed increased risks of depression during and and importance of reporting the development or worsening of symptoms should they occur.Pt had suicidal thoughts in the past. She was hospitalized in 2006 and 2016 for overdose. She denies any suicidal thoughts since her last hospitalization 09/2016. TKRN Opioid abuse 08/13/2015 03/04/2021 Overview: 07/2018 Currently participating in suboxone clinic at [facility] Bipolar affective disorder 12/16/201403/04 Overview: Patient has refused returning to psych Anxiety 10/23/2014 03/04/2021 Last Assessment & Plan: Anxiety for the past Many Years, is on clonidine for it and it helps her. Takes it 3 times a day. 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 History of Past illness Narrative* Problem Noted Date Resolved Date History of suicidal ideation 04/06/2017 Overview: 04/06/2017Pt has a history of Bipolar Disorder . She currently takes multiple medications to treat it. She sees a counselor at [facility], Nanci Kong and she also attends [facility]. She is advised to discuss her psychiatric medications she is taking with the psychiatrist at [facility] , since she will be seeing him this week. I told her that most medications were a Class C , except for Toprimate which is a Class D. Discussed increased risks of depression during and and importance of reporting the development or worsening of symptoms should they occur.Pt had suicidal thoughts in the past. She was hospitalized in 2006 and 2016 for overdose. She denies any suicidal thoughts since her last hospitalization 09/2016. TKRN Opioid abuse 08/13/2015 03/04/2021 Overview: 07/2018 Currently participating in suboxone clinic at [facility] Bipolar affective disorder 12/16/201403/04 Overview: Patient has refused returning to psych Anxiety 10/23/2014 03/04/2021 Last Assessment & Plan: Anxiety for the past Many Years, is on clonidine for it and it helps her. Takes it 3 times a day. 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 History of Past illness Narrative* Problem Noted Date Resolved Date History of suicidal ideation 04/06/2017 Overview: 04/06/2017Pt has a history of Bipolar Disorder . She currently takes multiple medications to treat it. She sees a counselor at [facility], Nanci Kong and she also attends [facility]. She is advised to discuss her psychiatric medications she is taking with the psychiatrist at [facility] , since she will be seeing him this week. I told her that most medications were a Class C , except for Toprimate which is a Class D. Discussed increased risks of depression during and and importance of reporting the development or worsening of symptoms should they occur.Pt had suicidal thoughts in the past. She was hospitalized in 2006 and 2016 for overdose. She denies any suicidal thoughts since her last hospitalization 09/2016. TKRN Opioid abuse 08/13/2015 03/04/2021 Overview: 07/2018 Currently participating in suboxone clinic at [facility] Bipolar affective disorder 12/16/201403/04 Overview: Patient has refused returning to psych Anxiety 10/23/2014 03/04/2021 Last Assessment & Plan: Anxiety for the past Many Years, is on clonidine for it and it helps her. Takes it 3 times a day. 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 Appointment Date:03/30/2021 02:30:00 PM Scheduled Provider:ROWAN BARAJAS Location:[facility] Appointment Type:PC OV Future Scheduled Tests Laboratory* .Coronavirus 201805/11/20 Radiology* XR Chest 2 Views (PA & Lateral) 03/10/21 [facility] Evaluation + Plan note Future Appointments Appointment Date:04/02/2021 01:00:00 PM Scheduled Provider:ROWAN BARAJAS Location:[facility] Appointment Type:PC OV Appointment Date:06/22/2021 01:30:00 PM Scheduled Provider:ROWAN BARAJAS APRN-JOSE GUADALUPE Location:[facility] Appointment Type:PC OV Controlled Medication Future Scheduled Tests Laboratory* .Coronavirus 201805/11/20 Radiology* XR Chest 2 Views (PA & Lateral) 03/10/21 [facility] Evaluation + Plan note Future Appointments Appointment Date:06/22/2021 01:30:00 PM Scheduled Provider:ROWAN BARAJAS Location:[facility] Appointment Type:PC OV Controlled Medication Diagnostic Tests Pending * Vitamin B12 Level 04/07/21 Future Scheduled Tests Laboratory* .Coronavirus 201805/11/20 Radiology* XR Chest 2 Views (PA & Lateral) 03/10/21 [facility] Evaluation + Plan note Future Appointments Appointment Date:06/22/2021 01:30:00 PM Scheduled Provider:ROWAN BARAJAS Location:[facility] Appointment Type:PC OV Controlled Medication Future Scheduled Tests Laboratory* .Coronavirus 2019 05/11/20 * D-Dimer 04/19/21 * Thyroid Stimulating Hormone 04/19/21 * Free T4 04/19/21 * A1C Hemoglobin 04/19/21 * Cortisol Drawn in AM 04/19/21 * Lipid Profile 04/19/21 Radiology* XR Chest 2 Views (PA & Lateral) 03/10/21 [facility] Evaluation + Plan note Future Appointments Appointment Date:10/24/2022 03:30:00 PM Scheduled Provider:MICHELE BELL DO Location:[facility] Appointment Type:PC OV [facility] Evaluation + Plan note Future Appointments Appointment Date:04/04/2023 04:30:00 PM Scheduled Provider:MICHELE BELL DO Location:[facility] Appointment Type:PC OV Appointment Date:04/17/2023 03:00:00 PM Scheduled Provider:MICHELE BELL DO Location:[facility] Appointment Type:PC OV Appointment Date:04/27/2023 01:45:00 PM Scheduled Provider:DENNYS HAMILTON MD Location:[facility] Appointment Type:ENDO HOOKER [facility] Future Scheduled Tests Laboratory* Basic Metabolic Panel 02/10/23 * Thyroid Stimulating Hormone 03/14/23 * Thyroid Stimulating Hormone 02/10/23 * Free T4 03/14/23 * Free T4 02/10/23 * Vitamin B12 Level 02/10/23 * Free T3 03/14/23 * Vitamin D Level 02/10/23 [facility] Evaluation + Plan note Future Appointments Appointment Date:04/27/2023 01:45:00 PM Scheduled Provider:DENNYS HAMILTON MD Location:[facility] Appointment Type:ENDO HOOKER [facility] Appointment Date:05/31/2023 04:30:00 PM Scheduled Provider:MICHELE BELL DO Location:[facility] Appointment Type:PC OV [facility] Evaluation + Plan note Future Appointments Appointment Date:06/07/2023 04:30:00 PM Scheduled Provider:MICHELE BELL DO Location:[facility] Appointment Type:PC OV Appointment Date:06/22/2023 01:00:00 PM Scheduled Provider:DENNYS HAMILTON MD Location:[facility] Appointment Type:ENDO OV Diagnostic Tests Pending * Salivary Cortisol,MS 05/30/23 * Thyroid Stim Immunoglobulin 05/30/23 * TgAb+Thyroglobulin,TRISTON or LCMS 05/30/23 * ACTH, Plasma 05/30/23 Future Scheduled Tests Laboratory* Cortisol Level 05/25/23 * A1C Hemoglobin 04/18/23 * Albumin/Creatinine Ratio, Random Urine 04/27/23 * MISC Lab Send Out (Non-Blood Specimens) 04/27/23 * MISC Lab Send Out (Non-Blood Specimens) 04/27/23 [facility] Evaluation + Plan note Future Appointments Appointment Date:06/07/2023 04:30:00 PM Scheduled Provider:MICHELE BELL DO Location:[facility] Appointment Type:PC OV Appointment Date:06/22/2023 01:00:00 PM Scheduled Provider:DENNYS HAMILTON MD Location:[facility] Appointment Type:ENDO OV Future Scheduled Tests Laboratory* A1C Hemoglobin 04/18/23 * Albumin/Creatinine Ratio, Random Urine 04/27/23 * MISC Lab Send Out (Non-Blood Specimens) 04/27/23 * MISC Lab Send Out (Non-Blood Specimens) 04/27/23 [facility] Evaluation + Plan note Future Appointments Appointment Date:11/14/2023 02:45:00 PM Scheduled Provider:DENNYS HAMILTON MD Location:[facility] Appointment Type:ENDO OV Future Scheduled Tests Laboratory* Basic Metabolic Panel 06/27/23 * Thyroid Stimulating Hormone 07/27/23 * Free T4 07/27/23 * A1C Hemoglobin 04/18/23 * Free T3 07/27/23 * Albumin/Creatinine Ratio, Random Urine 10/27/23 * Albumin/Creatinine Ratio, Random Urine 04/27/23 * MISC Lab Send Out (Non-Blood Specimens) 04/27/23 * MISC Lab Send Out (Non-Blood Specimens) 04/27/23 [facility] Evaluation + Plan note Future Appointments Appointment Date:03/04/2024 01:20:00 PM Scheduled Provider:CRISTAL FIERRO MD Location:[facility] Appointment Type:GS OV Follow Up Future Scheduled Tests Laboratory* Basic Metabolic Panel 11/28/23 * Basic Metabolic Panel 06/27/23 * Magnesium Level 11/28/23 * Thyroid Stimulating Hormone 07/27/23 * Thyroid Stimulating Hormone 06/05/24 * Free T4 07/27/23 * Free T4 06/05/24 * A1C Hemoglobin 04/18/23 * A1C Hemoglobin 06/05/24 * Free T3 07/27/23 * Free T3 06/05/24 * Insulin Level Total 06/05/24 * Albumin/Creatinine Ratio, Random Urine 10/27/23 * Albumin/Creatinine Ratio, Random Urine 04/27/23 * Vitamin D Level 06/05/24 * Complete Metabolic Panel 06/05/24 * [facility] 04/27/23 * [facility] ([facility]ens) 04/27/23 [facility] Evaluation + Plan note Future Appointments Appointment Date:07/09/2024 02:00:00 PM Scheduled Provider:DENNYS HAMILTON MD Location:[facility] Appointment Type:ENDO OV Future Scheduled Tests Laboratory* Albumin/Creatinine Ratio, Random Urine 10/27/23 [facility] Evaluation + Plan note Future Appointments Appointment Date:07/09/2024 02:00:00 PM Scheduled Provider:DENNYS HAMILTON MD Location:[facility] Appointment Type:ENDO OV Diagnostic Tests Pending * HCV RT-PCR, Quant (Non-Graph) 07/08/24 * Hepatitis A Antibody IgG 07/08/24 Future Scheduled Tests Laboratory* Albumin/Creatinine Ratio, Random Urine 10/27/23 [facility] Evaluation + Plan note Future Appointments Appointment Date:08/16/2024 02:00:00 PM Scheduled Provider:OSBALDO BARRY Location:[facility] Appointment Type:PC OV Sleep Consult Appointment Date:08/26/2024 01:45:00 PM Scheduled Provider:MICHELE BELL DO Location:[facility] Appointment Type:PC OV Future Scheduled Tests Laboratory* Albumin/Creatinine Ratio, Random Urine 10/27/23 [facility] evaluation + Plan note Future Appointments Appointment Date:09/24/2024 03:45:00 PM Scheduled Provider:MICHELE BELL DO Location:[facility] Appointment Type:PC OV Future Scheduled Tests Laboratory* Albumin/Creatinine Ratio, Random Urine 10/27/23 [facility] Evaluation + Plan note Future Appointments Appointment Date:10/14/2024 02:45:00 PM Scheduled Provider:MICHELE BELL DO Location:[facility] Appointment Type:PC OV Diagnostic Tests Pending * Insulin Level Total 09/24/24 Future Scheduled Tests Laboratory* Basic Metabolic Panel 10/25/24 * Magnesium Level 10/25/24 * Albumin/Creatinine Ratio, Random Urine 10/27/23 [facility] evaluation note* Diagnosis Chronic hepatitis C without hepatic coma (HCC)- Primary Chronic hepatitis C without mention of hepatic coma Constipation, unspecified constipation type documented in this encounter [facility] note* Diagnosis Chronic hepatitis C without hepatic coma (HCC)- Primary Chronic hepatitis C without mention of hepatic coma documented in this encounter [facility] note* Diagnosis Vaginal discharge- Primary Leukorrhea, not specified as infective Dysuria Vaginal irritation Unspecified noninflammatory disorder of vagina documented in this encounter [facility] note* Diagnosis Constipation, unspecified constipation type [facility] Diagnosis Vulvar irritation- Primary Other specified noninflammatory disorder of vulva and perineum documented in this encounter [facility] note* Diagnosis Vaginal discharge- Primary Leukorrhea, not specified as infective Abnormal urine odor Other nonspecific finding on examination of urine documented in this encounter [facility] note* Diagnosis Yang glabrata infection- Primary Candidiasis of unspecified site documented in this encounter [facility] note* Diagnosis Vaginal discharge- Primary Leukorrhea, not specified as infective documented in this encounter [facility] note* Diagnosis Surveillance for control, oral contraceptives Surveillance of previously prescribed contraceptive pill documented in this encounter [facility] note* Diagnosis Chronic pain syndrome- Primary documented in this encounter [facility] note* Diagnosis Vulvar lesion- Primary Other specified noninflammatory disorder of vulva and perineum documented in this encounter [facility] note* Diagnosis Other chronic pain- Primary Fibromyalgia Mylagia and myositis, unspecified Spinal stenosis of lumbar region with neurogenic claudication Spinal stenosis, lumbar region, with neurogenic claudication Facet arthropathy, cervical Cervical spondylosis without myelopathy documented in this encounter [facility] note* Diagnosis Fibromyalgia- Primary Mylagia and myositis, unspecified documented in this encounter [facility] note* Diagnosis Genital herpes simplex, unspecified site documented in this encounter [facility] note* Diagnosis Fibromyalgia- Primary Mylagia and myositis, unspecified Chronic neck pain Cervicalgia Radiculopathy, lumbar region Thoracic or lumbosacral neuritis or radiculitis, unspecified documented in this encounter [facility] note* Diagnosis Chronic bilateral low back pain with bilateral sciatica- Primary documented in this encounter [facility] note* Diagnosis Fibromyalgia- Primary Unspecified myalgia and myositis BMI 37.0-37.9, adult Class 2 obesity without serious comorbidity with body mass index (BMI) of 37.0 to 37.9 in adult, unspecified obesity type Insulin resistance Other abnormal glucose Screening for diabetes mellitus (DM) Screening for diabetes mellitus Other fatigue Long-term use of high-risk medication documented in this encounter [facility] note* Diagnosis Acne vulgaris- Primary Other acne Other atopic dermatitis documented in this encounter [facility] note* Diagnosis Spinal stenosis of cervical region- Primary Spinal stenosis in cervical region Coccygodynia Other disorder of coccyx Segmental and somatic dysfunction of sacral region Nonallopathic lesion of sacral region, not elsewhere classified Chronic pelvic pain syndrome in female Chronic pain syndrome Central sensitization to pain documented in this encounter [facility] note* Diagnosis Cervicalgia- Primary Chronic pain syndrome Coccygodynia Other disorder of coccyx documented in this encounter [facility] note* Diagnosis Chronic bilateral low back pain with bilateral sciatica- Primary documented in this encounter [facility] note* Diagnosis Chronic pain syndrome- Primary documented in this encounter [facility] note* Diagnosis Slow transit constipation- Primary documented in this encounter [facility] note* Diagnosis Acne vulgaris- Primary Other acne Pruritus Unspecified pruritic disorder Skin lesion Unspecified disorder of skin and subcutaneous tissue Encounter for long-term (current) use of high-risk medication Encounter for long-term (current) use of other medications documented in this encounter [facility] note* Diagnosis Chronic bilateral low back pain with bilateral sciatica- Primary documented in this encounter [facility] note* Diagnosis Snoring- Primary Other dyspnea and respiratory abnormality Disturbance in sleep behavior Sleep disturbance, unspecified 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, delayed sleep phase type RLS (restless legs syndrome) Restless legs syndrome (RLS) Class 2 drug-induced obesity without serious comorbidity with body mass index (BMI) of 39.0 to 39.9 in adult Parasomnia, unspecified type Chronic insomnia Insomnia, unspecified H/O opioid abuse (HCC) Opioid abuse, in remission Drug abuse (HCC) Other, mixed, or unspecified nondependent drug abuse, unspecified Nocturnal sleep-related eating disorder Eating disorder, unspecified documented in this encounter [facility] note* Diagnosis Pain disorder associated with psychological factors and medical condition- Primary Other pain disorders related to psychological factors Chronic pain syndrome documented in this encounter [facility] note* Diagnosis Defective dental congregational- Primary Unspecified unsatisfactory congregational of tooth Encounter for dental examination Dental examination Dental caries Unspecified dental caries documented in this encounter [facility] note* Diagnosis Encounter for long-term current use of high risk medication Folliculitis Other specified disease of hair and hair follicles Intertrigo Other specified erythematous condition Other atopic dermatitis Acne vulgaris Other acne documented in this encounter [facility] note* Diagnosis Chronic back pain, unspecified back location, unspecified back pain laterality- Primary documented in this encounter [facility] note* Diagnosis Pain disorder associated with psychological factors and medical condition- Primary Other pain disorders related to psychological factors Chronic pain syndrome documented in this encounter [facility] note* Diagnosis Chronic bilateral low back pain with bilateral sciatica- Primary documented in this encounter [facility] note* Diagnosis Chronic bilateral low back pain with bilateral sciatica- Primary documented in this encounter [facility] note* Diagnosis Rash Rash and other nonspecific skin eruption Neoplasm of uncertain behavior of skin Acne vulgaris Other acne Encounter for long-term current use of high risk medication documented in this encounter [facility] note* Diagnosis Surveillance for control, oral contraceptives Surveillance of previously prescribed contraceptive pill documented in this encounter [facility] note* Diagnosis Chronic pelvic pain in female- Primary Unspecified symptom associated with female genital organs documented in this encounter [facility] note* Diagnosis Metabolic syndrome- Primary Dysmetabolic Syndrome X Hypertension, unspecified type Dyslipidemia Other and unspecified hyperlipidemia MICHELLE (obstructive sleep apnea) Obstructive sleep apnea (adult) (pediatric) Hepatitis C test positive Class 2 severe obesity with serious comorbidity and body mass index (BMI) of 39.0 to 39.9 in adult, unspecified obesity type Encounter for vitamin deficiency screening Screening for other and unspecified endocrine, nutritional, metabolic, and immunity disorders Screening cholesterol level Screening for lipoid disorders Screening for thyroid disorder Screening for diabetes mellitus Screening for deficiency anemia Screening for other and unspecified deficiency anemia documented in this encounter [facility] note* Diagnosis Spinal stenosis of cervical region Spinal stenosis in cervical region Coccygodynia Other disorder of coccyx Segmental and somatic dysfunction of sacral region Nonallopathic lesion of sacral region, not elsewhere classified documented in this encounter [facility] note* Diagnosis Spinal stenosis of cervical region Spinal stenosis in cervical region documented in this encounter [facility] note* Diagnosis Slow transit constipation documented in this encounter [facility] note* Diagnosis Pelvic pain in female- Primary Unspecified symptom associated with female genital organs documented in this encounter [facility] note* Diagnosis Metabolic syndrome- Primary Dysmetabolic Syndrome X Class 2 severe obesity with serious comorbidity and body mass index (BMI) of 39.0 to 39.9 in adult, unspecified obesity type documented in this encounter [facility] note* Diagnosis Vulvar pain- Primary Unspecified symptom associated with female genital organs Lumbosacral plexus disorders Lumbosacral plexus lesions Segmental and somatic dysfunction of sacral region Nonallopathic lesion of sacral region, not elsewhere classified Chronic pelvic pain syndrome in female Coccygodynia Other disorder of coccyx documented in this encounter [facility] note* Diagnosis Acne vulgaris- Primary Other acne Encounter for long-term current use of high risk medication Other atopic dermatitis documented in this encounter [facility] note* Diagnosis Lumbosacral plexus disorders Lumbosacral plexus lesions Segmental and somatic dysfunction of sacral region Nonallopathic lesion of sacral region, not elsewhere classified Chronic pelvic pain syndrome in female Vulvar pain Unspecified symptom associated with female genital organs Coccygodynia Other disorder of coccyx [facility] Diagnosis Acne vulgaris- Primary Other acne Encounter for long-term (current) use of high-risk medication Encounter for long-term (current) use of other medications documented in this encounter [facility] note* Diagnosis APPOINTMENT CANCELLED- Primary Chronic pelvic pain in female Unspecified symptom associated with female genital organs Dysmenorrhea Vulvar pain Unspecified symptom associated with female genital organs Preop examination Preoperative examination, unspecified documented in this encounter [facility] note* Diagnosis Anxiety 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- Primary Anxiety disorder in conditions classified elsewhere Chronic pelvic pain in female Unspecified symptom associated with female genital organs Dysmenorrhea Irritable bowel syndrome with constipation Irritable bowel syndrome Chronic pelvic pain in female Unspecified symptom associated with female genital organs Dysmenorrhea Vulvar pain Unspecified symptom associated with female genital organs Preop examination Preoperative examination, unspecified documented in this encounter [facility] note* Diagnosis MICHELLE (obstructive sleep apnea)- Primary Obstructive sleep apnea (adult) (pediatric) Chronic pelvic pain in female Unspecified symptom associated with female genital organs Dysmenorrhea Vulvar pain Unspecified symptom associated with female genital organs Preop examination Preoperative examination, unspecified documented in this encounter [facility] note* Diagnosis MICHELLE (obstructive sleep apnea)- Primary Obstructive sleep apnea (adult) (pediatric) Chronic pelvic pain in female Unspecified symptom associated with female genital organs Dysmenorrhea Vulvar pain Unspecified symptom associated with female genital organs Preop examination Preoperative examination, unspecified [facility] this encounter [facility]* Diagnosis Acne vulgaris- Primary Other acne Encounter for long-term current use of high risk medication Genital warts Condyloma acuminatum Milia Sebaceous cyst documented in this encounter [facility] note* Diagnosis Vulvar irritation- Primary Other specified noninflammatory disorder of vulva and perineum Chronic pelvic pain in female Unspecified symptom associated with female genital organs Dysmenorrhea Vulvar pain Unspecified symptom associated with female genital organs Preop examination Preoperative examination, unspecified documented in this encounter [facility] note* Diagnosis Genital herpes simplex, unspecified site Surveillance for control, oral contraceptives Surveillance of previously prescribed contraceptive pill Chronic pelvic pain in female Unspecified symptom associated with female genital organs Dysmenorrhea Vulvar pain Unspecified symptom associated with female genital organs Preop examination Preoperative examination, unspecified documented in this encounter [facility] note* Diagnosis Central sensitization to pain- Primary Chronic pelvic pain in female Unspecified symptom associated with female genital organs Dysmenorrhea Vulvar pain Unspecified symptom associated with female genital organs Preop examination Preoperative examination, unspecified documented in this encounter [facility] note* Diagnosis Genital warts- Primary Condyloma acuminatum Chronic pruritus Unspecified pruritic disorder Chronic pelvic pain in female Unspecified symptom associated with female genital organs Dysmenorrhea Vulvar pain Unspecified symptom associated with female genital organs Preop examination Preoperative examination, unspecified documented in this encounter [facility] note* Diagnosis MICHELLE (obstructive sleep apnea)- Primary Obstructive sleep apnea (adult) (pediatric) Opioid dependence with withdrawal (HCC) Drug withdrawal RLS (restless legs syndrome) Restless legs syndrome (RLS) Insomnia, unspecified type Chronic pelvic pain in female Unspecified symptom associated with female genital organs Dysmenorrhea Vulvar pain Unspecified symptom associated with female genital organs Preop examination Preoperative examination, unspecified documented in this encounter [facility] note* Diagnosis Cheilitis- Primary Diseases of lips Acne vulgaris Other acne documented in this encounter [facility] note* Diagnosis Pain disorder associated with psychological factors and medical condition- Primary Other pain disorders related to psychological factors Chronic pain syndrome Fibromyalgia Mylagia and myositis, unspecified Chronic bilateral low back pain with bilateral sciatica Chronic pelvic pain in female Unspecified symptom associated with female genital organs Dysmenorrhea Vulvar pain Unspecified symptom associated with female genital organs Preop examination Preoperative examination, unspecified documented in this encounter [facility] note* Diagnosis Acne vulgaris Other acne Encounter for long-term current use of high risk medication Other atopic dermatitis documented in this encounter [facility] note* Diagnosis Educational circumstances- Primary Educational circumstance APPOINTMENT CANCELLED Chronic pelvic pain in female Unspecified symptom associated with female genital organs Dysmenorrhea Vulvar pain Unspecified symptom associated with female genital organs Preop examination Preoperative examination, unspecified documented in this encounter [facility] note* Diagnosis Vulvar lesion- Primary Other specified noninflammatory disorder of vulva and perineum Genital warts Condyloma acuminatum Chronic pelvic pain in female Unspecified symptom associated with female genital organs Dysmenorrhea Vulvar pain Unspecified symptom associated with female genital organs Preop examination Preoperative examination, unspecified documented [facility] this encounter [facility]* Diagnosis Genital warts- Primary Condyloma acuminatum Skin tag of vulva Other specified noninflammatory disorder of vulva and perineum Chronic pelvic pain in female Unspecified symptom associated with female genital organs Dysmenorrhea Vulvar pain Unspecified symptom associated with female genital organs Preop examination Preoperative examination, unspecified documented [facility] this encounter [facility]* Diagnosis Neoplasm of uncertain behavior of skin- Primary Acne vulgaris Other acne Encounter for long-term (current) use of high-risk medication Encounter for long-term (current) use of other medications examination or test, negative result documented in this encounter [facility] note* Diagnosis Encounter to establish care- Primary Other reasons for seeking consultation Migraines Migraine, unspecified, without mention of intractable migraine without mention of status migrainosus Need for pneumococcal vaccine Need for prophylactic vaccination against streptococcus pneumoniae (pneumococcus) Drug abuse and dependence (HCC) Unspecified drug dependence, unspecified Secondary dysmenorrhea- Primary Dysmenorrhea Chronic pelvic pain in female Unspecified symptom associated with female genital organs Encounter for monitoring Suboxone maintenance therapy Encounter for therapeutic drug monitoring Acute postoperative pain Other acute postoperative pain Buprenorphine dependence (HCC) Chronic pelvic pain in female Unspecified symptom associated with female genital organs Dysmenorrhea Vulvar pain Unspecified symptom associated with female genital organs Preop examination Preoperative examination, unspecified documented in this encounter [facility] note* Diagnosis Encounter to establish care- Primary Other reasons for seeking consultation Migraines Migraine, unspecified, without mention of intractable migraine without mention of status migrainosus Need for pneumococcal vaccine Need for prophylactic vaccination against streptococcus pneumoniae (pneumococcus) Drug abuse and dependence (HCC) Unspecified drug dependence, unspecified Pre-op evaluation- Primary Preoperative examination, unspecified MICHELLE (obstructive sleep apnea) Obstructive sleep apnea (adult) (pediatric) Tobacco use Tobacco use disorder Other chronic pain Hyperlipidemia, unspecified hyperlipidemia type Opioid dependence with withdrawal (HCC) Drug withdrawal Obesity (BMI 30-39.9) Obesity, unspecified Insulin resistance Dysmetabolic Syndrome X Educational circumstances- Primary Educational circumstance Chronic pelvic pain in female Unspecified symptom associated with female genital organs Dysmenorrhea Vulvar pain Unspecified symptom associated with female genital organs Preop examination Preoperative examination, unspecified * Assessment & Plan Note - Che Caballero PA-C - 11/06/2023 1:41 PM EDT Associated Problem(s): Insulin resistance Assessment: follows with [employer], taking metformin * Assessment & Plan Note - Che Caballero PA-C - 11/06/2023 1:40 PM EDT Associated Problem(s): Obesity (BMI 30-39.9) Assessment: BMI 37.37, taking tirzepatide * Assessment & Plan Note - Che Caballero PA-C - 11/06/2023 1:39 PM EDT Associated Problem(s): Opioid dependence with withdrawal (HCC) Assessment: taking Zubsolv * Assessment & Plan Note - Che Caballero PA-C - 11/06/2023 1:38 PM EDT Associated Problem(s): HLD (hyperlipidemia) Assessment: taking zetia, PCP following * Assessment & Plan Note - Che Caballero PA-C - 11/06/2023 1:38 PM EDT Associated Problem(s): Other chronic pain Assessment: follows with online suboxone provider, taking Zubsolv * Assessment & Plan Note - Che Caballero PA-C - 11/06/2023 1:37 PM EDT Associated Problem(s): Tobacco use Assessment: smoking and vaping * Assessment & Plan Note - Che Caballero PA-C - 11/06/2023 1:37 PM EDT Associated Problem(s): MICHELLE (obstructive sleep apnea) Assessment: can not tolerate CPAP documented in this encounter [facility] note* Diagnosis Encounter to establish care- Primary Other reasons for seeking consultation Migraines Migraine, unspecified, without mention of intractable migraine without mention of status migrainosus Need for pneumococcal vaccine Need for prophylactic vaccination against streptococcus pneumoniae (pneumococcus) Drug abuse and dependence (HCC) Unspecified drug dependence, unspecified Pre-op evaluation- Primary Preoperative examination, unspecified MICHELLE (obstructive sleep apnea) Obstructive sleep apnea (adult) (pediatric) Tobacco use Tobacco use disorder Other chronic pain Hyperlipidemia, unspecified hyperlipidemia type Opioid dependence with withdrawal (HCC) Drug withdrawal Obesity (BMI 30-39.9) Obesity, unspecified Insulin resistance Dysmetabolic Syndrome X Educational circumstances- Primary Educational circumstance Chronic pelvic pain in female Unspecified symptom associated with female genital organs Dysmenorrhea Vulvar pain Unspecified symptom associated with female genital organs Preop examination Preoperative examination, unspecified documented in this encounter [facility] note* Diagnosis Acne vulgaris- Primary Other acne Encounter for long-term (current) use of high-risk medication Encounter for long-term (current) use of other medications documented in this encounter [facility] note* Diagnosis Encounter to establish care- Primary Other reasons for seeking consultation Migraines Migraine, unspecified, without mention of intractable migraine without mention of status migrainosus Need for pneumococcal vaccine Need for prophylactic vaccination against streptococcus pneumoniae (pneumococcus) Drug abuse and dependence (HCC) Unspecified drug dependence, unspecified Dysmenorrhea Vulvar pain Unspecified symptom associated with female genital organs Chronic pelvic pain in female Unspecified symptom associated with female genital organs Pre-op evaluation- Primary Preoperative examination, unspecified MICHELLE (obstructive sleep apnea) Obstructive sleep apnea (adult) (pediatric) Tobacco use Tobacco use disorder Other chronic pain Hyperlipidemia, unspecified hyperlipidemia type Opioid dependence with withdrawal (HCC) Drug withdrawal Obesity (BMI 30-39.9) Obesity, unspecified Insulin resistance Dysmetabolic Syndrome X documented in this encounter [facility] note* Diagnosis Encounter to establish care- Primary Other reasons for seeking consultation Migraines Migraine, unspecified, without mention of intractable migraine without mention of status migrainosus Need for pneumococcal vaccine Need for prophylactic vaccination against streptococcus pneumoniae (pneumococcus) Drug abuse and dependence (HCC) Unspecified drug dependence, unspecified Dysphagia, unspecified type Pre-op evaluation- Primary Preoperative examination, unspecified MICHELLE (obstructive sleep apnea) Obstructive sleep apnea (adult) (pediatric) Tobacco use Tobacco use disorder Other chronic pain Hyperlipidemia, unspecified hyperlipidemia type Opioid dependence with withdrawal (HCC) Drug withdrawal Obesity (BMI 30-39.9) Obesity, unspecified Insulin resistance Dysmetabolic Syndrome X documented in this encounter [facility] note* Diagnosis Encounter to establish care- Primary Other reasons for seeking consultation Migraines Migraine, unspecified, without mention of intractable migraine without mention of status migrainosus Need for pneumococcal vaccine Need for prophylactic vaccination against streptococcus pneumoniae (pneumococcus) Drug abuse and dependence (HCC) Unspecified drug dependence, unspecified Chronic pain syndrome Pre-op evaluation- Primary Preoperative examination, unspecified MICHELLE (obstructive sleep apnea) Obstructive sleep apnea (adult) (pediatric) Tobacco use Tobacco use disorder Other chronic pain Hyperlipidemia, unspecified hyperlipidemia type Opioid dependence with withdrawal (HCC) Drug withdrawal Obesity (BMI 30-39.9) Obesity, unspecified Insulin resistance Dysmetabolic Syndrome X documented in this encounter [facility] note* Diagnosis Encounter for long-term (current) use of high-risk medication Encounter for long-term (current) use of other medications Acne vulgaris Other acne documented in this encounter [facility] note* Diagnosis Encounter to establish care- Primary Other reasons for seeking consultation Migraines Migraine, unspecified, without mention of intractable migraine without mention of status migrainosus Need for pneumococcal vaccine Need for prophylactic vaccination against streptococcus pneumoniae (pneumococcus) Drug abuse and dependence (HCC) Unspecified drug dependence, unspecified Pre-op evaluation- Primary Preoperative examination, unspecified MICHELLE (obstructive sleep apnea) Obstructive sleep apnea (adult) (pediatric) Tobacco use Tobacco use disorder Other chronic pain Hyperlipidemia, unspecified hyperlipidemia type Opioid dependence with withdrawal (HCC) Drug withdrawal Obesity (BMI 30-39.9) Obesity, unspecified Insulin resistance Dysmetabolic Syndrome X Post-operative state- Primary Other postprocedural status documented in this encounter [facility]* Diagnosis Genital warts- Primary Condyloma acuminatum Vulvar itching Pruritus of genital organs Chronic pelvic pain in female Unspecified symptom associated with female genital organs Dysmenorrhea Vulvar pain Unspecified symptom associated with female genital organs Preop examination Preoperative examination, unspecified documented [facility] this encounter [facility]* Diagnosis Acne vulgaris Other acne Encounter for long-term (current) use of high-risk medication Encounter for long-term (current) use of other medications documented in this encounter [facility] note* Diagnosis Acne vulgaris Other acne Encounter for long-term (current) use of high-risk medication Encounter for long-term (current) use of other medications documented in this encounter [facility] note* Diagnosis Acne vulgaris- Primary Other acne Encounter for long-term (current) use of high-risk medication Encounter for long-term (current) use of other medications documented in this encounter [facility] note* Diagnosis Acne vulgaris- Primary Other acne Other atopic dermatitis documented in this encounter [facility] note* Diagnosis Encounter to establish care- Primary Other reasons for seeking consultation Migraines Migraine, unspecified, without mention of intractable migraine without mention of status migrainosus Need for pneumococcal vaccine Need for prophylactic vaccination against streptococcus pneumoniae (pneumococcus) Drug abuse and dependence (HCC) Unspecified drug dependence, unspecified Pre-op evaluation- Primary Preoperative examination, unspecified MICHELLE (obstructive sleep apnea) Obstructive sleep apnea (adult) (pediatric) Tobacco use Tobacco use disorder Other chronic pain Hyperlipidemia, unspecified hyperlipidemia type Opioid dependence with withdrawal (HCC) Drug withdrawal Obesity (BMI 30-39.9) Obesity, unspecified Insulin resistance Dysmetabolic Syndrome X Encounter for gynecological examination (general) (routine) without abnormal findings- Primary Screening for malignant neoplasm of cervix Screening for malignant neoplasm of the cervix Encounter for screening for human papillomavirus (HPV) Special screening examination for human papillomavirus (HPV) Surveillance for control, oral contraceptives Surveillance of previously prescribed contraceptive pill Vaginal irritation Unspecified noninflammatory disorder of vagina Urethral irritation Unspecified disorder of urethra and urinary tract [facility] Diagnosis Encounter to establish care- Primary Other reasons for seeking consultation Migraines Migraine, unspecified, without mention of intractable migraine without mention of status migrainosus Need for pneumococcal vaccine Need for prophylactic vaccination against streptococcus pneumoniae (pneumococcus) Drug abuse and dependence (HCC) Unspecified drug dependence, unspecified Pre-op evaluation- Primary Preoperative examination, unspecified MICHELLE (obstructive sleep apnea) Obstructive sleep apnea (adult) (pediatric) Tobacco use Tobacco use disorder Other chronic pain Hyperlipidemia, unspecified hyperlipidemia type Opioid dependence with withdrawal (HCC) Drug withdrawal Obesity (BMI 30-39.9) Obesity, unspecified Insulin resistance Dysmetabolic Syndrome X Genital warts Condyloma acuminatum Chronic pruritus Unspecified pruritic disorder documented in this encounter [facility] note* Diagnosis Pain in both knees, unspecified chronicity documented in this encounter [facility]* Diagnosis Cervical pain Cervicalgia documented in this encounter [facility] Diagnosis Right shoulder pain, unspecified chronicity Pain Generalized pain [facility] Diagnosis Perineal pain in female- Primary Unspecified symptom associated with female genital organs documented in this encounter [facility]* Diagnosis Pain Generalized pain documented in this encounter [facility] Narrative No data available for this section [facility] Discharge instructions No data available for this section [facility] Progress note No data available for this section [facility] Reason for referral (narrative)* Diagnostic Procedure Only (Routine) - Pending Review Specialty Diagnoses / Procedures Referred By Meredith trejo Referred To Contact XR IMAGING Diagnoses Constipation, unspecified constipation type Procedures XR ABDOMEN 2V ROUTINE SUPINE W UPRIGHT/DECUB/CTL RADIOLOGIC EXAM ABDOMEN 2 [place] [address] [place] [address] Xr Imaging Referral ID Status Reason Start Date Expiration Date Visits Requested Visits Authorized [id number] Pending Review Auto-Generat ed Referral 06/15/2021 07/15/2022 1 1 [facility] for referral (narrative)* Diagnostic Procedure Only (Routine) - Closed Specialty Diagnoses / Procedures Referred By Contac t Referred To Contact XR IMAGING Diagnoses Constipation, unspecified constipation type Procedures XR ABDOMEN 2V ROUTINE SUPINE W UPRIGHT/DECUB/CTL RADIOLOGIC EXAM ABDOMEN 2 [place] [address] [place] [address] Xr Imaging Referral ID Status Reason Start Date Expiration Date V isits Requested Visits Authorized [id number] Closed Auto-Generate d Referral 06/15/2021 07/15/2022 1 1 [facility] for referral (narrative)* Diagnostic Procedure Only (Routine) - Pending Review Specialty Diagnoses / Procedures Referred By Contac t Referred To Contact XR IMAGING Diagnoses Chronic pain syndrome Procedures XR KNEE LIMITED 2V AP/LAT RIGHT RADIOLOGIC EXAMINATION KNEE 1/2 VIEWS Bebe Mckenna MD [address] [place] [address] Xr Imaging Referral ID Status Reason Start Date Expiration Date Visits Requested Visits Authorized [id number] Pending Review Auto-Generat ed Referral 2 04/02/2023 1 1 * Diagnostic Procedure Only (Routine) - Pending Review Specialty Diagnoses / Procedures Referred By Contac t Referred To Contact XR IMAGING Diagnoses Chronic pain syndrome Procedures XR SHOULDER [id number] AP/TRUE AP RIGHT RADEX SHOULDER COMPLETE MINIMUM 2 VIEWS Bebe Mckenna MD [address] [place] [address] Xr Imaging Referral ID Status Reason Start Date Expiration Date Visits Requested Visits Authorized [id number] Pending Review Auto-Generat ed Referral 2 04/02/2023 1 1 * Diagnostic Procedure Only (Routine) - Pending Review Specialty Diagnoses / Procedures Referred By Contac t Referred To Contact XR IMAGING Diagnoses Chronic pain syndrome Procedures XR SHOULDER LIMITED 2V AP/TRUE AP LEFT RADEX SHOULDER COMPLETE MINIMUM 2 VIEWS Bebe Mckenna MD [address] [place] [address] Xr Imaging Referral ID Status Reason Start Date Expiration Date Visits Requested Visits Authorized [id number] Pending Review Auto-Generat ed Referral 2 04/02/2023 1 1 * Diagnostic Procedure Only (Routine) - Pending Review Specialty Diagnoses / Procedures Referred By Contac t Referred To Contact XR IMAGING Diagnoses Chronic pain syndrome Procedures XR LUMBAR LIMITED 2V AP/LAT RADEX SPINE LUMBOSACRAL 2/3 VIEWS Bebe Mckenna MD [address] [place] [address] Xr Imaging Referral ID Status Reason Start Date Expiration Date Visits Requested Visits Authorized [id number] Pending Review Auto-Generat ed Referral 2 04/02/2023 1 1 * Diagnostic Procedure Only (Routine) - Pending Review Specialty Diagnoses / Procedures Referred By Contac t Referred To Contact XR IMAGING Diagnoses Chronic pain syndrome Procedures XR CERV GENERAL 2V AP/LAT RADEX SPINE CERVICAL 2 OR 3 VIEWS Bebe Mckenna MD [address] [place] [address] Xr Imaging Referral ID Status Reason Start Date Expiration Date Visits Requested Visits Authorized [id number] Pending Review Auto-Generat ed Referral 2 04/02/2023 1 1 [facility] for referral (narrative)* Diagnostic Procedure Only (Routine) - Pending Review Specialty Diagnoses / Procedures Referred By Contac t Referred To Contact XR IMAGING Diagnoses Slow transit constipation Procedures XR ABDOMEN 3V KUB W/OBLIQUES RADIOLOGIC EXAM ABDOMEN 3+ [place] [address] [place] [address] Xr Imaging Referral ID Status Reason Start Date Expiration Date Visits Requested Visits Authorized [id number] Pending Review Auto-Generat ed Referral 09/22/2022 10/22/2023 1 1 [facility] for referral (narrative)* Diagnostic Procedure Only (Routine) - Closed Specialty Diagnoses / Procedures Referred By Contac t Referred To Contact XR IMAGING Diagnoses Spinal stenosis of cervical region Coccygodynia Segmental and somatic dysfunction of sacral region Procedures XR SACRUM/COCCYX 3V AP/LAT RADEX SACRUM & COCCYX MINIMUM 2 VIEWS Alena Green MD [address] [place] [address] [place] [address] Referral ID Status Reason Start Date Expiration Date V isits Requested Visits Authorized [id number] Closed Auto-Generate d Referral 07/13/2022 08/12/2023 1 1 [facility] for referral (narrative)* Diagnostic Procedure Only (Routine) - Closed Specialty Diagnoses / Procedures Referred By Contac t Referred To Contact XR IMAGING Diagnoses Slow transit constipation Procedures XR ABDOMEN 3V KUB W/OBLIQUES RADIOLOGIC EXAM ABDOMEN 3+ [place] [address] [place] [address] [place] [address] Referral ID Status Reason Start Date Expiration Date V isits Requested Visits Authorized [id number] Closed Auto-Generate d Referral 09/22/2022 10/22/2023 1 1 [facility] for referral (narrative)* Diagnostic Procedure Only (Routine) - New Request Specialty Diagnoses / Procedures Referred By Contac t Referred To Contact US IMAGING Diagnoses Secondary dysmenorrhea Procedures US FEMALE PELVIS TRANSVAG US TRANSVAGINAL Meme Vergara MD [address] [place] [address] [place] [address] Referral ID Status Reason Start Date Expiration Date Visits Requested Visits Authorized [id number] New Request Auto-Generat ed Referral 10/23/2023 11/21/2024 1 1 [facility] for referral (narrative)* Outpatient Procedure (Routine) - Closed Specialty Diagnoses / Procedures Referred By Contac t Referred To Contact [facility] Diagnoses Dysphagia, unspecified type Procedures EGD DIAGNOSTIC ESOPHAGOGASTRODUODENOSC [place] [address] [place] [address] [facility] [address] [place] [address] Referral ID Status Reason Start Date Expiration Date V isits Requested Visits Authorized [id number] Closed Auto-Generate d Referral 08/23/2022 08/24/2023 1 1 [facility] for referral (narrative)* Diagnostic Procedure Only (Routine) - Closed Specialty Diagnoses / Procedures Referred By Contac t Referred To Contact XR IMAGING Diagnoses Chronic pain syndrome Procedures XR KNEE LIMITED 2V AP/LAT RIGHT RADIOLOGIC EXAMINATION KNEE 1/2 VIEWS Bebe Mckenna MD [address] [place] [address] Xr Imaging [id number] Referral ID Status Reason Start Date Expiration Date V isits Requested Visits Authorized [id number] Closed Auto-Generate d Referral 03/03/2022 04/02/2023 1 1 * Diagnostic Procedure Only (Routine) - Closed Specialty Diagnoses / Procedures Referred By Contac t Referred To Contact XR IMAGING Diagnoses Chronic pain syndrome Procedures XR SHOULDER [id number] AP/TRUE AP RIGHT RADEX SHOULDER COMPLETE MINIMUM 2 VIEWS Bebe Mckenna MD [address] [place] [address] [place] [address] Referral ID Status Reason Start Date Expiration Date V isits Requested Visits Authorized [id number] Closed Auto-Generate d Referral 03/03/2022 04/02/2023 1 1 * Diagnostic Procedure Only (Routine) - Closed Specialty Diagnoses / Procedures Referred By Contac t Referred To Contact XR IMAGING Diagnoses Chronic pain syndrome Procedures XR SHOULDER LIMITED 2V AP/TRUE AP LEFT RADEX SHOULDER COMPLETE MINIMUM 2 VIEWS Bebe Mckenna MD [address] [facility] [place] [address] [place] [address] Referral ID Status Reason Start Date Expiration Date V isits Requested Visits Authorized [id number] Closed Auto-Generate d Referral 03/03/2022 04/02/2023 1 1 * Diagnostic Procedure Only (Routine) - Closed Specialty Diagnoses / Procedures Referred By Contac t Referred To Contact XR IMAGING Diagnoses Chronic pain syndrome Procedures XR LUMBAR LIMITED 2V AP/LAT RADEX SPINE LUMBOSACRAL 2/3 VIEWS Bebe Mckenna MD [address] [place] [address] [place] [address] Referral ID Status Reason Start Date Expiration Date V isits Requested Visits Authorized [id number] Closed Auto-Generate d Referral 03/03/2022 04/02/2023 1 1 * Diagnostic Procedure Only (Routine) - Closed Specialty Diagnoses / Procedures Referred By Contac t Referred To Contact XR IMAGING Diagnoses Chronic pain syndrome Procedures XR CERV GENERAL 2V AP/LAT RADEX SPINE CERVICAL 2 OR 3 VIEWS Bebe Mckenna MD [address] [place] [address] [place] [address] Referral ID Status Reason Start Date Expiration Date V isits Requested Visits Authorized [id number] Closed Auto-Generate d Referral 03/03/2022 04/02/2023 1 1 [facility] for visit Narrative* Diagnostic Procedure Only (Routine) - Closed Specialty Diagnoses / Procedures Referred By Contac t Referred To Contact XR IMAGING Diagnoses Constipation, unspecified constipation type Procedures XR ABDOMEN 2V ROUTINE SUPINE W UPRIGHT/DECUB/CTL RADIOLOGIC EXAM ABDOMEN 2 [place] [address] [place] [address] Xr Imaging Referral ID Status Reason Start Date Expiration Date V isits Requested Visits Authorized [id number] Closed Auto-Generate d Referral 06/15/2021 07/15/2022 1 1 [facility] for visit Narrative* Diagnostic Procedure Only (Routine) - Closed Specialty Diagnoses / Procedures Referred By Contac t Referred To Contact XR IMAGING Diagnoses Spinal stenosis of cervical region Coccygodynia Segmental and somatic dysfunction of sacral region Procedures XR SACRUM/COCCYX 3V AP/LAT RADEX SACRUM & COCCYX MINIMUM 2 VIEWS Alena Green MD [address] [place] [id number] Xr Imaging [place] [address] Referral ID Status Reason Start Date Expiration Date V isits Requested Visits Authorized [id number] Closed Auto-Generate d Referral 07/13/2022 08/12/2023 1 1 [facility] for visit Narrative* Diagnostic Procedure Only (Routine) - Closed Specialty Diagnoses / Procedures Referred By Contac t Referred To Contact XR IMAGING Diagnoses Slow transit constipation Procedures XR ABDOMEN 3V KUB W/OBLIQUES RADIOLOGIC EXAM ABDOMEN 3+ [place] [address] [place] [address] Xr Imaging [id number] Referral ID Status Reason Start Date Expiration Date V isits Requested Visits Authorized [id number] Closed Auto-Generate d Referral 09/22/2022 10/22/2023 1 1 [facility] for visit Narrative* Diagnostic Procedure Only (Routine) - Closed Specialty Diagnoses / Procedures Referred By Contac t Referred To Contact MR IMAGING Diagnoses Lumbosacral plexus disorders Segmental and somatic dysfunction of sacral region Chronic pelvic pain syndrome in female Vulvar pain Coccygodynia Procedures MRI SACRAL PLEXUS WO/W IVCON MRI PELVIS W/O & W/CONTRAST MATERIAL Meme Vergara MD [address] [place] [address] Mr Imaging [id number] Referral ID Status Reason Start Date Expiration Date V isits Requested Visits Authorized [id number] Closed Auto-Generate d Referral 03/23/2023 05/22/2023 1 1 [facility] for visit Narrative* Outpatient Procedure (Routine) - Closed Specialty Diagnoses / Procedures Referred By Contac t Referred To Contact [facility] Diagnoses Dysphagia, unspecified type Procedures EGD DIAGNOSTIC ESOPHAGOGASTRODUODENOSC [place] [address] [place] [address] [facility] [address] [place], [place] [id number] Referral ID Status Reason Start Date Expiration Date V isits Requested Visits Authorized [id number] Closed Auto-Generate d Referral 08/23/2022 08/24/2023 1 1 [facility] for visit Narrative* Diagnostic Procedure Only (Routine) - Closed Specialty Diagnoses / Procedures Referred By Contac t Referred To Contact XR IMAGING Diagnoses Chronic pain syndrome Procedures XR KNEE LIMITED 2V AP/LAT RIGHT RADIOLOGIC EXAMINATION KNEE 1/2 VIEWS Bebe Mckenna MD [address] [facility] [place] [address] Xr Imaging [id number] Referral ID Status Reason Start Date Expiration Date V isits Requested Visits Authorized [id number] Closed Auto-Generate d Referral 03/03/2022 04/02/2023 1 1 [facility] for visit Narrative* Imaging (Routine) - Pending Review Specialty Diagnoses / Procedures Referred By Contac t Referred To Contact Radiology Diagnoses Cervical pain Procedures FLUORO FOR SURGICAL PROCEDURES Maury Aldana MD [address] [facility] [address] [place] [address] Phone: tel: fax: Referral ID Status Reason Start Date Expiration Date V isits Requested Visits Authorized [id number] Pending Review 10/31/2024 10/31/2025 1 [facility] Imaging (Routine) - Pending Review Specialty Diagnoses / Procedures Referred By Meredith t Referred To Contact Radiology Diagnoses Pain Procedures FLUORO FOR SURGICAL PROCEDURES Maury Aldana MD [address] [facility] [address] [place] [address] Phone: tel: fax: Referral ID Status Reason Start Date Expiration Date V isits Requested Visits Authorized [id number] Pending Review 11/21/2024 11/21/2025 1 1 [facility] Summary Purpose Family History No Family History Records FoundNo Family History Records FoundNo Family History Records FoundNo Family History Records FoundNo Family History Records FoundNo Family History Records FoundNo Family History Records Found No data available for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 Referral ID Status Reason Start Date Expiration Date Visits Re quested Visits Authorized [id number] Closed 10/03/2024 03/31/2025 1 1 Reason Comments Groin Pain NJECT NERVE BLOCK PU DENDAL Source Comments (unrecognize d section and content) In the event this informatio n is protected by the Federal Confidentiality of Alcohol and Drug Abuse Patient Records regulations: The Federal rules restrict any use of the information to criminally investigate or prosecute any alcohol or drug abuse patient.[facility] Center[facility] the event this information is protected by the Federal Confidentiality of Alcohol and Drug Abuse Patient Records regulations: The Federal rules restrict any use of the information to criminally investigate or prosecute any alcohol or drug abuse patient.[facility] CenterIn the event this information is protected by the Federal Confidentiality of Alcohol and Drug Abuse Patient Records regulations: The Federal rules restrict any use of the information to criminally investigate or prosecute any alcohol or drug abuse patient.[facility] CenterIn the event this information is protected by the Federal Confidentiality of Alcohol and Drug Abuse Patient Records regulations: The Federal rules restrict any use of the information to criminally investigate or prosecute any alcohol or drug abuse patient.[facility] CenterIn the event this information is protected by the Federal Confidentiality of Alcohol and Drug Abuse Patient Records regulations: The Federal rules restrict any use of the information to criminally investigate or prosecute any alcohol or drug abuse patient.[facility] CenterIn the event this information is protected by the Federal Confidentiality of Alcohol and Drug Abuse Patient Records regulations: The Federal rules restrict any use of the information to criminally investigate or prosecute any alcohol or drug abuse patient.[facility] CenterIn the event this information is protected by the Federal Confidentiality of Alcohol and Drug Abuse Patient Records regulations: The Federal rules restrict any use of the information to criminally investigate or prosecute any alcohol or drug abuse patient.[facility] CenterIn the event this information is protected by the Federal Confidentiality of Alcohol and Drug Abuse Patient Records regulations: The Federal rules restrict any use of the information to criminally investigate or prosecute any alcohol or drug abuse patient.[facility] CenterIn the event this information is protected by the Federal Confidentiality of Alcohol and Drug Abuse Patient Records regulations: The Federal rules restrict any use of the information to criminally investigate or prosecute any alcohol or drug abuse patient.[facility] CenterIn the event this information is protected by the Federal Confidentiality of Alcohol and Drug Abuse Patient Records regulations: The Federal rules restrict any use of the information to criminally investigate or prosecute any alcohol or drug abuse patient.[facility] CenterIn the event this information is protected by the Federal Confidentiality of Alcohol and Drug Abuse Patient Records regulations: The Federal rules restrict any use of the information to criminally investigate or prosecute any alcohol or drug abuse patient.[facility] CenterIn the event this information is protected by the Federal Confidentiality of Alcohol and Drug Abuse Patient Records regulations: The Federal rules restrict any use of the information to criminally investigate or prosecute any alcohol or drug abuse patient.[facility] CenterIn the event this information is protected by the Federal Confidentiality of Alcohol and Drug Abuse Patient Records regulations: The Federal rules restrict any use of the information to criminally investigate or prosecute any alcohol or drug abuse patient.[facility] CenterIn the event this information is protected by the Federal Confidentiality of Alcohol and Drug Abuse Patient Records regulations: The Federal rules restrict any use of the information to criminally investigate or prosecute any alcohol or drug abuse patient.[facility] CenterIn the event this information is protected by the Federal Confidentiality of Alcohol and Drug Abuse Patient Records regulations: The Federal rules restrict any use of the information to criminally investigate or prosecute any alcohol or drug abuse patient.[facility] CenterIn the event this information is protected by the Federal Confidentiality of Alcohol and Drug Abuse Patient Records regulations: The Federal rules restrict any use of the information to criminally investigate or prosecute any alcohol or drug abuse patient.[facility] CenterIn the event this information is protected by the Federal Confidentiality of Alcohol and Drug Abuse Patient Records regulations: The Federal rules restrict any use of the information to criminally investigate or prosecute any alcohol or drug abuse patient.[facility] CenterIn the event this information is protected by the Federal Confidentiality of Alcohol and Drug Abuse Patient Records regulations: The Federal rules restrict any use of the information to criminally investigate or prosecute any alcohol or drug abuse patient.[facility] CenterIn the event this information is protected by the Federal Confidentiality of Alcohol and Drug Abuse Patient Records regulations: The Federal rules restrict any use of the information to criminally investigate or prosecute any alcohol or drug abuse patient.[facility] CenterIn the event this information is protected by the Federal Confidentiality of Alcohol and Drug Abuse Patient Records regulations: The Federal rules restrict any use of the information to criminally investigate or prosecute any alcohol or drug abuse patient.[facility] CenterIn the event this information is protected by the Federal Confidentiality of Alcohol and Drug Abuse Patient Records regulations: The Federal rules restrict any use of the information to criminally investigate or prosecute any alcohol or drug abuse patient.[facility] CenterIn the event this information is protected by the Federal Confidentiality of Alcohol and Drug Abuse Patient Records regulations: The Federal rules restrict any use of the information to criminally investigate or prosecute any alcohol or drug abuse patient.[facility] CenterIn the event this information is protected by the Federal Confidentiality of Alcohol and Drug Abuse Patient Records regulations: The Federal rules restrict any use of the information to criminally investigate or prosecute any alcohol or drug abuse patient.[facility] CenterIn the event this information is protected by the Federal Confidentiality of Alcohol and Drug Abuse Patient Records regulations: The Federal rules restrict any use of the information to criminally investigate or prosecute any alcohol or drug abuse patient.[facility] CenterIn the event this information is protected by the Federal Confidentiality of Alcohol and Drug Abuse Patient Records regulations: The Federal rules restrict any use of the information to criminally investigate or prosecute any alcohol or drug abuse patient.[facility] CenterIn the event this information is protected by the Federal Confidentiality of Alcohol and Drug Abuse Patient Records regulations: The Federal rules restrict any use of the information to criminally investigate or prosecute any alcohol or drug abuse patient.[facility] CenterIn the event this information is protected by the Federal Confidentiality of Alcohol and Drug Abuse Patient Records regulations: The Federal rules restrict any use of the information to criminally investigate or prosecute any alcohol or drug abuse patient.[facility] CenterIn the event this information is protected by the Federal Confidentiality of Alcohol and Drug Abuse Patient Records regulations: The Federal rules restrict any use of the information to criminally investigate or prosecute any alcohol or drug abuse patient.[facility] CenterIn the event this information is protected by the Federal Confidentiality of Alcohol and Drug Abuse Patient Records regulations: The Federal rules restrict any use of the information to criminally investigate or prosecute any alcohol or drug abuse patient.[facility] CenterIn the event this information is protected by the Federal Confidentiality of Alcohol and Drug Abuse Patient Records regulations: The Federal rules restrict any use of the information to criminally investigate or prosecute any alcohol or drug abuse patient.[facility] CenterIn the event this information is protected by the Federal Confidentiality of Alcohol and Drug Abuse Patient Records regulations: The Federal rules restrict any use of the information to criminally investigate or prosecute any alcohol or drug abuse patient.[facility] CenterIn the event this information is protected by the Federal Confidentiality of Alcohol and Drug Abuse Patient Records regulations: The Federal rules restrict any use of the information to criminally investigate or prosecute any alcohol or drug abuse patient.[facility] CenterIn the event this information is protected by the Federal Confidentiality of Alcohol and Drug Abuse Patient Records regulations: The Federal rules restrict any use of the information to criminally investigate or prosecute any alcohol or drug abuse patient.[facility] CenterIn the event this information is protected by the Federal Confidentiality of Alcohol and Drug Abuse Patient Records regulations: The Federal rules restrict any use of the information to criminally investigate or prosecute any alcohol or drug abuse patient.[facility] CenterIn the event this information is protected by the Federal Confidentiality of Alcohol and Drug Abuse Patient Records regulations: The Federal rules restrict any use of the information to criminally investigate or prosecute any alcohol or drug abuse patient.[facility] CenterIn the event this information is protected by the Federal Confidentiality of Alcohol and Drug Abuse Patient Records regulations: The Federal rules restrict any use of the information to criminally investigate or prosecute any alcohol or drug abuse patient.[facility] CenterIn the event this information is protected by the Federal Confidentiality of Alcohol and Drug Abuse Patient Records regulations: The Federal rules restrict any use of the information to criminally investigate or prosecute any alcohol or drug abuse patient.[facility] CenterIn the event this information is protected by the Federal Confidentiality of Alcohol and Drug Abuse Patient Records regulations: The Federal rules restrict any use of the information to criminally investigate or prosecute any alcohol or drug abuse patient.[facility] CenterIn the event this information is protected by the Federal Confidentiality of Alcohol and Drug Abuse Patient Records regulations: The Federal rules restrict any use of the information to criminally investigate or prosecute any alcohol or drug abuse patient.[facility] CenterIn the event this information is protected by the Federal Confidentiality of Alcohol and Drug Abuse Patient Records regulations: The Federal rules restrict any use of the information to criminally investigate or prosecute any alcohol or drug abuse patient.[facility] CenterIn the event this information is protected by the Federal Confidentiality of Alcohol and Drug Abuse Patient Records regulations: The Federal rules restrict any use of the information to criminally investigate or prosecute any alcohol or drug abuse patient.[facility] CenterIn the event this information is protected by the Federal Confidentiality of Alcohol and Drug Abuse Patient Records regulations: The Federal rules restrict any use of the information to criminally investigate or prosecute any alcohol or drug abuse patient.[facility] CenterIn the event this information is protected by the Federal Confidentiality of Alcohol and Drug Abuse Patient Records regulations: The Federal rules restrict any use of the information to criminally investigate or prosecute any alcohol or drug abuse patient.[facility] CenterIn the event this information is protected by the Federal Confidentiality of Alcohol and Drug Abuse Patient Records regulations: The Federal rules restrict any use of the information to criminally investigate or prosecute any alcohol or drug abuse patient.[facility] CenterIn the event this information is protected by the Federal Confidentiality of Alcohol and Drug Abuse Patient Records regulations: The Federal rules restrict any use of the information to criminally investigate or prosecute any alcohol or drug abuse patient.[facility] CenterIn the event this information is protected by the Federal Confidentiality of Alcohol and Drug Abuse Patient Records regulations: The Federal rules restrict any use of the information to criminally investigate or prosecute any alcohol or drug abuse patient.[facility] CenterIn the event this information is protected by the Federal Confidentiality of Alcohol and Drug Abuse Patient Records regulations: The Federal rules restrict any use of the information to criminally investigate or prosecute any alcohol or drug abuse patient.[facility] CenterIn the event this information is protected by the Federal Confidentiality of Alcohol and Drug Abuse Patient Records regulations: The Federal rules restrict any use of the information to criminally investigate or prosecute any alcohol or drug abuse patient.[facility] CenterIn the event this information is protected by the Federal Confidentiality of Alcohol and Drug Abuse Patient Records regulations: The Federal rules restrict any use of the information to criminally investigate or prosecute any alcohol or drug abuse patient.[facility] CenterIn the event this information is protected by the Federal Confidentiality of Alcohol and Drug Abuse Patient Records regulations: The Federal rules restrict any use of the information to criminally investigate or prosecute any alcohol or drug abuse patient.[facility] CenterIn the event this information is protected by the Federal Confidentiality of Alcohol and Drug Abuse Patient Records regulations: The Federal rules restrict any use of the information to criminally investigate or prosecute any alcohol or drug abuse patient.[facility] CenterIn the event this information is protected by the Federal Confidentiality of Alcohol and Drug Abuse Patient Records regulations: The Federal rules restrict any use of the information to criminally investigate or prosecute any alcohol or drug abuse patient.[facility] CenterIn the event this information is protected by the Federal Confidentiality of Alcohol and Drug Abuse Patient Records regulations: The Federal rules restrict any use of the information to criminally investigate or prosecute any alcohol or drug abuse patient.[facility] CenterIn the event this information is protected by the Federal Confidentiality of Alcohol and Drug Abuse Patient Records regulations: The Federal rules restrict any use of the information to criminally investigate or prosecute any alcohol or drug abuse patient.[facility] CenterIn the event this information is protected by the Federal Confidentiality of Alcohol and Drug Abuse Patient Records regulations: The Federal rules restrict any use of the information to criminally investigate or prosecute any alcohol or drug abuse patient.[facility] CenterIn the event this information is protected by the Federal Confidentiality of Alcohol and Drug Abuse Patient Records regulations: The Federal rules restrict any use of the information to criminally investigate or prosecute any alcohol or drug abuse patient.[facility] CenterIn the event this information is protected by the Federal Confidentiality of Alcohol and Drug Abuse Patient Records regulations: The Federal rules restrict any use of the information to criminally investigate or prosecute any alcohol or drug abuse patient.[facility] CenterIn the event this information is protected by the Federal Confidentiality of Alcohol and Drug Abuse Patient Records regulations: The Federal rules restrict any use of the information to criminally investigate or prosecute any alcohol or drug abuse patient.[facility] CenterIn the event this information is protected by the Federal Confidentiality of Alcohol and Drug Abuse Patient Records regulations: The Federal rules restrict any use of the information to criminally investigate or prosecute any alcohol or drug abuse patient.[facility] CenterIn the event this information is protected by the Federal Confidentiality of Alcohol and Drug Abuse Patient Records regulations: The Federal rules restrict any use of the information to criminally investigate or prosecute any alcohol or drug abuse patient.[facility] CenterIn the event this information is protected by the Federal Confidentiality of Alcohol and Drug Abuse Patient Records regulations: The Federal rules restrict any use of the information to criminally investigate or prosecute any alcohol or drug abuse patient.[facility] CenterIn the event this information is protected by the Federal Confidentiality of Alcohol and Drug Abuse Patient Records regulations: The Federal rules restrict any use of the information to criminally investigate or prosecute any alcohol or drug abuse patient.[facility] CenterIn the event this information is protected by the Federal Confidentiality of Alcohol and Drug Abuse Patient Records regulations: The Federal rules restrict any use of the information to criminally investigate or prosecute any alcohol or drug abuse patient.[facility] CenterIn the event this information is protected by the Federal Confidentiality of Alcohol and Drug Abuse Patient Records regulations: The Federal rules restrict any use of the information to criminally investigate or prosecute any alcohol or drug abuse patient.[facility] CenterIn the event this information is protected by the Federal Confidentiality of Alcohol and Drug Abuse Patient Records regulations: The Federal rules restrict any use of the information to criminally investigate or prosecute any alcohol or drug abuse patient.[facility] CenterIn the event this information is protected by the Federal Confidentiality of Alcohol and Drug Abuse Patient Records regulations: The Federal rules restrict any use of the information to criminally investigate or prosecute any alcohol or drug abuse patient.[facility] CenterIn the event this information is protected by the Federal Confidentiality of Alcohol and Drug Abuse Patient Records regulations: The Federal rules restrict any use of the information to criminally investigate or prosecute any alcohol or drug abuse patient.[facility] CenterIn the event this information is protected by the Federal Confidentiality of Alcohol and Drug Abuse Patient Records regulations: The Federal rules restrict any use of the information to criminally investigate or prosecute any alcohol or drug abuse patient.[facility] CenterIn the event this information is protected by the Federal Confidentiality of Alcohol and Drug Abuse Patient Records regulations: The Federal rules restrict any use of the information to criminally investigate or prosecute any alcohol or drug abuse patient.[facility] CenterIn the event this information is protected by the Federal Confidentiality of Alcohol and Drug Abuse Patient Records regulations: The Federal rules restrict any use of the information to criminally investigate or prosecute any alcohol or drug abuse patient.[facility] CenterIn the event this information is protected by the Federal Confidentiality of Alcohol and Drug Abuse Patient Records regulations: The Federal rules restrict any use of the information to criminally investigate or prosecute any alcohol or drug abuse patient.[facility] CenterIn the event this information is protected by the Federal Confidentiality of Alcohol and Drug Abuse Patient Records regulations: The Federal rules restrict any use of the information to criminally investigate or prosecute any alcohol or drug abuse patient.[facility] CenterIn the event this information is protected by the Federal Confidentiality of Alcohol and Drug Abuse Patient Records regulations: The Federal rules restrict any use of the information to criminally investigate or prosecute any alcohol or drug abuse patient.[facility] CenterIn the event this information is protected by the Federal Confidentiality of Alcohol and Drug Abuse Patient Records regulations: The Federal rules restrict any use of the information to criminally investigate or prosecute any alcohol or drug abuse patient.[facility] CenterIn the event this information is protected by the Federal Confidentiality of Alcohol and Drug Abuse Patient Records regulations: The Federal rules restrict any use of the information to criminally investigate or prosecute any alcohol or drug abuse patient.[facility] CenterIn the event this information is protected by the Federal Confidentiality of Alcohol and Drug Abuse Patient Records regulations: The Federal rules restrict any use of the information to criminally investigate or prosecute any alcohol or drug abuse patient.[facility] CenterIn the event this information is protected by the Federal Confidentiality of Alcohol and Drug Abuse Patient Records regulations: The Federal rules restrict any use of the information to criminally investigate or prosecute any alcohol or drug abuse patient.[facility] CenterIn the event this information is protected by the Federal Confidentiality of Alcohol and Drug Abuse Patient Records regulations: The Federal rules restrict any use of the information to criminally investigate or prosecute any alcohol or drug abuse patient.[facility] CenterIn the event this information is protected by the Federal Confidentiality of Alcohol and Drug Abuse Patient Records regulations: The Federal rules restrict any use of the information to criminally investigate or prosecute any alcohol or drug abuse patient.[facility] CenterIn the event this information is protected by the Federal Confidentiality of Alcohol and Drug Abuse Patient Records regulations: The Federal rules restrict any use of the information to criminally investigate or prosecute any alcohol or drug abuse patient.[facility] CenterIn the event this information is protected by the Federal Confidentiality of Alcohol and Drug Abuse Patient Records regulations: The Federal rules restrict any use of the information to criminally investigate or prosecute any alcohol or drug abuse patient.[facility] CenterIn the event this information is protected by the Federal Confidentiality of Alcohol and Drug Abuse Patient Records regulations: The Federal rules restrict any use of the information to criminally investigate or prosecute any alcohol or drug abuse patient.[facility] CenterIn the event this information is protected by the Federal Confidentiality of Alcohol and Drug Abuse Patient Records regulations: The Federal rules restrict any use of the information to criminally investigate or prosecute any alcohol or drug abuse patient.[facility] CenterIn the event this information is protected by the Federal Confidentiality of Alcohol and Drug Abuse Patient Records regulations: The Federal rules restrict any use of the information to criminally investigate or prosecute any alcohol or drug abuse patient.[facility] CenterIn the event this information is protected by the Federal Confidentiality of Alcohol and Drug Abuse Patient Records regulations: The Federal rules restrict any use of the information to criminally investigate or prosecute any alcohol or drug abuse patient.[facility] CenterIn the event this information is protected by the Federal Confidentiality of Alcohol and Drug Abuse Patient Records regulations: The Federal rules restrict any use of the information to criminally investigate or prosecute any alcohol or drug abuse patient.[facility] CenterIn the event this information is protected by the Federal Confidentiality of Alcohol and Drug Abuse Patient Records regulations: The Federal rules restrict any use of the information to criminally investigate or prosecute any alcohol or drug abuse patient.[facility] CenterIn the event this information is protected by the Federal Confidentiality of Alcohol and Drug Abuse Patient Records regulations: The Federal rules restrict any use of the information to criminally investigate or prosecute any alcohol or drug abuse patient.[facility] CenterIn the event this information is protected by the Federal Confidentiality of Alcohol and Drug Abuse Patient Records regulations: The Federal rules restrict any use of the information to criminally investigate or prosecute any alcohol or drug abuse patient.[facility] CenterIn the event this information is protected by the Federal Confidentiality of Alcohol and Drug Abuse Patient Records regulations: The Federal rules restrict any use of the information to criminally investigate or prosecute any alcohol or drug abuse patient.[facility] CenterIn the event this information is protected by the Federal Confidentiality of Alcohol and Drug Abuse Patient Records regulations: The Federal rules restrict any use of the information to criminally investigate or prosecute any alcohol or drug abuse patient.[facility] CenterIn the event this information is protected by the Federal Confidentiality of Alcohol and Drug Abuse Patient Records regulations: The Federal rules restrict any use of the information to criminally investigate or prosecute any alcohol or drug abuse patient.[facility] CenterIn the event this information is protected by the Federal Confidentiality of Alcohol and Drug Abuse Patient Records regulations: The Federal rules restrict any use of the information to criminally investigate or prosecute any alcohol or drug abuse patient.[facility] CenterIn the event this information is protected by the Federal Confidentiality of Alcohol and Drug Abuse Patient Records regulations: The Federal rules restrict any use of the information to criminally investigate or prosecute any alcohol or drug abuse patient.[facility] CenterIn the event this information is protected by the Federal Confidentiality of Alcohol and Drug Abuse Patient Records regulations: The Federal rules restrict any use of the information to criminally investigate or prosecute any alcohol or drug abuse patient.[facility] CenterIn the event this information is protected by the Federal Confidentiality of Alcohol and Drug Abuse Patient Records regulations: The Federal rules restrict any use of the information to criminally investigate or prosecute any alcohol or drug abuse patient.[facility] CenterIn the event this information is protected by the Federal Confidentiality of Alcohol and Drug Abuse Patient Records regulations: The Federal rules restrict any use of the information to criminally investigate or prosecute any alcohol or drug abuse patient.[facility] CenterIn the event this information is protected by the Federal Confidentiality of Alcohol and Drug Abuse Patient Records regulations: The Federal rules restrict any use of the information to criminally investigate or prosecute any alcohol or drug abuse patient.[facility] CenterIn the event this information is protected by the Federal Confidentiality of Alcohol and Drug Abuse Patient Records regulations: The Federal rules restrict any use of the information to criminally investigate or prosecute any alcohol or drug abuse patient.[facility] CenterIn the event this information is protected by the Federal Confidentiality of Alcohol and Drug Abuse Patient Records regulations: The Federal rules restrict any use of the information to criminally investigate or prosecute any alcohol or drug abuse patient.[facility] CenterIn the event this information is protected by the Federal Confidentiality of Alcohol and Drug Abuse Patient Records regulations: The Federal rules restrict any use of the information to criminally investigate or prosecute any alcohol or drug abuse patient.[facility] CenterIn the event this information is protected by the Federal Confidentiality of Alcohol and Drug Abuse Patient Records regulations: The Federal rules restrict any use of the information to criminally investigate or prosecute any alcohol or drug abuse patient.[facility] CenterIn the event this information is protected by the Federal Confidentiality of Alcohol and Drug Abuse Patient Records regulations: The Federal rules restrict any use of the information to criminally investigate or prosecute any alcohol or drug abuse patient.[facility] CenterIn the event this information is protected by the Federal Confidentiality of Alcohol and Drug Abuse Patient Records regulations: The Federal rules restrict any use of the information to criminally investigate or prosecute any alcohol or drug abuse patient.[facility] CenterIn the event this information is protected by the Federal Confidentiality of Alcohol and Drug Abuse Patient Records regulations: The Federal rules restrict any use of the information to criminally investigate or prosecute any alcohol or drug abuse patient.[facility] CenterIn the event this information is protected by the Federal Confidentiality of Alcohol and Drug Abuse Patient Records regulations: The Federal rules restrict any use of the information to criminally investigate or prosecute any alcohol or drug abuse patient.[facility] CenterIn the event this information is protected by the Federal Confidentiality of Alcohol and Drug Abuse Patient Records regulations: The Federal rules restrict any use of the information to criminally investigate or prosecute any alcohol or drug abuse patient.[facility] CenterIn the event this information is protected by the Federal Confidentiality of Alcohol and Drug Abuse Patient Records regulations: The Federal rules restrict any use of the information to criminally investigate or prosecute any alcohol or drug abuse patient.[facility] CenterIn the event this information is protected by the Federal Confidentiality of Alcohol and Drug Abuse Patient Records regulations: The Federal rules restrict any use of the information to criminally investigate or prosecute any alcohol or drug abuse patient.[facility] CenterIn the event this information is protected by the Federal Confidentiality of Alcohol and Drug Abuse Patient Records regulations: The Federal rules restrict any use of the information to criminally investigate or prosecute any alcohol or drug abuse patient.[facility] CenterIn the event this information is protected by the Federal Confidentiality of Alcohol and Drug Abuse Patient Records regulations: The Federal rules restrict any use of the information to criminally investigate or prosecute any alcohol or drug abuse patient.[facility] CenterIn the event this information is protected by the Federal Confidentiality of Alcohol and Drug Abuse Patient Records regulations: The Federal rules restrict any use of the information to criminally investigate or prosecute any alcohol or drug abuse patient.[facility] CenterIn the event this information is protected by the Federal Confidentiality of Alcohol and Drug Abuse Patient Records regulations: The Federal rules restrict any use of the information to criminally investigate or prosecute any alcohol or drug abuse patient.[facility] CenterIn the event this information is protected by the Federal Confidentiality of Alcohol and Drug Abuse Patient Records regulations: The Federal rules restrict any use of the information to criminally investigate or prosecute any alcohol or drug abuse patient.[facility] CenterIn the event this information is protected by the Federal Confidentiality of Alcohol and Drug Abuse Patient Records regulations: The Federal rules restrict any use of the information to criminally investigate or prosecute any alcohol or drug abuse patient.[facility] CenterIn the event this information is protected by the Federal Confidentiality of Alcohol and Drug Abuse Patient Records regulations: The Federal rules restrict any use of the information to criminally investigate or prosecute any alcohol or drug abuse patient.[facility] CenterIn the event this information is protected by the Federal Confidentiality of Alcohol and Drug Abuse Patient Records regulations: The Federal rules restrict any use of the information to criminally investigate or prosecute any alcohol or drug abuse patient.[facility] CenterIn the event this information is protected by the Federal Confidentiality of Alcohol and Drug Abuse Patient Records regulations: The Federal rules restrict any use of the information to criminally investigate or prosecute any alcohol or drug abuse patient.[facility] CenterIn the event this information is protected by the Federal Confidentiality of Alcohol and Drug Abuse Patient Records regulations: The Federal rules restrict any use of the information to criminally investigate or prosecute any alcohol or drug abuse patient.[facility] CenterIn the event this information is protected by the Federal Confidentiality of Alcohol and Drug Abuse Patient Records regulations: The Federal rules restrict any use of the information to criminally investigate or prosecute any alcohol or drug abuse patient.[facility] CenterIn the event this information is protected by the Federal Confidentiality of Alcohol and Drug Abuse Patient Records regulations: The Federal rules restrict any use of the information to criminally investigate or prosecute any alcohol or drug abuse patient.[facility] CenterIn the event this information is protected by the Federal Confidentiality of Alcohol and Drug Abuse Patient Records regulations: The Federal rules restrict any use of the information to criminally investigate or prosecute any alcohol or drug abuse patient.[facility] CenterIn the event this information is protected by the Federal Confidentiality of Alcohol and Drug Abuse Patient Records regulations: The Federal rules restrict any use of the information to criminally investigate or prosecute any alcohol or drug abuse patient.[facility] CenterIn the event this information is protected by the Federal Confidentiality of Alcohol and Drug Abuse Patient Records regulations: The Federal rules restrict any use of the information to criminally investigate or prosecute any alcohol or drug abuse patient.[facility] Care Teams (unrecognized sec tion and content) Mall Plant Caretaker Relationship Specialty Start Date End Date Corey Lovelace MD [address] [facility] [place] [address] PCP - General Internal Medicine 02/28/19 Cici Welch [address] [place] [address] Consulting METAL GRADER 08/15/13 Smith Magdaleno MD [address] [place] [address] [place] [address] Referring General Surgery 08/23/19 Sudhir Boyd [facility] Consulting Psychiatry 08/15/13 Mall Plant Caretaker Relationship Specialty Start Date End Date Corey Lovelace MD [address] [place] [address] PCP - General Internal Medicine 02/28/19 Cici Welch [address] [place] [address] Consulting METAL GRADER 08/15/13 Smith Magdaleno MD [address] [place] [address] Referring General Surgery 08/23/19 Sudhir [facility] Consulting Psychiatry 08/15/13 Mall Plant Caretaker Relationship Specialty Start Date End Date Corey Lovelace MD [address] [place] [address] PCP - General Internal Medicine 02/28/19 Cici Welch S [address] [place] [address] Consulting METAL GRADER 08/15/13 Smith Magdaleno MD [address] [place] [address] Referring General Surgery 08/23/19 Sudhir Boyd [facility] Consulting Psychiatry 08/15/13 Mall Plant Caretaker Relationship Specialty Start Date End Date Corey Lovelace MD [address] [place] [address] PCP - General Internal Medicine 02/28/19 Cici Welch S [address] [place] [address] Consulting METAL GRADER 08/15/13 Smith Magdaleno MD [address] [place] [address] Referring General Surgery 08/23/19 Sudhir Boyd [facility] Consulting Psychiatry 08/15/13 Mall Plant Caretaker Relationship Specialty Start Date End Date Corey Lovelace MD [address] [place] [address] PCP - General Internal Medicine 02/28/19 Cici Welch S [address] [place] [address] Consulting METAL GRADER 08/15/13 Smith Magdaleno MD [address] [place] [address] Referring General Surgery 08/23/19 Sudhir Boyd [facility] Consulting Psychiatry 08/15/13 Mall Plant Caretaker Relationship Specialty Start Date End Date Corey Lovelace MD [address] [place] [address] PCP - General Internal Medicine 02/28/19 Cici Welch [address] [place] [address] Consulting METAL GRADER 08/15/13 Smith Magdaleno MD [address] [place] [address] Referring General Surgery 08/23/19 Sudhir Boyd [facility] Consulting Psychiatry 08/15/13 Mall Plant Caretaker Relationship Specialty Start Date End Date Corey Lovelace MD [address] [place] [address] PCP - General Internal Medicine 02/28/19 Cici Welch [address] [place] [address] Consulting METAL GRADER 08/15/13 Smith Magdaleno MD [address] [place] [address] Referring General Surgery 08/23/19 Sudhir Boyd [facility] Consulting Psychiatry 08/15/13 Mall Plant Caretaker Relationship Specialty Start Date End Date Corey Lovelace MD [address] [place] [address] PCP - General Internal Medicine 02/28/19 Cici Welch S [address] [place] [address] Consulting METAL GRADER 08/15/13 Smith Magdaleno MD [address] [place] [address] Referring General Surgery 08/23/19 Sudhir Boyd [facility] Consulting Psychiatry 08/15/13 Mall Plant Caretaker Relationship Specialty Start Date End Date Corey Lovelace MD [address] [place] [address] PCP - General Internal Medicine 02/28/19 Cici Welch [address] [facility] [place] [address] Consulting METAL GRADER 08/15/13 Smith Magdaleno MD [address] [place] [address] Referring General Surgery 08/23/19 Sudhir Boyd [facility] Consulting Psychiatry 08/15/13 Mall Plant Caretaker Relationship Specialty Start Date End Date Corey Lovelace MD [address] [place] [address] PCP - General Internal Medicine 02/28/19 Cici Welch S [address] [facility] [place] [address] Consulting METAL GRADER 08/15/13 Smith Magdaleno MD [address] [place] [address] Referring General Surgery 08/23/19 Sudhir Boyd [facility] Consulting Psychiatry 08/15/13 Mall Plant Caretaker Relationship Specialty Start Date End Date Corey Lovelace MD [address] [place] [address] PCP - General Internal Medicine 02/28/19 Cici Welch S [address] [place] [address] Consulting METAL GRADER 08/15/13 Smith Magdaleno MD [address] [place] [address] Referring General Surgery 08/23/19 Sudhir Boyd [facility] Consulting Psychiatry 08/15/13 Mall Plant Caretaker Relationship Specialty Start Date End Date Corey Lovelace MD [address] [place] [address] PCP - General Internal Medicine 02/28/19 Cici Welch S [address] [place] [address] Consulting METAL GRADER 08/15/13 Smith Magdaleno MD [address] [place] [address] Referring General Surgery 08/23/19 Sudhir Boyd [facility] Consulting Psychiatry 08/15/13 Mall Plant Caretaker Relationship Specialty Start Date End Date Corey Lovelace MD [address] [place] [address] PCP - General Internal Medicine 02/28/19 Cici Welch S [address] [place] [address] Consulting METAL GRADER 08/15/13 Smith Magdaleno MD [address] [place] [address] Referring General Surgery 08/23/19 Sudhir Boyd [facility] Consulting Psychiatry 08/15/13 Mall Plant Caretaker Relationship Specialty Start Date End Date Corey Lovelace MD [address] [place] [address] PCP - General Internal Medicine 02/28/19 Cici Welch S [address] [place] [address] Consulting METAL GRADER 08/15/13 Smith Magdaleno MD [address] [place] [address] Referring General Surgery 08/23/19 Sudhir Boyd [facility] Consulting Psychiatry 08/15/13 Mall Plant Caretaker Relationship Specialty Start Date End Date Corey Lovelace MD [address] [place] [address] PCP - General Internal Medicine 02/28/19 Cici Welch S [address] [place] [address] Consulting METAL GRADER 08/15/13 Smith Magdaleno MD [address] [place] [address] Referring General Surgery 08/23/19 Sudhir Boyd [facility] Consulting Psychiatry 08/15/13 Mall Plant Caretaker Relationship Specialty Start Date End Date Corey Lovelace MD [address] [place] [address] PCP - General Internal Medicine 02/28/19 Cici Welch [address] [place] [address] Consulting METAL GRADER 08/15/13 Smith Magdaleno MD [address] [place] [address] Referring General Surgery 08/23/19 Sudhir Boyd [facility] Consulting Psychiatry 08/15/13 Mall Plant Caretaker Relationship Specialty Start Date End Date Rowan Barajas [address] [place] [address] (Fax) PCP - General Nurse Practitioner 06/10/22 [facility] 06/09/22 Mall Plant Caretaker Relationship Specialty Start Date End Date Rowan Barajas [address] [place] [address] (Fax) PCP - General Nurse Practitioner 06/10/22 [facility] Primary Care Provider 06/09/22 Mall Plant Caretaker Relationship Specialty Start Date End Date Corey Lovelace MD [address] [place] [address] PCP - General Internal Medicine 02/28/19 Cici Welch [address] [place] [address] Consulting METAL GRADER 08/15/13 Smith Magdaleno MD [address] [place] [address] Referring General Surgery 08/23/19 Sudhir Boyd [facility] Consulting Psychiatry 08/15/13 Mall Plant Caretaker Relationship Specialty Start Date End Date Corey Lovelace MD [address] [place] [address] PCP - General Internal Medicine 02/28/19 Cici Welch [address] [place] [address] Consulting METAL GRADER 08/15/13 Smith Magdaleno MD [address] [place] [address] Referring General Surgery 08/23/19 Sudhir Boyd [facility] Consulting Psychiatry 08/15/13 Mall Plant Caretaker Relationship Specialty Start Date End Date Corey Lovelace MD [address] [place] [address] PCP - General Internal Medicine 02/28/19 Cici Welch S [address] [place] [address] Consulting METAL GRADER 08/15/13 Smith Magdaleno MD [address] [place] [address] Referring General Surgery 08/23/19 [facility] 08/15/13 Mall Plant Caretaker Relationship Specialty Start Date End Date Corey Lovelace MD [address] [place] [address] PCP - General Internal Medicine 02/28/19 Cici Welch S [address] [place] [address] Consulting METAL GRADER 08/15/13 Smith Magdaleno MD [address] [facility] [address] [place] [address] Referring General Surgery 08/23/19 Sudhir Boyd [facility] Consulting Psychiatry 08/15/13 Mall Plant Caretaker Relationship Specialty Start Date End Date Rowan Barajas APRN.MORTARMAN [address] [place] [address] PCP - General Family Medicine 08/23/22 Cici Welch S [address] [place] [address] Consulting METAL GRADER 08/15/13 Smith Magdaleno MD [address] [address] Referring General Surgery 08/23/19 Sudhir Boyd [facility] Consulting Psychiatry 08/15/13 Mall Plant Caretaker Relationship Specialty Start Date End Date Corey Lovelace MD [address] [place] [address] PCP - General Internal Medicine 02/28/19 08/22/22 Rowan Barajas, REVIEW ENGINEER.MORTARMAN [address] [place] [address] PCP - General Family Medicine 08/23/22 Cici Welch [address] [place] [address] Consulting METAL GRADER 08/15/13 Smith Magdaleno MD [address] [address] Referring General Surgery 08/23/19 Sudhir Boyd [facility] Consulting Psychiatry 08/15/13 Mall Plant Caretaker Relationship Specialty Start Date End Date Rowan Barajas, REVIEW ENGINEER.MORTARMAN [address] [place] [address] PCP - General Family Medicine 08/23/22 Cici Welch [address] [place] [address] Consulting METAL GRADER 08/15/13 Smith Magdaleno MD [address] [address] Referring General Surgery 08/23/19 Sudhir Boyd [facility] Consulting Psychiatry 08/15/13 Mall Plant Caretaker Relationship Specialty Start Date End Date Rowan Barajas [address] [place] [address] PCP - General Nurse Practitioner 06/10/22 [facility] 06/09/22 Mall Plant Caretaker Relationship Specialty Start Date End Date Rowan Barajas APRN.MORTARMAN [address] [place] [address] PCP - General Family Medicine 08/23/22 Cici Welch [address] [place], [place] [address] Consulting METAL GRADER 08/15/13 Smith Magdaleno MD [address] [address] Referring General Surgery 08/23/19 Sudhir Boyd [facility] Consulting Psychiatry 08/15/13 Mall Plant Caretaker Relationship Specialty Start Date End Date Rowan Barajas, ANUJA.[place] [address] [place] [address] PCP - General Family Medicine 08/23/22 Cici Welch [address] [place] [address] Consulting METAL GRADER 08/15/13 Smith Magdaleno MD [address] [address] Referring General Surgery 08/23/19 Sudhir Boyd [facility] Consulting Psychiatry 08/15/13 Mall Plant Caretaker Relationship Specialty Start Date End Date Rowan Barajas [address] [place] [address] (Fax) PCP - General Nurse Practitioner 06/10/22 Manuela Valverde [facility] Physicains Primary Care Provider 06/09/22 Mall Plant Caretaker Relationship Specialty Start Date End Date Rowan Barajas, ANUJA.MORTARMAN [address] [place] [address] (Fax) PCP - General Family Medicine 08/23/22 Cici Welch [address] [place], [place] [address] Consulting METAL GRADER 08/15/13 Smith Magdaleno MD [address] [address] Referring General Surgery 08/23/19 Sudhir Boyd [facility] Consulting Psychiatry 08/15/13 Mall Plant Caretaker Relationship Specialty Start Date End Date Rowan Barajas [address] [place] [address] (Fax) PCP - General Nurse Practitioner 06/10/22 Manuela [facility]verde [facility] 06/09/22 Mall Plant Caretaker Relationship Specialty Start Date End Date Rowan Barajas, ANUJA.MORTARMAN [address] [place] [address] (Work) PCP - General Family Medicine 08/23/22 Cici Welch [address] [place] [address] Consulting METAL GRADER 08/15/13 Smith Magdaleno MD [address] [address] Referring General Surgery 08/23/19 [facility] Consulting Psychiatry 08/15/13 Mall Plant Caretaker Relationship Specialty Start Date End Date Rowan Barajas APRN.MORTARMAN [address] [place] [address] PCP - General Family Medicine 08/23/22 Cici Welch [address] [place], [place] [address] Consulting METAL GRADER 08/15/13 Smith Magdaleno MD [address] [address] Referring General Surgery 08/23/19 [facility] Consulting Psychiatry 08/15/13 Mall Plant Caretaker Relationship Specialty Start Date End Date Rowan Barajas, REVIEW ENGINEER.MORTARMAN [address] [place] [address] PCP - General Family Medicine 08/23/22 Cici Welch [address] [place], [place] [address] Consulting METAL GRADER 08/15/13 Smith Magdaleno MD [address] [id number] Referring General Surgery 08/23/19 [facility]tr Consulting Psychiatry 08/15/13 Mall Plant Caretaker Relationship Specialty Start Date End Date Rowan Barajas APRN.MORTARMAN [address] [place] [address] PCP - General Family Medicine 08/23/22 Cici Welch [address] [place] [address] Consulting METAL GRADER 08/15/13 Smith Magdaleno MD [address] [address] Referring General Surgery 08/23/19 Sudhir Boyd [facility] Consulting Psychiatry 08/15/13 Mall Plant Caretaker Relationship Specialty Start Date End Date Rowan Barajas [address] [place] [address] PCP - General Nurse Practitioner 06/10/22 Manuela Valverde [facility] Physicains Primary Care Provider 06/09/22 Mall Plant Caretaker Relationship Specialty Start Date End Date Rowan Barajas [address] [place] [address] (Fax) PCP - General Nurse Practitioner 06/10/22 Manuela Valverde [facility] Physicains Primary Care Provider 06/09/22 Mall Plant Caretaker Relationship Specialty Start Date End Date Rowan Barajas APRN.CNP [address] [place] [address] PCP - General Family Medicine 08/23/22 Cici Welch [address] [place] [address] Consulting METAL GRADER 08/15/13 Smith Magdaleno MD [address] [address] Referring General Surgery 08/23/19 [facility]tr Consulting Psychiatry 08/15/13 Mall Plant Caretaker Relationship Specialty Start Date End Date Rowan Barajas [address] [place] [address] (Fax) PCP - General Nurse Practitioner 06/10/22 [facility] 06/09/22 Mall Plant Caretaker Relationship Specialty Start Date End Date Rowan Barajas APRN.MORTARMAN [address] [place] [address] PCP - General Family Medicine 08/23/22 Cici Welch [address] [place] [place] [address] Consulting METAL GRADER 08/15/13 Smith Magdaleno MD [address] [address] Referring General Surgery 08/23/19 [facility]tr Consulting Psychiatry 08/15/13 Mall Plant Caretaker Relationship Specialty Start Date End Date Rowan Barajas APRN.MORTARMAN [address] [place] [address] PCP - General Family Medicine 08/23/22 Cici Welch [address] [place] [place] [address] Consulting METAL GRADER 08/15/13 Smith Magdaleno MD [address] [address] Referring General Surgery 08/23/19 [facility] 08/15/13 Mall Plant Caretaker Relationship Specialty Start Date End Date Rowan Barajas, REVIEW ENGINEER.MORTARMAN [address] [place] [address] PCP - General Family Medicine 08/23/22 Cici Welch [address] [place], [place] [address] Consulting METAL GRADER 08/15/13 Smith Magdaleno MD [address] [address] Referring General Surgery 08/23/19 Sudhir Boyd [facility] Consulting Psychiatry 08/15/13 Mall Plant Caretaker Relationship Specialty Start Date End Date Rowan Barajas, REVIEW ENGINEER.MORTARMAN [address] [place] [address] (Work) PCP - General Family Medicine 08/23/22 Cici Welch [address] [place], [place] [id number] Consulting METAL GRADER 08/15/13 Smith Magdaleno MD [address] [address] Referring General Surgery 08/23/19 [facility] Consult[facility] 08/15/13 Mall Plant Caretaker Relationship Specialty Start Date End Date Rowan Barajas [address] [place] [address] (Fax) PCP - General Nurse Practitioner 06/10/[address] [facility] Primary Care Provider 06/09/22 Mall Plant Caretaker Relationship Specialty Start Date End Date Rowan Barajas APRN.MORTARMAN [address] [place] [address] PCP - General Family Medicine 08/23/22 Cici Welch [address] [place] [address] Consulting METAL GRADER 08/15/13 Smith Magdaleno MD [address] [facility] [address] [place] [address] Referring General Surgery 08/23/19 Sudhir Boyd [facility] Consulting Psychiatry 08/15/13 Mall Plant Caretaker Relationship Specialty Start Date End Date Rowan Barajas, REVIEW ENGINEER.MORTARMAN [address] [place] [id number] PCP - General Family Medicine 08/23/22 Cici Welch [address] [place] [address] Consulting METAL GRADER 08/15/13 Smith Magdaleno MD [address] [place] [address] Referring General Surgery 08/23/19 [facility] Consulting Psychiatry 08/15/13 Mall Plant Caretaker Relationship Specialty Start Date End Date Rowan Barajas, REVIEW ENGINEER.MORTARMAN [address] [place] [address] (Work) PCP - General Family Medicine 08/23/22 Cici Welch [address] [place], [place] 8[address] Consulting METAL GRADER 08/15/13 Smith Magdaleno MD [address] [place] [address] Referring General Surgery 08/23/19 [facility] Consulting Psychiatry 08/15/13 Mall Plant Caretaker Relationship Specialty Start Date End Date Corey Lovelace MD [address] [place] [address] PCP - General Internal Medicine 02/28/19 08/22/22 Cici Welch [address] [place] [address] Consulting METAL GRADER 08/15/13 Smith Magdaleno MD [address] [place] [address] Referring General Surgery 08/23/19 [facility] Consulting Psychiatry 08/15/13 Mall Plant Caretaker Relationship Specialty Start Date End Date Corey Lovelace MD [address] [place] [address] PCP - General Internal Medicine 02/28/19 08/22/22 Cici Welch [address] [place] [address] Consulting METAL GRADER 08/15/13 Smith Magdaleno MD [address] [place] [address] Referring General Surgery 08/23/19 [facility] Consulting Psychiatry 08/15/13 Mall Plant Caretaker Relationship Specialty Start Date End Date Rowan Barajas APRN.CNP [address] [place] [address] PCP - General Family Medicine 08/23/22 Cici Welch [address] [facility] [place] [address] Consulting METAL GRADER 08/15/13 Smith Magdaleno MD [address] [place] [address] Referring General Surgery 08/23/19 [facility] Consulting Psychiatry 08/15/13 Mall Plant Caretaker Relationship Specialty Start Date End Date Rowan Barajas [address] [place] [address] (Fax) PCP - General Nurse Practitioner 06/10/[address] [facility] Primary Care Provider 06/09/22 Mall Plant Caretaker Relationship Specialty Start Date End Date Rowan Barajas APRN.MORTARMAN [address] [place] [address] PCP - General Family Medicine 08/23/22 Cici Welch [address] [place] [address] Consulting METAL GRADER 08/15/13 Smith Magdaleno MD [address] [place], [place] [address] Referring General Surgery 08/23/19 [facility] Consulting Psychiatry 08/15/13 Mall Plant Caretaker Relationship Specialty Start Date End Date Rowan Barajas APRN.MORTARMAN [address] [place] [address] PCP - General Family Medicine 08/23/22 Cici Welch [address] [place] [place], [place] 888[address] Consulting METAL GRADER 08/15/13 Smith Magdaleno MD [address] [address] Referring General Surgery 08/23/19 [facility] Consulting Psychiatry 08/15/13 Mall Plant Caretaker Relationship Specialty Start Date End Date Rowan Barajas, REVIEW ENGINEER.MORTARMAN [address] [place] [address] PCP - General Family Medicine 08/23/22 Cici Welch [address] [place] [address] Consulting METAL GRADER 08/15/13 Smith Magdaleno MD [address] [place] [address] Referring General Surgery 08/23/19 [facility] Consulting Psychiatry 08/15/13 Mall Plant Caretaker Relationship Specialty Start Date End Date Rowan Barajas APRN.MORTARMAN [address] [place] [address] PCP - General Family Medicine 08/23/22 Cici Welch [address] [place], [place] 162061 Consulting METAL GRADER 08/15/13 Smith Magdaleno MD [address] [facility] 102 [place] [address] Referring General Surgery 08/23/19 [facility] Consulting Psychiatry 08/15/13 Mall Plant Caretaker Relationship Specialty Start Date End Date Rowan Barajas, REVIEW ENGINEER.MORTARMAN [address] [place] [address] PCP - General Family Medicine 08/23/22 Cici Welch [address] [place], [place] 398091 Consulting METAL GRADER 08/15/13 Smith Magdaleno MD [address] [place] [address] Referring General Surgery 08/23/19 [facility] Consulting Psychiatry 08/15/13 Mall Plant Caretaker Relationship Specialty Start Date End Date Rowan Barajas, REVIEW ENGINEER.MORTARMAN [address] [place] [address] PCP - General Family Medicine 08/23/22 Cici Welch [address] [place], [place] 363391 Consulting METAL GRADER 08/15/13 Smith Magdaleno MD [address] [place], [place] [address] Referring General Surgery 08/23/19 [facility] Consulting Psychiatry 08/15/13 Mall Plant Caretaker Relationship Specialty Start Date End Date Rowan Barajas APRN.CNP [address] [place] [address] PCP - General Family Medicine 08/23/22 Cici Welch Jose Luis [address] [place], [place] 641136[address] Consulting METAL GRADER 08/15/13 Smith Magdaleno MD [address] [facility] [address] [place], [place] 354751 Referring General Surgery 08/23/19 Sud[facility] Consulting Psychiatry 08/15/13 Mall Plant Caretaker Relationship Specialty Start Date End Date Rowan Barajas [address] [place] [address] PCP - General Nurse Practitioner 06/10/22 Manuela Valverde [facility] Primary Care Provider 06/09/22 Mall Plant Caretaker Relationship Specialty Start Date End Date Rowan Barajas [address] [place] [address] PCP - General Nurse Practitioner 06/10/22 Manuela Valverde [facility] Primary Care Provider 06/09/22 Mall Plant Caretaker Relationship Specialty Start Date End Date Rowan Barajas [address] [place] [address] PCP - General Nurse Practitioner 06/10/22 Manuela Valverde [facility] Primary Care Provider 06/09/22 Mall Plant Caretaker Relationship Specialty Start Date End Date Rowan Barajas [address] [place] [phone] (Fax) PCP - General Nurse Practitioner 06/10/22 Manuela Valverde [facility] Primary Care Provider 06/09/22 Mall Plant Caretaker Relationship Specialty Start Date End Date Rowan Barajas [address] [place] [phone] (Fax) PCP - General Nurse Practitioner 06/10/22 Manuela Valverde [facility] Primary Care Provider 06/09/22 Mall Plant Caretaker Relationship Specialty Start Date End Date Rowan Barajas APRN.CNP [address] [place] [address] PCP - General Family Medicine 08/23/22 Cici Welch [address] [place], [place] [id number] Consulting Epic Director 08/15/13 Smith Magdaleno MD [address] [phone] Referring General Surgery 08/23/19 Sudhir Melendez Ctr Consulting Psychiatry 08/15/13 Mall Plant Caretaker Relationship Specialty Start Date End Date Rowan Barajas [address] [place] [phone] (Fax) PCP - General Nurse Practitioner 06/10/[address] [facility] Primary Care Provider 06/09/22 Mall Plant Caretaker Relationship Specialty Start Date End Date Rowan Barajas APRN.MORTARMAN [address] [place] [address] PCP - General Family Medicine 08/23/22 Cici Welch [address] [place], [place] 358921 Consulting Epic Director 08/15/13 Smith Magdaleno MD [address] [address] Referring General Surgery 08/23/19 Sudhir [facility] Consulting Psychiatry 08/15/13 Mall Plant Caretaker Relationship Specialty Start Date End Date Rowan Barajas APRN.MORTARMAN [address] [place] [address] PCP - General Family Medicine 08/23/22 Cici Welch [address] [place] [address] Consulting Epic Director 08/15/13 Smith Magdaleno MD [address] [place] [address] Referring General Surgery 08/23/19 Sudhir Boyd [facility] Consulting Psychiatry 08/15/13 Mall Plant Caretaker Relationship Specialty Start Date End Date Rowan Barajas APRN.MORTARMAN [address] [place] [address] PCP - General Family Medicine 08/23/22 Cici Welch [address] [place] [address] Consulting Epic Director 08/15/13 Smith Magdaleno MD [address] [address] Referring General Surgery 08/23/19 Sudhir Boyd [facility] Consulting Psychiatry 08/15/13 Mall Plant Caretaker Relationship Specialty Start Date End Date Rowan Barajas APRN.MORTARMAN [address] [place] [address] PCP - General Family Medicine 08/23/22 Cici Welch [address] [place] [address] Consulting Epic Director 08/15/13 Smith Magdaleno MD [address] [address] Referring General Surgery 08/23/19 Sudhir Boyd [facility] Ctr Consulting Psychiatry 08/15/13 Mall Plant Caretaker Relationship Specialty Start Date End Date Rowan Barajas, REVIEW ENGINEER.MORTARMAN [address] [place] [address] PCP - General Family Medicine 08/23/22 Cici Welch [address] [place], [place] 312461 Consulting Epic Director 08/15/13 Smith Magdaleno MD [address] 3[address] Referring General Surgery 08/23/19 Sudhir Boyd [facility] Ctr Consulting Psychiatry 08/15/13 Mall Plant Caretaker Relationship Specialty Start Date End Date Rowan Barajas APRN.MORTARMAN [address] [place] [address] PCP - General Family Medicine 08/23/22 Cici Welch [address] [place] [address] Consulting Epic Director 08/15/13 Simth Magdaleno MD [address] [address] Referring General Surgery 08/23/19 Sudhir Boyd [facility] Consulting Psychiatry 08/15/13 Mall Plant Caretaker Relationship Specialty Start Date End Date Rowan Barajas [address] [place] [phone] (Fax) PCP - General Nurse Practitioner 06/10/[address] [facility] Primary Care Provider 06/09/22 Mall Plant Caretaker Relationship Specialty Start Date End Date Rowan Barajas APRN.MORTARMAN [address] [place] [address] PCP - General Family Medicine 08/23/22 Cici Welch [address] [place] [address] Consulting Epic Director 08/15/13 Smith Magdaleno MD [address] [facility] [address] [place] [address] Referring General Surgery 08/23/19 [facility] Ctr Consulting Psychiatry 08/15/13 Mall Plant Caretaker Relationship Specialty Start Date End Date Rowan Barajas APRN.MORTARMAN [address] [place] [address] PCP - General Family Medicine 08/23/22 Cici Welch [address] [place] [address] Consulting Epic Director 08/15/13 Smith Magdaleno MD [address] [facility] [address] [place] [address] Referring General Surgery 08/23/19 [facility] Ctr Consulting Psychiatry 08/15/13 Mall Plant Caretaker Relationship Specialty Start Date End Date Rowan Barajas [address] [place] [phone] (Fax) PCP - General Nurse Practitioner 06/10/[address] [facility] Primary Care Provider 06/09/22 Mall Plant Caretaker Relationship Specialty Start Date End Date Rowan Barajas APRN.MORTARMAN [address] [place] [address] PCP - General Family Medicine 08/23/22 Ccii Welch [address] [place] [address] Consulting Epic Director 08/15/13 Smith Magdaleno MD [address] [place] [address] Referring General Surgery 08/23/19 [facility]tr Consulting Psychiatry 08/15/13 Mall Plant Caretaker Relationship Specialty Start Date End Date Rowan Barajas, REVIEW ENGINEER.MORTARMAN [address] [place] [address] PCP - General Family Medicine 08/23/22 Cici Welch [address] [place], [place] 422021 Consulting Epic Director 08/15/13 Smith Magdaleno MD [address], [place] [address] Referring General Surgery 08/23/19 [facility]tr Consulting Psychiatry 08/15/13 Mall Plant Caretaker Relationship Specialty Start Date End Date Rowan Barajas, REVIEW ENGINEER.MORTARMAN [address] [place] [address] PCP - General Family Medicine 08/23/22 Cici Welch [address] [place], [place] 515771 Consulting Epic Director 08/15/13 Smith Magdaleno MD [address] [facility] [address] [place], [place] [address] Referring General Surgery 08/23/19 Sudhir Boyd [facility]tr Consulting Psychiatry 08/15/13 Mall Plant Caretaker Relationship Specialty Start Date End Date Rowan Barajas [address] [place] [phone] (Fax) PCP - General Nurse Practitioner 06/10/[address] [facility] Primary Care Provider 06/09/22 Mall Plant Caretaker Relationship Specialty Start Date End Date Rowan Barajas, REVIEW ENGINEER.MORTARMAN [address] [place] [address] PCP - General Family Medicine 08/23/22 Cici Welch [address] [place] [address] Consulting Epic Director 08/15/13 Smith Magdaleno MD [address] [address] Referring General Surgery 08/23/19 Sudhir Boyd [facility] Ctr Consulting Psychiatry 08/15/13 Mall Plant Caretaker Relationship Specialty Start Date End Date Rowan Barajas, REVIEW ENGINEER.MORTARMAN [address] [place] [address] PCP - General Family Medicine 08/23/22 Cici Welch [address] [place], [place] 873341 Consulting Epic Director 08/15/13 Smith Magdaleno MD [address] [facility] [address] [place] [address] Referring General Surgery 08/23/19 Sudhir Boyd [facility] Ctr Consulting Psychiatry 08/15/13 Mall Plant Caretaker Relationship Specialty Start Date End Date Rowan Barajas, ANUJA.MORTARMAN [address] [place] [address] PCP - General Family Medicine 08/23/22 Cici Welch [address] [place] [address] Consulting Epic Director 08/15/13 Smith Magdaleno MD [address] [address] Referring General Surgery 08/23/19 Sudhir Boyd [facility]tr Consulting Psychiatry 08/15/13 Mall Plant Caretaker Relationship Specialty Start Date End Date Rowan Barajas, REVIEW ENGINEER.MORTARMAN [address] [place] [address] PCP - General Family Medicine 08/23/22 Cici Welch [address] [place], [place] 416411 Consulting Epic Director 08/15/13 Smith Magdaleno MD [address] [address] Referring General Surgery 08/23/19 Sudhir Boyd [facility]tr Consulting Psychiatry 08/15/13 Mall Plant Caretaker Relationship Specialty Start Date End Date Rowan Barajsa [address] [place] [phone] (Work) (Fax) PCP - General Nurse Practitioner 06/10/22 Manuela Nicolle [facility] Primary Care Provider 06/09/22 Mall Plant Caretaker Relationship Specialty Start Date End Date Rowan Barajas [address] [place] [address] (Fax) PCP - General Nurse Practitioner 06/10/22 Manuela Posadazenia [facility] 06/09/22 Mall Plant Caretaker Relationship Specialty Start Date End Date Rowan Barajas APRN.MORTARMAN [address] [place] [address] PCP - General Family Medicine 08/23/22 Cici Welch [address] [place] [address] Consulting Epic Director 08/15/13 Smith Magdaleno MD [address] [address] Referring General Surgery 08/23/19 Sudhir Boyd [facility]tr Consulting Psychiatry 08/15/13 Mall Plant Caretaker Relationship Specialty Start Date End Date Rowan Barajas, ANUJA.MORTARMAN [address] [place] [address] PCP - General Family Medicine 08/23/22 Cici Welch [address] [place] [address] Consulting Epic Director 08/15/13 Smith Mgadaleno MD [address] [address] Referring General Surgery 08/23/19 Sudhir Boyd [facility]tr Consulting Psychiatry 08/15/13 Mall Plant Caretaker Relationship Specialty Start Date End Date Michele Bell DO 830 [facility] [place] [address] PCP - General Family Medicine 09/12/23 Cici Welch [address] [place], [place] 267811 Consulting Epic Director 08/15/13 Smith Magdaleno MD [address] [address] Referring General Surgery 08/23/19 [facility] Consulting Psychiatry 08/15/13 Mall Plant Caretaker Relationship Specialty Start Date End Date Michele Bell DO [address] [place] [address] PCP - General Family Medicine 09/12/23 Cici Welch [address] [place] [address] Consulting Epic Director 08/15/13 Smith Magdaleno MD [address] 7928[address] Referring General Surgery 08/23/19 Sudhir Boyd [facility] Ctr Consulting Psychiatry 08/15/13 Mall Plant Caretaker Relationship Specialty Start Date End Date Michele Bell DO [address]30 [facility] [place] [address] PCP - General Family Medicine 09/12/23 Cici Welch [address] [place], [place] 498[address] Consulting Epic Director 08/15/13 Smith Magdaleno MD [address] [facility] [address] [place] [address] Referring General Surgery 08/23/19 Sudhir Boyd [facility] Ctr Consulting Psychiatry 08/15/13 Mall Plant Caretaker Relationship Specialty Start Date End Date Michele Bell DO [address] [facility] [place] [address] PCP - General Family Medicine 09/12/23 Cici Welch [address] [place] [address] Consulting Epic Director 08/15/13 Smith Magdaleno MD [address] [address] Referring General Surgery 08/23/19 Sudhir Boyd Counseling Ctr Consulting Psychiatry 08/15/13 Mall Plant Caretaker Relationship Specialty Start Date End Date Michele Bell DO 830 [facility] [place] [address] PCP - General Family Medicine 09/12/23 Cici Welch [address] [place] [address] Consulting Epic Director 08/15/13 Smith Magdaleno MD [address] [place] [address] Referring General Surgery 08/23/19 Sudhir Boyd [facility] Consulting Psychiatry 08/15/13 Mall Plant Caretaker Relationship Specialty Start Date End Date Michele Bell DO [address] [place] [address] PCP - General Family Medicine 09/12/23 Cici Welch [address] [facility] [place], [place] 0926[address] Consulting Epic Director 08/15/13 Smith Magdaleno MD [address] [place] [address] Referring General Surgery 08/23/19 Sudhir Boyd [facility]tr Consulting Psychiatry 08/15/13 Mall Plant Caretaker Relationship Specialty Start Date End Date Michele Bell DO [address] [place] [address] PCP - General Family Medicine 09/12/23 Cici Welch [address] [place], [place] 367[address] Consulting Epic Director 08/15/13 Smith Magdaleno MD [address] [place] [address] Referring General Surgery 08/23/19 Sudhir Boyd [facility]tr Consulting Psychiatry 08/15/13 Mall Plant Caretaker Relationship Specialty Start Date End Date Michele Bell DO [address] [place] [address] PCP - General Family Medicine 09/12/23 Cici Welch [address] [place] [address] Consulting Epic Director 08/15/13 Smith Magdaleno MD [address] [place] [address] Referring General Surgery 08/23/19 Sudhir Boyd [facility]tr Consulting Psychiatry 08/15/13 Mall Plant Caretaker Relationship Specialty Start Date End Date Michele Bell DO [address] [place] [address] PCP - General Family Medicine 09/12/23 Cici Welch [address] [place] [address] Consulting Epic Director 08/15/13 Smith Magdaleno MD [address] [place] [address] Referring General Surgery 08/23/19 Sudhir Boyd [facility]tr Consulting Psychiatry 08/15/13 Mall Plant Caretaker Relationship Specialty Start Date End Date Michele Bell DO [address] [place] [address] PCP - General Family Medicine 09/12/23 Cici Welch [address] [place] [address] Consulting Epic Director 08/15/13 Smith Magdaleno MD [address] [place], [place] 265791 Referring General Surgery 08/23/19 Sudhir Boyd [facility] Consulting Psychiatry 08/15/13 Mall Plant Caretaker Relationship Specialty Start Date End Date Rowan Barajas [address] [place] [address] (Fax) PCP - General Nurse Practitioner 06/10/[address] [facility] Primary Care Provider 06/09/22 Mall Plant Caretaker Relationship Specialty Start Date End Date Michele Bell DO [address] [place] [address] PCP - General Family Medicine 09/12/23 Cici Welch [address] [facility] [place], [place] 705[address] Consulting Epic Director 08/15/13 Smith Magdaleno MD [address] [facility] [address] [place] [address] Referring General Surgery 08/23/19 Sudhir Boyd [facility] Consulting Psychiatry 08/15/13 Mall Plant Caretaker Relationship Specialty Start Date End Date Michele Bell DO [address] [place] [address] PCP - General Family Medicine 09/12/23 Cici Welch [address] [facility] [place], [place] 275821 Consulting Epic Director 08/15/13 Smith Magdaleno MD [address] [place] [address] Referring General Surgery 08/23/19 Sudhir Boyd [facility] Consulting Psychiatry 08/15/13 Mall Plant Caretaker Relationship Specialty Start Date End Date Rowan Barajas APRN.MORTARMAN [address] [place] [address] PCP - General Family Medicine 08/23/22 09/11/23 Cici Welch [address] [facility] [address], [place] 437[address] Consulting Epic Director 08/15/13 Smith Magdaleno MD [address] [facility] [address] [place] [address] Referring General Surgery 08/23/19 [facility] Counsel[facility] Ctr Consulting Psychiatry 08/15/13 Mall Plant Caretaker Relationship Specialty [place] [address] [place] [address] [phone] PCP - General Internal Medicine 02/28/19 08/22/22 Cici Welch [address] [place], [place] 769871 Consulting Epic Director 08/15/13 Smith Magdaleno MD [address] [facility] [address] [place] [address] Referring General Surgery 08/23/19 Sudhir [facility] Consulting Psychiatry 08/15/13 Mall Plant Caretaker Relationship Specialty Start Date End Date Rowan Barajas [address] [place] [address] PCP - General Nurse Practitioner 06/10/22 Manueladom Valverde [facility] 06/09/22 Mall Plant Caretaker Relationship Specialty Start Date End Date Michele Blel DO [address] [place] [address] PCP - General Family Medicine 09/12/23 Cici Welch [address] [place], [place] 465[address] Consulting Epic Director 08/15/13 Smith Magdaleno MD [address] [phone] Referring General Surgery 08/23/19 [facility] Consulting Psychiatry 08/15/13 Mall Plant Caretaker Relationship Specialty Start Date End Date Rowan Barajas [address] [place] [address] PCP - General Nurse Practitioner 06/10/22 Manuela Valverde [facility] Primary [facility] Provider 06/09/22 Mall Plant Caretaker Relationship Specialty Start Date End Date AhsanMicaela [address] [place], [place] 587001 PCP - General Pediatrics 02/28/22 Mall Plant Caretaker Relationship Specialty Start Date End Date Ahsan Micaela [address] [place] [address] PCP - General Pediatrics 02/28/22 Mall Plant Caretaker Relationship Specialty Start Date End Date Michele Bell DO [address] [facility] [place] [address] PCP - General Family Medicine 09/12/23 Cici Welch [address] [place] [address] Consulting Epic Director 08/15/13 Smith Magdaleno MD [address] [place], [place] [address]871 Referring General Surgery 08/23/19 [facility] Consulting Psychiatry 08/15/13 Mall Plant Caretaker Relationship Specialty Start Date End Date Michele Bell DO 830 [facility] [place] [address] PCP - General Family Medicine 09/12/23 Cici Welch [address] [place], [place] 800821 Consulting Epic Director 08/15/13 Smith Magdaleno MD [address] [place] [address] Referring General Surgery 08/23/19 Sudhir [facility] Consulting Psychiatry 08/15/13 Mall Plant Caretaker Relationship Specialty Start Date End Date Michele Bell DO 830 [facility] [place] [address] PCP - General Family Medicine 09/12/23 Cici Welch [address] [place], [place] 416[address] Consulting Epic Director 08/15/13 Smith Magdaleno MD [address] [place], [place] [address] Referring General Surgery 08/23/19 [facility] Consulting Psychiatry 08/15/13 Mall Plant Caretaker Relationship Specialty Start Date End Date Michele Bell DO [address] [place] [address] PCP - General Family Medicine 09/12/23 Cici Welch [address] [place], [place] [id number] Consulting Epic Director 08/15/13 Smith Magdaleno MD [address] [place] [address] Referring General Surgery 08/23/19 [facility] Consulting Psychiatry 08/15/13 Mall Plant Caretaker Relationship Specialty Start Date End Date Michele Bell DO [address] [facility] [place] [address] PCP - General Family Medicine 09/12/23 Cici Welch [address] [place], [place] [id number] Consulting Epic Director 08/15/13 Smith Magdaleno MD [address] [place] [address] Referring General Surgery 08/23/19 [facility] Consulting Psychiatry 08/15/13 [facility] Plant Caretaker Relationship Specialty Start Date End Date Micaela Foreman MD [address] [place], [place] [id number] PCP - General 12/13/16 [employer] Plant Caretaker Relationship Specialty Start Date End Date Micaela Foreman MD [address] [place], [place] [id number] PCP - General 12/13/16 Mall Plant Caretaker Relationship Specialty Start Date End Date Micaela Foreman MD [address] [place], [place] [phone] PCP General 12/13/16 Mall Plant Caretaker Relationship Specialty Start Date End Date Micaela Foreman MD [address] [place], [place] [phone] PCP General 12/13/16 Mall Plant Caretaker Relationship Specialty Start Date End Date Micaela Foreman MD [address] [place], [place] [id number] [facility] General 12/13/16 Scheduled Active and Recently Administ ered Medications (unrecognized section and content) Medication Order 11/21/2023 11/22/2023 11/23/2023 acetaminophen 1,000 mg tab(s) (TYLENOL) (COMPLETED) 1,000 mg, ORAL, PRE-OP ONCE, 1 dose, On [place] 11/23/23 at 0900, If ordered PRN for pain, patient/guardian may elect to receive this medication for higher pain levels INSTEAD of the opioid, if preferred: Yes, Preprocedure 914 (Given - Provid er: Carlos Gamez RN) BUPivacaine liposome (PF) 1.3 % (13.3 mg/mL) 266 mg injection (EXPAREL) (COMPLETED) 266 mg, INFILTRATION, ONCE, 1 dose, On [place] 11/23/23 at 1000 1224 (Given - Provid er: Mila Marie RN) midazolam (PF) 2 mg injection (VERSED) (COMPLETED) 2 mg, INTRAVENOUS, ONCE, 1 dose, On [place] 11/23/23 at 1200 1223 (Given - Provid er: Mila Marie RN) phenazopyridine 200 mg tab(s) (PYRIDIUM) (COMPLETED) 200 mg, ORAL, PRE-OP ONCE, 1 dose, On [place] 11/23/23 at 0900, Will discolor urine red/orange., Preprocedure 0914 (Given - Provid er: Carlos Gamez RN) promethazine 12.5 mg tab(s) (PHENERGAN) (COMPLETED) 12.5 mg, ORAL, NOW, 1 dose, On [place] 11/23/23 at 0900, Preprocedure 0915 (Given - Provid er: Carlos Gamez RN) scopolamine - REMOVE PATCH(Linked Group 1) EVERY 72 HOURS, Preprocedure, THIS IS USED ONLY TO DOCUMENT PATCH REMOVAL. Use "Remvd Patch" action. 0900 (Due) scopolamine - VERIFY patch(Linked Group 1) EVERY 8 HOURS, Preprocedure, THIS IS USED ONLY TO DOCUMENT THAT THE PATCH IS VERIFIED ON OR OFF PER ORDER. Use "Patch On" or "Patch Off" action. 0900 (Due)1400 (Due) scopolamine 1 mg over 3 days 1 Patch (TRANSDERM-SCOP)(Linked Group 1) 1 Patch, TRANSDERMAL, EVERY 72 HOURS, First dose on Elizabeth 11/23/23 at 0900, Until Discontinued, Apply patch behind ear. Each time a new patch is needed it should be placed behind the alternate ear from the previous patch. Remove old patch. Each 1.5 mg patch delivers 1 mg of scopolamine over 3 days., Preprocedure 0915 (Given - Provid er: Carlos Gamez RN) Continuous Medication Order 11/21/2023 11/22/2023 11/23/2023 lactated ringers iv infusion 5-30 mL/hr, INTRAVENOUS, CONTINUOUS, Starting on [place] 11/23/23 at 0830, Until Mon11/24/23 at 0303, Preprocedure 0830 (Canceled Entry - Provider: Carlos Gamez RN) PRN Medication Order 11/21/2023 11/22/2023 11/23/2023 lidocaine (PF) 10 mg/mL (1 %) 1-2 mg injection (XYLOCAINE) 1-2 mg (0.1-0.2 mL), INTRADERMAL, NEEDED, 1 dose, Starting on Mon11/23/23 at 0829, Until Mon11/24/23 at 0303, See admin instructions, May use prior to starting IV, Preprocedure NaCl 0.9% iv flush bag 20 mL, INTRAVENOUS, NEEDED, Starting on Mon11/23/23 at 0829, Until Mon11/24/23 at 0303, See admin instructions, If no compatible primary is already running, infuse NaCl 0.9% as primary to flush tubing after non-chemotherapy, non-immunotherapy intermittent infusions. Administer at the same rate as intermittent infusion. Select the "Flush Bag" file on smart pump., Preprocedure Linked Groups Order Group 1: scopolamine 1 mg over 3 days 1 Patch (TRANSDERM-SCOP)Jump to med 1 Patch, TRANSDERMAL, EVERY 72 HOURS, First dose on Mon11/23/23 at 0900, Until Discontinued, Apply patch behind ear. Each time a new patch is needed it should be placed behind the alternate ear from the previous patch. Remove old patch. Each 1.5 mg patch delivers 1 mg of scopolamine over 3 days., Preprocedure And scopolamine - REMOVE PATCHJump to med EVERY 72 HOURS, Preprocedure, THIS IS USED ONLY TO DOCUMENT PATCH REMOVAL. Use Remvd Patch" action. And scopolamine - VERIFY patchJump to med EVERY 8 HOURS, Preprocedure, THIS IS USED ONLY TO DOCUMENT THAT THE PATCH IS VERIFIED ON OR OFF PER ORDER. Use "Patch On" or "Patch Off" action. FOR RECORDS PERTAINING TO PATIENTS WHO ARE OR HAVE BEEN ENROLLED IN A CHEMICAL DEPENDENCY/SUBSTANCEABUSE PROGRAM, SOME INFORMATION MAY BE OMITTED. This clinical summary was aggregated from multiple sources. Caution should be exercised in using it in the provision of clinical care. This summary normalizes information from multiple sources, and as a consequence, information in this document may materially change the coding, format and clinical context of patient data. In addition, data may be omitted in some cases. CLINICAL DECISIONS SHOULD BE BASED ON THE PRIMARY CLINICAL RECORDS. [facility]. provides no warranty or guarantee of the accuracy or completeness of information in this document.
[2025-03-09 18:38] LABS: Mucous, Urine 0 SEEN /hpf (<or=2+); Red Blood Cells-Urine 0 SEEN /hpf (0-5)
[2025-03-09] MEDS: 0.9% Normal Saline (500mL Bag) 500 ML 1000 ML IV (18:39)
[2025-03-09 18:43] LABS: Color, Urine Straw (Yellow); Glucose, Dipstick Normal (Normal); Hematocrit 40.0 % (37-47); Hemoglobin 13.3 g/dL (12.0-15.0); Immature Granulocytes Count 0.070 X10^3/uL (0.0-0.0); Ketone-Dipstick Negative (Negative); Leukocyte Esterase-Dipstick Negative /ul (Negative); Mean Corp Hgb Conc 33.3 g/dL (32-36); Mean Corpuscular Volume 81.1 fL (81-99); Mean Platelet Vol. 9.4 fl (6.2-12.0); NRBC Flagged by Analyzer 0 % (0-5); Nitrite-Dipstick Negative (Negative); Occult Blood-Urine Negative /ul (Negative); Platelet Count 358 K/mm3 (150-450); Protein-Dipstick 15 mg/dl (Negative); RBC Distribution Width CV 13.5 % (11.6-14.6); RBC Distribution Width SD 39.1 fl (35.1-43.9); Red Blood Count 4.93 M/mm3 (4.2-5.4); Specific Gravity, Urine 1.010 (1.002-1.030); Urine Bilirubin Dipstick Negative (Negative); White Blood Count 10.4 K/mm3 (4.4-11.0)
[2025-03-09 18:50] LABS: Squamous Epithelial Cells - UA 0-5 SEEN /hpf (5-10)
[2025-03-09 19:00] VITALS: BP 97/58; PULSE 80; RESP 20; O2SAT 95
[2025-03-09 19:33] LABS: Anion Gap 13 (7-18); BUN 10 mg/dL (4-19); BUN/Creat Ratio 11.4 RATIO (10-20); Calcium,Total 9.1 mg/dL (7.6-11.0); Carbon Dioxide 25.5 mmol/L (20.0-29.0); Chloride 102 mmol/L (96-106); Estimated Creatinine Clearance 96.57 ml/min (50-250); Glucose 114 mg/dL (70-99); Potassium 3.2 mmol/L (3.5-5.1); Troponin T High Sensitivity < 6 ng/L (<=14)
[2025-03-09 20:00] VITALS: BP 118/76; PULSE 76; RESP 18; O2SAT 97
[2025-03-09 21:03] LABS: Troponin T High Sens 2 HR < 6 ng/L (<=14)
[2025-03-09 21:31] VITALS: BP 115/91; PULSE 79; RESP 18; TEMP 36.9; O2SAT 99
== END 2025-03-09 21:34 | disposition home or self-care (01) ==
PROVIDERS: Emergency Provider Emergency Medicine; Visit Provider Emergency Medicine
DX: R07.9 Chest pain, unspecified (principal); F31.9 Bipolar disorder, unspecified; R68.83 Chills (without fever); R53.1 Weakness; I10 Essential (primary) hypertension; F17.210 Nicotine dependence, cigarettes, uncomplicated
CPT/HCPCS: 71045; 80048; 81001; 84484; 85025; 87631; 93005; 96361; 96374; 96375; 99285; A4216